=== PATIENT | female | born 1935 | race Caucasian/White ===

== ENCOUNTER 2022-09-08 06:47 | Outpatient (RCR) | payer MEDICARE, OTHER, SELFPAY | END 2022-10-06 23:59 | disposition home or self-care (01) | LOC: MM 06:47 | PROVIDERS: PCP Family Medicine; Visit Provider Internal Medicine | DX: Z51.81 Encounter for therapeutic drug level monitoring (principal); Z79.01 Long term (current) use of anticoagulants; I48.0 Paroxysmal atrial fibrillation | CPT/HCPCS: 85610; G0463 ==

== ENCOUNTER 2022-10-12 09:06 | Outpatient (RCR) | payer MEDICARE, OTHER, SELFPAY | END 2022-11-06 16:59 | disposition home or self-care (01) | LOC: MM 09:06 | PROVIDERS: PCP Internal Medicine; Visit Provider Internal Medicine | DX: Z51.81 Encounter for therapeutic drug level monitoring (principal); Z79.01 Long term (current) use of anticoagulants; I48.91 Unspecified atrial fibrillation | CPT/HCPCS: 85610; G0463 ==

== ENCOUNTER 2022-11-07 09:24 | Outpatient (RCR) | payer MEDICARE, OTHER, SELFPAY | END 2022-12-07 17:35 | disposition home or self-care (01) | LOC: MM 09:24 | PROVIDERS: Visit Provider Internal Medicine | DX: Z51.81 Encounter for therapeutic drug level monitoring (principal); Z79.01 Long term (current) use of anticoagulants; I48.91 Unspecified atrial fibrillation | CPT/HCPCS: 85610; G0463 ==

== ENCOUNTER 2022-11-13 15:06 | Outpatient (OUT) | payer MEDICARE, OTHER, SELFPAY ==
[2022-11-13 15:38] LABS: Basophils Percent Auto 0.5 % (0.2-2.0); Bilirubin Urine NEGATIVE (NEGATIVE); Blood Urine NEGATIVE (NEGATIVE); Clarity Urine CLEAR (CLEAR); Color Urine LT. YELLOW (YELLOW); Eosinophils Absolute Auto 0.1 10^3/uL (0.0-0.7); Eosinophils Percent Auto 0.8 % (0.9-7.0); Glucose Urine UA NEGATIVE (NEGATIVE); Hematocrit 40.4 % (36.0-48.0); Hemoglobin 13.5 g/dL (12.0-16.0); Immature Granulocytes Abs Auto 0.03 10^3/uL (0.00-0.03); Immature Granulocytes Pct Auto 0.5 % (0.0-0.5); Ketones Urine NEGATIVE (NEGATIVE); Leukocyte Esterase Urine NEGATIVE (NEGATIVE); Lymphocytes Percent Auto 16.7 % (20.5-60.0); Mean Corpuscular HGB Conc 33.4 g/dL (29.9-35.2); Mean Corpuscular Volume 95.7 fL (81.0-99.0); Mean Platelet Volume 9.8 fL (9.5-13.5); Monocytes Absolute Auto 0.5 10^3/uL (0.3-0.8); Monocytes Percent Auto 7.5 % (1.7-12.0); Neutrophils Absolute Auto 4.5 10^3/uL (1.4-6.5); Nitrite Urine NEGATIVE (NEGATIVE); Platelet Count 199 10^3/uL (150-450); Protein Urine NEGATIVE (NEG/TRACE); Red Blood Count 4.22 10^6/uL (4.20-5.40); Red Cell Distribution Width 14.6 % (11.0-15.0); Urobilinogen Urine 0.2 EU/dL (0.2-1.0)
[2022-11-13 15:44] LABS: Bacteria Urine NONE SEEN #/HPF (NONE SEEN); Cast Seen? NONE SEEN #/LPF (NONE SEEN); Crystals Seen? None Seen #/HPF (None Seen); Mucus Urine NONE SEEN (NONE SEEN); RBC Urine NONE SEEN #/HPF (0-2); Squamous Epithelial Cell Urine RARE #/LPF (NONE/RARE); Urine Culture Indicated ALREADY ORDERED; WBC Urine NONE SEEN #/HPF (NONE SEEN)
[2022-11-13 16:01] LABS: Alanine Aminotransferase 34 U/L (14-59); Albumin Globulin Ratio 1.2; Albumin Level 4.2 g/dL (3.4-5.0); Alkaline Phosphatase 73 U/L (46-116); Anion Gap 9.9; Aspartate Amino Transferase 29 U/L (15-37); BUN Creatinine Ratio 16.7; Bilirubin Total 0.6 mg/dL (0.2-1.0); Calcium 8.8 mg/dL (8.5-10.1); Carbon Dioxide 30.3 mmol/L (21.0-32.0); Chloride 96 mmol/L (98-107); Estimated GFR (African America 46 (>=60); Estimated GFR (Non-African Ame 38 (>=60); Globulin 3.6 g/dL; Glucose 120 mg/dL (74-106); Potassium 4.2 mmol/L (3.5-5.1); Sodium 132 mmol/L (136-145); Thyroid Stimulating Hormone 6.637 uIU/mL (0.358-3.740); Total Protein 7.8 g/dL (6.4-8.2)
== END 2022-11-13 15:07 | disposition home or self-care (01) ==
PROVIDERS: PCP Family Medicine; Visit Provider Family Medicine
DX: I25.10 Atherosclerotic heart disease of native coronary artery without angina pectoris (principal); N39.0 Urinary tract infection, site not specified; R06.02 Shortness of breath; D64.9 Anemia, unspecified; E55.9 Vitamin D deficiency, unspecified; I11.0 Hypertensive heart disease with heart failure; I50.30 Unspecified diastolic (congestive) heart failure
CPT/HCPCS: 36415; 80053; 81001; 82306; 83540; 83880; 84436; 84443; 84481; 85025; 87086

== ENCOUNTER 2022-11-27 10:53 | Outpatient (REF) | payer MEDICARE, OTHER, SELFPAY ==
[2022-11-27 12:14] LABS: INR 1.39; Prothrombin Time 14.5 sec (9.0-11.6)
== END 2022-11-27 10:54 | disposition home or self-care (01) ==
LOC: LAB 10:53
PROVIDERS: PCP Family Medicine
DX: Z79.01 Long term (current) use of anticoagulants (principal)
CPT/HCPCS: 36415; 85610

== ENCOUNTER 2022-11-29 01:58 | Outpatient (REF) | payer MEDICARE, OTHER, SELFPAY ==
[2022-11-29 18:46] LABS: INR 1.86
== END 2022-11-29 01:59 | disposition home or self-care (01) ==
LOC: LAB 01:58
PROVIDERS: PCP Family Medicine; Visit Provider Family Medicine
DX: Z79.01 Long term (current) use of anticoagulants (principal)
CPT/HCPCS: 36415; 85610

== ENCOUNTER 2022-11-29 07:11 | Outpatient (RCR) | payer MEDICARE, OTHER, SELFPAY ==
--- NOTE | 2022-10-24 15:02 | CR1_ITS ---
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
--- NOTE | 2022-11-22 12:42 | CR1_ITS ---
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
--- NOTE | 2022-12-19 14:32 | CR1_ITS ---
The 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
--- NOTE | 2023-01-16 08:17 | CR1_ITS ---
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
== END 2023-02-27 07:16 | disposition home or self-care (01) ==
LOC: CR 07:11
PROVIDERS: PCP Internal Medicine; Visit Provider Internal Medicine Cardiovascular Disease
DX: I25.10 Atherosclerotic heart disease of native coronary artery without angina pectoris (principal); Z95.5 Presence of coronary angioplasty implant and graft; I42.9 Cardiomyopathy, unspecified
CPT/HCPCS: 93798

== ENCOUNTER 2022-12-01 04:21 | Outpatient (REF) | payer MEDICARE, OTHER, SELFPAY ==
[2022-12-01 11:10] LABS: INR 1.92; Prothrombin Time 19.6 sec (9.0-11.6)
== END 2022-12-01 04:22 | disposition home or self-care (01) ==
LOC: LAB 04:21
PROVIDERS: PCP Family Medicine; Visit Provider Family Medicine
DX: Z79.01 Long term (current) use of anticoagulants (principal)
CPT/HCPCS: 36415; 85610

== ENCOUNTER 2022-12-06 03:27 | Outpatient (REF) | payer MEDICARE, OTHER, SELFPAY ==
[2022-12-06 09:46] LABS: INR 1.87; Prothrombin Time 19.1 sec (9.0-11.6)
== END 2022-12-06 03:28 | disposition home or self-care (01) ==
LOC: LAB 03:27
PROVIDERS: PCP Family Medicine; Visit Provider Family Medicine
DX: Z79.01 Long term (current) use of anticoagulants (principal)
CPT/HCPCS: 36415; 85610

== ENCOUNTER 2022-12-08 10:24 | Outpatient (RCR) | payer MEDICARE, OTHER, SELFPAY | END 2023-01-05 16:53 | disposition home or self-care (01) | LOC: MM 10:24 | PROVIDERS: PCP Family Medicine; Visit Provider Internal Medicine | DX: Z51.81 Encounter for therapeutic drug level monitoring (principal); Z79.01 Long term (current) use of anticoagulants; I48.91 Unspecified atrial fibrillation | CPT/HCPCS: 85610; G0463 ==

== ENCOUNTER 2023-01-08 01:55 | Outpatient (RCR) | payer MEDICARE, OTHER, SELFPAY | END 2023-02-06 17:25 | disposition home or self-care (01) | LOC: MM 01:55 | PROVIDERS: PCP Family Medicine; Visit Provider Internal Medicine | DX: Z51.81 Encounter for therapeutic drug level monitoring (principal); Z79.01 Long term (current) use of anticoagulants; I48.91 Unspecified atrial fibrillation | CPT/HCPCS: 85610; G0463 ==

== ENCOUNTER 2023-01-26 07:34 | Outpatient (RCR) | payer MEDICARE, OTHER, SELFPAY ==
[2023-01-26 13:00] VITALS: BP 150/90; PULSE 60; RESP 20; TEMP 36; O2SAT 97
[2023-01-26 13:33] LABS: Calcium 9.6 mg/dL (8.5-10.1); Estimated GFR (African America 56 (>=60); Estimated GFR (Non-African Ame 46 (>=60)
[2023-01-26] MEDS: DENOSUMAB 60 MG/ML SYRINGE SUBQ (13:44)
== END 2023-01-26 13:49 | disposition home or self-care (01) ==
LOC: INF 07:34
PROVIDERS: PCP Family Medicine; Visit Provider Family Medicine
DX: M81.0 Age-related osteoporosis without current pathological fracture (principal)
CPT/HCPCS: 36415; 82310; 82565; 96372; J0897

== ENCOUNTER 2023-02-07 00:41 | Outpatient (RCR) | payer MEDICARE, OTHER, SELFPAY | END 2023-03-08 16:41 | disposition home or self-care (01) | LOC: MM 00:41 | PROVIDERS: PCP Family Medicine; Visit Provider Internal Medicine | DX: Z51.81 Encounter for therapeutic drug level monitoring (principal); Z79.01 Long term (current) use of anticoagulants; I48.91 Unspecified atrial fibrillation | CPT/HCPCS: 85610; G0463 ==

== ENCOUNTER 2023-03-09 09:54 | Outpatient (RCR) | payer MEDICARE, OTHER, SELFPAY | END 2023-04-06 15:40 | disposition home or self-care (01) | LOC: MM 09:54 | PROVIDERS: PCP Family Medicine; Visit Provider Internal Medicine | DX: Z51.81 Encounter for therapeutic drug level monitoring (principal); Z79.01 Long term (current) use of anticoagulants; I48.91 Unspecified atrial fibrillation | CPT/HCPCS: 85610; G0463 ==

== ENCOUNTER 2023-04-09 01:40 | Outpatient (RCR) | payer MEDICARE, SELFPAY | END 2023-05-09 17:10 | disposition home or self-care (01) | LOC: MM 01:40 | PROVIDERS: PCP Family Medicine; Visit Provider Internal Medicine | DX: Z51.81 Encounter for therapeutic drug level monitoring (principal); Z79.01 Long term (current) use of anticoagulants; I48.0 Paroxysmal atrial fibrillation | CPT/HCPCS: 85610; G0463 ==

== ENCOUNTER 2023-04-20 13:57 | Outpatient (OUT) | payer MEDICARE, SELFPAY ==
--- NOTE | 2023-04-20 14:05 | XR_ITS ---
The [address] [address] Patient Name: MAGGIE CANALES MRN: [id number] date: 1935 Sex: F Assigned Patient Location: [facility] Current Patient Location: [facility] Accession/Order Number: [id number] Exam Date: 04/20/2023 14:15 Report Date: 04/20/2023 15:03 At the request of: LOS CHAUDHARY Procedure: XR lumbar spine 2-3V EXAM: XR lumbar spine 2-3V, XR hip RT 2V w/ pelvis HISTORY: Hip Arthritis, M19.90. Low back pain. COMPARISON: None. TECHNIQUE: 3 views of the lumbar spine were obtained to include AP, lateral, and directed lateral lumbosacral views. FINDINGS: No ribs at the T12 level. Mild depression of the superior endplate of L3 which may be chronic and degenerative in nature, acute or subacute compression fracture would be less likely though difficult to exclude entirely. Correlate clinically. Follow-up as needed. Hxtc-zn-zhuikywz disc space narrowing from T11-T12 to L2-L3 with narrowing at L4-L5 and L5-S1. Mild to moderate anterior spurring at multiple levels. Mild convexity of the lower thoracic and lumbar spine to the left. Findings compatible with vascular calcifications in the left upper quadrant of the abdomen. TECHNIQUE: Two-view right hip and AP view pelvis study was performed with 3 images obtained in total. FINDINGS: Moderate degenerative changes about the right hip joint. Jize-nt-ptantnod degenerative changes about the left hip joint. Stabilizing domonique and pin at the visualized proximal femoral level unremarkable in appearance. Sacroiliac joints appear grossly unremarkable. Alnn-qw-vapcpzcq degenerative changes in the lumbar spine with mild convexity to the left. Soft tissues are grossly within normal limits. XR/XR lumbar spine 2-3V IMPRESSION: Lumbar spine study demonstrates degenerative changes as described. Mild depression of the superior endplate of L3 which may be chronic and degenerative in nature, acute or subacute compression fracture would be less likely though difficult to exclude entirely. Correlate clinically. Follow-up as needed. Right hip and AP view pelvis study demonstrates degenerative and postoperative changes as noted. Follow-up as needed. Electronically authenticated by: DAMIEN JONES Date: 04/20/2023 15:03
--- NOTE | 2023-04-20 14:05 | XR_ITS ---
The [address] [address] Patient Name: MAGGIE CANALES MRN: [id number] date: 1935 Sex: F Assigned Patient Location: [facility] Current Patient Location: [facility] Accession/Order Number: [id number] Exam Date: 04/20/2023 14:15 Report Date: 04/20/2023 15:03 At the request of: LOS CHAUDHARY Procedure: XR hip RT 2V w/ pelvis EXAM: XR lumbar spine 2-3V, XR hip RT 2V w/ pelvis HISTORY: Hip Arthritis, M19.90. Low back pain. COMPARISON: None. TECHNIQUE: 3 views of the lumbar spine were obtained to include AP, lateral, and directed lateral lumbosacral views. FINDINGS: No ribs at the T12 level. Mild depression of the superior endplate of L3 which may be chronic and degenerative in nature, acute or subacute compression fracture would be less likely though difficult to exclude entirely. Correlate clinically. Follow-up as needed. Rjpc-hl-sbaomsza disc space narrowing from T11-T12 to L2-L3 with narrowing at L4-L5 and L5-S1. Mild to moderate anterior spurring at multiple levels. Mild convexity of the lower thoracic and lumbar spine to the left. Findings compatible with vascular calcifications in the left upper quadrant of the abdomen. TECHNIQUE: Two-view right hip and AP view pelvis study was performed with 3 images obtained in total. FINDINGS: Moderate degenerative changes about the right hip joint. Dcqz-mt-qnbdrbvz degenerative changes about the left hip joint. Stabilizing domonique and pin at the visualized proximal femoral level unremarkable in appearance. Sacroiliac joints appear grossly unremarkable. Qqdb-nq-nqitcyie degenerative changes in the lumbar spine with mild convexity to the left. Soft tissues are grossly within normal limits. XR/XR hip RT 2V w/ pelvis IMPRESSION: Lumbar spine study demonstrates degenerative changes as described. Mild depression of the superior endplate of L3 which may be chronic and degenerative in nature, acute or subacute compression fracture would be less likely though difficult to exclude entirely. Correlate clinically. Follow-up as needed. Right hip and AP view pelvis study demonstrates degenerative and postoperative changes as noted. Follow-up as needed. Electronically authenticated by: DAMIEN JONES Date: 04/20/2023 15:03
--- OUTSIDE RECORDS SUMMARY | 2023-04-20 14:06 | XMS_ITS | CCD ---
Author Name Unknown Address [address] [place] [address] Organization [facility] Care Team Providers Care Shipping And Receiving Assistant Name Role Phone JUSTIN BROWN Unavailable Unavailable JUSTIN BROWN Unavailable Unavailable Summer Tidwell Unavailable Unavailable Unavailable HARPREET Tidwell Primary Care Provider [phone] DO Pramod Bess Emergency Provider DO Guillermo Sanders Emergency Provider MD Stephanie Locke Jr Emergency Provider Al MD Nguyễn Askew Admit Provider Al MD Nguyễn Askew Attending Provider MD Kale Ross Attending Provider [phone] DO Matt Servin Other Provider MD Akhil Olivarez Attending Provider MD Doug Montana Attending Provider DO Myron Villarreal Emergency Provider Los Chaudhary Primary Care Physician [phone] HARPREET Tidwell Primary Care Provider MD Akhil Olivarez Attending Provider LYNN Zimmerman Attending Provider Los Chaudhary Unavailable HARPREET Tidwell Breonna Primary Care Provider MD Akhil Olivarez Attending Provider LYNN Zimmerman Attending Provider DR LOS MEANS Primary Care Unavailable FAWWAD, REIS H Admitting Unavailable FAWWAD, REIS H Attending Unavailable FAWWAD, REIS H Attending Unavailable YAW, SUMMER Primary Care Unavailable FAWWAD, REIS H Admitting Unavailable FAWWAD, REIS H Attending Unavailable YAW, SUMMER Primary Care Unavailable FAWWAD, REIS H Admitting Unavailable HOY ., DR MADISON Admitting Unavailable HOY ., DR MADISON Attending Unavailable HOY ., DR MADISON Consulting Unavailable YAW, SUMMER Primary Care Unavailable ALAMO-JAMES, MICKEY Admitting Unavailable HOY ., DR MADISON Primary Care Unavailable CALLY-JAMES, MICKEY Attending Unavailable CALLY-JACOB, MICKEY Consulting Unavailable HOY ., DR MADISON Attending Unavailable HOY ., DR MADISON Admitting Unavailable YAW, SUMMER Primary Care Unavailable YAW, SUMMER Admitting Unavailable YAW, SUMMER Attending Unavailable YAW, SUMMER Consulting Unavailable YAW, SUMMER Primary Care Unavailable FAWWAD, REIS H Attending Unavailable YAW, SUMMER Primary Care Unavailable FAWWAD, REIS H Admitting Unavailable YAW, SUMMER Primary Care Unavailable FAWWAD, REIS H Attending Unavailable FAWWAD, REIS H Admitting Unavailable FAWWAD, REIS H Admitting Unavailable FAWWAD, REIS H Attending Unavailable YAW, SUMMER Primary Care Unavailable FAWWAD, REIS H Attending Unavailable YAW, SUMMER Primary Care Unavailable FAWWAD, REIS H Admitting Unavailable YAW, SUMMER Primary Care Unavailable FAWWAD, REIS H Attending Unavailable FAWWAD, REIS H Admitting Unavailable FAWWAD, REIS H Admitting Unavailable HOY ., DR MADISON Primary Care Unavailable FAWWAD, REIS H Attending Unavailable YAW, SUMMER Primary Care Unavailable FAWWAD, REIS H Attending Unavailable FAWWAD, REIS H Admitting Unavailable HOY ., DR MADISON Admitting Unavailable HOY ., DR MADISON Attending Unavailable HOY ., DR MADISON Consulting Unavailable YAW, SUMMER Primary Care Unavailable HOY ., DR MADISON Admitting Unavailable YAW, SUMMER Primary Care Unavailable HOY ., DR MADISON Attending Unavailable FAWWAD, REIS H Attending Unavailable YAW, SUMMER Primary Care Unavailable FAWWAD, REIS H Admitting Unavailable YAW, SUMMER Primary Care Unavailable YAW, SUMMER Admitting Unavailable YAW, SUMMER Attending Unavailable YAW, SUMMER Consulting Unavailable [id number], [id number] Attending Unavailable Deidre, Dr. Los Carr Primary Care Unavail able Yaw, BILL COLLECTOR-C Summer Breonna Primary Care Provider [phone] DO Pearl Michel Attending Provider MD Los Chaudhary Primary Care Provider [phone] DO Philip Thompson Emergency Provider MD Jamie Hathaway Admit Provider MD Jamie Hathaway Attending Provider DO Philip molina Emergency Provider MD Jamie Hathaway Admit Provider [phone] MD Danilo Drummond Attending Provider MD Akhil Olivarez Attending Provider Los Chaudhary MD Primary Care Provider [phone] Dr. Akhil Michel Attending Unava ilable Deidre, Dr. Los Carr Primary Care Unavail able Deidre, Dr. Los Carr Primary Care Unavail able Jacob, MsRadha Alamo Attending Jamari James, Ms. Mickey Alamo Referring Jamari Chaudhary, Dr. Los Carr Primary Care Unavail able Sher ELLIOTT, Dr. Akhil Higginbotham Attending Unavailable McGuinn II, Dr. Akhil Higginbotham Referring Unavailable Deidre, Dr. Los Carr Primary Care Unavail able Sher ELLIOTT, Dr. Akhil Higginbotham Attending Unavailable Sher ELLIOTT, Dr. Akhil Higginbotham Referring Unavailable James, MsRadha Alamo Attending Jamari James, Ms. Mickey Alamo Referring Unavai campbellle Deidre, Dr. Los Carr Primary Care Unavail able McGuinn II, Dr. Akhil Higginbotham Attending Unavailable McGuinn II, Dr. Akhil Higginbotham Referring Unavailable Hoy, Dr. Los Carr Primary Care Unavail able McGuinn II, Dr. Akhil Higginbotham Attending Unavailable McGuinn II, Dr. Akhil Higginbotham Referring Unavailable Honhi, Dr. Los Carr Primary Care Unavail able McGuinn II, Dr. Akhil Higginbotham Attending Unavailable McGuinn II, Dr. Akhil Higginbotham Referring Unavailable Hoy, Dr. Los Carr Primary Care Unavail able Deidre, Dr. Los Carr Primary Care Unavail able Hoy, Dr. Los Carr Primary Care Unavail able Deidre, Dr. Los Carr Primary Care Unavail able McGuinn II, Dr. Akhil Higginbotham Attending Unavailable Deidre, Dr. Los Carr Primary Care Unavail able Deidre, Dr. Los Carr Primary Care Unavail able Deidre, Dr. Los Carr Primary Care Unavail able Anand, Dr. Akhil Boyer Attending Unava ilable Deidre, Dr. Los Carr Primary Care Unavail able Deidre, Dr. Los Carr Primary Care Unavail able MD Los Chaudhary Primary Care Provider [phone] DO Philip Thompson Emergency Provider [phone] MD Jamie Hathaway Admit Provider [phone] MD Danilo Drummond Attending Provider MD Akhil Olivarez Attending Provider Los Chaudhary MD Primary Care Provider MICKEY JAMES Attending Unavailable LOS CHAUDHARY Primary Care Unavailable Jamie Hathaway Admitting Unavailable Ashely Arguelles Consulting Unavailable Los Chaudhary Primary Care Unavailable Danilo Drummond Attending Unavailable Pearl Michel Consulting Unavailable Bg Nation Consulting Unavailable Akhil Olivarez Consulting Unavail able Millie Drew Consulting Unavailable Lyle Lane Consulting Unavailab Mickey Banuelos Consulting Unavailable Pretty Cheema Consulting Unavailable Joanne Barnes Consulting Unavailab Leslye Barron Consulting Unavailable Joanne Montes Consulting Unavailable Patricia Lawson Consulting Unavailable Pearl Michel Admitting Unavailable Pearl Michel Attending Unavailable Sumany, Los M Primary Care Unavailable Akhil Olivarez Attending Unavail able [place], Los M Primary Care Unavailable McGuinnAkhil Admitting Unavail able Yaw, Smumer Breonna Primary Care Unavailable Akhil Olivarez Admitting Unavail able Akhil Olivarez Attending Unavail able Elizabeth Zimmerman Admitting Unavailab le Elizabeth Zimmerman Attending Unavailab le Yaw, Summer Ravi Primary Care Unavailable Hoy, Los M Primary Care Unavailable McGuinAkhil avitia Admitting Unavail able Akhil Olivarez Attending Unavail able Pearl Michel Admitting Unavailable AnandPearl Attending Unavailable Hoy, Los M Primary Care Unavailable REFERRAL, SELF Admitting Unavailable REFERRAL, SELF Attending Unavailable REFERRAL, SELF Referring Unavailable Los Chaudhary Consulting Unavailable MD Los Chaudhary Consulting Unavailable SHWETA SOL Attending Unavailable SHWETA SOL Referring Unavailable HOY, LOS M Primary Care Unavailable SHWETA SOL Referring Unavailable HOY, LOS M Primary Care Unavailable HOY, LOS M Primary Care Unavailable SHWETA SOL Attending Unavailable Allergies Allergy Classification Reported Allergen(s) Allergy Type Date of Onset Reaction(s) Facility (20 sources) ibuprofen; Translations: [ibuprofen] Drug Allergy 3 Unknown (qualifier value), Unknown, [facility] Repository (20 sources) Hmg-Coa Reductase Inhibitors (Statins); Translations: [Statins] Allergy to drug (finding) Myalgia, Other [facility] Repository (20 sources) Ibuprofen; Translations: [Motrin TABS] Drug Allergy Hives [facility] 600 DO Work Phone: (20 sources) Beta-Adrenergic Germán; Translations: [Beta Adrenergic Blockers] Allergy to drug (finding) Bradycardia [facility] [facility] 250 DO Work Phone: (2 sources) HMG-CoA reductase inhibitor; Translations: [statins] Drug allergy Walking disability (finding) [facility] (2 sources) Ibuprofen; Translations: [Motrin] Drug Allergy 2 [facility] Repository (5 sources) HMG-CoA reductase inhibitor; Translations: [PQUJOZX-IAI-AY A REDUCTASE INHIBITORS] Drug Intolerance 3 Other: See Comments, Myalgia, Other [facility] (2 sources) beta-Blocking agent; Translations: [BETA-BLOCKERS (BETA-ADRENERGI C BLOCKING AGTS)] Drug Allergy [address] [facility] Medications Current Medications Medication Drug Class(es) Dates Sig (Normalized) Sig (Original) 8 hr acetaminophen 650 mg extended release oral tablet (20 sources) Start: 11-24-2022 take 650 mg by mouth twice daily Acetaminophen Active 650 MG PO Twice daily 60 November 24, 2022 9:51am Start: 09-22-2022 End: 11-24-2022 take 1300 mg by mouth twice daily Acetaminophen Discontinued 1300 MG PO Twice daily September 21, 2022 11:00pm November 24, 2022 9:53am Start: 04-03-2017 End: 09-22-2022 take 650 mg by mouth every four hours Acetaminophen Discontinued 650 MG PO Q4H 0 April 03, 2017 12:00am September 22, 2022 8:04am amiodarone hydrochloride 200 mg oral tablet (20 sources) Antiarrhythmic Start: 11-23-2022 End: 11-23-2022 take 100 mg by mouth once daily Amiodarone Active 100 MG PO Daily 30 November 24, 2022 9:51am Start: 07-07-2022 take 1 tablet by rosibel th once daily amiodarone (Pacerone) 200 mg tablet Indications: Paroxysmal atrial fibrillation (CMS/HCC) Take 1 tablet (200 mg) by mouth once daily. 90 tablet 1 01/23/2023 Active Start: 04-14-2022 take 0.5 tablet by m outh twice daily Amiodarone HCl - 200 MG Oral Tablet TAKE 1/2 TABLET TWICE DAILY Quantity: 90 Refills: 1 Ordered: 14-Apr-2022 Akhil Olivarez MD Start : 14-Apr-2022 Active Start: 01-10-2022 End: 11-24-2022 take 100 mg by mouth twice daily Amiodarone Discontinued 100 MG PO Twice daily January 09, 2022 11:00pm November 24, 2022 9:53am Start: 10-28-2021 End: 01-10-2022 take 200 mg by mouth twice daily Amiodarone Discontinued 200 MG PO Twice daily October 27, 2021 11:00pm January 10, 2022 4:48pm Start: 03-01-2021 take 0.5 tablet by m outh once daily Amiodarone HCl - 200 MG Oral Tablet take 1/2 tablet by mouth daily Quantity: 45 Refills: 1 Ordered: 02-Mar-2021 Akhil Olivarez MD Start : 01-Mar-2021 Active take 0.5 tablet by m outh twice daily Amiodarone HCl - 200 MG Oral Tablet TAKE 0.5 TABLET Twice daily Quantity: 0 Refills: 0 Ordered: 07-Feb-2022 DO Active Comment on above: Take 200 mg by mouth . apple cider vinegar 500 mg oral tablet (14 sources) Start: 11-26-2019 take 500 mg by mouth once daily Apple Cider Vinegar Active 500 MG PO Daily November 25, 2019 11:00pm ascorbic acid 1000 mg oral tablet (20 sources) Vitamin C Start: 09-22-2022 take 2 tablets by mouth twice daily Ascorbic Acid (Vitamin C) (Vitamin C) 1,000 mg Tablet Active 2000 MG PO Twice daily September 21, 2022 11:00pm Start: 11-26-2019 End: 09-22-2022 Ascorbic Acid (Vitamin C) (V itamin C) 500 mg tablet Discontinued 4000 MG PO November 26, 2019 3:18pm September 22, 2022 8:07am Start: 04-03-2017 End: 11-26-2019 take 1 tablet by mouth once daily Ascorbic Acid (Vitamin C) (Vitamin C) 500 mg Tablet Discontinued 500 MG PO Daily 0 April 03, 2017 12:00am November 26, 2019 3:18pm aspirin 81 mg chewable tablet (20 sources) Platelet Aggregation Inhibitor, Nonsteroidal Anti-inflammatory Drug Start: 02-26-2023 take 1 tablet by mouth two times weekly aspirin 81 mg chewable tablet Indications: Arteriosclerosis of coronary artery Take one tablet by mouth twice a week 30 tablet 11 02/26/2023 Active Start: 09-22-2022 take 81 mg by mouth two times weekly Aspirin Active 81 MG PO Twice a Week September 21, 2022 11:00pm Start: 10-25-2021 End: 09-22-2022 take 81 mg by mouth two times weekly Aspirin Discontinued 81 MG PO Twice a Week October 24, 2021 11:00pm September 22, 2022 8:07am 2X WEEKLY, SUNDAY AND SUNDAY Start: 10-25-2021 take 81 mg by mouth every week Aspirin Active 81 MG PO As Directed October 25, 2021 12:00am 2X WEEKLY, SUNDAY AND SUNDAY Start: 10-30-2018 End: 10-25-2021 take 1 mg by mouth once daily aspirin 325 mg Tab mg ta b(s), Oral, Daily, Refills(s) 0 Start Date: 10/30/18 Status: Ordered Start: 09-18-2018 take 1 tablet by rosibel th once daily aspirin 325 mg Oral EC Tab 325 mg = 1 tab(s), Oral, Daily, Refills(s) 0 Start Date: 09/18/18 Status: Ordered Aspirin EC 81 MG TBEC TAKE 1 TABLET DAILY TWICE WEEKLY. Quantity: 90 Refills: 3 Ordered: 28-Nov-2021 Akhil Olivarez MD Active Calcium (2 sources) Phosphate Binder, Calcium Start: 10-30-2018 calcium 500 mg tablet mg tab(s), Chewed, Daily, Refills(s) 0 Start Date: 10/30/18 Status: Ordered calcium carbonate 1500 mg oral tablet (20 sources) Start: 11-26-2019 take 1 tablet by mouth twice daily Calcium Carbonate (Calcium 600) 600 mg calcium (1,500 mg) Tablet Active 600 MG PO Twice daily November 25, 2019 11:00pm Calcium 600 MG T ABS TAKE 2 TABLET Daily Quantity: 0 Refills: 0 Ordered: 05-Jul-2022 DO Active Calcium 600 MG T ABS TAKE 1 TABLET DAILY. Quantity: 0 Refills: 0 Ordered: 15-Apr-2021 DO Active Jvbrkqnur-Lrbutswe-Oeu-Hyalu r (Joint Health) 40-10-5-3.3 mg Tablet (6 sources) Start: 09-22-2022 take 1 tablet by mouth once daily Khidghdot-Isynrrup-Qtc-Hyalur (Joint Health) 40-10-5-3.3 mg Tablet Active 1 TAB PO Daily September 21, 2022 11:00pm Start: 09-22-2022 take 1 tablet by rosibel th once daily Synzwdbdp-Zlqbtdlx-Myj-Hyalur (Joint a [facility]) 40-10-5-3.3 mg Tablet Active 1 TAB PO Daily September 22, 2022 12:00am carvedilol 6.25 mg oral tablet (20 sources) alpha-Adrenergic Germán, beta-Adrenergic Germán Start: 03-14-2017 End: 11-26-2019 take 12.5 mg by mouth twice daily Carvedilol Discontinued 12.5 MG PO Twice daily 0 April 03, 2017 12:00am November 26, 2019 3:14pm Start: 10-29-2012 take 1 mg by mouth twice daily Coreg 6.25 mg Tab mg tab(s), Oral, BID, Refills(s) 0 Start Date: 09/18/18 Status: Ordered Comment on above: Take 1 tablet by rosibel twice daily. cholecalciferol 0.05 mg oral tablet (20 sources) Vitamin D Start: 11-26-19 take 1 tablet by mouth once daily Cholecalciferol (Vitamin D3) (Vitamin D3) 50 mcg (2,000 unit) Tablet Active 50 MCG PO Daily November 25, 2019 11:00pm take 1 capsule by mouth once shelly ly cholecalciferol (Vitamin D-3) 50 mcg (2,000 unit) capsule Take 1 capsule (50 mcg) by mouth once daily. 0 Active clindamycin 300 mg oral capsule (3 sources) Lincosamide Antibacterial Start: 11-23-2022 take 600 mg by mouth three times daily Clindamycin Hcl Active 600 MG PO Three times daily 12 2 November 22, 2022 11:00pm clopidogrel 75 mg oral tablet (13 sources) P2Y12 Platelet Inhibitor Start: 09-25-2022 Clopidogrel (Plavix) 75 mg tablet Active 75 MG PO Daily 90 September 24, 2022 11:00pm Discontinue Brilinta after 30 days and then initiate clopidogrel daily cobamamide 0.1 mg / vitamin b12 5 mg sublingual tablet (5 sources) Vitamin B12 Start: 09-25-2022 Cyanocobalamin -Cob amamide (B12) 5,000-100 mcg Lozenge Active 1 LOZENGE LOZENGE Daily September 24, 2022 11:00pm Start: 09-25-2022 Cyanocobalamin -Cobamamide (B12) 5,000-100 mcg Lozenge Active 1 LOZENGE SUBLINGUAL Daily September 25, 2022 12:00am digoxin 0.125 mg oral tablet (20 sources) Cardiac Glycoside Start: 09-18-2018 take 1 tablet by mouth once daily digoxin 125 mcg (0.125 mg) Tab microgram tab(s), Oral, Daily, Refills(s) 0 Start Date: 09/18/18 Status: Ordered Start: 03-14-2017 End: 01-10-2022 take 125 ug by mouth once daily Digoxin Discontinued 125 MCG PO Daily 0 April 03, 2017 12:00am January 10, 2022 4:50pm Comment on above: Take 0.125 mg by rosibel th. docosahexaenoic acid 120 mg / eicosapentaenoic acid 180 mg oral capsule (20 sources) take 1 capsule by mouth once daily fish oil concentrate ([place]-3) 120-180 mg capsule Take 1 capsule (1 g) by mouth once daily. 0 Active take 1 capsule by mouth once shelly ly Fish Oil 1000 MG Oral Capsule TAKE 1 CAPSULE Daily Quantity: 0 Refills: 0 Ordered: 05-Jul-2022 DO Active take 1 capsule by mouth twice da amber Fish Oil 1000 MG Oral Capsule Take 1 capsule twice daily Quantity: 0 Refills: 0 Ordered: 21-Sep-2021 DO Active oxyquinoline sulfate 0.50910 mg/mg / sodium dodecyl sulfate 0.0001 mg/mg vaginal gel (2 sources) Start: 02-20-2019 Trimo-Beal 0.025% vaginal gel with applicator See Instructions, 1 tube(s), Refill(s) 2, Use with cleaning of pessary, [id number] Start Date: 02/20/19 Status: Ordered Fish Oils (2 sources) Start: 10-30-2018 Fish Oil Oral, Refill(s) 0 Start Date: 10/30/18 Status: Ordered hydroCHLOROthiazide 12.5 mg / lisinopril 10 mg oral tablet (16 sources) Thiazide Diuretic, Angiotensin Converting Enzyme Inhibitor Start: 09-18-2018 take 1 tablet by mouth once daily hydrochlorothiazid e-lisinopril 12.5 mg-10 mg Tab 1 tab(s), Oral, Daily, Refill(s) 0 Start Date: 09/18/18 Status: Ordered Start: 03-14-2017 End: 04-03-2017 take 1 tablet by mouth once daily Lisinopril-Hydrochlorothiazide Discontin ued 1 TAB PO Daily March 14, 2017 12:00am April 03, 2017 7:39am 24 hr isosorbide mononitrate 60 mg extended release oral tablet (20 sources) Nitrate Vasodilator Start: 09-22-2022 take 60 mg by mouth once daily Isosorbide Mononitrate Active 60 MG PO Daily September 21, 2022 11:00pm Start: 07-05-2022 take 1 tablet by rosibel th once daily Isosorbide Mononitrate ER 30 MG Oral Tablet Extended Release 24 Hour TAKE 1 TABLET DAILY. Quantity: 90 Refills: 3 Ordered: 02-Aug-2022 [place] Jacob BAILEY-LAST IRONERMickey Start : 05-Jul-2022 Active when ready for next refill will get 90 days lisinopril 10 mg oral tablet (20 sources) Angiotensin Converting Enzyme Inhibitor Start: 09-01-2022 take 10 mg by mouth once daily Lisinopril Active 10 MG PO Daily September 21, 2022 11:00pm Start: 10-28-2021 End: 09-22-2022 take 2.5 mg by mouth once daily Lisinopril Discontinue d 2.5 MG PO Daily October 27, 2021 11:00pm September 22, 2022 8:09am Start: 04-03-2017 End: 10-28-2021 take 10 mg by mouth once daily Lisinopril Discontinued 10 MG PO Daily 0 April 03, 2017 12:00am October 28, 2021 1:10pm Start: 10-29-2012 take 2 tablets by mo mah once daily lisinopril 5 mg tablet Take 10 mg by mouth once daily. 0 10/29/2012 Active Comment on above: Take 10 mg by mouth once daily. mineral oil 0.2 mg/mg / petrolatum 0.8 mg/mg ophthalmic ointment (6 sources) Start: 09-22-2022 White Petrolatum-Mineral Oil (Soothe Night Time Lubricant) 80-20 % Ointment Active 1 APPLIC EYE-LEFT Daily September 21, 2022 11:00pm Multivitamin preparation (9 sources) Start: 01-10-2022 take 1 tablet by mouth once daily Multivitamin Active 1 TAB PO Daily January 09, 2022 11:00pm Start: 01-10-2022 take 1 tablet by rosibel th once daily Multivitamin Active 1 TAB PO Daily January 10, 2022 12:00am nitroglycerin 0.4 mg sublingual tablet (20 sources) Nitrate Vasodilator Start: 06-29-2022 Nitroglyce rin Active 0.4 MG SUBLINGUAL As Directed September 21, 2022 11:00pm Start: 06-27-2022 Nitroglycerin 0.4 MG Sublingual Tablet Sublingual TAKE DIRECTED. Quantity: 25 Refills: 11 Ordered: 29-Jun-2022 Akhil Olivarez MD Start : 27-Jun-2022 Active nortriptyline 25 mg oral capsule (20 sources) Tricyclic Antidepressant Start: 09-25-2022 take 25 mg by mouth once daily Nortriptyline Active 25 MG PO Daily September 24, 2022 11:00pm Start: 09-18-2018 take 25 mg by mouth once daily nortriptyline 25 mg, Oral, Daily, Refills(s) 0 Start Date: 09/18/18 Status: Ordered Start: 03-14-2017 End: 09-22-2022 take 25 mg by mouth once daily at bedtime Nortriptyline Discontinued 25 MG PO Daily at bedtime 0 April 03, 2017 12:00am September 22, 2022 8:09am [place] 0-Egn-Was-Fish Oil (Fish Oil) 1,000 mg (120 mg-180 mg) Capsule (14 sources) Start: 11-26-2019 take 1 capsule by mouth once daily [place] 8-Rac-Ltj-Fish Oil (Fish Oil) 1,000 mg (120 mg-180 mg) Capsule Active 1 CAP PO Daily November 25, 2019 11:00pm Start: 11-26-2019 take 1 capsule by [facility] once daily [place] 6-Onp-Efw-Fish Oil (Fish Oil) 1,000 mg (120 mg-180 mg) Capsule Active 1 CAP PO Daily November 26, 2019 12:00am Start: 11-26-2019 take 1 capsule by mo ut twice daily [place] 9-Scu-Ipw-Fish Oil (Fish Oil) 1,000 mg (120 mg-180 mg) Capsule Active 1 CAP PO Twice daily November 25, 2019 11:00pm Start: 11-26-2019 take 1 capsule by [facility] twice daily [place] 6-Aog-Iik-Fish Oil (Fish Oil) 1,000 mg (120 mg-180 mg) Capsule Active 1 CAP PO Twice daily November 26, 2019 12:00am pantoprazole 20 mg delayed release oral tablet (3 sources) Proton Pump Inhibitor Start: 11-24-2022 take 1 tablet by mouth once daily Pantoprazole (Protonix) 20 mg tablet,delayed release (DR/EC) Active 20 MG PO Daily 60 November 23, 2022 11:00pm Selenium (14 sources) Start: 11-26-2019 take 100 ug by mouth once daily Selenium Active 100 MCG PO Daily November 25, 2019 11:00pm Start: 11-26-2019 take 100 ug by mouth once thomas y Selenium Active 100 MCG PO Daily November 26, 2019 12:00am Selenium (2 sources) Start: 10-30-2018 selenium micro gram, Oral, Daily, Refills(s) 0 Start Date: 10/30/18 Status: Ordered torsemide 10 mg oral tablet (20 sources) Loop Diuretic Start: 07-19-2022 take 10 mg by mouth once daily Torsemide Active 10 MG PO Daily September 21, 2022 11:00pm Start: 11-26-2019 End: 09-22-2022 torsemide (DEMADEX) 5 mg tab let Take 5 mg by mouth. 0 11/26/2019 Active take 2 tablets by ok ut once daily in the morning Torsemide 5 MG Oral Tablet TAKE 2 TABLETS EVERY MORNING DAILY. Quantity: 0 Refills: 0 Ordered: 01-Jun-2022 DO Active Comment on above: Take 5 mg by mouth. vitamin B12 (3 sources) Vitamin B12 Start: 10-30-2018 Vitamin B12 Re fills(s) 0 Start Date: 10/30/18 Status: Ordered take 1 tablet by mouth once thomas y cyanocobalamin (Vitamin B-12) 100 mcg tablet Take 1 tablet (100 mcg) by mouth once daily. 0 Active Vitamin B6 (2 sources) Start: 10-30-2018 Vitamin B6 Shelly ly, Refills(s) 0 Start Date: 10/30/18 Status: Ordered Vitamin D3 (2 sources) Start: 10-30-2018 Vitamin D3 Ref ills(s) 0 Start Date: 10/30/18 Status: Ordered vitamin e 180 mg oral capsule (16 sources) Start: 11-26-2019 take 800 [IU] by mouth once daily Vitamin E Active 800 UNIT PO Daily November 25, 2019 11:00pm Start: 10-30-2018 vitamin E Oral , Daily, Refills(s) 0 Start Date: 10/30/18 Status: Ordered warfarin sodium 6 mg oral tablet (20 sources) Vitamin K Antagonist Start: 11-17-2022 take 3 mg by mouth once Warfarin Active 0 .ROUTE .COMPLEX November 16, 2022 11:00pm 3 mg orally EVERY SUNDAY, SUNDAY, SUNDAY AND SUNDAY Start: 11-17-2022 End: 11-17-2022 Warfarin Discontinued MG TAB LET November 16, 2022 11:00pm November 17, 2022 6:48pm Start: 07-23-2022 warfarin (COUM MATY) 6 mg tablet Take 2.5 mg by mouth. 0 07/23/2022 Active Start: 10-25-2021 End: 09-22-2022 take 6 mg by mouth once Warfarin Active 6 MG PO ever y Sunday, Sunday, and Wednesday September 21, 2022 11:00pm take 1 tablet by mouth once warf angus (Coumadin) 3 mg tablet Take 1 tablet (3 mg) by mouth see administration instructions. Per the [facility] 0 Active Comment on above: Take 2.5 mg by mouth . Completed/Discontinued Medications Medication Drug Class(es) Dates Sig (Normalized) Sig (Original) acetaminophen 325 mg / oxyCODONE hydrochloride 5 mg oral tablet (20 sources) Opioid Agonist Start: 03-18-2017 End: 04-03-2017 take 1 tablet by mouth every six hours as needed Oxycodone-Acetamino phen Discontinued 1 - 2 TAB PO Q6H March 18, 2017 10:19am April 03, 2017 7:39am 1-2 every 6 hours as needed amitriptyline hydrochloride 25 mg oral tablet (2 sources) Tricyclic Antidepressant Start: 10-22-2012 take 1 tablet by mouth once daily at bedtime AMITRIPTYLINE 25 mg tablet Take 25 mg by mouth daily at bedtime. 0 10/22/2012 Active Comment on above: Take 25 mg by mouth daily at bedtime. amLODIPine 5 mg oral tablet (20 sources) Dihydropyridine Calcium Channel Germán Start: 10-25-2021 End: 09-22-2022 take 1 tablet by mouth once daily amLODIPine (NORVASC) 5 mg tablet Take 5 mg by mouth once daily. 0 08/08/2022 Active Comment on above: Take 5 mg by mouth o nce daily. calcium carbonate 1250 mg / cholecalciferol 200 unt oral tablet (14 sources) Vitamin D Start: 04-03-2017 End: 11-26-2019 take 1 tablet by mouth twice daily Calcium Carbonate-Vitamin D3 (Oyster Shell Calcium-Vit D3) 500 mg(1,250mg) -200 unit Tablet Discontinued 1 TAB PO Twice daily 0 April 03, 2017 12:00am November 26, 2019 3:17pm cephalexin 500 mg oral capsule (9 sources) Cephalosporin Antibacterial Start: 01-10-2022 End: 09-22-2022 take 500 mg by mouth twice daily Cephalexin Discontinued 500 MG PO Twice daily 26 01January 09, 2022 11:00pm September 22, 2022 8:08am colestipol hydrochloride 1000 mg oral tablet (3 sources) Bile Acid Sequestrant Start: 11-23-2022 End: 11-23-2022 take 1 g by mouth once daily Colestipol Discontinued 1 GM PO Daily November 22, 2022 11:00pm November 23, 2022 4:42pm cyclobenzaprine hydrochloride 5 mg oral tablet (14 sources) Muscle Relaxant Start: 04-03-2017 End: 11-26-2019 take 5 mg by mouth every eight hours Cyclobenzaprine Discontinued 5 MG PO Q8H 0 April 03, 2017 12:00am November 26, 2019 3:12pm diphenhydrAMINE hydrochloride 25 mg oral capsule (14 sources) Histamine-1 Receptor Antagonist Start: 04-03-2017 End: 11-26-2019 take 25 mg by mouth every six hours Diphenhydramine Hcl Discontinued 25 MG PO Q6H 0 April 03, 2017 12:00am November 26, 2019 3:14pm docusate sodium 100 mg oral capsule (14 sources) Start: 04-03-2017 End: 11-26-2019 take 100 mg by mouth twice daily Docusate Sodium Discontinued 100 MG PO Twice daily 0 April 03, 2017 12:00am November 26, 2019 3:12pm erythromycin 0.005 mg/mg ophthalmic ointment (20 sources) Macrolide, Macrolide Antimicrobial Start: 01-10-2022 End: 09-22-2022 Erythromycin Discontinued 1 APPLIC OPHTHALMIC Three times daily January 10, 2022 4:45pm September 22, 2022 8:09am Start: 10-25-2021 End: 01-10-2022 Erythromycin Discontinued 1 APPLIC OPHTHALMIC Q6H 3.5 October 24, 2021 11:00pm January 10, 2022 4:46pm heparin sodium, porcine 5000 unt/ml injectable solution (14 sources) Unfractionated Heparin, Anti-coagulant Start: 04-03-2017 End: 11-26-2019 inject 5000 [IU] by subcutaneous injection every twelve hours Heparin (Porcine) Discontinued 5000 UNIT SUBCUT Every 12 hours 0 April 03, 2017 12:00am November 26, 2019 3:11pm hydroCHLOROthiazide 12.5 mg oral tablet (14 sources) Thiazide Diuretic Start: 04-03-2017 End: 10-25-2021 take 12.5 mg by mouth once daily Hydrochlorothiazide Discontinued 12.5 MG PO Daily 0 April 03, 2017 12:00am October 25, 2021 10:43am levoFLOXacin 750 mg oral tablet (14 sources) Quinolone Antimicrobial Start: 03-18-2017 End: 03-25-2017 take 750 mg by mouth every twenty-four hours Levofloxacin Discontinued 750 MG PO Q24H 7 7 March 18, 2017 12:00am March 25, 2017 12:02am levothyroxine sodium 0.05 mg oral tablet (2 sources) l-Thyroxine Start: 01-01-2023 take 1 tablet by mouth once daily Levothyroxine Sodium 50 MCG Oral Tablet take 1 tablet by mouth once daily Quantity: 90 Refills: 3 Ordered: 01-Jan-2023 Akhil Oilvarez MD Start : 01-Jan-2023 Active meclizine hydrochloride 25 mg oral tablet (13 sources) Antiemetic Start: 10-29-2021 End: 09-22-2022 take 25 mg by mouth every eight hours Meclizine Discontinued 25 MG PO Q8H 30 October 28, 2021 11:00pm September 22, 2022 8:09am over the counter Multivitamin With Folic Acid (Thera) 400 mcg Tablet (14 sources) Start: 04-03-2017 End: 01-10-2022 take 1 tablet by mouth once daily Multivitamin With Folic Acid (Thera) 400 mcg Tablet Discontinued 1 TAB PO Daily 0 April 03, 2017 12:00am January 10, 2022 4:51pm Start: 04-03-2017 End: 01-10-2022 take 1 tablet by mouth once daily Multivitamin With Folic Acid (Thera) 400 mcg Tablet Discontinued 1 TAB PO Daily 0 April 03, 2017 1:00am January 10, 2022 5:51pm Start: 04-03-2017 take 1 tablet by rosibel th once daily Multivitamin With Folic Acid (Thera) 400 mcg Tablet Active 1 TAB PO Daily 0 April 03, 2017 1:00am nitrofurantoin, macrocrystals 25 mg / nitrofurantoin, monohydrate 75 mg oral capsule (14 sources) Nitrofuran Antibacterial Start: 10-23-2021 End: 10-29-2021 take 2 capsules by mouth once daily at mealtime Nitrofurantoin Monohyd/M-Cryst (Macrobid) 100 mg Capsule Discontinued 100 MG PO Twice daily October 22, 2021 11:00pm October 29, 2021 10:43am must administer with a meal/food - ON DAY 2 OF omeprazole 20 mg delayed release oral capsule (13 sources) Proton Pump Inhibitor Start: 10-29-2021 End: 01-10-2022 take 20 mg by mouth twice daily Omeprazole Discontinued 20 MG PO Twice daily 28 October 28, 2021 11:00pm January 10, 2022 4:51pm ondansetron 4 mg disintegrating oral tablet (13 sources) Serotonin-3 Receptor Antagonist Start: 10-29-2021 End: 09-22-2022 take 4 mg by mouth every six hours Ondansetron Discontinued 4 MG PO Q6H October 28, 2021 11:00pm September 22, 2022 8:10am predniSONE 20 mg oral tablet (20 sources) Start: 10-25-2021 End: 01-10-2022 take 60 mg by mouth once daily at mealtime Prednisone Discontinued 60 MG PO Daily 27 10October 29, 2021 10:42am January 10, 2022 4:52pm administer with food or milk, complete course previously started sennosides, fci 8.6 mg oral tablet (14 sources) Start: 04-03-2017 End: 11-26-2019 take 2 tablets by mouth once daily Sennosides (Senna Lax) 8.6 mg Tablet Discontinued 2 TAB PO DAILY@12 0 April 03, 2017 12:00am November 26, 2019 3:11pm SITagliptin 100 mg oral tablet (3 sources) Dipeptidyl Peptidase 4 Inhibitor Start: 11-23-2022 End: 11-23-2022 take 1 tablet by mouth once daily Sitagliptin Phosphate (Januvia) 100 mg Tablet Discontinued 100 MG PO Daily November 22, 2022 11:00pm November 23, 2022 4:42pm triamcinolone acetonide 1 mg/ml topical cream (5 sources) Corticosteroid Start: 11-29-2022 Triamcinolone Acetonide 0.1 % External Cream APPLY A THIN LAYER TO AFFECTED AREA(S) TWICE DAILY. Quantity: 1 Refills: 0 Ordered: 29-Nov-2022 Akhil Olivarez MD Start : 29-Nov-2022 Active triamcinolone (K enalog) 0.1 % cream Apply 1 Application topically 2 times a day. 0 Active valACYclovir 1000 mg oral tablet (20 sources) Herpesvirus Nucleoside Analog DNA Polymerase Inhibitor, Herpes Simplex Virus Nucleoside Analog DNA Polymerase Inhibitor, Herpes Zoster Virus Nucleoside Analog DNA Polymerase Inhibitor Start: 10-25-2021 End: 01-10-2022 take 1000 mg by mouth every eight hours Valacyclovir Discontinued 1000 MG PO Q8H 27 10October 29, 2021 10:42am January 10, 2022 4:52pm complete course previously ordered Vitamin B12 TABS (20 sources) Vitamin B12 TABS TAKE 1 TABLET DAILY DIRECTED. Quantity: 0 Refills: 0 Ordered: 15-Apr-2021 DO Active Problems Active Problems Problem Classification Problem Date Documented Date Episodic/Chronic Administrative/social admission (20 sources) Other reduced mobility; Translations: [Impaired mobility and activities of daily living] 10-28-2021 Episodic Cardiac dysrhythmias (20 sources) Paroxysmal atrial fibrillation; Translations: [Atrial fibrillation] Onset: 2 11-26-2019 Chronic Conditions associated with dizziness or vertigo (20 sources) Dizziness; Translations: [Dizziness and giddiness] 10-28-2021 Episodic Conduction disorders (8 sources) Cardiac pacemaker in situ; Translations: [Cardiac pacemaker in situ] Onset: 3 02-26-2023 Chronic Congestive heart failure; nonhypertensive (13 sources) Heart failure with normal ejection fraction; Translations: [Unspecified diastolic (congestive) heart failure] 10-28-2021 Chronic Coronary atherosclerosis and other heart disease (20 sources) Coronary arteriosclerosis; Translations: [Coronary atherosclerosis of unspecified type of vessel, [place] or graft] Onset: 3 10-28-2021 Chronic Deficiency and other anemia (14 sources) Anemia; Translations: [Anemia, unspecified] 03-19-2017 Episodic Disorders of lipid metabolism (20 sources) Hyperlipidemia; Translations: [Other and unspecified hyperlipidemia] Onset: 3 01-23-2023 Chronic E Codes: Fall (20 sources) Fall; Translations: [Unspecified fall, initial encounter] 03-19-2017 Episodic Essential hypertension (20 sources) Essential hypertension; Translations: [Unspecified essential hypertension] Onset: 3 10-21-2021 Chronic Fracture of neck of femur (hip) (14 sources) Closed intertrochanteric fracture; Translations: [Displaced intertrochanteric fracture of left femur, initial encounter for closed fracture] 03-19-2017 Episodic Gastroduodenal ulcer (except hemorrhage) (20 sources) Chronic peptic ulcer; Translations: [Chronic peptic ulcer of unspecified site without mention of hemorrhage or perforation, without mention of obstruction] Onset: 3 01-23-2023 Chronic Gout and other crystal arthropathies (20 sources) Gout; Translations: [Gout, unspecified] 03-23-2017 Chronic Headache; including migraine (1 source) Headache; including migraine; Translations: [HEADACHE UNSPECIFIED] Onset: 2 Heart valve disorders (20 sources) Mitral valve regurgitation; Translations: [Mitral valve disorders] Onset: 3 01-23-2023 Chronic Malaise and fatigue (20 sources) Asthenia; Translations: [Weakness] 10-28-2021 Episodic Neoplasms of unspecified nature or uncertain behavior (2 sources) Monoclonal gammopathy of uncertain significance; Translations: [Monoclonal gammopathy] 10-29-2012 Chronic Osteoarthritis (20 sources) Osteoarthritis; Translations: [Osteoarthrosis, unspecified whether generalized or localized, site unspecified] Chronic Osteoporosis (4 sources) Age-related osteoporosis without current pathological fracture; Translations: [AGE-REL OSTEOPOR W/O CURR PATH FX] Onset: 3 Chronic Other aftercare (20 sources) Drug therapy finding; Translations: [Long-term (current) use of other medications] Episodic Other aftercare (16 sources) Long-term current use of anticoagulant; Translations: [terminal carman (current) use of anticoagulants] Onset: 3 10-28-2021 Episodic Other aftercare (9 sources) terminal carman (current) use of anticoagulants; Translations: [Long-term (current) use of anticoagulants] Onset: 3 10-28-2021 Episodic Other aftercare (5 sources) Encounter for therapeutic drug level monitoring; Translations: [ENC THERAPEUTC DRUG LEVL MONITORING] Onset: 3 Episodic Other aftercare (2 sources) Taking high risk medication; Translations: [Other correction (current) drug therapy] Onset: 3 02-26-2023 Episodic Other aftercare (2 sources) Other correction (current) drug therapy; Translations: [Other termite control technician (current) drug therapy] Onset: 3 Episodic Other circulatory disease (14 sources) H/O: atrial fibrillation; Translations: [Personal history of other diseases of the circulatory system] 10-28-2021 Episodic Other circulatory disease (14 sources) Low blood pressure; Translations: [Hypotension, unspecified] 03-16-2017 Episodic Other circulatory disease (6 sources) Personal history of other diseases of the circulatory system; Translations: [Personal history of other diseases of circulatory system] 10-28-2021 Episodic Other connective tissue disease (14 sources) Foot pain; Translations: [Pain in unspecified foot] 03-23-2017 Episodic Other connective tissue disease (14 sources) Pain in left arm; Translations: [Pain in left arm] 11-28-2019 Episodic Other diseases of veins and lymphatics (14 sources) Venous insufficiency of leg; Translations: [Venous (peripheral) insufficiency, unspecified] Onset: 3 01-23-2023 Episodic Other eye disorders (9 sources) Chemosis of conjunctiva; Translations: [Conjunctival edema, unspecified eye] 01-10-2022 Episodic Other lower respiratory disease (15 sources) Dyspnea on exertion; Translations: [Shortness of breath] Onset: 3 01-23-2023 Episodic Other nervous system disorders (14 sources) Abnormal gait; Translations: [Unspecified abnormalities of gait and mobility] 03-19-2017 Episodic Other nutritional; endocrine; and metabolic disorders (20 sources) Obesity; Translations: [Obesity, unspecified] Chronic Other nutritional; endocrine; and metabolic disorders (2 sources) Body mass index 30+ - obesity; Translations: [Body mass index (BMI) 34.0-34.9, adult] Onset: 3 02-26-2023 Chronic Other nutritional; endocrine; and metabolic disorders (2 sources) Body mass index (BMI) 34.0-34.9, adult; Translations: [Body mass index (BMI) 34.0-34.9, adult] Onset: 3 Chronic Other skin disorders (4 sources) Skin irritation ; Translations: [Unspecified disorder of skin and subcutaneous tissue] Episodic Kiley-; endo-; and myocarditis; cardiomyopathy (except that caused by tuberculosis or sexually transmitted disease) (20 sources) Cardiomyopathy; Translations: [Other primary cardiomyopathies] Onset: 3 01-23-2023 Chronic Residual codes; unclassified (14 sources) Postprocedural state finding; Translations: [Other specified postprocedural states] 03-17-2017 Episodic Residual codes; unclassified (14 sources) Patient encounter status; Translations: [Encounter for prophylactic measures, unspecified] 03-19-2017 Episodic Residual codes; unclassified (19 sources) Other specified health status; Translations: [Statin intolerance] Onset: 3 02-26-2023 Episodic Syncope (20 sources) Near syncope; Translations: [Syncope and collapse] Onset: 3 01-23-2023 Episodic Thyroid disorders (2 sources) Hypothyroidism; Translations: [Unspecified acquired hypothyroidism] Onset: 3 01-23-2023 Chronic Unclassified (3 sources) CONTACT W/AND (SUSP) EXPOS COVID-19; Translations: [CONTACT W/AND (SUSP) EXPOS COVID-19] Onset: 2 Unclassified (1 source) Encounter for checking and testing of cardiac pacemaker pulse generator [battery]; Translations: [Encounter for checking and testing of cardiac pacemaker pulse generator [battery]] Onset: 3 Unclassified (1 source) Encounter for preprocedural laboratory examination; Translations: [Encounter for preprocedural laboratory examination] Onset: 3 Urinary tract infections (20 sources) Urinary tract infectious disease; Translations: [Urinary tract infection, site not specified] 03-31-2017 Episodic Viral infection (14 sources) Viral disease; Translations: [Viral infection, unspecified] 10-21-2021 Episodic Viral infection (1 source) COVID-19; Translations: [COVID-19] Onset: Past or Other Problems Problem Classification Problem Date Documented Da te Episodic/Chronic Acute bronchitis (4 sources) Acute bronchitis, unspecified; Translations: [ACUTE BRONCHITIS UNSPECIFIED] Onset: 03-10-2022 Episodic Cardiac dysrhythmias (20 sources) Palpitations; Translations: [Palpitations] Onset: 11-19-2022 11-18-2022 Episodic Coronary atherosclerosis and other heart disease (4 sources) Presence of coronary angioplasty implant and graft; Translations: [Percutaneous transluminal coronary angioplasty status] Onset: 11-19-2022 11-24-2022 Episodic Fluid and electrolyte disorders (20 sources) Dehydration; Translations: [Dehydration] Onset: 11-19-2022 10-28-2021 Episodic Nonspecific chest pain (14 sources) Chest pain; Translations: [Chest pain, unspecified] Onset: 11-19-2022 11-17-2022 Episodic Other nervous system disorders (20 sources) Alvarado's palsy; 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] Onset: 07-18-2022 10-25-2021 Episodic Other nervous system disorders (11 sources) Alvarado's palsy; 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] Onset: 12-20-2021 10-28-2021 Episodic Other screening for suspected conditions (not mental disorders or infectious disease) (20 sources) Abnormal results of function studies of other organs and systems; Translations: [Nonspecific abnormal results of function study] Onset: 09-25-2022 09-25-2022 Episodic Other upper respiratory disease (1 source) Other specified disorders of nose and nasal sinuses; Translations: [OTH SPEC D/O NOSE NASAL SINUSES] Onset: 10-21-2021 Episodic Unclassified (20 sources) Never smoked tobacco; Translations: [Never a smoker] Unclassified (1 source) CONTACT W/AND (SUSP) EXPOS COVID-19; Translations: [CONTACT W/AND (SUSP) EXPOS COVID-19] Onset: 10-20-2021 Unclassified (1 source) Onset: 02-26-2023 02-26-2023 Results Test Name Value Interpretation Reference Range Facility [facility] 04-05-2023 ISMA Telephone (PANEST) -- ERIN CANALES ([id number]) 1935 F Date Time Provider Department 04/05/23 LETICIA LIM During your visit today, we recorded the following information about you: Leticia Lim PA-C 04/05/2023 12:07 PM Signed Good afternoon, I saw this patient for PACC for upcoming surgery scheduled 04/16/23 at [facility]. She has a significant cardiac PMH including pacemaker, CAD, A.fib, pulmonary HTN, CHF, and valvular heart disease. Due to pt's PMH and surgery being scheduled at [facility], I reviewed patient's chart with staff anesthesiologist, Dr. Dumont. Per Dr. Dumont, this patient is not an ASC candidate and surgery needs to be moved to a hospital setting. Please let me know if you have any questions or concerns. Thank you, Leticia Lim PA-C PACC [place] Beatris Castañeda LPN 04/05/2023 1:53 PM Signed Thanks for letting us know, Leticia. I am forwarding your message to Dr. Sol's team at [facility] to reschedule under hospital setting. Please call patient on rescheduling surgery in hospital. Beatris Castañeda LPN Allergies As of Date: 04/05/2023 Noted Allergy Reaction [id number] REDUCTASE INHIBIT*08/25/2022 14 - Other: See Comments Comments: Cannot walk when she takes it MOTRIN (IBUPROFEN) 10/29/2012 4 - Hives Date Reviewed: 03/29/2023 Reviewed by: Beatris Castañeda LPN - Fully Assessed Reason for Visit: PreOp Call [[id number]] Cmt: Move Surgery to Hospital Prescriptions as of 04/06/2023 - aspirin, enteric coated (ASPIRIN, ENTERIC COATED) 81 mg EC tablet Take 81 mg by mouth two times a week. Sunday and Sunday - nitroglycerin sublingual (NITROSTAT) 0.6 mg SL tablet Dissolve 0.6 mg under the tongue every 5 minutes as needed for chest pain. - Ascorbic Acid 1,000 mg tablet Take 1 tablet by mouth once daily. - calcium carbonate (CALTRATE) 600 mg calcium (1,500 mg) tab Take by mouth two times a day. - Apple Cider Vinegar 500 mg tab Take 1 tablet by mouth once daily. - cyanocobalamin (VITAMIN B-12) 100 mcg tab Take 1,000 mcg by mouth once daily. - denosumab (PROLIA) 60 mg/mL Inject subcutaneously once every 6 months. - omega-3/dha/epa/fish oil (OMEGA-3 FISH OIL ORAL) Take 1 tablet by mouth once daily. - MULTIVITAMIN ORAL Take 1 tablet by mouth once daily. - Vitamin E 100 unit/0.25 mL drop Take 1 tablet by mouth once daily. - Flaxseed Oil 1,000 mg cap Take 1 capsule by mouth once daily. - OTC NUTRITIONAL SUPPLEMENT Take 1 tablet by mouth once daily. [facility] - clopidogrel (PLAVIX) 75 mg tablet Take 75 mg by mouth once daily. - isosorbide mononitrate ER (IMDUR) 60 mg 24 hr tablet TAKE 1 TABLET BY MOUTH ONCE DAILY DIRECTED. DOSE INCREASED - levothyroxine (SYNTHROID) 50 mcg tablet Take 1 tablet by mouth every afternoon. - torsemide (DEMADEX) 5 mg tablet Take 5 mg by mouth. - amiodarone (PACERONE) 200 mg tablet Take 100 mg by mouth two times a day. - warfarin (COUMADIN) 6 mg tablet Take 2.5 mg by mouth as directed. - lisinopril 5 mg tablet Take 10 mg by mouth once daily. Problem List As Of Date 04/05/2023 Noted Resolved MGUS (monoclonal gammopathy of unknown signific* Pulmonary HTN (HCC) [I27.20] 03/29/2023 Valvular heart disease [I38] 03/29/2023 A-fib (HCC) [I48.91] 03/29/2023 Cardiac pacemaker [Z95.0] 03/29/2023 CKD (chronic kidney disease) [N18.9] 03/29/2023 Congestive heart failure (HCC) [I50.9] 03/29/2023 Coronary artery disease [I25.10] 03/29/2023 Hypertension [I10] 03/29/2023 Hypothyroidism [E03.9] 03/29/2023 History of Alvarado's palsy [Z86.69] 03/29/2023 Encounter Status:Closed by BRENT MEHTA on 04/06/23 Normal [facility] MA Mamm Screen w/CAD if perf and 3D [place] 04-04-2023 MA Mamm Screen w/CAD if perf and 3D [place] Exam Date/Time: 03/30/2023 16:08 EST Reason for Exam: Z12. Report IMPRESSION: BIRADS 2 BENIGN FINDINGS, NORMAL INTERVAL FOLLOW-UP Follow-up: 12 MONTH RECALL Density: Scattered tissue. Vascular calcifications: Present. EXAM: MA Mamm Screen w/CAD if perf and 3D [place] DATE: 03/30/2023 3:23 PM CLINICAL HISTORY: Z12.31. COMPARISONS: 03/23/2022, 11/05/2020, and 10/09/2019. TECHNIQUE: Routine full-field digital mammograms and 3D breast tomosynthesis of both breasts were obtained. FINDINGS: There are no developing masses, suspicious microcalcifications, or areas of architectural distortion identified on the current study. No significant changes are identified from the prior studies, given differences in technique and positioning. Biopsy clips and coarse microcalcifications. Dense Breast: No. CAD analysis was performed and used in the interpretation. Board Certified Radiologists. Accredited by the ACR and FDA. MAMMOGRAPHY IS VERY IMPORTANT TO YOUR HEALTH. THE CURRENT [employer] GUIDELINES RECOMMENDS ANNUAL MAMMOGRAPHY BEGINNING AT AGE 40. THIS FACILITY UTILIZES A REMINDER SYSTEM TO ENSURE ALL PATIENTS RECEIVE REMINDER NOTIFICATIONS AT THE APPROPRIATE TIME BASED ON THE RECOMMENDATIONS OF THIS EXAM. Report Ordering Provider: REFERRAL, SELF FINAL REPORT Dictated: 04/04/2023 3:52 pm Tiburcio Pollard MD Signed (Electronic Signature): 04/04/2023 3:52 pm Signed by: Tiburcio Pollard MD Transcribed by: SILAS Technologist: NELDA Assessment: BI-RADS Category 2-Benign finding Recommendation: Normal interval follow-up Normal [facility] Consent for Treatmenton 03-10 Consent for Treatment [id number] Normal [facility] CNCOon 03-29-2023 CNCO Letter Text Normal [facility] CNOVon 03-29-2023 CNOV Office Visit (PLASST ) -- ERIN CANALES ([id number]) 1935 F Date Time Provider Department 03/29/23 1:45 PM SHWETA SOL During your visit today, we recorded the following information about you: Shweta Sol MD 03/29/2023 2:35 PM Signed CC: 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 This developed in October 2021. She had surgery on her lower eye lid, she has tried therapy and steroids with no improvement. She has difficulty eating and drinking, sleeping and even smelling due to the facial drooping. She is scheduled for surgery on 04/16/2023 Cardiac cath done on 09/25/2022 She is here for a follow up She mentioned that her condition is a constant pain and severely affects her ADLs HISTORIES PAST MEDICAL HISTORY Diagnosis Date A-fib (HCC) Cardiac pacemaker 11/22/2022 CKD (chronic kidney disease) Congestive heart failure (HCC) Coronary artery disease Hypertension Hypothyroidism MGUS (monoclonal gammopathy of unknown significance) Pulmonary HTN (HCC) Valvular heart disease No past surgical history on file. clopidogrel (PLAVIX) 75 mg tablet Take 75 mg by mouth once daily. isosorbide mononitrate ER (IMDUR) 60 mg 24 hr tablet TAKE 1 TABLET BY MOUTH ONCE DAILY DIRECTED. DOSE INCREASED levothyroxine (SYNTHROID) 50 mcg tablet Take 1 tablet by mouth every afternoon. pantoprazole DR (PROTONIX) 20 mg tablet torsemide (DEMADEX) 5 mg tablet Take 5 mg by mouth. amiodarone (PACERONE) 200 mg tablet Take 200 mg by mouth. amLODIPine (NORVASC) 5 mg tablet Take 5 mg by mouth once daily. warfarin (COUMADIN) 6 mg tablet Take 2.5 mg by mouth. AMITRIPTYLINE 25 mg tablet Take 25 mg by mouth daily at bedtime. DIGOXIN (DIGITEK ORAL) Take 0.125 mg by mouth. carvedilol (COREG) 6.25 mg tablet Take 1 tablet by mouth twice daily. lisinopril 5 mg tablet Take 10 mg by mouth once daily. Allergies: ALLERGIES Allergen Reactions Wvhefwb-Cjv-[id number] Red* Other: See Comments Cannot walk when she takes it Motrin [Ibuprofen] Unknown No family history on file. Social History Tobacco Use Smoking status: Never Smokeless tobacco: Never Substance Use Topics Alcohol use: No REVIEW OF SYSTEMS As above General: No weight loss, fever, chills, malaise Cardiac: No CP, palpitations, or leg swelling Respiratory: No cough or SOB GI: No N/V or diarrhea, no blood in stool : No burning or frequency with urination, no blood in urine All other reviewed and negative other than HPI. PHYSICAL EXAM: There were no vitals taken for this visit. GEN: Well appearing, alert, in no acute distress, well-hydrated, well nourished. 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 Brow ptosis Eye exposure due to OO paralysis Ectropion from age and OO Plan: - Resigned consent form for Eyelid weight or equivalent to the left upper eyelid and left direct eyebrow lift. Lateral wedge canthopexy of left lower lid. RTC for surgery scheduled in April 2023 The patient is seen and examined by Dr. Sol and the following reflects his service. Scribed by Chloe Riojas I agree with the Chief Complaint, ROS, and Past Histories independently gathered by the clinical direct support professional and the remaining scribed note accurately describes my personal service to the patient. 30 Minutes total visit spent face to face with patient. Greater than 50% of the time was spent for counseling and coordination of care, discussing treatment options and recommendations. By signing my name below, I, Chloe Riojas, attest that this documentation has been prepared under the direction and in the presence of Dr. Sol Electronically signed, Anastacio Palmer March 29, 2023 2:01 PM Provider Attestation: IShweta MD, personally performed the services described in this documentation. All medical record entries made by the scribe were at my direction and in my presence. I have reviewed the chart and discharge instructions (if applicable) and agree that the record reflects my personal performance and is accurate and complete. Dr. Shweta Sol MD March 29, 2023 2:34 PM Referring Provider: SHWETA SOL [[id number]] Allergies As of Date: 03/29/2023 Noted Allergy Reaction IHIFRBW-IWK-YRS REDUCTASE INHIBIT*08/25/2022 14 - Other: See Comments Comments: Cannot walk when she takes it MOTRIN (IBUPROFEN) 10/29/2012 4 - Hives Date Reviewed: 03/29/2023 Reviewed by: Beatris Castañeda LPN - Fully Assessed Primary Visit Diagnosi (more content not included)... [facility] ERIN CANALES ([id number]) 1935 F Date Time Provider Department 03/29/23 CHERRIE GAMINO During your visit today, we recorded the following information about you: Cherrie Gamino LPN 03/29/2023 3:03 PM Signed Cardiac clearance and medication instructions requested from Dr. Olivarez. JOVANNI Macedo Peggy Ann, RN 04/06/2023 9:07 AM Signed Addendum-04/03 AND 04/06. Called [facility] to confirm card optimization letter was received. Left a detailed voice mail message to joselyn me back. Cherrie Gamino LPN 04/10/2023 2:20 PM Addendum Cardiac cllearance received from Dr. Olivarez. Patient is optimized for surgery. She is to stop Coumadin and Plavix 5 days prior to surgery.Patient called and advised to stop Coumadin and Plavix for 5 days prior to surgery then resume the medications after. I repeated this to her twice then she repeated instructions back to me. Scanned letter into [employer]. Cherrie Gamino LPN Allergies As of Date: 03/29/2023 Noted Allergy Reaction OYYRCYN-MOX-LCS REDUCTASE INHIBIT*08/25/2022 14 - Other: See Comments Comments: Cannot walk when she takes it MOTRIN (IBUPROFEN) 10/29/2012 4 - Hives Date Reviewed: 03/29/2023 Reviewed by: Beatris Castañeda LPN - Fully Assessed Reason for Visit: Cardiac Clearance [4105] Prescriptions as of 04/10/2023 - aspirin, enteric coated (ASPIRIN, ENTERIC COATED) 81 mg EC tablet Take 81 mg by mouth two times a week. Sunday and Sunday - nitroglycerin sublingual (NITROSTAT) 0.6 mg SL tablet Dissolve 0.6 mg under the tongue every 5 minutes as needed for chest pain. - Ascorbic Acid 1,000 mg tablet Take 1 tablet by mouth once daily. - calcium carbonate (CALTRATE) 600 mg calcium (1,500 mg) tab Take by mouth two times a day. - Apple Cider Vinegar 500 mg tab Take 1 tablet by mouth once daily. - cyanocobalamin (VITAMIN B-12) 100 mcg tab Take 1,000 mcg by mouth once daily. - denosumab (PROLIA) 60 mg/mL Inject subcutaneously once every 6 months. - omega-3/dha/epa/fish oil (OMEGA-3 FISH OIL ORAL) Take 1 tablet by mouth once daily. - MULTIVITAMIN ORAL Take 1 tablet by mouth once daily. - Vitamin E 100 unit/0.25 mL drop Take 1 tablet by mouth once daily. - Flaxseed Oil 1,000 mg cap Take 1 capsule by mouth once daily. - OTC NUTRITIONAL SUPPLEMENT Take 1 tablet by mouth once daily. [facility] - clopidogrel (PLAVIX) 75 mg tablet Take 75 mg by mouth once daily. - isosorbide mononitrate ER (IMDUR) 60 mg 24 hr tablet TAKE 1 TABLET BY MOUTH ONCE DAILY DIRECTED. DOSE INCREASED - levothyroxine (SYNTHROID) 50 mcg tablet Take 1 tablet by mouth every afternoon. - torsemide (DEMADEX) 5 mg tablet Take 5 mg by mouth. - amiodarone (PACERONE) 200 mg tablet Take 100 mg by mouth two times a day. - warfarin (COUMADIN) 6 mg tablet Take 2.5 mg by mouth as directed. - lisinopril 5 mg tablet Take 10 mg by mouth once daily. Problem List As Of Date 03/29/2023 Noted Resolved MGUS (monoclonal gammopathy of unknown signific* Pulmonary HTN (HCC) [I27.20] 03/29/2023 Valvular heart disease [I38] 03/29/2023 A-fib (HCC) [I48.91] 03/29/2023 Cardiac pacemaker [Z95.0] 03/29/2023 CKD (chronic kidney disease) [N18.9] 03/29/2023 Congestive heart failure (HCC) [I50.9] 03/29/2023 Coronary artery disease [I25.10] 03/29/2023 Hypertension [I10] 03/29/2023 Hypothyroidism [E03.9] 03/29/2023 History of Alvarado's palsy [Z86.69] 03/29/2023 Encounter Status:Closed by CHERRIE GAMINO on 03/29/23 Normal [facility] HISTORY PHYSICALon HISTORY PHYSICAL HNO ID: [id number] Author: Leticia Lim PA-C Service: ? Author Type: Physician Special Education Para Professional Type: HANDP Filed: 04/10/2023 12:22 PM Note Text: HISTORY AND PHYSICAL EXAMINATION SERVICE DATE: 03/29/2023 SERVICE TIME: 12:08 PM PRIMARY CARE PHYSICIAN: Los Chaudhary MD Assessment Patient has the following medical conditions which may affect kiley-operative course: Pulmonary HTN (HCC) Assessment: RVSP 40 mmHg on Echo 10/2021. Cardiac pacemaker Assessment: Placed 11/22/22 for bradycardia. Device is [employer] 2272 [employer] MRI pacemaker. Device check 02/19/23, battery longevity of 9 years 3 months. A-fib (HCC) Assessment: Stable, on amiodarone and warfarin. RRR on exam today. Letter faxed to Dr. Olivarez on 03/29/2023 for warfarin clearance. Coronary artery disease Assessment: S/p PCI x 4 in 2009 (stents were patent on [facility] 09/2022), s/p PCI to circumflex 09/2022, on ASA 81 mg 2x per week, Plavix, and isosorbide. Follows with outside cards, Dr. Olivarez, [facility] 02/26/23 Mickey James, [facility]. Letter faxed to Dr. Olivarez on 03/29/2023 for cardiac optimization and Plavix clearance. Congestive heart failure (HCC) Assessment: LVEF 55% on [facility] 09/2022, on torsemide. Appears euvolemic on exam today. Hypertension Assessment: Stable, on RX. BP today 126/73. Valvular heart disease Assessment: Trivial , moderate MR, mild TR on Echo 10/2021. CKD (chronic kidney disease) Assessment: eGFR 56, Cr 1.11 in 01/2023. Hypothyroidism Assessment: Stable, on RX. MGUS (monoclonal gammopathy of unknown significance) Assessment: Pt previously followed with [facility] hematology Dr. Miller, but has not followed up since 2016. 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 South Activity Status Index: METS: Climb a flight of stairs or walk up a hill (5.50 METs) DASI Score: 5.5 (Climbs stairs 2-3x per week) Patient denies any chest pain or undue shortness of breath with the above physical activity. Clinical Frailty Scale: 3. Well, with treated comorbid disease STOP-Bang Score: Snores loudly Has or is being treated for high blood pressure Patient over 50 years old Denies feeling tired, fatigued, or sleepy during the daytime Has not been observed to stop breathing or choking/gasping during sleep BMI less than or equal to 35 kg/m2 Does not have a large neck Non-male patient STOP-Bang Score: 3 [id number] Score: Age: >=75 Sex: female CHF history: Yes Hypertension history: Yes Stroke/TIA/thromboembolism history: No Vascular disease history: Yes Diabetes history: No [id number] Score: 6 ANESTHESIA FINDINGS: Intubation History: No history of difficult intubation Significant Anesthesia Considerations: none Airway History: No history of difficult airway Acquired pathologic states that can distort airway or airway management: I - PHYSICAL EVALUATION AIRWAY Patient intubated: No. Tracheostomy tube not present Mallampati: III. TM distance: >3 FB. Neck ROM: limited extension. Mouth opening: adequate. Short neck: no. Additional comments: +significant L-sided facial droop. Thick neck: no Microretrognathia/Micronag thia/Recessed Chin: No DENTAL Dental findings: broken tooth and missing tooth/teeth. II - ANESTHESIA PLAN Anesthetic Plan: other Anesthetic plan additional comments: *PACC/TCI - anesthesia choice. Beta Germán Monitoring Plan Post Procedure Analgesic Plan REASON FOR VISIT: Erin Canales is a 87 year old female who is scheduled for Procedure(s): CORRECT LAGOPTHALMOS W/ IMPLANT UPPER LID (Left) at the request of Dr. Shweta Sol for consultation. My final recommendation will be communicated back to the requesting physician by way of shared medical record or letter. Subjective The patient has the following: ACTIVE PROBLEM LIST Mgus (Monoclonal Gammopathy of Unknown Significance) Pulmonary Htn (Hcc) Valvular Heart Disease A-Fib (Hcc) Cardiac Pacemaker Ckd (Chronic Kidney Disease) Congestive Heart Failure (Hcc) Coronary Artery Disease Hypertension Hypothyroidism History of Alvarado's Palsy COVID-19 Immunization Status Overdue - Covid-19 Vaccine (1) Never done No completion, postpone, frequency change, or communication history exists for this topic. CHIEF COMPLAINT: history of Alvarado's palsy HPI: Erin Canales is a 87 year old female presenting for pre-anesthesia consultation with daughter Betty. 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 Sx have been present since 10/2021. She has tried conservative tx without improvement. She has difficulty eating and drinking, sleeping and even smelling due to the facial drooping. Above procedure recommended to manage symptoms. Procedure scheduled on 04/24/2023 at . REVIEW OF SYSTEMS: General: No weight loss, malaise or fevers. Neurological: See HPI. Negative for: multiple sclerosis, Pa (more content not included)... Normal [facility] [place] 03-21-2023 [facility] Telephone (PLASST) -- ERIN CANALES ([id number]) 1935 F Date Time Provider Department 03/21/23 SHWETA SOL During your visit today, we recorded the following information about you: Jerilyn Rosa 03/21/2023 11:14 AM Signed PAC calling in asking for patients procedure if you are using local if so she does not need a PAC appt please advise. Ph- [phone] Beatris Castañeda LPN 03/21/2023 12:55 PM Signed I see that it does say local in the surgical episode but I'm thinking that it may not be. It does not state anything in the note. Just spoke with Dr. Sol and he said it would be 100% done under MAC, not local. Also spoke with Chioma from [facility] about this. Thanks. Beatris Castañeda LPN Allergies As of Date: 03/21/2023 Noted Allergy Reaction GOARKYL-XNM-XAX REDUCTASE INHIBIT*08/25/2022 14 - Other: See Comments Comments: Cannot walk when she takes it MOTRIN (IBUPROFEN) 10/29/2012 16 - Unknown Date Reviewed: 12/13/2022 Reviewed by: Amanda Chamberlain PCNA - Fully Assessed Reason for Visit: General Questions [4425] Prescriptions as of 03/29/2023 - aspirin, enteric coated (ASPIRIN, ENTERIC COATED) 81 mg EC tablet Take 81 mg by mouth two times a week. Sunday and Sunday - nitroglycerin sublingual (NITROSTAT) 0.6 mg SL tablet Dissolve 0.6 mg under the tongue every 5 minutes as needed for chest pain. - Ascorbic Acid 1,000 mg tablet Take 1 tablet by mouth once daily. - calcium carbonate (CALTRATE) 600 mg calcium (1,500 mg) tab Take by mouth two times a day. - Apple Cider Vinegar 500 mg tab Take 1 tablet by mouth once daily. - cyanocobalamin (VITAMIN B-12) 100 mcg tab Take 1,000 mcg by mouth once daily. - denosumab (PROLIA) 60 mg/mL Inject subcutaneously once every 6 months. - omega-3/dha/epa/fish oil (OMEGA-3 FISH OIL ORAL) Take 1 tablet by mouth once daily. - MULTIVITAMIN ORAL Take 1 tablet by mouth once daily. - Vitamin E 100 unit/0.25 mL drop Take 1 tablet by mouth once daily. - Flaxseed Oil 1,000 mg cap Take 1 capsule by mouth once daily. - OTC NUTRITIONAL SUPPLEMENT Take 1 tablet by mouth once daily. [facility] - clopidogrel (PLAVIX) 75 mg tablet Take 75 mg by mouth once daily. - isosorbide mononitrate ER (IMDUR) 60 mg 24 hr tablet TAKE 1 TABLET BY MOUTH ONCE DAILY DIRECTED. DOSE INCREASED - levothyroxine (SYNTHROID) 50 mcg tablet Take 1 tablet by mouth every afternoon. - torsemide (DEMADEX) 5 mg tablet Take 5 mg by mouth. - amiodarone (PACERONE) 200 mg tablet Take 100 mg by mouth two times a day. - warfarin (COUMADIN) 6 mg tablet Take 2.5 mg by mouth as directed. - lisinopril 5 mg tablet Take 10 mg by mouth once daily. Problem List As Of Date 03/21/2023 Noted Resolved MGUS (monoclonal gammopathy of unknown signific* Encounter Status:Closed by BEATRIS CASTAÑEDA LPN on 03/21/23 Normal [facility] Aspartate Amino Transferaseo n 12-14-2022 AST [Catalytic activity/Vol] 19 U/L Normal [facility] Comment on above: Order Comment: PT IS FASTING Performed By: #### B MP, AST, TSH3 #### [address] Aspartate aminotransferase [ Enzymatic activity/volume] in Serum or PlasmaOrdered By: Akhil Olivarez on 12-14-2022 AST [Catalytic activity/Vol] 19 U/L [address] Basic Metabolic Panelon Anion gap [Moles/Vol] 10.6 mmol/L Normal 6.0-15.0 [facility] Comment on above: Order Comment: PT IS FASTING Performed By: #### B MP, AST, TSH3 #### [facility] [address] Calcium [Mass/Vol] 9.6 mg/dL Normal 8.6-10.3 [facility] Comment on above: Order Comment: PT IS FASTING Performed By: #### B MP, AST, TSH3 #### [facility] [address] Chloride [Moles/Vol] 104 mmol/L Normal 98-107 [facility] Comment on above: Order Comment: PT IS FASTING Performed By: #### B MP, AST, TSH3 #### [facility] [address] CO2 [Moles/Vol] 30.6 mmol/L Normal 21.0-31.0 [facility] Comment on above: Order Comment: PT IS FASTING Performed By: #### B MP, AST, TSH3 #### [facility] [address] Creatinine [Mass/Vol] 1.23 mg/dL High 0.60-1.20 [facility] Comment on above: Order Comment: PT IS FASTING Performed By: #### B MP, AST, TSH3 #### [place] [address] [place] GFR/1.73 sq M.predicted MDRD (S/P/Bld) [Vol rate/Area] 42.268 mL/min/{1.73_m2} Normal [facility] Comment on above: Order Comment: PT IS FASTING Performed By: #### B MP, AST, TSH3 #### [address] Glucose [Mass/Vol] 86 mg/dL Normal 70-100 [facility] Comment on above: Order Comment: PT IS FASTING Result Comment: [place] Glucose Reference Range is dependent on time and content of last meal. Glucose of more than 200 mg/dL in a nonstressed, ambulatory subject supports the diagnosis of Diabetes Mellitus. ADA recommended reference range Performed By: #### B MP, AST, TSH3 #### [facility] [address] Potassium [Moles/Vol] 4.2 mmol/L Normal 3.5-5.1 [facility] Comment on above: Order Comment: PT IS FASTING Performed By: #### B MP, AST, TSH3 #### [facility] [address] [place] [id number] [place] Sodium [Moles/Vol] 141 mmol/L Normal 136-145 [facility] Comment on above: Order Comment: PT IS FASTING Performed By: #### B MP, AST, TSH3 #### [facility] [address] [place] [address] [place] Urea nitrogen [Mass/Vol] 27 mg/dL High 7-25 [facility] Comment on above: Order Comment: PT IS FASTING Performed By: #### B MP, AST, TSH3 #### [facility] [address] [place] [id number] [place] Calcium [Mass/volume] in Ser um or PlasmaOrdered By: Akhil Olivarez on 12-14-2022 Calcium [Mass/Vol] 9.6 mg/dL 8.6-10.3 [facility] Carbon dioxide, total [Moles /volume] in Serum or PlasmaOrdered By: Akhil Olivarez on 12-14-2022 CO2 [Moles/Vol] 30.6 mmol/L 21.0-31.0 [facility] Chloride [Moles/volume] in S payal or PlasmaOrdered By: Akhil Olivarez on 12-14-2022 Chloride [Moles/Vol] 104 mmol/L 98-107 [facility] Creatinine [Mass/volume] in Serum or PlasmaOrdered By: Akhil Olivarez on 12-14-2022 Creatinine [Mass/Vol] 1.23 mg/dL 0.60-1.20 [facility] Glucose [Mass/volume] in Ser um or PlasmaOrdered By: Akhil Olivarez on 12-14-2022 Glucose [Mass/Vol] 86 mg/dL 70-100 [facility] Comment on above: ADA recommended refe rence rangeRandom Glucose Reference Range is dependent on time and content of last meal. Glucose of more than 200 mg/dL in a nonstressed, ambulatory subject supports the diagnosis of Diabetes Mellitus. No Panel InformationOrdered By: Akhil Olivarez on 12-14-2022 Estimated GFR (CKD-EPI) 42.268 mL/Min [facility] Creatinine Clearance (Chem N/A [facility] No Panel Informationon 12-14 6.72\S\6.72 above high threshold 0.45-5.33 [facility] [employer]am[employer]iel ayde 250 DO Work Phone: Comment on above: PERFORMED BY:[facility] [place], [place] [id number] MEDICAL DIRECTORGIULIA VALERIO M.D. 19\S\19 Normal 13-39 [facility] [employer]am[employer]iel ayde 250 DO Work Phone: 42.268\S\42.268 Normal [facility] MultimediaLiv[facility] ayde 250 DO Work Phone: 10.6\S\10.6 Normal 6.0-15.0 [facility] [employer]Gamaliel ayde 250 DO Work Phone: 27\S\27 above high threshold 7-25 [facility] [employer] ayde 250 DO Work Phone: 86\S\86 Normal 70-100 [facility] [employer]Gamaliel ayde 250 DO Work Phone: Comment on above: Random Glucose Refer ence Range is dependent on time and content of last meal. Glucose of more than 200 mg/dL in a nonstressed, ambulatory subject supports the diagnosis of Diabetes Mellitus. ADA recommended reference range 30.6\S\30.6 Normal 21.0-31.0 [facility] [employer]iel ayde 250 DO Work Phone: 104\S\104 Normal 98-107 [facility] ayde 250 DO Work Phone: 4.2\S\4.2 Normal 3.5-5.1 [facility] [employer] ayde 250 DO Work Phone: 141\S\141 Normal 136-145 [facility] ayde 250 DO Work Phone: 1.23\S\1.23 above high threshold 0.60-1.20 [facility] 250 DO Work Phone: 9.6\S\9.6 Normal 8.6-10.3 [facility] 250 DO Work Phone: Potassium [Moles/volume] in Serum or PlasmaOrdered By: Akhil Olivarez on 12-14-2022 Potassium [Moles/Vol] 4.2 mmol/L 3.5-5.1 [facility] Radiologyon 12-14-2022 XR Chest 2 Views Normal [facility] 250 DO Work Phone: Serum or plasma anion gap de terminationOrdered By: Akhil Olivarez on 12-14-2022 Anion gap [Moles/Vol] 10.6 mmol/L 6.0-15.0 [facility] Sodium [Moles/volume] in Ser um or PlasmaOrdered By: Akhil Olivarez on 12-14-2022 Sodium [Moles/Vol] 141 mmol/L 136-145 [facility] Thyroid Stimulating Hormoneo n 12-14-2022 TSH Qn 6.72 m[IU]/L High 0.45-5.33 [facility] Comment on above: Order Comment: PT IS FASTING Result Comment: PERF ORMED BY: [facility] [address] [place] [address] PATHOLOGIST RESOURCING CONSULTANT GIULIA VALERIO M.D. Performed By: #### B MP, AST, TSH3 #### [address] Thyrotropin [Units/volume] i n Serum or PlasmaOrdered By: Akhil Olivarez on 12-14-2022 TSH Qn 6.72 m[IU]/L 0.45-5.33 [facility] Urea nitrogen [Mass/volume] in Serum or PlasmaOrdered By: Akhil Olivarez on 12-14-2022 Urea nitrogen [Mass/Vol] 27 mg/dL 7-25 [facility] XR chest 2V*on 12-14-2022 XR chest 2V* [facility] [place] [address] XRay Report Signed Patient: Erin Canales MR#: [id number] : 1935 Acct:[id number] Age/Sex: 87 / F ADM Date: 12/14/22 Loc: XD Room: Type: [facility] Attending Dr: Akhil Olivarez MD Copies to: Akhil Olivarez MD Ordering Provider: Akhil Olivarez MD Date of Service: 12/14/22 XR/XR chest 2V*: I48.0,Z79.899 Chest 2 views CLINICAL HISTORY: Follow-up long-term high risk medication use. COMPARISON: Chest 11/23/2022 FINDINGS: Pacemaker device is in place. Heart is normal in size. Chronic interstitial changes involving the lung bases. No consolidation pneumothorax pleural effusion or free air. XR/XR chest 2V* IMPRESSION: NO ACUTE CARDIOPULMONARY ABNORMALITY. Impression dictated by: Aristides Estrada Jr., D.ORadha12/14/2022 11:55 AM Dictation Location: [place] [address] Transcribed By: 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 This developed in October 2021. She had surgery on her lower eye lid, she has tried therapy and steroids with no improvement. She has difficulty eating and drinking, sleeping and even smelling due to the facial drooping. She is scheduled for surgery on 12/18/2022. Cardiac cath done on 09/25/2022 PAST MEDICAL HISTORY Diagnosis Date MGUS (monoclonal gammopathy of unknown significance) No past surgical history on file. torsemide (DEMADEX) 5 mg tablet Take 5 mg by mouth. amiodarone (PACERONE) 200 mg tablet Take 200 mg by mouth. amLODIPine (NORVASC) 5 mg tablet Take 5 mg by mouth once daily. warfarin (COUMADIN) 6 mg tablet Take 2.5 mg by mouth. AMITRIPTYLINE 25 mg tablet Take 25 mg by mouth daily at bedtime. DIGOXIN (DIGITEK ORAL) Take 0.125 mg by mouth. carvedilol (COREG) 6.25 mg tablet Take 1 tablet by mouth twice daily. lisinopril 5 mg tablet Take 10 mg by mouth once daily. Allergies: ALLERGIES Allergen Reactions Motrin [Ibuprofen] Unknown Qmbzcyk-Tcm-Syc Red* Other: See Comments Cannot walk when she takes it No family history on file. Social History Tobacco Use Smoking status: Never Smokeless tobacco: Never Substance Use Topics Alcohol use: No REVIEW OF SYSTEMS As above General: No fever, chills Cardiac: + leg swelling. She has several stents and she is on blood thinners, AFib controlled with medications, CHF Respiratory: + SOB GI: No N/V or diarrhea Hematology: No blood thinners yes Coumadin All other reviewed and negative other than HPI. PHYSICAL EXAM: GEN: Well appearing, alert, in no acute distress, well-hydrated, well nourished. Left sided facial drooping Going from cranial to caudal, she is noted to be normal from the standpoint of cranial nerves on the right side of her face. On the left side she is noted to have no frontalis rhytids, brow ptosis, and inability to close the eyelid with lower eyelid ectropion and the cornea that is not completely protected by Alvarado's phenomenon. She has no nasolabial fold on the left and the mouth overall is pulled severely to the right side of the face. The commissure is depressed with mild drooling noted from the left side of the mouth. 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 As she is more than a year out and 87 years old I would not anticipate any further improvement in the status of her facial asymmetry. Her major complaints are that of eye pain due to constantly exposed cornea for which she manually pulls her upper eyelid down with secondary but very concerning complaint of severe oral asymmetry and drooling. She would like to have both of these addressed. Flitted for eyelid weight today, 16 was the best option. Consent obtained today. Any of these options will require the patient to be off Coumadin for the perioperative period 5 days before and it could be restarted 1 day after. Follow up at time of surgery on 12/18/2022. The patient is seen and examined by Dr. Sol and the following reflects his service. Scribed by Mattie Adkins RN I agree with the Chief Complaint, ROS, and Past Histories independently gathered by the clinical direct support professional and the remaining scribed note accurately describes my personal service to the patient. 30 Minutes total visit spent face to face with patient. Greater than 50% of the time was spent for counseling and coordination of care, discussing treatment options and recommendations. Provider Attestation: I, Shweta Sol MD, personally performed the services described in this documentation. All medical record entries made by the scribe were at my direction and in my presence. I have reviewed the chart and discharge instructions (if applicable) and agree that the record reflects my personal performance and is accurate and complete. Shweta Sol MD December 13, 2022 Allergies As of Date: 12/13/2022 Noted Allergy Reaction MOTRIN (IBUPROFEN) 10/29/2012 16 - Unknown [id number] REDUCTASE INHIBIT*08/25/2022 14 - Other: See Comments Comments: Cannot walk when she takes it Date Reviewed: 12/13/2022 Reviewed by: Amanda Chamberlain PCNA - Fully Assessed Reason for Visit: Follow Up [171] Primary Visit Di (more content not included)... Normal [facility] Basophils Auto (Bld) [#/Vol] Ordered By: Danilo Drummond on 11-24-2022 Basophils (Bld) [#/Vol] 0.1 10*3/uL 0.0-0.2 [facility] Basophils/100 WBC Auto (Bld) Ordered By: Danilo Drummond on 11-24-2022 Basophils/100 WBC (Bld) 1.1 % . [facility] Complete Blood Count Auto Di ffon 11-24-2022 Basophils (Bld) [#/Vol] 0.1 10*3/uL Normal 0.0-0.2 [facility] Comment on above: Result Comment: PERF ORMED BY: [place] [address] PATHOLOGIST RESOURCING CONSULTANT GIULIA VALERIO M.D. Performed By: #### P T #### [address] Basophils/100 WBC (Bld) 1.1 % Normal . [facility] Comment on above: Performed By: #### P T #### [facility] [address] Eosinophils (Bld) [#/Vol] 0.1 10*3/uL Normal 0.0-0.45 [facility] Comment on above: Performed By: #### P T #### [address] Eosinophils/100 WBC (Bld) 1.7 % Normal . [facility] Comment on above: Performed By: #### P T #### [facility] [address] Erythrocyte distribution width (RBC) [Ratio] 14.5 % Normal 11.9-15.3 [facility] Comment on above: Performed By: #### P T #### [address] Hematocrit (Bld) [Volume fraction] 34.5 % Normal 34.0-46.4 [facility] Comment on above: Performed By: #### P T #### [address] Hemoglobin (Bld) [Mass/Vol] 11.4 g/dL Low 11.8-15.4 [facility] Comment on above: Performed By: #### P T #### [address] Lymphocytes (Bld) [#/Vol] 1.2 10*3/uL Normal 1.00-4.8 [facility] Comment on above: Performed By: #### P T #### [address] Lymphocytes/100 WBC (Bld) 20.3 % Normal . [facility] Comment on above: Performed By: #### P T #### [address] MCH (RBC) [Entitic mass] 31.9 pg Normal 24.7-34.3 [facility] Comment on above: Performed By: #### P T #### [address] MCV (RBC) [Entitic vol] 96.2 fL Normal 80-100 [facility] Comment on above: Performed By: #### P T #### [address] Mean Corpuscular HGB Conc 33.1 g/dL Normal 32.0-35.0 [facility] Comment on above: Performed By: #### P T #### [address] Monocytes (Bld) [#/Vol] 0.5 10*3/uL Normal 0.0-0.8 [facility] Comment on above: Performed By: #### P T #### [address] Monocytes/100 WBC (Bld) 8.8 % Normal . [facility] Comment on above: Performed By: #### P T #### [address] Neutrophils (Bld) [#/Vol] 4.0 10*3/uL Normal 1.8-7.7 [facility] Comment on above: Performed By: #### P T #### [address] Neutrophils/100 WBC (Bld) 68.1 % Normal . [facility] Comment on above: Performed By: #### P T #### [address] NRBC% 0.1 /100{WBC} Normal 0-0.5 [facility] Comment on above: Performed By: #### P T #### [address] Platelet mean volume (Bld) [Entitic vol] 7.6 fL Normal 6.3-10.7 [facility] Comment on above: Performed By: #### P T #### [address] Platelets (Bld) [#/Vol] 164 10*3/uL Normal 150-450 [facility] Comment on above: Performed By: #### P T #### [address] RBC (Bld) [#/Vol] 3.59 10*6/uL Low 3.60-5.00 [facility] Comment on above: Performed By: #### P T #### [address] WBC (Bld) [#/Vol] 5.8 10*3/uL Normal 3.8-11.6 [facility] Comment on above: Performed By: #### P T #### [address] Eosinophils Auto (Bld) [#/Vo l]Ordered By: Danilo Drummond on 11-24-2022 Eosinophils (Bld) [#/Vol] 0.1 10*3/uL 0.0-0.45 [facility] Eosinophils/100 WBC Auto (Bl d)Ordered By: Danilo Drummond on 11-24-2022 Eosinophils/100 WBC (Bld) 1.7 % . [facility] Erythrocyte distribution wid th Auto (RBC) [Ratio]Ordered By: Danilo Drummond on 11-24-2022 Erythrocyte distribution width (RBC) [Ratio] 14.5 % 11.9-15.3 [facility] Hematocrit Auto (Bld) [Volum e fraction]Ordered By: Danilo Drummond on 11-24-2022 Hematocrit (Bld) [Volume fraction] 34.5 % 34.0-46.4 [facility] Hemoglobin [Mass/volume] in BloodOrdered By: Danilo Drummond on 11-24-2022 Hemoglobin (Bld) [Mass/Vol] 11.4 g/dL 11.8-15.4 [facility] INR in Platelet poor plasma by Coagulation assayOrdered By: Jamie Hathaway on 11-24-2022 INR Coag (PPP) [Relative time] 1.2 {INR} [facility] Comment on above: INR Therapeutic Rang e A) Pre- and Peroperative OAT started two weeks before surgery. NOT HIP SURGERY: 1.5 - 2.5 HIP SURGERY: 2 - 3B) Primary and secondary prevention of venous THROMBOSIS: 2 - 3C) Active venous thrombosis, pulmonary embolismand prevention of recurrent venous thrombosis: 2 - 3D) Prevention of arterial thromboembolismincluding patients with mechanical heart valves: 3 - 4.5 Laboratory - CoagulationOrde red By: Jamie Hathaway on 11-24-2022 PT Coag (PPP) [Time] 14.0 s 9.0-12.9 [facility] Leukocytes [#/volume] correc basim for nucleated erythrocytes in Blood by Automated counOrdered By: Danilo Drummond on 11-24-2022 WBC corrected for nucl RBC Auto (Bld) [#/Vol] 5.8 10*3/uL 3.8-11.6 [facility] Lymphocytes Auto (Bld) [#/Vo l]Ordered By: Danilo Drummond on 11-24-2022 Lymphocytes (Bld) [#/Vol] 1.2 10*3/uL 1.00-4.8 [facility] Lymphocytes/100 WBC Auto (Bl d)Ordered By: Danilo Drummond on 11-24-2022 Lymphocytes/100 WBC (Bld) 20.3 % . [facility] MCH Auto (RBC) [Entitic mass ]Ordered By: Danilo Drummond on 11-24-2022 MCH (RBC) [Entitic mass] 31.9 pg 24.7-34.3 [facility] MCHC Auto (RBC) [Mass/Vol]Or dered By: Danilo Drummond on 11-24-2022 MCHC (RBC) [Mass/Vol] 33.1 g/dL 32.0-35.0 [facility] MCV Auto (RBC) [Entitic vol] Ordered By: Danilo Drummond on 11-24-2022 MCV (RBC) [Entitic vol] 96.2 fL 80-100 [facility] Monocytes Auto (Bld) [#/Vol] Ordered By: Danilo Drummond on 11-24-2022 Monocytes (Bld) [#/Vol] 0.5 10*3/uL 0.0-0.8 [facility] Monocytes/100 WBC Auto (Bld) Ordered By: Danilo Drummond on 11-24-2022 Monocytes/100 WBC (Bld) 8.8 % . [facility] Neutrophils Auto (Bld) [#/Vo l]Ordered By: Danilo Drummond on 11-24-2022 Neutrophils (Bld) [#/Vol] 4.0 10*3/uL 1.8-7.7 [facility] Neutrophils/100 WBC Auto (Bl d)Ordered By: Danilo Drummond on 11-24-2022 Neutrophils/100 WBC (Bld) 68.1 % . [facility] Nucleated erythrocytes [Pres ence] in Blood by Automated countOrdered By: Danilo Drummond on 11-24-2022 Nucleated RBC Auto Ql (Bld) 0.1 /100{WBC} 0-0.5 [facility] Platelet mean volume Auto (B ld) [Entitic vol]Ordered By: Danilo Drummond on 11-24-2022 Platelet mean volume (Bld) [Entitic vol] 7.6 fL 6.3-10.7 [facility] Platelets Auto (Bld) [#/Vol] Ordered By: Danilo Drummond on 11-24-2022 Platelets (Bld) [#/Vol] 164 10*3/uL 150-450 [facility] Prothrombin Time INRon 11-24 INR Coag (PPP) [Relative time] 1.2 {INR} Normal [facility] Comment on above: Result Comment: INR Therapeutic Range A) Pre- and Peroperative OAT started two weeks before surgery. NOT HIP SURGERY: 1.5 - 2.5 HIP SURGERY: 2 - 3 B) Primary and secondary prevention of venous THROMBOSIS: 2 - 3 C) Active venous thrombosis, pulmonary embolism and prevention of recurrent venous thrombosis: 2 - 3 D) Prevention of arterial thromboembolism including patients with mechanical heart valves: 3 - 4.5 PERFORMED BY: [place] [address] PATHOLOGIST RESOURCING CONSULTANT GIULIA VALERIO M.D. Performed By: #### B MP, AST, TSH3 #### [facility] [address] [place] [address] PT Coag (PPP) [Time] 14.0 s High 9.0-12.9 [facility] Comment on above: Performed By: #### B MP, AST, TSH3 #### [facility] [address] [place] [address] RBC Auto (Bld) [#/Vol]Ordere d By: Danilo Drummond on 11-24-2022 RBC (Bld) [#/Vol] 3.59 10*6/uL 3.60-5.00 [facility] WBC Auto (Bld) [#/Vol]Ordere d By: aDnilo Drummond on 11-24-2022 WBC (Bld) [#/Vol] 5.8 10*3/uL 3.8-11.6 [facility] Basic Metabolic Panelon 11-07 Anion gap [Moles/Vol] 10.1 mmol/L Normal 6.0-15.0 [facility] Comment on above: Performed By: #### B MP, AST, TSH3 #### [address] Calcium [Mass/Vol] 8.2 mg/dL Low 8.6-10.3 [facility] Comment on above: Performed By: #### B WALTER AST, TSH3 #### [facility] [address] Chloride [Moles/Vol] 103 mmol/L Normal 98-107 [facility] Comment on above: Performed By: #### B WALTER AST, TSH3 #### [address] CO2 [Moles/Vol] 26.3 mmol/L Normal 21.0-31.0 [facility] Comment on above: Performed By: #### B WALTER AST, TSH3 #### [address] Creatinine [Mass/Vol] 1.01 mg/dL Normal 0.60-1.20 [facility] Comment on above: Performed By: #### B WALTER AST, TSH3 #### [address] Creatinine Clr Calc Pharmacy 39.79 Normal [facility] Comment on above: Result Comment: PERF ORMED BY: [place] [address] PATHOLOGIST RESOURCING CONSULTANT GIULIA VALERIO M.D. Performed By: #### B WALTER AST, TSH3 #### [address] GFR/1.73 sq M.predicted MDRD (S/P/Bld) [Vol rate/Area] 53.544 mL/min/{1.73_m2} Normal [facility] Comment on above: Performed By: #### B WALTER AST, TSH3 #### [address] Glucose [Mass/Vol] 101 mg/dL High 70-100 [facility] Comment on above: Result Comment: [place] Glucose Reference Range is dependent on time and content of last meal. Glucose of more than 200 mg/dL in a nonstressed, ambulatory subject supports the diagnosis of Diabetes Mellitus. ADA recommended reference range Performed By: #### B MP, AST, TSH3 #### [facility] [address] [place] [address] [place] Potassium [Moles/Vol] 4.4 mmol/L Normal 3.5-5.1 [facility] Comment on above: Performed By: #### B MP, AST, TSH3 #### [facility] [address] [place] [address] [place] Sodium [Moles/Vol] 135 mmol/L Low 136-145 [facility] Comment on above: Performed By: #### B MP, AST, TSH3 #### [facility] [address] [place] [address] [place] Urea nitrogen [Mass/Vol] 25 mg/dL Normal 7-25 [facility] Comment on above: Performed By: #### B MP, AST, TSH3 #### [facility] [address] Calcium [Mass/volume] in Ser um or PlasmaOrdered By: Danilo Drummond on 11-23-2022 Calcium [Mass/Vol] 8.2 mg/dL 8.6-10.3 [facility] Carbon dioxide, total [Moles /volume] in Serum or PlasmaOrdered By: Danilo Drummond on 11-23-2022 CO2 [Moles/Vol] 26.3 mmol/L 21.0-31.0 [facility] Chloride [Moles/volume] in S payal or PlasmaOrdered By: Danilo Drummond on 11-23-2022 Chloride [Moles/Vol] 103 mmol/L 98-107 [facility] Creatinine [Mass/volume] in Serum or PlasmaOrdered By: Danilo Drummond on 11-23-2022 Creatinine [Mass/Vol] 1.01 mg/dL 0.60-1.20 [facility] Glucose [Mass/volume] in Ser um or PlasmaOrdered By: Danilo Drummond on 11-23-2022 Glucose [Mass/Vol] 101 mg/dL 70-100 [facility] Comment on above: ADA recommended refe rence rangeRandom Glucose Reference Range is dependent on time and content of last meal. Glucose of more than 200 mg/dL in a nonstressed, ambulatory subject supports the diagnosis of Diabetes Mellitus. No Panel InformationOrdered By: Danilo Drummond on 11-23-2022 Estimated GFR (CKD-EPI) 53.544 mL/Min [facility] Creatinine Clearance (Chem 39.79 [facility] Potassium [Moles/volume] in Serum or PlasmaOrdered By: Danilo Drummond on 11-23-2022 Potassium [Moles/Vol] 4.4 mmol/L 3.5-5.1 [facility] Prothrombin Time INRon 11-23 INR Coag (PPP) [Relative time] 1.2 {INR} Normal [facility] Comment on above: Result Comment: INR Therapeutic Range A) Pre- and Peroperative OAT started two weeks before surgery. NOT HIP SURGERY: 1.5 - 2.5 HIP SURGERY: 2 - 3 B) Primary and secondary prevention of venous THROMBOSIS: 2 - 3 C) Active venous thrombosis, pulmonary embolism and prevention of recurrent venous thrombosis: 2 - 3 D) Prevention of arterial thromboembolism including patients with mechanical heart valves: 3 - 4.5 PERFORMED BY: [place] [address] PATHOLOGIST RESOURCING CONSULTANT GIULIA VALERIO M.D. Performed By: #### P T #### [facility] [address] [place] [address] PT Coag (PPP) [Time] 13.8 s High 9.0-12.9 [facility] Comment on above: Performed By: #### P T #### [facility] [address] [place] [address] Serum or plasma anion gap de terminationOrdered By: Danilo Drummond on 11-23-2022 Anion gap [Moles/Vol] 10.1 mmol/L 6.0-15.0 [facility] Sodium [Moles/volume] in Ser um or PlasmaOrdered By: Danilo Drummond on 11-23-2022 Sodium [Moles/Vol] 135 mmol/L 136-145 [facility] Urea nitrogen [Mass/volume] in Serum or PlasmaOrdered By: Danilo Drummond on 11-23-2022 Urea nitrogen [Mass/Vol] 25 mg/dL 10-31 [facility] XR chest 2V*on 11-23-2022 XR chest 2V* [facility] [place] [address] [place] [id number] XRay Report Signed Patient: Erin Canales MR#: [id number] : 1935 Acct:[id number] Age/Sex: 87 / F ADM Date: 11/19/22 Loc: Room: [address] [place] [address] Type: ADM IN Attending Dr: Danilo Drummond MD Copies to: MD Akhil Soto MD Ordering Provider: Akhil Olivarez MD Date of Service: 11/23/22 XR/XR chest 2V*: Rule out pneumothorax on only new implants cases in am PA AND LATERAL CHEST: CLINICAL HISTORY: Follow-up after pacemaker placement COMPARISON: 11/22/2022 A left-sided pacemaker is again visualized. The leads are intact and unchanged in position. The heart is mildly prominent. No vascular congestion is noted. There is minor blunting of the costophrenic angles and a trace amount pleural fluid is not excluded. There is no pneumothorax. The bony structures are osteopenic. Degenerative changes are visualized at the spine. XR/XR chest 2V* IMPRESSION: STABLE APPEARANCE OF PACEMAKER. NO POSTPROCEDURE PNEUMOTHORAX. MILD CARDIOMEGALY. QUESTION OF MINIMAL PLEURAL FLUID. Impression dictated by: Christine Aguila M.D.11/23/2022 7:23 AM Dictation Location: [place] [address] Transcribed By: [facility] 11/23/22722 Dictated By: Christine Aguila MD 11/23/22 0721 Signed By: 11/23/22722 Normal [facility] Activated partial thrombopla stin time (aPTT) in platelet poor plasma by coagulation aOrdered By: Akhil Olivarez on 11-22-2022 aPTT Coag (PPP) [Time] 32.5 s 25.1-36.5 [facility] Basic Metabolic Panelon 11-07 Anion gap [Moles/Vol] 10.9 mmol/L Normal 6.0-15.0 [facility] Comment on above: Performed By: #### B WALTER AST, TSH3 #### [address] Calcium [Mass/Vol] 8.3 mg/dL Low 8.6-10.3 [facility] Comment on above: Performed By: #### B MP, AST, TSH3 #### [address] Chloride [Moles/Vol] 101 mmol/L Normal 98-107 [facility] Comment on above: Performed By: #### B WALTER, AST, TSH3 #### [address] CO2 [Moles/Vol] 24.4 mmol/L Normal 21.0-31.0 [facility] Comment on above: Performed By: #### B WALTER, AST, TSH3 #### [address] Creatinine [Mass/Vol] 1.25 mg/dL High 0.60-1.20 [facility] Comment on above: Performed By: #### B WALTER, AST, TSH3 #### [address] Creatinine Clr Calc Pharmacy 32.56 [facility] Comment on above: Result Comment: PERF ORMED BY: [place] [address] PATHOLOGIST RESOURCING CONSULTANT GIULIA VALERIO M.D. Performed By: #### B MP, AST, TSH3 #### [address] GFR/1.73 sq M.predicted MDRD (S/P/Bld) [Vol rate/Area] 41.457 mL/min/{1.73_m2} [facility] Comment on above: Performed By: #### B MP, AST, TSH3 #### [address] Glucose [Mass/Vol] 106 mg/dL High 70-100 [facility] Comment on above: Result Comment: [facility] Glucose Reference Range is dependent on time and content of last meal. Glucose of more than 200 mg/dL in a nonstressed, ambulatory subject supports the diagnosis of Diabetes Mellitus. ADA recommended reference range Performed By: #### B MP, AST, TSH3 #### [facility] [address] Potassium [Moles/Vol] 4.3 mmol/L Normal 3.5-5.1 [facility] Comment on above: Performed By: #### B MP, AST, TSH3 #### [address] Sodium [Moles/Vol] 132 mmol/L Low 136-145 [facility] Comment on above: Performed By: #### B MP, AST, TSH3 #### [address] Urea nitrogen [Mass/Vol] 27 mg/dL High 7-25 [facility] Comment on above: Performed By: #### B MP, AST, TSH3 #### [address] Complete Blood Count Auto Di ffon 11-22-2022 Basophils (Bld) [#/Vol] 0.0 10*3/uL Normal 0.0-0.2 [facility] Comment on above: Result Comment: PERF ORMED BY: [place] [address] PATHOLOGIST RESOURCING CONSULTANT GIULIA VALERIO M.D. Performed By: #### B MP, AST, TSH3 #### [address] Basophils/100 WBC (Bld) 0.8 % Normal . [facility] Comment on above: Performed By: #### B MP, AST, TSH3 #### [address] Eosinophils (Bld) [#/Vol] 0.1 10*3/uL Normal 0.0-0.45 [facility] Comment on above: Performed By: #### B MP, AST, TSH3 #### [address] Eosinophils/100 WBC (Bld) 2.0 % Normal . [facility] Comment on above: Performed By: #### B MP, AST, TSH3 #### [address] Erythrocyte distribution width (RBC) [Ratio] 14.7 % Normal 11.9-15.3 [facility] Comment on above: Performed By: #### B MP, AST, TSH3 #### [address] Hematocrit (Bld) [Volume fraction] 40.3 % Normal 34.0-46.4 [facility] Comment on above: Performed By: #### B MP, AST, TSH3 #### [address] Hemoglobin (Bld) [Mass/Vol] 13.3 g/dL Normal 11.8-15.4 [facility] Comment on above: Performed By: #### B MP, AST, TSH3 #### [address] Lymphocytes (Bld) [#/Vol] 1.0 10*3/uL Normal 1.00-4.8 [facility] Comment on above: Performed By: #### B MP, AST, TSH3 #### [address] Lymphocytes/100 WBC (Bld) 17.8 % Normal . [facility] Comment on above: Performed By: #### B MP, AST, TSH3 #### [address] MCH (RBC) [Entitic mass] 31.7 pg Normal 24.7-34.3 [facility] Comment on above: Performed By: #### B MP, AST, TSH3 #### [address] MCV (RBC) [Entitic vol] 96.0 fL Normal 80-100 [facility] Comment on above: Performed By: #### B MP, AST, TSH3 #### [address] Mean Corpuscular HGB Conc 33.0 g/dL Normal 32.0-35.0 [facility] Comment on above: Performed By: #### B MP, AST, TSH3 #### [address] Monocytes (Bld) [#/Vol] 0.5 10*3/uL Normal 0.0-0.8 [facility] Comment on above: Performed By: #### B MP, AST, TSH3 #### [address] Monocytes/100 WBC (Bld) 9.6 % Normal . [facility] Comment on above: Performed By: #### B MP, AST, TSH3 #### [address] Neutrophils (Bld) [#/Vol] 3.9 10*3/uL Normal 1.8-7.7 [facility] Comment on above: Performed By: #### B MP, AST, TSH3 #### [address] Neutrophils/100 WBC (Bld) 69.8 % Normal . [facility] Comment on above: Performed By: #### B MP, AST, TSH3 #### [address] NRBC% 0.1 /100{WBC} Normal 0-0.5 [facility] Comment on above: Performed By: #### B MP, AST, TSH3 #### [address] Platelet mean volume (Bld) [Entitic vol] 7.5 fL Normal 6.3-10.7 [facility] Comment on above: Performed By: #### B MP, AST, TSH3 #### [address] [place] [address] [place] Platelets (Bld) [#/Vol] 172 10*3/uL Normal 150-450 [facility] Comment on above: Performed By: #### B MP, AST, TSH3 #### [facility] [address] RBC (Bld) [#/Vol] 4.20 10*6/uL Normal 3.60-5.00 [facility] Comment on above: Performed By: #### B MP, AST, TSH3 #### [facility] [address] [place] [id number] [facility] WBC (Bld) [#/Vol] 5.5 10*3/uL Normal 3.8-11.6 [facility] Comment on above: Performed By: #### B MP, AST, TSH3 #### [facility] [address] ECG 12 lead ECGon 11-22-2022 ECG 12 lead ECG [facility] [place] [address] [place] [address] Electrocardiograph Report Signed Patient: Erin Canales MR#: [id number] : 1935 Acct:[id number] Age/Sex: 87 / F ADM Date: 11/19/22 Loc: Room: [address] [place] [address] Type: ADM IN Attending Dr: Danilo Drummond MD Ordering Provider: Akhil Olivarez MD Date of Service: 11/22/22 ECG/ECG 12 lead ECG: pre-op pacemaker Copies to: Test Reason : Blood Pressure : / mmHG Vent. Rate : 045 BPM Atrial Rate : 045 BPM P-R Int : 176 ms QRS Dur : 106 ms QT Int : 388 ms P-R-T Axes : 088 -16 023 degrees QTc Int : 335 ms Sinus bradycardia with premature supraventricular complexes Inferior infarct , age undetermined Possible Anterior infarct (cited on or before 28-OCT-2021) Abnormal ECG When compared with ECG of 19-NOV-2022 07:47, premature supraventricular complexes are now present QT has shortened Confirmed by STEPHANIE ARTEAGA MD ([id number]) on 11/22/2022 11:07:53 AM Referred By: Electronically Signed By:STEPHANIE ARTEAGA MD Transcribed By: [facility] Signed By Stephanie Arteaga MD [id number] Normal [facility] Partial Thromboplastin Timeo n 11-22-2022 aPTT Coag (Bld) [Time] 32.5 s Normal 25.1-36.5 [facility] Comment on above: Result Comment: PERF ORMED BY: [place] [address] PATHOLOGIST RESOURCING CONSULTANT GIULIA VALERIO M.D. Performed By: #### B MP, AST, TSH3 #### [facility] [address] [place] [address] Prothrombin Time INRon 11-22 INR Coag (PPP) [Relative time] 1.2 {INR} [facility] Comment on above: Result Comment: INR Therapeutic Range A) Pre- and Peroperative OAT started two weeks before surgery. NOT HIP SURGERY: 1.5 - 2.5 HIP SURGERY: 2 - 3 B) Primary and secondary prevention of venous THROMBOSIS: 2 - 3 C) Active venous thrombosis, pulmonary embolism and prevention of recurrent venous thrombosis: 2 - 3 D) Prevention of arterial thromboembolism including patients with mechanical heart valves: 3 - 4.5 Performed By: #### B MP, AST, TSH3 #### [address] PT Coag (PPP) [Time] 13.7 s High 9.0-12.9 [facility] Comment on above: Performed By: #### B MP, AST, TSH3 #### [place] [id number] [place] XR chest 1V portableon 11-22 XR chest 1V portable [facility] [place] [address] [place] [address] XRay Report Signed Patient: Erin Canales MR#: [id number] : 1935 Acct:[id number] Age/Sex: 87 / F ADM Date: 11/19/22 Loc: Room: 6S1400-7 Type: ADM IN Attending Dr: Danilo Drummond MD Copies to: MD Akhil Soto MD Ordering Provider: Akhil Olivarez MD Date of Service: 11/22/22 XR/XR chest 1V portable: Rule out pneumothorax on all pacemaker cases post op PORTABLE AP ERECT CHEST 1152 hours CLINICAL HISTORY: Follow-up after pacemaker placement COMPARISON: 11/17/2022 A new dual-lead left-sided pacemaker is present. The leads appear intact and in appropriate position. There is shallow inspiration and crowding of basilar lung markings. There is no other consolidation. No pleural effusion or pneumothorax is identified. The heart is mildly prominent. The hilar and mediastinal contours are similar. There is endplate spurring at the spine. XR/XR chest 1V portable IMPRESSION: SATISFACTORY APPEARANCE OF PACEMAKER. NO POSTPROCEDURE PNEUMOTHORAX. SHALLOW INSPIRATION WITH MINOR BASILAR ATELECTASIS. MILD CARDIOMEGALY. Impression dictated by: Christine Aguila M.D.11/22/2022 12:08 PM Dictation Location: [place] [address] Transcribed By: [facility] 11/22/22 1208 Dictated By: Christine Aguila MD 11/22/22 1203 Signed By: 11/22/22 1208 [facility] Potassiumon 11-21-2022 Potassium [Moles/Vol] 4.3 mmol/L Normal 3.5-5.1 [facility] Comment on above: Order Comment: PT IS FASTING Result Comment: PERF ORMED BY: [place] [address] PATHOLOGIST RESOURCING CONSULTANT GIULIA VALERIO M.D. Performed By: #### B MP, AST, TSH3 #### [address] Prothrombin Time INRon 11-21 INR Coag (PPP) [Relative time] 1.5 {INR} [facility] Comment on above: Result Comment: INR Therapeutic Range A) Pre- and Peroperative OAT started two weeks before surgery. NOT HIP SURGERY: 1.5 - 2.5 HIP SURGERY: 2 - 3 B) Primary and secondary prevention of venous THROMBOSIS: 2 - 3 C) Active venous thrombosis, pulmonary embolism and prevention of recurrent venous thrombosis: 2 - 3 D) Prevention of arterial thromboembolism including patients with mechanical heart valves: 3 - 4.5 PERFORMED BY: [place] [address] PATHOLOGIST RESOURCING CONSULTANT GIULIA VALERIO M.D. Performed By: #### B MP, AST, TSH3 #### [address] PT Coag (PPP) [Time] 17.7 s Significant change up 9.0-12.9 [facility] Comment on above: Performed By: #### B MP, AST, TSH3 #### [address] Basic Metabolic Panelon 11-07 Anion gap [Moles/Vol] 11.9 mmol/L Normal 6.0-15.0 [facility] Comment on above: Performed By: #### C BC, BMP #### [address] Calcium [Mass/Vol] 8.4 mg/dL Low 8.6-10.3 [facility] Comment on above: Performed By: #### C BC, BMP #### [address] Chloride [Moles/Vol] 99 mmol/L Normal 98-107 [facility] Comment on above: Performed By: #### C BC, BMP #### [address] CO2 [Moles/Vol] 23.3 mmol/L Normal 21.0-31.0 [facility] Comment on above: Performed By: #### C BC, BMP #### [address] Creatinine [Mass/Vol] 1.06 mg/dL Normal 0.60-1.20 [facility] Comment on above: Performed By: #### C BC, BMP #### [address] Creatinine Clr Calc Pharmacy 38.40 Normal [facility] Comment on above: Result Comment: PERF ORMED BY: [place] [address] PATHOLOGIST RESOURCING CONSULTANT GIULIA VALERIO M.D. Performed By: #### C BC, BMP #### [facility] [address] [place] [address] [place] GFR/1.73 sq M.predicted MDRD (S/P/Bld) [Vol rate/Area] 50.528 mL/min/{1.73_m2} Normal [facility] Comment on above: Performed By: #### C BC, BMP #### [address] Glucose [Mass/Vol] 105 mg/dL High 70-100 [facility] Comment on above: Result Comment: [place] Glucose Reference Range is dependent on time and content of last meal. Glucose of more than 200 mg/dL in a nonstressed, ambulatory subject supports the diagnosis of Diabetes Mellitus. ADA recommended reference range Performed By: #### C BC, BMP #### [address] Potassium [Moles/Vol] 4.2 mmol/L Normal 3.5-5.1 [facility] Comment on above: Performed By: #### C BC, BMP #### [place] [address] [place] Sodium [Moles/Vol] 130 mmol/L Low 136-145 [facility] Comment on above: Performed By: #### C BC, BMP #### [facility] [address] [place] [address] [place] Urea nitrogen [Mass/Vol] 19 mg/dL Normal 7-25 [facility] Comment on above: Performed By: #### C BC, BMP #### [address] Complete Blood Count Auto Di ffon 11-20-2022 Basophils (Bld) [#/Vol] 0.0 10*3/uL Normal 0.0-0.2 [facility] Comment on above: Result Comment: PERF ORMED BY: [place] [address] PATHOLOGIST RESOURCING CONSULTANT GIULIA VALERIO M.D. Performed By: #### C BC, BMP #### [address] Basophils/100 WBC (Bld) 0.9 % Normal . [facility] Comment on above: Performed By: #### C BC, BMP #### [address] Eosinophils (Bld) [#/Vol] 0.1 10*3/uL Normal 0.0-0.45 [facility] Comment on above: Performed By: #### C BC, BMP #### [address] Eosinophils/100 WBC (Bld) 2.0 % Normal . [facility] Comment on above: Performed By: #### C BC, BMP #### [address] Erythrocyte distribution width (RBC) [Ratio] 14.6 % Normal 11.9-15.3 [facility] Comment on above: Performed By: #### C BC, BMP #### [address] Hematocrit (Bld) [Volume fraction] 39.3 % Normal 34.0-46.4 [facility] Comment on above: Performed By: #### C BC, BMP #### [address] Hemoglobin (Bld) [Mass/Vol] 13.1 g/dL Normal 11.8-15.4 [facility] Comment on above: Performed By: #### C BC, BMP #### [place] [address] [place] Lymphocytes (Bld) [#/Vol] 1.2 10*3/uL Normal 1.00-4.8 [facility] Comment on above: Performed By: #### C BC, BMP #### [address] Lymphocytes/100 WBC (Bld) 21.8 % Normal . [facility] Comment on above: Performed By: #### C BC, BMP #### [address] MCH (RBC) [Entitic mass] 32.0 pg Normal 24.7-34.3 [facility] Comment on above: Performed By: #### C BC, BMP #### [address] MCV (RBC) [Entitic vol] 96.1 fL Normal 80-100 [facility] Comment on above: Performed By: #### C BC, BMP #### [address] Mean Corpuscular HGB Conc 33.4 g/dL Normal 32.0-35.0 [facility] Comment on above: Performed By: #### C BC, BMP #### [address] Monocytes (Bld) [#/Vol] 0.5 10*3/uL Normal 0.0-0.8 [facility] Comment on above: Performed By: #### C BC, BMP #### [address] Monocytes/100 WBC (Bld) 9.8 % Normal . [facility] Comment on above: Performed By: #### C BC, BMP #### [address] Neutrophils (Bld) [#/Vol] 3.5 10*3/uL Normal 1.8-7.7 [facility] Comment on above: Performed By: #### C BC, BMP #### [address] Neutrophils/100 WBC (Bld) 65.5 % Normal . [facility] Comment on above: Performed By: #### C BC, BMP #### [address] NRBC% 0.1 /100{WBC} Normal 0-0.5 [facility] Comment on above: Performed By: #### C BENJAMIN, BMP #### [address] Platelet mean volume (Bld) [Entitic vol] 7.6 fL Normal 6.3-10.7 [facility] Comment on above: Performed By: #### C BENJAMIN, BMP #### [address] Platelets (Bld) [#/Vol] 167 10*3/uL Normal 150-450 [facility] Comment on above: Performed By: #### C BENJAMIN, BMP #### [address] RBC (Bld) [#/Vol] 4.09 10*6/uL Normal 3.60-5.00 [facility] Comment on above: Performed By: #### C BENJAMIN, BMP #### [address] WBC (Bld) [#/Vol] 5.3 10*3/uL Normal 3.8-11.6 [facility] Comment on above: Performed By: #### C BENJAMIN, BMP #### [address] Free T4 (Free Thyroxine)on 0 11-20-2022 Free T4 [Mass/Vol] 0.68 ng/dL Normal 0.61-1.12 [facility] Comment on above: Order Comment: Comme nt Add to an already drawn sample Result Comment: PERF ORMED BY: [place] [address] PATHOLOGIST RESOURCING CONSULTANT GIULIA VALERIO M.D. Performed By: #### C BENJAMIN, BMP #### [address] Prothrombin Time INRon 11-20 INR Coag (PPP) [Relative time] 3.4 {INR} Normal [facility] Comment on above: Result Comment: INR Therapeutic Range A) Pre- and Peroperative OAT started two weeks before surgery. NOT HIP SURGERY: 1.5 - 2.5 HIP SURGERY: 2 - 3 B) Primary and secondary prevention of venous THROMBOSIS: 2 - 3 C) Active venous thrombosis, pulmonary embolism and prevention of recurrent venous thrombosis: 2 - 3 D) Prevention of arterial thromboembolism including patients with mechanical heart valves: 3 - 4.5 PERFORMED BY: [place] [address] PATHOLOGIST RESOURCING CONSULTANT GIULIA VALERIO M.D. Performed By: #### B WALTER, AST, TSH3 #### [address] PT Coag (PPP) [Time] 38.7 s High 9.0-12.9 [facility] Comment on above: Performed By: #### B WALTER, AST, TSH3 #### [address] Thyroxine (T4) free [Mass/vo lume] in Serum or PlasmaOrdered By: Danilo Drummond on 11-20-2022 Free T4 [Mass/Vol] 0.68 ng/dL 0.61-1.12 [facility] US venous duplex LE BIon US venous duplex LE BI [facility] [place] [address] [place] [address] Ultrasound Report Signed Patient: Erin Canales MR#: [id number] : 1935 Acct:[id number] Age/Sex: 87 / F ADM Date: 11/19/22 Loc: Room: [address] [place] [address] Type: ADM IN Attending Dr: Danilo Drummond MD Ordering Provider: Danilo Drummond MD Date of Service: 11/20/22 US/US venous duplex LE BI: Edema r/o DVT Copies to: Danilo Drummond MD BILATERAL LOWER EXTREMITY VENOUS DUPLEX INDICATION: Swollen legs PROCEDURE: Color-flow duplex scanning is used to interrogate the deep venous system of the right and left lower extremities. The common femoral vein, femoral vein and popliteal vein show good compressibility with normal proximal and distal augmentation. The posterior tibial and peroneal veins are compressible. US/US venous duplex LE BI IMPRESSION: NO EVIDENCE FOR DEEP VEIN THROMBOSIS OR PROXIMAL SUPERFICIAL THROMBOPHLEBITIS IN THE RIGHT OR LEFT LOWER EXTREMITY. Impression dictated by: Jag Calles M.D.11/20/2022 2:07 PM Dictation Location: [place] [address] Tech: Nina Vivar Transcribed By: ANNA 11/20/221406 Dictated By: Jag Calles MD 11/20/221405 Signed By: 11/20/221406 [facility] Basic Metabolic Panelon 11-07 Anion gap [Moles/Vol] 9.3 mmol/L Normal 6.0-15.0 [facility] Comment on above: Performed By: #### C BENJAMIN, BMP #### [facility] [address] [place] [address] Calcium [Mass/Vol] 8.5 mg/dL Low 8.6-10.3 [facility] Comment on above: Performed By: #### C BC, BMP #### [facility] [address] [place] [address] [place] Chloride [Moles/Vol] 97 mmol/L Low 98-107 [facility] Comment on above: Performed By: #### C BC, BMP #### [facility] [address] [place] [address] CO2 [Moles/Vol] 27.7 mmol/L Normal 21.0-31.0 [facility] Comment on above: Performed By: #### C BC, BMP #### [facility] [address] [place] [address] [place] Creatinine [Mass/Vol] 0.94 mg/dL Normal 0.60-1.20 [facility] Comment on above: Performed By: #### C BC, BMP #### [facility] [address] [place] [address] [place] Creatinine Clr Calc Pharmacy 43.30 [facility] Comment on above: Result Comment: PERF ORMED BY: [place] [address] PATHOLOGIST RESOURCING CONSULTANT GIULIA VALERIO M.D. Performed By: #### C BC, BMP #### [facility] [address] [place] [address] [place] GFR/1.73 sq M.predicted MDRD (S/P/Bld) [Vol rate/Area] 58.364 mL/min/{1.73_m2} Normal [facility] Comment on above: Performed By: #### C BC, BMP #### [facility] [address] Glucose [Mass/Vol] 105 mg/dL High 70-100 [facility] Comment on above: Result Comment: [facility] Glucose Reference Range is dependent on time and content of last meal. Glucose of more than 200 mg/dL in a nonstressed, ambulatory subject supports the diagnosis of Diabetes Mellitus. ADA recommended reference range Performed By: #### C BC, BMP #### [facility] [address] [place] [address] [place] Potassium [Moles/Vol] 4.0 mmol/L Normal 3.5-5.1 [facility] Comment on above: Performed By: #### C BC, BMP #### [facility] [address] [place] [address] [place] Sodium [Moles/Vol] 130 mmol/L Low 136-145 [facility] Comment on above: Performed By: #### C BC, BMP #### [facility] [address] [place] [address] [place] Urea nitrogen [Mass/Vol] 18 mg/dL Normal 7-25 [facility] Comment on above: Performed By: #### C BC, BMP #### [facility] [address] [place] [address] [place] ECG 12 lead ECGon 11-19-2022 ECG 12 lead ECG [facility] [place] [address] [place] [address] Electrocardiograph Report Signed Patient: Erin Canales MR#: [id number] : 1935 Acct:[id number] Age/Sex: 87 / F ADM Date: 11/17/22 Loc: Room: [address] [place] [address] Type: ADM INOo Attending Dr: Ailyn Meng MD Ordering Provider: Ailyn Meng MD Date of Service: 11/19/22 ECG/ECG 12 lead ECG: possible heart block Copies to: Test Reason : Blood Pressure : / mmHG Vent. Rate : 049 BPM Atrial Rate : 049 BPM P-R Int : 178 ms QRS Dur : 106 ms QT Int : 512 ms P-R-T Axes : 080 101 081 degrees QTc Int : 462 ms Sinus bradycardia Rightward axis Cannot rule out Anterior infarct (cited on or before 28-OCT-2021) Abnormal ECG When compared with ECG of 18-NOV-2022 06:55, Serial changes of Anterior infarct present Confirmed by CHAPIS LUNA [facility], BG ([id number]) on 11/19/2022 9:20:27 PM Referred By: Electronically Signed By:BG NATION MD [facility] Transcribed By: MUS Signed By Bg Nation MD, FACC 11/19/222119 Normal [facility] Prothrombin Time INRon 11-19 INR Coag (PPP) [Relative time] 4.6 {INR} Normal [facility] Comment on above: Result Comment: INR Therapeutic Range A) Pre- and Peroperative OAT started two weeks before surgery. NOT HIP SURGERY: 1.5 - 2.5 HIP SURGERY: 2 - 3 B) Primary and secondary prevention of venous THROMBOSIS: 2 - 3 C) Active venous thrombosis, pulmonary embolism and prevention of recurrent venous thrombosis: 2 - 3 D) Prevention of arterial thromboembolism including patients with mechanical heart valves: 3 - 4.5 PERFORMED BY: [place] [address] PATHOLOGIST RESOURCING CONSULTANT GIULIA VALERIO M.D. Performed By: #### B MP AST, TSH3 #### [facility] [address] [place] [address] PT Coag (PPP) [Time] 53.0 s High 9.0-12.9 [facility] Comment on above: Performed By: #### B MP AST, TSH3 #### [facility] [address] [place] [address] [place] Basic Metabolic Panelon 11-07 Anion gap [Moles/Vol] 10.5 mmol/L Normal 6.0-15.0 [facility] Comment on above: Order Comment: PT IS FASTING Performed By: #### B MP, AST, TSH3 #### [facility] [address] Calcium [Mass/Vol] 8.9 mg/dL Normal 8.6-10.3 [facility] Comment on above: Order Comment: PT IS FASTING Performed By: #### B MP, AST, TSH3 #### [facility] [address] Chloride [Moles/Vol] 97 mmol/L Low 98-107 [facility] Comment on above: Order Comment: PT IS FASTING Performed By: #### B MP, AST, TSH3 #### [address] CO2 [Moles/Vol] 29.2 mmol/L Normal 21.0-31.0 [facility] Comment on above: Order Comment: PT IS FASTING Performed By: #### B MP, AST, TSH3 #### [address] Creatinine [Mass/Vol] 1.03 mg/dL Normal 0.60-1.20 [facility] Comment on above: Order Comment: PT IS FASTING Performed By: #### B MP, AST, TSH3 #### [facility] [address] [place] [address] [place] Creatinine Clr Calc Pharmacy 38.56 [facility] Comment on above: Order Comment: PT IS FASTING Performed By: #### B MP, AST, TSH3 #### [facility] [address] [place] [address] [place] GFR/1.73 sq M.predicted MDRD (S/P/Bld) [Vol rate/Area] 52.299 mL/min/{1.73_m2} [facility] Comment on above: Order Comment: PT IS FASTING Performed By: #### B MP, AST, TSH3 #### [facility] [address] Glucose [Mass/Vol] 103 mg/dL High 70-100 [facility] Comment on above: Order Comment: PT IS FASTING Result Comment: [facility] Glucose Reference Range is dependent on time and content of last meal. Glucose of more than 200 mg/dL in a nonstressed, ambulatory subject supports the diagnosis of Diabetes Mellitus. ADA recommended reference range Performed By: #### B MP, AST, TSH3 #### [facility] [address] Potassium [Moles/Vol] 4.7 mmol/L Normal 3.5-5.1 [facility] Comment on above: Order Comment: PT IS FASTING Performed By: #### B MP, AST, TSH3 #### [facility] [address] Sodium [Moles/Vol] 132 mmol/L Low 136-145 [facility] Comment on above: Order Comment: PT IS FASTING Performed By: #### B MP, AST, TSH3 #### [facility] [address] Urea nitrogen [Mass/Vol] 16 mg/dL Normal 7-25 [facility] Comment on above: Order Comment: PT IS FASTING Performed By: #### B MP, AST, TSH3 #### [facility] [address] Cholesterol [Mass/volume] in Serum or PlasmaOrdered By: Jamie Hathaway on 11-18-2022 Cholesterol [Mass/Vol] 154 mg/dL 140-200 [facility] Comment on above: Chol less than 200 m g/dl low riskChol 201-239 mg/dl borderline riskChol 240 mg/dl and greater high risk Cholesterol in LDL Calc [Mas s/Vol]Ordered By: Jamie Hathaway on 11-18-2022 Cholesterol in LDL [Mass/Vol] 79 mg/dL 0-100 [facility] Comment on above: LDL ATP III CLASSIFI CATIONLDL less than 100 mg/dL OptimalLDL 100-129 mg/dL Near or above optimalLDL 130-159 mg/dL Borderline highLDL 160-189 mg/dL HighLDL greater than 189 mg/dL Very high Cholesterol in VLDL Calc [Ma ss/Vol]Ordered By: Jamie Hathaway on 11-18-2022 Cholesterol in VLDL [Mass/Vol] 25 mg/dL [facility] Complete Blood Count Auto Di ffon 11-18-2022 Basophils (Bld) [#/Vol] 0.1 10*3/uL Normal 0.0-0.2 [facility] Comment on above: Result Comment: PERF ORMED BY: [place] [address] PATHOLOGIST RESOURCING CONSULTANT GIULIA VALERIO M.D. Performed By: #### C BC #### [address] Basophils/100 WBC (Bld) 1.2 % Normal . [facility] Comment on above: Performed By: #### C BC #### [address] Eosinophils (Bld) [#/Vol] 0.1 10*3/uL Normal 0.0-0.45 [facility] Comment on above: Performed By: #### C BC #### [address] Eosinophils/100 WBC (Bld) 1.7 % Normal . [facility] Comment on above: Performed By: #### C BC #### [address] Erythrocyte distribution width (RBC) [Ratio] 14.7 % Normal 11.9-15.3 [facility] Comment on above: Performed By: #### C BC #### [address] Hematocrit (Bld) [Volume fraction] 40.2 % Normal 34.0-46.4 [facility] Comment on above: Performed By: #### C BC #### [address] Hemoglobin (Bld) [Mass/Vol] 13.4 g/dL Normal 11.8-15.4 [facility] Comment on above: Performed By: #### C BC #### [address] Lymphocytes (Bld) [#/Vol] 1.2 10*3/uL Normal 1.00-4.8 [facility] Comment on above: Performed By: #### C BC #### [address] Lymphocytes/100 WBC (Bld) 23.5 % Normal . [facility] Comment on above: Performed By: #### C BC #### [address] MCH (RBC) [Entitic mass] 32.0 pg Normal 24.7-34.3 [facility] Comment on above: Performed By: #### C BC #### [address] MCV (RBC) [Entitic vol] 96.1 fL Normal 80-100 [facility] Comment on above: Performed By: #### C BC #### [address] Mean Corpuscular HGB Conc 33.3 g/dL Normal 32.0-35.0 [facility] Comment on above: Performed By: #### C BC #### [address] Monocytes (Bld) [#/Vol] 0.5 10*3/uL Normal 0.0-0.8 [facility] Comment on above: Performed By: #### C BC #### [address] Monocytes/100 WBC (Bld) 9.8 % Normal . [facility] Comment on above: Performed By: #### C BC #### [address] Neutrophils (Bld) [#/Vol] 3.2 10*3/uL Normal 1.8-7.7 [facility] Comment on above: Performed By: #### C BC #### [address] Neutrophils/100 WBC (Bld) 63.8 % Normal . [facility] Comment on above: Performed By: #### C BC #### [facility] [address] NRBC% 0.2 /100{WBC} Normal 0-0.5 [facility] Comment on above: Performed By: #### C BC #### [facility] [address] Platelet mean volume (Bld) [Entitic vol] 7.8 fL Normal 6.3-10.7 [facility] Comment on above: Performed By: #### C BC #### [facility] [address] Platelets (Bld) [#/Vol] 198 10*3/uL Normal 150-450 [facility] Comment on above: Performed By: #### C BC #### [facility] [address] RBC (Bld) [#/Vol] 4.19 10*6/uL Normal 3.60-5.00 [facility] Comment on above: Performed By: #### C BC #### [address] WBC (Bld) [#/Vol] 5.0 10*3/uL Normal 3.8-11.6 [facility] Comment on above: Performed By: #### C BC #### [address] ECG 12 lead ECGon 11-18-2022 ECG 12 lead ECG [facility] [place] [address] [place] [address] Electrocardiograph Report Signed Patient: Erin Canales MR#: [id number] : 1935 Acct:[id number] Age/Sex: 87 / F ADM Date: 11/17/22 Loc: Room: [address] [place] [address] Type: ADM INOo Attending Dr: Ailyn Meng MD Ordering Provider: Jamie Hathaway MD Date of Service: 11/18/2203/31/500 ECG/ECG 12 lead ECG: chest pain Copies to: Test Reason : Blood Pressure : / mmHG Vent. 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) Diffuse nonspecific ST and T wave changes Abnormal ECG When compared with ECG of 17-NOV-2022 18:02, QT has shortened Confirmed by CHAPIS LUNA [facility], BG ([id number]) on 11/18/2022 2:24:41 PM Referred By: Electronically Signed By:BG NATION MD [facility] Transcribed By: MUS Signed By Bg Nation MD, [facility] 11/18/22 1424 Normal [facility] Lipid Panelon 11-18-2022 Cholesterol [Mass/Vol] 154 mg/dL Normal 140-200 [facility] Comment on above: Order Comment: PT IS FASTING Result Comment: Chol less than 200 mg/dl low risk Chol 201-239 mg/dl borderline risk Chol 240 mg/dl and greater high risk Performed By: #### B MP, AST, TSH3 #### [facility] [address] Cholesterol in HDL [Mass/Vol] 50 mg/dL Normal 23-92 [facility] Comment on above: Order Comment: PT IS FASTING Result Comment: HDL CHOL ATP-III CLASSIFICATION Cardiovascular Risk HDL > or equal to 60 mg/dL LOW HDL < 40 mg/dL HIGH Performed By: #### B MP, AST, TSH3 #### [facility] [address] Cholesterol.total/Chol esterol in HDL [Mass ratio] 3.1 {ratio} Normal <5.0 [facility] Comment on above: Order Comment: PT IS FASTING Result Comment: PERF ORMED BY: [place] [address] PATHOLOGIST RESOURCING CONSULTANT GIULIA VALERIO M.D. Performed By: #### B MP, AST, TSH3 #### [facility] [address] LDL Cholesterol,Calculated 79 mg/dL Normal 0-100 [facility] Comment on above: Order Comment: PT IS FASTING Result Comment: LDL ATP III CLASSIFICATION LDL less than 100 mg/dL Optimal LDL 100-129 mg/dL Near or above optimal LDL 130-159 mg/dL Borderline high LDL 160-189 mg/dL High LDL greater than 189 mg/dL Very high Performed By: #### B MP, AST, TSH3 #### [facility] [address] Triglyceride w/Reflex 125 mg/dL Normal 0-149 [facility] Comment on above: Order Comment: PT IS FASTING Result Comment: TRIG ATP III CLASSIFICATION TRIG less than 150 mg/dL Normal TRIG 150-199 mg/dL Borderline high TRIG 200-500 mg/dL High TRIG greater than 500 mg/dL Very high Standard traceable to the Center for Disease Conrtrol and Prevention (CDC) test method. Performed By: #### B MP, AST, TSH3 #### [address] VLDL CHOLESTEROL 25 mg/dL Normal [facility] Comment on above: Order Comment: PT IS FASTING Performed By: #### B MP, AST, TSH3 #### [address] Magnesiumon 11-18-2022 Magnesium [Mass/Vol] 2.1 mg/dL Normal 1.9-2.7 [facility] Comment on above: Order Comment: Comme nt add Performed By: #### C BC, BMP #### [address] Magnesium [Mass/volume] in S payal or PlasmaOrdered By: Ailyn Meng on 11-18-2022 Magnesium [Mass/Vol] 2.1 mg/dL 1.9-2.7 [facility] Prothrombin Time INRon 11-18 INR Coag (PPP) [Relative time] 4.5 {INR} Normal [facility] Comment on above: Result Comment: INR Therapeutic Range A) Pre- and Peroperative OAT started two weeks before surgery. NOT HIP SURGERY: 1.5 - 2.5 HIP SURGERY: 2 - 3 B) Primary and secondary prevention of venous THROMBOSIS: 2 - 3 C) Active venous thrombosis, pulmonary embolism and prevention of recurrent venous thrombosis: 2 - 3 D) Prevention of arterial thromboembolism including patients with mechanical heart valves: 3 - 4.5 PERFORMED BY: [place] [address] PATHOLOGIST RESOURCING CONSULTANT GIULIA VALERIO M.D. Performed By: #### B MP, AST, TSH3 #### [address] PT Coag (PPP) [Time] 52.3 s High 9.0-12.9 [facility] Comment on above: Performed By: #### B MP, AST, TSH3 #### [address] Serum or plasma high density lipoprotein (HDL) cholesterol measurementOrdered By: Jamie Hathaway on 11-18-2022 Cholesterol in HDL [Mass/Vol] 50 mg/dL 23- [facility] Comment on above: HDL CHOL ATP-III CLA SSIFICATION Cardiovascular RiskHDL > or equal to 60 mg/dL LOWHDL < 40 mg/dL HIGH Serum or plasma total choles terol/high density lipoprotein (HDL) cholesterol mass ratOrdered By: Jamie Hathaway on 11-18-2022 Cholesterol.total/Chol esterol in HDL [Mass ratio] 3.1 {ratio} <5.0 [facility] Thyroid Stimulating Hormoneo n 11-18-2022 TSH Qn 7.98 m[IU]/L High 0.45-5.33 [facility] Comment on above: Order Comment: Comme nt add Result Comment: PERF ORMED BY: [place] [address] PATHOLOGIST RESOURCING CONSULTANT GIULIA VALERIO M.D. Performed By: #### C BC, BMP #### [facility] [address] [place], [place] [id number] [facility] Thyrotropin [Units/volume] i n Serum or PlasmaOrdered By: Ailyn Meng on 11-18-2022 TSH Qn 7.98 m[IU]/L 0.45-5.33 [facility] Triglyceride [Mass/volume] i n Serum or PlasmaOrdered By: Jamie Hathaway on 11-18-2022 Triglyceride [Mass/Vol] 125 mg/dL 0-149 [facility] Comment on above: TRIG ATP III CLASSIF ICATIONTRIG less than 150 mg/dL NormalTRIG 150-199 mg/dL Borderline highTRIG 200-500 mg/dL High TRIG greater than 500 mg/dL Very highStandard traceable to the Center for Disease Conrtrol and Prevention (CDC) test method. Troponin I High Sensitivityo n 11-18-2022 Troponin I High Sensitivity 18.8 pg/mL High 0.0-15.0 [facility] Comment on above: Result Comment: PERF ORMED BY: [place] [address] PATHOLOGIST RESOURCING CONSULTANT GIULIA VALERIO M.D. Performed By: #### B MP, AST, TSH3 #### [facility] [address] [place] [address] Troponin I High Sensitivity 18.4 pg/mL High 0.0-15.0 [facility] Comment on above: Result Comment: PERF ORMED BY: [place] [address] PATHOLOGIST RESOURCING CONSULTANT GIULIA VALERIO M.D. Performed By: #### C BC, BMP #### [facility] [address] [place] [address] Troponin I High Sensitivity 24.9 pg/mL High 0.0-15.0 [facility] Comment on above: Result Comment: PERF ORMED BY: [facility] [address] [place] [address] PATHOLOGIST RESOURCING CONSULTANT GIULIA VALERIO M.D. Performed By: #### C BC, BMP #### [facility] [address] [place] [address] [place] Troponin I.cardiac [Mass/vol ume] in Serum or Plasma by Detection limit <= 0.01 ng/Ordered By: Jamie Hathaway on 11-18-2022 Troponin I.cardiac DL <= 0.01 ng/mL [Mass/Vol] 18.8 pg/mL 0.0-15.0 [facility] Activated partial thrombopla stin time (aPTT) in platelet poor plasma by coagulation aOrdered By: Philip Thompson on 11-17-2022 aPTT Coag (PPP) [Time] 46.9 s 25.1-36.5 [facility] B-Type Natriuretic Peptideon 11-17-2022 Natriuretic peptide B (Bld) [Mass/Vol] 249.0 pg/mL High 5-100 [facility] Comment on above: Result Comment: PERF ORMED BY: [place] [address] PATHOLOGIST RESOURCING CONSULTANT GIULIA VALERIO M.D. Performed By: #### P TT, BMP, HS TROP, CK, CBC, BNP, PT #### [address] Basic Metabolic Panelon 11-07 Anion gap [Moles/Vol] 12.5 mmol/L Normal 6.0-15.0 [facility] Comment on above: Performed By: #### P TT, BMP, HS TROP, CK, CBC, BNP, PT #### [address] Calcium [Mass/Vol] 9.5 mg/dL Normal 8.6-10.3 [facility] Comment on above: Performed By: #### P TT, BMP, HS TROP, CK, CBC, BNP, PT #### [address] Chloride [Moles/Vol] 94 mmol/L Low 98-107 [facility] Comment on above: Performed By: #### P TT, BMP, HS TROP, CK, CBC, BNP, PT #### [address] CO2 [Moles/Vol] 27.5 mmol/L Normal 21.0-31.0 [facility] Comment on above: Performed By: #### P TT, BMP, HS TROP, CK, CBC, BNP, PT #### [facility] [address] Creatinine [Mass/Vol] 1.12 mg/dL Normal 0.60-1.20 [facility] Comment on above: Performed By: #### P TT, BMP, HS TROP, CK, CBC, BNP, PT #### [facility] [address] [place] [address] [place] Creatinine Clr Calc Pharmacy 34.38 [facility] Comment on above: Result Comment: PERF ORMED BY: [place] [address] PATHOLOGIST RESOURCING CONSULTANT GIULIA VALERIO M.D. Performed By: #### P TT, BMP, HS TROP, CK, CBC, BNP, PT #### [address] GFR/1.73 sq M.predicted MDRD (S/P/Bld) [Vol rate/Area] 47.298 mL/min/{1.73_m2} [facility] Comment on above: Performed By: #### P TT, BMP, HS TROP, CK, CBC, BNP, PT #### [address] Glucose [Mass/Vol] 132 mg/dL High 70-100 [facility] Comment on above: Result Comment: [place] Glucose Reference Range is dependent on time and content of last meal. Glucose of more than 200 mg/dL in a nonstressed, ambulatory subject supports the diagnosis of Diabetes Mellitus. ADA recommended reference range Performed By: #### P TT, BMP, HS TROP, CK, CBC, BNP, PT #### [facility] [address] Potassium [Moles/Vol] 4.0 mmol/L Normal 3.5-5.1 [facility] Comment on above: Performed By: #### P TT, BMP, HS TROP, CK, CBC, BNP, PT #### [facility] [address] Sodium [Moles/Vol] 130 mmol/L Low 136-145 [facility] Comment on above: Performed By: #### P TT, BMP, HS TROP, CK, CBC, BNP, PT #### [facility] [address] Urea nitrogen [Mass/Vol] 19 mg/dL Normal 7-25 [facility] Comment on above: Performed By: #### P TT, BMP, HS TROP, CK, CBC, BNP, PT #### [facility] [address] Basophils Auto (Bld) [#/Vol] Ordered By: Philip Thompson on 11-17-2022 Basophils (Bld) [#/Vol] 0.0 10*3/uL 0.0-0.2 [facility] Basophils/100 WBC Auto (Bld) Ordered By: Philip Thompson on 11-17-2022 Basophils/100 WBC (Bld) 0.8 % . [facility] Calcium [Mass/volume] in Ser um or PlasmaOrdered By: Philip Thompson on 11-17-2022 Calcium [Mass/Vol] 9.5 mg/dL 8.6-10.3 [facility] Carbon dioxide, total [Moles /volume] in Serum or PlasmaOrdered By: Philip Thompson on 11-17-2022 CO2 [Moles/Vol] 27.5 mmol/L 21.0-31.0 [facility] Chloride [Moles/volume] in S payal or PlasmaOrdered By: Philip Thompson on 11-17-2022 Chloride [Moles/Vol] 94 mmol/L 98-107 [facility] Complete Blood Count Auto Di ffon 11-17-2022 Basophils (Bld) [#/Vol] 0.0 10*3/uL Normal 0.0-0.2 [facility] Comment on above: Result Comment: PERF ORMED BY: [place] [address] PATHOLOGIST RESOURCING CONSULTANT GIULIA VALERIO M.D. Performed By: #### P TT, BMP, HS TROP, CK, CBC, BNP, PT #### [facility] [address] [place] [address] Basophils/100 WBC (Bld) 0.8 % Normal . [facility] Comment on above: Performed By: #### P TT, BMP, HS TROP, CK, CBC, BNP, PT #### [address] Eosinophils (Bld) [#/Vol] 0.0 10*3/uL Normal 0.0-0.45 [facility] Comment on above: Performed By: #### P TT, BMP, HS TROP, CK, CBC, BNP, PT #### [address] Eosinophils/100 WBC (Bld) 0.8 % Normal . [facility] Comment on above: Performed By: #### P TT, BMP, HS TROP, CK, CBC, BNP, PT #### [address] Erythrocyte distribution width (RBC) [Ratio] 15.0 % Normal 11.9-15.3 [facility] Comment on above: Performed By: #### P TT, BMP, HS TROP, CK, CBC, BNP, PT #### [address] Hematocrit (Bld) [Volume fraction] 44.6 % Normal 34.0-46.4 [facility] Comment on above: Performed By: #### P TT, BMP, HS TROP, CK, CBC, BNP, PT #### [address] Hemoglobin (Bld) [Mass/Vol] 14.8 g/dL Normal 11.8-15.4 [facility] Comment on above: Performed By: #### P TT, BMP, HS TROP, CK, CBC, BNP, PT #### [address] Lymphocytes (Bld) [#/Vol] 1.0 10*3/uL Normal 1.00-4.8 [facility] Comment on above: Performed By: #### P TT, BMP, HS TROP, CK, CBC, BNP, PT #### [place] [address] Lymphocytes/100 WBC (Bld) 17.1 % Normal . [facility] Comment on above: Performed By: #### P TT, BMP, HS TROP, CK, CBC, BNP, PT #### [address] MCH (RBC) [Entitic mass] 32.1 pg Normal 24.7-34.3 [facility] Comment on above: Performed By: #### P TT, BMP, HS TROP, CK, CBC, BNP, PT #### [address] MCV (RBC) [Entitic vol] 96.6 fL Normal 80-100 [facility] Comment on above: Performed By: #### P TT, BMP, HS TROP, CK, CBC, BNP, PT #### [address] Mean Corpuscular HGB Conc 33.2 g/dL Normal 32.0-35.0 [facility] Comment on above: Performed By: #### P TT, BMP, HS TROP, CK, CBC, BNP, PT #### [address] Monocytes (Bld) [#/Vol] 0.5 10*3/uL Normal 0.0-0.8 [facility] Comment on above: Performed By: #### P TT, BMP, HS TROP, CK, CBC, BNP, PT #### [address] Monocytes/100 WBC (Bld) 16.19 % Normal 0.00-20.00 [facility] Comment on above: Performed By: #### P TT, BMP, HS TROP, CK, CBC, BNP, PT #### [address] Monocytes/100 WBC (Bld) 7.8 % Normal . [facility] Comment on above: Performed By: #### P TT, BMP, HS TROP, CK, CBC, BNP, PT #### [address] [address] [place] Neutrophils (Bld) [#/Vol] 4.3 10*3/uL Normal 1.8-7.7 [facility] Comment on above: Performed By: #### P TT, BMP, HS TROP, CK, CBC, BNP, PT #### [address] Neutrophils/100 WBC (Bld) 73.5 % Normal . [facility] Comment on above: Performed By: #### P TT, BMP, HS TROP, CK, CBC, BNP, PT #### [facility] [address] [place] [address] NRBC% 0.2 /100{WBC} Normal 0-0.5 [facility] Comment on above: Performed By: #### P TT, BMP, HS TROP, CK, CBC, BNP, PT #### [address] Platelet mean volume (Bld) [Entitic vol] 7.7 fL Normal 6.3-10.7 [facility] Comment on above: Performed By: #### P TT, BMP, HS TROP, CK, CBC, BNP, PT #### [address] Platelets (Bld) [#/Vol] 220 10*3/uL Normal 150-450 [facility] Comment on above: Performed By: #### P TT, BMP, HS TROP, CK, CBC, BNP, PT #### [address] RBC (Bld) [#/Vol] 4.62 10*6/uL Normal 3.60-5.00 [facility] Comment on above: Performed By: #### P TT, BMP, HS TROP, CK, CBC, BNP, PT #### [address] WBC (Bld) [#/Vol] 5.8 10*3/uL Normal 3.8-11.6 [facility] Comment on above: Performed By: #### P TT, BMP, HS TROP, CK, CBC, BNP, PT #### [facility] [address] [place] [address] [place] Creatine Kinaseon 11-17-2022 CK [Catalytic activity/Vol] 62 U/L Normal [facility] Comment on above: Performed By: #### B MP, AST, TSH3 #### [facility] [address] [place] [address] [place] Creatine kinase [Enzymatic a ctivity/volume] in Serum or PlasmaOrdered By: Philip Thompson on 11-17-2022 CK [Catalytic activity/Vol] 62 U/L [facility] Creatinine [Mass/volume] in Serum or PlasmaOrdered By: Philip Thompson on 11-17-2022 Creatinine [Mass/Vol] 1.12 mg/dL 0.60-1.20 [facility] ECG 12 lead ECGon 11-17-2022 ECG 12 lead ECG [facility] [place] [address] [place] [address] Electrocardiograph Report Signed Patient: Erin Canales MR#: [id number] : 1935 Acct:[id number] Age/Sex: 87 / F ADM Date: 11/17/22 Loc: ER Room: Type: [facility] ER Attending Dr: Ordering Provider: Philip Thompson DO Date of Service: 11/17/2203/01/1801 ECG/ECG 12 lead ECG: Chest Pain Copies to: Test Reason : Blood Pressure : 198/084 mmHG Vent. Rate : 062 BPM Atrial Rate : 062 BPM P-R Int : 164 ms QRS Dur : 108 ms QT Int : 554 ms P-R-T Axes : 091 079 095 degrees QTc Int : 562 ms Normal sinus rhythm Low voltage QRS Cannot rule out Inferior infarct , age undetermined Cannot rule out Anterior infarct (cited on or before 28-OCT-2021) Abnormal ECG When compared with ECG of 25-SEP-2022 13:09, Significant changes have occurred Confirmed by PHILIP THOMPSON DO ([id number]) on 11/17/2022 8:41:46 PM Referred By: Electronically Signed By:PHILIP THOMPSON DO Transcribed By: MUS Signed By Philip Thompson DO 2040 Normal [facility] Eosinophils Auto (Bld) [#/Vo l]Ordered By: Philip Thompson on 11-17-2022 Eosinophils (Bld) [#/Vol] 0.0 10*3/uL 0.0-0.45 [facility] Eosinophils/100 WBC Auto (Bl d)Ordered By: Philip Thompson on 11-17-2022 Eosinophils/100 WBC (Bld) 0.8 % . [facility] Erythrocyte distribution wid th Auto (RBC) [Ratio]Ordered By: Philip Thompson on 11-17-2022 Erythrocyte distribution width (RBC) [Ratio] 15.0 % 11.9-15.3 [facility] Glucose [Mass/volume] in Ser um or PlasmaOrdered By: Philip Thompson on 11-17-2022 Glucose [Mass/Vol] 132 mg/dL 70-100 [facility] Comment on above: ADA recommended refe rence rangeRandom Glucose Reference Range is dependent on time and content of last meal. Glucose of more than 200 mg/dL in a nonstressed, ambulatory subject supports the diagnosis of Diabetes Mellitus. Hematocrit Auto (Bld) [Volum e fraction]Ordered By: Philip Thompson on 11-17-2022 Hematocrit (Bld) [Volume fraction] 44.6 % 34.0-46.4 [facility] Hemoglobin [Mass/volume] in BloodOrdered By: Philip Thompson on 11-17-2022 Hemoglobin (Bld) [Mass/Vol] 14.8 g/dL 11.8-15.4 [facility] Laboratory - CoagulationOrde red By: Philip Thompson on 11-17-2022 PT Coag (PPP) [Time] 42.9 s 9.0-12.9 [facility] Leukocytes [#/volume] correc basim for nucleated erythrocytes in Blood by Automated counOrdered By: Philip Thompson on 11-17-2022 WBC corrected for nucl RBC Auto (Bld) [#/Vol] 5.8 10*3/uL 3.8-11.6 [facility] Lymphocytes Auto (Bld) [#/Vo l]Ordered By: Philip Thompson on 11-17-2022 Lymphocytes (Bld) [#/Vol] 1.0 10*3/uL 1.00-4.8 [facility] Lymphocytes/100 WBC Auto (Bl d)Ordered By: Philip Thompson on 11-17-2022 Lymphocytes/100 WBC (Bld) 17.1 % . [facility] MCH Auto (RBC) [Entitic mass ]Ordered By: Philip Thompson on 11-17-2022 MCH (RBC) [Entitic mass] 32.1 pg 24.7-34.3 [facility] MCHC Auto (RBC) [Mass/Vol]Or dered By: Philip Thompson on 11-17-2022 MCHC (RBC) [Mass/Vol] 33.2 g/dL 32.0-35.0 [facility] MCV Auto (RBC) [Entitic vol] Ordered By: Philip Thompson on 11-17-2022 MCV (RBC) [Entitic vol] 96.6 fL 80-100 [facility] Monocyte distribution width [Entitic volume] in Blood by AutomatedOrdered By: Philip Thompson on 11-17-2022 Monocyte distribution width Auto (Bld) [Entitic vol] 16.19 % 0.00-20.00 [facility] Monocytes Auto (Bld) [#/Vol] Ordered By: Philip Thompson on 11-17-2022 Monocytes (Bld) [#/Vol] 0.5 10*3/uL 0.0-0.8 [facility] Monocytes/100 WBC Auto (Bld) Ordered By: Philip Thompson on 11-17-2022 Monocytes/100 WBC (Bld) 7.8 % . [facility] Natriuretic peptide B [Mass/ Vol]Ordered By: Philip Thompson on 11-17-2022 Natriuretic peptide B (Bld) [Mass/Vol] 249.0 pg/mL 5-100 [facility] Neutrophils Auto (Bld) [#/Vo l]Ordered By: Philip Thompson on 11-17-2022 Neutrophils (Bld) [#/Vol] 4.3 10*3/uL 1.8-7.7 [facility] Neutrophils/100 WBC Auto (Bl d)Ordered By: Philip Thompson on 11-17-2022 Neutrophils/100 WBC (Bld) 73.5 % . [facility] No Panel InformationOrdered By: Philip Thompson on 11-17-2022 Estimated GFR (CKD-EPI) 47.298 mL/Min [facility] Creatinine Clearance (Chem 34.38 [facility] Nucleated erythrocytes [Pres ence] in Blood by Automated countOrdered By: Philip Thompson on 11-17-2022 Nucleated RBC Auto Ql (Bld) 0.2 /100{WBC} 0-0.5 [facility] Partial Thromboplastin Timeo n 11-17-2022 aPTT Coag (Bld) [Time] 46.9 s High 25.1-36.5 [facility] Comment on above: Result Comment: PERF ORMED BY: [place] [address] PATHOLOGIST RESOURCING CONSULTANT GIULIA VALERIO M.D. Performed By: #### B MP, AST, TSH3 #### [address] Platelet mean volume Auto (B ld) [Entitic vol]Ordered By: Philip Thompson on 11-17-2022 Platelet mean volume (Bld) [Entitic vol] 7.7 fL 6.3-10.7 [facility] Platelet poor plasma interna tional normalized ratio (INR) by coagulation assay (relatOrdered By: Philip Thompson on 11-17-2022 INR Coag (PPP) [Relative time] 3.7 {INR} [facility] Comment on above: INR Therapeutic Rang e A) Pre- and Peroperative OAT started two weeks before surgery. NOT HIP SURGERY: 1.5 - 2.5 HIP SURGERY: 2 - 3B) Primary and secondary prevention of venous THROMBOSIS: 2 - 3C) Active venous thrombosis, pulmonary embolismand prevention of recurrent venous thrombosis: 2 - 3D) Prevention of arterial thromboembolismincluding patients with mechanical heart valves: 3 - 4.5 Platelets Auto (Bld) [#/Vol] Ordered By: Philip Thompson on 11-17-2022 Platelets (Bld) [#/Vol] 220 10*3/uL 150-450 [facility] Potassium [Moles/volume] in Serum or PlasmaOrdered By: Philip Thompson on 11-17-2022 Potassium [Moles/Vol] 4.0 mmol/L 3.5-5.1 [facility] Prothrombin Time INRon 11-17 INR Coag (PPP) [Relative time] 3.7 {INR} Normal [facility] Comment on above: Result Comment: INR Therapeutic Range A) Pre- and Peroperative OAT started two weeks before surgery. NOT HIP SURGERY: 1.5 - 2.5 HIP SURGERY: 2 - 3 B) Primary and secondary prevention of venous THROMBOSIS: 2 - 3 C) Active venous thrombosis, pulmonary embolism and prevention of recurrent venous thrombosis: 2 - 3 D) Prevention of arterial thromboembolism including patients with mechanical heart valves: 3 - 4.5 Performed By: #### B MP, AST, TSH3 #### [facility] [address] [place] [address] PT Coag (PPP) [Time] 42.9 s High 9.0-12.9 [facility] Comment on above: Performed By: #### B MP, AST, TSH3 #### [facility] [address] [place] [address] RBC Auto (Bld) [#/Vol]Ordere d By: Philip Thompson on 11-17-2022 RBC (Bld) [#/Vol] 4.62 10*6/uL 3.60-5.00 [facility] Serum or plasma anion gap de terminationOrdered By: Philip Thompson on 11-17-2022 Anion gap [Moles/Vol] 12.5 mmol/L 6.0-15.0 [facility] Sodium [Moles/volume] in Ser um or PlasmaOrdered By: Philip Thompson on 11-17-2022 Sodium [Moles/Vol] 130 mmol/L 136-145 [facility] Troponin I High Sensitivityo n 11-17-2022 Troponin I High Sensitivity 16.9 pg/mL High 0.0-15.0 [facility] Comment on above: Result Comment: PERF ORMED BY: [place] [address] PATHOLOGIST RESOURCING CONSULTANT GIULIA VALERIO M.D. Performed By: #### B MP, AST, TSH3 #### [facility] [address] [place] [id number] [facility] Troponin I.cardiac [Mass/vol ume] in Serum or Plasma by Detection limit <= 0.01 ng/Ordered By: Philip Thompson on 11-17-2022 Troponin I.cardiac DL <= 0.01 ng/mL [Mass/Vol] 16.9 pg/mL 0.0-15.0 [facility] Urea nitrogen [Mass/volume] in Serum or PlasmaOrdered By: Philip Thompson on 11-17-2022 Urea nitrogen [Mass/Vol] 19 mg/dL 7-25 [facility] WBC Auto (Bld) [#/Vol]Ordere d By: Philip Thompson on 11-17-2022 WBC (Bld) [#/Vol] 5.8 10*3/uL 3.8-11.6 [facility] XR chest 1V portableon 11-17 XR chest 1V portable [facility] [place] [address] [place] [address] XRay Report Signed Patient: Erin Canales MR#: [id number] : 1935 Acct:[id number] Age/Sex: 87 / F ADM Date: 11/17/22 Loc: ER Room: Type: [facility] ER Attending Dr: Copies to: Philip Thompson DO Ordering Provider: Philip Thompson DO Date of Service: 11/17/22 XR/XR chest 1V portable: Chest Pain Plain film chest single view HISTORY: Intermittent left-sided chest pain COMPARISON: 06/13/2022 FINDINGS: SUPPORT DEVICES: None POSTSURGICAL CHANGES: None HEART: Similar cardiomegaly PULMONARY INOCENCIA: Within normal limits MEDIASTINUM: Unremarkable LUNGS AND PLEURA: No acute lung process, pleural effusion or pneumothorax identified. BONY STRUCTURES: Intact ADDITIONAL FINDINGS None XR/XR chest 1V portable IMPRESSION: Similar cardiomegaly. No acute cardiopulmonary disease. Impression dictated by: Jag Arnold M.D.11/17/2022 8:08 PM Dictation Location: [id number] Transcribed By: PWS 11/17/222007 Dictated By: Jag Arnold DO 11/17/221946 Signed By: 11/17/222007 Normal [facility] Tobacco Screening.on 023 Tobacco use status CPHS b) No [facility] 600 DO Work Phone: Activated partial thrombopla stin time (aPTT) in platelet poor plasma by coagulation aOrdered By: Pearl Michel on 09-25-2022 aPTT Coag (PPP) [Time] 37.0 s 25.1-36.5 [facility] Coagulation Profileon 2022 aPTT Coag (Bld) [Time] 37.0 s High 25.1-36.5 [facility] Comment on above: Result Comment: PERF ORMED BY: [place] [address] PATHOLOGIST RESOURCING CONSULTANT GIULIA VALERIO M.D. Performed By: #### C BC, BMP #### [facility] [address] [place] [address] INR Coag (PPP) [Relative time] 1.5 {INR} Normal [facility] Comment on above: Result Comment: INR Therapeutic Range A) Pre- and Peroperative OAT started two weeks before surgery. NOT HIP SURGERY: 1.5 - 2.5 HIP SURGERY: 2 - 3 B) Primary and secondary prevention of venous THROMBOSIS: 2 - 3 C) Active venous thrombosis, pulmonary embolism and prevention of recurrent venous thrombosis: 2 - 3 D) Prevention of arterial thromboembolism including patients with mechanical heart valves: 3 - 4.5 Performed By: #### C BC, BMP #### [facility] [address] [place], [place] [id number] [facility] PT Coag (PPP) [Time] 16.9 s High 9.0-12.9 [facility] Comment on above: Performed By: #### C BC, BMP #### [facility] [address] [place] [address] [place] ECG 12 lead ECGon 09-25-2022 ECG 12 lead ECG [facility] [address] [address] [place] [address] Electrocardiograph Report Signed Patient: Erin Canales MR#: [id number] : 1935 Acct:[id number] Age/Sex: 87 / F ADM Date: 09/25/22 Loc: Room: Type: [facility] Attending Dr: Pearl Michel DO Ordering Provider: Pearl Michel DO Date of Service: 09/25/22 ECG/ECG 12 lead ECG: Post Angioplasty Procedure Copies to: Test Reason : Blood Pressure : / mmHG Vent. Rate : 048 BPM Atrial Rate : 068 BPM P-R Int : 000 ms QRS Dur : 084 ms QT Int : 488 ms P-R-T Axes : 000 023 057 degrees QTc Int : 435 ms Atrial fibrillation with slow ventricular response with a competing junctional pacemaker Low voltage QRS Cannot rule out Anteroseptal infarct (cited on or before 25-SEP-2022) Abnormal ECG When compared with ECG of 25-SEP-2022 13:08, (Unconfirmed) Previous ECG has undetermined rhythm, needs review Confirmed by KIRK ESTEVEZ DO ([id number]) on 09/26/2022 6:37:55 PM Referred By: [facility] Electronically Signed By:KIRK ESTEVEZ DO Transcribed By: MUS Signed By Kirk Estevez DO 09/26 183 [facility] - CoagulationOrde red By: Pearl Michel on 09-25-2022 PT Coag (PPP) [Time] 16.9 s 9.0-12.9 [facility] No Panel Informationon 09-25 37.0\S\37.0 above high threshold 25.1-36.5 [facility] Work Phone: Comment on above: PERFORMED BY:[facility] [place] [id number] MEDICAL DIRECTORGIULIA VALERIO M.D. 1.5\S\1.5 Normal [facility] Yap 250 DO Work Phone: Comment on above: INR Therapeutic Rang e A) Pre- and Peroperative OAT started two weeks before surgery. NOT HIP SURGERY: 1.5 - 2.5 HIP SURGERY: 2 - 3 B) Primary and secondary prevention of venous THROMBOSIS: 2 - 3 C) Active venous thrombosis, pulmonary embolism and prevention of recurrent venous thrombosis: 2 - 3 D) Prevention of arterial thromboembolism including patients with mechanical heart valves: 3 - 4.5 16.9\S\16.9 above high threshold 9.0-12.9 -[facility] ayde 250 DO Work Phone: Platelet poor plasma interna tional normalized ratio (INR) by coagulation assay (relatOrdered By: Pearl Michel on 09-25-2022 INR Coag (PPP) [Relative time] 1.5 {INR} [facility] Comment on above: INR Therapeutic Rang e A) Pre- and Peroperative OAT started two weeks before surgery. NOT HIP SURGERY: 1.5 - 2.5 HIP SURGERY: 2 - 3B) Primary and secondary prevention of venous THROMBOSIS: 2 - 3C) Active venous thrombosis, pulmonary embolismand prevention of recurrent venous thrombosis: 2 - 3D) Prevention of arterial thromboembolismincluding patients with mechanical heart valves: 3 - 4.5 Activated partial thrombopla stin time (aPTT) in platelet poor plasma by coagulation aOrdered By: Pearl Michel on 09-22-2022 aPTT Coag (PPP) [Time] 48.7 s 25.1-36.5 [facility] Basophils Auto (Bld) [#/Vol] Ordered By: Pearl Michel on 09-22-2022 Basophils (Bld) [#/Vol] 0.1 10*3/uL 0.0-0.2 [facility] Basophils/100 WBC Auto (Bld) Ordered By: Pearl Michel on 09-22-2022 Basophils/100 WBC (Bld) 0.9 % . [facility] Blood Urea Nitrogenon 2022 Urea nitrogen [Mass/Vol] 44 mg/dL High 7-25 [facility] Comment on above: Performed By: #### P T #### [address] Carbon dioxide, total [Moles /volume] in Serum or PlasmaOrdered By: Pearl Michel on 09-22-2022 CO2 [Moles/Vol] 26.2 mmol/L 21.0-31.0 [facility] Chloride [Moles/volume] in S payal or PlasmaOrdered By: Pearl Michel on 09-22-2022 Chloride [Moles/Vol] 109 mmol/L 98-107 [facility] Cholesterol [Mass/volume] in Serum or PlasmaOrdered By: Pearl Michel on 09-22-2022 Cholesterol [Mass/Vol] 163 mg/dL 140-200 [facility] Comment on above: Chol less than 200 m g/dl low riskChol 201-239 mg/dl borderline riskChol 240 mg/dl and greater high risk Cholesterol in LDL Calc [Mas s/Vol]Ordered By: Pearl Michel on 09-22-2022 Cholesterol in LDL [Mass/Vol] 90 mg/dL 0-100 [facility] Comment on above: LDL ATP III CLASSIFI CATIONLDL less than 100 mg/dL OptimalLDL 100-129 mg/dL Near or above optimalLDL 130-159 mg/dL Borderline highLDL 160-189 mg/dL HighLDL greater than 189 mg/dL Very high Cholesterol in VLDL Calc [Ma ss/Vol]Ordered By: Pearl Michel on 09-22-2022 Cholesterol in VLDL [Mass/Vol] 27 mg/dL [facility] Coagulation Profileon 2022 aPTT Coag (Bld) [Time] 48.7 s High 25.1-36.5 [facility] Comment on above: Result Comment: PERF ORMED BY: [place] [address] PATHOLOGIST RESOURCING CONSULTANT GIULIA VALERIO M.D. Performed By: #### P T #### [address] INR Coag (PPP) [Relative time] 3.6 {INR} Normal [facility] Comment on above: Result Comment: INR Therapeutic Range A) Pre- and Peroperative OAT started two weeks before surgery. NOT HIP SURGERY: 1.5 - 2.5 HIP SURGERY: 2 - 3 B) Primary and secondary prevention of venous THROMBOSIS: 2 - 3 C) Active venous thrombosis, pulmonary embolism and prevention of recurrent venous thrombosis: 2 - 3 D) Prevention of arterial thromboembolism including patients with mechanical heart valves: 3 - 4.5 Performed By: #### P T #### [address] PT Coag (PPP) [Time] 41.6 s High 9.0-12.9 [facility] Comment on above: Performed By: #### P T #### [address] Complete Blood Count Auto Di ffon 09-22-2022 Basophils (Bld) [#/Vol] 0.1 10*3/uL Normal 0.0-0.2 [facility] Comment on above: Result Comment: PERF ORMED BY: [place] [address] PATHOLOGIST RESOURCING CONSULTANT GIULIA VALERIO M.D. Performed By: #### P T #### [address] Basophils/100 WBC (Bld) 0.9 % Normal . [facility] Comment on above: Performed By: #### P T #### [address] Eosinophils (Bld) [#/Vol] 0.1 10*3/uL Normal 0.0-0.45 [facility] Comment on above: Performed By: #### P T #### [address] Eosinophils/100 WBC (Bld) 1.8 % Normal . [facility] Comment on above: Performed By: #### P T #### [address] Erythrocyte distribution width (RBC) [Ratio] 16.1 % High 11.9-15.3 [facility] Comment on above: Performed By: #### P T #### [address] Hematocrit (Bld) [Volume fraction] 39.0 % Normal 34.0-46.4 [facility] Comment on above: Performed By: #### P T #### [address] Hemoglobin (Bld) [Mass/Vol] 12.8 g/dL Normal 11.8-15.4 [facility] Comment on above: Performed By: #### P T #### [address] Lymphocytes (Bld) [#/Vol] 1.3 10*3/uL Normal 1.00-4.8 [facility] Comment on above: Performed By: #### P T #### [address] Lymphocytes/100 WBC (Bld) 21.7 % Normal . [facility] Comment on above: Performed By: #### P T #### [address] MCH (RBC) [Entitic mass] 31.4 pg Normal 24.7-34.3 [facility] Comment on above: Performed By: #### P T #### [address] MCV (RBC) [Entitic vol] 95.5 fL Normal 80-100 [facility] Comment on above: Performed By: #### P T #### [address] Mean Corpuscular HGB Conc 32.9 g/dL Normal 32.0-35.0 [facility] Comment on above: Performed By: #### P T #### [address] Monocytes (Bld) [#/Vol] 0.5 10*3/uL Normal 0.0-0.8 [facility] Comment on above: Performed By: #### P T #### [address] Monocytes/100 WBC (Bld) 8.4 % Normal . [facility] Comment on above: Performed By: #### P T #### [address] Neutrophils (Bld) [#/Vol] 4.2 10*3/uL Normal 1.8-7.7 [facility] Comment on above: Performed By: #### P T #### [facility] [address] Neutrophils/100 WBC (Bld) 67.2 % Normal . [facility] Comment on above: Performed By: #### P T #### [facility] [address] NRBC% 0.1 /100{WBC} Normal 0-0.5 [facility] Comment on above: Performed By: #### P T #### [facility] [address] Platelet mean volume (Bld) [Entitic vol] 8.6 fL Normal 6.3-10.7 [facility] Comment on above: Performed By: #### P T #### [address] Platelets (Bld) [#/Vol] 180 10*3/uL Normal 150-450 [facility] Comment on above: Performed By: #### P T #### [facility] [address] [place] [address] RBC (Bld) [#/Vol] 4.09 10*6/uL Normal 3.60-5.00 [facility] Comment on above: Performed By: #### P T #### [facility] [address] [place] [address] WBC (Bld) [#/Vol] 6.2 10*3/uL Normal 3.8-11.6 [facility] Comment on above: Performed By: #### P T #### [facility] [address] Creatinineon 09-22-2022 Creatinine [Mass/Vol] 1.16 mg/dL Normal 0.60-1.20 [facility] Comment on above: Performed By: #### P T #### [address] GFR/1.73 sq M.predicted MDRD (S/P/Bld) [Vol rate/Area] 45.347 mL/min/{1.73_m2} [facility] Comment on above: Performed By: #### P T #### [place] [id number] [facility] Creatinine [Mass/volume] in Serum or PlasmaOrdered By: Pearl Michel on 09-22-2022 Creatinine [Mass/Vol] 1.16 mg/dL 0.60-1.20 [facility] ECG 12 lead ECGon 09-22-2022 ECG 12 lead ECG [facility] [address] [place] [address] Electrocardiograph Report Signed Patient: Erin Canales MR#: [id number] : 1935 Acct:[id number] Age/Sex: 87 / F ADM Date: 09/22/22 Loc: Room: Type: [facility] Attending Dr: Pearl Michel DO Ordering Provider: Pearl Michel DO Date of Service: 09/22/22 ECG/ECG 12 lead ECG: [facility] Copies to: Test Reason : Blood Pressure : / mmHG Vent. Rate : 054 BPM Atrial Rate : 054 BPM P-R Int : 152 ms QRS Dur : 104 ms QT Int : 496 ms P-R-T Axes : -72 -05 035 degrees QTc Int : 470 ms Unusual P axis, possible ectopic atrial bradycardia Inferior infarct , age undetermined Possible Anterior infarct (cited on or before 28-OCT-2021) Abnormal ECG When compared with ECG of 28-OCT-2021 00:26, Ectopic atrial rhythm has replaced Sinus rhythm Questionable change in initial forces of Anterior leads T wave inversion no longer evident in Lateral leads QT has lengthened Confirmed by SHER LUNA FACPHILIP Daily ([id number]) on 09/22/2022 11:19:52 PM Referred By: ANAND Electronically Signed By:PHILIP OLIVAREZ MD FACAbimbola Transcribed By: MUS Signed By Akhil Olivarez MD 09/22/22 3776 [facility] Electrolyteson 09-22-2022 Anion gap [Moles/Vol] 11.4 mmol/L Normal 6.0-15.0 [facility] Comment on above: Performed By: #### P T #### [facility] [address] Chloride [Moles/Vol] 109 mmol/L High 98-107 [facility] Comment on above: Performed By: #### P T #### [facility] [address] CO2 [Moles/Vol] 26.2 mmol/L Normal 21.0-31.0 [facility] Comment on above: Performed By: #### P T #### [facility] [address] Potassium [Moles/Vol] 4.6 mmol/L Normal 3.5-5.1 [facility] Comment on above: Performed By: #### P T #### [facility] [address] Sodium [Moles/Vol] 142 mmol/L Normal 136-145 [facility] Comment on above: Performed By: #### P T #### [facility] [address] Eosinophils Auto (Bld) [#/Vo l]Ordered By: Pearl Michel on 09-22-2022 Eosinophils (Bld) [#/Vol] 0.1 10*3/uL 0.0-0.45 [facility] Eosinophils/100 WBC Auto (Bl d)Ordered By: Pearl Michel on 09-22-2022 Eosinophils/100 WBC (Bld) 1.8 % . [facility] Erythrocyte distribution wid th Auto (RBC) [Ratio]Ordered By: Pearl Michel on 09-22-2022 Erythrocyte distribution width (RBC) [Ratio] 16.1 % 11.9-15.3 [facility] Hematocrit Auto (Bld) [Volum e fraction]Ordered By: Pearl Michel on 09-22-2022 Hematocrit (Bld) [Volume fraction] 39.0 % 34.0-46.4 [facility] Hemoglobin [Mass/volume] in BloodOrdered By: Pearl Michel on 09-22-2022 Hemoglobin (Bld) [Mass/Vol] 12.8 g/dL 11.8-15.4 [facility] Laboratory - Chemistry and C hemistry - challengeon 09-22-2022 Cholesterol [Mass/Vol] 163\S\163 Normal 140-200 [facility] [address] 250 DO Work Phone: Comment on above: Chol less than 200 m g/dl low risk Chol 201-239 mg/dl borderline risk Chol 240 mg/dl and greater high risk Cholesterol in LDL [Mass/Vol] 90\S\90 Normal 0-100 -[facility] [address] 250 DO Work Phone: Comment on above: LDL ATP III CLASSIFI CATION LDL less than 100 mg/dL Optimal LDL 100-129 mg/dL Near or above optimal LDL 130-159 mg/dL Borderline high LDL 160-189 mg/dL High LDL greater than 189 mg/dL Very high Laboratory - CoagulationOrde red By: Pearl Michel on 09-22-2022 PT Coag (PPP) [Time] 41.6 s 9.0-12.9 [facility] Leukocytes [#/volume] correc basim for nucleated erythrocytes in Blood by Automated counOrdered By: Pearl Michel on 09-22-2022 WBC corrected for nucl RBC Auto (Bld) [#/Vol] 6.2 10*3/uL 3.8-11.6 [facility] Lipid Panelon 09-22-2022 Cholesterol [Mass/Vol] 163 mg/dL Normal 140-200 [facility] Comment on above: Result Comment: Chol less than 200 mg/dl low risk Chol 201-239 mg/dl borderline risk Chol 240 mg/dl and greater high risk Performed By: #### P T #### [facility] [address] [place] [id number] [place] Cholesterol in HDL [Mass/Vol] 46 mg/dL Normal 23-92 [facility] Comment on above: Result Comment: HDL CHOL ATP-III CLASSIFICATION Cardiovascular Risk HDL > or equal to 60 mg/dL LOW HDL < 40 mg/dL HIGH Performed By: #### P T #### [facility] [address] [place] [address] [place] Cholesterol.total/Chol esterol in HDL [Mass ratio] 3.5 {ratio} Normal <5.0 [facility] Comment on above: Result Comment: PERF ORMED BY: [place] [address] PATHOLOGIST RESOURCING CONSULTANT GIULIA VALERIO M.D. Performed By: #### P T #### [facility] [address] [place] [address] LDL Cholesterol,Calculated 90 mg/dL Normal 0-100 [facility] Comment on above: Result Comment: LDL ATP III CLASSIFICATION LDL less than 100 mg/dL Optimal LDL 100-129 mg/dL Near or above optimal LDL 130-159 mg/dL Borderline high LDL 160-189 mg/dL High LDL greater than 189 mg/dL Very high Performed By: #### P T #### [address] Triglyceride w/Reflex 137 mg/dL Normal 0-149 [facility] Comment on above: Result Comment: TRIG ATP III CLASSIFICATION TRIG less than 150 mg/dL Normal TRIG 150-199 mg/dL Borderline high TRIG 200-500 mg/dL High TRIG greater than 500 mg/dL Very high Standard traceable to the Center for Disease Conrtrol and Prevention (CDC) test method. Performed By: #### P T #### [facility] [address] [place] [address] VLDL CHOLESTEROL 27 mg/dL Normal [facility] Comment on above: Performed By: #### P T #### [facility] [address] [place] [address] Lymphocytes Auto (Bld) [#/Vo l]Ordered By: Pearl iMchel on 09-22-2022 Lymphocytes (Bld) [#/Vol] 1.3 10*3/uL 1.00-4.8 [facility] Lymphocytes/100 WBC Auto (Bl d)Ordered By: Pearl Michel on 09-22-2022 Lymphocytes/100 WBC (Bld) 21.7 % . [facility] MCH Auto (RBC) [Entitic mass ]Ordered By: Pearl Michel on 09-22-2022 MCH (RBC) [Entitic mass] 31.4 pg 24.7-34.3 [facility] MCHC Auto (RBC) [Mass/Vol]Or dered By: Pearl Michel on 09-22-2022 MCHC (RBC) [Mass/Vol] 32.9 g/dL 32.0-35.0 [facility] MCV Auto (RBC) [Entitic vol] Ordered By: Pearl Michel on 09-22-2022 MCV (RBC) [Entitic vol] 95.5 fL 80-100 [facility] Monocytes Auto (Bld) [#/Vol] Ordered By: Pearl Michel on 09-22-2022 Monocytes (Bld) [#/Vol] 0.5 10*3/uL 0.0-0.8 [facility] Monocytes/100 WBC Auto (Bld) Ordered By: Pearl Michel on 09-22-2022 Monocytes/100 WBC (Bld) 8.4 % . [facility] Neutrophils Auto (Bld) [#/Vo l]Ordered By: Pearl Michel on 09-22-2022 Neutrophils (Bld) [#/Vol] 4.2 10*3/uL 1.8-7.7 [facility] Neutrophils/100 WBC Auto (Bl d)Ordered By: Pearl Michel on 09-22-2022 Neutrophils/100 WBC (Bld) 67.2 % . [facility] No Panel InformationOrdered By: Pearl Michel on 09-22-2022 Estimated GFR (CKD-EPI) 45.347 mL/Min [facility] Creatinine Clearance (Chem N/A [facility] No Panel Informationon 09-22 0.1\S\0.1 Normal 0-0.5 [facility] ayde 250 DO Work Phone: Comment on above: PERFORMED BY:[place] [address] [address] [place], [place] [phone] MEDICAL DIRECTORGIULIA VALERIO M.D. 0.5\S\0.5 Normal 0.0-0.8 [facility] 250 DO Work Phone: 1.3\S\1.3 Normal 1.00-4.8 [facility] 250 DO Work Phone: [phone] 4.2\S\4.2 Normal 1.8-7.7 [facility] ayde 250 DO Work Phone: [phone] 0.9\S\0.9 Normal . [facility] 250 DO Work Phone: [phone] 1.8\S\1.8 Normal . [facility] 250 DO Work Phone: [phone] 8.4\S\8.4 Normal . [facility] 250 DO Work Phone: [phone] 21.7\S\21.7 Normal . [facility] 250 DO Work Phone: [phone] 67.2\S\67.2 Normal . [facility] 250 DO Work Phone: [phone] 8.6\S\8.6 Normal 6.3-10.7 [facility] 250 DO Work Phone: [phone] 180\S\180 Normal 150-450 [facility] 250 DO Work Phone: [phone] 16.1\S\16.1 above high threshold 11.9-15.3 [facility] 250 DO Work Phone: [phone] 32.9\S\32.9 Normal 32.0-35.0 [facility] 250 DO Work Phone: [phone] 31.4\S\31.4 Normal 24.7-34.3 [facility] 250 DO Work Phone: [phone] 95.5\S\95.5 Normal 80-100 [facility] 250 DO Work Phone: [phone] 39.0\S\39.0 Normal 34.0-46.4 [facility] 250 DO Work Phone: [phone] 12.8\S\12.8 Normal 11.8-15.4 [facility]ieru ayde 250 DO Work Phone: 4.09\S\4.09 Normal 3.60-5.00 [facility]Gamaliel ayde 250 DO Work Phone: 6.2\S\6.2 Normal 3.8-11.6 [facility]al[facility] ayde 250 DO Work Phone: 48.7\S\48.7 above high threshold 25.1-36.5 -[facility]Gamaliel ayde 250 DO Work Phone: Comment on above: PERFORMED BY:[place] [address] [place] [place], [place] [phone] MEDICAL DIRECTORGIULIA VALERIO M.D. 3.6\S\3.6 Normal [facility]Gamaliel baltazary 250 DO Work Phone: Comment on above: INR Therapeutic Rang e A) Pre- and Peroperative OAT started two weeks before surgery. NOT HIP SURGERY: 1.5 - 2.5 HIP SURGERY: 2 - 3 B) Primary and secondary prevention of venous THROMBOSIS: 2 - 3 C) Active venous thrombosis, pulmonary embolism and prevention of recurrent venous thrombosis: 2 - 3 D) Prevention of arterial thromboembolism including patients with mechanical heart valves: 3 - 4.5 41.6\S\41.6 above high threshold 9.0-12.9 [facility] ayde 250 DO Work Phone: 11.4\S\11.4 Normal 6.0-15.0 [facility] baltazary 250 DO Work Phone: 26.2\S\26.2 Normal 21.0-31.0 [facility]aliel baltazary 250 DO Work Phone: 109\S\109 above high threshold 98-107 [facility]ieru ayde 250 DO Work Phone: 4.6\S\4.6 Normal 3.5-5.1 [facility] Timothy messer 250 DO Work Phone: 142\S\142 Normal 136-145 [facility] Timothy messer 250 DO Work Phone: 44\S\44 above high threshold 7-25 [facility] Timothy messer 250 DO Work Phone: 45.347\S\45.347 Normal [facility] Timothy messer 250 DO Work Phone: [phone] 1.16\S\1.16 Normal 0.60-1.20 [facility] Timothy messer 250 DO Work Phone: 3.5\S\3.5 Normal <5.0 [facility] Timothy messer 250 DO Work Phone: Comment on above: PERFORMED BY:[place] [address] [place] [place], [place] [id number] MEDICAL DIRECTORGIULIA VALERIO M.D. 27\S\27 Normal [facility] Timothy Krueger DO Work Phone: 137\S\137 Normal 0-149 [facility] Timothy Krueger DO Work Phone: Comment on above: TRIG ATP III CLASSIF ICATION TRIG less than 150 mg/dL Normal TRIG 150-199 mg/dL Borderline high TRIG 200-500 mg/dL High TRIG greater than 500 mg/dL Very high Standard traceable to the Center for Disease Conrtrol and Prevention (CDC) test method. 46\S\46 Normal 23-92 [facility] Timothy messer 250 DO Work Phone: Comment on above: HDL CHOL ATP-III CLA SSIFICATION Cardiovascular Risk HDL > or equal to 60 mg/dL LOW HDL < 40 mg/dL HIGH Nucleated erythrocytes [Pres ence] in Blood by Automated countOrdered By: Pearl Michel on 09-22-2022 Nucleated RBC Auto Ql (Bld) 0.1 /100{WBC} 0-0.5 [facility] Platelet mean volume Auto (B ld) [Entitic vol]Ordered By: Pearl Michel on 09-22-2022 Platelet mean volume (Bld) [Entitic vol] 8.6 fL 6.3-10.7 [facility] Platelet poor plasma interna tional normalized ratio (INR) by coagulation assay (relatOrdered By: Pearl Michel on 09-22-2022 INR Coag (PPP) [Relative time] 3.6 {INR} [facility] Comment on above: INR Therapeutic Rang e A) Pre- and Peroperative OAT started two weeks before surgery. NOT HIP SURGERY: 1.5 - 2.5 HIP SURGERY: 2 - 3B) Primary and secondary prevention of venous THROMBOSIS: 2 - 3C) Active venous thrombosis, pulmonary embolismand prevention of recurrent venous thrombosis: 2 - 3D) Prevention of arterial thromboembolismincluding patients with mechanical heart valves: 3 - 4.5 Platelets Auto (Bld) [#/Vol] Ordered By: Pearl Michel on 09-22-2022 Platelets (Bld) [#/Vol] 180 10*3/uL 150-450 [facility] Potassium [Moles/volume] in Serum or PlasmaOrdered By: Pearl Michel on 09-22-2022 Potassium [Moles/Vol] 4.6 mmol/L 3.5-5.1 [facility] RBC Auto (Bld) [#/Vol]Ordere d By: Pearl Michel on 09-22-2022 RBC (Bld) [#/Vol] 4.09 10*6/uL 3.60-5.00 [facility] Serum or plasma anion gap de terminationOrdered By: Pearl Michel on 09-22-2022 Anion gap [Moles/Vol] 11.4 mmol/L 6.0-15.0 [facility] Serum or plasma high density lipoprotein (HDL) cholesterol measurementOrdered By: Pearl Michel on 09-22-2022 Cholesterol in HDL [Mass/Vol] 46 mg/dL 23-92 [facility] Comment on above: HDL CHOL ATP-III CLA SSIFICATION Cardiovascular RiskHDL > or equal to 60 mg/dL LOWHDL < 40 mg/dL HIGH Serum or plasma total choles terol/high density lipoprotein (HDL) cholesterol mass ratOrdered By: Pearl Michel on 09-22-2022 Cholesterol.total/Chol esterol in HDL [Mass ratio] 3.5 {ratio} <5.0 [facility] Sodium [Moles/volume] in Ser um or PlasmaOrdered By: Pearl Michel on 09-22-2022 Sodium [Moles/Vol] 142 mmol/L 136-145 [facility] Triglyceride [Mass/volume] i n Serum or PlasmaOrdered By: Pearl Michel on 09-22-2022 Triglyceride [Mass/Vol] 137 mg/dL 0-149 [facility] Comment on above: TRIG ATP III CLASSIF ICATIONTRIG less than 150 mg/dL NormalTRIG 150-199 mg/dL Borderline highTRIG 200-500 mg/dL High TRIG greater than 500 mg/dL Very highStandard traceable to the Center for Disease Conrtrol and Prevention (CDC) test method. Urea nitrogen [Mass/volume] in Serum or PlasmaOrdered By: Pearl Michel on 09-22-2022 Urea nitrogen [Mass/Vol] 44 mg/dL 7-25 [facility] WBC Auto (Bld) [#/Vol]Ordere d By: Pearl Michel on 09-22-2022 WBC (Bld) [#/Vol] 6.2 10*3/uL 3.8-11.6 [facility] Tobacco Screening.on 023 Fall risk assessment b) One or more fall s in the last year [facility] Yap 250 DO Work Phone: Tobacco use status [facility] b) No [facility] NetworksAsh[facility] Centerimp[facility] 250 DO Work Phone: [facility] CARDIAC STRESS/REST INJE CTIONon 09-14-2022 [facility] CARDIAC STRESS/REST INJECTION Patient Name: ERIN CANALES STUDY: MYOCARDIAL PERFUSION STRESS TEST WITH LEXISCAN Performing facility: [facility], [address] [place], [place] [id number] [facility] Provider: Wili Olivarez MD, FACC PCP: Dr. Ashley Chaudhary Supervising provider: Bg Nation MD, FACC INDICATION: Angina pectoris CAD; HISTORY: Gender: F; Age: 87 y/o ; Height: 0 cm; Weight: 0 kg. Abnormal EKG; CAD; High Cholesterol; Family HX CAD; Arrhythmias; HTN; Chest Pain; SOB; Denies smoking. Cardiac catheterization on 2009. PTCA on 2009. COMPARISON: Previous nuclear testing completed [id number] at [facility]. ACCESSION NUMBER(S): [id number]; [id number]; [id number] ORDERING CLINICIAN: AKHIL OLIVAREZ TECHNIQUE: ONE DAY protocol. Stress injection: Date:09-14-22, 34.9 mCi of Myoview IV 20 seconds after rapid injection of Lexiscan. Rest injection: Date: 09-14-22, 11.1 mCi of Myoview IV at rest. The patient had a rapid injection of 0.4 mg of Lexiscan IV over 10 seconds. Imaging was performed by gated tomographic technique. Reason for Lexiscan: uses walker/cane STRESS TEST DATA: Resting heart rate was 52 BPM. Resting blood pressure was 128/60 mmHg. Peak blood pressure was 120/62 mmHg. Peak heart rate was 63 BPM. 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 There were no significant ischemic ECG changes or dysrhythmias. The patient did not have chest pains/symptoms during procedure. There was a normal recovery phase. IMAGING RESULTS: Image quality was good. Rest and stress tomographic images were reviewed and revealed abnormal perfusion. There was evidence of of a small-sized reversible basal anterior perfusion abnormality consistent with ischemia of mild intensity. There was no evidence of perfusion abnormality consistent with infarction. There was no left ventricular dilatation with stress. Overall left ventricular systolic function appeared to be abnormal. There was mild global hypokinesis. LVEF was 48%. TID is 1.02 and is normal. There was no evidence of attenuation artifact. IMPRESSION: Abnormal Lexiscan Myoview cardiac perfusion stress test. Small anterior basal myocardial ischemia by perfusion imaging. No myocardial infarction by perfusion imaging. Abnormal left ventricular systolic function with mild global hypokinesis. Left ventricular ejection fraction 48 %. When compared to study from 2009 the previous study reported small to moderate-sized anterolateral myocardial ischemia, current study revealed an area of basal anterior myocardial ischemia of small-size. Electronically signed by: BG NATION MD [facility] Panel Informationon 09-14 Please click on the link to view the study images Normal -[facility] Heart-Norwa lk 600 DO Work Phone: Normal [facility] Heart-Sandu ayde 250 DO Work Phone: Tobacco Screening.on 023 Adult depression screening assessment No [facility]-Sandu ayde 250 DO Work Phone: Fall risk assessment b) One or more fall s in the last year -[facility]-Sandu ayde 250 DO Work Phone: Tobacco use status CPHS b) No -[facility] Heart-Sandu ayde 250 DO Work Phone: CNPNon 08-29-2022 CNPN Telephone (PLASMN) -- ERIN CANALES ([id number]) 1935 F Date Time Provider Department 08/29/22 SHWETA SOL During your visit today, we recorded the following information about you: Perry Zhang 08/29/2022 12:14 PM Signed Patient's daughter called with surgery questions and would like to speak with someone regarding anesthesia. Was not at appointment with mother when surgery was discussed. [phone] - Betty Canales (daughter) Geeta Archer RN 08/29/2022 12:56 PM Signed Returned call to patient's daughter. She was asking if the weight could be placed under local, explained that it could. The other options will require general and clearance from her secretary book keeper. Allergies As of Date: 08/29/2022 Noted Allergy Reaction MOTRIN (IBUPROFEN) 10/29/2012 16 - Unknown [id number] REDUCTASE INHIBIT*08/25/2022 14 - Other: See Comments Comments: Cannot walk when she takes it Date Reviewed: 08/25/2022 Reviewed by: Thuy Robles MA - Fully Assessed Reason for Visit: Patient Question [5837] Prescriptions as of 08/29/2022 - torsemide (DEMADEX) 5 mg tablet Take 5 mg by mouth. - amiodarone (PACERONE) 200 mg tablet Take 200 mg by mouth. - amLODIPine (NORVASC) 5 mg tablet Take 5 mg by mouth once daily. - warfarin (COUMADIN) 6 mg tablet Take 2.5 mg by mouth. - AMITRIPTYLINE 25 mg tablet Take 25 mg by mouth daily at bedtime. - DIGOXIN (DIGITEK ORAL) Take 0.125 mg by mouth. - carvedilol (COREG) 6.25 mg tablet Take 1 tablet by mouth twice daily. - lisinopril 5 mg tablet Take 10 mg by mouth once daily. 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 L>R bridging collaterals CX mild Paroxysmal atrial fibrillation (427.31) (I48.0) EKG in office normal sinus rhythm, QTc 453 on amiodarone 100mg BID Anticoagulated (V58.61) (Z79.01) CHADS VASc 5 anticoagulated on Coumadin Denies bleeding diatheses I believe DOACs are cost prohibitive High risk medication use (V58.69) (Z79.899) Amiodarone Surveillance testing June 2022 Essential hypertension (401.9) (I10) optimal in office Hyperlipidemia (272.4) (E78.5) Statin intolerant Echocardiogram abnormal (793.2) (R93.1) October 2021 echo LVEF 55 to 60% LVH mild LAE moderate dilated MR mild RVSP 40 mmHg Class 1 obesity with body mass index (BMI) of 33.0 to 33.9 in adult (278.00,V85.33) (E66.9,Z68.33) Reviewed the merits of healthy lifestyle choices on overall cardiovascular health. Orders Anticoagulated, Arteriosclerosis of coronary artery, Paroxysmal atrial fibrillation Renew: Isosorbide Mononitrate ER 30 MG Oral Tablet Extended Release 24 Hour; TAKE 1 TABLET DAILY Class 1 obesity with body mass index (BMI) of 33.0 to 33.9 in adult Healthy Weight Tips; Status:Complete; Done: 02Aug2022 Patient Instructions Please bring all medicines, vitamins, and herbal supplements with you when you come to the office. Prescriptions will not be filled unless you are compliant with your follow up appointments or have a follow up appointment scheduled as per instruction of your physician. Refills should be requested at the time of your visit. PLAN: Through informed decision making process incorporating patients unique circumstances, the following treatment plan will be initiated: 1. Prescription drug management of cardiovascular medication for efficacy, adherence to treatment, side effect assessment and polypharmacy. Current treatment clinically warranted and to continue without modifications. 2. Return for follow-up; in the interim, contact the office if new symptoms arise. Dr. Olivarez as scheduled Chief Complaint 1 month f/u: 'I am doing better these last couple weeks' ERIN CANALES is being seen for a 1 month follow-up of dyspnea. Patient presents to the office ambulatory with cane and steady gait. Last evaluated in clinic by myself 2022. At that time, she was seen for earlier follow-up due to concerns of progressive worsening dyspnea on exertion. Subsequent lab work showed no evidence of anemia with hemoglobin 12.8, hematocrit 41.0. I added isosorbide due to concerns of anginal equivalent and she has been compliant. We had a lengthy discussion regarding evaluation for progressive coronary artery disease and she pleasantly declined stress testing at that time. She presents to the office today where she reports I am surprised I am doing as good as I am . She has noted improvement in her dyspnea on exertion with addition of isosorbide, denies any type of side effects. She reports it made a big difference . Prior to office visit she went into the mall and ambulated for 20 straight minutes without concerns. 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 She reports that over the last 2 weeks she has not had to use nitroglycerin. 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 Her dyspnea on exertion has improved with addition of long-acting nitrates. She does report that after June 2022 office visit she was considering perfusion study because of how bad I was feeling but with response to medication she wants to continue to observe and discuss with Dr. Briggs at pending follow-up next month. Otherwise her weight is up 6 pounds today, there is no significant edema. Upon questioning she had been out of her torsemide 3 days earlier this week and just resumed treatment yesterday. She continues to sleep in a chair for comfort. Surgical History Problems History of Angioplasty Denied: History of Complete colonoscopy History of Hip surgery History of Lower leg fracture repair History of Surgery stent indications Current Meds Medication NameInstruction Amiodarone HCl - 200 MG Oral TabletTAKE 1/2 TABLET TWICE DAILY amLODIPine Besylate 5 MG Oral TabletTake 1 tablet daily Aspirin EC 81 MG Oral Tablet Delayed ReleaseTAKE 1 TABLET DAILY TWICE WEEKLY. Calcium 600 MG TABSTAKE 2 TABLET Daily Fish Oil 1000 MG Oral CapsuleTAKE 1 CAPSULE Daily Isosorbide Mononitrate ER 30 MG Oral Tablet Extended Release 24 HourTAKE 1 TABLET DAILY DIRECTED. Lisinopril 2.5 MG Oral TabletTAKE 1 TABLET EVERY DAY Nitroglycerin 0.4 MG (more content not included)... Normal [facility] Tobacco Screening.on 023 Tobacco use status CPHS b) No -[facility] HeartRivalryu ayde 250 DO Work Phone: CBC AUTO DIFFon 08-01-2022 BASO # 0.1 103/ul Normal 0.0-0.1 [facility] Comment on above: Performed By: #### C BC #### [facility] [address] [place], [place] [address] Dr. Parth Wilson Basophils/100 WBC (Bld) 0.9 % Normal 0.2-2.0 [facility] Comment on above: Performed By: #### C BC #### [facility] [address] [place], [place] [address] Dr. Parth Wilson EO # 0.1 103/ul Normal 0.0-0.7 [facility] Comment on above: Performed By: #### C BC #### [facility] [address] [place] [address] Dr. Parth Wilson Eosinophils/100 WBC (Bld) 1.6 % Normal 0.9-7.0 [facility] Comment on above: Performed By: #### C BC #### [facility] [address] [place] [address] Dr. Parth Wilson Erythrocyte distribution width (RBC) [Ratio] 14.7 % Normal 11.0-15.0 [facility] Comment on above: Performed By: #### C BC #### [facility] [address] [place] [address] Dr. Parth Wilson Hematocrit (Bld) [Volume fraction] 41.0 % Normal 36.0-48.0 [facility] Comment on above: Performed By: #### C BC #### [facility] [address] [place] [address] Dr. Parth Wilson Hemoglobin (Bld) [Mass/Vol] 12.8 g/dL Normal 12.0-16.0 [facility] Comment on above: Performed By: #### C BC #### [facility] [address] [place] [address] Dr. Parth Wilson IG # 0.02 10e3/ul Normal 0.00-0.03 [facility] Comment on above: Performed By: #### C BC #### [facility] [address] [place] [address] Dr. Parth Wilson IG % 0.4 % Normal 0.0-0.5 [facility] Comment on above: Performed By: #### C BC #### [facility] [address] [place] [address] Dr. Parth Wilson LYMPH # 1.6 103/ul Normal 1.2-3.8 [facility] Comment on above: Performed By: #### C BC #### [facility] [address] [place] [address] Dr. Parth Wilson Lymphocytes/100 WBC (Bld) 29.2 % Normal 20.5-60.0 [facility] Comment on above: Performed By: #### C BC #### [facility] [address] [place] [address] Dr. Parth Wilson MANUAL DIFF REQ NO Normal [facility] Comment on above: Performed By: #### C BC #### [facility] [address] [place] [address] Dr. Parth Wilson MCH (RBC) [Entitic mass] 30.8 pg Normal 26.7-34.0 [facility] Comment on above: Performed By: #### C BC #### [facility] [address] [place] [address] Dr. Parth Wilson MCHC (RBC) [Mass/Vol] 31.2 g/dL Normal 29.9-35.2 [facility] Comment on above: Performed By: #### C BC #### [facility] [address] [place] [address] Dr. Parth Wilson MCV (RBC) [Entitic vol] 98.8 fL Normal 81.0-99.0 [facility] Comment on above: Performed By: #### C BC #### [facility] [address] [place] [address] Dr. Parth Wilson MONO # 0.5 103/ul Normal 0.3-0.8 [facility] Comment on above: Performed By: #### C BC #### [facility] [address] [place] [address] Dr. Parth Wilson Monocytes/100 WBC (Bld) 9.5 % Normal 1.7-12.0 [facility] Comment on above: Performed By: #### C BC #### [facility] [address] [place] [address] Dr. Parth Wilson NEUT # 3.3 103/ul Normal 1.4-6.5 [facility] Comment on above: Performed By: #### C BC #### [facility] [address] [place] [address] Dr. Parth Wilson Neutrophils/100 WBC (Bld) 58.4 % Normal 43.0-75.0 [facility] Comment on above: Performed By: #### C BC #### [facility] [address] [place] [address] Dr. Parth Wilson Platelet mean volume (Bld) [Entitic vol] 9.9 fL Normal 9.5-13.5 [facility] Comment on above: Performed By: #### C BC #### [facility] [address] [place] [address] [address] Parth Wilson PLT 213 103/ul Normal 150-450 [facility] Comment on above: Performed By: #### C BC #### [facility] [address] [place] [address] [address] Parth Wilson RBC 4.15 106/ul Critically low 4.20-5.40 [facility] Comment on above: Performed By: #### C BC #### [facility] [address] [place] [address] [address] Parth Wilson WBC 5.6 103/ul Normal 4.0-11.0 [facility] Comment on above: Performed By: #### C BC #### [facility] [address] [place] [address] [address] 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 L>R bridging collaterals CX mild Hyperlipidemia (272.4) (E78.5) Statin intolerant Essential hypertension (401.9) (I10) Borderline in office today Statin intolerance (995.27) (Z78.9) Echocardiogram abnormal (793.2) (R93.1) October 2021 echo LVEF 55 to 60% LVH mild LAE moderate dilated MR mild RVSP 40 mmHg Class 1 obesity with body mass index (BMI) of 32.0 to 32.9 in adult (278.00,V85.32) (E66.9,Z68.32) Orders Anticoagulated, Arteriosclerosis of coronary artery, Paroxysmal atrial fibrillation Start: Isosorbide Mononitrate ER 30 MG Oral Tablet Extended Release 24 Hour; TAKE 1 TABLET DAILY DIRECTED Complete Blood Count; Status:Active; Requested for:05Jul2022; Class 1 obesity with body mass index (BMI) of 32.0 to 32.9 in adult Healthy Weight Tips; Status:Complete; Done: 05Jul2022 Patient Instructions Please bring all medicines, vitamins, and herbal supplements with you when you come to the office. Prescriptions will not be filled unless you are compliant with your follow up appointments or have a follow up appointment scheduled as per instruction of your physician. Refills should be requested at the time of your visit. Fall prevention education given PLAN: Through informed decision making process incorporating patients unique circumstances, the following treatment plan will be initiated: 1. Prescription drug management of cardiovascular medication for efficacy, adherence to treatment, side effect assessment and polypharmacy. Current treatment clinically warranted and to continue with following modifications: - Begin isosorbide 30mg take 1/2 tablet for next three days then increase to whole tablet 2. CBC 3. Return for follow-up; in the interim, contact the office if new symptoms arise. BILL COLLECTOR in one month to reassess symptoms If you speak to Daughter and change your mind about stress test then call and let me know Chief Complaint Earlier f/u due to reported chest pain: had one episode but maybe more short of breath' ERIN CANALES is being seen for chest pain and dyspnea. Patient presents to the office today ambulatory with steady gait and cane. Last evaluated in clinic Dr. Briggs February 2022. Patient is being seen today due to reported episode of chest pain. She reports 1 episode of nonexertional chest discomfort, did not require nitroglycerin usage. Has noted no recurrent symptoms. Her primary concern today is a 1 month history of shortness of breath if I walk any distance . She had no concerns coming in from the parking lot. She did report [facility] was more difficult , she then utilizes a motorized scooter. 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 She denies any type of exertional chest pain. Denies any real change in exercise capacity or functional tolerance. She denies symptoms prior to her 2009 PCI. She denies any type of palpitations. There is no evidence of orthopnea, PND. Lung sounds are clear. She sleeps in a chair for comfort. October 2021 LVEF 55 to 60%. PFTs completed June 2022. Discussed possibility of new onset dyspnea on exertion as anginal equivalent. Discussed options of observation, initiating nitrates, proceeding with perfusion study. She is concerned regarding the dyspnea on exertion but feels at my age I am not sure I would want any testing but if symptoms continued to persist she would want to keep up her current quality of life. After discussion, will initiate low-dose long-acting nitrate and she will return back in the office in 1 month to see if there is any benefit. If symptoms worsen or significant change in exercise capacity she would proceed with perfusion study. She is anticoagulated, denies any supratherapeutic INR or melena, hematemesis but for completeness we will check CBC to rule out any anemia as underlying etiology. History of Present Illness The patient states she has been generally stable since the last visit. Comorbid Illnesses: hypertension and hyperlipidemia. Symptoms: resolved chest pain at rest, denies exertional chest pain, stable dyspnea, stable fatigue, denies exercise intolerance, denies palpitations, denies edema, denies orthopnea, denies dizziness and denies orthostatic dizziness. Associated symptoms: no syncope. Her symptoms do not limit her activities. Disease Monitoring: The patient has had a stable weight. Medications: the patient is (more content not included)... Normal [facility] Tobacco Screening.on 023 Adult depression screening assessment No [facility] Yap 250 DO Work Phone: Fall risk assessment b) One or more fall s in the last year [facility] Yap 250 DO Work Phone: Tobacco use status CPHS b) No [facility] Cognii-Meilishuo 250 DO Work Phone: CALCIUMon 06-28-2022 Calcium [Mass/Vol] 9.4 mg/dL Normal 8.5-10.1 [facility] Comment on above: Performed By: #### C SINDHU CAMPO #### [facility] [address] [place] [address] [address] Parth Wilson CREATININEon 06-28-2022 Creatinine [Mass/Vol] 1.27 mg/dL Critically high 0.55-1.02 [facility] Comment on above: Performed By: #### C SINDHU CAMPO #### [facility] [address] [place] [address] [address] Parth Wilson EGFR-AF [place] 48 mL/min/1.73m2 Critically low >=60 [facility] Comment on above: Performed By: #### C SINDHU CAMPO #### [facility] [address] [place] [address] [address] Parth Wilson EGFR-NON AF [place] 40 mL/min/1.73m2 Critically low >=60 [facility] Comment on above: Performed By: #### C SINDHU CAMPO #### [facility] [address] [place] [address] [address] Parth Wilson Aspartate Amino Transferaseo n 06-13-2022 AST [Catalytic activity/Vol] 26 U/L Normal [facility] Comment on above: Performed By: #### P T #### [facility] [address] [place] [address] [place] Aspartate aminotransferase [ Enzymatic activity/volume] in Serum or PlasmaOrdered By: Akhil Olivarez on 06-13-2022 AST [Catalytic activity/Vol] 26 U/L [facility] Basic Metabolic Panelon Anion gap [Moles/Vol] 16.1 mmol/L High 6.0-15.0 [facility] Comment on above: Performed By: #### P T #### [facility] [address] [place] [address] [place] Calcium [Mass/Vol] 9.9 mg/dL Normal 8.2-10.2 [facility] Comment on above: Performed By: #### P T #### [facility] [address] [place] [address] [place] Chloride [Moles/Vol] 99 mmol/L Normal 95-114 [facility] Comment on above: Performed By: #### P T #### [facility] [address] [place] [id number] [place] CO2 [Moles/Vol] 26.6 mmol/L Normal 22.0-30.0 [facility] Comment on above: Performed By: #### P T #### [facility] [address] [place] [address] [place] Creatinine [Mass/Vol] 1.17 mg/dL High 0.44-1.03 [facility] Comment on above: Performed By: #### P T #### [facility] [address] [place] [address] [place] GFR/1.73 sq M.predicted MDRD (S/P/Bld) [Vol rate/Area] 44.882 mL/min/{1.73_m2} Normal [facility] Comment on above: Performed By: #### P T #### [place] [address] [place] Glucose [Mass/Vol] 111 mg/dL High 70-100 [facility] Comment on above: Result Comment: [facility] Glucose Reference Range is dependent on time and content of last meal. Glucose of more than 200 mg/dL in a nonstressed, ambulatory subject supports the diagnosis of Diabetes Mellitus. ADA recommended reference range Performed By: #### P T #### [place] [address] [place] Potassium [Moles/Vol] 4.7 mmol/L Normal 3.5-5.1 [facility] Comment on above: Performed By: #### P T #### [place] [id number] [place] Sodium [Moles/Vol] 137 mmol/L Normal 136-146 [facility] Comment on above: Performed By: #### P T #### [place] [id number] [place] Urea nitrogen [Mass/Vol] 35 mg/dL High 9-23 [facility] Comment on above: Performed By: #### P T #### [place] [address] [place] Calcium [Mass/volume] in Ser um or PlasmaOrdered By: Akhil Olivarez on 06-13-2022 Calcium [Mass/Vol] 9.9 mg/dL 8.2-10.2 [facility] Carbon dioxide, total [Moles /volume] in Serum or PlasmaOrdered By: Akhil Olivarez on 06-13-2022 CO2 [Moles/Vol] 26.6 mmol/L 22.0-30.0 [facility] Chloride [Moles/volume] in S payal or PlasmaOrdered By: Akhil Olivarez on 06-13-2022 Chloride [Moles/Vol] 99 mmol/L 95-114 [facility] Creatinine and Glomerular fi ltration rate.predicted panel (S/P/Bld)Ordered By: Akhil Olivarez on 06-13-2022 Creatinine [Mass/Vol] 1.17 mg/dL 0.44-1.03 [facility] Glucose [Mass/volume] in Ser um or PlasmaOrdered By: Akhil Olivarez on 06-13-2022 Glucose [Mass/Vol] 111 mg/dL 70-100 [facility] Comment on above: ADA recommended refe rence rangeRandom Glucose Reference Range is dependent on time and content of last meal. Glucose of more than 200 mg/dL in a nonstressed, ambulatory subject supports the diagnosis of Diabetes Mellitus. Laboratory - Chemistry and C hemistry - challengeOrdered By: Akhil Olivarez on 06-13-2022 GFR/1.73 sq M.predicted MDRD (S/P/Bld) [Vol rate/Area] 44.882 mL/min/{1.73_m2} [facility] No Panel InformationOrdered By: Akhil Olivarez on 06-13-2022 Pharmacy Creatinine Clearance (Chem N/A [facility] No Panel Informationon 06-13 3.34\S\3.34 Normal 0.45-5.33 -[facility] Heart-Sandu ayde 250 DO Work Phone: Comment on above: PERFORMED BY:[place] [id number] [place] [place], [place] [phone] MEDICAL DIRECTORJIANLAN SUN M.D. 26\S\26 Normal 10-42 [facility] Timothy ayde 250 DO Work Phone: 9.9\S\9.9 Normal 8.2-10.2 [facility] Timothy ayde 250 DO Work Phone: 16.1\S\16.1 above high threshold 6.0-15.0 [facility] Timothy ayde 250 DO Work Phone: 26.6\S\26.6 Normal 22.0-30.0 [facility] Timothy ayde 250 DO Work Phone: 99\S\99 Normal 95-114 [facility] Timothy messer 250 DO Work Phone: 4.7\S\4.7 Normal 3.5-5.1 [facility] Timothy ayde 250 DO Work Phone: 137\S\137 Normal 136-146 [facility] Timothy messer 250 DO Work Phone: 1.17\S\1.17 above high threshold 0.44-1.03 [facility] Timothy messer 250 DO Work Phone: 35\S\35 above high threshold 9-23 [facility] Timothy messer 250 DO Work Phone: 111\S\111 above high threshold 70-100 [facility] Timothy messer 250 DO Work Phone: Comment on above: Random Glucose Refer ence Range is dependent on time and content of last meal. Glucose of more than 200 mg/dL in a nonstressed, ambulatory subject supports the diagnosis of Diabetes Mellitus. ADA recommended reference range 44.882\S\44.882 Normal [facility] Timothy messer 250 DO Work Phone: Potassium [Moles/volume] in Serum or PlasmaOrdered By: Akhil Olivarez on 06-13-2022 Potassium [Moles/Vol] 4.7 mmol/L 3.5-5.1 [facility] Radiologyon 03-07-2023 XR Chest 2 Views Normal -[facility] Heart-Sandu ayde 250 DO Work Phone: Serum or plasma anion gap de terminationOrdered By: Akhil Olivarez on 06-13-2022 Anion gap [Moles/Vol] 16.1 mmol/L 6.0-15.0 [facility] Sodium [Moles/volume] in Ser um or PlasmaOrdered By: Akhil Olivarez on 06-13-2022 Sodium [Moles/Vol] 137 mmol/L 136-146 [facility] TSH DL <= 0.005 mIU/L QnOrde red By: Akhil Olivarez on 06-13-2022 TSH Qn 3.34 m[IU]/L 0.45-5.33 [facility] Thyroid Stimulating Hormoneo n 06-13-2022 TSH Qn 3.34 m[IU]/L Normal 0.45-5.33 [facility] Comment on above: Result Comment: PERF ORMED BY: [place] [address] PATHOLOGIST RESOURCING CONSULTANT GIULIA VALERIO M.D. Performed By: #### P T #### [address] Urea nitrogen [Mass/volume] in Serum or PlasmaOrdered By: Akhil Olivarez on 06-13-2022 Urea nitrogen [Mass/Vol] 35 mg/dL 9 [facility] XR chest 2V*on 06-13-2022 XR chest 2V* [facility] [place] [address] XRay Report Signed Patient: Erin Canales MR#: [id number] : 1935 Acct:[id number] Age/Sex: 87 / F ADM Date: 06/13/22 Loc: RT Room: Type: [facility] Attending Dr: Akhil Olivarez MD Copies to: Akhil Olivarez MD Ordering Provider: Akhil Olivarez MD Date of Service: 06/13/22 XR/XR chest 2V*: I48.0, Z79.899 Chest 2 views CLINICAL HISTORY: Follow-up for long-term medication use for A. fib. COMPARISON: Chest 12/13/2021 FINDINGS: Heart and esophagus appear unchanged. Degree of interstitial changes are unchanged. No new consolidation pneumothorax pleural effusion or free air. XR/XR chest 2V* IMPRESSION: NO ACUTE CARDIOPULMONARY ABNORMALITY. Impression dictated by: Aristides Estrada Jr., D.ORadha06/13/2022 3:26 PM Dictation Location: [place] [address] Transcribed By: [facility] 06/13/22 1526 Dictated By: Aristides Estrada Jr, DO 06/13/22 1525 Signed By: 06/13/22 152 [facility] Covid-19 PCR (CVDTBH)on SARS-CoV-2 (COVID-19) RNA CIERA+probe Ql (Unsp spec) Detected Critically abnormal NOT DETECTED [facility] Comment on above: Result Comment: This test is not yet approved or cleared by the [place] FDA. When there are no FDA-approved or cleared tests available, and other criteria are met, FDA can make tests available under an emergency access mechanism called an Emergency Use Authorization (EUA). The EUA for this test is supported by the [place] of Health and Human Service's (HHS's) declaration that circumstances exist to justify the emergency use of in vitro diagnostics for the detection and/or diagnosis of the virus that causes COVID-19. This EUA will remain in effect (meaning this test can be used) for the duration of the COVID-19 declaration justifying emergency of IVDs, unless it is terminated or revoked by FDA (after which the test may no longer be used). Performed By: #### C VDTBH #### [facility] [address] [place] [address] Dr. Parth Wilson INFLUENZA A AND B AGon 03-10 INFLUANEGH SEE BELOW Normal [facility] Comment on above: Result Comment: Nega tive for Flu A protein angiten. Infection due to Flu A cannot be ruled out. Flu A angiten in the sample may be below the detection limit of the test. Performed By: #### I NFLUAB #### [facility] [address] [address] [address] Parth Wilson [facility] SEE BELOW Normal [facility] Comment on above: Result Comment: Nega tive for Flu B protein antigen. Infection due to Flu B cannot be ruled out. Flu B antigen in the sample may be below the detection limit of the test. Performed By: #### I NFLUAB #### [facility] [address] [address] [address] Parth Wilson INFLUENZA A AG Negative Normal NEGATIVE SEE COMMENT [facility] Comment on above: Performed By: #### I NFLUAB #### [facility] [address] [place] [address] Dr. Parth Wilson INFLUENZA B AG Negative Normal NEGATIVE SEE COMMENT [facility] Comment on above: Performed By: #### I NFLUAB #### [facility] [address] [place] [address] Dr. Parth Wilson INTERNAL CONTROLS Within Normal Limits Normal Wi thin Normal Limits [facility] Comment on above: Performed By: #### I NFLUAB #### [facility] [address] [place] [address] Dr. 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) Class 1 obesity with body mass index (BMI) of 33.0 to 33.9 in adult (278.00,V85.33) (E66.9,Z68.33) Orders Class 1 obesity with body mass index (BMI) of 33.0 to 33.9 in adult Healthy Weight Tips; Status:Complete; Done: 07Feb2022 Some eating tips that can help you lose weight.; Status:Complete; Done: 07Feb2022 Paroxysmal atrial fibrillation, Premature ventricular contractions IO EKG Electrocardiogram- 12 Lead; Status:Complete; Done: 07Feb2022 SocHx: Never a smoker Tobacco Use Screening; Status:Complete; Done: 07Feb2022 Patient Instructions Please bring all medicines, vitamins, and herbal supplements with you when you come to the office. Prescriptions will not be filled unless you are compliant with your follow up appointments or have a follow up appointment scheduled as per instruction of your physician. Refills should be requested at the time of your visit. Patient provided Falls Prevention education sheet. Amiodarone follow-up as scheduled per routine. Pateint will not do PFT's for the time being due to bells palsy. Continue with Coumadin management follow up as directed. Follow up in 6 months Chief Complaint ERIN CANALES is being seen for a 2 month follow-up of. History of Present Illness Patient returns for follow-up of problems as noted. She is doing well. She did, though, developed Alvarado's palsy and she was rather sick with it for months. Throughout that she had no cardiac complaints or symptoms. Recent pulmonary function studies demonstrate satisfactory x-ray and lab chemistries. Because of the Alvarado's palsy she could not get a good seal on the mouthpiece for pulmonary function studies results are abnormal and erroneous. Because of this they will not be acted upon but we will reassess possibly in a year. She is on a tiny dose of amiodarone and the risk of side effects is low. She is doing well with antithrombotic therapy and this and maintenance of sinus rhythm with amiodarone have eliminated her stroke risk and palpitations. Her other cardiac risk factors which include hyperlipidemia and hypertension are well controlled. Her cardiomyopathy is asymptomatic and because of all the above we suggest continued therapy without change. The merits of diet and weight loss were reviewed. Surgical History Problems History of Angioplasty Denied: History of Complete colonoscopy History of Hip surgery History of Lower leg fracture repair History of Surgery stent indications Current Meds Medication NameInstruction Amiodarone HCl - 200 MG Oral TabletTAKE 0.5 TABLET Twice daily amLODIPine Besylate 5 MG Oral TabletTake 1 tablet daily Aspirin EC 81 MG Oral Tablet Delayed ReleaseTAKE 1 TABLET DAILY TWICE WEEKLY. Calcium 600 MG TABSTAKE 1 TABLET DAILY. Fish Oil 1000 MG Oral CapsuleTake 1 capsule twice daily Lisinopril 2.5 MG Oral TabletTAKE 1 TABLET DAILY. Nortriptyline HCl - 25 MG Oral CapsuleTAKE 1 CAPSULE Daily Torsemide 5 MG Oral TabletTAKE 1 TABLET ONCE DAILY. Vitamin B12 TABSTAKE 1 TABLET DAILY DIRECTED. Vitamin D3 50 MCG (1999) Oral CapsuleTAKE 1 CAPSULE Daily Warfarin Sodium 3 MG Oral TabletTAKE 1 TABLET DAILY DIRECTED. Managed at [facility]. Allergies Medication Beta Adrenergic Blockers Allergy; Bradycardia;; Recorded By: Christy Gabriel; 02/07/2022 10:40:55 AM Motrin TABS Allergy; Hives;; Updated By: Katiana Lazaro; 03/21/2021 8:17:38 AM Statins Myalgia; Updated By: Katiana Lazaro; 03/21/2021 8:17:38 AM leg cramps Social History Problems Caffeine use (V49.89) (Z78.9) Hot sandy occas. Never a smoker No alcohol use No illicit drug use Review of Systems Constitutional: not feeling tired. Eyes: no eyesight problems. ENT: no hearing loss and no nosebleeds. Cardiovascular: no intermittent leg claudication and as noted in HPI. Respiratory: no chronic cough and no shortness of breath. Gastrointestinal: no change in bowel habits and no blood in stools. Genitourinary: no urinary frequency. Skin: no skin rashes. Neurological: no seizures and no frequent falls. Psychiatric: no depression and not suicidal. All other systems have been reviewed and are negative for complaint. Vitals Vital Signs Recorded: 07Feb2022 10:11AM Heart Rate62, Apical Trwiarhy305, RUE, Sitting Nkvfadqqo46, RUE, Sitting Height5 ft 2 in Wrpzci683 lb BMI Edrjkylozk42.84 kg/m2 BSA Calculated1.85 Tobacco Useb) No Falls Screening (Age 18+)b) One or more falls in the last year EKG done in office today Physical Exam Constitutional: alert and in no acute distress. Eyes: no erythema, swelling or discharge from the (more content not included)... Normal [facility] Tobacco Screening.on 022 Fall risk assessment b) One or more fall s in the last year [facility] Yap 250 DO Work Phone: Tobacco use status CP b) No [facility] Cognii-Meilishuo 250 DO Work Phone: Activated partial thrombopla stin time (aPTT) in platelet poor plasma by coagulation aOrdered By: Myron Villarreal on 01-10-2022 aPTT Coag (PPP) [Time] 36.5 s 25.1-36.5 [facility] Albumin [Mass/volume] in Ser um or PlasmaOrdered By: Myron Villarreal on 01-10-2022 Albumin [Mass/Vol] 4.1 g/dL 3.2-5.5 [facility] Automated erythrocytes count in urine sediment (number/area)Ordered By: Myron Villarreal on 01-10-2022 RBC Auto (Urine sed) [#/Area] 0-1 [HPF] 0-4 [facility] Automated leukocytes count i n urine sediment (number/area)Ordered By: Myron Villarreal on 01-10-2022 WBC Auto (Urine sed) [#/Area] 50-100 [HPF] 0-4 [facility] Basophils Auto (Bld) [#/Vol] Ordered By: PROVIDER TEMP on 01-10-2022 Basophils (Bld) [#/Vol] 0.1 10*3/uL 0.0-0.2 [facility] Basophils/100 WBC Auto (Bld) Ordered By: PROVIDER TEMP on 01-10-2022 Basophils/100 WBC (Bld) 1.1 % . [facility] Bilirubin Test strip Ql (U)O rdered By: Myron Villarreal on 01-10-2022 Bilirubin Ql (U) Negative Negative [facility] Blood hemoglobin measurement (mass/volume)Ordered By: PROVIDER TEMP on 01-10-2022 Hemoglobin (Bld) [Mass/Vol] 14.2 g/dL 11.8-15.4 [facility] Blood leukocytes automated c ount (number/volume)Ordered By: PROVIDER TEMP on 01-10-2022 WBC (Bld) [#/Vol] 7.4 10*3/uL 4.5-11.0 [facility] Color Auto (U)Ordered By: Stanislav Villarreal on 01-10-2022 Color (U) Yellow Yellow [facility] Creatinine and Glomerular fi ltration rate.predicted panel (S/P/Bld)Ordered By: Myron Villarreal on 01-10-2022 Creatinine [Mass/Vol] 0.87 mg/dL 0.44-1.03 [facility] Eosinophils Auto (Bld) [#/Vo l]Ordered By: PROVIDER TEMP on 01-10-2022 Eosinophils (Bld) [#/Vol] 0.1 10*3/uL 0.0-0.45 [facility] Eosinophils/100 WBC Auto (Bl d)Ordered By: PROVIDER TEMP on 01-10-2022 Eosinophils/100 WBC (Bld) 1.0 % . [facility] Erythrocyte distribution wid th Auto (RBC) [Ratio]Ordered By: PROVIDER TEMP on 01-10-2022 Erythrocyte distribution width (RBC) [Ratio] 14.0 % 11.9-15.3 [facility] Estimated glomerular filtrat ion rate (GFR) non- AmericanOrdered By: Myron Villarreal on 01-10-2022 GFR/1.73 sq M.predicted among non-blacks MDRD (S/P/Bld) [Vol rate/Area] > 60 mL/Min [facility] Globulin Calc (S) [Mass/Vol] Ordered By: Myron Villarreal on 01-10-2022 Globulin (S) [Mass/Vol] 3.4 g/dL [facility] Hematocrit Auto (Bld) [Volum e fraction]Ordered By: PROVIDER TEMP on 01-10-2022 Hematocrit (Bld) [Volume fraction] 42.8 % 34.0-46.4 [facility] Ketones Auto test strip (U) [Mass/Vol]Ordered By: Myron Villarreal on 01-10-2022 Ketones (U) [Mass/Vol] Negative Negative Fi [facility] Laboratory - CoagulationOrde red By: Myron Villarreal on 01-10-2022 PT Coag (PPP) [Time] 18.6 s 9.0-12.9 [facility] Laboratory - Hematology and Cell countsOrdered By: PROVIDER TEMP on 01-10-2022 Nucleated RBC/100 WBC (Bld) [Ratio] 0.2 % 0-0.5 [facility] Laboratory - UrinalysisOrder ed By: Myron Villarreal on 01-10-2022 Hyaline casts LM Ql (Urine sed) 0-8 [LPF] 0-8 [facility] Lymphocytes Auto (Bld) [#/Vo l]Ordered By: PROVIDER TEMP on 01-10-2022 Lymphocytes (Bld) [#/Vol] 1.6 10*3/uL 1.00-4.8 [facility] Lymphocytes/100 WBC Auto (Bl d)Ordered By: PROVIDER TEMP on 01-10-2022 Lymphocytes/100 WBC (Bld) 22.2 % . [facility] MCH Auto (RBC) [Entitic mass ]Ordered By: PROVIDER TEMP on 01-10-2022 MCH (RBC) [Entitic mass] 32.9 pg 24.7-34.3 [facility] MCHC Auto (RBC) [Mass/Vol]Or dered By: PROVIDER TEMP on 01-10-2022 MCHC (RBC) [Mass/Vol] 33.1 g/dL 32.0-35.0 [facility] MCV Auto (RBC) [Entitic vol] Ordered By: PROVIDER TEMP on 01-10-2022 MCV (RBC) [Entitic vol] 99.3 fL 80-100 [facility] Monocytes Auto (Bld) [#/Vol] Ordered By: PROVIDER TEMP on 01-10-2022 Monocytes (Bld) [#/Vol] 0.5 10*3/uL 0.0-0.8 [facility] Monocytes/100 WBC Auto (Bld) Ordered By: PROVIDER TEMP on 01-10-2022 Monocytes/100 WBC (Bld) 6.3 % . [facility] Neutrophils Auto (Bld) [#/Vo l]Ordered By: PROVIDER TEMP on 01-10-2022 Neutrophils (Bld) [#/Vol] 5.2 10*3/uL 1.8-7.7 [facility] Neutrophils/100 WBC Auto (Bl d)Ordered By: PROVIDER TEMP on 01-10-2022 Neutrophils/100 WBC (Bld) 69.4 % . [facility] Nitrite Test strip Ql (U)Ord ered By: Myron Villarreal on 01-10-2022 Nitrite Ql (U) Positive Negative [facility] No Panel InformationOrdered By: Myron Villarreal on 01-10-2022 Estimated GFR () > 60 mL/Min [facility] Comment on above: GFR estimated refere nce range: According to KDOQI guidelines, <60 ml/min/1.73m2 is sufficient to diagnose a patient with chronic kidney disease. Pharmacy Creatinine Clearance (Chem 44.27 [facility] Platelet mean volume Auto (B ld) [Entitic vol]Ordered By: PROVIDER TEMP on 01-10-2022 Platelet mean volume (Bld) [Entitic vol] 8.3 fL 6.3-10.7 [facility] Platelet poor plasma interna tional normalized ratio (INR) by coagulation assay (relatOrdered By: Myron Villarreal on 01-10-2022 INR Coag (PPP) [Relative time] 1.6 {INR} [facility] Comment on above: INR Therapeutic Rang e A) Pre- and Peroperative OAT started two weeks before surgery. NOT HIP SURGERY: 1.5 - 2.5 HIP SURGERY: 2 - 3B) Primary and secondary prevention of venous THROMBOSIS: 2 - 3C) Active venous thrombosis, pulmonary embolismand prevention of recurrent venous thrombosis: 2 - 3D) Prevention of arterial thromboembolismincluding patients with mechanical heart valves: 3 - 4.5 Platelets Auto (Bld) [#/Vol] Ordered By: PROVIDER TEMJai on 01-10-2022 Platelets (Bld) [#/Vol] 281 10*3/uL 150-450 [facility] Protein Auto test strip (U) [Mass/Vol]Ordered By: Myron Villarreal on 01-10-2022 Protein (U) [Mass/Vol] Negative Negative Fi [facility] Protein [Mass/volume] in Ser um or PlasmaOrdered By: Myron Villarreal on 01-10-2022 Protein [Mass/Vol] 7.5 g/dL 6.1-7.9 [facility] RBC Auto (Bld) [#/Vol]Ordere d By: PROVIDER TEMJai on 01-10-2022 RBC (Bld) [#/Vol] 4.31 10*6/uL 3.60-5.00 [facility] Serum or plasma alanine owusu otransferase measurement without P-5'-P (enzymatic activiOrdered By: Myron Villarreal on 10-04-2022 ALT No additional P-5'-P [Catalytic activity/Vol] 15 U/L 1060 [facility] Serum or plasma albumin/glob ulin mass ratioOrdered By: Myron Villarreal on 01-10-2022 Albumin/Globulin [Mass ratio] 1.2 {ratio} [facility] Serum or plasma alkaline dulce maria sphatase measurement (enzymatic activity/volume)Ordered By: Myron Villarreal on 01-10-2022 ALP [Catalytic activity/Vol] 56 U/L 32-92 [facility] Serum or plasma anion gap de terminationOrdered By: Myron Villarreal on 01-10-2022 Anion gap [Moles/Vol] 14.5 mmol/L 6.0-15.0 [facility] Serum or plasma aspartate am inotransferase measurement (enzymatic activity/volume)Ordered By: Myron Villarreal on 01-10-2022 AST [Catalytic activity/Vol] 22 U/L 1042 [facility] Serum or plasma calcium silva urement (mass/volume)Ordered By: Myron Villarreal on 01-10-2022 Calcium [Mass/Vol] 9.5 mg/dL 8.2-10.2 [facility] Serum or plasma chloride hector surement (moles/volume)Ordered By: Myron Villarreal on 01-10-2022 Chloride [Moles/Vol] 100 mmol/L 95-114 [facility] Serum or plasma glucose silva urement (mass/volume)Ordered By: Myron Villarreal on 01-10-2022 Glucose [Mass/Vol] 88 mg/dL 70-100 [facility] Comment on above: ADA recommended refe rence rangeRandom Glucose Reference Range is dependent on time and content of last meal. Glucose of more than 200 mg/dL in a nonstressed, ambulatory subject supports the diagnosis of Diabetes Mellitus. Serum or plasma potassium me asurement (moles/volume)Ordered By: Myron Villarreal on 01-10-2022 Potassium [Moles/Vol] 4.0 mmol/L 3.5-5.1 [facility] Serum or plasma sodium measu rement (moles/volume)Ordered By: Myron Villarreal on 01-10-2022 Sodium [Moles/Vol] 138 mmol/L 136-146 [facility] Serum or plasma total biliru bin measurement (mass/volume)Ordered By: Myron Villarreal on 01-10-2022 Bilirubin [Mass/Vol] 0.5 mg/dL 0.3-1.2 [facility] Serum or plasma total carbon dioxide measurement (moles/volume)Ordered By: Myron Villarreal on 01-10-2022 CO2 [Moles/Vol] 27.5 mmol/L 22.0-30.0 [facility] Serum or plasma urea nitroge n measurement (mass/volume)Ordered By: Myron Villarreal on 01-10-2022 Urea nitrogen [Mass/Vol] 20 mg/dL - [facility] Specific gravity Auto test s trip (U) [Rel density]Ordered By: Myron Villarreal on 01-10-2022 Specific gravity (U) [Rel density] 1.014 1.001-1.03 0 [facility] Squamous epithelial cells de tection in urine sediment by light microscopyOrdered By: Myron Villarreal on 01-10-2022 Epithelial cells.squamous LM Ql (Urine sed) 0-1 [HPF] 0-2 [facility] Urine bacteria detection by automated methodOrdered By: Myron Villarreal on 01-10-2022 Bacteria Auto Ql (U) 4+ None Seen [facility] Urine clarity by refractomet ry automatedOrdered By: Myron Villarreal on 01-10-2022 Clarity Refractometry automated (U) Cloudy Clear [facility] Urine glucose measurement by automated test strip (mass/volume)Ordered By: Myron Villarreal on 01-10-2022 Glucose Auto test strip (U) [Mass/Vol] Normal mg/dL Normal [facility] Urine hemoglobin detection b y automated test stripOrdered By: Myron Villarreal on 01-10-2022 Hemoglobin Auto test strip Ql (U) Negative Negative [facility] Urine leukocyte esterase det ection by automated test stripOrdered By: Myron Villarreal on 01-10-2022 Leukocyte esterase Auto test strip Ql (U) 4+ Negative [facility] Urobilinogen Auto test strip (U) [Mass/Vol]Ordered By: Myron Villarreal on 01-10-2022 Urobilinogen (U) [Mass/Vol] Normal mg/dL Normal [facility] pH Auto test strip (U)Ordere d By: Myron Villarreal on 01-10-2022 pH (U) 6.5 [pH] 5.0-9.0 [facility] Laboratory - CoagulationOrde red By: Doug Montana on 01-05-2022 PT Coag (PPP) [Time] 15.9 s 9.0-12.9 [facility] Platelet poor plasma interna tional normalized ratio (INR) by coagulation assay (relatOrdered By: Doug Montana on 01-05-2022 INR Coag (PPP) [Relative time] 1.4 {INR} [facility] Comment on above: INR Therapeutic Rang e A) Pre- and Peroperative OAT started two weeks before surgery. NOT HIP SURGERY: 1.5 - 2.5 HIP SURGERY: 2 - 3B) Primary and secondary prevention of venous THROMBOSIS: 2 - 3C) Active venous thrombosis, pulmonary embolismand prevention of recurrent venous thrombosis: 2 - 3D) Prevention of arterial thromboembolismincluding patients with mechanical heart valves: 3 - 4.5 Basophils Auto (Bld) [#/Vol] Ordered By: Doug Montana on 01-04-2022 Basophils (Bld) [#/Vol] 0.1 10*3/uL 0.0-0.2 [facility] Basophils/100 WBC Auto (Bld) Ordered By: Doug Montana on 01-04-2022 Basophils/100 WBC (Bld) 0.6 % . [facility] Blood hemoglobin measurement (mass/volume)Ordered By: Doug Montana on 01-04-2022 Hemoglobin (Bld) [Mass/Vol] 14.3 g/dL 11.8-15.4 [facility] Blood leukocytes automated c ount (number/volume)Ordered By: Doug Montana on 01-04-2022 WBC (Bld) [#/Vol] 10.4 10*3/uL 4.5-11.0 [facility] Eosinophils Auto (Bld) [#/Vo l]Ordered By: Doug Montana on 01-04-2022 Eosinophils (Bld) [#/Vol] 0.1 10*3/uL 0.0-0.45 [facility] Eosinophils/100 WBC Auto (Bl d)Ordered By: Doug Montana on 01-04-2022 Eosinophils/100 WBC (Bld) 0.6 % . [facility] Erythrocyte distribution wid th Auto (RBC) [Ratio]Ordered By: Doug Montana on 01-04-2022 Erythrocyte distribution width (RBC) [Ratio] 14.2 % 11.9-15.3 [facility] Hematocrit Auto (Bld) [Volum e fraction]Ordered By: Doug Montana on 01-04-2022 Hematocrit (Bld) [Volume fraction] 42.9 % 34.0-46.4 [facility] - CoagulationOrde red By: Doug Montana on 01-04-2022 PT Coag (PPP) [Time] 19.8 s 9.0-12.9 [facility] - Hematology and Cell countsOrdered By: Doug Montana on 01-04-2022 Nucleated RBC/100 WBC (Bld) [Ratio] 0.1 % 0-0.5 [facility] Lymphocytes Auto (Bld) [#/Vo l]Ordered By: Doug Montana on 01-04-2022 Lymphocytes (Bld) [#/Vol] 2.1 10*3/uL 1.00-4.8 [facility] Lymphocytes/100 WBC Auto (Bl d)Ordered By: Doug Montana on 01-04-2022 Lymphocytes/100 WBC (Bld) 20.2 % . [facility] MCH Auto (RBC) [Entitic mass ]Ordered By: Doug Montana on 01-04-2022 MCH (RBC) [Entitic mass] 33.0 pg 24.7-34.3 [facility] MCHC Auto (RBC) [Mass/Vol]Or dered By: Doug Montana on 01-04-2022 MCHC (RBC) [Mass/Vol] 33.3 g/dL 32.0-35.0 [facility] MCV Auto (RBC) [Entitic vol] Ordered By: Doug Montana on 01-04-2022 MCV (RBC) [Entitic vol] 99.1 fL 80-100 [facility] Monocytes Auto (Bld) [#/Vol] Ordered By: Doug Montana on 01-04-2022 Monocytes (Bld) [#/Vol] 0.6 10*3/uL 0.0-0.8 [facility] Monocytes/100 WBC Auto (Bld) Ordered By: Doug Montana on 01-04-2022 Monocytes/100 WBC (Bld) 5.3 % . [facility] Neutrophils Auto (Bld) [#/Vo l]Ordered By: Doug Montana on 01-04-2022 Neutrophils (Bld) [#/Vol] 7.6 10*3/uL 1.8-7.7 [facility] Neutrophils/100 WBC Auto (Bl d)Ordered By: Doug Montana on 01-04-2022 Neutrophils/100 WBC (Bld) 73.3 % . [facility] Platelet mean volume Auto (B ld) [Entitic vol]Ordered By: Doug Montana on 01-04-2022 Platelet mean volume (Bld) [Entitic vol] 7.8 fL 6.3-10.7 [facility] Platelet poor plasma interna tional normalized ratio (INR) by coagulation assay (relatOrdered By: Doug Montana on 01-04-2022 INR Coag (PPP) [Relative time] 1.8 {INR} [facility] Comment on above: INR Therapeutic Rang e A) Pre- and Peroperative OAT started two weeks before surgery. NOT HIP SURGERY: 1.5 - 2.5 HIP SURGERY: 2 - 3B) Primary and secondary prevention of venous THROMBOSIS: 2 - 3C) Active venous thrombosis, pulmonary embolismand prevention of recurrent venous thrombosis: 2 - 3D) Prevention of arterial thromboembolismincluding patients with mechanical heart valves: 3 - 4.5 Platelets Auto (Bld) [#/Vol] Ordered By: Doug Montana on 01-04-2022 Platelets (Bld) [#/Vol] 296 10*3/uL 150-450 [facility] RBC Auto (Bld) [#/Vol]Ordere d By: Doug Montana on 01-04-2022 RBC (Bld) [#/Vol] 4.33 10*6/uL 3.60-5.00 [facility] CALCIUMon 12-29-2021 Calcium [Mass/Vol] 9.3 mg/dL Normal 8.5-10.1 [facility] Comment on above: Performed By: #### C SINDHU CAMPO #### [facility] [address] [address] [address] Parth Wilson CREATININEon 12-29-2021 Creatinine [Mass/Vol] 0.97 mg/dL Normal 0.55-1.02 [facility] Comment on above: Performed By: #### C [place], [place] #### [facility] [address] [address] [address] Parth Wilson EGFR-AF [place] >60 Normal >=60 [facility] Comment on above: Performed By: #### [place], [place] #### [facility] [id number] Parth Wilson EGFR-NON AF [place] 54 mL/min/1.73m2 Critically low >=60 [facility] Comment on above: Performed By: #### Abimbola [place], [place] #### [facility] [address] [address] [address] Parth Wilson Creatinine and Glomerular fi ltration rate.predicted panel (S/P/Bld)Ordered By: Akhil Olivarez on 12-13-2021 Creatinine [Mass/Vol] 0.74 mg/dL 0.44-1.03 [facility] Estimated glomerular filtrat ion rate (GFR) non- AmericanOrdered By: Akhil Olivarez on 12-13-2021 GFR/1.73 sq M.predicted among non-blacks MDRD (S/P/Bld) [Vol rate/Area] > 60 mL/Min [facility] No Panel InformationOrdered By: Akhil Olivarez on 12-13-2021 Estimated GFR () > 60 mL/Min [facility] Comment on above: GFR estimated refere nce range: According to KDOQI guidelines, <60 ml/min/1.73m2 is sufficient to diagnose a patient with chronic kidney disease. Pharmacy Creatinine Clearance (Chem N/A [facility] No Panel Informationon 12-13 3.46\S\3.46 Normal 0.45-5.33 -[facility] 250 DO Work Phone: Comment on above: PERFORMED BY:[facility] [place], [place] [phone] MEDICAL DIRECTORGIULIA VALERIO M.D. 19\S\19 Normal 10-42 -[facility] 250 DO Work Phone: 19.5\S\19.5 above high threshold 6.0-15.0 [facility] [employer]alee ayde 250 DO Work Phone: 10.4\S\10.4 above high threshold 8.2-10.2 [facility] [employer]e ayde 250 DO Work Phone: 26.6\S\26.6 Normal 22.0-30.0 [facility] VictorinoDiamond MultimediaGamaliel ayde 250 DO Work Phone: 95\S\95 Normal 95-114 [facility] [employer] NetworksGamaliel ayde 250 DO Work Phone: 4.1\S\4.1 Normal 3.5-5.1 [facility] Timothy ayde 250 DO Work Phone: 137\S\137 Normal 136-146 [facility] Timothy ayde 250 DO Work Phone: > 60 Normal [facility] Timothy messer 250 DO Work Phone: Comment on above: GFR estimated refere nce range: According to KDOQI guidelines, <60 ml/min/1.73m2 is sufficient to diagnose a patient with chronic kidney disease. 0.74\S\0.74 Normal 0.44-1.03 [facility] [employer]Gam[employer]iel ayde 250 DO Work Phone: 11\S\11 Normal 9-23 [facility] [employer]alee messer 250 DO Work Phone: [phone] 111\S\111 above high threshold 70-100 [facility] [employer] ayde 250 DO Work Phone: Comment on above: Random Glucose Refer ence Range is dependent on time and content of last meal. Glucose of more than 200 mg/dL in a nonstressed, ambulatory subject supports the diagnosis of Diabetes Mellitus. ADA recommended reference range Radiologyon 12-13-2021 XR Chest 2 Views Normal [facility] [employer]Gamaliel ayde 250 DO Work Phone: Serum or plasma anion gap de terminationOrdered By: Akhil Olivarez on 12-13-2021 Anion gap [Moles/Vol] 19.5 mmol/L 6.0-15.0 [facility] Serum or plasma aspartate am inotransferase measurement (enzymatic activity/volume)Ordered By: Akhil Olivarez on 12-13-2021 AST [Catalytic activity/Vol] 19 U/L 10-42 [facility] Serum or plasma calcium silva urement (mass/volume)Ordered By: Akhil Olivarez on 12-13-2021 Calcium [Mass/Vol] 10.4 mg/dL 8.2-10.2 [facility] Serum or plasma chloride hector surement (moles/volume)Ordered By: Akhil Olivarez on 12-13-2021 Chloride [Moles/Vol] 95 mmol/L 95-114 [facility] Serum or plasma glucose silva urement (mass/volume)Ordered By: Akhil Olivarez on 12-13-2021 Glucose [Mass/Vol] 111 mg/dL 70-100 [facility] Comment on above: ADA recommended refe rence range Random Glucose Reference Range is dependent on time and content of last meal. Glucose of more than 200 mg/dL in a nonstressed, ambulatory subject supports the diagnosis of Diabetes Mellitus. ADA recommended refe rence rangeRandom Glucose Reference Range is dependent on time and content of last meal. Glucose of more than 200 mg/dL in a nonstressed, ambulatory subject supports the diagnosis of Diabetes Mellitus. Serum or plasma potassium me asurement (moles/volume)Ordered By: Akhil Olivarez on 12-13-2021 Potassium [Moles/Vol] 4.1 mmol/L 3.5-5.1 [facility] Serum or plasma sodium measu rement (moles/volume)Ordered By: Akhil Olivarez on 12-13-2021 Sodium [Moles/Vol] 137 mmol/L 136-146 [facility] Serum or plasma total carbon dioxide measurement (moles/volume)Ordered By: Akhil Olivarez on 12-13-2021 CO2 [Moles/Vol] 26.6 mmol/L 22.0-30.0 [facility] Serum or plasma urea nitroge n measurement (mass/volume)Ordered By: Akhil Olivarez on 12-13-2021 Urea nitrogen [Mass/Vol] 11 mg/dL 9 [facility] TSH DL <= 0.005 mIU/L QnOrde red By: Akhil Olivarez on 12-13-2021 TSH Qn 3.46 m[IU]/L 0.45-5.33 [facility] Office Visit (Cardiology)on 11-28-2021 Follow-up visit Diagnoses/Problems Assessed Arteriosclerosis of coronary artery (414.00) (I25.10) Essential hypertension (401.9) (I10) Hyperlipidemia (272.4) (E78.5) Mitral regurgitation (424.0) (I34.0) Palpitations (785.1) (R00.2) Paroxysmal atrial fibrillation (427.31) (I48.0) Premature ventricular contractions (427.69) (I49.3) Class 1 obesity with body mass index (BMI) of 31.0 to 31.9 in adult (278.00,V85.31) (E66.9,Z68.31) Never a smoker Orders Arteriosclerosis of coronary artery Renew: Aspirin EC 81 MG Oral Tablet Delayed Release; TAKE 1 TABLET DAILY TWICE WEEKLY Class 1 obesity with body mass index (BMI) of 31.0 to 31.9 in adult Healthy Weight Tips; Status:Complete - Retrospective Authorization; Done: [id number] SocHx: Never a smoker Tobacco Use Screening; Status:Complete; Done: [id number] Patient Instructions Please bring all medicines, vitamins, and herbal supplements with you when you come to the office. Prescriptions will not be filled unless you are compliant with your follow up appointments or have a follow up appointment scheduled as per instruction of your physician. Refills should be requested at the time of your visit. Follow up in 2 months Chief Complaint SEFERINO results. History of Present Illness Patient returns in follow-up of problems as noted. In the interim she has had no angina or anginal equivalent symptomatology. Treatment of the risk factors for coronary atherosclerosis including hypertension and hyperlipidemia is reviewed and treatment is adequate and appropriate. She had a event monitor performed because of complaints of palpitations and review of that test result demonstrates no atrial fibrillation that requires treatment and only benign ectopy and not arrhythmic symptomatology. Because of this no changes in therapy appear necessary. 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 As a consequence of all those trips a wide variety of tests were done including cardiac testing and it was all normal and/or favorable because of this no changes in therapy appear necessary. As before we advocated the merits of diet exercise and weight loss. Surgical History Problems History of Angioplasty Denied: History of Complete colonoscopy History of Hip surgery History of Lower leg fracture repair History of Surgery stent indications Current Meds Medication NameInstruction Amiodarone HCl - 200 MG Oral Tablettake 1/2 tablet daily amLODIPine Besylate 5 MG Oral TabletTake 1 tablet daily Aspirin EC 81 MG Oral Tablet Delayed ReleaseTAKE 1 TABLET DAILY TWICE WEEKLY. Calcium 600 MG TABSTAKE 1 TABLET DAILY. Digoxin 125 MCG Oral TabletTAKE 1 TABLET DAILY. Fish Oil 1000 MG Oral CapsuleTake 1 capsule twice daily Lisinopril 2.5 MG Oral TabletTAKE 1 TABLET DAILY. Nortriptyline HCl - 25 MG Oral CapsuleTAKE 1 CAPSULE Daily Torsemide 5 MG Oral TabletTAKE 1 TABLET ONCE DAILY. Vitamin B12 TABSTAKE 1 TABLET DAILY DIRECTED. Vitamin D 50 MCG (1999) Oral CapsuleTAKE 1 CAPSULE Daily Warfarin Sodium 3 MG Oral TabletTAKE 1 TABLET DAILY DIRECTED. Managed at [facility]. Allergies Medication Motrin TABS Allergy; Hives;; Updated By: Katiana Lazaro; 03/21/2021 8:17:38 AM Statins Myalgia; Updated By: Katiana Lazaro; 03/21/2021 8:17:38 AM leg cramps Social History Problems Caffeine use (V49.89) (Z78.9) Hot sandy occas. Never a smoker No alcohol use No illicit drug use Review of Systems Constitutional: not feeling tired. Eyes: no eyesight problems. ENT: no hearing loss and no nosebleeds. Cardiovascular: no intermittent leg claudication and as noted in HPI. Respiratory: no chronic cough and no shortness of breath. Gastrointestinal: no change in bowel habits and no blood in stools. Genitourinary: no urinary frequency. Skin: no skin rashes. Neurological: no seizures and no frequent falls. Psychiatric: no depression and not suicidal. All other systems have been reviewed and are negative for complaint. Vitals Vital Signs Recorded: 28Nov2021 08:51AMRecorded: [id number] 08:22AM Drqscfri140, LUE, Ibjbxgl554, LUE, Sitting Cmztyzusa46, LUE, Kknrebj08, LUE, Sitting Heart Rate72, L Radial Height5 ft 2 in Aqcjfe812 lb BMI Uxhldhbeij49.64 kg/m2 BSA Calculated1.8 Tobacco Useb) No Falls Screening (Age 18+)a) No falls within the last year Physical Exam Constitutional: alert and in no acute distress. Eyes: no erythema, swelling or discharge from the eye . Neck: neck is supple, symmetric, trachea midline, no masses and no thyromegaly . Pulmonary: no increased work of breathing or signs of respiratory distress and lungs clear to auscultation. Cardiovascular: carotid pulses 2+ bilaterally with no bruit , JVP was normal, no thrills , regular rhythm, normal S1 and S2, no murmurs , pedal pulses 2+ bilaterally and no edema . Abdomen: abdomen non-tender, no masses and no hepatomegaly . Skin: skin warm and dry, normal skin turgor . Psyc (more content not included)... Normal [employer] Tobacco Screening.on 022 Fall risk assessment a) No falls within the last year [employer] Yap 250 DO Work Phone: Tobacco use status CP b) No [facility] 250 DO Work Phone: Laboratory - CoagulationOrde red By: Nguyễn Langston on 10-29-2021 PT Coag (PPP) [Time] 38.1 s 9.0-12.9 [facility] Platelet poor plasma interna tional normalized ratio (INR) by coagulation assay (relatOrdered By: Nguyễn Langston on 10-29-2021 INR Coag (PPP) [Relative time] 3.3 {INR} [facility] Comment on above: INR Therapeutic Rang e A) Pre- and Peroperative OAT started two weeks before surgery. NOT HIP SURGERY: 1.5 - 2.5 HIP SURGERY: 2 - 3 B) Primary and secondary prevention of venous THROMBOSIS: 2 - 3 C) Active venous thrombosis, pulmonary embolism and prevention of recurrent venous thrombosis: 2 - 3 D) Prevention of arterial thromboembolism including patients with mechanical heart valves: 3 - 4.5 INR Therapeutic Rang e A) Pre- and Peroperative OAT started two weeks before surgery. NOT HIP SURGERY: 1.5 - 2.5 HIP SURGERY: 2 - 3B) Primary and secondary prevention of venous THROMBOSIS: 2 - 3C) Active venous thrombosis, pulmonary embolismand prevention of recurrent venous thrombosis: 2 - 3D) Prevention of arterial thromboembolismincluding patients with mechanical heart valves: 3 - 4.5 Activated partial thrombopla stin time (aPTT) in platelet poor plasma by coagulation aOrdered By: Stephanie Locke on 10-28-2021 aPTT Coag (PPP) [Time] 45.5 s 25.1-36.5 [facility] Albumin [Mass/volume] in Ser um or PlasmaOrdered By: Stephanie Locke on 10-28-2021 Albumin [Mass/Vol] 3.9 g/dL 3.2-5.5 [facility] Basophils Auto (Bld) [#/Vol] Ordered By: Nguyễn Langston on 10-28-2021 Basophils (Bld) [#/Vol] 0.0 10*3/uL 0.0-0.2 [facility] Basophils/100 WBC Auto (Bld) Ordered By: Nguyễn Langston on 10-28-2021 Basophils/100 WBC (Bld) 0.3 % . [facility] Bilirubin Test strip Ql (U)O rdered By: Stephanie Locke on 10-28-2021 Bilirubin Ql (U) Negative Negative [facility] Blood hemoglobin measurement (mass/volume)Ordered By: Nguyễn Langston on 10-28-2021 Hemoglobin (Bld) [Mass/Vol] 14.6 g/dL 11.8-15.4 [facility] Blood leukocytes automated c ount (number/volume)Ordered By: Nguyễn Langston on 10-28-2021 WBC (Bld) [#/Vol] 7.1 10*3/uL 4.5-11.0 [facility] C reactive protein [Mass/vol ume] in Serum or Plasma by High sensitivity methodOrdered By: Tatyana Madrid on 10-28-2021 CRP High sensitivity method [Mass/Vol] 1.8 mg/L [facility] Comment on above: Cardiovascular Risk Classification (AHA/CDC) hsCRP < 1.0 mg/l low relative risk for CVD hsCRP 1.0-3.0 mg/l average relative risk for CVD hsCRP > 3.0 mg/l high relative risk for CVD hsCRP > 7.5 mg/l active inflammation* Two results two weeks apart and averaged provide a more stable estimate of hsCRP level. *hsCRP levels > 7.5 mg/l may suggest infection that can limit the use of this marker for estimation of CVD risk. Cardiovascular Risk Classification (AHA/CDC)hsCRP < 1.0 mg/l low relative risk for CVDhsCRP 1.0-3.0 mg/l average relative risk for CVDhsCRP > 3.0 mg/l high relative risk for CVDhsCRP > 7.5 mg/l active inflammation*Two results two weeks apart and averaged provide a morestable estimate of hsCRP level.*hsCRP levels > 7.5 mg/l may suggest infection that canlimit the use of this marker for estimation of CVD risk. COVID CepheidOrdered By: Dennis Locke on 10-28-2021 SARS-CoV-2 (COVID-19) Ab IA Ql Negative Negative [facility] Comment on above: This is a duplicate [employer] Xpert Xpress CoV-2/Flu/RSV Plus RNA by RT-PCR result to be used for statistical tracking purpose only. SARS-CoV-2 (COVID-19) RNA CIERA+probe Ql (Unsp spec) [facility] COVID-19 SOFIAOrdered By: Izzy Locke on 10-28-2021 SARS-CoV+SARS-CoV-2 (COVID-19) Ag IA.rapid Ql (Resp) Negative Negative [facility] Comment on above: This is a duplicate [employer] SARS Antigen (BRANDON) result to be used for statistical tracking purpose only. Cholesterol [Mass/volume] in Serum or PlasmaOrdered By: Ashely Adan on 10-28-2021 Cholesterol [Mass/Vol] 230 mg/dL 140-200 [facility] Comment on above: Chol less than 200 m g/dl low risk Chol 201-239 mg/dl borderline risk Chol 240 mg/dl and greater high risk Chol less than 200 m g/dl low riskChol 201-239 mg/dl borderline riskChol 240 mg/dl and greater high risk Cholesterol in LDL Calc [Mas s/Vol]Ordered By: Ashely Adan on 10-28-2021 Cholesterol in LDL [Mass/Vol] 158 mg/dL 0-100 [facility] Comment on above: LDL ATP III CLASSIFI CATION LDL less than 100 mg/dL Optimal LDL 100-129 mg/dL Near or above optimal LDL 130-159 mg/dL Borderline high LDL 160-189 mg/dL High LDL greater than 189 mg/dL Very high LDL ATP III CLASSIFI CATIONLDL less than 100 mg/dL OptimalLDL 100-129 mg/dL Near or above optimalLDL 130-159 mg/dL Borderline highLDL 160-189 mg/dL HighLDL greater than 189 mg/dL Very high Cholesterol in VLDL Calc [Ma ss/Vol]Ordered By: Ashely Adan on 10-28-2021 Cholesterol in VLDL [Mass/Vol] 21 mg/dL [facility] Color Auto (U)Ordered By: Izzy Locke on 10-28-2021 Color (U) Yellow Yellow [facility] Creatine kinase [Enzymatic a ctivity/volume] in Serum or PlasmaOrdered By: Nguyễn Langston on 10-28-2021 CK [Catalytic activity/Vol] 58 U/L [facility] Creatinine and Glomerular fi ltration rate.predicted panel (S/P/Bld)Ordered By: Nguyễn Langston on 10-28-2021 Creatinine [Mass/Vol] 0.88 mg/dL 0.44-1.03 [facility] Digoxin [Mass/volume] in Ser um or PlasmaOrdered By: Nguyễn Langston on 10-28-2021 Digoxin [Mass/Vol] 1.0 ng/mL 0.9-2.0 [facility] Comment on above: Last dose: - Eosinophils Auto (Bld) [#/Vo l]Ordered By: Nguyễn Langston on 10-28-2021 Eosinophils (Bld) [#/Vol] 0.0 10*3/uL 0.0-0.45 [facility] Eosinophils/100 WBC Auto (Bl d)Ordered By: Nguyễn Langston on 10-28-2021 Eosinophils/100 WBC (Bld) 0.3 % . [facility] Erythrocyte distribution wid th Auto (RBC) [Ratio]Ordered By: Nguyễn Langston on 10-28-2021 Erythrocyte distribution width (RBC) [Ratio] 13.1 % 11.9-15.3 [facility] Erythrocyte sedimentation ra te by Photometric methodOrdered By: Tatyana Madrid on 10-28-2021 ESR Photometric method (Bld) [Velocity] 24 mm/hr 0-29 [facility] Estimated glomerular filtrat ion rate (GFR) non- AmericanOrdered By: Nguyễn Langston on 10-28-2021 GFR/1.73 sq M.predicted among non-blacks MDRD (S/P/Bld) [Vol rate/Area] > 60 mL/Min [facility] Globulin Calc (S) [Mass/Vol] Ordered By: Stephanie Locke on 10-28-2021 Globulin (S) [Mass/Vol] 3.7 g/dL [facility] Glucose mean value [Mass/vol ume] in Blood Estimated from glycated hemoglobinOrdered By: Ashely Adan on 10-28-2021 Average glucose Estimated from glycated hemoglobin (Bld) [Mass/Vol] 137 mg/dL [facility] Hematocrit Auto (Bld) [Volum e fraction]Ordered By: Nguyễn Langston on 10-28-2021 Hematocrit (Bld) [Volume fraction] 43.8 % 34.0-46.4 [facility] Hemoglobin A1c percentageOrd ered By: Ashely Adan on 10-28-2021 HbA1c (Bld) [Mass fraction] 6.4 % 4.3-5.6 [facility] Comment on above: Increased risk for d iabetes: 5.7 - 6.4 diabetes: >6.4 glycemic control for adults with diabetes: <7.0 Increased risk for d iabetes: 5.7 - 6.4diabetes: >6.4glycemic control for adults with diabetes: <7.0 Ketones Auto test strip (U) [Mass/Vol]Ordered By: Stephanie Locke on 10-28-2021 Ketones (U) [Mass/Vol] Trace Negative [facility] - Chemistry and C hemistry - challengeOrdered By: Nguyễn Langston on 10-28-2021 Cobalamin (Vitamin B12) [Mass/Vol] 2953 pg/mL 180-914 [facility] Magnesium [Mass/Vol] 2.2 mg/dL 1.6-2.6 [facility] - Chemistry and C hemistry - challengeOrdered By: Stephanie Locke on 10-28-2021 Natriuretic peptide B (Bld) [Mass/Vol] 75.0 pg/mL 5-100 [facility] Laboratory - CoagulationOrde red By: Stephanie Locke on 10-28-2021 PT Coag (PPP) [Time] 30.7 s 9.0-12.9 [facility] Laboratory - Hematology and Cell countsOrdered By: Nguyễn Langston on 10-28-2021 Nucleated RBC/100 WBC (Bld) [Ratio] 0.1 % 0-0.5 [facility] Lymphocytes Auto (Bld) [#/Vo l]Ordered By: Nguyễn Langston on 10-28-2021 Lymphocytes (Bld) [#/Vol] 1.3 10*3/uL 1.00-4.8 [facility] Lymphocytes/100 WBC Auto (Bl d)Ordered By: Nguyễn Langston on 10-28-2021 Lymphocytes/100 WBC (Bld) 18.0 % . [facility] MCH Auto (RBC) [Entitic mass ]Ordered By: Nguyễn Langston on 10-28-2021 MCH (RBC) [Entitic mass] 32.1 pg 24.7-34.3 [facility] MCHC Auto (RBC) [Mass/Vol]Or dered By: Nguyễn Langston on 10-28-2021 MCHC (RBC) [Mass/Vol] 33.4 g/dL 32.0-35.0 [facility] MCV Auto (RBC) [Entitic vol] Ordered By: Nguyễn Langston on 10-28-2021 MCV (RBC) [Entitic vol] 96.1 fL 80-100 [facility] Monocytes Auto (Bld) [#/Vol] Ordered By: Nguyễn Langston on 10-28-2021 Monocytes (Bld) [#/Vol] 0.8 10*3/uL 0.0-0.8 [facility] Monocytes/100 WBC Auto (Bld) Ordered By: Nguyễn Langston on 10-28-2021 Monocytes/100 WBC (Bld) 11.9 % . [facility] Neutrophils Auto (Bld) [#/Vo l]Ordered By: Nguyễn Langston on 10-28-2021 Neutrophils (Bld) [#/Vol] 4.9 10*3/uL 1.8-7.7 [facility] Neutrophils/100 WBC Auto (Bl d)Ordered By: Nguyễn Langston on 10-28-2021 Neutrophils/100 WBC (Bld) 69.5 % . [facility] Nitrite Test strip Ql (U)Ord ered By: Stephanie Locke on 10-28-2021 Nitrite Ql (U) Negative Negative [facility] No Panel InformationOrdered By: Nguyễn Langston on 10-28-2021 25-Hydroxy Vitamin D Total 46.5 ng/mL 30-100 [facility] Comment on above: VITAMIN D STATUS 25( [place])VITAMIN D RANGE (ng/mL) Deficient <20 Insufficient 20 to <30 Sufficient 30 to 100 Reference: Mejia Crespo, Angel FRANZ, et al. Evaluation,treatment, and prevention of vitamin D deficiency; an Endocrine Society clinical practice guideline. JCEM. 2010; 96(7):1911-30. VITAMIN D STATUS 25( [place])VITAMIN D RANGE (ng/mL) Deficient <20 Insufficient 20 to <30Sufficient 30 to 100Reference: Mejia Crespo, Angel FRANZ, et al. Evaluation,treatment, and prevention of vitamin D deficiency; an Endocrine Society clinical practice guideline. JCEM. 2010; 96(7):1911-30. Estimated GFR () > 60 mL/Min [facility] Comment on above: GFR estimated refere nce range: According to KDOQI guidelines, <60 ml/min/1.73m2 is sufficient to diagnose a patient with chronic kidney disease. Pharmacy Creatinine Clearance (Chem 56.85 [facility] Platelet mean volume Auto (B ld) [Entitic vol]Ordered By: Nguyễn Langston on 10-28-2021 Platelet mean volume (Bld) [Entitic vol] 8.4 fL 6.3-10.7 [facility] Platelet poor plasma interna tional normalized ratio (INR) by coagulation assay (relatOrdered By: Stephanie Locke on 10-28-2021 INR Coag (PPP) [Relative time] 2.7 {INR} [facility] Comment on above: INR Therapeutic Rang e A) Pre- and Peroperative OAT started two weeks before surgery. NOT HIP SURGERY: 1.5 - 2.5 HIP SURGERY: 2 - 3 B) Primary and secondary prevention of venous THROMBOSIS: 2 - 3 C) Active venous thrombosis, pulmonary embolism and prevention of recurrent venous thrombosis: 2 - 3 D) Prevention of arterial thromboembolism including patients with mechanical heart valves: 3 - 4.5 Platelets Auto (Bld) [#/Vol] Ordered By: Nguyễn Langston on 10-28-2021 Platelets (Bld) [#/Vol] 229 10*3/uL 150-450 [facility] Protein Auto test strip (U) [Mass/Vol]Ordered By: Stephanie Locke on 10-28-2021 Protein (U) [Mass/Vol] Negative Negative Fi [facility] Protein [Mass/volume] in Ser um or PlasmaOrdered By: Stephanie Locke on 10-28-2021 Protein [Mass/Vol] 7.6 g/dL 6.1-7.9 [facility] RBC Auto (Bld) [#/Vol]Ordere d By: Nguyễn Langston on 10-28-2021 RBC (Bld) [#/Vol] 4.56 10*6/uL 3.60-5.00 [facility] Serum or plasma alanine owusu otransferase measurement without P-5'-P (enzymatic activiOrdered By: Stephanie Locke on 10-28-2021 ALT No additional P-5'-P [Catalytic activity/Vol] 21 U/L 10-60 [facility] Serum or plasma albumin/glob ulin mass ratioOrdered By: Stephanie Locke on 10-28-2021 Albumin/Globulin [Mass ratio] 1.1 {ratio} [facility] Serum or plasma alkaline dulce maria sphatase measurement (enzymatic activity/volume)Ordered By: Stephanie Locke on 10-28-2021 ALP [Catalytic activity/Vol] 57 U/L 32-92 [facility] Serum or plasma aspartate am inotransferase measurement (enzymatic activity/volume)Ordered By: Stephanie Locke on 10-28-2021 AST [Catalytic activity/Vol] 25 U/L 10-42 [facility] Serum or plasma calcium silva urement (mass/volume)Ordered By: Nguyễn Langston on 10-28-2021 Calcium [Mass/Vol] 8.8 mg/dL 8.2-10.2 [facility] Serum or plasma chloride hector surement (moles/volume)Ordered By: Nguyễn Langston on 10-28-2021 Chloride [Moles/Vol] 98 mmol/L 95-114 [facility] Serum or plasma glucose silva urement (mass/volume)Ordered By: Nguyễn Langston on 10-28-2021 Glucose [Mass/Vol] 121 mg/dL 70-100 [facility] Comment on above: ADA recommended refe rence range Random Glucose Reference Range is dependent on time and content of last meal. Glucose of more than 200 mg/dL in a nonstressed, ambulatory subject supports the diagnosis of Diabetes Mellitus. ADA recommended refe rence rangeRandom Glucose Reference Range is dependent on time and content of last meal. Glucose of more than 200 mg/dL in a nonstressed, ambulatory subject supports the diagnosis of Diabetes Mellitus. Serum or plasma high density lipoprotein (HDL) cholesterol measurementOrdered By: Ashely Adan on 10-28-2021 Cholesterol in HDL [Mass/Vol] 50 mg/dL 35-85 [facility] Comment on above: HDL CHOL ATP-III CLA SSIFICATION Cardiovascular Risk HDL > or equal to 60 mg/dL LOW HDL < 40 mg/dL HIGH HDL CHOL ATP-III CLA SSIFICATION Cardiovascular RiskHDL > or equal to 60 mg/dL LOWHDL < 40 mg/dL HIGH Serum or plasma potassium me asurement (moles/volume)Ordered By: Nguyễn Langston on 10-28-2021 Potassium [Moles/Vol] 4.3 mmol/L 3.5-5.1 [facility] Serum or plasma sodium measu rement (moles/volume)Ordered By: Nguyễn Langston on 10-28-2021 Sodium [Moles/Vol] 134 mmol/L 136-146 [facility] Serum or plasma total biliru bin measurement (mass/volume)Ordered By: Stephanie Locke on 10-28-2021 Bilirubin [Mass/Vol] 0.8 mg/dL 0.3-1.2 [facility] Serum or plasma total carbon dioxide measurement (moles/volume)Ordered By: Nguyễn Langston on 10-28-2021 CO2 [Moles/Vol] 25.0 mmol/L 22.0-30.0 [facility] Serum or plasma total choles terol/high density lipoprotein (HDL) cholesterol mass ratOrdered By: Ashely Adan on 10-28-2021 Cholesterol.total/Chol esterol in HDL [Mass ratio] 4.6 {ratio} <5.0 [facility] Serum or plasma urea nitroge n measurement (mass/volume)Ordered By: Nguyễn Langston on 10-28-2021 Urea nitrogen [Mass/Vol] 27 mg/dL 12-30 [facility] Specific gravity Auto test s trip (U) [Rel density]Ordered By: Stephanie Locke on 10-28-2021 Specific gravity (U) [Rel density] 1.012 1.001-1.03 0 [facility] TSH DL <= 0.005 mIU/L QnOrde red By: Nguyễn Langston on 10-28-2021 TSH Qn 1.93 m[IU]/L 0.45-5.33 [facility] Thyroxine (T4) free [Mass/vo lume] in Serum or PlasmaOrdered By: Nguyễn Langston on 10-28-2021 Free T4 [Mass/Vol] 1.04 ng/dL 0.61-1.12 [facility] Triglyceride [Mass/volume] i n Serum or PlasmaOrdered By: Ashely Adan on 10-28-2021 Triglyceride [Mass/Vol] 108 mg/dL 35-149 [facility] Comment on above: TRIG ATP III CLASSIF ICATION TRIG less than 150 mg/dL Normal TRIG 150-199 mg/dL Borderline high TRIG 200-500 mg/dL High TRIG greater than 500 mg/dL Very high Standard traceable to the Center for Disease Conrtrol and Prevention (CDC) test method. TRIG ATP III CLASSIF ICATIONTRIG less than 150 mg/dL NormalTRIG 150-199 mg/dL Borderline highTRIG 200-500 mg/dL High TRIG greater than 500 mg/dL Very highStandard traceable to the Center for Disease Conrtrol and Prevention (CDC) test method. Troponin I.cardiac [Mass/vol ume] in Serum or Plasma by High sensitivity methodOrdered By: Stephanie Locke on 10-28-2021 Troponin I.cardiac High sensitivity method [Mass/Vol] 13 pg/mL 0-15 [facility] Urine clarity by refractomet ry automatedOrdered By: Stephanie Locke on 10-28-2021 Clarity Refractometry automated (U) Clear Clear [facility] Urine glucose measurement by automated test strip (mass/volume)Ordered By: Stephanie Locke on 10-28-2021 Glucose Auto test strip (U) [Mass/Vol] Normal mg/dL Normal [facility] Urine hemoglobin detection b y automated test stripOrdered By: Stephanie Locke on 10-28-2021 Hemoglobin Auto test strip Ql (U) Negative Negative [facility] Urine leukocyte esterase det ection by automated test stripOrdered By: Stephanie Locke on 10-28-2021 Leukocyte esterase Auto test strip Ql (U) Negative Negative [facility] Urobilinogen Auto test strip (U) [Mass/Vol]Ordered By: Stephanie Locke on 10-28-2021 Urobilinogen (U) [Mass/Vol] Normal mg/dL Normal [facility] pH Auto test strip (U)Ordere d By: Stephanie Locke on 10-28-2021 pH (U) 6.0 [pH] 5.0-9.0 [facility] Activated partial thrombopla stin time (aPTT) in platelet poor plasma by coagulation aOrdered By: Myron Villarreal on 10-25-2021 aPTT Coag (PPP) [Time] 44.9 s 25.1-36.5 [facility] Albumin [Mass/volume] in Ser um or PlasmaOrdered By: Myron Villarreal on 10-25-2021 Albumin [Mass/Vol] 4.1 g/dL 3.2-5.5 [facility] Basophils Auto (Bld) [#/Vol] Ordered By: Myron Villarreal on 10-25-2021 Basophils (Bld) [#/Vol] 0.1 10*3/uL 0.0-0.2 [facility] Basophils/100 WBC Auto (Bld) Ordered By: Myron Vlilarreal on 10-25-2021 Basophils/100 WBC (Bld) 0.9 % . [facility] Blood hemoglobin measurement (mass/volume)Ordered By: Myron Villarreal on 10-25-2021 Hemoglobin (Bld) [Mass/Vol] 15.8 g/dL 11.8-15.4 [facility] Blood leukocytes automated c ount (number/volume)Ordered By: Myron Villarreal on 10-25-2021 WBC (Bld) [#/Vol] 9.4 10*3/uL 4.5-11.0 [facility] Creatine kinase [Enzymatic a ctivity/volume] in Serum or PlasmaOrdered By: Myron Villarreal on 10-25-2021 CK [Catalytic activity/Vol] 64 U/L 22-269 [facility] Creatinine and Glomerular fi ltration rate.predicted panel (S/P/Bld)Ordered By: Myron Villarreal on 10-25-2021 Creatinine [Mass/Vol] 1.02 mg/dL 0.44-1.03 [facility] Eosinophils Auto (Bld) [#/Vo l]Ordered By: Myron Villarreal on 10-25-2021 Eosinophils (Bld) [#/Vol] 0.1 10*3/uL 0.0-0.45 [facility] Eosinophils/100 WBC Auto (Bl d)Ordered By: Myron Villarreal on 10-25-2021 Eosinophils/100 WBC (Bld) 1.0 % . [facility] Erythrocyte distribution wid th Auto (RBC) [Ratio]Ordered By: Myron Villarreal on 10-25-2021 Erythrocyte distribution width (RBC) [Ratio] 13.0 % 11.9-15.3 [facility] Estimated glomerular filtrat ion rate (GFR) non- AmericanOrdered By: Myron Villarreal on 10-25-2021 GFR/1.73 sq M.predicted among non-blacks MDRD (S/P/Bld) [Vol rate/Area] 51 mL/Min [facility] Globulin Calc (S) [Mass/Vol] Ordered By: Myron Villarreal on 10-25-2021 Globulin (S) [Mass/Vol] 3.7 g/dL [facility] Glucose Glucometer (BldC) [M ass/Vol]Ordered By: Guillermo Sanders on 10-25-2021 Glucose [Mass/Vol] 143 mg/dL [facility] Comment on above: Random Glucose Refer ence Range is dependent on time and content of last meal. Glucose of more than 200 mg/dL in a nonstressed, ambulatory subject supports the diagnosis of Diabetes Mellitus. Hematocrit Auto (Bld) [Volum e fraction]Ordered By: Myron Villarreal on 10-25-2021 Hematocrit (Bld) [Volume fraction] 47.4 % 34.0-46.4 [facility] Laboratory - CoagulationOrde red By: Myron Villarreal on 10-25-2021 PT Coag (PPP) [Time] 29.8 s 9.0-12.9 [facility] Laboratory - Hematology and Cell countsOrdered By: Myron Villarreal on 10-25-2021 Nucleated RBC/100 WBC (Bld) [Ratio] 0.0 % 0-0.5 [facility] Lymphocytes Auto (Bld) [#/Vo l]Ordered By: Myron Villarreal on 10-25-2021 Lymphocytes (Bld) [#/Vol] 1.6 10*3/uL 1.00-4.8 [facility] Lymphocytes/100 WBC Auto (Bl d)Ordered By: Myron Villarreal on 10-25-2021 Lymphocytes/100 WBC (Bld) 16.9 % . [facility] MCH Auto (RBC) [Entitic mass ]Ordered By: Myron Villarreal on 10-25-2021 MCH (RBC) [Entitic mass] 32.1 pg 24.7-34.3 [facility] MCHC Auto (RBC) [Mass/Vol]Or dered By: Myron Villarreal on 10-25-2021 MCHC (RBC) [Mass/Vol] 33.4 g/dL 32.0-35.0 [facility] MCV Auto (RBC) [Entitic vol] Ordered By: Myron Villarreal on 10-25-2021 MCV (RBC) [Entitic vol] 96.1 fL 80-100 [facility] Monocytes Auto (Bld) [#/Vol] Ordered By: Myron Villarreal on 10-25-2021 Monocytes (Bld) [#/Vol] 1.1 10*3/uL 0.0-0.8 [facility] Monocytes/100 WBC Auto (Bld) Ordered By: Myron Villarreal on 10-25-2021 Monocytes/100 WBC (Bld) 11.4 % . [facility] Neutrophils Auto (Bld) [#/Vo l]Ordered By: Myron Villarreal on 10-25-2021 Neutrophils (Bld) [#/Vol] 6.5 10*3/uL 1.8-7.7 [facility] Neutrophils/100 WBC Auto (Bl d)Ordered By: Myron Villarreal on 10-25-2021 Neutrophils/100 WBC (Bld) 69.8 % . [facility] No Panel InformationOrdered By: Myron Villarreal on 10-25-2021 Estimated GFR () > 60 mL/Min [facility] Comment on above: GFR estimated refere nce range: According to KDOQI guidelines, <60 ml/min/1.73m2 is sufficient to diagnose a patient with chronic kidney disease. Pharmacy Creatinine Clearance (Chem N/A [facility] Platelet mean volume Auto (B ld) [Entitic vol]Ordered By: Myron Villarreal on 10-25-2021 Platelet mean volume (Bld) [Entitic vol] 8.6 fL 6.3-10.7 [facility] Platelet poor plasma interna tional normalized ratio (INR) by coagulation assay (relatOrdered By: Myron Villarreal on 10-25-2021 INR Coag (PPP) [Relative time] 2.6 {INR} [facility] Comment on above: INR Therapeutic Rang e A) Pre- and Peroperative OAT started two weeks before surgery. NOT HIP SURGERY: 1.5 - 2.5 HIP SURGERY: 2 - 3 B) Primary and secondary prevention of venous THROMBOSIS: 2 - 3 C) Active venous thrombosis, pulmonary embolism and prevention of recurrent venous thrombosis: 2 - 3 D) Prevention of arterial thromboembolism including patients with mechanical heart valves: 3 - 4.5 INR Therapeutic Rang e A) Pre- and Peroperative OAT started two weeks before surgery. NOT HIP SURGERY: 1.5 - 2.5 HIP SURGERY: 2 - 3B) Primary and secondary prevention of venous THROMBOSIS: 2 - 3C) Active venous thrombosis, pulmonary embolismand prevention of recurrent venous thrombosis: 2 - 3D) Prevention of arterial thromboembolismincluding patients with mechanical heart valves: 3 - 4.5 Platelets Auto (Bld) [#/Vol] Ordered By: Myron Villarreal on 10-25-2021 Platelets (Bld) [#/Vol] 226 10*3/uL 150-450 [facility] Protein [Mass/volume] in Ser um or PlasmaOrdered By: Myron Villarreal on 10-25-2021 Protein [Mass/Vol] 7.8 g/dL 6.1-7.9 [facility] RBC Auto (Bld) [#/Vol]Ordere d By: Myron Villarreal on 10-25-2021 RBC (Bld) [#/Vol] 4.93 10*6/uL 3.60-5.00 [facility] Serum or plasma alanine owusu otransferase measurement without P-5'-P (enzymatic activiOrdered By: Myron Villarreal on 10-25-2021 ALT No additional P-5'-P [Catalytic activity/Vol] 19 U/L 10-60 [facility] Serum or plasma albumin/glob ulin mass ratioOrdered By: Myron Villarreal on 10-25-2021 Albumin/Globulin [Mass ratio] 1.1 {ratio} [facility] Serum or plasma alkaline dulce maria sphatase measurement (enzymatic activity/volume)Ordered By: Myron Villarreal on 10-25-2021 ALP [Catalytic activity/Vol] 69 U/L 32-92 [facility] Serum or plasma aspartate am inotransferase measurement (enzymatic activity/volume)Ordered By: Myron Villarreal on 10-25-2021 AST [Catalytic activity/Vol] 28 U/L 10-42 [facility] Serum or plasma calcium silva urement (mass/volume)Ordered By: Myron Vilalrreal on 10-25-2021 Calcium [Mass/Vol] 10.0 mg/dL 8.2-10.2 [facility] Serum or plasma chloride hector surement (moles/volume)Ordered By: Myron Villarreal on 10-25-2021 Chloride [Moles/Vol] 96 mmol/L 95-114 [facility] Serum or plasma creatine kin ase MB (CKMB)/total creatine kinase (CK) ratio by calculaOrdered By: Myron Villarreal on 10-25-2021 CK.MB Calc [Catalytic fraction] 3.9 % 0.00-2.50 [facility] Serum or plasma creatine kin ase MB measurement (mass/volume)Ordered By: Myron Villarreal on 10-25-2021 CK.MB [Mass/Vol] 2.5 ng/mL 0.6-6.3 [facility] Serum or plasma glucose silva urement (mass/volume)Ordered By: Myron Villarreal on 10-25-2021 Glucose [Mass/Vol] 120 mg/dL 70-100 [facility] Comment on above: ADA recommended refe rence range Random Glucose Reference Range is dependent on time and content of last meal. Glucose of more than 200 mg/dL in a nonstressed, ambulatory subject supports the diagnosis of Diabetes Mellitus. ADA recommended refe rence rangeRandom Glucose Reference Range is dependent on time and content of last meal. Glucose of more than 200 mg/dL in a nonstressed, ambulatory subject supports the diagnosis of Diabetes Mellitus. Serum or plasma potassium me asurement (moles/volume)Ordered By: Myron Villarreal on 10-25-2021 Potassium [Moles/Vol] 4.3 mmol/L 3.5-5.1 [facility] Serum or plasma sodium measu rement (moles/volume)Ordered By: Myron Villarreal on 10-25-2021 Sodium [Moles/Vol] 134 mmol/L 136-146 [facility] Serum or plasma total biliru bin measurement (mass/volume)Ordered By: Myron Villarreal on 10-25-2021 Bilirubin [Mass/Vol] 0.7 mg/dL 0.3-1.2 [facility] Serum or plasma total carbon dioxide measurement (moles/volume)Ordered By: Myron Villarreal on 10-25-2021 CO2 [Moles/Vol] 24.8 mmol/L 22.0-30.0 [facility] Serum or plasma urea nitroge n measurement (mass/volume)Ordered By: Myron Villarreal on 10-25-2021 Urea nitrogen [Mass/Vol] 19 mg/dL 9-23 [facility] Troponin I.cardiac [Mass/vol ume] in Serum or Plasma by High sensitivity methodOrdered By: Myron Villarreal on 10-25-2021 Troponin I.cardiac High sensitivity method [Mass/Vol] 16 pg/mL 0-15 [facility] Urine culture routineOrdered By: Daily Hart on 10-23-2021 Bacteria identified Cx Nom (U) Enterococcus faecalis [facility] Albumin [Mass/volume] in Ser um or PlasmaOrdered By: Daily Hrat on 10-21-2021 Albumin [Mass/Vol] 4.2 g/dL 3.2-5.5 [facility] Automated erythrocytes count in urine sediment (number/area)Ordered By: Daily Hart on 10-21-2021 RBC Auto (Urine sed) [#/Area] 0-1 [HPF] 0-4 [facility] Automated leukocytes count i n urine sediment (number/area)Ordered By: Daily Hart on 10-21-2021 WBC Auto (Urine sed) [#/Area] 50-100 [HPF] 0-4 [facility] Basophils Auto (Bld) [#/Vol] Ordered By: Daily Hart on 10-21-2021 Basophils (Bld) [#/Vol] 0.1 10*3/uL 0.0-0.2 [facility] Basophils/100 WBC Auto (Bld) Ordered By: Daily Hart on 10-21-2021 Basophils/100 WBC (Bld) 1.0 % . [facility] Bilirubin Test strip Ql (U)O rdered By: Daily Hart on 10-21-2021 Bilirubin Ql (U) Negative Negative [facility] Blood hemoglobin measurement (mass/volume)Ordered By: Daily Hart on 10-21-2021 Hemoglobin (Bld) [Mass/Vol] 16.0 g/dL 11.8-15.4 [facility] Blood leukocytes automated c ount (number/volume)Ordered By: Daily Hart on 10-21-2021 WBC (Bld) [#/Vol] 6.8 10*3/uL 4.5-11.0 [facility] Color Auto (U)Ordered By: Jacqueline Hart on 10-21-2021 Color (U) Yellow Yellow [facility] Creatinine and Glomerular fi ltration rate.predicted panel (S/P/Bld)Ordered By: Daily Hart on 10-21-2021 Creatinine [Mass/Vol] 0.96 mg/dL 0.44-1.03 [facility] Digoxin [Mass/volume] in Ser um or PlasmaOrdered By: Daily Hart on 10-21-2021 Digoxin [Mass/Vol] 0.6 ng/mL 0.9-2.0 [facility] Comment on above: Last dose: - Eosinophils Auto (Bld) [#/Vo l]Ordered By: Daily Sharmaimore on 10-21-2021 Eosinophils (Bld) [#/Vol] 0.0 10*3/uL 0.0-0.45 [facility] Eosinophils/100 WBC Auto (Bl d)Ordered By: Daily Sharmaimore on 10-21-2021 Eosinophils/100 WBC (Bld) 0.7 % . [facility] Erythrocyte distribution wid th Auto (RBC) [Ratio]Ordered By: Dailystanislav Hart on 10-21-2021 Erythrocyte distribution width (RBC) [Ratio] 13.0 % 11.9-15.3 [facility] Estimated glomerular filtrat ion rate (GFR) non- AmericanOrdered By: Daily Hart on 10-21-2021 GFR/1.73 sq M.predicted among non-blacks MDRD (S/P/Bld) [Vol rate/Area] 55 mL/Min [facility] Globulin Calc (S) [Mass/Vol] Ordered By: Dailystanislav Hart on 10-21-2021 Globulin (S) [Mass/Vol] 3.9 g/dL [facility] Hematocrit Auto (Bld) [Volum e fraction]Ordered By: Dailystanislav Hart on 10-21-2021 Hematocrit (Bld) [Volume fraction] 47.9 % 34.0-46.4 [facility] Ketones Auto test strip (U) [Mass/Vol]Ordered By: Dailystanislav Hart on 10-21-2021 Ketones (U) [Mass/Vol] Negative Negative Fi [facility] Laboratory - Chemistry and C hemistry - challengeOrdered By: Daily Hart on 10-21-2021 Natriuretic peptide B (Bld) [Mass/Vol] 76.0 pg/mL 5-100 [facility] - Hematology and Cell countsOrdered By: Daily Hart on 10-21-2021 Nucleated RBC/100 WBC (Bld) [Ratio] 0.0 % 0-0.5 [facility] - UrinalysisOrder ed By: Daily Bullimore on 10-21-2021 Hyaline casts LM Ql (Urine sed) 0-8 [LPF] 0-8 [facility] Lymphocytes Auto (Bld) [#/Vo l]Ordered By: Daily Bullimore on 10-21-2021 Lymphocytes (Bld) [#/Vol] 1.6 10*3/uL 1.00-4.8 [facility] Lymphocytes/100 WBC Auto (Bl d)Ordered By: Daily Bullimore on 10-21-2021 Lymphocytes/100 WBC (Bld) 23.4 % . [facility] MCH Auto (RBC) [Entitic mass ]Ordered By: Daily Bullimore on 10-21-2021 MCH (RBC) [Entitic mass] 32.3 pg 24.7-34.3 [facility] MCHC Auto (RBC) [Mass/Vol]Or dered By: Daily Bullimore on 10-21-2021 MCHC (RBC) [Mass/Vol] 33.4 g/dL 32.0-35.0 [facility] MCV Auto (RBC) [Entitic vol] Ordered By: Daily Bullimore on 10-21-2021 MCV (RBC) [Entitic vol] 96.8 fL 80-100 [facility] Monocytes Auto (Bld) [#/Vol] Ordered By: Daily Bullimore on 10-21-2021 Monocytes (Bld) [#/Vol] 0.5 10*3/uL 0.0-0.8 [facility] Monocytes/100 WBC Auto (Bld) Ordered By: Daily Bullimore on 10-21-2021 Monocytes/100 WBC (Bld) 7.5 % . [facility] Neutrophils Auto (Bld) [#/Vo l]Ordered By: Daily Bullimore on 10-21-2021 Neutrophils (Bld) [#/Vol] 4.6 10*3/uL 1.8-7.7 [facility] Neutrophils/100 WBC Auto (Bl d)Ordered By: Daily Bullimore on 10-21-2021 Neutrophils/100 WBC (Bld) 67.4 % . [facility] Nitrite Test strip Ql (U)Ord ered By: Daily Hart on 10-21-2021 Nitrite Ql (U) Negative Negative [facility] No Panel InformationOrdered By: Daily Hart on 10-21-2021 Estimated GFR () > 60 mL/Min [facility] Comment on above: GFR estimated refere nce range: According to KDOQI guidelines, <60 ml/min/1.73m2 is sufficient to diagnose a patient with chronic kidney disease. Pharmacy Creatinine Clearance (Chem 41.83 [facility] Platelet mean volume Auto (B ld) [Entitic vol]Ordered By: Dailystanislav Hart on 10-21-2021 Platelet mean volume (Bld) [Entitic vol] 8.7 fL 6.3-10.7 [facility] Platelets Auto (Bld) [#/Vol] Ordered By: Dailystanislav Hart on 10-21-2021 Platelets (Bld) [#/Vol] 230 10*3/uL 150-450 [facility] Protein Auto test strip (U) [Mass/Vol]Ordered By: Dailystanislav Hart on 10-21-2021 Protein (U) [Mass/Vol] Negative Negative [facility] Protein [Mass/volume] in Ser um or PlasmaOrdered By: Daily Hart on 10-21-2021 Protein [Mass/Vol] 8.1 g/dL 6.1-7.9 [facility] RBC Auto (Bld) [#/Vol]Ordere d By: Daily Hart on 10-21-2021 RBC (Bld) [#/Vol] 4.95 10*6/uL 3.60-5.00 [facility] Serum or plasma alanine owusu otransferase measurement without P-5'-P (enzymatic activiOrdered By: Daily Hart on 10-21-2021 ALT No additional P-5'-P [Catalytic activity/Vol] 19 U/L 10-60 [facility] Serum or plasma albumin/glob ulin mass ratioOrdered By: [facility]stanislav [facility] on 10-21-2021 Albumin/Globulin [Mass ratio] 1.1 {ratio} [facility] Serum or plasma alkaline dulce maria sphatase measurement (enzymatic activity/volume)Ordered By: Dailystanislav Hart on 10-21-2021 ALP [Catalytic activity/Vol] 76 U/L 32-92 [facility] Serum or plasma aspartate am inotransferase measurement (enzymatic activity/volume)Ordered By: Dailystanislav Hart on 10-21-2021 AST [Catalytic activity/Vol] 27 U/L 10-42 [facility] Serum or plasma calcium silva urement (mass/volume)Ordered By: [facility]stanislav [facility] on 10-21-2021 Calcium [Mass/Vol] 9.6 mg/dL 8.2-10.2 [facility] Serum or plasma chloride hector surement (moles/volume)Ordered By: Dailystanislav [facility] on 10-21-2021 Chloride [Moles/Vol] 98 mmol/L 95-114 [facility] Serum or plasma glucose silva urement (mass/volume)Ordered By: Dailystanislav [facility] on 10-21-2021 Glucose [Mass/Vol] 120 mg/dL 70-100 [facility] Comment on above: ADA recommended refe rence range Random Glucose Reference Range is dependent on time and content of last meal. Glucose of more than 200 mg/dL in a nonstressed, ambulatory subject supports the diagnosis of Diabetes Mellitus. ADA recommended refe rence rangeRandom Glucose Reference Range is dependent on time and content of last meal. Glucose of more than 200 mg/dL in a nonstressed, ambulatory subject supports the diagnosis of Diabetes Mellitus. Serum or plasma potassium me asurement (moles/volume)Ordered By: Dailystanislav [facility] on 10-21-2021 Potassium [Moles/Vol] 3.9 mmol/L 3.5-5.1 [facility] Serum or plasma sodium measu rement (moles/volume)Ordered By: Dailystanislav [facility] 10-21-2021 Sodium [Moles/Vol] 138 mmol/L 136-146 [facility] Serum or plasma total biliru bin measurement (mass/volume)Ordered By: Dailystanislav [facility] on 10-21-2021 Bilirubin [Mass/Vol] 0.6 mg/dL 0.3-1.2 [facility] Serum or plasma total carbon dioxide measurement (moles/volume)Ordered By: Daily Hart on 10-21-2021 CO2 [Moles/Vol] 29.8 mmol/L 22.0-30.0 [facility] Serum or plasma urea nitroge n measurement (mass/volume)Ordered By: Daily Hart on 10-21-2021 Urea nitrogen [Mass/Vol] 22 mg/dL 9-23 [facility] Specific gravity Auto test s trip (U) [Rel density]Ordered By: Daily Hart on 10-21-2021 Specific gravity (U) [Rel density] 1.006 1.001-1.03 0 [facility] Squamous epithelial cells de tection in urine sediment by light microscopyOrdered By: Daily Hart on 10-21-2021 Epithelial cells.squamous LM Ql (Urine sed) None seen [HPF] 0-2 [facility] Troponin I.cardiac [Mass/vol ume] in Serum or Plasma by High sensitivity methodOrdered By: Daily Hart on 10-21-2021 Troponin I.cardiac High sensitivity method [Mass/Vol] 16 pg/mL 0-15 [facility] Urine bacteria detection by automated methodOrdered By: Daily Hart on 10-21-2021 Bacteria Auto Ql (U) None seen None Seen [facility] Urine clarity by refractomet ry automatedOrdered By: Daily Hart on 10-21-2021 Clarity Refractometry automated (U) Clear Clear [facility] Urine glucose measurement by automated test strip (mass/volume)Ordered By: Daily Hart on 10-21-2021 Glucose Auto test strip (U) [Mass/Vol] Normal mg/dL Normal [facility] Urine hemoglobin detection b y automated test stripOrdered By: Daily Hart on 10-21-2021 Hemoglobin Auto test strip Ql (U) Negative Negative [facility] Urine leukocyte esterase det ection by automated test stripOrdered By: Daily Hart on 10-21-2021 Leukocyte esterase Auto test strip Ql (U) 4+ Negative [facility] Urobilinogen Auto test strip (U) [Mass/Vol]Ordered By: Daily Hart on 10-21-2021 Urobilinogen (U) [Mass/Vol] Normal mg/dL Normal [facility] pH Auto test strip (U)Ordere d By: Daily Hart on 10-21-2021 pH (U) 5.5 [pH] 5.0-9.0 [facility]07 SARS-CoV-2 (COVID-19) RNA CIERA+probe Ql (Unsp spec) Not detected Normal NOT DETECTED [facility] Comment on above: Result Comment: This test is not yet approved or cleared by the [place] FDA. When there are no FDA-approved or cleared tests available, and other criteria are met, FDA can make tests available under an emergency access mechanism called an Emergency Use Authorization (EUA). The EUA for this test is supported by the [place] of Health and Human Service's (HHS's) declaration that circumstances exist to justify the emergency use of in vitro diagnostics for the detection and/or diagnosis of the virus that causes COVID-19. This EUA will remain in effect (meaning this test can be used) for the duration of the COVID-19 declaration justifying emergency of IVDs, unless it is terminated or revoked by FDA (after which the test may no longer be used). When diagnostic testing is negative, the possibility of a false negative should be considered in the context of a patient's recent exposures and the presence of clinical signs and symptoms consistent with SARS-CoV-2. Performed By: #### C VDTB #### [facility] [address] [place] [address] Dr. Parth Wilson INFLUENZA A AND B AGon 10-20 INFLUENZA A AG Negative Normal NEGATIVE SEE COMMENT [facility] Comment on above: Performed By: #### I NFLUAB #### [facility] [address] [address] [address] Parth Wilson INFLUENZA B AG Negative Normal NEGATIVE SEE COMMENT [facility] Comment on above: Performed By: #### I NFLUAB #### [facility] [address] [address] [address] Parth Wilson INTERNAL CONTROLS Within Normal Limits Normal Wi thin Normal Limits [facility] Comment on above: Performed By: #### I NFLUAB #### [facility] [address] [address] [address] Parth Wilson Cardiovasc Arrhythmia Result son 09-28-2021 Cardiovas Arrhythmia Results Reason For Visit Event Monitor: ERIN is here for the application of a 30 day event monitor in office., Diagnosis: syncope and palps Ordering Physician: Dr. Olivarez Enrollment sent to: [facility] Monitor number [id number] applied. Patient will be returning SEFERINO by mail 10/18/21 due to irritation. Holter monitor printed and placed on Dr. Akhil Olivarez MD desk to dictate. Procedure Holter monitor printed and placed on Dr. Olivarez desk to dictate. Diagnosis/Problems Assessed Palpitations (785.1) (R00.2) Near syncope (780.2) (R55) Patient Discussion/Summary Patient was ordered a 30-day event monitor for history of palpitations and near syncope.. The patient was able to wear the monitor for 19 days. The following observations are made: 1. There were 28 patient triggered events and 3 automatically triggered events. The initial patient triggered event was a baseline transmission demonstrating sinus rhythm rate 71 bpm. 2. Of the other 27 patient triggered events there were no recorded symptoms. Observed rhythm is sinus with rates between 59 and 79 bpm. 3. 5 of the patient triggered events were associated with PACs or PVCs. The remainder demonstrated sinus rhythm. 4. There were 3 automatically triggered events. 1 demonstrated PVCs and the other 2 were associated with sinus rhythm. Future Appointments Date/TimeProviderSpecialty Site 11/28/2021 08:20 Akhil Lay [id number] [facility] 2 Tony 250 DO Signatures Electronically signed by : Akhil Olivarez MD; Oct 26 2021 10:03AM EST (Author) [facility] Office Visit (Cardiology)on 09-21-2021 Follow-up visit Diagnoses/Problems Assessed Arteriosclerosis of coronary artery (414.00) (I25.10) Cardiomyopathy (425.4) (I42.9) Hyperlipidemia (272.4) (E78.5) Paroxysmal atrial fibrillation (427.31) (I48.0) Premature ventricular contractions (427.69) (I49.3) High risk medication use (V58.69) (Z79.899) Essential hypertension (401.9) (I10) Class 1 obesity with body mass index (BMI) of 33.0 to 33.9 in adult (278.00,V85.33) (E66.9,Z68.33) Palpitations (785.1) (R00.2) Near syncope (780.2) (R55) Orders Arteriosclerosis of coronary artery Renew: Aspirin EC 81 MG Oral Tablet Delayed Release; TAKE 1 TABLET DAILY TWICE WEEKLY Class 1 obesity with body mass index (BMI) of 33.0 to 33.9 in adult Healthy Weight Tips; Status:Complete - Retrospective Authorization; Done: 21Sep2021 Some eating tips that can help you lose weight.; Status:Complete - Retrospective Authorization; Done: 21Sep2021 Near syncope, Palpitations IO Event Monitor 30 days; Status:Active - Perform Order,Retrospective Authorization; Requested for:21Sep2021; Paroxysmal atrial fibrillation IO EKG Electrocardiogram- 12 Lead; Status:Complete; Done: 21Sep2021 Patient Instructions By signing my name below, I, Adrianne Mejía LPN. ,Scribe, attest that this documentation has been prepared under the direction and in the presence of Dr. Akhil Olivarez MD. Please bring all medicines, vitamins, and herbal supplements with you when you come to the office. Prescriptions will not be filled unless you are compliant with your follow up appointments or have a follow up appointment scheduled as per instruction of your physician. Refills should be requested at the time of your visit. Fall prevention education given Follow up after testing completed Amiodarone follow up per routine Chief Complaint ERIN CANALES is being seen for a 6 month follow-up of. History of Present Illness Patient returns in follow-up of problems as noted. In the interim she is done relatively well. She has no manifestations of coronary disease such as those that preceded her original diagnosis. Treatment and control of cardiovascular risk factors including her hypertension and hyperlipidemia is reviewed and no adjustments appear necessary. From time to time she has some palpitations and sense of impending near syncope and I am concerned it could represent heart block and/or sick sinus syndrome. Because of this I recommended an event monitor. For the meantime, though, she will continue amiodarone as before and the high risk nature of this medication was reviewed. Lab chest x-ray and pulmonary function studies are reviewed and appears no adjustments are necessary at this time. Surgical History Problems History of Angioplasty Denied: History of Complete colonoscopy History of Hip surgery History of Lower leg fracture repair History of Surgery stent indications Current Meds Medication NameInstruction Amiodarone HCl - 200 MG Oral TabletTAKE 0.5 TABLET Twice daily Aspirin EC 81 MG Oral Tablet Delayed ReleaseTAKE 1 TABLET DAILY TWICE WEEKLY. Calcium 600 MG TABSTAKE 1 TABLET DAILY. Digoxin 125 MCG Oral TabletTAKE 1 TABLET EVERY DAY Fish Oil 1000 MG Oral CapsuleTake 1 capsule twice daily Lisinopril 2.5 MG Oral TabletTAKE 1 TABLET DAILY. Nortriptyline HCl - 25 MG Oral CapsuleTAKE 1 CAPSULE Daily Torsemide 5 MG Oral TabletTAKE 1 TABLET ONCE DAILY. Vitamin B12 TABSTAKE 1 TABLET DAILY DIRECTED. Vitamin D 50 MCG (1999) Oral CapsuleTAKE 1 CAPSULE Daily Warfarin Sodium 3 MG Oral TabletTAKE 1 TABLET DAILY DIRECTED. Managed at [facility]. Allergies Medication Motrin TABS Allergy; Hives;; Updated By: Katiana Lazaro; 03/21/2021 8:17:38 AM Statins Myalgia; Updated By: Katiana Lazaro; 03/21/2021 8:17:38 AM leg cramps Social History Problems Caffeine use (V49.89) (Z78.9) Hot sandy occas. Never a smoker No alcohol use No illicit drug use Review of Systems Constitutional: not feeling tired. Eyes: no eyesight problems. ENT: no hearing loss and no nosebleeds. Cardiovascular: no intermittent leg claudication and as noted in HPI. Respiratory: no chronic cough and no shortness of breath. Gastrointestinal: no change in bowel habits and no blood in stools. Genitourinary: no urinary frequency. Skin: no skin rashes. Neurological: no seizures and no frequent falls. Psychiatric: no depression and not suicidal. All other systems have been reviewed and are negative for complaint. Vitals Vital Signs Recorded: 21Sep2021 02:43PM Heart Rate66, Apical Obibiyst646, RUE, Sitting Ucqhsflge19, RUE, Sitting Height5 ft 2 in Aebmrd015 lb BMI Gjkcabezaz53.84 kg/m2 BSA Calculated1.85 Tobacco Useb) No PHQ-2 #1. Over the last 2 weeks have you felt down, depressed or hopeless? (If yes, answer PHQ-9 below)No PHQ-2 #2. Over the last 2 weeks have you felt little interest or pleasure in doing things? (If yes, answer PHQ-9 below)No Fall Screeningb) One or more fall (more content not included)... Normal [facility] Tobacco Screening.on 022 Adult depression screening assessment No [facility] Timothy messer 250 DO Work Phone: Fall risk assessment b) One or more fall s in the last year [facility] Timothy messer 250 DO Work Phone: Tobacco use status CPHS b) No [facility] Timothy messer 250 DO Work Phone: No Panel Informationon 06-30 9.2\S\9.2 Normal 8.2-10.2 [facility] Adiel spicer 600 DO Work Phone: 28.3\S\28.3 Normal 22.0-30.0 [facility] Adiel spicer 600 DO Work Phone: 99\S\99 Normal 95-114 [facility] Adiel spicer 600 DO Work Phone: [phone] 4.6\S\4.6 Normal 3.5-5.1 [facility] Adiel spicer 600 DO Work Phone: [phone] 138\S\138 Normal 136-146 [facility] Adiel spicer 600 DO Work Phone: > 60 Normal [facility] Adiel spicer 600 DO Work Phone: [phone] Comment on above: GFR estimated refere nce range: According to KDOQI guidelines, <60 ml/min/1.73m2 is sufficient to diagnose a patient with chronic kidney disease. 52\S\52 Normal [facility] Adiel spicer 600 DO Work Phone: [phone] 1.00\S\1.00 Normal 0.44-1.03 [facility] Adiel spicer 600 DO Work Phone: 22\S\22 Normal 9-23 [facility] Adiel spicer 600 DO Work Phone: 91\S\91 Normal 70-100 [facility] Adiel spicer 600 DO Work Phone: Comment on above: Random Glucose Refer ence Range is dependent on time and content of last meal. Glucose of more than 200 mg/dL in a nonstressed, ambulatory subject supports the diagnosis of Diabetes Mellitus. ADA recommended reference range 24\S\24 Normal 10-42 [facility] Work Phone: 2.98\S\2.98 Normal 0.45-5.33 [facility] nayan 600 DO Work Phone: Comment on above: PERFORMED BY:[facility]111[facility]ITALIDALIA F[place]OU[place] [phone] MEDICAL DIRECTORGIULIA VALERIO M.D. Radiologyon 06-30-2021 XR Chest 2 Views Normal [facility] nayan 600 DO Work Phone: Tobacco Screening.on 022 Tobacco use status CPHS b) No [facility] Timothy ayde 250 DO Work Phone: Affirm DNA Panelon 7 Albina DNA Negative Normal Negative [facility] Comment on above: Result Comment: The AffirmVPII Microbial Identification Test is a nucleic acid hybridization test for the detection of Albina species, Gardnerella vaginalis and Trichomonas vaginalis nucleic acid in the vaginal fluid specimens from patients with symptoms of vaginitis/vaginosis.A positive result for Albina, Gardnerella, and/or Trichomonas vaginalis means nucleic acid is present in the sample and indicates that the patient has candidiasis, bacterial vaginosis, and/or trichomoniasis when consistent with clinical signs and symptoms.A negative result for Albina, Gardnerella, or Trichomonas tests suggests the patient does not have candidiasis, bacterial vaginosis and/or trichomonas, respectively, when consistent with clinical signs and symptoms.Results should be interpreted in conjunction with other clinical and laboratory data available to the clinician such as pH, amine odor, and vaginal discharge characterisitics. Simultaneous infections by more than one organism are common. Performed By: #### C [id number] ####[address] [place] [address] Gardnerella DNA Positive Abnormal Negative [facility] Comment on above: Performed By: #### C [id number] ####[address] [place] [address] Trichomonas DNA Negative Normal Negative [facility] Comment on above: Performed By: #### C [id number] ####[address] [address] Ambulatory Patient Education on 12-22-2016 Ambulatory Patient Education Patient Education MaterialsName: Jesenia Canales Current Date: 12/22/2016 14:33:40 [place] 1935 following sheet(s) are the Patient Education Leaflets for Jesenia Canales/GynPelvic Organ Prolapse: Surgery for CystoceleCystocele occurs when the bladder prolapses (sags) into the vagina. The goal of surgery is to repair the problem. This will help relieve your symptoms. Your surgery may include 1 or more repairs. The surgical procedureCystocele can be treated with an anterior repair. This type of surgery is done through the vagina. The sagging bladder is moved back into its normal position. Sutures (stitches) are placed in tissue between the bladder and the vagina. This helps hold the bladder in place. In some cases, another type of surgery is done. It can help correct weakness in the front wall of the vagina. The vagina is attached to strong tissues in the side wall of the pelvis.Your incisionsDuring surgery, the doctor will reach your pelvic organs through the vagina or the abdomen. An incision may be made in the vaginal wall. Surgery through the abdomen may be done with a single incision made up and down (vertically) or across (transverse), or through several small incisions (called laparoscopy).Possible risks and complications of this surgery? Infection? Bleeding? Risks of anesthesia? Damage to nerves, muscles, or nearby pelvic structures? Blood clots? Prolapse of the pelvic organ or organs occurring again? [employer]. [address] [place] [address]. All rights reserved. This information is not intended as a substitute for professional medical care. Always follow your healthcare professional's instructions.Pelvic Organ Prolapse: Surgery for Rectocele and EnteroceleThe organs in the pelvis are supported by structures around them. Things like aging and childbirth can cause these structures to weaken. Loss of support lets pelvic organs fall out of their normal position. This is called prolapse. If the rectum falls out of place and bulges into the vagina, it is called rectocele. If the small intestine falls out of place and bulges into the vagina, it is called enterocele. Surgery can be done to fix these problems. This will help relieve your symptoms. The surgical procedure? To correct a rectocele, the rectum is moved back to its normal position. The tissue between the vagina and rectum is sutured (stitched) to strengthen it. This stops the rectum from bulging into the vagina.? To correct an enterocele, the small intestine is moved away from the vagina. Excess tissue is then sutured. This holds it in place.Your incisionsDuring surgery, the doctor reaches your pelvic organs through the vagina or the abdomen. If going through the vagina, incisions may be made in the wall of the vagina. If the surgery is through the abdomen, several small incisions may be used to perform laparoscopic surgery, or one larger incision either up and down (vertical) or across (across) may be used.Possible risks and complications of prolapse surgery? Infection? Bleeding? Risks of anesthesia? Damage to nerves, muscles, or nearby pelvic structures? Blood clots? Prolapse of the pelvic organ or organs occurring again? [employer] [address] [place] [address]. All rights reserved. This information is not intended as a substitute for professional medical care. Always follow your healthcare professional's instructions.UrologyStress Urinary Incontinence: Having Retropubic Suspension SurgeryTo help treat stress urinary incontinence (BILLIE), your surgeon may perform a procedure called retropubic suspension. It is done by making an incision in the lower part of your belly (abdomen). During this surgery, the surgeon puts stitches through the tissue next to the vagina to help support the urethra and bladder firmly in place. This helps keep the urethra closed to prevent urine leakage. Your surgery will take about 2 hour(s). You will be asked to do some things at home to prepare for surgery. Below are guidelines to help you get ready. If you have any questions, call your nurse or doctor.How should I prepare for surgery?The weeks before surgery? Have any tests that your doctor orders.? Tell your doctor about aspirin and other medicines, vitamins, or herbs you take. Ask if you should stop taking them before surgery.? Stop smoking to help reduce your risks during surgery.? If you have been given any prescriptions to fill, do this before surgery.The night before surgery? You may be asked to give yourself an enema. This cleans out your bowels for surgery. You'll be told how to do it.? Follow any directions you are given for taking medicines and for not eating or drinking before surgery.The day of surgery Arrive at the hospital a few hours before surgery as directed. Have someone drive you there who can also stay during the surgery, and drive you home. At the hospital, your temperature and blood pressure will be taken. In some cases, tests may be done. Then, you will receive one or more IV (intravenous) lines. These lines give you fluids and medicines before, during, and after surgery. Some of your pubic hair may be removed. Tight stockings (compression stockings) may be put on your legs to help prevent blood clots.About anesthesiaTo keep you pain-free during surgery, you'll receive anesthesia. General anesthesia allows you to sleep. Regional anesthesia numbs the lower part of your body. Local anesthesia numbs the area that will be operated on. Before surgery, you'll meet with the anesthesiologist or nurse differential tester. He or she can tell you what kind of anesthesia you will receive and answer questions you may have.What happens during the surgery?? An incision about 4 inches long is made in the lower part of the abdomen, near the pubic hairline.? Through the incision, the surgeon places sutures into the tissue next to the vagina. Or sutures may be placed into the outside rankin of the vagina behind the urethra. The ends of the sutures are tied to strong tissues or bone nearby.? The incision is closed with sutures, allyn, or strips of tape (Steri-Strips).What are the risks and complications?The risks and complications of this procedure may include:? Infection? Bleeding? Risks of anesthesia? Blood clots? Damage to nerves, muscles, bladder, or nearby pelvic structures? Trouble urinating? Urinary urgency? [id number] [employer]. [address] [place] [address]. All rights reserved. This information is not intended as a substitute for professional medical care. Always follow your healthcare professional's instructions. Normal [facility] Gynecology Office/Clinic Not larry 12-22-2016 Gynecology Office/Clinic Note Chief Complaint ConsultationHistory of Present Illness Abnormal vaginal discharge: Yes Pelvic pain: No Spotting: No Vaginal itch/burning/odor: Yes Additional HPI details: 81y/o prolapse. Pt has a pessary. States causes infection. She sees PRESCHOOL PROGRAM DIRECTOR q 1 months. She want to only put it inside and not all the way up. C/o urinary incont, urge incont, urgency. Denies frequency/nocturia After an evaluation and further discussion with the patient she would really like to find a type of pessary that she can remove - we discussed the cube and did a fitting and she was able to remove and replace. Discussed using trimosan with placement and also discussed that she may need a repeat course of antibiotics. She is aware that she needs to remove this pessary daily and encouraged leaving it out at night.Affirm swab doneReview of Systems Additional Details Additional Details: States trimason burned vulvar area on 3rd day of using. Stopped using and now gets infections monthly Gastrointestinal Abdominal Pain: No Bloating: No Change in bowel habits: No Reflux/heartburn: No PsychoSocial Anxiety: No Depression2: No Homicidal Ideation: No Sleep Problems: No Suicidal Ideation1: No Urinary Nocturia: No Painful urination: No Urgency: Yes Urinary frequency: No Urinary Incontinence: YesPhysical Exam Vitals & Measurements BP: 124/78 HT: 155 cm WT: 85.5 kg BMI: 35.59 Lungs: [Clear to auscultation and percussion, non-labored respiration]. Heart: [Normal rate, regular rhythm, no murmur, gallop or edema]. Abdomen: [Soft, non-tender, non-distended, normal bowel sounds, no masses]. External Genitalia: [Normal urethral meatus, no lesions, vulvar skin intact]. Genitourinary: [Normal vaginal mucosa, no lesions or abnormal discharge, cervix intact without lesions or bleeding. No cystocele or rectocele]. Bimanual exam: [Normal sized, non-tender, mobile uterus. No adnexal tenderness or masses]. Additional Vitals Body Mass Index Measured: 35.59 kg/j4Jnxdehysix/Plan Cystocele Ordered: [id number] AMB OFFICE OP VISIT NEW [facility] 2 Clinic Rectocele Uterine prolapse Attempting a cube pessary - will call Ashely Villarreal BILL COLLECTOR and see if she can followup with her in 1 wk - have given the patient info on surgery. Patient is very leery regarding surgery due to the anesthesia and she does have cardiac issues - multiple stents Ordered: [id number] [facility] OFFICE OP VISIT [facility] Clinic Orders: Affirm DNA PanelProblem List/Past Medical History Ongoing Arthritis Hyperlipidemia Hypertension Historical No qualifying dataProcedure/Surgical History breast biopsy left, cataract, fractured right leg pins placed and removed, heart stents x 5.Medications aspirin 325 mg oral tablet, 325 mg, 1 tabs, Oral, Daily calcium (as carbonate) 600 mg oral tablet, 1200 mg, 2 tabs, Oral, BID carvedilol 6.25 mg oral tablet, 6.25 mg, 1 tabs, Oral, BID digoxin, Daily Fish Oil 1000 mg oral capsule, 1000 mg, 1 caps, Oral, BID lisinopril-hydrochlorothia zide 10mg-12.5mg oral tablet, 1 tabs, Oral, Daily nortriptyline, Oral Multivitamins with Folic Acid 1 mg and Docusate oral tablet, 1 tabs, Oral, Daily red yeast rice, 1200 mg, Oral, Daily Tumeric Vitamin B1, Daily Vitamin B12 Vitamin D3 2000 intl units oral capsule, 2000 International_unit, 1 caps, Oral, DailyAllergies ibuprofen (Hives)Social History Alcohol Never Nutrition/Health Caffeine intake amount: 1 cup of coffee-most of time decaf, occl pepsi. Sexual Sexually active: No. History of sexual abuse: No. Substance Abuse Denies All Tobacco Never smokerFamily History CAD - Coronary artery disease: Mother and Father. Skin cancer: Mother.Electronically signed by Justin Lincoln DO 12/22/16 17:35 EDT Normal [facility] Vital Signs Date Time Vital Sign Value Performing Clinician Facility 02-26-2023 13:03-0500 Body height 157.5 cm Mickey James FREIGHT SERVICE INSPECTOR-[employer] Work Phone: [facility] 02-26-2023 13:03-0500 Body mass index (BMI) [Ratio] 33.11 kg/m2 Mickey James FREIGHT SERVICE INSPECTOR-LAST IRONER Work Phone: [facility] 02-26-2023 13:03-0500 Body weight 82.1 kg Mickey James FREIGHT SERVICE INSPECTOR-LAST IRONER Work Phone: [facility] 02-26-2023 13:03-0500 Diastolic blood pressure 74 mm[Hg] Mickey James FREIGHT SERVICE INSPECTOR-LAST IRONER Work Phone: [facility] 02-26-2023 13:03-0500 Heart rate 60 /min Mickeycerscencio James FREIGHT SERVICE INSPECTOR-LAST IRONER Work Phone: [facility] 02-26-2023 13:03-0500 Systolic blood pressure 138 mm[Hg] Mickey James FREIGHT SERVICE INSPECTOR-LAST IRONER Work Phone: [facility] 12-13-2022 10:03-0400 Body temperature 97.11 [degF] Shweta Sol MD Work Phone: [facility] 12-13-2022 10:03-0400 Diastolic blood pressure 65 mm[Hg] Shweta Sol MD Work Phone: [facility] 12-13-2022 10:03-0400 Heart rate 60 /min Shweta Sol MD Work Phone: [facility] 12-13-2022 10:03-0400 Systolic blood pressure 165 mm[Hg] Shweta Sol MD Work Phone: [facility] 11-29-2022 14:52-0400 Body height 157.48 cm Los M Hoy Work Phone: [facility] 250 DO Work Phone: 11-29-2022 14:52-0400 Body mass index (BMI) [Ratio] Medical Reason Not Done Los M Hoy Work Phone: [facility] 250 DO Work Phone: 11-29-2022 14:52-0400 Body temperature 97.7 [degF] Los M Hoy Work Phone: [facility] 250 DO Work Phone: 11-29-2022 14:52-0400 Diastolic blood pressure 84 mm[Hg] Los M Hoy Work Phone: [facility] 250 DO Work Phone: 11-29-2022 14:52-0400 Heart rate 66 /min Los M Hoy Work Phone: [facility] 250 DO Work Phone: 11-29-2022 14:52-0400 Systolic blood pressure 130 mm[Hg] Los M Hoy Work Phone: [facility] DO Work Phone: 11-24-2022 16:00-0400 Body temperature 97.8 [degF] MD Los Chaudhary Work Phone: [facility] 11-24-2022 16:00-0400 Diastolic blood pressure 73 mm[Hg] MD Los Chaudhary Work Phone: [facility] 11-24-2022 16:00-0400 Heart rate 60 /min MD Los Chaudhary Work Phone: [facility] 11-24-2022 16:00-0400 Respiratory rate 16 /min MD Los Chaudhary Work Phone: [facility] 11-24-2022 16:00-0400 SaO2% (BldA) [Mass fraction] 99 % MD Los Chaudhary Work Phone: [facility] 11-24-2022 16:00-0400 Systolic blood pressure 142 mm[Hg] MD Los Chaudhary Work Phone: [facility] 11-24-2022 06:44-0400 Body weight 88.4 kg MD Los Chaudhary Work Phone: [facility] 11-22-2022 11:41-0400 Inhaled oxygen flow rate 6 L/min MD Los Chaudhary Work Phone: [facility] 11-22-2022 10:22-0400 Body height 157.48 cm MD Los Chaudhary Work Phone: [facility] 11-22-2022 10:22-0400 Body mass index (BMI) [Ratio] 36.5 kg/m2 MD Los Chaudhary Work Phone: [facility] 11-17-2022 21:59-0400 Diastolic blood pressure 77 mm[Hg] MD Los Chaudhary Work Phone: [facility] 11-17-2022 21:59-0400 Heart rate 67 /min MD Los Chaudhary Work Phone: [facility] 11-17-2022 21:59-0400 Systolic blood pressure 190 mm[Hg] MD Los Chaudhary Work Phone: [facility] 11-17-2022 21:18-0400 Body temperature 97.7 [degF] MD Los Chaudhary Work Phone: [facility] 11-17-2022 21:18-0400 Respiratory rate 16 /min MD Los Chaudhary Work Phone: [facility] 11-17-2022 21:18-0400 SaO2% (BldA) [Mass fraction] 98 % MD Los Chaudhary Work Phone: [facility] 11-17-2022 18:03-0400 Body height 157.48 cm Los Hoy Work Phone: [facility] 11-17-2022 18:03-0400 Body weight 81.64 kg Los Hoy Work Phone: [facility] 10-30-2022 11:29-0400 Body height 157.48 cm Los M Hoy Work Phone: [facility] 600 DO Work Phone: 10-30-2022 11:29-0400 Body mass index (BMI) [Ratio] 34.57 kg/m2 Los M Hoy Work Phone: [facility] 600 DO Work Phone: 10-30-2022 11:29-0400 Body surface area Derived from formula 1.87 m2 Los M Hoy Work Phone: [facility] 600 DO Work Phone: 10-30-2022 11:29-0400 Body weight 85.73 kg Los M Hoy Work Phone: [facility] 600 DO Work Phone: 10-30-2022 11:29-0400 Diastolic blood pressure 68 mm[Hg] Los M Hoy Work Phone: [facility] 600 DO Work Phone: 10-30-2022 11:29-0400 Heart rate 60 /min Los M Hoy Work Phone: [facility] 600 DO Work Phone: 10-30-2022 11:29-0400 Systolic blood pressure 170 mm[Hg] Los M Hoy Work Phone: [facility] 600 DO Work Phone: 09-25-2022 18:30-0400 Diastolic blood pressure 82 mm[Hg] HARPREET Tidwell Work Phone: [facility] 09-25-2022 18:30-0400 Heart rate 57 /min BILL COLLECTOR-C Summer Tidwell Work Phone: [facility] 09-25-2022 18:30-0400 Respiratory rate 17 /min BILL COLLECTOR-C Summer Tidwell Work Phone: [facility] 09-25-2022 18:30-0400 SaO2% (BldA) [Mass fraction] 99 % BILL COLLECTOR-C Summer Tidwell Work Phone: [facility] 09-25-2022 18:30-0400 Systolic blood pressure 132 mm[Hg] BILL COLLECTOR-C Summer Tidwell Work Phone: [facility] 09-25-2022 13:00-0400 Body temperature 98 [degF] BILL COLLECTOR-C Summer Tidwell Work Phone: [facility] 09-25-2022 08:58-0400 Body height 157.48 cm BILL COLLECTOR-C Summer Tidwell Work Phone: [facility] 09-25-2022 08:58-0400 Body weight 84 kg BILL COLLECTOR-C Summer Tidwell Work Phone: [facility] 09-21-2022 14:11-0400 Body height 157.48 cm Los Roger Hoy Work Phone: [facility] 250 DO Work Phone: 09-21-2022 14:11-0400 Body mass index (BMI) [Ratio] 34.02 kg/m2 Los M Hoy Work Phone: [facility] 250 DO Work Phone: 09-21-2022 14:11-0400 Body surface area Derived from formula 1.85 m2 Los M Hoy Work Phone: [facility] 250 DO Work Phone: 09-21-2022 14:11-0400 Body weight 84.37 kg Los M Hoy Work Phone: [facility] 250 DO Work Phone: 09-21-2022 14:11-0400 Diastolic blood pressure 68 mm[Hg] Los M Hoy Work Phone: [facility] 250 DO Work Phone: 09-21-2022 14:11-0400 Heart rate 56 /min Los M Hoy Work Phone: [facility] 250 DO Work Phone: 09-21-2022 14:11-0400 Systolic blood pressure 146 mm[Hg] Los M Hoy Work Phone: [facility] 250 DO Work Phone: 09-01-2022 14:07-0400 Body height 157.48 cm Los M Hoy Work Phone: [facility] 250 DO Work Phone: 09-01-2022 14:07-0400 Body mass index (BMI) [Ratio] 32.74 kg/m2 Los M Hoy Work Phone: [facility] 250 DO Work Phone: 09-01-2022 14:07-0400 Body surface area Derived from formula 1.82 m2 Los M Hoy Work Phone: [facility] 250 DO Work Phone: 09-01-2022 14:07-0400 Body weight 81.19 kg Los M Hoy Work Phone: [facility] 250 DO Work Phone: 09-01-2022 14:07-0400 Diastolic blood pressure 60 mm[Hg] Los M Hoy Work Phone: [facility] 250 DO Work Phone: 09-01-2022 14:07-0400 Heart rate 54 /min Los M Hoy Work Phone: [facility] 250 DO Work Phone: 09-01-2022 14:07-0400 Systolic blood pressure 150 mm[Hg] Los Roger Hoy Work Phone: [facility] 250 DO Work Phone: 08-02-2022 13:03-0400 Body height 157.48 cm Los Roger Hoy Work Phone: [facility] DO Work Phone: 08-02-2022 13:03-0400 Body mass index (BMI) [Ratio] 33.47 kg/m2 Los Roger Hoy Work Phone: [facility] 250 DO Work Phone: 08-02-2022 13:03-0400 Body surface area Derived from formula 1.84 m2 Los Roger Hoy Work Phone: [facility] 250 DO Work Phone: 08-02-2022 13:03-0400 Body weight 83.01 kg Los Roger Hoy Work Phone: [facility] 250 DO Work Phone: 08-02-2022 13:03-0400 Diastolic blood pressure 58 mm[Hg] Los Roger Hoy Work Phone: [facility] 250 DO Work Phone: 08-02-2022 13:03-0400 Heart rate 56 /min Los Roger Hoy Work Phone: [facility] 250 DO Work Phone: 08-02-2022 13:03-0400 Systolic blood pressure 128 mm[Hg] Los Roger Hoy Work Phone: [facility] 250 DO Work Phone: 07-05-2022 09:29-0400 Body height 157.48 cm Los M Hoy Work Phone: [facility] 250 DO Work Phone: 07-05-2022 09:29-0400 Body mass index (BMI) [Ratio] 32.19 kg/m2 Los M Hoy Work Phone: [facility] 250 DO Work Phone: 07-05-2022 09:29-0400 Body surface area Derived from formula 1.81 m2 Los M Hoy Work Phone: [facility] 250 DO Work Phone: 07-05-2022 09:29-0400 Body weight 79.83 kg Los M Hoy Work Phone: [facility] DO Work Phone: 07-05-2022 09:29-0400 Diastolic blood pressure 60 mm[Hg] Los M Hoy Work Phone: [facility] 250 DO Work Phone: 07-05-2022 09:29-0400 Heart rate 61 /min Los M Hoy Work Phone: [facility] 250 DO Work Phone: 07-05-2022 09:29-0400 Systolic blood pressure 142 mm[Hg] Los M Hoy Work Phone: [facility] 250 DO Work Phone: 02-07-2022 10:11-0400 Body height 157.48 cm Summer S Yaw Work Phone: [facility] 250 DO Work Phone: 02-07-2022 10:11-0400 Body mass index (BMI) [Ratio] 33.84 kg/m2 Summer S Yaw Work Phone: [facility] 250 DO Work Phone: 02-07-2022 10:11-0400 Body surface area Derived from formula 1.85 m2 Summer S Yaw Work Phone: [facility] 250 DO Work Phone: 02-07-2022 10:11-0400 Body weight 83.92 kg Summer S Yaw Work Phone: [facility] 250 DO Work Phone: 02-07-2022 10:11-0400 Diastolic blood pressure 50 mm[Hg] Summer S Yaw Work Phone: [facility] 250 DO Work Phone: 02-07-2022 10:11-0400 Heart rate 62 /min Summer S Yaw Work Phone: [facility] 250 DO Work Phone: 02-07-2022 10:11-0400 Systolic blood pressure 104 mm[Hg] Summer S Yaw Work Phone: [facility] 250 DO Work Phone: 01-10-2022 20:30-0400 Diastolic blood pressure 63 mm[Hg] BILL COLLECTOR-C Summer Yaw Work Phone: [facility] 01-10-2022 20:30-0400 Heart rate 69 /min BILL COLLECTOR-C Summer Yaw Work Phone: [facility] 01-10-2022 20:30-0400 Respiratory rate 20 /min BILL COLLECTOR-C Summer Yaw Work Phone: [facility] 01-10-2022 20:30-0400 SaO2% (BldA) [Mass fraction] 97 % BILL COLLECTOR-C Summer Yaw Work Phone: [facility] 01-10-2022 20:30-0400 Systolic blood pressure 140 mm[Hg] BILL COLLECTOR-C Summer Yaw Work Phone: [facility] 01-10-2022 14:51-0400 Body height 157.48 cm BILL COLLECTOR-C Summer Ayw Work Phone: [facility] 01-10-2022 14:51-0400 Body temperature 97.7 [degF] BILL COLLECTOR-C Summer Yaw Work Phone: [facility] 01-10-2022 14:51-0400 Body weight 78.75 kg BILL COLLECTOR-C Summer Yaw Work Phone: [facility] 11-28-2021 08:51-0400 Diastolic blood pressure 60 mm[Hg] Summer S Yaw Work Phone: [facility] 250 DO Work Phone: 11-28-2021 08:51-0400 Systolic blood pressure 152 mm[Hg] Summer S Yaw Work Phone: [facility] 250 DO Work Phone: 11-28-2021 08:22-0400 Body height 157.48 cm Summer S Yaw Work Phone: [facility] 250 DO Work Phone: 11-28-2021 08:22-0400 Body mass index (BMI) [Ratio] 31.64 kg/m2 Summer S Yaw Work Phone: [facility] 250 DO Work Phone: 11-28-2021 08:22-0400 Body surface area Derived from formula 1.8 m2 Summer S Yaw Work Phone: [facility] 250 DO Work Phone: 11-28-2021 08:22-0400 Body weight 78.47 kg Summer S Yaw Work Phone: [facility] 250 DO Work Phone: 11-28-2021 08:22-0400 Diastolic blood pressure 78 mm[Hg] Summer S Yaw Work Phone: [facility] 250 DO Work Phone: 11-28-2021 08:22-0400 Heart rate 72 /min Summer S Yaw Work Phone: [facility] 250 DO Work Phone: 11-28-2021 08:22-0400 Systolic blood pressure 152 mm[Hg] Summer S Yaw Work Phone: [facility] 250 DO Work Phone: 10-29-2021 12:14-0400 Diastolic blood pressure 68 mm[Hg] BILL COLLECTOR-C Summer Yaw Work Phone: [facility] 10-29-2021 12:14-0400 Heart rate 66 /min BILL COLLECTOR-C Summer Yaw Work Phone: [facility] 10-29-2021 12:14-0400 Respiratory rate 18 /min BILL COLLECTOR-C Summer Yaw Work Phone: [facility] 10-29-2021 12:14-0400 SaO2% (BldA) [Mass fraction] 96 % BILL COLLECTOR-C Summer Yaw Work Phone: [facility] 10-29-2021 12:14-0400 Systolic blood pressure 134 mm[Hg] BILL COLLECTOR-C Summer Yaw Work Phone: [facility] 10-29-2021 03:21-0400 Body temperature 98 [degF] BILL COLLECTOR-C Summer Yaw Work Phone: [facility] 10-28-2021 13:27-0400 0 1 Summer S Yaw Work Phone: [facility] 250 DO Work Phone: Comment on above: [id number] 10-28-2021 08:00-0400 Body height 157.48 cm BILL COLLECTOR-C Summer Yaw Work Phone: [facility] 10-28-2021 08:00-0400 Body weight 124.2 kg BILL COLLECTOR-C Summer Yaw Work Phone: [facility] 10-28-2021 05:55-0400 Diastolic blood pressure 65 mm[Hg] BILL COLLECTOR-C Summer Yaw Work Phone: [facility] 10-28-2021 05:55-0400 Heart rate 61 /min BILL COLLECTOR-C Summer Yaw Work Phone: [facility] 10-28-2021 05:55-0400 Respiratory rate 18 /min BILL COLLECTOR-C Summer Yaw Work Phone: [facility] 10-28-2021 05:55-0400 SaO2% (BldA) [Mass fraction] 96 % BILL COLLECTOR-C Summer Yaw Work Phone: [facility] 10-28-2021 05:55-0400 Systolic blood pressure 148 mm[Hg] BILL COLLECTOR-C Summer Yaw Work Phone: [facility] 10-28-2021 00:20-0400 Body height 157.48 cm BILL COLLECTOR-C Summerbridget Garibaymer Work Phone: [facility] 10-28-2021 00:20-0400 Body temperature 98 [degF] BILL COLLECTOR-C Summer Yaw Work Phone: [facility] 10-28-2021 00:20-0400 Body weight 124.73 kg BILL COLLECTOR-C Summer Yaw Work Phone: [facility] 10-25-2021 14:50-0400 Diastolic blood pressure 72 mm[Hg] BILL COLLECTOR-C Summer Yaw Work Phone: [facility] 10-25-2021 14:50-0400 Heart rate 60 /min BILL COLLECTOR-C Summer Yaw Work Phone: [facility] 10-25-2021 14:50-0400 Respiratory rate 18 /min BILL COLLECTOR-C Summer Yaw Work Phone: [facility] 10-25-2021 14:50-0400 SaO2% (BldA) [Mass fraction] 95 % BILL COLLECTOR-C Summer Yaw Work Phone: [facility] 10-25-2021 14:50-0400 Systolic blood pressure 168 mm[Hg] BILL COLLECTOR-C Summer Yaw Work Phone: [facility] 10-21-2021 15:19-0400 Diastolic blood pressure 87 mm[Hg] BILL COLLECTOR-C Summer Yaw Work Phone: [facility] 10-21-2021 15:19-0400 Heart rate 60 /min BILL COLLECTOR-C Summer Yaw Work Phone: [facility] 10-21-2021 15:19-0400 Respiratory rate 18 /min BILL COLLECTOR-C Summer Yaw Work Phone: [facility] 10-21-2021 15:19-0400 SaO2% (BldA) [Mass fraction] 98 % BILL COLLECTOR-C Summer Yaw Work Phone: [facility] 10-21-2021 15:19-0400 Systolic blood pressure 194 mm[Hg] BILL COLLECTOR-C Summerbridget Garibaymer Work Phone: [facility] 10-21-2021 09:09-0400 Body height 157.48 cm BILL COLLECTOR-C Summerbridget Garibaymer Work Phone: [facility] 10-21-2021 09:09-0400 Body mass index (BMI) [Ratio] 34.4 kg/m2 BILL COLLECTOR-C Summer Yaw Work Phone: [facility] 10-21-2021 09:09-0400 Body weight 85.3 kg BILL COLLECTOR-C Summer Yaw Work Phone: [facility] 10-21-2021 09:08-0400 Body temperature 97.1 [degF] BILL COLLECTOR-C Summer Yaw Work Phone: [facility] 09-21-2021 14:43-0400 Body height 157.48 cm Summer Garibaymer Work Phone: [facility] 250 DO Work Phone: 09-21-2021 14:43-0400 Body mass index (BMI) [Ratio] 33.84 kg/m2 Summer S Yaw Work Phone: [facility] 250 DO Work Phone: 09-21-2021 14:43-0400 Body surface area Derived from formula 1.85 m2 Summer S Yaw Work Phone: [facility] 250 DO Work Phone: 09-21-2021 14:43-0400 Body weight 83.92 kg Summer S Yaw Work Phone: [facility] 250 DO Work Phone: 09-21-2021 14:43-0400 Diastolic blood pressure 62 mm[Hg] Summer S Yaw Work Phone: [facility] 250 DO Work Phone: 09-21-2021 14:43-0400 Heart rate 66 /min Summer S Yaw Work Phone: [facility] 250 DO Work Phone: 09-21-2021 14:43-0400 Systolic blood pressure 138 mm[Hg] Summer S Yaw Work Phone: [facility] 250 DO Work Phone: 04-15-2021 13:39-0500 Body height 157.48 cm Summer S Yaw Work Phone: [facility] 250 DO Work Phone: 04-15-2021 13:39-0500 Body mass index (BMI) [Ratio] 32.74 kg/m2 Summer S Yaw Work Phone: [facility] 250 DO Work Phone: 04-15-2021 13:39-0500 Body surface area Derived from formula 1.82 m2 Summer S Yaw Work Phone: [facility] 250 DO Work Phone: 04-15-2021 13:39-0500 Body weight 81.19 kg Summer Al Yaw Work Phone: [facility] 250 DO Work Phone: 04-15-2021 13:39-0500 Diastolic blood pressure 69 mm[Hg] Summer Al Yaw Work Phone: [facility] 250 DO Work Phone: 04-15-2021 13:39-0500 Heart rate 73 /min Summer S Yaw Work Phone: [facility] 250 DO Work Phone: 04-15-2021 13:39-0500 Systolic blood pressure 129 mm[Hg] Summer Al Yaw Work Phone: [facility] 250 DO Work Phone: Encounters Encounter Date Encounter Type Care Provider Facility Start: 03-30-2023 End: 03-31-2023 ambulatory SELF REFERRAL Facility[facility] Start: 03-30-2023 End: 03-30-2023 Patient encounter procedure SELF REFERRAL [facility] Start: 03-29-2023 End: 03-29-2023 ambulatory SHWETA SOL Facility:[facility] Start: 03-29-2023 End: 03-29-2023 ambulatory SHWETA SOL Facility:[facility] Start: 03-29-2023 Encounter for other preprocedural examination SHWETA SOL [facility] Start: 03-21-2023 Telephone encounter Shweta argueta MD Work Phone: Plastic Surgery Comment on above: General Questions Start: 02-26-2023 End: 02-26-2023 ambulatory MICKEY JAMES [facility] Amb[facility] Start: 02-26-2023 End: 02-26-2023 Office outpatient visit 15 minutes Mickey James FREIGHT SERVICE INSPECTOR-LAST IRONER Work Phone: [facility] Comment on above: Arteriosclerosis of coronary artery (Primary Dx); Paroxysmal atrial fibrillation (CMS/HCC); senior care current use of anticoagulant therapy; Pacemaker; Essential hypertension; Statin intolerance; High risk medication use; BMI 34.0-34.9,adult Start: 02-19-2023 End: 02-19-2023 ambulatory Akhil Philip Chelseabentleyadore Facility:[facility] Start: 02-19-2023 End: 02-19-2023 ambulatory MD Los Chaudhary Work Phone: [facility] Work Phone: Start: 02-19-2023 End: 02-19-2023 Patient encounter procedure MD Los Chaudhary Work Phone: [facility]-Pacemaker Check Start: 01-01-2023 Telephone encounter Los Chaudhary Work Phone: [facility] 250 DO Work Phone: Start: 12-29-2022 Chart Update Los Chaudhary Work Phone: [facility] 250 DO Work Phone: Start: 12-14-2022 End: 12-14-2022 ambulatory Los Chaudhary Facility:[facility] Start: 12-14-2022 End: 12-14-2022 ambulatory MD Los Chaudhary Work Phone: [facility] Work Phone: Start: 12-14-2022 End: 12-14-2022 Patient encounter procedure MD Los Chaudhary Work Phone: [facility]-XRay [place] Work Phone: Start: 12-13-2022 End: 12-14-2022 ambulatory LOS CHAUDHARY Facility:[facility] Start: 12-13-2022 End: 12-13-2022 Patient encounter procedure Shweta Sol MD Work Phone: Plastic Surgery Comment on above: Alvarado's palsy (Primar y Dx) Start: 12-04-2022 Patient encounter procedure Do meccagovind Duran Deidre Work Phone: [facility] 600 DO Work Phone: Start: 11-29-2022 Postop follow up vis it related to original px Los Roger Willnhi Work Phone: [facility] 250 DO Work Phone: Start: 11-29-[address] Akhil Olivarez II Facility: Start: 11-23-[address] Los Chaudhary Facility:[id number] Start: 11-23-[address] Los Chaudhary Facility:[id number] Start: 11-22-[address] Akhil Olivarez II Facility:[id number] Start: 11-22-2022 SURGNON, Provider: Akhil Olivarez, Status: Pen, Time: 10:00 AM Los Chaudhary Work Phone: [facility] 250 DO Work Phone: Start: 11-21-[address] Akhil Michel Facility:90 Start: 11-21-[address] Los Chaudhary Facility:[id number] Start: 11-20-2022 Telephone encounter Los Chaudhary Work Phone: [facility] 250 DO Work Phone: Start: 11-20-[address] Los Chaudhary Facility:[id number] Start: 11-19-2022 End: 11-24-2022 Evaluation and management of inpatient Jamie Hathaway Facility:[facility] Start: 11-19-2022 End: 11-24-2022 Evaluation and management of inpatient MD Los Chaudhary Work Phone: [facility] [place] [facility] Work Phone: Start: 11-19-[address] Los Chaudhary Facility:[id number] Start: 11-18-[address] Los Chaudhary Facility:[id number] Start: 11-17-2022 Evaluation and manag ement of inpatient MD Los Chaudhary Work Phone: [facility] [place] [facility] Work Phone: Start: 11-17-2022 observation encounter MD Aviva Chaudhary Work Phone: [facility] Work Phone: Start: 11-09-2022 Message Los Chaudhary Work Phone: [facility] 600 DO Work Phone: Start: 10-30-[address] [facility] Start: 10-08-2022 AUDIT Los Chaudhary Work Phone: [facility] 250 DO Work Phone: Start: 09-25-2022 End: 09-25-[address] Akhil Michel Facility:[id number] Start: 09-25-2022 End: 09-25-2022 Admission to same day surgery center BILL COLLECTOR-C Summer Tidwell Work Phone: [facility]-Photo Booth Operator Work Phone: Start: 09-25-2022 End: 09-25-2022 ambulatory BILL COLLECTOR-C Summer Breonna Yaw Work Phone: [facility] Work Phone: Start: 09-22-2022 Chart Update Los Chaudhary Work Phone: [facility] DO Work Phone: Start: 09-22-2022 End: 09-22-2022 ambulatory Pearl Michel Facility:[facility] Start: 09-22-2022 End: 09-22-2022 ambulatory BILL COLLECTOR-C Summer Breonna Yaw Work Phone: [facility] Work Phone: Start: 09-22-2022 End: 09-22-2022 Patient encounter procedure BILL COLLECTOR-C Summer Yaw Work Phone: [facility] Work Phone: Start: 09-21-2022 Office outpatient vi sit 25 minutes Los M Hoy Work Phone: [facility] 250 DO Work Phone: Start: 09-21-[address] Akhil Olivarez II Facility: Start: 09-14-2022 ambulatory Sparkle Tran [id number] Start: 09-01-2022 Office outpatient vi sit 25 minutes Los M Hoy Work Phone: [facility] 250 DO Work Phone: Start: 09-01-[address] Akhil Olivarez II Facility: Start: 08-07-2022 End: 09-06-2022 ambulatory SHAIKH Omer WHITE Facility:[facility] Start: 08-02-2022 Office outpatient vi sit 15 minutes Los M Hoy Work Phone: [facility] 250 DO Work Phone: Start: 08-02-2022 ambulatory Ms. Mickey James Facility: Start: 08-01-2022 End: 08-02-2022 ambulatory MICKEY ALAMOBarbieJAMES Facility:[facility] Start: 07-18-2022 End: 07-18-2022 ambulatory Elizabeth Zimmerman Facility:[facility] Start: 07-18-2022 End: 07-18-2022 ambulatory BILL COLLECTOR-C Summer Tidwell Work Phone: [facility] Work Phone: Start: 07-18-2022 End: 07-18-2022 Discharged Recurring BILL COLLECTOR-C Summer Tidwell Work Phone: [facility]-Physical Therapy [address] Start: 07-10-2022 End: 08-04-[address] LOS CHAUDHARY . Facility:[facility] Start: 07-05-2022 ambulatory Ms. Mickey James Facility: Start: 07-05-2022 Office outpatient vi sit 25 minutes Los Chaudhary Work Phone: [facility] 250 DO Work Phone: Start: 06-28-2022 End: 06-28-[address] LOS CHAUDHARY . Facility:H1 Start: 06-13-2022 Chart Update Summer Garibayme r Work Phone: [facility] 250 DO Work Phone: Start: 06-13-2022 Registered Recurring BILL COLLECTOR-C Cleo Calvillo Work Phone: [facility]-Physical Therapy [place] Start: 06-13-2022 End: 06-13-2022 ambulatory Summer Tidwell Facility:[facility] Start: 06-13-2022 End: 06-13-2022 ambulatory BILL COLLECTOR-C Summer Tidwell Work Phone: [facility] Work Phone: Start: 06-13-2022 End: 06-13-2022 Patient encounter procedure BILL COLLECTOR-Abimbola Tidwell Work Phone: [facility]-Respiratory Therapy Work Phone: Start: 06-07-2022 End: 07-07-2022 ambulatory SHAIKH Omer WHITE Facility:H1 Start: 05-24-2022 Patient encounter procedure Freddy Tidwell Work Phone: [facility] 250 DO Work Phone: Start: 05-10-2022 End: 06-07-2022 ambulatory SHAIKH Omer WHITE Facility:H1 Start: 04-28-2022 Rx Renewal Summer Garibayme r Work Phone: [facility] 250 DO Work Phone: Start: 04-10-2022 End: 05-10-2022 ambulatory SHAIKH Omer WHITE Facility:H1 Start: 03-23-2022 End: 03-23-2022 Patient encounter procedure Los Chaudhary [facility] Start: 03-10-2022 End: 03-10-[address] LOS CHAUDHARY . Facility:H1 Start: 03-09-2022 End: 04-09-2022 ambulatory SHAIKH Omer WHITE Facility:H1 Start: 02-07-2022 Office outpatient vi sit 25 minutes Summer Tidwell Work Phone: [facility] 250 DO Work Phone: Start: 02-07-[address] [facility] Facility: Start: 02-07-2022 End: 03-08-2022 ambulatory SHAIKH Omer WHITE Facility:H1 Start: 01-10-2022 End: 01-10-2022 Emergency department patient visit BILL COLLECTOR-C Summer Tidwell Work Phone: [facility]-Emergency Room Start: 01-08-2022 End: 02-06-2022 ambulatory SUMMER TIDWELL Facility:H1 Start: 01-05-2022 End: 01-05-2022 ambulatory BILL COLLECTOR-C Summer Tidwell Work Phone: [facility] Work Phone: Start: 01-05-2022 End: 01-05-2022 Patient encounter procedure BILL COLLECTOR-C Summer Tidwell Work Phone: [facility]-Lab [place] Start: 01-04-2022 End: 01-04-2022 ambulatory BILL COLLECTOR-C Summer Tidwell Work Phone: [facility] Work Phone: Start: 01-04-2022 End: 01-04-2022 Patient encounter procedure BILL COLLECTOR-C Summer Tidwell Work Phone: [facility] [place] Start: 12-29-2021 End: 12-29-2021 ambulatory SUMMER TIDWELL Facility:H1 Start: 12-20-2021 End: 12-22-[address] LOS CHAUDHARY . Facility:H1 Start: 12-16-2021 Chart Update Summer Burden r Work Phone: [facility] 250 DO Work Phone: Start: 12-13-2021 End: 12-13-2021 Patient encounter procedure BILL COLLECTOR-C Summer Garibaymer Work Phone: [facility]-Respiratory Therapy Start: 12-08-2021 End: 01-07-2022 ambulatory SUMMER TIDWELL Facility:H1 Start: 11-28-2021 Office outpatient vi sit 25 minutes Summer Al Yaw Work Phone: [facility] 250 DO Work Phone: Start: 11-09-2021 AUDIT Summer Burden r Work Phone: [facility] 250 DO Work Phone: Start: 11-07-2021 End: 12-07-2021 ambulatory SUMMER TIDWELL Facility:H1 Start: 11-01-[address] LOS CHAUDHARY . Facili ty:H1 Start: 10-28-2021 End: 10-29-2021 Evaluation and management of inpatient BILL COLLECTOR-C Summer Tidwell Work Phone: [facility] [place] [facility] Start: 10-25-2021 End: 10-25-2021 Emergency department patient visit BILL COLLECTOR-C Summer Tidwell Work Phone: [facility]-Emergency Room Start: 10-21-2021 Patient encounter procedure Freddy Tidwell Work Phone: [facility] 250 DO Work Phone: Start: 10-21-2021 End: 10-21-2021 Emergency department patient visit BILL COLLECTOR-C Summer Garibaymer Work Phone: [facility]-Emergency Room Start: 10-20-2021 End: 10-20-2021 ambulatory SUMMER YAW Facility:H1 Start: 10-07-2021 End: 11-04-2021 ambulatory SHAIKH Omer WHITE Facility: Start: 09-28-2021 Patient encounter procedure Pa jaiden Tidwell Work Phone: [facility] 600 DO Work Phone: Start: 09-21-2021 Office outpatient vi sit 25 minutes Summer Al Yaw Work Phone: [facility] 250 DO Work Phone: Start: 06-30-2021 Chart Update Summer Garibayme r Work Phone: [facility] 600 DO Work Phone: Start: 04-22-2021 Patient encounter procedure Freddy Tidwell Work Phone: [facility] 250 DO Work Phone: Start: 04-15-2021 Office outpatient vi sit 25 minutes Summer S Yaw Work Phone: [facility] 250 DO Work Phone: Start: 03-07-2021 Rx Renewal Akhil avitia MD Work Phone: [facility] 250 DO Work Phone: Start: 03-01-2021 Rx Renewal Akhil avitia MD Work Phone: [facility] 600 DO Work Phone: Start: 12-22-2016 End: 12-23-2016 Ambulatory JUSTIN BROWN Facility:[facility] Procedures Date Procedure Procedure Detail Performing Clinician Start: 02-26-2023 ECG 12-LEAD MICKEY Tello Start: 02-26-2023 Ecg routine ecg w/le ast 12 lds w/i&r Mickey James FREIGHT SERVICE INSPECTOR-LAST IRONER Work Phone: Start: 01-23-2023 History of percutane ous transluminal coronary angioplasty H/O percutaneous transluminal coronary angioplasty Mickey James FREIGHT SERVICE INSPECTOR-LAST IRONER Work Phone: Start: 12-14-2022 Plain chest X-ray MD Gerber Work Phone: Start: 11-23-2022 Plain chest X-ray MD Gerber Work Phone: Start: 11-22-2022 Plain chest X-ray MD Gerber Work Phone: Start: 11-22-2022 Implantation of card iac pacemaker MD Los Chaudhary Work Phone: Start: 11-21-2022 [facility] Angio MD Dario Chaudhary Work Phone: Start: 11-20-2022 Duplex scan of lower limb veins MD Los Chaudhary Work Phone: Start: 11-17-2022 Plain chest X-ray MD Gerber Work Phone: Start: 09-25-2022 CL [facility] Angio BILL COLLECTOR-C Summer Yaw Work Phone: Start: 09-25-2022 CL Stent 1st Vessel CX COLBY BILL COLLECTOR-C Summer Yaw Work Phone: Start: 06-13-2022 Plain chest X-ray BILL COLLECTOR-C Summer Yaw Work Phone: Start: 01-10-2022 CT of head without contrast BILL COLLECTOR-C Summer Yaw Work Phone: Start: 12-13-2021 Plain chest X-ray BILL COLLECTOR-C Summer Yaw Work Phone: Start: 10-28-2021 CT angiography of head BILL COLLECTOR-C Summer Yaw Work Phone: Start: 10-28-2021 CT angiography of ne ck vessels BILL COLLECTOR-C Summer Yaw Work Phone: Start: 10-28-2021 Magnetic resonance angiography of head without contrast BILL COLLECTOR-C Summer Yaw Work Phone: Start: 10-25-2021 CT of head without contrast BILL COLLECTOR-C Summer Yaw Work Phone: Start: 10-21-2021 Plain chest X-ray BILL COLLECTOR-C Summer Yaw Work Phone: Start: 03-09-2016 Stereotactically wilma ded core needle biopsy of breast Los Chaudhary Comment on above: left Start: 04-09-2009 5 Stents Los hankins Angioplasty of blood vessel Summer Tidwell Work Phone: Extraction of cataract Kaell as Hoy H/O: surgery Status post eye surgery BILL COLLECTOR-C Summer Tidwell Work Phone: History of placement of stent for coronary artery disease History of heart artery stent BILL COLLECTOR-C Summer Tidwell Work Phone: History of placement of stent for coronary artery disease Status post insertion of drug eluting coronary artery stent Los Chaudhary Work Phone: L Hip Surgery Los Chaudhary Operation on fracture Summer Tidwell Work Phone: Operative procedure on hip Summer Tidwell Work Phone: R Broken leg Los Chaudhary SARS-CoV-2, Influenz a & RSV (PCR) BILL COLLECTOR-C Summer Tidwell Work Phone: Surgical procedure Summer Tidwell Work Phone: Comment on above: stent indications; Urine culture BILL COLLECTOR-C Summer spicer Work Phone: NEGATED: Highlighted row has not occurred! Total colonoscopy Summer Tidwell Work Phone: Plan of Treatment Date Care Activity Detail Author Start: 09-05-2023 End: 09-05-2023 Patient encounter procedure 09/05/2023 1:30 PM EDT Office Visit [facility] [address] [place] [id number] Akhil Olivarez MD [address] [place] [address] [facility] Start: 04-10-2023 FUV, Provider: Akhil Olivarez, Status: Pen, Time: 10:20 AM FUV, Provider: Akhil Olivarez, Status: Pen, Time: 10:20 AM [facility] 250 DO Work Phone: Start: 02-26-2023 FUV, Provider: Mickey Biggs, Status: Pen, Time: 1:00 PM FUV, Provider: Mickey Biggs, Status: Pen, Time: 1:00 PM [facility] 250 DO Work Phone: Start: 12-08-2022 Influenza vaccination Influenza Vaccine (#1) [facility] Start: 11-30-2022 [facility] Start: 11-29-2022 [facility] Start: 11-28-2022 [facility] Start: 11-27-2022 [facility] Start: 11-26-2022 [facility] Start: 11-25-2022 [facility] Start: 11-24-2022 [facility] Start: 11-22-2022 [facility] Start: 11-22-2022 Lipid panel [facility] Start: 11-21-2022 Lipid panel [facility] Start: 11-20-2022 Catheterization of left heart CL *Left Heart Cath (LHC) [facility] Start: 11-20-2022 Lipid panel [facility] Start: 11-19-2022 Fluoroscopy of Left Heart using Low Osmolar Contrast Fluoroscopy of Left Heart using Low Osmolar Contrast [facility] Start: 11-19-2022 Fluoroscopy of Multiple Coronary Arteries using Low Osmolar Contrast Fluoroscopy of Multiple Coronary Arteries using Low Osmolar Contrast [facility] Start: 11-19-2022 Insertion of Pacemaker Lead into Right Atrium, Percutaneous Approach Insertion of Pacemaker Lead into Right Atrium, Percutaneous Approach [facility] Start: 11-19-2022 Insertion of Pacemaker Lead into Right Ventricle, Percutaneous Approach Insertion of Pacemaker Lead into Right Ventricle, Percutaneous Approach [facility] Start: 11-19-2022 Insertion of Pacemaker, Dual Chamber into Chest Subcutaneous Tissue and Fascia, Open Approach Insertion of Pacemaker, Dual Chamber into Chest Subcutaneous Tissue and Fascia, Open Approach [facility] Start: 11-19-2022 Measurement of Cardiac Sampling and Pressure, Left Heart, Percutaneous Approach Measurement of Cardiac Sampling and Pressure, Left Heart, Percutaneous Approach [facility] Start: 11-19-2022 Lipid panel [facility] Start: 11-18-2022 Lipid panel [facility] Start: 11-18-2022 End: 11-18-2022 [facility] Start: 11-17-2022 End: 11-17-2022 [facility] Start: 11-17-2022 Hospital admission [facility] Start: 11-17-2022 Referral to secretary book keeper [facility] Start: 10-30-2022 FUV, Provider: Akhil Olivarez, Status: Pen, Time: 11:30 AM FUV, Provider: Akhil Olivarez, Status: Pen, Time: 11:30 AM -[facility] 250 DO Work Phone: Start: 10-29-[address] [facility] Start: 09-25-2022 [facility] Start: 09-25-2022 SURGNONUH, Provider: Akhil Michel, Status: Pen, Time: 10:00 AM SURGNONUH, Provider: Akhil Michel, Status: Pen, Time: 10:00 AM -[facility] 250 DO Work Phone: Start: 09-14-2022 STRESS NUC, Provider: RICHARD HHVI NUCLEAR 01,[id number], Status: Pen, Time: 8:00 AM STRESS NUC, Provider: RICHARD HHVI NUCLEAR 01,[id number], Status: Pen, Time: 8:00 AM -[facility] 250 DO Work Phone: Start: 09-01-2022 FUV, Provider: Akhil Olivarez, Status: Pen, Time: 2:00 PM FUV, Provider: Akhil Olivarez, Status: Pen, Time: 2:00 PM -[facility] 250 DO Work Phone: Start: 08-02-2022 FUV, Provider: Mickey Biggs, Status: Pen, Time: 1:00 PM FUV, Provider: Mickey Biggs, Status: Pen, Time: 1:00 PM [facility] 250 DO Work Phone: Start: 04-09-2022 Advance Directive Discussion Advance Directive Discussion [facility] Start: 04-09-2022 Depression Assessment Depression Assessment [facility] Start: 11-28-2021 FUV, Provider: Akhil Olivarez, Status: Pen, Time: 8:20 AM FUV, Provider: Akhil Olivarez, Status: Pen, Time: 8:20 AM [facility] 250 DO Work Phone: Start: 11-07-2021 [facility] Work Phone: Start: 11-06-2021 [facility] Work Phone: Start: 11-05-2021 [facility] Work Phone: Start: 11-04-2021 [facility] Work Phone: Start: 11-03-2021 [facility] Work Phone: Start: 11-02-2021 [facility] Work Phone: Start: 11-01-2021 [facility] Work Phone: Start: 10-31-2021 [facility] Work Phone: Start: 10-30-2021 [facility] Work Phone: Start: 10-29-2021 End: 10-29-2021 [facility] Start: 10-28-2021 Referral to neurologist [facility] Start: 10-28-2021 Vitamin B12 measurement [facility] Work Phone: Start: 10-28-2021 Vitamin D, 25-hydroxy measurement [facility] Work Phone: Start: 10-28-2021 Hospital admission [facility] Start: 10-28-2021 Physical therapy procedure [facility] Work Phone: Start: 10-28-2021 Referral to occupational therapist [facility] Work Phone: Start: 10-28-2021 [facility] Work Phone: Start: 09-28-2021 EVENT PILAR, Provider: IMAN VAZ INDEPENDENT LIVING SPECIALIST 1,[id number], Status: Pen, Time: 2:30 PM EVENT PILAR, Provider: IMAN VAZ INDEPENDENT LIVING SPECIALIST 1,[id number], Status: Pen, Time: 2:30 PM -[facility] 250 DO Work Phone: Start: 09-21-2021 FUV, Provider: Akhil Olivarez, Status: Pen, Time: 2:10 PM FUV, Provider: Akhil Olivarez, Status: Pen, Time: 2:10 PM [facility] 250 DO Work Phone: Start: 04-15-2021 FUV, Provider: Akhil Olivarez, Status: Pen, Time: 1:15 PM [facility] 600 DO Work Phone: Start: 04-19-2020 Diabetes Screening Diabetes Screening [facility] Start: 11-27-2019 Screening for osteoporosis Bone Density Scan [facility] Start: 12-09-2009 Urine microalbumin profile DTaP,Tdap,Td Vaccine (1 - Tdap) [facility] Start: 1999 Bone Density Screening Bone Density Screening [facility] Start: 1999 Pneumococcal Vaccine: 65+ (1 - PCV) Pneumococcal Vaccine: 65+ (1 - PCV) [facility] Start: 1999 Screening for osteoporosis Bone Density Screening [facility] Start: 1994 RSV Vaccine (1 - 1-dose 60+ series) RSV Vaccine (1 - 1-dose 60+ series) [facility] Start: 1984 Shingrix Vaccine (1 of 2) Shingrix Vaccine (1 of 2) [facility] Start: 1984 Zoster Vaccines (1 of 2) Zoster Vaccines (1 of 2) [facility] Start: 1956 DTaP/Tdap/Td Vaccines (1 - Tdap) DTaP/Tdap/Td Vaccines (1 - Tdap) [facility] Start: 1953 Urine microalbumin profile DTaP,Tdap,Td Vaccine (1 - Tdap) [facility] Start: 1952 Diabetes mellitus screening Diabetes Screening [facility] Start: 1934 Covid-19 Vaccine (#1) Covid-19 Vaccine (#1) [facility] Start: 1934 Creatinine measurement Creatinine Level [facility] Start: 1934 Lipid panel Lipid Panel [facility] Start: 1934 Medicare Annual Wellness Visit Medicare Annual Wellness Visit (AWV) [facility] Start: 1934 Potassium measurement Potassium Level [facility] Start: 1934 Thyroid stimulating hormone measurement TSH Level [facility] Bacteria identified in Urine by Culture [facility] ECG 12 lead (Clinic Performed) ECG 12 lead (Clinic Performed) ECG Routine Paroxysmal atrial fibrillation (CMS/HCC) High risk medication use 02/26/2023 1:22 PM EST [facility] Service Area Work Phone: Patient Education [facility] Work Phone: Patient referral [facility] Work Phone: Vitamin D, 25-hydrox y measurement [facility] Work Phone: [facility] Immunizations Immunization Date Immunization Notes Care Provider Boyd [facility] 12-08-2019 influenza, high dose seasonal, preservative-free Summer Tidwell Work Phone: [facility] 250 DO Work Phone: 12-08-2019 influenza virus vacc ine, unspecified formulation Shweta Sol MD Work Phone: [facility] 12-04-2019 influenza, high dose seasonal, preservative-free Mickey James FREIGHT SERVICE INSPECTOR-LAST IRONER Work Phone: [facility] Work Phone: 12-18-2018 influenza, high dose seasonal, preservative-free Summer S Yaw Work Phone: [facility] 250 DO Work Phone: 12-18-2018 pneumococcal polysaccharide vaccine, 23 valent Summer S Yaw Work Phone: [facility] 12-08-2018 influenza virus vacc ine, unspecified formulation Summer S Yaw Work Phone: [place] [address] DO Work Phone: 04-09-2018 pneumococcal conjuga te vaccine, 13 valent Mickey James FREIGHT SERVICE INSPECTOR-LAST IRONER Work Phone: [facility] Work Phone: 04-09-2018 pneumococcal polysaccharide vaccine, 23 valent Summer S Yaw Work Phone: [place] [address] DO Work Phone: 12-26-2017 influenza, high dose seasonal, preservative-free Summer S Yaw Work Phone: [place] [address] DO Work Phone: 12-26-2017 influenza, injectabl e, quadrivalent, preservative free Mickey James FREIGHT SERVICE INSPECTOR-LAST IRONER Work Phone: [facility] Work Phone: 01-03-2017 influenza, high dose seasonal, preservative-free Summer S Yaw Work Phone: [facility] 250 DO Work Phone: 01-03-2017 pneumococcal conjuga te vaccine, 13 valent Summer S Yaw Work Phone: [facility] 250 DO Work Phone: 12-26-2016 influenza virus vacc ine, unspecified formulation Summer S Yaw Work Phone: [facility] 12-26-2016 pneumococcal conjuga te vaccine, 13 valent Summer S Yaw Work Phone: [facility] 250 DO Work Phone: 01-11-2016 influenza, high dose seasonal, preservative-free Summer S Yaw Work Phone: [facility] 250 DO Work Phone: 02-12-2015 influenza, injectabl e, quadrivalent, preservative free Summer S Yaw Work Phone: [facility] 250 DO Work Phone: 01-07-2015 influenza virus vacc ine, unspecified formulation Summer S Yaw Work Phone: [facility] 250 DO Work Phone: 01-07-2014 influenza virus vacc ine, unspecified formulation Summer S Yaw Work Phone: [facility] 250 DO Work Phone: 02-25-2013 influenza, seasonal, injectable Summer S Yaw Work Phone: [facility] 250 DO Work Phone: 03-26-2009 novel influenza-H1N1 -09, preservative-free, injectable Summer S Yaw Work Phone: [facility] 250 DO Work Phone: 04-09-2007 pneumococcal polysaccharide vaccine, 23 valent Summer S Yaw Work Phone: [facility] 250 DO Work Phone: 02-02-2003 pneumococcal polysaccharide vaccine, 23 valent Summer S Yaw Work Phone: [facility] influenza virus vacc ine, unspecified formulation Summer S Yaw Work Phone: [facility] 250 DO Work Phone: Comment on above: [id number] Payers Date Payer Category Payer Self-pay [id number] 2022 Unknown [id number] 2016 Unknown 1999 Medicare 1960 Medicare [id number] 1959 Unknown [id number] 1934 Unknown [id number] 2.16.840.1.517287.3.579.2.593 1934 Unknown [id number] 2.16.840.1.869886.3.579.2.593 1934 Unknown [id number] 2.16.840.1.310905.3.579.2.593 1934 Unknown [id number] 2.16.840.1.968374.3.579.2.593 1934 Unknown [id number] 2.16.840.1.807385.3.579.2.593 1934 Unknown [id number] 2.16.840.1.098879.3.579.2.593 1934 Unknown [id number] 2.16.840.1.657794.3.579.2.593 1934 Unknown [id number] 2.16.840.1.337621.3.579.2.593 1934 Unknown [id number] 2.16.840.1.356149.3.579.2.593 1934 Unknown [id number] 2.16.840.1.948523.3.579.2.593 1934 Unknown [id number] 2.16.840.1.020741.3.579.2.593 1934 Unknown [id number] 2.16.840.1.353595.3.579.2.593 1934 Unknown [id number] 2.16.840.1.846244.3.579.2.593 1934 Unknown [id number] 2.16.840.1.763485.3.579.2.593 1934 Unknown [id number] 2.16.840.1.075135.3.579.2.593 1934 Unknown [id number] 2.16.840.1.986555.3.579.2.593 1934 Unknown [id number] 2.16.840.1.508753.3.579.2.593 1934 Unknown [id number] 2.16.840.1.257530.3.579.2.593 1934 Unknown [id number] 2.16840.1.256796.3.579.2.1068 1934 Unknown [id number] 2.16840.1.821798.3.579.2.356 1934 Unknown [id number] 2.840.1.636382.3.579.2.356 1934 Unknown [id number] 2.16840.1.149787.3.579.2.356 1934 Unknown [id number] 2.840.1.238977.3.579.2.356 1934 Unknown [id number] 2.16840.1.347755.3.579.2.356 1934 Unknown [id number] 2.16840.1.423849.3.579.2.356 1934 Unknown [id number] 2.16840.1.602837.3.579.2.356 1934 Unknown [id number] 2.16840.1.677218.3.579.2.356 1934 Unknown [id number] 2.840.1.871469.3.579.2.356 1934 Unknown [id number] 2.840.1.159534.3.579.2.356 1934 Unknown [id number] 2.840.1.082472.3.579.2.356 1934 Unknown [id number] 2.840.1.481644.3.579.2.356 1934 Unknown [id number] 2.840.1.194831.3.579.2.356 1934 Unknown [id number] 2.0.1.789284.3.579.2.356 1934 Unknown [id number] 2.0.1.268861.3.579.2.356 1934 Unknown [id number] 2.0.1.684797.3.579.2.356 1934 Unknown [id number] 2.0.1.700288.3.579.2.356 1934 Unknown [id number] 2.0.1.288312.3.579.2.1244 1934 Unknown [id number] 05.25.830.1.310752.3.579.2.727 Medicare Medicare Rehab-IP Part A [id number] Unknown [id number] 2.840.1.759018.3.579.2.531 Unknown [id number] 2.840.1.430547.3.579.2.531 Unknown [id number] 2.840.1.276858.3.579.2.531 Unknown [id number] 2.840.1.413372.3.579.2.531 Unknown [id number] 2.840.1.168299.3.579.2.531 Unknown [id number] 2.16.840.1.928738.3.579.2.531 Unknown [id number] 2.16.840.1.984388.3.579.2.531 Social History Date Type Detail Facility Start: 08-25-2022 End: 12-13-2022 No alcohol use No alcohol use [facility] DO Work Phone: Comment on above: Hot sandy occas.; Start: 10-28-2021 Tobacco smoking stat us NHIS Unknown if ever smoked [facility] Start: 1935 Sex Assigned At Female F [facility] Start: 09-18-2018 End: 10-29-2021 Tobacco smoking status NHIS Never smoked tobacco (finding) [facility] Start: 08-25-2022 End: 12-13-2022 [facility]igned At [facility] Start: 12-13-2012 End: 02-23-2023 Tobacco use and exposure Smokeless tobacco non-user [facility] Start: 12-13-2022 End: 03-21-2023 Alcohol intake Current non-drinker of alcohol (finding) [facility] National Score (1-100), lower number is lower risk 91 [facility] Start: 1935 Sex Assigned At Not on file [facility] Start: 02-26-2023 Alcohol intake Lifetime non-d nanci (finding) [facility] Work Phone: Start: 02-16-2023 End: 02-26-2023 Exposure to SARS-CoV-2 (event) Not sure [facility] Medical Equipment Procedure Code Equipment Code Equipment Origin al Text Equipment Identifier Dates Insertion, pacemaker Endocardial pacing lead [id number] FDA Start: 11-22-2022 Insertion, pacemaker Endocardial pacing lead [id number] [id number] FDA Start: 11-22-2022 Insertion, pacemaker Dual-chamber implantable pacemaker, rate-responsive ()[id number] FDA Start: 11-22-2022 BLADE HELICAL TF NA 100MM FDA Start: 03-15-2017 NAIL TFNA SHORT NAIL 10MM FDA Start: 03-15-2017 SCREW 5.0MM TI LOCKING 38MM FDA Start: 03-15-2017 BLADE HELICAL TF NA 100MM FDA Start: 03-15-2017 NAIL TFNA SHORT NAIL 10MM FDA Start: 03-15-2017 SCREW 5.0MM TI LOCKING 38MM FDA Start: 03-15-2017 BLADE HELICAL TF NA 100MM FDA Start: 03-15-2017 NAIL TFNA SHORT NAIL 10MM FDA Start: 03-15-2017 SCREW 5.0MM TI LOCKING 38MM FDA Start: 03-15-2017 BLADE HELICAL TF NA 100MM FDA Start: 03-15-2017 NAIL TFNA SHORT NAIL 10MM FDA Start: 03-15-2017 SCREW 5.0MM TI LOCKING 38MM FDA Start: 03-15-2017 BLADE HELICAL TF NA 100MM FDA Start: 03-15-2017 NAIL TFNA SHORT NAIL 10MM FDA Start: 03-15-2017 SCREW 5.0MM TI LOCKING 38MM FDA Start: 03-15-2017 BLADE HELICAL TF NA 100MM FDA Start: 03-15-2017 NAIL TFNA SHORT NAIL 10MM FDA Start: 03-15-2017 SCREW 5.0MM TI LOCKING 38MM FDA Start: 03-15-2017 BLADE HELICAL TF NA 100MM FDA Start: 03-15-2017 NAIL TFNA SHORT NAIL 10MM FDA Start: 03-15-2017 SCREW 5.0MM TI LOCKING 38MM FDA Start: 03-15-2017 BLADE HELICAL TF NA 100MM FDA Start: 03-15-2017 NAIL TFNA SHORT NAIL 10MM FDA Start: 03-15-2017 SCREW 5.0MM TI LOCKING 38MM FDA Start: 03-15-2017 BLADE HELICAL TF NA 100MM FDA Start: 03-15-2017 NAIL TFNA SHORT NAIL 10MM FDA Start: 03-15-2017 SCREW 5.0MM TI LOCKING 38MM FDA Start: 03-15-2017 BLADE HELICAL TF NA 100MM FDA Start: 03-15-2017 NAIL TFNA SHORT NAIL 10MM FDA Start: 03-15-2017 SCREW 5.0MM TI LOCKING 38MM FDA Start: 03-15-2017 BLADE HELICAL TF NA 100MM FDA Start: 03-15-2017 NAIL TFNA SHORT NAIL 10MM FDA Start: 03-15-2017 SCREW 5.0MM TI LOCKING 38MM FDA Start: 03-15-2017 CL STENT STANLEY FRONTIER 2.5 X 30 FDA Start: 09-25-2022 BLADE HELICAL TF NA 100MM FDA Start: 03-15-2017 NAIL TFNA SHORT NAIL 10MM FDA Start: 03-15-2017 SCREW 5.0MM TI LOCKING 38MM FDA Start: 03-15-2017 CL STENT STANLEY FRONTIER 2.5 X 30 FDA Start: 09-25-2022 BLADE HELICAL TF NA 100MM FDA Start: 03-15-2017 NAIL TFNA SHORT NAIL 10MM FDA Start: 03-15-2017 SCREW 5.0MM TI LOCKING 38MM FDA Start: 03-15-2017 CL STENT STANLEY FRONTIER 2.5 X 30 FDA Start: 09-25-2022 BLADE HELICAL TF NA 100MM FDA Start: 03-15-2017 NAIL TFNA SHORT NAIL 10MM FDA Start: 03-15-2017 SCREW 5.0MM TI LOCKING 38MM FDA Start: 03-15-2017 CL STENT STANLEY FRONTIER 2.5 X 30 FDA Start: 09-25-2022 Goals Date Patient Goal Desired Activity /State Functional Status Date Assessment Result Facility 11-24-2022 Functional status Patient is Pro gressing Toward Baseline [facility] Work Phone: 11-17-2022 Functional status Disability Sta tus Patient at Baseline [facility] Work Phone: 09-25-2022 Functional status Patient at Baseline [facility] Work Phone: 10-29-2021 Functional status Patient is Pro gressing Toward Baseline [facility] Work Phone: Mental Status Date Assessment Result Facility 11-24-2022 Cognitive function Cognitive Sta tus Patient at Baseline [facility] Work Phone: 09-25-2022 Cognitive function Cognitive Sta tus Patient at Baseline [facility] Work Phone: 10-29-2021 Cognitive function Cognitive Sta tus Patient at Baseline [facility] Work Phone: Clinical Notes 10-28-2021 to 03-29-2023 Telephone Encounter - Beatris Castañeda JOVANNI - 03/21/2023 11:56 AM ESTTelephone Encounter - Jerilyn Rosa - 03/21/2023 11:13 AM Liliana James APRN-JUAN CARLOS - 02/26/2023 1:00 PM ESTPatient Instructions Note Date & Type Note Facility 03-29-2023 Note HNO ID: [id number] Author: Shweta Sol MD Service: ? 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 This developed in October 2021. She had surgery on her lower eye lid, she has tried therapy and steroids with no improvement. She has difficulty eating and drinking, sleeping and even smelling due to the facial drooping. She is scheduled for surgery on 04/16/2023 Cardiac cath done on 09/25/2022 She is here for a follow up She mentioned that her condition is a constant pain and severely affects her ADLs HISTORIES PAST MEDICAL HISTORY Diagnosis Date A-fib (HCC) Cardiac pacemaker 11/22/2022 CKD (chronic kidney disease) Congestive heart failure (HCC) Coronary artery disease Hypertension Hypothyroidism MGUS (monoclonal gammopathy of unknown significance) Pulmonary HTN (HCC) Valvular heart disease No past surgical history on file. clopidogrel (PLAVIX) 75 mg tablet Take 75 mg by mouth once daily. isosorbide mononitrate ER (IMDUR) 60 mg 24 hr tablet TAKE 1 TABLET BY MOUTH ONCE DAILY DIRECTED. DOSE INCREASED levothyroxine (SYNTHROID) 50 mcg tablet Take 1 tablet by mouth every afternoon. pantoprazole DR (PROTONIX) 20 mg tablet torsemide (DEMADEX) 5 mg tablet Take 5 mg by mouth. amiodarone (PACERONE) 200 mg tablet Take 200 mg by mouth. amLODIPine (NORVASC) 5 mg tablet Take 5 mg by mouth once daily. warfarin (COUMADIN) 6 mg tablet Take 2.5 mg by mouth. AMITRIPTYLINE 25 mg tablet Take 25 mg by mouth daily at bedtime. DIGOXIN (DIGITEK ORAL) Take 0.125 mg by mouth. carvedilol (COREG) 6.25 mg tablet Take 1 tablet by mouth twice daily. lisinopril 5 mg tablet Take 10 mg by mouth once daily. Allergies: ALLERGIES Allergen Reactions Kmslynb-Enq-Xjo Red* Other: See Comments Cannot walk when she takes it Motrin [Ibuprofen] Unknown No family history on file. Social History Tobacco Use Smoking status: Never Smokeless tobacco: Never Substance Use Topics Alcohol use: No REVIEW OF SYSTEMS As above General: No weight loss, fever, chills, malaise Cardiac: No CP, palpitations, or leg swelling Respiratory: No cough or SOB GI: No N/V or diarrhea, no blood in stool : No burning or frequency with urination, no blood in urine All other reviewed and negative other than HPI. PHYSICAL EXAM: There were no vitals taken for this visit. GEN: Well appearing, alert, in no acute distress, well-hydrated, well nourished. 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 Brow ptosis Eye exposure due to OO paralysis Ectropion from age and OO Plan: - Resigned consent form for Eyelid weight or equivalent to the left upper eyelid and left direct eyebrow lift. Lateral wedge canthopexy of left lower lid. RTC for surgery scheduled in April 2023 The patient is seen and examined by Dr. Sol and the following reflects his service. Scribed by Chloe Riojas I agree with the Chief Complaint, ROS, and Past Histories independently gathered by the clinical direct support professional and the remaining scribed note accurately describes my personal service to the patient. 30 Minutes total visit spent face to face with patient. Greater than 50% of the time was spent for counseling and coordination of care, discussing treatment options and recommendations. By signing my name below, Oscar, Chloe Riojas, attest that this documentation has been prepared under the direction and in the presence of Dr. Sol Electronically signedChloe Scribe March 29, 2023 2:01 PM Provider Attestation: Shweta Moore MD, personally performed the services described in this documentation. All medical record entries made by the scribe were at my direction and in my presence. I have reviewed the chart and discharge instructions (if applicable) and agree that the record reflects my personal performance and is accurate and complete. Dr. Shweta Sol MD March 29, 2023 2:34 PM [facility] 03-21-2023 Miscellaneous Notes I see that it does say local in the surgical episode but I'm thinking that it may not be. It does not state anything in the note. Just spoke with Dr. Sol and he said it would be 100% done under MAC, not local. Also spoke with Chioma from [facility] about this. Thanks. Beatris Castañeda LPN [facility] calling in asking for patients procedure if you are using local if so she does not need a PAC appt please advise. Ph- [phone] documented in this encounter [facility] 02-27-2023 Evaluation + Plan note Associated Problem(s): Pacemaker November 22, 2022 Garcia [id number] dual-chamber permanent pacemaker [facility] Work Phone: 02-27-2023 Evaluation + Plan note Associated Problem(s): senior care current use of anticoagulant therapy CHADS VASc 5 anticoagulated on Coumadin Denies bleeding diatheses [facility] Work Phone: 02-27-2023 Miscellaneous Notes Associated Problem(s): Pacemaker November 22, 2022 Garcia [id number] dual-chamber permanent pacemaker Associated Problem(s): senior care current use of anticoagulant therapy CHADS VASc 5 anticoagulated on Coumadin Denies bleeding diatheses Associated Problem(s): Paroxysmal atrial fibrillation (CMS/HCC) EKG in office a paced, underlying sinus rhythm. QTc 432. Associated Problem(s): Statin intolerance September 2022 LDL 90, HDL 46 Briefly discussed Repatha and politely declines due to concerns regarding cost and self injections. 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 Work Phone: 02-27-2023 Evaluation + Plan note Associated Problem(s): Paroxysmal atrial fibrillation (CMS/HCC) EKG in office a paced, underlying sinus rhythm. QTc 432. [facility] Work Phone: 02-27-2023 Evaluation + Plan note Associated Problem(s): Statin intolerance September 2022 LDL 90, HDL 46 Briefly discussed Repatha and politely declines due to concerns regarding cost and self injections. 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 Work Phone: 02-26-2023 History of Presen t illness Narrative Chief Complaint 'better than I have been in a long time Reason for Visit Routine 3-month follow-up. Patient presents to the office today for outpatient follow-up for device implant, atrial fibrillation, anticoagulation, coronary artery disease and secondary prevention. Last evaluated in clinic by Dr. Briggs October 2022 She was then rehospitalized in November 2022. Seen in consult by Dr. Briggs. Repeat cardiac cath with patent stents. Eventually had uneventful pacemaker implant. Presents today ambulatory with cane and steady gait. History of Present Illness Patient is an extremely pleasant 87-year-old female who presents to the office without voiced complaints. This is her 3 months post device follow-up. Chest x-ray: Reviewed and unremarkable Device interrogation: February 19, 2023. V paced 10%. 700 mode switching with AT/AF burden less than 1%. Her 1 week wound check was completed by medical staff. Site examined today it remains well-healed, unremarkable. 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 She has [address] stairs that she goes up and down on Sundays to get ready for catholic. She denies any dyspnea on exertion, denies fatigability. Reports improvement in overall functional capacity and exercise tolerance. Patient reports that overall has no complaint(s) of chest pain, chest pressure/discomfort, exertional chest pressure/discomfort, fatigue, irregular heart beat, lower extremity edema, orthopnea, and palpitations The importance of secondary prevention reviewed: HTN: Following office HLD: Statin intolerant, reluctant for Repatha DM: Denies Smoker: Denies BMI: Reviewed the merits of healthy lifestyle choices on overall cardiovascular health. Overall patient is pleased with current state of cardiovascular health. At this time there are no indications for additional cardiovascular testing or need for medication changes. Review of Systems Cardiovascular: Negative for chest pain, dyspnea on exertion, irregular heartbeat, leg swelling, near-syncope, orthopnea, palpitations, paroxysmal nocturnal dyspnea and syncope. Visit Vitals BP 138/74 (BP Location: Left arm, Patient Position: Sitting) Pulse 60 Ht 1.575 m (5' 2 ) Wt 82.1 kg (181 lb) BMI 33.11 kg/m Smoking Status Never BSA 1.9 m Physical Exam Vitals and nursing note reviewed. HENT: Head: Normocephalic. Cardiovascular: Rate and Rhythm: Normal rate and regular rhythm. Heart sounds: Normal heart sounds. Pulmonary: Effort: Pulmonary effort is normal. Breath sounds: Normal breath sounds. Abdominal: Palpations: Abdomen is soft. Musculoskeletal: Right lower leg: No edema. Left lower leg: No edema. Skin: General: Skin is warm and dry. Neurological: General: No focal deficit present. Mental Status: She is alert. Psychiatric: Mood and Affect: Mood normal. Behavior: Behavior normal. Allergies Allergen Reactions Beta-Blockers (Beta-Adrenergic Blocking Agts) Other bradycardia Ibuprofen Hives Tdxoame-Gsg-Oxm Reductase Inhibitors Myalgia and Other Current Outpatient Medications Medication Instructions amiodarone (PACERONE) 200 mg, oral, Daily aspirin 81 mg chewable tablet Take one tablet by mouth twice a week cholecalciferol (Vitamin D-3) 50 mcg (2,000 unit) capsule 1 capsule, oral, Daily clopidogrel (PLAVIX) 75 mg, oral, Daily cyanocobalamin (Vitamin B-12) 100 mcg tablet 1 tablet, oral, Daily fish oil concentrate ([place]-3) 120-180 mg capsule 1 capsule, oral, Daily isosorbide mononitrate ER (IMDUR) 60 mg, oral, Daily, Do not crush or chew. levothyroxine (SYNTHROID, LEVOXYL) 50 mcg, oral, Daily before breakfast lisinopril 10 mg, oral, Daily nitroglycerin (NITROSTAT) 0.4 mg, sublingual, Every 5 min PRN torsemide (DEMADEX) 10 mg, oral, Daily triamcinolone (Kenalog) 0.1 % cream 1 Application, Topical, 2 times daily warfarin (COUMADIN) 3 mg, oral, See admin instructions, Per the [facility] Assessment: Abnormal echocardiogram October 2021 echo LVEF 55 to 60% LVH mild LAE moderate dilated MR mild RVSP 40 mmHg High risk medication use Amiodarone Surveillance testing December 2022 Arteriosclerosis of coronary artery September 25, 2022 pCX PCI/Stanley 2.5/30mm Diag, LAD, OM3 patent stents pRCA 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 Paroxysmal atrial fibrillation (CMS/HCC) EKG in office a paced, underlying sinus rhythm. QTc 432. senior care current use of anticoagulant therapy CHADS VASc 5 anticoagulated on Coumadin Denies bleeding diatheses Pacemaker November 22, 2022 Garcia [id number] dual-chamber permanent pacemaker Plan: Through informed decision making process incorporating patients unique circumstances, the following treatment plan will be initiated: 1. Prescription drug management of cardiovascular medication for efficacy, adherence to treatment, side effect assessment and polypharmacy. Current treatment clinically warranted and to continue without modifications. 2. Return for follow-up; in the interim, contact the office if new symptoms arise. Dr. Olivarez 6 months Mickey James MSN, FREIGHT SERVICE INSPECTOR-LAST IR[employer]ER, PMHNP-[facility] Please excuse any errors in grammar or translation related to this dictation. Voice recognition software was utilized to prepare this document. documented in this encounter [facility] Work Phone: 02-26-2023 Instructions MAGALI Phan - 02/26/2023 1:00 PM EST Please bring all medicines, vitamins, and herbal supplements with you when you come to the office. Prescriptions will not be filled unless you are compliant with your follow up appointments or have a follow up appointment scheduled as per instruction of your physician. Refills should be requested at the time of your visit. EKG done in office today PLAN: Through informed decision making process incorporating patients unique circumstances, the following treatment plan will be initiated: 1. Prescription drug management of cardiovascular medication for efficacy, adherence to treatment, side effect assessment and polypharmacy. Current treatment clinically warranted and to continue without modifications. 2. Return for follow-up; in the interim, contact the office if new symptoms arise. Dr. Olivarez 6 months documented in this encounter [facility] Work Phone: 12-13-2022 Note HNO ID: [id number] Author: Mattei Adkins, RN Service: ? 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 This developed in October 2021. She had surgery on her lower eye lid, she has tried therapy and steroids with no improvement. She has difficulty eating and drinking, sleeping and even smelling due to the facial drooping. She is scheduled for surgery on 12/18/2022. Cardiac cath done on 09/25/2022 PAST MEDICAL HISTORY Diagnosis Date MGUS (monoclonal gammopathy of unknown significance) No past surgical history on file. torsemide (DEMADEX) 5 mg tablet Take 5 mg by mouth. amiodarone (PACERONE) 200 mg tablet Take 200 mg by mouth. amLODIPine (NORVASC) 5 mg tablet Take 5 mg by mouth once daily. warfarin (COUMADIN) 6 mg tablet Take 2.5 mg by mouth. AMITRIPTYLINE 25 mg tablet Take 25 mg by mouth daily at bedtime. DIGOXIN (DIGITEK ORAL) Take 0.125 mg by mouth. carvedilol (COREG) 6.25 mg tablet Take 1 tablet by mouth twice daily. lisinopril 5 mg tablet Take 10 mg by mouth once daily. Allergies: ALLERGIES Allergen Reactions Motrin [Ibuprofen] Unknown Wfldnvc-Qer-Uxr Red* Other: See Comments Cannot walk when she takes it No family history on file. Social History Tobacco Use Smoking status: Never Smokeless tobacco: Never Substance Use Topics Alcohol use: No REVIEW OF SYSTEMS As above General: No fever, chills Cardiac: + leg swelling. She has several stents and she is on blood thinners, AFib controlled with medications, CHF Respiratory: + SOB GI: No N/V or diarrhea Hematology: No blood thinners yes Coumadin All other reviewed and negative other than HPI. PHYSICAL EXAM: GEN: Well appearing, alert, in no acute distress, well-hydrated, well nourished. Left sided facial drooping Going from cranial to caudal, she is noted to be normal from the standpoint of cranial nerves on the right side of her face. On the left side she is noted to have no frontalis rhytids, brow ptosis, and inability to close the eyelid with lower eyelid ectropion and the cornea that is not completely protected by Alvarado's phenomenon. She has no nasolabial fold on the left and the mouth overall is pulled severely to the right side of the face. The commissure is depressed with mild drooling noted from the left side of the mouth. 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 As she is more than a year out and 87 years old I would not anticipate any further improvement in the status of her facial asymmetry. Her major complaints are that of eye pain due to constantly exposed cornea for which she manually pulls her upper eyelid down with secondary but very concerning complaint of severe oral asymmetry and drooling. She would like to have both of these addressed. Flitted for eyelid weight today, 16 was the best option. Consent obtained today. Any of these options will require the patient to be off Coumadin for the perioperative period 5 days before and it could be restarted 1 day after. Follow up at time of surgery on 12/18/2022. The patient is seen and examined by Dr. Sol and the following reflects his service. Scribed by Mattie Adkins RN I agree with the Chief Complaint, ROS, and Past Histories independently gathered by the clinical direct support professional and the remaining scribed note accurately describes my personal service to the patient. 30 Minutes total visit spent face to face with patient. Greater than 50% of the time was spent for counseling and coordination of care, discussing treatment options and recommendations. Provider Attestation: I, Shweta Sol MD, personally performed the services described in this documentation. All medical record entries made by the scribe were at my direction and in my presence. I have reviewed the chart and discharge instructions (if applicable) and agree that the record reflects my personal performance and is accurate and complete. 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 This developed in October 2021. She had surgery on her lower eye lid, she has tried therapy and steroids with no improvement. She has difficulty eating and drinking, sleeping and even smelling due to the facial drooping. She is scheduled for surgery on 12/18/2022. Cardiac cath done on 09/25/2022 PAST MEDICAL HISTORY Diagnosis Date MGUS (monoclonal gammopathy of unknown significance) No past surgical history on file. torsemide (DEMADEX) 5 mg tablet Take 5 mg by mouth. amiodarone (PACERONE) 200 mg tablet Take 200 mg by mouth. amLODIPine (NORVASC) 5 mg tablet Take 5 mg by mouth once daily. warfarin (COUMADIN) 6 mg tablet Take 2.5 mg by mouth. AMITRIPTYLINE 25 mg tablet Take 25 mg by mouth daily at bedtime. DIGOXIN (DIGITEK ORAL) Take 0.125 mg by mouth. carvedilol (COREG) 6.25 mg tablet Take 1 tablet by mouth twice daily. lisinopril 5 mg tablet Take 10 mg by mouth once daily. Allergies: ALLERGIES Allergen Reactions Motrin [Ibuprofen] Unknown Vptavxf-Ydh-Gah Red* Other: See Comments Cannot walk when she takes it No family history on file. Social History Tobacco Use Smoking status: Never Smokeless tobacco: Never Substance Use Topics Alcohol use: No REVIEW OF SYSTEMS As above General: No fever, chills Cardiac: + leg swelling. She has several stents and she is on blood thinners, AFib controlled with medications, CHF Respiratory: + SOB GI: No N/V or diarrhea Hematology: No blood thinners yes Coumadin All other reviewed and negative other than HPI. PHYSICAL EXAM: GEN: Well appearing, alert, in no acute distress, well-hydrated, well nourished. Left sided facial drooping Going from cranial to caudal, she is noted to be normal from the standpoint of cranial nerves on the right side of her face. On the left side she is noted to have no frontalis rhytids, brow ptosis, and inability to close the eyelid with lower eyelid ectropion and the cornea that is not completely protected by Alvarado's phenomenon. She has no nasolabial fold on the left and the mouth overall is pulled severely to the right side of the face. The commissure is depressed with mild drooling noted from the left side of the mouth. 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 As she is more than a year out and 87 years old I would not anticipate any further improvement in the status of her facial asymmetry. Her major complaints are that of eye pain due to constantly exposed cornea for which she manually pulls her upper eyelid down with secondary but very concerning complaint of severe oral asymmetry and drooling. She would like to have both of these addressed. Flitted for eyelid weight today, 16 was the best option. Consent obtained today. Any of these options will require the patient to be off Coumadin for the perioperative period 5 days before and it could be restarted 1 day after. Follow up at time of surgery on 12/18/2022. The patient is seen and examined by Dr. Sol and the following reflects his service. Scribed by Mattie Adkins RN I agree with the Chief Complaint, ROS, and Past Histories independently gathered by the clinical direct support professional and the remaining scribed note accurately describes my personal service to the patient. 30 Minutes total visit spent face to face with patient. Greater than 50% of the time was spent for counseling and coordination of care, discussing treatment options and recommendations. Provider Attestation: I, Shweta Sol MD, personally performed the services described in this documentation. All medical record entries made by the scribe were at my direction and in my presence. I have reviewed the chart and discharge instructions (if applicable) and agree that the record reflects my personal performance and is accurate and complete. Shweta Sol MD December 13, 2022 documented in this encounter [facility] 11-24-2022 Discharge summary Note Date/Time November 24, 2022 10:58am [facility] [address] [place] [address] Discharge Summary Signed Patient: Erin Canales MR#: [id number] : 1935 Acct:[id number] Age/Sex: 87 / F Adm Date: 3 Loc: Room: 5Y5670-[address]: Danilo Drummond MD Copies to: MD Danilo Sparks MD~ Providers Date of Discharge: 11/24/22 Discharging Provider: Danilo Drummond Primary Care Provider: Los Chaudhary Consults: 11/17/22 21:47 Consult to Cardiology Routine 11/23/22 12:50 OT [Consult to Occupational Therapy] Routine PT [Consult to Physical Therapy] Routine Discharge Diagnosis (1) Chest pain: (2) History of heart artery stent: (3) CAD (coronary artery disease): (4) Paroxysmal atrial fibrillation: (5) Hyponatremia: (6) Sinus bradycardia: (7) Hypertension: Final Diagnosis Final Discharge Diagnosis: As listed above Summary Hospital Course Hospital course: Mrs. Canales is an 87-year-old female who came in with chest pain. She was diagnosed having non-ST elevation WA. She was seen by secretary book keeper who recommended cardiac catheter. Please refer to cath report for details but essentially came back negative for any acute or progressive disease. No stent is needed. Medical management is recommended. Patient was found to have bradycardia and diagnosed having sick sinus syndrome. Multiple discussions took place between patient, her daughter and Dr. Olivarez. The decision was made to proceed with the pacemaker insertion which was insertedthe day before yesterday. Patient had minimal bleed at the pacemaker site whichhad stopped. Hypertension, stable. Elevated TSH which is likely caused by amiodarone however I could not exclude the possibility of subclinical hypothyroidism. I recommend the patient to have a repeat TSH in 4 to 6 weeks. Functional impairment. Patient may qualify to go to the rehab unit. If she does not qualify she wants to go home. She does not want to go to a skilled facility. Hypertension, stable. Patient has multiple complex medical issues. All appear to be stable. Patient is cleared by cardiology to be discharged home on dual antiplatelet treatment and resumption of her Coumadin. Patient will need to have a PT/INR twice a weekfor the next few weeks then less frequent if needed. I do not have any clear orstrong clinical justification to extend inpatient hospitalization. Patient however will require close and the frequent monitoring as well as additional work-up, investigation and therapeutic intervention that could take place from this point on post discharge. That is to prevent relapse, decompensation, rehospitalization and other medical implications. I instructed patient to ask her primary care doctor to obtain [facility] record entirely to address abnormalities seen on labs and imagingand to follow-up on needed medical care in the outpatient setting. Time Spent with Patient Time spent providing/coordinating discharge services (# min): 60 Surgeries and Procedures Operation Date: 11/20/22 08:25 <No data on this case meets the specified criteria> Operation Date: 11/21/22 10:00 Actual Procedures p CL LHC & COR Angio - Pearl Michel DO Operation Date: 11/22/22 10:30 Actual Procedures p OR Pacemaker Insertion(Not Applicable) - Akhil Olivarez MD Diagnostic Studies Completed and Pending Studies Pending studies at discharge: 11/17/22 21:48 ECG 12 lead ECG Stat 11/25/22 05:00 Prothrombin Time INR IN AM 11/26/22 05:00 Prothrombin Time INR IN AM 11/27/22 05:00 Prothrombin Time INR IN AM 11/28/22 05:00 Prothrombin Time INR IN AM 11/29/22 05:00 Prothrombin Time INR IN AM 11/30/22 05:00 Prothrombin Time INR IN AM Labs on day of discharge: 11/24/22 05:41: PT 14.0 H, INR 1.2 11/24/22 05:41: Corrected WBC 5.8, Uncorrected WBC Count 5.8, RBC 3.59 L, Hgb 11.4 L, Hct 34.5, MCV 96.2, MCH 31.9, MCHC 33.1, RDW 14.5, Plt Count 164, MPV 7.6, Neut % (Auto) 68.1, Lymph % (Auto) 20.3, E[place] % (Auto) 8.8, Eos % (Auto) 1.7, Baso % (Auto) 1.1, Nucleat RBC Rel Count 0.1, Neut # (Auto) 4.0, Lymph # (Auto) 1.2, [place] # (Auto) 0.5, Eos # (Auto) 0.1, Baso # (Auto) 0.1 Exam Physical Exam Vital Signs: Temp Pulse Resp BP Pulse Ox O2 Del Method O2 Flow Rate 97.8 F 60 16 160/74 H 100 Room Air 6 11/24/22 08:00 11/24/22 08:00 11/24/22 08:00 11/24/22 08:00 11/24/22 08:00 11/24/22 08:00 11/22/22 11:41 Narrative: [pt is awake and alert. oriented to place, time and person HEENT: [place] conjunctiva and NL buccal mucosa Neck: Supple, no tenderness Endocrine: No Thyromegaly. Vascular: No JVD or carotid bruit. Lymphatic: No cervical lymphadenopathy. Chest: CTA no DTP. Pacemaker in the left upper quadrant of the chest. Dry blood noted. No active bleed. Heart regular rate and rhythm. Abd: Soft, no tenderness, no rebound and no rigidity. Increase abd girth therefore clinically I could not exclude the possibility of intra abd mass or organomegaly. LE: No cyanosis or clubbing, no varices or edema. Neuro: A A O. Nl speech, comprehension and attention. Nl and symetrical motor and tone examination through out. Left facial palsy, chronic []] Discharge Plan Discharge Plan Patient Disposition: Home Activity: Other Comment: Please follow Cardiac discharge instructions for activity restrictions Diet: Low-Sodium and Low-Cholesterol Additional Instructions: DISCHARGE INSTRUCTIONS FOR PERMANENT PACEMAKER AND IMPLANTABLE CARDIOVERTER DEFIBRILLATOR (ICD) INSTRUCTIONS 1. Incision should be kept clean and dry. Please notify us if the site becomes red, swollen, develops drainage, or if you begin having a fever or chills before your 1 week appointment. 2. May shower- avoid running water directly on your incision. 3. Do NOT stop antibiotics. If you have problems with them, please call. 4. Call with any symptoms of dizziness, lightheadedness, or passing out. 5. You may use the involved arm but you must avoid reaching backwards with the involved arm for 6 weeks[address] 6[address] to place your pacemaker/ICD implant card in your wallet/purse to carry with you at all times. You will receive this card in 6-8 weeks by mail. 7. You may resume driving in 2 weeks. 8. Continue all your home medications and the prescribed antibiotics per the medication reconciliation form. APPOINTMENT: 1. Office visit with nurse for incision check in the [facility] Office on 11/29/2022 at 2:00pm. 2. Chest x-ray to be done the day of device check at [facility] on 02/19/2023. 3. Pacemaker/ICD clinic appointment at [facility] on 02/19/2023 at 10:00am . 4. Office visit with Mickey James NP in the [facility] Office on 02/26/2023 at 1:00pm. [] I may not have addressed or treated all of your medical illnesses or the abnormal blood work or imaging studies during this hospitalization. Please ask your primary care provider to obtain [facility] records entirely to follow up on all of the abnormal physical, laboratory, and imaging findings that I have not addressed. I would recommend that your primary care doctor arrange for repeat thyroid test TSH in 4 to 6 weeks. Please resume warfarin ( Coumadin ) dose testing ( PT /INR ) next Sunday. I would recommend that you have this test done initially twice a week to adjust your Coumadin dose and the less frequent after that as deemed to be appropriate by your primary care doctor. Please return back to the emergency room or seek medical attention if your symptoms worsen or return. Discharging you from [facility] does not mean that your medical care ends here and now. You may still need additional monitoring, work up, investigation, and treatment plan to be handled from this point on by out patient providers including your primary care provider and specialists. For any medication question, please contact your retail pharmacist or your primary care provider. Thank you. Instructions: Pacemaker Insertion, Pacemaker Insertion (DC) Prescriptions: New clindamycin HCl 300 mg capsule 600 mg PO TID 2 Days Qty: 12 0RF pantoprazole [Protonix] 20 mg tablet,delayed release (DR/EC) 20 mg PO DAILY Qty: 60 1RF Continued selenium 50 mcg Tablet 100 mcg PO DAILY calcium carbonate [Calcium 600] 600 mg calcium (1,500 mg) Tablet 600 mg PO BID vitamin E 400 unit Capsule 800 unit PO DAILY cholecalciferol (vitamin D3) [Vitamin D3] 50 mcg (2,000 unit) Tablet 50 mcg PO DAILY omega 7-sbg-siq-fish oil [Fish Oil] 1,000 mg (120 mg-180 mg) Capsule 1 cap PO DAILY apple cider vinegar 500 mg Tablet 500 mg PO DAILY multivitamin Tablet 1 tab PO DAILY ascorbic acid (vitamin C) [Vitamin C] 1,000 mg Tablet 2,000 mg PO BID aspirin 81 mg Tablet,Delayed Release (Dr/Ec) 81 mg PO 2XW torsemide 10 mg tablet 10 mg PO DAILY lisinopril 10 mg tablet 10 mg PO DAILY Patient Comments: TAKE 1 TABLET BY MOUTH ONCE DAILY DIRECTED. DOSE INCREASED isosorbide mononitrate 60 mg tablet extended release 24 hr 60 mg PO DAILY Patient Comments: TAKE 1 TABLET BY MOUTH ONCE DAILY DIRECTED. DOSE INCREASED warfarin 6 mg tablet 6 mg PO QMWF nitroglycerin 0.4 mg tablet, sublingual 0.4 mg sublingual DIRECTED PRN (Reason: Chest Pain) Patient Comments: TAKE DIRECTED Soothe Night Time Lubricant 80-20 % Ointment 1 applic EYE-LEFT DAILY PRN (Reason: Dry Eye(S)) [facility] 40-10-5-3.3 mg Tablet 1 tab PO DAILY nortriptyline 25 mg Capsule 25 mg PO DAILY B12 5,000-100 mcg Lozenge 1 mari DAILY clopidogrel [Plavix] 75 mg tablet 75 mg PO DAILY Qty: 90 2RF Rx Instructions: Discontinue Brilinta after 30 days and then initiate clopidogrel daily warfarin 6 mg tablet See Rx Instructions .ROUTE .COMPLEX Rx Instructions: 3 mg orally EVERY SUNDAY, SUNDAY, SUNDAY AND SUNDAY Changed acetaminophen 650 mg Tablet Extended Release 650 mg PO BID Qty: 60 0RF amiodarone 100 mg Tablet 100 mg PO DAILY Qty: 30 0RF Follow Up: Akhil Olivarez MD [Active Staff] - Los Chaudhary MD [Primary Care Provider] - 11/30/22 10:30 am (Post hospital appointment. Please call to reschedule if needed.) Documented By: Danilo Drummond MD 11/24/22 1055 Signed By: <Electronically signed by Danilo Drummond MD> 11/24/22 1216 [facility] Work Phone: [phone]) 880-435108-17-2023 Progress note Author Danilo Drummond [facility] November 23, 2022 4:11pm Note Date/Time November 23, 2022 4: 11pm [facility] [address] [place] [address] Hospitalist Progress Note Signed Patient: Erin Canales MR#: [id number] : 1935 Acct:[id number] Age/Sex: 87 / F Adm Date: 3 Loc: 3T Room: [address] [place] [address] Type: ADM IN Attending Dr: Danilo Drummond MD Copies to: ~ Date of Service: 11/23/2022 Subjective Subjective Narrative: Blood oozing noted at the pacemaker site. The patient has a compounding her left arm. She is having about whether she can handle to go home today or tomorrow. No chest pain, no cough or congestion. No headaches. Exam Physical Exam Vital Signs: Temp Pulse Resp BP Pulse Ox O2 Del Method O2 Flow Rate 97.8 F 60 18 139/73 100 Room Air 6 11/23/22 16:04 11/23/22 16:04 11/23/22 16:04 11/23/22 16:04 11/23/22 16:04 11/23/22 16:04 11/22/22 11:41 Narrative: [pt is awake and alert. oriented to place, time and person HEENT: [place] conjunctiva and NL buccal mucosa Neck: Supple, no tenderness Endocrine: No Thyromegaly. Vascular: No JVD or carotid bruit. Lymphatic: No cervical lymphadenopathy. Chest: CTA no DTP. Pacemaker in the left upper quadrant of the chest. Blood oozing saturating the gauze. Heart regular rate and rhythm. Abd: Soft, no tenderness, no rebound and no rigidity. Increase abd girth therefore clinically I could not exclude the possibility of intra abd mass or organomegaly. LE: No cyanosis or clubbing, no varices or edema. Neuro: A A O. Nl speech, comprehension and attention. Nl and symetrical motor and tone examination through out. Left facial palsy, chronic []] Objective Lab Results 11/22/22 06:24 11/23/22 06:34 Meds Allergies and Active Meds Allergies ibuprofen [From Motrin] Allergy (Verified 11/17/22 18:01) Hives Active Meds: Active Medications Generic Name Dose Route Start Last Admin Trade Name Freq PRN Reason Stop Dose Admin Acetaminophen 1,000 mg 11/22/22 11:42 Acetaminophen 500 Mg Tablet PO 11/22/23 11:41 Q6H PRN Mild Pain Al Hydrox/Mg Hydrox/Simethicone 30 ml 11/22/22 11:42 Mag Hydrox/Al Hydrox/Simeth 30 Ml Udc PO 11/22/23 11:41 Q4H PRN Epigastric distress (Non-Card) Amiodarone HCl 100 mg 11/20/22 09:00 11/23/22 09:01 Amiodarone 100 Mg Tablet PO 11/20/23 08:59 Not Given DAILY [facility] Aspirin 81 mg 11/19/22 09:00 11/23/22 09:01 Aspirin 81 Mg Tab.Chew PO 11/19/23 08:59 Not Given DAILY [facility] Clopidogrel Bisulfate 75 mg 11/18/22 09:00 11/23/22 09:01 Clopidogrel Bisulfate 75 Mg Tablet PO 11/18/23 08:59 Not Given DAILY [facility] Docusate Sodium 100 mg 11/22/22 11:42 Docusate 100 Mg Capsule PO 11/22/23 11:41 QHS PRN Constipation Sodium Chloride 1,000 mls @ 20 mls/hr 11/22/22 10:00 11/22/22 12:20 0.9% Sodium Chloride 1,000 Ml IV 11/22/23 09:59 20 mls/hr .Q24H [facility] Infusion Isosorbide Mononitrate 60 mg 11/18/22 09:00 11/23/22 09:01 Isosorbide Mononitrate 24hr Er 60 Mg Tab.Er.24h PO 11/18/23 08:59 Not Given DAILY [facility] Lisinopril 10 mg 11/18/22 09:00 11/22/22 07:56 Lisinopril 10 Mg Tablet PO 11/18/23 08:59 10 mg DAILY [facility] Administration Morphine Sulfate 4 mg 11/22/22 11:42 Morphine Sulfate 4 Mg/Ml Cartridge IV-PUSH Q20M PRN Chest Pain Nitroglycerin 0.4 mg 11/22/22 11:42 Nitroglycerin 0.4 Mg Tab.Subl SUBLINGUAL 11/22/23 11:41 Q5M PRN Chest Pain Ondansetron HCl 4 mg 11/17/22 21:47 Ondansetron 4 Mg/2 Ml Vial IV-PUSH 11/17/23 21:46 Q6H PRN Nausea And Vomiting Potassium Chloride 40 meq 11/21/22 09:05 Potassium Chloride Er 20 Meq Tab.Er.Prt PO STAT PRN Hypokalemia Sodium Chloride 0 ml 11/17/22 18:00 Sodium Chloride 0.9 % 10 Ml Syringe IV-PUSH 11/17/23 17:59 PRN PRN Flush Sodium Chloride 0 ml 11/17/22 21:47 Sodium Chloride 0.9 % 10 Ml Syringe IV-PUSH 11/17/23 21:46 PRN PRN Flush Sodium Chloride 0 ml 11/20/22 09:42 Sodium Chloride 0.9 % 10 Ml Syringe IV-PUSH 11/20/23 09:41 PRN PRN Flush Sodium Chloride 0 ml 11/21/22 09:05 Sodium Chloride 0.9 % 10 Ml Syringe IV-PUSH 11/21/23 09:04 PRN PRN Flush Sodium Chloride 0 ml 11/21/22 15:58 Sodium Chloride 0.9 % 10 Ml Syringe IV-PUSH 11/21/23 15:57 PRN PRN Flush Torsemide 10 mg 11/20/22 08:30 11/22/22 07:58 Torsemide 10 Mg Tablet PO 11/20/23 08:29 10 mg DAILY@0800 JOHN Administration Tramadol HCl 50 mg 11/17/22 21:47 Tramadol 50 Mg Tablet PO 05/16/23 21:46 Q6H PRN Moderate Pain Triamcinolone Acetonide 1 applic 11/22/22 11:42 Triamcinolone 0.1% Cream 15 Gm Tube TOPICAL 11/22/23 11:41 QID PRN Irritation Warfarin Sodium 1 each 11/22/22 17:12 Warfarin - Pharmacy Dosing MISCELLANE 11/22/23 17:11 ONCE PRN ZZ.Pharmacy Consult Protocol Warfarin Sodium 3 mg 11/23/22 17:00 Warfarin 3 Mg Tablet PO 11/23/22 17:01 ONCE ONE A&P - Hospitalist Assessment/Plan (1) Chest pain: (2) History of heart artery stent: (3) CAD (coronary artery disease): (4) Paroxysmal atrial fibrillation: (5) Hyponatremia: (6) Sinus bradycardia: (7) Hypertension: Plan Chest pain with history of CAD and 6 coronary stents Plan for cardiac cath this a.m.. INR is 1.5. Chest pain-free over the last 24 hours Continue aspirin and Plavix. Cardiac cath is unremarkable. Paroxysmal atrial fibrillation associated with bradycardia suspect sick sinus In sinus rhythm, hold Coumadin, amiodarone has been changed to 100 mg daily. Status post pacemaker insertion. Blood oozing around the site. Patient is on dual antiplatelet therapy and Coumadin was restarted again. Continue to monitorH&H. Continue to monitor the bleeding site. No blood oozing outside the dressing. Hyponatremia Improved, could be caused by subclinical hypothyroidism. TSH is slightly elevated but T4 is normal. Consider initiation of thyroid replacement therapy Subclinical hypothyroidism Amiodarone has been changed to 100 mg daily. TSH is elevated suggestive of subclinical hypothyroidism. T4 is normal. Her TSH elevation could be caused byamiodarone. Repeat TSH in 4 to 6 weeks and consider initiation of thyroid replacement therapy specifically if T4 drops Hypertension Stable. Continue lisinopril. 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 Continue Demadex SCDs for DVT prophylaxis Heart healthy diet Full code Functional impairment related to pacemaker, left arm limitation secondary to pacemaker insertion, right arm limitation secondary to cath. Patient wants to see if she qualifies to go to the inpatient rehab. We will discuss with case management and arrange for that. I called her daughter Chioma on 11/20 and on 11/23 in person. I gave her update on her condition, status and the treatment plan. Documented By: Danilo Drummond MD 11/23/22 1608 Signed By: <Electronically signed by Danilo Drummond MD> 11/23/22 1611 [facility] Work Phone: [phone]) 783-957208-17-2023 Progress note Author [facility] November 23, 2022 11:21am Note Date/Time November 23, 2022 11 :21am [facility] [address] [place] [address] Cardiology Progress Note Signed Patient: Erin Canales MR#: [id number] : 1935 Acct:[id number] Age/Sex: 87 / F Adm Date: 3 Loc: Room: [address] [place] [address] Type: ADM IN Attending Dr: Danilo Drummond MD Copies to: ~ Date of Service: 11/23/2022 Subjective Principal diagnosis: New onset angina Interval history: Patient underwent coronary angiography today. Findings were favorable and no adhoc intervention was necessary. No progression of disease or stent thrombosis. Had a long detailed discussion with the patient, again, regarding her severe sick sinus syndrome and bradycardia. It is mildly symptomatic but also will pose a significant barrier to delivery of healthcare because of profound bradycardia arrhythmia. Because of this we have discussed pacemaker implantation. The rationale for doing so and its indications as well as procedural technique risk benefits and alternatives were discussed and she agrees and consents to the procedure. I will schedule for tomorrow. Interim evaluation 11/23/2022: Stable status post pacemaker, chest x-ray clear with no pneumothorax, pacing parameters appropriate. Patient is doing well withno recurrent angina on current therapies. Patient can follow-up with Dr. Olivarez as previously arranged. Discussed left upper extremity limitations Exam Physical Exam Vital Signs: Temp Pulse Resp BP Pulse Ox O2 Del Method O2 Flow Rate 97.8 F 60 18 147/76 H 98 Room Air 6 11/23/22 07:43 11/23/22 07:43 11/23/22 07:43 11/23/22 07:43 11/23/22 07:43 11/23/22 08:00 11/22/22 11:41 Const General: cooperative, comfortable, no acute distress and well developed Nutritional Appearance: average body habitus Orientation: alert, awake and oriented x3 HEENT Head: other (Left facial Alvarado's palsy) Neck Neck: normal visual inspection Chest Chest palpation & inspection: normal inspection of the chest Resp Effort & Inspection: normal respiratory effort Auscultation: clear to auscultation bilaterally Cardio Palpation: normal PMI Rate: regular rate Rhythm: regular rhythm Heart Sounds: S1 normal and S2 normal Skin General: ecchymosis Neuro General: patient alert, patient awake and patient oriented x3 Cognition: normal cognition Speech: speech normal Extrem General: no clubbing, cyanosis or edema Objective Labs 11/22/22 06:24 11/23/22 06:34 Labs: Laboratory Results - last 24 hr 11/23/22 11/23/22 06:34 06:34 PT 13.8 H INR 1.2 PHA Creatinine Clear 39.79 Sodium 135 L Potassium 4.4 Chloride 103 Carbon Dioxide 26.3 Anion Gap 10.1 BUN 25 Creatinine 1.01 Est GFR (CKD-EPI) 53.544 Glucose 101 H Calcium 8.2 L A&P - Cardiology (1) Sinus bradycardia: Assessment/Problem Details: Symptomatic bradycardia. We discussed pacemaker implantation and she wishes to proceed. We will schedule for tomorrow. Code(s): R00.1 - Bradycardia, unspecified Status: Acute Plan Permanent dual-chamber pacemaker implantation tomorrow. Documented By: Pearl Michel DO 11/23/22 1118 Signed By: <Electronically signed by Pearl Michel, > 11/23/22 1121 [facility] Work Phone: [phone]) 637-134408-17-2023 [facility] Dis[facility] instructions Additional Instructions SNF TO MANAGE: PT/OT to eval and treat Monitor VS per protocol--HTN Monitor Skin assessment Monitor Cardiac assessment--Chest pain, CAD, Atrial fib, S/P Pacemaker 11/22/22 Please follow Pacemaker and Cardiac cath discharge instructions as listed below Draw a PT/INR every Sunday and for 3 weeks, Coumadin to be managed by SNF providers Maintain high risk fall precautions Care to be managed by SNF providers DISCHARGE INSTRUCTIONS FOR PERMANENT PACEMAKER AND IMPLANTABLE CARDIOVERTER DEFIBRILLATOR (ICD) INSTRUCTIONS 1. Incision should be kept clean and dry. Please notify us if the site becomes red, swollen, develops drainage, or if you begin having a fever or chills before your 1 week appointment. 2. May shower- avoid running water directly on your incision. 3. Do NOT stop antibiotics. If you have problems with them, please call. 4. Call with any symptoms of dizziness, lightheadedness, or passing out. 5. You may use the involved arm but you must avoid reaching backwards with the involved arm for 6 weeks[address] 6[address] to [address] your pacemaker/ICD implant card in your wallet/purse to carry with you at all times. You will receive this card in 6-8 weeks by mail. 7. You may resume driving in 2 weeks. 8. Continue all your home medications and the prescribed antibiotics per the medication reconciliation form. APPOINTMENT: 1. Office visit with nurse for incision check in the [facility] Office on 11/29/2022 at 2:00pm. 2. Chest x-ray to be done the day of device check at [facility] on 02/19/2023. 3. Pacemaker/ICD clinic appointment at [facility] on 02/19/2023 at 10:00am . 4. Office visit with Mickey James NP in the [facility] Office on 02/26/2023 at 1:00pm. DISCHARGE INSTRUCTIONS FOR CARDIAC COSTUMER PHONE NUMBER OF YOUR PHYSICIAN: [phone] PROCEDURE: Heart Cath The following instructions have been prepared to help you care for yourself, or be cared for upon your return home. 1. You were given conscious sedation. Do not operate a vehicle, power tools, make important decisions, or drink alcohol for 24 hours. You might be drowsy or light headed. Return to the Emergency Room if you have trouble breathing, walking or nausea and vomiting. 2. FOR BLEEDING: Apply continuous pressure to the site and call 911. 3. Operative Site Care: Keep the dressing clean and dry. You may change the dressing only if soiled or wet. You may remove the dressing the following morning. You may wash over the puncture site in the shower. If the puncture site is at the wrist no soaking for 3 days. Some bruising or slight swelling may be present. -Signs of infection are redness, warmth, swelling, getting more sore, colored drainage, fever or chills. -Should the arm or leg become cold, numb, blue or white, call the secretary book keeper immediately. 4. ACTIVITY: You are advised to go directly home from the hospital. Restrict your activities for the rest of the day. Resume light or normal activities tomorrow. Do not engage in any activity that will stress the puncture site. Avoid heavy lifting (over 15 lbs.), straining or bending at the catheter site for 48 hours after discharge. If the puncture site is at the wrist do not manipulate wrist for 24 hours and no lifting more than 3 lbs for 3 days. 5. DIET:You may eat your regular diet when you desire. 6. MEDICATIONS: Resume your daily prescription schedule. Prescriptions may be sent with you if needed. Use as directed. When taking pain medications, you may experience dizziness or drowsiness. Do not drink alcohol or drive when taking pain medications. 7. If you should experience episodes of angina e.g. chest discomfort, heaviness, tightness, pressure, burning, with or without radiation to the neck, jaws, arms, or back- Use 1 Nitrostat under your tongue every 5-10 minutes, and up to 3 tablets. If no relief- Call 911 and go to the nearest Emergency Room. -Notify the office for recurrent angina, chest pain or other concerns. You may NOT drive yourself home! Follow the medication instructions provided on your discharge. If the dosages and instructions on this sheet differ from the dosage and instructions on the bottle, follow the instructions on the bottle. [facility] is not responsible for incorrect prescription information provided by the patient during their visit. Do not stop your medications without consulting your health care provider. Please take the list with you to your next doctor's appointment. [] I may not have addressed or treated all of your medical illnesses or the abnormal blood work or imaging studies during this hospitalization. Please ask your primary care provider to obtain [facility] records entirely to follow up on all of the abnormal physical, laboratory, and imaging findings that I have not addressed. I would recommend that your primary care doctor arrange for repeat thyroid test TSH in 4 to 6 weeks. Please resume warfarin ( Coumadin ) dose testing ( PT /INR ) next Sunday. I would recommend that you have this test done initially twice a week to adjust your Coumadin dose and the less frequent after that as deemed to be appropriate by your primary care doctor. Please return back to the emergency room or seek medical attention if your symptoms worsen or return. Discharging you from [facility] does not mean that your medical care ends here and now. You may still need additional monitoring, work up, investigation, and treatment plan to be handled from this point on by out patient providers including your primary care provider and specialists. For any medication question, please contact your retail pharmacist or your primary care provider. Thank you.[facility] Work Phone: [phone] 498-802608-16-2023 Progress note Author Danilo Drummond [facility] November 22, 2022 8:50am Note Date/Time November 22, 2022 8: 50am [facility] [address] [place] [address] Hospitalist Progress Note Signed Patient: Erin Canales MR#: [id number] : 1935 Acct:[id number] Age/Sex: 87 / F Adm Date: 3 Loc: Room: [address] [place] [address] Type: ADM IN Attending Dr: Danilo Drummond MD Copies to: ~ Date of Service: 11/22/2022 Subjective Subjective Narrative: No new symptoms since yesterday. No chest pain palpitation. No abdominal pain. Exam Physical Exam Vital Signs: Temp Pulse Resp BP Pulse Ox O2 Del Method 97.5 F L 45 L 16 166/55 H 98 Room Air 11/22/22 07:55 11/22/22 07:55 11/22/22 07:55 11/22/22 07:55 11/22/22 07:55 11/22/22 07:55 Narrative: [pt is awake and alert. oriented to place, time and person HEENT: [place] conjunctiva and NL buccal mucosa Neck: Supple, no tenderness Endocrine: No Thyromegaly. Vascular: No JVD or carotid bruit. Lymphatic: No cervical lymphadenopathy. Chest: CTA no DTP. Heart bradycardia, heart rate is in the 50s Abd: Soft, no tenderness, no rebound and no rigidity. Increase abd girth therefore clinically I could not exclude the possibility of intra abd mass or organomegaly. LE: No cyanosis or clubbing, no varices or edema. Neuro: A A O. Nl speech, comprehension and attention. Nl and symetrical motor and tone examination through out. Left facial palsy, chronic []] Objective Lab Results 11/22/22 06:24 11/22/22 06:24 Meds Allergies and Active Meds Allergies ibuprofen [From Motrin] Allergy (Verified 11/17/22 18:01) Hives Active Meds: Active Medications Generic Name Dose Route Start Last Admin Trade Name Freq PRN Reason Stop Dose Admin Acetaminophen 1,000 mg 11/20/22 08:04 11/21/22 22:02 Acetaminophen 500 Mg Tablet PO 11/17/23 21:46 1,000 mg Q8H PRN Administration Pain Al Hydrox/Mg Hydrox/Simethicone 30 ml 11/17/22 21:47 Mag Hydrox/Al Hydrox/Simeth 30 Ml Udc PO 11/17/23 21:46 Q4H PRN Epigastric distress (Non-Card) Amiodarone HCl 100 mg 11/20/22 09:00 11/22/22 07:57 Amiodarone 100 Mg Tablet PO 11/20/23 08:59 100 mg DAILY JOHN Administration Aspirin 81 mg 11/19/22 09:00 11/21/22 09:26 Aspirin 81 Mg Tab.Chew PO 11/19/23 08:59 Not Given DAILY [facility] Clopidogrel Bisulfate 75 mg 11/18/22 09:00 11/21/22 09:26 Clopidogrel Bisulfate 75 Mg Tablet PO 11/18/23 08:59 Not Given DAILY [facility] Docusate Sodium 100 mg 11/17/22 21:47 Docusate 100 Mg Capsule PO 11/17/23 21:46 QHS PRN Constipation Sodium Chloride 1,000 mls @ 20 mls/hr 11/22/22 10:00 0.9% Sodium Chloride 1,000 Ml IV 11/22/23 09:59 .Q24H JOHN Vancomycin HCl 1.25 gm/ 275 mls @ 183.333 mls/hr 11/22/22 08:00 11/22/22 07:58 Dextrose IV 11/22/22 09:29 183.33 mls/hr PREOP ONE Administration Protocol Lactated Ringer's 1,000 mls @ 70 mls/hr 11/22/22 09:00 Lactated Ringers IV 11/22/22 23:17 .[id number] JOHN Isosorbide Mononitrate 60 mg 11/18/22 09:00 11/22/22 07:56 Isosorbide Mononitrate 24hr Er 60 Mg Tab.Er.24h PO 11/18/23 08:59 60 mg DAILY JOHN Administration Lisinopril 10 mg 11/18/22 09:00 11/22/22 07:56 Lisinopril 10 Mg Tablet PO 11/18/23 08:59 10 mg DAILY JOHN Administration Miscellaneous Information 1 each 11/21/22 11:02 Consult To Pharmacy MISCELLANE 11/21/23 11:01 .PHACONSULT PRN ZZ.Pharmacy Consult Protocol Nitroglycerin 0.4 mg 11/17/22 21:47 Nitroglycerin 0.4 Mg Tab.Subl SUBLINGUAL 11/17/23 21:46 Q5M PRN Chest Pain Ondansetron HCl 4 mg 11/17/22 21:47 Ondansetron 4 Mg/2 Ml Vial IV-PUSH 11/17/23 21:46 Q6H PRN Nausea And Vomiting Potassium Chloride 40 meq 11/21/22 09:05 Potassium Chloride Er 20 Meq Tab.Er.Prt PO STAT PRN Hypokalemia Sodium Chloride 0 ml 11/17/22 18:00 Sodium Chloride 0.9 % 10 Ml Syringe IV-PUSH 11/17/23 17:59 PRN PRN Flush Sodium Chloride 0 ml 11/17/22 21:47 Sodium Chloride 0.9 % 10 Ml Syringe IV-PUSH 11/17/23 21:46 PRN PRN Flush Sodium Chloride 0 ml 11/20/22 09:42 Sodium Chloride 0.9 % 10 Ml Syringe IV-PUSH 11/20/23 09:41 PRN PRN Flush Sodium Chloride 0 ml 11/21/22 09:05 Sodium Chloride 0.9 % 10 Ml Syringe IV-PUSH 11/21/23 09:04 PRN PRN Flush Sodium Chloride 0 ml 11/21/22 15:58 Sodium Chloride 0.9 % 10 Ml Syringe IV-PUSH 11/21/23 15:57 PRN PRN Flush Torsemide 10 mg 11/20/22 08:30 11/22/22 07:58 Torsemide 10 Mg Tablet PO 11/20/23 08:29 10 mg DAILY@0800 JOHN Administration Tramadol HCl 50 mg 11/17/22 21:47 Tramadol 50 Mg Tablet PO 05/16/23 21:46 Q6H PRN Moderate Pain A&P - Hospitalist Assessment/Plan (1) Chest pain: (2) History of heart artery stent: (3) CAD (coronary artery disease): (4) Paroxysmal atrial fibrillation: (5) Hyponatremia: (6) Sinus bradycardia: (7) Hypertension: Plan Chest pain with history of CAD and 6 coronary stents Plan for cardiac cath this a.m.. INR is 1.5. Chest pain-free over the last 24 hours Continue aspirin and Plavix. Cardiac cath is unremarkable. Paroxysmal atrial fibrillation associated with bradycardia suspect sick sinus In sinus rhythm, hold Coumadin, amiodarone has been changed to 100 mg daily. Plan for pacemaker insertion today as recommended by cardiology after discussionwith the patient and her family. Hyponatremia Improved, could be caused by subclinical hypothyroidism. TSH is slightly elevated but T4 is normal. Consider initiation of thyroid replacement therapy Subclinical hypothyroidism Amiodarone has been changed to 100 mg daily. TSH is elevated suggestive of subclinical hypothyroidism. T4 is normal. Her TSH elevation could be caused by amiodarone. Repeat TSH in 4 to 6 weeks and consider initiation of thyroid replacement therapy specifically if T4 drops Hypertension Stable. Continue lisinopril. 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 Continue Demadex SCDs for DVT prophylaxis Heart healthy diet Full code I called her daughter Chioma on 11/20 and gave her update on her condition, status and the treatment plan. Documented By: Danilo Drummond MD 11/22/22 0849 Signed By: <Electronically signed by Danilo Drummond MD> 11/22/22 0850 [facility] Work Phone: [phone] 339-843908-15-2023 Progress note Author Akhil Olivarez [facility] November 21, 2022 2:54pm Note Date/Time November 21, 2022 2: 54pm [facility] [address] [place] [address] Cardiology Progress Note Signed Patient: Erin Canales MR#: [id number] : 1935 Acct:[id number] Age/Sex: 87 / F Adm Date: 3 Loc: Room: [address] [place] [address] Type: ADM IN Attending Dr: Danilo Drummond MD Copies to: ~ Date of Service: 11/21/2022 Subjective Principal diagnosis: New onset angina Interval history: Patient underwent coronary angiography today. Findings were favorable and no adhoc intervention was necessary. No progression of disease or stent thrombosis. Had a long detailed discussion with the patient, again, regarding her severe sick sinus syndrome and bradycardia. It is mildly symptomatic but also will pose a significant barrier to delivery of healthcare because of profound bradycardia arrhythmia. Because of this we have discussed pacemaker implantation. The rationale for doing so and its indications as well as procedural technique risk benefits and alternatives were discussed and she agrees and consents to the procedure. I will schedule for tomorrow. Exam Physical Exam Vital Signs: Temp Pulse Resp BP Pulse Ox O2 Del Method 97.6 F 54 L 16 147/70 H 97 Room Air 11/21/22 13:47 11/21/22 13:47 11/21/22 13:47 11/21/22 13:47 11/21/22 13:47 11/21/22 13:47 HEENT Head: normal to inspection Ears: hearing grossly normal bilaterally Nose: external nose normal and nares normal Face and sinus: normal facial exam Mouth: oral mucosae normal and tongue normal Eyes Conjunctivae: conjunctivae normal Sclera: sclerae normal Neck Neck: normal visual inspection Carotids: normal carotid upstroke Lymphatic: no lymphadenopathy noted Chest Chest palpation & inspection: normal inspection of the chest Resp Effort & Inspection: normal respiratory effort Auscultation: clear to auscultation bilaterally Cardio Rate: regular rate Rhythm: regular rhythm Heart Sounds: S1 normal and S2 normal GI Inspection: normal to inspection Palpation: soft Skin General: no rashes or lesions noted Neuro General: patient alert, patient awake and patient oriented x3 Cognition: normal cognition Motor: muscle tone normal throughout Sensory Exam: no sensory deficits noted Objective Labs 11/20/22 06:38 11/21/22 06:23 Labs: Laboratory Results - last 24 hr 11/21/22 11/21/22 06:23 06:23 PT 17.7 H D INR 1.5 Potassium 4.3 A&P - Cardiology (1) Sinus bradycardia: Assessment/Problem Details: Symptomatic bradycardia. We discussed pacemaker implantation and she wishes to proceed. We will schedule for tomorrow. Code(s): R00.1 - Bradycardia, unspecified Status: Acute Plan Permanent dual-chamber pacemaker implantation tomorrow. Documented By: Akhil Olivarez MD [id number] Signed By: <Electronically signed by MD Akhil Olivarez> 11/21/224 [facility] Work Phone: 1(225) 721-450208-15-2023 Progress note Author Danilo Drummond [facility] November 21, 2022 9:06am Note Date/Time November 21, 2022 9: 06am [facility] [address] [place] [address] Hospitalist Progress Note Signed Patient: Erin Canales MR#: [id number] : 1935 Acct:[id number] Age/Sex: 87 / F Adm Date: 3 Loc: Room: 0Q6002-6 Type: ADM IN Attending Dr: Danilo Drummond MD Copies to: ~ Date of Service: 11/21/2022 Subjective Subjective Narrative: Uneventful night. No chest pain. No abdominal pain. No shortness of breath Exam Physical Exam Vital Signs: Temp Pulse Resp BP Pulse Ox O2 Del Method 97.5 F L 47 L 16 160/70 H 98 Room Air 11/21/22 08:00 11/21/22 08:00 11/21/22 08:00 11/21/22 08:00 11/21/22 08:00 11/21/22 08:00 Narrative: [pt is awake and alert. oriented to place, time and person HEENT: [place] conjunctiva and NL buccal mucosa Neck: Supple, no tenderness Endocrine: No Thyromegaly. Vascular: No JVD or carotid bruit. Lymphatic: No cervical lymphadenopathy. Chest: CTA no DTP. Heart bradycardia, heart rate is in the 40s Abd: Soft, no tenderness, no rebound and no rigidity. Increase abd girth therefore clinically I could not exclude the possibility of intra abd mass or organomegaly. LE: No cyanosis or clubbing, no varices or edema. Neuro: A A O. Nl speech, comprehension and attention. Nl and symetrical motor and tone examination through out. Left facial palsy, chronic []] Objective Lab Results 11/20/22 06:38 11/20/22 06:38 Meds Allergies and Active Meds Allergies ibuprofen [From Motrin] Allergy (Verified 11/17/22 18:01) Hives Active Meds: Active Medications Generic Name Dose Route Start Last Admin Trade Name Freq PRN Reason Stop Dose Admin Acetaminophen 1,000 mg 11/20/22 08:04 Acetaminophen 500 Mg Tablet PO 11/17/23 21:46 Q8H PRN Pain Al Hydrox/Mg Hydrox/Simethicone 30 ml 11/17/22 21:47 Mag Hydrox/Al Hydrox/Simeth 30 Ml Udc PO 11/17/23 21:46 Q4H PRN Epigastric distress (Non-Card) Amiodarone HCl 100 mg 11/20/22 09:00 11/20/22 08:10 Amiodarone 100 Mg Tablet PO 11/20/23 08:59 Not Given DAILY JOHN Aspirin 81 mg 11/19/22 09:00 11/21/22 07:33 Aspirin 81 Mg Tab.Chew PO 11/19/23 08:59 81 mg DAILY JOHN Administration Clopidogrel Bisulfate 75 mg 11/18/22 09:00 11/21/22 07:33 Clopidogrel Bisulfate 75 Mg Tablet PO 11/18/23 08:59 75 mg DAILY JOHN Administration Docusate Sodium 100 mg 11/17/22 21:47 Docusate 100 Mg Capsule PO 11/17/23 21:46 QHS PRN Constipation Lactated Ringer's 1,000 mls @ 50 mls/hr 11/20/22 23:00 11/20/22 23:15 Lactated Ringers IV 11/21/22 18:59 50 mls/hr .Q20H JOHN Administration Isosorbide Mononitrate 60 mg 11/18/22 09:00 11/20/22 08:11 Isosorbide Mononitrate 24hr Er 60 Mg Tab.Er.24h PO 11/18/23 08:59 Not Given DAILY JOHN Lisinopril 10 mg 11/18/22 09:00 11/20/22 08:11 Lisinopril 10 Mg Tablet PO 11/18/23 08:59 Not Given DAILY JOHN Nitroglycerin 0.4 mg 11/17/22 21:47 Nitroglycerin 0.4 Mg Tab.Subl SUBLINGUAL 11/17/23 21:46 Q5M PRN Chest Pain Ondansetron HCl 4 mg 11/17/22 21:47 Ondansetron 4 Mg/2 Ml Vial IV-PUSH 11/17/23 21:46 Q6H PRN Nausea And Vomiting Potassium Chloride 40 meq 11/20/22 09:42 Potassium Chloride Er 20 Meq Tab.Er.Prt PO STAT PRN Hypokalemia Sodium Chloride 0 ml 11/17/22 18:00 Sodium Chloride 0.9 % 10 Ml Syringe IV-PUSH 11/17/23 17:59 PRN PRN Flush Sodium Chloride 0 ml 11/17/22 21:47 Sodium Chloride 0.9 % 10 Ml Syringe IV-PUSH 11/17/23 21:46 PRN PRN Flush Sodium Chloride 0 ml 11/20/22 09:42 Sodium Chloride 0.9 % 10 Ml Syringe IV-PUSH 11/20/23 09:41 PRN PRN Flush Torsemide 10 mg 11/20/22 08:30 11/21/22 07:30 Torsemide 10 Mg Tablet PO 11/20/23 08:29 Not Given DAILY@0800 JOHN Tramadol HCl 50 mg 11/17/22 21:47 Tramadol 50 Mg Tablet PO 05/16/23 21:46 Q6H PRN Moderate Pain A&P - Hospitalist Assessment/Plan (1) Chest pain: (2) History of heart artery stent: (3) CAD (coronary artery disease): (4) Paroxysmal atrial fibrillation: (5) Hyponatremia: (6) Sinus bradycardia: (7) Hypertension: Plan Chest pain with history of CAD and 6 coronary stents Plan for cardiac cath this a.m.. INR is 1.5. Chest pain-free over the last 24 hours Continue aspirin and Plavix. Patient is on Coumadin for Paroxysmal atrial fibrillation associated with bradycardia suspect sick sinus In sinus rhythm, hold Coumadin, amiodarone has been changed to 100 mg daily. Consideration for pacemaker indication insertion to be addressed by cardiology team Hyponatremia Improved, could be caused by subclinical hypothyroidism. TSH is slightly elevated but T4 is normal. Consider initiation of thyroid replacement therapy Subclinical hypothyroidism Amiodarone has been changed to 100 mg daily. TSH is elevated suggestive of subclinical hypothyroidism. T4 is normal. Her TSH elevation could be caused byamiodarone. Repeat TSH in 4 to 6 weeks and consider initiation of thyroid replacement therapy specifically if T4 drops Hypertension Stable. Continue lisinopril. 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 Continue Demadex SCDs for DVT prophylaxis Heart healthy diet Full code I called her daughter Chioma on 11/20 and gave her update on her condition, status and the treatment plan. Documented By: Danilo Drummond MD 11/21/22902 Signed By: <Electronically signed by Danilo Drummond MD> 11/21/22905 [facility] Work Phone: [phone]) 733-794208-14-2023 Progress note Author Danilo Drummond [facility] November 20, 2022 1:09pm Note Date/Time November 20, 2022 1: 06pm [facility] [address] [place] [address] Progress Note Signed Patient: Erin Canales MR#: [id number] : 1935 Acct:[id number] Age/Sex: 87 / F Adm Date: 3 Loc: Room: [address] [place] [address] Type: ADM IN Attending Dr: Danilo Drummond MD Copies to: ~ Date of Service: 11/20/2022 Progress Narrative Note PROGRESS NOTE Progress Note: I called her dtr Betty and gave her update on condition, status and tx plan. i answered all of her questions. She asked if she would qualify for pacemaker. I told her that I would leave it up to Dr Mg to decide what needs to be done. Documented By: Danilo Drummond MD 11/20/22 9223 Signed By: <Electronically signed by Danilo Drummond MD> 11/20/22 9232 [facility] Work Phone: 1(424) 698-265908-14-2023 Progress note Author Akhil Olivarez [facility] November 20, 2022 12:36pm Note Date/Time November 20, 2022 12 :36pm [facility] [address] [place] [address] Cardiology Progress Note Signed Patient: Erin Canales MR#: [id number] : 1935 Acct:[id number] Age/Sex: 87 / F Adm Date: 3 Loc: Room: [address] [place] [address] Type: ADM IN Attending Dr: Danilo Drummond MD Copies to: ~ Date of Service: 11/20/2022 Subjective Principal diagnosis: New onset angina Interval history: Patient feeling about the same. Unfortunately I failed to recognize that the patient was on warfarin therapy with a therapeutic INR. I do not interrupt warfarin and time will provide vitamin K in a timely fashion, and hence her coronary angiogram cannot be performed today. He has been rescheduled for tomorrow. Of also had a long detailed discussion with her and her daughter regarding her bradycardia arrhythmia. It may be mildly symptomatic but her greater concern isthat it will create a barrier to the delivery of subsequent care. She is anticipating and are planning a rather extensive plastic surgery on her face forher Alvarado's palsy and ocular problems. My concern is the bradycardia arrhythmia may prohibit having the procedure done, and she is at significant risk for cancellation by anesthesia. Because of this I recommend serious consideration ofpermanent pacemaker implantation. We will discuss the matter tomorrow after herangiogram has been completed. Exam Physical Exam Vital Signs: Temp Pulse Resp BP Pulse Ox O2 Del Method 97.5 F L 54 L 18 168/73 H 98 Room Air 11/20/22 11:53 11/20/22 11:53 11/20/22 11:53 11/20/22 11:53 11/20/22 11:53 11/20/22 11:53 HEENT Head: normal to inspection Ears: hearing grossly normal bilaterally Nose: external nose normal and nares normal Face and sinus: normal facial exam Mouth: oral mucosae normal and tongue normal Eyes Conjunctivae: conjunctivae normal Sclera: sclerae normal Neck Neck: normal visual inspection Carotids: normal carotid upstroke Lymphatic: no lymphadenopathy noted Chest Chest palpation & inspection: normal inspection of the chest Resp Effort & Inspection: normal respiratory effort Auscultation: clear to auscultation bilaterally Cardio Rate: bradycardic Rhythm: regular rhythm GI Inspection: normal to inspection Palpation: soft Skin General: no rashes or lesions noted Objective Labs 11/20/22 06:38 11/20/22 06:38 Labs: Laboratory Results - last 24 hr 11/20/22 11/20/22 11/20/22 06:38 06:38 06:38 Corrected WBC 5.3 Uncorrected WBC Count 5.3 RBC 4.09 Hgb 13.1 Hct 39.3 MCV 96.1 MCH 32.0 MCHC 33.4 RDW 14.6 Plt Count 167 MPV 7.6 Neut % (Auto) 65.5 Lymph % (Auto) 21.8 Eaton % (Auto) 9.8 Eos % (Auto) 2.0 Baso % (Auto) 0.9 Nucleat RBC Rel Count 0.1 Neut # (Auto) 3.5 Lymph # (Auto) 1.2 [place] # (Auto) 0.5 Eos # (Auto) 0.1 Baso # (Auto) 0.0 PT 38.7 H INR 3.4 PHA Creatinine Clear 38.40 Sodium 130 L Potassium 4.2 Chloride 99 Carbon Dioxide 23.3 Anion Gap 11.9 BUN 19 Creatinine 1.06 Est GFR (CKD-EPI) 50.528 Glucose 105 H Calcium 8.4 L Free T4 11/20/22 06:38 Corrected WBC Uncorrected WBC Count RBC Hgb Hct MCV MCH MCHC RDW Plt Count MPV Neut % (Auto) Lymph % (Auto) [place] % (Auto) Eos % (Auto) Baso % (Auto) Nucleat RBC Rel Count Neut # (Auto) Lymph # (Auto) [place] # (Auto) Eos # (Auto) Baso # (Auto) PT INR PHA Creatinine Clear Sodium Potassium Chloride Carbon Dioxide Anion Gap BUN Creatinine Est GFR (CKD-EPI) Glucose Calcium Free T4 0.68 A&P - Cardiology (1) Angina pectoris: Assessment/Problem Details: Patient has known complex coronary disease and recent intervention. She gives, though, a very convincing description of new onset angina and I am concerned there may be progression of disease or potentially stent related issues that necessitate reassessment. She will do so with Dr. Michel tomorrow. Code(s): I20.9 - Angina pectoris, unspecified Status: Acute (2) Sinus bradycardia: Assessment/Problem Details: Bradycardia arrhythmia as above. I believe we will create a barrier to care andit also appears that it may be mildly symptomatic. Because of this we will entertain pacemaker implantation in the near future. Code(s): R00.1 - Bradycardia, unspecified Status: Acute Plan Today, provide parenteral and enteral vitamin K. Coags in the morning and hopefully angiography with Dr. Michel as planned. Documented By: Akhil Olivarez MD [id number] Signed By: <Electronically signed by MD Akhil Olivarez> 11/20/22 1236 [facility] Work Phone: [phone] Progress note Author W Anand [facility] November 20, 2022 11:23am Note Date/Time November 20, 2022 11 :21am [facility] [address] [place] [address] Cardiology Progress Note Signed Patient: Erin Canales MR#: [id number] : 1935 Acct:[id number] Age/Sex: 87 / F Adm Date: 3 Loc: Room: [address] [place] [address] Type: ADM IN Attending Dr: Danilo Drummond MD Copies to: ~ Date of Service: 11/20/2022 Subjective Principal diagnosis: New onset angina Interval history: Patient denies anginal discomfort through the night. She was noted to be bradycardic. Sinus bradycardia, no evidence of high-grade heart block. Minimally symptomatic. I advised the patient that her sinus bradycardia could cause activity and her lifestyle limiting fatigue. Obviously her advanced age and physical condition makes it difficult to ascertain whether the bradycardia arrhythmia is a component. Of greater concern is the bradycardia and his potential for unnecessary cancellation of her upcoming facial surgery at a tertiary care center. I advised her that we may be obligated to consider pacemaker implantation to improve activity tolerance would also facilitate health care under the direction of other providers who may be reluctant to implement anesthesia with resting bradycardia arrhythmias. Interim evaluation 11/20/2022: Remains stable, pain-free, INR is elevated at 3.4,troponins unremarkable. Patient was scheduled for cardiac catheterization todaybased on symptomatic complaints, with recent history of coronary intervention. Catheterization will be canceled until INR is less than 2.0. Discussed with patient, and general cardiology. Patient can eat this morning, will receive vitamin K today and tomorrow and repeat INR in the morning Exam Physical Exam Vital Signs: Temp Pulse Resp BP Pulse Ox O2 Del Method 97.5 F L 44 L 18 154/70 H 97 Room Air 11/20/22 08:00 11/20/22 08:00 11/20/22 08:00 11/20/22 08:00 11/20/22 08:00 11/20/22 08:00 Objective Labs 11/20/22 06:38 11/20/22 06:38 Labs: Laboratory Results - last 24 hr 11/20/22 11/20/22 11/20/22 06:38 06:38 06:38 Corrected WBC 5.3 Uncorrected WBC Count 5.3 RBC 4.09 Hgb 13.1 Hct 39.3 MCV 96.1 MCH 32.0 MCHC 33.4 RDW 14.6 Plt Count 167 MPV 7.6 Neut % (Auto) 65.5 Lymph % (Auto) 21.8 Eaton % (Auto) 9.8 Eos % (Auto) 2.0 Baso % (Auto) 0.9 Nucleat RBC Rel Count 0.1 Neut # (Auto) 3.5 Lymph # (Auto) 1.2 Eaton # (Auto) 0.5 Eos # (Auto) 0.1 Baso # (Auto) 0.0 PT 38.7 H INR 3.4 PHA Creatinine Clear 38.40 Sodium 130 L Potassium 4.2 Chloride 99 Carbon Dioxide 23.3 Anion Gap 11.9 BUN 19 Creatinine 1.06 Est GFR (CKD-EPI) 50.528 Glucose 105 H Calcium 8.4 L Free T4 11/20/22 06:38 Corrected WBC Uncorrected WBC Count RBC Hgb Hct MCV MCH MCHC RDW Plt Count MPV Neut % (Auto) Lymph % (Auto) Eaton % (Auto) Eos % (Auto) Baso % (Auto) Nucleat RBC Rel Count Neut # (Auto) Lymph # (Auto) Eaton # (Auto) Eos # (Auto) Baso # (Auto) PT INR PHA Creatinine Clear Sodium Potassium Chloride Carbon Dioxide Anion Gap BUN Creatinine Est GFR (CKD-EPI) Glucose Calcium Free T4 0.68 A&P - Cardiology (1) Sinus bradycardia: Assessment/Problem Details: Sinus bradycardia. It may be symptomatic. It also creates a significant barrier to the effective delivery of healthcare in other settings. Code(s): R00.1 - Bradycardia, unspecified Status: Acute (2) Angina pectoris: Assessment/Problem Details: Patient has a classic description of anginal symptomatology unsolicited. We areobligated to entertain possible abrupt progression of disease and I recommend reassessment angiographically. Code(s): I20.9 - Angina pectoris, unspecified Status: Acute (3) CAD (coronary artery disease): Assessment/Problem Details: With recent intervention. Code(s): I25.10 - Atherosclerotic heart disease of [place] coronary artery without angina pectoris Status: Chronic Plan Cardiac cath Sunday. Documented By: Pearl Michel DO 11/20/221119 Signed By: <Electronically signed by Pearl Michel DO> 11/20/221122 [facility] Work Phone: [phone]) [phone] Progress note Author Danilo Drummond [facility] November 20, 2022 8:07am Note Date/Time November 20, 2022 8: 07am [facility] [address] [place] [address] Hospitalist Progress Note Signed Patient: Erin Canales MR#: [id number] : 1935 Acct:[id number] Age/Sex: 87 / F Adm Date: 3 Loc: 3T Room: [address] [place] [address] Type: ADM IN Attending Dr: Danilo Drummond MD Copies to: ~ Date of Service: 11/20/2022 Subjective Subjective Narrative: Following up on the patient. First time. No chest pain palpitation. No abdominal pain. No nausea or vomiting Exam Physical Exam Vital Signs: Temp Pulse Resp BP Pulse Ox O2 Del Method 97.9 F 57 L 18 130/64 97 Room Air 11/20/22 06:00 11/20/22 06:00 11/20/22 06:00 11/20/22 06:00 11/20/22 06:00 11/20/22 06:00 Narrative: [pt is awake and alert. oriented to place, time and person HEENT: [place] conjunctiva and NL buccal mucosa Neck: Supple, no tenderness Endocrine: No Thyromegaly. Vascular: No JVD or carotid bruit. Lymphatic: No cervical lymphadenopathy. Chest: CTA no DTP. Heart bradycardia, heart rate is in the 50s Abd: Soft, no tenderness, no rebound and no rigidity. Increase abd girth therefore clinically I could not exclude the possibility of intra abd mass or organomegaly. LE: No cyanosis or clubbing, no varices or edema. Neuro: A A O. Nl speech, comprehension and attention. Nl and symetrical motor and tone examination through out. Left facial palsy, chronic []] Objective Lab Results 11/20/22 06:38 11/20/22 06:38 Meds Allergies and Active Meds Allergies ibuprofen [From Motrin] Allergy (Verified 11/17/22 18:01) Hives Active Meds: Active Medications Generic Name Dose Route Start Last Admin Trade Name Richiq PRN Reason Stop Dose Admin Acetaminophen 1,000 mg 11/20/22 08:04 Acetaminophen 500 Mg Tablet PO 11/17/23 21:46 Q8H PRN Pain Al Hydrox/Mg Hydrox/Simethicone 30 ml 11/17/22 21:47 Mag Hydrox/Al Hydrox/Simeth 30 Ml Udc PO 11/17/23 21:46 Q4H PRN Epigastric distress (Non-Card) Amiodarone HCl 100 mg 11/20/22 09:00 Amiodarone 100 Mg Tablet PO 11/20/23 08:59 DAILY JOHN Aspirin 81 mg 11/19/22 09:00 11/20/22 07:36 Aspirin 81 Mg Tab.Chew PO 11/19/23 08:59 81 mg DAILY JOHN Administration Clopidogrel Bisulfate 75 mg 11/18/22 09:00 11/20/22 07:36 Clopidogrel Bisulfate 75 Mg Tablet PO 11/18/23 08:59 75 mg DAILY JOHN Administration Docusate Sodium 100 mg 11/17/22 21:47 Docusate 100 Mg Capsule PO 11/17/23 21:46 QHS PRN Constipation Lactated Ringer's 1,000 mls @ 75 mls/hr 11/20/22 08:15 Lactated Ringers IV 11/20/22 21:34 .[id number] [facility] Isosorbide Mononitrate 60 mg 11/18/22 09:00 11/19/22 10:44 Isosorbide Mononitrate 24hr Er 60 Mg Tab.Er.24h PO 11/18/23 08:59 60 mg DAILY JOHN Administration Lisinopril 10 mg 11/18/22 09:00 11/19/22 10:44 Lisinopril 10 Mg Tablet PO 11/18/23 08:59 10 mg DAILY JOHN Administration Nitroglycerin 0.4 mg 11/17/22 21:47 Nitroglycerin 0.4 Mg Tab.Subl SUBLINGUAL 11/17/23 21:46 Q5M PRN Chest Pain Ondansetron HCl 4 mg 11/17/22 21:47 Ondansetron 4 Mg/2 Ml Vial IV-PUSH 11/17/23 21:46 Q6H PRN Nausea And Vomiting Sodium Chloride 0 ml 11/17/22 18:00 Sodium Chloride 0.9 % 10 Ml Syringe IV-PUSH 11/17/23 17:59 PRN PRN Flush Sodium Chloride 0 ml 11/17/22 21:47 Sodium Chloride 0.9 % 10 Ml Syringe IV-PUSH 11/17/23 21:46 PRN PRN Flush Torsemide 10 mg 11/21/22 08:00 Torsemide 10 Mg Tablet PO 11/21/23 07:59 DAILY@0800 [facility] Tramadol HCl 50 mg 11/17/22 21:47 Tramadol 50 Mg Tablet PO 05/16/23 21:46 Q6H PRN Moderate Pain A&P - Hospitalist Assessment/Plan (1) Chest pain: (2) History of heart artery stent: (3) CAD (coronary artery disease): (4) Paroxysmal atrial fibrillation: (5) Hyponatremia: Plan Chest pain with history of CAD and 6 coronary stents Plan for cardiac cath this AM Chest pain-free over the last 24 hours Paroxysmal atrial fibrillation In sinus rhythm, hold Coumadin, amiodarone has been changed to 100 mg daily. Hyponatremia Improved Bradycardia Amiodarone has been changed to 100 mg daily. TSH is elevated suggestive of subclinical hypothyroidism. I requested T4 Hypertension Stable. Continue lisinopril. 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 Bilateral lower extremities edema Ultrasound rule out DVT SCDs for DVT prophylaxis Heart healthy diet Full code Documented By: Danilo Drummond MD 11/20/22 08 Signed By: <Electronically signed by Danilo Drummond MD> 11/20/22 0807 [facility] Work Phone: 1(878) 251-711008-13-2023 Progress note Author Ailyn Meng [facility] November 19, 2022 3:01pm Note Date/Time November 19, 2022 11 :19am [facility] [address] [place] [address] Hospitalist Progress Note Signed Patient: Erin Canales MR#: [id number] : 1935 Acct:[id number] Age/Sex: 87 / F Adm Date: 3 Loc: Room: [address] [place] [address] Type: ADM INOo Attending Dr: Ailyn Meng MD Copies to: ~ Date of Service: 11/19/2022 Subjective Subjective Narrative: Patient has been seen and examined today. Physical exam: General -awake, alert, oriented ?3, not in acute distress Cardiovascular -S1 with S2, no murmurs, no rubs, no gallops Pulmonary - clear to auscultation bilaterally Gastrointestinal - abdomen is soft, nondistended, nontender, bowel sounds positive, there is no rigidity, no rebound Extremities -no edema Neurological -chronic left-sided Alvarado's palsy Exam Physical Exam Vital Signs: Temp Pulse Resp BP Pulse Ox O2 Del Method 36.6 C 43 L 16 135/89 97 Room Air 11/19/22 07:32 11/19/22 07:32 11/19/22 07:32 11/19/22 07:32 11/19/22 07:32 11/19/22 07:32 Objective Lab Results 11/18/22 07:38 11/19/22 06:28 Meds Allergies and Active Meds Allergies ibuprofen [From Motrin] Allergy (Verified 11/17/22 18:01) Hives Active Meds: Active Medications Generic Name Dose Route Start Last Admin Trade Name Freq PRN Reason Stop Dose Admin Acetaminophen 1,000 mg 11/17/22 21:47 Acetaminophen 500 Mg Tablet PO 11/17/23 21:46 Q6H PRN Mild Pain Al Hydrox/Mg Hydrox/Simethicone 30 ml 11/17/22 21:47 Mag Hydrox/Al Hydrox/Simeth 30 Ml Udc PO 11/17/23 21:46 Q4H PRN Epigastric distress (Non-Card) Amiodarone HCl 100 mg 11/18/22 09:00 11/19/22 10:44 Amiodarone 100 Mg Tablet PO 11/18/23 08:59 100 mg BID JOHN Administration Aspirin 81 mg 11/19/22 09:00 11/19/22 08:37 Aspirin 81 Mg Tab.Chew PO 11/19/23 08:59 81 mg DAILY JOHN Administration Clopidogrel Bisulfate 75 mg 11/18/22 09:00 11/19/22 08:38 Clopidogrel Bisulfate 75 Mg Tablet PO 11/18/23 08:59 75 mg DAILY JOHN Administration Docusate Sodium 100 mg 11/17/22 21:47 Docusate 100 Mg Capsule PO 11/17/23 21:46 QHS PRN Constipation Isosorbide Mononitrate 60 mg 11/18/22 09:00 11/19/22 10:44 Isosorbide Mononitrate 24hr Er 60 Mg Tab.Er.24h PO 11/18/23 08:59 60 mg DAILY JOHN Administration Lisinopril 10 mg 11/18/22 09:00 11/19/22 10:44 Lisinopril 10 Mg Tablet PO 11/18/23 08:59 10 mg DAILY JOHN Administration Nitroglycerin 0.4 mg 11/17/22 21:47 Nitroglycerin 0.4 Mg Tab.Subl SUBLINGUAL 11/17/23 21:46 Q5M PRN Chest Pain Ondansetron HCl 4 mg 11/17/22 21:47 Ondansetron 4 Mg/2 Ml Vial IV-PUSH 11/17/23 21:46 Q6H PRN Nausea And Vomiting Sodium Chloride 0 ml 11/17/22 18:00 Sodium Chloride 0.9 % 10 Ml Syringe IV-PUSH 11/17/23 17:59 PRN PRN Flush Sodium Chloride 0 ml 11/17/22 21:47 Sodium Chloride 0.9 % 10 Ml Syringe IV-PUSH 11/17/23 21:46 PRN PRN Flush Tramadol HCl 50 mg 11/17/22 21:47 Tramadol 50 Mg Tablet PO 05/16/23 21:46 Q6H PRN Moderate Pain A&P - Hospitalist Assessment/Plan (1) Chest pain: (2) History of heart artery stent: (3) CAD (coronary artery disease): (4) Paroxysmal atrial fibrillation: (5) Hyponatremia: Plan Chest pain with history of CAD and 6 coronary stents Plan for cardiac cath in a.m. Paroxysmal atrial fibrillation In sinus rhythm, hold Coumadin Hyponatremia Improved SCDs for DVT prophylaxis Heart healthy diet Full code Documented By: Ailyn Meng MD 11/19/22 111 Signed By: <Electronically signed by Ailyn Meng MD> 11/19/22 150 [facility] Work Phone: [phone]) [phone] Progress note Author Akhil Olivarez [facility] November 19, 2022 11:09am Note Date/Time November 19, 2022 11 :09am [facility] [address] [place] [address] Cardiology Progress Note Signed Patient: Erin Canales MR#: [id number] : 1935 Acct:[id number] Age/Sex: 87 / F Adm Date: 3 Loc: Room: [address] [place] [address] Type: ADM INOo Attending Dr: Ailyn Meng MD Copies to: ~ Date of Service: 11/19/2022 Subjective Principal diagnosis: New onset angina Interval history: Patient denies anginal discomfort through the night. She was noted to be bradycardic. Sinus bradycardia, no evidence of high-grade heart block. Minimally symptomatic. I advised the patient that her sinus bradycardia could cause activity and her lifestyle limiting fatigue. Obviously her advanced age and physical condition makes it difficult to ascertain whether the bradycardia arrhythmia is a component. Of greater concern is the bradycardia and his potential for unnecessary cancellation of her upcoming facial surgery at a tertiary care center. I advised her that we may be obligated to consider pacemaker implantation to improve activity tolerance would also facilitate health care under the direction of other providers who may be reluctant to implement anesthesia with resting bradycardia arrhythmias. Exam Physical Exam Vital Signs: Temp Pulse Resp BP Pulse Ox O2 Del Method 97.8 F 43 L 16 135/89 97 Room Air 11/19/22 07:32 11/19/22 07:32 11/19/22 07:32 11/19/22 07:32 11/19/22 07:32 11/19/22 07:32 HEENT Head: normal to inspection Ears: hearing grossly normal bilaterally Nose: external nose normal and nares normal Face and sinus: normal facial exam Mouth: oral mucosae normal and tongue normal Eyes Conjunctivae: conjunctivae normal Sclera: sclerae normal Neck Neck: normal visual inspection Carotids: normal carotid upstroke Lymphatic: no lymphadenopathy noted Chest Chest palpation & inspection: normal inspection of the chest Resp Effort & Inspection: normal respiratory effort Auscultation: clear to auscultation bilaterally Cardio Rate: bradycardic Rhythm: regular rhythm GI Inspection: normal to inspection Palpation: soft Skin General: no rashes or lesions noted Objective Labs 11/18/22 07:38 11/19/22 06:28 Labs: Laboratory Results - last 24 hr 11/18/22 11/19/22 11/19/22 07:38 06:28 06:28 PT 53.0 H INR 4.6 PHA Creatinine Clear 43.30 Sodium 130 L Potassium 4.0 Chloride 97 L Carbon Dioxide 27.7 Anion Gap 9.3 BUN 18 Creatinine 0.94 Est GFR (CKD-EPI) 58.364 Glucose 105 H Calcium 8.5 L Magnesium 2.1 TSH 3rd Generation 7.98 H A&P - Cardiology (1) Sinus bradycardia: Assessment/Problem Details: Sinus bradycardia. It may be symptomatic. It also creates a significant barrier to the effective delivery of healthcare in other settings. Code(s): R00.1 - Bradycardia, unspecified Status: Acute (2) Angina pectoris: Assessment/Problem Details: Patient has a classic description of anginal symptomatology unsolicited. We areobligated to entertain possible abrupt progression of disease and I recommend reassessment angiographically. Code(s): I20.9 - Angina pectoris, unspecified Status: Acute (3) CAD (coronary artery disease): Assessment/Problem Details: With recent intervention. Code(s): I25.10 - Atherosclerotic heart disease of [place] coronary artery without angina pectoris Status: Chronic Plan Cardiac cath Sunday. Documented By: Akhil Olivarez MD [id number] Signed By: <Electronically signed by MD Akhil Olivarez> 11/19/22 1109 [facility] Work Phone: [phone]) [phone] Consult note Author Akhil Olivarez [facility] November 18, 2022 4:11pm Note Date/Time November 18, 2022 4: 11pm [facility] [address] [place] [address] Cardiology Consult Note Signed Patient: Erin Canales MR#: [id number] : 1935 Acct:[id number] Age/Sex: 87 / F Adm Date: 3 Loc: Room: [address] [place] [address] Type: ADM INOo Attending Dr: Ailyn Meng MD Copies to: MD Ailyn Sparks MD William Patrick McGuinn, MD~ Cardiology HPI History of Present Illness Consult Date: 11/18/22 Reason for Consult: New onset angina HPI: Ms. Canales is a 87 year old female seen for the above She is an individual familiar to me. She underwent angiographic evaluation several weeks ago for anginal symptomatology and abnormal stress test and underwent successful circumflex intervention. 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 She states that following her coronary intervention she was well. She had no symptoms until several days ago when she started to experience angina with physical activity. This is distinctly different from before and may suggest progression of disease. I explained this to her and her daughter in detail. Review of Systems Review of Systems All other systems reviewed & are negative unless noted below or in HPI Constitutional Constitutional: Reports system reviewed and no additional complaints, except as documented Eyes Eyes: Reports system reviewed and no additional complaints, except as documented ENT Ears, Nose, Mouth, and Throat: Reports system reviewed and no additional complaints, except as documented Cardiovascular Cardiovascular: Reports as per HPI Respiratory Respiratory: Reports system reviewed and no additional complaints, except as documented Gastrointestinal Gastrointestinal: Reports system reviewed and no additional complaints, except as documented Genitourinary Genitourinary: Reports system reviewed and no additional complaints, except as documented Musculoskeletal Musculoskeletal: Reports system reviewed and no additional complaints, except asdocumented Integumentary/Breasts Skin/Breast: Reports system reviewed and no additional complaints, except as documented Neurologic Neurologic: Reports system reviewed and no additional complaints, except as documented Psychiatric Psychiatric: Reports system reviewed and no additional complaints, except as documented Endocrine Endocrine: Reports system reviewed and no additional complaints, except as documented Hematologic/Lymphatic Hematologic/Lymphatic: Reports system reviewed and no additional complaints, except as documented Allergic/Immunologic Allergic/Immunologic: Reports system reviewed and no additional complaints, except as documented [facility] Medical History (HFpEF) heart failure with preserved ejection fraction Arthritis Back pain Cardiomyopathy Closed intertrochanteric fracture of left hip Coronary artery disease Gout Hearing impaired Hyperlipidemia Hypertension Left-sided Alvarado's palsy Paroxysmal atrial fibrillation Wears hearing aid in both ears Surgical History History of cardiac catheterization x5 stents History of carpal tunnel release History of eyelid surgery left eye History of orthopedic surgery pinning of left hip History of phacoemulsification of cataract of both eyes with intraocular lens implantation Family History Father CAD (coronary artery disease) Mother CAD (coronary artery disease) Brother Brain tumor Social History Smoking Status: Never smoker Substance Use Type: None Social History Comments: no tob no etoh mother dec heart dz father dec heart dz Meds Medications and Allergies Allergies ibuprofen [From Motrin] Allergy (Verified 11/17/22 18:01) Hives Home Medications apple cider vinegar 500 mg tablet 500 mg PO DAILY 11/26/19 [History Confirmed 11/17/22] calcium carbonate 600 mg calcium (1,500 mg) tablet (Calcium) 600 mg PO BID 11/26/19 [History Confirmed 11/17/22] cholecalciferol (vitamin D3) 50 mcg (2,000 unit) tablet (Vitamin D3) 50 mcg PO DAILY 11/26/19 [History Confirmed 11/17/22] omega 8-dtg-luj-fish oil 1,000 mg (120 mg-180 mg) capsule (Fish Oil) 1 cap PO DAILY 11/26/19 [History Confirmed 11/17/22] selenium 50 mcg tablet 100 mcg PO DAILY 11/26/19 [History Confirmed 11/17/22] vitamin E 268 mg (400 unit) capsule 800 unit PO DAILY 11/26/19 [History Confirmed 11/17/22] amiodarone 100 mg tablet 100 mg PO BID atrial fib 01/10/22 [History Confirmed 11/17/22] multivitamin 1 tab PO DAILY 01/10/22 [History Confirmed 11/17/22] acetaminophen 650 mg tablet,extended release 1,300 mg PO BID arthritic pain 09/22/22 [History Confirmed 11/17/22] ascorbic acid (vitamin C) 1,000 mg tablet (Vitamin C) 2,000 mg PO BID [id number]/16/23 [History Confirmed 11/17/22] aspirin 81 mg tablet,delayed release 81 mg PO 2XW 09/22/22 [History Confirmed 09/25/22] cartilage 40 mg-collagen II 10 mg-boron 5 mg-hyaluronate 3.3 mg tablet (Snowshoefood) 1 tab PO DAILY 09/22/22 [History Confirmed 11/17/22] isosorbide mononitrate 60 mg tablet,extended release 24 hr 60 mg PO DAILY 09/22/22 [History Confirmed 11/17/22] lisinopril 10 mg tablet 10 mg PO DAILY 09/22/22 [History Confirmed 11/18/22] nitroglycerin 0.4 mg sublingual tablet 0.4 mg sublingual DIRECTED PRN Chest Pain 09/22/22 [History Confirmed 11/17/22] torsemide 10 mg tablet 10 mg PO DAILY 09/22/22 [History Confirmed 11/17/22] warfarin 6 mg tablet 6 mg PO QMWF anticoagulation 09/22/22 [History Confirmed 11/17/22] white petrolatum-mineral oil 80 %-20 % eye ointment (Soothe Night Time Lubricant) 1 applic Eye-Left DAILY PRN Dry Eye(S) 09/22/22 [History Confirmed 11/17/22] clopidogrel 75 mg tablet (Plavix) 75 mg PO DAILY #90 tabs 09/25/22 [Rx Confirmed 11/17/22] cyanocobalamin (B12)-cobamamide 5,000 mcg-100 mcg sublingual lozenge (B12) 1 lozDAILY 09/25/22 [History Confirmed 09/25/22] nortriptyline 25 mg capsule 25 mg PO DAILY 09/25/22 [History Confirmed 09/25/22] warfarin 6 mg tablet See Rx Instructions .Route .COMPLEX 11/17/22 [History Confirmed 11/17/22] Exam Physical Exam Vital Signs: Temp Pulse Resp BP Pulse Ox O2 Del Method 97.9 F 45 L 18 144/67 H 96 Room Air 11/18/22 15:30 11/18/22 15:30 11/18/22 15:30 11/18/22 15:30 11/18/22 15:30 11/18/22 15:30 Eyes Conjunctivae: conjunctivae normal Sclera: sclerae normal Neck Neck: normal visual inspection Carotids: normal carotid upstroke Lymphatic: no lymphadenopathy noted Chest Chest palpation & inspection: normal inspection of the chest Resp Effort & Inspection: normal respiratory effort Auscultation: clear to auscultation bilaterally Cardio Rate: regular rate Rhythm: regular rhythm Heart Sounds: S1 normal and S2 normal GI Inspection: normal to inspection Palpation: soft Skin General: no rashes or lesions noted Neuro General: patient alert, patient awake and patient oriented x3 Cognition: normal cognition Motor: muscle tone normal throughout Sensory Exam: no sensory deficits noted Results Labs 11/18/22 07:38 11/18/22 07:38 Lab results: Cardiac Enzymes 11/17/22 11/17/22 Range/Units 18:44 18:44 Total Creatine Kinase 62 (30-223) U/L B-Natriuretic Peptide 249.0 H (5-100) pg/mL Lipids 11/18/22 Range/Units 07:38 Triglycerides 125 (0-149) mg/dL Cholesterol 154 (140-200) mg/dL HDL Cholesterol 50 (23-92) mg/dL Cholesterol/HDL Ratio 3.1 (<5.0) CBC 11/17/22 11/18/22 Range/Units 18:44 07:38 RBC 4.62 4.19 (3.60-5.00) X10E6/uL Hgb 14.8 13.4 (11.8-15.4) g/dL Hct 44.6 40.2 (34.0-46.4) % Plt Count 220 198 (150-450) x10E3/uL Neut # (Auto) 4.3 3.2 (1.8-7.7) x10E3/uL Lymph # (Auto) 1.0 1.2 (1.00-4.8) x10E3/uL Eaton # (Auto) 0.5 0.5 (0.0-0.8) x10E3/uL Eos # (Auto) 0.0 0.1 (0.0-0.45) x10E3/uL Baso # (Auto) 0.0 0.1 (0.0-0.2) x10E3/uL Comprehensive Metabolic Panel 11/17/22 11/18/22 Range/Units 18:44 07:38 Sodium 130 L 132 L (136-145) mmol/L Potassium 4.0 4.7 (3.5-5.1) mmol/L Chloride 94 L 97 L (98-107) mmol/L Carbon Dioxide 27.5 29.2 (21.0-31.0) mmol/L BUN 19 16 (7-25) mg/dL Creatinine 1.12 1.03 (0.60-1.20) mg/dL Glucose 132 H 103 H (70-100) mg/dL Calcium 9.5 8.9 (8.6-10.3) mg/dL Intake and Output 11/18/22 11/18/22 11/18/22 07:59 15:59 23:59 Intake Total 0 / 600 600 / 600 Balance 0 / 600 600 / 600 Intake: Oral 0 / 600 600 / 600 Other: # Unmeasured Voids 0 2 Weight 86.6 kg Date of Last Bowel Movement 11/17/22 Patient Weight 11/18/22 23:59 Weight 86.6 kg Lab 11/17/22 11/18/22 18:44 07:38 PT 42.9 H 52.3 H INR 3.7 4.5 APTT 46.9 H A&P - Cardiology (1) Angina pectoris: Assessment/Problem Details: Patient has new onset angina. I believe he should be evaluated angiographically. Explained this to her and her daughter and I recommend cardiac catheterization on Sunday. Code(s): I20.9 - Angina pectoris, unspecified (2) CAD (coronary artery disease): Assessment/Problem Details: With previous intervention in September. It is surprising that she has developed what appears to be classic anginal symptomatology after such a short period of time. Because she has an upcoming surgical procedure, though, I feel obligated to reassess for abrupt progression of coronary artery disease. Code(s): I25.10 - Atherosclerotic heart disease of [place] coronary artery without angina pectoris (3) Sinus bradycardia: Assessment/Problem Details: Patient noted the sinus bradycardia. Medication review demonstrates she is onlyon 100 mg of amiodarone per day. No other negative chronotropic. Because of this it appears there is no pharmacologic intervention we could do to make the bradycardia improved. I will discuss this with her. She does not have absoluteor concrete indications for pacemaker implantation but this will be discussed and explored. Code(s): R00.1 - Bradycardia, unspecified Plan Continue acute hospitalization until we can perform diagnostic coronary angiography on Sunday. Documented By: Akhil Olivarez MD [id number] Signed By: <Electronically signed by MD Akhil Olivarez> 11/18/22 1611 [facility] Work Phone: 1(373) 790-700908-12-2023 Progress note Author Ailyn Meng [facility] November 18, 2022 1:17pm Note Date/Time November 18, 2022 12 :46pm [facility] [address] [place] [address] Hospitalist Progress Note Signed Patient: Erin Canales MR#: [id number] : 1935 Acct:[id number] Age/Sex: 87 / F Adm Date: 3 Loc: Room: [address] [place] [address] Type: ADM INOo Attending Dr: Ailyn Meng MD Copies to: ~ Date of Service: 11/18/2022 Subjective Subjective Narrative: Pt is awake and alert laying comfortable in the bed upon me walking into the room. No acute events overnight. States that she does not currently have any chest pain while laying in the bed at rest. She really has no concerns at this time. She is tolerating meals well. States if she were to get up and walk around though, she would expect her chest pain to recur. Exam Physical Exam Vital Signs: Temp Pulse Resp BP Pulse Ox O2 Del Method 97.5 F L 48 L 16 116/67 96 Room Air 11/18/22 11:09 11/18/22 11:09 11/18/22 11:09 11/18/22 11:09 11/18/22 11:11/18/22 11:09 Narrative: General: Awake, A&O x 3, pleasant, cooperative, well nourished Eyes: No scleral icterus Neck: Supple Cardio: RRR, no murmurs, rubs or gallops Respiratory: CTAB, no wheezes rhonchi or rales. 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 Mood congruent Objective Lab Results 11/18/22 07:38 11/18/22 07:38 Meds Allergies and Active Meds Allergies ibuprofen [From Motrin] Allergy (Verified 11/17/22 18:01) Hives Active Meds: Active Medications Generic Name Dose Route Start Last Admin Trade Name Freq PRN Reason Stop Dose Admin Acetaminophen 1,000 mg 11/17/22 21:47 Acetaminophen 500 Mg Tablet PO 11/17/23 21:46 Q6H PRN Mild Pain Al Hydrox/Mg Hydrox/Simethicone 30 ml 11/17/22 21:47 Mag Hydrox/Al Hydrox/Simeth 30 Ml Udc PO 11/17/23 21:46 Q4H PRN Epigastric distress (Non-Card) Amiodarone HCl 100 mg 11/18/22 09:00 11/18/22 08:25 Amiodarone 100 Mg Tablet PO 11/18/23 08:59 100 mg BID JOHN Administration Clopidogrel Bisulfate 75 mg 11/18/22 09:00 11/18/22 08:26 Clopidogrel Bisulfate 75 Mg Tablet PO 11/18/23 08:59 75 mg DAILY JOHN Administration Docusate Sodium 100 mg 11/17/22 21:47 Docusate 100 Mg Capsule PO 11/17/23 21:46 QHS PRN Constipation Isosorbide Mononitrate 60 mg 11/18/22 09:00 11/18/22 08:25 Isosorbide Mononitrate 24hr Er 60 Mg Tab.Er.24h PO 11/18/23 08:59 60 mg DAILY JOHN Administration Lisinopril 10 mg 11/18/22 09:00 11/18/22 08:26 Lisinopril 10 Mg Tablet PO 11/18/23 08:59 10 mg DAILY JOHN Administration Morphine Sulfate 2 mg 11/17/22 21:47 Morphine Sulfate 4 Mg/Ml Cartridge IV-PUSH Q20M PRN Chest Pain Nitroglycerin 0.4 mg 11/17/22 21:47 Nitroglycerin 0.4 Mg Tab.Subl SUBLINGUAL 11/17/23 21:46 Q5M PRN Chest Pain Ondansetron HCl 4 mg 11/17/22 21:47 Ondansetron 4 Mg/2 Ml Vial IV-PUSH 11/17/23 21:46 Q6H PRN Nausea And Vomiting Sodium Chloride 0 ml 11/17/22 18:00 Sodium Chloride 0.9 % 10 Ml Syringe IV-PUSH 11/17/23 17:59 PRN PRN Flush Sodium Chloride 0 ml 11/17/22 21:47 Sodium Chloride 0.9 % 10 Ml Syringe IV-PUSH 11/17/23 21:46 PRN PRN Flush Tramadol HCl 50 mg 11/17/22 21:47 Tramadol 50 Mg Tablet PO 05/16/23 21:46 Q6H PRN Moderate Pain Warfarin Sodium 1 each 11/17/22 21:54 Warfarin - Pharmacy Dosing MISCELLANE 11/17/23 21:53 PRN PRN ZZ.Pharmacy Consult Protocol A&P - Hospitalist Assessment/Plan (1) Chest pain: (2) History of heart artery stent: (3) CAD (coronary artery disease): (4) Paroxysmal atrial fibrillation: (5) Hyponatremia: Plan Chest pain with history of CAD and 6 coronary stents -States her most recent coronary stent was in September of this year -Her symptoms are certainly concerning for possible cardiac etiology or in stentrestenosis -Troponins have been flat -EKG with nonspecific changes -BNP slightly elevated at 249, though she does not exhibit any signs of fluid overload at this time -Most recent echo was in October 2021 and showed EF of 55-60%, mild concentric LVH,mild diastolic dysfunction, moderate mitral regurg, mild pulmonary hypertension -Chest x-ray was negative for acute cardiopulmonary process -Continue with home Plavix -Will add ASA due to very recent stent placement -Cardiology consulted Paroxysmal atrial fibrillation -Currently under good rate and rhythm control -We will hold her home warfarin due to possible cardiac intervention -Continue amiodarone -Continue to monitor Hyponatremia -Sodium on admission was 130 and has improved to 132 today -She is not exhibiting any symptoms of hyponatremia -We will continue to monitor with metabolic panels SCDs for DVT prophylaxis Heart healthy diet Full code The patient has been seen and examined. I personally obtained the turner and critical portions of the history and physical exam. I reviewed the chart, the team's documentation, and discussed the patient care with the team. I agree with the team's medical decision making and have edited the note to reflect my clinical findings and my assessment and plan. MD Reza Documented By: Mickey Nathan DO,RES 11/18/22 123 7 Signed By: <Electronically signed by RES Mickey Nathan> 11/18/22 1316 <Electronically signed by Ailyn Meng MD> 11/18/22 1317 [facility] Work Phone: [phone]) 801-983808-12-2023 History and physical note Author Jamie Hathaway [facility] November 17, 2022 11:08pm Note Date/Time November 17, 2022 11 :00pm [facility] [address] [place] [address] Hospitalist H&P Signed Patient: Erin Canales MR#: [id number] : 1935 Acct:[id number] Age/Sex: 87 / F Adm Date: 3 Loc: Room: [address] [place] [address] Type: ADM INOo Attending Dr: Jamie Hathaway MD Copies to: MD Los Fuentes MD~ HPI DATE OF EXAMINATION: 11/17/22 CHIEF COMPLAINT: chest pain HISTORY OF PRESENT ILLNESS: The patient is an 87-year-old woman with a history of coronary artery disease status post multiple PCI and paroxysmal atrial fibrillation on chronic anticoagulation with warfarin who presents to the ED complaining of intermittentchest pain for the last 2 days. According the patient for the last 2 days she has had intermittent chest discomfort described as sharp and stabbing left-sided chest pain that is provoked by physical activity and relieved by rest. There is mild associated dyspnea but no diaphoresis or nausea. The patient has had similar symptoms in the past, particularly prior to receiving stents. However the symptoms today were the worst that she has experienced. The patient presents to the ED for evaluation. Vital signs upon arrival were within normal limits except for blood pressure of 176/98. Patient is admitted for further evaluation and management. On further questioning the patient denies any current symptoms and has not had chest pain since arrival to the ED ROS: 10 systems reviewed and were negative except as noted in the HPI [facility] Medical History (HFpEF) heart failure with preserved ejection fraction Arthritis Back pain Cardiomyopathy Closed intertrochanteric fracture of left hip Coronary artery disease Gout Hearing impaired Hyperlipidemia Hypertension Left-sided Alvarado's palsy Paroxysmal atrial fibrillation Wears hearing aid in both ears Surgical History History of cardiac catheterization x5 stents History of carpal tunnel release History of eyelid surgery left eye History of orthopedic surgery pinning of left hip History of phacoemulsification of cataract of both eyes with intraocular lens implantation Family History Father CAD (coronary artery disease) Mother CAD (coronary artery disease) Brother Brain tumor Social History Smoking Status: Never smoker Substance Use Type: None Social History Comments: no tob no etoh mother dec heart dz father dec heart dz Meds Medications and Allergies Allergies ibuprofen [From Motrin] Allergy (Verified 11/17/22 18:01) Hives Home Medications apple cider vinegar 500 mg tablet 500 mg PO DAILY 11/26/19 [History Confirmed 09/22/22] calcium carbonate 600 mg calcium (1,500 mg) tablet (Calcium) 600 mg PO BID 11/26/19 [History Confirmed 09/25/22] cholecalciferol (vitamin D3) 50 mcg (2,000 unit) tablet (Vitamin D3) 50 mcg PO DAILY 11/26/19 [History Confirmed 09/25/22] omega 7-dty-ovd-fish oil 1,000 mg (120 mg-180 mg) capsule (Fish Oil) 1 cap PO DAILY 11/26/19 [History Confirmed 09/25/22] selenium 50 mcg tablet 100 mcg PO DAILY 11/26/19 [History Confirmed 09/25/22] vitamin E 268 mg (400 unit) capsule 800 unit PO DAILY 11/26/19 [History Confirmed 09/25/22] amiodarone 100 mg tablet 100 mg PO BID atrial fib 01/10/22 [History Confirmed 11/17/22] multivitamin 1 tab PO DAILY 01/10/22 [History Confirmed 09/25/22] acetaminophen 650 mg tablet,extended release 1,300 mg PO BID arthritic pain 09/22/22 [History Confirmed 09/22/22] ascorbic acid (vitamin C) 1,000 mg tablet (Vitamin C) 2 g PO BID supplement 09/22/22 [History Confirmed 09/25/22] aspirin 81 mg tablet,delayed release 81 mg PO 2XW 09/22/22 [History Confirmed 09/25/22] cartilage 40 mg-collagen II 10 mg-boron 5 mg-hyaluronate 3.3 mg tablet ([place]) 1 tab PO DAILY 09/22/22 [History Confirmed 09/25/22] isosorbide mononitrate 60 mg tablet,extended release 24 hr 60 mg PO DAILY 09/22/22 [History Confirmed 11/17/22] lisinopril 10 mg tablet 10 mg PO DAILY 09/22/22 [History Confirmed 11/17/22] nitroglycerin 0.4 mg sublingual tablet 0.4 mg sublingual DIRECTED PRN Chest Pain 09/22/22 [History Confirmed 09/22/22] torsemide 10 mg tablet 10 mg PO DAILY 09/22/22 [History Confirmed 11/17/22] warfarin 6 mg tablet 6 mg PO QMWF anticoagulation 09/22/22 [History Confirmed 11/17/22] white petrolatum-mineral oil 80 %-20 % eye ointment (Soothe Night Time Lubricant) 1 applic Eye-Left DAILY PRN Dry Eye(S) 09/22/22 [History Confirmed 09/25/22] clopidogrel 75 mg tablet (Plavix) 75 mg PO DAILY #90 tabs 09/25/22 [Rx Confirmed 11/17/22] cyanocobalamin (B12)-cobamamide 5,000 mcg-100 mcg sublingual lozenge (B12) 1 lozsublingual DAILY 09/25/22 [History Confirmed 09/25/22] nortriptyline 25 mg capsule 25 mg PO DAILY 09/25/22 [History Confirmed 09/25/22] warfarin 6 mg tablet See Rx Instructions .Route .COMPLEX 11/17/22 [History Confirmed 11/17/22] Exam Physical Exam Vital Signs: Temp Pulse Resp BP Pulse Ox O2 Del Method 98.3 F 50 L 16 184/84 H 98 Room Air 11/17/22 22:48 11/17/22 22:48 11/17/22 22:48 11/17/22 22:48 11/17/22 22:48 11/17/22 22:48 Narrative: Gen: pt appears comfortable, pleasant and conversant HEENT: NC/AT mmm no oropharyngeal plaques/exudates neck: supple no LAD CV: RRR no m/r/g noted Chest : CTAB respirations even/unlabored no wheezing/rales abdomen: soft NT/ND bowel sounds x4 no palpable masses/organomegaly ext: no c/c/e distal pulses 2+ equal bilaterally neuro: a/o x4 answers questions appropriately moves all extremities + left sided facial droop chronic per pt skin: no rash JALYN Risk Score JALYN Risk Score Predictor Historical: Age > 65 Years Old, 3 or more Risk Factors: FHx,HTN,elevated cholesterol,DM,active smoker and Known CAD Stenosis >/=50% Presentation: Recent (>/=24hr) Angina Score Risk Score (0-7): 4 Results Lab Results Labs: Laboratory Last Values Corrected WBC 5.8 X10E3/uL (3.8-11.6) 11/17/22 18:44 Uncorrected WBC Count 5.8 x10E3/uL (3.8-11.6) 11/17/22 18:44 RBC 4.62 X10E6/uL (3.60-5.00) 11/17/22 18:44 Hgb 14.8 g/dL (11.8-15.4) 11/17/22 18:44 Hct 44.6 % (34.0-46.4) 11/17/22 18:44 MCV 96.6 fl (80-100) 11/17/22 18:44 MCH 32.1 pg (24.7-34.3) 11/17/22 18:44 MCHC 33.2 g/dL (32.0-35.0) 11/17/22 18:44 RDW 15.0 % (11.9-15.3) 11/17/22 18:44 Plt Count 220 x10E3/uL (150-450) 11/17/22 18:44 MPV 7.7 fl (6.3-10.7) 11/17/22 18:44 Neut % (Auto) 73.5 % (.) 11/17/22 18:44 Lymph % (Auto) 17.1 % (.) 11/17/22 18:44 Eaton % (Auto) 7.8 % (.) 11/17/22 18:44 Eos % (Auto) 0.8 % (.) 11/17/22 18:44 Baso % (Auto) 0.8 % (.) 11/17/22 18:44 Nucleat RBC Rel Count 0.2 /100 WBC (0-0.5) 11/17/22 18:44 Neut # (Auto) 4.3 x10E3/uL (1.8-7.7) 11/17/22 18:44 Lymph # (Auto) 1.0 x10E3/uL (1.00-4.8) 11/17/22 18:44 [place]aton # (Auto) 0.5 x10E3/uL (0.0-0.8) 11/17/22 18:44 Eos # (Auto) 0.0 x10E3/uL (0.0-0.45) 11/17/22 18:44 Baso # (Auto) 0.0 x10E3/uL (0.0-0.2) 11/17/22 18:44 Monocyte Dist Width 16.19 % (0.00-20.00) 11/17/22 18:44 PT 42.9 Seconds (9.0-12.9) H 11/17/22 18:44 INR 3.7 11/17/22 18:44 APTT 46.9 Seconds (25.1-36.5) H 11/17/22 18:44 PHA Creatinine Clear 34.38 11/17/22 18:44 Sodium 130 mmol/L (136-145) L 11/17/22 18:44 Potassium 4.0 mmol/L (3.5-5.1) 11/17/22 18:44 Chloride 94 mmol/L (98-107) L 11/17/22 18:44 Carbon Dioxide 27.5 mmol/L (21.0-31.0) 11/17/22 18:44 Anion Gap 12.5 mEq/L (6.0-15.0) 11/17/22 18:44 BUN 19 mg/dL (7-25) 11/17/22 18:44 Creatinine 1.12 mg/dL (0.60-1.20) 11/17/22 18:44 Est GFR (CKD-EPI) 47.298 mL/Min 11/17/22 18:44 Glucose 132 mg/dL (70-100) H 11/17/22 18:44 Calcium 9.5 mg/dL (8.6-10.3) 11/17/22 18:44 Total Creatine Kinase 62 U/L (30-223) 11/17/22 18:44 Troponin I High Sens 16.9 pg/mL (0.0-15.0) H 11/17/22 18:44 B-Natriuretic Peptide 249.0 pg/mL (5-100) H 11/17/22 18:44 Assessment & Plan Assessment/Plan (1) Chest pain: (2) CAD (coronary artery disease): (3) Paroxysmal atrial fibrillation: (4) Hypertension: Plan chest pain- concerning for unstable angina admit to monitor on telemetry serial cardiac enzymes/ECGs continue clopidogrel pt to report recurrent symptoms to staff immediately consult cardiology in am paroxysmal atrial fibrillation continue warfarin, to be dosed by pharmacy continue amiodarone k>4 mg >2 hypertension blood pressure currently uncontrolled consider adding beta germán or amlodipine if persistently elevated VTE prophlyaxis the patient is already on full anticoagulation IP vs OBS Justification Based on differential dx, clinical care plan, and risk of adverse events, if untreated, in my clinical judgement this patient requires an acute care setting as: OBSERVATION because of an expectation of an under 2 midnight stay. Estimated length of stay (# of days): 1 Documented By: Jamie Hathaway MD 11/17/22 2667 Signed By: <Electronically signed by Jamie Hathaway MD> 11/17/22 8174 [facility] Work Phone: [phone] Discharge summary Author Pearl Michel [facility] September 25, 2022 1:06pm Note Date/Time September 25, 2022 1:03 pm [facility] [address] [place], [place] [id number] Discharge Summary Signed Patient: Erin Canales MR#: [id number] : 1935 Acct:[id number] Age/Sex: 87 / F Adm Date: 3 Loc: Room: [address] [place] [address]: Pearl Michel DO Copies to: MD Pearl Sparks, ~ Providers Date of Discharge: 09/25/22 Discharging Provider: Pearl Michel Primary Care Provider: Los Chaudhary Discharge Diagnosis (1) CAD (coronary artery disease): (2) Hypertension: (3) A-fib: (4) History of heart artery stent: (5) Abnormal cardiovascular stress test: Final Diagnosis Final Discharge Diagnosis: Progressive circumflex disease, successful PCI proximal circumflex Summary Hospital Course Hospital course: 87-year-old active female presents for elective heart catheterization with classIII angina, abnormal stress perfusion imaging, and history of ASHD with three-vessel revascularization remotely. Catheterization revealed widely patent stents in the diagonal, proximal/mid LAD and second OM branch, progressive severe disease of the proximal circumflex; and chronic occlusion of the proximalRCA (known), with preserved LV function Patient underwent PCI of the proximal circumflex with 2.5 x 30 mm [place] without complications Patient will proceed with DAPT with aspirin and Brilinta for at least 30 days, will be allowed to switch over to clopidogrel thereafterwards with continued warfarin for PAF Condition Condition at Discharge: Stable Status at Discharge Functional status at discharge: independent ambulation Overall status at discharge: patient is back to baseline Time Spent with Patient Time spent providing/coordinating discharge services (# min): 15 Surgeries and Procedures Operation Date: 09/25/22 10:15 Actual Procedures p CL LHC & COR Angio - Pearl Michel DO p CL Stent 1st Vessel CX COLBY - Pearl Michel DO Complications Complications: None Diagnostic Studies Completed and Pending Studies Pending studies at discharge: 09/25/22 12:44 ECG 12 lead ECG Stat 09/25/22 12:46 CPR cardiac rehab ed Routine 09/26/22 05:00 ECG 12 lead ECG IN AM Troponin I High Sensitivity [CHEM] IN AM Labs on day of discharge: 09/25/22 08:50: PT 16.9 H, INR 1.5, APTT 37.0 H Exam Physical Exam Vital Signs: Temp Pulse Resp BP Pulse Ox O2 Del Method 97.8 F 52 L 20 150/67 H 98 Room Air 09/25/22 08:58 09/25/22 08:58 09/25/22 08:58 09/25/22 08:58 09/25/22 08:58 09/25/22 09:02 Discharge Plan Discharge Plan Patient Disposition: Home Diet: Low-Cholesterol Additional Instructions: DISCHARGE INSTRUCTIONS FOR ANGIOPLASTY/CORONARY/PERIPHERAL/STENT IMPLANT FOR ADULT ANTICOAGULATION -Since the greatest risk of a blood clot forming with the stent occurs in the first 2-3 weeks after implantation, you will need to take anticoagulants for at least [?insert date or amount of time?]. ANTICOAGULATION MEDICATION [INSERT MEDICATION NAME: Aspirin 81mg once a day, Ticagrelor (Brilinta) 90mg twice a day x1 month then allowed to switch to clopidogrel 75 daily thereafterwards STATIN MEDICATION [INSERT MEDICATION NAME: atorvastatin (Lipitor) 80 mg or rosuvastatin (Crestor) 40mg] [Drug-Eluting Stent (COLBY) duration] DO NOT discontinue Brilinta/Aspirin during the first 1 month, may switch to clopidogrel/aspirin thereafterwards regardless of what you are advised by your family doctor or pharmacist, without first calling the secretary book keeper who implanted the stent. If you require pain relief during this time, please take only ACETAMINOPHEN (TYLENOL)- NO additional aspirin or ibuprofen. DISCHARGE ACTIVITIES ARE FOLLOWS: First week after discharge: -Take it easy at home, no strenuous activity. -Do not lift or pull objects over 10-15 pounds, including children, and groceries for four weeks. If puncture site is at wrist do NOT lift more than three pounds for three days. - May walk up stairs. -May shower. -No excessive scrubbing of the affected site (groin). -May ride in car. -May resume sexual intercourse after 1-2 weeks. -No MRI for 12 days. -May drive in 4-7 days. -If puncture site is at the wrist do not manipulate the wrist for 24 hours, and no soaking wrist for three days. Second Week: -May take a bath -May start walking 3 times a week for 15-20 minutes at a leisurely pace. You should be able to carry on a conversation comfortably without feeling winded. -No strenuous activity as in jogging, running, weight lifting, stair steppers, etc. until the secretary book keeper approves these activities. Check with the secretary book keeper on your first follow-up visit. CALL YOUR PHYSICIAN at [phone]: -If bleeding should occur from the catheter insertion site- apply pressure to the site then immediately call us. -Report any fever, redness, drainage, increased swelling, or firmness at the catheter insertion site. Some bruising or slight swelling may be present at thetime of discharge. -Should arm or leg become cold, numb, white, or blue, contact the secretary book keeper immediately. -IF you should experience episodes of angina, e.g. chest discomfort, heaviness, tightness, pressure burning with or without radiation to the neck, jaw, arms or back- use 1 Nitrostat tablet under your tongue every 5-10 minutes and up to three tablets. IF NO RELIEF, CALL 911 or GO TO THE NEAREST EMERGENCY ROOM. -Please notify our office if you have recurrent angina. -[Cardiac Rehab Education Provided. Participation in the Cardiopulmonary Rehabilitation program is recommended. Please call Central Scheduling at [phone] to schedule your appointment.] The attending secretary book keeper or [facility] nurse clinician should provide you with specific instructions regarding activity, diet, medications, and further follow up for you. Follow the medication instructions provided on your discharge. If the dosages and instructions on this sheet differ from the dosage and instructions on the bottle, follow the instructions on the bottle. [facility] is not responsible for incorrect prescription information provided by thepatient during their visit. Do not stop your medications without consulting your health care provider. Please take the list with you to your next doctor's appointment. Prescriptions: New clopidogrel [Plavix] 75 mg tablet 75 mg PO DAILY Qty: 90 2RF Rx Instructions: Discontinue Brilinta after 30 days and then initiate clopidogrel daily Continued selenium 50 mcg Tablet 100 mcg PO DAILY calcium carbonate [Calcium 600] 600 mg calcium (1,500 mg) Tablet 600 mg PO BID vitamin E 400 unit Capsule 800 unit PO DAILY cholecalciferol (vitamin D3) [Vitamin D3] 50 mcg (2,000 unit) Tablet 50 mcg PO DAILY omega 6-tta-mdk-fish oil [Fish Oil] 1,000 mg (120 mg-180 mg) Capsule 1 cap PO DAILY apple cider vinegar 500 mg Tablet 500 mg PO DAILY multivitamin Tablet 1 tab PO DAILY amiodarone 100 mg Tablet 100 mg PO BID acetaminophen 650 mg Tablet Extended Release 1,300 mg PO BID ascorbic acid (vitamin C) [Vitamin C] 1,000 mg Tablet 2 g PO BID aspirin 81 mg Tablet,Delayed Release (/Ec) 81 mg PO 2XW torsemide 10 mg tablet 10 mg PO DAILY lisinopril 10 mg tablet 10 mg PO DAILY Patient Comments: TAKE 1 TABLET BY MOUTH ONCE DAILY DIRECTED. DOSE INCREASED isosorbide mononitrate 60 mg tablet extended release 24 hr 60 mg PO DAILY Patient Comments: TAKE 1 TABLET BY MOUTH ONCE DAILY DIRECTED. DOSE INCREASED warfarin 6 mg tablet 6 mg PO DIRECTED nitroglycerin 0.4 mg tablet, sublingual 0.4 mg sublingual DIRECTED PRN (Reason: Chest Pain) Patient Comments: TAKE DIRECTED Soothe Night Time Lubricant 80-20 % Ointment 1 applic EYE-LEFT DAILY PRN (Reason: Dry Eye(S)) [facility] 40-10-5-3.3 mg Tablet 1 tab PO DAILY nortriptyline 25 mg Capsule 25 mg PO DAILY B12 5,000-100 mcg Lozenge 1 mari SUBLINGUAL DAILY Follow Up: Akhil Olivarez MD [Active Staff] - Los Chaudhary MD [Primary Care Provider] - Documented By: Pearl Michel DO 09/25/22 1259 Signed By: <Electronically signed by Pearl Michel DO> 09/25/22 1306 [facility] Work Phone: 1(990) 760-162606-19-2023 Procedure [facility]06-19-2023 Procedure [facility]07-23-2022 Consult note Author Geeta Bourgeois [facility] October 29, 2021 11:14am Note Date/Time October 29, 2021 10:0 8am [facility] [address] [place], [place] [id number] Neurology Consult Note Signed Patient: Erin Canales MR#: [id number] : 1935 Acct:[id number] Age/Sex: 86 / F Adm Date: 2 Loc: Room: [address] [place] [address] Type : ADM INOo Attending Dr: Kale Ross MD Copies to: MD Geeta Underwood DO Pamela Sue Cramer, CNP~ HPI Consult Date: 10/29/21 Fiberglass Product Tester: Geeta Bourgeois DO Reason for consult: weakness Consult Narrative HPI: 86-year-old female being seen in neurology consultation at the request of hospitalist. Patient has a history of atrial fibrillation was recently diagnosed with Alvarado's palsy on the left about 1 week ago. She was given steroids. Over the last 3 weeks she has had progressive weakness and decided to come to the hospital. Reportedly she also recently had an upper respiratory infection and a UTI and was just finishing antibiotics. She states that she evencleaned her house this last Wed. She staets that she came in because she felt weak but that she had a lot of nausea. She has not been eating and drinking normally because of the nausea. She states that she became severely nauseated after she started the valtrex for the Alvarado's palsy. She denies having any focal or lateralizng weakness. She states that was weak all over. She does have some pain by her ear. She denies any blisters in her ear. She is feeling better here today with the nausea controlled and being able to get the fluids in. Review of Systems Constitutional Constitutional: Denies chills and Denies fever(s) Eyes Eyes: Denies blurry vision and Denies diplopia ENT Ears, Nose, Mouth, and Throat: Denies nasal congestion and Reports nasal discharge Cardiovascular Cardiovascular: Denies chest pain and Denies palpitations Respiratory Respiratory: Denies cough and Denies dyspnea Gastrointestinal Gastrointestinal: Reports nausea and Denies vomiting Genitourinary Genitourinary: Denies dysuria and Denies hematuria Musculoskeletal Musculoskeletal: Reports muscle weakness, Denies numbness and Denies tingling Integumentary/Breasts Skin/Breast: Denies new lesions and Denies rash Neurologic Neurologic: Reports headache(s) and Denies tingling Comments: pain by her hear PMFSH Vaccinated for COVID-19?: No Medical History (Updated 10/28/21 @ 16:08 by Tatyana Madrid, [facility]) (HFpEF) heart failure with preserved ejection fraction Arthritis Back pain Closed intertrochanteric fracture of left hip Hyperlipidemia Hypertension Palpitation history of Paroxysmal atrial fibrillation Surgical History History of cardiac catheterization x5 stents History of orthopedic surgery pinning of left hip Family History Father CAD (coronary artery disease) Mother CAD (coronary artery disease) Brother Brain tumor Social History Smoking Status: Never smoker Substance Use Type: None Social History Comments: no tob no etoh mother dec heart dz father dec heart dz Meds Medications and Allergies Allergies ibuprofen [From Motrin] Allergy (Verified 10/21/21 09:08) Hives Home Medications acetaminophen 325 mg tablet 650 mg PO Q4H PRN Pain ##0 04/03/17 [Rx Confirmed 10/28/21] digoxin 125 mcg (0.125 mg) tablet 125 mcg PO DAILY ##0 04/03/17 [Rx Confirmed 10/28/21] multivitamin with folic acid 400 mcg tablet (Thera) 1 tab PO DAILY ##0 04/03/17 [Rx Confirmed 10/28/21] nortriptyline 25 mg capsule 25 mg PO QHS ##0 04/03/17 [Rx Confirmed 10/28/21] apple cider vinegar 500 mg tablet 500 mg PO DAILY 11/26/19 [History Confirmed 10/28/21] ascorbic acid (vitamin C) 500 mg tablet (Vitamin C) 4,000 mg PO DAILY 11/26/19 [History Confirmed 10/28/21] calcium carbonate 600 mg calcium (1,500 mg) tablet (Calcium) 600 mg PO BID 11/26/19 [History Confirmed 10/28/21] cholecalciferol (vitamin D3) 50 mcg (2,000 unit) tablet (Vitamin D3) 50 mcg PO DAILY 11/26/19 [History Confirmed 10/28/21] omega 7-zue-ekq-fish oil 1,000 mg (120 mg-180 mg) capsule (Fish Oil) 1 cap PO BID 11/26/19 [History Confirmed 10/28/21] selenium 50 mcg tablet 100 mcg PO DAILY 11/26/19 [History Confirmed 10/28/21] torsemide 5 mg tablet 5 mg PO DAILY 11/26/19 [History Confirmed 10/28/21] vitamin E 268 mg (400 unit) capsule 800 unit PO DAILY 11/26/19 [History Confirmed 10/28/21] nitrofurantoin monohydrate/macrocrystals 100 mg capsule (Macrobid) 100 mg PO BID#10 caps 10/23/21 [Rx Confirmed 10/28/21] amlodipine 5 mg tablet 5 mg PO DAILY #14 tabs 10/25/21 [Rx Confirmed 10/28/21] aspirin 81 mg chewable tablet 81 mg PO DIRECTED 10/25/21 [History Confirmed 10/28/21] erythromycin 5 mg/gram (0.5 %) eye ointment 1 applic ophthalmic (eye) Q6H #3.5 grams 10/25/21 [Rx Confirmed 10/28/21] prednisone 20 mg tablet 60 mg PO DAILY 7 days #21 tabs 10/25/21 [Rx Confirmed 10/28/21] valacyclovir 1 gram tablet 1,000 mg PO Q8H 7 days #21 tabs 10/25/21 [Rx Confirmed 10/28/21] warfarin 6 mg tablet 6 mg PO DAILY 10/25/21 [History Confirmed 10/28/21] amiodarone 200 mg tablet 200 mg PO BID 10/28/21 [History Confirmed 10/28/21] lisinopril 2.5 mg tablet 2.5 mg PO DAILY 10/28/21 [History Confirmed 10/28/21] Exam Physical Exam Vital Signs: Temp Pulse Resp BP Pulse Ox O2 Del Method 98.0 F 70 18 157/62 H 95 Room Air 10/29/21 03:21 10/29/21 09:03 10/29/21 09:02 10/29/21 09:02 10/29/21 09:02 10/29/21 09:02 Neuro Other: Attending exam Patient is sitting in the chair she is alert and oriented x3 and not in any true distress Speech was clear and fluent Cranial nerves II through XII pupils are equal reactive to light and accommodation bilaterally extraocular cells were intact bilaterally visual figueroa are full there is no nystagmus Full left facial droop decreased innervation of the forehead ptosis and even lower lid droop positive Alvarado's phenomenon, tongue is midline good range of motion palate rises symmetrically uvula is midline there are no facial sensory deficit she has good bilateral shoulder shrug Pronator drift is negative Coordination shows no signs of dysmetria with good rapid alternating movements [id number] Tone is physiologic Patient is intact to pinprick and light touch in all extremities and face Motor examination is 5 out of 5 Babinski is negative Language skills are intact Fund of knowledge is within normal limits Results Laboratory Findings CBC and BMP: 10/28/21 05:27 10/28/21 05:27 Lab Results: ESR 24 mm/hr (0-29) 10/28/21 05:57 Diagnostic Findings Imaging/Impressions: ITS Impressions Brain MRI with MRA 10/28/21 12:04 IMPRESSION: 1. No acute intracranial abnormality is seen. 2. No significant change in vascular findings compared to the prior CTA study. 3. Cortical atrophy with chronic microvascular ischemic changes. Impression dictated by: Aristides Estrada Jr., D.O.10/28/2021 7:31 PM Dictation Location: [place] [address] Head CTA 10/28/21 12:09 IMPRESSION: 1. Noncontrast brain demonstrates no acute intracranial abnormality. 2. 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 This does not appear to represent a typical origin variant. 3. No critical stenosis or occlusion is seen involving the carotid systems. Impression dictated by: Aristides Estrada Jr., D.O.10/28/2021 1:35 PM Dictation Location: [place] [address] Therapy Recommendations Therapy Recommendations: OT Recommendations OT Recommended Discharge Home with Home Health Location OT Recommended Services at Physical Therapy,Occupational Therapy,Home Discharge Health Aide PT Recommendations PT Recommended Discharge Home with Home Health,Home with Outpatient Location PT Recommended Services at Physical Therapy Discharge PT Discharge Comment see above ST Recommendations Liquid Consistency Thin Liquids Recommendation Solid Consistency Regular Solids Recommendations Meat Consistency Chopped Meats Recommendations Medication Administration Whole Pills,Give Pills with Water Dysphagia Swallow Precautions/ Sitting Upright (90 deg),Small Bites/Sips, Strategies Alternate Liquids/Solids Assessment/Plan (1) Left-sided Alvarado's palsy: Assessment/Problem Details: 86-year-old female presenting with generalized weakness and nausea. Patient wasdiagnosed with a left full Alvarado's palsy approximately 1 week ago. She has had some mild weakness prior to that however that progressed over the last week or so after she started taking the Alvarado's palsy medication of the antiviral and steroid. She states it made her very nauseated and even though she was trying to stay hydrated and eat regularly she was not. This caused her to be more weak. She denies any focal weakness however there was reports he may have had some lateralizing findings initially. At this point in time she has no focal orlateralizing findings. She has worked with therapy and was able to walk withoutany difficulty. She did have an MRI of her brain that showed no acute infarct. 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 We did talk about I care and I helped her put her gauze on. She certainly does not have to wear this 24 hours a day but definitely at night and periodically. She can use normal saline tears during theday and Lacri-Lube at night. She has an erythromycin gel however unclear if shetruly needs that. 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 She has not had a stroke therefore it is not an acute issue at thispoint in time Continue with eye care use natural tears during the day and Lacri-Lube and tape the eyelid closed at night this was counseled with her She was counseled by the prognosis of Alvarado's palsy Stay hydrated and encourage p.o. intake Continue with control of the nausea At this time she is neurologically stable and has no other acute neurologic needs and okay to DC home and follow-up as an outpatient This was all discussed with the patient all questions were answered she agreed with the treatment plan Code(s): G51.0 - Alvarado's palsy Status: Acute (2) Dehydration: Code(s): E86.0 - Dehydration Status: Acute (3) Generalized weakness: Code(s): R53.1 - Weakness Status: Acute (4) History of atrial fibrillation: Code(s): Z86.79 - Personal history of other diseases of the circulatory system Status: Acute Documented By: Geeta Bourgeois DO 10/29/21 1006 Signed By: <Electronically signed by DO Geeta Bourgeois> 10/29/21 5517 [facility] Work Phone: 1(166) 554-153507-22-2022 Progress note Author Kale [facility] October 28, 2021 4:56pm Note Date/Time October 28, 2021 11:5 2am [facility] [address] [place] [address] Hospitalist Progress Note Signed with Silvana Patient: Erin Canales MR#: [id number] : 1935 Acct:[id number] Age/Sex: 86 / F Adm Date: 2 Loc: Room: [address] [place] [address] Type : ADM INOo Attending Dr: Kale Ross MD Copies to: ~ ADDENDUM1 I personally saw this patient on the day of the encounter, reviewed the history,performed the turner elements of the exam and formulated the plan of care and confirmed the nurse practitioners/residents/phd intern written note. Addendum Documented By: Kale Ross MD 10/28/211654 Addendum Signed By: <Electronically signed by Kale Ross MD> 10/28/211655 Date of Service: 10/28/2021 Subjective Subjective Narrative: Patient is seen and examined. She is very talkative. She has obvious left facial droop, patch maintained over her left eye with recent Alvarado's palsy. She is only taken 3 days of prednisone per her report however notes that there is improvement in her symptoms since onset. She recently had reported viral URI aswell as UTI, treated with antibiotics completing dosing today. She is reportingpain left judaism to ear area that is alleviated with Tylenol, stating it has been there since Alvarado's palsy diagnosis. She reports some visual disturbance ofthe left eye with this as well. Indicates she has had progressive weakness. Further clarified with her regarding her digoxin, she said she is still taking medication. Exam Physical Exam Vital Signs: Temp Pulse Resp BP Pulse Ox O2 Del Method 98 F 61 18 148/65 H 96 Room Air 10/28/21 00:20 10/28/21 05:55 10/28/21 05:55 10/28/21 05:55 10/28/21 05:55 10/28/21 05:55 Narrative: Alert, in chair, no distress at rest Talkative with clear speech Oriented x3, follows commands for exam Moves all extremities x4 with equal strength Patch over left eye Drooping with significant distortion of left face RRR no abnormal heart tones dimin without wheeze or rhonchi, RA S/NT, NABS no edema BLE, calves nontender Objective Lab Results CBC & Chem 7: 10/28/21 05:27 10/28/21 05:27 Microbiology Results Microbiology 10/28/21 04:45 Nasopharyngeal SARS-CoV-2, Influenza & RSV (PCR) - Final 10/28/21 04:45 Nasal SARS Antigen (LFIA) - Final Meds Allergies and Active Meds Allergies ibuprofen [From Motrin] Allergy (Verified 10/21/21 09:08) Hives Active Meds: Active Medications Generic Name Dose Route Start Last Admin Trade Name [place] PRN Reason Stop Dose Admin Acetaminophen 650 mg 10/28/21 10:55 10/28/21 11:21 Acetaminophen 325 Mg Tablet PO 10/28/22 10:54 650 mg Q6H PRN Administration Pain Amlodipine Besylate 5 mg 10/28/21 09:00 10/28/21 11:21 Amlodipine 5 Mg Tablet PO 10/28/22 08:59 5 mg DAILY JOHN Administration Aspirin 81 mg 10/29/21 09:00 Aspirin 81 Mg Tab.Chew PO 10/29/22 08:59 TuSa@0900 JOHN Sodium Chloride 1,000 mls @ 100 mls/hr 10/28/21 04:45 10/28/21 11:37 0.9% Sodium Chloride 1,000 Ml IV 10/28/22 04:44 100 mls/hr .Q10H JOHN Administration Labetalol HCl 5 mg 10/28/21 04:37 Labetalol 100 Mg/20 Ml Vial IV-PUSH 10/28/22 04:36 Q4H PRN Hypertension Nortriptyline HCl 25 mg 10/28/21 22:00 Nortriptyline 25 Mg Capsule PO 10/28/22 21:59 QHS JOHN Ondansetron HCl 4 mg 10/28/21 04:37 Ondansetron 4 Mg/2 Ml Vial IV-PUSH 10/28/22 04:36 Q8H PRN Nausea And Vomiting Sodium Chloride 0 ml 10/28/21 00:22 10/28/21 11:37 Sodium Chloride 0.9 % 10 Ml Syringe IV-PUSH 10/28/22 00:21 10 ml PRN PRN Administration Flush Valacyclovir HCl 1,000 mg 10/28/21 06:00 10/28/21 11:21 Valacyclovir 500 Mg Tablet PO 1,000 mg Q8HR JOHN Administration Vitamin D 50 mcg 10/28/21 09:00 10/28/21 11:21 Cholecalciferol 25 Mcg (1,000 Units) Tablet PO 10/28/22 08:59 50 mcg DAILY JOHN Administration Warfarin Sodium 1 each 10/28/21 06:36 Warfarin - Pharmacy Dosing MISCELLANE 10/28/22 06:35 PRN PRN ZZ.Pharmacy Consult Protocol Warfarin Sodium 6 mg 10/28/21 17:00 Warfarin 6 Mg Tablet PO 10/28/21 17:01 ONCE ONE A&P - Hospitalist Assessment/Plan (1) Weakness: (2) Hypertension: (3) Left-sided Alvarado's palsy: (4) Dizziness: (5) Chronic anticoagulation: Plan Generalized weakness/decreased functional declining x3wks Recent viral syndrome/ URI 10/21 Recent UTI Enterococcus Faecalis 10/21 [place] Palsy, left sided 10/25 ?new meds this past week Prednisone amlodipine lisinopril nitrofurantoin cefdinir -steroids held with concern for associated myopathy, has taken 3 of 7 days of 60mg daily -B12 high, D normal, TSH/ T4 normal, CK normal, digoxin normal, UA noninfectious -IV hydration x2L -check ESR and CRP, consider arteritis -Meclizine, Zofran for symptoms -CT head 10/25?chronic microvascular ischemic changes -neurology consult Chronic Conditions 1. Afib, HTN, HFpEF- amiodarone, digoxin, warfarin pharmacy dosing, amlodipine,lisinopril. Torsemide held Documented By: ERROL Vicente 2 1152 Signed By: <Electronically signed by ANP-BC Tatyana Madrid> 10/28/21 1616 <Electronically signed by Kale Ross MD> 10/28/21 1653 [facility] Work Phone: 1(902) 262-960307-22-2022 History and physical note Author Nguyễn Langston [facility] October 28, 2021 4:55am Note Date/Time October 28, 2021 4:55 am [facility] [address] [place] [address] Hospitalist H&P Signed Patient: Erin Canales MR#: [id number] : 1935 Acct:[id number] Age/Sex: 86 / F Adm Date: 2 Loc: ER Room: Type: [facility] Attending Dr: Copies to: MD Summer Bernard, JUAN CARLOS Locke Jr, MD~ HPI DATE OF EXAMINATION: 10/28/21 CHIEF COMPLAINT: Weakness HISTORY OF PRESENT ILLNESS: pt is an 86 y/o female with history of A fib and recent diagnosis of Alvarado's palsy for which she was started on steroids about a week ago presented to the hospital due to worsening weakness over the last 3-week to the point that she isnot able to care for herself or do her daily activities, and hospital the patient stated that she has been feeling chilled however denied having any fever/chest pain/cough/sputum production or any other complaints, the patient denied having any joint stiffness or pain however she stated that the weakness gets worse in the morning once she wakes up and gets better by noon. Review of Systems Review of Systems All other systems reviewed & are negative unless noted below or in HPI PMFSH Vaccinated for COVID-19?: Unknown Medical History (Updated 10/28/21 @ 04:53 by Nguyễn Lopez MD) Arthritis Back pain Hyperlipidemia Hypertension Palpitation history of Surgical History History of cardiac catheterization x5 stents History of orthopedic surgery pinning of left hip Family History Father CAD (coronary artery disease) Mother CAD (coronary artery disease) Brother Brain tumor Social History Smoking Status: Unknown if ever smoked Substance Use Type: Unknown Meds Medications and Allergies Allergies ibuprofen [From Motrin] Allergy (Verified 10/21/21 09:08) Hives Home Medications acetaminophen 325 mg tablet 650 mg PO Q4H PRN Pain ##0 04/03/17 [Rx Confirmed 10/25/21] digoxin 125 mcg (0.125 mg) tablet 125 mcg PO DAILY ##0 04/03/17 [Rx Confirmed 10/25/21] lisinopril 10 mg tablet 10 mg PO DAILY ##0 04/03/17 [Rx Confirmed 10/25/21] multivitamin with folic acid 400 mcg tablet (Thera) 1 tab PO DAILY ##0 04/03/17 [Rx Confirmed 10/25/21] nortriptyline 25 mg capsule 25 mg PO QHS ##0 04/03/17 [Rx Confirmed 10/25/21] apple cider vinegar 500 mg tablet 500 mg PO DAILY 11/26/19 [History Confirmed 10/25/21] ascorbic acid (vitamin C) 500 mg tablet (Vitamin C) 4,000 mg PO DAILY 11/26/19 [History Confirmed 10/25/21] calcium carbonate 600 mg calcium (1,500 mg) tablet (Calcium) 600 mg PO BID 11/26/19 [History Confirmed 10/25/21] cholecalciferol (vitamin D3) 50 mcg (2,000 unit) tablet (Vitamin D3) 50 mcg PO DAILY 11/26/19 [History Confirmed 10/25/21] omega 1-jdt-ajm-fish oil 1,000 mg (120 mg-180 mg) capsule (Fish Oil) 1 cap PO BID 11/26/19 [History Confirmed 10/25/21] selenium 50 mcg tablet 100 mcg PO DAILY 11/26/19 [History Confirmed 10/25/21] torsemide 5 mg tablet 5 mg PO DAILY 11/26/19 [History Confirmed 10/25/21] vitamin E 268 mg (400 unit) capsule 800 unit PO DAILY 11/26/19 [History Confirmed 10/25/21] nitrofurantoin monohydrate/macrocrystals 100 mg capsule (Macrobid) 100 mg PO BID#10 caps 10/23/21 [Rx Confirmed 10/25/21] amlodipine 5 mg tablet 5 mg PO DAILY #14 tabs 10/25/21 [Rx] aspirin 81 mg chewable tablet 81 mg PO DIRECTED 10/25/21 [History Confirmed 10/25/21] erythromycin 5 mg/gram (0.5 %) eye ointment 1 applic ophthalmic (eye) Q6H #3.5 grams 10/25/21 [Rx] prednisone 20 mg tablet 60 mg PO DAILY 7 days #21 tabs 10/25/21 [Rx] valacyclovir 1 gram tablet 1,000 mg PO Q8H 7 days #21 tabs 10/25/21 [Rx] warfarin 6 mg tablet 6 mg PO DAILY 10/25/21 [History Confirmed 10/25/21] Exam Physical Exam Vital Signs: Temp Pulse Resp BP Pulse Ox O2 Del Method 98 F 66 18 171/74 H 97 Room Air 10/28/21 00:20 10/28/21 02:47 10/28/21 02:47 10/28/21 02:47 10/28/21 02:47 10/28/21 02:47 Narrative: General: patient is alert and oriented HEENT: head atraumatic, normocephalic, moist mucous membranes, normal nose and ears, no throat lesions, normal conjunctiva Neck: supple no masses, no lymphadenopathy CVS: regular rate and rhythm, no murmurs or gallops Respiratory: clear to auscultation bilaterally, no wheezing or crackles, symmetric expansion GI: soft, nondistended, nontender, positive bowel sounds with no organomegaly Extremity: moves all extremities, no restrictions of movements, no calf tenderness, no edema Neuro: alert and oriented x3, left-sided Alvarado's Alvarado's, normal motor function Skin: dry, intact no rashes or lesions Results Lab Results Labs: Laboratory Last Values Corrected WBC 5.9 X10E3/uL (3.8-11.6) 10/28/21 01:45 Uncorrected WBC Count 5.9 x10E3/uL (4.5-11.0) 10/28/21 01:45 RBC 4.93 x10E6/uL (3.60-5.00) 10/28/21 01:45 Hgb 16.0 g/dL (11.8-15.4) H 10/28/21 01:45 Hct 47.7 % (34.0-46.4) H 10/28/21 01:45 MCV 96.7 fl (80-100) 10/28/21 01:45 MCH 32.4 pg (24.7-34.3) 10/28/21 01:45 MCHC 33.5 g/dL (32.0-35.0) 10/28/21 01:45 RDW 13.1 % (11.9-15.3) 10/28/21 01:45 Plt Count 213 x10E3/uL (150-450) 10/28/21 01:45 MPV 8.4 fl (6.3-10.7) 10/28/21 01:45 Neut % (Auto) 78.7 % (.) 10/28/21 01:45 Lymph % (Auto) 13.2 % (.) 10/28/21 01:45 [place] % (Auto) 7.6 % (.) 10/28/21 01:45 Eos % (Auto) 0.0 % (.) 10/28/21 01:45 Baso % (Auto) 0.5 % (.) 10/28/21 01:45 Neut # (Auto) 4.6 x10E3/uL (1.8-7.7) 10/28/21 01:45 Lymph # (Auto) 0.8 x10E3/uL (1.00-4.8) L 10/28/21 01:45 [place] # (Auto) 0.4 x10E3/uL (0.0-0.8) 10/28/21 01:45 Eos # (Auto) 0.0 x10E3/uL (0.0-0.45) 10/28/21 01:45 Baso # (Auto) 0.0 x10E3/uL (0.0-0.2) 10/28/21 01:45 Nucleated RBC % (auto) 0.0 % (0-0.5) 10/28/21 01:45 PT 30.7 Seconds (9.0-12.9) H 10/28/21 01:45 INR 2.7 10/28/21 01:45 APTT 45.5 Seconds (25.1-36.5) H 10/28/21 01:45 PHA Creatinine Clear 52.11 10/28/21 01:45 Sodium 132 mmol/L (136-146) L 10/28/21 01:45 Potassium 4.3 mmol/L (3.5-5.1) 10/28/21 01:45 Chloride 94 mmol/L (95-114) L 10/28/21 01:45 Carbon Dioxide 26.0 mmol/L (22.0-30.0) 10/28/21 01:45 BUN 29 mg/dL (9-23) H 10/28/21 01:45 Creatinine 0.96 mg/dL (0.44-1.03) 10/28/21 01:45 Est GFR ( Amer) > 60 mL/Min 10/28/21 01:45 Est GFR (Non-Af Amer) 55 mL/Min 10/28/21 01:45 Glucose 143 mg/dL (70-100) H 10/28/21 01:45 Calcium 9.4 mg/dL (8.2-10.2) 10/28/21 01:45 Total Bilirubin 0.8 mg/dL (0.3-1.2) 10/28/21 01:45 AST 25 U/L (10-42) 10/28/21 01:45 ALT 21 U/L (10-60) 10/28/21 01:45 Alkaline Phosphatase 57 U/L (32-92) 10/28/21 01:45 Troponin I High Sens 13 pg/mL (0-15) 10/28/21 01:45 B-Natriuretic Peptide 75.0 pg/mL (5-100) 10/28/21 01:45 Total Protein 7.6 gm/dL (6.1-7.9) 10/28/21 01:45 Albumin 3.9 gm/dL (3.2-5.5) 10/28/21 01:45 Globulin 3.7 gm/dL 10/28/21 01:45 Albumin/Globulin Ratio 1.1 10/28/21 01:45 Urine Color Yellow (Yellow) 10/28/21 03:00 Urine Appearance Clear (Clear) 10/28/21 03:00 Urine pH 6.0 (5.0-9.0) 10/28/21 03:00 Ur Specific [place] 1.012 (1.001-1.030) 10/28/21 03:00 Urine Protein Negative mg/dL (Negative) 10/28/21 03:00 Urine Glucose (UA) Normal mg/dL (Normal) 10/28/21 03:00 Urine Ketones Trace (Negative) H 10/28/21 03:00 Urine Occult Blood Negative (Negative) 10/28/21 03:00 Urine Nitrite Negative (Negative) 10/28/21 03:00 Urine Bilirubin Negative (Negative) 10/28/21 03:00 Urine Urobilinogen Normal mg/dL (Normal) 10/28/21 03:00 Ur Leukocyte Esterase Negative (Negative) 10/28/21 03:00 Digoxin 1.2 ng/mL (0.9-2.0) 10/28/21 01:45 A&P - Hospitalist Assessment/Plan (1) Weakness: Plan Assessment and plan *Generalized weakness/decreased functional declining ? This is subacute to chronic as its been going on for last 3 weeks ? Unknown etiology at this point ? Patient stated that she started on prednisone/Norvasc and lisinopril over the last week However her symptoms a started about 3 weeks ago but is gotten worse over the last week ? We will check B12/vitamin D/TSH and free T4 ? Suspicion for steroid-induced weakness and myopathy ? We will check CK ? We will do IV fluids of normal saline at 100 mL an hour ? We will check digoxin level *Chronic medical issues 1. A. fib, heart rate is controlled, continue with amiodarone and digoxin, Coumadin to be dosed by pharmacy 2. History of hypertension, continue home dose amlodipine/lisinopril 3. History of diastolic congestive heart failure, the patient is euvolemic, will hold her torsemide for now *DVT prophylaxis with Lovenox Documented By: Nguyễn Lopez MD 2 5 Signed By: <Electronically signed by Nguyễn Lopez MD> 10/28/21 0455 [facility] Work Phone: [phone] 296-396407-22-2022 History and physical note Author Nguyễn Langston [facility] October 28, 2021 4:55am Note Date/Time October 28, 2021 4:55 am [facility] [address] [place] [address] Hospitalist H&P Signed Patient: Erin Canales MR#: [id number] : 1935 Acct:[id number] Age/Sex: 86 / F Adm Date: 2 Loc: ER Room: Type: [facility] Attending Dr: Copies to: MD Summer Bernard, JUAN CARLOS Locke Jr, MD~ HPI DATE OF EXAMINATION: 10/28/21 CHIEF COMPLAINT: Weakness HISTORY OF PRESENT ILLNESS: pt is an 86 y/o female with history of A fib and recent diagnosis of Alvarado's palsy for which she was started on steroids about a week ago presented to the hospital due to worsening weakness over the last 3-week to the point that she isnot able to care for herself or do her daily activities, and hospital the patient stated that she has been feeling chilled however denied having any fever/chest pain/cough/sputum production or any other complaints, the patient denied having any joint stiffness or pain however she stated that the weakness gets worse in the morning once she wakes up and gets better by noon. Review of Systems Review of Systems All other systems reviewed & are negative unless noted below or in HPI PMFSH Vaccinated for COVID-19?: Unknown Medical History (Updated 10/28/21 @ 04:53 by Nguyễn Lopez MD) Arthritis Back pain Hyperlipidemia Hypertension Palpitation history of Surgical History History of cardiac catheterization x5 stents History of orthopedic surgery pinning of left hip Family History Father CAD (coronary artery disease) Mother CAD (coronary artery disease) Brother Brain tumor Social History Smoking Status: Unknown if ever smoked Substance Use Type: Unknown Meds Medications and Allergies Allergies ibuprofen [From Motrin] Allergy (Verified 10/21/21 09:08) Hives Home Medications acetaminophen 325 mg tablet 650 mg PO Q4H PRN Pain ##0 04/03/17 [Rx Confirmed 10/25/21] digoxin 125 mcg (0.125 mg) tablet 125 mcg PO DAILY ##0 04/03/17 [Rx Confirmed 10/25/21] lisinopril 10 mg tablet 10 mg PO DAILY ##0 04/03/17 [Rx Confirmed 10/25/21] multivitamin with folic acid 400 mcg tablet (Thera) 1 tab PO DAILY ##0 04/03/17 [Rx Confirmed 10/25/21] nortriptyline 25 mg capsule 25 mg PO QHS ##0 04/03/17 [Rx Confirmed 10/25/21] apple cider vinegar 500 mg tablet 500 mg PO DAILY 11/26/19 [History Confirmed 10/25/21] ascorbic acid (vitamin C) 500 mg tablet (Vitamin C) 4,000 mg PO DAILY 11/26/19 [History Confirmed 10/25/21] calcium carbonate 600 mg calcium (1,500 mg) tablet (Calcium) 600 mg PO BID 11/26/19 [History Confirmed 10/25/21] cholecalciferol (vitamin D3) 50 mcg (2,000 unit) tablet (Vitamin D3) 50 mcg PO DAILY 11/26/19 [History Confirmed 10/25/21] omega 3-bod-zag-fish oil 1,000 mg (120 mg-180 mg) capsule (Fish Oil) 1 cap PO BID 11/26/19 [History Confirmed 10/25/21] selenium 50 mcg tablet 100 mcg PO DAILY 11/26/19 [History Confirmed 10/25/21] torsemide 5 mg tablet 5 mg PO DAILY 11/26/19 [History Confirmed 10/25/21] vitamin E 268 mg (400 unit) capsule 800 unit PO DAILY 11/26/19 [History Confirmed 10/25/21] nitrofurantoin monohydrate/macrocrystals 100 mg capsule (Macrobid) 100 mg PO BID#10 caps 10/23/21 [Rx Confirmed 10/25/21] amlodipine 5 mg tablet 5 mg PO DAILY #14 tabs 10/25/21 [Rx] aspirin 81 mg chewable tablet 81 mg PO DIRECTED 10/25/21 [History Confirmed 10/25/21] erythromycin 5 mg/gram (0.5 %) eye ointment 1 applic ophthalmic (eye) Q6H #3.5 grams 10/25/21 [Rx] prednisone 20 mg tablet 60 mg PO DAILY 7 days #21 tabs 10/25/21 [Rx] valacyclovir 1 gram tablet 1,000 mg PO Q8H 7 days #21 tabs 10/25/21 [Rx] warfarin 6 mg tablet 6 mg PO DAILY 10/25/21 [History Confirmed 10/25/21] Exam Physical Exam Vital Signs: Temp Pulse Resp BP Pulse Ox O2 Del Method 98 F 66 18 171/74 H 97 Room Air 10/28/21 00:20 10/28/21 02:47 10/28/21 02:47 10/28/21 02:47 10/28/21 02:47 10/28/21 02:47 Narrative: General: patient is alert and oriented HEENT: head atraumatic, normocephalic, moist mucous membranes, normal nose and ears, no throat lesions, normal conjunctiva Neck: supple no masses, no lymphadenopathy CVS: regular rate and rhythm, no murmurs or gallops Respiratory: clear to auscultation bilaterally, no wheezing or crackles, symmetric expansion GI: soft, nondistended, nontender, positive bowel sounds with no organomegaly Extremity: moves all extremities, no restrictions of movements, no calf tenderness, no edema Neuro: alert and oriented x3, left-sided Alvarado's Alvarado's, normal motor function Skin: dry, intact no rashes or lesions Results Lab Results Labs: Laboratory Last Values Corrected WBC 5.9 X10E3/uL (3.8-11.6) 10/28/21 01:45 Uncorrected WBC Count 5.9 x10E3/uL (4.5-11.0) 10/28/21 01:45 RBC 4.93 x10E6/uL (3.60-5.00) 10/28/21 01:45 Hgb 16.0 g/dL (11.8-15.4) H 10/28/21 01:45 Hct 47.7 % (34.0-46.4) H 10/28/21 01:45 MCV 96.7 fl (80-100) 10/28/21 01:45 MCH 32.4 pg (24.7-34.3) 10/28/21 01:45 MCHC 33.5 g/dL (32.0-35.0) 10/28/21 01:45 RDW 13.1 % (11.9-15.3) 10/28/21 01:45 Plt Count 213 x10E3/uL (150-450) 10/28/21 01:45 MPV 8.4 fl (6.3-10.7) 10/28/21 01:45 Neut % (Auto) 78.7 % (.) 10/28/21 01:45 Lymph % (Auto) 13.2 % (.) 10/28/21 01:45 [place] % (Auto) 7.6 % (.) 10/28/21 01:45 Eos % (Auto) 0.0 % (.) 10/28/21 01:45 Baso % (Auto) 0.5 % (.) 10/28/21 01:45 Neut # (Auto) 4.6 x10E3/uL (1.8-7.7) 10/28/21 01:45 Lymph # (Auto) 0.8 x10E3/uL (1.00-4.8) L 10/28/21 01:45 [place] # (Auto) 0.4 x10E3/uL (0.0-0.8) 10/28/21 01:45 Eos # (Auto) 0.0 x10E3/uL (0.0-0.45) 10/28/21 01:45 Baso # (Auto) 0.0 x10E3/uL (0.0-0.2) 10/28/21 01:45 Nucleated RBC % (auto) 0.0 % (0-0.5) 10/28/21 01:45 PT 30.7 Seconds (9.0-12.9) H 10/28/21 01:45 INR 2.7 10/28/21 01:45 APTT 45.5 Seconds (25.1-36.5) H 10/28/21 01:45 PHA Creatinine Clear 52.11 10/28/21 01:45 Sodium 132 mmol/L (136-146) L 10/28/21 01:45 Potassium 4.3 mmol/L (3.5-5.1) 10/28/21 01:45 Chloride 94 mmol/L (95-114) L 10/28/21 01:45 Carbon Dioxide 26.0 mmol/L (22.0-30.0) 10/28/21 01:45 BUN 29 mg/dL (9-23) H 10/28/21 01:45 Creatinine 0.96 mg/dL (0.44-1.03) 10/28/21 01:45 Est GFR ( Amer) > 60 mL/Min 10/28/21 01:45 Est GFR (Non-Af Amer) 55 mL/Min 10/28/21 01:45 Glucose 143 mg/dL (70-100) H 10/28/21 01:45 Calcium 9.4 mg/dL (8.2-10.2) 10/28/21 01:45 Total Bilirubin 0.8 mg/dL (0.3-1.2) 10/28/21 01:45 AST 25 U/L (10-42) 10/28/21 01:45 ALT 21 U/L (10-60) 10/28/21 01:45 Alkaline Phosphatase 57 U/L (32-92) 10/28/21 01:45 Troponin I High Sens 13 pg/mL (0-15) 10/28/21 01:45 B-Natriuretic Peptide 75.0 pg/mL (5-100) 10/28/21 01:45 Total Protein 7.6 gm/dL (6.1-7.9) 10/28/21 01:45 Albumin 3.9 gm/dL (3.2-5.5) 10/28/21 01:45 Globulin 3.7 gm/dL 10/28/21 01:45 Albumin/Globulin Ratio 1.1 10/28/21 01:45 Urine Color Yellow (Yellow) 10/28/21 03:00 Urine Appearance Clear (Clear) 10/28/21 03:00 Urine pH 6.0 (5.0-9.0) 10/28/21 03:00 Ur Specific [place] 1.012 (1.001-1.030) 10/28/21 03:00 Urine Protein Negative mg/dL (Negative) 10/28/21 03:00 Urine Glucose (UA) Normal mg/dL (Normal) 10/28/21 03:00 Urine Ketones Trace (Negative) H 10/28/21 03:00 Urine Occult Blood Negative (Negative) 10/28/21 03:00 Urine Nitrite Negative (Negative) 10/28/21 03:00 Urine Bilirubin Negative (Negative) 10/28/21 03:00 Urine Urobilinogen Normal mg/dL (Normal) 10/28/21 03:00 Ur Leukocyte Esterase Negative (Negative) 10/28/21 03:00 Digoxin 1.2 ng/mL (0.9-2.0) 10/28/21 01:45 A&P - Hospitalist Assessment/Plan (1) Weakness: Plan Assessment and plan *Generalized weakness/decreased functional declining ? This is subacute to chronic as its been going on for last 3 weeks ? Unknown etiology at this point ? Patient stated that she started on prednisone/Norvasc and lisinopril over the last week However her symptoms a started about 3 weeks ago but is gotten worse over the last week ? We will check B12/vitamin D/TSH and free T4 ? Suspicion for steroid-induced weakness and myopathy ? We will check CK ? We will do IV fluids of normal saline at 100 mL an hour ? We will check digoxin level *Chronic medical issues 1. A. fib, heart rate is controlled, continue with amiodarone and digoxin, Coumadin to be dosed by pharmacy 2. History of hypertension, continue home dose amlodipine/lisinopril 3. History of diastolic congestive heart failure, the patient is euvolemic, will hold her torsemide for now *DVT prophylaxis with Lovenox Documented By: Nguyễn Lopez MD 2 0445 Signed By: <Electronically signed by Nguyễn Lopez MD> 10/28/21 0454 [facility] Work Phone: Evaluation + Plan note No data available for this section [facility] Diagnosis Onset Date Resolution Status Chronic anticoagulation acut e Dehydration acute Dizziness acute Generalized weakness acute History of atrial fibrillation acute Hypertension acute Impaired mobility and activities of daily living acute 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 CAD (coronary artery disease) chronic [facility] Work Phone: Evaluation note* Diagnosis Onset Date Resolution Status Chronic anticoagulation acut e Dehydration acute Dizziness acute Generalized weakness acute History of atrial fibrillation acute Hypertension chronic Impaired mobility and activities of daily living acute 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 CAD (coronary artery disease) chronic [facility] Work Phone: Evaluation noteNo assessment information available [facility] Work Phone: Evaluation note* Diagnosis Onset Date Resolution Status Chest pain acute [facility] Work Phone: evaluation note* Diagnosis Onset Date Resolution Status Angina pectoris acute Chest pain acute History of heart artery stent acute Hypertension chronic Hyponatremia acute Paroxysmal atrial fibrillation acute Sinus bradycardia acute CAD (coronary artery disease) chronic [facility] Work Phone: Evaluation note* Diagnosis Alvarado's palsy- Primary Alvarado's palsy Drooping of mouth [facility] Arteriosclerosis of coronary artery- Primary Paroxysmal atrial fibrillation (CMS/HCC) Atrial fibrillation senior care current use of anticoagulant therapy Pacemaker Cardiac pacemaker in situ Essential hypertension Unspecified essential hypertension Statin intolerance High risk medication use BMI 34.0-34.9,adult documented in this encounter [facility] Work Phone: History of Present illness NarrativeReturns for follow-up of problems as noted. She is doing well. She has no complaints whatsoever. Arrhythmia control is excellent sinus rhythm is maintained on amiodarone as noted. Blood pressure is also well controlled. She has no manifestations of coronary disease. Her lipid management was discussed again and she only wishes to take fish oil. The previous symptoms of cardiomyopathy she had in the past are no longer evident on current therapy with maintenance of sinus rhythm and because of all the above we'll continue as before. The merits of diet and weight loss were reviewed.[facility] 250 DO Work Phone: History of Present illness NarrativePatient returns in follow-up of problems as noted. In the interim she is done relatively well. She has no manifestations of coronary disease such as those that preceded her original diagnosis. Treatment and control of cardiovascular risk factors including her hypertension and hyperlipidemia is reviewed and no adjustments appear necessary. From time to time she has some palpitations and sense of im pending near syncope and I am concerned it could represent heart block and/or sick sinus syndrome. Because of this I recommended an event monitor. For the meantime, though, she will continue amiodarone as before and the high risk nature of this medication was reviewed. Lab chest x-ray and pulmonaryfunction studies are reviewed and appears no adjustments are necessary at this time.[place] [address] DO Work Phone: History of Present illness NarrativePatient returns in follow-up of problems as noted. In the interim she is done relatively well. She has no manifestations of coronary disease such as those that preceded her original diagnosis. Treatment and control of cardiovascular risk factors including her hypertension and hyperlipidemia is reviewed and no adjustments appear necessary. From time to time she has some palpitations and sense of im pending near syncope and I am concerned it could represent heart block and/or sick sinus syndrome. Because of this I recommended an event monitor. For the meantime, though, she will continue amiodarone as before and the high risk nature of this medication was reviewed. Lab chest x-ray and pulmonaryfunction studies are reviewed and appears no adjustments are necessary at this time.[facility] 250 DO Work Phone: History of Present illness Narrative* Patient returns in follow-up of problems as noted. In the interim she has had no angina or anginal equivalent symptomatology. Treatment of the risk factors for coronary atherosclerosis including hypertension and hyperlipidemia is reviewed and treatment is adequate and appropriate. She had a event monitor performed because of complaints of palpitations and review of that test result demonstrates no atrial fibrillation that requires treatment and only benign ectopy and not arrhythmic symptomatology. Because of this no changes in therapy appear necessary. * She was hospitalized multiple times recently for viral illness and Alvarado's palsy. As a consequence of all those trips a wide variety of tests were done including cardiac testing and it was all normal and/or favorable because of this no changes in therapy appear necessary. As before we advocated the merits of diet exercise and weight loss. [facility] [employer] DO Work Phone: History of Present illness Narrative* Patient returns for follow-up of problems as noted. She is doing well. She did, though, developed Alvarado's palsy and she was rather sick with it for months. Throughout that she had no cardiac complaints or symptoms. Recent pulmonary function studies demonstrate satisfactory x-ray and lab chemistries.Because of the Alvarado's palsy she could not get a good seal on the mouthpiece for pulmonary function studies results are abnormal and erroneous. Because of this they will not be acted upon but we will reassess possibly in a year. She is on a tiny dose of amiodarone and the risk of side effects is low. * She is doing well with antithrombotic therapy and this and maintenance of sinus rhythm with amiodarone have eliminated her stroke risk and palpitations. Her other cardiac risk factors which include hyperlipidemia and hypertension are well controlled. Her cardiomyopathy is asymptomatic and because of all the above we suggest continued therapy without change. The merits of diet and weight loss werereviewed. [facility] [employer] DO Work Phone: History of Present illness Narrative* The patient states she has been generally stable since the last visit. Comorbid Illnesses: hypertension and hyperlipidemia. * Symptoms: resolved chest pain at rest, denies exertional chest pain, stable dyspnea, stable fatigue, denies exercise intolerance, denies palpitations, denies edema, denies orthopnea, denies dizzinessand denies orthostatic dizziness. * Associated symptoms: no syncope. * Her symptoms do not limit her activities. * Disease Monitoring: The patient has had a stable weight. * Medications: the patient is adherent with her medication regimen. She denies medication side effects. [facility] [employer] [facility] Work Phone: History of Present illness Narrative* Patient returns in follow-up of problems as noted. In the interim she had been hospitalized and adjustments made in her medical therapy. She now presents with significant leg edema felt to be on the basis of amlodipine and I recommended that we stop that and change her blood pressure regimen with the addition of additional diuretics that will help with blood pressure as well as her dependent leg e cole * She reminds me that when she was in the hospital she had anginal discomfort and troponin elevationssuspicious for coronary disease and because of this I recommended stress testing. She is physicallyincapable of treadmill testing because of marked debility and advanced age and because of this pharmacologic stress testing with isotope imaging will be performed. * Her atrial arrhythmias fortunately none recurrent. Her high risk medication surveillance including chest x-ray and lab work is reviewed and found to be satisfactory. Control and/or management of her hypertension and hyperlipidemia is reviewed and felt to be adequate and appropriate. As before the merits of diet and weight loss were advocated. -[facility] 250 DO Work Phone: History of Present illness Narrative* Patient returns in follow-up of problems as noted. In the interim she had been hospitalized and adjustments made in her medical therapy. She now presents with significant leg edema felt to be on the basis of amlodipine and I recommended that we stop that and change her blood pressure regimen with the addition of additional diuretics that will help with blood pressure as well as her dependent leg e cole * She reminds me that when she was in the hospital she had anginal discomfort and troponin elevationssuspicious for coronary disease and because of this I recommended stress testing. She is physicallyincapable of treadmill testing because of marked debility and advanced age and because of this pharmacologic stress testing with isotope imaging will be performed. * Her atrial arrhythmias fortunately none recurrent. Her high risk medication surveillance including chest x-ray and lab work is reviewed and found to be satisfactory. Control and/or management of her hypertension and hyperlipidemia is reviewed and felt to be adequate and appropriate. As before the merits of diet and weight loss were advocated. [facility] 600 DO Work Phone: History of Present illness Narrative* Patient returns in follow-up of problems as noted. In the interim she had been hospitalized and adjustments made in her medical therapy. She now presents with significant leg edema felt to be on the basis of amlodipine and I recommended that we stop that and change her blood pressure regimen with the addition of additional diuretics that will help with blood pressure as well as her dependent leg e cole * She reminds me that when she was in the hospital she had anginal discomfort and troponin elevationssuspicious for coronary disease and because of this I recommended stress testing. She is physicallyincapable of treadmill testing because of marked debility and advanced age and because of this pharmacologic stress testing with isotope imaging will be performed. * Her atrial arrhythmias fortunately none recurrent. Her high risk medication surveillance including chest x-ray and lab work is reviewed and found to be satisfactory. Control and/or management of her hypertension and hyperlipidemia is reviewed and felt to be adequate and appropriate. As before the merits of diet and weight loss were advocated. -[facility] Work Phone: History of Present illness Narrative* Patient returns prematurely because of an abnormal stress test. She saw nurse clinician recently who put her on nitrates for symptomatology and she had dramatic improvement suggesting that she was experiencing anginal equivalent dyspnea. Because of this a stress test was ordered and the stress testproved to be positive. * We discussed this in great detail. Although she is of advanced age she is anticipating several surgical procedures in the near future (complex facial surgery) and such surgeries could be complicated by coronary disease if in fact it is not addressed. Because of this I recommended angiographic evalua tion. The possibility of ad hoc intervention was discussed. * I advised her that we would alert Dr. Michel to her surgical plans and suggest to him that he perform stenting or coronary intervention only if necessary, or, provide stents that would necessitate only a short course of dual antiplatelet therapy. * Other problems appear to be adequately addressed. Her blood pressure and cholesterol appear to be adequately addressed. She was reminded as before if the merits of diet and weight loss and she understands our recommendation. -[facility] [employer] DO Work Phone: History of Present illness Narrative* Patient returns prematurely because of an abnormal stress test. She saw nurse clinician recently who put her on nitrates for symptomatology and she had dramatic improvement suggesting that she was experiencing anginal equivalent dyspnea. Because of this a stress test was ordered and the stress testproved to be positive. * We discussed this in great detail. Although she is of advanced age she is anticipating several surgical procedures in the near future (complex facial surgery) and such surgeries could be complicated by coronary disease if in fact it is not addressed. Because of this I recommended angiographic evalua tion. The possibility of ad hoc intervention was discussed. * I advised her that we would alert Dr. Michel to her surgical plans and suggest to him that he perform stenting or coronary intervention only if necessary, or, provide stents that would necessitate only a short course of dual antiplatelet therapy. * Other problems appear to be adequately addressed. Her blood pressure and cholesterol appear to be adequately addressed. She was reminded as before if the merits of diet and weight loss and she understands our recommendation. -[facility] 250 DO Work Phone: [facility] Dis[facility] instructionsC[facility] Work Phone: Hospital Discharge instructionsAmbulatory Orders* Initiate Home Health Time Frame: 1 Day, Location: Determined By Patient * PT/OT/SP OutPatient Referral Time Frame: 1 Day, Location: Determined By Patient Additional Instructions Home Health to manage care: - Full code - PT/OT eval and treat - Routine vital signs - Medication management and education -[facility] Work Phone: [facility] Work Phone: Hospital Discharge instructions No data available for this section [facility] Additional Instructions DISCHARGE INSTRUCTIONS FOR ANGIOPLASTY/CORONARY/PERIPHERAL/STENT IMPLANT FOR ADULT ANTICOAGULATION -Since the greatest risk of a blood clot forming with the stent occurs in the first 2-3 weeks after implantation, you will need to take anticoagulants for at least 12-18 months. ANTICOAGULATION MEDICATION Aspirin 81mg once a day, Ticagrelor (Brilinta) 90mg twice a day x1 month then allowed to switch to PLAVIX/Clopidogrel 75 daily there afterwards STATIN MEDICATION none due to Allergy Drug-Eluting Stent (COLBY) DO NOT discontinue Brilinta/Aspirin during the first 1 month, may switch to PLAVIX/Clopidogrel/aspirin there afterwards regardless of what you are advised by your family doctor or pharmacist, without first calling the secretary book keeper who implanted the stent. If you require pain relief during this time, please take only ACETAMINOPHEN (TYLENOL)- NO additional aspirin or ibuprofen. DISCHARGE ACTIVITIES ARE FOLLOWS: First week after discharge: -Take it easy at home, no strenuous activity. -Do not lift or pull objects over 10-15 pounds, including children, and groceries for four weeks. If puncture site is at wrist do NOT lift more than three pounds for three days. - May walk up stairs. -May shower. -No excessive scrubbing of the affected site (groin). -May ride in car. -May resume sexual intercourse after 1-2 weeks. -No MRI for 12 days. -May drive in 4-7 days. -If puncture site is at the wrist do not manipulate the wrist for 24 hours, and no soaking wrist for three days. Second Week: -May take a bath -May start walking 3 times a week for 15-20 minutes at a leisurely pace. You should be able to carry on a conversation comfortably without feeling winded. -No strenuous activity as in jogging, running, weight lifting, stair steppers, etc. until the secretary book keeper approves these activities. Check with the secretary book keeper on your first follow-up visit. CALL YOUR PHYSICIAN at [phone]: -If bleeding should occur from the catheter insertion site- apply pressure to the site then immediately call us. -Report any fever, redness, drainage, increased swelling, or firmness at the catheter insertion site. Some bruising or slight swelling may be present at the time of discharge. -Should arm or leg become cold, numb, white, or blue, contact the secretary book keeper immediately. -IF you should experience episodes of angina, e.g. chest discomfort, heaviness, tightness, pressure burning with or without radiation to the neck, jaw, arms or back- use 1 Nitrostat tablet under your tongue every 5-10 minutes and up to three tablets. IF NO RELIEF, CALL 911 or GO TO THE NEAREST EMERGENCY ROOM. -Please notify our office if you have recurrent angina. -[Cardiac Rehab Education Provided. Participation in the Cardiopulmonary Rehabilitation program is recommended. Please call Central Scheduling at [phone] to schedule your appointment.] The attending secretary book keeper or [facility] nurse clinician should provide you with specific instructions regarding activity, diet, medications, and further follow up for you. Follow the medication instructions provided on your discharge. If the dosages and instructions on this sheet differ from the dosage and instructions on the bottle, follow the instructions on the bottle. [facility] is not responsible for incorrect prescription information provided by the patient during their visit. Do not stop your medications without consulting your health care provider. Please take the list with you to your next doctor's appointment.[facility] Work Phone: Progress note No data available for this section [facility] ([facility] Consultation (Routine) - Authorized Specialty Diagnoses / Procedures Referred By Contac t Referred To Contact Cardiology Diagnoses Arteriosclerosis of coronary artery Procedures Follow Up In Cardiology Mickey James APRN-CNP [facility] [facility] [address], [address] [address] Akhil Olivarez MD [facility] [address], [address] [address] Referral ID Status Reason Start Date Expiration Date V isits Requested Visits Authorized [id number] Authorized 02/26/2023 02/26/2024 1 1 * Cardiovascular (Routine) - Pending Review Specialty Diagnoses / Procedures Referred By Mary spears Referred To Contact Diagnoses Paroxysmal atrial fibrillation (CMS/HCC) High risk medication use Procedures ECG 12 lead (Clinic Performed) Mickey James APRN-CNP [facility] [facility] [address], [address] [address] Referral ID Status Reason Start Date Expiration Date V isits Requested Visits Authorized [id number] Pending Review 02/26/2023 02/26/[address] [facility] Work Phone: Summary Purpose Family History No Family History Records FoundUnknown Family Member Name Dates Details Family history of aortic ane urysm: Brother(V17.49, Z82.49) Status:Active Family history of congestive heart failure: Mother(V17.49, Z82.49) Status:Active Unknown Family Member Name Dates Details Family history of aortic ane urysm: Brother(V17.49, Z82.49) Status:Active Family history of congestive heart failure: Mother(V17.49, Z82.49) Status:Active Unknown Family Member Name Dates Details Family history of aortic ane urysm: Brother(V17.49, Z82.49) Status:Active Family history of congestive heart failure: Mother(V17.49, Z82.49) Status:Active Unknown Family Member Name Dates Details Family history of congestive heart failure: Mother(V17.49, Z82.49) Status:Active Family history of aortic ane urysm: Brother(V17.49, Z82.49) Status:Active Unknown Family Member Name Dates Details Family history of aortic ane urysm: Brother(V17.49, Z82.49) Status:Active Family history of congestive heart failure: Mother(V17.49, Z82.49) Status:Active Unknown Family Member Name Dates Details Family history of aortic ane urysm: Brother(V17.49, Z82.49) Status:Active Family history of congestive heart failure: Mother(V17.49, Z82.49) Status:Active Unknown Family Member Name Dates Details Family history of aortic ane urysm: Brother(V17.49, Z82.49) Status:Active Family history of congestive heart failure: Mother(V17.49, Z82.49) Status:Active Relationship Condition Age at Onset Recorded Date/T veto father Coronary artery disease Unknown Not Specified Coronary artery disease Unknown brother Neoplasm of brain Unknown Unknown Family Member Name Dates Details Family history of aortic ane urysm: Brother(V17.49, Z82.49) Status:Active Family history of congestive heart failure: Mother(V17.49, Z82.49) Status:Active Unknown Family Member Name Dates Details Family history of aortic ane urysm: Brother(V17.49, Z82.49) Status:Active Family history of congestive heart failure: Mother(V17.49, Z82.49) Status:Active Unknown Family Member Name Dates Details Family history of congestive heart failure: Mother(V17.49, Z82.49) Status:Active Family history of aortic ane urysm: Brother(V17.49, Z82.49) Status:Active Unknown Family Member Name Dates Details Family history of aortic ane urysm: Brother(V17.49, Z82.49) Status:Active Family history of congestive heart failure: Mother(V17.49, Z82.49) Status:Active Unknown Family Member Name Dates Details Family history of congestive heart failure: Mother(V17.49, Z82.49) Status:Active Family history of aortic ane urysm: Brother(V17.49, Z82.49) Status:Active Unknown Family Member Name Dates Details Family history of congestive heart failure: Mother(V17.49, Z82.49) Status:Active Family history of aortic ane urysm: Brother(V17.49, Z82.49) Status:Active Unknown Family Member Name Dates Details Family history of aortic ane urysm: Brother(V17.49, Z82.49) Status:Active Family history of congestive heart failure: Mother(V17.49, Z82.49) Status:Active Unknown Family Member Name Dates Details Family history of congestive heart failure: Mother(V17.49, Z82.49) Status:Active Family history of aortic ane urysm: Brother(V17.49, Z82.49) Status:Active Unknown Family Member Name Dates Details Family history of aortic ane urysm: Brother(V17.49, Z82.49) Status:Active Family history of congestive heart failure: Mother(V17.49, Z82.49) Status:Active Unknown Family Member Name Dates Details Family history of aortic ane urysm: Brother(V17.49, Z82.49) Status:Active Family history of congestive heart failure: Mother(V17.49, Z82.49) Status:Active Unknown Family Member Name Dates Details Family history of aortic ane urysm: Brother(V17.49, Z82.49) Status:Active Family history of congestive heart failure: Mother(V17.49, Z82.49) Status:Active Unknown Family Member Name Dates Details Family history of congestive heart failure: Mother(V17.49, Z82.49) Status:Active Family history of aortic ane urysm: Brother(V17.49, Z82.49) Status:Active Unknown Family Member Name Dates Details Family history of aortic ane urysm: Brother(V17.49, Z82.49) Status:Active Family history of congestive heart failure: Mother(V17.49, Z82.49) Status:Active Unknown Family Member Name Dates Details Family history of aortic ane urysm: Brother(V17.49, Z82.49) Status:Active Family history of congestive heart failure: Mother(V17.49, Z82.49) Status:Active Unknown Family Member Name Dates Details Family history of aortic ane urysm: Brother(V17.49, Z82.49) Status:Active Family history of congestive heart failure: Mother(V17.49, Z82.49) Status:Active Unknown Family Member Name Dates Details Family history of congestive heart failure: Mother(V17.49, Z82.49) Status:Active Family history of aortic ane urysm: Brother(V17.49, Z82.49) Status:Active Unknown Family Member Name Dates Details Family history of congestive heart failure: Mother(V17.49, Z82.49) Status:Active Family history of aortic ane urysm: Brother(V17.49, Z82.49) Status:Active Unknown Family Member Name Dates Details Family history of aortic ane urysm: Brother(V17.49, Z82.49) Status:Active Family history of congestive heart failure: Mother(V17.49, Z82.49) Status:Active Unknown Family Member Name Dates Details Family history of congestive heart failure: Mother(V17.49, Z82.49) Status:Active Family history of aortic ane urysm: Brother(V17.49, Z82.49) Status:Active Unknown Family Member Name Dates Details Family history of aortic ane urysm: Brother(V17.49, Z82.49) Status:Active Family history of congestive heart failure: Mother(V17.49, Z82.49) Status:Active Unknown Family Member Name Dates Details Family history of aortic ane urysm: Brother(V17.49, Z82.49) Status:Active Family history of congestive heart failure: Mother(V17.49, Z82.49) Status:Active Unknown Family Member Name Dates Details Family history of aortic ane urysm: Brother(V17.49, Z82.49) Status:Active Family history of congestive heart failure: Mother(V17.49, Z82.49) Status:Active Unknown Family Member Name Dates Details Family history of aortic ane urysm: Brother(V17.49, Z82.49) Status:Active Family history of congestive heart failure: Mother(V17.49, Z82.49) Status:Active Advance Directives No Advanced Directives Records Found Advance Directive Response Recorded Date/ Time Advance Directives No March 14, 2017 2:30pm Advance Directive Response Recorded Date/ Time Advance Directives No March 14, 2017 1:30pm Chief Complaint ERIN CANALES is being seen for a 6 month follow-up of.Order sent to [facility] for testing due in AprilMARIRVIN CANALES is being seen for a 6 month follow-up of. ERIN CANALES is being seen for a 6 month follow-up of.Amiodarone Order sent to [facility] for testing due in results.ERIN CANALES is being seen for a 2 month follow-up of.* Enclosed you will find an order form to have your testing completed at a facility of your choice. It is necessary for you to have a chest x-ray as well as lab work. These tests are needed if you are on one of the following medications: Cordarone, Pacerone, or Amiodarone. * If you are unable to have these test done please contact our office at [phone] and press option #4 so that we may assist you in the problems. * Thank you for your compliance with this testing. * The Staff * [facility] * Please have done June 2022 * Earlier f/u due to reported chest pain: had one episode but maybe more short of breath' * ERIN CANALES is being seen for chest pain and dyspnea. * Patient presents to the office today ambulatory with steady gait and cane. Last evaluated in clinicDr. Briggs February 2022. * Patient is being seen today due to reported episode of chest pain. She reports 1 episode of nonexertional chest discomfort, did not require nitroglycerin usage. Has noted no recurrent symptoms. * Her primary concern today is a 1 month history of shortness of breath if I walk any distance . Shehad no concerns coming in from the parking lot. She did report that walking into [employer] last week was more difficult , she then utilizes a motorized scooter. 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 She denies any type of exertional chest pain. Denies any real change in exercise capacity or functional tolerance. She denies symptoms prior to her 2009 PCI. She denies any type of palpitations. * There is no evidence of orthopnea, PND. Lung sounds are clear. She sleeps in a chair for comfort. October 2021 LVEF 55 to 60%. PFTs completed June 2022. * Discussed possibility of new onset dyspnea on exertion as anginal equivalent. Discussed options of observation, initiating nitrates, proceeding with perfusion study. She is concerned regarding the dyspnea on exertion but feels at my age I am not sure I would want any testing but if symptoms continued to persist she would want to keep up her current quality of life. After discussion, will initiate low-dose long-acting nitrate and she will return back in the office in 1 month to see if there isany benefit. If symptoms worsen or significant change in exercise capacity she would proceed with pe rfusion study. She is anticoagulated, denies any supratherapeutic INR or melena, hematemesis but for completeness we will check CBC to rule out any anemia as underlying etiology. * 1 month f/u: 'I am doing better these last couple weeks' * ERIN CANALES is being seen for a 1 month follow-up of dyspnea. * Patient presents to the office ambulatory with cane and steady gait. Last evaluated in clinic by myself 2022. At that time, she was seen for earlier follow-up due to concerns of progressive worseningdyspnea on exertion. Subsequent lab work showed no evidence of anemia with hemoglobin 12.8, hematocrit 41.0. I added isosorbide due to concerns of anginal equivalent and she has been compliant. We had a lengthy discussion regarding evaluation for progressive coronary artery disease and she pleasantly declined stress testing at that time. * She presents to the office today where she reports I am surprised I am doing as good as I am . Shehas noted improvement in her dyspnea on exertion with addition of isosorbide, denies any type of side effects. She reports it made a big difference . Prior to office visit she went into the mall andambulated for 20 straight minutes without concerns. 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 She reports that over the last 2 weeks she has not had to use nitroglycerin. 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 Her dyspnea on exertion has improved with addition of long-acting nitrates. She does report that after June 2022 office visit she was considering perfusion study because of howbad I was feeling but with response to medication she wants to continue to observe and discuss with Dr. Briggs at pending follow-up next month. * Otherwise her weight is up 6 pounds today, there is no significant edema. Upon questioning she had been out of her torsemide 3 days earlier this week and just resumed treatment yesterday. She continues to sleep in a chair for comfort. ERIN CANALES is being seen for a 6 month follow-up of.ERIN CANALES is being seen for a 6 month follow-up of.ERIN CANALES is being seen for a 6 month follow-up of.ERIN CANALES is being seen for F/U Abn stress test. ERIN CANALES is being seen for F/U Abn stress test.* Patient in the office today for a wound check status post PCM insertion on 11/22. Dressing was dry an d intact. Dressing removed had dried drainage on dressing. Incision was well approximated without signs or symptoms of infection. Noted healing ecchymosis noted. There was a small red blistered area from the dressing inferior to incision. This was reviewed with Dr. Akhil Olivarez MD. * TO Dr. Akhil Olivarez MD Chief Complaint and Reason for Visit Chief Complaint Sinuses L eye pain,L facial swelling Nausea,Dizziness Reason for Visit Chronic anticoagulat ion Dehydration Dizziness Generalized weakness History of atrial fibrillation Hypertension Impaired mobility and activities of daily living Left-sided Alvarado's palsy Weakness CAD (coronary artery disease) Chief Complaint Sinuses L eye pain,L facial swelling Nausea,Dizziness i48.0 z79.899 Reason for Visit Chronic anticoagulat ion Dehydration Dizziness Generalized weakness History of atrial fibrillation Hypertension Impaired mobility and activities of daily living Left-sided Alvarado's palsy Weakness CAD (coronary artery disease) Chief Complaint Sinuses L eye pain,L facial swelling Nausea,Dizziness i48.0 z79.899 Pre-Surgical Testing Reason for Visit Chronic anticoagulat ion Dehydration Dizziness Generalized weakness History of atrial fibrillation Hypertension Impaired mobility and activities of daily living Left-sided Alvarado's palsy Weakness CAD (coronary artery disease) Chief Complaint Sinuses L eye pain,L facial swelling Nausea,Dizziness i48.0 z79.899 Pre-Surgical Testing labs Reason for Visit Chronic anticoagulat ion Dehydration Dizziness Generalized weakness History of atrial fibrillation Hypertension Impaired mobility and activities of daily living Left-sided Alvarado's palsy Weakness CAD (coronary artery disease) Chief Complaint Sinuses L eye pain,L facial swelling Nausea,Dizziness i48.0 z79.899 Pre-Surgical Testing labs fall Reason for Visit Chronic anticoagulat ion Dehydration Dizziness Generalized weakness History of atrial fibrillation Hypertension Impaired mobility and activities of daily living Left-sided Alvarado's palsy Weakness CAD (coronary artery disease) Chief Complaint i48.0 z79.899 PT preferably;Keller palsy Chief Complaint PT preferably;Keller palsy Angina, Cardiomyopathy, HTN Chief Complaint PT preferably;Keller palsy Angina, Cardiomyopathy, HTN Angina, Cardiomyopathy, HTN Chief Complaint Angina, Cardiomyopat hy, HTN Angina, Cardiomyopathy, HTN cp Reason for Visit Chest pain Chief Complaint Angina, Cardiomyopat hy, HTN Angina, Cardiomyopathy, HTN cp Reason for Visit Angina pectoris Chest pain History of heart artery stent Hypertension Hyponatremia Paroxysmal atrial fibrillation Sinus bradycardia CAD (coronary artery disease) Chief Complaint Angina, Cardiomyopat hy, HTN Angina, Cardiomyopathy, HTN cp i48.0 z79.899 Reason for Visit Angina pectoris Chest pain History of heart artery stent Hypertension Hyponatremia Paroxysmal atrial fibrillation Sinus bradycardia CAD (coronary artery disease) Chief Complaint cp i48.0 z79.899 sss Reason for Visit Angina pectoris Chest pain History of heart artery stent Hypertension Hyponatremia Paroxysmal atrial fibrillation Sinus bradycardia CAD (coronary artery disease) Additional Source Comments INFORMATION SOURCE (unrecogn ized section and content) DATE CREATED AUTHOR 10/03/2017 [facility] DATE CREATED AUTHOR AUTHOR'S ORGANIZ ATION 08/04/2022 [employer] DATE CREATED AUTHOR AUTHOR'S ORGANIZ ATION 09/18/2022 [facility] DATE CREATED AUTHOR AUTHOR'S ORGANIZ ATION 09/18/2022 [facility] DATE CREATED AUTHOR AUTHOR'S ORGANIZ ATION 01/21/2023 [facility] DATE CREATED AUTHOR AUTHOR'S ORGANIZ ATION 02/28/2023 [facility] DATE CREATED AUTHOR AUTHOR'S ORGANIZ ATION 03/09/2023 [facility] DATE CREATED AUTHOR AUTHOR'S ORGANIZ ATION [facility]20[facility] DATE CREATED AUTHOR AUTHOR'S ORGANIZ ATION 04/11/2023 [facility] Reason for Visit (unrecogniz ed section and content) Reason Comments Follow Up Reason Comments Follow-up S/p pm insert Specialty Diagnoses / Procedures Referred By Contac t Referred To Contact Diagnoses Paroxysmal atrial fibrillation (CMS/HCC) High risk medication use Procedures ECG 12 lead (Clinic Performed) Mickey James, FREIGHT SERVICE INSPECTOR-LAST IRONER [facility] [place] [address] Referral ID Status Reason Start Date Expiration Date V isits Requested Visits Authorized [id number] Pending Review 02/26/2023 02/26/2024 1 1 Reason Comments General Questions Care Teams (unrecognized sec tion and content) Team Status: Inactive Member Role Status Dates Summer Tidwell , BILL COLLECTOR-C Primary Care Provider Active Razia Munoz MD RES Active Guillermo Sanders DO Emergency Provider Active Team Status: Active Member Role Status Dates Summer Tidwell BILL COLLECTOR-C Primary Care Provider Active Stephanie Locke Jr, MD Emergency Provider Active Nguyễn Lopez MD Admit Provider, Attending Jai goldstein Active Team Status: Inactive Member Role Status Dates Summer Tidwell BILL COLLECTOR-C Primary Care Provider Active Pramod Bess DO Emergency Provider Active Team Status: Active Member Role Status Dates Summer Tidwell BILL COLLECTOR-C Primary Care Provider Active Team Status: Inactive Member Role Status Dates Summer Tidwell BILL COLLECTOR-C Primary Care Provider Active Stephanie Locke Jr, MD Emergency Provider Active Nguyễn Lopez MD Admit Provider Active Kale Ross MD Attending Provider Active Matt Servin DO Other Provider Active Team Status: Inactive Member Role Status Dates Summer Tidwell BILL COLLECTOR-C Primary Care Provider Active Akhil Olivarez MD Attending Provider Active Team Status: Inactive Member Role Status Dates Summer Tidwell BILL COLLECTOR-C Primary Care Provider Active Doug Montana MD Attending Provider Active Team Status: Inactive Member Role Status Dates Summer Tidwell , BILL COLLECTOR-C Primary Care Provider Active Myron Villarreal DO Emergency Provider Active Team Status: Active Member Role Status Dates Summer Tidwell , BILL COLLECTOR-C Primary Care Provider Active Elizabeth Zimmerman , LYNN BILL COLLECTOR-C Attending Provider A ctive Team Status: Inactive Member Role Status Dates Summer Tidwell , BILL COLLECTOR-C Primary Care Provider Active Elizabeth Zimmerman , LYNN BILL COLLECTOR-C Attending Provider A ctive Team Status: Active Member Role Status Dates Los Chaudhary MD Primary Care Provider Active Team Status: Inactive Member Role Status Dates Pearl Michel , Attending Provider Active Los Chaudhary MD Primary Care Provider Active Team Status: Active Member Role Status Dates Los Chaudhary MD Primary Care Provider Active Philip Thompson DO Emergency Provider Active Jamie Hathaway MD Admit Provider, Attending Pro vider Active Team Status: Inactive Member Role Status Dates Los Chaudhary MD Primary Care Provider Active Philip Thompson , DO Emergency Provider Active Jamie Hathaway MD Admit Provider Active Danilo Drummond MD Attending Provider Active Team Status: Inactive Member Role Status Dates Los Chaudhary MD Primary Care Provider Active Akhil Olivarez MD Attending Provider Active Shipping And Receiving Assistant Relationship Specialty Start Date End Date Los Chaudhary MD [address] [place] [phone] PCP - General Family Medicine 12/05/22 Shipping And Receiving Assistant Relationship Specialty Start Date End Date Los Chaudhary MD [address] [place] [id number] PCP - General 07/05/22 Shipping And Receiving Assistant Relationship Specialty Start Date End Date Los Chaudhary MD [address] [place] [phone] PCP - General Family Medicine 12/05/22 Goals (unrecognized section and content) Goals may be documented in a n alternate section No data available for this sectionGoals may be documented in an alternate sectionGoals may be documented in an alternate sectionGoals may be documented in an alternate section No data available for this section Source Comments (unrecognize d section and content) In the event this informatio n is protected by the [facility] [place][Note 2] Confidentiality of Alcohol and Drug Abuse Patient Records regulations: The Federal rules restrict any use of the information to criminally investigate or prosecute any alcohol or drug abuse patient.[facility] CenterIn the event this information is protected by the Federal Confidentiality of Alcohol and Drug Abuse Patient Records regulations: The Federal rules restrict any use of the information to criminally investigate or prosecute any alcohol or drug abuse patient.[facility] FOR RECORDS PERTAINING TO PATIENTS WHO ARE OR HAVE BEEN ENROLLED IN A CHEMICAL DEPENDENCY/SUBSTANCEABUSE PROGRAM, SOME INFORMATION MAY BE OMITTED. This clinical summary was aggregated from multiple sources. Caution should be exercised in using it in the provision of clinical care. This summary normalizes information from multiple sources, and as a consequence, information in this document may materially change the coding, format and clinical context of patient data. In addition, data may be omitted in some cases. CLINICAL DECISIONS SHOULD BE BASED ON THE PRIMARY CLINICAL RECORDS. [id number]. provides no warranty or guarantee of the accuracy or completeness of information in this document.
== END 2023-04-20 13:58 | disposition home or self-care (01) ==
LOC: RAD 14:00
PROVIDERS: PCP Family Medicine; Visit Provider Family Medicine
DX: M19.90 Unspecified osteoarthritis, unspecified site (principal); M16.0 Bilateral primary osteoarthritis of hip; M51.36 Other intervertebral disc degeneration, lumbar region
CPT/HCPCS: 72100; 73502

== ENCOUNTER 2023-05-03 12:07 | Outpatient (RCR) | payer MEDICARE, SELFPAY | END 2023-05-10 14:25 | disposition home or self-care (01) | LOC: PT 12:07 | PROVIDERS: PCP Family Medicine; Visit Provider Family Medicine | DX: M16.9 Osteoarthritis of hip, unspecified (principal) | CPT/HCPCS: 97110; 97161 ==

== ENCOUNTER 2023-05-10 01:46 | Outpatient (RCR) | payer OTHER, SELFPAY | END 2023-06-07 17:26 | disposition home or self-care (01) | LOC: MM 01:46 | PROVIDERS: PCP Family Medicine; Visit Provider Internal Medicine | DX: Z51.81 Encounter for therapeutic drug level monitoring (principal); Z79.01 Long term (current) use of anticoagulants; I48.0 Paroxysmal atrial fibrillation | CPT/HCPCS: 85610; G0463 ==

== ENCOUNTER 2023-05-10 10:00 | Outpatient (RCR) | payer OTHER, SELFPAY | END 2023-05-11 13:11 | disposition home or self-care (01) | LOC: PT 10:00 | PROVIDERS: PCP Family Medicine; Visit Provider Family Medicine | DX: M16.9 Osteoarthritis of hip, unspecified (principal) | CPT/HCPCS: 97110 ==

== ENCOUNTER 2023-06-05 12:38 | Outpatient (OUT) | payer OTHER, SELFPAY ==
--- OUTSIDE RECORDS SUMMARY | 2023-06-05 13:03 | XMS_ITS | CCD ---
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 Name Role Phone JUSTIN BROWN Unavailable Unavailable JUSTIN BROWN Unavailable Unavailable Summer Tidwell Unavailable Unavailable Unavailable HARPREET Tidewll Primary Care Provider DO Pramod Bess Emergency Provider DO Guillermo Sanders Emergency Provider [phone] MD Stephanie Locke Jr Emergency Provider Al MD Nguyễn Askew Admit Provider Al MD Nguyễn Askew Attending Provider MD Kale Ross Attending Provider DO Matt Servin Other Provider [phone] MD Akhil Olivarez Attending Provider MD Doug Montana Attending Provider DO Myron Villarreal Emergency Provider [phone] Los Chaudhary Primary Care Physician HARPREET Tidwell Breonna Primary Care Provider MD Akhil Olivarez Attending Provider LYNN Zimmerman Attending Provider Los Chaudhary Unavailable HARPREET Tidwell Breonna Primary Care Provider MD Akhil Olivarez Attending Provider LYNN Zimmerman Attending Provider NEENA ., DR MADISON Primary Care Unavailable FAWWAD, REIS H Admitting [...] HOY ., DR MADISON Primary Care Unavailable CALLY-JACOB, MICKEY Attending Unavailable MARYANNE HERNANDEZNA Consulting Unavailable HOY ., DR MADISON Attending [...] Consulting Unavailable YAW, SUMMER Primary Care Unavailable NEENA ., DR MADISON Admitting Unavailable YAW, SUMMER Primary Care Unavailable NEENA ., DR MADISON Attending Unavailable FAWWAD, REIS H Attending Unavailable YAW, SUMMER Primary Care Unavailable FAWWAD, REIS H Admitting Unavailable YAW, SUMMER Primary Care Unavailable YAW, SUMMER Admitting Unavailable YAW, SUMMER Attending Unavailable YAW, SUMMER Consulting Unavailable [id number], [id number] Attending Unavailable Dr. Los Chaudhary Primary Care Unavail able Yaw, LINUX ADMIN-C Summer Breonna Primary Care Provider DO Pearl Michel Attending Provider MD Los Chaudhary Primary Care Provider [phone] DO Philip Thompson Emergency Provider MD Jamie Hathaway Admit Provider MD Jamie Hathaway Attending Provider DO Philip Thompson Emergency Provider MD Jamie Hathaway Admit Provider MD Danilo Drummond Attending Provider MD Akhil Olivarez Attending Provider Los Chaudhary MD Primary Care Provider Dr. Akhil Michel Attending Ruma ilaishwarya Chaudhary, Dr. Los Carr Primary Care Unavail able Neena, Dr. Los Carr Primary Care Unavail able Jacob, MsRadha Alamo Attending Jamari James, Ms. Mickey Alamo Referring Jamari Chaudhary, Dr. Los Carr Primary Care Unavail able Sher ELLIOTT, Dr. Akhil Higginbotham Attending Unavailable Sher ELLIOTT, Dr. Akhil Higginbotham Referring Unavailable Neena, Dr. Los Carr Primary Care Unavail able Sher ELLIOTT, Dr. Akhil Higginbotham Attending Unavailable Sher ELLIOTT, Dr. Akhil Higginbotham Referring Unavailable Jacob, MsRadha Alamo Attending Jamari James, Ms. Mickey Alamo Referring Jamari Chaudhary, Dr. Los Carr Primary Care Unavail able McGuinn II, Dr. Akhil Higginbotham Attending Unavailable McGuinn II, Dr. Akhil Higginbotham Referring Unavailable Neena, Dr. Los Carr Primary Care Unavail able McGuinn II, Dr. Akhil Higginbotham Attending Unavailable McGuinn II, Dr. Akhil Higginbotham Referring Unavailable Honhi, Dr. Los Carr Primary Care Unavail able McGuinn II, Dr. Akhil Higginbotham Attending Unavailable McGuinn II, Dr. Akhil Higginbotham Referring Unavailable Neena, Dr. Los Carr Primary Care Unavail able Neena, Dr. Los Carr Primary Care Unavail able Neena, Dr. Los Carr Primary Care Unavail able Neena, Dr. Los Carr Primary Care Unavail able McGuinn II, Dr. Akhil Higginbotham Attending Unavailable Neena, Dr. Los Carr Primary Care Unavail able Neena, Dr. Los Carr Primary Care Unavail able Neena, Dr. Los Carr Primary Care Unavail able Anand, Dr. Akhil Boyer Attending Unava ilable Neena, Dr. Los Carr Primary Care Unavail able Neena, Dr. Los Carr Primary Care Unavail able MD Los Chaudhary Primary Care Provider [phone] DO Philip Thompson Emergency Provider MD Jamie Hathaway Admit Provider MD Danilo Drummond Attending Provider MD Akhil Olivarez Attending Provider Los Chaudhary MD Primary Care Provider [phone] MICKEY JAMES Attending Unavailable LOS CHAUDHARY Primary Care Unavailable REFERRAL, SELF Admitting Unavailable REFERRAL, SELF Attending Unavailable REFERRAL, SELF Referring Unavailable Los Chaudhary Consulting Unavailable MD Los Chaudhary Consulting Unavailable PADMAJA SAWANT Referring Unavaila ble ADRIAN MAIER Primary Care Unavailable SHWETA SOL Attending Unavailable SHWETA SOL Admitting Unavailable LOS CHAUDHARY Primary Care Unavailable SHWETA SOL Attending Unavailable SHWETA SOL Attending Unavailable LOS CHAUDHARY Primary Care Unavailable LOS CHAUDHARY Primary Care Unavailable ROSALVA LEMOS Attending Unavailable LOS CHAUDHARY Primary Care Unavailable ROSALVA LEMOS Attending Unavailable SHWETA SOL Referring Unavailable LOS CHAUDHARY M Primary Care Unavailable SHWETA SOL Attending Unavailable SHWETA SOL Referring Unavailable YA CHAUDHARYLAS M Primary Care Unavailable MD Los hCaudhary Primary Care Provider [phone] MD Akhil Olivarez Attending Provider Pearl Michel Admitting Unavailable Pearl Michel Attending Unavailable Los Chaudhary M Primary Care Unavailable NeenaLos M Primary Care Unavailable Akhil Olivarez Attending Unavail able Akhil Olivarez Admitting Unavail able Akhil Olivarez Admitting Unavail able Sumannhi, Los M Primary Care Unavailable Akhil Olivarez Attending Unavail able Ashely Arguelles Consulting Unavailable Jamie Hathaway Admitting Unavailable Danilo Drummond Attending Unavailable Los Chaudhary M Primary Care Unavailable Pearl Michel Consulting Unavailable Bg [place] Consulting Unavailable Akhil Olivarez Consulting Unavail able Millie Drew Consulting Unavailable Lyle Lane Consulting Unavailab Mickey Rapp Consulting Unavailable Pretty Cheema Consulting Unavailable Joanne Barnes Consulting Unavailab Leslye Barron Consulting Unavailable Joanne Montes Consulting Unavailable Patricia Lawson Consulting Unavailable Pearl Michel Admitting Unavailable Pearl Michel Attending Unavailable Los Chaudhary M Primary Care Unavailable Akhil Olivarez Admitting Unavail able Los Chaudhary M Primary Care Unavailable Akhil Olivarez Attending Unavail able Akhil Olivarez Attending Unavail able Neena, Los M Primary Care Unavailable Akhil Olivarez Admitting Unavail able Akhil Olivarez Admitting Unavail able Summer Tidwell Primary Care Unavailable Akhil Olivarez Attending Unavail able Summer Tidwell Breonna Primary Care Unavailable Elizabeth Zimmerman Admitting Unavailab le Elizabeth Zimmerman Attending Unavailab le Allergies Allergy Classification Reported Allergen(s) Allergy Type Date of Onset Reaction(s) Facility (20 sources) ibuprofen; Translations: [ibuprofen] Drug Allergy 3 Unknown (qualifier value), Unknown, [facility] Repository (20 sources) Hmg-Coa Reductase Inhibitors (Statins); Translations: [Statins] Allergy to drug (finding) Myalgia, Other [facility] Repository (20 sources) Ibuprofen; Translations: [Motrin TABS] Drug Allergy Hives [facility] 600 DO Work Phone: (20 sources) Beta-Adrenergic Germán; Translations: [Beta Adrenergic Blockers] Allergy to drug (finding) Bradycardia [facility] y 250 DO Work Phone: (2 sources) HMG-CoA reductase inhibitor; Translations: [statins] Drug allergy Walking disability (finding) [facility] (2 sources) Ibuprofen; Translations: [Motrin] Drug Allergy 2 [facility] Repository (7 sources) HMG-CoA reductase inhibitor; Translations: [[id number] A REDUCTASE INHIBITORS] Drug Intolerance 3 Other: See Comments, Myalgia, Other [place] (2 sources) beta-Blocking agent; Translations: [BETA-BLOCKERS (BETA-ADRENERGI C BLOCKING AGTS)] Drug Allergy 3 Other [facility] Medications Current Medications Medication Drug Class(es) Dates Sig (Normalized) Sig (Original) acetaminophen 500 mg oral tablet (20 sources) Start: 04-24-2023 End: 05-28-2023 take 2 tablets by mouth every six hours as needed for pain, then take 1-2 tablets by mouth every six hours as needed for pain acetaminophen (TYLENOL) 500 mg tablet Take 2 tablets by mouth every 6 hours for 5 days, THEN 1 to 2 tablets every 6 hours as needed for pain. 90 tablet 1 04/24/2023 05/28/2023 Active Start: 11-24-2022 take 650 mg by mouth [...] 03, 2017 12:00am September 22, 2022 8:04am Comment on above: Take 2 tablets by mo uth every 6 hours for 5 days, THEN 1 to 2 tablets every 6 hours as needed for pain. amiodarone hydrochloride 100 mg oral tablet (20 sources) Antiarrhythmic Start: End: take 100 mg by mouth once daily Amiodarone Active 100 MG PO Daily November 24, 2022 9:51am Start: 07-07-2022 amiodarone (PA CERONE) 200 mg tablet Take 100 mg by mouth two times a day. 0 07/07/2022 Active Start: 07-07-2022 take 1 tablet by natalia once daily amiodarone (Pacerone) 200 mg tablet [...] above: Take 200 mg by mouth . Take 100 mg by mouth two times a day. apple cider vinegar 500 mg oral tablet (16 sources) Start: 11-26-2019 take 500 mg by mouth once daily Apple Cider Vinegar Active 500 MG PO Daily November 25, 2019 11:00pm Comment on above: Take 1 tablet by natalia th once daily. ascorbic acid 1000 mg oral tablet (20 [...] 03, 2017 12:00am November 26, 2019 3:18pm take 1 tablet by natalia th once daily Ascorbic Acid 1,000 mg tablet Take 1 tablet by mouth once daily. 0 Active Comment on above: Take 1 tablet by natalia th once daily. aspirin 81 mg chewable tablet (20 sources) Platelet Aggregation Inhibitor, Nonsteroidal Anti-inflammatory Drug Start: take 1 tablet by mouth two times [...] AND SUNDAY Start: 10-30-2018 End: 10-25-2021 take 325 mg by mouth once daily Aspirin Discontinued 3 25 MG PO Daily November 25, 2019 11:00pm October 25, 2021 10:42am Start: 09-18-2018 take 1 tablet by natalia th once daily aspirin 325 mg Oral EC Tab 325 mg = 1 tab(s), Oral, Daily, Refills(s) 0 Start Date: 09/18/18 Status: Ordered Aspirin EC 81 MG TBEC TAKE 1 TABLET DAILY TWICE WEEKLY. Quantity: 90 Refills: 3 Ordered: 28-Nov-2021 Akhil Olivarez MD Active Comment on above: Take 81 mg by mouth two times a week. Sunday and Sunday Calcium (2 sources) Phosphate Binder, Calcium Start: [...] 0 Refills: 0 Ordered: 15-Apr-2021 DO Active Comment on above: Take by mouth two ti mes a day. Qhapaxnve-Iebxetaq-R or-Hyalur ([facility]) 40-10-5-3.3 mg Tablet (7 sources) Start: 09-22-2022 take 1 tablet by mouth once daily Cartilage-Collagen -Bor-Hyalur ([facility]) 40-10-5-3.3 mg Tablet Active 1 TAB PO Daily September 21, 2022 11:00pm Start: 09-22-2022 take 1 tablet by natalia th once daily Gtpxeuviu-[place]-Bpq-Hyalur ([facility]) 40-10-5-3.3 mg Tablet Active 1 TAB PO Daily September 22, 2022 12:00am cholecalciferol 0.05 mg oral tablet (20 sources) Vitamin D Start: 11-26-2019 take 1 tablet by mouth once daily Cholecalciferol (Vitamin D3) (Vitamin D3) 50 mcg (2,000 unit) Tablet Active 50 MCG PO Daily November 25, 2019 11:00pm take 1 capsule by mouth once shelly ly cholecalciferol (Vitamin D-3) 50 mcg (2,000 unit) capsule Take 1 capsule (50 mcg) by mouth once daily. 0 Active clindamycin 300 mg oral capsule (4 sources) Lincosamide Antibacterial Start: 11-23-2022 take 600 mg by mouth three times daily Clindamycin Hcl Active 600 MG PO Three times daily 12 November 22, 2022 11:00pm clopidogrel 75 mg oral tablet (15 sources) P2Y12 Platelet Inhibitor Start: 09-25-2022 Clopidogrel (Plavix) 75 mg tablet Active 75 MG PO Daily 90 September 24, 2022 11:00pm Discontinue Brilinta after 30 days and then initiate clopidogrel daily Comment on above: Take 75 mg by mouth once daily. cobamamide 0.1 mg / vitamin b12 5 mg sublingual tablet (6 sources) Vitamin B12 Start: 09-25-2022 Cyanocobalamin -Cob [...] Comment on above: Take 0.125 mg by natalia th. docosahexaenoic acid 120 mg / eicosapentaenoic acid 180 mg oral capsule (20 sources) take 1 capsule by mouth once daily fish oil concentrate ([place]-3) 120-180 mg capsule Take 1 capsule (1 [...] 0 Ordered: 21-Sep-2021 DO Active oxyquinoline sulfate 0.61168 mg/mg / sodium dodecyl sulfate 0.0001 mg/mg vaginal gel (2 sources) Start: 02-20-2019 Trimo-Beal 0.025% vaginal gel with applicator See Instructions, 1 tube(s), Refill(s) 2, Use with cleaning of pessary, [id number] Start Date: 02/20/19 Status: Ordered Fish Oils (2 sources) Start: 10-30-2018 Fish Oil Oral, Refill(s) 0 Start Date: 10/30/18 Status: Ordered hydroCHLOROthiazide 12.5 mg / lisinopril 10 mg oral tablet (17 sources) Thiazide Diuretic, Angiotensin Converting Enzyme Inhibitor [...] 11:00pm Start: 07-05-2022 take 1 tablet by natalia th once daily Isosorbide Mononitrate ER 30 MG Oral Tablet Extended Release 24 Hour TAKE 1 TABLET DAILY. Quantity: 90 Refills: 3 Ordered: 02-Aug-2022 Mickey York Start : 05-Jul-2022 Active when ready for next refill will get 90 days Comment on above: TAKE 1 TABLET BY NATALIA TH ONCE DAILY DIRECTED. DOSE INCREASED lisinopril 10 mg oral tablet (20 sources) [...] Start: 10-29-2012 take 2 tablets by mo [facility] once daily lisinopril 5 mg tablet Take 10 mg by mouth once daily. 0 10/29/2012 Active Comment on above: Take 10 mg by mouth once daily. mineral oil 0.2 mg/mg / petrolatum 0.8 mg/mg ophthalmic ointment (7 sources) Start: 09-22-2022 White Petrolatum-Mineral Oil (Soothe Night Time Lubricant) 80-20 % Ointment Active 1 APPLIC EYE-LEFT Daily September 21, 2022 11:00pm Multivitamin preparation (10 sources) Start: 01-10-2022 take 1 tablet by mouth once daily Multivitamin Active 1 TAB PO Daily January 09, 2022 11:00pm Start: 01-10-2022 take 1 tablet by [facility] once daily Multivitamin Active 1 TAB PO Daily January 10, 2022 12:00am nitroglycerin 0.4 mg sublingual tablet (20 sources) Nitrate Vasodilator Start: 06-29-2022 Nitroglyce rin Active 0.4 MG SUBLINGUAL As Directed September 21, 2022 11:00pm Start: 06-27-2022 Nitroglycerin 0.4 MG Sublingual Tablet Sublingual TAKE DIRECTED. Quantity: 25 Refills: 11 Ordered: 29-Jun-2022 Akhil Olivarez MD Start : 27-Jun-2022 Active nitroglycerin camejo blingual (NITROSTAT) 0.6 mg SL tablet Dissolve 0.6 mg under the tongue every 5 minutes as needed for chest pain. 0 Active Comment on above: Dissolve 0.6 mg unde r the tongue every 5 minutes as needed for chest pain. nortriptyline 25 mg oral capsule (20 sources) Tricyclic Antidepressant Start: 06-19-20 23 take 25 mg by mouth once daily [...] 03, 2017 12:00am September 22, 2022 8:09am [place] 9-Ezb-Kfr-Fish Oil (Fish Oil) 1,000 mg (120 mg-180 mg) Capsule (15 sources) Start: 11-26-2019 take 1 capsule by mouth once daily [place] 0-Dce-Dhd-Fish Oil (Fish Oil) 1,000 mg (120 mg-180 mg) Capsule Active 1 CAP PO Daily November 25, 2019 11:00pm Start: 11-26-2019 take 1 capsule by mo ut once daily [place] 6-Rga-Yim-Fish Oil (Fish Oil) 1,000 mg (120 mg-180 mg) Capsule Active 1 CAP PO Daily November 26, 2019 12:00am Start: 11-26-2019 take 1 capsule by mo uth twice daily [place] 4-Otv-Jns-Fish Oil (Fish Oil) 1,000 mg (120 mg-180 mg) Capsule Active 1 CAP PO Twice daily November 25, 2019 11:00pm Start: 11-26-2019 take 1 capsule by mo ut twice daily [place] 4-Zei-Fya-Fish Oil (Fish Oil) 1,000 mg (120 mg-180 mg) Capsule Active 1 CAP PO Twice daily November 26, 2019 12:00am pantoprazole 20 mg delayed release oral tablet (4 sources) Proton Pump Inhibitor Start: 11-24-2022 take 1 tablet by mouth once daily Pantoprazole (Protonix) 20 mg tablet,delayed release (DR/EC) Active 20 MG PO Daily 60 November 23, 2022 11:00pm Selenium (15 sources) Start: 11-26-2019 take 100 ug by [...] 21, 2022 11:00pm Start: 11-26-2019 End: 09-22-2022 take 5 mg by mouth once daily Torsemide Discontinued 5 MG PO Daily November 25, 2019 11:00pm September 22, 2022 8:13am take 2 tablets by mo uth once daily in the morning Torsemide 5 MG Oral Tablet TAKE 2 TABLETS EVERY MORNING DAILY. Quantity: 0 Refills: 0 Ordered: 01-Jun-2022 DO Active Comment on above: Take 5 mg by mouth. Vitamin B6 (2 sources) Start: 10-30-2018 Vitamin B6 Daily, Refills(s) 0 Start Date: 10/30/18 Status: Ordered Vitamin D3 (2 sources) Start: 10-30-2018 Vitamin D3 Refills(s) 0 Start Date: 10/30/18 Status: Ordered vitamin e 180 mg oral capsule (18 sources) Start: 11-26-2019 take 800 [IU] by mouth once daily Vitamin E Active 800 UNIT PO Daily November 25, 2019 11:00pm Start: 10-30-2018 take 1 tablet by natalia th once daily Vitamin E 100 unit/0.25 mL drop Take 1 tablet by mouth once daily. 0 10/30/2018 Active Start: 10-30-2018 vitamin E Oral , Daily, Refills(s) 0 Start Date: 10/30/18 Status: Ordered Comment on above: Take 1 tablet by natalia th once daily. warfarin sodium 6 mg oral tablet (20 [...] Take 2.5 mg by mouth as directed. 0 07/23/2022 Active Start: 10-25-2021 End: 09-22-2022 take 6 mg by mouth once Warfarin Active 6 MG PO ever y Sunday, Sunday, and Wednesday September 21, 2022 11:00pm take 1 tablet by mouth once warf angus (Coumadin) 3 mg tablet Take 1 tablet (3 mg) by mouth see administration instructions. Per [facility] 0 Active Comment on above: Take 2.5 mg by mouth . Take 2.5 mg by mouth as directed. Completed/Discontinued Medications Medication Drug Class(es) Dates Sig (Normalized) Sig (Original) acetaminophen 325 mg / oxyCODONE hydrochloride 5 mg oral tablet (20 sources) Opioid Agonist Start: 03-18-2017 End: 04-03-2017 take 1 tablet by mouth every six hours as needed Oxycodone-Acetamin ophen Discontinued 1 - 2 TAB PO Q6H [...] Channel Germán Start: 10-25-2021 End: 09-22-2022 take 5 mg by mouth once daily Amlodipine Discontinued 5 MG PO Daily October 24, 2021 11:00pm September 22, 2022 8:06am Comment on above: Take 5 mg by mouth o nce daily. calcium carbonate 1250 mg / cholecalciferol 200 unt oral tablet (15 sources) Vitamin D Start: 04-03-2017 End: 11-26-2019 take 1 tablet by mouth twice daily Calcium Carbonate-Vitamin D3 ([place] Calcium-Vit D3) 500 mg(1,250mg) -200 unit Tablet Discontinued 1 TAB PO Twice daily 0 April 03, 2017 12:00am November 26, 2019 3:17pm carvedilol 12.5 mg oral tablet (20 sources) alpha-Adrenergic Germán, [...] Comment on above: Take 1 tablet by natalia twice daily. cephalexin 500 mg oral capsule (10 sources) Cephalosporin Antibacterial Start: End: take 500 mg by mouth twice daily Cephalexin Discontinued 500 MG PO Twice daily 26 01January 09, 2022 11:00pm September 22, 2022 8:08am colestipol hydrochloride 1000 mg oral tablet (4 sources) Bile Acid Sequestrant Start: End: take 1 g by mouth once daily Colestipol Discontinued 1 GM PO Daily November 22, 2022 11:00pm November 23, 2022 4:42pm cyclobenzaprine hydrochloride 5 mg oral tablet (15 sources) Muscle Relaxant Start: End: take 5 mg by mouth every eight hours Cyclobenzaprine Discontinued 5 MG PO Q8H 0 April 03, 2017 12:00am November 26, 2019 3:12pm 1 ml denosumab 60 mg/ml prefilled syringe (1 source) RANK Ligand Inhibitor denosumab (PROLIA) 60 mg/mL Inject subcutaneously once every 6 months. 0 Active Comment on above: Inject subcutaneousl y once every 6 months. diphenhydrAMINE hydrochloride 25 mg oral capsule (15 sources) Histamine-1 Receptor Antagonist Start: 017 End: take 25 mg by mouth every six hours Diphenhydramine Hcl Discontinued 25 MG PO Q6H 0 April 03, 2017 12:00am November 26, 2019 3:14pm docusate sodium 100 mg oral capsule (16 sources) Start: 024 take 1 capsule by mouth every twelve hours as needed docusate sodium (COLACE) 100 mg capsule Take 1 capsule by mouth two times a day as needed for constipation. 30 capsule 0 04/24/2023 Active Start: 04-03-2017 End: 11-26-2019 take 100 mg by mouth twice daily Docusate Sodium Discontinued 100 MG PO Twice daily 0 April 03, 2017 12:00am November 26, 2019 3:12pm Comment on above: Take 1 capsule by mo [facility] two times a day as needed for constipation. erythromycin 0.005 mg/mg ophthalmic ointment (20 sources) Macrolide, Macrolide Antimicrobial Start: 01-10-2022 End: 09-22-2022 Erythromycin Discontinued 1 APPLIC OPHTHALMIC Three times daily January 10, 2022 4:45pm September 22, 2022 8:09am Start: 10-25-2021 End: 01-10-2022 Erythromycin Discontinued 1 APPLIC OPHTHALMIC Q6H 3.5 October 24, 2021 11:00pm January 10, 2022 4:46pm heparin sodium, porcine 5000 unt/ml injectable solution (15 sources) Unfractionated Heparin, Anti-coagulant Start: 04-03-2017 End: 11-26-2019 inject 5000 [IU] by subcutaneous injection every twelve hours Heparin (Porcine) Discontinued 5000 UNIT SUBCUT Every 12 hours 0 April 03, 2017 12:00am November 26, 2019 3:11pm hydroCHLOROthiazide 12.5 mg oral tablet (15 sources) Thiazide Diuretic Start: 04-03-2017 End: 10-25-2021 take 12.5 mg by mouth once daily Hydrochlorothiazide Discontinued 12.5 MG PO Daily 0 April 03, 2017 12:00am October 25, 2021 10:43am levoFLOXacin 750 mg oral tablet (15 sources) Quinolone Antimicrobial Start: 03-18-2017 End: 03-25-2017 take 750 mg by mouth every twenty-four hours Levofloxacin Discontinued 750 MG PO Q24H 7 March 18, 2017 12:00am March 25, 2017 12:02am levothyroxine sodium 0.05 mg oral tablet (3 sources) l-Thyroxine Start: 01-01-2023 take 1 tablet by mouth once levothyroxine (SYNTHROID) 50 mcg tablet Take 1 tablet by mouth every afternoon. 0 01/01/2023 Active Comment on above: Take 1 tablet by natalia every afternoon. linseed oil 1000 mg oral capsule (1 source) take 1 capsule by mouth once daily Flaxseed Oil 1,000 mg cap Take 1 capsule by mouth once daily. 0 Active Comment on above: Take 1 capsule by mo [facility] once daily. meclizine hydrochloride 25 mg oral tablet (14 sources) Antiemetic Start: 10-29-2021 End: 09-22-2022 take 25 mg by mouth every eight hours Meclizine Discontinued 25 MG PO Q8H October 28, 2021 11:00pm September 22, 2022 8:09am over the counter MULTIVITAMIN ORAL (1 source) take 1 tablet by mouth once daily MULTIVITAMIN ORAL Take 1 tablet by mouth once daily. 0 Active Comment on above: Take 1 tablet by natalia th once daily. Multivitamin With Folic Acid (Thera) 400 mcg Tablet (15 sources) Start: 04-03-2017 End: 01-10-2022 take 1 [...] 5:51pm Start: 04-03-2017 take 1 tablet by natalia th once daily Multivitamin With Folic Acid (Thera) 400 mcg Tablet Active 1 TAB PO Daily 0 April 03, 2017 1:00am nitrofurantoin, macrocrystals 25 mg / nitrofurantoin, monohydrate 75 mg oral capsule (15 sources) Nitrofuran Antibacterial Start: 10-23-2021 End: 10-29-2021 take 2 capsules by mouth once daily at mealtime Nitrofurantoin Monohyd/M-Cryst (Macrobid) 100 mg Capsule Discontinued 100 MG PO Twice daily October 22, 2021 11:00pm October 29, 2021 10:43am must administer with a meal/food - ON DAY 2 OF omega-3/dha/epa/fish oil (OMEGA-3 FISH OIL ORAL) (1 source) Start: 11-06-2022 omega-3/dha/epa/fis h oil (OMEGA-3 FISH OIL ORAL) Take 1 tablet by mouth once daily. 0 11/06/2022 Active Comment on above: Take 1 tablet by natalia th once daily. omeprazole 20 mg delayed release oral capsule (14 sources) Proton Pump Inhibitor Start: 10-29-2021 End: 01-10-2022 take 20 mg by mouth twice daily Omeprazole Discontinued 20 MG PO Twice daily October 28, 2021 11:00pm January 10, 2022 4:51pm ondansetron 4 mg disintegrating oral tablet (14 sources) Serotonin-3 Receptor Antagonist Start: 10-29-2021 End: 09-22-2022 take 4 mg by mouth every six hours Ondansetron Discontinued 4 MG PO Q6H October 28, 2021 11:00pm September 22, 2022 8:10am OTC NUTRITIONAL SUPPLEMENT (1 source) take 1 tablet by mouth once daily OTC NUTRITIONAL SUPPLEMENT Take 1 tablet by mouth once daily. [facility] 0 Active Comment on above: Take 1 tablet by natalia th once daily. [facility] predniSONE 20 mg oral tablet (20 sources) Start: 10-25-2021 End: 01-10-2022 take 60 mg by mouth once daily at mealtime Prednisone Discontinued 60 MG PO Daily 27 10October 29, 2021 10:42am January 10, 2022 4:52pm administer with food or milk, complete course previously started sennosides, shelter 8.6 mg oral tablet (15 sources) Start: 04-03-2017 End: 11-26-2019 take 2 tablets by mouth once daily Sennosides (Senna Lax) 8.6 mg Tablet Discontinued 2 TAB PO DAILY@12 0 April 03, 2017 12:00am November 26, 2019 3:11pm SITagliptin 100 mg oral tablet (4 sources) Dipeptidyl Peptidase 4 Inhibitor Start: 11-23-2022 [...] hours Valacyclovir Discontinued 1000 MG PO Q8H 21 October 29, 2021 10:42am January 10, 2022 4:52pm complete course previously ordered vitamin b12 0.1 mg oral tablet (4 sources) Vitamin B12 Start: 10-30-2018 cyanocobalamin (VITAMIN B-12) 100 mcg tab Take 1,000 mcg by mouth once daily. 0 10/30/2018 Active Start: 10-30-2018 Vitamin B12 Re fills(s) 0 Start Date: 10/30/18 Status: Ordered take 1 tablet by natalia once daily cyanocobalamin (Vitamin B-12) 100 mcg tablet Take 1 tablet (100 mcg) by mouth once daily. 0 Active Comment on above: Take 1,000 mcg by mo [facility] once daily. Vitamin B12 TABS (20 sources) Vitamin B12 TABS TAKE 1 TABLET DAILY DIRECTED. Quantity: 0 Refills: 0 Ordered: 15-Apr-2021 DO Active Problems Active Problems Problem Classification Problem Date Documented Date Episodic/Chronic Administrative/social admission (20 sources) Other reduced mobility; Translations: [Impaired mobility and activities of daily living] 10-28-2021 Episodic Cardiac dysrhythmias (20 sources) Paroxysmal atrial fibrillation; Translations: [Atrial fibrillation] Onset: 2 11-26-2019 Chronic Chronic kidney disease (1 source) Chronic kidney disease; Translations: [Chronic kidney disease, unspecified] Onset: 3 03-29-2023 Chronic Conditions associated with dizziness or vertigo (20 sources) Dizziness; Translations: [Dizziness and giddiness] 10-28-2021 Episodic Conduction disorders (9 sources) Cardiac pacemaker in situ; Translations: [Cardiac pacemaker in situ] Onset: 3 02-26-2023 Chronic Congestive heart failure; nonhypertensive (15 sources) Heart failure with normal ejection fraction; Translations: [Unspecified diastolic (congestive) heart failure] Onset: 3 10-28-2021 Chronic Coronary atherosclerosis and other heart disease (20 sources) Coronary arteriosclerosis; Translations: [Coronary atherosclerosis of unspecified type of vessel, standing rock or graft] Onset: 3 10-28-2021 Chronic Deficiency and other anemia (15 sources) Anemia; Translations: [Anemia, unspecified] 03-19-2017 Episodic Disorders of lipid metabolism (20 sources) Hyperlipidemia; Translations: [Other and unspecified hyperlipidemia] Onset: 3 01-23-2023 Chronic E Codes: Fall (20 sources) Fall; Translations: [Unspecified fall, initial encounter] 03-19-2017 Episodic Essential hypertension (20 sources) Essential hypertension; Translations: [Unspecified essential hypertension] Onset: 3 10-21-2021 Chronic Fracture of neck of femur (hip) (15 sources) Closed intertrochanteric fracture; Translations: [Displaced intertrochanteric [...] Neoplasms of unspecified nature or uncertain behavior (3 sources) Monoclonal gammopathy of uncertain significance; Translations: [Monoclonal gammopathy] 10-29-2012 Chronic Osteoarthritis (20 sources) Osteoarthritis; Translations: [Osteoarthrosis, unspecified whether generalized or localized, site unspecified] Chronic Osteoporosis (4 sources) Age-related osteoporosis without current pathological fracture; Translations: [AGE-REL OSTEOPOR W/O CURR PATH FX] Onset: 3 Chronic Other aftercare (20 sources) Drug therapy finding; Translations: [Long-term (current) use of other medications] Episodic Other aftercare (17 sources) Long-term current use of anticoagulant; Translations: [intermediate (current) use of anticoagulants] Onset: 3 10-28-2021 Episodic Other aftercare (9 sources) intermediate (current) use of anticoagulants; Translations: [Long-term (current) use of anticoagulants] Onset: 3 10-28-2021 Episodic Other aftercare (5 sources) Encounter for therapeutic drug level monitoring; Translations: [ENC THERAPEUTC DRUG LEVL MONITORING] Onset: 3 Episodic Other aftercare (2 sources) Taking high risk medication; Translations: [Other long-term (current) drug therapy] Onset: 3 02-26-2023 Episodic Other aftercare (2 sources) Other termite technician (current) drug therapy; Translations: [Other long-term (current) drug therapy] Onset: 3 Episodic Other circulatory disease (15 sources) H/O: atrial fibrillation; Translations: [Personal history of other diseases of the circulatory system] 10-28-2021 Episodic Other circulatory disease (15 sources) Low blood pressure; Translations: [Hypotension, unspecified] 03-16-2017 Episodic Other circulatory disease (6 sources) Personal history of other diseases of the circulatory system; Translations: [Personal history of other diseases of circulatory system] 10-28-2021 Episodic Other connective tissue disease (15 sources) Foot pain; Translations: [Pain in unspecified foot] 03-23-2017 Episodic Other connective tissue disease (15 sources) Pain in left arm; Translations: [Pain in left arm] 11-28-2019 Episodic Other diseases of veins and lymphatics (14 sources) Venous insufficiency of leg; Translations: [Venous (peripheral) insufficiency, unspecified] Onset: 3 01-23-2023 Episodic Other eye disorders (10 sources) Chemosis of conjunctiva; Translations: [Conjunctival edema, unspecified eye] 01-10-2022 Episodic Other lower respiratory disease (15 sources) Dyspnea on exertion; Translations: [Shortness of breath] Onset: 3 01-23-2023 Episodic Other nervous system disorders (15 sources) Abnormal gait; Translations: [Unspecified abnormalities of gait and mobility] 03-19-2017 Episodic Other nervous system disorders (1 source) Other acute postprocedural pain; Translations: [Postoperative pain] Onset: 4 Episodic Other nervous system disorders (1 source) H/O: Alvarado's palsy; Translations: [Personal history of other diseases of the nervous system and sense organs] Onset: 3 03-29-2023 Episodic Other nutritional; endocrine; and metabolic disorders [...] (BMI) 34.0-34.9, adult] Onset: 3 Chronic Other nutritional; endocrine; and metabolic disorders (1 source) Obese class I; Translations: [Obesity, unspecified] Onset: 4 04-24-2023 Chronic Other skin disorders (4 sources) Skin irritation ; Translations: [Unspecified disorder of skin and subcutaneous tissue] Episodic Kiley-; endo-; and myocarditis; cardiomyopathy (except that caused by tuberculosis or sexually transmitted disease) (20 sources) Cardiomyopathy; Translations: [Other primary cardiomyopathies] Onset: 3 01-23-2023 Chronic Pulmonary heart disease (1 source) Pulmonary hypertension; Translations: [Pulmonary hypertension, unspecified] Onset: 3 03-29-2023 Chronic Residual codes; unclassified (15 sources) Postprocedural state finding; Translations: [Other specified postprocedural states] 03-17-2017 Episodic Residual codes; unclassified (15 sources) Patient encounter status; Translations: [Encounter for prophylactic measures, unspecified] 03-19-2017 Episodic Residual codes; unclassified (19 sources) Other specified health status; Translations: [Statin intolerance] Onset: 3 02-26-2023 Episodic Residual codes; unclassified (1 source) Postoperative state; Translations: [Other specified postprocedural states] 05-21-2023 Episodic Syncope (20 sources) Near syncope; Translations: [Syncope and collapse] Onset: 3 01-23-2023 Episodic Thyroid disorders (3 sources) Hypothyroidism; Translations: [Unspecified acquired hypothyroidism] Onset: 3 01-23-2023 Chronic Unclassified (3 sources) CONTACT W/AND (SUSP) EXPOS COVID-19; Translations: [CONTACT W/AND (SUSP) EXPOS COVID-19] Onset: 2 Unclassified (1 source) Encounter for checking and testing of cardiac pacemaker pulse generator [battery]; Translations: [Encounter for checking and testing of cardiac pacemaker pulse generator [battery]] Onset: 4 Unclassified (1 source) Encounter for preprocedural laboratory examination; Translations: [Encounter for preprocedural laboratory examination] Onset: 3 Urinary tract infections (20 sources) Urinary tract infectious disease; Translations: [Urinary tract infection, site not specified] 03-31-2017 Episodic Viral infection (15 sources) Viral disease; Translations: [Viral infection, unspecified] 10-21-2021 Episodic Viral infection (1 source) COVID-19; Translations: [COVID-19] Onset: 2 Past or Other Problems Problem Classification Problem [...] Onset: 11-19-2022 10-28-2021 Episodic Nonspecific chest pain (15 sources) Chest pain; Translations: [Chest pain, unspecified] Onset: 11-19-2022 11-17-2022 Episodic Other nervous system disorders (20 sources) Alvarado's palsy; 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] Onset: 07-18-2022 10-25-2021 Episodic Other nervous system disorders (12 sources) Alvarado's palsy; 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] Onset: [...] Test Name Value Interpretation Reference Range Facility [facility] 05-21-2023 CNOV Office Visit (PLASST ) -- ERIN CANALES ([id number]) 1935 F Date Time Provider Department 05/21/23 8:40 AM ROSALVA LEMOS During your visit today, we recorded the following information about you: Rosalva Lemos APRN.CNP 05/21/2023 9:27 AM Signed Plastic Surgery Post Op Note CC: post op HPI Date of Surgery: 04/24/2023 Surgery: insertion of left upper eyelid weight (1.6 g [place] weight placed in the left upper eyelid), and direct brow lift of left eyebrow Time Postop: 4 weeks 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 Pain: denies Fever/chills: denies Activity:able to participate in ADLs within recommended restrictions Says she is using ointment on her eyelid 2-3 times a day, this causes her eyes to water a lot Says she can feel the weight on her eyelid and she is still getting used to this feeling, but says her vision itself has not changed Is unsure what exactly to expect post operatively PAST MEDICAL HISTORY Diagnosis Date A-fib (HCC) Cardiac pacemaker 11/22/2022 CKD (chronic kidney disease) Congestive heart failure (HCC) Coronary artery disease Hypertension Hypothyroidism MGUS (monoclonal gammopathy of unknown significance) Pulmonary HTN (HCC) Valvular heart disease PAST SURGICAL HISTORY Procedure Laterality Date ANESTH,PACEMAKER INSERTION 11/22/2022 PAST SURGICAL HISTORY OF 2016 L hip fx repair PAST SURGICAL HISTORY OF 1981 RLE ORIF PCI/STENT PCI x 4 2009, PCI to circumflex 09/2022 REMV CATARACT EXTRACAP,INSERT LENS Bilateral Current Outpatient Medications on File Prior to Visit Medication Sig acetaminophen (TYLENOL) 500 mg tablet Take 2 tablets by mouth every 6 hours for 5 days, THEN 1 to 2 tablets every 6 hours as needed for pain. docusate sodium (COLACE) 100 mg capsule Take 1 capsule by mouth two times a day as needed for constipation. erythromycin (ROMYCIN) 5 mg/gram (0.5 %) ophthalmic ointment Apply 1 application in the left eye three times a day for 7 days. aspirin, enteric coated (ASPIRIN, ENTERIC COATED) 81 mg EC tablet Take 81 mg by mouth two times a week. Sunday and Sunday nitroglycerin sublingual (NITROSTAT) 0.6 mg SL tablet Dissolve 0.6 mg under the tongue every 5 minutes as needed for chest pain. Ascorbic Acid 1,000 mg tablet Take 1 tablet by mouth once daily. calcium carbonate (CALTRATE) 600 mg calcium (1,500 mg) tab Take by mouth two times a day. Apple Cider Vinegar 500 mg tab Take 1 tablet by mouth once daily. cyanocobalamin (VITAMIN B-12) 100 mcg tab Take 1,000 mcg by mouth once daily. denosumab (PROLIA) 60 mg/mL Inject subcutaneously once every 6 months. omega-3/dha/epa/fish oil (OMEGA-3 FISH OIL ORAL) Take 1 tablet by mouth once daily. MULTIVITAMIN ORAL Take 1 tablet by mouth once daily. Vitamin E 100 unit/0.25 mL drop Take 1 tablet by mouth once daily. Flaxseed Oil 1,000 mg cap Take 1 capsule by mouth once daily. OTC NUTRITIONAL SUPPLEMENT Take 1 tablet by mouth once daily. [facility] clopidogrel (PLAVIX) 75 mg tablet Take 75 mg by mouth once daily. isosorbide mononitrate ER (IMDUR) 60 mg 24 hr tablet TAKE 1 TABLET BY MOUTH ONCE DAILY DIRECTED. DOSE INCREASED levothyroxine (SYNTHROID) 50 mcg tablet Take 1 tablet by mouth every afternoon. torsemide (DEMADEX) 5 mg tablet Take 5 mg by mouth. amiodarone (PACERONE) 200 mg tablet Take 100 mg by mouth two times a day. warfarin (COUMADIN) 6 mg tablet Take 2.5 mg by mouth as directed. lisinopril 5 mg tablet Take 10 mg by mouth once daily. No current facility-administered medications on file prior to visit. There were no vitals taken for this visit. PE Alert and oriented in NAD on room air Left eye incisions c/d/I Able to closer her eye on command Excess lubrication/tears to inner portion of eye +EOMs ASSESSMENT/PLAN: Expected post operative course - activity restrictions reviewed - keep area clean and dry - can use artificial tears and ointment PRN -discussed change in sensation due to weight in eye is expected, we will have her follow up in [address] Sol to monitor her progress -If experiencing wound complications or have any questions or concerns during business hours call [phone] or after hours (after 5 pm or on the weekend) call [phone] and ask for the plastic surgery resident / fellow semiconductor packages platemaker for further instructions. If you have increasing swelling or bruising, particularly one side greater than the other. If swelling and redness persists after a few days. If you have increased redness along the incision or spreading around the incisions If you have severe or increased pain not relieved by medication. If you have an oral temperature of 100.4 degrees or higher. If you have any yellow or greenish drainage from the incisions or notice (more content not included)... Normal [facility] Aspartate Amino Transferaseo n 05-15-2023 AST [Catalytic activity/Vol] 18 U/L Normal 13-39 [facility] Comment on above: Performed By: #### P T #### [place] [address] Aspartate aminotransferase [ Enzymatic activity/volume] in Serum or PlasmaOrdered By: Akhil Olivarez on 05-15-2023 AST [Catalytic activity/Vol] 18 U/L 13-39 [facility] Basic Metabolic Panelon Anion gap [Moles/Vol] 13.0 mmol/L Normal 6.0-15.0 [facility] Comment on above: Performed By: #### P T #### [address] Calcium [Mass/Vol] 9.4 mg/dL Normal 8.6-10.3 [facility] Comment on above: Performed By: #### P T #### [address] Chloride [Moles/Vol] 104 mmol/L Normal 98-107 [facility] Comment on above: Performed By: #### P T #### [address] CO2 [Moles/Vol] 25.4 mmol/L Normal 21.0-31.0 [facility] Comment on above: Performed By: #### P T #### [address] Creatinine [Mass/Vol] 1.12 mg/dL Normal 0.60-1.20 [facility] Comment on above: Performed By: #### P T #### [place] [address] [place] GFR/1.73 sq M.predicted MDRD (S/P/Bld) [Vol rate/Area] 47.298 mL/min/{1.73_m2} Normal [facility] Comment on above: Performed By: #### P T #### [address] Glucose [Mass/Vol] 128 mg/dL High 70-100 [facility] Comment on above: Result Comment: [facility] Glucose Reference Range is dependent on time and content of last meal. Glucose of more than 200 mg/dL in a nonstressed, ambulatory subject supports the diagnosis of Diabetes Mellitus. ADA recommended reference range Performed By: #### P T #### [facility] [address] [place] [id number] [place] Potassium [Moles/Vol] 4.4 mmol/L Normal 3.5-5.1 [facility] Comment on above: Performed By: #### P T #### [facility] [address] [place] [address] [place] Sodium [Moles/Vol] 138 mmol/L Normal 136-145 [facility] Comment on above: Performed By: #### P T #### [facility] [address] [place] [id number] [place] Urea nitrogen [Mass/Vol] 43 mg/dL High 7-25 [facility] Comment on above: Performed By: #### P T #### [facility] [address] Calcium [Mass/volume] in Ser um or PlasmaOrdered By: Akhil Olivarez on 05-15-2023 Calcium [Mass/Vol] 9.4 mg/dL 8.6-10.3 [facility] Carbon dioxide, total [Moles /volume] in Serum or PlasmaOrdered By: Akhil Olivarez on 05-15-2023 CO2 [Moles/Vol] 25.4 mmol/L 21.0-31.0 [facility] Chloride [Moles/volume] in S payal or PlasmaOrdered By: Akhil Olivarez on 05-15-2023 Chloride [Moles/Vol] 104 mmol/L 98-107 [facility] Creatinine [Mass/volume] in Serum or PlasmaOrdered By: Akhil Olivarez on 05-15-2023 Creatinine [Mass/Vol] 1.12 mg/dL 0.60-1.20 [facility] Glucose [Mass/volume] in Ser um or PlasmaOrdered By: Akhil Olivarez on 05-15-2023 Glucose [Mass/Vol] 128 mg/dL 70-100 [facility] Comment on above: ADA recommended refe rence rangeRandom Glucose Reference Range is dependent on time and content of last meal. Glucose of more than 200 mg/dL in a nonstressed, ambulatory subject supports the diagnosis of Diabetes Mellitus. No Panel InformationOrdered By: Akhil Olivarez on 05-15-2023 Estimated GFR (CKD-EPI) 47.298 mL/Min [facility] Creatinine Clearance (Chem N/A [facility] Potassium [Moles/volume] in Serum or PlasmaOrdered By: Akhil Olivarez on 05-15-2023 Potassium [Moles/Vol] 4.4 mmol/L 3.5-5.1 [facility] Serum or plasma anion gap de terminationOrdered By: Akhil Olivarez on 05-15-2023 Anion gap [Moles/Vol] 13.0 mmol/L 6.0-15.0 [facility] Sodium [Moles/volume] in Ser um or PlasmaOrdered By: Akhil Olivarez on 05-15-2023 Sodium [Moles/Vol] 138 mmol/L 136-145 [facility] Thyroid Stimulating Hormoneo n 05-15-2023 TSH Qn 3.73 m[IU]/L Normal 0.45-5.33 [facility] Comment on above: Result Comment: PERF ORMED BY: [place] [address] PATHOLOGIST CUT AND COVER LINE WORKER GIULIA VALERIO M.D. Performed By: #### P T #### [address] Thyrotropin [Units/volume] i n Serum or PlasmaOrdered By: Akhil Olivarez on 05-15-2023 TSH Qn 3.73 m[IU]/L 0.45-5.33 [facility] Urea nitrogen [Mass/volume] in Serum or PlasmaOrdered By: Akhil Olivarez on 05-15-2023 Urea nitrogen [Mass/Vol] 43 mg/dL 10-31 [facility] XR chest 2V*on 05-15-2023 XR chest 2V* [facility] [place] [address] XRay Report Signed Patient: Erin Canales MR#: [id number] : 1935 Acct:[id number] Age/Sex: 87 / F ADM Date: 05/15/23 Loc: XD Room: Type: [facility] Attending Dr: Akhil Olivarez MD Copies to: Akhil Olivarez MD Ordering Provider: Akhil Olivarez MD Date of Service: 05/15/23 XR/XR chest 2V*: I48.0, Z79.899 XR chest 2V* 05/15/2023 12:54 PM SIGNS AND SYMPTOMS: Chest pain, A. fib, high risk med use PROTOCOL: Frontal and lateral radiograph of the chest COMPARISON: 12/14/2022 FINDINGS: The trachea is midline. Atherosclerotic changes are present in the thoracic aorta. There is a dual lead pacer device in the left hemithorax. The heart and mediastinal structures are within normal limits. The lung parenchyma is clear. The bony thorax is intact. Degenerative changes are noted in the shoulders and thoracolumbar spine. XR/XR chest 2V* IMPRESSION: No acute cardiopulmonary pathology. Impression dictated by: John Crouch M.D.05/15/2023 4:20 PM Dictation Location: [place] [address] Transcribed By: [facility] 05/15/23 1620 Dictated By: John Crouch II, MD 05/15/23 1619 Signed By: 05/15/23 1620 [facility] CNOVon 04-30-2023 CNOV Office Visit (PLASST ) -- ERIN CANALES ([id number]) 1935 F Date Time Provider Department 04/30/23 10:40 AM ROSALVA LEMOS During your visit today, we recorded the following information about you: Rosalva Lemos APRN.CNP 04/30/2023 10:27 AM Signed Plastic Surgery Post Op Note CC: post op HPI Date of Surgery: 04/24/2023 Surgery: insertion of left upper eyelid weight (1.6 g [place] weight placed in the left upper eyelid), and direct brow lift of left eyebrow Time Postop: 6 days 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 Pain: denies pain, but says that she can feel the weight, thinks she is finally able to fully close her eye now Drainage from incisions: denies, says she has been having a lot of tears'' coming out of her left eye, is not sure if that is a result of the ointment she is putting in. has been applying romycin ointment to eyelid 3 times daily. Last day is tomorrow. Fever/chills: denies Activity:able to participate in ADLs within recommended restrictions PAST MEDICAL HISTORY Diagnosis Date A-fib (HCC) Cardiac pacemaker 11/22/2022 CKD (chronic kidney disease) Congestive heart failure (HCC) Coronary artery disease Hypertension Hypothyroidism MGUS (monoclonal gammopathy of unknown significance) Pulmonary HTN (HCC) Valvular heart disease PAST SURGICAL HISTORY Procedure Laterality Date ANESTH,PACEMAKER INSERTION 11/22/2022 PAST SURGICAL HISTORY OF 2016 L hip fx repair PAST SURGICAL HISTORY OF 1981 RLE ORIF PCI/STENT PCI x 4 2009, PCI to circumflex 09/2022 REMV CATARACT EXTRACAP,INSERT LENS Bilateral Current Outpatient Medications on File Prior to Visit Medication Sig acetaminophen (TYLENOL) 500 mg tablet Take 2 tablets by mouth every 6 hours for 5 days, THEN 1 to 2 tablets every 6 hours as needed for pain. docusate sodium (COLACE) 100 mg capsule Take 1 capsule by mouth two times a day as needed for constipation. erythromycin (ROMYCIN) 5 mg/gram (0.5 %) ophthalmic ointment Apply 1 application in the left eye three times a day for 7 days. aspirin, enteric coated (ASPIRIN, ENTERIC COATED) 81 mg EC tablet Take 81 mg by mouth two times a week. Sunday and Sunday nitroglycerin sublingual (NITROSTAT) 0.6 mg SL tablet Dissolve 0.6 mg under the tongue every 5 minutes as needed for chest pain. Ascorbic Acid 1,000 mg tablet Take 1 tablet by mouth once daily. calcium carbonate (CALTRATE) 600 mg calcium (1,500 mg) tab Take by mouth two times a day. Apple Cider Vinegar 500 mg tab Take 1 tablet by mouth once daily. cyanocobalamin (VITAMIN B-12) 100 mcg tab Take 1,000 mcg by mouth once daily. denosumab (PROLIA) 60 mg/mL Inject subcutaneously once every 6 months. omega-3/dha/epa/fish oil (OMEGA-3 FISH OIL ORAL) Take 1 tablet by mouth once daily. MULTIVITAMIN ORAL Take 1 tablet by mouth once daily. Vitamin E 100 unit/0.25 mL drop Take 1 tablet by mouth once daily. Flaxseed Oil 1,000 mg cap Take 1 capsule by mouth once daily. OTC NUTRITIONAL SUPPLEMENT Take 1 tablet by mouth once daily. [facility] clopidogrel (PLAVIX) 75 mg tablet Take 75 mg by mouth once daily. isosorbide mononitrate ER (IMDUR) 60 mg 24 hr tablet TAKE 1 TABLET BY MOUTH ONCE DAILY DIRECTED. DOSE INCREASED levothyroxine (SYNTHROID) 50 mcg tablet Take 1 tablet by mouth every afternoon. torsemide (DEMADEX) 5 mg tablet Take 5 mg by mouth. amiodarone (PACERONE) 200 mg tablet Take 100 mg by mouth two times a day. warfarin (COUMADIN) 6 mg tablet Take 2.5 mg by mouth as directed. lisinopril 5 mg tablet Take 10 mg by mouth once daily. No current facility-administered medications on file prior to visit. There were no vitals taken for this visit. PE Alert and oriented in NAD on room air Left eye incisions c/d/I Able to closer her eye on command Excess tears noted Prolene sutures in crease- running stitch removed Ecchymosis and edema as expected ASSESSMENT/PLAN: Expected post operative course -prolene sutures removed -activity restrictions reviewed -continue ointment -keep area clean and dry -okay for OTC pain medication as tolerated -If experiencing wound complications or have any questions or concerns during business hours call [phone] or after hours (after 5 pm or on the weekend) call [phone] and ask for the plastic surgery resident / fellow semiconductor packages platemaker for further instructions. If you have increasing swelling or bruising, particularly one side greater than the other. If swelling and redness persists after a few days. If you have increased redness along the incision or spreading around the incisions If you have severe or increased pain not relieved by medication. If you have an oral temperature of 100.4 degrees or higher. If you have any yellow or greenish drainage (more content not included)... 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 Post Anesthesia Patient Status Patient Evaluation: PACU. PACU/ICU Patient Condition: stable. Anticipated Disposition: phase 2 then home. Neurological Status: aware and responsive. Pulmonary Status: breathing comfortably on room air Airway Control: returned to baseline unsupported. Cardiovascular Status: stable. Pain Management: clinically adequate - multimodal analgesia pain management approach Postoperative Hydration: acceptable. Intraoperative Events: no significant anesthesia events Post Operative Nausea/Vomiting Status: no significant post operative nausea or vomiting Recommendation: continue current plan of care. Anesthesia Observations No Documentation SIGNATURE: Gwen Black MD PATIENT NAME: Erin Canales DATE: April 24, 2023 TIME: 1:28 PM CSN: [id number] [facility] ANES PRE-OPon 04-24-2023 ANES PRE-OP HNO ID: [id number] Author: GWEN BLACK MD Service: Anesthesiology Author Type: Anesthesiologist Type: Anesthesia Preprocedure Evaluation Filed: 04/24/2023 07:10 Note Text: ANESTHESIOLOGY DAY OF SURGERY NOTE : 1935 Procedure Information Date/Time: 04/24/23729 Procedure: CORRECT LAGOPTHALMOS W/ IMPLANT UPPER LID (Left: Eye lid) Location: [facility] OR04 / [facility] OR Surgeons: Shweta Sol MD Estimated body mass index is 32.59 kg/m? as calculated from the following: Height as of 03/29/23: 157.5 cm (5' 2 ). Weight as of 03/29/23: 80.8 kg (178 lb 3.2 oz). Most recent hematocrit and potassium results: Hematocrit 43.6 03/13/2016 Relevant Problems CARDIO (+) A-fib (HCC) (+) Cardiac pacemaker (+) Congestive heart failure (HCC) (+) Coronary artery disease (+) Hypertension (+) Pulmonary HTN (HCC) ENDO (+) Hypothyroidism -RENAL (+) CKD (chronic kidney disease) NEURO-PSYCH (+) History of Alvarado's palsy I - PHYSICAL EVALUATION AIRWAY Patient intubated: No. Tracheostomy tube not present Mallampati: II. TM distance: <3 FB. Neck ROM: full ROM without neurological symptoms. Mouth opening: adequate. Short neck: no. Thick neck: no Microretrognathia/Micronag thia/Recessed Chin: Yes DENTAL Dental findings: missing tooth/teeth, poor dentition, broken tooth and chipped. Additional exam findings: yes. CARDIOVASCULAR Rhythm: regular Rate: normal PULMONARY Breath sounds clear to auscultation. II - ANESTHESIA PLAN ASA Score: 3 Anesthetic Plan: MAC The patient is not a current smoker. NPO Status: adequate Beta Germán Monitoring Plan Monitoring plan: standard ASA. Post Procedure Analgesic Plan Postoperative analgesic plan: multimodal analgesia. Informed Consent Anesthetic risks, benefits, alternatives, personnel and consent discussed: yes. Patient / Responsible [employer] Party agrees to proceed: yes Patient / Surrogate agrees to blood products: Yes Significant changes in the patient condition since the History and Physical, not otherwise documented in primary service progress note: no. Potential Anesthesia issues that may suggest increased risk of complications or contraindication to planned procedure: none. Vitals Value Taken Time BP 134/53 04/24/23 0648 Pulse 61 04/24/2348 Resp 18 04/24/2348 Temp 37.1 ?C (98.8 ?F) 04/24/23647 SpO2 98 % 04/24/23647 No current facility-administered medications on file as of 04/24/2023. Outpatient Medications as of 04/24/2023 Medication Sig - calcium carbonate (CALTRATE) 600 mg calcium (1,500 mg) tab Take by mouth two times a day. - Apple Cider Vinegar 500 mg tab Take 1 tablet by mouth once daily. - cyanocobalamin (VITAMIN B-12) 100 mcg tab Take 1,000 mcg by mouth once daily. - omega-3/dha/epa/fish oil (OMEGA-3 FISH OIL ORAL) Take 1 tablet by mouth once daily. - Vitamin E 100 unit/0.25 mL drop Take 1 tablet by mouth once daily. - torsemide (DEMADEX) 5 mg tablet Take 5 mg by mouth. - amiodarone (PACERONE) 200 mg tablet Take 100 mg by mouth two times a day. - warfarin (COUMADIN) 6 mg tablet Take 2.5 mg by mouth as directed. - lisinopril 5 mg tablet Take 10 mg by mouth once daily. I have interviewed and examined the patient. I have reviewed the medical record and/or the pre-anesthesia evaluation, pertinent labs, and test results. This contains updated information obtained within 48 hours of Surgery/Procedure. SIGNATURE: Gwen Black MD PATIENT NAME: Erin Canales DATE: April 24, 2023 TIME: 7:09 AM CSN: [id number] [facility] BRIEF OP NOTon 04-24-2023 BRIEF OP NOT HNO ID: [id number] Author: PAMELA SPICER DO Service: Plastic Surgery Author Type: Resident Type: Brief Op Note Filed: 04/24/2023 09:20 Note Text: PLASTIC SURGERY - BRIEF OP NOTE Patient Name: Erin Canales Log ID: [id number] Surgery Date: 04/24/2023 Surgeon(s) and Galley Cook(s): Surgeon(s) and Role: * Shweta Sol MD - Primary * Pamela Spicer DO - Resident - Assisting * Jamie Cordoba MD - Resident - Assisting Procedure(s) (LRB): Procedure(s): Left upper eyelid weight placement Left direct browlift Incision/Procedure Start Time: 8:27 AM Incision Close/Procedure End Time: 9:20 AM Anesthesia: MAC Findings: See op note Estimated Blood Loss: < 5 mls Urine Output: NA Drains: none Specimens: * No specimens in log * Complications: None Preop Diagnosis Code(s): Alvarado's palsy [G51.0] Drooping of mouth [R29.810] Postop Diagnosis: Same Post-op Plan: Dc home Resume coumadin 48 hours after surgery Abimbola Spicer DO Plastic AND Reconstructive Surgery Hand Surgery Resident - PGY-5 Pager: [phone] *After 6PM AND on weekends, please page [phone] (Plastic Surgery Inking Machine Tender)* Normal [facility] HISTORY PHYSICALon HISTORY PHYSICAL HNO ID: [id number] Author: SHWETA SOL MD Service: Plastic Surgery Author Type: Resident Type: H&P Filed: 04/26/2023 09:05 Note Text: -- Attestation signed by Shweta Sol MD at 04/26/2023 9:05 AM Ready for discharge -- UPDATED HISTORY AND PHYSICAL EXAMINATION SERVICE DATE: 04/24/2023 SERVICE TIME: 7:22 AM PHYSICAL EXAM MUST BE COMPLETED ON ADMISSION The History and Physical (completed in the past 30 days) has been reviewed and the patient has been examined. The contents accurately reflect the patient's condition with the following additions or revisions since the HANDP was completed. Examination indicates no changes. CARDIAC: RRR PULM: CTAB This HANDP can be found in the Electronic Medical Record dated 04/24/2023. SIGNATURE: Jamie Cordoba MD PATIENT NAME: Erin Canales DATE: April 24, 2023 TIME: 7:22 AM [facility] NURSING PROGon 04-24-2023 NURSING PROG HNO ID: [id number] Author: ALAN JAMES RN Service: Nursing Author Type: Registered Nurse Type: Nursing Progress Note Filed: 04/24/2023 10:26 Note Text: PATIENT EDUCATION TOPIC: PROCEDURE / SURGERY: Post-op Teaching: Symptom Management READINESS TO LEARN COGNITIVE ABILITY: Alert and oriented MOTIVATION TO LEARN: Interested FAMILY SUPPORT: High - Very involved in pt care INSTRUCTION PROVIDED TO: Patient and family member PATIENT LEARNS BEST BY: Individual Instruction Written Instruction - Hand-outs Verbal Instruction FACTORS AFFECTING LEARNING: None PHYSICAL LIMITATIONS AFFECTING LEARNING: None LEARNING RESPONSE PATIENT/FAMILY RESPONSE: Information received as demonstrated by interest and questions METHOD OF INSTRUCTION: Teachback, Individual instruction Written instruction - handouts Verbal instruction including teachback FOLLOW-UP PLAN: Patient instructed to call with any further issues, Will receive a follow up phone call, and contact information given. INSTRUCTIONAL AIDS USED: NA SUPPLEMENTAL MATERIAL PROVIDED TO PATIENT: Post op discharge instructions. [facility] NURSING PROG HNO ID: [id number] Author: JAE ESPINOZA RN Service: Nursing Author Type: Registered Nurse Type: Nursing Progress Note Filed: 04/24/2023 06:22 Note Text: PATIENT EDUCATION TOPIC: PROCEDURE / SURGERY: Pre-op Teaching: Surgery PATIENT NAME: Erin Canales PATIENT LOCATION: [facility] OR POOL/[facility] OR POOL READINESS TO LEARN COGNITIVE ABILITY: Alert and oriented MOTIVATION TO LEARN: Eager FAMILY SUPPORT: Unable to assess - Family not present INSTRUCTION PROVIDED TO: Patient PATIENT LEARNS BEST BY: Individual Instruction Written Instruction - Hand-outs Verbal Instruction FACTORS AFFECTING LEARNING: None PHYSICAL LIMITATIONS AFFECTING LEARNING: None LEARNING RESPONSE DIAGNOSIS: ADULT: See HANDP PATIENT/FAMILY RESPONSE: Information received as demonstrated by interest and questions METHOD OF INSTRUCTION: Individual instruction Written instruction - handouts Verbal instruction FOLLOW-UP PLAN: Patient instructed to call with any further issues INSTRUCTIONAL AIDS USED: NA SUPPLEMENTAL MATERIAL PROVIDED TO PATIENT: None REFERRAL (RECOMMENDATION): None Electronically Signed By: Jae Espinoza [facility] OPERATIVE NOon 04-24-2023 OPERATIVE NO HNO ID: [id number] Author: SHWETA SOL MD Service: Plastic Surgery Author Type: Physician Type: Operative Report Filed: 04/24/2023 09:53 Note Text: OPERATIVE REPORT NAME: Erin Canales AGE: [id number] year old SURGERY/ PROCEDURE DATE: 04/24/2023 INCISION/ PROCEDURE START TIME: 8:27 AM INCISION CLOSE/ PROCEDURE ENDTIME: 9:20 AM SURGEON(S)/MATERIALS ASSOCIATE(S): Surgeon(s) and Role: * Shweta Sol MD - Primary * Pamela Spicer DO - Resident - Assisting * Jamie Cordoba MD - Resident - Assisting OPERATION: 1. Insertion of upper eyelid weight; left 2. 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 The patient signed consent attesting to that understanding. OPERATIVE PROCEDURE: Patient was brought in the room, placed on the table in the supine position, underwent general anesthesia, was prepped and draped in usual sterile fashion using Betadine solution. At this point, following lines marked preoperatively an incision was made in the upper eyelid crease approximately 10 mm from the upper eyelid lashes and was taken down to the levator aponeurosis. At this point the previously measured eyelid weight (#6, 1.6 g) was sutured into place with three 6-0 Prolene sutures. Hemostasis was obtained with bipolar cautery. When hemostasis was assured, the upper eyelid was closed in a single layer with 6-0 running Prolene subcuticular. With this procedure performed the lower eyelid was noted to be in apposition to the globe and below the lower limbus such that canthopexy would exacerbate lid shortening and the previous canthoplasty (direct) appeared to be adequate and the best option. With that attention was turned toward the left brow. Following lines marked in a sitting position preoperatively an area measuring 1 cm x 4 cm was resected down to the subcutaneous tissue. Hemostasis was again obtained with bipolar cautery. The wound was then closed with a 5-0 Monocryl as a deep dermal and a second layer with a running subcuticular. The eye was irrigated with copious saline after removal of the corneal protector and attention was turned dressing. The wounds were then washed, dried, and bacitracin ophthalmic was applied. The patient tolerated the procedure well and was transferred to the recovery room in stable condition. Implant Details: Implant Name Type Inv. Item Serial No. General Cargo Clerk Lot No. LRB No. Used Action Model No. [employer] Implant [id number] Left 1 Implanted [id number] Operative Findings: The procedure was performed as planned. 1.6 g [place] weight placed in the left upper eyelid Estimated Blood Loss: 3 mL Specimens: None Drains: None Complications: None Participation in Procedure: I/primary surgeon/proceduralist performed the procedure with assistance. SIGNATURE: Shweta Sol MD PATIENT NAME: Erin Esequiel Canales DATE: April 24, 2023 TIME: 9:46 AM PAGER/CONTACT #: [phone] [facility] 04-05-2023 [facility] [place] Telephone (PANEST) -- ERIN CANALES ([id number]) 1935 F Date Time Provider Department 04/05/23 LETICIA LIM During your visit today, we recorded the following information about you: Leticia Lim PA-C 04/05/2023 12:07 PM Signed Good afternoon, I saw this patient for PACC for upcoming surgery scheduled 04/16/23 at [facility]. She has a significant cardiac PMH including pacemaker, CAD, A.fib, pulmonary HTN, CHF, and valvular heart disease. Due to pt's PMH and surgery being scheduled at [facility], I reviewed patient's chart with staff anesthesiologist, Dr. Dumont. Per Dr. Dumont, this patient is not an ASC candidate and surgery needs to be moved to a hospital setting. Please let me know if you have any questions or concerns. Thank you, Leticia Lim PA-C PACC Beatris Han LPN 04/05/2023 1:53 PM Signed Thanks for letting us know, Leticia. I am forwarding your message to Dr. Sol's team at [facility] to reschedule under hospital setting. Please call patient on rescheduling surgery in hospital. Beatris Castañeda LPN Allergies As of Date: 04/05/2023 Noted Allergy Reaction [id number] REDUCTASE INHIBIT*08/25/2022 14 - Other: See Comments Comments: Cannot walk when she takes it MOTRIN (IBUPROFEN) 10/29/2012 4 - Hives Date Reviewed: 03/29/2023 Reviewed by: Beatris Castañeda LPN - Fully Assessed Reason for Visit: PreOp Call [[id number]] Cmt: Move Surgery to Hospital Prescriptions as [...] 1 tablet by mouth once daily. [facility] - clopidogrel (PLAVIX) 75 mg tablet Take [...] Status:Closed by BRENT MEHTA on 04/06/23 Normal [facility] Mamm Screen w/CAD if perf and 3D Bilon 04-04-2023 ID Mamm Screen w/CAD if perf and 3D Jean Claude Exam Date/Time: 03/30/2023 16:08 EST Reason for Exam: Z12.31 Report IMPRESSION: BIRADS 2 BENIGN FINDINGS, NORMAL INTERVAL FOLLOW-UP Follow-up: 12 MONTH RECALL Density: Scattered tissue. Vascular calcifications: Present. EXAM: ID Mamm Screen w/CAD if perf and 3D [...] VERY IMPORTANT TO YOUR HEALTH. THE CURRENT [employer] [...] 2-Benign finding Recommendation: Normal interval follow-up Normal [facility] Consent for Treatmenton 03-10 Consent for Treatment [id number] Normal [facility] CNCOon 03-29-2023 CNCO Letter Text Normal [facility] CNOVon 03-29-2023 CNOV Office Visit (PLASST ) -- ERIN CANALES ([id number]) 1935 F Date Time Provider Department 03/29/23 1:45 PM SHWETA SOL During your visit today, we recorded the following information about you: Shweta Sol MD 03/29/2023 2:35 PM Signed CC: 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 This developed [...] mouth once daily. Allergies: ALLERGIES Allergen Reactions Hbaozlb-Qlz-Yay Red* Other: See Comments Cannot walk when [...] Past Histories independently gathered by the clinical it support specialist and the remaining scribed note accurately describes [...] 2023 2:34 PM Referring Provider: SHWETA SOL [[id number]] Allergies As of Date: 03/29/2023 Noted Allergy Reaction [id number] REDUCTASE INHIBIT*08/25/2022 14 - Other: See Comments Comments: Cannot walk when she takes it MOTRIN (IBUPROFEN) 10/29/2012 4 - Hives Date Reviewed: 03/29/2023 Reviewed by: Beatris Castañeda LPN - Fully Assessed Primary Visit Diagnosi (more content not included)... Normal [facility] 03-29-2023 [facility] Telephone (PANEST) -- ERIN CANALES ([id number]) 1935 F Date Time Provider Department 03/29/23 CHERRIE GAMINO During your visit today, we recorded the following information about you: Cherrie Gamino LPN 03/29/2023 3:03 PM Signed Cardiac clearance and medication instructions requested from Dr. Olivarez. JOVANNI Macedo Peggy Ann, RN 04/06/2023 9:07 AM Signed Addendum-04/03 AND 04/06. Called [facility] to confirm card optimization letter was received. [...] instructions back to me. Scanned letter into [place]. Cherrie Gamino LPN Allergies As of Date: 03/29/2023 Noted Allergy Reaction [id number] REDUCTASE INHIBIT*08/25/2022 14 - Other: See Comments Comments: Cannot walk when she takes it MOTRIN (IBUPROFEN) 10/29/2012 4 - Hives Date Reviewed: 03/29/2023 Reviewed by: Beatris Castañeda LPN - Fully Assessed Reason for Visit: Cardiac Clearance [7405] Prescriptions as of 04/10/2023 - aspirin, enteric [...] Alvarado's palsy [Z86.69] 03/29/2023 Encounter Status:Closed by ANTONALMITA CHERRIE J on 03/29/23 Normal [facility] HISTORY PHYSICALon HISTORY PHYSICAL HNO ID: [id number] Author: Leticia Lim PA-C Service: ? Author Type: Physician Galley Cook Type: HANDP Filed: 04/10/2023 12:22 PM Note [...] 4 in 2009 (stents were patent on [facility] 09/2022), s/p PCI to circumflex 09/2022, on ASA 81 mg 2x per week, Plavix, and isosorbide. Follows with outside cards, Dr. Olivarez, [facility] 02/26/23 Mickey James, JUAN CARLOS. Letter faxed to Dr. Olivarez on 03/29/2023 for cardiac optimization and Plavix clearance. Congestive heart failure (HCC) Assessment: LVEF 55% on [facility] 09/2022, on torsemide. Appears euvolemic on exam [...] large neck Non-male patient STOP-Bang Score: 3 [id number] Score: Age: >=75 Sex: female CHF history: Yes Hypertension history: Yes Stroke/TIA/thromboembolism history: No Vascular disease history: Yes Diabetes history: No [id number]-EFTs Score: 6 ANESTHESIA FINDINGS: Intubation History: No [...] sclerosis, [place] (more content not included)... Normal [facility] 03-21-2023 CNPN Telephone (PLASST) -- ERIN CANALES ([id number]) 1935 F Date Time Provider Department 03/21/23 SHWETA SOL During your visit today, we recorded the following information about you: Jerilyn Rosa 03/21/2023 11:14 AM Signed PAC calling in asking for patients procedure if you are using local if so she does not need a PAC appt please advise. Ph- [phone] Beatris Castañeda LPN 03/21/2023 12:55 PM Signed [...] As of Date: 03/21/2023 Noted Allergy Reaction [id number] REDUCTASE INHIBIT*08/25/2022 14 - Other: See Comments Comments: Cannot walk when she takes it MOTRIN (IBUPROFEN) 10/29/2012 16 - Unknown Date Reviewed: 12/13/2022 Reviewed by: Amanda Chamberlain PCNA - Fully Assessed Reason for Visit: General Questions [7325] Prescriptions as of 03/29/2023 - aspirin, enteric [...] 1 tablet by mouth once daily. [facility] - clopidogrel (PLAVIX) 75 mg tablet Take [...] by BEATRIS CASTAÑEDA LPN on 03/21/23 Normal [facility] Aspartate Amino Transferaseo n 12-14-2022 AST [Catalytic activity/Vol] 19 U/L Normal [facility] Comment on above: Order Comment: PT IS FASTING Performed By: #### T SH3, AST, BMP #### [facility] [address] Aspartate aminotransferase [ Enzymatic activity/volume] in Serum or PlasmaOrdered By: Akhil Olivarez on 12-14-2022 AST [Catalytic activity/Vol] 19 U/L [facility] Basic Metabolic Panelon Anion gap [Moles/Vol] 10.6 mmol/L Normal 6.0-15.0 [facility] Comment on above: Order Comment: PT IS FASTING Performed By: #### T SH3, AST, BMP #### [facility] [address] Calcium [Mass/Vol] 9.6 mg/dL Normal 8.6-10.3 [facility] Comment on above: Order Comment: PT IS FASTING Performed By: #### T SH3, AST, BMP #### [facility] [address] [place] [id number] [place] Chloride [Moles/Vol] 104 mmol/L Normal 98-107 [facility] Comment on above: Order Comment: PT IS FASTING Performed By: #### T SH3, AST, BMP #### [facility] [address] [place] [id number] [place] CO2 [Moles/Vol] 30.6 mmol/L Normal 21.0-31.0 [facility] Comment on above: Order Comment: PT IS FASTING Performed By: #### T SH3, AST, BMP #### [facility] [address] [place] [id number] [facility] [[email or web address]] Creatinine [Mass/Vol] 1.23 mg/dL High 0.60-1.20 [facility] Comment on above: Order Comment: PT IS FASTING Performed By: #### T SH3, AST, BMP #### [facility] [address] [place] [address] [place] GFR/1.73 sq M.predicted MDRD (S/P/Bld) [Vol rate/Area] 42.268 mL/min/{1.73_m2} Normal [facility] Comment on above: Order Comment: PT IS FASTING Performed By: #### T SH3, AST, BMP #### [facility] [address] Glucose [Mass/Vol] 86 mg/dL Normal 70-100 [facility] Comment on above: Order Comment: PT IS FASTING Result Comment: [facility] Glucose Reference Range is dependent on time and content of last meal. Glucose of more than 200 mg/dL in a nonstressed, ambulatory subject supports the diagnosis of Diabetes Mellitus. ADA recommended reference range Performed By: #### T SH3, AST, BMP #### [address] Potassium [Moles/Vol] 4.2 mmol/L Normal 3.5-5.1 [facility] Comment on above: Order Comment: PT IS FASTING Performed By: #### T SH3, AST, BMP #### [facility] [address] Sodium [Moles/Vol] 141 mmol/L Normal 136-145 [facility] Comment on above: Order Comment: PT IS FASTING Performed By: #### T SH3, AST, BMP #### [facility] [address] [place] [address] [place] Urea nitrogen [Mass/Vol] 27 mg/dL High 7-25 [facility] Comment on above: Order Comment: PT IS FASTING Performed By: #### T SH3, AST, BMP #### [facility] [address] [place] [address] [place] Calcium [Mass/volume] in Ser um or PlasmaOrdered By: Akhil Olivarez on 12-14-2022 Calcium [Mass/Vol] 9.6 mg/dL 8.6-10.3 [facility] Carbon dioxide, total [Moles /volume] in Serum or PlasmaOrdered By: Akhil Olivarez on 12-14-2022 CO2 [Moles/Vol] 30.6 mmol/L 21.0-31.0 [facility] Chloride [Moles/volume] in S payal or PlasmaOrdered By: Akhil Olivarez on 12-14-2022 Chloride [Moles/Vol] 104 mmol/L 98-107 [facility] Creatinine [Mass/volume] in Serum or PlasmaOrdered By: Akhil Olivarez on 12-14-2022 Creatinine [Mass/Vol] 1.23 mg/dL 0.60-1.20 [facility] Glucose [Mass/volume] in Ser um or PlasmaOrdered By: Akhil Olivarez on 12-14-2022 Glucose [Mass/Vol] 86 mg/dL 70-100 [facility] Comment on above: ADA recommended refe rence rangeRandom Glucose Reference Range is dependent on time and content of last meal. Glucose of more than 200 mg/dL in a nonstressed, ambulatory subject supports the diagnosis of Diabetes Mellitus. No Panel InformationOrdered By: Akhil Olivarez on 12-14-2022 Estimated GFR (CKD-EPI) 42.268 mL/Min [facility] Creatinine Clearance (Chem N/A [facility] No Panel Informationon 12-14 6.72\S\6.72 above high threshold 0.45-5.33 [facility] [employer] DO Work Phone: Comment on above: PERFORMED BY:SCCI [facility] [place], [place] [id number] MEDICAL DIRECTORGIULIA VALERIO M.D. 19\S\19 Normal 13-39 [facility] [employer]ural Daily 250 DO Work Phone: [phone]\S\[phone] Normal [facility]de [facility] DO Work Phone: 10.6\S\10.6 Normal 6.0-15.0 [facility] [employer] [facility] ayde 250 DO Work Phone: 27\S\27 above high threshold 7-25 [facility] [employer] SolutionsGamaliel ayde 250 DO Work Phone: 86\S\86 Normal 70-100 [facility] Timothy messer 250 DO Work Phone: Comment on above: Random Glucose Refer ence Range is dependent on time and content of last meal. Glucose of more than 200 mg/dL in a nonstressed, ambulatory subject supports the diagnosis of Diabetes Mellitus. ADA recommended reference range 30.6\S\30.6 Normal 21.0-31.0 [facility] Timothy messer 250 DO Work Phone: 104\S\104 Normal 98-107 [facility] Timothy messer 250 DO Work Phone: 4.2\S\4.2 Normal 3.5-5.1 [facility] Timothy messer 250 DO Work Phone: 141\S\141 Normal 136-145 [facility] Timothy messer 250 DO Work Phone: 1.23\S\1.23 above high threshold 0.60-1.20 [facility] Timothy messer 250 DO Work Phone: 9.6\S\9.6 Normal 8.6-10.3 [facility] Timothy messer 250 DO Work Phone: Potassium [Moles/volume] in Serum or PlasmaOrdered By: Akhil Olivarez on 12-14-2022 Potassium [Moles/Vol] 4.2 mmol/L 3.5-5.1 [facility] Radiologyon 12-14-2022 XR Chest 2 Views Normal [facility] Timothy ayde 250 DO Work Phone: Serum or plasma anion gap de terminationOrdered By: Akhil Olivarez on 12-14-2022 Anion gap [Moles/Vol] 10.6 mmol/L 6.0-15.0 [facility] Sodium [Moles/volume] in Ser um or PlasmaOrdered By: Akhil Olivarez on 09-07-2023 Sodium [Moles/Vol] 141 mmol/L 136-145 [facility] Thyroid Stimulating Hormoneo n 12-14-2022 TSH Qn 6.72 m[IU]/L High 0.45-5.33 [facility] Comment on above: Order Comment: PT IS FASTING Result Comment: PERF ORMED BY: [place] [address] PATHOLOGIST CUT AND COVER LINE WORKER GIULIA VALERIO M.D. Performed By: #### T SH3, AST, BMP #### [address] Thyrotropin [Units/volume] i n Serum or PlasmaOrdered By: Akhil Olivarez on 12-14-2022 TSH Qn 6.72 m[IU]/L 0.45-5.33 [facility] Urea nitrogen [Mass/volume] in Serum or PlasmaOrdered By: Akhil Olivarez on 12-14-2022 Urea nitrogen [Mass/Vol] 27 mg/dL 7- [facility] XR chest 2V*on 12-14-2022 XR chest 2V* [facility] [address] [place] [address] XRay Report Signed Patient: Erin Canales MR#: [id number] : 1935 Acct:[id number] Age/Sex: 87 / F ADM Date: 12/14/22 Loc: XD Room: Type: [facility] Attending Dr: Akhil Olivarez MD Copies to: [...] Estrada Jr., D.ORadha12/14/2022 11:55 AM Dictation Location: [facility] Transcribed By: [facility] 12/14/22 1155 Dictated By: Aristides Estrada Jr, DO 12/14/22 1154 Signed By: 12/14/22 1155 [facility] CNOVon 12-13-2022 CNOV Office Visit (PLASMN ) -- ALLYERIN J ([id number]) 1935 F Date Time Provider Department 12/13/22 10:00 AM SHWETA SOL During your visit today, we recorded the following information about you: Temperature Pulse Blood pressure 97.1 degrees 60/minute 165/65 Jae Adkins RN 12/21/2022 4:37 PM Signed CC: 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 This developed [...] Allergies: ALLERGIES Allergen Reactions Motrin [Ibuprofen] Unknown Lthuvmx-Hsl-Whl Red* Other: See Comments Cannot walk when [...] the following reflects his service. Scribed by Jae Adkins RN I agree with the Chief Complaint, ROS, and Past Histories independently gathered by the clinical it support specialist and the remaining scribed note accurately describes [...] Reaction MOTRIN (IBUPROFEN) 10/29/2012 16 - Unknown [id number] REDUCTASE INHIBIT*08/25/2022 14 - Other: See Comments Comments: Cannot walk when she takes it Date Reviewed: 12/13/2022 Reviewed by: Amanda Chamberlain, BEAU - Fully Assessed Reason for Visit: Follow Up [171] Primary Visit Di (more content not included)... Normal [facility] Basophils Auto (Bld) [#/Vol] Ordered By: Danilo Drummond on 11-24-2022 Basophils (Bld) [#/Vol] 0.1 10*3/uL 0.0-0.2 [facility] Basophils/100 WBC Auto (Bld) Ordered By: Danilo Drummond on 11-24-2022 Basophils/100 WBC (Bld) 1.1 % . [facility] Complete Blood Count Auto Di ffon 11-24-2022 Basophils (Bld) [#/Vol] 0.1 10*3/uL Normal 0.0-0.2 [facility] Comment on above: Result Comment: PERF ORMED BY: [place] [address] PATHOLOGIST CUT AND COVER LINE WORKER GIULIA VALERIO M.D. Performed By: #### T SH3, AST, BMP #### [address] Basophils/100 WBC (Bld) 1.1 % Normal . [facility] Comment on above: Performed By: #### T SH3, AST, BMP #### [facility] [address] [place] [address] [place] Eosinophils (Bld) [#/Vol] 0.1 10*3/uL Normal 0.0-0.45 [facility] Comment on above: Performed By: #### T SH3, AST, BMP #### [facility] [address] [place] [address] Eosinophils/100 WBC (Bld) 1.7 % Normal . [facility] Comment on above: Performed By: #### T SH3, AST, BMP #### [facility] [address] [place] [address] Erythrocyte distribution width (RBC) [Ratio] 14.5 % Normal 11.9-15.3 [facility] Comment on above: Performed By: #### T SH3, AST, BMP #### [address] Hematocrit (Bld) [Volume fraction] 34.5 % Normal 34.0-46.4 [facility] Comment on above: Performed By: #### T SH3, AST, BMP #### [address] Hemoglobin (Bld) [Mass/Vol] 11.4 g/dL Low 11.8-15.4 [facility] Comment on above: Performed By: #### T SH3, AST, BMP #### [place] [address] [place] Lymphocytes (Bld) [#/Vol] 1.2 10*3/uL Normal 1.00-4.8 [facility] Comment on above: Performed By: #### T SH3, AST, BMP #### [facility] [address] [place] [address] [place] Lymphocytes/100 WBC (Bld) 20.3 % Normal . [facility] Comment on above: Performed By: #### T SH3, AST, BMP #### [facility] [address] [place] [address] MCH (RBC) [Entitic mass] 31.9 pg Normal 24.7-34.3 [facility] Comment on above: Performed By: #### T SH3, AST, BMP #### [facility] [address] MCV (RBC) [Entitic vol] 96.2 fL Normal 80-100 [facility] Comment on above: Performed By: #### T SH3, AST, BMP #### [facility] [address] Mean Corpuscular HGB Conc 33.1 g/dL Normal 32.0-35.0 [facility] Comment on above: Performed By: #### T SH3, AST, BMP #### [facility] [address] [place] [address] [place] Monocytes (Bld) [#/Vol] 0.5 10*3/uL Normal 0.0-0.8 [facility] Comment on above: Performed By: #### T SH3, AST, BMP #### [facility] [address] [place] [address] Monocytes/100 WBC (Bld) 8.8 % Normal . [facility] Comment on above: Performed By: #### T SH3, AST, BMP #### [facility] [address] [place] [address] [place] Neutrophils (Bld) [#/Vol] 4.0 10*3/uL Normal 1.8-7.7 [facility] Comment on above: Performed By: #### T SH3, AST, BMP #### [facility] [address] [place] [address] [place] Neutrophils/100 WBC (Bld) 68.1 % Normal . [facility] Comment on above: Performed By: #### T SH3, AST, BMP #### [facility] [address] [place] [address] [place] NRBC% 0.1 /100{WBC} Normal 0-0.5 [facility] Comment on above: Performed By: #### T SH3, AST, BMP #### [facility] [address] [place] [address] Platelet mean volume (Bld) [Entitic vol] 7.6 fL Normal 6.3-10.7 [facility] Comment on above: Performed By: #### T SH3, AST, BMP #### [facility] [address] Platelets (Bld) [#/Vol] 164 10*3/uL Normal 150-450 [facility] Comment on above: Performed By: #### T SH3, AST, BMP #### [facility] [address] RBC (Bld) [#/Vol] 3.59 10*6/uL Low 3.60-5.00 [facility] Comment on above: Performed By: #### T SH3, AST, BMP #### [facility] [address] WBC (Bld) [#/Vol] 5.8 10*3/uL Normal 3.8-11.6 [facility] Comment on above: Performed By: #### T SH3, AST, BMP #### [facility] [address] Eosinophils Auto (Bld) [#/Vo l]Ordered By: Danilo Drummond on 11-24-2022 Eosinophils (Bld) [#/Vol] 0.1 10*3/uL 0.0-0.45 [facility] Eosinophils/100 WBC Auto (Bl d)Ordered By: Danilo Drummond on 11-24-2022 Eosinophils/100 WBC (Bld) 1.7 % . [facility] Erythrocyte distribution wid th Auto (RBC) [Ratio]Ordered By: Danilo Drummond on 11-24-2022 Erythrocyte distribution width (RBC) [Ratio] 14.5 % 11.9-15.3 [facility] Hematocrit Auto (Bld) [Volum e fraction]Ordered By: Danilo Drummond on 11-24-2022 Hematocrit (Bld) [Volume fraction] 34.5 % 34.0-46.4 [facility] Hemoglobin [Mass/volume] in BloodOrdered By: Danilo Drummond on 11-24-2022 Hemoglobin (Bld) [Mass/Vol] 11.4 g/dL 11.8-15.4 [facility] INR in Platelet poor plasma by Coagulation assayOrdered By: Jamie Hathaway on 11-24-2022 INR Coag (PPP) [Relative time] 1.2 {INR} [facility] Comment on above: INR Therapeutic Rang [...] PT Coag (PPP) [Time] 14.0 s 9.0-12.9 [facility] Leukocytes [#/volume] correc basim for nucleated erythrocytes in Blood by Automated counOrdered By: Danilo Drummond on 11-24-2022 WBC corrected for nucl RBC Auto (Bld) [#/Vol] 5.8 10*3/uL 3.8-11.6 [facility] Lymphocytes Auto (Bld) [#/Vo l]Ordered By: Danilo Drummond on 11-24-2022 Lymphocytes (Bld) [#/Vol] 1.2 10*3/uL 1.00-4.8 [facility] Lymphocytes/100 WBC Auto (Bl d)Ordered By: Danilo Drummond on 11-24-2022 Lymphocytes/100 WBC (Bld) 20.3 % . [facility] MCH Auto (RBC) [Entitic mass ]Ordered By: Danilo Drummond on 11-24-2022 MCH (RBC) [Entitic mass] 31.9 pg 24.7-34.3 [facility] MCHC Auto (RBC) [Mass/Vol]Or dered By: Danilo Drummond on 11-24-2022 MCHC (RBC) [Mass/Vol] 33.1 g/dL 32.0-35.0 [facility] MCV Auto (RBC) [Entitic vol] Ordered By: Danilo Drummond on 11-24-2022 MCV (RBC) [Entitic vol] 96.2 fL 80-100 [facility] Monocytes Auto (Bld) [#/Vol] Ordered By: Danilo Drummond on 11-24-2022 Monocytes (Bld) [#/Vol] 0.5 10*3/uL 0.0-0.8 [facility] Monocytes/100 WBC Auto (Bld) Ordered By: Danilo Drummond on 11-24-2022 Monocytes/100 WBC (Bld) 8.8 % . [facility] Neutrophils Auto (Bld) [#/Vo l]Ordered By: Danilo Drummond on 11-24-2022 Neutrophils (Bld) [#/Vol] 4.0 10*3/uL 1.8-7.7 [facility] Neutrophils/100 WBC Auto (Bl d)Ordered By: Danilo Drummond on 11-24-2022 Neutrophils/100 WBC (Bld) 68.1 % . [facility] Nucleated erythrocytes [Pres ence] in Blood by Automated countOrdered By: Danilo Drummond on 11-24-2022 Nucleated RBC Auto Ql (Bld) 0.1 /100{WBC} 0-0.5 [facility] Platelet mean volume Auto (B ld) [Entitic vol]Ordered By: Danilo Drummond on 11-24-2022 Platelet mean volume (Bld) [Entitic vol] 7.6 fL 6.3-10.7 [facility] Platelets Auto (Bld) [#/Vol] Ordered By: Danilo Drummond on 11-24-2022 Platelets (Bld) [#/Vol] 164 10*3/uL 150-450 [facility] Prothrombin Time INRon 11-24 INR Coag (PPP) [Relative time] 1.2 {INR} Normal [facility] Comment on above: Result Comment: INR [...] heart valves: 3 - 4.5 PERFORMED BY: [place] [address] [place] [address] PATHOLOGIST CUT AND COVER LINE WORKER GIULIA VALERIO M.D. Performed By: #### P T #### [facility] [address] PT Coag (PPP) [Time] 14.0 s High 9.0-12.9 [facility] Comment on above: Performed By: #### P T #### [facility] [address] RBC Auto (Bld) [#/Vol]Ordere d By: Danilo Drummond on 11-24-2022 RBC (Bld) [#/Vol] 3.59 10*6/uL 3.60-5.00 [facility] WBC Auto (Bld) [#/Vol]Ordere d By: Danilo Drummond on 11-24-2022 WBC (Bld) [#/Vol] 5.8 10*3/uL 3.8-11.6 [facility] Basic Metabolic Panelon 11-07 Anion gap [Moles/Vol] 10.1 mmol/L Normal 6.0-15.0 [facility] Comment on above: Performed By: #### T SH3, AST, BMP #### [address] Calcium [Mass/Vol] 8.2 mg/dL Low 8.6-10.3 [facility] Comment on above: Performed By: #### T SH3, AST, BMP #### [address] Chloride [Moles/Vol] 103 mmol/L Normal 98-107 [facility] Comment on above: Performed By: #### T SH3, AST, BMP #### [address] CO2 [Moles/Vol] 26.3 mmol/L Normal 21.0-31.0 [facility] Comment on above: Performed By: #### T SH3, AST, BMP #### [address] Creatinine [Mass/Vol] 1.01 mg/dL Normal 0.60-1.20 [facility] Comment on above: Performed By: #### T SH3, AST, BMP #### [facility] [address] [place] [address] [place] Creatinine Clr Calc Pharmacy 39.79 [facility] Comment on above: Result Comment: PERF ORMED BY: [place] [address] PATHOLOGIST CUT AND COVER LINE WORKER GIULIA VALERIO M.D. Performed By: #### T SH3, AST, BMP #### [facility] [address] [place] [address] [place] GFR/1.73 sq M.predicted MDRD (S/P/Bld) [Vol rate/Area] 53.544 mL/min/{1.73_m2} [facility] Comment on above: Performed By: #### T SH3, AST, BMP #### [place] [address] [place] Glucose [Mass/Vol] 101 mg/dL High 70-100 [facility] Comment on above: Result Comment: [place] Glucose Reference Range is dependent on time and content of last meal. Glucose of more than 200 mg/dL in a nonstressed, ambulatory subject supports the diagnosis of Diabetes Mellitus. ADA recommended reference range Performed By: #### T SH3, AST, BMP #### [place] [address] [place] Potassium [Moles/Vol] 4.4 mmol/L Normal 3.5-5.1 [facility] Comment on above: Performed By: #### T SH3, AST, BMP #### [place] [address] [place] Sodium [Moles/Vol] 135 mmol/L Low 136-145 [facility] Comment on above: Performed By: #### T SH3, AST, BMP #### [place] [address] [place] Urea nitrogen [Mass/Vol] 25 mg/dL Normal 7-25 [facility] Comment on above: Performed By: #### T SH3, AST, BMP #### [facility] [address] [place] [id number] [email or web address]] Calcium [Mass/volume] in Ser um or PlasmaOrdered By: Danilo Drummond on 11-23-2022 Calcium [Mass/Vol] 8.2 mg/dL 8.6-10.3 [facility] Carbon dioxide, total [Moles /volume] in Serum or PlasmaOrdered By: Danilo Drummond on 11-23-2022 CO2 [Moles/Vol] 26.3 mmol/L 21.0-31.0 [facility] Chloride [Moles/volume] in S payal or PlasmaOrdered By: Danilo Drummond on 11-23-2022 Chloride [Moles/Vol] 103 mmol/L 98-107 [facility] Creatinine [Mass/volume] in Serum or PlasmaOrdered By: Danilo Drummond on 11-23-2022 Creatinine [Mass/Vol] 1.01 mg/dL 0.60-1.20 [facility] Glucose [Mass/volume] in Ser um or PlasmaOrdered By: Danilo Drummond on 11-23-2022 Glucose [Mass/Vol] 101 mg/dL 70-100 [facility] Comment on above: ADA recommended refe rence rangeRandom Glucose Reference Range is dependent on time and content of last meal. Glucose of more than 200 mg/dL in a nonstressed, ambulatory subject supports the diagnosis of Diabetes Mellitus. No Panel InformationOrdered By: Danilo Drummond on 11-23-2022 Estimated GFR (CKD-EPI) 53.544 mL/Min [facility] Creatinine Clearance (Chem 39.79 [facility] Potassium [Moles/volume] in Serum or PlasmaOrdered By: Danilo Drummond on 11-23-2022 Potassium [Moles/Vol] 4.4 mmol/L 3.5-5.1 [facility] Prothrombin Time INRon 11-23 INR Coag (PPP) [Relative time] 1.2 {INR} Normal [facility] Comment on above: Result Comment: INR [...] heart valves: 3 - 4.5 PERFORMED BY: [place] [address] PATHOLOGIST CUT AND COVER LINE WORKER GIULIA VALERIO M.D. Performed By: #### P T #### [facility] [address] [place] [address] PT Coag (PPP) [Time] 13.8 s High 9.0-12.9 [facility] Comment on above: Performed By: #### P T #### [facility] [address] [place] [address] Serum or plasma anion gap de terminationOrdered By: Danilo Drummond on 11-23-2022 Anion gap [Moles/Vol] 10.1 mmol/L 6.0-15.0 [facility] Sodium [Moles/volume] in Ser um or PlasmaOrdered By: Danilo Drummond on 11-23-2022 Sodium [Moles/Vol] 135 mmol/L 136-145 [facility] Urea nitrogen [Mass/volume] in Serum or PlasmaOrdered By: Danilo Drummond on 11-23-2022 Urea nitrogen [Mass/Vol] 25 mg/dL 7-25 [facility] XR chest 2V*on 11-23-2022 XR chest 2V* [facility] [address] [place], [place] [id number] XRay Report Signed Patient: Erin Canales MR#: [id number] : 1935 Acct:[id number] Age/Sex: 87 / F ADM Date: 11/19/22 Loc: Room: [address] [place] [address] Type: ADM IN Attending Dr: Danilo Drummond [...] Christine Aguila M.D.11/23/2022 7:23 AM Dictation Location: [place] [address] Transcribed By: ANNA 11/23/22722 Dictated By: Christine Aguila MD 11/23/22720 Signed By: 11/23/22722 Normal [facility] Activated partial thrombopla stin time (aPTT) in platelet poor plasma by coagulation aOrdered By: Akhil Olivarez on 11-22-2022 aPTT Coag (PPP) [Time] 32.5 s 25.1-36.5 [facility] Basic Metabolic Panelon 11-07 Anion gap [Moles/Vol] 10.9 mmol/L Normal 6.0-15.0 [facility] Comment on above: Performed By: #### T SH3, AST, BMP #### [facility] [address] [place] [address] [place] Calcium [Mass/Vol] 8.3 mg/dL Low 8.6-10.3 [facility] Comment on above: Performed By: #### T SH3, AST, BMP #### [facility] [address] [place] [id number] [place] Chloride [Moles/Vol] 101 mmol/L Normal 98-107 [facility] Comment on above: Performed By: #### T SH3, AST, BMP #### [facility] [address] [place] [address] [place] CO2 [Moles/Vol] 24.4 mmol/L Normal 21.0-31.0 [facility] Comment on above: Performed By: #### T SH3, AST, BMP #### [facility] [address] [place] [address] [place] Creatinine [Mass/Vol] 1.25 mg/dL High 0.60-1.20 [facility] Comment on above: Performed By: #### T SH3, AST, BMP #### [facility] [address] [place] [address] [place] Creatinine Clr Calc Pharmacy 32.56 [facility] Comment on above: Result Comment: PERF ORMED BY: [facility] [address] [place] [address] PATHOLOGIST CUT AND COVER LINE WORKER GIULIA VALERIO M.D. Performed By: #### T SH3, AST, BMP #### [facility] [address] [place] [address] [place] GFR/1.73 sq M.predicted MDRD (S/P/Bld) [Vol rate/Area] 41.457 mL/min/{1.73_m2} [facility] Comment on above: Performed By: #### T SH3, AST, BMP #### [facility] [address] [place] [address] [place] Glucose [Mass/Vol] 106 mg/dL High 70-100 [facility] Comment on above: Result Comment: [facility] Glucose Reference Range is dependent on time and content of last meal. Glucose of more than 200 mg/dL in a nonstressed, ambulatory subject supports the diagnosis of Diabetes Mellitus. ADA recommended reference range Performed By: #### T SH3, AST, BMP #### [facility] [address] [place] [address] [place] Potassium [Moles/Vol] 4.3 mmol/L Normal 3.5-5.1 [facility] Comment on above: Performed By: #### T SH3, AST, BMP #### [facility] [address] [place] [address] [place] Sodium [Moles/Vol] 132 mmol/L Low 136-145 [facility] Comment on above: Performed By: #### T SH3, AST, BMP #### [facility] [address] Urea nitrogen [Mass/Vol] 27 mg/dL High 7- [facility] Comment on above: Performed By: #### T SH3, AST, BMP #### [address] Complete Blood Count Auto Di ffon 11-22-2022 Basophils (Bld) [#/Vol] 0.0 10*3/uL Normal 0.0-0.2 [facility] Comment on above: Result Comment: PERF ORMED BY: [place] [address] PATHOLOGIST CUT AND COVER LINE WORKER GIULIA VALERIO M.D. Performed By: #### T SH3, AST, BMP #### [address] Basophils/100 WBC (Bld) 0.8 % Normal . [facility] Comment on above: Performed By: #### T SH3, AST, BMP #### [address] Eosinophils (Bld) [#/Vol] 0.1 10*3/uL Normal 0.0-0.45 [facility] Comment on above: Performed By: #### T SH3, AST, BMP #### [address] Eosinophils/100 WBC (Bld) 2.0 % Normal . [facility] Comment on above: Performed By: #### T SH3, AST, BMP #### [address] Erythrocyte distribution width (RBC) [Ratio] 14.7 % Normal 11.9-15.3 [facility] Comment on above: Performed By: #### T SH3, AST, BMP #### [address] Hematocrit (Bld) [Volume fraction] 40.3 % Normal 34.0-46.4 [facility] Comment on above: Performed By: #### T SH3, AST, BMP #### [address] Hemoglobin (Bld) [Mass/Vol] 13.3 g/dL Normal 11.8-15.4 [facility] Comment on above: Performed By: #### T SH3, AST, BMP #### [address] Lymphocytes (Bld) [#/Vol] 1.0 10*3/uL Normal 1.00-4.8 [facility] Comment on above: Performed By: #### T SH3, AST, BMP #### [address] Lymphocytes/100 WBC (Bld) 17.8 % Normal . [facility] Comment on above: Performed By: #### T SH3, AST, BMP #### [address] MCH (RBC) [Entitic mass] 31.7 pg Normal 24.7-34.3 [facility] Comment on above: Performed By: #### T SH3, AST, BMP #### [address] MCV (RBC) [Entitic vol] 96.0 fL Normal 80-100 [facility] Comment on above: Performed By: #### T SH3, AST, BMP #### [address] Mean Corpuscular HGB Conc 33.0 g/dL Normal 32.0-35.0 [facility] Comment on above: Performed By: #### T SH3, AST, BMP #### [place] [address] [place] Monocytes (Bld) [#/Vol] 0.5 10*3/uL Normal 0.0-0.8 [facility] Comment on above: Performed By: #### T SH3, AST, BMP #### [place] [address] [place] Monocytes/100 WBC (Bld) 9.6 % Normal . [facility] Comment on above: Performed By: #### T SH3, AST, BMP #### [facility] [address] [place] [address] [place] Neutrophils (Bld) [#/Vol] 3.9 10*3/uL Normal 1.8-7.7 [facility] Comment on above: Performed By: #### T SH3, AST, BMP #### [facility] [address] [place] [address] [place] Neutrophils/100 WBC (Bld) 69.8 % Normal . [facility] Comment on above: Performed By: #### T SH3, AST, BMP #### [facility] [address] [place] [address] [place] NRBC% 0.1 /100{WBC} Normal 0-0.5 [facility] Comment on above: Performed By: #### T SH3, AST, BMP #### [address] Platelet mean volume (Bld) [Entitic vol] 7.5 fL Normal 6.3-10.7 [facility] Comment on above: Performed By: #### T SH3, AST, BMP #### [facility] [address] [place] [address] [place] Platelets (Bld) [#/Vol] 172 10*3/uL Normal 150-450 [facility] Comment on above: Performed By: #### T SH3, AST, BMP #### [facility] [address] [place] [address] [place] RBC (Bld) [#/Vol] 4.20 10*6/uL Normal 3.60-5.00 [facility] Comment on above: Performed By: #### T SH3, AST, BMP #### [facility] [address] [place] [address] [place] WBC (Bld) [#/Vol] 5.5 10*3/uL Normal 3.8-11.6 [facility] Comment on above: Performed By: #### T SH3, AST, BMP #### [place] [address] [place] ECG 12 lead ECGon 11-22-2022 ECG 12 lead ECG [facility] Main [facility] [address] [place] [address] Electrocardiograph Report Signed Patient: Erin Canales MR#: [id number] : 1935 Acct:[id number] Age/Sex: 87 / F ADM Date: 11/19/22 Loc: Room: [address] [place] [address] Type: ADM IN Attending Dr: Danilo Drummond [...] Signed By Stephanie Arteaga MD 1107 Normal [facility] Partial Thromboplastin Timeo n 11-22-2022 aPTT Coag (Bld) [Time] 32.5 s Normal 25.1-36.5 [facility] Comment on above: Result Comment: PERF ORMED BY: [place] [address] PATHOLOGIST CUT AND COVER LINE WORKER GIULIA VALERIO M.D. Performed By: #### T SH3, AST, BMP #### [place] [address] [place] Prothrombin Time INRon 11-22 INR Coag (PPP) [Relative time] 1.2 {INR} Normal [facility] Comment on above: Result Comment: INR [...] valves: 3 - 4.5 Performed By: #### T SH3, AST, BMP #### [facility] [address] [place] [id number] [facility] [[email or web address]] PT Coag (PPP) [Time] 13.7 s High 9.0-12.9 [facility] Comment on above: Performed By: #### T SH3, AST, BMP #### [facility] [address] [id number] [facility] [[email or web address]] XR chest 1V portableon 11-22 XR chest 1V portable [facility] Main [facility] [address] [place] [address] XRay Report Signed Patient: Erin Canales MR#: [id number] : 1935 Acct:[id number] Age/Sex: 87 / F ADM Date: 11/19/22 Loc: Room: [address] [place] [address] Type: ADM IN Attending Dr: Danilo Drummond [...] Christine Aguila M.D.11/22/2022 12:08 PM Dictation Location: [address] By: ANNA 11/22/22 1208 Dictated By: Christine Aguila MD 11/22/22 1203 Signed By: 11/22/22 1208 Normal [facility] Potassiumon 11-21-2022 Potassium [Moles/Vol] 4.3 mmol/L Normal 3.5-5.1 [facility] Comment on above: Order Comment: PT IS FASTING Result Comment: PERF ORMED BY: [place] [address] PATHOLOGIST CUT AND COVER LINE WORKER GIULIA VALERIO M.D. Performed By: #### T SH3, AST, BMP #### [address] Prothrombin Time INRon 11-21 INR Coag (PPP) [Relative time] 1.5 {INR} [facility] Comment on above: Result Comment: INR [...] heart valves: 3 - 4.5 PERFORMED BY: [place] [address] PATHOLOGIST CUT AND COVER LINE WORKER GIULIA VALERIO M.D. Performed By: #### T SH3, AST, BMP #### [address] PT Coag (PPP) [Time] 17.7 s Significant change up 9.0-12.9 [facility] Comment on above: Performed By: #### T SH3, AST, BMP #### [address] Basic Metabolic Panelon 11-07 Anion gap [Moles/Vol] 11.9 mmol/L Normal 6.0-15.0 [facility] Comment on above: Performed By: #### B MP, CBC #### [address] [place] [address] [place] Calcium [Mass/Vol] 8.4 mg/dL Low 8.6-10.3 [facility] Comment on above: Performed By: #### B MP, CBC #### [address] Chloride [Moles/Vol] 99 mmol/L Normal 98-107 [facility] Comment on above: Performed By: #### B MP, CBC #### [address] CO2 [Moles/Vol] 23.3 mmol/L Normal 21.0-31.0 [facility] Comment on above: Performed By: #### B MP, CBC #### [address] Creatinine [Mass/Vol] 1.06 mg/dL Normal 0.60-1.20 [facility] Comment on above: Performed By: #### B MP, CBC #### [address] Creatinine Clr Calc Pharmacy 38.40 Normal [facility] Comment on above: Result Comment: PERF ORMED BY: [place] [address] PATHOLOGIST CUT AND COVER LINE WORKER GIULIA VALERIO M.D. Performed By: #### B MP, CBC #### [address] GFR/1.73 sq M.predicted MDRD (S/P/Bld) [Vol rate/Area] 50.528 mL/min/{1.73_m2} Normal [facility] Comment on above: Performed By: #### B MP, CBC #### [facility] [address] [place] [address] [place] Glucose [Mass/Vol] 105 mg/dL High 70-100 [facility] Comment on above: Result Comment: [place] Glucose Reference Range is dependent on time and content of last meal. Glucose of more than 200 mg/dL in a nonstressed, ambulatory subject supports the diagnosis of Diabetes Mellitus. ADA recommended reference range Performed By: #### B MP, CBC #### [address] Potassium [Moles/Vol] 4.2 mmol/L Normal 3.5-5.1 [facility] Comment on above: Performed By: #### B MP, CBC #### [address] Sodium [Moles/Vol] 130 mmol/L Low 136-145 [facility] Comment on above: Performed By: #### B MP, CBC #### [address] Urea nitrogen [Mass/Vol] 19 mg/dL Normal 7-25 [facility] Comment on above: Performed By: #### B MP, CBC #### [address] Complete Blood Count Auto Di ffon 11-20-2022 Basophils (Bld) [#/Vol] 0.0 10*3/uL Normal 0.0-0.2 [facility] Comment on above: Result Comment: PERF ORMED BY: [place] [address] PATHOLOGIST CUT AND COVER LINE WORKER GIULIA VALERIO M.D. Performed By: #### B MP, CBC #### [place] [address] [place] Basophils/100 WBC (Bld) 0.9 % Normal . [facility] Comment on above: Performed By: #### B MP, CBC #### [place] [address] [place] Eosinophils (Bld) [#/Vol] 0.1 10*3/uL Normal 0.0-0.45 [facility] Comment on above: Performed By: #### B MP, CBC #### [place] [address] [place] Eosinophils/100 WBC (Bld) 2.0 % Normal . [facility] Comment on above: Performed By: #### B MP, CBC #### [facility] [address] Erythrocyte distribution width (RBC) [Ratio] 14.6 % Normal 11.9-15.3 [facility] Comment on above: Performed By: #### B MP, CBC #### [address] Hematocrit (Bld) [Volume fraction] 39.3 % Normal 34.0-46.4 [facility] Comment on above: Performed By: #### B MP, CBC #### [address] Hemoglobin (Bld) [Mass/Vol] 13.1 g/dL Normal 11.8-15.4 [facility] Comment on above: Performed By: #### B MP, CBC #### [address] Lymphocytes (Bld) [#/Vol] 1.2 10*3/uL Normal 1.00-4.8 [facility] Comment on above: Performed By: #### B MP, CBC #### [address] Lymphocytes/100 WBC (Bld) 21.8 % Normal . [facility] Comment on above: Performed By: #### B MP, CBC #### [address] MCH (RBC) [Entitic mass] 32.0 pg Normal 24.7-34.3 [facility] Comment on above: Performed By: #### B MP, CBC #### [address] MCV (RBC) [Entitic vol] 96.1 fL Normal 80-100 [facility] Comment on above: Performed By: #### B MP, CBC #### [address] Mean Corpuscular HGB Conc 33.4 g/dL Normal 32.0-35.0 [facility] Comment on above: Performed By: #### B MP, CBC #### [address] Monocytes (Bld) [#/Vol] 0.5 10*3/uL Normal 0.0-0.8 [facility] Comment on above: Performed By: #### B MP, CBC #### [address] Monocytes/100 WBC (Bld) 9.8 % Normal . [facility] Comment on above: Performed By: #### B MP, CBC #### [address] Neutrophils (Bld) [#/Vol] 3.5 10*3/uL Normal 1.8-7.7 [facility] Comment on above: Performed By: #### B MP, CBC #### [address] Neutrophils/100 WBC (Bld) 65.5 % Normal . [facility] Comment on above: Performed By: #### B MP, CBC #### [address] NRBC% 0.1 /100{WBC} Normal 0-0.5 [facility] Comment on above: Performed By: #### B MP, CBC #### [address] Platelet mean volume (Bld) [Entitic vol] 7.6 fL Normal 6.3-10.7 [facility] Comment on above: Performed By: #### B MP, CBC #### [address] Platelets (Bld) [#/Vol] 167 10*3/uL Normal 150-450 [facility] Comment on above: Performed By: #### B MP, CBC #### [address] RBC (Bld) [#/Vol] 4.09 10*6/uL Normal 3.60-5.00 [facility] Comment on above: Performed By: #### B MP, CBC #### [address] WBC (Bld) [#/Vol] 5.3 10*3/uL Normal 3.8-11.6 [facility] Comment on above: Performed By: #### B MP, CBC #### [address] Free T4 (Free Thyroxine)on 0 11-20-2022 Free T4 [Mass/Vol] 0.68 ng/dL Normal 0.61-1.12 [facility] Comment on above: Order Comment: Comme nt Add to an already drawn sample Result Comment: PERF ORMED BY: [place] [address] PATHOLOGIST CUT AND COVER LINE WORKER GIULIA VALERIO M.D. Performed By: #### P T #### [address] Prothrombin Time INRon 11-20 INR Coag (PPP) [Relative time] 3.4 {INR} Normal [facility] Comment on above: Result Comment: INR [...] heart valves: 3 - 4.5 PERFORMED BY: [place] [address] PATHOLOGIST CUT AND COVER LINE WORKER GIULIA VALERIO M.D. Performed By: #### T SH3, AST, BMP #### [address] PT Coag (PPP) [Time] 38.7 s High 9.0-12.9 [facility] Comment on above: Performed By: #### T SH3, AST, BMP #### [address] Thyroxine (T4) free [Mass/vo lume] in Serum or PlasmaOrdered By: Danilo Drummond on 11-20-2022 Free T4 [Mass/Vol] 0.68 ng/dL 0.61-1.12 [facility] US venous duplex LE BIon US venous duplex LE BI [facility] Main [facility] [address] [place] [address] Ultrasound Report Signed Patient: Erin Canales MR#: [id number] : 1935 Acct:[id number] Age/Sex: 87 / F ADM Date: 11/19/22 Loc: Room: [address] [place] [address] Type: ADM IN Attending Dr: Danilo Drummond [...] Jag Calles M.D.11/20/2022 2:07 PM Dictation Location: [place] [address] Tech: Nina Cb Transcribed By: ANNA 11/20/221406 Dictated By: Jag aClles MD 11/20/22 140 Signed By: 11/20/22 1407 Normal [facility] Basic Metabolic Panelon - Anion gap [Moles/Vol] 9.3 mmol/L Normal 6.0-15.0 [facility] Comment on above: Performed By: #### P T #### [facility] [address] [place], [place] [id number] [facility] [[email or web address]] Calcium [Mass/Vol] 8.5 mg/dL Low 8.6-10.3 [facility] Comment on above: Performed By: #### P T #### [address] Chloride [Moles/Vol] 97 mmol/L Low 98-107 [facility] Comment on above: Performed By: #### P T #### [address] CO2 [Moles/Vol] 27.7 mmol/L Normal 21.0-31.0 [facility] Comment on above: Performed By: #### P T #### [address] Creatinine [Mass/Vol] 0.94 mg/dL Normal 0.60-1.20 [facility] Comment on above: Performed By: #### P T #### [address] Creatinine Clr Calc Pharmacy 43.30 Normal [facility] Comment on above: Result Comment: PERF ORMED BY: [place] [address] PATHOLOGIST CUT AND COVER LINE WORKER GIULIA VALERIO M.D. Performed By: #### P T #### [address] GFR/1.73 sq M.predicted MDRD (S/P/Bld) [Vol rate/Area] 58.364 mL/min/{1.73_m2} Normal [facility] Comment on above: Performed By: #### P T #### [address] Glucose [Mass/Vol] 105 mg/dL High 70-100 [facility] Comment on above: Result Comment: [place] Glucose Reference Range is dependent on time and content of last meal. Glucose of more than 200 mg/dL in a nonstressed, ambulatory subject supports the diagnosis of Diabetes Mellitus. ADA recommended reference range Performed By: #### P T #### [address] Potassium [Moles/Vol] 4.0 mmol/L Normal 3.5-5.1 [facility] Comment on above: Performed By: #### P T #### [facility] [address] Sodium [Moles/Vol] 130 mmol/L Low 136-145 [facility] Comment on above: Performed By: #### P T #### [facility] [address] Urea nitrogen [Mass/Vol] 18 mg/dL Normal 7-25 [facility] Comment on above: Performed By: #### P T #### [facility] [address] [place] [address] ECG 12 lead ECGon 11-19-2022 ECG 12 lead ECG [facility] Main [facility] [address] [place] [address] Electrocardiograph Report Signed Patient: Erin Canales MR#: [id number] : 1935 Acct:[id number] Age/Sex: 87 / F ADM Date: 11/17/22 Loc: Room: [address] [place] [address] Type: ADM INOo Attending Dr: Ailyn Mneg MD Ordering Provider: Ailyn Meng MD Date [...] Anterior infarct present Confirmed by CHAPIS [facility], BG ([id number]) on 11/19/2022 9:20:27 PM Referred By: Electronically Signed By:BG NATION MD FAC Transcribed By: MUS Signed By Bg Nation MD, FACC 11/19/222119 [facility] Prothrombin Time INRon 11-19 INR Coag (PPP) [Relative time] 4.6 {INR} [facility] Comment on above: Result Comment: INR [...] heart valves: 3 - 4.5 PERFORMED BY: [place] [address] PATHOLOGIST CUT AND COVER LINE WORKER GIULIA VALERIO M.D. Performed By: #### T SH3, AST, BMP #### [address] PT Coag (PPP) [Time] 53.0 s High 9.0-12.9 [facility] Comment on above: Performed By: #### T SH3, AST, BMP #### [address] Basic Metabolic Panelon 11-07 Anion gap [Moles/Vol] 10.5 mmol/L Normal 6.0-15.0 [facility] Comment on above: Order Comment: PT IS FASTING Performed By: #### T SH3, AST, BMP #### [address] Calcium [Mass/Vol] 8.9 mg/dL Normal 8.6-10.3 [facility] Comment on above: Order Comment: PT IS FASTING Performed By: #### T SH3, AST, BMP #### [address] Chloride [Moles/Vol] 97 mmol/L Low 98-107 [facility] Comment on above: Order Comment: PT IS FASTING Performed By: #### T SH3, AST, BMP #### [address] CO2 [Moles/Vol] 29.2 mmol/L Normal 21.0-31.0 [facility] Comment on above: Order Comment: PT IS FASTING Performed By: #### T SH3, AST, BMP #### [address] [place] [address] [place] Creatinine [Mass/Vol] 1.03 mg/dL Normal 0.60-1.20 [facility] Comment on above: Order Comment: PT IS FASTING Performed By: #### T SH3, AST, BMP #### [facility] [address] [place] [address] [place] Creatinine Clr Calc Pharmacy 38.56 [facility] Comment on above: Order Comment: PT IS FASTING Performed By: #### T SH3, AST, BMP #### [facility] [address] [place] [address] [place] GFR/1.73 sq M.predicted MDRD (S/P/Bld) [Vol rate/Area] 52.299 mL/min/{1.73_m2} [facility] Comment on above: Order Comment: PT IS FASTING Performed By: #### T SH3, AST, BMP #### [facility] [address] Glucose [Mass/Vol] 103 mg/dL High 70-100 [facility] Comment on above: Order Comment: PT IS FASTING Result Comment: [facility] Glucose Reference Range is dependent on time and content of last meal. Glucose of more than 200 mg/dL in a nonstressed, ambulatory subject supports the diagnosis of Diabetes Mellitus. ADA recommended reference range Performed By: #### T SH3, AST, BMP #### [facility] [address] [place] [address] [place] Potassium [Moles/Vol] 4.7 mmol/L Normal 3.5-5.1 [facility] Comment on above: Order Comment: PT IS FASTING Performed By: #### T SH3, AST, BMP #### [facility] [address] [place] [address] [place] Sodium [Moles/Vol] 132 mmol/L Low 136-145 [facility] Comment on above: Order Comment: PT IS FASTING Performed By: #### T SH3, AST, BMP #### [facility] [address] [place] [address] [place] Urea nitrogen [Mass/Vol] 16 mg/dL Normal 7-25 [facility] Comment on above: Order Comment: PT IS FASTING Performed By: #### T SH3, AST, BMP #### [facility] [address] [place] [address] Cholesterol [Mass/volume] in Serum or PlasmaOrdered By: Jamie Hathaway on 11-18-2022 Cholesterol [Mass/Vol] 154 mg/dL 140-200 [facility] Comment on above: Chol less than 200 m g/dl low riskChol 201-239 mg/dl borderline riskChol 240 mg/dl and greater high risk Cholesterol in LDL Calc [Mas s/Vol]Ordered By: Jamie Hathaway on 11-18-2022 Cholesterol in LDL [Mass/Vol] 79 mg/dL 0-100 [facility] Comment on above: LDL ATP III CLASSIFI CATIONLDL less than 100 mg/dL OptimalLDL 100-129 mg/dL Near or above optimalLDL 130-159 mg/dL Borderline highLDL 160-189 mg/dL HighLDL greater than 189 mg/dL Very high Cholesterol in VLDL Calc [Ma ss/Vol]Ordered By: Jamie Hathaway on 11-18-2022 Cholesterol in VLDL [Mass/Vol] 25 mg/dL [facility] Complete Blood Count Auto Di ffon 11-18-2022 Basophils (Bld) [#/Vol] 0.1 10*3/uL Normal 0.0-0.2 [facility] Comment on above: Result Comment: PERF ORMED BY: [place] [address] PATHOLOGIST CUT AND COVER LINE WORKER GIULIA VALERIO M.D. Performed By: #### C BC #### [facility] [address] [place] [address] [place] Basophils/100 WBC (Bld) 1.2 % Normal . [facility] Comment on above: Performed By: #### C BC #### [facility] [address] [place] [address] [place] Eosinophils (Bld) [#/Vol] 0.1 10*3/uL Normal 0.0-0.45 [facility] Comment on above: Performed By: #### C BC #### [facility] [address] [place] [address] [place] Eosinophils/100 WBC (Bld) 1.7 % Normal . [facility] Comment on above: Performed By: #### C BC #### [address] Erythrocyte distribution width (RBC) [Ratio] 14.7 % Normal 11.9-15.3 [facility] Comment on above: Performed By: #### C BC #### [address] Hematocrit (Bld) [Volume fraction] 40.2 % Normal 34.0-46.4 [facility] Comment on above: Performed By: #### C BC #### [address] Hemoglobin (Bld) [Mass/Vol] 13.4 g/dL Normal 11.8-15.4 [facility] Comment on above: Performed By: #### C BC #### [address] Lymphocytes (Bld) [#/Vol] 1.2 10*3/uL Normal 1.00-4.8 [facility] Comment on above: Performed By: #### C BC #### [address] Lymphocytes/100 WBC (Bld) 23.5 % Normal . [facility] Comment on above: Performed By: #### C BC #### [address] MCH (RBC) [Entitic mass] 32.0 pg Normal 24.7-34.3 [facility] Comment on above: Performed By: #### C BC #### [address] MCV (RBC) [Entitic vol] 96.1 fL Normal 80-100 [facility] Comment on above: Performed By: #### C BC #### [address] Mean Corpuscular HGB Conc 33.3 g/dL Normal 32.0-35.0 [facility] Comment on above: Performed By: #### C BC #### [facility] [address] [place] [address] [place] Monocytes (Bld) [#/Vol] 0.5 10*3/uL Normal 0.0-0.8 [facility] Comment on above: Performed By: #### C BC #### [facility] [address] Monocytes/100 WBC (Bld) 9.8 % Normal . [facility] Comment on above: Performed By: #### C BC #### [facility] [address] Neutrophils (Bld) [#/Vol] 3.2 10*3/uL Normal 1.8-7.7 [facility] Comment on above: Performed By: #### C BC #### [address] Neutrophils/100 WBC (Bld) 63.8 % Normal . [facility] Comment on above: Performed By: #### C BC #### [address] NRBC% 0.2 /100{WBC} Normal 0-0.5 [facility] Comment on above: Performed By: #### C BC #### [address] Platelet mean volume (Bld) [Entitic vol] 7.8 fL Normal 6.3-10.7 [facility] Comment on above: Performed By: #### C BC #### [place] [address] [place] Platelets (Bld) [#/Vol] 198 10*3/uL Normal 150-450 [facility] Comment on above: Performed By: #### C BC #### [address] RBC (Bld) [#/Vol] 4.19 10*6/uL Normal 3.60-5.00 [facility] Comment on above: Performed By: #### C BC #### [address] [place] [address] [facility] [[email or web address]] WBC (Bld) [#/Vol] 5.0 10*3/uL Normal 3.8-11.6 [facility] Comment on above: Performed By: #### C BC #### [facility] [address] [id number] [facility] [[email or web address]] ECG 12 lead ECGon 11-18-2022 ECG 12 lead ECG [facility] [address] [place] [address] Electrocardiograph Report Signed Patient: Erin Canales MR#: [id number] : 1935 Acct:[id number] Age/Sex: 87 / F ADM Date: 11/17/22 Loc: Room: [address] [place] [address] Type: ADM INOo Attending Dr: Ailyn Meng [...] QT has shortened [id number] on 11/18/2022 2:24:41 PM Referred By: Electronically Signed By:BG NATION MD FACC Transcribed By: MUS Signed By Bg Nation MD, FACC 11/18/22 1424 Normal [facility] Lipid Panelon 11-18-2022 Cholesterol [Mass/Vol] 154 mg/dL Normal 140-200 [facility] Comment on above: Order Comment: PT IS FASTING Result Comment: Chol less than 200 mg/dl low risk Chol 201-239 mg/dl borderline risk Chol 240 mg/dl and greater high risk Performed By: #### T SH3, AST, BMP #### [facility] [address] Cholesterol in HDL [Mass/Vol] 50 mg/dL Normal 23-92 [facility] Comment on above: Order Comment: PT IS FASTING Result Comment: HDL CHOL ATP-III CLASSIFICATION Cardiovascular Risk HDL > or equal to 60 mg/dL LOW HDL < 40 mg/dL HIGH Performed By: #### T SH3, AST, BMP #### [address] Cholesterol.total/Chol esterol in HDL [Mass ratio] 3.1 {ratio} Normal <5.0 [facility] Comment on above: Order Comment: PT IS FASTING Result Comment: PERF ORMED BY: [place] [address] PATHOLOGIST C[employer] AND [employer] WORKER GIULIA VALERIO M.D. Performed By: #### T SH3, AST, BMP #### [address] LDL Cholesterol,Calculated 79 mg/dL Normal 0-100 [facility] Comment on above: Order Comment: PT IS FASTING Result Comment: LDL ATP III CLASSIFICATION LDL less than 100 mg/dL Optimal LDL 100-129 mg/dL Near or above optimal LDL 130-159 mg/dL Borderline high LDL 160-189 mg/dL High LDL greater than 189 mg/dL Very high Performed By: #### T SH3, AST, BMP #### [address] Triglyceride w/Reflex 125 mg/dL Normal 0-149 [facility] Comment on above: Order Comment: PT IS FASTING Result Comment: TRIG ATP III CLASSIFICATION TRIG less than 150 mg/dL Normal TRIG 150-199 mg/dL Borderline high TRIG 200-500 mg/dL High TRIG greater than 500 mg/dL Very high Standard traceable to the Center for Disease Conrtrol and Prevention (CDC) test method. Performed By: #### T SH3, AST, BMP #### [facility] [address] VLDL CHOLESTEROL 25 mg/dL Normal [facility] Comment on above: Order Comment: PT IS FASTING Performed By: #### T SH3, AST, BMP #### [facility] [address] [place] [id number] [facility] [[email or web address]] Magnesiumon 11-18-2022 Magnesium [Mass/Vol] 2.1 mg/dL Normal 1.9-2.7 [facility] Comment on above: Order Comment: Blossom nt add Performed By: #### P T #### [facility] [address] [place] [address] Magnesium [Mass/volume] in S payal or PlasmaOrdered By: Ailyn Meng on 11-18-2022 Magnesium [Mass/Vol] 2.1 mg/dL 1.9-2.7 [facility] Prothrombin Time INRon 11-18 INR Coag (PPP) [Relative time] 4.5 {INR} Normal [facility] Comment on above: Result Comment: INR [...] heart valves: 3 - 4.5 PERFORMED BY: [place] [address] PATHOLOGIST C[employer] AND [employer]OVER [employer] WORKER GIULIA VALERIO M.D. Performed By: #### P T #### [facility] [address] [place] [address] PT Coag (PPP) [Time] 52.3 s High 9.0-12.9 [facility] Comment on above: Performed By: #### P T #### [facility] [address] [place] [address] Serum or plasma high density lipoprotein (HDL) cholesterol measurementOrdered By: Jamie Hathaway on 11-18-2022 Cholesterol in HDL [Mass/Vol] 50 mg/dL [facility] Comment on above: HDL CHOL ATP-III CLA SSIFICATION Cardiovascular RiskHDL > or equal to 60 mg/dL LOWHDL < 40 mg/dL HIGH Serum or plasma total choles terol/high density lipoprotein (HDL) cholesterol mass ratOrdered By: Jamie Hathaway on 11-18-2022 Cholesterol.total/Chol esterol in HDL [Mass ratio] 3.1 {ratio} <5.0 [facility] Thyroid Stimulating Hormoneo n 11-18-2022 TSH Qn 7.98 m[IU]/L High 0.45-5.33 [facility] Comment on above: Order Comment: Comme nt add Result Comment: PERF ORMED BY: [place] [address] PATHOLOGIST C[employer] AND [employer] WORKER GIULIA VALERIO M.D. Performed By: #### P T #### [facility] [address] [place] [id number] [facility] [[email or web address]] Thyrotropin [Units/volume] i n Serum or PlasmaOrdered By: Ailyn Meng on 11-18-2022 TSH Qn 7.98 m[IU]/L 0.45-5.33 [facility] Triglyceride [Mass/volume] i n Serum or PlasmaOrdered By: Jamie Hathaway on 11-18-2022 Triglyceride [Mass/Vol] 125 mg/dL 0-149 [facility] Comment on above: TRIG ATP III CLASSIF ICATIONTRIG less than 150 mg/dL NormalTRIG 150-199 mg/dL Borderline highTRIG 200-500 mg/dL High TRIG greater than 500 mg/dL Very highStandard traceable to the Center for Disease Conrtrol and Prevention (CDC) test method. Troponin I High Sensitivityo n 11-18-2022 Troponin I High Sensitivity 18.8 pg/mL High 0.0-15.0 [facility] Comment on above: Result Comment: PERF ORMED BY: [place] [address] PATHOLOGIST CUT AND COVER LINE WORKER GIULIA VALERIO M.D. Performed By: #### P T #### [facility] [address] [place] [id number] [facility] [[email or web address]] Troponin I High Sensitivity 18.4 pg/mL High 0.0-15.0 [facility] Comment on above: Result Comment: PERF ORMED BY: [address] [address] PATHOLOGIST C[employer] AND [employer] WORKER GIULIA VALERIO M.D. Performed By: #### P T #### [address] Troponin I High Sensitivity 24.9 pg/mL High 0.0-15.0 [facility] Comment on above: Result Comment: PERF ORMED BY: [place] [address] PATHOLOGIST C[employer] AND [employer]OVER [employer] WORKER GIULIA VALERIO M.D. Performed By: #### B MP, CBC #### [address] Troponin I.cardiac [Mass/vol ume] in Serum or Plasma by Detection limit <= 0.01 ng/Ordered By: Jamie Hathaway on 11-18-2022 Troponin I.cardiac DL <= 0.01 ng/mL [Mass/Vol] 18.8 pg/mL 0.0-15.0 [facility] Activated partial thrombopla stin time (aPTT) in platelet poor plasma by coagulation aOrdered By: Philip Thompson on 11-17-2022 aPTT Coag (PPP) [Time] 46.9 s 25.1-36.5 [facility] B-Type Natriuretic Peptideon 11-17-2022 Natriuretic peptide B (Bld) [Mass/Vol] 249.0 pg/mL High 5-100 [facility] Comment on above: Result Comment: PERF ORMED BY: [place] [address] PATHOLOGIST C[employer] AND [employer] WORKER GIULIA VALERIO M.D. Performed By: #### T SH3, AST, BMP #### [address] Basic Metabolic Panelon 11-07 Anion gap [Moles/Vol] 12.5 mmol/L Normal 6.0-15.0 [facility] Comment on above: Performed By: #### P T, BNP, CBC, CK, HS TROP, BMP, PTT #### [place] [id number] [facility] [[email or web address]] Calcium [Mass/Vol] 9.5 mg/dL Normal 8.6-10.3 [facility] Comment on above: Performed By: #### P T, BNP, CBC, CK, HS TROP, BMP, PTT #### [facility] [address] Chloride [Moles/Vol] 94 mmol/L Low 98-107 [facility] Comment on above: Performed By: #### P T, BNP, CBC, CK, HS TROP, BMP, PTT #### [facility] [address] CO2 [Moles/Vol] 27.5 mmol/L Normal 21.0-31.0 [facility] Comment on above: Performed By: #### P T, BNP, CBC, CK, HS TROP, BMP, PTT #### [address] Creatinine [Mass/Vol] 1.12 mg/dL Normal 0.60-1.20 [facility] Comment on above: Performed By: #### P T, BNP, CBC, CK, HS TROP, BMP, PTT #### [address] Creatinine Clr Calc Pharmacy 34.38 [facility] Comment on above: Result Comment: PERF ORMED BY: [place] [address] PATHOLOGIST CUT AND COVER LINE WORKER GIULIA VALERIO M.D. Performed By: #### P T, BNP, CBC, CK, HS TROP, BMP, PTT #### [address] GFR/1.73 sq M.predicted MDRD (S/P/Bld) [Vol rate/Area] 47.298 mL/min/{1.73_m2} Normal [facility] Comment on above: Performed By: #### P T, BNP, CBC, CK, HS TROP, BMP, PTT #### [facility] [address] Glucose [Mass/Vol] 132 mg/dL High 70-100 [facility] Comment on above: Result Comment: [place] Glucose Reference Range is dependent on time and content of last meal. Glucose of more than 200 mg/dL in a nonstressed, ambulatory subject supports the diagnosis of Diabetes Mellitus. ADA recommended reference range Performed By: #### P T, BNP, CBC, CK, HS TROP, BMP, PTT #### [facility] [address] Potassium [Moles/Vol] 4.0 mmol/L Normal 3.5-5.1 [facility] Comment on above: Performed By: #### P T, BNP, CBC, CK, HS TROP, BMP, PTT #### [facility] [address] Sodium [Moles/Vol] 130 mmol/L Low 136-145 [facility] Comment on above: Performed By: #### P T, BNP, CBC, CK, HS TROP, BMP, PTT #### [facility] [address] Urea nitrogen [Mass/Vol] 19 mg/dL Normal 7-25 [facility] Comment on above: Performed By: #### P T, BNP, CBC, CK, HS TROP, BMP, PTT #### [facility] [address] Basophils Auto (Bld) [#/Vol] Ordered By: Philip Thompson on 11-17-2022 Basophils (Bld) [#/Vol] 0.0 10*3/uL 0.0-0.2 [facility] Basophils/100 WBC Auto (Bld) Ordered By: Philip Thompson on 11-17-2022 Basophils/100 WBC (Bld) 0.8 % . [facility] Calcium [Mass/volume] in Ser um or PlasmaOrdered By: Philip Thompson on 11-17-2022 Calcium [Mass/Vol] 9.5 mg/dL 8.6-10.3 [facility] Carbon dioxide, total [Moles /volume] in Serum or PlasmaOrdered By: Philip Thompson on 11-17-2022 CO2 [Moles/Vol] 27.5 mmol/L 21.0-31.0 [facility] Chloride [Moles/volume] in S payal or PlasmaOrdered By: Philip Thompson on 11-17-2022 Chloride [Moles/Vol] 94 mmol/L 98-107 [facility] Complete Blood Count Auto Di ffon 11-17-2022 Basophils (Bld) [#/Vol] 0.0 10*3/uL Normal 0.0-0.2 [facility] Comment on above: Result Comment: PERF ORMED BY: [place] [address] PATHOLOGIST CUT AND COVER [employer] WORKER GIULIA VALERIO M.D. Performed By: #### P T, BNP, CBC, CK, HS TROP, BMP, PTT #### [address] Basophils/100 WBC (Bld) 0.8 % Normal . [facility] Comment on above: Performed By: #### P T, BNP, CBC, CK, HS TROP, BMP, PTT #### [address] Eosinophils (Bld) [#/Vol] 0.0 10*3/uL Normal 0.0-0.45 [facility] Comment on above: Performed By: #### P T, BNP, CBC, CK, HS TROP, BMP, PTT #### [address] Eosinophils/100 WBC (Bld) 0.8 % Normal . [facility] Comment on above: Performed By: #### P T, BNP, CBC, CK, HS TROP, BMP, PTT #### [address] Erythrocyte distribution width (RBC) [Ratio] 15.0 % Normal 11.9-15.3 [facility] Comment on above: Performed By: #### P T, BNP, CBC, CK, HS TROP, BMP, PTT #### [address] Hematocrit (Bld) [Volume fraction] 44.6 % Normal 34.0-46.4 [facility] Comment on above: Performed By: #### P T, BNP, CBC, CK, HS TROP, BMP, PTT #### [address] Hemoglobin (Bld) [Mass/Vol] 14.8 g/dL Normal 11.8-15.4 [facility] Comment on above: Performed By: #### P T, BNP, CBC, CK, HS TROP, BMP, PTT #### [address] Lymphocytes (Bld) [#/Vol] 1.0 10*3/uL Normal 1.00-4.8 [facility] Comment on above: Performed By: #### P T, BNP, CBC, CK, HS TROP, BMP, PTT #### [address] Lymphocytes/100 WBC (Bld) 17.1 % Normal . [facility] Comment on above: Performed By: #### P T, BNP, CBC, CK, HS TROP, BMP, PTT #### [address] MCH (RBC) [Entitic mass] 32.1 pg Normal 24.7-34.3 [facility] Comment on above: Performed By: #### P T, BNP, CBC, CK, HS TROP, BMP, PTT #### [address] MCV (RBC) [Entitic vol] 96.6 fL Normal 80-100 [facility] Comment on above: Performed By: #### P T, BNP, CBC, CK, HS TROP, BMP, PTT #### [address] Mean Corpuscular HGB Conc 33.2 g/dL Normal 32.0-35.0 [facility] Comment on above: Performed By: #### P T, BNP, CBC, CK, HS TROP, BMP, PTT #### [address] Monocytes (Bld) [#/Vol] 0.5 10*3/uL Normal 0.0-0.8 [facility] Comment on above: Performed By: #### P T, BNP, CBC, CK, HS TROP, BMP, PTT #### [facility] [address] [place] [address] Monocytes/100 WBC (Bld) 16.19 % Normal 0.00-20.00 [facility] Comment on above: Performed By: #### P T, BNP, CBC, CK, HS TROP, BMP, PTT #### [facility] [address] [place] [address] Monocytes/100 WBC (Bld) 7.8 % Normal . [facility] Comment on above: Performed By: #### P T, BNP, CBC, CK, HS TROP, BMP, PTT #### [address] Neutrophils (Bld) [#/Vol] 4.3 10*3/uL Normal 1.8-7.7 [facility] Comment on above: Performed By: #### P T, BNP, CBC, CK, HS TROP, BMP, PTT #### [address] Neutrophils/100 WBC (Bld) 73.5 % Normal . [facility] Comment on above: Performed By: #### P T, BNP, CBC, CK, HS TROP, BMP, PTT #### [address] NRBC% 0.2 /100{WBC} Normal 0-0.5 [facility] Comment on above: Performed By: #### P T, BNP, CBC, CK, HS TROP, BMP, PTT #### [address] Platelet mean volume (Bld) [Entitic vol] 7.7 fL Normal 6.3-10.7 [facility] Comment on above: Performed By: #### P T, BNP, CBC, CK, HS TROP, BMP, PTT #### [facility] [address] [place] [address] Platelets (Bld) [#/Vol] 220 10*3/uL Normal 150-450 [facility] Comment on above: Performed By: #### P T, BNP, CBC, CK, HS TROP, BMP, PTT #### [facility] [address] RBC (Bld) [#/Vol] 4.62 10*6/uL Normal 3.60-5.00 [facility] Comment on above: Performed By: #### P T, BNP, CBC, CK, HS TROP, BMP, PTT #### [facility] [address] WBC (Bld) [#/Vol] 5.8 10*3/uL Normal 3.8-11.6 [facility] Comment on above: Performed By: #### P T, BNP, CBC, CK, HS TROP, BMP, PTT #### [facility] [address] Creatine Kinaseon 11-17-2022 CK [Catalytic activity/Vol] 62 U/L Normal 30 [facility] Comment on above: Performed By: #### T SH3, AST, BMP #### [facility] [address] Creatine kinase [Enzymatic a ctivity/volume] in Serum or PlasmaOrdered By: Philip Thompson on 11-17-2022 CK [Catalytic activity/Vol] 62 U/L [facility] Creatinine [Mass/volume] in Serum or PlasmaOrdered By: Philip Thompson on 11-17-2022 Creatinine [Mass/Vol] 1.12 mg/dL 0.60-1.20 [facility] ECG 12 lead ECGon 11-17-2022 ECG 12 lead ECG [facility] [address] [place] [address] Electrocardiograph Report Signed Patient: Erin Canales MR#: [id number] : 1935 Acct:[id number] Age/Sex: 87 / F ADM Date: 11/17/22 Loc: ER Room: Type: [facility] ER Attending Dr: Ordering Provider: Philip [...] Signed By Philip Thompson DO 2040 Normal [facility] Eosinophils Auto (Bld) [#/Vo l]Ordered By: Philip Thompson on 11-17-2022 Eosinophils (Bld) [#/Vol] 0.0 10*3/uL 0.0-0.45 [facility] Eosinophils/100 WBC Auto (Bl d)Ordered By: Philip Thompson on 11-17-2022 Eosinophils/100 WBC (Bld) 0.8 % . [facility] Erythrocyte distribution wid th Auto (RBC) [Ratio]Ordered By: Philip Thompson on 11-17-2022 Erythrocyte distribution width (RBC) [Ratio] 15.0 % 11.9-15.3 [facility] Glucose [Mass/volume] in Ser um or PlasmaOrdered By: Philip Thompson on 11-17-2022 Glucose [Mass/Vol] 132 mg/dL 70-100 [facility] Comment on above: ADA recommended refe rence rangeRandom Glucose Reference Range is dependent on time and content of last meal. Glucose of more than 200 mg/dL in a nonstressed, ambulatory subject supports the diagnosis of Diabetes Mellitus. Hematocrit Auto (Bld) [Volum e fraction]Ordered By: Philip Thompson on 11-17-2022 Hematocrit (Bld) [Volume fraction] 44.6 % 34.0-46.4 [facility] Hemoglobin [Mass/volume] in BloodOrdered By: Philip Thompson on 11-17-2022 Hemoglobin (Bld) [Mass/Vol] 14.8 g/dL 11.8-15.4 [facility] Laboratory - CoagulationOrde red By: Philip Thompson on 11-17-2022 PT Coag (PPP) [Time] 42.9 s 9.0-12.9 [facility] Leukocytes [#/volume] correc basim for nucleated erythrocytes in Blood by Automated counOrdered By: Philip Thompson on 11-17-2022 WBC corrected for nucl RBC Auto (Bld) [#/Vol] 5.8 10*3/uL 3.8-11.6 [facility] Lymphocytes Auto (Bld) [#/Vo l]Ordered By: Philip Thompson on 11-17-2022 Lymphocytes (Bld) [#/Vol] 1.0 10*3/uL 1.00-4.8 [facility] Lymphocytes/100 WBC Auto (Bl d)Ordered By: Philip Thompson on 11-17-2022 Lymphocytes/100 WBC (Bld) 17.1 % . [facility] MCH Auto (RBC) [Entitic mass ]Ordered By: Philip Thompson on 11-17-2022 MCH (RBC) [Entitic mass] 32.1 pg 24.7-34.3 [facility] MCHC Auto (RBC) [Mass/Vol]Or dered By: Philip Thompson on 11-17-2022 MCHC (RBC) [Mass/Vol] 33.2 g/dL 32.0-35.0 [facility] MCV Auto (RBC) [Entitic vol] Ordered By: Philip Thompson on 11-17-2022 MCV (RBC) [Entitic vol] 96.6 fL 80-100 [facility] Monocyte distribution width [Entitic volume] in Blood by AutomatedOrdered By: Philip Thompson on 11-17-2022 Monocyte distribution width Auto (Bld) [Entitic vol] 16.19 % 0.00-20.00 [facility] Monocytes Auto (Bld) [#/Vol] Ordered By: Philip Thompson on 11-17-2022 Monocytes (Bld) [#/Vol] 0.5 10*3/uL 0.0-0.8 [facility] Monocytes/100 WBC Auto (Bld) Ordered By: Philip Thompson on 11-17-2022 Monocytes/100 WBC (Bld) 7.8 % . [facility] Natriuretic peptide B [Mass/ Vol]Ordered By: Philip Thompson on 11-17-2022 Natriuretic peptide B (Bld) [Mass/Vol] 249.0 pg/mL 5-100 [facility] Neutrophils Auto (Bld) [#/Vo l]Ordered By: Philip Thompson on 11-17-2022 Neutrophils (Bld) [#/Vol] 4.3 10*3/uL 1.8-7.7 [facility] Neutrophils/100 WBC Auto (Bl d)Ordered By: Philip Thompson on 11-17-2022 Neutrophils/100 WBC (Bld) 73.5 % . [facility] No Panel InformationOrdered By: Philip Thompson on 11-17-2022 Estimated GFR (CKD-EPI) 47.298 mL/Min [facility] Creatinine Clearance (Chem 34.38 [facility] Nucleated erythrocytes [Pres ence] in Blood by Automated countOrdered By: Philip Thompson on 11-17-2022 Nucleated RBC Auto Ql (Bld) 0.2 /100{WBC} 0-0.5 [facility] Partial Thromboplastin Timeo n 11-17-2022 aPTT Coag (Bld) [Time] 46.9 s High 25.1-36.5 [facility] Comment on above: Result Comment: PERF ORMED BY: [facility] [address] [place] [address] PATHOLOGIST CUT AND COVER LINE WORKER GIULIA VALERIO M.D. Performed By: #### T SH3, AST, BMP #### [address] Platelet mean volume Auto (B ld) [Entitic vol]Ordered By: Philip Thompson on 11-17-2022 Platelet mean volume (Bld) [Entitic vol] 7.7 fL 6.3-10.7 [facility] Platelet poor plasma interna tional normalized ratio (INR) by coagulation assay (relatOrdered By: Philip Thompson on 11-17-2022 INR Coag (PPP) [Relative time] 3.7 {INR} [facility] Comment on above: INR Therapeutic Rang [...] 11-17-2022 Platelets (Bld) [#/Vol] 220 10*3/uL 150-450 [facility] Potassium [Moles/volume] in Serum or PlasmaOrdered By: Philip Thompson on 11-17-2022 Potassium [Moles/Vol] 4.0 mmol/L 3.5-5.1 [facility] Prothrombin Time INRon 11-17 INR Coag (PPP) [Relative time] 3.7 {INR} Normal [facility] Comment on above: Result Comment: INR [...] valves: 3 - 4.5 Performed By: #### T SH3, AST, BMP #### [facility] [address] PT Coag (PPP) [Time] 42.9 s High 9.0-12.9 [facility] Comment on above: Performed By: #### T SH3, AST, BMP #### [facility] [address] RBC Auto (Bld) [#/Vol]Ordere d By: Philip Thompson on 11-17-2022 RBC (Bld) [#/Vol] 4.62 10*6/uL 3.60-5.00 [facility] Serum or plasma anion gap de terminationOrdered By: Philip Thompson on 11-17-2022 Anion gap [Moles/Vol] 12.5 mmol/L 6.0-15.0 [facility] Sodium [Moles/volume] in Ser um or PlasmaOrdered By: Philip Thompson on 11-17-2022 Sodium [Moles/Vol] 130 mmol/L 136-145 [facility] Troponin I High Sensitivityo n 11-17-2022 Troponin I High Sensitivity 16.9 pg/mL High 0.0-15.0 [facility] Comment on above: Result Comment: PERF ORMED BY: [place] [address] PATHOLOGIST CUT AND COVER [employer] WORKER GIULIA VALERIO M.D. Performed By: #### T SH3, AST, BMP #### [facility] [address] Troponin I.cardiac [Mass/vol ume] in Serum or Plasma by Detection limit <= 0.01 ng/Ordered By: Philip Thompson on 11-17-2022 Troponin I.cardiac DL <= 0.01 ng/mL [Mass/Vol] 16.9 pg/mL 0.0-15.0 [facility] Urea nitrogen [Mass/volume] in Serum or PlasmaOrdered By: Philip Thompson on 11-17-2022 Urea nitrogen [Mass/Vol] 19 mg/dL 7-25 [facility] WBC Auto (Bld) [#/Vol]Ordere d By: Philip Thompson on 11-17-2022 WBC (Bld) [#/Vol] 5.8 10*3/uL 3.8-11.6 [facility] XR chest 1V portableon 11-17 XR chest 1V portable [facility] [address] [place] [address] XRay Report Signed Patient: Erin Canales MR#: [id number] : 1935 Acct:[id number] Age/Sex: 87 / F ADM Date: 11/17/22 Loc: ER Room: Type: [facility] ER Attending Dr: Copies to: Philip [...] Jag Arnold M.D.11/17/2022 8:08 PM Dictation Location: [place] [address] Transcribed By: [facility] 11/17/222007 Dictated By: Jag Arnold DO 11/17/221946 Signed By: 11/17/222007 [facility] Tobacco Screening.on 023 Tobacco use status CP b) No [employer] 600 DO Work Phone: Activated partial thrombopla stin time (aPTT) in platelet poor plasma by coagulation aOrdered By: Pearl Michel on 09-25-2022 aPTT Coag (PPP) [Time] 37.0 s 25.1-36.5 [facility] Coagulation Profileon 2022 aPTT Coag (Bld) [Time] 37.0 s High 25.1-36.5 [facility] Comment on above: Result Comment: PERF ORMED BY: [place] [address] PATHOLOGIST CUT AND COVER LINE WORKER GIULIA VALERIO M.D. Performed By: #### P T #### [address] INR Coag (PPP) [Relative time] 1.5 {INR} [facility] Comment on above: Result Comment: INR [...] 4.5 Performed By: #### P T #### [facility] [address] PT Coag (PPP) [Time] 16.9 s High 9.0-12.9 [facility] Comment on above: Performed By: #### P T #### [facility] [address] ECG 12 lead ECGon 09-25-2022 ECG 12 lead ECG [facility] [address] [place] [address] Electrocardiograph Report Signed Patient: Erin Canales MR#: [id number] : 1935 Acct:[id number] Age/Sex: 87 / F ADM Date: 09/25/22 Loc: Room: Type: [facility] Attending Dr: Pearl Michel DO Ordering Provider: [...] (201) on 09/26/2022 6:37:55 PM Referred By: NO Electronically Signed By:KIRK ESTEVEZ DO Transcribed By: MUS Signed By Kirk Estevez DO 09/26 1838 Normal [facility] Laboratory - CoagulationOrde red By: Pearl Michel on 09-25-2022 PT Coag (PPP) [Time] 16.9 s 9.0-12.9 [facility] No Panel Informationon 09-25 37.0\S\37.0 above high threshold 25.1-36.5 [facility] 250 DO Work Phone: Comment on above: PERFORMED BY:[facility] [place] [place], [place] [id number] MEDICAL DIRECTORGIULIA VALERIO M.D. 1.5\S\1.5 Normal [facility] 250 DO Work Phone: Comment on [...] - 4.5 16.9\S\16.9 above high threshold 9.0-12.9 [facility] 250 DO Work Phone: Platelet poor plasma interna tional normalized ratio (INR) by coagulation assay (relatOrdered By: Pearl Michel on 09-25-2022 INR Coag (PPP) [Relative time] 1.5 {INR} [facility] Comment on above: INR Therapeutic Rang [...] aPTT Coag (PPP) [Time] 48.7 s 25.1-36.5 [facility] Basophils Auto (Bld) [#/Vol] Ordered By: Pearl Michel on 09-22-2022 Basophils (Bld) [#/Vol] 0.1 10*3/uL 0.0-0.2 [facility] Basophils/100 WBC Auto (Bld) Ordered By: Pearl Michel on 09-22-2022 Basophils/100 WBC (Bld) 0.9 % . [facility] Blood Urea Nitrogenon 2022 Urea nitrogen [Mass/Vol] 44 mg/dL High 7-25 [facility] Comment on above: Performed By: #### P T #### [address] Carbon dioxide, total [Moles /volume] in Serum or PlasmaOrdered By: Pearl Michel on 09-22-2022 CO2 [Moles/Vol] 26.2 mmol/L 21.0-31.0 [facility] Chloride [Moles/volume] in S payal or PlasmaOrdered By: Pearl Michel on 09-22-2022 Chloride [Moles/Vol] 109 mmol/L 98-107 [facility] Cholesterol [Mass/volume] in Serum or PlasmaOrdered By: Pearl Michel on 09-22-2022 Cholesterol [Mass/Vol] 163 mg/dL 140-200 [facility] Comment on above: Chol less than 200 m g/dl low riskChol 201-239 mg/dl borderline riskChol 240 mg/dl and greater high risk Cholesterol in LDL Calc [Mas s/Vol]Ordered By: Pearl Michel on 09-22-2022 Cholesterol in LDL [Mass/Vol] 90 mg/dL 0-100 [facility] Comment on above: LDL ATP III CLASSIFI CATIONLDL less than 100 mg/dL OptimalLDL 100-129 mg/dL Near or above optimalLDL 130-159 mg/dL Borderline highLDL 160-189 mg/dL HighLDL greater than 189 mg/dL Very high Cholesterol in VLDL Calc [Ma ss/Vol]Ordered By: Pearl Michel on 09-22-2022 Cholesterol in VLDL [Mass/Vol] 27 mg/dL [facility] Coagulation Profileon 2022 aPTT Coag (Bld) [Time] 48.7 s High 25.1-36.5 [facility] Comment on above: Result Comment: PERF ORMED BY: [place] [address] PATHOLOGIST CUT AND C[employer] WORKER GIULIA VALERIO M.D. Performed By: #### P T #### [address] INR Coag (PPP) [Relative time] 3.6 {INR} Normal [facility] Comment on above: Result Comment: INR [...] 4.5 Performed By: #### P T #### [address] PT Coag (PPP) [Time] 41.6 s High 9.0-12.9 [facility] Comment on above: Performed By: #### P T #### [address] Complete Blood Count Auto Di ffon 09-22-2022 Basophils (Bld) [#/Vol] 0.1 10*3/uL Normal 0.0-0.2 [facility] Comment on above: Result Comment: PERF ORMED BY: [place] [address] PATHOLOGIST C[employer] AND COVER LINE WORKER GIULIA VALERIO M.D. Performed By: #### P T #### [address] Basophils/100 WBC (Bld) 0.9 % Normal . [facility] Comment on above: Performed By: #### P T #### [address] Eosinophils (Bld) [#/Vol] 0.1 10*3/uL Normal 0.0-0.45 [facility] Comment on above: Performed By: #### P T #### [address] [place] [address] [place] Eosinophils/100 WBC (Bld) 1.8 % Normal . [facility] Comment on above: Performed By: #### P T #### [address] Erythrocyte distribution width (RBC) [Ratio] 16.1 % High 11.9-15.3 [facility] Comment on above: Performed By: #### P T #### [address] Hematocrit (Bld) [Volume fraction] 39.0 % Normal 34.0-46.4 [facility] Comment on above: Performed By: #### P T #### [address] Hemoglobin (Bld) [Mass/Vol] 12.8 g/dL Normal 11.8-15.4 [facility] Comment on above: Performed By: #### P T #### [address] Lymphocytes (Bld) [#/Vol] 1.3 10*3/uL Normal 1.00-4.8 [facility] Comment on above: Performed By: #### P T #### [address] Lymphocytes/100 WBC (Bld) 21.7 % Normal . [facility] Comment on above: Performed By: #### P T #### [address] MCH (RBC) [Entitic mass] 31.4 pg Normal 24.7-34.3 [facility] Comment on above: Performed By: #### P T #### [address] MCV (RBC) [Entitic vol] 95.5 fL Normal 80-100 [facility] Comment on above: Performed By: #### P T #### [address] Mean Corpuscular HGB Conc 32.9 g/dL Normal 32.0-35.0 [facility] Comment on above: Performed By: #### P T #### [facility] [address] [place] [address] [place] Monocytes (Bld) [#/Vol] 0.5 10*3/uL Normal 0.0-0.8 [facility] Comment on above: Performed By: #### P T #### [facility] [address] Monocytes/100 WBC (Bld) 8.4 % Normal . [facility] Comment on above: Performed By: #### P T #### [facility] [address] Neutrophils (Bld) [#/Vol] 4.2 10*3/uL Normal 1.8-7.7 [facility] Comment on above: Performed By: #### P T #### [address] Neutrophils/100 WBC (Bld) 67.2 % Normal . [facility] Comment on above: Performed By: #### P T #### [address] NRBC% 0.1 /100{WBC} Normal 0-0.5 [facility] Comment on above: Performed By: #### P T #### [address] Platelet mean volume (Bld) [Entitic vol] 8.6 fL Normal 6.3-10.7 [facility] Comment on above: Performed By: #### P T #### [address] Platelets (Bld) [#/Vol] 180 10*3/uL Normal 150-450 [facility] Comment on above: Performed By: #### P T #### [address] RBC (Bld) [#/Vol] 4.09 10*6/uL Normal 3.60-5.00 [facility] Comment on above: Performed By: #### P T #### [facility] [address] WBC (Bld) [#/Vol] 6.2 10*3/uL Normal 3.8-11.6 [facility] Comment on above: Performed By: #### P T #### [facility] [address] Creatinineon 09-22-2022 Creatinine [Mass/Vol] 1.16 mg/dL Normal 0.60-1.20 [facility] Comment on above: Performed By: #### P T #### [facility] [address] GFR/1.73 sq M.predicted MDRD (S/P/Bld) [Vol rate/Area] 45.347 mL/min/{1.73_m2} Normal [facility] Comment on above: Performed By: #### P T #### [address] Creatinine [Mass/volume] in Serum or PlasmaOrdered By: Pearl Michel on 09-22-2022 Creatinine [Mass/Vol] 1.16 mg/dL 0.60-1.20 [facility] ECG 12 lead ECGon 09-22-2022 ECG 12 lead ECG [facility] Main [employer] [address] [place] [address] Electrocardiograph Report Signed Patient: Erin Canales MR#: [id number] : 1935 Acct:[id number] Age/Sex: 87 / F ADM Date: 09/22/22 Loc: Room: Type: [facility] Attending Dr: Pearl Michel DO Ordering Provider: Pearl Michel DO Date of Service: 09/22/22 ECG/ECG 12 lead ECG: [facility] Copies to: Test Reason : Blood Pressure [...] QT has lengthened Confirmed by SHER LUNA [facility], PHILIP ([id number]) on 09/22/2022 11:19:52 PM Referred By: ANAND Electronically Signed By:PHILIP OLIVAREZ MD [facility] Transcribed By: NAE Signed By Akhil Olivarez MD 09/22/22 0999 Normal [facility] Electrolyteson 09-22-2022 Anion gap [Moles/Vol] 11.4 mmol/L Normal 6.0-15.0 [facility] Comment on above: Performed By: #### P T #### [facility] [address] [place] [address] Chloride [Moles/Vol] 109 mmol/L High 98-107 [facility] Comment on above: Performed By: #### P T #### [facility] [address] CO2 [Moles/Vol] 26.2 mmol/L Normal 21.0-31.0 [facility] Comment on above: Performed By: #### P T #### [facility] [address] Potassium [Moles/Vol] 4.6 mmol/L Normal 3.5-5.1 [facility] Comment on above: Performed By: #### P T #### [facility] [address] [place] [address] [place] Sodium [Moles/Vol] 142 mmol/L Normal 136-145 [facility] Comment on above: Performed By: #### P T #### [facility] [address] [place] [address] [place] Eosinophils Auto (Bld) [#/Vo l]Ordered By: Pearl Michel on 09-22-2022 Eosinophils (Bld) [#/Vol] 0.1 10*3/uL 0.0-0.45 [facility] Eosinophils/100 WBC Auto (Bl d)Ordered By: Pearl Michel on 09-22-2022 Eosinophils/100 WBC (Bld) 1.8 % . [facility] Erythrocyte distribution wid th Auto (RBC) [Ratio]Ordered By: Pearl Michel on 09-22-2022 Erythrocyte distribution width (RBC) [Ratio] 16.1 % 11.9-15.3 [facility] Hematocrit Auto (Bld) [Volum e fraction]Ordered By: Pearl Michel on 09-22-2022 Hematocrit (Bld) [Volume fraction] 39.0 % 34.0-46.4 [facility] Hemoglobin [Mass/volume] in BloodOrdered By: Pearl Michel on 09-22-2022 Hemoglobin (Bld) [Mass/Vol] 12.8 g/dL 11.8-15.4 [facility] Laboratory - Chemistry and C hemistry - challengeon 09-22-2022 Cholesterol [Mass/Vol] 163\S\163 Normal 140-200 [facility] Work Phone: Comment on above: Chol less than 200 m g/dl low risk Chol 201-239 mg/dl borderline risk Chol 240 mg/dl and greater high risk Cholesterol in LDL [Mass/Vol] 90\S\90 Normal 0-100 [facility] ayde 250 DO Work Phone: Comment on above: LDL ATP III CLASSIFI CATION LDL less than 100 mg/dL Optimal LDL 100-129 mg/dL Near or above optimal LDL 130-159 mg/dL Borderline high LDL 160-189 mg/dL High LDL greater than 189 mg/dL Very high Laboratory - CoagulationOrde red By: Pearl Michel on 09-22-2022 PT Coag (PPP) [Time] 41.6 s 9.0-12.9 [facility] Leukocytes [#/volume] correc basim for nucleated erythrocytes in Blood by Automated counOrdered By: Pearl Michel on 09-22-2022 WBC corrected for nucl RBC Auto (Bld) [#/Vol] 6.2 10*3/uL 3.8-11.6 [facility] Lipid Panelon 09-22-2022 Cholesterol [Mass/Vol] 163 mg/dL Normal 140-200 [facility] Comment on above: Result Comment: Chol less than 200 mg/dl low risk Chol 201-239 mg/dl borderline risk Chol 240 mg/dl and greater high risk Performed By: #### P T #### [facility] [address] Cholesterol in HDL [Mass/Vol] 46 mg/dL Normal 23-92 [facility] Comment on above: Result Comment: HDL CHOL ATP-III CLASSIFICATION Cardiovascular Risk HDL > or equal to 60 mg/dL LOW HDL < 40 mg/dL HIGH Performed By: #### P T #### [facility] [address] Cholesterol.total/Chol esterol in HDL [Mass ratio] 3.5 {ratio} Normal <5.0 [facility] Comment on above: Result Comment: PERF ORMED BY: [place] [address] PATHOLOGIST [employer]OVER [employer] WORKER GIULIA VALERIO M.D. Performed By: #### P T #### [address] LDL Cholesterol,Calculated 90 mg/dL Normal 0-100 [facility] Comment on above: Result Comment: LDL ATP III CLASSIFICATION LDL less than 100 mg/dL Optimal LDL 100-129 mg/dL Near or above optimal LDL 130-159 mg/dL Borderline high LDL 160-189 mg/dL High LDL greater than 189 mg/dL Very high Performed By: #### P T #### [place] [address] [place] Triglyceride w/Reflex 137 mg/dL Normal 0-149 [facility] Comment on above: Result Comment: TRIG ATP III CLASSIFICATION TRIG less than 150 mg/dL Normal TRIG 150-199 mg/dL Borderline high TRIG 200-500 mg/dL High TRIG greater than 500 mg/dL Very high Standard traceable to the Center for Disease Conrtrol and Prevention (CDC) test method. Performed By: #### P T #### [facility] [address] VLDL CHOLESTEROL 27 mg/dL Normal [facility] Comment on above: Performed By: #### P T #### [facility] [address] Lymphocytes Auto (Bld) [#/Vo l]Ordered By: Pearl Michel on 09-22-2022 Lymphocytes (Bld) [#/Vol] 1.3 10*3/uL 1.00-4.8 [facility] Lymphocytes/100 WBC Auto (Bl d)Ordered By: Pearl Michel on 09-22-2022 Lymphocytes/100 WBC (Bld) 21.7 % . [facility] MCH Auto (RBC) [Entitic mass ]Ordered By: Pearl Michel on 09-22-2022 MCH (RBC) [Entitic mass] 31.4 pg 24.7-34.3 [facility] MCHC Auto (RBC) [Mass/Vol]Or dered By: Pearl Michel on 09-22-2022 MCHC (RBC) [Mass/Vol] 32.9 g/dL 32.0-35.0 [facility] MCV Auto (RBC) [Entitic vol] Ordered By: Pearl Michel on 09-22-2022 MCV (RBC) [Entitic vol] 95.5 fL 80-100 [facility] Monocytes Auto (Bld) [#/Vol] Ordered By: Pearl Michel on 09-22-2022 Monocytes (Bld) [#/Vol] 0.5 10*3/uL 0.0-0.8 [facility] Monocytes/100 WBC Auto (Bld) Ordered By: Pearl Michel on 09-22-2022 Monocytes/100 WBC (Bld) 8.4 % . [facility] Neutrophils Auto (Bld) [#/Vo l]Ordered By: Pearl Michel on 09-22-2022 Neutrophils (Bld) [#/Vol] 4.2 10*3/uL 1.8-7.7 [facility] Neutrophils/100 WBC Auto (Bl d)Ordered By: Pearl Michel on 09-22-2022 Neutrophils/100 WBC (Bld) 67.2 % . [facility] No Panel InformationOrdered By: Pearl Michel on 09-22-2022 Estimated GFR (CKD-EPI) 45.347 mL/Min [facility] Creatinine Clearance (Chem N/A [facility] No Panel Informationon 09-22 0.1\S\0.1 Normal 0-0.5 -[facility] ayde 250 DO Work Phone: [phone] Comment on above: PERFORMED BY:[facility] [place] [id number] MEDICAL DIRECTORGIULIA VALERIO M.D. 0.5\S\0.5 Normal 0.0-0.8 [facility] ayde 250 DO Work Phone: [phone] 1.3\S\1.3 Normal 1.00-4.8 -[facility] ayde 250 DO Work Phone: [phone] 4.2\S\4.2 Normal 1.8-7.7 -[facility] ayde 250 DO Work Phone: [phone] 0.9\S\0.9 Normal . [facility] ayde 250 DO Work Phone: [phone] 1.8\S\1.8 Normal . [facility] ayde 250 DO Work Phone: [phone] 8.4\S\8.4 Normal . [facility] ayde 250 DO Work Phone: [phone] 21.7\S\21.7 Normal . [facility] ayde 250 DO Work Phone: [phone] 67.2\S\67.2 Normal . [facility] ayde 250 DO Work Phone: [phone] 8.6\S\8.6 Normal 6.3-10.7 -[facility] ayde 250 DO Work Phone: [phone] 180\S\180 Normal 150-450 [facility] ayde 250 DO Work Phone: [phone] 16.1\S\16.1 above high threshold 11.9-15.3 -[facility] ayde 250 DO Work Phone: 32.9\S\32.9 Normal 32.0-35.0 [facility]Gamaliel ayde 250 DO Work Phone: 31.4\S\31.4 Normal 24.7-34.3 [facility] ayde 250 DO Work Phone: [phone] 95.5\S\95.5 Normal 80-100 [facility]Livieru ayde 250 DO Work Phone: 39.0\S\39.0 Normal 34.0-46.4 [facility] ayde 250 DO Work Phone: 12.8\S\12.8 Normal 11.8-15.4 [facility] ayde 250 DO Work Phone: 4.09\S\4.09 Normal 3.60-5.00 [facility] ayde 250 DO Work Phone: 6.2\S\6.2 Normal 3.8-11.6 [facility] ayde 250 DO Work Phone: 48.7\S\48.7 above high threshold 25.1-36.5 [facility]Gamaliel baltazary 250 DO Work Phone: Comment on above: PERFORMED BY:[place] [address] [address] [place], [place] [id number] MEDICAL DIRECTORGIULIA VALERIO M.D. 3.6\S\3.6 Normal [facility] ayde 250 DO Work Phone: Comment [...] - 4.5 41.6\S\41.6 above high threshold 9.0-12.9 [facility]Gamaliel messer 250 DO Work Phone: 11.4\S\11.4 Normal 6.0-15.0 [facility]Gam[facility] messer 250 DO Work Phone: [phone] 26.2\S\26.2 Normal 21.0-31.0 [facility]Gamal[facility] messer 250 DO Work Phone: 109\S\109 above high threshold 98-107 [facility]Gamal[facility] messer 250 DO Work Phone: [phone] 4.6\S\4.6 Normal 3.5-5.1 [facility]Gam[facility] messer 250 DO Work Phone: 142\S\142 Normal 136-145 [facility]am[facility] messer 250 DO Work Phone: 44\S\44 above high threshold 7-25 [facility] messer 250 DO Work Phone: [phone] 45.347\S\45.347 Normal [facility]Gamaliel messer 250 DO Work Phone: 1.16\S\1.16 Normal 0.60-1.20 [facility] HeartKalee messer 250 DO Work Phone: 3.5\S\3.5 Normal <5.0 [facility] HeartKalee messer 250 DO Work Phone: Comment on above: PERFORMED BY:[facility] [place], [place] [id number] MEDICAL DIRECTORGIULIA VALERIO M.D. 27\S\27 Normal [facility]Gamaliel messer 250 DO Work Phone: 137\S\137 Normal 0-149 [facility]am[facility] messer 250 DO Work Phone: Comment on above: TRIG ATP III CLASSIF ICATION TRIG less than 150 mg/dL Normal TRIG 150-199 mg/dL Borderline high TRIG 200-500 mg/dL High TRIG greater than 500 mg/dL Very high Standard traceable to the Center for Disease Conrtrol and Prevention (CDC) test method. 46\S\46 Normal 23-92 -[facility] ayde 250 DO Work Phone: Comment on above: HDL CHOL ATP-III CLA SSIFICATION Cardiovascular Risk HDL > or equal to 60 mg/dL LOW HDL < 40 mg/dL HIGH Nucleated erythrocytes [Pres ence] in Blood by Automated countOrdered By: Pearl Michel on 09-22-2022 Nucleated RBC Auto Ql (Bld) 0.1 /100{WBC} 0-0.5 [facility] Platelet mean volume Auto (B ld) [Entitic vol]Ordered By: Pearl Michel on 09-22-2022 Platelet mean volume (Bld) [Entitic vol] 8.6 fL 6.3-10.7 [facility] Platelet poor plasma interna tional normalized ratio (INR) by coagulation assay (relatOrdered By: Pearl Michel on 09-22-2022 INR Coag (PPP) [Relative time] 3.6 {INR} [facility] Comment on above: INR Therapeutic Rang [...] 09-22-2022 Platelets (Bld) [#/Vol] 180 10*3/uL 150-450 [facility] Potassium [Moles/volume] in Serum or PlasmaOrdered By: Pearl Michel on 09-22-2022 Potassium [Moles/Vol] 4.6 mmol/L 3.5-5.1 [facility] RBC Auto (Bld) [#/Vol]Ordere d By: Pearl Michel on 09-22-2022 RBC (Bld) [#/Vol] 4.09 10*6/uL 3.60-5.00 [facility] Serum or plasma anion gap de terminationOrdered By: Pearl Michel on 09-22-2022 Anion gap [Moles/Vol] 11.4 mmol/L 6.0-15.0 [facility] Serum or plasma high density lipoprotein (HDL) cholesterol measurementOrdered By: Pearl Michel on 09-22-2022 Cholesterol in HDL [Mass/Vol] 46 mg/dL 23-92 [facility] Comment on above: HDL CHOL ATP-III CLA SSIFICATION Cardiovascular RiskHDL > or equal to 60 mg/dL LOWHDL < 40 mg/dL HIGH Serum or plasma total choles terol/high density lipoprotein (HDL) cholesterol mass ratOrdered By: Pearl Michel on 09-22-2022 Cholesterol.total/Chol esterol in HDL [Mass ratio] 3.5 {ratio} <5.0 [facility] Sodium [Moles/volume] in Ser um or PlasmaOrdered By: Pearl Michel on 09-22-2022 Sodium [Moles/Vol] 142 mmol/L 136-145 [facility] Triglyceride [Mass/volume] i n Serum or PlasmaOrdered By: Pearl Michel on 09-22-2022 Triglyceride [Mass/Vol] 137 mg/dL 0-149 [facility] Comment on above: TRIG ATP III CLASSIF ICATIONTRIG less than 150 mg/dL NormalTRIG 150-199 mg/dL Borderline highTRIG 200-500 mg/dL High TRIG greater than 500 mg/dL Very highStandard traceable to the Center for Disease Conrtrol and Prevention (CDC) test method. Urea nitrogen [Mass/volume] in Serum or PlasmaOrdered By: Pearl Michel on 09-22-2022 Urea nitrogen [Mass/Vol] 44 mg/dL 7-25 [facility] WBC Auto (Bld) [#/Vol]Ordere d By: Pearl Michel on 09-22-2022 WBC (Bld) [#/Vol] 6.2 10*3/uL 3.8-11.6 [facility] Tobacco Screening.on 023 Fall risk assessment b) One or more fall s in the last year [facility] ayde 250 DO Work Phone: Tobacco use status CPHS b) No [facility] ayde 250 DO Work Phone: [facility] CARDIAC STRESS/REST INJE CTIONon 09-14-2022 [facility] CARDIAC STRESS/REST INJECTION Patient Name: ERIN CANALES STUDY: MYOCARDIAL PERFUSION STRESS TEST WITH LEXISCAN Performing facility: [facility], [address] [place] [address], [address], [place] [address] [facility] Provider: Wili Olivarez MD, [facility] PCP: Dr. Ashley Chaudhary Supervising provider: Bg Nation MD, [facility] INDICATION: Angina pectoris CAD; HISTORY: Gender: F; Age: 87 y/o ; Height: 0 cm; Weight: 0 kg. Abnormal EKG; CAD; High Cholesterol; Family HX CAD; Arrhythmias; HTN; Chest Pain; SOB; Denies smoking. Cardiac catheterization on 2009. PTCA on 2009. COMPARISON: Previous nuclear testing completed [id number] at [facility]. ACCESSION NUMBER(S): [id number]; [id number]; [id number] ORDERING CLINICIAN: AKHIL OLIVAREZ TECHNIQUE: ONE DAY [...] 48 %. When compared to study from 2010 the previous study reported small to moderate-sized anterolateral myocardial ischemia, current study revealed an area of basal anterior myocardial ischemia of small-size. Electronically signed by: BG NATION MD Normal [facility] No Panel Informationon 09-14 Please click on the link to view the study images Normal [facility] lk 600 DO Work Phone: Normal [facility] ayde 250 DO Work Phone: Tobacco Screening.on 023 Adult depression screening assessment No [facility] ayde 250 DO Work Phone: Fall risk assessment b) One or more fall s in the last year [facility] ayde 250 DO Work Phone: Tobacco use status CPHS b) No [facility] ayde 250 DO Work Phone: CNPNon 08-29-2022 CNPN Telephone (PLASMN) -- ERIN CANALES ([id number]) 1935 F Date Time Provider Department 08/29/22 SHWETA SOL During your visit today, we recorded the following information about you: Perry Zhang 08/29/2022 12:14 PM Signed Patient's daughter called with surgery questions and would like to speak with someone regarding anesthesia. Was not at appointment with mother when surgery was discussed. [phone] - Bettyajit Canales (daughter) Geeta Archer RN 08/29/2022 12:56 PM Signed Returned call to patient's daughter. She was asking if the weight could be placed under local, explained that it could. The other options will require general and clearance from her cigarette inspector. Allergies As of Date: 08/29/2022 Noted Allergy Reaction MOTRIN (IBUPROFEN) 10/29/2012 16 - Unknown [id number] REDUCTASE INHIBIT*08/25/2022 14 - Other: See Comments Comments: Cannot walk when she takes it Date Reviewed: 08/25/2022 Reviewed by: Thuy Robles MA - Fully Assessed Reason for Visit: Patient Question [1457] Prescriptions as of 08/29/2022 - torsemide (DEMADEX) [...] Encounter Status:Closed by PERRY ZHANG on 08/29/22 [facility] CNOVon 08-25-2022 CNOV Office Visit ([facility] ) -- ERIN CANALES ([id number]) 1935 F Date Time Provider Department 08/25/22 2:00 PM SHWETA SOL [facility] During your visit today, we recorded the following information about you: Temperature Pulse Blood pressure Weight 97.7 degrees 54/minute 113/48 83.8 kg Shweta Sol MD 08/25/2022 3:28 PM Signed CC: 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 This developed in October 2021. She had surgery on her lower eye lid, she has tried therapy and steroids with no improvement. She has difficulty eating and drinking, sleeping and even smelling due to the facial drooping. PAST MEDICAL HISTORY Diagnosis Date MGUS (monoclonal gammopathy of unknown significance) No past surgical history on file. AMITRIPTYLINE 25 mg tablet Take 25 mg by mouth daily at bedtime. DIGOXIN (DIGITEK ORAL) Take 0.125 mg by mouth. carvedilol (COREG) 6.25 mg tablet Take 1 tablet by mouth twice daily. lisinopril 5 mg tablet Take 10 mg by mouth once daily. Allergies: ALLERGIES Allergen Reactions Motrin [Ibuprofen] Unknown No family history on [...] like to have both of these addressed. From a timeframe it would be appropriate to do a masseter transfer or gracilis free flap however given her quite severe cardiovascular disease with history of multiple stents and being on Coumadin she is not an appropriate candidate especially given that 1 would not expect an 87-year-old to regain adequate neurologic function through the grafting. With that as a baseline, the other 2 options would include a static repair with either tensor fascia flory from the left thigh or palmaris longus from the right wrist which was noted to be there on exam. I would lean towards palmaris longus as she has fairly heavy thighs which would require a large incision to harvest the fascia flory and she is interested in minimizing surgery and recovery. A gold weight would be appropriate for the left upper eyelid and I did not have trial weights here but could be done just prior to surgery. From the standpoint of the tendon grafting this would require a preauricular incision to gain access to the zygoma where the palmaris could be looped and then taken down to the level of the commissure where it could be split going to the midline of the upper and lower lip and converging at the commissure itself to pull the mouth more towards the midline. Any of these options will require cardiac clearance as her risks are certainly significant compared to the potential benefits from the outlined procedures. Ultimately the gold weight could be done under local if that is the only operation approved by cardiology. Any of these options will require the patient to be off Coumadin for the perioperative period 5 days before and it could be started 1 day after. The patient is seen and examined by Dr. Sol and the following reflects his service. Scribed by Geeta Archer RN I agree with the Chief Complaint, ROS, and Past Histories independentl (more content not included)... 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 Normal [facility] Tobacco Screening.on 023 Tobacco use status CPHS b) No -[facility] ayde 250 DO Work Phone: CBC AUTO DIFFon 08-01-2022 BASO # 0.1 103/ul Normal 0.0-0.1 [facility] Comment on above: Performed By: #### C BC #### [facility] [address] [place] [address] Dr. Parth Wilson Basophils/100 WBC (Bld) 0.9 % Normal 0.2-2.0 [facility] Comment on above: Performed By: #### C BC #### [facility] [address] [place] [address] Dr. Parth Wilson EO # 0.1 103/ul Normal 0.0-0.7 [facility] Comment on above: Performed By: #### C BC #### [facility] [address] [place] [address] Dr. Parth Wilson Eosinophils/100 WBC (Bld) 1.6 % Normal 0.9-7.0 [facility] Comment on above: Performed By: #### C BC #### [facility] [address] [place] [address] Dr. Parth Wilson Erythrocyte distribution width (RBC) [Ratio] 14.7 % Normal 11.0-15.[address] [facility] Comment on above: Performed By: #### C BC #### [facility] [address] [place] [address] Dr. Parth Wilson Hematocrit (Bld) [Volume fraction] 41.0 % Normal 36.0-48.0 [facility] Comment on above: Performed By: #### C BC #### [facility] [address] [place] [address] Dr. Parth Wilson Hemoglobin (Bld) [Mass/Vol] 12.8 g/dL Normal 12.0-16.0 [facility] Comment on above: Performed By: #### C BC #### [facility] [address] [place] [address] Dr. Parth Wilson IG # 0.02 10e3/ul Normal 0.00-0.03 [facility] Comment on above: Performed By: #### C BC #### [facility] [address] [place] [address] Dr. Parth Wilson IG % 0.4 % Normal 0.0-0.5 [facility] Comment on above: Performed By: #### C BC #### [facility] [address] [place] [address] Dr. Parth Wilson LYMPH # 1.6 103/ul Normal 1.2-3.8 [facility] Comment on above: Performed By: #### C BC #### [facility] [address] [place] [address] Dr. Parth Wilson Lymphocytes/100 WBC (Bld) 29.2 % Normal 20.5-60.0 [facility] Comment on above: Performed By: #### C BC #### [facility] [address] [place] [address] Dr. Parth Wilson MANUAL DIFF REQ NO Normal [facility] Comment on above: Performed By: #### C BC #### [facility] [address] [place] [address] Dr. Parth Wilson MCH (RBC) [Entitic mass] 30.8 pg Normal 26.7-34.0 [facility] Comment on above: Performed By: #### C BC #### [facility] [address] [place] [address] Dr. Parth Wilson MCHC (RBC) [Mass/Vol] 31.2 g/dL Normal 29.9-35.2 [facility] Comment on above: Performed By: #### C BC #### [facility] [address] [place] [address] Dr. Parth Wilson MCV (RBC) [Entitic vol] 98.8 fL Normal 81.0-99.0 [facility] Comment on above: Performed By: #### C BC #### [facility] [address] [place] [address] Dr. Parth Wilson MONO # 0.5 103/ul Normal 0.3-0.8 [facility] Comment on above: Performed By: #### C BC #### [facility] [address] [place] [address] Dr. Parth Wilson Monocytes/100 WBC (Bld) 9.5 % Normal 1.7-12.0 [facility] Comment on above: Performed By: #### C BC #### [facility] [address] [place] [address] Dr. Parth Wilson NEUT # 3.3 103/ul Normal 1.4-6.5 [facility] Comment on above: Performed By: #### C BC #### [facility] [address] [place] [address] Dr. Parth Wilson Neutrophils/100 WBC (Bld) 58.4 % Normal 43.0-75.0 [facility] Comment on above: Performed By: #### C BC #### [facility] [address] [place] [address] Dr. Parth Wilson Platelet mean volume (Bld) [Entitic vol] 9.9 fL Normal 9.5-13.5 [facility] Comment on above: Performed By: #### C BC #### [facility] [address] [place] [address] Dr. Parth Wilson PLT 213 103/ul Normal 150-[address] [facility] Comment on above: Performed By: #### C BC #### [facility] [address] [place] [address] Dr. Parth Wilson RBC 4.15 106/ul Critically low 4.20-5.[address] [facility] Comment on above: Performed By: #### C BC #### [facility] [address] [place] [address] Dr. Parth Wilson WBC 5.6 103/ul Normal 4.0-11.[address] [facility] Comment on above: Performed By: #### C BC #### [facility] [address] [place], [place] [address] Dr. Parth Wilson Office Visit (Cardiology)on 07-05-2022 [...] mLAD PCI/COLBY mDiag PCI/COLBY OM3 PCI/COLBY RCA CONCRETE BLOCK MOLDER L>R bridging collaterals CX mild Hyperlipidemia (272.4) [...] contact the office if new symptoms arise. LINUX ADMIN in one month to reassess symptoms If [...] lot. She did report that walking into [employer] last week was more difficult , she [...] patient is (more content not included)... Normal [employer] Tobacco Screening.on 023 Adult depression screening assessment No [facility] [employer] DO Work Phone: Fall risk assessment b) One or more fall s in the last year [facility] [employer] 250 DO Work Phone: Tobacco use status [facility] b) No [facility] System[facility] DO Work Phone: CALCIUMon 06-28-2022 Calcium [Mass/Vol] 9.4 mg/dL Normal 8.5-10.1 [facility] Comment on above: Performed By: #### SINDHU WARD #### [facility] [address] [place] [address] Dr. Parth Wilson CREATININEon 06-28-2022 Creatinine [Mass/Vol] 1.27 mg/dL Critically high 0.55-1.02 [facility] Comment on above: Performed By: #### SINDHU WARD #### [facility] [address] [place] [address] Dr. Parth Wilson EGFR-AF OMANI 48 mL/min/1.73m2 Critically low >=[address] [facility] Comment on above: Performed By: #### SINDHU WARD #### [facility] [address] [place] [address] Dr. Parth Wilson EGFR-NON AF OMANI 40 mL/min/1.73m2 Critically low >=60 [facility] Comment on above: Performed By: #### SINDHU WARD #### [facility] [address] [place] [address] Dr. Parth Wilson Aspartate Amino Transferaseo n 06-13-2022 AST [Catalytic activity/Vol] 26 U/L Normal [facility] [place] [facility] Comment on above: Performed By: #### P T #### [facility] [address] Aspartate aminotransferase [ Enzymatic activity/volume] in Serum or PlasmaOrdered By: Akhil Olivarez on 06-13-2022 AST [Catalytic activity/Vol] 26 U/L [facility] [place] [facility] Basic Metabolic Panelon Anion gap [Moles/Vol] 16.1 mmol/L High 6.0-15.0 [facility] Comment on above: Performed By: #### P T #### [address] Calcium [Mass/Vol] 9.9 mg/dL Normal 8.2-10.2 [facility] Comment on above: Performed By: #### P T #### [facility] [address] [place] [address] Chloride [Moles/Vol] 99 mmol/L Normal 95-114 [facility] Comment on above: Performed By: #### P T #### [facility] [address] [place] [address] CO2 [Moles/Vol] 26.6 mmol/L Normal 22.0-30.0 [facility] Comment on above: Performed By: #### P T #### [facility] [address] Creatinine [Mass/Vol] 1.17 mg/dL High 0.44-1.03 [facility] Comment on above: Performed By: #### P T #### [facility] [address] [place] [address] [place] GFR/1.73 sq M.predicted MDRD (S/P/Bld) [Vol rate/Area] 44.882 mL/min/{1.73_m2} Normal [facility] Comment on above: Performed By: #### P T #### [place] [address] [place] Glucose [Mass/Vol] 111 mg/dL High 70-100 [facility] Comment on above: Result Comment: [place] Glucose Reference Range is dependent on time and content of last meal. Glucose of more than 200 mg/dL in a nonstressed, ambulatory subject supports the diagnosis of Diabetes Mellitus. ADA recommended reference range Performed By: #### P T #### [facility] [address] [place] [id number] [place] Potassium [Moles/Vol] 4.7 mmol/L Normal 3.5-5.1 [facility] Comment on above: Performed By: #### P T #### [facility] [address] [place] [address] [place] Sodium [Moles/Vol] 137 mmol/L Normal 136-146 [facility] Comment on above: Performed By: #### P T #### [facility] [address] [place] [id number] [place] Urea nitrogen [Mass/Vol] 35 mg/dL High 9-23 [facility] [place] [facility] Comment on above: Performed By: #### P T #### [facility] [address] [place] [id number] [place] Calcium [Mass/volume] in Ser um or PlasmaOrdered By: Akhil Olivarez on 06-13-2022 Calcium [Mass/Vol] 9.9 mg/dL 8.2-10.2 [facility] Carbon dioxide, total [Moles /volume] in Serum or PlasmaOrdered By: Akhil Olivarez on 06-13-2022 CO2 [Moles/Vol] 26.6 mmol/L 22.0-30.0 [facility] Chloride [Moles/volume] in S payal or PlasmaOrdered By: Akhil Olivarez on 06-13-2022 Chloride [Moles/Vol] 99 mmol/L 95-114 [facility] Creatinine and Glomerular fi ltration rate.predicted panel (S/P/Bld)Ordered By: Akhil Olivarez on 06-13-2022 Creatinine [Mass/Vol] 1.17 mg/dL 0.44-1.03 [facility] Glucose [Mass/volume] in Ser um or PlasmaOrdered By: Akhil Olivarez on 06-13-2022 Glucose [Mass/Vol] 111 mg/dL 70-100 [facility] Comment on above: ADA recommended refe rence rangeRandom Glucose Reference Range is dependent on time and content of last meal. Glucose of more than 200 mg/dL in a nonstressed, ambulatory subject supports the diagnosis of Diabetes Mellitus. Laboratory - Chemistry and C hemistry - challengeOrdered By: Akhil Olivarez on 06-13-2022 GFR/1.73 sq M.predicted MDRD (S/P/Bld) [Vol rate/Area] 44.882 mL/min/{1.73_m2} [facility] No Panel InformationOrdered By: Akhil Olivarez on 06-13-2022 Pharmacy Creatinine Clearance (Chem N/A [facility] [place] [facility] No Panel Informationon 06-13 3.34\S\3.34 Normal 0.45-5.33 [facility] [employer] DO Work Phone: Comment on above: PERFORMED BY:[facility] [place] [id number] MEDICAL DIRECTORGIULIA VALERIO M.D. 26\S\26 Normal 10-42 [facility] [employer] DO Work Phone: 9.9\S\9.9 Normal 8.2-10.2 [facility] [employer] DO Work Phone: 16.1\S\16.1 above high threshold 6.0-15.0 [facility] [employer] DO Work Phone: 26.6\S\26.6 Normal 22.0-30.0 [facility] [employer] DO Work Phone: 99\S\99 Normal 95-114 [facility] [employer] DO Work Phone: 4.7\S\4.7 Normal 3.5-5.1 [facility] [employer] DO Work Phone: 137\S\137 Normal 136-146 [facility] Timothy messer 250 DO Work Phone: 1.17\S\1.17 above high threshold 0.44-1.03 [facility] Timothy messer 250 DO Work Phone: 35\S\35 above high threshold 9-23 [facility] Timothy Krueger DO Work Phone: 111\S\111 above high threshold 70-100 [facility] Timothy Krueger DO Work Phone: Comment on above: Random Glucose Refer ence Range is dependent on time and content of last meal. Glucose of more than 200 mg/dL in a nonstressed, ambulatory subject supports the diagnosis of Diabetes Mellitus. ADA recommended reference range 44.882\S\44.882 Normal [facility] Timothy Krueger DO Work Phone: Potassium [Moles/volume] in Serum or PlasmaOrdered By: Akhil Olivarez on 06-13-2022 Potassium [Moles/Vol] 4.7 mmol/L 3.5-5.1 [facility] Radiologyon 06-13-2022 XR Chest 2 Views Normal [facility] Timothy Krueger DO Work Phone: Serum or plasma anion gap de terminationOrdered By: Akhil Olivarez on 06-13-2022 Anion gap [Moles/Vol] 16.1 mmol/L 6.0-15.0 [facility] Sodium [Moles/volume] in Ser um or PlasmaOrdered By: Akhil Olivarez on 06-13-2022 Sodium [Moles/Vol] 137 mmol/L 136-146 [facility] TSH DL <= 0.005 mIU/L QnOrde red By: Akhil Olivarez on 06-13-2022 TSH Qn 3.34 m[IU]/L 0.45-5.33 [facility] [place] [facility] Thyroid Stimulating Hormoneo n 06-13-2022 TSH Qn 3.34 m[IU]/L Normal 0.45-5.33 [facility] [place] [facility] Comment on above: Result Comment: PERF ORMED BY: [place] [address] PATHOLOGIST CUT AND COVER LINE WORKER GIULIA VALERIO M.D. Performed By: #### P T #### [address] Urea nitrogen [Mass/volume] in Serum or PlasmaOrdered By: Akhil Olivarez on 06-13-2022 Urea nitrogen [Mass/Vol] 35 mg/dL 12-30 [facility] [place] [facility] XR chest 2V*on 06-13-2022 XR chest 2V* [facility] [employer] [address] [place] [address] XRay Report Signed Patient: Erin Canales MR#: [id number] : 1935 Acct:[id number] Age/Sex: 87 / F ADM Date: 06/13/22 Loc: RT Room: Type: [facility] Attending Dr: Akhil Olivarez MD Copies to: [...] Estrada Jr., D.ORadha06/13/2022 3:26 PM Dictation Location: [place] [address] Transcribed By: [facility] 06/13/22 152 Dictated By: Aristides Estrada Jr, DO 06/13/22 1525 Signed By: 06/13/22 1526 Normal [facility] [place] [facility] Covid-19 PCR (CVDTBH)on SARS-CoV-2 (COVID-19) RNA CIERA+probe Ql (Unsp spec) Detected Critically abnormal NOT DETECTED [facility] Comment on above: Result Comment: This test is not yet approved or cleared by the [place] FDA. When there are no FDA-approved or cleared tests available, and other criteria are met, FDA can make tests available under an emergency access mechanism called an Emergency Use Authorization (EUA). The EUA for this test is supported by the [place] of Health and Human Service's (HHS's) declaration [...] longer be used). Performed By: #### C VDTB #### [facility] [address] [place] [address] Dr. Parth Wilson INFLUENZA A AND B AGon 03-10 [facility] SEE BELOW Normal [facility] Comment on above: Result Comment: Nega tive for Flu A protein angiten. Infection due to Flu A cannot be ruled out. Flu A angiten in the sample may be below the detection limit of the test. Performed By: #### I NFLUAB #### [facility] [address] [place] [address] Dr. Parth [facility] BEL[facility] Normal [facility] Comment on above: Result Comment: Nega tive for Flu B protein antigen. Infection due to Flu B cannot be ruled out. Flu B antigen in the sample may be below the detection limit of the test. Performed By: #### I NFLUAB #### [facility] [address] [place] [address] Dr. Parth Wilson INFLUENZA A AG Negative Normal NEGATIVE SEE COMMENT [facility] Comment on above: Performed By: #### I NFLUAB #### [facility] [address] [place] [address] Dr. Parth Wilson INFLUENZA B AG Negative Normal NEGATIVE SEE COMMENT [facility] Comment on above: Performed By: #### I NFLUAB #### [facility] [address] [place] [address] Dr. Parth Wilson INTERNAL CONTROLS Within Normal Limits Normal Wi thin Normal Limits [facility] Comment on above: Performed By: #### I NFLUAB #### [facility] [address] [place], [place] [address] Dr. Parth Wilson Office Visit (Cardiology)on 02-07-2022 [...] TabletTAKE 1 TABLET DAILY DIRECTED. Managed at [facility]. Allergies Medication Beta Adrenergic Blockers Allergy; [...] Signs Recorded: 07Feb2022 10:11AM Heart Rate62, Apical [id number], RUE, Sitting Cmgrxpvfx30, RUE, Sitting Height5 ft 2 in Lbyine882 lb BMI Ccnnrtgubg52.84 kg/m2 BSA Calculated1.85 Tobacco Useb) No Falls Screening (Age 18+)b) One or more falls in the last year EKG done in office today Physical Exam Constitutional: alert and in no acute distress. Eyes: no erythema, swelling or discharge from the (more content not included)... Normal [employer] Tobacco Screening.on 022 Fall risk assessment b) One or more fall s in the last year [facility] [employer]u ayde 250 DO Work Phone: Tobacco use status [facility] b) No [facility] lettrs-Slicethepie ayde 250 DO Work Phone: Activated partial thrombopla stin time (aPTT) in platelet poor plasma by coagulation aOrdered By: Myron Villarreal on 01-10-2022 aPTT Coag (PPP) [Time] 36.5 s 25.1-36.5 [facility] Albumin [Mass/volume] in Ser um or PlasmaOrdered By: Myron Villarreal on 01-10-2022 Albumin [Mass/Vol] 4.1 g/dL 3.2-5.5 [facility] Automated erythrocytes count in urine sediment (number/area)Ordered By: Myron Villarreal on 01-10-2022 RBC Auto (Urine sed) [#/Area] 0-1 [HPF] 0-4 [facility] [place] [facility] Automated leukocytes count i n urine sediment (number/area)Ordered By: Myron Villarreal on 01-10-2022 WBC Auto (Urine sed) [#/Area] 50-100 [HPF] 0-4 [facility] [place] [facility] Basophils Auto (Bld) [#/Vol] Ordered By: PROVIDER TEMP on 01-10-2022 Basophils (Bld) [#/Vol] 0.1 10*3/uL 0.0-0.2 [facility] [place] [facility] Basophils/100 WBC Auto (Bld) Ordered By: PROVIDER TEMP on 01-10-2022 Basophils/100 WBC (Bld) 1.1 % . [facility] [place] [facility] Bilirubin Test strip Ql (U)O rdered By: Myron Villarreal on 01-10-2022 Bilirubin Ql (U) Negative Negative [facility] Blood hemoglobin measurement (mass/volume)Ordered By: PROVIDER TEMP on 01-10-2022 Hemoglobin (Bld) [Mass/Vol] 14.2 g/dL 11.8-15.4 [facility] [place] [facility] Blood leukocytes automated c ount (number/volume)Ordered By: PROVIDER TEMP on 01-10-2022 WBC (Bld) [#/Vol] 7.4 10*3/uL 4.5-11.0 [facility] Color Auto (U)Ordered By: Stanislav Villarreal on 01-10-2022 Color (U) Yellow Yellow [facility] [place] [facility] Creatinine and Glomerular fi ltration rate.predicted panel (S/P/Bld)Ordered By: Myron Villarreal on 01-10-2022 Creatinine [Mass/Vol] 0.87 mg/dL 0.44-1.03 [facility] Eosinophils Auto (Bld) [#/Vo l]Ordered By: PROVIDER TEMP on 01-10-2022 Eosinophils (Bld) [#/Vol] 0.1 10*3/uL 0.0-0.45 [facility] [place] [facility] Eosinophils/100 WBC Auto (Bl d)Ordered By: PROVIDER TEMP on 01-10-2022 Eosinophils/100 WBC (Bld) 1.0 % . [facility] [place] [facility] Erythrocyte distribution wid th Auto (RBC) [Ratio]Ordered By: PROVIDER TEMP on 01-10-2022 Erythrocyte distribution width (RBC) [Ratio] 14.0 % 11.9-15.3 [facility] [place] [facility] Estimated glomerular filtrat ion rate (GFR) non- AmericanOrdered By: Myron Villarreal on 01-10-2022 GFR/1.73 sq M.predicted among non-blacks MDRD (S/P/Bld) [Vol rate/Area] > 60 mL/Min [facility] [place] [facility] Globulin Calc (S) [Mass/Vol] Ordered By: Myron Villarreal on 01-10-2022 Globulin (S) [Mass/Vol] 3.4 g/dL [facility] [place] [facility] Hematocrit Auto (Bld) [Volum e fraction]Ordered By: PROVIDER TEMP on 01-10-2022 Hematocrit (Bld) [Volume fraction] 42.8 % 34.0-46.4 [facility] [place] [facility] Ketones Auto test strip (U) [Mass/Vol]Ordered By: Myron Villarreal on 01-10-2022 Ketones (U) [Mass/Vol] Negative Negative [facility] - CoagulationOrde red By: Myron Villarreal on 01-10-2022 PT Coag (PPP) [Time] 18.6 s 9.0-12.9 [facility] - Hematology and Cell countsOrdered By: PROVIDER TEMP on 01-10-2022 Nucleated RBC/100 WBC (Bld) [Ratio] 0.2 % 0-0.5 [facility] [place] [facility] - UrinalysisOrder ed By: Myron Villarreal on 01-10-2022 Hyaline casts LM Ql (Urine sed) 0-8 [LPF] 0-8 [facility] [place] [facility] Lymphocytes Auto (Bld) [#/Vo l]Ordered By: PROVIDER TEMP on 01-10-2022 Lymphocytes (Bld) [#/Vol] 1.6 10*3/uL 1.00-4.8 [facility] [place] [facility] Lymphocytes/100 WBC Auto (Bl d)Ordered By: PROVIDER TEMP on 01-10-2022 Lymphocytes/100 WBC (Bld) 22.2 % . [facility] [place] [facility] MCH Auto (RBC) [Entitic mass ]Ordered By: PROVIDER TEMP on 01-10-2022 MCH (RBC) [Entitic mass] 32.9 pg 24.7-34.3 [facility] [place] [facility] MCHC Auto (RBC) [Mass/Vol]Or dered By: PROVIDER TEMP on 01-10-2022 MCHC (RBC) [Mass/Vol] 33.1 g/dL 32.0-35.0 [facility] MCV Auto (RBC) [Entitic vol] Ordered By: PROVIDER TEMP on 01-10-2022 MCV (RBC) [Entitic vol] 99.3 fL 80-100 [facility] [place] [facility] Monocytes Auto (Bld) [#/Vol] Ordered By: PROVIDER TEMP on 01-10-2022 Monocytes (Bld) [#/Vol] 0.5 10*3/uL 0.0-0.8 [facility] [place] [facility] Monocytes/100 WBC Auto (Bld) Ordered By: PROVIDER TEMP on 01-10-2022 Monocytes/100 WBC (Bld) 6.3 % . [facility] [place] [facility] Neutrophils Auto (Bld) [#/Vo l]Ordered By: PROVIDER TEMP on 01-10-2022 Neutrophils (Bld) [#/Vol] 5.2 10*3/uL 1.8-7.7 [facility] [place] [facility] Neutrophils/100 WBC Auto (Bl d)Ordered By: PROVIDER TEMP on 01-10-2022 Neutrophils/100 WBC (Bld) 69.4 % . [facility] [place] [facility] Nitrite Test strip Ql (U)Ord ered By: Myron Villarreal on 01-10-2022 Nitrite Ql (U) Positive Negative [facility] [place] [facility] No Panel InformationOrdered By: Myron Villarreal on 01-10-2022 Estimated GFR () > 60 mL/Min [facility] [place] [facility] Comment on above: GFR estimated refere nce range: According to KDOQI guidelines, <60 ml/min/1.73m2 is sufficient to diagnose a patient with chronic kidney disease. Pharmacy Creatinine Clearance (Chem 44.27 [facility] [place] [facility] Platelet mean volume Auto (B ld) [Entitic vol]Ordered By: PROVIDER TEMP on 01-10-2022 Platelet mean volume (Bld) [Entitic vol] 8.3 fL 6.3-10.7 [facility] [place] [facility] Platelet poor plasma interna tional normalized ratio (INR) by coagulation assay (relatOrdered By: Myron Villarreal on 01-10-2022 INR Coag (PPP) [Relative time] 1.6 {INR} [facility] [place] [facility] Comment on above: INR Therapeutic Rang [...] Platelets Auto (Bld) [#/Vol] Ordered By: PROVIDER TEMP on 01-10-2022 Platelets (Bld) [#/Vol] 281 10*3/uL 150-450 [facility] [place] [facility] Protein Auto test strip (U) [Mass/Vol]Ordered By: Myron Villarreal on 01-10-2022 Protein (U) [Mass/Vol] Negative Negative [facility] Protein [Mass/volume] in Ser um or PlasmaOrdered By: Myron Villarreal on 01-10-2022 Protein [Mass/Vol] 7.5 g/dL 6.1-7.9 [facility] RBC Auto (Bld) [#/Vol]Ordere d By: PROVIDER TEMP on 01-10-2022 RBC (Bld) [#/Vol] 4.31 10*6/uL 3.60-5.00 [facility] Serum or plasma alanine owusu otransferase measurement without P-5'-P (enzymatic activiOrdered By: Myron Villarreal on 01-10-2022 ALT No additional P-5'-P [Catalytic activity/Vol] 15 U/L [facility] [place] [facility] Serum or plasma albumin/glob ulin mass ratioOrdered By: Myron Villarreal on 01-10-2022 Albumin/Globulin [Mass ratio] 1.2 {ratio} [facility] [place] [facility] Serum or plasma alkaline dulce maria sphatase measurement (enzymatic activity/volume)Ordered By: Myron Villarreal on 01-10-2022 ALP [Catalytic activity/Vol] 56 U/L 32-92 [facility] [place] [facility] Serum or plasma anion gap de terminationOrdered By: Myron Villarreal on 01-10-2022 Anion gap [Moles/Vol] 14.5 mmol/L 6.0-15.0 [facility] Serum or plasma aspartate am inotransferase measurement (enzymatic activity/volume)Ordered By: Myron Villarreal on 01-10-2022 AST [Catalytic activity/Vol] 22 U/L [facility] [place] [facility] Serum or plasma calcium silva urement (mass/volume)Ordered By: Myron Villarreal on 01-10-2022 Calcium [Mass/Vol] 9.5 mg/dL 8.2-10.2 [facility] Serum or plasma chloride hector surement (moles/volume)Ordered By: Myron Villarreal on 01-10-2022 Chloride [Moles/Vol] 100 mmol/L 95-114 [facility] Serum or plasma glucose silva urement (mass/volume)Ordered By: Myron Villarreal on 01-10-2022 Glucose [Mass/Vol] 88 mg/dL 70-100 [facility] Comment on above: ADA recommended refe rence rangeRandom Glucose Reference Range is dependent on time and content of last meal. Glucose of more than 200 mg/dL in a nonstressed, ambulatory subject supports the diagnosis of Diabetes Mellitus. Serum or plasma potassium me asurement (moles/volume)Ordered By: Myron Villarreal on 01-10-2022 Potassium [Moles/Vol] 4.0 mmol/L 3.5-5.1 [facility] Serum or plasma sodium measu rement (moles/volume)Ordered By: Myron Villarreal on 01-10-2022 Sodium [Moles/Vol] 138 mmol/L 136-146 [facility] Serum or plasma total biliru bin measurement (mass/volume)Ordered By: Myron Villarreal on 01-10-2022 Bilirubin [Mass/Vol] 0.5 mg/dL 0.3-1.2 [facility] Serum or plasma total carbon dioxide measurement (moles/volume)Ordered By: Myron Villarreal on 01-10-2022 CO2 [Moles/Vol] 27.5 mmol/L 22.0-30.0 [facility] Serum or plasma urea nitroge n measurement (mass/volume)Ordered By: Myron Villarreal on 01-10-2022 Urea nitrogen [Mass/Vol] 20 mg/dL 9-23 [facility] [place] [facility] Specific gravity Auto test s trip (U) [Rel density]Ordered By: Myron Villarreal on 01-10-2022 Specific gravity (U) [Rel density] 1.014 1.001-1.03 0 [facility] [place] [facility] Squamous epithelial cells de tection in urine sediment by light microscopyOrdered By: Myron Villarreal on 01-10-2022 Epithelial cells.squamous LM Ql (Urine sed) 0-1 [HPF] 0-2 [facility] [place] [facility] Urine bacteria detection by automated methodOrdered By: Myron Villarreal on 01-10-2022 Bacteria Auto Ql (U) 4+ None Seen [facility] Urine clarity by refractomet ry automatedOrdered By: Myron Villarreal on 01-10-2022 Clarity Refractometry automated (U) Cloudy Clear [facility] [place] [facility] Urine glucose measurement by automated test strip (mass/volume)Ordered By: Myron Villarreal on 01-10-2022 Glucose Auto test strip (U) [Mass/Vol] Normal mg/dL Normal [facility] Urine hemoglobin detection b y automated test stripOrdered By: Myron Villarreal on 01-10-2022 Hemoglobin Auto test strip Ql (U) Negative Negative [facility] Urine leukocyte esterase det ection by automated test stripOrdered By: Myron Villarreal on 01-10-2022 Leukocyte esterase Auto test strip Ql (U) 4+ Negative [facility] Urobilinogen Auto test strip (U) [Mass/Vol]Ordered By: Myron Villarreal on 01-10-2022 Urobilinogen (U) [Mass/Vol] Normal mg/dL Normal [facility] pH Auto test strip (U)Ordere d By: Myron Villarreal on 01-10-2022 pH (U) 6.5 [pH] 5.0-9.0 [facility] Laboratory - CoagulationOrde red By: Doug Montana on 01-05-2022 PT Coag (PPP) [Time] 15.9 s 9.0-12.9 [facility] Platelet poor plasma interna tional normalized ratio (INR) by coagulation assay (relatOrdered By: Doug Montana on 01-05-2022 INR Coag (PPP) [Relative time] 1.4 {INR} [facility] Comment on above: INR Therapeutic Rang [...] 01-04-2022 Basophils (Bld) [#/Vol] 0.1 10*3/uL 0.0-0.2 [facility] Basophils/100 WBC Auto (Bld) Ordered By: Doug Montana on 01-04-2022 Basophils/100 WBC (Bld) 0.6 % . [facility] Blood hemoglobin measurement (mass/volume)Ordered By: Doug Montana on 01-04-2022 Hemoglobin (Bld) [Mass/Vol] 14.3 g/dL 11.8-15.4 [facility] Blood leukocytes automated c ount (number/volume)Ordered By: Doug Montana on 01-04-2022 WBC (Bld) [#/Vol] 10.4 10*3/uL 4.5-11.0 [facility] Eosinophils Auto (Bld) [#/Vo l]Ordered By: Doug Montana on 01-04-2022 Eosinophils (Bld) [#/Vol] 0.1 10*3/uL 0.0-0.45 [facility] Eosinophils/100 WBC Auto (Bl d)Ordered By: Doug Montana on 01-04-2022 Eosinophils/100 WBC (Bld) 0.6 % . [facility] Erythrocyte distribution wid th Auto (RBC) [Ratio]Ordered By: Doug Montana on 01-04-2022 Erythrocyte distribution width (RBC) [Ratio] 14.2 % 11.9-15.3 [facility] Hematocrit Auto (Bld) [Volum e fraction]Ordered By: Doug Montana on 01-04-2022 Hematocrit (Bld) [Volume fraction] 42.9 % 34.0-46.4 [facility] Laboratory - CoagulationOrde red By: Doug Montana on 01-04-2022 PT Coag (PPP) [Time] 19.8 s 9.0-12.9 [facility] Laboratory - Hematology and Cell countsOrdered By: Doug Montana on 01-04-2022 Nucleated RBC/100 WBC (Bld) [Ratio] 0.1 % 0-0.5 [facility] Lymphocytes Auto (Bld) [#/Vo l]Ordered By: Doug Montana on 01-04-2022 Lymphocytes (Bld) [#/Vol] 2.1 10*3/uL 1.00-4.8 [facility] Lymphocytes/100 WBC Auto (Bl d)Ordered By: Doug Montana on 01-04-2022 Lymphocytes/100 WBC (Bld) 20.2 % . [facility] MCH Auto (RBC) [Entitic mass ]Ordered By: Doug Montana on 01-04-2022 MCH (RBC) [Entitic mass] 33.0 pg 24.7-34.3 [facility] MCHC Auto (RBC) [Mass/Vol]Or dered By: Doug Montana on 01-04-2022 MCHC (RBC) [Mass/Vol] 33.3 g/dL 32.0-35.0 [facility] MCV Auto (RBC) [Entitic vol] Ordered By: Doug Montana on 01-04-2022 MCV (RBC) [Entitic vol] 99.1 fL 80-100 [facility] Monocytes Auto (Bld) [#/Vol] Ordered By: Doug Montana on 01-04-2022 Monocytes (Bld) [#/Vol] 0.6 10*3/uL 0.0-0.8 [facility] Monocytes/100 WBC Auto (Bld) Ordered By: Doug Montana on 01-04-2022 Monocytes/100 WBC (Bld) 5.3 % . [facility] Neutrophils Auto (Bld) [#/Vo l]Ordered By: Doug Montana on 01-04-2022 Neutrophils (Bld) [#/Vol] 7.6 10*3/uL 1.8-7.7 [facility] Neutrophils/100 WBC Auto (Bl d)Ordered By: Doug Montana on 01-04-2022 Neutrophils/100 WBC (Bld) 73.3 % . [facility] Platelet mean volume Auto (B ld) [Entitic vol]Ordered By: Doug Montana on 01-04-2022 Platelet mean volume (Bld) [Entitic vol] 7.8 fL 6.3-10.7 [facility] Platelet poor plasma interna tional normalized ratio (INR) by coagulation assay (relatOrdered By: Doug Montana on 01-04-2022 INR Coag (PPP) [Relative time] 1.8 {INR} [facility] Comment on above: INR Therapeutic Rang [...] 01-04-2022 Platelets (Bld) [#/Vol] 296 10*3/uL 150-450 [facility] RBC Auto (Bld) [#/Vol]Ordere d By: Doug Montana on 01-04-2022 RBC (Bld) [#/Vol] 4.33 10*6/uL 3.60-5.00 [facility] CALCIUMon 12-29-2021 Calcium [Mass/Vol] 9.3 mg/dL Normal 8.5-10.[address] [facility] Comment on above: Performed By: #### SINDHU WARD #### [facility] [address] [address] [address] Parth Wilson CREATININEon 12-29-2021 Creatinine [Mass/Vol] 0.97 mg/dL Normal 0.55-1.[address] [facility] Comment on above: Performed By: #### SINDHU WARD #### [facility] [address] [address] [address] Parth Wilson EGFR-AF OMANI >60 Normal >=[address] [facility] Comment on above: Performed By: #### SINDHU WARD #### [facility] [address] [address] [address] Parth Wilson EGFR-NON AF OMANI 54 mL/min/1.73m2 Critically low >=[address] [facility] Comment on above: Performed By: #### SINDHU WARD #### [facility] [address] [address] [address] Parth Wilson Creatinine and Glomerular fi ltration rate.predicted panel (S/P/Bld)Ordered By: Akhil Olivarez on 12-13-2021 Creatinine [Mass/Vol] 0.74 mg/dL 0.44-1.03 [facility] Estimated glomerular filtrat ion rate (GFR) non- AmericanOrdered By: Akhil Olivarez on 12-13-2021 GFR/1.73 sq M.predicted among non-blacks MDRD (S/P/Bld) [Vol rate/Area] > 60 mL/Min [facility] No Panel InformationOrdered By: Akhil Olivarez on 12-13-2021 Estimated GFR () > 60 mL/Min [facility] Comment on above: GFR estimated refere nce range: According to KDOQI guidelines, <60 ml/min/1.73m2 is sufficient to diagnose a patient with chronic kidney disease. Pharmacy Creatinine Clearance (Chem N/A [facility] No Panel Informationon 12-13 3.46\S\3.46 Normal 0.45-5.33 [facility] [employer] 250 DO Work Phone: Comment on above: PERFORMED BY:[address] [address] [place], [place] [id number] MEDICAL DIRECTORGIULIA VALERIO M.D. 19\S\19 Normal 10-42 [facility] [employer] DO Work Phone: 19.5\S\19.5 above high threshold 6.0-15.0 [facility] [employer] 250 DO Work Phone: 10.4\S\10.4 above high threshold 8.2-10.2 [facility] [employer] 250 DO Work Phone: 26.6\S\26.6 Normal 22.0-30.0 [facility] [employer] 250 DO Work Phone: 95\S\95 Normal 95-114 [facility] [employer] 250 DO Work Phone: 4.1\S\4.1 Normal 3.5-5.1 [facility] [employer] 250 DO Work Phone: 137\S\137 Normal 136-146 [facility] [employer]amaliel ayde 250 DO Work Phone: > 60 Normal [facility] lettrsKalee baltazary 250 DO Work Phone: Comment on above: GFR estimated refere nce range: According to KDOQI guidelines, <60 ml/min/1.73m2 is sufficient to diagnose a patient with chronic kidney disease. 0.74\S\0.74 Normal 0.44-1.03 [facility] [employer]Gamaliel ayde 250 DO Work Phone: 11\S\11 Normal 9-23 [facility] [employer]iel ayde 250 DO Work Phone: 111\S\111 above high threshold 70-100 [facility] [employer]Gamaliel messer 250 DO Work Phone: Comment on above: Random Glucose Refer ence Range is dependent on time and content of last meal. Glucose of more than 200 mg/dL in a nonstressed, ambulatory subject supports the diagnosis of Diabetes Mellitus. ADA recommended reference range Radiologyon 12-13-2021 XR Chest 2 Views Normal [facility] [employer]am[employer]iel ayde 250 DO Work Phone: Serum or plasma anion gap de terminationOrdered By: Akhil Olivarez on 12-13-2021 Anion gap [Moles/Vol] 19.5 mmol/L 6.0-15.0 [facility] Serum or plasma aspartate am inotransferase measurement (enzymatic activity/volume)Ordered By: Akhil Olivarez on 12-13-2021 AST [Catalytic activity/Vol] 19 U/L 10-42 [facility] Serum or plasma calcium silva urement (mass/volume)Ordered By: Akhil Olivarez on 12-13-2021 Calcium [Mass/Vol] 10.4 mg/dL 8.2-10.2 [facility] Serum or plasma chloride hector surement (moles/volume)Ordered By: Akhil Olivarez on 12-13-2021 Chloride [Moles/Vol] 95 mmol/L 95-114 [facility] Serum or plasma glucose silva urement (mass/volume)Ordered By: Akhil Olivarez on 12-13-2021 Glucose [Mass/Vol] 111 mg/dL 70-100 [facility] Comment on above: ADA recommended refe rence [...] on 12-13-2021 Potassium [Moles/Vol] 4.1 mmol/L 3.5-5.1 [facility] Serum or plasma sodium measu rement (moles/volume)Ordered By: Akhil Olivarez on 12-13-2021 Sodium [Moles/Vol] 137 mmol/L 136-146 [facility] Serum or plasma total carbon dioxide measurement (moles/volume)Ordered By: Akhil Olivarez on 12-13-2021 CO2 [Moles/Vol] 26.6 mmol/L 22.0-30.0 [facility] Serum or plasma urea nitroge n measurement (mass/volume)Ordered By: Akhil Olivarez on 12-13-2021 Urea nitrogen [Mass/Vol] 11 mg/dL 9-23 [facility] TSH DL <= 0.005 mIU/L QnOrde red By: Akhil Olivarez on 12-13-2021 TSH Qn 3.46 m[IU]/L 0.45-5.33 [facility] Office Visit (Cardiology)on 11-28-2021 Follow-up visit [...] Weight Tips; Status:Complete - Retrospective Authorization; Done: [id number] SocHx: Never a smoker Tobacco Use Screening; Status:Complete; Done: [id number] Patient Instructions Please bring all medicines, vitamins, [...] TABLET DAILY DIRECTED. Vitamin D 50 MCG (1999 [place]) Oral CapsuleTAKE 1 CAPSULE Daily Warfarin Sodium 3 MG Oral TabletTAKE 1 TABLET DAILY DIRECTED. Managed at [facility]. Allergies Medication Motrin TABS Allergy; Hives;; [...] negative for complaint. Vitals Vital Signs Recorded: [id number] 08:51AMRecorded: [id number] 08:22AM [id number], LUE, Fmrimuu415, LUE, Sitting Hgzwquoxj85, LUE, Fsjnyrw89, LUE, Sitting Heart Rate72, L Radial Height5 ft 2 in Rhviof577 lb BMI Licikmqeev77.64 kg/m2 BSA Calculated1.8 Tobacco Useb) No Falls [...] a) No falls within the last year -[facility]-Sandu ayde 250 DO Work Phone: Tobacco use status CP b) No [facility]-[employer]u ayde 250 DO Work Phone: Laboratory - CoagulationOrde red By: Nguyễn Langston on 10-29-2021 PT Coag (PPP) [Time] 38.1 s 9.0-12.9 [facility] Platelet poor plasma interna tional normalized ratio (INR) by coagulation assay (relatOrdered By: Nguyễn Langston on 10-29-2021 INR Coag (PPP) [Relative time] 3.3 {INR} [facility] Comment on above: INR Therapeutic Rang [...] aPTT Coag (PPP) [Time] 45.5 s 25.1-36.5 [facility] Albumin [Mass/volume] in Ser um or PlasmaOrdered By: Stephanie Locke on 10-28-2021 Albumin [Mass/Vol] 3.9 g/dL 3.2-5.5 [facility] Basophils Auto (Bld) [#/Vol] Ordered By: Nguyễn Langston on 10-28-2021 Basophils (Bld) [#/Vol] 0.0 10*3/uL 0.0-0.2 [facility] Basophils/100 WBC Auto (Bld) Ordered By: Nguyễn Langston on 10-28-2021 Basophils/100 WBC (Bld) 0.3 % . [facility] Bilirubin Test strip Ql (U)O rdered By: Stephanie Locke on 10-28-2021 Bilirubin Ql (U) Negative Negative [facility] Blood hemoglobin measurement (mass/volume)Ordered By: Nguyễn Langston on 10-28-2021 Hemoglobin (Bld) [Mass/Vol] 14.6 g/dL 11.8-15.4 [facility] Blood leukocytes automated c ount (number/volume)Ordered By: Nguyễn Langston on 10-28-2021 WBC (Bld) [#/Vol] 7.1 10*3/uL 4.5-11.0 [facility] C reactive protein [Mass/vol ume] in Serum or Plasma by High sensitivity methodOrdered By: Jayme Madrid on 10-28-2021 CRP High sensitivity method [Mass/Vol] 1.8 mg/L [facility] Comment on above: Cardiovascular Risk Classification [...] SARS-CoV-2 (COVID-19) Ab IA Ql Negative Negative [facility] Comment on above: This is a duplicate [employer] Xpert Xpress CoV-2/Flu/RSV Plus RNA by RT-PCR result to be used for statistical tracking purpose only. SARS-CoV-2 (COVID-19) RNA CIERA+probe Ql (Unsp spec) [facility] COVID-19 SOFIAOrdered By: Izzy Locke on 10-28-2021 SARS-CoV+SARS-CoV-2 (COVID-19) Ag IA.rapid Ql (Resp) Negative Negative [facility] Comment on above: This is a duplicate Luiza SARS Antigen (BRANDON) result to be used for statistical tracking purpose only. Cholesterol [Mass/volume] in Serum or PlasmaOrdered By: Ashely Adan on 10-28-2021 Cholesterol [Mass/Vol] 230 mg/dL 140-200 [facility] Comment on above: Chol less than 200 m g/dl low risk Chol 201-239 mg/dl borderline risk Chol 240 mg/dl and greater high risk Chol less than 200 m g/dl low riskChol 201-239 mg/dl borderline riskChol 240 mg/dl and greater high risk Cholesterol in LDL Calc [Mas s/Vol]Ordered By: Ashely Adan on 10-28-2021 Cholesterol in LDL [Mass/Vol] 158 mg/dL 0-100 [facility] Comment on above: LDL ATP III [...] 10-28-2021 Cholesterol in VLDL [Mass/Vol] 21 mg/dL [facility] Color Auto (U)Ordered By: Izzy Locke on 10-28-2021 Color (U) Yellow Yellow [facility] Creatine kinase [Enzymatic a ctivity/volume] in Serum or PlasmaOrdered By: Nguyễn Langston on 10-28-2021 CK [Catalytic activity/Vol] 58 U/L 22 [facility] Creatinine and Glomerular fi ltration rate.predicted panel (S/P/Bld)Ordered By: Nguyễn Langston on 10-28-2021 Creatinine [Mass/Vol] 0.88 mg/dL 0.44-1.03 [facility] Digoxin [Mass/volume] in Ser um or PlasmaOrdered By: Nguyễn Langston on 10-28-2021 Digoxin [Mass/Vol] 1.0 ng/mL 0.9-2.0 [facility] Comment on above: Last dose: - Eosinophils Auto (Bld) [#/Vo l]Ordered By: Nguyễn Langston on 10-28-2021 Eosinophils (Bld) [#/Vol] 0.0 10*3/uL 0.0-0.45 [facility] Eosinophils/100 WBC Auto (Bl d)Ordered By: Nguyễn Langston on 10-28-2021 Eosinophils/100 WBC (Bld) 0.3 % . [facility] Erythrocyte distribution wid th Auto (RBC) [Ratio]Ordered By: Nguyễn Langston on 10-28-2021 Erythrocyte distribution width (RBC) [Ratio] 13.1 % 11.9-15.3 [facility] Erythrocyte sedimentation ra te by Photometric methodOrdered By: Jayme Madrid on 10-28-2021 ESR Photometric method (Bld) [Velocity] 24 mm/hr 0-29 [facility] Estimated glomerular filtrat ion rate (GFR) non- AmericanOrdered By: Nguyễn Langston on 10-28-2021 GFR/1.73 sq M.predicted among non-blacks MDRD (S/P/Bld) [Vol rate/Area] > 60 mL/Min [facility] Globulin Calc (S) [Mass/Vol] Ordered By: Stephanie Locke on 10-28-2021 Globulin (S) [Mass/Vol] 3.7 g/dL [facility] Glucose mean value [Mass/vol ume] in Blood Estimated from glycated hemoglobinOrdered By: Ashely Adan on 10-28-2021 Average glucose Estimated from glycated hemoglobin (Bld) [Mass/Vol] 137 mg/dL [facility] Hematocrit Auto (Bld) [Volum e fraction]Ordered By: Nguyễn Langston on 10-28-2021 Hematocrit (Bld) [Volume fraction] 43.8 % 34.0-46.4 [facility] Hemoglobin A1c percentageOrd ered By: Ashely Adan on 10-28-2021 HbA1c (Bld) [Mass fraction] 6.4 % 4.3-5.6 [facility] Comment on above: Increased risk for d iabetes: 5.7 - 6.4 diabetes: >6.4 glycemic control for adults with diabetes: <7.0 Increased risk for d iabetes: 5.7 - 6.4diabetes: >6.4glycemic control for adults with diabetes: <7.0 Ketones Auto test strip (U) [Mass/Vol]Ordered By: Stephanie Locke on 10-28-2021 Ketones (U) [Mass/Vol] Trace Negative [facility] Laboratory - Chemistry and C hemistry - challengeOrdered By: Nguyễn Langston on 10-28-2021 Cobalamin (Vitamin B12) [Mass/Vol] 2953 pg/mL 180-914 [facility] Magnesium [Mass/Vol] 2.2 mg/dL 1.6-2.6 [facility] Laboratory - Chemistry and C hemistry - challengeOrdered By: Stephanie Locke on 10-28-2021 Natriuretic peptide B (Bld) [Mass/Vol] 75.0 pg/mL 5-100 [facility] Laboratory - CoagulationOrde red By: Stephanie Locke on 10-28-2021 PT Coag (PPP) [Time] 30.7 s 9.0-12.9 [facility] Laboratory - Hematology and Cell countsOrdered By: Nguyễn Langston on 10-28-2021 Nucleated RBC/100 WBC (Bld) [Ratio] 0.1 % 0-0.5 [facility] Lymphocytes Auto (Bld) [#/Vo l]Ordered By: Nguyễn Langston on 10-28-2021 Lymphocytes (Bld) [#/Vol] 1.3 10*3/uL 1.00-4.8 [facility] Lymphocytes/100 WBC Auto (Bl d)Ordered By: Nguyễn Langston on 10-28-2021 Lymphocytes/100 WBC (Bld) 18.0 % . [facility] MCH Auto (RBC) [Entitic mass ]Ordered By: Nguyễn Langston on 10-28-2021 MCH (RBC) [Entitic mass] 32.1 pg 24.7-34.3 [facility] MCHC Auto (RBC) [Mass/Vol]Or dered By: Nguyễn Langston on 10-28-2021 MCHC (RBC) [Mass/Vol] 33.4 g/dL 32.0-35.0 [facility] MCV Auto (RBC) [Entitic vol] Ordered By: Nguyễn Langston on 10-28-2021 MCV (RBC) [Entitic vol] 96.1 fL 80-100 [facility] Monocytes Auto (Bld) [#/Vol] Ordered By: Nguyễn Langston on 10-28-2021 Monocytes (Bld) [#/Vol] 0.8 10*3/uL 0.0-0.8 [facility] Monocytes/100 WBC Auto (Bld) Ordered By: Nguyễn Langston on 10-28-2021 Monocytes/100 WBC (Bld) 11.9 % . [facility] Neutrophils Auto (Bld) [#/Vo l]Ordered By: Nguyễn Langston on 10-28-2021 Neutrophils (Bld) [#/Vol] 4.9 10*3/uL 1.8-7.7 [facility] Neutrophils/100 WBC Auto (Bl d)Ordered By: Nguyễn Langston on 10-28-2021 Neutrophils/100 WBC (Bld) 69.5 % . [facility] Nitrite Test strip Ql (U)Ord ered By: Stephanie Locke on 10-28-2021 Nitrite Ql (U) Negative Negative [facility] No Panel InformationOrdered By: Nguyễn Langston on 10-28-2021 25-Hydroxy Vitamin D Total 46.5 ng/mL 30-100 [facility] Comment on above: VITAMIN D STATUS 25( [place])VITAMIN D RANGE (ng/mL) Deficient <20 Insufficient 20 to <30 Sufficient 30 to 100 Reference: Willie MF,Mejia NC, Angel FRANZ, et al. Evaluation,treatment, and prevention of vitamin D deficiency; an Endocrine Society clinical practice guideline. JCEM. 2010; 96(7):1911-30. VITAMIN D STATUS 25( [place])VITAMIN D RANGE (ng/mL) Deficient <20 Insufficient 20 to <30Sufficient 30 to 100Reference: Willie MF,Mejia NC, Angel FRANZ, et al. Evaluation,treatment, and prevention of vitamin D deficiency; an Endocrine Society clinical practice guideline. JCEM. 2010; 96(7):1911-30. Estimated GFR () > 60 mL/Min [facility] Comment on above: GFR estimated refere nce range: According to KDOQI guidelines, <60 ml/min/1.73m2 is sufficient to diagnose a patient with chronic kidney disease. Pharmacy Creatinine Clearance (Chem 56.85 [facility] Platelet mean volume Auto (B ld) [Entitic vol]Ordered By: Nguyễn Langston on 10-28-2021 Platelet mean volume (Bld) [Entitic vol] 8.4 fL 6.3-10.7 [facility] Platelet poor plasma interna tional normalized ratio (INR) by coagulation assay (relatOrdered By: Stephanie Locke on 10-28-2021 INR Coag (PPP) [Relative time] 2.7 {INR} [facility] Comment on above: INR Therapeutic Rang [...] 10-28-2021 Platelets (Bld) [#/Vol] 229 10*3/uL 150-450 [facility] Protein Auto test strip (U) [Mass/Vol]Ordered By: Stephanie Locke on 10-28-2021 Protein (U) [Mass/Vol] Negative [facility] Protein [Mass/volume] in Ser um or PlasmaOrdered By: Stephanie Locke on 10-28-2021 Protein [Mass/Vol] 7.6 g/dL 6.1-7.9 [facility] RBC Auto (Bld) [#/Vol]Ordere d By: Nguyễn Langston on 10-28-2021 RBC (Bld) [#/Vol] 4.56 10*6/uL 3.60-5.00 [facility] Serum or plasma alanine owusu otransferase measurement without P-5'-P (enzymatic activiOrdered By: Stephanie Locke on 10-28-2021 ALT No additional P-5'-P [Catalytic activity/Vol] 21 U/L 10-60 [facility] Serum or plasma albumin/glob ulin mass ratioOrdered By: Stephanie Locke on 10-28-2021 Albumin/Globulin [Mass ratio] 1.1 {ratio} [facility] Serum or plasma alkaline dulce maria sphatase measurement (enzymatic activity/volume)Ordered By: Stephanie Locke on 10-28-2021 ALP [Catalytic activity/Vol] 57 U/L 32-92 [facility] Serum or plasma aspartate am inotransferase measurement (enzymatic activity/volume)Ordered By: Stephanie Locke on 10-28-2021 AST [Catalytic activity/Vol] 25 U/L 10-42 [facility] Serum or plasma calcium silva urement (mass/volume)Ordered By: Nguyễn Langston on 10-28-2021 Calcium [Mass/Vol] 8.8 mg/dL 8.2-10.2 [facility] Serum or plasma chloride hector surement (moles/volume)Ordered By: Nguyễn Langston on 10-28-2021 Chloride [Moles/Vol] 98 mmol/L 95-114 [facility] Serum or plasma glucose silva urement (mass/volume)Ordered By: Nguyễn Langston on 10-28-2021 Glucose [Mass/Vol] 121 mg/dL 70-100 [facility] Comment on above: ADA recommended refe rence [...] Cholesterol in HDL [Mass/Vol] 50 mg/dL 35-85 [facility] Comment on above: HDL CHOL ATP-III CLA SSIFICATION Cardiovascular Risk HDL > or equal to 60 mg/dL LOW HDL < 40 mg/dL HIGH HDL CHOL ATP-III CLA SSIFICATION Cardiovascular RiskHDL > or equal to 60 mg/dL LOWHDL < 40 mg/dL HIGH Serum or plasma potassium me asurement (moles/volume)Ordered By: Nguyễn Langston on 10-28-2021 Potassium [Moles/Vol] 4.3 mmol/L 3.5-5.1 [facility] Serum or plasma sodium measu rement (moles/volume)Ordered By: Nguyễn Langston on 10-28-2021 Sodium [Moles/Vol] 134 mmol/L 136-146 [facility] Serum or plasma total biliru bin measurement (mass/volume)Ordered By: Stephanie Locke on 10-28-2021 Bilirubin [Mass/Vol] 0.8 mg/dL 0.3-1.2 [facility] Serum or plasma total carbon dioxide measurement (moles/volume)Ordered By: Nguyễn Langston on 10-28-2021 CO2 [Moles/Vol] 25.0 mmol/L 22.0-30.0 [facility] Serum or plasma total choles terol/high density lipoprotein (HDL) cholesterol mass ratOrdered By: Asehly Adan on 10-28-2021 Cholesterol.total/Chol esterol in HDL [Mass ratio] 4.6 {ratio} <5.0 [facility] Serum or plasma urea nitroge n measurement (mass/volume)Ordered By: Nguyễn Langston on 10-28-2021 Urea nitrogen [Mass/Vol] 27 mg/dL 9- [facility] Specific gravity Auto test s trip (U) [Rel density]Ordered By: Stephanie Locke on 10-28-2021 Specific gravity (U) [Rel density] 1.012 1.001-1.03 0 [facility] TSH DL <= 0.005 mIU/L QnOrde red By: Nguyễn Langston on 10-28-2021 TSH Qn 1.93 m[IU]/L 0.45-5.33 [facility] Thyroxine (T4) free [Mass/vo lume] in Serum or PlasmaOrdered By: Nguyễn Langston on 10-28-2021 Free T4 [Mass/Vol] 1.04 ng/dL 0.61-1.12 [facility] Triglyceride [Mass/volume] i n Serum or PlasmaOrdered By: Ashely Adan on 10-28-2021 Triglyceride [Mass/Vol] 108 mg/dL 35-149 [facility] Comment on above: TRIG ATP III [...] High sensitivity method [Mass/Vol] 13 pg/mL 0-15 [facility] Urine clarity by refractomet ry automatedOrdered By: Stephanie Locke on 10-28-2021 Clarity Refractometry automated (U) Clear Clear [facility] Urine glucose measurement by automated test strip (mass/volume)Ordered By: Stephanie Locke on 10-28-2021 Glucose Auto test strip (U) [Mass/Vol] Normal mg/dL Normal [facility] Urine hemoglobin detection b y automated test stripOrdered By: Stephanie Locke on 10-28-2021 Hemoglobin Auto test strip Ql (U) Negative Negative [facility] Urine leukocyte esterase det ection by automated test stripOrdered By: Stephanie Locke on 10-28-2021 Leukocyte esterase Auto test strip Ql (U) Negative Negative [facility] Urobilinogen Auto test strip (U) [Mass/Vol]Ordered By: Stephanie Locke on 10-28-2021 Urobilinogen (U) [Mass/Vol] Normal mg/dL Normal [facility] pH Auto test strip (U)Ordere d By: Stephanie Locke on 10-28-2021 pH (U) 6.0 [pH] 5.0-9.0 [facility] Activated partial thrombopla stin time (aPTT) in platelet poor plasma by coagulation aOrdered By: Myron Villarreal on 10-25-2021 aPTT Coag (PPP) [Time] 44.9 s 25.1-36.5 [facility] Albumin [Mass/volume] in Ser um or PlasmaOrdered By: Myron Villarreal on 10-25-2021 Albumin [Mass/Vol] 4.1 g/dL 3.2-5.5 [facility] Basophils Auto (Bld) [#/Vol] Ordered By: Myron Villarreal on 10-25-2021 Basophils (Bld) [#/Vol] 0.1 10*3/uL 0.0-0.2 [facility] Basophils/100 WBC Auto (Bld) Ordered By: Myron Villarreal on 10-25-2021 Basophils/100 WBC (Bld) 0.9 % . [facility] Blood hemoglobin measurement (mass/volume)Ordered By: Myron Villarreal on 10-25-2021 Hemoglobin (Bld) [Mass/Vol] 15.8 g/dL 11.8-15.4 [facility] Blood leukocytes automated c ount (number/volume)Ordered By: Myron Villarreal on 10-25-2021 WBC (Bld) [#/Vol] 9.4 10*3/uL 4.5-11.0 [facility] Creatine kinase [Enzymatic a ctivity/volume] in Serum or PlasmaOrdered By: Myron Villarreal on 10-25-2021 CK [Catalytic activity/Vol] 64 U/L 22-269 [facility] Creatinine and Glomerular fi ltration rate.predicted panel (S/P/Bld)Ordered By: Myron Villarreal on 10-25-2021 Creatinine [Mass/Vol] 1.02 mg/dL 0.44-1.03 [facility] Eosinophils Auto (Bld) [#/Vo l]Ordered By: Myron Villarreal on 10-25-2021 Eosinophils (Bld) [#/Vol] 0.1 10*3/uL 0.0-0.45 [facility] Eosinophils/100 WBC Auto (Bl d)Ordered By: Myron Villarreal on 10-25-2021 Eosinophils/100 WBC (Bld) 1.0 % . [facility] Erythrocyte distribution wid th Auto (RBC) [Ratio]Ordered By: Myron Villarreal on 10-25-2021 Erythrocyte distribution width (RBC) [Ratio] 13.0 % 11.9-15.3 [facility] Estimated glomerular filtrat ion rate (GFR) non- AmericanOrdered By: Myron Villarreal on 10-25-2021 GFR/1.73 sq M.predicted among non-blacks MDRD (S/P/Bld) [Vol rate/Area] 51 mL/Min [facility] Globulin Calc (S) [Mass/Vol] Ordered By: Myron Villarreal on 10-25-2021 Globulin (S) [Mass/Vol] 3.7 g/dL [facility] Glucose Glucometer (BldC) [M ass/Vol]Ordered By: Guillermo Sanders on 10-25-2021 Glucose [Mass/Vol] 143 mg/dL [facility] Comment on above: Random Glucose Refer ence Range is dependent on time and content of last meal. Glucose of more than 200 mg/dL in a nonstressed, ambulatory subject supports the diagnosis of Diabetes Mellitus. Hematocrit Auto (Bld) [Volum e fraction]Ordered By: Myron Villarreal on 10-25-2021 Hematocrit (Bld) [Volume fraction] 47.4 % 34.0-46.4 [facility] Laboratory - CoagulationOrde red By: Myron Villarreal on 10-25-2021 PT Coag (PPP) [Time] 29.8 s 9.0-12.9 [facility] Laboratory - Hematology and Cell countsOrdered By: yMron Villarreal on 10-25-2021 Nucleated RBC/100 WBC (Bld) [Ratio] 0.0 % 0-0.5 [facility] Lymphocytes Auto (Bld) [#/Vo l]Ordered By: Myron Villarreal on 10-25-2021 Lymphocytes (Bld) [#/Vol] 1.6 10*3/uL 1.00-4.8 [facility] Lymphocytes/100 WBC Auto (Bl d)Ordered By: Myron Villarreal on 10-25-2021 Lymphocytes/100 WBC (Bld) 16.9 % . [facility] MCH Auto (RBC) [Entitic mass ]Ordered By: Myron Villarreal on 10-25-2021 MCH (RBC) [Entitic mass] 32.1 pg 24.7-34.3 [facility] MCHC Auto (RBC) [Mass/Vol]Or dered By: Myron Villarreal on 10-25-2021 MCHC (RBC) [Mass/Vol] 33.4 g/dL 32.0-35.0 [facility] MCV Auto (RBC) [Entitic vol] Ordered By: Myron Villarreal on 10-25-2021 MCV (RBC) [Entitic vol] 96.1 fL 80-100 [facility] Monocytes Auto (Bld) [#/Vol] Ordered By: Myron Villarreal on 10-25-2021 Monocytes (Bld) [#/Vol] 1.1 10*3/uL 0.0-0.8 [facility] Monocytes/100 WBC Auto (Bld) Ordered By: Myron Villarreal on 10-25-2021 Monocytes/100 WBC (Bld) 11.4 % . [facility] Neutrophils Auto (Bld) [#/Vo l]Ordered By: Myron Villarreal on 10-25-2021 Neutrophils (Bld) [#/Vol] 6.5 10*3/uL 1.8-7.7 [facility] Neutrophils/100 WBC Auto (Bl d)Ordered By: Myron Villarreal on 10-25-2021 Neutrophils/100 WBC (Bld) 69.8 % . [facility] No Panel InformationOrdered By: Myron Villarreal on 10-25-2021 Estimated GFR () > 60 mL/Min [facility] Comment on above: GFR estimated refere nce range: According to KDOQI guidelines, <60 ml/min/1.73m2 is sufficient to diagnose a patient with chronic kidney disease. Pharmacy Creatinine Clearance (Chem N/A [facility] Platelet mean volume Auto (B ld) [Entitic vol]Ordered By: Myron Villarreal on 10-25-2021 Platelet mean volume (Bld) [Entitic vol] 8.6 fL 6.3-10.7 [facility] Platelet poor plasma interna tional normalized ratio (INR) by coagulation assay (relatOrdered By: Myron Villarreal on 10-25-2021 INR Coag (PPP) [Relative time] 2.6 {INR} [facility] Comment on above: INR Therapeutic Rang [...] Platelets Auto (Bld) [#/Vol] Ordered By: Myron Villrareal on 10-25-2021 Platelets (Bld) [#/Vol] 226 10*3/uL 150-450 [facility] Protein [Mass/volume] in Ser um or PlasmaOrdered By: Myron Villarreal on 10-25-2021 Protein [Mass/Vol] 7.8 g/dL 6.1-7.9 [facility] RBC Auto (Bld) [#/Vol]Ordere d By: Myron Villarreal on 10-25-2021 RBC (Bld) [#/Vol] 4.93 10*6/uL 3.60-5.00 [facility] Serum or plasma alanine owusu otransferase measurement without P-5'-P (enzymatic activiOrdered By: Myron Villarreal on 10-25-2021 ALT No additional P-5'-P [Catalytic activity/Vol] 19 U/L 10-60 [facility] Serum or plasma albumin/glob ulin mass ratioOrdered By: Myron Villarreal on 10-25-2021 Albumin/Globulin [Mass ratio] 1.1 {ratio} [facility] Serum or plasma alkaline dulce maria sphatase measurement (enzymatic activity/volume)Ordered By: Myron Villarreal on 10-25-2021 ALP [Catalytic activity/Vol] 69 U/L 32-92 [facility] Serum or plasma aspartate am inotransferase measurement (enzymatic activity/volume)Ordered By: Myron Villarreal on 10-25-2021 AST [Catalytic activity/Vol] 28 U/L 10-42 [facility] Serum or plasma calcium silva urement (mass/volume)Ordered By: Myron Villarreal on 10-25-2021 Calcium [Mass/Vol] 10.0 mg/dL 8.2-10.2 [facility] Serum or plasma chloride hector surement (moles/volume)Ordered By: Myron Villarreal on 10-25-2021 Chloride [Moles/Vol] 96 mmol/L 95-114 [facility] Serum or plasma creatine kin ase MB (CKMB)/total creatine kinase (CK) ratio by calculaOrdered By: Myron Villarreal on 10-25-2021 CK.MB Calc [Catalytic fraction] 3.9 % 0.00-2.50 [facility] Serum or plasma creatine kin ase MB measurement (mass/volume)Ordered By: Myron Villarreal on 10-25-2021 CK.MB [Mass/Vol] 2.5 ng/mL 0.6-6.3 [facility] Serum or plasma glucose silva urement (mass/volume)Ordered By: Myron Villarreal on 10-25-2021 Glucose [Mass/Vol] 120 mg/dL 70-100 [facility] Comment on above: ADA recommended refe rence [...] on 10-25-2021 Potassium [Moles/Vol] 4.3 mmol/L 3.5-5.1 [facility] Serum or plasma sodium measu rement (moles/volume)Ordered By: Myron Villarreal on 10-25-2021 Sodium [Moles/Vol] 134 mmol/L 136-146 [facility] Serum or plasma total biliru bin measurement (mass/volume)Ordered By: Myron Villarreal on 10-25-2021 Bilirubin [Mass/Vol] 0.7 mg/dL 0.3-1.2 [facility] Serum or plasma total carbon dioxide measurement (moles/volume)Ordered By: Myron Villarreal on 10-25-2021 CO2 [Moles/Vol] 24.8 mmol/L 22.0-30.0 [facility] Serum or plasma urea nitroge n measurement (mass/volume)Ordered By: Myron Villarreal on 10-25-2021 Urea nitrogen [Mass/Vol] 19 mg/dL 12-30 [facility] Troponin I.cardiac [Mass/vol ume] in Serum or Plasma by High sensitivity methodOrdered By: Myron Villarreal on 10-25-2021 Troponin I.cardiac High sensitivity method [Mass/Vol] 16 pg/mL 0- [facility] Urine culture routineOrdered By: Daily Hart on 10-23-2021 Bacteria identified Cx Nom (U) Enterococcus faecalis [facility] Albumin [Mass/volume] in Ser um or PlasmaOrdered By: Daily Hart on 10-21-2021 Albumin [Mass/Vol] 4.2 g/dL 3.2-5.5 [facility] Automated erythrocytes count in urine sediment (number/area)Ordered By: Daily Hart on 10-21-2021 RBC Auto (Urine sed) [#/Area] 0-1 [HPF] 0-4 [facility] Automated leukocytes count i n urine sediment (number/area)Ordered By: Daily Hart on 10-21-2021 WBC Auto (Urine sed) [#/Area] 50-100 [HPF] 0-4 [facility] Basophils Auto (Bld) [#/Vol] Ordered By: Daily Hart on 10-21-2021 Basophils (Bld) [#/Vol] 0.1 10*3/uL 0.0-0.2 [facility] Basophils/100 WBC Auto (Bld) Ordered By: Daily Hart on 10-21-2021 Basophils/100 WBC (Bld) 1.0 % . [facility] Bilirubin Test strip Ql (U)O rdered By: Daily Hart on 10-21-2021 Bilirubin Ql (U) Negative Negative [facility] Blood hemoglobin measurement (mass/volume)Ordered By: Daily Hart on 10-21-2021 Hemoglobin (Bld) [Mass/Vol] 16.0 g/dL 11.8-15.4 [facility] Blood leukocytes automated c ount (number/volume)Ordered By: Daily Hart on 10-21-2021 WBC (Bld) [#/Vol] 6.8 10*3/uL 4.5-11.0 [facility] Color Auto (U)Ordered By: Jacqueline Hart on 10-21-2021 Color (U) Yellow Yellow [facility] Creatinine and Glomerular fi ltration rate.predicted panel (S/P/Bld)Ordered By: Daily Hart on 10-21-2021 Creatinine [Mass/Vol] 0.96 mg/dL 0.44-1.03 [facility] Digoxin [Mass/volume] in Ser um or PlasmaOrdered By: Daily Hart on 10-21-2021 Digoxin [Mass/Vol] 0.6 ng/mL 0.9-2.0 [facility] Comment on above: Last dose: - Eosinophils Auto (Bld) [#/Vo l]Ordered By: Daily Hart on 10-21-2021 Eosinophils (Bld) [#/Vol] 0.0 10*3/uL 0.0-0.45 [facility] Eosinophils/100 WBC Auto (Bl d)Ordered By: Daily Hart on 10-21-2021 Eosinophils/100 WBC (Bld) 0.7 % . [facility] Erythrocyte distribution wid th Auto (RBC) [Ratio]Ordered By: Daily Hart on 10-21-2021 Erythrocyte distribution width (RBC) [Ratio] 13.0 % 11.9-15.3 [facility] Estimated glomerular filtrat ion rate (GFR) non- AmericanOrdered By: Daily Hart on 10-21-2021 GFR/1.73 sq M.predicted among non-blacks MDRD (S/P/Bld) [Vol rate/Area] 55 mL/Min [facility] Globulin Calc (S) [Mass/Vol] Ordered By: Daily Hart on 10-21-2021 Globulin (S) [Mass/Vol] 3.9 g/dL [facility] Hematocrit Auto (Bld) [Volum e fraction]Ordered By: Daily Hart on 10-21-2021 Hematocrit (Bld) [Volume fraction] 47.9 % 34.0-46.4 [facility] Ketones Auto test strip (U) [Mass/Vol]Ordered By: Daily Hart on 10-21-2021 Ketones (U) [Mass/Vol] Negative [facility] - [facility] and C hemistry - challengeOrdered By: Daily Hart on 10-21-2021 Natriuretic peptide B (Bld) [Mass/Vol] 76.0 pg/mL 5-100 [facility] Laboratory - Hematology and Cell countsOrdered By: Daily Hart on 10-21-2021 Nucleated RBC/100 WBC (Bld) [Ratio] 0.0 % 0-0.5 [facility] - UrinalysisOrder ed By: Daily Hart on 10-21-2021 Hyaline casts LM Ql (Urine sed) 0-8 [LPF] 0-8 [facility] Lymphocytes Auto (Bld) [#/Vo l]Ordered By: Daily Hart on 10-21-2021 Lymphocytes (Bld) [#/Vol] 1.6 10*3/uL 1.00-4.8 [facility] Lymphocytes/100 WBC Auto (Bl d)Ordered By: Daily Hart on 10-21-2021 Lymphocytes/100 WBC (Bld) 23.4 % . [facility] MCH Auto (RBC) [Entitic mass ]Ordered By: Daily Hart on 10-21-2021 MCH (RBC) [Entitic mass] 32.3 pg 24.7-34.3 [facility] MCHC Auto (RBC) [Mass/Vol]Or dered By: Daily Sharmaimore on 10-21-2021 MCHC (RBC) [Mass/Vol] 33.4 g/dL 32.0-35.0 [facility] MCV Auto (RBC) [Entitic vol] Ordered By: Daily Sharmaimore on 10-21-2021 MCV (RBC) [Entitic vol] 96.8 fL 80-100 [facility] Monocytes Auto (Bld) [#/Vol] Ordered By: Daily Bullimore on 10-21-2021 Monocytes (Bld) [#/Vol] 0.5 10*3/uL 0.0-0.8 [facility] Monocytes/100 WBC Auto (Bld) Ordered By: Dailystanislav Sharmaimore on 10-21-2021 Monocytes/100 WBC (Bld) 7.5 % . [facility] Neutrophils Auto (Bld) [#/Vo l]Ordered By: Dailystanislav Choiore on 10-21-2021 Neutrophils (Bld) [#/Vol] 4.6 10*3/uL 1.8-7.7 [facility] Neutrophils/100 WBC Auto (Bl d)Ordered By: Dailystanislav Sharmaimore on 10-21-2021 Neutrophils/100 WBC (Bld) 67.4 % . [facility] Nitrite Test strip Ql (U)Ord ered By: Daily Hart on 10-21-2021 Nitrite Ql (U) Negative Negative [facility] No Panel InformationOrdered By: Dailystanislav Hart on 10-21-2021 Estimated GFR () > 60 mL/Min [facility] Comment on above: GFR estimated refere nce range: According to KDOQI guidelines, <60 ml/min/1.73m2 is sufficient to diagnose a patient with chronic kidney disease. Pharmacy Creatinine Clearance (Chem 41.83 [facility] Platelet mean volume Auto (B ld) [Entitic vol]Ordered By: Daily Sharmaimteri on 10-21-2021 Platelet mean volume (Bld) [Entitic vol] 8.7 fL 6.3-10.7 [facility] Platelets Auto (Bld) [#/Vol] Ordered By: Daily Sharmaimore on 10-21-2021 Platelets (Bld) [#/Vol] 230 10*3/uL 150-450 [facility] Protein Auto test strip (U) [Mass/Vol]Ordered By: Daily Hart on 10-21-2021 Protein (U) [Mass/Vol] Negative Negative [facility] Protein [Mass/volume] in Ser um or PlasmaOrdered By: Daily Hart on 10-21-2021 Protein [Mass/Vol] 8.1 g/dL 6.1-7.9 [facility] RBC Auto (Bld) [#/Vol]Ordere d By: Daily Hart on 10-21-2021 RBC (Bld) [#/Vol] 4.95 10*6/uL 3.60-5.00 [facility] Serum or plasma alanine owusu otransferase measurement without P-5'-P (enzymatic activiOrdered By: Daily Hart on 10-21-2021 ALT No additional P-5'-P [Catalytic activity/Vol] 19 U/L 10-60 [facility] Serum or plasma albumin/glob ulin mass ratioOrdered By: Daily Sharmateri on 10-21-2021 Albumin/Globulin [Mass ratio] 1.1 {ratio} [facility] Serum or plasma alkaline dulce maria sphatase measurement (enzymatic activity/volume)Ordered By: Daily Hart on 10-21-2021 ALP [Catalytic activity/Vol] 76 U/L 32-92 [facility] Serum or plasma aspartate am inotransferase measurement (enzymatic activity/volume)Ordered By: Daily Hart on 10-21-2021 AST [Catalytic activity/Vol] 27 U/L 10-42 [facility] Serum or plasma calcium silva urement (mass/volume)Ordered By: Daily Hart on 10-21-2021 Calcium [Mass/Vol] 9.6 mg/dL 8.2-10.2 [facility] Serum or plasma chloride hector surement (moles/volume)Ordered By: Daily Hart on 10-21-2021 Chloride [Moles/Vol] 98 mmol/L 95-114 [facility] Serum or plasma glucose silva urement (mass/volume)Ordered By: Daily Hart on 10-21-2021 Glucose [Mass/Vol] 120 mg/dL 70-100 [facility] Comment on above: ADA recommended refe rence [...] or plasma potassium me asurement (moles/volume)Ordered By: [facility] on 10-21-2021 Potassium [Moles/Vol] 3.9 mmol/L 3.5-5.1 [facility] Serum or plasma sodium measu rement (moles/volume)Ordered By: Daily [facility] on 10-21-2021 Sodium [Moles/Vol] 138 mmol/L 136-146 [facility] Serum or plasma total biliru bin measurement (mass/volume)Ordered By: [facility] on 10-21-2021 Bilirubin [Mass/Vol] 0.6 mg/dL 0.3-1.2 [facility] Serum or plasma total carbon dioxide measurement (moles/volume)Ordered By: Daily [facility] on 10-21-2021 CO2 [Moles/Vol] 29.8 mmol/L 22.0-30.0 [facility] Serum or plasma urea nitroge n measurement (mass/volume)Ordered By: Daily [facility] 10-21-2021 Urea nitrogen [Mass/Vol] 22 mg/dL 9-23 [facility] Specific gravity Auto test s trip (U) [Rel density]Ordered By: [facility] on 10-21-2021 Specific gravity (U) [Rel density] 1.006 1.001-1.03 0 [facility] Squamous epithelial cells de tection in urine sediment by light microscopyOrdered By: Daily Hart on 10-21-2021 Epithelial cells.squamous LM Ql (Urine sed) None seen [HPF] 0-2 [facility] Troponin I.cardiac [Mass/vol ume] in Serum or Plasma by High sensitivity methodOrdered By: Daily Hart on 10-21-2021 Troponin I.cardiac High sensitivity method [Mass/Vol] 16 pg/mL 0- [facility] Urine bacteria detection by automated methodOrdered By: Daily Hart on 10-21-2021 Bacteria Auto Ql (U) None seen None Seen [facility] Urine clarity by refractomet ry automatedOrdered By: Daily Hart on 10-21-2021 Clarity Refractometry automated (U) Clear Clear [facility] Urine glucose measurement by automated test strip (mass/volume)Ordered By: Daily Hart on 10-21-2021 Glucose Auto test strip (U) [Mass/Vol] Normal mg/dL Normal [facility] Urine hemoglobin detection b y automated test stripOrdered By: Daily Hart on 10-21-2021 Hemoglobin Auto test strip Ql (U) Negative Negative [facility] Urine leukocyte esterase det ection by automated test stripOrdered By: Daily Hart on 10-21-2021 Leukocyte esterase Auto test strip Ql (U) 4+ Negative [facility] Urobilinogen Auto test strip (U) [Mass/Vol]Ordered By: Daily Hart on 10-21-2021 Urobilinogen (U) [Mass/Vol] Normal mg/dL Normal [facility] pH Auto test strip (U)Ordere d By: Daily Hart on 10-21-2021 pH (U) 5.5 [pH] 5.0-9.0 [facility] Covid-19 PCR (CVDTB)on 10-07 SARS-CoV-2 (COVID-19) RNA CIERA+probe Ql (Unsp spec) Not detected Normal NOT DETECTED [facility] Comment on above: Result Comment: This test is not yet approved or cleared by the [place] FDA. When there are no FDA-approved or cleared tests available, and other criteria are met, FDA can make tests available under an emergency access mechanism called an Emergency Use Authorization (EUA). The EUA for this test is supported by the Hotel Room Attendant of Health and Human Service's (HHS's) declaration [...] consistent with SARS-CoV-2. Performed By: #### C VDTBH #### [facility] [address] [place] [address] Dr. Parth Wilson INFLUENZA A AND B AGon 10-20 INFLUENZA A AG Negative Normal NEGATIVE SEE COMMENT [facility] Comment on above: Performed By: #### I NFLUAB #### [facility] [address] [place] [address] Dr. Parth Wilson INFLUENZA B AG Negative Normal NEGATIVE SEE COMMENT [facility] Comment on above: Performed By: #### I NFLUAB #### [facility] [address] [place] [address] Dr. Parth Wilson INTERNAL CONTROLS Within Normal Limits Normal Wi thin Normal Limits [facility] Comment on above: Performed By: #### I NFLUAB #### [facility] [address] [place] [address] Dr. Parth Wilson Cardiovasc Arrhythmia Result son 09-28-2021 Cardiovasc Arrhythmia Results Reason For Visit Event Monitor: ERIN is here for the application of a 30 day event monitor in office., Diagnosis: syncope and palps Ordering Physician: Dr. Olivarez Enrollment sent to: [facility] Monitor number [id number] applied. Patient will be returning SEFERINO by [...] rhythm. Future Appointments Date/TimeProviderSpecialty Site 11/28/2021 08:20 FADUMOAkhil Gonzalez, [id number] [facility] 2 [address] 250 DO Signatures Electronically signed by : Akhil Olivarez MD; Oct 26 2021 10:03AM EST (Author) Normal [facility] Office Visit (Cardiology)on 09-21-2021 Follow-up visit Diagnoses/Problems [...] By signing my name below, I, Adrianne Brandjennifer ROLLINS ,Scribe, attest that this documentation has been [...] TabletTAKE 1 TABLET DAILY DIRECTED. Managed at [facility]. Allergies Medication Motrin TABS Allergy; Hives;; [...] Signs Recorded: 21Sep2021 02:43PM Heart Rate66, Apical Zxgeyupk195, RUE, Sitting Ahtrihhux25, RUE, Sitting Height5 ft 2 in Cdujor307 lb BMI Pzmubekfab58.84 kg/m2 BSA Calculated1.85 Tobacco Useb) No PHQ-2 #1. Over the last 2 weeks have you felt down, depressed or hopeless? (If yes, answer PHQ-9 below)No PHQ-2 #2. Over the last 2 weeks have you felt little interest or pleasure in doing things? (If yes, answer PHQ-9 below)No Fall Screeningb) One or more fall (more content not included)... Normal [facility] Tobacco Screening.on 022 Adult depression screening assessment No [facility] Architectural Daily 250 DO Work Phone: Fall risk assessment b) One or more fall s in the last year [facility] Architectural Daily 250 DO Work Phone: Tobacco use status CPHS b) [facility] Daily 250 DO Work Phone: No Panel Informationon 06-30 9.2\S\9.2 Normal 8.2-10.2 [facility] MedRunner 600 DO Work Phone: 28.3\S\28.3 Normal 22.0-30.0 [facility] Adiel spicer 600 DO Work Phone: 99\S\99 Normal 95-114 [facility] Adiel spicer 600 DO Work Phone: [phone] 4.6\S\4.6 Normal 3.5-5.1 [facility] Adiel spicer 600 DO Work Phone: 138\S\138 Normal 136-146 [facility] Adiel spicer 600 DO Work Phone: > 60 Normal [facility] Adiel spicer 600 DO Work Phone: Comment on above: GFR estimated refere nce range: According to KDOQI guidelines, <60 ml/min/1.73m2 is sufficient to diagnose a patient with chronic kidney disease. 52\S\52 Normal [facility] Adiel Menard DO Work Phone: 1.00\S\1.00 Normal 0.44-1.03 [facility] Adiel spicer 600 DO Work Phone: 22\S\22 Normal 9-23 [facility] Adiel spicer 600 DO Work Phone: 91\S\91 Normal 70-100 [facility] Adiel spicer 600 DO Work Phone: Comment on above: Random Glucose Refer ence Range is dependent on time and content of last meal. Glucose of more than 200 mg/dL in a nonstressed, ambulatory subject supports the diagnosis of Diabetes Mellitus. ADA recommended reference range 24\S\24 Normal 10-42 [facility] Adiel spicer 600 DO Work Phone: [phone] 2.98\S\2.98 Normal 0.45-5.33 [facility] Adiel spicer 600 DO Work Phone: [phone] Comment on above: PERFORMED BY:[place] [address] [place] [place], [place] [id number] MEDICAL DIRECTORGIULIA VALERIO M.D. Radiologyon 06-30-2021 XR Chest 2 Views Normal [facility]Nor[facility] l[facility] 600 DO Work Phone: Tobacco Screening.on 022 Tobacco use status CPHS b) No -[facility]-Sandu ayde 250 DO Work Phone: Affirm DNA Panelon 7 Albina DNA Negative Normal Negative [facility] Comment on above: Result Comment: The AffirmVPII [...] organism are common. Performed By: #### C [id number] ####[place] [id number] Gardnerella DNA Positive Abnormal Negative [facility] Comment on above: Performed By: #### C [id number] ####[place] [id number] [place] [id number] Trichomonas DNA Negative Normal Negative [facility] Comment on above: Performed By: #### C [id number] ####[place] [id number] Ambulatory Patient Education on 12-22-2016 Ambulatory Patient Education Patient Education MaterialsName: Jesenia Canales Current Date: 12/22/2016 14:33:40 [place] 1934 following sheet(s) are the Patient Education Leaflets for Jesenia Canales JOb/GynPelvic Organ Prolapse: Surgery for CystoceleCystocele occurs when [...] the pelvic organ or organs occurring again? [id number] [employer]. [address] [place] [address]. All rights reserved. This information is not [...] the pelvic organ or organs occurring again? [id number] [employer]. [address] [place] [address]. All rights reserved. This information is not [...] you'll meet with the anesthesiologist or nurse yard operator. He or she can tell you what [...] nearby pelvic structures? Trouble urinating? Urinary urgency? [id number] [facility]. [address] [place] [address], [place] [address]. All rights reserved. This information is not intended as a substitute for professional medical care. Always follow your healthcare professional's instructions. Normal [facility] Gynecology Office/Clinic Not larry 12-22-2016 Gynecology Office/Clinic Note Chief Complaint ConsultationHistory of Present Illness Abnormal vaginal discharge: Yes Pelvic pain: No Spotting: No Vaginal itch/burning/odor: Yes Additional HPI details: 81y/o prolapse. Pt has a pessary. States causes infection. She sees ALUMNAE SECRETARY q 1 months. She want to only [...] Additional Vitals Body Mass Index Measured: 35.59 kg/p0Sttltjlhac/Plan Cystocele Ordered: 40615 [facility] OFFICE OP VISIT NEW [facility]L 2 Clinic Rectocele Uterine prolapse Attempting a cube pessary - will call Ashely Villarreal NP and see if she can followup with her in 1 wk - have given the patient info on surgery. Patient is very leery regarding surgery due to the anesthesia and she does have cardiac issues - multiple stents Ordered: [id number] [facility] OFFICE OP VISIT NEW LVL 2 Clinic [...] and Father. Skin cancer: Mother.Electronically signed by T Justin gillespie DO 12/22/16 17:35 EDT Normal [facility] Vital Signs Date Time Vital Sign Value Performing Clinician Facility 02-26-2023 13:03-0500 Body height 157.5 cm Mickey James APRNConatix Work Phone: [facility] 02-26-2023 13:03-0500 Body mass index (BMI) [Ratio] 33.11 kg/m2 Mickey James APRNConatix Work Phone: [facility] 02-26-2023 13:03-0500 Body weight 82.1 kg Mickey James APRNConatix Work Phone: [facility] 02-26-2023 13:03-0500 Diastolic blood pressure 74 mm[Hg] Mickey James RIB MATCHER AND FITTER-CELLAR PUMPER Work Phone: [facility] 02-26-2023 13:03-0500 Heart rate 60 /min Mickey James RIB MATCHER AND FITTER-CELLAR PUMPER Work Phone: [facility] 02-26-2023 13:03-0500 Systolic blood pressure 138 mm[Hg] Mickey James RIB MATCHER AND FITTER-CELLAR PUMPER Work Phone: [facility] 12-13-2022 10:03-0400 Body temperature 97.11 [degF] Shweta Sol MD Work Phone: [place] 12-13-2022 10:03-0400 Diastolic blood pressure 65 mm[Hg] Shweta Sol MD Work Phone: [place] 12-13-2022 10:03-0400 Heart rate 60 /min Shweta Sol MD Work Phone: [place] 12-13-2022 10:03-0400 Systolic blood pressure 165 mm[Hg] Shweta Sol MD Work Phone: [place] 11-29-2022 14:52-0400 Body height 157.48 cm Los M Hoy Work Phone: [facility] 250 DO Work Phone: 11-29-2022 14:52-0400 Body mass index (BMI) [Ratio] Medical Reason Not Done Los M Hoy Work Phone: [facility] 250 DO Work Phone: 11-29-2022 14:52-0400 Body temperature 97.7 [degF] Los M Hoy Work Phone: [facility] 250 DO Work Phone: 11-29-2022 14:52-0400 Diastolic blood pressure 84 mm[Hg] Los M Hoy Work Phone: [facility] 250 DO Work Phone: 11-29-2022 14:52-0400 Heart rate 66 /min Los Roger Neena Work Phone: [facility] 250 DO Work Phone: 11-29-2022 14:52-0400 Systolic blood pressure 130 mm[Hg] Losgovind Chaudhary Work Phone: [facility] 250 DO Work Phone: 11-24-2022 16:00-0400 Body temperature 97.8 [degF] MD Los Chaudhary Work Phone: [facility] 11-24-2022 16:00-0400 Diastolic blood pressure 73 mm[Hg] MD Los Chaudhary Work Phone: [facility] 11-24-2022 16:00-0400 Heart rate 60 /min MD Los Chaudhary Work Phone: [facility] 11-24-2022 16:00-0400 Respiratory rate 16 /min MD Los Chaudhary Work Phone: [facility] 11-24-2022 16:00-0400 SaO2% (BldA) [Mass fraction] 99 % MD Los Chaudhary Work Phone: [facility] 11-24-2022 16:00-0400 Systolic blood pressure 142 mm[Hg] MD Los Chaudhary Work Phone: [facility] 11-24-2022 06:44-0400 Body weight 88.4 kg MD Los Chaudhary Work Phone: [facility] 11-22-2022 11:41-0400 Inhaled oxygen flow rate 6 L/min MD Los Chaudhary Work Phone: [facility] 11-22-2022 10:22-0400 Body height 157.48 cm MD Los Chaudhary Work Phone: [facility] 11-22-2022 10:22-0400 Body mass index (BMI) [Ratio] 36.5 kg/m2 MD Los Chaudhary Work Phone: [facility] 11-17-2022 21:59-0400 Diastolic blood pressure 77 mm[Hg] MD Los Chaudhary Work Phone: [facility] 11-17-2022 21:59-0400 Heart rate 67 /min MD Los Chaudhary Work Phone: [facility] 11-17-2022 21:59-0400 Systolic blood pressure 190 mm[Hg] MD Los Chaudhary Work Phone: [facility] 11-17-2022 21:18-0400 Body temperature 97.7 [degF] MD Los Chaudhary Work Phone: [facility] 11-17-2022 21:18-0400 Respiratory rate 16 /min MD Los Chaudhary Work Phone: [facility] 11-17-2022 21:18-0400 SaO2% (BldA) [Mass fraction] 98 % MD Los Chaudhary Work Phone: [facility] 11-17-2022 18:03-0400 Body height 157.48 cm MD Los Chaudhary Work Phone: [facility] 11-17-2022 18:03-0400 Body weight 81.64 kg MD Los Chaudhary Work Phone: [facility] 10-30-2022 11:29-0400 Body height 157.48 cm [facility] Work Phone: 10-30-2022 11:29-0400 Body mass index (BMI) [Ratio] 34.57 kg/m2 Los Chaudhary [facility] Work Phone: 10-30-2022 11:29-0400 Body surface area Derived from formula 1.87 m2 Los Chaudhary Work Phone: [facility] 600 DO Work Phone: 10-30-2022 11:29-0400 Body weight 85.73 kg Los Duran Hoy Work Phone: [facility] 600 DO Work Phone: 10-30-2022 11:29-0400 Diastolic blood pressure 68 mm[Hg] Los Duran Hoy Work Phone: [facility] 600 DO Work Phone: 10-30-2022 11:29-0400 Heart rate 60 /min Los Roger Hoy Work Phone: [facility] 600 DO Work Phone: 10-30-2022 11:29-0400 Systolic blood pressure 170 mm[Hg] Los Duran Hoy Work Phone: [facility] 600 DO Work Phone: 09-25-2022 18:30-0400 Diastolic blood pressure 82 mm[Hg] LINUX ADMIN-C Summer Yaw Work Phone: [facility] 09-25-2022 18:30-0400 Heart rate 57 /min LINUX ADMIN-C Summer Yaw Work Phone: [facility] 09-25-2022 18:30-0400 Respiratory rate 17 /min LINUX ADMIN-C Summer Yaw Work Phone: [facility] 09-25-2022 18:30-0400 SaO2% (BldA) [Mass fraction] 99 % LINUX ADMIN-C Summer Yaw Work Phone: [facility] 09-25-2022 18:30-0400 Systolic blood pressure 132 mm[Hg] LINUX ADMIN-C Summer Yaw Work Phone: [facility] 09-25-2022 13:00-0400 Body temperature 98 [degF] LINUX ADMIN-C Summer Yaw Work Phone: [facility] 09-25-2022 08:58-0400 Body height 157.48 cm LINUX ADMIN-C Summer Tidwell Work Phone: [facility] 09-25-2022 08:58-0400 Body weight 84 kg LINUX ADMIN-C Summer Tidwell Work Phone: [facility] 09-21-2022 14:11-0400 Body height 157.48 cm Los M Hoy Work Phone: [facility] 250 DO Work Phone: 09-21-2022 14:11-0400 Body mass index (BMI) [Ratio] 34.02 kg/m2 Los M Hoy Work Phone: [facility] 250 DO Work Phone: 09-21-2022 14:11-0400 Body surface area Derived from formula 1.85 m2 Los M Hoy Work Phone: [facility] 250 DO Work Phone: 09-21-2022 14:11-0400 Body weight 84.37 kg Los M Hoy Work Phone: [facility] 250 DO Work Phone: 09-21-2022 14:11-0400 Diastolic blood pressure 68 mm[Hg] Los M Hoy Work Phone: [facility] 250 DO Work Phone: 09-21-2022 14:11-0400 Heart rate 56 /min Los M Hoy Work Phone: [facility] 250 DO Work Phone: 09-21-2022 14:11-0400 Systolic blood pressure 146 mm[Hg] Los M Hoy Work Phone: [facility] 250 DO Work Phone: 09-01-2022 14:07-0400 Body height 157.48 cm Los M Hoy Work Phone: [facility] 250 DO Work Phone: 09-01-2022 14:07-0400 Body mass index (BMI) [Ratio] 32.74 kg/m2 Los M Hoy Work Phone: [facility] 250 DO Work Phone: 09-01-2022 14:07-0400 Body surface area Derived from formula 1.82 m2 Los M Hoy Work Phone: [facility] 250 DO Work Phone: 09-01-2022 14:07-0400 Body weight 81.19 kg Los M Hoy Work Phone: [facility] 250 DO Work Phone: 09-01-2022 14:07-0400 Diastolic blood pressure 60 mm[Hg] Los M Hoy Work Phone: [facility] 250 DO Work Phone: 09-01-2022 14:07-0400 Heart rate 54 /min Los M Hoy Work Phone: [facility] 250 DO Work Phone: 09-01-2022 14:07-0400 Systolic blood pressure 150 mm[Hg] Lso M Hoy Work Phone: [facility] 250 DO Work Phone: 08-02-2022 13:03-0400 Body height 157.48 cm Los M Hoy Work Phone: [facility] 250 DO Work Phone: 08-02-2022 13:03-0400 Body mass index (BMI) [Ratio] 33.47 kg/m2 Los M Hoy Work Phone: [facility] 250 DO Work Phone: 08-02-2022 13:03-0400 Body surface area Derived from formula 1.84 m2 Los M Hoy Work Phone: [facility] 250 DO Work Phone: 08-02-2022 13:03-0400 Body weight 83.01 kg Los M Hoy Work Phone: [facility] 250 DO Work Phone: 08-02-2022 13:03-0400 Diastolic blood pressure 58 mm[Hg] Los M Hoy Work Phone: [facility] 250 DO Work Phone: 08-02-2022 13:03-0400 Heart rate 56 /min Los M Hoy Work Phone: [facility] 250 DO Work Phone: 08-02-2022 13:03-0400 Systolic blood pressure 128 mm[Hg] Los M Hoy Work Phone: [facility] 250 DO Work Phone: 07-05-2022 09:29-0400 Body height 157.48 cm Los M Hoy Work Phone: [facility] 250 DO Work Phone: 07-05-2022 09:29-0400 Body mass index (BMI) [Ratio] 32.19 kg/m2 Los M Hoy Work Phone: [facility] 250 DO Work Phone: 07-05-2022 09:29-0400 Body surface area Derived from formula 1.81 m2 Los M Hoy Work Phone: [facility] DO Work Phone: 07-05-2022 09:29-0400 Body weight 79.83 kg Los M Hoy Work Phone: [facility] 250 DO Work Phone: 07-05-2022 09:29-0400 Diastolic blood pressure 60 mm[Hg] Los Roger Hoy Work Phone: [facility] 250 DO Work Phone: 07-05-2022 09:29-0400 Heart rate 61 /min Los M Hoy Work Phone: [facility] 250 DO Work Phone: 07-05-2022 09:29-0400 Systolic blood pressure 142 mm[Hg] Los M Hoy Work Phone: [facility] 250 DO Work Phone: 02-07-2022 10:11-0400 Body height 157.48 cm Summer S Yaw Work Phone: [facility] 250 DO Work Phone: 02-07-2022 10:11-0400 Body mass index (BMI) [Ratio] 33.84 kg/m2 Summer S Yaw Work Phone: [facility] 250 DO Work Phone: 02-07-2022 10:11-0400 Body surface area Derived from formula 1.85 m2 Summer S Yaw Work Phone: [facility] 250 DO Work Phone: 02-07-2022 10:11-0400 Body weight 83.92 kg Summer S Yaw Work Phone: [facility] 250 DO Work Phone: 02-07-2022 10:11-0400 Diastolic blood pressure 50 mm[Hg] Summer S Yaw Work Phone: [facility] 250 DO Work Phone: 02-07-2022 10:11-0400 Heart rate 62 /min Summer S Yaw Work Phone: [facility] 250 DO Work Phone: 02-07-2022 10:11-0400 Systolic blood pressure 104 mm[Hg] Summer S Yaw Work Phone: [facility] 250 DO Work Phone: 01-10-2022 20:30-0400 Diastolic blood pressure 63 mm[Hg] LINUX ADMIN-C Summer Yaw Work Phone: [facility] 01-10-2022 20:30-0400 Heart rate 69 /min LINUX ADMIN-C Summer Yaw Work Phone: [facility] 01-10-2022 20:30-0400 Respiratory rate 20 /min LINUX ADMIN-C Summer Yaw Work Phone: [facility] 01-10-2022 20:30-0400 SaO2% (BldA) [Mass fraction] 97 % LINUX ADMIN-C Summer Yaw Work Phone: [facility] 01-10-2022 20:30-0400 Systolic blood pressure 140 mm[Hg] LINUX ADMIN-C Summer Yaw Work Phone: [facility] 01-10-2022 14:51-0400 Body height 157.48 cm LINUX ADMIN-C Summer Yaw Work Phone: [facility] 01-10-2022 14:51-0400 Body temperature 97.7 [degF] LINUX ADMIN-C Summer Yaw Work Phone: [facility] 01-10-2022 14:51-0400 Body weight 78.75 kg LINUX ADMIN-C Summer Yaw Work Phone: [facility] 11-28-2021 08:51-0400 Diastolic blood pressure 60 mm[Hg] Summer S Yaw Work Phone: [facility] 250 DO Work Phone: 11-28-2021 08:51-0400 Systolic blood pressure 152 mm[Hg] Summer S Yaw Work Phone: [facility] 250 DO Work Phone: 11-28-2021 08:22-0400 Body height 157.48 cm Summer Al Yaw Work Phone: [facility] 250 DO Work Phone: 11-28-2021 08:22-0400 Body mass index (BMI) [Ratio] 31.64 kg/m2 Summer S Yaw Work Phone: [facility] 250 DO Work Phone: 11-28-2021 08:22-0400 Body surface area Derived from formula 1.8 m2 Summer S Yaw Work Phone: [facility] 250 DO Work Phone: 11-28-2021 08:22-0400 Body weight 78.47 kg Summer Garibaymer Work Phone: [facility] 250 DO Work Phone: 11-28-2021 08:22-0400 Diastolic blood pressure 78 mm[Hg] Summer S Yaw Work Phone: [facility] 250 DO Work Phone: 11-28-2021 08:22-0400 Heart rate 72 /min Summer S Yaw Work Phone: [facility] 250 DO Work Phone: 11-28-2021 08:22-0400 Systolic blood pressure 152 mm[Hg] Summer S Yaw Work Phone: [facility] 250 DO Work Phone: 10-29-2021 12:14-0400 Diastolic blood pressure 68 mm[Hg] LINUX ADMIN-C Summer Yaw Work Phone: [facility] 10-29-2021 12:14-0400 Heart rate 66 /min LINUX ADMIN-C Summer Yaw Work Phone: [facility] 10-29-2021 12:14-0400 Respiratory rate 18 /min LINUX ADMIN-C Summerbridget Garibaymer Work Phone: [facility] 10-29-2021 12:14-0400 SaO2% (BldA) [Mass fraction] 96 % LINUX ADMIN-C Summer Yaw Work Phone: [facility] 10-29-2021 12:14-0400 Systolic blood pressure 134 mm[Hg] LINUX ADMIN-C Summer Yaw Work Phone: [facility] 10-29-2021 03:21-0400 Body temperature 98 [degF] LINUX ADMIN-C Summer Yaw Work Phone: [facility] 10-28-2021 13:27-0400 0 1 Summer Garibaymer Work Phone: [facility] 250 DO Work Phone: Comment on above: [id number] 10-28-2021 08:00-0400 Body height 157.48 cm LINUX ADMIN-C Summerbridget Garibaymer Work Phone: [facility] 10-28-2021 08:00-0400 Body weight 124.2 kg LINUX ADMIN-C Summerbridget Garibaymer Work Phone: [facility] 10-28-2021 05:55-0400 Diastolic blood pressure 65 mm[Hg] LINUX ADMIN-C Summer Yaw Work Phone: [facility] 10-28-2021 05:55-0400 Heart rate 61 /min LINUX ADMIN-C Summer Yaw Work Phone: [facility] 10-28-2021 05:55-0400 Respiratory rate 18 /min LINUX ADMIN-C Summer Yaw Work Phone: [facility] 10-28-2021 05:55-0400 SaO2% (BldA) [Mass fraction] 96 % LINUX ADMIN-C Summer Yaw Work Phone: [facility] 10-28-2021 05:55-0400 Systolic blood pressure 148 mm[Hg] LINUX ADMIN-C Summer Yaw Work Phone: [facility] 10-28-2021 00:20-0400 Body height 157.48 cm LINUX ADMIN-C Summer Yaw Work Phone: [facility] 10-28-2021 00:20-0400 Body temperature 98 [degF] LINUX ADMIN-C Summer Yaw Work Phone: [facility] 10-28-2021 00:20-0400 Body weight 124.73 kg LINUX ADMIN-C Summer Yaw Work Phone: [facility] 10-25-2021 14:50-0400 Diastolic blood pressure 72 mm[Hg] LINUX ADMIN-C Summer Yaw Work Phone: [facility] 10-25-2021 14:50-0400 Heart rate 60 /min LINUX ADMIN-C Summer Yaw Work Phone: [facility] 10-25-2021 14:50-0400 Respiratory rate 18 /min LINUX ADMIN-C Summer Yaw Work Phone: [facility] 10-25-2021 14:50-0400 SaO2% (BldA) [Mass fraction] 95 % LINUX ADMIN-C Summer Yaw Work Phone: [facility] 10-25-2021 14:50-0400 Systolic blood pressure 168 mm[Hg] LINUX ADMIN-C Summre Yaw Work Phone: [facility] 10-21-2021 15:19-0400 Diastolic blood pressure 87 mm[Hg] LINUX ADMIN-C Summer Yaw Work Phone: [facility] 10-21-2021 15:19-0400 Heart rate 60 /min LINUX ADMIN-C Summer Yaw Work Phone: [facility] 10-21-2021 15:19-0400 Respiratory rate 18 /min LINUX ADMIN-C Summer Yaw Work Phone: [facility] 10-21-2021 15:19-0400 SaO2% (BldA) [Mass fraction] 98 % LINUX ADMIN-C Summer Garibaymer Work Phone: [facility] 10-21-2021 15:19-0400 Systolic blood pressure 194 mm[Hg] LINUX ADMIN-C Summer Yaw Work Phone: [facility] 10-21-2021 09:09-0400 Body height 157.48 cm LINUX ADMIN-C Summer Yaw Work Phone: [facility] 10-21-2021 09:09-0400 Body mass index (BMI) [Ratio] 34.4 kg/m2 LINUX ADMIN-C Summer Yaw Work Phone: [facility] 10-21-2021 09:09-0400 Body weight 85.3 kg LINUX ADMIN-C Summerbridget Garibaymer Work Phone: [facility] 10-21-2021 09:08-0400 Body temperature 97.1 [degF] LINUX ADMIN-C Summer Garibaymer Work Phone: [facility] 09-21-2021 14:43-0400 Body height 157.48 cm Summer S Yaw Work Phone: [facility] 250 DO Work Phone: 09-21-2021 14:43-0400 Body mass index (BMI) [Ratio] 33.84 kg/m2 Summer S Yaw Work Phone: [facility] 250 DO Work Phone: 09-21-2021 14:43-0400 Body surface area Derived from formula 1.85 m2 Summer S Yaw Work Phone: [facility] 250 DO Work Phone: 09-21-2021 14:43-0400 Body weight 83.92 kg Summer S Yaw Work Phone: [facility] 250 DO Work Phone: 09-21-2021 14:43-0400 Diastolic blood pressure 62 mm[Hg] Summer S Yaw Work Phone: [facility] 250 DO Work Phone: 09-21-2021 14:43-0400 Heart rate 66 /min Summer Al Yaw Work Phone: [facility] 250 DO Work Phone: 09-21-2021 14:43-0400 Systolic blood pressure 138 mm[Hg] Summer Al Yaw Work Phone: [facility] 250 DO Work Phone: 04-15-2021 13:39-0500 Body height 157.48 cm Summer Al Yaw Work Phone: [facility] 250 DO Work Phone: 04-15-2021 13:39-0500 Body mass index (BMI) [Ratio] 32.74 kg/m2 Summer Al Yaw Work Phone: [facility] 250 DO Work Phone: 04-15-2021 13:39-0500 Body surface area Derived from formula 1.82 m2 Summer Al Yaw Work Phone: [facility] 250 DO Work Phone: 04-15-2021 13:39-0500 Body weight 81.19 kg Summer Al Yaw Work Phone: [facility] 250 DO Work Phone: 04-15-2021 13:39-0500 Diastolic blood pressure 69 mm[Hg] Summer S Yaw Work Phone: [facility] 250 DO Work Phone: 04-15-2021 13:39-0500 Heart rate 73 /min Summer S Yaw Work Phone: [facility] 250 DO Work Phone: 04-15-2021 13:39-0500 Systolic blood pressure 129 mm[Hg] Summer S Yaw Work Phone: [facility] 250 DO Work Phone: Encounters Encounter Date Encounter Type Care Provider Facility Start: 05-22-2023 End: 05-22-2023 ambulatory Akhil Philip Mcintyreadore Facility:[facility] Start: 05-22-2023 End: 05-22-2023 ambulatory MD Los Chaudhary Work Phone: [facility] Work Phone: Start: 05-22-2023 End: 05-22-2023 Patient encounter procedure MD Los Chaudhary Work Phone: [facility]-Pacemaker Check Start: 05-21-2023 End: 05-21-2023 ambulatory LOS CHAUDHARY Facility:[facility] Start: 05-21-2023 End: 05-21-2023 Patient encounter procedure Rosalva Lemos APRN.CELLAR PUMPER Work Phone: Plastic Surgery Comment on above: Post-operative state (Primary Dx) Start: 05-15-2023 End: 05-15-2023 ambulatory Los Chaudhary Facility:[facility] Start: 05-15-2023 End: 05-15-2023 Patient encounter procedure MD Los Chaudhary Work Phone: [facility] [place] Work Phone: Start: 04-30-2023 End: 04-30-2023 ambulatory LOS CHAUDHARY Facility:[facility] Start: 04-24-2023 End: 04-24-2023 ambulatory SHWETA SOL Facility:[facility] Start: 03-30-2023 End: 03-31-2023 ambulatory SELF REFERRAL [place] [place]: 03-30-2023 End: 03-30-2023 Patient encounter procedure SELF REFERRAL [facility] Start: 03-29-2023 End: 03-29-2023 ambulatory SHWETA SOL Facility:[facility] Start: 03-29-2023 End: 03-29-2023 ambulatory SHWETA SOL Facility:[facility] Start: 03-29-2023 Encounter for other preprocedural examination SHWETA SOL [facility] Start: 03-21-2023 Telephone encounter Shweta argueta MD Work Phone: Plastic Surgery Comment on above: General Questions Start: 02-26-2023 End: 02-26-2023 ambulatory MICKEY JAMES [facility] Start: 02-26-2023 End: 02-26-2023 Office outpatient visit 15 minutes Mickey Sun [place] RIB MATCHER AND FITTER-CELLAR PUMPER Work Phone: [facility] Comment on above: Arteriosclerosis of coronary artery (Primary Dx); Paroxysmal atrial fibrillation (CMS/HCC); 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-Pacemaker Check Start: 01-01-2023 Telephone encounter Los Chaudhary Work Phone: [facility] DO Work Phone: Start: 12-29-2022 Chart Update Los Chaudhary Work Phone: [facility] 250 DO Work Phone: Start: 12-14-2022 End: 12-14-2022 ambulatory Akhil Olivarez Facility:[facility] Start: 12-14-2022 End: 12-14-2022 ambulatory MD Los Chaudhary Work Phone: [facility] Work Phone: Start: 12-14-2022 End: 12-14-2022 Patient encounter procedure MD Los Chaudhary Work Phone: [facility]-XRay [facility] Work Phone: Start: 12-13-2022 End: 12-14-2022 ambulatory SHWETA SOL Facility:[facility] Start: 12-13-2022 End: 12-13-2022 Patient encounter procedure Shweta Sol MD Work Phone: Plastic Surgery Comment on above: Alvarado's palsy (Primar y Dx) Start: 12-04-2022 Patient encounter procedure Do angel Roger Willnhi Work Phone: -[facility] 600 DO Work Phone: Start: 11-29-2022 Postop follow up vis it related to original px Los Chaudhary Work Phone: [facility] 250 DO Work Phone: Start: 11-29-[address] Akhil Olivarez II Facility: Start: 11-23-[address] Los Chaudhary Facility:[id number] Start: 11-23-[address] Los Chaudhary Facility:[id number] Start: 11-22-[address] Akhil Olivarez II Facility:[id number] Start: 11-22-20[facility] Provider: Akhil Olivarez, Status: Pen, Time: 10:00 AM Los Chaudhary Work Phone: [facility] 250 DO Work Phone: Start: 11-21-[address] Akhil Michel Facility:[id number] Start: 11-21-[address] Los Chaudhary Facility:[id number] Start: 11-20-2022 Telephone encounter Los Roger Chaudhary Work Phone: [facility] 250 DO Work Phone: Start: 11-20-[address] Los Chaudhary Facility:[id number] Start: 11-19-2022 End: 11-24-2022 Evaluation and management of inpatient Ashely Arguelles Facility:[facility] Start: 11-19-2022 End: 11-24-2022 Evaluation and management of inpatient MD Los Chaudhary Work Phone: [facility] [place] [facility] Work Phone: Start: 11-19-[address] Los Chaudhary Facility:90 Start: 11-18-[address] Los Chaudhary Facility:[id number] Start: 11-17-2022 Evaluation and manag ement of inpatient MD Los Chaudhary Work Phone: [facility] [place] [facility] Work Phone: Start: 11-17-2022 observation encounter MD Aviva Chaudhary Work Phone: [facility] Work Phone: Start: 11-09-2022 Message Los Chaudhary Work Phone: [facility] 600 DO Work Phone: Start: 10-30-[address] Akhil amato [facility] Facility: Start: 10-08-2022 AUDIT Los Chaudhary Work Phone: [facility] 250 DO Work Phone: Start: 09-25-2022 End: 09-25-[address] Akhil Michel Facility:[id number] Start: 09-25-2022 End: 09-25-2022 Admission to same day surgery center LINUX ADMIN-C Summer Tidwell Work Phone: 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 Work Phone: Start: 09-22-2022 Chart Update Los Chaudhary Work Phone: [facility] 250 DO Work Phone: Start: 09-22-2022 End: 09-22-2022 ambulatory Pearl Michel Facility:[facility] Start: 09-22-2022 End: 09-22-2022 ambulatory LINUX ADMIN-C Summer Tidwell Work Phone: [facility] Work Phone: Start: 09-22-2022 End: 09-22-2022 Patient encounter procedure LINUX ADMIN-C Summer Tidwell Work Phone: [facility] Work Phone: Start: 09-21-2022 Office outpatient vi sit 25 minutes Los M Hoy Work Phone: [facility] 250 DO Work Phone: Start: 09-21-[address] Akhil Olivarez II Facility: Start: 09-14-2022 ambulatory Sparkle [id number] [facility] ity:[id number] Start: 09-01-2022 Office outpatient vi sit 25 minutes Los M Hoy Work Phone: [facility] 250 DO Work Phone: Start: 09-01-[address] Akhil Olivarez II Facility: Start: 08-25-2022 End: 08-26-2022 [facility] Start: 08-07-2022 End: 09-06-2022 ambulatory SHAIKH Omer WHITE Facility: Start: 08-02-2022 Office outpatient vi sit 15 minutes Los M Hoy Work Phone: [facility] 250 DO Work Phone: Start: 08-02-2022 ambulatory Ms. Cheek Marcelina James Facility: Start: 08-01-2022 End: 08-02-2022 ambulatory MICKEY HERNANDEZ Facility:H1 Start: 07-18-2022 End: 07-18-2022 ambulatory Summer Tidwell Facility:[facility] Start: 07-18-2022 End: 07-18-2022 ambulatory LINUX ADMIN-C Summerbridget Ravi Yaw Work Phone: [facility] Work Phone: Start: 07-18-2022 End: 07-18-2022 Discharged Recurring LINUX ADMIN-C Summer Yaw Work Phone: [facility]-Physical Therapy [address] Start: 07-10-2022 End: 08-04-[address] LOS CHAUDHARY . Facility:H1 Start: 07-05-2022 ambulatory Ms. Mickey James Facility: Start: 07-05-2022 Office outpatient vi sit 25 minutes Los Chaudhary Work Phone: [facility] 250 DO Work Phone: Start: 06-28-2022 End: 06-28-[address] LOS CHAUDHARY . Facility:H1 Start: 06-13-2022 Chart Update Summer Al Lani r Work Phone: [facility] 250 DO Work Phone: Start: 06-13-2022 Registered Recurring LINUX ADMIN-C Cleo chapman Yaw Work Phone: [facility]-Physical Therapy [address] Start: 06-13-2022 End: 06-13-2022 ambulatory Akhil Olivarez Facility:[facility] Start: 06-13-2022 End: 06-13-2022 ambulatory LINUX ADMIN-C Summerbridget Ravi Yaw Work Phone: [facility] Work Phone: Start: 06-13-2022 End: 06-13-2022 Patient encounter procedure LINUX ADMIN-C Summer Yaw Work Phone: [facility]-Respiratory Therapy Work Phone: Start: 06-07-2022 End: 07-07-2022 ambulatory REIS H FAWWAD Facility:H1 Start: 05-24-2022 Patient encounter procedure Freddy Tidwell Work Phone: [facility]-[place] 250 DO Work Phone: Start: 05-10-2022 End: 06-07-2022 ambulatory SHAIKH Omer WHITE Facility:H1 Start: 04-28-2022 Rx Renewal Summer Burden r Work Phone: [facility]-[place] 250 DO Work Phone: Start: 04-10-2022 End: 05-10-2022 ambulatory SHAIKH Omer WHITE Facility:H1 Start: 03-23-2022 End: 03-23-2022 Patient encounter procedure Los Chaudhary [facility] Start: 03-10-2022 End: 03-10-[address] LOS CHAUDHARY . Facility:H1 Start: 03-09-2022 End: 04-09-2022 ambulatory SHAIKH Omer WHITE Facility:H1 Start: 02-07-2022 Office outpatient vi sit 25 minutes Summer [facility]idwell [facility] Work Phone: Start: 02-07-[address] Akhil Olivarez II Facility: Start: 02-07-2022 End: 03-08-2022 ambulatory SHAIKH Omer WHITE Facility:H1 Start: 01-10-2022 End: 01-10-2022 Emergency department patient visit LINUX ADMIN-C Summer Tidwell Work Phone: [facility]-Emergency Room Start: 01-08-2022 End: 02-06-2022 ambulatory SUMMER TIDWELL Facility:H1 Start: 01-05-2022 End: 01-05-2022 ambulatory LINUX ADMIN-C Summer Tidwell Work Phone: [facility] Work Phone: Start: 01-05-2022 End: 01-05-2022 Patient encounter procedure LINUX ADMIN-C Summer Tidwell Work Phone: [facility] [place] Start: 01-04-2022 End: 01-04-2022 ambulatory LINUX ADMIN-C Summer Tidwell Work Phone: [facility] Work Phone: Start: 01-04-2022 End: 01-04-2022 Patient encounter procedure LINUX ADMIN-C Summer Tidwell Work Phone: [facility] [place] Start: 12-29-2021 End: 12-29-2021 ambulatory SUMMER TIDWELL Facility:H1 Start: 12-20-2021 End: 12-22-[address] LOS CHAUDHARY . Facility:H1 Start: 12-16-2021 Chart Update Summer Burden r Work Phone: [facility] 250 DO Work Phone: Start: 12-13-2021 End: 12-13-2021 Patient encounter procedure LINUX ADMIN-C Summer Tidwell Work Phone: [facility]-Respiratory Therapy Start: 12-08-2021 End: 01-07-2022 ambulatory SUMMER TIDWELL Facility:H1 Start: 11-28-2021 Office outpatient vi sit 25 minutes Summer Tidwell Work Phone: [facility] 250 DO Work Phone: Start: 11-09-2021 AUDIT Summer Al Lani r Work Phone: [facility] 250 DO Work Phone: Start: 11-07-2021 End: 12-07-2021 ambulatory SUMMER TIDWELL Facility:H1 Start: 11-01-[address] LOS CHAUDHARY . Facili ty:H1 Start: 10-28-2021 End: 10-29-2021 Evaluation and management of inpatient LINUX ADMIN-C Summer Tidwell Work Phone: [facility] [place] [facility] Start: 10-25-2021 End: 10-25-2021 Emergency department patient visit LINUX ADMIN-C Summer Tidwell Work Phone: [facility]-Emergency Room Start: 10-21-2021 Patient encounter procedure Freddy jaiden Tidwell Work Phone: [facility] 250 DO Work Phone: Start: 10-21-2021 End: 10-21-2021 Emergency department patient visit LINUX ADMIN-C Summer Tidwell Work Phone: [facility]-Emergency Room Start: 10-20-2021 End: 10-20-2021 ambulatory SUMMER TIDWELL Facility:H1 Start: 10-07-2021 End: 11-04-2021 ambulatory SHAIKH Omer WHITE Facility:H1 Start: 09-28-2021 Patient encounter procedure Freddy jaiden Tidwell Work Phone: [facility]-[place] 600 DO Work Phone: Start: 09-21-2021 Office outpatient vi sit 25 minutes Summer Garibaymer Work Phone: [facility] 250 DO Work Phone: Start: 06-30-2021 Chart Update Summer Burden r Work Phone: [facility] 600 DO Work Phone: Start: 04-22-2021 Patient encounter procedure Freddy jaiden Tidwell Work Phone: [facility] 250 DO Work Phone: Start: 04-15-2021 Office outpatient vi sit 25 minutes Summer S Yaw Work Phone: [facility] 250 DO Work Phone: Start: 03-07-2021 Rx Renewal Akhil avitia MD Work Phone: [facility] 250 DO Work Phone: Start: 03-01-2021 Rx Renewal Akhil avitia MD Work Phone: [facility] [place] [facility] 600 DO Work Phone: Start: 12-22-2016 End: 12-23-2016 Ambulatory JUSTIN BROWN Facility:[facility] Procedures Date Procedure Procedure Detail Performing Clinician Start: 05-15-2023 Plain chest X-ray MD Gerber Work Phone: Start: 02-26-2023 ECG 12-LEAD MICKEY EARLENE H Start: 02-26-2023 Ecg routine ecg w/le ast 12 lds w/i&r Mickey James RIB MATCHER AND FITTER-[employer] Work Phone: Start: 01-23-2023 History of percutane ous transluminal coronary angioplasty H/O percutaneous transluminal coronary angioplasty Mickey James RIB MATCHER [employer] Work Phone: Start: 12-14-2022 Plain chest X-ray [...] Start: 09-25-2022 CL LHC & COR Angio LINUX ADMIN-C Summer Yaw Work Phone: Start: 09-25-2022 CL Stent 1st Vessel CX COLBY LINUX ADMIN-C Summer Yaw Work Phone: Start: 06-13-2022 Plain chest X-ray LINUX ADMIN-C Summer Yaw Work Phone: Start: 01-10-2022 CT of head without contrast LINUX ADMIN-C Summer Yaw Work Phone: Start: 12-13-2021 Plain chest X-ray LINUX ADMIN-C Smumer Tidwell Work Phone: Start: 10-28-2021 CT angiography of head LINUX ADMIN-C Summer Tidwell Work Phone: Start: 10-28-2021 CT angiography of ne ck vessels LINUX ADMIN-C Summer Tidwell Work Phone: Start: 10-28-2021 Magnetic resonance angiography of head without contrast LINUX ADMIN-C Summer Tidwell Work Phone: Start: 10-25-2021 CT of head without contrast LINUX ADMIN-C Summer Tidwell Work Phone: Start: 10-21-2021 Plain chest X-ray LINUX ADMIN-C Summer Tidwell Work Phone: Start: 03-09-2016 Stereotactically wilma ded core needle biopsy of breast Los Chaudhary Comment on above: left Start: 04-09-2009 5 Stents Los Ho y Angioplasty of blood vessel Summer Tidwell Work Phone: Extraction of cataract Dougl as Hoy H/O: surgery Status post eye surgery LINUX ADMIN-C Summer Tidwell Work Phone: History of placement of stent for coronary artery disease History of heart artery stent LINUX ADMIN-Abimbola Tidwell Work Phone: History of placement of stent for coronary artery disease Status post insertion of drug eluting coronary artery stent Los M Sumany Work Phone: L Hip Surgery Los Chaudhary Operation on fracture Summer Tidwell Work Phone: Operative procedure on hip Summer Tidwell Work Phone: R Broken leg Los Chaudhary SARS-CoV-2, Influenz a & RSV (PCR) LINUX ADMIN-C Summer Tidwell Work Phone: Surgical procedure Summer Tidwell Work Phone: Comment on above: stent indications; Urine culture LINUX ADMIN-C Summer spicer Work Phone: NEGATED: Highlighted row has not occurred! Total colonoscopy Summer Tidwell Work Phone: Plan of Treatment Date Care Activity Detail Author Start: 05-15-2026 Diabetes Screening Diabetes Screening [place] Start: 09-05-2023 End: 09-05-2023 Patient encounter procedure 09/05/2023 1:30 PM EDT Office Visit [facility] [address] [place] [id number] Akhil Olivarez MD [address] [place] [address] [facility] Start: 04-10-2023 FUV, Provider: Akhil Olivarez, Status: Pen, Time: 10:20 AM FUV, Provider: Akhil Olivarez, Status: Pen, Time: 10:20 AM [facility] 250 DO Work Phone: Start: 04-09-2023 Advance Directive Discussion Advance Directive Discussion [place] Start: 04-09-2023 Depression Assessment Depression Assessment [place] Start: 02-26-2023 FUV, Provider: Mickey Biggs, Status: Pen, Time: 1:00 PM FUV, Provider: Mickey Biggs, Status: Pen, Time: 1:00 PM [facility] 250 DO Work Phone: Start: 12-08-2022 Influenza vaccination Influenza Vaccine (#1) [place] Start: 11-30-2022 [facility] Start: 11-29-2022 [facility] Start: 11-28-2022 [facility] Start: 11-27-2022 [facility] Start: 11-26-2022 [facility] Start: 11-25-2022 [facility] Start: 11-24-2022 [facility] Start: 11-22-2022 [facility] Start: 11-22-2022 Lipid panel [facility] Start: 11-21-2022 Lipid panel [facility] Start: 11-20-2022 Catheterization of left heart CL *Left Heart Cath (LHC) [facility] Start: 11-20-2022 Lipid panel [facility] Start: 11-19-2022 Fluoroscopy of Left Heart using Low Osmolar Contrast Fluoroscopy of Left Heart using Low Osmolar Contrast [facility] Start: 11-19-2022 Fluoroscopy of Multiple Coronary Arteries using Low Osmolar Contrast Fluoroscopy of Multiple Coronary Arteries using Low Osmolar Contrast [facility] Start: 11-19-2022 Insertion of Pacemaker Lead into Right Atrium, Percutaneous Approach Insertion of Pacemaker Lead into Right Atrium, Percutaneous Approach [facility] Start: 11-19-2022 Insertion of Pacemaker Lead into Right Ventricle, Percutaneous Approach Insertion of Pacemaker Lead into Right Ventricle, Percutaneous Approach [facility] Start: 11-19-2022 Insertion of Pacemaker, Dual Chamber into Chest Subcutaneous Tissue and Fascia, Open Approach Insertion of Pacemaker, Dual Chamber into Chest Subcutaneous Tissue and Fascia, Open Approach [facility] Start: 11-19-2022 Measurement of Cardiac Sampling and Pressure, Left Heart, Percutaneous Approach Measurement of Cardiac Sampling and Pressure, Left Heart, Percutaneous Approach [facility] Start: 11-19-2022 Lipid panel [facility] Start: 11-18-2022 Lipid panel [facility] Start: 11-18-2022 End: 11-18-2022 [facility] Start: 11-17-2022 End: 11-17-2022 [facility] Start: 11-17-2022 Hospital admission [facility] Start: 11-17-2022 Referral to cigarette inspector [facility] Start: 10-30-2022 FUV, Provider: Akhil Olivarez, Status: Pen, Time: 11:30 AM FUV, Provider: Akhil Olivarez, Status: Pen, Time: 11:30 AM [facility] [address] DO Work Phone: Start: 10-29-2022 Echocardiography Echocardiogram [facility] Start: 09-25-2022 [facility] Start: 09-25-2022 [facility] Provider: Akhil Michel, Status: Pen, Time: 10:00 AM [facility] Provider: Akhil Michel, Status: Pen, Time: 10:00 AM [facility] 250 DO Work Phone: Start: 09-14-2022 STRESS NUC, Provider: RICHARD HHVI NUCLEAR 01,[id number], Status: Pen, Time: 8:00 AM STRESS NUC, Provider: RICHARD HHVI NUCLEAR 01,[id number], Status: Pen, Time: 8:00 AM [facility] 250 DO Work Phone: Start: 09-01-2022 FUV, Provider: Akhil Olivarez, Status: Pen, Time: 2:00 PM FUV, Provider: Akhil Olivarez, Status: Pen, Time: 2:00 PM [facility] 250 DO Work Phone: Start: 08-02-2022 FUV, Provider: Mickey Biggs, Status: Pen, Time: 1:00 PM FUV, Provider: Mickey Biggs, Status: Pen, Time: 1:00 PM [facility] 250 DO Work Phone: Start: 04-09-2022 Advance Directive Discussion Advance Directive Discussion [place] Start: 04-09-2022 Depression Assessment Depression Assessment [place] Start: 11-28-2021 FUV, Provider: Akhil Olivarez, Status: Pen, Time: 8:20 AM FUV, Provider: Akhil Olivarez, Status: Pen, Time: 8:20 AM [facility] 250 DO Work Phone: Start: 11-07-2021 [facility] Work Phone: Start: 11-06-2021 [facility] Work Phone: Start: 11-05-2021 [facility] Work Phone: Start: 11-04-2021 [facility] Work Phone: Start: 11-03-2021 [facility] Work Phone: Start: 11-02-2021 [facility] Work Phone: Start: 11-01-2021 [facility] Work Phone: Start: 10-31-2021 [facility] Work Phone: Start: 10-30-2021 [facility] Work Phone: Start: 10-29-2021 End: 10-29-2021 [facility] Start: 10-28-2021 Referral to neurologist [facility] Start: 10-28-2021 Vitamin B12 measurement [facility] Work Phone: Start: 10-28-2021 Vitamin D, 25-hydroxy measurement [facility] Work Phone: Start: 10-28-2021 Hospital admission [facility] Start: 10-28-2021 Physical therapy procedure [facility] Work Phone: Start: 10-28-2021 Referral to occupational therapist [facility] Work Phone: Start: 10-28-2021 [facility] Work Phone: Start: 09-28-2021 EVENT PILAR, Provider: IMAN VAZ ALLEY TENDER 1,[id number], Status: Pen, Time: 2:30 PM EVENT PILAR, Provider: IMAN VAZ ALLEY TENDER 1,[id number], Status: Pen, Time: 2:30 PM [facility] 250 DO Work Phone: Start: 09-21-2021 FUV, Provider: Akhil Olivarez, Status: Pen, Time: 2:10 PM FUV, Provider: Akhil Olivarez, Status: Pen, Time: 2:10 PM [facility] 250 DO Work Phone: Start: 04-15-2021 FUV, Provider: Akhil Olivarez, Status: Pen, Time: 1:15 PM [facility] 600 DO Work Phone: Start: 04-19-2020 Diabetes Screening Diabetes Screening [place] Start: 11-27-2019 Screening for osteoporosis Bone Density Scan [facility] Start: 12-09-2009 Urine microalbumin profile DTaP,Tdap,Td Vaccine (1 - Tdap) [place] Start: 1999 Bone Density Screening Bone Density Screening [facility] Start: 1999 Pneumococcal Vaccine: 65+ (1 - PCV) Pneumococcal Vaccine: 65+ (1 - PCV) [place] Start: 1999 Screening for osteoporosis Bone Density Screening [place] Start: 1994 RSV Vaccine (1 - 1-dose 60+ series) RSV Vaccine (1 - 1-dose 60+ series) [place] Start: 1984 Shingrix Vaccine (1 of 2) Shingrix Vaccine (1 of 2) [place] Start: 1984 Zoster Vaccines (1 of 2) Zoster Vaccines (1 of 2) [facility] Start: 1956 DTaP/Tdap/Td Vaccines (1 - Tdap) DTaP/Tdap/Td Vaccines (1 - Tdap) [facility] Start: 1953 Urine microalbumin profile DTaP,Tdap,Td Vaccine (1 - Tdap) [place] Start: 1952 Diabetes mellitus screening Diabetes Screening [facility] Start: 1952 Hepatitis B surface antibody level LDL Cholesterol [place] Start: 1934 Covid-19 Vaccine (#1) Covid-19 Vaccine (#1) [place] Start: 1934 Creatinine measurement Creatinine Level [facility] Start: 1934 Lipid panel Lipid Panel [facility] Start: 1934 Medicare Annual Wellness Visit Medicare Annual Wellness Visit (AWV) [facility] Start: 1934 Potassium measurement Potassium Level [facility] Start: 1934 Thyroid stimulating hormone measurement TSH Level [facility] Bacteria identified in Urine by Culture [facility] ECG 12 lead (Clinic Performed) ECG 12 lead (Clinic Performed) ECG Routine Paroxysmal atrial fibrillation (CMS/HCC) High risk medication use 02/26/2023 1:22 PM EST [facility] Work Phone: Patient Education [facility] Work Phone: Patient referral [facility] Work Phone: Vitamin D, 25-hydrox y measurement [facility] Work Phone: [facility] Immunizations Immunization Date Immunization Notes Care Provider [facility] 12-08-2019 influenza, high dose seasonal, preservative-free Summer S Yaw Work Phone: [facility] 250 DO Work Phone: 12-08-2019 influenza virus vacc ine, unspecified formulation Shweta Sol MD Work Phone: [place] 12-04-2019 influenza, high dose seasonal, preservative-free Mickey Jacob RIB MATCHER AND FITTER-CELLAR PUMPER Work Phone: [facility] Work Phone: 12-18-2018 influenza, high dose seasonal, preservative-free Summer S Yaw Work Phone: [facility] 250 DO Work Phone: 12-18-2018 pneumococcal polysaccharide vaccine, 23 valent Summer S Yaw Work Phone: [facility] 12-08-2018 influenza virus vacc ine, unspecified formulation Summer S Yaw Work Phone: [facility] 250 DO Work Phone: 04-09-2018 pneumococcal conjuga te vaccine, 13 valent Mickey James RIB MATCHER AND FITTER-CELLAR PUMPER Work Phone: [facility] Work Phone: 04-09-2018 pneumococcal polysaccharide vaccine, 23 valent Summer S Yaw Work Phone: [facility] 250 DO Work Phone: 12-26-2017 influenza, high dose seasonal, preservative-free Summer S Yaw Work Phone: [facility] 250 DO Work Phone: 12-26-2017 influenza, injectabl e, quadrivalent, preservative free Mickey James RIB MATCHER AND FITTER-CELLAR PUMPER Work Phone: [facility] Work Phone: 01-03-2017 influenza, high dose seasonal, preservative-free Summer S Yaw Work Phone: [facility] 250 DO Work Phone: 01-03-2017 pneumococcal conjuga te vaccine, 13 valent Summer S Yaw Work Phone: [place] [address] DO Work Phone: 12-26-2016 influenza virus vacc ine, unspecified formulation Summer S Yaw Work Phone: [facility] 12-26-2016 pneumococcal conjuga te vaccine, 13 valent Summer S Yaw Work Phone: [facility] 250 DO Work Phone: 01-11-2016 influenza, high dose seasonal, preservative-free Summer S Yaw Work Phone: [facility] 250 DO Work Phone: 02-12-2015 influenza, injectabl e, quadrivalent, preservative free Usmmer S Yaw Work Phone: [facility] 250 DO Work Phone: 01-07-2015 influenza virus vacc ine, unspecified formulation Summer S Yaw Work Phone: [facility] 250 DO Work Phone: 01-07-2014 influenza virus vacc ine, unspecified formulation Summer S Yaw Work Phone: [facility] 250 DO Work Phone: 02-25-2013 influenza, seasonal, injectable Summer S Yaw Work Phone: [facility] 250 DO Work Phone: 03-26-2009 novel influenza-H1N1 -09, preservative-free, injectable Summer Garibaymer Work Phone: [facility] 250 DO Work Phone: 04-09-2007 pneumococcal polysaccharide vaccine, 23 valent Summer S Yaw Work Phone: [facility] 250 DO Work Phone: 02-02-2003 pneumococcal polysaccharide vaccine, 23 valent Summer S Yaw Work Phone: [facility] influenza virus vacc ine, unspecified formulation Summer Garibaymer Work Phone: [facility] 250 DO Work Phone: Comment on above: [id number] Payers Date Payer Category Payer Medicare [id number] 2023 Medicare [id number] 2022 Self-pay [id number] 2022 Unknown [id number] 2016 Unknown 2012 Medicare [id number] 1999 Medicare 1959 Medicare [id number] 1959 Unknown [id number] 1934 Unknown [id number] 2.16.840.1.764102.3.579.2.593 1934 Unknown [id number] 2.16.840.1.837183.3.579.2.593 1934 Unknown [id number] 2.16.840.1.380444.3.579.2.593 1934 Unknown [id number] 2.16.840.1.221096.3.579.2.593 1934 Unknown [id number] 2.16.840.1.958136.3.579.2.593 1934 Unknown [id number] 2.16.840.1.493868.3.579.2.593 1934 Unknown [id number] 2.16.840.1.061865.3.579.2.593 1934 Unknown [id number] 2.16.840.1.985169.3.579.2.593 1934 Unknown [id number] 2.16.840.1.860515.3.579.2.593 1934 Unknown [id number] 2.16.840.1.747251.3.579.2.593 1934 Unknown [id number] 2.16.840.1.529161.3.579.2.593 1934 Unknown [id number] 2.16.840.1.650312.3.579.2.593 1934 Unknown [id number] 2.16.840.1.253563.3.579.2.593 1934 Unknown [id number] 2.16.840.1.736777.3.579.2.593 1934 Unknown [id number] 2.16.840.1.712731.3.579.2.593 1934 Unknown [id number] 2.16.840.1.166344.3.579.2.593 1934 Unknown [id number] 2.16.840.1.760269.3.579.2.593 1934 Unknown [id number] 2.16.840.1.845583.3.579.2.593 1934 Unknown [id number] 2.16.840.1.975451.3.579.2.1068 1934 Unknown [id number] 2.16.840.1.723797.3.579.2.356 1934 Unknown [id number] 2.16.840.1.536594.3.579.2.356 1934 Unknown [id number] 2.16840.1.541851.3.579.2.356 1934 Unknown [id number] 2.840.1.074373.3.579.2.356 1934 Unknown [id number] 2.840.1.986038.3.579.2.356 1934 Unknown [id number] 2.840.1.436178.3.579.2.356 1934 Unknown [id number] 2.840.1.407640.3.579.2.356 1934 Unknown [id number] 2.840.1.982715.3.579.2.356 1934 Unknown [id number] 2.16840.1.918382.3.579.2.356 1934 Unknown [id number] 2.840.1.689089.3.579.2.356 1934 Unknown [id number] 2.16840.1.568919.3.579.2.356 1934 Unknown [id number] 2.840.1.440779.3.579.2.356 1934 Unknown [id number] 2.16840.1.920834.3.579.2.356 1934 Unknown [id number] 2.16840.1.179990.3.579.2.356 1934 Unknown [id number] 2.16.840.1.193064.3.579.2.356 1934 Unknown [id number] 2.16.840.1.447021.3.579.2.356 1934 Unknown [id number] 2.16.840.1.487687.3.579.2.356 1934 Unknown [id number] 2.16.840.1.789982.3.579.2.1244 1934 Unknown [id number] 2.16.840.1.786279.3.579.2.727 Medicare Medicare Rehab-IP Part A [id number] Unknown [id number] 2.16.840.1.299293.3.579.2.531 Unknown [id number] 2.16.840.1.827421.3.579.2.531 Unknown [id number] 2.16.840.1.425726.3.579.2.531 Unknown [id number] 2.16.840.1.713369.3.579.2.531 Unknown [id number] 2.16.840.1.494582.3.579.2.531 Unknown [id number] 2.16.840.1.581484.3.579.2.531 Unknown [id number] 2.16.840.1.374036.3.579.2.531 Unknown [id number] 2.16.840.1.845895.3.579.2.531 Unknown [id number] 2.16.840.1.754232.3.579.2.531 Social History Date Type Detail Facility Start: 08-25-2022 End: 12-13-2022 No alcohol use No alcohol use [facility] [address] DO Work Phone: Comment on above: Hot sandy occas.; Start: 10-28-2021 Tobacco smoking stat us NHIS Unknown if ever smoked [facility] Start: 1935 Sex Assigned At Female F [facility] Start: 10-29-2021 End: 11-22-2022 Tobacco smoking status NHIS Never smoked tobacco (finding) [facility] Start: 08-25-2022 End: 12-13-2022 Sex Assigned At Female [facility] Start: 12-13-2012 End: 02-23-2023 Tobacco use and exposure Smokeless tobacco non-user [place] Start: 12-13-2022 End: 03-29-2023 Alcohol intake Current non-drinker of alcohol (finding) [place] National Score (1-100), lower number is lower risk 91 [place] Start: 1935 Sex Assigned At Not on file C [facility] Start: 02-26-2023 Alcohol intake Lifetime non-d nanci (finding) [facility] Work Phone: Start: 02-16-2023 End: 02-26-2023 Exposure to SARS-CoV-2 (event) Not sure [facility] Medical Equipment Procedure Code Equipment Code Equipment Origin al Text Equipment Identifier Dates Insertion, pacemaker Endocardial pacing lead [id number] FDA Start: 11-22-2022 Insertion, pacemaker Endocardial pacing lead [id number] FDA Start: 11-22-2022 Insertion, pacemaker Dual-chamber implantable pacemaker, rate-responsive [id number] FDA Start: 11-22-2022 BLADE HELICAL TF NA 100MM FDA Start: 03-15-2017 NAIL TFNA SHORT NAIL 10MM FDA Start: 03-15-2017 SCREW 5.0MM TI LOCKING 38MM FDA Start: 03-15-2017 BLADE HELICAL TF NA 100MM FDA Start: 03-15-2017 NAIL TFNA SHORT NAIL 10MM FDA Start: 03-15-2017 SCREW 5.0MM TI LOCKING 38MM FDA Start: 03-15-2017 BLADE HELICAL TF NA 100MM FDA Start: 12-07-2017 NAIL TFNA SHORT NAIL 10MM FDA Start: [...] FRONTIER 2.5 X 30 FDA Start: 09-25-2022 Oculid [place] [id number] Sta rt: 04-24-2023 BLADE HELICAL TF NA 100MM FDA Start: 03-15-2017 NAIL TFNA SHORT NAIL 10MM FDA Start: 03-15-2017 SCREW 5.0MM TI LOCKING 38MM FDA Start: 03-15-2017 CL STENT [place]ANLEY FRONTIER 2.5 X 30 FDA Start: 09-25-2022 Goals Date Patient Goal Desired Activity /State Functional Status Date Assessment Result Facility 11-24-2022 Functional status Patient is Pro gressing Toward Baseline [facility] Work Phone: 11-17-2022 Functional status Disability Sta tus Patient at Baseline [facility] Work Phone: 09-25-2022 Functional status Patient at Baseline [facility] Work Phone: 10-29-2021 Functional status Patient is Pro gressing Toward Baseline [facility] Work Phone: Mental Status Date Assessment Result Facility 11-24-2022 Cognitive function Cognitive Sta tus Patient at Baseline [facility] Work Phone: 09-25-2022 Cognitive function Cognitive Sta tus Patient at Baseline [facility] Work Phone: 10-29-2021 Cognitive function Cognitive Sta tus Patient at Baseline [facility] Work Phone: Clinical Notes 10-28-2021 to 05-21-2023 Rosalva Lemos APRN.CELLAR PUMPER - 05/21/2023 8:40 AM ESTTelephone [facility] - Beatris Castañeda LPN - 03/21/2023 11:56 AM ESTTelephone Encounter - Jerilyn Rosa - 03/21/2023 11:13 AM ESTPatient Instructions Note Date & Type Note Facility 05-21-2023 Note HNO ID: [id number] Author: ROSALVA LEMOS APRN.CELLAR PUMPER Service: ? 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 Pain: denies Fever/chills: denies Activity:able to participate in ADLs within recommended restrictions Says she is using ointment on her eyelid 2-3 times a day, this causes her eyes to water a lot Says she can feel the weight on her eyelid and she is still getting used to this feeling, but says her vision itself has not changed Is unsure what exactly to expect post operatively PAST MEDICAL HISTORY Diagnosis Date A-fib (HCC) Cardiac pacemaker 11/22/2022 CKD (chronic kidney disease) Congestive heart failure (HCC) Coronary artery disease Hypertension Hypothyroidism MGUS (monoclonal gammopathy of unknown significance) Pulmonary HTN (HCC) Valvular heart disease PAST SURGICAL HISTORY Procedure Laterality Date ANESTH,PACEMAKER INSERTION 11/22/2022 PAST SURGICAL HISTORY OF 2017 L hip fx repair PAST SURGICAL HISTORY OF 1982 RLE ORIF PCI/STENT PCI x 4 2009, PCI to circumflex 09/2022 REMV CATARACT EXTRACAP,INSERT LENS Bilateral Current Outpatient Medications on File Prior to Visit Medication Sig acetaminophen (TYLENOL) 500 mg tablet Take 2 tablets by mouth every 6 hours for 5 days, THEN 1 to 2 tablets every 6 hours as needed for pain. docusate sodium (COLACE) 100 mg capsule Take 1 capsule by mouth two times a day as needed for constipation. erythromycin (ROMYCIN) 5 mg/gram (0.5 %) ophthalmic ointment Apply 1 application in the left eye three times a day for 7 days. aspirin, enteric coated (ASPIRIN, ENTERIC COATED) 81 mg EC tablet Take 81 mg by mouth two times a week. Sunday and Sunday nitroglycerin sublingual (NITROSTAT) 0.6 mg SL tablet Dissolve 0.6 mg under the tongue every 5 minutes as needed for chest pain. Ascorbic Acid 1,000 mg tablet Take 1 tablet by mouth once daily. calcium carbonate (CALTRATE) 600 mg calcium (1,500 mg) tab Take by mouth two times a day. Apple Cider Vinegar 500 mg tab Take 1 tablet by mouth once daily. cyanocobalamin (VITAMIN B-12) 100 mcg tab Take 1,000 mcg by mouth once daily. denosumab (PROLIA) 60 mg/mL Inject subcutaneously once every 6 months. omega-3/dha/epa/fish oil (OMEGA-3 FISH OIL ORAL) Take 1 tablet by mouth once daily. MULTIVITAMIN ORAL Take 1 tablet by mouth once daily. Vitamin E 100 unit/0.25 mL drop Take 1 tablet by mouth once daily. Flaxseed Oil 1,000 mg cap Take 1 capsule by mouth once daily. OTC NUTRITIONAL SUPPLEMENT Take 1 tablet by mouth once daily. [facility] clopidogrel (PLAVIX) 75 mg tablet Take 75 mg by mouth once daily. isosorbide mononitrate ER (IMDUR) 60 mg 24 hr tablet TAKE 1 TABLET BY MOUTH ONCE DAILY DIRECTED. DOSE INCREASED levothyroxine (SYNTHROID) 50 mcg tablet Take 1 tablet by mouth every afternoon. torsemide (DEMADEX) 5 mg tablet Take 5 mg by mouth. amiodarone (PACERONE) 200 mg tablet Take 100 mg by mouth two times a day. warfarin (COUMADIN) 6 mg tablet Take 2.5 mg by mouth as directed. lisinopril 5 mg tablet Take 10 mg by mouth once daily. No current facility-administered medications on file prior to visit. There were no vitals taken for this visit. PE Alert and oriented in NAD on room air Left eye incisions c/d/I Able to closer her eye on command Excess lubrication/tears to inner portion of eye +EOMs ASSESSMENT/PLAN: Expected post operative course - activity restrictions reviewed - keep area clean and dry - can use artificial tears and ointment PRN -discussed change in sensation due to weight in eye is expected, we will have her follow up in [address] Sol to monitor her progress -If experiencing wound complications or have any questions or concerns during business hours call [phone] or after hours (after 5 pm or on the weekend) call [phone] and ask for the plastic surgery resident / fellow semiconductor packages platemaker for further instructions. If you have increasing swelling or bruising, particularly one side greater than the other. If swelling and redness persists after a few days. If you have increased redness along the incision or spreading around the incisions If you have severe or increased pain not relieved by medication. If you have an oral temperature of 100.4 degrees or higher. If you have any yellow or greenish drainage from the incisions or notice a foul smell. If you have bleeding from the incisions that is difficult to control with light pressure If you have new chest pain, shortness of breast or difficulty breathing (more content not included)... [facility] 05-21-2023 History of Presen t illness Narrative Plastic Surgery Post Op Note CC: post op HPI Date of Surgery: 04/24/2023 Surgery: insertion of left upper eyelid weight (1.6 g [place] weight placed in the left upper eyelid), and direct brow lift of left eyebrow Time Postop: 4 weeks 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 Pain: denies Fever/chills: denies Activity:able to participate in ADLs within recommended restrictions Says she is using ointment on her eyelid 2-3 times a day, this causes her eyes to water a lot Says she can feel the weight on her eyelid and she is still getting used to this feeling, but says her vision itself has not changed Is unsure what exactly to expect post operatively PAST MEDICAL HISTORY Diagnosis Date A-fib (HCC) Cardiac pacemaker 11/22/2022 CKD (chronic kidney disease) Congestive heart failure (HCC) Coronary artery disease Hypertension Hypothyroidism MGUS (monoclonal gammopathy of unknown significance) Pulmonary HTN (HCC) Valvular heart disease PAST SURGICAL HISTORY Procedure Laterality Date ANESTH,PACEMAKER INSERTION 11/22/2022 PAST SURGICAL HISTORY OF 2016 L hip fx repair PAST SURGICAL HISTORY OF 1981 RLE ORIF PCI/STENT PCI x 4 2009, PCI to circumflex 09/2022 REMV CATARACT EXTRACAP,INSERT LENS Bilateral Current Outpatient Medications on File Prior to Visit Medication Sig acetaminophen (TYLENOL) 500 mg tablet Take 2 tablets by mouth every 6 hours for 5 days, THEN 1 to 2 tablets every 6 hours as needed for pain. docusate sodium (COLACE) 100 mg capsule Take 1 capsule by mouth two times a day as needed for constipation. erythromycin (ROMYCIN) 5 mg/gram (0.5 %) ophthalmic ointment Apply 1 application in the left eye three times a day for 7 days. aspirin, enteric coated (ASPIRIN, ENTERIC COATED) 81 mg EC tablet Take 81 mg by mouth two times a week. Sunday and Sunday nitroglycerin sublingual (NITROSTAT) 0.6 mg SL tablet Dissolve 0.6 mg under the tongue every 5 minutes as needed for chest pain. Ascorbic Acid 1,000 mg tablet Take 1 tablet by mouth once daily. calcium carbonate (CALTRATE) 600 mg calcium (1,500 mg) tab Take by mouth two times a day. Apple Cider Vinegar 500 mg tab Take 1 tablet by mouth once daily. cyanocobalamin (VITAMIN B-12) 100 mcg tab Take 1,000 mcg by mouth once daily. denosumab (PROLIA) 60 mg/mL Inject subcutaneously once every 6 months. omega-3/dha/epa/fish oil (OMEGA-3 FISH OIL ORAL) Take 1 tablet by mouth once daily. MULTIVITAMIN ORAL Take 1 tablet by mouth once daily. Vitamin E 100 unit/0.25 mL drop Take 1 tablet by mouth once daily. Flaxseed Oil 1,000 mg cap Take 1 capsule by mouth once daily. OTC NUTRITIONAL SUPPLEMENT Take 1 tablet by mouth once daily. [facility] clopidogrel (PLAVIX) 75 mg tablet Take 75 mg by mouth once daily. isosorbide mononitrate ER (IMDUR) 60 mg 24 hr tablet TAKE 1 TABLET BY MOUTH ONCE DAILY DIRECTED. DOSE INCREASED levothyroxine (SYNTHROID) 50 mcg tablet Take 1 tablet by mouth every afternoon. torsemide (DEMADEX) 5 mg tablet Take 5 mg by mouth. amiodarone (PACERONE) 200 mg tablet Take 100 mg by mouth two times a day. warfarin (COUMADIN) 6 mg tablet Take 2.5 mg by mouth as directed. lisinopril 5 mg tablet Take 10 mg by mouth once daily. No current facility-administered medications on file prior to visit. There were no vitals taken for this visit. PE Alert and oriented in NAD on room air Left eye incisions c/d/I Able to closer her eye on command Excess lubrication/tears to inner portion of eye +EOMs ASSESSMENT/PLAN: Expected post operative course - activity restrictions reviewed - keep area clean and dry - can use artificial tears and ointment PRN -discussed change in sensation due to weight in eye is expected, we will have her follow up in [address] Sol to monitor her progress -If experiencing wound complications or have any questions or concerns during business hours call [phone] or after hours (after 5 pm or on the weekend) call [phone] and ask for the plastic surgery resident / fellow semiconductor packages platemaker for further instructions. If you have increasing swelling or bruising, particularly one side greater than the other. If swelling and redness persists after a few days. If you have increased redness along the incision or spreading around the incisions If you have severe or increased pain not relieved by medication. If you have an oral temperature of 100.4 degrees or higher. If you have any yellow or greenish drainage from the incisions or notice a foul smell. If you have bleeding from the incisions that is difficult to control with light pressure If you have new chest pain, shortness of breast or difficulty breathing Return to clinic in [address] Sol The patient is seen and examined by Rosalva Lemos CNP and the following reflects his/her service. Scribed by Isabel Mcneil RN I agree with the Chief Complaint, ROS, and Past Histories independently gathered by the clinical it support specialist and the remaining scribed note accurately describes my personal service to the patient. Rosalva Lemos APRN.CNP May 21, 2023 documented in this encounter [place] 04-30-2023 Note HNO ID: [id number] Author: ROSALVA LEMOS APRN.CNP Service: ? Author Type: Nurse Practitioner Type: Progress Notes Filed: 04/30/2023 10:27 Note Text: Plastic Surgery Post Op Note CC: post op HPI Date of Surgery: 04/24/2023 Surgery: insertion of left upper eyelid weight (1.6 g [place] weight placed in the left upper eyelid), and direct brow lift of left eyebrow Time Postop: 6 days 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 Pain: denies pain, but says that she can feel the weight, thinks she is finally able to fully close her eye now Drainage from incisions: denies, says she has been having a lot of tears'' coming out of her left eye, is not sure if that is a result of the ointment she is putting in. has been applying romycin ointment to eyelid 3 times daily. Last day is tomorrow. Fever/chills: denies Activity:able to participate in ADLs within recommended restrictions PAST MEDICAL HISTORY Diagnosis Date A-fib (HCC) Cardiac pacemaker 11/22/2022 CKD (chronic kidney disease) Congestive heart failure (HCC) Coronary artery disease Hypertension Hypothyroidism MGUS (monoclonal gammopathy of unknown significance) Pulmonary HTN (HCC) Valvular heart disease PAST SURGICAL HISTORY Procedure Laterality Date ANESTH,PACEMAKER INSERTION 11/22/2022 PAST SURGICAL HISTORY OF 2016 L hip fx repair PAST SURGICAL HISTORY OF 1981 RLE ORIF PCI/STENT PCI x 4 2009, PCI to circumflex 09/2022 REMV CATARACT EXTRACAP,INSERT LENS Bilateral Current Outpatient Medications on File Prior to Visit Medication Sig acetaminophen (TYLENOL) 500 mg tablet Take 2 tablets by mouth every 6 hours for 5 days, THEN 1 to 2 tablets every 6 hours as needed for pain. docusate sodium (COLACE) 100 mg capsule Take 1 capsule by mouth two times a day as needed for constipation. erythromycin (ROMYCIN) 5 mg/gram (0.5 %) ophthalmic ointment Apply 1 application in the left eye three times a day for 7 days. aspirin, enteric coated (ASPIRIN, ENTERIC COATED) 81 mg EC tablet Take 81 mg by mouth two times a week. Sunday and Sunday nitroglycerin sublingual (NITROSTAT) 0.6 mg SL tablet Dissolve 0.6 mg under the tongue every 5 minutes as needed for chest pain. Ascorbic Acid 1,000 mg tablet Take 1 tablet by mouth once daily. calcium carbonate (CALTRATE) 600 mg calcium (1,500 mg) tab Take by mouth two times a day. Apple Cider Vinegar 500 mg tab Take 1 tablet by mouth once daily. cyanocobalamin (VITAMIN B-12) 100 mcg tab Take 1,000 mcg by mouth once daily. denosumab (PROLIA) 60 mg/mL Inject subcutaneously once every 6 months. omega-3/dha/epa/fish oil (OMEGA-3 FISH OIL ORAL) Take 1 tablet by mouth once daily. MULTIVITAMIN ORAL Take 1 tablet by mouth once daily. Vitamin E 100 unit/0.25 mL drop Take 1 tablet by mouth once daily. Flaxseed Oil 1,000 mg cap Take 1 capsule by mouth once daily. OTC NUTRITIONAL SUPPLEMENT Take 1 tablet by mouth once daily. [facility] clopidogrel (PLAVIX) 75 mg tablet Take 75 mg by mouth once daily. isosorbide mononitrate ER (IMDUR) 60 mg 24 hr tablet TAKE 1 TABLET BY MOUTH ONCE DAILY DIRECTED. DOSE INCREASED levothyroxine (SYNTHROID) 50 mcg tablet Take 1 tablet by mouth every afternoon. torsemide (DEMADEX) 5 mg tablet Take 5 mg by mouth. amiodarone (PACERONE) 200 mg tablet Take 100 mg by mouth two times a day. warfarin (COUMADIN) 6 mg tablet Take 2.5 mg by mouth as directed. lisinopril 5 mg tablet Take 10 mg by mouth once daily. No current facility-administered medications on file prior to visit. There were no vitals taken for this visit. PE Alert and oriented in NAD on room air Left eye incisions c/d/I Able to closer her eye on command Excess tears noted Prolene sutures in crease- running stitch removed Ecchymosis and edema as expected ASSESSMENT/PLAN: Expected post operative course -prolene sutures removed -activity restrictions reviewed -continue ointment -keep area clean and dry -okay for OTC pain medication as tolerated -If experiencing wound complications or have any questions or concerns during business hours call [phone] or after hours (after 5 pm or on the weekend) call [phone] and ask for the plastic surgery resident / fellow semiconductor packages platemaker for further instructions. If you have increasing swelling or bruising, particularly one side greater than the other. If swelling and redness persists after a few days. If you have increased redness along the incision or spreading around the incisions If you have severe or increased pain not relieved by medication. If you have an oral temperature of 100.4 degrees or higher. If you have any yellow or greenish drainage from the incisions or notice a foul smell. If you have bleeding from the incisions that is difficult to control with light pressure If you have new chest pain, shortness of breas (more content not included)... [facility] 04-24-2023 Note HNO ID: [id number] Author: ?, ?, ? Service: Pharmacy Author Type: ? Type: Plan of Care Filed: 04/25/2023 14:43 Note Text: PHARMACY BEDSIDE DELIVERY SERVICE Patient Name: Erin Canales The marked outpatient medications were filled at [facility] pharmacy and picked up at the pharmacy by the pt daughter Betty Medication List START taking these medications acetaminophen 500 mg tablet Commonly known as: TYLENOL Take 2 tablets by mouth every 6 hours for 5 days, THEN 1 to 2 tablets every 6 hours as needed for pain. Start taking on: April 24, 2023 docusate sodium 100 mg capsule Commonly known as: COLACE Take 1 capsule by mouth two times a day as needed for constipation. erythromycin 5 mg/gram (0.5 %) ophthalmic ointment Commonly known as: ROMYCIN Apply 1 application in the left eye three times a day for 7 days. traMADol 50 mg tablet Commonly known as: ULTRAM Take 1/2 tablet by mouth every 8 hours as needed for pain for up to 3 days. CONTINUE taking these medications amiodarone 200 mg tablet Commonly known as: PACERONE Apple Cider Vinegar 500 mg Tab Ascorbic Acid 1,000 mg tablet aspirin, enteric coated 81 mg EC tablet Commonly known as: ASPIRIN, ENTERIC COATED calcium carbonate 600 mg calcium (1,500 mg) Tab Commonly known as: CALTRATE clopidogrel 75 mg tablet Commonly known as: PLAVIX cyanocobalamin 100 mcg Tab Commonly known as: VITAMIN B-12 Flaxseed Oil 1,000 mg Cap isosorbide mononitrate ER 60 mg 24 hr tablet Commonly known as: IMDUR levothyroxine 50 mcg tablet Commonly known as: SYNTHROID lisinopril 5 mg tablet Commonly known as: ZESTRIL MULTIVITAMIN ORAL NITROSTAT 0.6 mg SL tablet Generic drug: nitroglycerin sublingual OMEGA-3 FISH OIL ORAL OTC NUTRITIONAL SUPPLEMENT PROLIA 60 mg/mL Generic drug: denosumab torsemide 5 mg tablet Commonly known as: DEMADEX Vitamin E 100 unit/0.25 mL Drop warfarin 6 mg tablet Commonly known as: COUMADIN You might also be taking other medications not listed above. If you have questions about any of your other medications, talk to the person who prescribed them or your Primary Care Provider. Merlin Reese PAGER: [phone] April 25, 2023 2:42 PM [facility] 03-29-2023 Note HNO ID: [id number] Author: Shweta Sol MD Service: ? 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 This developed [...] mouth once daily. Allergies: ALLERGIES Allergen Reactions Zncytsl-Wiq-Tjv Red* Other: See Comments Cannot walk when [...] Past Histories independently gathered by the clinical it support specialist and the remaining scribed note accurately describes my personal service to the patient. 30 Minutes total visit spent face to face with patient. Greater than 50% of the time was spent for counseling and coordination of care, discussing treatment options and recommendations. By signing my name below, Chloe Moore, attest that this documentation has been prepared [...] Sol MD March 29, 2023 2:34 PM [facility] 03-21-2023 Miscellaneous Notes I see that it [...] need a PAC appt please advise. 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 CHADS VASc 5 anticoagulated on Coumadin Denies bleeding diatheses [facility] Work Phone: 02-27-2023 Miscellaneous Notes Associated Problem(s): Pacemaker November 22, 2022 Garcia 2272 dual-chamber permanent pacemaker Associated Problem(s): intermediate current use of anticoagulant therapy CHADS VASc [...] of coronary artery September 25, 2022 pCX PCI/[place] 2.5/30mm Diag, LAD, OM3 patent stents pRCA CONCRETE BLOCK MOLDER Nov 21, 2022 Repeat cath: no changes Current daily activity 4 METS without concerning symptoms Associated Problem(s): High risk medication use Amiodarone Surveillance testing December 2022 Associated Problem(s): Abnormal echocardiogram October 2021 echo LVEF 55 to 60% LVH mild LAE moderate dilated MR mild RVSP 40 mmHg documented in this encounter [facility] Work Phone: 02-27-2023 Evaluation + Plan note Associated Problem(s): Paroxysmal atrial fibrillation (CMS/HCC) EKG in office a paced, underlying sinus rhythm. QTc 432. [facility] Work Phone: 02-27-2023 Evaluation + Plan note Associated Problem(s): Statin intolerance September 2022 LDL 90, HDL 46 Briefly discussed Repatha and politely declines due to concerns regarding cost and self injections. [facility] Work Phone: 02-27-2023 Evaluation + Plan note Associated Problem(s): Essential hypertension Optimal in office [facility] Work Phone: 02-27-2023 Evaluation + Plan note Associated Problem(s): Arteriosclerosis of coronary artery September 25, 2022 pCX PCI/Stanley 2.5/30mm Diag, LAD, OM3 patent stents pRCA CONCRETE BLOCK MOLDER Nov 21, 2022 Repeat cath: no changes Current daily activity 4 METS without concerning symptoms [facility] Work Phone: 02-27-2023 Evaluation + Plan note Associated Problem(s): High risk medication use Amiodarone Surveillance testing December 2022 [facility] Work Phone: 02-26-2023 Evaluation + Plan note Associated Problem(s): Abnormal echocardiogram October 2021 echo LVEF 55 to 60% LVH mild LAE moderate dilated MR mild RVSP 40 mmHg [facility] Work Phone: 02-26-2023 History of Presen t [...] down on Sundays to get 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 She denies any dyspnea on exertion, denies [...] (Beta-Adrenergic Blocking Agts) Other bradycardia Ibuprofen Hives Ppaqljw-Npv-Yha Reductase Inhibitors Myalgia and Other Current Outpatient Medications Medication Instructions amiodarone (PACERONE) 200 mg, oral, Daily aspirin 81 mg chewable tablet Take one tablet by mouth twice a week cholecalciferol (Vitamin D-3) 50 mcg (2,000 unit) capsule 1 capsule, oral, Daily clopidogrel (PLAVIX) 75 mg, oral, Daily cyanocobalamin (Vitamin B-12) 100 mcg tablet 1 tablet, oral, Daily fish oil concentrate ([place]-3) 120-180 mg capsule 1 capsule, oral, Daily [...] mg, oral, See admin instructions, [facility] Assessment: Abnormal echocardiogram October 2021 echo LVEF 55 to 60% LVH mild LAE moderate dilated MR mild RVSP 40 mmHg High risk medication use Amiodarone Surveillance testing December 2022 Arteriosclerosis of coronary artery September 25, 2022 pCX PCI/[place] 2.5/30mm Diag, LAD, OM3 patent stents pRCA CONCRETE BLOCK MOLDER Nov 21, 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 Paroxysmal atrial fibrillation (CMS/HCC) EKG in office a paced, underlying sinus rhythm. QTc 432. intermediate current use of anticoagulant therapy CHADS VASc [...] Dr. Olivarez 6 months Mickey James MSN, RIB MATCHER AND FITTER-CELLAR PUMPER, PMHNP-[facility] Please excuse any errors in grammar or translation related to this dictation. Voice recognition software was utilized to prepare this document. documented in this encounter [facility] Work Phone: 02-26-2023 Instructions MAGALI Phan - [...] Olivarez 6 months documented in this encounter [facility] Work Phone: 09-06-2023 Note HNO ID: [id number] Author: Jae Adkins, RN Service: ? 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 This developed [...] Allergies: ALLERGIES Allergen Reactions Motrin [Ibuprofen] Unknown Aegqfpr-Shp-Mln Red* Other: See Comments Cannot walk when [...] the following reflects his service. Scribed by Jae Adkins RN I agree with the Chief Complaint, ROS, and Past Histories independently gathered by the clinical it support specialist and the remaining scribed note accurately describes [...] complete. 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 This developed [...] Allergies: ALLERGIES Allergen Reactions Motrin [Ibuprofen] Unknown Nmavbst-Rah-Cfx Red* Other: See Comments Cannot walk when [...] the following reflects his service. Scribed by Jae Adkins RN I agree with the Chief Complaint, ROS, and Past Histories independently gathered by the clinical it support specialist and the remaining scribed note accurately describes [...] December 13, 2022 documented in this encounter [place] 11-24-2022 Discharge summary Note Date/Time November 24, 2022 10:58am [facility] [address] [place] [address] Discharge Summary Signed Patient: Erin Canales MR#: [id number] : 1935 Acct:[id number] Age/Sex: 87 / F Adm Date: 3 Loc: Room: [address] [place] [address]: Danilo Drummond MD Copies to: [...] pain. She was diagnosed having non-ST elevation MT. She was seen by cigarette inspector who recommended cardiac catheter. Please refer to [...] ask her primary care doctor to obtain [facility] record entirely to address abnormalities seen on [...] % (Auto) 68.1, Lymph % (Auto) 20.3, [place] % (Auto) 8.8, Eos % (Auto) 1.7, Baso % (Auto) 1.1, Nucleat RBC Rel Count 0.1, Neut # (Auto) 4.0, Lymph # (Auto) 1.2, [place] # (Auto) 0.5, Eos # (Auto) 0.1, [...] oriented to place, time and person HEENT: [place] conjunctiva and NL buccal mucosa Neck: Supple, [...] with nurse for incision check in the [facility] Office on 11/29/2022 at 2:00pm. 2. Chest x-ray to be done the day of device check at [facility] on 02/19/2023. 3. Pacemaker/ICD clinic appointment at [facility] on 02/19/2023 at 10:00am . 4. Office visit with Mickey James NP in the [facility] Office on 02/26/2023 at 1:00pm. [] I may not have addressed or treated all of your medical illnesses or the abnormal blood work or imaging studies during this hospitalization. Please ask your primary care provider to obtain [facility] records entirely to follow up on all [...] or return. Discharging you from [facility] does not mean that your medical care [...] unit) Tablet 50 mcg PO DAILY omega 9-bsd-ipi-fish oil [Fish Oil] 1,000 mg (120 mg-180 [...] needed.) Documented By: Danilo Drummond MD 11/24/22 1058 Signed By: <Electronically signed by Danilo Drummond MD> 11/24/22 [facility] Work Phone: 1(453) 775-122508-17-2023 Progress note Author Danilo Drummond [facility] November 23, 2022 4:11pm Note Date/Time November 23, 2022 4: 11pm [facility] [address] [place] [address] Hospitalist Progress Note Signed Patient: Erin Canales MR#: [id number] : 1935 Acct:[id number] Age/Sex: 87 / F Adm Date: 3 Loc: Room: [address] [place] [address] Type: ADM IN Attending Dr: Danilo Drummond [...] oriented to place, time and person HEENT: [place] conjunctiva and NL buccal mucosa Neck: Supple, [...] Tablet PO 11/20/23 08:59 Not Given DAILY [facility] Aspirin 81 mg 11/19/22 09:00 11/23/22 09:01 Aspirin 81 Mg Tab.Chew PO 11/19/23 08:59 Not Given DAILY [facility] Clopidogrel Bisulfate 75 mg 11/18/22 09:00 11/23/22 09:01 Clopidogrel Bisulfate 75 Mg Tablet PO 11/18/23 08:59 Not Given DAILY [facility] Docusate Sodium 100 mg 11/22/22 11:42 Docusate 100 Mg Capsule PO 11/22/23 11:41 QHS PRN Constipation Sodium Chloride 1,000 mls @ 20 mls/hr 11/22/22 10:00 11/22/22 12:20 0.9% Sodium Chloride 1,000 Ml IV 11/22/23 09:59 20 mls/hr .Q24H [facility] Infusion Isosorbide Mononitrate 60 mg 11/18/22 09:00 11/23/22 09:01 Isosorbide Mononitrate 24hr Er 60 Mg Tab.Er.24h PO 11/18/23 08:59 Not Given DAILY [facility] Lisinopril 10 mg 11/18/22 09:00 11/22/22 07:56 Lisinopril 10 Mg Tablet PO 11/18/23 08:59 10 mg DAILY [facility] Administration Morphine Sulfate 4 mg 11/22/22 11:42 [...] signed by Danilo Drummond MD> 11/23/[address] [facility] Work Phone: 1(887) 344-531808-17-2023 Progress note Author W Anand [facility] November 23, 2022 11:21am Note Date/Time November 23, 2022 11 :21am [facility] [address] [place] [address] Cardiology Progress Note Signed Patient: Erin Canales MR#: [id number] : 1935 Acct:[id number] Age/Sex: 87 / F Adm Date: 3 Loc: Room: [address] [place] [address] Type: ADM IN Attending Dr: Danilo Drummond [...] 1118 Signed By: <Electronically signed by Pearl Michel DO> 11/23/22 112[address] [facility] Work Phone: 1(558) 299-628408-17-2023 [facility] Discharge instructions Additional Instructions SNF [...] with nurse for incision check in the [facility] Office on 11/29/2022 at 2:00pm. 2. Chest x-ray to be done the day of device check at [facility] on 02/19/2023. 3. Pacemaker/ICD clinic appointment at [facility] on 02/19/2023 at 10:00am . 4. Office visit with Mickey James NP in the [facility] Office on 02/26/2023 at 1:00pm. DISCHARGE INSTRUCTIONS FOR CARDIAC RN INTERNATIONAL PHONE NUMBER OF YOUR PHYSICIAN: [phone] PROCEDURE: Heart Cath The following instructions have [...] cold, numb, blue or white, call the cigarette inspector immediately. 4. ACTIVITY: You are advised to [...] bottle, follow the instructions on the bottle. [facility] is not responsible for incorrect prescription [...] primary care provider to obtain [facility] records entirely to follow up on all [...] or return. Discharging you from [facility] does not mean that your medical care ends here and now. You may still need additional monitoring, work up, investigation, and treatment plan to be handled from this point on by out patient providers including your primary care provider and specialists. For any medication question, please contact your retail pharmacist or your primary care provider. Thank you.[facility] Work Phone: 1([phone]) 969-606908-16-2023 Progress note Author Danilo Drummond [facility] November 22, 2022 8:50am Note Date/Time November 22, 2022 8: 50am [facility] [address] [place] [address] Hospitalist Progress Note Signed Patient: Erin Canales MR#: [id number] : 1935 Acct:[id number] Age/Sex: 87 / F Adm Date: 3 Loc: 3T Room: [address] [place] [address] Type: ADM IN Attending Dr: Danilo Drummond [...] oriented to place, time and person HEENT: [place] conjunctiva and NL buccal mucosa Neck: Supple, [...] Tab.Chew PO 11/19/23 08:59 Not Given DAILY JOHN Clopidogrel Bisulfate 75 mg 11/18/22 09:00 11/21/22 09:26 Clopidogrel Bisulfate 75 Mg Tablet PO 11/18/23 08:59 Not Given DAILY JOHN Docusate Sodium 100 mg 11/17/22 21:47 Docusate [...] 11/22/22 09:00 Lactated Ringers IV 11/22/22 23:17 .[id number] JOHN Isosorbide Mononitrate 60 mg 11/18/22 09:00 [...] signed by Danilo Drummond MD> 11/22/[address] [facility] Work Phone: 1(876) 759-241508-15-2023 Progress note Author Akhil Mcintyreadore [facility] November 21, 2022 2:54pm Note Date/Time November 21, 2022 2: 54pm [facility] [address] [place] [address] Cardiology Progress Note Signed Patient: Erin Canales MR#: [id number] : 1935 Acct:[id number] Age/Sex: 87 / F Adm Date: 3 Loc: Room: [address] [place] [address] Type: ADM IN Attending Dr: Danilo Drummond [...] By: <Electronically signed by MD Akhil Olivarez> 11/21/22 14[address] [facility] Work Phone: 1(357) 386-986608-15-2023 Progress note Author Danilo Drummond [facility] November 21, 2022 9:06am Note Date/Time November 21, 2022 9: 06am [facility] [address] [place] [address] Hospitalist Progress Note Signed Patient: Erin Canales MR#: [id number] : 1935 Acct:[id number] Age/Sex: 87 / F Adm Date: 3 Loc: Room: [address] [place] [address] Type: ADM IN Attending Dr: Danilo Drummond [...] oriented to place, time and person HEENT: [place] conjunctiva and NL buccal mucosa Neck: Supple, [...] treatment plan. Documented By: Danilo Drummond MD 11/21/22 0903 Signed By: <Electronically signed by Danilo Drummond MD> 11/21/[address] [facility] Work Phone: 1(136) 703-299908-14-2023 Progress note Author Danilo Drummond [facility] November 20, 2022 1:09pm Note Date/Time November 20, 2022 1: 06pm [facility] [address] [place] [address] Progress Note Signed Patient: Erin Canales MR#: [id number] : 1935 Acct:[id number] Age/Sex: 87 / F Adm Date: 3 Loc: Room: [address] [place] [address] Type: ADM IN Attending Dr: Danilo Drummond MD Copies to: ~ Date of Service: 11/20/2022 Progress Narrative Note PROGRESS NOTE Progress Note: I called her dtr Betty and gave her update on condition, status and tx plan. i answered all of her questions. She asked if she would qualify for pacemaker. I told her that I would leave it up to Dr Mcintyre to decide what needs to be done. Documented By: Danilo Drummond MD 11/20/22 1306 Signed By: <Electronically signed by Danilo Drummond MD> 11/20/[address] [facility] Work Phone: 1([phone]) 356-821908-14-2023 Progress note Author Akhil Mcintyreadore [facility] November 20, 2022 12:36pm Note Date/Time November 20, 2022 12 :36pm [facility] [address] [place] [address] Cardiology Progress Note Signed Patient: Erin Canales MR#: [id number] : 1935 Acct:[id number] Age/Sex: 87 / F Adm Date: 3 Loc: Room: [address] [place] [address] Type: ADM IN Attending Dr: Danilo Drummond [...] % (Auto) 65.5 Lymph % (Auto) 21.8 [place] % (Auto) 9.8 Eos % (Auto) 2.0 Baso % (Auto) 0.9 Nucleat RBC Rel Count 0.1 Neut # (Auto) 3.5 Lymph # (Auto) 1.2 [place] # (Auto) 0.5 Eos # (Auto) 0.1 [...] MPV Neut % (Auto) Lymph % (Auto) [place] % (Auto) Eos % (Auto) Baso % (Auto) Nucleat RBC Rel Count Neut # (Auto) Lymph # (Auto) [place] # (Auto) Eos # (Auto) Baso # [...] <Electronically signed by MD Akhil Olivarez> 11/20/22 [facility] Work Phone: 1(441) 962-383608-14-2023 Progress note Author W Anand [facility] November 20, 2022 11:23am Note Date/Time November 20, 2022 11 :21am [facility] [address] [place] [address] Cardiology Progress Note Signed Patient: Erin Canales MR#: [id number] : 1935 Acct:[id number] Age/Sex: 87 / F Adm Date: 3 Loc: Room: [address] [place] [address] Type: ADM IN Attending Dr: Danilo Drummond [...] % (Auto) 65.5 Lymph % (Auto) 21.8 [place] % (Auto) 9.8 Eos % (Auto) 2.0 Baso % (Auto) 0.9 Nucleat RBC Rel Count 0.1 Neut # (Auto) 3.5 Lymph # (Auto) 1.2 [place] # (Auto) 0.5 Eos # (Auto) 0.1 [...] MPV Neut % (Auto) Lymph % (Auto) [place] % (Auto) Eos % (Auto) Baso % (Auto) Nucleat RBC Rel Count Neut # (Auto) Lymph # (Auto) [place] # (Auto) Eos # (Auto) Baso # [...] Code(s): I25.10 - Atherosclerotic heart disease of [place] coronary artery without angina pectoris Status: Chronic Plan Cardiac cath Sunday. Documented By: Pearl Michel DO 11/20/221119 Signed By: <Electronically signed by Pearl Michel DO> 11/20/221122 [facility] Work Phone: 1(314) 668-364308-14-2023 Progress note Author Danilo Drummond [facility] November 20, 2022 8:07am Note Date/Time November 20, 2022 8: 07am [facility] [address] [place] [address] Hospitalist Progress Note Signed Patient: Erin Canales MR#: [id number] : 1935 Acct:[id number] Age/Sex: 87 / F Adm Date: 3 Loc: Room: [address] [place] [address] Type: ADM IN Attending Dr: Danilo Drummond [...] oriented to place, time and person HEENT: [place] conjunctiva and NL buccal mucosa Neck: Supple, [...] 11/20/22 08:15 Lactated Ringers IV 11/20/22 21:34 .[id number] JOHN Isosorbide Mononitrate 60 mg 11/18/22 09:00 11/19/22 [...] 10 Mg Tablet PO 11/21/23 07:59 DAILY@0800 [facility] Tramadol HCl 50 mg 11/17/22 21:47 Tramadol [...] Full code Documented By: Danilo Drummond MD 11/20/22804 Signed By: <Electronically signed by Danilo Drummond MD> 11/20/[address] [facility] Work Phone: 1([phone]) 393-698208-13-2023 Progress note Author Ailyn Meng [facility] November 19, 2022 3:01pm Note Date/Time November 19, 2022 11 :19am [facility] [address] [place] [address] Hospitalist Progress Note Signed Patient: Erin Canales MR#: [id number] : 1935 Acct:[id number] Age/Sex: 87 / F Adm Date: 3 Loc: Room: [address] [place] [address] Type: ADM INOo Attending Dr: Ailyn Meng [...] code Documented By: Ailyn Meng MD 11/19/22 1118 Signed By: <Electronically signed by Ailyn Meng MD> 11/19/[address] 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 Documented By: Akhil Olivarez MD 1104 Signed By: <Electronically signed by MD Akhil Olivarez> 11/19/22 16[address] [facility] Work Phone: 1(880) 237-953808-12-2023 Consult note Author Akhil Olivarez [facility] November 18, 2022 4:11pm Note Date/Time November 18, 2022 4: 11pm [facility] [address] [place] [address] Cardiology Consult Note Signed Patient: Erin Canales MR#: [id number] : 1935 Acct:[id number] Age/Sex: 87 / F Adm Date: 3 Loc: Room: [address] [place] [address] Type: ADM INOo Attending Dr: Ailyn Meng [...] and no additional complaints, except as documented [facility] Medical History (HFpEF) heart failure with preserved [...] PO DAILY 11/26/19 [History Confirmed 11/17/22] omega 1-nqf-mij-fish oil 1,000 mg (120 mg-180 mg) capsule [...] tablet (Vitamin C) 2,000 mg PO BID [id number]/16/23 [History Confirmed 11/17/22] aspirin 81 mg tablet,delayed release 81 mg PO 2XW 09/22/22 [History Confirmed 09/25/22] cartilage 40 mg-collagen II 10 mg-boron 5 mg-hyaluronate 3.3 mg tablet ([employer]) 1 tab PO DAILY 09/22/22 [History Confirmed [...] Lymph # (Auto) 1.0 1.2 (1.00-4.8) x10E3/uL [place] # (Auto) 0.5 0.5 (0.0-0.8) x10E3/uL Eos [...] Code(s): I25.10 - Atherosclerotic heart disease of [place] coronary artery without angina pectoris (3) Sinus [...] signed by MD Akhil Olivarez> 11/18/[address] [facility] Work Phone: 1([phone]) 930-715908-12-2023 Progress note Author Ailyn Meng [facility] November 18, 2022 1:17pm Note Date/Time November 18, 2022 12 :46pm [facility] [address] [place] [address] Hospitalist Progress Note Signed Patient: Erin Cnaales MR#: [id number] : 1935 Acct:[id number] Age/Sex: 87 / F Adm Date: 3 Loc: Room: [address] [place] [address] Type: ADM INOo Attending Dr: Ailyn Meng [...] L 16 116/67 96 Room Air 11/18/22 11:11/18/22 11:11/18/22 11:11/18/22 11:11/18/22 11:11/18/22 11:09 Narrative: General: Awake, A&O x [...] 123 7 Signed By: <Electronically signed by DO SAUL Nathan> 11/18/22 1316 <Electronically signed by Ailyn Meng MD> 11/18/[address] [facility] Work Phone: 1(489) 141-914308-12-2023 History and physical note Author Jamie Hathaway [facility] November 17, 2022 11:08pm Note Date/Time November 17, 2022 11 :00pm [facility] [address] [place] [address] Hospitalist H&P Signed Patient: Erin Canales MR#: [id number] : 1935 Acct:[id number] Age/Sex: 87 / F Adm Date: 3 Loc: Room: [address] [place] [address] Type: ADM INOo Attending Dr: Jamie Hathaway [...] negative except as noted in the HPI [facility] Medical History (HFpEF) heart failure with preserved [...] PO DAILY 11/26/19 [History Confirmed 09/25/22] omega 4-pkc-ndk-fish oil 1,000 mg (120 mg-180 mg) capsule [...] 10 mg-boron 5 mg-hyaluronate 3.3 mg tablet ([employer]) 1 tab PO DAILY 09/22/22 [History Confirmed [...] % (Auto) 17.1 % (.) 11/17/22 18:44 [place] % (Auto) 7.8 % (.) 11/17/22 18:44 Eos % (Auto) 0.8 % (.) 11/17/22 18:44 Baso % (Auto) 0.8 % (.) 11/17/22 18:44 Nucleat RBC Rel Count 0.2 /100 WBC (0-0.5) 11/17/22 18:44 Neut # (Auto) 4.3 x10E3/uL (1.8-7.7) 11/17/22 18:44 Lymph # (Auto) 1.0 x10E3/uL (1.00-4.8) 11/17/22 18:44 [place] # (Auto) 0.5 x10E3/uL (0.0-0.8) 11/17/22 18:44 [...] days): 1 Documented By: Jamie Hathaway MD 11/17/222255 Signed By: <Electronically signed by Jamie Hathaway MD> 11/17/22 [facility] Work Phone: 1(745) 838-240806-19-2023 Discharge summary Author Pearl Michel [facility] September 25, 2022 1:06pm Note Date/Time September 25, 2022 1:03 pm [facility] [address] [place] [address] Discharge Summary Signed Patient: Erin Canales MR#: [id number] : 1935 Acct:[id number] Age/Sex: 87 / F Adm Date: 3 Loc: Room: [address] [place] [address]: Pearl Michel DO Copies to: MD Pearl Sparks, DO~ Providers Date of Discharge: 09/25/22 Discharging Provider: Pearl Michel Primary Care Provider: [place] Discharge Diagnosis (1) CAD (coronary artery disease): [...] proximal circumflex with 2.5 x 30 mm Stanley without complications Patient will proceed with DAPT [...] p CL LHC & COR Angio - W Merlin Michel DO p CL Stent 1st Vessel CX COLBY - W Merlin Michel DO Complications Complications: None Diagnostic Studies [...] doctor or pharmacist, without first calling the cigarette inspector who implanted the stent. If you require [...] weight lifting, stair steppers, etc. until the cigarette inspector approves these activities. Check with the cigarette inspector on your first follow-up visit. CALL YOUR PHYSICIAN at [phone]: -If bleeding should occur from the catheter insertion site- apply pressure to the site then immediately call us. -Report any fever, redness, drainage, increased swelling, or firmness at the catheter insertion site. Some bruising or slight swelling may be present at thetime of discharge. -Should arm or leg become cold, numb, white, or blue, contact the cigarette inspector immediately. -IF you should experience episodes of [...] is recommended. Please call Central Scheduling at [phone] to schedule your appointment.] The attending cigarette inspector or [facility] nurse clinician should provide you with specific instructions regarding activity, diet, medications, and further follow up for you. Follow the medication instructions provided on your discharge. If the dosages and instructions on this sheet differ from the dosage and instructions on the bottle, follow the instructions on the bottle. [facility] is not responsible for incorrect prescription [...] unit) Tablet 50 mcg PO DAILY omega 6-ufa-qks-fish oil [Fish Oil] 1,000 mg (120 mg-180 [...] - Documented By: Pearl Michel DO 09/25/22 1252 Signed By: <Electronically signed by Pearl Michel DO> 09/25/22 3134 [facility] Work Phone: 1(209) 809-463706-19-2023 Procedure [facility]06-19-2023 Procedure [facility]05-19-2023 Note HNO ID: [id number] Author: Shweta Sol MD Service: ? 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 This developed in October 2021. She had surgery on her lower eye lid, she has tried therapy and steroids with no improvement. She has difficulty eating and drinking, sleeping and even smelling due to the facial drooping. PAST MEDICAL HISTORY Diagnosis Date MGUS (monoclonal gammopathy of unknown significance) No past surgical history on file. AMITRIPTYLINE 25 mg tablet Take 25 mg by mouth daily at bedtime. DIGOXIN (DIGITEK ORAL) Take 0.125 mg by mouth. carvedilol (COREG) 6.25 mg tablet Take 1 tablet by mouth twice daily. lisinopril 5 mg tablet Take 10 mg by mouth once daily. Allergies: ALLERGIES Allergen Reactions Motrin [Ibuprofen] Unknown No family history on [...] like to have both of these addressed. From a timeframe it would be appropriate to do a masseter transfer or gracilis free flap however given her quite severe cardiovascular disease with history of multiple stents and being on Coumadin she is not an appropriate candidate especially given that 1 would not expect an 87-year-old to regain adequate neurologic function through the grafting. With that as a baseline, the other 2 options would include a static repair with either tensor fascia flory from the left thigh or palmaris longus from the right wrist which was noted to be there on exam. I would lean towards palmaris longus as she has fairly heavy thighs which would require a large incision to harvest the fascia flory and she is interested in minimizing surgery and recovery. A gold weight would be appropriate for the left upper eyelid and I did not have trial weights here but could be done just prior to surgery. From the standpoint of the tendon grafting this would require a preauricular incision to gain access to the zygoma where the palmaris could be looped and then taken down to the level of the commissure where it could be split going to the midline of the upper and lower lip and converging at the commissure itself to pull the mouth more towards the midline. Any of these options will require cardiac clearance as her risks are certainly significant compared to the potential benefits from the outlined procedures. Ultimately the gold weight could be done under local if that is the only operation approved by cardiology. Any of these options will require the patient to be off Coumadin for the perioperative period 5 days before and it could be started 1 day after. The patient is seen and examined by Dr. Sol and the following reflects his service. Scribed by Geeta Archer RN I agree with the Chief Complaint, ROS, and Past Histories independently gathered by the clinical it support specialist and the remaining scribed note accurately describes my personal service to the patient. 30 Minutes total visit spent face to face with patient. Greater than 50% of the time was spent for counseling and coordination of care, dis (more content not included)...[facility] [id number] Consult note Author Geeta Bourgeois [facility] October 29, 2021 11:14am Note Date/Time October 29, 2021 10:0 8am [facility] [address] [place] [address] Neurology Consult Note Signed Patient: Erin Canales MR#: [id number] : 1935 Acct:[id number] Age/Sex: 86 / F Adm Date: 2 Loc: Room: [address] [place] [address] Type : ADM INOo Attending Dr: Kale Ross MD Copies to: MD Geeta Underwood DO Pamela Sue Cramer, CELLAR PUMPER~ HPI Consult Date: 10/29/21 Ad Setter: Geeta Bourgeois DO Reason for consult: weakness [...] that she evencleaned her house this last Sun. She staets that she came in because [...] Medical History (Updated 10/28/21 @ 16:08 by Jayme Madrid, ANP-) (HFpEF) heart failure with preserved ejection fraction [...] PO DAILY 11/26/19 [History Confirmed 10/28/21] omega 1-srs-rbq-fish oil 1,000 mg (120 mg-180 mg) capsule [...] of dysmetria with good rapid alternating movements [id number] Tone is physiologic Patient is intact to [...] Estrada Jr., D.O.10/28/2021 7:31 PM Dictation Location: [place] [address] Head CTA 10/28/21 12:09 IMPRESSION: 1. Noncontrast [...] Estrada Jr., D.O.10/28/2021 1:35 PM Dictation Location: [place] [address] Therapy Recommendations Therapy Recommendations: OT Recommendations OT [...] MRA and CTA that showed a left RADIOLOGY TRANSCRIPTIONIST occlusion versus hypoplasia but really there is [...] stroke MRA and CTA showed the left RADIOLOGY TRANSCRIPTIONIST occlusion versus hypoplasia but no other significant [...] <Electronically signed by DO Geeta Bourgeois> 10/29/[address] [facility] Work Phone: 1(254) 818-970407-22-2022 Progress note Author Kale Ross [facility] October 28, 2021 4:56pm Note Date/Time October 28, 2021 11:5 2am [facility] [address] [place] [address] Hospitalist Progress Note Signed with Silvana Patient: Erin Canales MR#: [id number] : 1935 Acct:[id number] Age/Sex: 86 / F Adm Date: 2 Loc: 3T Room: [address] [place] [address] Type : ADM INOo Attending Dr: Kale Ross MD Copies to: ~ ADDENDUM1 I personally saw this patient on the day of the encounter, reviewed the history,performed the turner elements of the exam and formulated the plan of care and confirmed the nurse practitioners/residents/dietetic intern written note. Addendum Documented By: Kale [...] completing dosing today. She is reportingpain left orthodox to ear area that is alleviated with [...] Freq PRN Reason Stop Dose Admin Acetaminophen 650 [...] URI 10/21 Recent UTI Enterococcus Faecalis 10/21 Wilton Palsy, left sided 10/25 ?new meds this [...] 2 1152 Signed By: <Electronically signed by ANP- Jayme Madrid> 10/28/21 1616 <Electronically signed by Kale Ross MD> 10/28/21 1653 [facility] Work Phone: 1(858) 212-982907-22-2022 History and physical note Author Nguyễn Langston [facility] October 28, 2021 4:55am Note Date/Time October 28, 2021 4:55 am [facility] [address] [place] [address] Hospitalist H&P Signed Patient: Erin Canales MR#: [id number] : 1935 Acct:[id number] Age/Sex: 86 / F Adm Date: 2 Loc: ER Room: Type: [facility] Attending Dr: Copies to: Hani MD Summer Gastelum, JUAN CARLOS Locke Jr, MD~ HPI DATE [...] PO DAILY 11/26/19 [History Confirmed 10/25/21] omega 7-vmo-bzi-fish oil 1,000 mg (120 mg-180 mg) capsule [...] % (Auto) 13.2 % (.) 10/28/21 01:45 [place] % (Auto) 7.6 % (.) 10/28/21 01:45 Eos % (Auto) 0.0 % (.) 10/28/21 01:45 Baso % (Auto) 0.5 % (.) 10/28/21 01:45 Neut # (Auto) 4.6 x10E3/uL (1.8-7.7) 10/28/21 01:45 Lymph # (Auto) 0.8 x10E3/uL (1.00-4.8) L 10/28/21 01:45 [place] # (Auto) 0.4 x10E3/uL (0.0-0.8) 10/28/21 01:45 [...] pH 6.0 (5.0-9.0) 10/28/21 03:00 Ur Specific [place] 1.012 (1.001-1.030) 10/28/21 03:00 Urine Protein Negative [...] signed by Nguyễn Lopez MD> 10/28/[address] [facility] Work Phone: [phone] 531-747807-22-2022 History and physical note Author Nguyễn Langston [facility] October 28, 2021 4:55am Note Date/Time October 28, 2021 4:55 am [facility] [address] [place] [address] Hospitalist H&P Signed Patient: Erin Canales MR#: [id number] : 1935 Acct:[id number] Age/Sex: 86 / F Adm Date: 2 Loc: ER Room: Type: [facility] Attending Dr: Copies to: MD Summer Benrard, JUAN CARLOS Locke Jr, MD~ HPI DATE [...] PO DAILY 11/26/19 [History Confirmed 10/25/21] omega 6-swb-kyb-fish oil 1,000 mg (120 mg-180 mg) capsule [...] % (Auto) 13.2 % (.) 10/28/21 01:45 [place] % (Auto) 7.6 % (.) 10/28/21 01:45 Eos % (Auto) 0.0 % (.) 10/28/21 01:45 Baso % (Auto) 0.5 % (.) 10/28/21 01:45 Neut # (Auto) 4.6 x10E3/uL (1.8-7.7) 10/28/21 01:45 Lymph # (Auto) 0.8 x10E3/uL (1.00-4.8) L 10/28/21 01:45 [place] # (Auto) 0.4 x10E3/uL (0.0-0.8) 10/28/21 01:45 [...] pH 6.0 (5.0-9.0) 10/28/21 03:00 Ur Specific [place] 1.012 (1.001-1.030) 10/28/21 03:00 Urine Protein Negative [...] Lovenox Documented By: Nguyễn Lopez MD 2 4273 Signed By: <Electronically signed by Nguyễn Lopez MD> 10/28/21 0457 [facility] Work Phone: Evaluation + Plan note No data available for this section [facility] Diagnosis Onset Date Resolution Status Chronic anticoagulation acut e Dehydration acute Dizziness acute Generalized weakness acute History of atrial fibrillation acute Hypertension acute Impaired mobility and activities of daily living acute 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 CAD (coronary artery disease) chronic [facility] Work Phone: Evaluation note* Diagnosis Onset Date Resolution Status Chronic anticoagulation acut e Dehydration acute Dizziness acute Generalized weakness acute History of atrial fibrillation acute Hypertension chronic Impaired mobility and activities of daily living acute 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 CAD (coronary artery disease) chronic [facility] Work Phone: Evaluation noteNo assessment information available [facility] Work Phone: Evaluation note* Diagnosis Onset Date Resolution Status Chest pain acute [facility] Work Phone: Evaluation note* Diagnosis Onset Date Resolution Status Angina pectoris acute Chest pain acute History of heart artery stent acute Hypertension chronic Hyponatremia acute Paroxysmal atrial fibrillation acute Sinus bradycardia acute CAD (coronary artery disease) chronic [facility] Work Phone: Evaluation note* Diagnosis Alvarado's palsy- Primary Alvarado's palsy Drooping of mouth documented in this encounter [place]* Diagnosis Arteriosclerosis of coronary artery- Primary Paroxysmal atrial fibrillation (CMS/HCC) 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 She is doing well. She has no complaints whatsoever. Arr hythmia control is excellent sinus rhythm is maintained [...] merits of diet and weight loss were reviewed.[place] [address] DO Work Phone: History of Present illness [...] appears no adjustments are necessary at this time.[place] [address] DO Work Phone: History of Present illness [...] no adjustments are necessary at this time.[facility] 250 DO Work Phone: History of Present [...] merits of diet exercise and weight loss. [facility] KXEN DO Work Phone: History of Present illness [...] merits of diet and weight loss werereviewed. [facility] KXEN DO Work Phone: History of Present illness [...] medication regimen. She denies medication side effects. [facility] Work Phone: History of Present illness [...] of diet and weight loss were advocated. -[facility] 250 DO Work Phone: History of [...] of diet and weight loss were advocated. [facility] 600 DO Work Phone: History of Present [...] of diet and weight loss were advocated. -[facility] KXEN DO Work Phone: History of Present illness [...] weight loss and she understands our recommendation. -[facility] KXEN DO Work Phone: History of Present illness [...] weight loss and she understands our recommendation. -[facility] 250 DO Work Phone: [facility] Work Phone: Hospital Discharge instructionsAmbulatory Orders* Initiate Home Health Time Frame: 1 Day, Location: Determined By Patient * PT/OT/SP OutPatient Referral Time Frame: 1 Day, Location: Determined By Patient Additional Instructions Home Health to manage care: - Full code - PT/OT eval and treat - Routine vital signs - Medication management and education -[facility] Work Phone: [facility] Work Phone: Hospital Discharge instructions No data available for this section [facility] Additional Instructions DISCHARGE INSTRUCTIONS [...] doctor or pharmacist, without first calling the cigarette inspector who implanted the stent. If you require [...] weight lifting, stair steppers, etc. until the cigarette inspector approves these activities. Check with the cigarette inspector on your first follow-up visit. CALL YOUR PHYSICIAN at [phone]: -If bleeding should occur from the catheter insertion site- apply pressure to the site then immediately call us. -Report any fever, redness, drainage, increased swelling, or firmness at the catheter insertion site. Some bruising or slight swelling may be present at the time of discharge. -Should arm or leg become cold, numb, white, or blue, contact the cigarette inspector immediately. -IF you should experience episodes of [...] is recommended. Please call Central Scheduling at [phone] to schedule your appointment.] The attending cigarette inspector or [facility] nurse clinician should provide you with specific instructions regarding activity, diet, medications, and further follow up for you. Follow the medication instructions provided on your discharge. If the dosages and instructions on this sheet differ from the dosage and instructions on the bottle, follow the instructions on the bottle. [facility] is not responsible for incorrect prescription information provided by the patient during their visit. Do not stop your medications without consulting your health care provider. Please take the list with you to your next doctor's appointment.[facility] Work Phone: Progress note No data available for this section [facility] AdministrationReason for referral (narrative)* Consultation (Routine) - Authorized Specialty Diagnoses / Procedures Referred By Mary t Referred To Contact Cardiology Diagnoses Arteriosclerosis of coronary artery Procedures Follow Up In Cardiology Mickey James APRN-CNP [address] [facility] [address], [address] [address] Akhil Olivarez MD [facility] [facility] [address], [address] [address] Referral ID Status Reason Start Date Expiration Date V isits Requested Visits Authorized [id number] Authorized 02/26/2023 02/26/2024 1 1 * Cardiovascular (Routine) - Pending Review Specialty Diagnoses / Procedures Referred By Mary spears Referred To Contact Diagnoses Paroxysmal atrial fibrillation (CMS/HCC) High risk medication use Procedures ECG 12 lead (Clinic Performed) Mickey James APRN-CNP [facility] [facility] [address], [address] [address] Referral ID Status Reason Start Date Expiration Date V isits Requested Visits Authorized [id number] Pending Review 02/26/2023 02/26/2024 1 1 [facility] Work Phone: Summary Purpose Family History No [...] Relationship Condition Age at Onset Recorded Date/T evto father Coronary artery disease Unknown Not Specified [...] disease Unknown brother Neoplasm of brain Unknown father Unknown Not Specified Unknown Advance Directives No Advanced Directives Records Found Advance Directive Response Recorded Date/ Time Advance Directives No March 14, 2017 2:30pm Advance Directive Response Recorded Date/ Time Advance Directives No March 14, 2017 1:30pm Chief Complaint ERIN CANALES is being seen for a 6 month follow-up of.Order sent to [facility] for testing due in AprilMARIRVIN CANALES is being seen for a 6 month follow-up of. ERIN CANALES is being seen for a 6 month follow-up of.Amiodarone Order sent to [facility] for testing due in results.ERIN CANALES is [...] test done please contact our office at [phone] and press option #4 so that we may assist you in the problems. * Thank you for your compliance with this testing. * The Staff * [facility] * Please have done June 2022 * [...] lot. 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 and the other she cannot recall -reports [...] artery disease) Chief Complaint i48.0 z79.899 PT preferably;Wilton palsy Chief Complaint PT preferably;Wilton palsy Angina, Cardiomyopathy, HTN Chief Complaint PT preferably;Wilton palsy Angina, Cardiomyopathy, HTN Angina, Cardiomyopathy, HTN [...] bradycardia CAD (coronary artery disease) Chief Complaint I48.0 z79.899 sss Additional Source Comments INFORMATION SOURCE (unrecogn ized section and content) DATE CREATED AUTHOR 10/03/2017 [facility] DATE CREATED AUTHOR AUTHOR'S ORGANIZ ATION 08/04/2022 [employer] DATE CREATED AUTHOR AUTHOR'S ORGANIZ ATION 09/18/[address] [facility] DATE CREATED AUTHOR AUTHOR'S ORGANIZ ATION 09/18/2022 [facility] DATE CREATED AUTHOR AUTHOR'S ORGANIZ ATION 01/21/2023 [facility] DATE CREATED AUTHOR AUTHOR'S ORGANIZ ATION 02/28/2023 [facility] DATE CREATED AUTHOR AUTHOR'S ORGANIZ ATION 04/06/2023 [facility] DATE CREATED AUTHOR AUTHOR'S ORGANIZ ATION 04/26/2023 [facility] DATE CREATED AUTHOR AUTHOR'S ORGANIZ ATION 05/21/2023 [facility] DATE CREATED AUTHOR AUTHOR'S ORGANIZ ATION 05/30/2023 [facility] Reason for Visit (unrecogniz ed section and content) Reason Comments Follow Up Reason Comments Follow-up S/p pm insert Specialty Diagnoses / Procedures Referred By Contyeni t Referred To Contact Diagnoses Paroxysmal atrial fibrillation (CMS/HCC) High risk medication use Procedures ECG 12 lead (Clinic Performed) Mickey James, RIB MATCHER AND FITTER-CELLAR PUMPER [facility] [facility], [address] [place] [address] Referral ID Status Reason Start Date Expiration Date V isits Requested Visits Authorized [id number] Pending Review 02/26/2023 02/26/2024 1 1 Reason Comments General Questions Reason Comments Post Op Left eye wts Care Teams (unrecognized sec tion and content) Team Status: Inactive Member Role Status Dates Summer Tidwell LINUX ADMIN-C Primary Care Provider Active Razia Munoz MD RES Active Guillermo Sanders DO Emergency Provider Active Team Status: Active Member Role Status Dates Summer Tidwell NP-C Primary Care Provider Active Stephanie Locke Jr, MD Emergency Provider Active Nguyễn Lopez MD Admit Provider, Dianne goldstein Active Team Status: Inactive Member Role Status Dates Summer Tidwell NP-C Primary Care Provider Active Pramod Bess DO Emergency Provider Active Team Status: Active Member Role Status Dates Summer Tdiwell NP-C Primary Care Provider Active Team Status: Inactive Member Role Status Dates Summer Tidwell NP-C Primary Care Provider Active Stephanie Locke Jr, MD Emergency Provider Active Nguyễn Lopez MD Admit Provider Active Kale Ross MD Attending Provider Active Matt Servin DO Other Provider Active Team Status: Inactive Member Role Status Dates Summer Tidwell , LINUX ADMIN-C Primary Care Provider Active Akhil Olivarez MD Attending Provider Active Team Status: Inactive Member Role Status Dates Summer Tidwell , LINUX ADMIN-C Primary Care Provider Active Doug Montana MD Attending Provider Active Team Status: Inactive Member Role Status Dates Summer Tidwell , LINUX ADMIN-C Primary Care Provider Active Myron Villarreal DO Emergency Provider Active Team Status: Active Member Role Status Dates Summer Tidwell , LINUX ADMIN-C Primary Care Provider Active Elizabeth Zimmerman APRN LINUX ADMIN-C Attending Provider A ctive Team Status: Inactive Member Role Status Dates Summer Tidwell LINUX ADMIN-C Primary Care Provider Active Elizabeth Zimmerman APRN LINUX ADMIN-C Attending Provider A ctive Team Status: Active Member Role Status Dates Los Chaudhary MD Primary Care Provider Active Team Status: Inactive Member Role Status Dates Pearl Michel DO Attending Provider Active Los Chaudhary MD Primary [...] Active Akhil Olivarez MD Attending Provider Active 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 Relationship Specialty Start Date End Date Los Chaudhary MD [address] [place] [address] PCP - General Family Medicine 12/05/22 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 Relationship Specialty Start Date End Date Los Chaudhary MD [address] [place] [address] PCP - General 07/05/22 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 Relationship Specialty Start Date End Date Los Chaudhary MD [address] [facility] [place] [address] PCP - General Family Medicine 12/05/22 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 Relationship Specialty Start Date End Date Los Chaudhary MD [address] [facility] [place] [address] PCP - General Family Medicine 12/05/22 Team Status: Inactive Member Role Status Dates Los Chaudhary MD Primary Care Provider Active Start: May 15, 2023 End: May 15, 2023 Akhil Olivarez MD Attending Provider Active Start: May 15, 2023 End: May 15, 2023 Team Status: Inactive Member Role Status Dates Los Chaudhary MD Primary Care Provider Active Start: May 22, 2023 End: May 22, 2023 Akhil Olivarez MD Attending Provider Active Start: May 22, 2023 End: May 22, 2023 Goals (unrecognized section and content) Goals may be documented in a n alternate section No data available for this sectionGoals may be documented in an alternate sectionGoals may be documented in an alternate sectionGoals may be documented in an alternate section No data available for this sectionGoals may be documented in an alternate section Source Comments (unrecognize d section and content) In the event this informatio n is protected by the Federal Confidentiality of Alcohol and Drug Abuse Patient Records regulations: The Federal rules restrict any use of the information to criminally investigate or prosecute any alcohol or drug abuse patient.[place] the event this information is protected by the Federal Confidentiality of Alcohol and Drug Abuse Patient Records regulations: The Federal rules restrict any use of the information to criminally investigate or prosecute any alcohol or drug abuse patient.[place] the event this information is protected by the Federal Confidentiality of Alcohol and Drug Abuse Patient Records regulations: The Federal rules restrict any use of the information to criminally investigate or prosecute any alcohol or drug abuse patient.[place] FOR RECORDS PERTAINING TO PATIENTS WHO ARE [...] BE BASED ON THE PRIMARY CLINICAL RECORDS. [facility] [employer] [facility]. provides no warranty or guarantee of the accuracy or completeness of information in this document.
--- NOTE | 2023-06-05 13:44 | XR_ITS ---
The [address] [address] Patient Name: MAGGIE CANALES MRN: [id number] date: 1935 Sex: F Assigned Patient Location: [facility] Current Patient Location: [facility] Accession/Order Number: [id number] Exam Date: 06/05/2023 13:45 Report Date: 06/05/2023 14:18 At the request of: LOS CHAUDHARY Procedure: XR lumbar spine 2-3V EXAMINATION: XR lumbar spine 2-3V HISTORY: Lumbar Pain M54.50 COMPARISON: No relevant comparison available. FINDINGS: BONES: Thoracolumbar levocurvature centered at L1-L2. Moderate to severe degenerative spondylosis and facet osteoarthropathy DISC SPACES: Moderate to severe multilevel disc space narrowing with endplate sclerosis PARASPINOUS: Negative. No paraspinous abnormality is seen. OTHER: Extensive vascular calcifications XR/XR lumbar spine 2-3V IMPRESSION: Stable moderate to severe degenerative changes Electronically authenticated by: ILSA COYLE Date: 06/05/2023 14:18
== END 2023-06-05 12:39 | disposition home or self-care (01) ==
LOC: RAD 12:44
PROVIDERS: PCP Family Medicine; Visit Provider Family Medicine
DX: M54.50 Low back pain, unspecified (principal)
CPT/HCPCS: 72100

== ENCOUNTER 2023-06-08 01:17 | Outpatient (RCR) | payer OTHER, SELFPAY | END 2023-07-06 13:27 | disposition home or self-care (01) | LOC: MM 01:17 | PROVIDERS: PCP Family Medicine; Visit Provider Internal Medicine | DX: Z51.81 Encounter for therapeutic drug level monitoring (principal); Z79.01 Long term (current) use of anticoagulants; I48.0 Paroxysmal atrial fibrillation | CPT/HCPCS: 85610; G0463 ==

== ENCOUNTER 2023-06-19 12:52 | Outpatient (OUT) | payer OTHER, SELFPAY ==
--- NOTE | 2023-06-19 12:55 | CT_ITS ---
[address] [address] Patient Name: MAGGIE CANALES MRN: [id number] date: 1935 Sex: F Assigned Patient Location: CT Current Patient Location: CT Accession/Order Number: [id number] Exam Date: 06/19/2023 13:05 Report Date: 06/19/2023 14:02 At the request of: LOS CHAUDHARY Procedure: CT lumbar spine wo con EXAMINATION: CT lumbar spine wo con HISTORY: lumbar pain M54.50 COMPARISON: No relevant comparison available. TECHNIQUE: Axial, Coronal, and Sagittal CT images were created without I.V. contrast material. Dose reduction techniques were achieved by using automated exposure control and/or adjustment of mA and/or kV according to patient size and/or use of iterative reconstruction technique. FINDINGS: PARASPINAL AREA: Extensive atherosclerosis. BONES: No spondylolisthesis. Mild levocurvature centered at L1 Moderate diffuse degenerative spondylosis and facet osteoarthropathy. Contour deformity superior endplate of the L3 vertebral body. DISC LEVELS: 12-L1: Disc collapse with endplate sclerosis. Mild diffuse disc/osteophyte complex. No central canal or left foraminal stenosis. Moderate narrowing of the right neural foramen L1-L2: Disc collapse with endplate sclerosis. Mild diffuse disc/osteophyte complex. No central canal or left foraminal stenosis. Moderate narrowing of the right neural foramen L2-L3: Moderate disc space narrowing with vacuum disc. Mild diffuse disc/osteophyte complex and facet osteoarthropathy. No central canal stenosis. Minimal bilateral foraminal stenosis, right greater than left L3-L4: Mild disc/osteophyte complex. No central or foraminal stenosis L4-L5: Moderate disc space narrowing, with collapse on the left. Moderate disc/osteophyte complex. No central canal or right foraminal stenosis. Moderate narrowing of the left neural foramen L5-S1: Asymmetric disc space narrowing, left greater than right. No central or foraminal stenosis CT/CT lumbar spine wo con IMPRESSION: Degenerative changes with foraminal stenosis at multiple levels as detailed above Electronically authenticated by: ILSA COYLE Date: 06/19/2023 14:02
== END 2023-06-19 12:53 | disposition home or self-care (01) ==
LOC: CT 12:52
PROVIDERS: PCP Family Medicine; Visit Provider Family Medicine
DX: M54.50 Low back pain, unspecified (principal); M51.36 Other intervertebral disc degeneration, lumbar region
CPT/HCPCS: 72131

== ENCOUNTER 2023-07-09 00:10 | Outpatient (RCR) | payer OTHER, SELFPAY | END 2023-08-07 17:54 | disposition home or self-care (01) | LOC: MM 00:10 | PROVIDERS: PCP Family Medicine; Visit Provider Internal Medicine | DX: Z51.81 Encounter for therapeutic drug level monitoring (principal); Z79.01 Long term (current) use of anticoagulants; I48.91 Unspecified atrial fibrillation ==

== ENCOUNTER 2023-07-20 08:35 | Emergency (ER) | payer OTHER, SELFPAY ==
[2023-07-20 08:44] VITALS: BP 146/92; PULSE 94; TEMP 36.8; O2SAT 98; BMI 31.1
--- NOTE | 2023-07-20 09:07 | XR_ITS ---
The [address] [address] Patient Name: MAGGIE CANALES MRN: [id number] date: 1935 Sex: F Assigned Patient Location: ER Current Patient Location: ER Accession/Order Number: [id number] Exam Date: 07/20/2023 09:20 Report Date: 07/20/2023 09:38 At the request of: SALVATORE MERRITT Procedure: XR abdomen 1V EXAMINATION: XR abdomen 1V HISTORY: poss constipation , abdominal pain COMPARISON: No relevant comparison available. FINDINGS: BOWEL GAS PATTERN: Moderate-large amount of stool throughout colon, with air within rectum. No abnormal bowel dilation or findings to suggest obstruction. CALCIFICATIONS: No convincing urinary tract calculi. OTHER: Levocurvature and degenerative changes of lumbar spine. Marked joint space narrowing of right hip. Prior left femoral neck repair. XR/XR abdomen 1V IMPRESSION: 1. Moderate to large stool burden without obstruction. 2. Moderate- marked degenerative changes of lumbar spine and right hip joint. Electronically authenticated by: SHWETA HERNANDEZ Date: 07/20/2023 09:38
--- NOTE | 2023-07-20 10:00 | ED.GENADUL1 ---
HPI HPI - General Adult General Chief complaint: Abdominal Pain Stated complaint: CONSTIPATION Time Seen by Provider: 07/20/23 08:43 Source: patient and family Mode of arrival: Wheelchair Limitations: no limitations History of Present Illness HPI narrative: 88-year-old female presents for constipation. She has no symptoms such as abdominal pain. She has been taking lactulose and MiraLAX and 2 days ago had sized bowel movement but has not had any since then. She has been eating.No blood in the stool. Related Data Home Medications ?Medication ?Instructions ?Recorded ?Confirmed amiodarone 200 mg tablet 100 mg PO Q24H 11/06/22 11/06/22 aspirin 81 mg tablet,delayed 81 mg PO DAILY 11/06/22 11/06/22 release (Adult Low Dose Aspirin) calcium carbonate 600 mg-vitamin 1 tab PO BID 11/06/22 11/06/22 D3 20 mcg (800 unit) chewable tablet (Caltrate 600 plus D) cholecalciferol (vitamin D3) 50 50 mcg PO DAILY 11/06/22 11/06/22 mcg (2,000 unit) capsule (Vitamin D3) clopidogrel 75 mg tablet 75 mg PO DAILY 11/06/22 07/20/23 isosorbide mononitrate 60 mg 60 mg PO DAILY 11/06/22 11/06/22 tablet,extended release 24 hr lisinopril 10 mg tablet 10 mg PO DAILY 11/06/22 11/06/22 nitroglycerin 0.4 mg sublingual 0.4 mg sublingual Q5M PRN chest 11/06/22 11/06/22 tablet pain nortriptyline 25 mg capsule 25 mg PO DAILY 11/06/22 11/06/22 omega 3 350 mg-dha 235 mg-epa 90 1 cap PO DAILY 11/06/22 11/06/22 mg-fish oil 597 mg capsule,delay rel ([place]-3) torsemide 5 mg tablet 10 mg PO DAILY 11/06/22 11/06/22 vitamin B complex (B 1 tab PO DAILY 11/06/22 11/06/22 Complex-Vitamin B12 tablet) warfarin 3 mg tablet 3 mg PO DAILY 11/06/22 07/20/23 lactulose 10 gram/15 mL oral 15 ml PO BID PRN pain 07/20/23 07/20/23 solution tramadol 50 mg tablet 50 mg PO Q8H PRN pain 07/20/23 07/20/23 Allergies Allergy/AdvReac Type Severity Reaction Status Date / Time ibuprofen Allergy Intermediate Hives Verified 07/20/23 08:46 Kpjwazd-FUA-GzN Reductase AdvReac Mild myalgia Verified 07/20/23 08:46 Inhibitor betablockers AdvReac bradycardia Uncoded 07/20/23 08:46 Opioid HPI Opioid Management Most Recent Opioid Data: No Data to Display Review of Systems ROS Narrative A ten point review of systems is negative except as noted above. 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) Angina pectoris ?I20.9 - Angina pectoris, unspecified (ICD-10) Obesity ?E66.9 - Obesity, unspecified (ICD-10) Cardiomyopathy ?I42.9 - Cardiomyopathy, unspecified (ICD-10) Mitral regurgitation ?I34.0 - Nonrheumatic mitral (valve) insufficiency (ICD-10) Hyperlipidemia ?E78.5 - Hyperlipidemia, unspecified (ICD-10) Hypertension ?I10 - Essential (primary) hypertension (ICD-10) Coronary artery disease ?I25.10 - Atherosclerotic heart disease of [place] coronary artery without angina pectoris (ICD-10) Surgical History (Updated 11/06/22 @ 13:07 by Jamie Locke RN) History of hip surgery ?Z98.890 - Other specified postprocedural states (ICD-10) Stented coronary artery ?Z95.5 - Presence of coronary angioplasty implant and graft (ICD-10) Exam Narrative Exam Narrative: Nurses note and vital signs reviewed and patient is not hypoxic. General: The patient appears well and in no apparent distress. Patient is resting comfortably on cart. Skin: Warm, dry, no pallor noted. There is no rash noted. Head: Normocephalic, atraumatic Eye: Normal conjunctiva, no drainage Ears, Nose, Mouth, and Throat: oral mucosa is moist. Nares patent. Cardiovascular: Regular Rate and Rhythm Respiratory: Patient is in no distress, no accessory muscle use, lungs are clear to auscultation, no wheezing, rales or rhonchi Back: non-tender GI: Normal bowel sounds, no tenderness to palpation, no masses appreciated. No rebound, guarding, or rigidity noted. Musculoskeletal: The patient has no evidence of calf tenderness, no pitting edema, symmetrical pulses noted bilaterally Neurological: Awake and alert. Chronic facial droop present. Psychiatric: Cooperative Constitutional Vital Signs, click to edit/add: Last Vital Signs Temp 98.2 F 07/20/23 08:44 Pulse 94 H 07/20/23 08:44 Resp 18 07/20/23 08:44 BP 146/92 H 07/20/23 08:44 Pulse Ox 98 07/20/23 08:44 O2 Del Method Room Air 07/20/23 08:44 Course Vital Signs Vital signs: Vital Signs Temperature 98.2 F 07/20/23 08:44 Pulse Rate 94 H 07/20/23 08:44 Respiratory Rate 18 07/20/23 08:44 Blood Pressure 146/92 H 07/20/23 08:44 Pulse Oximetry 98 07/20/23 08:44 Oxygen Delivery Method Room Air 07/20/23 08:44 Temperature 98.2 F 07/20/23 08:44 Pulse Rate 94 H 07/20/23 08:44 Respiratory Rate 18 07/20/23 08:44 Blood Pressure 146/92 H 07/20/23 08:44 Pulse Oximetry 98 07/20/23 08:44 Oxygen Delivery Method Room Air 07/20/23 08:44 Medical Decision Making MDM Narrative Medical decision making narrative: X-ray findings are discussed with the patient and she is sent home with a bottle of magnesium citrate. Treatment diagnosis and follow-up were discussed with the patient and her family. Imaging Data Abdominal x-ray: Radiologist's impression: ITS Impressions Abdomen X-Ray 07/20/23 09:07 IMPRESSION: 1. Moderate to large stool burden without obstruction. 2. Moderate- marked degenerative changes of lumbar spine and right hip joint. Electronically authenticated by: SHWETA HERNANDEZ Date: 07/20/2023 09:38 Discharge Plan Discharge Stand Alone Forms: Portal Instructions Chief Complaint: Abdominal Pain Clinical Impression: Constipation Patient Disposition: Home, Self-Care Time of Disposition Decision: 09:58 Condition: Good Mode of Transportation: Private Vehicle Prescriptions / Home Meds: No Action lactulose 10 gram/15 mL solution 15 ml PO BID PRN (Reason: pain) tramadol 50 mg tablet 50 mg PO Q8H PRN (Reason: pain) amiodarone 200 mg tablet 100 mg PO Q24H clopidogrel 75 mg tablet 75 mg PO DAILY isosorbide mononitrate 60 mg tablet extended release 24 hr 60 mg PO DAILY aspirin [Adult Low Dose Aspirin] 81 mg tablet,delayed release (DR/EC) 81 mg PO DAILY torsemide 5 mg tablet 10 mg PO DAILY warfarin 3 mg tablet 3 mg PO DAILY [place]-3 350 mg-235 mg- 90 mg-597 mg capsule,delayed release(DR/EC) 1 cap PO DAILY lisinopril 10 mg tablet 10 mg PO DAILY cholecalciferol (vitamin D3) [Vitamin D3] 50 mcg (2,000 unit) capsule 50 mcg PO DAILY vitamin B complex [B Complex-Vitamin B12] Tablet 1 tab PO DAILY nitroglycerin 0.4 mg tablet, sublingual 0.4 mg sublingual Q5M PRN (Reason: chest pain) Caltrate 600 plus D 600 mg-20 mcg (800 unit) tablet,chewable 1 tab PO BID nortriptyline 25 mg capsule 25 mg PO DAILY Print Language: Frisian Instructions: Constipation (ED), High Fiber Diet (ED) Additional Instructions: Drink the bottle of magnesium citrate when you get home. Resume the MiraLAX and lactulose tomorrow. Referrals: Del Jiang MD [Primary Care Provider] - 1 week
[2023-07-20] MEDS: MAGNESIUM CITRATE 296 ML SOLUTION PO (10:16)
== END 2023-07-20 10:16 | disposition home or self-care (01) ==
PROVIDERS: Emergency Provider Emergency Medicine; PCP Family Medicine
DX: K59.00 Constipation, unspecified (principal); E66.9 Obesity, unspecified; I25.10 Atherosclerotic heart disease of native coronary artery without angina pectoris; E78.5 Hyperlipidemia, unspecified; I11.9 Hypertensive heart disease without heart failure; I43 Cardiomyopathy in diseases classified elsewhere; I34.0 Nonrheumatic mitral (valve) insufficiency; Z95.5 Presence of coronary angioplasty implant and graft; Z98.890 Other specified postprocedural states; Z68.31 Body mass index [BMI] 31.0-31.9, adult; Z79.82 Long term (current) use of aspirin; Z79.899 Other long term (current) drug therapy; Z79.01 Long term (current) use of anticoagulants
CPT/HCPCS: 74018; 99283

== ENCOUNTER 2023-07-24 16:15 | Emergency (ER) | payer OTHER, SELFPAY ==
[2023-07-24] VITALS (15 sets, daily range): BP systolic 120; BP diastolic 78; PULSE 83–108; TEMP 36.3; O2SAT 94; BMI 31.1
--- NOTE | 2023-07-24 16:31 | ED_ITS ---
HPI - Extremity Problem General Chief complaint: Extremity Problem, Nontraumatic Stated complaint: lower pain Time Seen by Provider: 07/24/23 16:16 Source: patient Mode of arrival: walk-in History of Present Illness HPI Narrative: 88-year-old female presented to the emergency department for pain in her right foot. It is just distal to the lateral malleolus and it started today. It was not associated with any trauma and she states that she will be sitting still and she will get a sharp pain that hurts for a few seconds. No calf pain or knee pain. She was worried about a blood clot in her foot. Related Data Home Medications ?Medication ?Instructions ?Recorded ?Confirmed amiodarone 200 mg tablet 100 mg PO Q24H 11/06/22 11/06/22 aspirin 81 mg tablet,delayed 81 mg PO DAILY 11/06/22 11/06/22 release (Adult Low Dose Aspirin) calcium carbonate 600 mg-vitamin 1 tab PO BID 11/06/22 11/06/22 D3 20 mcg (800 unit) chewable tablet (Caltrate 600 plus D) cholecalciferol (vitamin D3) 50 50 mcg PO DAILY 11/06/22 11/06/22 mcg (2,000 unit) capsule (Vitamin D3) clopidogrel 75 mg tablet 75 mg PO DAILY 11/06/22 07/20/23 isosorbide mononitrate 60 mg 60 mg PO DAILY 11/06/22 11/06/22 tablet,extended release 24 hr lisinopril 10 mg tablet 10 mg PO DAILY 11/06/22 11/06/22 nitroglycerin 0.4 mg sublingual 0.4 mg sublingual Q5M PRN chest 11/06/22 11/06/22 tablet pain nortriptyline 25 mg capsule 25 mg PO DAILY 11/06/22 11/06/22 omega 3 350 mg-dha 235 mg-epa 90 1 cap PO DAILY 11/06/22 11/06/22 mg-fish oil 597 mg capsule,delay rel ([place]-3) torsemide 5 mg tablet 10 mg PO DAILY 11/06/22 11/06/22 vitamin B complex (B 1 tab PO DAILY 11/06/22 11/06/22 Complex-Vitamin B12 tablet) warfarin 3 mg tablet 3 mg PO DAILY 11/06/22 07/20/23 lactulose 10 gram/15 mL oral 15 ml PO BID PRN pain 07/20/23 07/20/23 solution tramadol 50 mg tablet 50 mg PO Q8H PRN pain 07/20/23 07/20/23 Allergies Allergy/AdvReac Type Severity Reaction Status Date / Time ibuprofen Allergy Intermediate Hives Verified 07/20/23 08:46 Udgttqk-BCD-EpW Reductase AdvReac Mild myalgia Verified 07/20/23 08:46 Inhibitor betablockers AdvReac bradycardia Uncoded 07/20/23 08:46 Review of Systems ROS Narrative A ten point review of systems is negative except as noted above. 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) Angina pectoris ?I20.9 - Angina pectoris, unspecified (ICD-10) Obesity ?E66.9 - Obesity, unspecified (ICD-10) Cardiomyopathy ?I42.9 - Cardiomyopathy, unspecified (ICD-10) Mitral regurgitation ?I34.0 - Nonrheumatic mitral (valve) insufficiency (ICD-10) Hyperlipidemia ?E78.5 - Hyperlipidemia, unspecified (ICD-10) Hypertension ?I10 - Essential (primary) hypertension (ICD-10) Coronary artery disease ?I25.10 - Atherosclerotic heart disease of [place] coronary artery without angina pectoris (ICD-10) Surgical History (Updated 11/06/22 @ 13:07 by Jamie Locke RN) History of hip surgery ?Z98.890 - Other specified postprocedural states (ICD-10) Stented coronary artery ?Z95.5 - Presence of coronary angioplasty implant and graft (ICD-10) Exam Narrative Exam Narrative: Nurses note and vital signs reviewed and patient is not hypoxic. General: The patient appears well and in no apparent distress. Patient is resting comfortably on cart. Skin: Warm, dry, no pallor noted. There is no rash noted. Head: Normocephalic, atraumatic Eye: Normal conjunctiva, no drainage Ears, Nose, Mouth, and Throat: oral mucosa is moist. Nares patent. Cardiovascular: Regular Rate and Rhythm Respiratory: Patient is in no distress, no accessory muscle use, lungs are clear to auscultation, no wheezing, rales or rhonchi Back: non-tender GI: Soft and nontender Musculoskeletal: She has no tenderness over the lateral malleolus of the right ankle but has some tenderness just distal to it. Dorsalis pedis pulse 2+ and capillary refill is brisk. Neurological: Awake and alert Psychiatric: Cooperative Constitutional Vital Signs, click to edit/add: Last Vital Signs Temp 97.4 F L 07/24/23 16:22 Pulse 108 H 07/24/23 16:22 Resp 18 07/24/23 16:22 BP 120/78 07/24/23 16:22 Pulse Ox 94 L 07/24/23 16:22 O2 Del Method Room Air 07/24/23 16:22 Course Vital Signs Vital signs: Vital Signs Temperature 97.4 F L 07/24/23 16:22 Pulse Rate 108 H 07/24/23 16:22 Respiratory Rate 18 07/24/23 16:22 Blood Pressure 120/78 07/24/23 16:22 Pulse Oximetry 94 L 07/24/23 16:22 Oxygen Delivery Method Room Air 07/24/23 16:22 Temperature 97.4 F L 07/24/23 16:22 Pulse Rate 108 H 07/24/23 16:22 Respiratory Rate 18 07/24/23 16:22 Blood Pressure 120/78 07/24/23 16:22 Pulse Oximetry 94 L 07/24/23 16:22 Oxygen Delivery Method Room Air 07/24/23 16:22 MDM - Extremity (Nontraumatic) MDM Narrative Medical decision making narrative: X-rays per radiologist showed no acute findings. She is referred to podiatry if symptoms persist. She was recommended ice and rest. Treatment diagnosis and follow-up were discussed with the patient and her family. I have no clinical suspicion of DVT. Differential Diagnosis Differential diagnosis: Likely other (Arthritis, fracture) Imaging Data Right foot x-ray: Radiologist's impression: ITS Impressions Foot X-Ray 07/24/23 16:45 IMPRESSION: No acute findings. Electronically authenticated by: KHOI FLORENCE Date: 07/24/2023 17:37 Ankle X-Ray 07/24/23 17:35 IMPRESSION: No acute fracture or dislocation. Electronically authenticated by: KHOI FLORENCE Date: 07/24/2023 18:34 Discharge Plan Discharge Stand Alone Forms: Portal Instructions Chief Complaint: Extremity Problem, Nontraumatic Clinical Impression: Foot pain, right Patient Disposition: Home, Self-Care Time of Disposition Decision: 18:43 Condition: Good Mode of Transportation: Private Vehicle Prescriptions / Home Meds: No Action lactulose 10 gram/15 mL solution 15 ml PO BID PRN (Reason: pain) tramadol 50 mg tablet 50 mg PO Q8H PRN (Reason: pain) amiodarone 200 mg tablet 100 mg PO Q24H clopidogrel 75 mg tablet 75 mg PO DAILY isosorbide mononitrate 60 mg tablet extended release 24 hr 60 mg PO DAILY aspirin [Adult Low Dose Aspirin] 81 mg tablet,delayed release (DR/EC) 81 mg PO DAILY torsemide 5 mg tablet 10 mg PO DAILY warfarin 3 mg tablet 3 mg PO DAILY [place]-3 350 mg-235 mg- 90 mg-597 mg capsule,delayed release(DR/EC) 1 cap PO DAILY lisinopril 10 mg tablet 10 mg PO DAILY cholecalciferol (vitamin D3) [Vitamin D3] 50 mcg (2,000 unit) capsule 50 mcg PO DAILY vitamin B complex [B Complex-Vitamin B12] Tablet 1 tab PO DAILY nitroglycerin 0.4 mg tablet, sublingual 0.4 mg sublingual Q5M PRN (Reason: chest pain) Caltrate 600 plus D 600 mg-20 mcg (800 unit) tablet,chewable 1 tab PO BID nortriptyline 25 mg capsule 25 mg PO DAILY Print Language: Lao Instructions: Arthralgia (ED) Additional Instructions: Follow-up with Dr. Goodwin if needed Referrals: Del Jiang MD [Primary Care Provider] - 1 week Yang Goodwin DPM [Physician] - 1 week
--- NOTE | 2023-07-24 16:45 | XR_ITS ---
The [address] [address] Patient Name: MAGGIE CANALES MRN: [id number] date: 1935 Sex: F Assigned Patient Location: ER Current Patient Location: ER Accession/Order Number: [id number] Exam Date: 07/24/2023 16:40 Report Date: 07/24/2023 17:37 At the request of: SALVATORE MERRITT Procedure: XR foot RT min 3V EXAM: XR foot RT min 3V TECHNIQUE: AP, lateral and oblique views right foot HISTORY: Atraumatic pain COMPARISON: None. FINDINGS: No acute fracture or dislocation. Moderate degenerative changes of the ankle and midfoot. Mild degenerative changes of the interphalangeal joints. XR/XR foot RT min 3V IMPRESSION: No acute findings. Electronically authenticated by: KHOI FLORENCE Date: 07/24/2023 17:37
--- NOTE | 2023-07-24 17:35 | XR_ITS ---
The [address] [address] Patient Name: MAGGIE CANALES MRN: [id number] date: 1935 Sex: F Assigned Patient Location: ER Current Patient Location: ER Accession/Order Number: [id number] Exam Date: 07/24/2023 17:30 Report Date: 07/24/2023 18:34 At the request of: SALVATORE MERRITT Procedure: XR ankle RT min 3V EXAM: XR ankle RT min 3V TECHNIQUE: AP, lateral and oblique views right ankle HISTORY: Atraumatic pain COMPARISON: None. FINDINGS: No acute fracture or dislocation. 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 Ankle mortise is aligned. Mild degenerative changes of the midfoot. Small calculus spur is noted. Vascular calcifications are seen. XR/XR ankle RT min 3V IMPRESSION: No acute fracture or dislocation. Electronically authenticated by: KHOI FLORENCE Date: 07/24/2023 18:34
== END 2023-07-24 19:01 | disposition home or self-care (01) ==
PROVIDERS: Emergency Provider Emergency Medicine; PCP Family Medicine
DX: M79.671 Pain in right foot (principal); E66.9 Obesity, unspecified; I34.0 Nonrheumatic mitral (valve) insufficiency; I25.10 Atherosclerotic heart disease of native coronary artery without angina pectoris; Z95.5 Presence of coronary angioplasty implant and graft; Z98.890 Other specified postprocedural states; E78.5 Hyperlipidemia, unspecified; I11.9 Hypertensive heart disease without heart failure; I43 Cardiomyopathy in diseases classified elsewhere; Z79.82 Long term (current) use of aspirin; Z79.899 Other long term (current) drug therapy; Z79.01 Long term (current) use of anticoagulants; Z68.31 Body mass index [BMI] 31.0-31.9, adult
CPT/HCPCS: 73610; 73630; 99283

== ENCOUNTER 2023-07-27 07:36 | Outpatient (RCR) | payer OTHER, SELFPAY | END 2024-04-08 23:59 | disposition home or self-care (01) | LOC: PT 07:36 | PROVIDERS: PCP Family Medicine; Visit Provider Family Medicine | DX: M19.90 Unspecified osteoarthritis, unspecified site (principal) ==

== ENCOUNTER 2023-08-02 12:16 | Outpatient (OUT) | payer OTHER, SELFPAY ==
--- NOTE | 2023-08-02 12:46 | CT_ITS ---
The [address] [address] Patient Name: MAGGIE CANALES MRN: [id number] date: 1935 Sex: F Assigned Patient Location: LAB Current Patient Location: LAB Accession/Order Number: [id number] Exam Date: 08/02/2023 12:57 Report Date: 08/02/2023 13:29 At the request of: LOS CHAUDHARY Procedure: CT head/brain wo con EXAMINATION: CT head/brain wo con HISTORY: Benign essential hypertension ; fell 2 days ago striking back of head COMPARISON: CT head 07/29/2021 oh TECHNIQUE: Axial CT images were obtained without IV contrast. Dose reduction techniques were achieved by using automated exposure control and/or adjustment of mA and/or kV according to patient size and/or use of iterative reconstruction technique. FINDINGS: BRAIN: No edema, hemorrhage, mass, acute infarction, or inappropriate atrophy. CSF SPACES: No hydrocephalus, subarachnoid hemorrhage, or mass. Appropriate for age. SKULL: No fracture, mass, or other significant visible lesion. SINUSES: No significant mucosal thickening or fluid on the limited views. ORBITS: No appreciable abnormality on the limited views. OTHER: Negative CT/CT head/brain wo con IMPRESSION: 1. No intracranial hemorrhage or acute abnormality. Mild age consistent chronic changes. 2. No fracture of the calvarium or scalp hematoma. Electronically authenticated by: SHWETA HERNANDEZ Date: 08/02/2023 13:29
[2023-08-02 13:09] LABS: Alanine Aminotransferase 29 U/L (14-59); Albumin Level 3.5 g/dL (3.4-5.0); Alkaline Phosphatase 97 U/L (46-116); Anion Gap 13.6; Aspartate Amino Transferase 21 U/L (15-37); BUN Creatinine Ratio 31.2; Bilirubin Total 0.6 mg/dL (0.2-1.0); Carbon Dioxide 27.5 mmol/L (21.0-32.0); Chloride 103 mmol/L (98-107); Estimated GFR (African America 38 (>=60); Estimated GFR (Non-African Ame 31 (>=60); Globulin 3.5 g/dL; Glucose 122 mg/dL (74-106); Potassium 4.1 mmol/L (3.5-5.1); Sodium 140 mmol/L (136-145)
[2023-08-02 13:39] LABS: Free T4 1.23 ng/dL (0.76-1.46)
[2023-08-02 13:41] LABS: Basophils Percent Auto 0.5 % (0.2-2.0); Eosinophils Absolute Auto 0.1 10^3/uL (0.0-0.7); Hematocrit 37.4 % (36.0-48.0); Hemoglobin 11.6 g/dL (12.0-16.0); Immature Granulocytes Abs Auto 0.07 10^3/uL (0.00-0.03); Lymphocytes Percent Auto 13.5 % (20.5-60.0); Mean Corpuscular Hemoglobin 32.9 pg (26.7-34.0); Mean Platelet Volume 10.6 fL (9.5-13.5); Monocytes Absolute Auto 0.6 10^3/uL (0.3-0.8); Monocytes Percent Auto 8.3 % (1.7-12.0); Neutrophils Absolute Auto 5.6 10^3/uL (1.4-6.5); Neutrophils Percent Auto 75.7 % (43.0-75.0); Platelet Count 185 10^3/uL (150-450); Red Blood Count 3.53 10^6/uL (4.20-5.40); Red Cell Distribution Width 16.1 % (11.0-15.0); White Blood Count 7.4 10^3/uL (4.0-11.0)
[2023-08-02 13:44] LABS: Thyroid Stimulating Hormone 4.996 uIU/mL (0.358-3.740)
[2023-08-02 17:30] LABS: Mean Corpuscular Volume 105.9 fL (81.0-99.0)
== END 2023-08-02 12:17 | disposition home or self-care (01) ==
LOC: LAB 12:19
PROVIDERS: PCP Family Medicine; Visit Provider Family Medicine
DX: R51.9 Headache, unspecified (principal); I50.30 Unspecified diastolic (congestive) heart failure; I11.0 Hypertensive heart disease with heart failure
CPT/HCPCS: 36415; 70450; 80053; 83880; 84439; 84443; 85025

== ENCOUNTER 2023-08-08 04:36 | Outpatient (RCR) | payer OTHER, SELFPAY | END 2023-09-07 11:52 | disposition home or self-care (01) | LOC: MM 04:36 | PROVIDERS: PCP Family Medicine; Visit Provider Internal Medicine | DX: Z51.81 Encounter for therapeutic drug level monitoring (principal); Z79.01 Long term (current) use of anticoagulants; I48.0 Paroxysmal atrial fibrillation | CPT/HCPCS: 85610; G0463 ==

== ENCOUNTER 2023-08-08 13:09 | Outpatient (OUT) | payer OTHER, SELFPAY ==
--- NOTE | 2023-08-08 13:11 | VEIN_ITS ---
Patient Name: MAGGIE CANALES MR#: [id number] : 1935 Exam Date: 08/08/2023 Ordering Doctor: DR Del Jiang . RADIOLOGY REPORT PROCEDURE: VC EXT VENOUS REFLUX [place] LMTD COMPARISON: None. INDICATIONS: I83.813 Pain due to varicose veins of bilateral legs TECHNIQUE: Duplex imaging of the lower extremity to assess the deep and superficial venous system for the presence of deep or superficial venous incompetence and to document the location and severity of disease. The study includes evaluation of the great saphenous vein (GSV), anterior accessory saphenous vein (AASV) and small saphenous vein (SSV). Patient scanned in reverse Trendelenburg and standing. FINDINGS: RIGHT LOWER EXTREMITY: Saphenofemoral Junction Reflux: Yes 10.6mm 3.0 sec GSV: Diam (mm) Reflux/ Time (sec) Proximal Thigh 8.0 Yes 2.7 Mid Thigh 5.8 Yes 3.1 Distal Thigh 5.7 Yes 3.3 Prox Calf 4.7 Yes 4.1 Mid Calf 1.7 Yes 0.7 Saphenopopliteal Junction Reflux: 3.7mm Yes 0.3 SSV: Proximal Calf 3.8 Yes 0.3 Mid Calf 3.7 No AASV: Proximal Thigh 4.1 Yes 0.8 Mid Thigh 2.3 Yes 1.8 Distal Thigh Thrombi: No acute or chronic thrombus. Compressibility: Normal. Flow: Minimal deep venous reflux. Preforator: Distal medial lower leg measures 2.9 mm with 2.2s reflux. Tech Note: Limited visualization of calf veins due to significant edema. Incompetent varicose vein mid medial thigh measures 5.5 mm with 0.7s reflux. Varicose vein distal medial thigh measures 4.2 mm with 1.8s reflux. LEFT LOWER EXTREMITY: Saphenofemoral Junction Reflux: Yes 9.8 mm 2.7 sec GSV: Diam (mm) Reflux/Time (sec) Proximal Thigh 7.2 Yes 1.8 Mid Thigh 5.5 Yes 4.7 Distal Thigh 4.5 Yes 3.1 Prox Calf 4.1 Yes 4.3 Mid Calf 3.2 Yes 1.9 Saphenopopliteal Junction Relux: 2.2 mm Yes 0.3 SSV: Proximal Calf 2.0 Yes 0.3 Mid Calf 1.7 Yes 2.9 AASV: Proximal Thigh 4.0 Yes 2.2 Mid Thigh 3.2 Yes 2.0 Distal Thigh Thrombi: No acute or chronic thrombus. Compressibility: Normal. Flow: Moderate deep venous reflux in femoral vein. Stock Preparation Supervisor: Mid medial lower leg 5.1 mm with 2.7 s reflux. Tech Note: Limited visualization of calf veins due to significant edema. Incompetent varicose veins mid medial thigh measures 4.4 mm with 3.8s reflux. Varicose vein medial knee measures 4.2 mm with 4.2s reflux. Varicose vein mid medial lower leg measures 4.2 mm with 0.3s reflux. 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
== END 2023-08-08 13:10 | disposition home or self-care (01) ==
LOC: VC 13:09
PROVIDERS: PCP Family Medicine; Visit Provider Radiology Diagnostic Radiology
DX: I83.813 Varicose veins of bilateral lower extremities with pain (principal)
CPT/HCPCS: 93970

== ENCOUNTER 2023-08-14 12:40 | Outpatient (OUT) | payer OTHER, SELFPAY ==
--- NOTE | 2023-08-14 13:00 | CA_ITS ---
Patient Name: MAGGIE CANALES MR#: [id number] : 1935 Exam Date: 08/14/2023 Ordering Doctor: DR Del Jiang . ECHOCARDIOGRAM REPORT PROCEDURE: CA ECHO DOPPLER COMPLETE INDICATIONS: Atrial fibrillation, pacemaker COMPARISON: None. DESCRIPTION: COMPLETE ECHOCARDIOGRAM Real-time transthoracic echocardiography with 2D, M-mode, spectral and color flow Doppler performed. QUALITY: Technical quality was good. 62 , 195#, BSA 1.89 m2, BP 118/72 LEFT VENTRICLE: Normal chamber size. Normal left ventricular wall thickness. LV EF: Global left ventricular systolic function is difficult to assess but appears mild to moderately reduced; visually estimated ejection fraction is 35 to 40%. Unable to assess regional wall motion abnormalities. DIASTOLIC: Diastolic dysfunction. ATRIAL SEPTUM: Visually appears intact. LEFT ATRIUM: Moderate dilatation. RIGHT ATRIUM: Severe dilatation. A pacemaker wire is seen. RIGHT VENTRICLE: Mild dilatation and systolic function is reduced. Pacemaker wire is seen. TRICUSPID VALVE: Normal mobility and thickness. Wide-open (severe) regurgitation. Doppler studies reveal moderately (45-60) elevated right sided pressures. RVSP 54 mmHg MITRAL VALVE: Normal mobility and thickness. No evidence of mitral valve stenosis. Mild mitral annular calcification. Moderate to severe mitral regurgitation. AORTIC VALVE: Normal trileaflet appearance. Mildly calcified aortic valve with diminished mobility. Doppler velocity suggests mild aortic valve stenosis. DVI 0.4. No aortic regurgitation. AORTIC ROOT: Normal diameter and appearance. Ascending aorta is normal in size. PULMONIC VALVE: Normal thickness and mobility. No stenosis. Trivial regurgitation. PERICARDIUM: No evidence of pericardial effusion. IVC: IVC is dilated (2.6 cm) with no collapse. CONCLUSION: 1. Global left ventricular systolic function is difficult to assess but it is mild to moderately reduced; visually estimated ejection fraction is 35 to 40% 2. The right ventricle is dilated with reduced systolic function 3. Biatrial enlargement 4. Diastolic dysfunction 5. Severe, wide-open tricuspid regurgitation 6. Moderately elevated right ventricular systolic pressure; RVSP 54 mmHg 7. Moderate to severe mitral regurgitation 8. Mild aortic valve stenosis Adult Echocardiography Procedure Report Left Ventricle LVEDD (3.7 - 5.6 cm): 4.69 cm LVESD (2.2 - 4.0 cm): 3.88 cm LVIVS thickness (0.6 - 1.2 cm): 1.02 cm LVPW thickness (0.5 - 1.0 cm): 0.84 cm LVOT Max Gradient: 1.76 mm[Hg], 1.46 mm[Hg] Peak Velocity (LVOT): 0.66 m/s, 0.60 m/s LVOT Diameter 2.01 cm Left Atrium LA Volume Index (2D A2C): 41.60 ml/m2 Left Atrium Systolic Dimension: 4.33 cm Mitral Valve MV E to A Ratio: 2.19 Mitral Valve A-Wave Peak Velocity: 0.42 m/s Mitral Valve E-Wave Peak Velocity: 0.92 m/s Right Ventricle Aorta AO Root Diam: 3.00 cm Ascending Ao Diam: 2.59 cm Aortic Valve AoV Area (Peak Telly): 1.32 cm2, 1.56 cm2, 1.20 cm2, 23.96 cm2, 23.96 cm2 AoV Area (VTI): 1.08 cm2, 1.32 cm2, 1.02 cm2 Peak Velocity(Antegrade Flow): 1.36 m/s, 1.60 m/s, 0.09 m/s Peak Gradient(Antegrade Flow): 0.03 mm[Hg], 7.38 mm[Hg], 10.24 mm[Hg] Mean Velocity(Antegrade Flow): 0.99 m/s, 1.14 m/s Mean Gradient(Antegrade Flow): 4.38 mm[Hg], 5.86 mm[Hg] Velocity Time Integral: 25.78 cm, 31.34 cm Tricuspid Valve Peak Velocity (Regurgitant Flow): 1.92 m/s, 2.46 m/s, 2.26 m/s, 2.29 m/s Pulmonic Valve Mean Gradient: 1.76 mm[Hg] Mean Velocity: 0.64 m/s Peak Velocity: 0.89 m/s, 0.78 m/s Peak Gradient: 2.42 mm[Hg], 3.20 mm[Hg] Right Atrium Right Atrium Systolic Pressure: 62.28 ml, 62.28 ml Dictated by: Imtiaz Ponce M.D. on 08/15/2023 at 16:20 Approved by: Imtiaz Ponce M.D. on 08/15/2023 at 16:30
== END 2023-08-14 12:41 | disposition home or self-care (01) ==
LOC: CARD 12:41
PROVIDERS: PCP Family Medicine; Visit Provider Family Medicine
DX: I48.4 Atypical atrial flutter (principal)
CPT/HCPCS: 93306

== ENCOUNTER 2023-08-23 09:24 | Outpatient (OUT) | payer OTHER, SELFPAY ==
--- NOTE | 2023-08-23 09:26 | VEIN_ITS ---
Patient Name: MAGGIE CANALES MR#: [id number] : 1935 Exam Date: 08/23/2023 Ordering Doctor: DR ILSA COYLE M.D. RADIOLOGY REPORT PROCEDURE: [facility] - OFFICE VISIT INITIAL COMPARISON: None. PROGRESS NOTES: [age] year old female who presents with a six-month history of lower extremity swelling, edema,, heaviness pain, with acute exacerbation 2 weeks ago. The patient's leg symptoms are bilateral. There has been a progression of symptoms over time. This increases with prolonged like dependency. The patient describes an improvement with rest, elevation, and support stockings. The patient denies any signs and symptoms to suggest arterial ischemia. The patient describes a family history heart disease on paternal and maternal side. The patient has drinking and smoking history of : None. Patient has a past medical history significant for congestive heart disease, lower extremity edema, obesity, Alvarado's palsy, myocardial infarction. The patient denies a history of deep venous thrombus or pulmonary embolus. See separate history and physical for medication list. No prior treatment for varicose or spider veins. Current use of compression stockings. After review of nurse notes, history and physical exam I discussed at length the pathophysiology of venous hypertension and possible treatments, therapies and strategies available. We discussed at length the importance of elevating the lower extremities above the level of the heart, increased physical activity and compression stocking use. Ultrasound venous reflux study performed on August 08, 2023 was discussed at length with the patient. The report demonstrates abnormally dilated great saphenous veins bilaterally with significant reflux. Abnormal reflux is also present within the right and left anterior accessory saphenous veins and left small saphenous vein, but no abnormal dilation.. PHYSICAL EXAM: The right leg demonstrates marked swelling with a few visible varicosities, a few scattered spider veins, no ulceration, marked edema, no skin discoloration. The left leg demonstrates a few visible varicosities, a few scattered spider veins, no ulceration, marked edema, mild skin discoloration. Both thighs, legs and feet were symmetrically warm to the touch. Good posterior tibial and dorsalis pedis pulses were present bilaterally. VEIN/ Facility EST Comprehensive IMPRESSION: 1. Bilateral lower extremity venous insufficiency 2. Bilateral lower extremity varicose veins 3. Bilateral lower extremity subcutaneous edema 4. No flow significant arterial disease 5. CEAP: C4a, AP, , [place] PLAN: 1. Continued use of compression stockings 2. Elevated legs and increased physical activity symptomatic relief 3. Endovenous laser ablation of right and left great saphenous veins. 4. Microfoam chemical ablation of incompetent branch saphenous varicosities. Nurse notes, history and physical were reviewed and confirmed, see attached forms. The nurse was present throughout the physical exam and consultation Dictated by: Derian Huntley M.D. on 08/23/2023 at 12:37 Approved by: Derian Huntley M.D. on 08/23/2023 at 12:46
== END 2023-08-23 09:25 | disposition home or self-care (01) ==
LOC: VC 09:24
PROVIDERS: PCP Radiology Diagnostic Radiology; Visit Provider Radiology Diagnostic Radiology
DX: I83.813 Varicose veins of bilateral lower extremities with pain (principal); Z51.81 Encounter for therapeutic drug level monitoring; Z79.01 Long term (current) use of anticoagulants; I48.0 Paroxysmal atrial fibrillation
CPT/HCPCS: 85610; G0463

== ENCOUNTER 2023-08-30 06:02 | Emergency (ER) | payer OTHER, SELFPAY ==
[2023-08-30] VITALS (14 sets, daily range): BP systolic 119–157; BP diastolic 66–89; PULSE 88–119; O2SAT 95–99; BMI 35.7
--- OUTSIDE RECORDS SUMMARY | 2023-08-30 06:13 | XMS_ITS | CCD ---
Author Organization [facility] Care Team Providers Care Glost Placer Name Role Phone JUSTIN BROWN Unavailable Unavailable JUSTIN BROWN Unavailable Unavailable Summer Tidwell Unavailable Unavailable Unavailable HARPREET Tidwell Summer Breonna Primary Care Provider DO Pramod Bess Emergency Provider DO Guillermo Sanders Emergency Provider MD Stephanie Locke Jr Emergency Provider Al MD Nguyễn Askew Admit Provider Al MD Nguyễn Askew Attending Provider MD Kale Ross Attending Provider DO Matt Servin Other Provider MD Akhil Olivarez Attending Provider MD Doug Montana Attending Provider DO Myron Villarreal Emergency Provider [phone] Los Chaudhary Primary Care Physician [phone] HARPREET Tidwell Summer Breonna Primary Care Provider [phone] MD Akhil Olivarez Attending Provider LYNN Zimmerman Attending Provider Los Chaudahry M Unavailable HARPREET Tidwell Summer Breonna Primary Care Provider MD Akhil Olivarez [...] HOY ., DR MADISON Primary Care Unavailable ALAMO-JAMES, MICKEY Attending Unavailable ALAMO-JAMES, MICKEY Consulting Unavailable HOY ., DR MADISON [...] Unavailable YAW, SUMMER Primary Care Unavailable NEENA Garcia, DR MADISON Attending Unavailable SHAIKH WHITE H Attending Unavailable YAW, SUMMER Primary Care Unavailable FAWSHANICE, REIS H Admitting Unavailable YAW, SUMMER Primary Care Unavailable YAW, SUMMER Admitting Unavailable YAW, SUMMER Attending Unavailable YAW, SUMMER Consulting Unavailable Iluxhq7s, [id number] Attending Unavailable Dr. Los Chaudhary Primary Care Unavail able Yaw, RECREATION COUNSELOR-C Summer Ravi Primary Care Provider [phone] DO Pearl Michel Attending Provider [phone] MD Los Chaudhary Primary Care Provider [phone] DO Philip Thompson Emergency Provider MD Jamie Hathaway Admit Provider MD Jamie Hathaway Attending Provider DO Philip Thompson Emergency Provider MD Jamie Hathaway Admit Provider [phone] MD Danilo Drummond Attending Provider [phone] MD Akhil Olivarez Attending Provider Los Chaudhary MD Primary Care Provider [phone] Akhil Michel Attending Ruma Chaudhary, Dr. Los Carr Primary Care Unavail [...] Sher ELLIOTT, Dr. Akhil Higginbotham Attending Unavailable McGuinadore ELLIOTT, Dr. Akhil Higginbotham Referring Unavailable Jacob, [...] able MD Los Chaudhary Primary Care Provider [phone] DO Philip Thompson Emergency Provider MD Jamie Hathaway Admit Provider [phone] MD Danilo Drummond Attending Provider MD Akhil Olivarez Attending Provider Los Chaudhary MD Primary Care Provider [phone] REFERRAL, SELF Admitting Unavailable REFERRAL, SELF Attending Unavailable REFERRAL, SELF Referring Unavailable Los Chaudhary Consulting Unavailable MD Los Chaudhary Consulting Unavailable PADMAJA SAWANT Referring Unavaila ble LIVIER, ADRIAN SAMUELS Primary Care Unavailable SHWETA SOL Attending Unavailable SHWETA SOL Admitting Unavailable LOS CHAUDHARY Primary Care Unavailable SHWETA SOL Attending Unavailable MD Los Chaudhary Primary Care Provider MD Akhil Olivarez Attending Provider MD Los Chaudhary Primary Care Provider MD Akhil Olivarez Attending [facility] Los Chaudhary MD Primary Care Provider [phone] SHWETA SOL Referring Unavailable HOY, LOS M Primary Care Unavailable SHWETA SOL Attending Unavailable SHWETA SOL Referring Unavailable HOY, LOS M Primary Care Unavailable HOY, LOS M Primary Care Unavailable SHWETA SOL Attending Unavailable HOY, LOS M Primary Care Unavailable SHWETA SOL Attending Unavailable HOY, LOS M Primary Care Unavailable ROSALVA LEMOS Attending Unavailable HOY, LOS M Primary Care Unavailable ROSALVA LEMOS Attending Unavailable FRANKLIN Ovalle Emergency Provider [phone] MD Los Chaudhary Primary Care Provider [phone] MD Akhil Olivarez Attending Provider Kwaku Santamaria Admitting Unavailable Kwaku Santamaria Attending Unavailable HOY, LOS Primary Care Unavailable Akhil Olivarez Attending Unavail able Hoy, Los M Primary Care Unavailable Akhil Olivarez Admitting Unavail able Hoy, Los M Primary Care Unavailable Danilo Drummond Attending Unavailable Jamie Hathaway Admitting Unavailable Ashely Arguelles Consulting Unavailable Pearl Michel Consulting Unavailable Bg Nation Consulting Unavailable Akhil Olivarez Consulting Unavail able Millie Drew Consulting Unavailable Lyle Lane Consulting Unavailab Mickey Rapp Consulting Unavailable Pretty Cheema Consulting Unavailable Joanne Barnes Consulting Unavailab Leslye Barron Consulting Unavailable Joanne Montes Consulting Unavailable Patricia Lawson Consulting Unavailable Hoy, Los M Primary Care Unavailable Pearl Michel Attending Unavailable Pearl Michel Admitting Unavailable Akhil Olivarez Attending Unavail able Hoy, Los M Primary Care Unavailable Akhil Olivarez Admitting Unavail able Akhil Olivarez Attending Unavail able Hoy, Los M Primary Care Unavailable Akhil Olivarez Admitting Unavail able Akhil Olivarez Admitting Unavail able Hoy, Los M Primary Care Unavailable Akhil Olivarez Attending Unavail able Hoy, Los M Primary Care Unavailable Pearl Michel Attending Unavailable Pearl Michel Admitting Unavailable Los Chaudhary Primary Care Unavailable Daily Hart Attending Unavailable Daily Hart Admitting Unavailable Neena Los M Primary Care Unavailable Arthur Ovalle Attending Unavailable Arthur Ovalle Admitting Unavailable Akhil Olivarez Admitting Unavail able Akhil Olivarez Attending Unavail able SumanLos hankins Primary Care Unavailable MICKEY JAMES Attending Unavailable LOS CHAUDHARY Primary Care Unavailable Allergies Allergy Classification Reported Allergen(s) Allergy Type Date of Onset Reaction(s) Facility (20 sources) ibuprofen; Translations: [ibuprofen] Drug Allergy 3 Unknown (qualifier value), Unknown, [facility] Repository (20 sources) Hmg-Coa Reductase Inhibitors (Statins); Translations: [Statins] Allergy to drug (finding) Myalgia, Other [facility] Repository (20 sources) Ibuprofen; Translations: [Motrin TABS] Drug Allergy Hives [facility] 600 DO Work Phone: (20 sources) Beta-Adrenergic Germán; Translations: [Beta Adrenergic Blockers] Allergy to drug (finding) Bradycardia [facility] y 250 DO Work Phone: (2 sources) HMG-CoA reductase inhibitor; Translations: [statins] Drug allergy Walking disability (finding) [facility] (3 sources) Ibuprofen; Translations: [Motrin] Drug Allergy 2 [facility] Repository (8 sources) HMG-CoA reductase inhibitor; Translations: [RMYMKTS-TBH-BY A REDUCTASE INHIBITORS] Drug Intolerance 3 Other: See Comments, Myalgia, Other [facility] (2 sources) beta-Blocking agent; Translations: [BETA-BLOCKERS (BETA-ADRENERGI C BLOCKING AGTS)] Drug Allergy 3 Other [facility] Medications Current Medications Medication Drug Class(es) Dates [...] PO Twice daily 60 November 24, 2022 10:51am Start: 09-22-2022 End: 11-24-2022 take 1300 mg by mouth twice daily Acetaminophen Discontinued 1300 MG PO Twice daily September 22, 2022 12:00am November 24, 2022 10:53am Start: 04-03-2017 End: 09-22-2022 take 650 mg by mouth every four hours Acetaminophen Discontinued 650 MG PO Q4H 0 April 03, 2017 1:00am September 22, 2022 9:04am Comment on above: Take 2 tablets by mo ut every 6 hours for 5 days, THEN 1 to 2 tablets every 6 hours as needed for pain. amiodarone hydrochloride 100 mg oral tablet (20 sources) Antiarrhythmic Start: take 100 mg by mouth twice daily Amiodarone Active 100 MG PO Twice daily July 31, 2023 12:00am Start: 11-23-2022 End: 07-31-2023 take 100 mg by mouth once daily Amiodarone Discontinue d 100 MG PO Daily 30 November 24, 2022 10:51am July 31, 2023 7:20pm Start: 07-07-2022 amiodarone (PA CERONE) 200 mg tablet Take 100 mg by mouth two times a day. 0 07/07/2022 Active Start: 07-07-2022 take 1 tablet by natalia once daily amiodarone (Pacerone) 200 mg tablet Indications: Paroxysmal atrial fibrillation (CMS/HCC) Take 1 tablet (200 mg) by mouth once daily. 90 tablet 1 01/23/2023 Active Start: 04-14-2022 take 0.5 tablet by m out twice daily Amiodarone HCl - 200 MG Oral Tablet TAKE 1/2 TABLET TWICE DAILY Quantity: 90 Refills: 1 Ordered: 14-Apr-2022 Akihl Olivarez MD Start : 14-Apr-2022 Active Start: 01-10-2022 End: 11-24-2022 take 100 mg by mouth twice daily Amiodarone Discontinued 100 MG PO Twice daily January 10, 2022 12:00am November 24, 2022 10:53am Start: 10-28-2021 End: 01-10-2022 take 200 mg by mouth twice daily Amiodarone Discontinued 200 MG PO Twice daily October 28, 2021 12:00am January 10, 2022 5:48pm Start: 03-01-2021 take 0.5 tablet by m [...] mg by mouth two times a day. aspirin 81 mg chewable tablet (20 sources) Platelet Aggregation Inhibitor, Nonsteroidal Anti-inflammatory Drug Start: take 1 tablet by mouth two times weekly aspirin 81 mg chewable tablet Indications: Arteriosclerosis of coronary artery Take one tablet by mouth twice a week 30 tablet 02/26/2023 Active Start: 09-22-2022 take 81 mg by mouth two times weekly Aspirin Active 81 MG PO Twice a Week September 22, 2022 12:00am Start: 10-25-2021 End: 09-22-2022 take 81 mg by mouth two times weekly Aspirin Discontinued 81 MG PO Twice a Week October 25, 2021 12:00am September 22, 2022 9:07am 2X WEEKLY, SUNDAY AND SUNDAY Start: 10-25-2021 take 81 mg by mouth every week Aspirin Active 81 MG PO As Directed October 25, 2021 12:00am 2X WEEKLY, SUNDAY AND SUNDAY Start: 10-30-2018 End: 10-25-2021 take 325 mg by mouth once daily Aspirin Discontinued 3 25 MG PO Daily November 26, 2019 12:00am October 25, 2021 11:42am Start: 09-18-2018 take 1 tablet by natalia [...] Refills(s) 0 Start Date: 10/30/18 Status: Ordered clopidogrel 75 mg oral tablet (20 sources) [id number] Platelet Inhibitor Start: 09-25-2022 Clopidogrel (Plavix) 75 mg tablet Active 75 MG PO Daily September 25, 2022 12:00am Discontinue Brilinta after 30 days and then initiate clopidogrel daily Comment on above: Take 75 mg by mouth once daily. digoxin 0.125 mg oral tablet (20 sources) Cardiac Glycoside Start: 09-18-2018 take 1 tablet by mouth once daily digoxin 125 mcg (0.125 mg) Tab microgram tab(s), Oral, Daily, Refills(s) 0 Start Date: 09/18/18 Status: Ordered Start: 03-14-2017 End: 01-10-2022 take 125 ug by mouth once daily Digoxin Discontinued 125 MCG PO Daily 0 April 03, 2017 1:00am January 10, 2022 5:50pm Comment on above: Take 0.125 mg by natalia th. docosahexaenoic acid 120 mg / eicosapentaenoic acid 180 mg oral capsule (20 sources) take 1 capsule by mouth once daily fish oil concentrate (Walnut-3) 120-180 mg capsule Take 1 capsule (1 [...] 0 Ordered: 21-Sep-2021 DO Active oxyquinoline sulfate 0.07126 mg/mg / sodium dodecyl sulfate 0.0001 mg/mg vaginal gel (2 sources) Start: 02-20-2019 Trimo-Beal 0.025% vaginal gel with applicator See Instructions, 1 tube(s), Refill(s) 2, Use with cleaning of pessary, [id number] Start Date: 02/20/19 Status: Ordered Fish Oils (2 sources) Start: 10-30-2018 Fish Oil Oral, Refill(s) 0 Start Date: 10/30/18 Status: Ordered hydroCHLOROthiazide 12.5 mg / lisinopril 10 mg oral tablet (20 sources) Thiazide Diuretic, Angiotensin Converting Enzyme Inhibitor Start: 09-18-2018 take 1 tablet by mouth once daily hydrochlorothiazid e-lisinopril 12.5 mg-10 mg Tab 1 tab(s), Oral, Daily, Refill(s) 0 Start Date: 09/18/18 Status: Ordered Start: 03-14-2017 End: 04-03-2017 take 1 tablet by mouth once daily Lisinopril-Hydrochlorothiazide Discontin ued 1 TAB PO Daily March 14, 2017 1:00am April 03, 2017 8:39am 24 hr isosorbide mononitrate 60 mg extended release oral tablet (20 sources) Nitrate Vasodilator Start: 09-22-2022 take 60 mg by mouth once daily Isosorbide Mononitrate Active 60 MG PO Daily September 22, 2022 12:00am Start: 07-05-2022 take 1 tablet by natalia [...] Lisinopril Active 10 MG PO Daily September 22, 2022 12:00am Start: 10-28-2021 End: 09-22-2022 take 2.5 mg by mouth once daily Lisinopril Discontinue d 2.5 MG PO Daily October 28, 2021 12:00am September 22, 2022 9:09am Start: 04-03-2017 End: 10-28-2021 take 10 mg by mouth once daily Lisinopril Discontinued 10 MG PO Daily 0 April 03, 2017 1:00am October 28, 2021 2:10pm Start: 10-29-2012 take 2 tablets by [facility] once daily lisinopril 5 mg tablet Take 10 mg by mouth once daily. 0 10/29/2012 Active Comment on above: Take 10 mg by mouth once daily. mineral oil 0.2 mg/mg / petrolatum 0.8 mg/mg ophthalmic ointment (11 sources) Start: 09-22-2022 White Petrolatum-Mineral Oil (Soothe Night Time Lubricant) 80-20 % Ointment Active 1 APPLIC EYE-LEFT Daily September 22, 2022 12:00am Multivitamin preparation (14 sources) Start: 01-10-2022 take 1 tablet by mouth once daily Multivitamin Active 1 TAB PO Daily January 09, 2022 11:00pm Start: 01-10-2022 take 1 tablet by [facility] once daily Multivitamin Active 1 TAB PO Daily January 10, 2022 12:00am nitroglycerin 0.4 mg sublingual tablet (20 sources) Nitrate Vasodilator Start: 06-29-2022 Nitroglyce rin Active 0.4 MG SUBLINGUAL As Directed September 22, 2022 12:00am Start: 06-27-2022 Nitroglycerin 0.4 MG Sublingual Tablet [...] 5 minutes as needed for chest pain. Walnut 7-Ozk-Mkn-Fish Oil (Fish Oil) 1,000 mg (120 mg-180 mg) Capsule (19 sources) Start: 11-26-2019 take 1 capsule by mouth once daily Walnut 6-Pma-Tlg-Fish Oil (Fish Oil) 1,000 mg (120 mg-180 mg) Capsule Active 1 CAP PO Daily November 25, 2019 11:00pm Start: 11-26-2019 take 1 capsule by [facility] once daily Walnut 9-Ouf-Dmv-Fish Oil (Fish Oil) 1,000 mg (120 mg-180 mg) Capsule Active 1 CAP PO Daily November 26, 2019 12:00am Start: 11-26-2019 take 1 capsule by mo uth twice daily Walnut 0-Xvn-Ssz-Fish Oil (Fish Oil) 1,000 mg (120 mg-180 mg) Capsule Active 1 CAP PO Twice daily November 25, 2019 11:00pm Start: 11-26-2019 take 1 capsule by mo ut twice daily Walnut 5-Lfm-Rgn-Fish Oil (Fish Oil) 1,000 mg (120 mg-180 mg) Capsule Active 1 CAP PO Twice daily November 26, 2019 12:00am Selenium (19 sources) Start: 11-26-2019 take 100 ug by [...] Torsemide Active 10 MG PO Daily September 22, 2022 12:00am Start: 11-26-2019 End: 09-22-2022 take 5 mg by mouth once daily Torsemide Discontinued 5 MG PO Daily November 26, 2019 12:00am September 22, 2022 9:13am take 2 tablets by [facility] once daily in the morning Torsemide 5 [...] Ordered vitamin e 180 mg oral capsule (20 sources) Start: 11-26-2019 take 800 [IU] by mouth once daily Vitamin E Active 800 UNIT PO Daily November 26, 2019 12:00am Start: 10-30-2018 take 1 tablet by natalia [...] (20 sources) Vitamin K Antagonist Start: 11-17-2022 Warfarin Active 3 MG PO .qmw November 17, 2022 12:00am 3 mg orally Start: 11-17-2022 End: 11-17-2022 Warfarin Discontinued MG TAB LET November 17, 2022 12:00am November 17, 2022 7:48pm Start: 11-17-2022 take 3 mg by mouth once Warfar in Active 0 .ROUTE .COMPLEX November 17, 2022 12:00am 3 mg orally EVERY SUNDAY, SUNDAY, SUNDAY AND SUNDAY Start: 07-23-2022 warfarin (COUM MATY) 6 mg tablet Take 2.5 mg by mouth as directed. 0 07/23/2022 Active Start: 10-25-2021 End: 09-22-2022 take 6 mg by mouth once Warfarin Active 6 MG PO ever y Sunday, , Sunday, and Thursday September 22, 2022 12:00am take 1 tablet by mouth once warf angus (Coumadin) 3 mg tablet Take 1 tablet (3 mg) by mouth see administration instructions. Per the [facility] 0 Active Comment on above: Take [...] 2 TAB PO Q6H March 18, 2017 11:19am April 03, 2017 8:39am 1-2 every 6 hours as needed amitriptyline [...] daily Amlodipine Discontinued 5 MG PO Daily 14 October 25, 2021 12:00am September 22, 2022 9:06am Comment on above: Take 5 mg by mouth o nce daily. apple cider vinegar 500 mg oral tablet (20 sources) Start: 11-26-2019 End: 07-31-2023 take 500 mg by mouth once daily Apple Cider Vinegar Discontinued 500 MG PO Daily November 26, 2019 12:00am July 31, 2023 7:16pm Comment on above: Take 1 tablet by natalia th once daily. ascorbic acid 1000 mg oral tablet (20 sources) Vitamin C Start: 09-22-2022 End: 07-31-2023 take 2 tablets by mouth twice daily Ascorbic Acid (Vitamin C) (Vitamin C) 1,000 mg Tablet Discontinued 2000 MG PO Twice daily September 22, 2022 12:00am July 31, 2023 7:16pm Start: 11-26-2019 End: 09-22-2022 Ascorbic Acid (Vitamin C) (V itamin C) 500 mg tablet Discontinued 4000 MG PO November 26, 2019 4:18pm September 22, 2022 9:07am Start: 04-03-2017 End: 11-26-2019 take 1 tablet by mouth once daily Ascorbic Acid (Vitamin C) (Vitamin C) 500 mg Tablet Discontinued 500 MG PO Daily 0 April 03, 2017 1:00am November 26, 2019 4:18pm take 1 tablet by natalia th once daily Ascorbic Acid 1,000 mg tablet Take 1 tablet by mouth once daily. 0 Active Comment on above: Take 1 tablet by natalia th once daily. calcium carbonate 1500 mg oral tablet (20 sources) Start: 11-26-2019 End: 07-31-2023 take 1 tablet by mouth twice daily Calcium Carbonate (Calcium 600) 600 mg calcium (1,500 mg) Tablet Discontinued 600 MG PO Twice daily November 26, 2019 12:00am July 31, 2023 7:16pm Calcium 600 MG T ABS TAKE 2 TABLET Daily Quantity: 0 Refills: 0 Ordered: 05-Jul-2022 DO Active Calcium 600 MG T ABS TAKE 1 TABLET DAILY. Quantity: 0 Refills: 0 Ordered: 15-Apr-2021 DO Active Comment on above: Take by mouth two ti mes a day. calcium carbonate 1250 mg / cholecalciferol 200 unt oral tablet (19 sources) Vitamin D Start: 7 End: 0 take 1 tablet by mouth twice daily Calcium Carbonate-Vitamin D3 (Oyster Shell Calcium-Vit D3) 500 mg(1,250mg) -200 unit Tablet Discontinued 1 TAB PO Twice daily 0 April 03, 2017 1:00am November 26, 2019 4:17pm Jmpgewvtc-Uxqdcthm-Spr-H yalur (Joint Health) 40-10-5-3.3 mg Tablet (11 sources) Start: 3 End: 4 take 1 tablet by mouth once daily Tjcmvmkvb-Mckrpbru-Fz r-Hyalur (Joint Health) 40-10-5-3.3 mg Tablet Discontinued 1 TAB PO Daily September 22, 2022 12:00am July 31, 2023 7:16pm Start: 09-22-2022 take 1 tablet by natalia th once daily Nppywzobh-Ycmzlwbe-Ngx-Hyalur (Joint Hea lt) 40-10-5-3.3 mg Tablet Active 1 TAB PO Daily September 21, 2022 11:00pm Start: 09-22-2022 take 1 tablet by natalia th once daily Iuihtmvlw-Szzntddy-Gcg-Hyalur (Joint Hea lt) 40-10-5-3.3 mg Tablet Active 1 TAB PO Daily September 22, 2022 12:00am carvedilol 12.5 mg oral tablet (20 sources) alpha-Adrenergic Germán, beta-Adrenergic Germán Start: 03-14-2017 End: 11-26-2019 take 12.5 mg by mouth twice daily Carvedilol Discontinued 12.5 MG PO Twice daily 0 April 03, 2017 1:00am November 26, 2019 4:14pm Start: 10-29-2012 take 1 mg by mouth twice daily Coreg 6.25 mg Tab mg tab(s), Oral, BID, Refills(s) 0 Start Date: 09/18/18 Status: Ordered Comment on above: Take 1 tablet by natalia twice daily. cephalexin 500 mg oral capsule (14 sources) Cephalosporin Antibacterial Start: End: take 500 mg by mouth twice daily Cephalexin Discontinued 500 MG PO Twice daily 26 01January 10, 2022 12:00am September 22, 2022 9:08am cholecalciferol 0.05 mg oral tablet (20 sources) Vitamin D Start: 020 End: 024 take 1 tablet by mouth once daily Cholecalciferol (Vitamin D3) (Vitamin D3) 50 mcg (2,000 unit) Tablet Discontinued 50 MCG PO Daily November 26, 2019 12:00am July 31, 2023 7:17pm take 1 capsule by mouth once shelly ly cholecalciferol (Vitamin D-3) 50 mcg (2,000 unit) capsule Take 1 capsule (50 mcg) by mouth once daily. 0 Active clindamycin 300 mg oral capsule (8 sources) Lincosamide Antibacterial Start: 11-23-2022 End: 07-31-2023 take 600 mg by mouth three times daily Clindamycin Hcl Discontinued 600 MG PO Three times daily 03 10November 23, 2022 12:00am July 31, 2023 7:17pm cobamamide 0.1 mg / vitamin b12 5 mg sublingual tablet (10 sources) Vitamin B12 Start: 09-25-2022 End: 07-31-2023 Cyanocobalamin-Cob amamide (B12) 5,000-100 mcg Lozenge Discontinued 1 LOZENGE LOZENGE Daily September 25, 2022 12:00am July 31, 2023 7:17pm Start: 09-25-2022 Cyanocobalamin -Cobamamide (B12) 5,000-100 mcg Lozenge Active 1 LOZENGE SUBLINGUAL Daily September 25, 2022 12:00am colestipol hydrochloride 1000 mg oral tablet (8 sources) Bile Acid Sequestrant Start: 11-23-2022 End: 11-23-2022 take 1 g by mouth once daily Colestipol Discontinued 1 GM PO Daily November 23, 2022 12:00am November 23, 2022 5:42pm cyclobenzaprine hydrochloride 5 mg oral tablet (19 sources) Muscle Relaxant Start: 04-03-2017 End: 11-26-2019 take 5 mg by mouth every eight hours Cyclobenzaprine Discontinued 5 MG PO Q8H 0 April 03, 2017 1:00am November 26, 2019 4:12pm 1 ml denosumab 60 mg/ml prefilled syringe (2 sources) RANK Ligand Inhibitor denosumab (PROLIA) 60 mg/mL Inject subcutaneously once every 6 months. 0 Active Comment on above: Inject subcutaneousl y once every 6 months. diphenhydrAMINE hydrochloride 25 mg oral capsule (19 sources) Histamine-1 Receptor Antagonist Start: 04-03-2017 End: 11-26-2019 take 25 mg by mouth every six hours Diphenhydramine Hcl Discontinued 25 MG PO Q6H 0 April 03, 2017 1:00am November 26, 2019 4:14pm docusate sodium 100 mg oral capsule (20 sources) Start: 04-24-2023 take 1 capsule by mouth every twelve hours as needed docusate sodium (COLACE) 100 mg capsule Take 1 capsule by mouth two times a day as needed for constipation. 30 capsule 0 04/24/2023 Active Start: 04-03-2017 End: 11-26-2019 take 100 mg by mouth twice daily Docusate Sodium Discontinued 100 MG PO Twice daily 0 April 03, 2017 1:00am November 26, 2019 4:12pm Comment on above: Take 1 capsule by mo uth two times a day as needed for constipation. erythromycin 0.005 mg/mg ophthalmic ointment (20 sources) Macrolide, Macrolide Antimicrobial Start: 01-10-2022 End: 09-22-2022 Erythromycin Discontinued 1 APPLIC OPHTHALMIC Three times daily January 10, 2022 5:45pm September 22, 2022 9:09am Start: 10-25-2021 End: 01-10-2022 Erythromycin Discontinued 1 APPLIC OPHTHALMIC Q6H 3.5 October 25, 2021 12:00am January 10, 2022 5:46pm heparin sodium, porcine 5000 unt/ml injectable solution (19 sources) Unfractionated Heparin, Anti-coagulant Start: 04-03-2017 End: 11-26-2019 inject 5000 [IU] by subcutaneous injection every twelve hours Heparin (Porcine) Discontinued 5000 UNIT SUBCUT Every 12 hours 0 April 03, 2017 1:00am November 26, 2019 4:11pm hydroCHLOROthiazide 12.5 mg oral tablet (19 sources) Thiazide Diuretic Start: 04-03-2017 End: 10-25-2021 take 12.5 mg by mouth once daily Hydrochlorothiazide Discontinued 12.5 MG PO Daily 0 April 03, 2017 1:00am October 25, 2021 11:43am levoFLOXacin 750 mg oral tablet (19 sources) Quinolone Antimicrobial Start: 03-18-2017 End: 03-25-2017 take 750 mg by mouth every twenty-four hours Levofloxacin Discontinued 750 MG PO Q24H 7 March 18, 2017 1:00am March 25, 2017 1:02am levothyroxine sodium 0.05 mg oral tablet (4 sources) l-Thyroxine Start: 01-01-2023 take 1 tablet by mouth once levothyroxine (SYNTHROID) 50 mcg tablet Take 1 tablet by mouth every afternoon. 0 01/01/2023 Active Comment on above: Take 1 tablet by natalia th every afternoon. linseed oil 1000 mg oral capsule (2 sources) take 1 capsule by mouth once daily Flaxseed Oil 1,000 mg cap Take 1 capsule by mouth once daily. 0 Active Comment on above: Take 1 capsule by mo uth once daily. meclizine hydrochloride 25 mg oral tablet (18 sources) Antiemetic Start: 10-29-2021 End: 09-22-2022 take 25 mg by mouth every eight hours Meclizine Discontinued 25 MG PO Q8H October 29, 2021 12:00am September 22, 2022 9:09am over the counter MULTIVITAMIN ORAL (2 sources) take 1 tablet by mouth once daily MULTIVITAMIN ORAL Take 1 tablet by mouth once daily. 0 Active Comment on above: Take 1 tablet by natalia th once daily. Multivitamin With Folic Acid (Thera) 400 mcg Tablet (19 sources) Start: 04-03-2017 End: 01-10-2022 take 1 [...] / nitrofurantoin, monohydrate 75 mg oral capsule (19 sources) Nitrofuran Antibacterial Start: 10-23-2021 End: 10-29-2021 take 2 capsules by mouth once daily at mealtime Nitrofurantoin Monohyd/M-Cryst (Macrobid) 100 mg Capsule Discontinued 100 MG PO Twice daily October 23, 2021 12:00am October 29, 2021 11:43am must administer with a meal/food - ON DAY 2 OF nortriptyline 25 mg oral capsule (20 sources) Tricyclic Antidepressant Start: 09-25-2022 End: 07-31-2023 take 25 mg by mouth once daily Nortriptyline Discontinued 25 MG PO Daily September 25, 2022 12:00am July 31, 2023 7:18pm Start: 09-18-2018 take 25 mg by mouth once daily nortriptyline 25 mg, Oral, Daily, Refills(s) 0 Start Date: 09/18/18 Status: Ordered Start: 03-14-2017 End: 09-22-2022 take 25 mg by mouth once daily at bedtime Nortriptyline Discontinued 25 MG PO Daily at bedtime 0 April 03, 2017 1:00am September 22, 2022 9:09am omega-3/dha/epa/fish oil (OMEGA-3 FISH OIL ORAL) (2 sources) Start: 11-06-2022 omega-3/dha/epa/fish oil (OMEGA-3 FISH OIL ORAL) Take 1 tablet by mouth once daily. 0 11/06/2022 Active Comment on above: Take 1 tablet by natalia th once daily. omeprazole 20 mg delayed release oral capsule (18 sources) Proton Pump Inhibitor Start: 10-29-2021 End: 01-10-2022 take 20 mg by mouth twice daily Omeprazole Discontinued 20 MG PO Twice daily October 29, 2021 12:00am January 10, 2022 5:51pm ondansetron 4 mg disintegrating oral tablet (18 sources) Serotonin-3 Receptor Antagonist Start: 10-29-2021 End: 09-22-2022 take 4 mg by mouth every six hours Ondansetron Discontinued 4 MG PO Q6H October 29, 2021 12:00am September 22, 2022 9:10am OTC NUTRITIONAL SUPPLEMENT (2 sources) take 1 tablet by mouth once daily OTC NUTRITIONAL SUPPLEMENT Take 1 tablet by mouth once daily. [facility] 0 Active Comment on above: Take 1 tablet by natalia th once daily. Joint [facility] pantoprazole 20 mg delayed release oral tablet (8 sources) Proton Pump Inhibitor Start: 11-24-2022 End: 07-31-2023 take 1 tablet by mouth once daily Pantoprazole (Protonix) 20 mg tablet,delayed release (DR/EC) Discontinued 20 MG PO Daily 60 November 24, 2022 12:00am July 31, 2023 7:18pm predniSONE 20 mg oral tablet (20 sources) Start: 10-25-2021 End: 01-10-2022 take 60 mg by mouth once daily at mealtime Prednisone Discontinued 60 MG PO Daily 27 10October 29, 2021 11:42am January 10, 2022 5:52pm administer with food or milk, complete course previously started sennosides, senior living 8.6 mg oral tablet (19 sources) Start: 04-03-2017 End: 11-26-2019 take 2 tablets by mouth once daily Sennosides (Senna Lax) 8.6 mg Tablet Discontinued 2 TAB PO DAILY@12 0 April 03, 2017 1:00am November 26, 2019 4:11pm SITagliptin 100 mg oral tablet (8 sources) Dipeptidyl Peptidase 4 Inhibitor Start: 11-23-2022 End: 11-23-2022 take 1 tablet by mouth once daily Sitagliptin Phosphate (Januvia) 100 mg Tablet Discontinued 100 MG PO Daily November 23, 2022 12:00am November 23, 2022 5:42pm traMADol hydrochloride 50 mg oral tablet (1 source) Opioid Agonist Start: 07-18-2023 take 1 tablet by mouth four times daily as needed traMADol (ULTRAM) 50 mg tablet take 1 tablet by mouth four times a day as needed 0 07/18/2023 Active Comment on above: take 1 tablet by natalia th four times a day as needed triamcinolone acetonide 1 mg/ml topical cream (5 [...] MG PO Q8H 27 10October 29, 2021 11:42am January 10, 2022 5:52pm complete course previously ordered vitamin b12 0.1 mg oral tablet (5 sources) Vitamin B12 Start: 10-30-2018 cyanocobalamin (VITAMIN [...] on above: Take 1,000 mcg by mo pah once daily. Vitamin B12 TABS (20 sources) [...] Onset: 2 11-26-2019 Chronic Chronic kidney disease (2 sources) Chronic kidney disease; Translations: [Chronic kidney disease, unspecified] Onset: 3 03-29-2023 Chronic Conditions associated with dizziness or vertigo (20 sources) Dizziness; Translations: [Dizziness and giddiness] 10-28-2021 Episodic Conduction disorders (11 sources) Cardiac pacemaker in situ; Translations: [Cardiac pacemaker in situ] Onset: 3 02-26-2023 Chronic Congestive heart failure; nonhypertensive (20 sources) Heart failure with normal ejection fraction; Translations: [Unspecified diastolic (congestive) heart failure] Onset: 3 10-28-2021 Chronic Coronary atherosclerosis and other heart disease (20 sources) Coronary arteriosclerosis; Translations: [Coronary atherosclerosis of unspecified type of vessel, [place] or graft] Onset: 3 10-28-2021 Chronic Deficiency and other anemia (19 sources) Anemia; Translations: [Anemia, unspecified] 03-19-2017 Episodic Disorders of lipid metabolism (20 sources) Hyperlipidemia; Translations: [Other and unspecified hyperlipidemia] Onset: 3 01-23-2023 Chronic E Codes: Fall (20 sources) Fall; Translations: [Unspecified fall, initial encounter] 03-19-2017 Episodic Essential hypertension (20 sources) Essential hypertension; Translations: [Unspecified essential hypertension] Onset: 3 10-21-2021 Chronic Fracture of neck of femur (hip) (19 sources) Closed intertrochanteric fracture; Translations: [Displaced intertrochanteric [...] Neoplasms of unspecified nature or uncertain behavior (4 sources) Monoclonal gammopathy of uncertain significance; Translations: [Monoclonal gammopathy] 10-29-2012 Chronic Osteoarthritis (20 sources) Osteoarthritis; Translations: [Osteoarthrosis, unspecified whether generalized or localized, site unspecified] Chronic Osteoporosis (4 sources) Age-related osteoporosis without current pathological fracture; Translations: [AGE-REL OSTEOPOR W/O CURR PATH FX] Onset: 3 Chronic Other aftercare (20 sources) Drug therapy finding; Translations: [Long-term (current) use of other medications] Episodic Other aftercare (20 sources) Long-term current use of anticoagulant; Translations: [auto vinyl top installer (current) use of anticoagulants] Onset: 3 10-28-2021 Episodic Other aftercare (5 sources) Encounter for therapeutic drug level monitoring; Translations: [ENC THERAPEUTC DRUG LEVL MONITORING] Onset: 3 Episodic Other aftercare (2 sources) Taking high risk medication; Translations: [Other [facility] (current) drug therapy] Onset: 3 02-26-2023 Episodic Other circulatory disease (19 sources) H/O: atrial fibrillation; Translations: [Personal history of other diseases of the circulatory system] 10-28-2021 Episodic Other circulatory disease (19 sources) Low blood pressure; Translations: [Hypotension, unspecified] 03-16-2017 Episodic Other circulatory disease (6 sources) Personal history of other diseases of the circulatory system; Translations: [Personal history of other diseases of circulatory system] 10-28-2021 Episodic Other connective tissue disease (19 sources) Foot pain; Translations: [Pain in unspecified foot] 03-23-2017 Episodic Other connective tissue disease (19 sources) Pain in left arm; Translations: [Pain in left arm] 11-28-2019 Episodic Other diseases of veins and lymphatics (14 sources) Venous insufficiency of leg; Translations: [Venous (peripheral) insufficiency, unspecified] Onset: 3 01-23-2023 Episodic Other ear and sense organ disorders (3 sources) Otorrhagia of left ear; Translations: [Otorrhagia, left ear] 07-13-2023 Episodic Other eye disorders (14 sources) Chemosis of conjunctiva; Translations: [Conjunctival edema, unspecified eye] 01-10-2022 Episodic Other injuries and conditions due to external causes (3 sources) Foreign body in left ear, initial encounter; Translations: [Foreign body in ear] 07-12-2023 Episodic Other lower respiratory disease (17 sources) Dyspnea on exertion; Translations: [Shortness of breath] Onset: 3 01-23-2023 Episodic Other lower respiratory disease (1 source) Shortness of breath; Translations: [Shortness of breath] Onset: 4 Episodic Other nervous system disorders (20 sources) Alvarado's palsy; 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] Onset: 3 10-25-2021 Episodic Other nervous system disorders (19 sources) Abnormal gait; Translations: [Unspecified abnormalities of gait and mobility] 03-19-2017 Episodic Other nervous system disorders (1 source) Other acute postprocedural pain; Translations: [Postoperative pain] Onset: 4 Episodic Other nutritional; endocrine; and metabolic disorders (20 sources) Obesity; Translations: [Obesity, unspecified] Chronic Other nutritional; endocrine; and metabolic disorders (2 sources) Body mass index 30+ - obesity; Translations: [Body mass index (BMI) 34.0-34.9, adult] Onset: 3 02-26-2023 Chronic Other nutritional; endocrine; and metabolic disorders (2 sources) Obese class I; Translations: [Obesity, unspecified] Onset: 4 04-24-2023 Chronic Other nutritional; endocrine; and metabolic disorders [...] Onset: 3 01-23-2023 Chronic Pulmonary heart disease (2 sources) Pulmonary hypertension; Translations: [Pulmonary hypertension, unspecified] Onset: 3 03-29-2023 Chronic Residual codes; unclassified (19 sources) Postprocedural state finding; Translations: [Other specified postprocedural states] 03-17-2017 Episodic Residual codes; unclassified (19 sources) Patient encounter status; Translations: [Encounter for prophylactic measures, unspecified] 03-19-2017 Episodic Residual codes; unclassified (2 sources) Postoperative state; Translations: [Other specified postprocedural states] 05-21-2023 Episodic Superficial injury; contusion (1 source) Abrasion of left ear, initial encounter; Translations: [Abrasion of left ear, initial encounter] Onset: 4 Episodic Syncope (20 sources) Near syncope; Translations: [Syncope and collapse] Onset: 3 01-23-2023 Episodic Thyroid disorders (4 sources) Hypothyroidism; Translations: [Unspecified acquired hypothyroidism] Onset: [...] site not specified] 03-31-2017 Episodic Viral infection (19 sources) Viral disease; Translations: [Viral infection, unspecified] [...] Onset: 11-19-2022 10-28-2021 Episodic Nonspecific chest pain (19 sources) Chest pain; Translations: [Chest pain, unspecified] Onset: 11-19-2022 11-17-2022 Episodic Other aftercare (9 sources) senior care (current) use of anticoagulants; Translations: [Long-term (current) use of anticoagulants] Onset: 09-06-2022 10-28-2021 Episodic Other aftercare (2 sources) Other [facility]p (current) drug therapy; Translations: [Other m[facility]p (current) drug therapy] Onset: 01-23-2023 Episodic Other nervous system disorders (12 sources) Alvarado's palsy; 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] Onset: 12-20-2021 10-28-2021 Episodic Other nervous system disorders (2 sources) H/O: Alvarado's palsy; Translations: [Personal history of other diseases of the nervous system and sense organs] Onset: 03-29-2023 03-29-2023 Episodic Other screening for suspected conditions (not mental disorders or infectious disease) (20 sources) Abnormal results of function studies of other organs and systems; Translations: [Nonspecific abnormal results of function study] Onset: 09-25-2022 09-25-2022 Episodic Other upper respiratory disease (1 source) Other specified disorders of nose and nasal sinuses; Translations: [OTH SPEC D/O NOSE NASAL SINUSES] Onset: 10-21-2021 Episodic Residual codes; unclassified (19 sources) Other specified health status; Translations: [Statin intolerance] Onset: 01-23-2023 02-26-2023 Episodic Unclassified (20 sources) Never smoked tobacco; Translations: [Never a smoker] Unclassified (1 source) CONTACT W/AND (SUSP) EXPOS COVID-19; Translations: [CONTACT W/AND (SUSP) EXPOS COVID-19] Onset: 10-20-2021 Unclassified (1 source) Onset: 02-26-2023 02-26-2023 Results Test Name Value Interpretation Reference Range Facility Coding Summaryon 08-24-2023 Coding Summary HTMLBase 64 SxsdrrmcJPh7kIo+PGhlYWQ+PE 4WCDWiR77xwHVonZ2iO5AKOKrL XagqROGZYAnMWiOortOhXX8qfH NjZXJu IC8+TA9vNWPsBrvmxVSwk9M7xO P8F56ofx8eWKiznPZ4XAWrLyRe xvcup5mlfRk2XRgbIbmvGyHz EZMknI08URH6aC60Vn85xIJsjS Fqp4afwTp1IeMnKTBbEBF8yWgd VXyhk1WgOUWvX57suZDic0E8 EHVhcWbzqDTxOwJgkUR5yS9sAX onzcshf6piribpPdw3xk44yIIf a2T5mED5S4GlaqW0GGUvhNAb PsxuaLJWfS3ymvhch5kcysndDr NlPGYqUDx6LPi0GINyhGzwCrFx YR52LSO0XSPjfbCfW3ZfYOQk kJkrGbT7z2A2Tv1UJ2XIJresV9 VNTUFSWTwvdGQ+VX60yd75K7Wc AxopGxl0TEQfAWQ7xTN8vO7e YZRdGMmpi8C7yOX4F7VzveNvac 3gq4azXLUmAPukH51wjTWfu6B4 PGTwdWM3XRAkiVppFxSykP63 Oyc+FKYipDwbb7OnEbwtu3fxc0 drnIy0TzttFDPaopKqiLpcYFO0 f5SsEz2qRTObvYC1hLR7wC0r SvQyIxH7EBhsW489EuUkrYTmKu eqD80pE1YwiWB+DEEqKqk7WSFa pMdfPM2fS1GbULLoxtbmyWHk yBmsQP7mVNRuongiPHHgzF0uQF ApU0w8JvYzXzY8AQidQ4HvMIPh kgqlGw33pA7aSjOxSlZ8LTpc Q9HvlmZ1TYBfvERwVKtrQHB7L8 1fh8N5NZAuHRZmUCR6tLG2iN3q bGlnbjogbGVmdDsgdmVydGlj SLysUUntO421SKDnyEtrAlVzAU luZyBEYXRlOiAgMDUvMTcvMjAy NDwvdGQ+IENtCCS5pShdBQOc pZFdRHyyWq0eiUewfInwBV1fCA IcdgbtIOTelY8pHCNgwXEbmJna OT1yWWBibxzqk654SiNsZYG5 RSAimKIaX5SjmI3tPvNgBRPyUX NtS3QqqTEeIEmhR851IOdsJyI4 AMLkreCxF4EmVBFvnAeuAlY4 w7O2Wy4Kv7NjttgrD8YbbTElJd ItYuxlYAq3N6ObDvjeyEJ+PC90 UZAvLL97CLb1BJA2rSgvLJjr XGOfN2RabQ9lRmDbGSAwSVLsCt c+PHRhYmxlIHdpZHRoPScxMDAl IdVmpEvbPJ6sFx1dTMRnFCZp oLeghFKcZaHji4vdPARsKXltGV 9vgAatN4BncBB0QVRie5m5Ap88 S78wE9NdmZD+AVKepOL7jJK4 sR2xZoRkJfE3GShqG916HsWojC XmByuhd8rkq5elaPu0ZoA9OGLg gbKpzPpjGFP7c5UqTg99N39s IHdpZHRoPSIxNSUiIHZhbGlnbj 3piU2pCk0+GFFqgWY8kGH7fP7i EzBqYqQ1XIqeY695PjJuxOSo Fccdp5oun5ycmNr5AgCaAIXhaf BesOwoMCP5u0AzZu45L9DxlNor y6CsKje6nk29gGGzv9G1xSM5 C4XhHXNntkqppXGmaHvcBP0sKC EwsfvcEKJzgM3jRNQtX6i5SdKh ScB8CBfbJ6RfuqE0KBMvsPXd DZEygXHLoA8ljbeqx8fbgdwtXd JsIPEtOGj4FLr6BBNroZdtYkMp HYU5TtQ4UFN5tKRriP4zxCzj rpuhcF3xAsf+ZZU9sWXofQMXIU 1lOjwvdGQ+IXCvFXB3eGkxJIjo LZIqcJ2yHATeN4m3WmGaBdQ6 UUocB7GuuyT8DABzxOKdCWSbaA PHgP4eouuvi3gzuegiJwFaJCYq PCh6UJu9PESrmIkbPzXpWLD2 MtC2EDT8pVGqzC0rePmyazjuoE 9wOyc+XvsdnOvrBML4PLv5H7It Tyy3PRPjfRcgWZ6unQPsHUrq Ie4deTcpxAsdLN0rOPUejjigb2 08OuFul7qnZMDxoTRaZGzfNFW6 A56ap4Q9DEAlJLOfXHP1dXS7 yB0rjJahsujafMXlcTjtjuGubA veOZmpXEbwU403EUIabUlzSpZr TWk1G0KhRpc7USAxmKaiHJ4l nXGiUBpxZs8voEggwHnnPR0gMT Goamfrd949SjWoc9vdSQZzxYGp FBhnQMO5G98mu1L9HMXfXYCc NHT8vVE5xP9jrWsuvqkamZEfoI waxjVqaZahKDksPUauQ008VZFf vDsfQdAnmTl5E7OxKjt5FXXm kGfjTM8lcQOkUTqvPd9gtHhmkZ lcVJ9mTWRzopbmc860MoMzn9gn KFZudNQqUCbxYXQ2P80xk7J3 JMOhGZDiNIG8mBX6sW2vgYfkge ogbGVmdDsgdmVydGljYWwtYWxp Q787AZBxoEudNwBuqIrskfSi CTcwDKf6P6RsWdxhxEM+PC90YW KdQZ76wQRtdWBau1claSo7MhLs INHwVSE8kTozUXofs1QfJZXn I92htCDgm0O3PARjdPoujSYwTt FcoRK0uN5kGBcgmxyam1chjyop Btkvn1nddb37pC53R80hVJbx TGNuKTKmHNNwHJPzsVamfo2sqF 9wIi8+WXBvvJH7lCN3sL7kUOHq IqI5TUnwU023UtRxaFJyIhcl z3jmt3bxvUe3InZ1NMVlfpLkrE prRIA9j1UxGd23E22eYKkzFGMi YKBmGAUtAMXxtAuarr6coP6v Ii8+ABVbvAK0nXD2jE4kEgKsVz R9KVriX426ShMluOIhLuwtY90d A6UtzHZ+DFOqPkn7FWYocBly EV7gcLOrPWetOn7dTQW9LwDkJd FdZFcqJ4UsMOXrjavfogocuOY3 FWCmDBDkjJ45Cv5kaZnrKEOe iIQKoQ1wdyhsk2ozpspgGtTkFC EsRWr3ZVo1AYUehOptZzJsTBB8 NhU2ZCM7iNTrjJ2jsGdzxygy nP3uO7CrDRAmkkzvTn84lV4dPy UfDfK8EUbpKdh+LPnYKTOuIZ9G UcmRXO6HNYa9H9XtCof3XZSe qCjvVV1kmINzSSgnRl9coMvhxD crGK3rYQSttqguGFJtlZ2mKRJg lIBcfFqpWI4kOADsnniib784 UdCmPSG9DKQzjKPwN6DyjU3pWl CtLDAbMQLcM8EhfHApETrgY881 CDuiFaZ0DOHshzAmW6MiYMGb bAwzInB0t7O9Qk5dCl8sFq8qDA T1BN63WA98vMRgk3C8lLC2R5Wt VNScndycuwpqvMT6FACvPZYe wM49yJGqVHsfVh2sn2U6m338HD BkWZVutG95Mr5iwIcyTJRuuRQR rY8svesxc5kgwbibBePwDPZf SRc1JCt5VULxrRezChWdADN8Lw T3GRQ3wZVilR7gwDfyfuhmkF5l Oyc+MNseFAGxvqT4I1AcAcn4 MJKwkBylVZ6nqJBbSGexBk1vhC ovtBcfRD9dFQFjrwryWPCysS3n ZOKnuMIatEplIB5zFEMvhpqw v830YyPnVDQ2VORctLGpH0WjbU 6yKtCzYWGbPCIxE2LsaIRqDRtg V581TNwmUlC2XBRsfzJcA5We HZMsbTksYoJ7g5V9En7OST8QVC A6K8GkXyr8LXAebIicBH0vbBOr YCcsBu6srYthpXziWS5mFPPd jzgaPPFpkN1mLIIdnJNcfPozSY 9hOGBeqrxhh069GfBbZKV4EDEy qFCaT4YnmT8rUiQoANLuUTBm B5UdlOByUWrwD629HZqzXbA5YU AutiRsQ0QdHLSdyDnhRbF2b3U6 Ap3UhWBtP3UyT0i6V9HfYpwa dHI+PY97KBZjJZ79hPCraVHfr6 yavEy3XwWfLWFcYHW7lQkiTIcz s1ZwLVRjO51yrONdt2V3TSQm uLjpfVGuJoBgsFK4jR3hDZdqsf rfr2qufgjpKjpea0hnaf73jK56 G10eMSsoXGEkWRHjXHJhVJAt gTjxfg9kmG0yCq6+MQTppVC3qC J9xX4gBgUxYhT6BCcaV591ViTw aRRuOezrp2ejr2ijfAx0RpJs YMEhozEuzGndPPI1x2PbGw68D4 9sIHdpZHRoPSIyMCUiIHZhbGln ux0cwM1xTo6+PS1zm4zqvg42 dG07fUK+AACjFYO6lMkeQIozGJ SywR6uZJfaHzP2RJSvSzKnyP42 kJCaHYmtSn8btCcdnHtpVR2c KPOosbkry104YfHkv6qgMDJwhM BeHVccJOJ1R12pd4Q7TVIhCNIe TSO7hMB0zM9xoZwweoodoQSc hHinswUpvTfsLGdyLJtzO090AQ HcgPniTpVjbDXeP5odblJNTN3l OjwvdGQ+AIUoWRA8cPwhREqw NAZsrV3gEEJmZ4z4WnJmAcG8BH biA0HxbgB9ZITvoDJnNIKymVAP eQ2lcthsq0vdmyuaAyUwNLBu PYl1NPo6XMWnnIlcGuWvFGI7Sa I9ZCK3mCYljY1xfLvjhghcrS0a Oyc+RklOOjwvdGQ+PHRkIHN0 tAubJIfxSXWurT5jUFKsX6h0Bi OxPfL1PEawZ3EyrvP7ZDVuiFHr WWKswOCNgQ2tqtxem2whxchy WbVkUOAxYUl8ZWf5TNAwqXgyXa QyPVW3UbK1UDZ2hMCkkC8deDaf ntstoR2hFsk+TVJOOjwvdGQ+ UEHlMEO7pXidGUpaRQQasY4kDV YlK0x5WvTsQjL5QZeoX0IurhZ7 FWHsgZDoALAtiNGLwA5vjxhw d4bmuxxrEkEgSDGhDDf1QKc6SB JdrDpmFwVdAQN2CxT7TXB6qYMu tY7uzRssxnkyhV9vRnb+UGF5 TAC1SK88IC97D1TxZbiedKJwdA U+PHRhYmxlIHdpZHRoPScxMDAl JbUueCsnYO9rZg0iXKNvVZDh bGx (more content not included)... Normal [facility] .Auto Diff 08-18-2023 Auto [place] % 9 % Normal 12 [facility] Comment on above: Performed By: #### 1 [id number], [id number], [id number], [id number], [id number] #### [facility] (DEFAULT) [address] [place] [id number] Baso Abs# 0.1 x10 Normal 0.0-0.2 [facility] Comment on above: Performed By: #### 1 [id number], [id number], [id number], [id number], [id number] #### [facility] (DEFAULT) [address] [place] [address]185 Basophils/100 WBC (Bld) 1.2 % Normal 0.2-2.0 [facility] Comment on above: Performed By: #### 1 [id number], [id number], , [id number], [id number], [id number] #### [facility] (DEFAULT) [address] [place] [address] 01140 Eos Abs# 0.1 x10 Normal 0.0-0.4 [facility] Comment on above: Performed By: #### 1 [id number], [id number], [id number], [id number], [id number] #### [facility] (DEFAULT) [address] [place] [address] 83876 Eosinophils/100 WBC (Bld) 1.1 % Normal 0.9-4.0 [facility] Comment on above: Performed By: #### 1 [id number], [id number], [id number], [id number], [id number] #### [facility] (DEFAULT) [address] [place] [address] 93684 Lymph Abs# 1.0 x10 Low 1.3-2.9 [facility] Comment on above: Performed By: #### 1 [id number], [id number], [id number], [id number], [id number], [id number] #### [facility] (DEFAULT) [address] [place] [address] Lymphocytes/100 WBC (Bld) 15 % Normal 14-48 [facility] Comment on above: Performed By: #### 1 [id number], [id number], [id number], [id number], [id number] #### [facility] (DEFAULT) [address] [place] [address] Davie Abs# 0.6 x10 Normal 0.0-0.8 [facility] Comment on above: Performed By: #### 1 [id number], [id number], [id number], [id number], [id number], [id number] #### [facility] (DEFAULT) [address] [place] [address] Neut Abs# 5.1 x10 Normal 1.5-9.2 [facility] Comment on above: Performed By: #### 1 [id number], [id number], [id number], [id number], [id number], [id number] #### [facility] (DEFAULT) [address] [place] [address] Neutrophils/100 WBC (Bld) 74 % Normal 44-88 [facility] Comment on above: Performed By: #### 1 [id number], [id number], [id number], [id number], [id number], [id number] #### [facility] (DEFAULT) [address] [place] [address] CBC w/ Auto Diffon 4 Erythrocyte distribution width (RBC) [Ratio] 15.9 % High 11.5-15.0 [facility] Comment on above: Performed By: #### 1 [id number], [id number], [id number], [id number], [id number] #### [facility] (DEFAULT) [address] [place] [address] Hematocrit (Bld) [Volume fraction] 38.4 % Normal 33.7-40.4 [facility] Comment on above: Performed By: #### 1 [id number], [id number], [id number], [id number], [id number] #### [facility] (DEFAULT) [address] [place] [address] Hemoglobin (Bld) [Mass/Vol] 12.5 g/dL Normal 11.3-15.9 [facility] Comment on above: Performed By: #### 1 [id number], [id number], [id number], [id number], [id number], [id number] #### [facility] (DEFAULT) [address] [place] [address] Man Diff? Auto Invalid Interpretation Code [facility] Comment on above: Performed By: #### 1 [id number], [id number], [id number], [id number], [id number] #### [facility] (DEFAULT) [address] [place] [address] MCH (RBC) [Entitic mass] 33 pg Normal 24-34 [facility] Comment on above: Performed By: #### 1 [id number], [id number], [id number], , [id number], [id number] #### [facility] (DEFAULT) [address] [place] [address] MCHC (RBC) [Mass/Vol] 33 g/dL Normal 26-37 [facility] Comment on above: Performed By: #### 1 [id number], [id number], [id number], [id number], [id number], [id number] #### [facility] (DEFAULT) [address] [place] [address] MCV (RBC) [Entitic vol] 102 fL High 81-100 [facility] Comment on above: Performed By: #### 1 [id number], 9574503, [id number], [id number], 9490358, 73451872 #### [facility] (DEFAULT) [address] [place] [address] Platelet 165 x10 Normal 138-427 [facility] Comment on above: Performed By: #### 1 [id number], 1021894, [id number], [id number], 0287600, 53599496 #### [facility] (DEFAULT) [address] [place] [address] Platelet mean volume (Bld) [Entitic vol] 8.6 fL Normal 6.3-10.2 [facility] Comment on above: Performed By: #### 1 [id number], 6943680, [id number], [id number], 7452091, 78900536 #### [facility] (DEFAULT) [address] [place] [address] RBC 3.76 x10 Normal 3.70-5.30 [facility] Comment on above: Performed By: #### 1 [id number], 9113185, [id number], 3875004743, 2185396, 69528700 #### [facility] (DEFAULT) [address] [place] [address] WBC 6.8 x10 Normal 3.5-10.5 [facility] Comment on above: Performed By: #### 1 [id number], 4182739, 8901239460, [id number], 5004693, 11714943 #### [facility] (DEFAULT) [address] [place] [address] CMP Standardon 08-18-2023 eGFR Non AA 28 mL/min/1.73m2 Invalid Interpretation Code [facility] Comment on above: Performed By: #### 1 [id number], 5050276, [id number], [id number], 0660145, 82239209 #### [facility] (DEFAULT) [address] [place] [address] eGFR AA 34 mL/min/1.73m2 Invalid Interpretation Code [facility] Comment on above: Performed By: #### 1 [id number], 4944712, [id number], 0619433245, 4187207, 21357884 #### [facility] (DEFAULT) [address] [place] [address] Albumin [Mass/Vol] 3.7 g/dL Normal 3.5-5.0 [facility] Comment on above: Performed By: #### 1 [id number], 3670569, 1629737126, [id number], 6059369, 73508771 #### [facility] (DEFAULT) [address] [place] [address] Albumin/Globulin [Mass ratio] 1.1 {ratio} Low 1.4-2.6 [facility] Comment on above: Performed By: #### 1 [id number], 6709524, [id number], 3559591795, 5696459, 00978354 #### [facility] (DEFAULT) [address] [place] [address] Alk Phos 66 IU/L Normal 32-91 [facility] Comment on above: Performed By: #### 1 [id number], 9994466, 2277768262, 1491973836, 0742311, 41226906 #### [facility] (DEFAULT) [address] [place] [address] ALT [Catalytic activity/Vol] 14.0 U/L Normal 14.0-54.0 [facility] Comment on above: Performed By: #### 1 [id number], 9430241, 8516175494, [id number], 1629148, 05423175 #### [facility] (DEFAULT) [address] [place] [address] Anion gap [Moles/Vol] 13.1 mmol/L Normal 5.0-19.0 [facility] Comment on above: Performed By: #### 1 [id number], 2280353, 1368084090, 9860699862, 1407011, 11141465 #### [facility] (DEFAULT) [address] [place] [address] 80535 AST [Catalytic activity/Vol] 21 U/L Normal 15-41 [facility] Comment on above: Performed By: #### 1 [id number], 9148233, [id number], 4554823034, 9971102, 47695765 #### [facility] (DEFAULT) [address] [place] [address] Bili Total 0.9 mg/dL Normal 0.3-1.2 [facility] Comment on above: Performed By: #### 1 [id number], 6392495, 2407177435, 4736098821, 5485903, 09588109 #### [facility] (DEFAULT) [address] [place] [address] Calcium [Mass/Vol] 8.8 mg/dL Low 8.9-10.3 [facility] Comment on above: Performed By: #### 1 [id number], [id number], [id number], [id number], [id number], [id number] #### [facility] (DEFAULT) [address] [place] [address] 00235 Chloride [Moles/Vol] 103 mmol/L Normal 101-[address] [facility] Comment on above: Performed By: #### 1 [id number], [id number], [id number], [id number], [id number], [id number] #### [facility] (DEFAULT) [address] [place] [address] 36324 CO2 [Moles/Vol] 27 mmol/L Normal 21-32 [facility] Comment on above: Performed By: #### 1 [id number], [id number], [id number], [id number], [id number], [id number] #### [facility] (DEFAULT) [address] [place] [address] 22830 Creatinine [Mass/Vol] 1.70 mg/dL High 0.60-1.30 [facility] Comment on above: Performed By: #### 1 [id number], [id number], [id number], [id number], [id number], [id number] #### [facility] (DEFAULT) [address] [place] [address] 46077 Globulin (S) [Mass/Vol] 3.2 g/dL Normal 1.5-4.3 [facility] Comment on above: Performed By: #### 1 [id number], [id number], [id number], [id number], 9093600, [id number] #### [facility] (DEFAULT) [address] [place] [address] 71438 Glucose [Mass/Vol] 117.0 mg/dL Normal 74.0-118.0 [facility] Comment on above: Performed By: #### 1 [id number], [id number], [id number], [id number], 9649685, [id number] #### [facility] (DEFAULT) [address] [place] [address] 22880 Osmolality 293 mOsm/L Invalid Interpretation Code [facility] Comment on above: Performed By: #### 1 [id number], [id number], [id number], [id number], [id number], [id number] #### [facility] (DEFAULT) [address] [place] [address] 50495 Potassium [Moles/Vol] 4.1 mmol/L Normal 3.6-5.1 [facility] Comment on above: Performed By: #### 1 [id number], [id number], [id number], [id number], 9253690, [id number] #### [facility] (DEFAULT) [address] [place] [address] 25178 Protein [Mass/Vol] 6.9 g/dL Normal 6.5-8.1 [facility] Comment on above: Performed By: #### 1 [id number], [id number], [id number], [id number], 9124789, [id number] #### [facility] (DEFAULT) [address] [place] [address] 08576 Sodium [Moles/Vol] 139.0 mmol/L Normal 136.0-144 . 0 [facility] Comment on above: Performed By: #### 1 [id number], [id number], [id number], [id number], 8740124, [id number] #### [facility] (DEFAULT) [address] [place] [address] 54717 Urea nitrogen [Mass/Vol] 53 mg/dL High 8-26 [facility] Comment on above: Performed By: #### 1 [id number], [id number], [id number], [id number], 7177231, [id number] #### [facility] (DEFAULT) [address] [place] [address] 26775 Urea nitrogen/Creatinine [Mass ratio] 31.1 mg/mg High 4.6-16.2 [facility] Comment on above: Performed By: #### 1 [id number], [id number], [id number], [id number], 2642635, [id number] #### [facility] (DEFAULT) [address] [place] [address]129 Breakpoint Chem Normal [facility] Comment on above: Performed By: #### 1 [id number], [id number], [id number], [id number], [id number], [id number] #### [facility] (DEFAULT) [address] [place] [address] Head or Brain w/o Contras ton 08-18-2023 CT Head or Brain w/o Contrast EXAMINATION: CT Spine Cervical w/o Contrast, CT Head or Brain w/o Contrast HISTORY: fall, head injury on Coumadin. COMPARISON: None. TECHNIQUE: CT head without IV contrast. CT Cervical spine without IV contrast. Coronal and sagittal reformations were performed. Dose reduction techniques were achieved by using automated exposure control and/or adjustment of mA and/or kV according to patient size and/or use of iterative reconstruction technique. FINDINGS: Head: A band of metal is noted immediately anterior to the left globe, which may represent a surgical implant, and results in beam hardening artifact. There is thinning of the bilateral optic lenses, which may be due to prior cataract surgery. Within the limits of the artifact, the intraorbital contents appear intact. The ventricles, sulci, and basilar cisterns are prominent, consistent with moderate generalized cerebral volume loss/atrophy, which may be appropriate for the patient's age. Mild hypoattenuation is scattered throughout the periventricular white matter of the supratentorial brain, consistent with chronic small vessel ischemic changes. The brain parenchyma appears otherwise normal. Atherosclerotic calcifications are noted in the distal internal carotid arteries and vertebral arteries. No intracranial hemorrhage, abnormal mass effect, or CT signs of acute infarct. The visualized paranasal sinuses and mastoid air cells are clear. No fracture is seen. Cervical spine: C2-C3 and C3-C4: Severe bilateral facet arthrosis contributes to C3-C4 moderate right foraminal stenosis. C4-C5: Severe left and moderate right facet arthrosis are present, with 2 mm of grade 1 degenerative anterolisthesis of C4 on C5. A small left lateral recess/foraminal disc-osteophyte complex contributes to moderate left foraminal stenosis. C5-C6: A broad-based disc-osteophyte complex and moderate facet arthrosis results in mild effacement of the ventral thecal sac and severe right and mild to moderate left foraminal stenosis. C6-C7: A broad-based disc-osteophyte complex which is most prominent centrally results in mild central spinal canal stenosis and moderately severe left and mild right foraminal stenosis. C7-T1: A broad-based disc-osteophyte complex and moderate facet arthrosis results in mild effacement of the ventral thecal sac and moderate bilateral foraminal stenosis. T1-T2 and T2-T3: No stenosis is seen. No fracture, traumatic malalignment, or other acute bony abnormality is seen. Atherosclerotic calcifications are noted in the bilateral carotid artery bulbs. The lung apices are clear. Left subclavian venous cardiac pacemaker is incompletely imaged. IMPRESSION: Head: 1. No acute intracranial abnormality or fracture. 2. Mild chronic small vessel ischemic changes in the periventricular white matter and moderate generalized cerebral volume loss/atrophy. 3. Band of metal immediately anterior to the left globe, which may represent a surgical implant, and results in beam hardening artifact. Cervical spine: 1. No fracture or traumatic malalignment. 2. C6-C7: A broad-based disc-osteophyte complex results in mild central spinal canal stenosis and moderately severe left and mild right foraminal stenosis. 3. Moderate degenerative changes at the remaining C4-C5 through C7-T1 levels result in mild effacement of the ventral thecal sac and moderate bilateral foraminal stenosis as detailed above (and C5-C6 severe right foraminal stenosis). Final Dictated by: Jeremie Robles MD Dictated DT/TM: 08/18/23 6:36 Signed (Electronic Signature): Jeremie Robles MD08/18/23 6:51 pm Technologist: Roger [facility] CT Spine Cervical w/o Contra kim 08-18-2023 CT Spine Cervical w/o Contrast EXAMINATION: CT Spine Cervical w/o Contrast, CT Head or Brain w/o Contrast HISTORY: fall, head injury on Coumadin. COMPARISON: None. TECHNIQUE: CT head without IV contrast. CT Cervical spine without IV contrast. Coronal and sagittal reformations were performed. Dose reduction techniques were achieved by using automated exposure control and/or adjustment of mA and/or kV according to patient size and/or use of iterative reconstruction technique. FINDINGS: Head: A band of metal is noted immediately anterior to the left globe, which may represent a surgical implant, and results in beam hardening artifact. There is thinning of the bilateral optic lenses, which may be due to prior cataract surgery. Within the limits of the artifact, the intraorbital contents appear intact. The ventricles, sulci, and basilar cisterns are prominent, consistent with moderate generalized cerebral volume loss/atrophy, which may be appropriate for the patient's age. Mild hypoattenuation is scattered throughout the periventricular white matter of the supratentorial brain, consistent with chronic small vessel ischemic changes. The brain parenchyma appears otherwise normal. Atherosclerotic calcifications are noted in the distal internal carotid arteries and vertebral arteries. No intracranial hemorrhage, abnormal mass effect, or CT signs of acute infarct. The visualized paranasal sinuses and mastoid air cells are clear. No fracture is seen. Cervical spine: C2-C3 and C3-C4: Severe bilateral facet arthrosis contributes to C3-C4 moderate right foraminal stenosis. C4-C5: Severe left and moderate right facet arthrosis are present, with 2 mm of grade 1 degenerative anterolisthesis of C4 on C5. A small left lateral recess/foraminal disc-osteophyte complex contributes to moderate left foraminal stenosis. C5-C6: A broad-based disc-osteophyte complex and moderate facet arthrosis results in mild effacement of the ventral thecal sac and severe right and mild to moderate left foraminal stenosis. C6-C7: A broad-based disc-osteophyte complex which is most prominent centrally results in mild central spinal canal stenosis and moderately severe left and mild right foraminal stenosis. C7-T1: A broad-based disc-osteophyte complex and moderate facet arthrosis results in mild effacement of the ventral thecal sac and moderate bilateral foraminal stenosis. T1-T2 and T2-T3: No stenosis is seen. No fracture, traumatic malalignment, or other acute bony abnormality is seen. Atherosclerotic calcifications are noted in the bilateral carotid artery bulbs. The lung apices are clear. Left subclavian venous cardiac pacemaker is incompletely imaged. IMPRESSION: Head: 1. No acute intracranial abnormality or fracture. 2. Mild chronic small vessel ischemic changes in the periventricular white matter and moderate generalized cerebral volume loss/atrophy. 3. Band of metal immediately anterior to the left globe, which may represent a surgical implant, and results in beam hardening artifact. Cervical spine: 1. No fracture or traumatic malalignment. 2. C6-C7: A broad-based disc-osteophyte complex results in mild central spinal canal stenosis and moderately severe left and mild right foraminal stenosis. 3. Moderate degenerative changes at the remaining C4-C5 through C7-T1 levels result in mild effacement of the ventral thecal sac and moderate bilateral foraminal stenosis as detailed above (and C5-C6 severe right foraminal stenosis). Final Dictated by: Jeremie Robles MD Dictated DT/TM: 08/18/23 6:36 Signed (Electronic Signature): Jeremie Robles MD08/18/23 6:51 pm Technologist: Roger ACE [facility] ED Clinical Summaryon 2023 ED Clinical Summary [facility] - Emergency Department [address] [place] [address]14 ED Clinical Summary PERSON INFORMATION Name: ERIN WOODS Age: 88 Years Sex: FEMALE : 1935 MRN: Acct#: Visit Reason: Fall; FALL- HEAD INJURY Arrival: 08/18/2023 16:41:53 Discharge: 08/18/2023 19:36:00 LOS: 000 02:55 Check In: 08/18/2023 16:41:53 Checkout:08/18/2023 19:36:00 Address: [address] [place] [address] PCP: LOS CHAUDHARY PROVIDER INFORMATION Provider Role Assigned Unassigned Ashely Arana ED PA 08/18/2023 16:45:43 Kwaku Santamaria MD ED Provider 08/18/2023 16:46:27 Moris Huerta RN ED Nurse 08/18/2023 16:50:41 VITALS INFORMATION Vital Sign Triage Latest Temperature Tympanic Temperature Temporal Artery Pulse Rate 100 bpm 96 bpm O2 Sat 98 % 98 % Respiratory Rate 18 br/min 18 br/min Blood Pressure /75 mmHg /75 mmHg MEDICAL INFORMATION Medications Given: Allergy Information: Motrin PHYSICIAN DOCUMENTATION DISCHARGE INFORMATION: Discharge Disposition: Home Discharge Location: Home PATIENT EDUCATION INFORMATION Instructions: Hematoma Follow-Up: With: Address: When: Provider, None [address] [place] [address] Within 3 to 5 days Comments: Follow-up with primary care in 3 to 5 days. Call primary care on Sunday and make a follow-up appointment. May place ice to the contusion 3 times a day for 20 minutes at a time for the next 2 days. Skin tear May wash with soap and water and pat dry. Place bacitracin on the wound. And cover with a nonadherent dressing. Watch for any signs of infection. If symptoms worsen or progress return to the emergency room. For mL twice a DIAGNOSIS: 1:Closed head injury; 2:Contusion; 3:Skin tear of upper extremity; 4:Head injury; 5:Fall; 6:Supratherapeutic INR Patient Understands: Yes - Patient/family/caregiver verbalizes understanding of instructions given Comment: Normal [facility] ED Patient Summaryon 024 ED Patient Summary [facility] - Emergency Department [address] [place] [address] PATIENT DISCHARGE INSTRUCTIONS Patient Information Name: ERIN WOODS Age: 88 Years Date of : 1935 Reason For Visit: Fall; FALL- HEAD INJURY Arrival Time: 08/18/2023 16:41:53 Phone: Primary Care Physician: LOS CHAUDHARY Attending Physician: Kwaku Santamaria MD Comment: Visit Diagnosis: Diagnoses This Visit Closed head injury (S09.90XA) Contusion (T14.8XXA) Fall ([id number]) Fall (W19.XXXA) Head injury (S09.90XA) Skin tear of upper extremity (S41.119A) Supratherapeutic INR (R79.1) The Pharmacy at [facility] is open Sunday through Sunday from 9A to 6P and Sunday and Sunday from 9A to 5P Prescription Information: If you have been given a prescription for narcotics, seek immediate medical attention if you have any difficulty breathing or any sudden status changes such as confusion and sleepiness. If you or anyone you know is experiencing suicidal thoughts, mental health, alcohol and/or drug addiction problems; contact the [facility] 30/10 Crisis Hotline -Text 8YXGW to 946549. If you received any narcotics, sedation, or any other medication that causes drowsiness for the next 24 hours, unless otherwise directed: ? Do not drive a car. ? Do not operate machinery such as power tools, lawn mowers, drills, sewing machines, or stoves ? Avoid alcoholic beverages and drugs for allergies, nerves, or sleep ? Do not make important personal or business decisions or sign any legal documents With: Address: When: Provider, Layne [address] [place] [address] Within 3 to 5 days Comments: Follow-up with primary care in 3 to 5 days. Call primary care on Sunday and make a follow-up appointment. May place ice to the contusion 3 times a day for 20 minutes at a time for the next 2 days. Skin tear May wash with soap and water and pat dry. Place bacitracin on the wound. And cover with a nonadherent dressing. Watch for any signs of infection. If symptoms worsen or progress return to the emergency room. For mL twice a Medication Information: The exam and treatment you received today in the [facility] Emergency Department were for an urgent problem and are not intended as complete care. It is important for you to follow up with a doctor, nurse practitioner, or physician?s senior sales assistant for ongoing care. If your symptoms become worse or you do not improve as expected and you are unable to reach your usual health care provider, you should return to the Emergency Department, we are available 24 hours a day. For those patients who have received Radiology results, the interpretation of your X-ray as given to you by our Emergency Department physician is only a preliminary report. The Radiologist will review your films and if there is a change in the diagnosis you will be notified by phone. Please make sure you have provided a working phone number so we can reach you if necessary. In the event that you had a lab culture while you were a patient in the Emergency Department, you will be notified by phone if there is a need to change your antibiotic. Please make sure you have provided a working phone number so we can reach you if necessary. [facility] Emergency Department has provided you with a complete list of medications post discharge. Please inform your product development scientist/provider of your visit and for further instruction on these medications. Any specific questions regarding your chronic medications and dosages should be discussed with your primary care physician(s) and/or pharmacist. Additional medications on your home medication list not specifically addressed. Please contact the ordering physician if you have questions about these medications. amiodarone (amiodarone 200 mg oral tablet) TAKE 1 TABLET BY MOUTH TWICE DAILY -- DOSE CHANGE. clindamycin topical (clindamycin 1% topical gel) APPLY TO AFFECTED AREA 2-3 TIMES A DAY. clopidogrel (clopidogrel 75 mg oral tablet) TAKE 1 TABLET BY MOUTH ONCE DAILY.. furosemide (furosemide 40 mg oral tablet) 1 tab(s) Oral (given by mouth) every day. isosorbide mononitrate (isosorbide mononitrate 60 mg oral tablet, extended release) TAKE 1 TABLET BY MOUTH ONCE DAILY DIRECTED. DOSE INCREASED. levothyroxine (levothyroxine 75 mcg (0.075 mg) oral tablet) TAKE 1 TABLET BY MOUTH EVERY DAY IN THE MORNING ON EMPTY STOMACH FOR 90 DAYS. lisinopril (lisinopril 10 mg oral tablet) TAKE 1 TABLET BY MOUTH ONCE DAILY DIRECTED. DOSE INCREASED. ondansetron (ondansetron 4 mg oral tablet) TAKE 1 TABLET BY MOUTH 4 TIMES A DAY. torsemide (torsemide 10 mg oral tablet) TAKE 1 TABLET BY MOUTH ONCE DAILY. traMADol (traMADol 50 mg oral tablet) TAKE 1 TABLET BY MOUTH FOUR TIMES A DAY NEEDED. warfarin (warfarin 6 mg oral tablet) TAKE 1 TABLET EVERY DAY OR DIRECTED, BY MEDICATION MANAGEMENT CLINIC. Visit (more content not included)... Normal [facility] Extra Redon 08-18-2023 Tube Collected Yes Invalid Interpretation Code [facility] Comment on above: Performed By: #### 1 [id number], [id number], [id number], [id number], [id number], [id number] #### [facility] (DEFAULT) [address] [place] [address] 89615 PTon 08-18-2023 INR Coag (PPP) [Relative time] 4.03 {INR} High 0.91-1.11 [facility] Comment on above: Performed By: #### 1 [id number], [id number], [id number], [id number], [id number], [id number] #### [facility] (DEFAULT) [address] [place] [address] 08756 PT 36.9 second(s) High 9.7-11.8 [facility] Comment on above: Performed By: #### 1 [id number], [id number], [id number], [id number], [id number], [id number] #### [facility] (DEFAULT) [address] [place] [address] Activated partial thrombopla stin time (aPTT) in platelet poor plasma by coagulation aOrdered By: Arthur Ovalle on 07-31-2023 aPTT Coag (PPP) [Time] 49.0 s 25.1-36.5 [facility] Comment on above: A hematocrit value g reater than 55% may lead to inaccurate results in coagulation testing. Patients having hematocrit values >55% require a special collection tube for coagulation studies. Please contact the laboratory at [phone] for redraw instructions. Alanine aminotransferase [En zymatic activity/volume] in Serum or PlasmaOrdered By: PROVIDER TEMP on 07-31-2023 ALT [Catalytic activity/Vol] 20 U/L 7-52 [facility] Albumin [Mass/volume] in Ser um or Plasma by Bromocresol green (BCG) dye binding methoOrdered By: PROVIDER TEMP on 07-31-2023 Albumin BCG dye [Mass/Vol] 3.9 g/dL 3.5-5.7 [facility] Alkaline phosphatase [Enzyma tic activity/volume] in Serum or PlasmaOrdered By: PROVIDER TEMP on 07-31-2023 ALP [Catalytic activity/Vol] 72 U/L 34-104 [facility] Aspartate aminotransferase [ Enzymatic activity/volume] in Serum or PlasmaOrdered By: PROVIDER TEMP on 07-31-2023 AST [Catalytic activity/Vol] 21 U/L 13-39 [facility] B-Type Natriuretic Peptideon 07-31-2023 Natriuretic peptide B (Bld) [Mass/Vol] 343.0 pg/mL High 5-100 [facility] Comment on above: Result Comment: PERF ORMED BY: [facility] [address] [place] [address] PATHOLOGIST RETAIL LOSS PREVENTION 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 Performed By: #### P T, BNP, PTT #### [facility] [address] Basophils Auto (Bld) [#/Vol] Ordered By: PROVIDER TEMP on 07-31-2023 Basophils (Bld) [#/Vol] 0.1 10*3/uL 0.0-0.2 [facility] Basophils/100 WBC Auto (Bld) Ordered By: PROVIDER TEMP on 07-31-2023 Basophils/100 WBC (Bld) 1.0 % . [facility] Bilirubin.total [Mass/volume ] in Serum or PlasmaOrdered By: PROVIDER TEMP on 07-31-2023 Bilirubin [Mass/Vol] 0.5 mg/dL 0.3-1.0 [place] COVID CepheidOrdered By: PRO VIDER TEMP on 07-31-2023 SARS-CoV-2 (COVID-19) Ab IA Ql Negative Negative [facility] Comment on above: This is a duplicate Cepheid Xpert Xpress CoV-2/Flu/RSV Plus RNA by RT-PCR result to be used for statistical tracking purpose only. COVID CepheidOrdered By: Americo Ovalle on 07-31-2023 SARS-CoV-2 (COVID-19) RNA CIERA+probe Ql (Unsp spec) [facility] COVID-19 / Flu A/B / RSV PCR on 07-31-2023 SARS-CoV-2 (COVID-19) RNA CIERA+probe Ql (Unsp spec) COVID-19 Cepheid Result Negative for SARS-CoV-2 RNA by RT-PCR Flu A Cepheid Result Negative for Flu A RNA by RT-PCR Flu B Cepheid Result Negative for Flu B RNA by RT-PCR RSV Cepheid Result Negative for RSV RNA by RT-PCR COVID19 Blank Space -- Reference: Negative COVID19 Blank Space -- Cepheid Disclaimer The Cepheid Xpert Xpress CoV-2/Flu/RSV Plus has Cepheid Disclaimer not been FDA cleared or approved; this test has Cepheid Disclaimer been authorized by FDA under an EUA for use by Cepheid Disclaimer authorized laboratories; this test has been Cepheid Disclaimer authorized only for the simultaneous qualitative Cepheid Disclaimer detection and differentiation of nucleic acids from Cepheid Disclaimer SARS-CoV-2, influenza A, influenza B, and Cepheid Disclaimer respiratory syncytial virus (RSV), and not for any Cepheid Disclaimer other viruses or pathogens; and this test is only Cepheid Disclaimer authorized for the duration of the declaration that Cepheid Disclaimer circumstances exist justifying the authorization of Cepheid Disclaimer emergency use of in vitro diagnostic tests for Cepheid Disclaimer detection and/or diagnosis of COVID-19 under Cepheid Disclaimer Section 564(b)(1) of the Act, 21 U.S.C. 360bbb- Cepheid Disclaimer 3(b)(1), unless the authorization is terminated or Cepheid Disclaimer revoked sooner. PERFORMED BY: [place] [address] PATHOLOGIST RETAIL LOSS PREVENTION 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 Normal [facility] Comment on above: Performed By: #### K #### [address] Calcium [Mass/volume] in Ser um or PlasmaOrdered By: PROVIDER TEMP on 07-31-2023 Calcium [Mass/Vol] 8.8 mg/dL 8.6-10.3 [facility] Carbon dioxide, total [Moles /volume] in Serum or PlasmaOrdered By: PROVIDER TEMP on 07-31-2023 CO2 [Moles/Vol] 27.2 mmol/L 21.0-31.0 [facility] Cepheid COVID PCR Negativeon 07-31-2023 SARS-CoV-2 (COVID-19) RNA CIERA+probe Ql (Unsp spec) Negative Normal Negative [facility] Comment on above: Result Comment: This is a duplicate CepLifeServe Innovationsid Xpert Xpress CoV-2/Flu/RSV Plus RNA by RT-PCR result to be used for statistical tracking purpose only. PERFORMED BY: [place] [address] PATHOLOGIST RETAIL LOSS PREVENTION 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 Performed By: #### B MP #### [place] [address] [place] Chloride [Moles/volume] in S payal or PlasmaOrdered By: PROVIDER TEMP on 07-31-2023 Chloride [Moles/Vol] 104 mmol/L 98-107 [place] Complete Blood Count Auto Di ffon 07-31-2023 Basophils (Bld) [#/Vol] 0.1 10*3/uL Normal 0.0-0.2 [facility] Comment on above: Result Comment: PERF ORMED BY: [place] [address] PATHOLOGIST RETAIL LOSS PREVENTION 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 Performed By: #### B MP #### [place] [address] [place] Basophils/100 WBC (Bld) 1.0 % Normal . [facility] Comment on above: Performed By: #### B MP #### [address] Eosinophils (Bld) [#/Vol] 0.0 10*3/uL Normal 0.0-0.45 [facility] [facility] Comment on above: Performed By: #### B MP #### [place] [address] [place] Eosinophils/100 WBC (Bld) 0.7 % Normal . [facility] Comment on above: Performed By: #### B MP #### [address] Erythrocyte distribution width (RBC) [Ratio] 16.6 % High 11.9-15.3 [facility] Comment on above: Performed By: #### B MP #### [place] [id number] [place] Hematocrit (Bld) [Volume fraction] 35.9 % Normal 34.0-46.4 [facility] Comment on above: Performed By: #### B MP #### [address] Hemoglobin (Bld) [Mass/Vol] 11.9 g/dL Normal 11.8-15.4 [facility] Comment on above: Performed By: #### B MP #### [address] Lymphocytes (Bld) [#/Vol] 0.9 10*3/uL Low 1.00-4.8 The [facility] Comment on above: Performed By: #### B MP #### [address] Lymphocytes/100 WBC (Bld) 13.7 % Normal . [facility] Comment on above: Performed By: #### B MP #### [address] MCH (RBC) [Entitic mass] 33.6 pg Normal 24.7-34.3 [facility] Comment on above: Performed By: #### B MP #### [address] MCV (RBC) [Entitic vol] 101.2 fL High 80-100 [facility] Comment on above: Performed By: #### B MP #### [address] Mean Corpuscular HGB Conc 33.1 g/dL Normal 32.0-35.0 [facility] Comment on above: Performed By: #### B MP #### [address] Monocytes (Bld) [#/Vol] 0.5 10*3/uL Normal 0.0-0.8 [facility] Comment on above: Performed By: #### B MP #### [address] Monocytes/100 WBC (Bld) 17.74 % Normal 0.00-20.00 [facility] Comment on above: Performed By: #### B MP #### [place] [address] [place] Monocytes/100 WBC (Bld) 8.5 % Normal . [facility] Comment on above: Performed By: #### B MP #### [address] Neutrophils (Bld) [#/Vol] 4.7 10*3/uL Normal 1.8-7.7 [facility] Comment on above: Performed By: #### B MP #### [address] Neutrophils/100 WBC (Bld) 76.1 % Normal . [facility] Comment on above: Performed By: #### B MP #### [address] NRBC% 0.1 /100{WBC} Normal 0-0.5 [facility] Comment on above: Performed By: #### B MP #### [address] Platelet mean volume (Bld) [Entitic vol] 8.3 fL Normal 6.3-10.7 [facility] Comment on above: Performed By: #### B MP #### [place] [address] [place] Platelets (Bld) [#/Vol] 172 10*3/uL Normal 150-450 [facility] Comment on above: Performed By: #### B MP #### [place] [address] [place] RBC (Bld) [#/Vol] 3.54 10*6/uL Low 3.60-5.00 [facility] Comment on above: Performed By: #### B MP #### [address] WBC (Bld) [#/Vol] 6.2 10*3/uL Normal 3.8-11.6 [facility] Comment on above: Performed By: #### B MP #### [address] Comprehensive Metabolic Pane michelle 07-31-2023 Albumin [Mass/Vol] 3.9 g/dL Normal 3.5-5.7 [facility] Comment on above: Performed By: #### B MP #### [address] Albumin/Globulin [Mass ratio] 1.4 {ratio} Normal [facility] Comment on above: Performed By: #### B MP #### [address] ALP [Catalytic activity/Vol] 72 U/L Normal 34-104 [facility] Comment on above: Performed By: #### B MP #### [address] ALT [Catalytic activity/Vol] 20 U/L Normal 7-52 [facility] Comment on above: Performed By: #### B MP #### [address] Anion gap [Moles/Vol] 11.0 mmol/L Normal 6.0-15.0 [facility] Comment on above: Performed By: #### B MP #### [address] AST [Catalytic activity/Vol] 21 U/L Normal 13-39 [facility] Comment on above: Performed By: #### B MP #### [address] Bilirubin [Mass/Vol] 0.5 mg/dL Normal 0.3-1.0 [facility] Comment on above: Performed By: #### B MP #### [address] Calcium [Mass/Vol] 8.8 mg/dL Normal 8.6-10.3 [facility] Comment on above: Performed By: #### B MP #### [place] [address] [place] Chloride [Moles/Vol] 104 mmol/L Normal 98-107 [facility] Comment on above: Performed By: #### B MP #### [facility] [address] CO2 [Moles/Vol] 27.2 mmol/L Normal 21.0-31.0 [facility] Comment on above: Performed By: #### B MP #### [facility] [address] Creatinine [Mass/Vol] 1.53 mg/dL High 0.60-1.20 [facility] Comment on above: Performed By: #### B MP #### [place] [address] [place] Creatinine Clr Calc Pharmacy 23.97 Normal [facility] Comment on above: Result Comment: PERF ORMED BY: [place] [address] PATHOLOGIST RETAIL LOSS PREVENTION 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 Performed By: #### B MP #### [place] [address] [place] GFR/1.73 sq M.predicted MDRD (S/P/Bld) [Vol rate/Area] 32.327 mL/min/{1.73_m2} Normal [facility] Comment on above: Performed By: #### B MP #### [address] Globulin (S) [Mass/Vol] 2.8 g/dL Normal [facility] Comment on above: Performed By: #### B MP #### [address] Glucose [Mass/Vol] 113 mg/dL High 70-100 [facility] Comment on above: Result Comment: [place] Glucose Reference Range is dependent on time and content of last meal. Glucose of more than 200 mg/dL in a nonstressed, ambulatory subject supports the diagnosis of Diabetes Mellitus. ADA recommended reference range Performed By: #### B MP #### [address] Potassium [Moles/Vol] 4.2 mmol/L Normal 3.5-5.1 [facility] Comment on above: Performed By: #### B MP #### [facility] [address] [place] [address] [place] Protein [Mass/Vol] 6.7 g/dL Normal 6.4-8.9 [facility] Comment on above: Performed By: #### B MP #### [facility] [address] [place] [address] [place] Sodium [Moles/Vol] 138 mmol/L Normal 136-145 [facility] Comment on above: Performed By: #### B MP #### [facility] [address] Urea nitrogen [Mass/Vol] 51 mg/dL High 7-25 [facility] Comment on above: Performed By: #### B MP #### [facility] [address] [place] [id number] [facility] Creatine Kinaseon 07-31-2023 CK [Catalytic activity/Vol] 32 U/L Normal 30- [facility] Comment on above: Performed By: #### B MP #### [place] [id number] [facility] Creatine kinase [Enzymatic a ctivity/volume] in Serum or PlasmaOrdered By: PROVIDER TEMP on 07-31-2023 CK [Catalytic activity/Vol] 32 U/L 30-223 [facility] Creatinine [Mass/volume] in Serum or PlasmaOrdered By: PROVIDER TEMP on 07-31-2023 Creatinine [Mass/Vol] 1.53 mg/dL 0.60-1.20 [facility] ECG 12 lead ECGon 07-31-2023 ECG 12 lead ECG [facility] [address] [place] [address] [place] [address] Electrocardiograph Report Signed Patient: Erni Canales MR#: [id number] : 1935 Acct:[id number] Age/Sex: 88 / F ADM Date: 07/31/23 Loc: ER Room: Type: [facility] ER Attending Dr: Ordering Provider: Arthur Ovalle PA-C Date of Service: 07/31/23 ECG/ECG 12 lead ECG: Shortness of Breath/Dyspnea Copies to: Test Reason : Blood Pressure : 109/069 mmHG Vent. Rate : 094 BPM Atrial Rate : 089 BPM P-R Int : 000 ms QRS Dur : 094 ms QT Int : 366 ms P-R-T Axes : 000 091 024 degrees QTc Int : 457 ms Atrial fibrillation Rightward axis Confirmed by Talha Oakes DO ([id number]) on 08/01/2023 12:46:46 AM Referred By: Electronically Signed By:Talha Oakes DO Transcribed By: MUS Signed By Talha Oakes DO 0046 Normal [facility] Eosinophils Auto (Bld) [#/Vo l]Ordered By: PROVIDER TEMP on 07-31-2023 Eosinophils (Bld) [#/Vol] 0.0 10*3/uL 0.0-0.45 [facility] Eosinophils/100 WBC Auto (Bl d)Ordered By: PROVIDER TEMP on 07-31-2023 Eosinophils/100 WBC (Bld) 0.7 % . [facility] Erythrocyte distribution wid th Auto (RBC) [Ratio]Ordered By: PROVIDER TEMP on 07-31-2023 Erythrocyte distribution width (RBC) [Ratio] 16.6 % 11.9-15.3 [facility] Globulin Calc (S) [Mass/Vol] Ordered By: PROVIDER TEMP on 07-31-2023 Globulin (S) [Mass/Vol] 2.8 g/dL [facility] Glucose [Mass/volume] in Ser um or PlasmaOrdered By: PROVIDER TEMP on 07-31-2023 Glucose [Mass/Vol] 113 mg/dL 70-100 [facility] Comment on above: ADA recommended refe rence rangeRandom Glucose Reference Range is dependent on time and content of last meal. Glucose of more than 200 mg/dL in a nonstressed, ambulatory subject supports the diagnosis of Diabetes Mellitus. Hematocrit Auto (Bld) [Volum e fraction]Ordered By: PROVIDER TEMP on 07-31-2023 Hematocrit (Bld) [Volume fraction] 35.9 % 34.0-46.4 [facility] Hemoglobin [Mass/volume] in BloodOrdered By: PROVIDER TEMP on 07-31-2023 Hemoglobin (Bld) [Mass/Vol] 11.9 g/dL 11.8-15.4 [facility] INR in Platelet poor plasma by Coagulation assayOrdered By: Arthur Ovalle on 07-31-2023 INR Coag (PPP) [Relative time] 4.6 {INR} [facility] Comment on above: INR Therapeutic Rang [...] with mechanical heart valves: 3 - 4.5 Leukocytes [#/volume] correc basim for nucleated erythrocytes in Blood by Automated counOrdered By: PROVIDER TEMP on 07-31-2023 WBC corrected for nucl RBC Auto (Bld) [#/Vol] 6.2 10*3/uL 3.8-11.6 [facility] Lymphocytes Auto (Bld) [#/Vo l]Ordered By: PROVIDER TEMP on 07-31-2023 Lymphocytes (Bld) [#/Vol] 0.9 10*3/uL 1.00-4.8 [facility] Lymphocytes/100 WBC Auto (Bl d)Ordered By: PROVIDER TEMP on 07-31-2023 Lymphocytes/100 WBC (Bld) 13.7 % . [facility] MCH Auto (RBC) [Entitic mass ]Ordered By: PROVIDER TEMP on 07-31-2023 MCH (RBC) [Entitic mass] 33.6 pg 24.7-34.3 [facility] MCHC Auto (RBC) [Mass/Vol]Or dered By: PROVIDER TEMP on 07-31-2023 MCHC (RBC) [Mass/Vol] 33.1 g/dL 32.0-35.0 [facility] MCV Auto (RBC) [Entitic vol] Ordered By: PROVIDER TEMP on 07-31-2023 MCV (RBC) [Entitic vol] 101.2 fL 80-100 [facility] Monocyte distribution width [Entitic volume] in Blood by AutomatedOrdered By: PROVIDER TEMP on 07-31-2023 Monocyte distribution width Auto (Bld) [Entitic vol] 17.74 % 0.00-20.00 [facility] Monocytes Auto (Bld) [#/Vol] Ordered By: PROVIDER TEMP on 07-31-2023 Monocytes (Bld) [#/Vol] 0.5 10*3/uL 0.0-0.8 [facility] Monocytes/100 WBC Auto (Bld) Ordered By: PROVIDER TEMP on 07-31-2023 Monocytes/100 WBC (Bld) 8.5 % . [facility] Natriuretic peptide B [Mass/ Vol]Ordered By: Arthur Ovalle on 07-31-2023 Natriuretic peptide B (Bld) [Mass/Vol] 343.0 pg/mL 5-100 [facility] Neutrophils Auto (Bld) [#/Vo l]Ordered By: PROVIDER TEMP on 07-31-2023 Neutrophils (Bld) [#/Vol] 4.7 10*3/uL 1.8-7.7 [facility] Neutrophils/100 WBC Auto (Bl d)Ordered By: PROVIDER TEMP on 07-31-2023 Neutrophils/100 WBC (Bld) 76.1 % . [facility] No Panel InformationOrdered By: PROVIDER TEMP on 07-31-2023 Estimated GFR (CKD-EPI) 32.327 mL/Min [facility] Creatinine Clearance (Chem 23.97 [facility] Nucleated erythrocytes [Pres ence] in Blood by Automated countOrdered By: PROVIDER TEMP on 07-31-2023 Nucleated RBC Auto Ql (Bld) 0.1 /100{WBC} 0-0.5 [facility] Partial Thromboplastin Timeo n 07-31-2023 aPTT Coag (Bld) [Time] 49.0 s High 25.1-36.5 Th e [facility] Comment on above: Result Comment: A he matocrit value greater than 55% may lead to inaccurate results in coagulation testing. Patients having hematocrit values >55% require a special collection tube for coagulation studies. Please contact the laboratory at [phone] for redraw instructions. PERFORMED BY: [place] [address] [place] [address] PATHOLOGIST RETAIL LOSS PREVENTION 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 Performed By: #### P T, BNP, PTT #### [facility] [address] Platelet mean volume Auto (B ld) [Entitic vol]Ordered By: PROVIDER TEMP on 07-31-2023 Platelet mean volume (Bld) [Entitic vol] 8.3 fL 6.3-10.7 [facility] Platelets Auto (Bld) [#/Vol] Ordered By: PROVIDER TEMP on 07-31-2023 Platelets (Bld) [#/Vol] 172 10*3/uL 150-450 [facility] Potassium [Moles/volume] in Serum or PlasmaOrdered By: PROVIDER TEMP on 07-31-2023 Potassium [Moles/Vol] 4.2 mmol/L 3.5-5.1 [facility] Protein [Mass/volume] in Ser um or PlasmaOrdered By: PROVIDER TEMP on 07-31-2023 Protein [Mass/Vol] 6.7 g/dL 6.4-8.9 [facility] Prothrombin Time INRon 07-30 INR Coag (PPP) [Relative time] 4.6 {INR} Normal [facility] Comment on above: Result Comment: INR Therapeutic [...] 3 - 4.5 Performed By: #### P T, BNP, PTT #### [facility] [address] [place] [id number] [facility] PT Coag (PPP) [Time] 50.5 s High 9.0-12.9 [facility] Comment on above: Result Comment: A he matocrit value greater than 55% may lead to inaccurate results in coagulation testing. Patients having hematocrit values >55% require a special collection tube for coagulation studies. Please contact the laboratory at [phone] for redraw instructions. Performed By: #### P T, BNP, PTT #### [facility] [address] [place], [place] [id number] [facility] Prothrombin time (PT)Ordered By: Arthur Ovalle on 07-31-2023 PT Coag (PPP) [Time] 50.5 s 9.0-12.9 [place] Comment on above: A hematocrit value g reater than 55% may lead to inaccurate results in coagulation testing. Patients having hematocrit values >55% require a special collection tube for coagulation studies. Please contact the laboratory at [phone] for redraw instructions. RBC Auto (Bld) [#/Vol]Ordere d By: PROVIDER TEMP on 07-31-2023 RBC (Bld) [#/Vol] 3.54 10*6/uL 3.60-5.00 [facility] Serum or plasma albumin/glob ulin mass ratioOrdered By: PROVIDER TEMP on 07-31-2023 Albumin/Globulin [Mass ratio] 1.4 {ratio} [facility] Serum or plasma anion gap de terminationOrdered By: PROVIDER TEMP on 07-31-2023 Anion gap [Moles/Vol] 11.0 mmol/L 6.0-15.0 [facility] Sodium [Moles/volume] in Ser um or PlasmaOrdered By: PROVIDER TEMP on 07-31-2023 Sodium [Moles/Vol] 138 mmol/L 136-145 [facility] Troponin I High Sensitivityo n 07-31-2023 Troponin I High Sensitivity 16.7 pg/mL High 0.0-15.0 [facility] Comment on above: Result Comment: PERF ORMED BY: [address] [place] [address] PATHOLOGIST RETAIL LOSS PREVENTION 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 Performed By: #### B MP #### [facility] [address] [place], [place] [id number] [facility] Troponin I.cardiac [Mass/vol ume] in Serum or Plasma by Detection limit <= 0.01 ng/Ordered By: PROVIDER TEMP on 07-31-2023 Troponin I.cardiac DL <= 0.01 ng/mL [Mass/Vol] 16.7 pg/mL 0.0-15.0 [facility] Urea nitrogen [Mass/volume] in Serum or PlasmaOrdered By: PROVIDER TEMP on 07-31-2023 Urea nitrogen [Mass/Vol] 51 mg/dL 7-25 [facility] WBC Auto (Bld) [#/Vol]Ordere d By: PROVIDER TEMP on 07-31-2023 WBC (Bld) [#/Vol] 6.2 10*3/uL 3.8-11.6 [facility] XR chest 2V*on 07-31-2023 XR chest 2V* [facility] [address] XRay Report Signed Patient: Erin Canales MR#: [id number] : 1935 Acct:[id number] Age/Sex: 88 / F ADM Date: 07/31/23 Loc: ER Room: Type: [facility] ER Attending Dr: Copies to: Arthur Ovalle PA-C Ordering Provider: Arthur Ovalle PA-C Date of Service: 07/31/23 XR/XR chest 2V*: Shortness of Breath/Dyspnea PA AND LATERAL CHEST: CLINICAL HISTORY: Shortness of breath, body aches and headache COMPARISON: 05/15/2023 A left-sided pacemaker is noted. There is no focal parenchymal consolidation, effusion or pneumothorax. The heart is enlarged. The hilar and mediastinal silhouettes are similar. There is no vascular congestion. The visualized bony thorax is intact. Thoracolumbar levoscoliotic curvature and degenerative changes are seen at the spine. XR/XR chest 2V* IMPRESSION: CARDIOMEGALY. NO ACUTE PULMONARY FINDINGS Impression dictated by: Christine Aguila M.D.07/31/2023 7:20 PM Dictation Location: [place] [address] Transcribed By: [facility] 07/31/231919 Dictated By: Christine Aguila MD 07/31/231916 Signed By: 07/31/231919 Normal [facility] CNOVon 07-26-2023 CNOV Office Visit (PLASST ) -- ERIN CANALES ([id number]) 1935 F Date Time Provider Department 07/26/23 9:15 AM SHWETA SOL During your visit today, we recorded the following information about you: Shweta Sol MD 07/26/2023 9:58 AM Signed Plastic Surgery Follow Up Note Subjective: CC: Erin Canales is here for follow up of: (Z98.890) 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 Time postop: 13 weeks ROS: Current Outpatient Medications on File Prior to Visit Medication Sig traMADol (ULTRAM) 50 mg tablet take 1 tablet by mouth four times a day as needed docusate sodium (COLACE) 100 mg capsule Take 1 capsule by mouth two times a day as needed for constipation. aspirin, enteric coated (ASPIRIN, ENTERIC COATED) 81 [...] Take 1 tablet by mouth once daily. [facility] clopidogrel (PLAVIX) 75 mg tablet Take [...] facility-administered medications on file prior to visit. Objective: There were no vitals taken for this visit. PE: - Alert and oriented in NAD on room air - Left eye incisions c/d/I - well healed - good position - Eye closes symmetrically with gravity Assessment: - s/p insertion of left upper eyelid weight (1.6 g [place] weight placed in the left upper eyelid), and direct brow lift of left eyebrow - Expected post operative course Plan: - Discussed using ointment in lower eyelid if it becomes too dry RTC PRN HIPAA: Patient acknowledged and consented to discussion of HPI/PE/medical care/dispo with family/friends in room The patient was seen with Shweta Sol MD who performed the Review of Systems and Past/Family/Social History. I have reviewed these and agree with her findings. I spent 30 minutes in the visit, with more than 50% of the total [id number] time of the visit in counseling / coordination of care. By signing my name below, IChloe, attest that this documentation has been prepared under the direction and in the presence of Dr. Sol Electronically signed, Anastacio Palmer July 26, 2023 9:38 AM Provider Attestation: Shewta [facility] MD, personally performed the services described in this documentation. All medical record entries made by the travisibe were at my direction and in my presence. I have reviewed the chart and discharge instructions (if applicable) and agree that the record reflects my personal performance and is accurate and complete. Dr. Shweta Sol MD July 26, 2023 9:58 AM Allergies As of Date: 07/26/2023 Noted Allergy Reaction [id number] REDUCTASE INHIBIT*08/25/2022 14 - Other: See Comments Comments: Cannot walk when she takes it MOTRIN (IBUPROFEN) 10/29/2012 4 - Hives Date Reviewed: 07/26/2023 Reviewed by: Beatris Castañeda LPN - Fully Assessed Reason for Visit: Post Op [174] Primary Visit Diagnosis:Post-operative state [Z98.890] Other Visit Diagnosis:Alvarado's palsy [G51.0] Prescriptions as of 07/26/2023 - traMADol (ULTRAM) 50 mg tablet take 1 tablet by mouth four times a day as needed - docusate sodium (COLACE) 100 mg capsule Take 1 capsule by mouth two times a day as needed for constipation. - aspirin, enteric coated (ASPIRIN, ENTERIC COATED) 81 mg EC tablet Take 81 mg by mouth two times a week. Sunday and Sunday - nitroglycer (more content not included)... Normal [facility] CNOVon 05-21-2023 CNOV Office Visit (PLASST ) -- ERIN CAANLES ([id number]) 1935 F Date Time Provider Department 05/21/23 8:40 AM ROSALVA LEMOS During your visit today, we recorded the following information about you: Rosalva Lemos APRN.SHIP DESIGN TEACHER 05/21/2023 9:27 AM Signed Plastic Surgery Post Op Note CC: post op HPI Date of Surgery: 04/24/2023 Surgery: insertion of left upper eyelid weight (1.6 g [place]ak weight placed in the left upper eyelid), [...] 1 tablet by mouth once daily. [facility] clopidogrel (PLAVIX) 75 mg tablet Take [...] questions or concerns during business hours call [phone] or after hours (after 5 pm or on the weekend) call [phone] and ask for the plastic surgery resident / fellow telephone information supervisor for further instructions. If you have increasing [...] or notice (more content not included)... Normal [facility] Aspartate Amino Transferaseo n 05-15-2023 AST [Catalytic activity/Vol] 18 U/L Normal 13-39 [facility] Comment on above: Performed By: #### K #### [address] Aspartate aminotransferase [ Enzymatic activity/volume] in Serum or PlasmaOrdered By: Akhil Olivarez on 05-15-2023 AST [Catalytic activity/Vol] 18 U/L 13-39 [facility] Basic Metabolic Panelon Anion gap [Moles/Vol] 13.0 mmol/L Normal 6.0-15.0 Th e [facility] Comment on above: Performed By: #### K #### [address] Calcium [Mass/Vol] 9.4 mg/dL Normal 8.6-10.3 [facility] Comment on above: Performed By: #### K #### [address] Chloride [Moles/Vol] 104 mmol/L Normal 98-107 [facility] Comment on above: Performed By: #### K #### [address] CO2 [Moles/Vol] 25.4 mmol/L Normal 21.0-31.0 [facility] Comment on above: Performed By: #### K #### [address] Creatinine [Mass/Vol] 1.12 mg/dL Normal 0.60-1.20 [facility] Comment on above: Performed By: #### K #### [address] GFR/1.73 sq M.predicted MDRD (S/P/Bld) [Vol rate/Area] 47.298 mL/min/{1.73_m2} Normal [facility] Comment on above: Performed By: #### K #### [address] Glucose [Mass/Vol] 128 mg/dL High 70-100 [facility] Comment on above: Result Comment: [facility] Glucose Reference Range is dependent on time and content of last meal. Glucose of more than 200 mg/dL in a nonstressed, ambulatory subject supports the diagnosis of Diabetes Mellitus. ADA recommended reference range Performed By: #### K #### [facility] [address] Potassium [Moles/Vol] 4.4 mmol/L Normal 3.5-5.1 [facility] Comment on above: Performed By: #### K #### [facility] [address] Sodium [Moles/Vol] 138 mmol/L Normal 136-145 [facility] Comment on above: Performed By: #### K #### [facility] [address] Urea nitrogen [Mass/Vol] 43 mg/dL High 7-25 [facility] Comment on above: Performed By: #### K #### [facility] [address] Calcium [Mass/volume] in Ser um or PlasmaOrdered By: Akhil Olivarez on 05-15-2023 Calcium [Mass/Vol] 9.4 mg/dL 8.6-10.3 [facility] Carbon dioxide, total [Moles /volume] in Serum or PlasmaOrdered By: Akhil Olivarez on 05-15-2023 CO2 [Moles/Vol] 25.4 mmol/L 21.0-31.0 [facility] Chloride [Moles/volume] in S payal or PlasmaOrdered By: Akhil Olivarez on 05-15-2023 Chloride [Moles/Vol] 104 mmol/L 98-107 [place] Creatinine [Mass/volume] in Serum or PlasmaOrdered By: Akhil Olivarez on 05-15-2023 Creatinine [Mass/Vol] 1.12 mg/dL 0.60-1.20 [facility] Glucose [Mass/volume] in Ser um or PlasmaOrdered By: Akhil Olivarez on 05-15-2023 Glucose [Mass/Vol] 128 mg/dL 70-100 [facility] Comment on above: ADA recommended refe rence rangeRandom Glucose Reference Range is dependent on time and content of last meal. Glucose of more than 200 mg/dL in a nonstressed, ambulatory subject supports the diagnosis of Diabetes Mellitus. No Panel InformationOrdered By: Akhil Olivarez on 05-15-2023 Estimated GFR (CKD-EPI) 47.298 mL/Min [facility] Creatinine Clearance (Chem N/A [facility] Potassium [Moles/volume] in Serum or PlasmaOrdered By: Akhil Olivarez on 05-15-2023 Potassium [Moles/Vol] 4.4 mmol/L 3.5-5.1 [facility] Serum or plasma anion gap de terminationOrdered By: Akhil Olivarez on 05-15-2023 Anion gap [Moles/Vol] 13.0 mmol/L 6.0-15.0 [facility] Sodium [Moles/volume] in Ser um or PlasmaOrdered By: Akhil Olivarez on 05-15-2023 Sodium [Moles/Vol] 138 mmol/L 136-145 [facility] Thyroid Stimulating Hormoneo n 05-15-2023 TSH Qn 3.73 m[IU]/L Normal 0.45-5.33 [facility] Comment on above: Result Comment: PERF ORMED BY: [place] [address] PATHOLOGIST RETAIL LOSS PREVENTION 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 Performed By: #### K #### [address] Thyrotropin [Units/volume] i n Serum or PlasmaOrdered By: Akhil Olivarez on 05-15-2023 TSH Qn 3.73 m[IU]/L 0.45-5.33 [facility] Urea nitrogen [Mass/volume] in Serum or PlasmaOrdered By: Akhil Olivarez on 05-15-2023 Urea nitrogen [Mass/Vol] 43 mg/dL 7- [facility] XR chest 2V*on 05-15-2023 XR chest 2V* [facility] [place] [address] XRay Report Signed Patient: Erin Canales MR#: [id number] : 1935 Acct:[id number] Age/Sex: 87 / F ADM Date: 05/15/23 Loc: XD Room: Type: [facility] Attending Dr: Akhil Olivarez MD Copies to: [...] John Crouch M.D.05/15/2023 4:20 PM Dictation Location: [place] [address] Transcribed By: [facility] 05/15/23 1620 Dictated By: John Crouch II, MD 05/15/23 1619 Signed By: 05/15/23 1620 Normal [facility] CNOVon 04-30-2023 CNOV Office Visit (PLASST ) -- ERIN CANALES ([id number]) 1935 F Date Time Provider Department 04/30/23 10:40 AM ROSALVA LEMOS During your visit today, we recorded the following information about you: Rosalva Lemos APRN.CNP 04/30/2023 10:27 AM Signed Plastic Surgery Post Op Note CC: post op HPI Date of Surgery: 04/24/2023 Surgery: insertion of left upper eyelid weight (1.6 g togiak weight placed in the left upper eyelid), [...] Take 1 tablet by mouth once daily. [employer] [facility] clopidogrel (PLAVIX) 75 mg tablet Take [...] questions or concerns during business hours call [phone] or after hours (after 5 pm or on the weekend) call [phone] and ask for the plastic surgery resident / fellow telephone information supervisor for further instructions. If you have increasing [...] greenish drainage (more content not included)... Normal [facility] ANES POSTPROC EVALon 024 ANES POSTPROC EVAL HNO ID: [id number] Author: GWEN BLACK MD Service: Anesthesiology Author [...] April 24, 2023 TIME: 1:28 PM CSN: [id number] [facility] ANES PRE-OPon 04-24-2023 ANES PRE-OP HNO ID: [id number] Author: GWEN BLACK MD Service: Anesthesiology Author [...] and consent discussed: yes. Patient / Responsible Republican agrees to proceed: yes Patient / Surrogate agrees to blood products: Yes Significant changes in the patient condition since the History and Physical, not otherwise documented in primary service progress note: no. Potential Anesthesia issues that may suggest increased risk of complications or contraindication to planned procedure: none. Vitals Value Taken Time BP 134/53 04/24/23 0648 Pulse 61 04/24/23 0648 Resp 18 04/24/2348 Temp 37.1 ?C (98.8 ?F) 04/24/2348 SpO2 98 % 04/24/2348 No current facility-administered medications on file as [...] April 24, 2023 TIME: 7:09 AM CSN: [id number] [facility] BRIEF OP NOTon 04-24-2023 BRIEF OP NOT HNO ID: [id number] Author: PAMELA SPICER DO Service: Plastic Surgery Author Type: Resident Type: Brief Op Note Filed: 04/24/2023 09:20 Note Text: PLASTIC SURGERY - BRIEF OP NOTE Patient Name: Erin Canales Log ID: [id number] Surgery Date: 04/24/2023 Surgeon(s) and Tire Bladder Maker(s): Surgeon(s) and Role: * Shweta Sol MD [...] Surgery Hand Surgery Resident - PGY-5 Pager: [phone] *After 6PM AND on weekends, please page [phone] (Plastic Surgery Fast Food Assistant Restaurant Manager)* Normal [facility] HISTORY PHYSICALon HISTORY PHYSICAL HNO ID: [id number] Author: SHWETA SOL MD Service: Plastic Surgery [...] DATE: April 24, 2023 TIME: 7:22 AM [facility] NURSING PROGon 04-24-2023 NURSING PROG HNO ID: [id number] Author: ALAN JAMES RN Service: Nursing Author [...] PROVIDED TO PATIENT: Post op discharge instructions. [facility] NURSING PROG HNO ID: [id number] Author: JAE ESPINOZA RN Service: Nursing Author [...] (RECOMMENDATION): None Electronically Signed By: Jae Espinoza [facility] OPERATIVE NOon 04-24-2023 OPERATIVE NO HNO ID: [id number] Author: SHWETA SOL MD Service: Plastic Surgery Author Type: Physician Type: Operative Report Filed: 04/24/2023 09:53 Note Text: OPERATIVE REPORT NAME: Erin Canales AGE: [id number] year old SURGERY/ PROCEDURE DATE: 04/24/2023 INCISION/ PROCEDURE START TIME: 8:27 AM INCISION CLOSE/ PROCEDURE ENDTIME: 9:20 AM SURGEON(S)/SUPERVISOR LAMP SHADES(S): Surgeon(s) and Role: * Shweta Sol MD [...] due to her facial paralysis and chooses togiak weight and direct brow lift with evaluation [...] Implant Name Type Inv. Item Serial No. Community Service Representative Lot No. LRB No. Used Action Model No. [employer] [place] [employer] [place] SL[employer] Implant [id number] Left 1 Implanted [id number] Operative Findings: The procedure was performed as planned. 1.6 g togiak weight placed in the left upper eyelid Estimated Blood Loss: 3 mL Specimens: None Drains: None Complications: None Participation in Procedure: I/primary surgeon/proceduralist performed the procedure with assistance. SIGNATURE: Shweta Sol MD PATIENT NAME: Erin Esequiel Canales DATE: April 24, 2023 TIME: 9:46 AM PAGER/CONTACT #: [phone] [facility] 04-05-2023 [facility] Telephone (PANEST) -- ERIN CANALES ([id number]) 1935 F Date Time Provider Department 04/05/23 LETICIA LIM During your visit today, we recorded the following information about you: Leticia Lim PA-C 04/05/2023 12:07 PM Signed Good afternoon, I saw this patient for PACC for upcoming surgery scheduled 04/16/23 at [facility]. She has a significant cardiac PMH including pacemaker, CAD, A.fib, pulmonary HTN, CHF, and valvular heart disease. Due to pt's PMH and surgery being scheduled at [facility], I reviewed patient's chart with staff [...] your message to Dr. Sol's team at [facility] to reschedule under hospital setting. Please call patient on rescheduling surgery in hospital. Beatris Castañeda LPN Allergies As of Date: 04/05/2023 Noted Allergy Reaction DJDFUCO-YOC-JCI REDUCTASE INHIBIT*08/25/2022 14 - Other: See Comments Comments: Cannot walk when she takes it MOTRIN (IBUPROFEN) 10/29/2012 4 - Hives Date Reviewed: 03/29/2023 Reviewed by: Beatris Castañeda LPN - Fully Assessed Reason for Visit: PreOp Call [[id number]] Cmt: Move Surgery to Hospital Prescriptions as [...] 1 tablet by mouth once daily. [facility] - clopidogrel (PLAVIX) 75 mg tablet [...] Status:Closed by BRENT MEHTA on 04/06/23 Normal [facility] Mamm Screen w/CAD if perf and 3D Bilon 04-04-2023 [place] Mamm Screen w/CAD if perf and 3D Jean Claude Exam Date/Time: 03/30/2023 16:08 EST Reason for Exam: Z12.31 Report IMPRESSION: BIRADS 2 BENIGN FINDINGS, NORMAL INTERVAL FOLLOW-UP Follow-up: 12 MONTH RECALL Density: Scattered tissue. Vascular calcifications: Present. EXAM: [place] Mamm Screen w/CAD if perf and 3D [...] VERY IMPORTANT TO YOUR HEALTH. THE CURRENT [employer] N[employer] COMPREHENSIVE CANCER [...] 2-Benign finding Recommendation: Normal interval follow-up Normal [facility] Consent for Treatmenton 03-10 Consent for Treatment [phone] [id number] Normal [facility] CNCOon 03-29-2023 CNCO Letter Text Normal [facility] CNOVon 03-29-2023 CNOV Office Visit (PLASST ) -- ERIN CANALES ([id number]) 1935 F Date Time Provider Department 03/29/23 1:45 PM SHWETA SOL During your visit today, we recorded the following information about you: Shweta Sol MD 03/29/2023 2:35 PM Signed 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 This developed [...] mouth once daily. Allergies: ALLERGIES Allergen Reactions Rdkmohd-Qxc-Zxx Red* Other: See Comments Cannot walk when [...] Past Histories independently gathered by the clinical work station support specialist and the remaining scribed note [...] March 29, 2023 2:01 PM Provider Attestation: I, Shweta Sol MD, personally [...] 2023 2:34 PM Referring Provider: SHWETA SOL [[id number]] Allergies As of Date: 03/29/2023 Noted Allergy Reaction [id number]-ZEX-YKZ REDUCTASE INHIBIT*08/25/2022 14 - Other: See Comments Comments: Cannot walk when she takes it MOTRIN (IBUPROFEN) 10/29/2012 4 - Hives Date Reviewed: 03/29/2023 Reviewed by: Beatris Castañeda LPN - Fully Assessed Primary Visit Diagnosi (more content not included)... Normal [facility] Lupillo 03-29-2023 [facility] Telephone (PANEST) -- ERIN CANALES ([id number]) 1935 F Date Time Provider Department 03/29/23 CHERRIE GAMINO During your visit today, we recorded the following information about you: Cherrie Gamino LPN 03/29/2023 3:03 PM Signed Cardiac clearance and medication instructions requested from Dr. Olivarez. JOVANNI Macedo Peggy Ann, RN 04/06/2023 9:07 AM Signed Addendum-04/03 AND 04/06. Called [facility] to confirm card optimization letter was [...] instructions back to me. Scanned letter into [employer]. Cherrie Gamino LPN Allergies As of Date: 03/29/2023 Noted Allergy Reaction VCSHAKF-NDV-UFU REDUCTASE INHIBIT*08/25/2022 14 - Other: See Comments [...] Status:Closed by CHERRIE GAMINO on 03/29/23 Normal [facility] HISTORY PHYSICALon HISTORY PHYSICAL HNO ID: [id number] Author: Leticia Lim PA-C Service: ? Author Type: Physician Tire Bladder Maker Type: HANDP Filed: 04/10/2023 12:22 PM Note [...] 4 in 2009 (stents were patent on [facility] 09/2022), s/p PCI to circumflex 09/2022, on ASA 81 mg 2x per week, Plavix, and isosorbide. Follows with outside cards, Dr. Olivarez, [facility] 02/26/23 Mickey James CNP. Letter faxed to Dr. Olivarez on 03/29/2023 for cardiac optimization and Plavix clearance. Congestive heart failure (HCC) Assessment: LVEF 55% on [facility] 09/2022, on torsemide. Appears euvolemic on exam [...] large neck Non-male patient STOP-Bang Score: 3 [id number] Score: Age: >=75 Sex: female CHF history: Yes Hypertension history: Yes Stroke/TIA/thromboembolism history: No Vascular disease history: Yes Diabetes history: No AEE9TE0-BENj Score: 6 ANESTHESIA FINDINGS: Intubation History: No [...] sclerosis, [place] (more content not included)... Normal [facility] CNPColeen 03-21-2023 CNPN Telephone (PLASST) -- ERIN CANALES ([id number]) 1935 F Date Time Provider Department 03/21/23 SHWETA SOL During your visit today, we recorded the following information about you: Jerilyn Rosa 03/21/2023 11:14 AM Signed PAC calling in asking for patients procedure if you are using local if so she does not need a PAC appt please advise. Ph- [phone] Beatris Castañeda LPN 03/21/2023 12:55 PM Signed [...] As of Date: 03/21/2023 Noted Allergy Reaction XYRAUXU-ONG-JAA REDUCTASE INHIBIT*08/25/2022 14 - Other: See Comments Comments: Cannot walk when she takes it MOTRIN (IBUPROFEN) 10/29/2012 16 - Unknown Date Reviewed: 12/13/2022 Reviewed by: Amanda Chamberlain PCNA - Fully Assessed Reason for Visit: General Questions [4125] Prescriptions as of 03/29/2023 - aspirin, enteric [...] by BEATRIS CASTAÑEDA LPN on 03/21/23 Normal [facility] Aspartate Amino Transferaseo n 12-14-2022 AST [Catalytic activity/Vol] 19 U/L Normal 39 [facility] Comment on above: Order Comment: Comme nt ok to add to prev drawn blood Performed By: #### K #### [facility] [address] [place] [id number] [place] Aspartate aminotransferase [ Enzymatic activity/volume] in Serum or PlasmaOrdered By: Akhil Olivarez on 12-14-2022 AST [Catalytic activity/Vol] 19 U/L -39 [facility] Basic Metabolic Panelon Anion gap [Moles/Vol] 10.6 mmol/L Normal 6.0-15.0 [facility] Comment on above: Order Comment: Comme nt ok to add to prev drawn blood Performed By: #### K #### [place] [address] [place] Calcium [Mass/Vol] 9.6 mg/dL Normal 8.6-10.3 [facility] Comment on above: Order Comment: Comme nt ok to add to prev drawn blood Performed By: #### K #### [place] [address] [place] Chloride [Moles/Vol] 104 mmol/L Normal 98-107 [facility] Comment on above: Order Comment: Comme nt ok to add to prev drawn blood Performed By: #### K #### [place] [id number] [place] CO2 [Moles/Vol] 30.6 mmol/L Normal 21.0-31.0 [facility] Comment on above: Order Comment: Comme nt ok to add to prev drawn blood Performed By: #### K #### [place] [address] [place] Creatinine [Mass/Vol] 1.23 mg/dL High 0.60-1.20 [facility] Comment on above: Order Comment: Comme nt ok to add to prev drawn blood Performed By: #### K #### [place] [address] [place] GFR/1.73 sq M.predicted MDRD (S/P/Bld) [Vol rate/Area] 42.268 mL/min/{1.73_m2} Normal [facility] Comment on above: Order Comment: Comme nt ok to add to prev drawn blood Performed By: #### K #### [address] Glucose [Mass/Vol] 86 mg/dL Normal 70-100 [facility] Comment on above: Order Comment: Comme nt ok to add to prev drawn blood Result Comment: [place] Glucose Reference Range is dependent on time and content of last meal. Glucose of more than 200 mg/dL in a nonstressed, ambulatory subject supports the diagnosis of Diabetes Mellitus. ADA recommended reference range Performed By: #### K #### [address] Potassium [Moles/Vol] 4.2 mmol/L Normal 3.5-5.1 [facility] Comment on above: Order Comment: Comme nt ok to add to prev drawn blood Performed By: #### K #### [address] Sodium [Moles/Vol] 141 mmol/L Normal 136-145 [facility] Comment on above: Order Comment: Comme nt ok to add to prev drawn blood Performed By: #### K #### [address] Urea nitrogen [Mass/Vol] 27 mg/dL High 7-25 [facility] Comment on above: Order Comment: Comme nt ok to add to prev drawn blood Performed By: #### K #### [place] [address] [place] Calcium [Mass/volume] in Ser um or PlasmaOrdered By: Akhil Olivarez on 12-14-2022 Calcium [Mass/Vol] 9.6 mg/dL 8.6-10.3 [facility] Carbon dioxide, total [Moles /volume] in Serum or PlasmaOrdered By: Akhil Olivarez on 12-14-2022 CO2 [Moles/Vol] 30.6 mmol/L 21.0-31.0 [facility] Chloride [Moles/volume] in S payal or PlasmaOrdered By: Akhil Olivarez on 12-14-2022 Chloride [Moles/Vol] 104 mmol/L 98-107 [place] Creatinine [Mass/volume] in Serum or PlasmaOrdered By: Akhil Olivarez on 12-14-2022 Creatinine [Mass/Vol] 1.23 mg/dL 0.60-1.20 [facility] Glucose [Mass/volume] in Ser um or PlasmaOrdered By: Akhil Olivarez on 12-14-2022 Glucose [Mass/Vol] 86 mg/dL 70-100 [facility] Comment on above: ADA recommended refe rence rangeRandom Glucose Reference Range is dependent on time and content of last meal. Glucose of more than 200 mg/dL in a nonstressed, ambulatory subject supports the diagnosis of Diabetes Mellitus. No Panel InformationOrdered By: Akhil Olivarez on 12-14-2022 Estimated GFR (CKD-EPI) 42.268 mL/Min [facility] Creatinine Clearance (Chem N/A [facility] No Panel Informationon 12-14 6.72\S\6.72 above high threshold 0.45-5.33 [facility] [employer] 250 DO Work Phone: Comment on above: PERFORMED BY:[facility] [place], [place] [id number] MEDICAL DIRECTORGIULIA VALERIO M.D. 19\S\19 Normal 13-39 [facility] [employer] 250 DO Work Phone: 42.268\S\42.268 Normal [facility] [employer] 250 DO Work Phone: 10.6\S\10.6 Normal 6.0-15.0 [facility] [employer] 250 DO Work Phone: 27\S\27 above high threshold 7-25 [facility] [employer]alee ayde 250 DO Work Phone: 86\S\86 Normal 70-100 [facility] Timothy messer 250 DO Work Phone: Comment on above: Random Glucose Refer ence Range is dependent on time and content of last meal. Glucose of more than 200 mg/dL in a nonstressed, ambulatory subject supports the diagnosis of Diabetes Mellitus. ADA recommended reference range 30.6\S\30.6 Normal 21.0-31.0 [facility] Timothy messer 250 DO Work Phone: 104\S\104 Normal 98-107 [facility] Timothy messer 250 DO Work Phone: 4.2\S\4.2 Normal 3.5-5.1 [facility] Timothy messer 250 DO Work Phone: 141\S\141 Normal 136-145 [facility] Timothy messer 250 DO Work Phone: 1.23\S\1.23 above high threshold 0.60-1.20 [facility] Timothy messer 250 DO Work Phone: 9.6\S\9.6 Normal 8.6-10.3 [facility] Timothy messer 250 DO Work Phone: Potassium [Moles/volume] in Serum or PlasmaOrdered By: Akhil Olivarez on 12-14-2022 Potassium [Moles/Vol] 4.2 mmol/L 3.5-5.1 [facility] Radiologyon 12-14-2022 XR Chest 2 Views Normal [facility] Timothy messer 250 DO Work Phone: Serum or plasma anion gap de terminationOrdered By: Akhil Olivarez on 12-14-2022 Anion gap [Moles/Vol] 10.6 mmol/L 6.0-15.0 [facility] Sodium [Moles/volume] in Ser um or PlasmaOrdered By: Akhil Olivarez on 12-14-2022 Sodium [Moles/Vol] 141 mmol/L 136-145 [facility] Thyroid Stimulating Hormoneo n 12-14-2022 TSH Qn 6.72 m[IU]/L High 0.45-5.33 [facility] Comment on above: Order Comment: Comme nt ok to add to prev drawn blood Result Comment: PERF ORMED BY: [place] [address] PATHOLOGIST RETAIL LOSS PREVENTION 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 Performed By: #### K #### [address] Thyrotropin [Units/volume] i n Serum or PlasmaOrdered By: Akhil Olivarez on 12-14-2022 TSH Qn 6.72 m[IU]/L 0.45-5.33 [facility] Urea nitrogen [Mass/volume] in Serum or PlasmaOrdered By: Akhil Olivarez on 12-14-2022 Urea nitrogen [Mass/Vol] 27 mg/dL 7-25 [facility] XR chest 2V*on 12-14-2022 XR chest 2V* [facility] Main [place] [address] [place] [address] XRay Report Signed Patient: Erin Canales MR#: [id number] : 1935 Acct:[id number] Age/Sex: 87 / F ADM Date: 12/14/22 Loc: XD Room: Type: [facility] Attending Dr: Akhil Olivarez MD Copies to: [...] Estrada Jr., D.ORadha12/14/2022 11:55 AM Dictation Location: [facility]12 Transcribed By: ANNA 12/14/22 1155 Dictated By: Aristides Estrada Jr, DO 12/14/22 1154 Signed By: 12/14/22 115 Normal [facility] CNOVon 12-13-2022 CNOV Office Visit (PLASMN ) -- ERIN CANALES ([id number]) 1935 F Date Time Provider Department 12/13/22 10:00 AM SHWETA SOL During your visit today, we recorded the following information about you: Temperature Pulse Blood pressure 97.1 degrees 60/minute 165/65 Jae Adkins RN 12/21/2022 4:37 PM Signed 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 This developed [...] Allergies: ALLERGIES Allergen Reactions Motrin [Ibuprofen] Unknown Hvpwtjb-Acm-Zix Red* Other: See Comments Cannot walk when [...] Past Histories independently gathered by the clinical work station support specialist and the remaining scribed note [...] Reaction MOTRIN (IBUPROFEN) 10/29/2012 16 - Unknown MVBQCLZ-MXI-TCI REDUCTASE INHIBIT*08/25/2022 14 - Other: See Comments Comments: Cannot walk when she takes it Date Reviewed: 12/13/2022 Reviewed by: Amanda Chamberlain, BEAU - Fully Assessed Reason for Visit: Follow Up [171] Primary Visit Di (more content not included)... Normal [facility] Basophils Auto (Bld) [#/Vol] Ordered By: Danilo Drummond on 11-24-2022 Basophils (Bld) [#/Vol] 0.1 10*3/uL 0.0-0.2 [facility] Basophils/100 WBC Auto (Bld) Ordered By: Danilo Drummond on 11-24-2022 Basophils/100 WBC (Bld) 1.1 % . [facility] Complete Blood Count Auto Di ffon 11-24-2022 Basophils (Bld) [#/Vol] 0.1 10*3/uL Normal 0.0-0.2 [facility] Comment on above: Result Comment: PERF ORMED BY: [place] [address] PATHOLOGIST RETAIL LOSS PREVENTION 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 Performed By: #### C BC #### [address] Basophils/100 WBC (Bld) 1.1 % Normal . [facility] Comment on above: Performed By: #### C BC #### [address] Eosinophils (Bld) [#/Vol] 0.1 10*3/uL Normal 0.0-0.45 [facility] Comment on above: Performed By: #### C BC #### [address] Eosinophils/100 WBC (Bld) 1.7 % Normal . [facility] Comment on above: Performed By: #### C BC #### [address] Erythrocyte distribution width (RBC) [Ratio] 14.5 % Normal 11.9-15.3 [facility] Comment on above: Performed By: #### C BC #### [address] Hematocrit (Bld) [Volume fraction] 34.5 % Normal 34.0-46.4 [facility] Comment on above: Performed By: #### C BC #### [address] Hemoglobin (Bld) [Mass/Vol] 11.4 g/dL Low 11.8-15.4 [facility] Comment on above: Performed By: #### C BC #### [address] Lymphocytes (Bld) [#/Vol] 1.2 10*3/uL Normal 1.00-4.8 [facility] Comment on above: Performed By: #### C BC #### [address] Lymphocytes/100 WBC (Bld) 20.3 % Normal . [facility] Comment on above: Performed By: #### C BC #### [address] [address] MCH (RBC) [Entitic mass] 31.9 pg Normal 24.7-34.3 [facility] Comment on above: Performed By: #### C BC #### [address] MCV (RBC) [Entitic vol] 96.2 fL Normal 80-100 [facility] Comment on above: Performed By: #### C BC #### [address] Mean Corpuscular HGB Conc 33.1 g/dL Normal 32.0-35.0 [facility] Comment on above: Performed By: #### C BC #### [address] Monocytes (Bld) [#/Vol] 0.5 10*3/uL Normal 0.0-0.8 [facility] Comment on above: Performed By: #### C BC #### [address] Monocytes/100 WBC (Bld) 8.8 % Normal . [facility] Comment on above: Performed By: #### C BC #### [address] Neutrophils (Bld) [#/Vol] 4.0 10*3/uL Normal 1.8-7.7 [facility] Comment on above: Performed By: #### C BC #### [address] Neutrophils/100 WBC (Bld) 68.1 % Normal . [facility] Comment on above: Performed By: #### C BC #### [address] NRBC% 0.1 /100{WBC} Normal 0-0.5 [facility] Comment on above: Performed By: #### C BC #### [address] Platelet mean volume (Bld) [Entitic vol] 7.6 fL Normal 6.3-10.7 [facility] Comment on above: Performed By: #### C BC #### [address] Platelets (Bld) [#/Vol] 164 10*3/uL Normal 150-450 [facility] Comment on above: Performed By: #### C BC #### [facility] [address] [place] [address] [place] RBC (Bld) [#/Vol] 3.59 10*6/uL Low 3.60-5.00 [facility] Comment on above: Performed By: #### C BC #### [facility] [address] WBC (Bld) [#/Vol] 5.8 10*3/uL Normal 3.8-11.6 [facility] Comment on above: Performed By: #### C BC #### [facility] [address] [place] [address] [place] Eosinophils Auto (Bld) [#/Vo l]Ordered By: Danilo Drummond on 11-24-2022 Eosinophils (Bld) [#/Vol] 0.1 10*3/uL 0.0-0.45 [facility] Eosinophils/100 WBC Auto (Bl d)Ordered By: Danilo Drummond on 11-24-2022 Eosinophils/100 WBC (Bld) 1.7 % . [facility] Erythrocyte distribution wid th Auto (RBC) [Ratio]Ordered By: Danilo Drummond on 11-24-2022 Erythrocyte distribution width (RBC) [Ratio] 14.5 % 11.9-15.3 [facility] Hematocrit Auto (Bld) [Volum e fraction]Ordered By: Danilo Drummond on 11-24-2022 Hematocrit (Bld) [Volume fraction] 34.5 % 34.0-46.4 [facility] Hemoglobin [Mass/volume] in BloodOrdered By: Danilo Drummond on 11-24-2022 Hemoglobin (Bld) [Mass/Vol] 11.4 g/dL 11.8-15.4 [facility] INR in Platelet poor plasma by Coagulation assayOrdered By: Jamie Hathaway on 11-24-2022 INR Coag (PPP) [Relative time] 1.2 {INR} [facility] Comment on above: INR Therapeutic Rang [...] PT Coag (PPP) [Time] 14.0 s 9.0-12.9 [place] Leukocytes [#/volume] correc basim for nucleated erythrocytes in Blood by Automated counOrdered By: Danilo Drummond on 11-24-2022 WBC corrected for nucl RBC Auto (Bld) [#/Vol] 5.8 10*3/uL 3.8-11.6 [facility] Lymphocytes Auto (Bld) [#/Vo l]Ordered By: Danilo Drummond on 11-24-2022 Lymphocytes (Bld) [#/Vol] 1.2 10*3/uL 1.00-4.8 [facility] Lymphocytes/100 WBC Auto (Bl d)Ordered By: Danilo Drummond on 11-24-2022 Lymphocytes/100 WBC (Bld) 20.3 % . [facility] MCH Auto (RBC) [Entitic mass ]Ordered By: Danilo Drummond on 11-24-2022 MCH (RBC) [Entitic mass] 31.9 pg 24.7-34.3 [facility] MCHC Auto (RBC) [Mass/Vol]Or dered By: Danilo Drummond on 11-24-2022 MCHC (RBC) [Mass/Vol] 33.1 g/dL 32.0-35.0 [facility] MCV Auto (RBC) [Entitic vol] Ordered By: Danilo Drummond on 11-24-2022 MCV (RBC) [Entitic vol] 96.2 fL 80-100 [facility] Monocytes Auto (Bld) [#/Vol] Ordered By: Danilo Drummond on 11-24-2022 Monocytes (Bld) [#/Vol] 0.5 10*3/uL 0.0-0.8 [facility] Monocytes/100 WBC Auto (Bld) Ordered By: Danilo Drummond on 11-24-2022 Monocytes/100 WBC (Bld) 8.8 % . [facility] Neutrophils Auto (Bld) [#/Vo l]Ordered By: Danilo Drummond on 11-24-2022 Neutrophils (Bld) [#/Vol] 4.0 10*3/uL 1.8-7.7 [facility] Neutrophils/100 WBC Auto (Bl d)Ordered By: Danilo Drummond on 11-24-2022 Neutrophils/100 WBC (Bld) 68.1 % . [facility] Nucleated erythrocytes [Pres ence] in Blood by Automated countOrdered By: Danilo Drummond on 11-24-2022 Nucleated RBC Auto Ql (Bld) 0.1 /100{WBC} 0-0.5 [facility] Platelet mean volume Auto (B ld) [Entitic vol]Ordered By: Danilo Drummond on 11-24-2022 Platelet mean volume (Bld) [Entitic vol] 7.6 fL 6.3-10.7 [facility] Platelets Auto (Bld) [#/Vol] Ordered By: Danilo Drummond on 11-24-2022 Platelets (Bld) [#/Vol] 164 10*3/uL 150-450 [facility] Prothrombin Time INRon 11-24 INR Coag (PPP) [Relative time] 1.2 {INR} Normal [facility] Comment on above: Result Comment: INR Therapeutic [...] heart valves: 3 - 4.5 PERFORMED BY: [place] [address] PATHOLOGIST RETAIL LOSS PREVENTION 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 Performed By: #### K #### [facility] [address] [place] [address] PT Coag (PPP) [Time] 14.0 s High 9.0-12.9 [facility] Comment on above: Performed By: #### K #### [facility] [address] RBC Auto (Bld) [#/Vol]Ordere d By: Danilo Núñezcely on 11-24-2022 RBC (Bld) [#/Vol] 3.59 10*6/uL 3.60-5.00 [facility] WBC Auto (Bld) [#/Vol]Ordere d By: Danilo Bhanu on 11-24-2022 WBC (Bld) [#/Vol] 5.8 10*3/uL 3.8-11.6 [facility] Basic Metabolic Panelon 11-07 Anion gap [Moles/Vol] 10.1 mmol/L Normal 6.0-15.0 Th e [facility] Comment on above: Performed By: #### B MP #### [address] Calcium [Mass/Vol] 8.2 mg/dL Low 8.6-10.3 [facility] Comment on above: Performed By: #### B MP #### [address] Chloride [Moles/Vol] 103 mmol/L Normal 98-107 [facility] Comment on above: Performed By: #### B MP #### [address] CO2 [Moles/Vol] 26.3 mmol/L Normal 21.0-31.0 [facility] Comment on above: Performed By: #### B MP #### [address] Creatinine [Mass/Vol] 1.01 mg/dL Normal 0.60-1.20 [facility] Comment on above: Performed By: #### B MP #### [address] Creatinine Clr Calc Pharmacy 39.79 Normal [facility] Comment on above: Result Comment: PERF ORMED BY: [place] [address] PATHOLOGIST RETAIL LOSS PREVENTION 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 Performed By: #### B MP #### [facility] [address] [place] [address] [place] GFR/1.73 sq M.predicted MDRD (S/P/Bld) [Vol rate/Area] 53.544 mL/min/{1.73_m2} Normal [facility] Comment on above: Performed By: #### B MP #### [address] Glucose [Mass/Vol] 101 mg/dL High 70-100 [facility] Comment on above: Result Comment: [facility] Glucose Reference Range is dependent on time and content of last meal. Glucose of more than 200 mg/dL in a nonstressed, ambulatory subject supports the diagnosis of Diabetes Mellitus. ADA recommended reference range Performed By: #### B MP #### [address] Potassium [Moles/Vol] 4.4 mmol/L Normal 3.5-5.1 [facility] Comment on above: Performed By: #### B MP #### [address] Sodium [Moles/Vol] 135 mmol/L Low 136-145 [facility] Comment on above: Performed By: #### B MP #### [address] Urea nitrogen [Mass/Vol] 25 mg/dL Normal 7-25 [facility] Comment on above: Performed By: #### B MP #### [address] Calcium [Mass/volume] in Ser um or PlasmaOrdered By: Danilo Drummond on 11-23-2022 Calcium [Mass/Vol] 8.2 mg/dL 8.6-10.3 [facility] Carbon dioxide, total [Moles /volume] in Serum or PlasmaOrdered By: Danilo Drummond on 11-23-2022 CO2 [Moles/Vol] 26.3 mmol/L 21.0-31.0 [facility] Chloride [Moles/volume] in S payal or PlasmaOrdered By: Danilo Drummond on 11-23-2022 Chloride [Moles/Vol] 103 mmol/L 98-107 [place] Creatinine [Mass/volume] in Serum or PlasmaOrdered By: Danilo Drummond on 11-23-2022 Creatinine [Mass/Vol] 1.01 mg/dL 0.60-1.20 [facility] Glucose [Mass/volume] in Ser um or PlasmaOrdered By: Danilo Drummond on 11-23-2022 Glucose [Mass/Vol] 101 mg/dL 70-100 [facility] Comment on above: ADA recommended refe rence rangeRandom Glucose Reference Range is dependent on time and content of last meal. Glucose of more than 200 mg/dL in a nonstressed, ambulatory subject supports the diagnosis of Diabetes Mellitus. No Panel InformationOrdered By: Danilo Drummond on 11-23-2022 Estimated GFR (CKD-EPI) 53.544 mL/Min [facility] Creatinine Clearance (Chem 39.79 [facility] Potassium [Moles/volume] in Serum or PlasmaOrdered By: Daniol Drummond on 11-23-2022 Potassium [Moles/Vol] 4.4 mmol/L 3.5-5.1 [facility] Prothrombin Time INRon 11-23 INR Coag (PPP) [Relative time] 1.2 {INR} Normal [facility] Comment on above: Result Comment: INR Therapeutic [...] heart valves: 3 - 4.5 PERFORMED BY: [facility] [address] [place] [address] PATHOLOGIST RETAIL LOSS PREVENTION 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 Performed By: #### P T #### [facility] [address] PT Coag (PPP) [Time] 13.8 s High 9.0-12.9 [facility] Comment on above: Performed By: #### P T #### [facility] [address] [place] [id number] [facility] Serum or plasma anion gap de terminationOrdered By: Danilo Drummond on 11-23-2022 Anion gap [Moles/Vol] 10.1 mmol/L 6.0-15.0 [facility] Sodium [Moles/volume] in Ser um or PlasmaOrdered By: Danilo Drummond on 11-23-2022 Sodium [Moles/Vol] 135 mmol/L 136-145 [facility] Urea nitrogen [Mass/volume] in Serum or PlasmaOrdered By: Danilo Durmmond on 11-23-2022 Urea nitrogen [Mass/Vol] 25 mg/dL 7- [facility] XR chest 2V*on 11-23-2022 XR chest 2V* [facility] [place] [address] [place] [address] XRay Report Signed Patient: Erin Canales MR#: [id number] : 1935 Acct:[id number] Age/Sex: 87 / F ADM Date: 11/19/22 Loc: Room: [address] [place] [address] Type: ADM IN Attending Dr: Danilo Drummond [...] Christine Aguila M.D.11/23/2022 7:23 AM Dictation Location: [place] [address] Transcribed By: [facility] 11/23/22722 Dictated By: Christine Aguila MD 11/23/22720 Signed By: 11/23/22722 Normal [facility] Activated partial thrombopla stin time (aPTT) in platelet poor plasma by coagulation aOrdered By: Akhil Olivarez on 11-22-2022 aPTT Coag (PPP) [Time] 32.5 s 25.1-36.5 [facility] Basic Metabolic Panelon 11-07 Anion gap [Moles/Vol] 10.9 mmol/L Normal 6.0-15.0 e [facility] Comment on above: Performed By: #### P T #### [address] Calcium [Mass/Vol] 8.3 mg/dL Low 8.6-10.3 [facility] Comment on above: Performed By: #### P T #### [address] Chloride [Moles/Vol] 101 mmol/L Normal 98-107 [facility] Comment on above: Performed By: #### P T #### [address] CO2 [Moles/Vol] 24.4 mmol/L Normal 21.0-31.0 [facility] Comment on above: Performed By: #### P T #### [address] Creatinine [Mass/Vol] 1.25 mg/dL High 0.60-1.20 [facility] Comment on above: Performed By: #### P T #### [address] Creatinine Clr Calc Pharmacy 32.56 Normal [facility] Comment on above: Result Comment: PERF ORMED BY: [place] [address] PATHOLOGIST RETAIL LOSS PREVENTION 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 Performed By: #### P T #### [address] GFR/1.73 sq M.predicted MDRD (S/P/Bld) [Vol rate/Area] 41.457 mL/min/{1.73_m2} Normal [facility] Comment on above: Performed By: #### P T #### [address] Glucose [Mass/Vol] 106 mg/dL High 70-100 [facility] Comment on above: Result Comment: [facility] Glucose Reference Range is dependent on time and content of last meal. Glucose of more than 200 mg/dL in a nonstressed, ambulatory subject supports the diagnosis of Diabetes Mellitus. ADA recommended reference range Performed By: #### P T #### [address] Potassium [Moles/Vol] 4.3 mmol/L Normal 3.5-5.1 [facility] Comment on above: Performed By: #### P T #### [address] Sodium [Moles/Vol] 132 mmol/L Low 136-145 [facility] Comment on above: Performed By: #### P T #### [address] Urea nitrogen [Mass/Vol] 27 mg/dL High 7-25 [facility] Comment on above: Performed By: #### P T #### [address] Complete Blood Count Auto Di ffon 11-22-2022 Basophils (Bld) [#/Vol] 0.0 10*3/uL Normal 0.0-0.2 [facility] Comment on above: Result Comment: PERF ORMED BY: [place] [address] PATHOLOGIST RETAIL LOSS PREVENTION 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 Performed By: #### P T #### [place] [address] [place] Basophils/100 WBC (Bld) 0.8 % Normal . [facility] Comment on above: Performed By: #### P T #### [address] Eosinophils (Bld) [#/Vol] 0.1 10*3/uL Normal 0.0-0.45 [facility] Comment on above: Performed By: #### P T #### [address] Eosinophils/100 WBC (Bld) 2.0 % Normal . [facility] Comment on above: Performed By: #### P T #### [address] Erythrocyte distribution width (RBC) [Ratio] 14.7 % Normal 11.9-15.3 [facility] Comment on above: Performed By: #### P T #### [address] Hematocrit (Bld) [Volume fraction] 40.3 % Normal 34.0-46.4 [facility] Comment on above: Performed By: #### P T #### [address] Hemoglobin (Bld) [Mass/Vol] 13.3 g/dL Normal 11.8-15.4 [facility] Comment on above: Performed By: #### P T #### [address] Lymphocytes (Bld) [#/Vol] 1.0 10*3/uL Normal 1.00-4.8 [facility] Comment on above: Performed By: #### P T #### [address] Lymphocytes/100 WBC (Bld) 17.8 % Normal . [facility] Comment on above: Performed By: #### P T #### [address] MCH (RBC) [Entitic mass] 31.7 pg Normal 24.7-34.3 [facility] Comment on above: Performed By: #### P T #### [address] MCV (RBC) [Entitic vol] 96.0 fL Normal 80-100 [facility] Comment on above: Performed By: #### P T #### [address] Mean Corpuscular HGB Conc 33.0 g/dL Normal 32.0-35.0 [facility] Comment on above: Performed By: #### P T #### [address] Monocytes (Bld) [#/Vol] 0.5 10*3/uL Normal 0.0-0.8 [facility] Comment on above: Performed By: #### P T #### [address] Monocytes/100 WBC (Bld) 9.6 % Normal . [facility] Comment on above: Performed By: #### P T #### [address] Neutrophils (Bld) [#/Vol] 3.9 10*3/uL Normal 1.8-7.7 [facility] Comment on above: Performed By: #### P T #### [address] Neutrophils/100 WBC (Bld) 69.8 % Normal . [facility] Comment on above: Performed By: #### P T #### [address] NRBC% 0.1 /100{WBC} Normal 0-0.5 [facility] Comment on above: Performed By: #### P T #### [address] Platelet mean volume (Bld) [Entitic vol] 7.5 fL Normal 6.3-10.7 [facility] Comment on above: Performed By: #### P T #### [place] [address] [place] Platelets (Bld) [#/Vol] 172 10*3/uL Normal 150-450 [facility] Comment on above: Performed By: #### P T #### [facility] [address] RBC (Bld) [#/Vol] 4.20 10*6/uL Normal 3.60-5.00 [facility] Comment on above: Performed By: #### P T #### [facility] [address] WBC (Bld) [#/Vol] 5.5 10*3/uL Normal 3.8-11.6 [facility] Comment on above: Performed By: #### P T #### [address] ECG 12 lead ECGon 11-22-2022 ECG 12 lead ECG [facility] [place] [address] [place] [address] Electrocardiograph Report Signed Patient: Erin Canales MR#: [id number] : 1935 Acct:[id number] Age/Sex: 87 / F ADM Date: 11/19/22 Loc: Room: [address] [place] [address] Type: ADM IN Attending Dr: Danilo Drummond [...] By Stephanie Arteaga MD 1107 Normal [facility] Partial Thromboplastin Timeo n 11-22-2022 aPTT Coag (Bld) [Time] 32.5 s Normal 25.1-36.5 Th e [facility] Comment on above: Result Comment: PERF ORMED BY: [place] [address] PATHOLOGIST RETAIL LOSS PREVENTION 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 Performed By: #### P T #### [place] [id number] [facility] Prothrombin Time INRon 11-22 INR Coag (PPP) [Relative time] 1.2 {INR} Normal [facility] Comment on above: Result Comment: INR Therapeutic [...] 4.5 Performed By: #### P T #### [address] PT Coag (PPP) [Time] 13.7 s High 9.0-12.9 [facility] Comment on above: Performed By: #### P T #### [place] [id number] [place] XR chest 1V portableon 11-22 XR chest 1V portable [facility] [place] [address] XRay Report Signed Patient: Erin Canales MR#: [id number] : 1935 Acct:[id number] Age/Sex: 87 / F ADM Date: 11/19/22 Loc: Room: [address] [place] [address] Type: ADM IN Attending Dr: Danilo Drummond [...] Christine Aguila M.D.11/22/2022 12:08 PM Dictation Location: [place] [address] Transcribed By: [facility] 11/22/22 1208 Dictated By: Christine Aguila MD 11/22/22 1203 Signed By: 11/22/22 1208 Normal [facility] Potassiumon 11-21-2022 Potassium [Moles/Vol] 4.3 mmol/L Normal 3.5-5.1 [facility] Comment on above: Order Comment: Comme nt ok to add to prev drawn blood Result Comment: PERF ORMED BY: [place] [address] PATHOLOGIST RETAIL LOSS PREVENTION 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 Performed By: #### K #### [address] Prothrombin Time INRon 11-21 INR Coag (PPP) [Relative time] 1.5 {INR} Normal [facility] Comment on above: Result Comment: INR Therapeutic [...] heart valves: 3 - 4.5 PERFORMED BY: [place] [address] PATHOLOGIST RETAIL LOSS PREVENTION 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 Performed By: #### P T #### [address] PT Coag (PPP) [Time] 17.7 s Significant change up 9.0-12.9 [facility] Comment on above: Performed By: #### P T #### [address] Basic Metabolic Panelon 08- Anion gap [Moles/Vol] 11.9 mmol/L Normal 6.0-15.0 e [facility] Comment on above: Performed By: #### P T #### [address] Calcium [Mass/Vol] 8.4 mg/dL Low 8.6-10.3 [facility] Comment on above: Performed By: #### P T #### [address] Chloride [Moles/Vol] 99 mmol/L Normal 98-107 [facility] Comment on above: Performed By: #### P T #### [address] CO2 [Moles/Vol] 23.3 mmol/L Normal 21.0-31.0 [facility] Comment on above: Performed By: #### P T #### [address] Creatinine [Mass/Vol] 1.06 mg/dL Normal 0.60-1.20 [facility] Comment on above: Performed By: #### P T #### [address] Creatinine Clr Calc Pharmacy 38.40 Normal [facility] Comment on above: Result Comment: PERF ORMED BY: [place] [address] PATHOLOGIST RETAIL LOSS PREVENTION OFFICER JIANLAN SUN M.D. Performed By: #### P T #### [address] GFR/1.73 sq M.predicted MDRD (S/P/Bld) [Vol rate/Area] 50.528 mL/min/{1.73_m2} Normal [facility] Comment on above: Performed By: #### P T #### [address] Glucose [Mass/Vol] 105 mg/dL High 70-100 [facility] Comment on above: Result Comment: [facility] Glucose Reference Range is dependent on time and content of last meal. Glucose of more than 200 mg/dL in a nonstressed, ambulatory subject supports the diagnosis of Diabetes Mellitus. ADA recommended reference range Performed By: #### P T #### [address] Potassium [Moles/Vol] 4.2 mmol/L Normal 3.5-5.1 [facility] Comment on above: Performed By: #### P T #### [address] Sodium [Moles/Vol] 130 mmol/L Low 136-145 [facility] Comment on above: Performed By: #### P T #### [address] Urea nitrogen [Mass/Vol] 19 mg/dL Normal 7-25 [facility] Comment on above: Performed By: #### P T #### [address] Complete Blood Count Auto Di ffon 11-20-2022 Basophils (Bld) [#/Vol] 0.0 10*3/uL Normal 0.0-0.2 [facility] Comment on above: Result Comment: PERF ORMED BY: [place] [address] PATHOLOGIST RETAIL LOSS PREVENTION 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 Performed By: #### C BC, BMP ####[place] [address] [place] Basophils/100 WBC (Bld) 0.9 % Normal . [facility] Comment on above: Performed By: #### C BC, BMP ####[address] Eosinophils (Bld) [#/Vol] 0.1 10*3/uL Normal 0.0-0.45 [facility] Comment on above: Performed By: #### C BC, BMP ####[address] Eosinophils/100 WBC (Bld) 2.0 % Normal . [facility] Comment on above: Performed By: #### C BC, BMP ####[address] Erythrocyte distribution width (RBC) [Ratio] 14.6 % Normal 11.9-15.3 [facility] Comment on above: Performed By: #### C BC, BMP ####[address] Hematocrit (Bld) [Volume fraction] 39.3 % Normal 34.0-46.4 [facility] Comment on above: Performed By: #### C BC, BMP ####[address] Hemoglobin (Bld) [Mass/Vol] 13.1 g/dL Normal 11.8-15.4 [facility] Comment on above: Performed By: #### C BC, BMP ####[address] Lymphocytes (Bld) [#/Vol] 1.2 10*3/uL Normal 1.00-4.8 [facility] Comment on above: Performed By: #### C BC, BMP ####[address] Lymphocytes/100 WBC (Bld) 21.8 % Normal . [facility] Comment on above: Performed By: #### C BC, BMP ####[address] MCH (RBC) [Entitic mass] 32.0 pg Normal 24.7-34.3 [facility] Comment on above: Performed By: #### C BC, BMP ####[address] MCV (RBC) [Entitic vol] 96.1 fL Normal 80-100 [facility] Comment on above: Performed By: #### C BC, BMP ####[address] Mean Corpuscular HGB Conc 33.4 g/dL Normal 32.0-35.0 [facility] Comment on above: Performed By: #### C BC, BMP ####[address] Monocytes (Bld) [#/Vol] 0.5 10*3/uL Normal 0.0-0.8 [facility] Comment on above: Performed By: #### C BC, BMP ####[address] Monocytes/100 WBC (Bld) 9.8 % Normal . [facility] Comment on above: Performed By: #### C BC, BMP ####[address] Neutrophils (Bld) [#/Vol] 3.5 10*3/uL Normal 1.8-7.7 [facility] Comment on above: Performed By: #### C BC, BMP ####[address] Neutrophils/100 WBC (Bld) 65.5 % Normal . [facility] Comment on above: Performed By: #### C BC, BMP ####[address] NRBC% 0.1 /100{WBC} Normal 0-0.5 [facility] Comment on above: Performed By: #### C BC, BMP ####[address] Platelet mean volume (Bld) [Entitic vol] 7.6 fL Normal 6.3-10.7 [facility] Comment on above: Performed By: #### C BC, BMP ####[address] Platelets (Bld) [#/Vol] 167 10*3/uL Normal 150-450 [facility] Comment on above: Performed By: #### C BC, BMP ####[address] RBC (Bld) [#/Vol] 4.09 10*6/uL Normal 3.60-5.00 [facility] Comment on above: Performed By: #### C BC, BMP ####[address] WBC (Bld) [#/Vol] 5.3 10*3/uL Normal 3.8-11.6 [facility] Comment on above: Performed By: #### C BENJAMIN, BMP ####[address] Free T4 (Free Thyroxine)on 0 11-20-2022 Free T4 [Mass/Vol] 0.68 ng/dL Normal 0.61-1.12 [facility] Comment on above: Order Comment: Comme nt ok to add to prev drawn blood Result Comment: PERF ORMED BY: [place] [address] PATHOLOGIST RETAIL LOSS PREVENTION 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 Performed By: #### K #### [address] Prothrombin Time INRon 11-20 INR Coag (PPP) [Relative time] 3.4 {INR} Normal [facility] Comment on above: Result Comment: INR Therapeutic [...] heart valves: 3 - 4.5 PERFORMED BY: [place] [address] PATHOLOGIST RETAIL LOSS PREVENTION 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 Performed By: #### C BC #### [place] [id number] [facility] PT Coag (PPP) [Time] 38.7 s High 9.0-12.9 [facility] Comment on above: Performed By: #### C BC #### [place] [id number] [facility] Thyroxine (T4) free [Mass/vo lume] in Serum or PlasmaOrdered By: Danilo Drummond on 11-20-2022 Free T4 [Mass/Vol] 0.68 ng/dL 0.61-1.12 [facility] US venous duplex LE BIon US venous duplex LE BI [facility] Main [place] [address] [place] [address] Ultrasound Report Signed Patient: Erin Canales MR#: [id number] : 1935 Acct:[id number] Age/Sex: 87 / F ADM Date: 11/19/22 Loc: Room: [address] [place] [address] Type: ADM IN Attending Dr: Danilo Drummond [...] Jag Calles M.D.11/20/2022 2:07 PM Dictation Location: [facility] Tech: Nina Vivar Transcribed By: ANNA 11/20/221406 Dictated By: Jag Calles MD 11/20/221405 Signed By: 11/20/221406 Normal [facility] Basic Metabolic Panelon 11-07 Anion gap [Moles/Vol] 9.3 mmol/L Normal 6.0-15.0 [facility] Comment on above: Performed By: #### C BC #### [address] Calcium [Mass/Vol] 8.5 mg/dL Low 8.6-10.3 [facility] Comment on above: Performed By: #### C BC #### [address] Chloride [Moles/Vol] 97 mmol/L Low 98-107 [facility] Comment on above: Performed By: #### C BC #### [address] CO2 [Moles/Vol] 27.7 mmol/L Normal 21.0-31.0 [facility] Comment on above: Performed By: #### C BC #### [address] Creatinine [Mass/Vol] 0.94 mg/dL Normal 0.60-1.20 [facility] Comment on above: Performed By: #### C BC #### [address] Creatinine Clr Calc Pharmacy 43.30 Normal [facility] Comment on above: Result Comment: PERF ORMED BY: [place] [address] PATHOLOGIST RETAIL LOSS PREVENTION 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 Performed By: #### C BC #### [address] GFR/1.73 sq M.predicted MDRD (S/P/Bld) [Vol rate/Area] 58.364 mL/min/{1.73_m2} Normal [facility] Comment on above: Performed By: #### C BC #### [facility] [address] Glucose [Mass/Vol] 105 mg/dL High 70-100 [facility] Comment on above: Result Comment: [facility] Glucose Reference Range is dependent on time and content of last meal. Glucose of more than 200 mg/dL in a nonstressed, ambulatory subject supports the diagnosis of Diabetes Mellitus. ADA recommended reference range Performed By: #### C BC #### [address] Potassium [Moles/Vol] 4.0 mmol/L Normal 3.5-5.1 [facility] Comment on above: Performed By: #### C BC #### [address] Sodium [Moles/Vol] 130 mmol/L Low 136-145 [facility] Comment on above: Performed By: #### C BC #### [address] Urea nitrogen [Mass/Vol] 18 mg/dL Normal 7-25 [facility] Comment on above: Performed By: #### C BC #### [address] ECG 12 lead ECGon 11-19-2022 ECG 12 lead ECG [facility] [place] [address] Electrocardiograph Report Signed Patient: Erin Canales MR#: [id number] : 1935 Acct:[id number] Age/Sex: 87 / F ADM Date: 11/17/22 Loc: Room: [address] [place] [address] Type: ADM INOo Attending Dr: Ailyn Meng [...] Anterior infarct present Confirmed by CHAPIS LUNA [facility], BG ([id number]) on 11/19/2022 9:20:27 PM Referred By: Electronically Signed By:BG NATION MD [facility] Transcribed By: MUS Signed By Bg Nation MD, [facility] 11/19/220 Normal [facility] Prothrombin Time INRon 11-19 INR Coag (PPP) [Relative time] 4.6 {INR} Normal [facility] Comment on above: Result Comment: INR [...] heart valves: 3 - 4.5 PERFORMED BY: [place] [address] PATHOLOGIST RETAIL LOSS PREVENTION 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 Performed By: #### P T ####[address] PT Coag (PPP) [Time] 53.0 s High 9.0-12.9 [facility] Comment on above: Performed By: #### P T ####[address] Basic Metabolic Panelon 11-07 Anion gap [Moles/Vol] 10.5 mmol/L Normal 6.0-15.0 [facility] e [facility] Comment on above: Order Comment: FASTI NG N Performed By: #### C BC #### [address] Calcium [Mass/Vol] 8.9 mg/dL Normal 8.6-10.3 [facility] Comment on above: Order Comment: FASTI NG N Performed By: #### C BC #### [facility] [address] [place] [address] [place] Chloride [Moles/Vol] 97 mmol/L Low 98-107 [facility] Comment on above: Order Comment: FASTI NG N Performed By: #### C BC #### [facility] [address] [place] [address] [place] CO2 [Moles/Vol] 29.2 mmol/L Normal 21.0-31.0 [facility] Comment on above: Order Comment: FASTI NG N Performed By: #### C BC #### [facility] [address] Creatinine [Mass/Vol] 1.03 mg/dL Normal 0.60-1.20 [facility] Comment on above: Order Comment: FASTI NG N Performed By: #### C BC #### [facility] [address] [place] [address] [place] Creatinine Clr Calc Pharmacy 38.56 Normal [facility] Comment on above: Order Comment: FASTI NG N Performed By: #### C BC #### [facility] [address] [place] [address] [place] GFR/1.73 sq M.predicted MDRD (S/P/Bld) [Vol rate/Area] 52.299 mL/min/{1.73_m2} Normal [facility] Comment on above: Order Comment: FASTI NG N Performed By: #### C BC #### [facility] [address] [place] [address] [place] Glucose [Mass/Vol] 103 mg/dL High 70-100 [facility] Comment on above: Order Comment: FASTI NG N Result Comment: [place] [facility] Glucose Reference Range is dependent on time and content of last meal. Glucose of more than 200 mg/dL in a nonstressed, ambulatory subject supports the diagnosis of Diabetes Mellitus. ADA recommended reference range Performed By: #### C BC #### [facility] [address] Potassium [Moles/Vol] 4.7 mmol/L Normal 3.5-5.1 [facility] Comment on above: Order Comment: FASTI NG N Performed By: #### C BC #### [facility] [address] [place] [address] [place] Sodium [Moles/Vol] 132 mmol/L Low 136-145 [facility] Comment on above: Order Comment: FASTI NG N Performed By: #### C BC #### [facility] [address] [place] [address] [place] Urea nitrogen [Mass/Vol] 16 mg/dL Normal 7-25 [facility] Comment on above: Order Comment: FASTI NG N Performed By: #### C BC #### [facility] [address] Cholesterol [Mass/volume] in Serum or PlasmaOrdered By: Jamie Hathaway on 11-18-2022 Cholesterol [Mass/Vol] 154 mg/dL 140-200 [facility] Comment on above: Chol less than 200 m g/dl low riskChol 201-239 mg/dl borderline riskChol 240 mg/dl and greater high risk Cholesterol in LDL Calc [Mas s/Vol]Ordered By: Jamie Hathaway on 11-18-2022 Cholesterol in LDL [Mass/Vol] 79 mg/dL 0-100 [facility] Comment on above: LDL ATP III CLASSIFI CATIONLDL less than 100 mg/dL OptimalLDL 100-129 mg/dL Near or above optimalLDL 130-159 mg/dL Borderline highLDL 160-189 mg/dL HighLDL greater than 189 mg/dL Very high Cholesterol in VLDL Calc [Ma ss/Vol]Ordered By: Jamie Hathaway on 11-18-2022 Cholesterol in VLDL [Mass/Vol] 25 mg/dL [facility] Complete Blood Count Auto Di ffon 11-18-2022 Basophils (Bld) [#/Vol] 0.1 10*3/uL Normal 0.0-0.2 [facility] Comment on above: Result Comment: PERF ORMED BY: [place] [address] PATHOLOGIST RETAIL LOSS PREVENTION 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 Performed By: #### P T #### [place] [address] [place] Basophils/100 WBC (Bld) 1.2 % Normal . [facility] Comment on above: Performed By: #### P T #### [address] Eosinophils (Bld) [#/Vol] 0.1 10*3/uL Normal 0.0-0.45 [facility] Comment on above: Performed By: #### P T #### [address] Eosinophils/100 WBC (Bld) 1.7 % Normal . [facility] Comment on above: Performed By: #### P T #### [address] Erythrocyte distribution width (RBC) [Ratio] 14.7 % Normal 11.9-15.3 [facility] Comment on above: Performed By: #### P T #### [address] Hematocrit (Bld) [Volume fraction] 40.2 % Normal 34.0-46.4 [facility] Comment on above: Performed By: #### P T #### [address] Hemoglobin (Bld) [Mass/Vol] 13.4 g/dL Normal 11.8-15.4 [facility] Comment on above: Performed By: #### P T #### [address] Lymphocytes (Bld) [#/Vol] 1.2 10*3/uL Normal 1.00-4.8 [facility] Comment on above: Performed By: #### P T #### [place] [address] [place] Lymphocytes/100 WBC (Bld) 23.5 % Normal . [facility] Comment on above: Performed By: #### P T #### [address] MCH (RBC) [Entitic mass] 32.0 pg Normal 24.7-34.3 [facility] Comment on above: Performed By: #### P T #### [address] MCV (RBC) [Entitic vol] 96.1 fL Normal 80-100 [facility] Comment on above: Performed By: #### P T #### [address] Mean Corpuscular HGB Conc 33.3 g/dL Normal 32.0-35.0 [facility] Comment on above: Performed By: #### P T #### [address] Monocytes (Bld) [#/Vol] 0.5 10*3/uL Normal 0.0-0.8 [facility] Comment on above: Performed By: #### P T #### [address] Monocytes/100 WBC (Bld) 9.8 % Normal . [facility] Comment on above: Performed By: #### P T #### [address] Neutrophils (Bld) [#/Vol] 3.2 10*3/uL Normal 1.8-7.7 [facility] Comment on above: Performed By: #### P T #### [address] Neutrophils/100 WBC (Bld) 63.8 % Normal . [facility] Comment on above: Performed By: #### P T #### [address] NRBC% 0.2 /100{WBC} Normal 0-0.5 [facility] Comment on above: Performed By: #### P T #### [address] Platelet mean volume (Bld) [Entitic vol] 7.8 fL Normal 6.3-10.7 [facility] Comment on above: Performed By: #### P T #### [place] [address] [place] Platelets (Bld) [#/Vol] 198 10*3/uL Normal 150-450 [facility] Comment on above: Performed By: #### P T #### [address] RBC (Bld) [#/Vol] 4.19 10*6/uL Normal 3.60-5.00 [facility] Comment on above: Performed By: #### P T #### [place] [id number] [facility] WBC (Bld) [#/Vol] 5.0 10*3/uL Normal 3.8-11.6 [facility] Comment on above: Performed By: #### P T #### [address] ECG 12 lead ECGon 11-18-2022 ECG 12 lead ECG [facility] Main [place] [address] [place] [address] Electrocardiograph Report Signed Patient: Erni Canales MR#: [id number] : 1935 Acct:[id number] Age/Sex: 87 / F ADM Date: 11/17/22 Loc: Room: [address] [place] [address] Type: ADM INOo Attending Dr: Ailyn Meng [...] QT has shortened Confirmed by CHAPIS LUNA [facility], BG ([id number]) on 11/18/2022 2:24:41 PM Referred By: Electronically Signed By:BG NATION MD [facility] Transcribed By: MUS Signed By Bg Nation MD, [facility] 11/18/22 1424 Normal [facility] Lipid Panelon 11-18-2022 Cholesterol [Mass/Vol] 154 mg/dL Normal 140-200 [facility] Comment on above: Order Comment: FASTI NG N Result Comment: Chol less than 200 mg/dl low risk Chol 201-239 mg/dl borderline risk Chol 240 mg/dl and greater high risk Performed By: #### C BC #### [facility] [address] [place] [id number] [facility] Cholesterol in HDL [Mass/Vol] 50 mg/dL Normal 23-92 [facility] Comment on above: Order Comment: FASTI NG N Result Comment: HDL CHOL ATP-III CLASSIFICATION Cardiovascular Risk HDL > or equal to 60 mg/dL LOW HDL < 40 mg/dL HIGH Performed By: #### C BC #### [facility] [address] Cholesterol.total/Chol esterol in HDL [Mass ratio] 3.1 {ratio} Normal <5.0 [facility] Comment on above: Order Comment: FASTI NG N Result Comment: PERF ORMED BY: [place] [address] PATHOLOGIST RETAIL LOSS PREVENTION 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 Performed By: #### C BC #### [facility] [address] [place] [id number] [facility] LDL Cholesterol,Calculated 79 mg/dL Normal 0-100 [facility] Comment on above: Order Comment: FASTI NG N Result Comment: LDL ATP III CLASSIFICATION LDL less than 100 mg/dL Optimal LDL 100-129 mg/dL Near or above optimal LDL 130-159 mg/dL Borderline high LDL 160-189 mg/dL High LDL greater than 189 mg/dL Very high Performed By: #### C BC #### [facility] [address] [place] [id number] [place] Triglyceride w/Reflex 125 mg/dL Normal 0-149 [facility] Comment on above: Order Comment: FASTI NG N Result Comment: TRIG ATP III CLASSIFICATION TRIG less than 150 mg/dL Normal TRIG 150-199 mg/dL Borderline high TRIG 200-500 mg/dL High TRIG greater than 500 mg/dL Very high Standard traceable to the Center for Disease Conrtrol and Prevention (CDC) test method. Performed By: #### C BC #### [address] VLDL CHOLESTEROL 25 mg/dL Normal [facility] Comment on above: Order Comment: JOSEPHINE BEDOLLA N Performed By: #### C BC #### [address] Magnesiumon 11-18-2022 Magnesium [Mass/Vol] 2.1 mg/dL Normal 1.9-2.7 [facility] Comment on above: Order Comment: Comme nt add Performed By: #### P T #### [address] Magnesium [Mass/volume] in S payal or PlasmaOrdered By: Ailyn Meng on 11-18-2022 Magnesium [Mass/Vol] 2.1 mg/dL 1.9-2.7 [place] Prothrombin Time INRon 11-18 INR Coag (PPP) [Relative time] 4.5 {INR} Normal [facility] Comment on above: Result Comment: INR Therapeutic [...] heart valves: 3 - 4.5 PERFORMED BY: [place] [address] PATHOLOGIST RETAIL LOSS PREVENTION 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 Performed By: #### C BC #### [address] PT Coag (PPP) [Time] 52.3 s High 9.0-12.9 [facility] Comment on above: Performed By: #### C BC #### [address] Serum or plasma high density lipoprotein (HDL) cholesterol measurementOrdered By: Jamie Hathaway on 11-18-2022 Cholesterol in HDL [Mass/Vol] 50 mg/dL 23- [facility] Comment on above: HDL CHOL ATP-III CLA SSIFICATION Cardiovascular RiskHDL > or equal to 60 mg/dL LOWHDL < 40 mg/dL HIGH Serum or plasma total choles terol/high density lipoprotein (HDL) cholesterol mass ratOrdered By: Jamie Hathaway on 11-18-2022 Cholesterol.total/Chol esterol in HDL [Mass ratio] 3.1 {ratio} <5.0 [facility] Thyroid Stimulating Hormoneo n 11-18-2022 TSH Qn 7.98 m[IU]/L High 0.45-5.33 [facility] Comment on above: Order Comment: Comme nt ok to add to prev drawn blood Result Comment: PERF ORMED BY: [place] [address] PATHOLOGIST RETAIL LOSS PREVENTION 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 Performed By: #### K #### [address] Thyrotropin [Units/volume] i n Serum or PlasmaOrdered By: Ailyn Meng on 11-18-2022 TSH Qn 7.98 m[IU]/L 0.45-5.33 [facility] Triglyceride [Mass/volume] i n Serum or PlasmaOrdered By: Jamie Hathaway on 11-18-2022 Triglyceride [Mass/Vol] 125 mg/dL 0-149 [facility] Comment on above: TRIG ATP III CLASSIF ICATIONTRIG less than 150 mg/dL NormalTRIG 150-199 mg/dL Borderline highTRIG 200-500 mg/dL High TRIG greater than 500 mg/dL Very highStandard traceable to the Center for Disease Conrtrol and Prevention (CDC) test method. Troponin I High Sensitivityo n 11-18-2022 Troponin I High Sensitivity 18.4 pg/mL High 0.0-15.0 [facility] Comment on above: Result Comment: PERF ORMED BY: [place] [address] PATHOLOGIST RETAIL LOSS PREVENTION 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 Performed By: #### C BC #### [facility] [address] Troponin I High Sensitivity 18.8 pg/mL High 0.0-15.0 [facility] Comment on above: Result Comment: PERF ORMED BY: [facility] [address] [place] [address] PATHOLOGIST RETAIL LOSS PREVENTION 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 Performed By: #### C BC #### [facility] [address] Troponin I High Sensitivity 24.9 pg/mL High 0.0-15.0 [facility] Comment on above: Result Comment: PERF ORMED BY: [place] [address] PATHOLOGIST RETAIL LOSS PREVENTION 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 Performed By: #### P T #### [facility] [address] [place] [address] Troponin I.cardiac [Mass/vol ume] in Serum or Plasma by Detection limit <= 0.01 ng/Ordered By: Jamie Hathaway on 11-18-2022 Troponin I.cardiac DL <= 0.01 ng/mL [Mass/Vol] 18.8 pg/mL 0.0-15.0 [facility] Activated partial thrombopla stin time (aPTT) in platelet poor plasma by coagulation aOrdered By: Philip Thompson on 11-17-2022 aPTT Coag (PPP) [Time] 46.9 s 25.1-36.5 [facility] B-Type Natriuretic Peptideon 11-17-2022 Natriuretic peptide B (Bld) [Mass/Vol] 249.0 pg/mL High 5-100 [facility] Comment on above: Result Comment: PERF ORMED BY: [place] [address] PATHOLOGIST RETAIL LOSS PREVENTION 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 Performed By: #### P TT, BMP, HS TROP, CK, CBC, BNP, PT ####[facility] [id number] Basic Metabolic Panelon 11-07 Anion gap [Moles/Vol] 12.5 mmol/L Normal 6.0-15.0 [facility] e [facility] Comment on above: Performed By: #### P TT, BMP, HS TROP, CK, CBC, BNP, PT ####[address] Calcium [Mass/Vol] 9.5 mg/dL Normal 8.6-10.3 [facility] Comment on above: Performed By: #### P TT, BMP, HS TROP, CK, CBC, BNP, PT ####[address] [address] [facility] Chloride [Moles/Vol] 94 mmol/L Low 98-107 [facility] Comment on above: Performed By: #### P TT, BMP, HS TROP, CK, CBC, BNP, PT ####[address] CO2 [Moles/Vol] 27.5 mmol/L Normal 21.0-31.0 [facility] Comment on above: Performed By: #### P TT, BMP, HS TROP, CK, CBC, BNP, PT ####[place] [id number] [facility] Creatinine [Mass/Vol] 1.12 mg/dL Normal 0.60-1.20 [facility] Comment on above: Performed By: #### P TT, BMP, HS TROP, CK, CBC, BNP, PT ####[address] Creatinine Clr Calc Pharmacy 34.38 Normal [facility] Comment on above: Result Comment: PERF ORMED BY: [facility] [address] [place] [address] PATHOLOGIST RETAIL LOSS PREVENTION 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 Performed By: #### P TT, BMP, HS TROP, CK, CBC, BNP, PT ####[address] GFR/1.73 sq M.predicted MDRD (S/P/Bld) [Vol rate/Area] 47.298 mL/min/{1.73_m2} Normal [facility] Comment on above: Performed By: #### P TT, BMP, HS TROP, CK, CBC, BNP, PT ####[address] Glucose [Mass/Vol] 132 mg/dL High 70-100 [facility] Comment on above: Result Comment: [facility] Glucose Reference Range is dependent on time and content of last meal. Glucose of more than 200 mg/dL in a nonstressed, ambulatory subject supports the diagnosis of Diabetes Mellitus. ADA recommended reference range Performed By: #### P TT, BMP, HS TROP, CK, CBC, BNP, PT ####[address] Potassium [Moles/Vol] 4.0 mmol/L Normal 3.5-5.1 [facility] Comment on above: Performed By: #### P TT, BMP, HS TROP, CK, CBC, BNP, PT ####[address] Sodium [Moles/Vol] 130 mmol/L Low 136-145 [facility] Comment on above: Performed By: #### P TT, BMP, HS TROP, CK, CBC, BNP, PT ####[address] Urea nitrogen [Mass/Vol] 19 mg/dL Normal 7-25 [facility] Comment on above: Performed By: #### P TT, BMP, HS TROP, CK, CBC, BNP, PT ####[address] Basophils Auto (Bld) [#/Vol] Ordered By: Philip Thompson on 11-17-2022 Basophils (Bld) [#/Vol] 0.0 10*3/uL 0.0-0.2 [facility] Basophils/100 WBC Auto (Bld) Ordered By: Philip Thompson on 11-17-2022 Basophils/100 WBC (Bld) 0.8 % . [facility] Calcium [Mass/volume] in Ser um or PlasmaOrdered By: Philip Thompson on 11-17-2022 Calcium [Mass/Vol] 9.5 mg/dL 8.6-10.3 [facility] Carbon dioxide, total [Moles /volume] in Serum or PlasmaOrdered By: Philip Thompson on 11-17-2022 CO2 [Moles/Vol] 27.5 mmol/L 21.0-31.0 [facility] Chloride [Moles/volume] in S payal or PlasmaOrdered By: Philip Thompson on 11-17-2022 Chloride [Moles/Vol] 94 mmol/L 98-107 [place] Complete Blood Count Auto Di ffon 11-17-2022 Basophils (Bld) [#/Vol] 0.0 10*3/uL Normal 0.0-0.2 [facility] Comment on above: Result Comment: PERF ORMED BY: [facility] [address] [place] [address] PATHOLOGIST RETAIL LOSS PREVENTION 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 Performed By: #### P TT, BMP, HS TROP, CK, CBC, BNP, PT ####[address] Basophils/100 WBC (Bld) 0.8 % Normal . [facility] Comment on above: Performed By: #### P TT, BMP, HS TROP, CK, CBC, BNP, PT ####[address] Eosinophils (Bld) [#/Vol] 0.0 10*3/uL Normal 0.0-0.45 [facility] Comment on above: Performed By: #### P TT, BMP, HS TROP, CK, CBC, BNP, PT ####[address] Eosinophils/100 WBC (Bld) 0.8 % Normal . [facility] Comment on above: Performed By: #### P TT, BMP, HS TROP, CK, CBC, BNP, PT ####[address] Erythrocyte distribution width (RBC) [Ratio] 15.0 % Normal 11.9-15.3 [facility] Comment on above: Performed By: #### P TT, BMP, HS TROP, CK, CBC, BNP, PT ####[address] Hematocrit (Bld) [Volume fraction] 44.6 % Normal 34.0-46.4 [facility] Comment on above: Performed By: #### P TT, BMP, HS TROP, CK, CBC, BNP, PT ####[address] Hemoglobin (Bld) [Mass/Vol] 14.8 g/dL Normal 11.8-15.4 [facility] Comment on above: Performed By: #### P TT, BMP, HS TROP, CK, CBC, BNP, PT ####[address] Lymphocytes (Bld) [#/Vol] 1.0 10*3/uL Normal 1.00-4.8 [facility] Comment on above: Performed By: #### P TT, BMP, HS TROP, CK, CBC, BNP, PT ####[address] Lymphocytes/100 WBC (Bld) 17.1 % Normal . [facility] Comment on above: Performed By: #### P TT, BMP, HS TROP, CK, CBC, BNP, PT ####[address] MCH (RBC) [Entitic mass] 32.1 pg Normal 24.7-34.3 [facility] Comment on above: Performed By: #### P TT, BMP, HS TROP, CK, CBC, BNP, PT ####[address] MCV (RBC) [Entitic vol] 96.6 fL Normal 80-100 [facility] Comment on above: Performed By: #### P TT, BMP, HS TROP, CK, CBC, BNP, PT ####[address] Mean Corpuscular HGB Conc 33.2 g/dL Normal 32.0-35.0 [facility] Comment on above: Performed By: #### P TT, BMP, HS TROP, CK, CBC, BNP, PT ####[address] Monocytes (Bld) [#/Vol] 0.5 10*3/uL Normal 0.0-0.8 [facility] Comment on above: Performed By: #### P TT, BMP, HS TROP, CK, CBC, BNP, PT ####[address] Monocytes/100 WBC (Bld) 16.19 % Normal 0.00-20.00 [facility] Comment on above: Performed By: #### P TT, BMP, HS TROP, CK, CBC, BNP, PT ####[address] Monocytes/100 WBC (Bld) 7.8 % Normal . [facility] Comment on above: Performed By: #### P TT, BMP, HS TROP, CK, CBC, BNP, PT ####[address] Neutrophils (Bld) [#/Vol] 4.3 10*3/uL Normal 1.8-7.7 [facility] Comment on above: Performed By: #### P TT, BMP, HS TROP, CK, CBC, BNP, PT ####[address] Neutrophils/100 WBC (Bld) 73.5 % Normal . [facility] Comment on above: Performed By: #### P TT, BMP, HS TROP, CK, CBC, BNP, PT ####[address] NRBC% 0.2 /100{WBC} Normal 0-0.5 [facility] Comment on above: Performed By: #### P TT, BMP, HS TROP, CK, CBC, BNP, PT ####[address] Platelet mean volume (Bld) [Entitic vol] 7.7 fL Normal 6.3-10.7 [facility] Comment on above: Performed By: #### P TT, BMP, HS TROP, CK, CBC, BNP, PT ####[address] Platelets (Bld) [#/Vol] 220 10*3/uL Normal 150-450 [facility] Comment on above: Performed By: #### P TT, BMP, HS TROP, CK, CBC, BNP, PT ####[address] RBC (Bld) [#/Vol] 4.62 10*6/uL Normal 3.60-5.00 [facility] Comment on above: Performed By: #### P TT, BMP, HS TROP, CK, CBC, BNP, PT ####[address] WBC (Bld) [#/Vol] 5.8 10*3/uL Normal 3.8-11.6 [facility] Comment on above: Performed By: #### P TT, BMP, HS TROP, CK, CBC, BNP, PT ####[address] Creatine Kinaseon 11-17-2022 CK [Catalytic activity/Vol] 62 U/L Normal 30-223 [facility] Comment on above: Performed By: #### P TT, BMP, HS TROP, CK, CBC, BNP, PT ####[address] Creatine kinase [Enzymatic a ctivity/volume] in Serum or PlasmaOrdered By: Philip Thompson on 11-17-2022 CK [Catalytic activity/Vol] 62 U/L 30-223 [facility] Creatinine [Mass/volume] in Serum or PlasmaOrdered By: Philip Thompson on 11-17-2022 Creatinine [Mass/Vol] 1.12 mg/dL 0.60-1.20 [facility] ECG 12 lead ECGon 11-17-2022 ECG 12 lead ECG [facility] [place] [address] Electrocardiograph Report Signed Patient: Erin Canales MR#: [id number] : 1935 Acct:[id number] Age/Sex: 87 / F ADM Date: 11/17/22 Loc: ER Room: Type: [facility] ER Attending Dr: Ordering Provider: Philip [...] By Philip Thompson DO 2040 Normal [facility] Eosinophils Auto (Bld) [#/Vo l]Ordered By: Philip Thompson on 11-17-2022 Eosinophils (Bld) [#/Vol] 0.0 10*3/uL 0.0-0.45 [facility] Eosinophils/100 WBC Auto (Bl d)Ordered By: Philip Thompson on 11-17-2022 Eosinophils/100 WBC (Bld) 0.8 % . [facility] Erythrocyte distribution wid th Auto (RBC) [Ratio]Ordered By: Philip Thompson on 11-17-2022 Erythrocyte distribution width (RBC) [Ratio] 15.0 % 11.9-15.3 [facility] Glucose [Mass/volume] in Ser um or PlasmaOrdered By: Philip Thompson on 11-17-2022 Glucose [Mass/Vol] 132 mg/dL 70-100 [facility] Comment on above: ADA recommended refe rence rangeRandom Glucose Reference Range is dependent on time and content of last meal. Glucose of more than 200 mg/dL in a nonstressed, ambulatory subject supports the diagnosis of Diabetes Mellitus. Hematocrit Auto (Bld) [Volum e fraction]Ordered By: Philip Thompson on 11-17-2022 Hematocrit (Bld) [Volume fraction] 44.6 % 34.0-46.4 [facility] Hemoglobin [Mass/volume] in BloodOrdered By: Philip Thompson on 11-17-2022 Hemoglobin (Bld) [Mass/Vol] 14.8 g/dL 11.8-15.4 [facility] Laboratory - CoagulationOrde red By: Philip Thompson on 11-17-2022 PT Coag (PPP) [Time] 42.9 s 9.0-12.9 [place] Leukocytes [#/volume] correc basim for nucleated erythrocytes in Blood by Automated counOrdered By: Philip Thompson on 11-17-2022 WBC corrected for nucl RBC Auto (Bld) [#/Vol] 5.8 10*3/uL 3.8-11.6 [facility] Lymphocytes Auto (Bld) [#/Vo l]Ordered By: Philip Thompson on 11-17-2022 Lymphocytes (Bld) [#/Vol] 1.0 10*3/uL 1.00-4.8 [facility] Lymphocytes/100 WBC Auto (Bl d)Ordered By: Philip Thompson on 11-17-2022 Lymphocytes/100 WBC (Bld) 17.1 % . [facility] MCH Auto (RBC) [Entitic mass ]Ordered By: Philip Thompson on 11-17-2022 MCH (RBC) [Entitic mass] 32.1 pg 24.7-34.3 [facility] MCHC Auto (RBC) [Mass/Vol]Or dered By: Philip Thompson on 11-17-2022 MCHC (RBC) [Mass/Vol] 33.2 g/dL 32.0-35.0 [facility] MCV Auto (RBC) [Entitic vol] Ordered By: Philip Thompson on 11-17-2022 MCV (RBC) [Entitic vol] 96.6 fL 80-100 [facility] Monocyte distribution width [Entitic volume] in Blood by AutomatedOrdered By: Philip Thompson on 11-17-2022 Monocyte distribution width Auto (Bld) [Entitic vol] 16.19 % 0.00-20.00 [facility] Monocytes Auto (Bld) [#/Vol] Ordered By: Philip Thompson on 11-17-2022 Monocytes (Bld) [#/Vol] 0.5 10*3/uL 0.0-0.8 [facility] Monocytes/100 WBC Auto (Bld) Ordered By: Philip Thompson on 11-17-2022 Monocytes/100 WBC (Bld) 7.8 % . [facility] Natriuretic peptide B [Mass/ Vol]Ordered By: Philip Thompson on 11-17-2022 Natriuretic peptide B (Bld) [Mass/Vol] 249.0 pg/mL 5-100 [facility] Neutrophils Auto (Bld) [#/Vo l]Ordered By: Philip Thompson on 11-17-2022 Neutrophils (Bld) [#/Vol] 4.3 10*3/uL 1.8-7.7 [facility] Neutrophils/100 WBC Auto (Bl d)Ordered By: Philip Thompson on 11-17-2022 Neutrophils/100 WBC (Bld) 73.5 % . [facility] No Panel InformationOrdered By: Philip Thompson on 11-17-2022 Estimated GFR (CKD-EPI) 47.298 mL/Min [facility] Creatinine Clearance (Chem 34.38 [facility] Nucleated erythrocytes [Pres ence] in Blood by Automated countOrdered By: Philip Thompson on 11-17-2022 Nucleated RBC Auto Ql (Bld) 0.2 /100{WBC} 0-0.5 [facility] Partial Thromboplastin Timeo n 11-17-2022 aPTT Coag (Bld) [Time] 46.9 s High 25.1-36.5 [facility] Comment on above: Result Comment: PERF ORMED BY: [facility] [address] [address] PATHOLOGIST RETAIL LOSS PREVENTION 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 Performed By: #### P TT, BMP, HS TROP, CK, CBC, BNP, PT ####[facility] [id number] Platelet mean volume Auto (B ld) [Entitic vol]Ordered By: Philip Thompson on 11-17-2022 Platelet mean volume (Bld) [Entitic vol] 7.7 fL 6.3-10.7 [facility] Platelet poor plasma interna tional normalized ratio (INR) by coagulation assay (relatOrdered By: Philip Thompson on 11-17-2022 INR Coag (PPP) [Relative time] 3.7 {INR} [facility] Comment on above: INR Therapeutic Rang [...] 11-17-2022 Platelets (Bld) [#/Vol] 220 10*3/uL 150-450 [facility] Potassium [Moles/volume] in Serum or PlasmaOrdered By: Philip Thompson on 11-17-2022 Potassium [Moles/Vol] 4.0 mmol/L 3.5-5.1 [facility] Prothrombin Time INRon 11-17 INR Coag (PPP) [Relative time] 3.7 {INR} Normal [facility] Comment on above: Result Comment: INR Therapeutic [...] 3 - 4.5 Performed By: #### P TT, BMP, HS TROP, CK, CBC, BNP, PT ####[place] [id number] [place] [id number] [facility] PT Coag (PPP) [Time] 42.9 s High 9.0-12.9 [facility] Comment on above: Performed By: #### P TT, BMP, HS TROP, CK, CBC, BNP, PT ####[place] [id number] [place] [id number] [facility] RBC Auto (Bld) [#/Vol]Ordere d By: Philip Thompson on 11-17-2022 RBC (Bld) [#/Vol] 4.62 10*6/uL 3.60-5.00 [facility] Serum or plasma anion gap de terminationOrdered By: Philip Thompson on 11-17-2022 Anion gap [Moles/Vol] 12.5 mmol/L 6.0-15.0 [facility] Sodium [Moles/volume] in Ser um or PlasmaOrdered By: Philip Thompson on 11-17-2022 Sodium [Moles/Vol] 130 mmol/L 136-145 [facility] Troponin I High Sensitivityo n 11-17-2022 Troponin I High Sensitivity 16.9 pg/mL High 0.0-15.0 [facility] Comment on above: Result Comment: PERF ORMED BY: [facility] [address] [place] [address] PATHOLOGIST RETAIL LOSS PREVENTION 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 Performed By: #### P TT, BMP, HS TROP, CK, CBC, BNP, PT ####[place] [id number] [place] [id number] [facility] Troponin I.cardiac [Mass/vol ume] in Serum or Plasma by Detection limit <= 0.01 ng/Ordered By: Philip Thompson on 11-17-2022 Troponin I.cardiac DL <= 0.01 ng/mL [Mass/Vol] 16.9 pg/mL 0.0-15.0 [facility] Urea nitrogen [Mass/volume] in Serum or PlasmaOrdered By: Philip Thompson on 11-17-2022 Urea nitrogen [Mass/Vol] 19 mg/dL 7-25 [facility] WBC Auto (Bld) [#/Vol]Ordere d By: Philip Thompson on 11-17-2022 WBC (Bld) [#/Vol] 5.8 10*3/uL 3.8-11.6 [facility] XR chest 1V portableon 11-17 XR chest 1V portable [facility] Main [place] [address] [place] [address] XRay Report Signed Patient: Erin Canales MR#: [id number] : 1935 Acct:[id number] Age/Sex: 87 / F ADM Date: 11/17/22 Loc: ER Room: Type: [facility] ER Attending Dr: Copies to: Philip [...] Jag Arnold M.D.11/17/2022 8:08 PM Dictation Location: [place] [address] Transcribed By: [facility] 11/17/222007 Dictated By: Jag Arnold DO 11/17/221946 Signed By: 11/17/222007 Normal [facility] Tobacco Screening.on 023 Tobacco use status CPHS b) No -[facility] lk 600 DO Work Phone: Activated partial thrombopla stin time (aPTT) in platelet poor plasma by coagulation aOrdered By: Pearl Michel on 09-25-2022 aPTT Coag (PPP) [Time] 37.0 s 25.1-36.5 [facility] Coagulation Profileon 2022 aPTT Coag (Bld) [Time] 37.0 s High 25.1-36.5 [facility] Comment on above: Result Comment: PERF ORMED BY: [place] [address] PATHOLOGIST RETAIL LOSS PREVENTION 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 Performed By: #### P T #### [address] INR Coag (PPP) [Relative time] 1.5 {INR} Normal [facility] Comment on above: Result Comment: INR Therapeutic [...] 4.5 Performed By: #### P T #### [address] PT Coag (PPP) [Time] 16.9 s High 9.0-12.9 [facility] Comment on above: Performed By: #### P T #### [address] ECG 12 lead ECGon 09-25-2022 ECG 12 lead ECG [facility] [place] [address] Electrocardiograph Report Signed Patient: Erin Canales MR#: [id number] : 1935 Acct:[id number] Age/Sex: 87 / F ADM Date: 09/25/22 Loc: Room: Type: [facility] Attending Dr: Pearl Michel DO Ordering Provider: [...] By Kirk Estevez DO 09/26 1838 Normal [facility] Laboratory - CoagulationOrde red By: Pearl Michel on 09-25-2022 PT Coag (PPP) [Time] 16.9 s 9.0-12.9 [place] No Panel Informationon 09-25 37.0\S\37.0 above high threshold 25.1-36.5 [facility] [employer] Center[facility] [employer] 250 DO Work Phone: Comment on above: PERFORMED BY:[address] [place], [place] [id number] MEDICAL DIRECTORGIULIA VALERIO M.D. 1.5\S\1.5 Normal [facility] [employer] 250 DO Work Phone: Comment on above: [...] - 4.5 16.9\S\16.9 above high threshold 9.0-12.9 [employer] 250 DO Work Phone: Platelet poor plasma interna tional normalized ratio (INR) by coagulation assay (relatOrdered By: Pearl Michel on 09-25-2022 INR Coag (PPP) [Relative time] 1.5 {INR} [facility] Comment on above: INR Therapeutic Rang [...] aPTT Coag (PPP) [Time] 48.7 s 25.1-36.5 [facility] Basophils Auto (Bld) [#/Vol] Ordered By: Pearl Michel on 09-22-2022 Basophils (Bld) [#/Vol] 0.1 10*3/uL 0.0-0.2 [facility] Basophils/100 WBC Auto (Bld) Ordered By: Pearl Michel on 09-22-2022 Basophils/100 WBC (Bld) 0.9 % . [facility] Blood Urea Nitrogenon 2022 Urea nitrogen [Mass/Vol] 44 mg/dL High 7-25 [facility] Comment on above: Performed By: #### B MP #### [address] Carbon dioxide, total [Moles /volume] in Serum or PlasmaOrdered By: Pearl Michel on 09-22-2022 CO2 [Moles/Vol] 26.2 mmol/L 21.0-31.0 [facility] Chloride [Moles/volume] in S payal or PlasmaOrdered By: Pearl Michel on 09-22-2022 Chloride [Moles/Vol] 109 mmol/L 98-107 [place] Cholesterol [Mass/volume] in Serum or PlasmaOrdered By: Pearl Michel on 09-22-2022 Cholesterol [Mass/Vol] 163 mg/dL 140-200 [facility] Comment on above: Chol less than 200 m g/dl low riskChol 201-239 mg/dl borderline riskChol 240 mg/dl and greater high risk Cholesterol in LDL Calc [Mas s/Vol]Ordered By: Pearl Michel on 09-22-2022 Cholesterol in LDL [Mass/Vol] 90 mg/dL 0-100 [facility] Comment on above: LDL ATP III CLASSIFI CATIONLDL less than 100 mg/dL OptimalLDL 100-129 mg/dL Near or above optimalLDL 130-159 mg/dL Borderline highLDL 160-189 mg/dL HighLDL greater than 189 mg/dL Very high Cholesterol in VLDL Calc [Ma ss/Vol]Ordered By: Pearl Michel on 09-22-2022 Cholesterol in VLDL [Mass/Vol] 27 mg/dL [facility] Coagulation Profileon 2022 aPTT Coag (Bld) [Time] 48.7 s High 25.1-36.5 [facility] Comment on above: Result Comment: PERF ORMED BY: [place] [address] PATHOLOGIST RETAIL LOSS PREVENTION 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 Performed By: #### B MP #### [address] INR Coag (PPP) [Relative time] 3.6 {INR} Normal [facility] Comment on above: Result Comment: INR Therapeutic [...] 3 - 4.5 Performed By: #### B MP #### [address] PT Coag (PPP) [Time] 41.6 s High 9.0-12.9 [facility] Comment on above: Performed By: #### B MP #### [address] Complete Blood Count Auto Di ffon 09-22-2022 Basophils (Bld) [#/Vol] 0.1 10*3/uL Normal 0.0-0.2 [facility] Comment on above: Result Comment: PERF ORMED BY: [place] [id number] PATHOLOGIST RETAIL LOSS PREVENTION 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 Performed By: #### B MP #### [address] Basophils/100 WBC (Bld) 0.9 % Normal . [facility] Comment on above: Performed By: #### B MP #### [place] [address] [place] Eosinophils (Bld) [#/Vol] 0.1 10*3/uL Normal 0.0-0.45 [facility] Comment on above: Performed By: #### B MP #### [address] Eosinophils/100 WBC (Bld) 1.8 % Normal . [facility] Comment on above: Performed By: #### B MP #### [address] Erythrocyte distribution width (RBC) [Ratio] 16.1 % High 11.9-15.3 [facility] Comment on above: Performed By: #### B MP #### [address] Hematocrit (Bld) [Volume fraction] 39.0 % Normal 34.0-46.4 [facility] Comment on above: Performed By: #### B MP #### [address] Hemoglobin (Bld) [Mass/Vol] 12.8 g/dL Normal 11.8-15.4 [facility] Comment on above: Performed By: #### B MP #### [place] [address] [place] Lymphocytes (Bld) [#/Vol] 1.3 10*3/uL Normal 1.00-4.8 [facility] Comment on above: Performed By: #### B MP #### [address] Lymphocytes/100 WBC (Bld) 21.7 % Normal . [facility] Comment on above: Performed By: #### B MP #### [address] MCH (RBC) [Entitic mass] 31.4 pg Normal 24.7-34.3 [facility] Comment on above: Performed By: #### B MP #### [address] MCV (RBC) [Entitic vol] 95.5 fL Normal 80-100 [facility] Comment on above: Performed By: #### B MP #### [address] Mean Corpuscular HGB Conc 32.9 g/dL Normal 32.0-35.0 [facility] Comment on above: Performed By: #### B MP #### [address] Monocytes (Bld) [#/Vol] 0.5 10*3/uL Normal 0.0-0.8 [facility] Comment on above: Performed By: #### B MP #### [address] Monocytes/100 WBC (Bld) 8.4 % Normal . [facility] Comment on above: Performed By: #### B MP #### [address] Neutrophils (Bld) [#/Vol] 4.2 10*3/uL Normal 1.8-7.7 [facility] Comment on above: Performed By: #### B MP #### [address] Neutrophils/100 WBC (Bld) 67.2 % Normal . [facility] Comment on above: Performed By: #### B MP #### [address] NRBC% 0.1 /100{WBC} Normal 0-0.5 [facility] Comment on above: Performed By: #### B MP #### [address] Platelet mean volume (Bld) [Entitic vol] 8.6 fL Normal 6.3-10.7 [facility] Comment on above: Performed By: #### B MP #### [address] Platelets (Bld) [#/Vol] 180 10*3/uL Normal 150-450 [facility] Comment on above: Performed By: #### B MP #### [address] RBC (Bld) [#/Vol] 4.09 10*6/uL Normal 3.60-5.00 [facility] Comment on above: Performed By: #### B MP #### [address] WBC (Bld) [#/Vol] 6.2 10*3/uL Normal 3.8-11.6 [facility] Comment on above: Performed By: #### B MP #### [address] Creatinineon 09-22-2022 Creatinine [Mass/Vol] 1.16 mg/dL Normal 0.60-1.20 [facility] Comment on above: Performed By: #### B MP #### [address] GFR/1.73 sq M.predicted MDRD (S/P/Bld) [Vol rate/Area] 45.347 mL/min/{1.73_m2} Normal [facility] Comment on above: Performed By: #### B MP #### [address] Creatinine [Mass/volume] in Serum or PlasmaOrdered By: Pearl Michel on 09-22-2022 Creatinine [Mass/Vol] 1.16 mg/dL 0.60-1.20 [facility] ECG 12 lead ECGon 09-22-2022 ECG 12 lead ECG [facility] Main [place] [address] [place] [address] Electrocardiograph Report Signed Patient: Erin Canales MR#: [id number] : 1935 Acct:[id number] Age/Sex: 87 / F ADM Date: 09/22/22 Loc: PS Room: Type: [facility] Attending Dr: Pearl Michel DO Ordering Provider: Pearl Michel DO Date of Service: 09/22/22 ECG/ECG 12 lead ECG: [facility] Copies to: Test Reason : Blood Pressure [...] QT has lengthened Confirmed by SHER LUNA [facility] [place]ILIP ([id number]) on 09/22/2022 11:19:52 PM Referred By: ANAND Electronically Signed By:PHILIP OLIVAREZ MD [facility] Transcribed By: [facility] Signed By Akhil Olivarez MD 09/22/22 6304 Normal [facility] Electrolyteson 09-22-2022 Anion gap [Moles/Vol] 11.4 mmol/L Normal 6.0-15.0 [facility] Comment on above: Performed By: #### B MP #### [facility] [address] [place] [address] [place] Chloride [Moles/Vol] 109 mmol/L High 98-107 [facility] Comment on above: Performed By: #### B MP #### [facility] [address] [place] [address] [place] CO2 [Moles/Vol] 26.2 mmol/L Normal 21.0-31.0 [facility] Comment on above: Performed By: #### B MP #### [facility] [address] [place] [address] [place] Potassium [Moles/Vol] 4.6 mmol/L Normal 3.5-5.1 [facility] Comment on above: Performed By: #### B MP #### [facility] [address] Sodium [Moles/Vol] 142 mmol/L Normal 136-145 [facility] Comment on above: Performed By: #### B MP #### [facility] [facility] [address] Eosinophils Auto (Bld) [#/Vo l]Ordered By: Pearl Michel on 09-22-2022 Eosinophils (Bld) [#/Vol] 0.1 10*3/uL 0.0-0.45 [facility] Eosinophils/100 WBC Auto (Bl d)Ordered By: Pearl Michel on 09-22-2022 Eosinophils/100 WBC (Bld) 1.8 % . [facility] Erythrocyte distribution wid th Auto (RBC) [Ratio]Ordered By: Pearl Michel on 09-22-2022 Erythrocyte distribution width (RBC) [Ratio] 16.1 % 11.9-15.3 [facility] Hematocrit Auto (Bld) [Volum e fraction]Ordered By: Pearl Michel on 09-22-2022 Hematocrit (Bld) [Volume fraction] 39.0 % 34.0-46.4 [facility] Hemoglobin [Mass/volume] in BloodOrdered By: Pearl Michel on 09-22-2022 Hemoglobin (Bld) [Mass/Vol] 12.8 g/dL 11.8-15.4 [facility] Laboratory - Chemistry and C hemistry - challengeon 09-22-2022 Cholesterol [Mass/Vol] 163\S\163 Normal 140-200 [facility] Work Phone: Comment on above: Chol less than 200 m g/dl low risk Chol 201-239 mg/dl borderline risk Chol 240 mg/dl and greater high risk Cholesterol in LDL [Mass/Vol] 90\S\90 Normal 0-100 [facility] ayde 250 DO Work Phone: Comment on above: LDL ATP III CLASSIFI CATION LDL less than 100 mg/dL Optimal LDL 100-129 mg/dL Near or above optimal LDL 130-159 mg/dL Borderline high LDL 160-189 mg/dL High LDL greater than 189 mg/dL Very high Laboratory - CoagulationOrde red By: Pearl Michel on 09-22-2022 PT Coag (PPP) [Time] 41.6 s 9.0-12.9 [place] Leukocytes [#/volume] correc basim for nucleated erythrocytes in Blood by Automated counOrdered By: Pearl Michel on 09-22-2022 WBC corrected for nucl RBC Auto (Bld) [#/Vol] 6.2 10*3/uL 3.8-11.6 [facility] Lipid Panelon 09-22-2022 Cholesterol [Mass/Vol] 163 mg/dL Normal 140-200 [facility] Comment on above: Result Comment: Chol less than 200 mg/dl low risk Chol 201-239 mg/dl borderline risk Chol 240 mg/dl and greater high risk Performed By: #### C BC #### [facility] [address] Cholesterol in HDL [Mass/Vol] 46 mg/dL Normal 23-92 [facility] Comment on above: Result Comment: HDL CHOL ATP-III CLASSIFICATION Cardiovascular Risk HDL > or equal to 60 mg/dL LOW HDL < 40 mg/dL HIGH Performed By: #### C BC #### [facility] [address] Cholesterol.total/Chol esterol in HDL [Mass ratio] 3.5 {ratio} Normal <5.0 [facility] Comment on above: Result Comment: PERF ORMED BY: [place] [address] PATHOLOGIST RETAIL LOSS PREVENTION 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 Performed By: #### C BC #### [facility] [address] LDL Cholesterol,Calculated 90 mg/dL Normal 0-100 [facility] Comment on above: Result Comment: LDL ATP III CLASSIFICATION LDL less than 100 mg/dL Optimal LDL 100-129 mg/dL Near or above optimal LDL 130-159 mg/dL Borderline high LDL 160-189 mg/dL High LDL greater than 189 mg/dL Very high Performed By: #### C BC #### [facility] [address] Triglyceride w/Reflex 137 mg/dL Normal 0-149 [facility] Comment on above: Result Comment: TRIG ATP III CLASSIFICATION TRIG less than 150 mg/dL Normal TRIG 150-199 mg/dL Borderline high TRIG 200-500 mg/dL High TRIG greater than 500 mg/dL Very high Standard traceable to the Center for Disease Conrtrol and Prevention (CDC) test method. Performed By: #### C BC #### [facility] [address] VLDL CHOLESTEROL 27 mg/dL Normal [facility] Comment on above: Performed By: #### C BC #### [facility] [address] Lymphocytes Auto (Bld) [#/Vo l]Ordered By: Pearl Michel on 09-22-2022 Lymphocytes (Bld) [#/Vol] 1.3 10*3/uL 1.00-4.8 [facility] Lymphocytes/100 WBC Auto (Bl d)Ordered By: Pearl Michel on 09-22-2022 Lymphocytes/100 WBC (Bld) 21.7 % . [facility] MCH Auto (RBC) [Entitic mass ]Ordered By: Pearl Michel on 09-22-2022 MCH (RBC) [Entitic mass] 31.4 pg 24.7-34.3 [facility] MCHC Auto (RBC) [Mass/Vol]Or dered By: Pearl Michel on 09-22-2022 MCHC (RBC) [Mass/Vol] 32.9 g/dL 32.0-35.0 [facility] MCV Auto (RBC) [Entitic vol] Ordered By: Pearl Michel on 09-22-2022 MCV (RBC) [Entitic vol] 95.5 fL 80-100 [facility] Monocytes Auto (Bld) [#/Vol] Ordered By: Pearl Michel on 09-22-2022 Monocytes (Bld) [#/Vol] 0.5 10*3/uL 0.0-0.8 [facility] Monocytes/100 WBC Auto (Bld) Ordered By: Pearl Michel on 09-22-2022 Monocytes/100 WBC (Bld) 8.4 % . [facility] Neutrophils Auto (Bld) [#/Vo l]Ordered By: Pearl Michel on 09-22-2022 Neutrophils (Bld) [#/Vol] 4.2 10*3/uL 1.8-7.7 [facility] Neutrophils/100 WBC Auto (Bl d)Ordered By: Pearl Michel on 09-22-2022 Neutrophils/100 WBC (Bld) 67.2 % . [facility] No Panel InformationOrdered By: Pearl Michel on 09-22-2022 Estimated GFR (CKD-EPI) 45.347 mL/Min [facility] Creatinine Clearance (Chem N/A [facility] No Panel Informationon 09-22 0.1\S\0.1 Normal 0-0.5 [facility] ayde 250 DO Work Phone: Comment on above: PERFORMED BY:[place] [address] [place] [place] [phone] MEDICAL DIRECTORGIULIA VALERIO M.D. 0.5\S\0.5 Normal 0.0-0.8 [facility] ayde 250 DO Work Phone: [phone] 1.3\S\1.3 Normal 1.00-4.8 [facility] 250 DO Work Phone: 4.2\S\4.2 Normal 1.8-7.7 [facility] 250 DO Work Phone: [phone] 0.9\S\0.9 Normal . [facility] 250 DO Work Phone: [phone] 1.8\S\1.8 Normal . [facility] 250 DO Work Phone: [phone] 8.4\S\8.4 Normal . [facility] 250 DO Work Phone: [phone] 21.7\S\21.7 Normal . [facility] 250 DO Work Phone: 67.2\S\67.2 Normal . [facility] 250 DO Work Phone: [phone] 8.6\S\8.6 Normal 6.3-10.7 [facility] 250 DO Work Phone: [phone] 180\S\180 Normal 150-450 [facility] 250 DO Work Phone: [phone] 16.1\S\16.1 above high threshold 11.9-15.3 [facility] 250 DO Work Phone: [phone] 32.9\S\32.9 Normal 32.0-35.0 [facility] 250 DO Work Phone: [phone] 31.4\S\31.4 Normal 24.7-34.3 [facility] 250 DO Work Phone: [phone] 95.5\S\95.5 Normal 80-100 [facility] 250 DO Work Phone: [phone] 39.0\S\39.0 Normal 34.0-46.4 [facility] 250 DO Work Phone: [phone] 12.8\S\12.8 Normal 11.8-15.4 [facility] 250 DO Work Phone: [phone] 4.09\S\4.09 Normal 3.60-5.00 [facility] 250 DO Work Phone: [phone] 6.2\S\6.2 Normal 3.8-11.6 [facility] 250 DO Work Phone: [phone] 48.7\S\48.7 above high threshold 25.1-36.5 [facility] ayed 250 DO Work Phone: [phone] Comment on above: PERFORMED BY:[place] [address] [address] [place] [id number] MEDICAL DIRECTORGIULIA VALERIO M.D. 3.6\S\3.6 Normal -[facility] 250 DO Work Phone: Comment on above: [...] - 4.5 41.6\S\41.6 above high threshold 9.0-12.9 -[facility] 250 DO Work Phone: 11.4\S\11.4 Normal 6.0-15.0 [facility] 250 DO Work Phone: [phone] 26.2\S\26.2 Normal 21.0-31.0 [facility] 250 DO Work Phone: 109\S\109 above high threshold 98-107 [facility] 250 DO Work Phone: [phone] 4.6\S\4.6 Normal 3.5-5.1 [facility] 250 DO Work Phone: 142\S\142 Normal 136-145 [facility] ayde 250 DO Work Phone: 44\S\44 above high threshold 7-25 [facility] ayde 250 DO Work Phone: [phone] 45.347\S\45.347 Normal [facility] ayde 250 DO Work Phone: [phone] 1.16\S\1.16 Normal 0.60-1.20 [facility] 250 DO Work Phone: [phone] 3.5\S\3.5 Normal <5.0 [facility]am[employer] ayde 250 DO Work Phone: Comment on above: PERFORMED BY:[facility] [place] [place], [place] [id number] MEDICAL DIRECTORGIULIA VALERIO M.D. 27\S\27 Normal [facility] [employer] 250 DO Work Phone: 137\S\137 Normal 0-149 [facility] 250 DO Work Phone: Comment on above: TRIG ATP III CLASSIF ICATION TRIG less than 150 mg/dL Normal TRIG 150-199 mg/dL Borderline high TRIG 200-500 mg/dL High TRIG greater than 500 mg/dL Very high Standard traceable to the Center for Disease Conrtrol and Prevention (CDC) test method. 46\S\46 Normal 23-92 [facility] [employer] 250 DO Work Phone: Comment on above: HDL CHOL ATP-III CLA SSIFICATION Cardiovascular Risk HDL > or equal to 60 mg/dL LOW HDL < 40 mg/dL HIGH Nucleated erythrocytes [Pres ence] in Blood by Automated countOrdered By: Pearl Michel on 09-22-2022 Nucleated RBC Auto Ql (Bld) 0.1 /100{WBC} 0-0.5 [facility] Platelet mean volume Auto (B ld) [Entitic vol]Ordered By: Pearl Michel on 09-22-2022 Platelet mean volume (Bld) [Entitic vol] 8.6 fL 6.3-10.7 [facility] Platelet poor plasma interna tional normalized ratio (INR) by coagulation assay (relatOrdered By: Pearl Michel on 09-22-2022 INR Coag (PPP) [Relative time] 3.6 {INR} [facility] Comment on above: INR Therapeutic Rang [...] 09-22-2022 Platelets (Bld) [#/Vol] 180 10*3/uL 150-450 [facility] Potassium [Moles/volume] in Serum or PlasmaOrdered By: Pearl Michel on 09-22-2022 Potassium [Moles/Vol] 4.6 mmol/L 3.5-5.1 [facility] RBC Auto (Bld) [#/Vol]Ordere d By: Pearl Michel on 09-22-2022 RBC (Bld) [#/Vol] 4.09 10*6/uL 3.60-5.00 [facility] Serum or plasma anion gap de terminationOrdered By: Pearl Michel on 09-22-2022 Anion gap [Moles/Vol] 11.4 mmol/L 6.0-15.0 [facility] Serum or plasma high density lipoprotein (HDL) cholesterol measurementOrdered By: Pearl Michel on 09-22-2022 Cholesterol in HDL [Mass/Vol] 46 mg/dL 23-92 [facility] Comment on above: HDL CHOL ATP-III CLA SSIFICATION Cardiovascular RiskHDL > or equal to 60 mg/dL LOWHDL < 40 mg/dL HIGH Serum or plasma total choles terol/high density lipoprotein (HDL) cholesterol mass ratOrdered By: Pearl Michel on 09-22-2022 Cholesterol.total/Chol esterol in HDL [Mass ratio] 3.5 {ratio} <5.0 [facility] Sodium [Moles/volume] in Ser um or PlasmaOrdered By: Pearl Michel on 09-22-2022 Sodium [Moles/Vol] 142 mmol/L 136-145 [facility] Triglyceride [Mass/volume] i n Serum or PlasmaOrdered By: Pearl Michel on 09-22-2022 Triglyceride [Mass/Vol] 137 mg/dL 0-149 [facility] Comment on above: TRIG ATP III CLASSIF ICATIONTRIG less than 150 mg/dL NormalTRIG 150-199 mg/dL Borderline highTRIG 200-500 mg/dL High TRIG greater than 500 mg/dL Very highStandard traceable to the Center for Disease Conrtrol and Prevention (CDC) test method. Urea nitrogen [Mass/volume] in Serum or PlasmaOrdered By: Pearl Michel on 09-22-2022 Urea nitrogen [Mass/Vol] 44 mg/dL 7 [facility] WBC Auto (Bld) [#/Vol]Ordere d By: Pearl Michel on 09-22-2022 WBC (Bld) [#/Vol] 6.2 10*3/uL 3.8-11.6 [facility] Tobacco Screening.on 023 Fall risk assessment b) One or more fall s in the last year [facility] [employer] 250 DO Work Phone: Tobacco use status CPHS b) No [facility] 250 DO Work Phone: [facility] CARDIAC STRESS/REST INJE CTIONon 09-14-2022 [facility] CARDIAC STRESS/REST INJECTION Patient Name: ERIN CANALES STUDY: MYOCARDIAL PERFUSION STRESS TEST WITH LEXISCAN Performing facility: [facility], [address] [place] [address], [address] Provider: Wili Olivarez MD, [facility] PCP: Dr. Ashley Chaudhary Supervising provider: Bg Nation MD, [facility] INDICATION: Angina pectoris CAD; HISTORY: Gender: F; Age: 87 y/o ; Height: 0 cm; Weight: 0 kg. Abnormal EKG; CAD; High Cholesterol; Family HX CAD; Arrhythmias; HTN; Chest Pain; SOB; Denies smoking. Cardiac catheterization on 2009. PTCA on 2009. COMPARISON: Previous nuclear testing completed [id number] at [facility]. ACCESSION NUMBER(S): [id number]; [id number]; [id number] ORDERING CLINICIAN: AKHIL OLIVAREZ TECHNIQUE: ONE DAY [...] Electronically signed by: BG NATION MD Normal [facility] No Panel Informationon 09-14 Please click on the link to view the study images Normal [facility] [employer] 600 DO Work Phone: Normal [facility] [employer] ayde 250 DO Work Phone: Tobacco Screening.on 023 Adult depression screening assessment No [facility] ayde 250 DO Work Phone: Fall risk assessment b) One or more fall s in the last year [facility] [employer] ayde 250 DO Work Phone: Tobacco use status CPHS b) No [facility] ayde 250 DO Work Phone: CNPNon 08-29-2022 CNPN Telephone (PLASMN) -- UZAIRERIN ([id number]) 1935 F Date Time Provider Department 08/29/22 SHWETA SOL During your visit today, we recorded the following information about you: Perry Zhang 08/29/2022 12:14 PM Signed Patient's daughter called with surgery questions and would like to speak with someone regarding anesthesia. Was not at appointment with mother when surgery was discussed. [phone] - Betty Canales (daughter) Geeta Archer RN 08/29/2022 12:56 PM Signed Returned call to patient's daughter. She was asking if the weight could be placed under local, explained that it could. The other options will require general and clearance from her supervisor [employer] strip [employer]. Allergies As of Date: 08/29/2022 Noted Allergy Reaction MOTRIN (IBUPROFEN) 10/29/2012 16 - Unknown [id number] REDUCTASE INHIBIT*08/25/2022 14 - Other: See Comments Comments: Cannot walk when she takes it Date Reviewed: 08/25/2022 Reviewed by: Thuy Rboles MA - Fully Assessed Reason for Visit: Patient Question [7145] Prescriptions as of 08/29/2022 - torsemide (DEMADEX) [...] Status:Closed by PERRY ZHANG on 08/29/22 Normal [facility] CNOVon 08-25-2022 CNOV Office Visit ([facility] ) -- ERIN CANALES ([id number]) 1935 F Date Time Provider Department 08/25/22 2:00 PM SHWEAT SOL [facility] During your visit today, we recorded the following information about you: Temperature Pulse Blood pressure Weight 97.7 degrees 54/minute 113/48 83.8 kg Shweta Sol MD 08/25/2022 3:28 PM Signed CC: 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 This developed [...] Histories independentl (more content not included)... Normal [facility] Office Visit (Cardiology)on 08-02-2022 Follow-up visit Diagnoses/Problems Assessed Shortness of breath on exertion (786.05) (R06.02) Reported worsening over June 2022 Significant improvement with initiation of long-acting nitrate Arteriosclerosis of coronary artery (414.00) (I25.10) February 2010 mLAD PCI/COLBY mDiag PCI/COLBY OM3 PCI/COLBY RCA BAGGAGE SMASHER L>R bridging collaterals CX mild Paroxysmal atrial [...] in adult Healthy Weight Tips; Status:Complete; Done: [id number] Patient Instructions Please bring all medicines, vitamins, [...] 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 Normal [facility] Tobacco Screening.on 023 Tobacco use status CPHS b) No -[facility] [employer] ayde 250 DO Work Phone: CBC AUTO DIFFon 08-01-2022 BASO # 0.1 103/ul Normal 0.0-0.1 [facility] Comment on above: Performed By: #### C BC #### [facility] [address] [place] [address] Dr. Parth Wilson Basophils/100 WBC (Bld) 0.9 % Normal 0.2-2.0 [facility] Comment on above: Performed By: #### C BC #### [facility] [address] [address] [address] Parth Wilson EO # 0.1 103/ul Normal 0.0-0.7 [facility] Comment on above: Performed By: #### C BC #### [facility] [address] [address] [address] Parth Wilson Eosinophils/100 WBC (Bld) 1.6 % Normal 0.9-7.0 [facility] Comment on above: Performed By: #### C BC #### [facility] [address] [place] [address] Dr. Parth Wilson Erythrocyte distribution width (RBC) [Ratio] 14.7 % Normal 11.0-15.0 [facility] Comment on above: Performed By: #### C BC #### [facility] [address] [place] [address] Dr. Parth Wilson Hematocrit (Bld) [Volume fraction] 41.0 % Normal 36.0-48.0 [facility] Comment on above: Performed By: #### C BC #### [facility] [address] [place] [address] Dr. Parth Wilson Hemoglobin (Bld) [Mass/Vol] 12.8 g/dL Normal 12.0-16.0 [facility] Comment on above: Performed By: #### C BC #### [facility] [address] [place] [address] Dr. Parth Wilson IG # 0.02 10e3/ul Normal 0.00-0.03 [facility] Comment on above: Performed By: #### C BC #### [facility] [address] [place] [address] Dr. Parth Wilson IG % 0.4 % Normal 0.0-0.5 [facility] Comment on above: Performed By: #### C BC #### [facility] [address] [place] [address] Dr. Parth Wilson LYMPH # 1.6 103/ul Normal 1.2-3.8 [facility] Comment on above: Performed By: #### C BC #### [facility] [address] [place] [address] Dr. Parth Wilson Lymphocytes/100 WBC (Bld) 29.2 % Normal 20.5-60.0 [facility] Comment on above: Performed By: #### C BC #### [facility] [address] [place] [address] Dr. Parth Wilson MANUAL DIFF REQ NO Normal [facility] Comment on above: Performed By: #### C BC #### [facility] [address] [place] [address] Dr. Parth Wilson MCH (RBC) [Entitic mass] 30.8 pg Normal 26.7-34.0 [facility] Comment on above: Performed By: #### C BC #### [facility] [address] [place] [address] Dr. Parth Wilson MCHC (RBC) [Mass/Vol] 31.2 g/dL Normal 29.9-35.2 [facility] Comment on above: Performed By: #### C BC #### [facility] [address] [place] [address] Dr. Patrh Wilson MCV (RBC) [Entitic vol] 98.8 fL Normal 81.0-99.0 [facility] Comment on above: Performed By: #### C BC #### [facility] [address] [place] [address] Dr. Parth Wilson MONO # 0.5 103/ul Normal 0.3-0.8 [facility] Comment on above: Performed By: #### C BC #### [facility] [address] [place] [address] Dr. Parth Wilson Monocytes/100 WBC (Bld) 9.5 % Normal 1.7-12.0 [facility] Comment on above: Performed By: #### C BC #### [facility] [address] [place] [address] Dr. Parth Wilson NEUT # 3.3 103/ul Normal 1.4-6.5 [facility] Comment on above: Performed By: #### C BC #### [facility] [address] [place] [address] Dr. Parth Wilson Neutrophils/100 WBC (Bld) 58.4 % Normal 43.0-75.0 [facility] Comment on above: Performed By: #### C BC #### [facility] [address] [place] [address] Dr. Parth Wilson Platelet mean volume (Bld) [Entitic vol] 9.9 fL Normal 9.5-13.5 [facility] Comment on above: Performed By: #### C BC #### [facility] [address] [place] [address] Dr. Parth Wilson PLT 213 103/ul Normal 150-450 [facility] Comment on above: Performed By: #### C BC #### [facility] [address] [place], [place] [address] Dr. Parth Wilson RBC 4.15 106/ul Critically low 4.20-5.40 [facility] Comment on above: Performed By: #### C BC #### [facility] [address] [place], [place] [address] Dr. Parth Wilson WBC 5.6 103/ul Normal 4.0-11.0 [facility] Comment on above: Performed By: #### C BC #### [facility] [id number] Parth Wilson Office Visit (Cardiology)on 07-05-2022 [...] mLAD PCI/COLBY mDiag PCI/COLBY OM3 PCI/COLBY RCA BAGGAGE SMASHER L>R bridging collaterals CX mild Hyperlipidemia (272.4) [...] contact the office if new symptoms arise. 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 She did report that walking into [employer] last week was more difficult , she [...] patient is (more content not included)... Normal [facility] Tobacco Screening.on 023 Adult depression screening assessment No [facility] Yemeksepeti DO Work Phone: Fall risk assessment b) One or more fall s in the last year [facility] Yemeksepeti DO Work Phone: Tobacco use status CPHS b) No [facility] CenterPositron DO Work Phone: CALCIUMon 06-28-2022 Calcium [Mass/Vol] 9.4 mg/dL Normal 8.5-10.1 [facility] Comment on above: Performed By: #### SINDHU WARD #### [facility] [address] [address] [address] Parth Wilson CREATININEon 06-28-2022 Creatinine [Mass/Vol] 1.27 mg/dL Critically high 0.55-1.02 [facility] Comment on above: Performed By: #### SINDHU WARD #### [facility] [address] [place], [place] [address] Dr. Parth Wilson EGFR-AF MICRONESIAN 48 mL/min/1.73m2 Critically low >=60 [facility] Comment on above: Performed By: #### C ALBER, [place] #### [facility] [address] [place], [place] [address] Dr. Parth Wilson EGFR-NON AF MICRONESIAN 40 mL/min/1.73m2 Critically low >=60 [facility] Comment on above: Performed By: #### C ALBER, [place] #### [facility] [address] [place], [place] [address] Dr. Parth Wilson Aspartate aminotransferase [ Enzymatic activity/volume] in Serum or PlasmaOrdered By: Akhil Olivarez on 06-13-2022 AST [Catalytic activity/Vol] 26 U/L 10-42 [facility] Calcium [Mass/volume] in Ser um or PlasmaOrdered By: Akhil Olivarez on 06-13-2022 Calcium [Mass/Vol] 9.9 mg/dL 8.2-10.2 [facility] Carbon dioxide, total [Moles /volume] in Serum or PlasmaOrdered By: Akhil Olivarez on 06-13-2022 CO2 [Moles/Vol] 26.6 mmol/L 22.0-30.0 [facility] Chloride [Moles/volume] in S payal or PlasmaOrdered By: Akhil Olivarez on 06-13-2022 Chloride [Moles/Vol] 99 mmol/L 95-114 [place] Creatinine and Glomerular fi ltration rate.predicted panel (S/P/Bld)Ordered By: Akhil Olivarez on 06-13-2022 Creatinine [Mass/Vol] 1.17 mg/dL 0.44-1.03 [facility] Glucose [Mass/volume] in Ser um or PlasmaOrdered By: Akhil Olivarez on 06-13-2022 Glucose [Mass/Vol] 111 mg/dL 70-100 [facility] Comment on above: ADA recommended refe rence rangeRandom Glucose Reference Range is dependent on time and content of last meal. Glucose of more than 200 mg/dL in a nonstressed, ambulatory subject supports the diagnosis of Diabetes Mellitus. Laboratory - Chemistry and C hemistry - challengeOrdered By: Akhil Olivarez on 06-13-2022 GFR/1.73 sq M.predicted MDRD (S/P/Bld) [Vol rate/Area] 44.882 mL/min/{1.73_m2} [facility] No Panel InformationOrdered By: Akhil Olivarez on 06-13-2022 Pharmacy Creatinine Clearance (Chem N/A [facility] No Panel Informationon 06-13 3.34\S\3.34 Normal 0.45-5.33 [facility]de 250 DO Work Phone: Comment on above: PERFORMED BY:[address] [address] [place], [place] [phone] MEDICAL DIRECTORGIULIA VALERIO M.D. 26\S\26 Normal 10-42 [facility] 250 DO Work Phone: 9.9\S\9.9 Normal 8.2-10.2 [facility] 250 DO Work Phone: 16.1\S\16.1 above high threshold 6.0-15.0 [facility] 250 DO Work Phone: 26.6\S\26.6 Normal 22.0-30.0 [facility] 250 DO Work Phone: 99\S\99 Normal 95-114 [facility] 250 DO Work Phone: 4.7\S\4.7 Normal 3.5-5.1 [facility] 250 DO Work Phone: 137\S\137 Normal 136-146 [facility] 250 DO Work Phone: 1.17\S\1.17 above high threshold 0.44-1.03 [facility] 250 DO Work Phone: 35\S\35 above high threshold 9-23 [facility] ayde 250 DO Work Phone: 111\S\111 above high threshold 70-100 [facility] 250 DO Work Phone: Comment on above: Random Glucose Refer ence Range is dependent on time and content of last meal. Glucose of more than 200 mg/dL in a nonstressed, ambulatory subject supports the diagnosis of Diabetes Mellitus. ADA recommended reference range 44.882\S\44.882 Normal [facility] 250 DO Work Phone: Potassium [Moles/volume] in Serum or PlasmaOrdered By: Akhil Olivarez on 06-13-2022 Potassium [Moles/Vol] 4.7 mmol/L 3.5-5.1 [facility] Radiologyon 06-13-2022 XR Chest 2 Views Normal [facility] 250 DO Work Phone: Serum or plasma anion gap de terminationOrdered By: Akhil Olivarez on 06-13-2022 Anion gap [Moles/Vol] 16.1 mmol/L 6.0-15.0 [facility] Sodium [Moles/volume] in Ser um or PlasmaOrdered By: Akhil Olivarez on 06-13-2022 Sodium [Moles/Vol] 137 mmol/L 136-146 [facility] TSH DL <= 0.005 mIU/L QnOrde red By: Akhil Olivarez on 06-13-2022 TSH Qn 3.34 m[IU]/L 0.45-5.33 [facility] Urea nitrogen [Mass/volume] in Serum or PlasmaOrdered By: Akhil Olivarez on 06-13-2022 Urea nitrogen [Mass/Vol] 35 mg/dL 12-30 [facility] Covid-19 PCR (CVDTBH)on SARS-CoV-2 (COVID-19) RNA CIERA+probe Ql (Unsp spec) Detected Critically abnormal NOT DETECTED [facility] Comment on above: Result Comment: This test is not yet approved or cleared by the [place] FDA. When there are no FDA-approved or cleared tests available, and other criteria are met, FDA can make tests available under an emergency access mechanism called an Emergency Use Authorization (EUA). The EUA for this test is supported by the [place] of Health and Human Service's (HHS's) declaration [...] used). Performed By: #### C VDTB #### [facility] [address] [place] [address] Dr. Parth Wilson INFLUENZA A AND B AGon 03-10 [facility] SEE BELOW Normal [facility] Comment on above: Result Comment: Nega tive for Flu A protein angiten. Infection due to Flu A cannot be ruled out. Flu A angiten in the sample may be below the detection limit of the test. Performed By: #### I NFLUAB #### [facility] [address] [place] [address] Dr. Parth Wilson [facility] SEE BELOW Normal [facility] Comment on above: Result Comment: Nega tive for Flu B protein antigen. Infection due to Flu B cannot be ruled out. Flu B antigen in the sample may be below the detection limit of the test. Performed By: #### I NFLUAB #### [facility] [address] [place] [address] Dr. Parth Wilson INFLUENZA A AG Negative Normal NEGATIVE SEE COMMENT [facility] Comment on above: Performed By: #### I NFLUAB #### [facility] [address] [place] [address] Dr. Parth Wilson INFLUENZA B AG Negative Normal NEGATIVE SEE COMMENT [facility] Comment on above: Performed By: #### I NFLUAB #### [facility] [address] [place] [address] Dr. Parth Wilson INTERNAL CONTROLS Within Normal Limits Normal Wi thin Normal Limits [facility] Comment on above: Performed By: #### I NFLUAB #### [facility] [address] [address] [address] Parth Wilson Office Visit (Cardiology)on 02-07-2022 [...] TABLET DAILY DIRECTED. Vitamin D3 50 MCG (1999 UT) Oral CapsuleTAKE 1 CAPSULE Daily Warfarin Sodium 3 MG Oral TabletTAKE 1 TABLET DAILY DIRECTED. Managed at [facility]. Allergies Medication Beta Adrenergic Blockers Allergy; [...] Signs Recorded: 07Feb2022 10:11AM Heart Rate62, Apical Lzetykke287, RUE, Sitting Ottvecdtj35, RUE, Sitting Height5 ft 2 in Sebkfd605 lb BMI Kzwvviwasv65.84 kg/m2 BSA Calculated1.85 Tobacco Useb) No Falls Screening (Age 18+)b) One or more falls in the last year EKG done in office today Physical Exam Constitutional: alert and in no acute distress. Eyes: no erythema, swelling or discharge from the (more content not included)... Normal [facility] Tobacco Screening.on 022 Fall risk assessment b) One or more fall s in the [facility] DO Work Phone: Tobacco use status CP b) No [facility] 250 DO Work Phone: Activated partial thrombopla stin time (aPTT) in platelet poor plasma by coagulation aOrdered By: Myron Villarreal on 01-10-2022 aPTT Coag (PPP) [Time] 36.5 s 25.1-36.5 [facility] Albumin [Mass/volume] in Ser um or PlasmaOrdered By: Myron Villarreal on 01-10-2022 Albumin [Mass/Vol] 4.1 g/dL 3.2-5.5 [facility] Automated erythrocytes count in urine sediment (number/area)Ordered By: Myron Villarreal on 01-10-2022 RBC Auto (Urine sed) [#/Area] 0-1 [HPF] 0-4 [facility] Automated leukocytes count i n urine sediment (number/area)Ordered By: Myron Villarreal on 01-10-2022 WBC Auto (Urine sed) [#/Area] 50-100 [HPF] 0-4 [facility] Basophils Auto (Bld) [#/Vol] Ordered By: ELIAS ERNST on 01-10-2022 Basophils (Bld) [#/Vol] 0.1 10*3/uL 0.0-0.2 [facility] Basophils/100 WBC Auto (Bld) Ordered By: PROVIDER TEMP on 01-10-2022 Basophils/100 WBC (Bld) 1.1 % . [facility] Bilirubin Test strip Ql (U)O rdered By: Myron Villarreal on 01-10-2022 Bilirubin Ql (U) Negative Negative [facility] Blood hemoglobin measurement (mass/volume)Ordered By: PROVIDER TEMP on 01-10-2022 Hemoglobin (Bld) [Mass/Vol] 14.2 g/dL 11.8-15.4 [facility] Blood leukocytes automated c ount (number/volume)Ordered By: PROVIDER TEMP on 01-10-2022 WBC (Bld) [#/Vol] 7.4 10*3/uL 4.5-11.0 [facility] Color Auto (U)Ordered By: Stanislav Villarreal on 01-10-2022 Color (U) Yellow Yellow [facility] Creatinine and Glomerular fi ltration rate.predicted panel (S/P/Bld)Ordered By: Myron Villarreal on 01-10-2022 Creatinine [Mass/Vol] 0.87 mg/dL 0.44-1.03 [facility] Eosinophils Auto (Bld) [#/Vo l]Ordered By: PROVIDER TEMP on 01-10-2022 Eosinophils (Bld) [#/Vol] 0.1 10*3/uL 0.0-0.45 [facility] Eosinophils/100 WBC Auto (Bl d)Ordered By: PROVIDER TEMP on 01-10-2022 Eosinophils/100 WBC (Bld) 1.0 % . [facility] Erythrocyte distribution wid th Auto (RBC) [Ratio]Ordered By: PROVIDER TEMP on 01-10-2022 Erythrocyte distribution width (RBC) [Ratio] 14.0 % 11.9-15.3 [facility] Estimated glomerular filtrat ion rate (GFR) non- AmericanOrdered By: Myron Villarreal on 01-10-2022 GFR/1.73 sq M.predicted among non-blacks MDRD (S/P/Bld) [Vol rate/Area] > 60 mL/Min [facility] Globulin Calc (S) [Mass/Vol] Ordered By: Myron Villarreal on 01-10-2022 Globulin (S) [Mass/Vol] 3.4 g/dL [facility] Hematocrit Auto (Bld) [Volum e fraction]Ordered By: PROVIDER TEMP on 01-10-2022 Hematocrit (Bld) [Volume fraction] 42.8 % 34.0-46.4 [facility] Ketones Auto test strip (U) [Mass/Vol]Ordered By: Myron Villarreal on 01-10-2022 Ketones (U) [Mass/Vol] Negative [facility] - CoagulationOrde red By: Myron Villarreal on 01-10-2022 PT Coag (PPP) [Time] 18.6 s 9.0-12.9 [facility] - Hematology and Cell countsOrdered By: PROVIDER TEMP on 01-10-2022 Nucleated RBC/100 WBC (Bld) [Ratio] 0.2 % 0-0.5 [facility] - UrinalysisOrder ed By: Myron Villarreal on 01-10-2022 Hyaline casts LM Ql (Urine sed) 0-8 [LPF] 0-8 [facility] Lymphocytes Auto (Bld) [#/Vo l]Ordered By: PROVIDER TEMP on 01-10-2022 Lymphocytes (Bld) [#/Vol] 1.6 10*3/uL 1.00-4.8 [facility] Lymphocytes/100 WBC Auto (Bl d)Ordered By: PROVIDER TEMP on 01-10-2022 Lymphocytes/100 WBC (Bld) 22.2 % . [facility] MCH Auto (RBC) [Entitic mass ]Ordered By: PROVIDER TEMP on 01-10-2022 MCH (RBC) [Entitic mass] 32.9 pg 24.7-34.3 [facility] MCHC Auto (RBC) [Mass/Vol]Or dered By: PROVIDER TEMP on 01-10-2022 MCHC (RBC) [Mass/Vol] 33.1 g/dL 32.0-35.0 [facility] MCV Auto (RBC) [Entitic vol] Ordered By: PROVIDER TEMP on 01-10-2022 MCV (RBC) [Entitic vol] 99.3 fL 80-100 [facility] Monocytes Auto (Bld) [#/Vol] Ordered By: PROVIDER TEMP on 01-10-2022 Monocytes (Bld) [#/Vol] 0.5 10*3/uL 0.0-0.8 [facility] Monocytes/100 WBC Auto (Bld) Ordered By: PROVIDER TEMP on 01-10-2022 Monocytes/100 WBC (Bld) 6.3 % . [facility] Neutrophils Auto (Bld) [#/Vo l]Ordered By: PROVIDER TEMP on 01-10-2022 Neutrophils (Bld) [#/Vol] 5.2 10*3/uL 1.8-7.7 [facility] Neutrophils/100 WBC Auto (Bl d)Ordered By: PROVIDER TEMP on 01-10-2022 Neutrophils/100 WBC (Bld) 69.4 % . [facility] Nitrite Test strip Ql (U)Ord ered By: Myron Villarreal on 01-10-2022 Nitrite Ql (U) Positive Negative [facility] No Panel InformationOrdered By: Myron Villarreal on 01-10-2022 Estimated GFR () > 60 mL/Min [facility] Comment on above: GFR estimated refere nce range: According to KDOQI guidelines, <60 ml/min/1.73m2 is sufficient to diagnose a patient with chronic kidney disease. Pharmacy Creatinine Clearance (Chem 44.27 [facility] Platelet mean volume Auto (B ld) [Entitic vol]Ordered By: PROVIDER TEMP on 01-10-2022 Platelet mean volume (Bld) [Entitic vol] 8.3 fL 6.3-10.7 [facility] Platelet poor plasma interna tional normalized ratio (INR) by coagulation assay (relatOrdered By: Myron Villarreal on 01-10-2022 INR Coag (PPP) [Relative time] 1.6 {INR} [facility] Comment on above: INR Therapeutic Rang [...] 01-10-2022 Platelets (Bld) [#/Vol] 281 10*3/uL 150-450 [facility] Protein Auto test strip (U) [Mass/Vol]Ordered By: Myron Villarreal on 01-10-2022 Protein (U) [Mass/Vol] Negative Negative [facility] Protein [Mass/volume] in Ser um or PlasmaOrdered By: Myron Villarreal on 01-10-2022 Protein [Mass/Vol] 7.5 g/dL 6.1-7.9 [facility] RBC Auto (Bld) [#/Vol]Ordere d By: PROVIDER TEMP on 01-10-2022 RBC (Bld) [#/Vol] 4.31 10*6/uL 3.60-5.00 [facility] Serum or plasma alanine owusu otransferase measurement without P-5'-P (enzymatic activiOrdered By: Myron Villarreal on 01-10-2022 ALT No additional P-5'-P [Catalytic activity/Vol] 15 U/L [facility] Serum or plasma albumin/glob ulin mass ratioOrdered By: Myron Villarreal on 01-10-2022 Albumin/Globulin [Mass ratio] 1.2 {ratio} [facility] Serum or plasma alkaline dulce maria sphatase measurement (enzymatic activity/volume)Ordered By: Myron Villarreal on 01-10-2022 ALP [Catalytic activity/Vol] 56 U/L 32-92 [facility] Serum or plasma anion gap de terminationOrdered By: Myron Villarreal on 01-10-2022 Anion gap [Moles/Vol] 14.5 mmol/L 6.0-15.0 [facility] Serum or plasma aspartate am inotransferase measurement (enzymatic activity/volume)Ordered By: Myron Villarreal on 01-10-2022 AST [Catalytic activity/Vol] 22 U/L [facility] Serum or plasma calcium silva urement (mass/volume)Ordered By: Myron Villarreal on 01-10-2022 Calcium [Mass/Vol] 9.5 mg/dL 8.2-10.2 [facility] Serum or plasma chloride hector surement (moles/volume)Ordered By: Myron Villarreal on 01-10-2022 Chloride [Moles/Vol] 100 mmol/L 95-114 [place] Serum or plasma glucose silva urement (mass/volume)Ordered By: Myron Villarreal on 01-10-2022 Glucose [Mass/Vol] 88 mg/dL 70-100 [facility] Comment on above: ADA recommended refe rence rangeRandom Glucose Reference Range is dependent on time and content of last meal. Glucose of more than 200 mg/dL in a nonstressed, ambulatory subject supports the diagnosis of Diabetes Mellitus. Serum or plasma potassium me asurement (moles/volume)Ordered By: Myron Villarreal on 01-10-2022 Potassium [Moles/Vol] 4.0 mmol/L 3.5-5.1 [facility] Serum or plasma sodium measu rement (moles/volume)Ordered By: Myron Villarreal on 01-10-2022 Sodium [Moles/Vol] 138 mmol/L 136-146 [facility] Serum or plasma total biliru bin measurement (mass/volume)Ordered By: Myron Villarreal on 01-10-2022 Bilirubin [Mass/Vol] 0.5 mg/dL 0.3-1.2 [place] Serum or plasma total carbon dioxide measurement (moles/volume)Ordered By: Myron Villarreal on 01-10-2022 CO2 [Moles/Vol] 27.5 mmol/L 22.0-30.0 [facility] Serum or plasma urea nitroge n measurement (mass/volume)Ordered By: Myron Villarreal on 01-10-2022 Urea nitrogen [Mass/Vol] 20 mg/dL 9-23 [facility] Specific gravity Auto test s trip (U) [Rel density]Ordered By: Myron Villarreal on 01-10-2022 Specific gravity (U) [Rel density] 1.014 1.001-1.03 0 [facility] Squamous epithelial cells de tection in urine sediment by light microscopyOrdered By: Myron Villarreal on 01-10-2022 Epithelial cells.squamous LM Ql (Urine sed) 0-1 [HPF] 0-2 [facility] Urine bacteria detection by automated methodOrdered By: Myron Villarreal on 01-10-2022 Bacteria Auto Ql (U) 4+ None Seen [facility] Urine clarity by refractomet ry automatedOrdered By: Myron Villarreal on 01-10-2022 Clarity Refractometry automated (U) Cloudy Clear [facility] Urine glucose measurement by automated test strip (mass/volume)Ordered By: Myron Villarreal on 01-10-2022 Glucose Auto test strip (U) [Mass/Vol] Normal mg/dL Normal [facility] Urine hemoglobin detection b y automated test stripOrdered By: Myron Villarreal on 01-10-2022 Hemoglobin Auto test strip Ql (U) Negative Negative [facility] Urine leukocyte esterase det ection by automated test stripOrdered By: Myron Villarreal on 01-10-2022 Leukocyte esterase Auto test strip Ql (U) 4+ Negative [facility] Urobilinogen Auto test strip (U) [Mass/Vol]Ordered By: Myron Villarreal on 01-10-2022 Urobilinogen (U) [Mass/Vol] Normal mg/dL Normal [facility] pH Auto test strip (U)Ordere d By: Myron Villarreal on 01-10-2022 pH (U) 6.5 [pH] 5.0-9.0 [facility] - CoagulationOrde red By: Doug Montana on 01-05-2022 PT Coag (PPP) [Time] 15.9 s 9.0-12.9 [facility] Platelet poor plasma interna tional normalized ratio (INR) by coagulation assay (relatOrdered By: Doug Montana on 01-05-2022 INR Coag (PPP) [Relative time] 1.4 {INR} [facility] Comment on above: INR Therapeutic Rang [...] 01-04-2022 Basophils (Bld) [#/Vol] 0.1 10*3/uL 0.0-0.2 [facility] Basophils/100 WBC Auto (Bld) Ordered By: Doug Montana on 01-04-2022 Basophils/100 WBC (Bld) 0.6 % . [facility] Blood hemoglobin measurement (mass/volume)Ordered By: Doug Montana on 01-04-2022 Hemoglobin (Bld) [Mass/Vol] 14.3 g/dL 11.8-15.4 [facility] Blood leukocytes automated c ount (number/volume)Ordered By: Doug Montana on 01-04-2022 WBC (Bld) [#/Vol] 10.4 10*3/uL 4.5-11.0 [facility] Eosinophils Auto (Bld) [#/Vo l]Ordered By: Doug Montana on 01-04-2022 Eosinophils (Bld) [#/Vol] 0.1 10*3/uL 0.0-0.45 [facility] Eosinophils/100 WBC Auto (Bl d)Ordered By: Doug Montana on 01-04-2022 Eosinophils/100 WBC (Bld) 0.6 % . [facility] Erythrocyte distribution wid th Auto (RBC) [Ratio]Ordered By: Doug Montana on 01-04-2022 Erythrocyte distribution width (RBC) [Ratio] 14.2 % 11.9-15.3 [facility] Hematocrit Auto (Bld) [Volum e fraction]Ordered By: Doug Montana on 01-04-2022 Hematocrit (Bld) [Volume fraction] 42.9 % 34.0-46.4 [facility] - CoagulationOrde red By: Doug Montana on 01-04-2022 PT Coag (PPP) [Time] 19.8 s 9.0-12.9 [facility] - Hematology and Cell countsOrdered By: Doug Montana on 01-04-2022 Nucleated RBC/100 WBC (Bld) [Ratio] 0.1 % 0-0.5 [facility] Lymphocytes Auto (Bld) [#/Vo l]Ordered By: Doug Montana on 01-04-2022 Lymphocytes (Bld) [#/Vol] 2.1 10*3/uL 1.00-4.8 [facility] Lymphocytes/100 WBC Auto (Bl d)Ordered By: Doug Montana on 01-04-2022 Lymphocytes/100 WBC (Bld) 20.2 % . [facility] MCH Auto (RBC) [Entitic mass ]Ordered By: Doug Montana on 01-04-2022 MCH (RBC) [Entitic mass] 33.0 pg 24.7-34.3 [facility] MCHC Auto (RBC) [Mass/Vol]Or dered By: Doug Montana on 01-04-2022 MCHC (RBC) [Mass/Vol] 33.3 g/dL 32.0-35.0 [facility] MCV Auto (RBC) [Entitic vol] Ordered By: Doug Montana on 01-04-2022 MCV (RBC) [Entitic vol] 99.1 fL 80-100 [facility] Monocytes Auto (Bld) [#/Vol] Ordered By: Doug Montana on 01-04-2022 Monocytes (Bld) [#/Vol] 0.6 10*3/uL 0.0-0.8 [facility] Monocytes/100 WBC Auto (Bld) Ordered By: Doug Montana on 01-04-2022 Monocytes/100 WBC (Bld) 5.3 % . [facility] Neutrophils Auto (Bld) [#/Vo l]Ordered By: Doug Montana on 01-04-2022 Neutrophils (Bld) [#/Vol] 7.6 10*3/uL 1.8-7.7 [facility] Neutrophils/100 WBC Auto (Bl d)Ordered By: Doug Montana on 01-04-2022 Neutrophils/100 WBC (Bld) 73.3 % . [facility] Platelet mean volume Auto (B ld) [Entitic vol]Ordered By: Doug Montana on 01-04-2022 Platelet mean volume (Bld) [Entitic vol] 7.8 fL 6.3-10.7 [facility] Platelet poor plasma interna tional normalized ratio (INR) by coagulation assay (relatOrdered By: Doug Montana on 01-04-2022 INR Coag (PPP) [Relative time] 1.8 {INR} [facility] Comment on above: INR Therapeutic Rang [...] 01-04-2022 Platelets (Bld) [#/Vol] 296 10*3/uL 150-450 [facility] RBC Auto (Bld) [#/Vol]Ordere d By: Doug Rubén on 01-04-2022 RBC (Bld) [#/Vol] 4.33 10*6/uL 3.60-5.00 [facility] CALCIUMon 12-29-2021 Calcium [Mass/Vol] 9.3 mg/dL Normal 8.5-10.1 [facility] Comment on above: Performed By: #### SINDHU WARD #### [facility] [address] [address] [address] Parth Wilson CREATININEon 12-29-2021 Creatinine [Mass/Vol] 0.97 mg/dL Normal 0.55-1.02 [facility] Comment on above: Performed By: #### SINDHU WARD #### [facility] [address] [address] [address] Parth Wilson EGFR-AF MICRONESIAN >60 Normal >=60 [facility] Comment on above: Performed By: #### SINDHU WARD #### [facility] [address] [address] [address] Parth Wilson EGFR-NON AF MICRONESIAN 54 mL/min/1.73m2 Critically low >=60 [facility] Comment on above: Performed By: #### SINDHU WARD #### [facility] [address] [address] [address] Parth Wilson Creatinine and Glomerular fi ltration rate.predicted panel (S/P/Bld)Ordered By: Akhil Olivarez on 12-13-2021 Creatinine [Mass/Vol] 0.74 mg/dL 0.44-1.03 [facility] Estimated glomerular filtrat ion rate (GFR) non- AmericanOrdered By: Akhil Olivarez on 12-13-2021 GFR/1.73 sq M.predicted among non-blacks MDRD (S/P/Bld) [Vol rate/Area] > 60 mL/Min [facility] No Panel InformationOrdered By: Akhil Olivarez on 12-13-2021 Estimated GFR () > 60 mL/Min [facility] Comment on above: GFR estimated refere nce range: According to KDOQI guidelines, <60 ml/min/1.73m2 is sufficient to diagnose a patient with chronic kidney disease. Pharmacy Creatinine Clearance (Chem N/A [facility] No Panel Informationon 12-13 3.46\S\3.46 Normal 0.45-5.33 [facility] [employer] 250 DO Work Phone: Comment on above: PERFORMED BY:[address] [address] [address] [place], [place] [phone] MEDICAL DIRECTORGIULIA VALERIO M.D. 19\S\19 Normal 10-42 [facility] [employer] 250 DO Work Phone: 19.5\S\19.5 above high threshold 6.0-15.0 [facility] [employer] 250 DO Work Phone: 10.4\S\10.4 above high threshold 8.2-10.2 [facility] [employer] 250 DO Work Phone: [phone] 26.6\S\26.6 Normal 22.0-30.0 [facility] [employer] ayde 250 DO Work Phone: 95\S\95 Normal 95-114 [facility] [employer] 250 DO Work Phone: 4.1\S\4.1 Normal 3.5-5.1 [facility] [employer] 250 DO Work Phone: 137\S\137 Normal 136-146 [facility] [employer] ayde 250 DO Work Phone: > 60 Normal [facility] [employer] 250 DO Work Phone: Comment on above: GFR estimated refere nce range: According to KDOQI guidelines, <60 ml/min/1.73m2 is sufficient to diagnose a patient with chronic kidney disease. 0.74\S\0.74 Normal 0.44-1.03 [facility] [employer] 250 DO Work Phone: 11\S\11 Normal 9-23 [facility] [employer] ayde 250 DO Work Phone: 111\S\111 above high threshold 70-100 [facility] [employer] ayde 250 DO Work Phone: Comment on above: Random Glucose Refer ence Range is dependent on time and content of last meal. Glucose of more than 200 mg/dL in a nonstressed, ambulatory subject supports the diagnosis of Diabetes Mellitus. ADA recommended reference range Radiologyon 12-13-2021 XR Chest 2 Views Normal [facility] [employer] ayde 250 DO Work Phone: Serum or plasma anion gap de terminationOrdered By: Akhil Olivarez on 12-13-2021 Anion gap [Moles/Vol] 19.5 mmol/L 6.0-15.0 [facility] Serum or plasma aspartate am inotransferase measurement (enzymatic activity/volume)Ordered By: Akhil Olivarez on 12-13-2021 AST [Catalytic activity/Vol] 19 U/L 10-42 [facility] Serum or plasma calcium silva urement (mass/volume)Ordered By: Akhil Olivarez on 12-13-2021 Calcium [Mass/Vol] 10.4 mg/dL 8.2-10.2 [facility] Serum or plasma chloride hector surement (moles/volume)Ordered By: Akhil Olivarez on 12-13-2021 Chloride [Moles/Vol] 95 mmol/L 95-114 [place] Serum or plasma glucose silva urement (mass/volume)Ordered By: Akhil Olivarez on 12-13-2021 Glucose [Mass/Vol] 111 mg/dL 70-100 [facility] Comment on above: ADA recommended refe rence [...] on 12-13-2021 Potassium [Moles/Vol] 4.1 mmol/L 3.5-5.1 [facility] Serum or plasma sodium measu rement (moles/volume)Ordered By: Akhil Olivarez on 12-13-2021 Sodium [Moles/Vol] 137 mmol/L 136-146 [facility] Serum or plasma total carbon dioxide measurement (moles/volume)Ordered By: Akhil Olivarez on 12-13-2021 CO2 [Moles/Vol] 26.6 mmol/L 22.0-30.0 [facility] Serum or plasma urea nitroge n measurement (mass/volume)Ordered By: Akhil Olivarez on 12-13-2021 Urea nitrogen [Mass/Vol] 11 mg/dL 9-23 [facility] TSH DL <= 0.005 mIU/L QnOrde red By: Akhil Olivarez on 12-13-2021 TSH Qn 3.46 m[IU]/L 0.45-5.33 [facility] Office Visit (Cardiology)on 11-28-2021 Follow-up visit [...] Weight Tips; Status:Complete - Retrospective Authorization; Done: [id number] SocHx: Never a smoker Tobacco Use Screening; Status:Complete; Done: [id number] Patient Instructions Please bring all medicines, vitamins, [...] TABLET DAILY DIRECTED. Vitamin D 50 MCG (2000 UT) Oral CapsuleTAKE 1 CAPSULE Daily Warfarin Sodium 3 MG Oral TabletTAKE 1 TABLET DAILY DIRECTED. Managed at [facility]. Allergies Medication Motrin TABS Allergy; Hives;; [...] negative for complaint. Vitals Vital Signs Recorded: [id number] 08:51AMRecorded: [id number] 08:22AM [id number], LUE, [id number], LUE, Sitting Pxiaxmmwa79, LUE, Wznikbf95, LUE, Sitting Heart Rate72, L Radial Height5 ft 2 in Cmfofi251 lb BMI Kazhqtqajy52.64 kg/m2 BSA Calculated1.8 Tobacco Useb) No Falls [...] . Psyc (more content not included)... [facility] Tobacco Screening.on 022 Fall risk assessment a) No falls within the last year -[facility]-Sandu ayde 250 DO Work Phone: Tobacco use status CPHS b) No -[facility]-RecruitLoopu ayde 250 DO Work Phone: Laboratory - CoagulationOrde red By: Nguyễn Langston on 10-29-2021 PT Coag (PPP) [Time] 38.1 s 9.0-12.9 [place] Platelet poor plasma interna tional normalized ratio (INR) by coagulation assay (relatOrdered By: Nguyễn Langston on 10-29-2021 INR Coag (PPP) [Relative time] 3.3 {INR} [facility] Comment on above: INR Therapeutic Rang [...] aPTT Coag (PPP) [Time] 45.5 s 25.1-36.5 [facility] Albumin [Mass/volume] in Ser um or PlasmaOrdered By: Stephanie Locke on 10-28-2021 Albumin [Mass/Vol] 3.9 g/dL 3.2-5.5 [facility] Basophils Auto (Bld) [#/Vol] Ordered By: Nguyễn Langston on 10-28-2021 Basophils (Bld) [#/Vol] 0.0 10*3/uL 0.0-0.2 [facility] Basophils/100 WBC Auto (Bld) Ordered By: Nguyễn Langston on 10-28-2021 Basophils/100 WBC (Bld) 0.3 % . [facility] Bilirubin Test strip Ql (U)O rdered By: Stephanie Locke on 10-28-2021 Bilirubin Ql (U) Negative Negative [facility] Blood hemoglobin measurement (mass/volume)Ordered By: Nguyễn Langston on 10-28-2021 Hemoglobin (Bld) [Mass/Vol] 14.6 g/dL 11.8-15.4 [facility] Blood leukocytes automated c ount (number/volume)Ordered By: Nguyễn Langston on 10-28-2021 WBC (Bld) [#/Vol] 7.1 10*3/uL 4.5-11.0 [facility] C reactive protein [Mass/vol ume] in Serum or Plasma by High sensitivity methodOrdered By: Tatyana Madrid on 10-28-2021 CRP High sensitivity method [Mass/Vol] 1.8 mg/L [facility] Comment on above: Cardiovascular Risk Classification [...] SARS-CoV-2 (COVID-19) Ab IA Ql Negative Negative [facility] Comment on above: This is a duplicate Cepheid Xpert Xpress CoV-2/Flu/RSV Plus RNA by RT-PCR result to be used for statistical tracking purpose only. SARS-CoV-2 (COVID-19) RNA CIERA+probe Ql (Unsp spec) [facility] COVID-19 SOFIAOrdered By: Izzy Locke on 10-28-2021 SARS-CoV+SARS-CoV-2 (COVID-19) Ag IA.rapid Ql (Resp) Negative Negative [facility] Comment on above: This is a duplicate Luiza SARS Antigen (BRANDON) result to be used for statistical tracking purpose only. Cholesterol [Mass/volume] in Serum or PlasmaOrdered By: Ashely Adan on 10-28-2021 Cholesterol [Mass/Vol] 230 mg/dL 140-200 [facility] Comment on above: Chol less than 200 m g/dl low risk Chol 201-239 mg/dl borderline risk Chol 240 mg/dl and greater high risk Chol less than 200 m g/dl low riskChol 201-239 mg/dl borderline riskChol 240 mg/dl and greater high risk Cholesterol in LDL Calc [Mas s/Vol]Ordered By: Ashely Adan on 10-28-2021 Cholesterol in LDL [Mass/Vol] 158 mg/dL 0-100 [facility] Comment on above: LDL ATP III [...] 10-28-2021 Cholesterol in VLDL [Mass/Vol] 21 mg/dL [facility] Color Auto (U)Ordered By: Izzy Locke on 10-28-2021 Color (U) Yellow Yellow [facility] Creatine kinase [Enzymatic a ctivity/volume] in Serum or PlasmaOrdered By: Nguyễn Langston on 10-28-2021 CK [Catalytic activity/Vol] 58 U/L [facility] Creatinine and Glomerular fi ltration rate.predicted panel (S/P/Bld)Ordered By: Nguyễn Langston on 10-28-2021 Creatinine [Mass/Vol] 0.88 mg/dL 0.44-1.03 [facility] Digoxin [Mass/volume] in Ser um or PlasmaOrdered By: Nguyễn Langston on 10-28-2021 Digoxin [Mass/Vol] 1.0 ng/mL 0.9-2.0 [facility] Comment on above: Last dose: - Eosinophils Auto (Bld) [#/Vo l]Ordered By: Nguyễn Langston on 10-28-2021 Eosinophils (Bld) [#/Vol] 0.0 10*3/uL 0.0-0.45 [facility] Eosinophils/100 WBC Auto (Bl d)Ordered By: Nguyễn Langston on 10-28-2021 Eosinophils/100 WBC (Bld) 0.3 % . [facility] Erythrocyte distribution wid th Auto (RBC) [Ratio]Ordered By: Nguyễn Langston on 10-28-2021 Erythrocyte distribution width (RBC) [Ratio] 13.1 % 11.9-15.3 [facility] Erythrocyte sedimentation ra te by Photometric methodOrdered By: Tatyana Madrid on 10-28-2021 ESR Photometric method (Bld) [Velocity] 24 mm/hr 0-29 [facility] Estimated glomerular filtrat ion rate (GFR) non- AmericanOrdered By: Nguyễn Langston on 10-28-2021 GFR/1.73 sq M.predicted among non-blacks MDRD (S/P/Bld) [Vol rate/Area] > 60 mL/Min [facility] Globulin Calc (S) [Mass/Vol] Ordered By: Stephanie Locke on 10-28-2021 Globulin (S) [Mass/Vol] 3.7 g/dL [facility] Glucose mean value [Mass/vol ume] in Blood Estimated from glycated hemoglobinOrdered By: Ashely Adan on 10-28-2021 Average glucose Estimated from glycated hemoglobin (Bld) [Mass/Vol] 137 mg/dL [facility] Hematocrit Auto (Bld) [Volum e fraction]Ordered By: Nguyễn Langston on 10-28-2021 Hematocrit (Bld) [Volume fraction] 43.8 % 34.0-46.4 [facility] Hemoglobin A1c percentageOrd ered By: Ashely Adan on 10-28-2021 HbA1c (Bld) [Mass fraction] 6.4 % 4.3-5.6 [facility] Comment on above: Increased risk for d iabetes: 5.7 - 6.4 diabetes: >6.4 glycemic control for adults with diabetes: <7.0 Increased risk for d iabetes: 5.7 - 6.4diabetes: >6.4glycemic control for adults with diabetes: <7.0 Ketones Auto test strip (U) [Mass/Vol]Ordered By: Stephanie Locke on 10-28-2021 Ketones (U) [Mass/Vol] Trace Negative [facility] Laboratory - Chemistry and C hemistry - challengeOrdered By: Nguyễn Langston on 10-28-2021 Cobalamin (Vitamin B12) [Mass/Vol] 2953 pg/mL 180-914 [facility] Magnesium [Mass/Vol] 2.2 mg/dL 1.6-2.6 [place] [facility] - Chemistry and C hemistry - challengeOrdered By: Stephanie Locke on 10-28-2021 Natriuretic peptide B (Bld) [Mass/Vol] 75.0 pg/mL 5-100 [facility] Laboratory - CoagulationOrde red By: Stephanie Locke on 10-28-2021 PT Coag (PPP) [Time] 30.7 s 9.0-12.9 [place] [facility] - Hematology and Cell countsOrdered By: Nguyễn Langston on 10-28-2021 Nucleated RBC/100 WBC (Bld) [Ratio] 0.1 % 0-0.5 [facility] Lymphocytes Auto (Bld) [#/Vo l]Ordered By: Nguyễn Langston on 10-28-2021 Lymphocytes (Bld) [#/Vol] 1.3 10*3/uL 1.00-4.8 [facility] Lymphocytes/100 WBC Auto (Bl d)Ordered By: Nguyễn Langston on 10-28-2021 Lymphocytes/100 WBC (Bld) 18.0 % . [facility] MCH Auto (RBC) [Entitic mass ]Ordered By: Nguyễn Langston on 10-28-2021 MCH (RBC) [Entitic mass] 32.1 pg 24.7-34.3 [facility] MCHC Auto (RBC) [Mass/Vol]Or dered By: Nguyễn Langston on 10-28-2021 MCHC (RBC) [Mass/Vol] 33.4 g/dL 32.0-35.0 [facility] MCV Auto (RBC) [Entitic vol] Ordered By: Nguyễn Langston on 10-28-2021 MCV (RBC) [Entitic vol] 96.1 fL 80-100 [facility] Monocytes Auto (Bld) [#/Vol] Ordered By: Nguyễn Langston on 10-28-2021 Monocytes (Bld) [#/Vol] 0.8 10*3/uL 0.0-0.8 [facility] Monocytes/100 WBC Auto (Bld) Ordered By: Nguyễn Langston on 10-28-2021 Monocytes/100 WBC (Bld) 11.9 % . [facility] Neutrophils Auto (Bld) [#/Vo l]Ordered By: Nguyễn Langston on 10-28-2021 Neutrophils (Bld) [#/Vol] 4.9 10*3/uL 1.8-7.7 [facility] Neutrophils/100 WBC Auto (Bl d)Ordered By: Nguyễn Langston on 10-28-2021 Neutrophils/100 WBC (Bld) 69.5 % . [facility] Nitrite Test strip Ql (U)Ord ered By: Stephanie Locke on 10-28-2021 Nitrite Ql (U) Negative Negative [facility] No Panel InformationOrdered By: Nguyễn Langston on 10-28-2021 25-Hydroxy Vitamin D Total 46.5 ng/mL 30-100 [facility] Comment on above: VITAMIN D STATUS 25( [place])VITAMIN D RANGE (ng/mL) Deficient <20 Insufficient 20 to <30 Sufficient 30 to 100 Reference: Willie WESTON,Mejia NC, Angel FRANZ, et al. Evaluation,treatment, and [...] 96(7):1911-30. Estimated GFR () > 60 mL/Min [facility] Comment on above: GFR estimated refere nce range: According to KDOQI guidelines, <60 ml/min/1.73m2 is sufficient to diagnose a patient with chronic kidney disease. Pharmacy Creatinine Clearance (Chem 56.85 [facility] Platelet mean volume Auto (B ld) [Entitic vol]Ordered By: Nguyễn Langston on 10-28-2021 Platelet mean volume (Bld) [Entitic vol] 8.4 fL 6.3-10.7 [facility] Platelet poor plasma interna tional normalized ratio (INR) by coagulation assay (relatOrdered By: Stephanie Locke on 10-28-2021 INR Coag (PPP) [Relative time] 2.7 {INR} [facility] Comment on above: INR Therapeutic Rang [...] 10-28-2021 Platelets (Bld) [#/Vol] 229 10*3/uL 150-450 [facility] Protein Auto test strip (U) [Mass/Vol]Ordered By: Stephanie Locke on 10-28-2021 Protein (U) [Mass/Vol] Negative Negative Fi [facility] Protein [Mass/volume] in Ser um or PlasmaOrdered By: Stephanie Locke on 10-28-2021 Protein [Mass/Vol] 7.6 g/dL 6.1-7.9 [facility] RBC Auto (Bld) [#/Vol]Ordere d By: Nguyễn Langston on 10-28-2021 RBC (Bld) [#/Vol] 4.56 10*6/uL 3.60-5.00 [facility] Serum or plasma alanine owusu otransferase measurement without P-5'-P (enzymatic activiOrdered By: Stephanie Locke on 10-28-2021 ALT No additional P-5'-P [Catalytic activity/Vol] 21 U/L 10-60 [facility] Serum or plasma albumin/glob ulin mass ratioOrdered By: Stephanie Locke on 10-28-2021 Albumin/Globulin [Mass ratio] 1.1 {ratio} [facility] Serum or plasma alkaline dulce maria sphatase measurement (enzymatic activity/volume)Ordered By: Stephanie Locke on 10-28-2021 ALP [Catalytic activity/Vol] 57 U/L 32-92 [facility] Serum or plasma aspartate am inotransferase measurement (enzymatic activity/volume)Ordered By: Stephanie Locke on 10-28-2021 AST [Catalytic activity/Vol] 25 U/L 10-42 [facility] Serum or plasma calcium silva urement (mass/volume)Ordered By: Nguyễn Langston on 10-28-2021 Calcium [Mass/Vol] 8.8 mg/dL 8.2-10.2 [facility] Serum or plasma chloride hector surement (moles/volume)Ordered By: Nguyễn Langston on 10-28-2021 Chloride [Moles/Vol] 98 mmol/L 95-114 [place] Serum or plasma glucose silva urement (mass/volume)Ordered By: Nguyễn Langston on 10-28-2021 Glucose [Mass/Vol] 121 mg/dL 70-100 [facility] Comment on above: ADA recommended refe rence [...] Cholesterol in HDL [Mass/Vol] 50 mg/dL 35-85 [facility] Comment on above: HDL CHOL ATP-III CLA SSIFICATION Cardiovascular Risk HDL > or equal to 60 mg/dL LOW HDL < 40 mg/dL HIGH HDL CHOL ATP-III CLA SSIFICATION Cardiovascular RiskHDL > or equal to 60 mg/dL LOWHDL < 40 mg/dL HIGH Serum or plasma potassium me asurement (moles/volume)Ordered By: Nguyễn Langston on 10-28-2021 Potassium [Moles/Vol] 4.3 mmol/L 3.5-5.1 [facility] Serum or plasma sodium measu rement (moles/volume)Ordered By: Nguyễn Langston on 10-28-2021 Sodium [Moles/Vol] 134 mmol/L 136-146 [facility] Serum or plasma total biliru bin measurement (mass/volume)Ordered By: Stephanie Locke on 10-28-2021 Bilirubin [Mass/Vol] 0.8 mg/dL 0.3-1.2 [place] Serum or plasma total carbon dioxide measurement (moles/volume)Ordered By: Nguyễn Langston on 10-28-2021 CO2 [Moles/Vol] 25.0 mmol/L 22.0-30.0 [facility] Serum or plasma total choles terol/high density lipoprotein (HDL) cholesterol mass ratOrdered By: Ashely Adna on 10-28-2021 Cholesterol.total/Chol esterol in HDL [Mass ratio] 4.6 {ratio} <5.0 [facility] Serum or plasma urea nitroge n measurement (mass/volume)Ordered By: Nguyễn Langston on 10-28-2021 Urea nitrogen [Mass/Vol] 27 mg/dL 9-23 [facility] Specific gravity Auto test s trip (U) [Rel density]Ordered By: Stephanie Locke on 10-28-2021 Specific gravity (U) [Rel density] 1.012 1.001-1.03 0 [facility] TSH DL <= 0.005 mIU/L QnOrde red By: Nguyễn Langston on 10-28-2021 TSH Qn 1.93 m[IU]/L 0.45-5.33 [facility] Thyroxine (T4) free [Mass/vo lume] in Serum or PlasmaOrdered By: Nguyễn Langston on 10-28-2021 Free T4 [Mass/Vol] 1.04 ng/dL 0.61-1.12 [facility] Triglyceride [Mass/volume] i n Serum or PlasmaOrdered By: Ashely Adan on 10-28-2021 Triglyceride [Mass/Vol] 108 mg/dL 35-149 [facility] Comment on above: TRIG ATP III [...] High sensitivity method [Mass/Vol] 13 pg/mL 0-15 [facility] Urine clarity by refractomet ry automatedOrdered By: Stephanie Locke on 10-28-2021 Clarity Refractometry automated (U) Clear Clear [facility] Urine glucose measurement by automated test strip (mass/volume)Ordered By: Stephanie Locke on 10-28-2021 Glucose Auto test strip (U) [Mass/Vol] Normal mg/dL Normal [facility] Urine hemoglobin detection b y automated test stripOrdered By: Stephanie Locke on 10-28-2021 Hemoglobin Auto test strip Ql (U) Negative Negative [facility] Urine leukocyte esterase det ection by automated test stripOrdered By: Stephanie Locke on 10-28-2021 Leukocyte esterase Auto test strip Ql (U) Negative Negative [facility] Urobilinogen Auto test strip (U) [Mass/Vol]Ordered By: Stephanie Locke on 10-28-2021 Urobilinogen (U) [Mass/Vol] Normal mg/dL Normal [facility] pH Auto test strip (U)Ordere d By: Stephanie Locke on 10-28-2021 pH (U) 6.0 [pH] 5.0-9.0 [facility] Activated partial thrombopla stin time (aPTT) in platelet poor plasma by coagulation aOrdered By: Myron Villarreal on 10-25-2021 aPTT Coag (PPP) [Time] 44.9 s 25.1-36.5 [facility] Albumin [Mass/volume] in Ser um or PlasmaOrdered By: Myron Villarreal on 10-25-2021 Albumin [Mass/Vol] 4.1 g/dL 3.2-5.5 [facility] Basophils Auto (Bld) [#/Vol] Ordered By: Myron Villarreal on 10-25-2021 Basophils (Bld) [#/Vol] 0.1 10*3/uL 0.0-0.2 [facility] Basophils/100 WBC Auto (Bld) Ordered By: Myron Villarreal on 10-25-2021 Basophils/100 WBC (Bld) 0.9 % . [facility] Blood hemoglobin measurement (mass/volume)Ordered By: Myron Villarreal on 10-25-2021 Hemoglobin (Bld) [Mass/Vol] 15.8 g/dL 11.8-15.4 [facility] Blood leukocytes automated c ount (number/volume)Ordered By: Myron Villarreal on 10-25-2021 WBC (Bld) [#/Vol] 9.4 10*3/uL 4.5-11.0 [facility] Creatine kinase [Enzymatic a ctivity/volume] in Serum or PlasmaOrdered By: Myron Villarreal on 10-25-2021 CK [Catalytic activity/Vol] 64 U/L 22-269 [facility] Creatinine and Glomerular fi ltration rate.predicted panel (S/P/Bld)Ordered By: Myron Villarreal on 10-25-2021 Creatinine [Mass/Vol] 1.02 mg/dL 0.44-1.03 [facility] Eosinophils Auto (Bld) [#/Vo l]Ordered By: Myron Villarreal on 10-25-2021 Eosinophils (Bld) [#/Vol] 0.1 10*3/uL 0.0-0.45 [facility] Eosinophils/100 WBC Auto (Bl d)Ordered By: Myron Villarreal on 10-25-2021 Eosinophils/100 WBC (Bld) 1.0 % . [facility] Erythrocyte distribution wid th Auto (RBC) [Ratio]Ordered By: Myron Villarreal on 10-25-2021 Erythrocyte distribution width (RBC) [Ratio] 13.0 % 11.9-15.3 [facility] Estimated glomerular filtrat ion rate (GFR) non- AmericanOrdered By: Myron Villarreal on 10-25-2021 GFR/1.73 sq M.predicted among non-blacks MDRD (S/P/Bld) [Vol rate/Area] 51 mL/Min [facility] Globulin Calc (S) [Mass/Vol] Ordered By: Myron Villarreal on 10-25-2021 Globulin (S) [Mass/Vol] 3.7 g/dL [facility] Glucose Glucometer (BldC) [M ass/Vol]Ordered By: Guillermo Sanders on 10-25-2021 Glucose [Mass/Vol] 143 mg/dL [facility] Comment on above: Random Glucose Refer ence Range is dependent on time and content of last meal. Glucose of more than 200 mg/dL in a nonstressed, ambulatory subject supports the diagnosis of Diabetes Mellitus. Hematocrit Auto (Bld) [Volum e fraction]Ordered By: Myron Villarreal on 10-25-2021 Hematocrit (Bld) [Volume fraction] 47.4 % 34.0-46.4 [facility] Laboratory - CoagulationOrde red By: Myron Villarreal on 10-25-2021 PT Coag (PPP) [Time] 29.8 s 9.0-12.9 [place] [facility] - Hematology and Cell countsOrdered By: Myron Villarreal on 10-25-2021 Nucleated RBC/100 WBC (Bld) [Ratio] 0.0 % 0-0.5 [facility] Lymphocytes Auto (Bld) [#/Vo l]Ordered By: Myron Villarreal on 10-25-2021 Lymphocytes (Bld) [#/Vol] 1.6 10*3/uL 1.00-4.8 [facility] Lymphocytes/100 WBC Auto (Bl d)Ordered By: Myron Villarreal on 10-25-2021 Lymphocytes/100 WBC (Bld) 16.9 % . [facility] MCH Auto (RBC) [Entitic mass ]Ordered By: Myron Villarreal on 10-25-2021 MCH (RBC) [Entitic mass] 32.1 pg 24.7-34.3 [facility] MCHC Auto (RBC) [Mass/Vol]Or dered By: Myron Villarreal on 10-25-2021 MCHC (RBC) [Mass/Vol] 33.4 g/dL 32.0-35.0 [facility] MCV Auto (RBC) [Entitic vol] Ordered By: Myron Villarreal on 10-25-2021 MCV (RBC) [Entitic vol] 96.1 fL 80-100 [facility] Monocytes Auto (Bld) [#/Vol] Ordered By: Myron Villarreal on 10-25-2021 Monocytes (Bld) [#/Vol] 1.1 10*3/uL 0.0-0.8 [facility] Monocytes/100 WBC Auto (Bld) Ordered By: Myron Villarreal on 10-25-2021 Monocytes/100 WBC (Bld) 11.4 % . [facility] Neutrophils Auto (Bld) [#/Vo l]Ordered By: Myron Villarreal on 10-25-2021 Neutrophils (Bld) [#/Vol] 6.5 10*3/uL 1.8-7.7 [facility] Neutrophils/100 WBC Auto (Bl d)Ordered By: Myron Villarreal on 10-25-2021 Neutrophils/100 WBC (Bld) 69.8 % . [facility] No Panel InformationOrdered By: Myron Villarreal on 10-25-2021 Estimated GFR () > 60 mL/Min [facility] Comment on above: GFR estimated refere nce range: According to KDOQI guidelines, <60 ml/min/1.73m2 is sufficient to diagnose a patient with chronic kidney disease. Pharmacy Creatinine Clearance (Chem N/A [facility] Platelet mean volume Auto (B ld) [Entitic vol]Ordered By: Myron Villarreal on 10-25-2021 Platelet mean volume (Bld) [Entitic vol] 8.6 fL 6.3-10.7 [facility] Platelet poor plasma interna tional normalized ratio (INR) by coagulation assay (relatOrdered By: Myron Villarreal on 10-25-2021 INR Coag (PPP) [Relative time] 2.6 {INR} [facility] Comment on above: INR Therapeutic Rang [...] 10-25-2021 Platelets (Bld) [#/Vol] 226 10*3/uL 150-450 [facility] Protein [Mass/volume] in Ser um or PlasmaOrdered By: Myron Villarreal on 10-25-2021 Protein [Mass/Vol] 7.8 g/dL 6.1-7.9 [facility] RBC Auto (Bld) [#/Vol]Ordere d By: Myron Villarreal on 10-25-2021 RBC (Bld) [#/Vol] 4.93 10*6/uL 3.60-5.00 [facility] Serum or plasma alanine owusu otransferase measurement without P-5'-P (enzymatic activiOrdered By: Myron Villarreal on 10-25-2021 ALT No additional P-5'-P [Catalytic activity/Vol] 19 U/L 10-60 [facility] Serum or plasma albumin/glob ulin mass ratioOrdered By: Myron Villarreal on 10-25-2021 Albumin/Globulin [Mass ratio] 1.1 {ratio} [facility] Serum or plasma alkaline dulce maria sphatase measurement (enzymatic activity/volume)Ordered By: Myron Villarreal on 10-25-2021 ALP [Catalytic activity/Vol] 69 U/L 32-92 [facility] Serum or plasma aspartate am inotransferase measurement (enzymatic activity/volume)Ordered By: Myron Villarreal on 10-25-2021 AST [Catalytic activity/Vol] 28 U/L 10-42 [facility] Serum or plasma calcium silva urement (mass/volume)Ordered By: Myron Villarreal on 10-25-2021 Calcium [Mass/Vol] 10.0 mg/dL 8.2-10.2 [facility] Serum or plasma chloride hector surement (moles/volume)Ordered By: Myron Villarreal on 10-25-2021 Chloride [Moles/Vol] 96 mmol/L 95-114 [place] Serum or plasma creatine kin ase MB (CKMB)/total creatine kinase (CK) ratio by calculaOrdered By: Myron Villarreal on 10-25-2021 CK.MB Calc [Catalytic fraction] 3.9 % 0.00-2.50 [facility] Serum or plasma creatine kin ase MB measurement (mass/volume)Ordered By: Myron Villarreal on 10-25-2021 CK.MB [Mass/Vol] 2.5 ng/mL 0.6-6.3 [facility] Serum or plasma glucose silva urement (mass/volume)Ordered By: Myron Villarreal on 10-25-2021 Glucose [Mass/Vol] 120 mg/dL 70-100 [facility] Comment on above: ADA recommended refe rence [...] on 10-25-2021 Potassium [Moles/Vol] 4.3 mmol/L 3.5-5.1 [facility] Serum or plasma sodium measu rement (moles/volume)Ordered By: Myron Villarreal on 10-25-2021 Sodium [Moles/Vol] 134 mmol/L 136-146 [facility] Serum or plasma total biliru bin measurement (mass/volume)Ordered By: Myron Villarreal on 10-25-2021 Bilirubin [Mass/Vol] 0.7 mg/dL 0.3-1.2 [place] Serum or plasma total carbon dioxide measurement (moles/volume)Ordered By: Myron Villarreal on 10-25-2021 CO2 [Moles/Vol] 24.8 mmol/L 22.0-30.0 [facility] Serum or plasma urea nitroge n measurement (mass/volume)Ordered By: Myron Villarreal on 10-25-2021 Urea nitrogen [Mass/Vol] 19 mg/dL 12-30 [facility] Troponin I.cardiac [Mass/vol ume] in Serum or Plasma by High sensitivity methodOrdered By: Myron Villarreal on 10-25-2021 Troponin I.cardiac High sensitivity method [Mass/Vol] 16 pg/mL 0- [facility] Urine culture routineOrdered By: Daily Hart on 10-23-2021 Bacteria identified Cx Nom (U) Enterococcus faecalis [facility] Albumin [Mass/volume] in Ser um or PlasmaOrdered By: Daily Hart on 10-21-2021 Albumin [Mass/Vol] 4.2 g/dL 3.2-5.5 [facility] Automated erythrocytes count in urine sediment (number/area)Ordered By: Daily Hart on 10-21-2021 RBC Auto (Urine sed) [#/Area] 0-1 [HPF] 0-4 [facility] Automated leukocytes count i n urine sediment (number/area)Ordered By: Daily Hart on 10-21-2021 WBC Auto (Urine sed) [#/Area] 50-100 [HPF] 0-4 [facility] Basophils Auto (Bld) [#/Vol] Ordered By: Daily Hart on 10-21-2021 Basophils (Bld) [#/Vol] 0.1 10*3/uL 0.0-0.2 [facility] Basophils/100 WBC Auto (Bld) Ordered By: Daily Hart on 10-21-2021 Basophils/100 WBC (Bld) 1.0 % . [facility] Bilirubin Test strip Ql (U)O rdered By: Daily Hart on 10-21-2021 Bilirubin Ql (U) Negative Negative [facility] Blood hemoglobin measurement (mass/volume)Ordered By: Daily Hart on 10-21-2021 Hemoglobin (Bld) [Mass/Vol] 16.0 g/dL 11.8-15.4 [facility] Blood leukocytes automated c ount (number/volume)Ordered By: Daily Hart on 10-21-2021 WBC (Bld) [#/Vol] 6.8 10*3/uL 4.5-11.0 [facility] Color Auto (U)Ordered By: Jacqueline Hart on 10-21-2021 Color (U) Yellow Yellow [facility] Creatinine and Glomerular fi ltration rate.predicted panel (S/P/Bld)Ordered By: Daily Hart on 10-21-2021 Creatinine [Mass/Vol] 0.96 mg/dL 0.44-1.03 [facility] Digoxin [Mass/volume] in Ser um or PlasmaOrdered By: Daily Hart on 10-21-2021 Digoxin [Mass/Vol] 0.6 ng/mL 0.9-2.0 [facility] Comment on above: Last dose: - Eosinophils Auto (Bld) [#/Vo l]Ordered By: Daily Hart on 10-21-2021 Eosinophils (Bld) [#/Vol] 0.0 10*3/uL 0.0-0.45 [facility] Eosinophils/100 WBC Auto (Bl d)Ordered By: Daily Hart on 10-21-2021 Eosinophils/100 WBC (Bld) 0.7 % . [facility] Erythrocyte distribution wid th Auto (RBC) [Ratio]Ordered By: Daily Hart on 10-21-2021 Erythrocyte distribution width (RBC) [Ratio] 13.0 % 11.9-15.3 [facility] Estimated glomerular filtrat ion rate (GFR) non- AmericanOrdered By: Daily Hart on 10-21-2021 GFR/1.73 sq M.predicted among non-blacks MDRD (S/P/Bld) [Vol rate/Area] 55 mL/Min [facility] Globulin Calc (S) [Mass/Vol] Ordered By: Daily Hart on 10-21-2021 Globulin (S) [Mass/Vol] 3.9 g/dL [facility] Hematocrit Auto (Bld) [Volum e fraction]Ordered By: Daily Hart on 10-21-2021 Hematocrit (Bld) [Volume fraction] 47.9 % 34.0-46.4 [facility] Ketones Auto test strip (U) [Mass/Vol]Ordered By: Dailystanislav Hart on 10-21-2021 Ketones (U) [Mass/Vol] Negative [facility] and C hemistry - challengeOrdered By: Daily Hart on 10-21-2021 Natriuretic peptide B (Bld) [Mass/Vol] 76.0 pg/mL 5-100 [facility] - Hematology and Cell countsOrdered By: Daily Hart on 10-21-2021 Nucleated RBC/100 WBC (Bld) [Ratio] 0.0 % 0-0.5 [facility] - UrinalysisOrder ed By: Daily Hart on 10-21-2021 Hyaline casts LM Ql (Urine sed) 0-8 [LPF] 0-8 [facility] Lymphocytes Auto (Bld) [#/Vo l]Ordered By: Daily Hart on 10-21-2021 Lymphocytes (Bld) [#/Vol] 1.6 10*3/uL 1.00-4.8 [facility] Lymphocytes/100 WBC Auto (Bl d)Ordered By: [facility] Tanner on 10-21-2021 Lymphocytes/100 WBC (Bld) 23.4 % . [facility] MCH Auto (RBC) [Entitic mass ]Ordered By: Daily Hart on 10-21-2021 MCH (RBC) [Entitic mass] 32.3 pg 24.7-34.3 [facility] MCHC Auto (RBC) [Mass/Vol]Or dered By: Daily Sharmaimore on 10-21-2021 MCHC (RBC) [Mass/Vol] 33.4 g/dL 32.0-35.0 [facility] MCV Auto (RBC) [Entitic vol] Ordered By: Daily Sharmaimore on 10-21-2021 MCV (RBC) [Entitic vol] 96.8 fL 80-100 [facility] Monocytes Auto (Bld) [#/Vol] Ordered By: Daily Sharmaimore on 10-21-2021 Monocytes (Bld) [#/Vol] 0.5 10*3/uL 0.0-0.8 [facility] Monocytes/100 WBC Auto (Bld) Ordered By: Daily Sharmaimore on 10-21-2021 Monocytes/100 WBC (Bld) 7.5 % . [facility] Neutrophils Auto (Bld) [#/Vo l]Ordered By: Dailystanislav Sharmaimore on 10-21-2021 Neutrophils (Bld) [#/Vol] 4.6 10*3/uL 1.8-7.7 [facility] Neutrophils/100 WBC Auto (Bl d)Ordered By: Daily Sharmaimore on 10-21-2021 Neutrophils/100 WBC (Bld) 67.4 % . [facility] Nitrite Test strip Ql (U)Ord ered By: Daily Hart on 10-21-2021 Nitrite Ql (U) Negative Negative [facility] No Panel InformationOrdered By: Daily Hart on 10-21-2021 Estimated GFR () > 60 mL/Min [facility] Comment on above: GFR estimated refere nce range: According to KDOQI guidelines, <60 ml/min/1.73m2 is sufficient to diagnose a patient with chronic kidney disease. Pharmacy Creatinine Clearance (Chem 41.83 [facility] Platelet mean volume Auto (B ld) [Entitic vol]Ordered By: Daily Sharmaimore on 10-21-2021 Platelet mean volume (Bld) [Entitic vol] 8.7 fL 6.3-10.7 [facility] Platelets Auto (Bld) [#/Vol] Ordered By: Daily Sharmaimore on 10-21-2021 Platelets (Bld) [#/Vol] 230 10*3/uL 150-450 [facility] Protein Auto test strip (U) [Mass/Vol]Ordered By: Daily Hart on 10-21-2021 Protein (U) [Mass/Vol] Negative Negative [facility] Protein [Mass/volume] in Ser um or PlasmaOrdered By: Daily Hart on 10-21-2021 Protein [Mass/Vol] 8.1 g/dL 6.1-7.9 [facility] RBC Auto (Bld) [#/Vol]Ordere d By: Daily Hart on 10-21-2021 RBC (Bld) [#/Vol] 4.95 10*6/uL 3.60-5.00 [facility] Serum or plasma alanine owusu otransferase measurement without P-5'-P (enzymatic activiOrdered By: Daily Hart on 10-21-2021 ALT No additional P-5'-P [Catalytic activity/Vol] 19 U/L 10-60 [facility] Serum or plasma albumin/glob ulin mass ratioOrdered By: [facility]isl[facility] 10-21-2021 Albumin/Globulin [Mass ratio] 1.1 {ratio} [facility] Serum or plasma alkaline dulce maria sphatase measurement (enzymatic activity/volume)Ordered By: Daily Hart on 10-21-2021 ALP [Catalytic activity/Vol] 76 U/L 32-92 [facility] Serum or plasma aspartate am inotransferase measurement (enzymatic activity/volume)Ordered By: Daily Hart on 10-21-2021 AST [Catalytic activity/Vol] 27 U/L 10-42 [facility] Serum or plasma calcium silva urement (mass/volume)Ordered By: Daily Hart on 10-21-2021 Calcium [Mass/Vol] 9.6 mg/dL 8.2-10.2 [facility] Serum or plasma chloride hector surement (moles/volume)Ordered By: Daily aHrt on 10-21-2021 Chloride [Moles/Vol] 98 mmol/L 95-114 [place] Serum or plasma glucose silva urement (mass/volume)Ordered By: Daily Hart on 10-21-2021 Glucose [Mass/Vol] 120 mg/dL 70-100 [facility] Comment on above: ADA recommended refe rence [...] plasma potassium me asurement (moles/volume)Ordered By: Daily Hart on 10-21-2021 Potassium [Moles/Vol] 3.9 mmol/L 3.5-5.1 [facility] Serum or plasma sodium measu rement (moles/volume)Ordered By: [facility] on 10-21-2021 Sodium [Moles/Vol] 138 mmol/L 136-146 [facility] Serum or plasma total biliru bin measurement (mass/volume)Ordered By: Daily Hart on 10-21-2021 Bilirubin [Mass/Vol] 0.6 mg/dL 0.3-1.2 [place] Serum or plasma total carbon dioxide measurement (moles/volume)Ordered By: Daily Hart on 10-21-2021 CO2 [Moles/Vol] 29.8 mmol/L 22.0-30.0 [facility] Serum or plasma urea nitroge n measurement (mass/volume)Ordered By: Daily Hart 10-21-2021 Urea nitrogen [Mass/Vol] 22 mg/dL 9-23 [facility] Specific gravity Auto test s trip (U) [Rel density]Ordered By: [facility]islav [facility] on 10-21-2021 Specific gravity (U) [Rel density] 1.006 1.001-1.03 0 [facility] Squamous epithelial cells de tection in urine sediment by light microscopyOrdered By: Daily Hart on 10-21-2021 Epithelial cells.squamous LM Ql (Urine sed) None seen [HPF] 0-2 [facility] Troponin I.cardiac [Mass/vol ume] in Serum or Plasma by High sensitivity methodOrdered By: Daily Hart on 10-21-2021 Troponin I.cardiac High sensitivity method [Mass/Vol] 16 pg/mL 0-15 [facility] Urine bacteria detection by automated methodOrdered By: Daily Hart on 10-21-2021 Bacteria Auto Ql (U) None seen None Seen [place] Urine clarity by refractomet ry automatedOrdered By: Daily Hart on 10-21-2021 Clarity Refractometry automated (U) Clear Clear [facility] Urine glucose measurement by automated test strip (mass/volume)Ordered By: Daily Hart on 10-21-2021 Glucose Auto test strip (U) [Mass/Vol] Normal mg/dL Normal [facility] Urine hemoglobin detection b y automated test stripOrdered By: Daily Hart on 10-21-2021 Hemoglobin Auto test strip Ql (U) Negative Negative [facility] Urine leukocyte esterase det ection by automated test stripOrdered By: Daily Hart on 10-21-2021 Leukocyte esterase Auto test strip Ql (U) 4+ Negative [facility] Urobilinogen Auto test strip (U) [Mass/Vol]Ordered By: Daily Hart on 10-21-2021 Urobilinogen (U) [Mass/Vol] Normal mg/dL Normal [facility] pH Auto test strip (U)Ordere d By: Daily Hart on 10-21-2021 pH (U) 5.5 [pH] 5.0-9.0 [facility] Covid-19 PCR (CVDTB)on 10-07 SARS-CoV-2 (COVID-19) RNA CIERA+probe Ql (Unsp spec) Not detected Normal NOT DETECTED [facility] Comment on above: Result Comment: This test is not yet approved or cleared by the [place] FDA. When there are no FDA-approved or cleared tests available, and other criteria are met, FDA can make tests available under an emergency access mechanism called an Emergency Use Authorization (EUA). The EUA for this test is supported by the [place] of Health and Human Service's (HHS's) declaration [...] SARS-CoV-2. Performed By: #### C VDTBH #### [facility] [address] [place] [address] Dr. Parth Wilson INFLUENZA A AND B AGon 10-20 INFLUENZA A AG Negative Normal NEGATIVE SEE COMMENT [facility] Comment on above: Performed By: #### I NFLUAB #### [facility] [address] [place] [address] Dr. Parth Wilson INFLUENZA B AG Negative Normal NEGATIVE SEE COMMENT [facility] Comment on above: Performed By: #### I NFLUAB #### [facility] [address] [place] [address] Dr. Parth Wilson INTERNAL CONTROLS Within Normal Limits Normal Wi thin Normal Limits [facility] Comment on above: Performed By: #### I NFLUAB #### [facility] [address] [place] [address] Dr. Parth Wilson Cardiovasc Arrhythmia Result son 09-28-2021 Cardiovas Arrhythmia Results Reason For Visit Event Monitor: ERIN is here for the application of a 30 day event monitor in office., Diagnosis: syncope and palps Ordering Physician: Dr. Olivarez Enrollment sent to: [facility] Monitor number [id number] applied. Patient will be returning SEFERINO by [...] Future Appointments Date/TimeProviderSpecialty Site 11/28/2021 08:20 Akhil Lay, [id number] [facility] 2 [address] 250 DO Signatures Electronically signed by : Akhil Olivarez MD; Oct 26 2021 10:03AM EST (Author) Normal [facility] Office Visit (Cardiology)on 09-21-2021 Follow-up visit Diagnoses/Problems [...] Patient Instructions By signing my name below, Adrianne Moore LPN. ,Anastacio, attest that this documentation has been prepared [...] TabletTAKE 1 TABLET DAILY DIRECTED. Managed at [facility]. Allergies Medication Motrin TABS Allergy; Hives;; [...] Signs Recorded: 21Sep2021 02:43PM Heart Rate66, Apical Lqlvsfks097, RUE, Sitting Zecwnixyc89, RUE, Sitting Height5 ft 2 in Bgfqgh990 lb BMI Jbxhwhkgas05.84 kg/m2 BSA Calculated1.85 Tobacco Useb) No PHQ-2 #1. Over the last 2 weeks have you felt down, depressed or hopeless? (If yes, answer PHQ-9 below)No PHQ-2 #2. Over the last 2 weeks have you felt little interest or pleasure in doing things? (If yes, answer PHQ-9 below)No Fall Screeningb) One or more fall (more content not included)... Normal [facility] Tobacco Screening.on 022 Adult depression screening assessment [facility] Y[facility] Work Phone: Fall risk assessment b) One or more fall s in the last year [facility] [employer] 250 DO Work Phone: Tobacco use status CPHS b) [facility] 250 DO Work Phone: No Panel Informationon 06-30 9.2\S\9.2 Normal 8.2-10.2 [facility] [employer] 600 DO Work Phone: 28.3\S\28.3 Normal 22.0-30.0 [facility] [employer] 600 DO Work Phone: 99\S\99 Normal 95-114 [facility] Adiel spicer 600 DO Work Phone: 4.6\S\4.6 Normal 3.5-5.1 [facility] Adiel spicer 600 DO Work Phone: 138\S\138 Normal 136-146 [facility] Adiel spicer 600 DO Work Phone: > 60 Normal [facility] Adiel spicer 600 DO Work Phone: Comment on above: GFR estimated refere nce range: According to KDOQI guidelines, <60 ml/min/1.73m2 is sufficient to diagnose a patient with chronic kidney disease. 52\S\52 Normal [facility] Adiel spicer 600 DO Work Phone: 1.00\S\1.00 Normal 0.44-1.03 [facility] Adiel spicer 600 DO Work Phone: 22\S\22 Normal 9-23 [facility] Adiel spicer 600 DO Work Phone: 91\S\91 Normal 70-100 [facility] Adiel spicer 600 DO Work Phone: Comment on above: Random Glucose Refer ence Range is dependent on time and content of last meal. Glucose of more than 200 mg/dL in a nonstressed, ambulatory subject supports the diagnosis of Diabetes Mellitus. ADA recommended reference range 24\S\24 Normal 10-42 [facility] Adiel spicer 600 DO Work Phone: 2.98\S\2.98 Normal 0.45-5.33 [facility] Adiel spicer 600 DO Work Phone: Comment on above: PERFORMED BY:[address] [address] [place] [place], [place] [id number] MEDICAL DIRECTORGIULIA VALERIO M.D. Radiologyon 06-30-2021 XR Chest 2 Views Normal [facility] Adiel spicer 600 DO Work Phone: Tobacco Screening.on 022 Tobacco use status CPHS b) No -[facility]-Sandu ayde 250 DO Work Phone: Affirm DNA Panelon 7 Albina DNA Negative Normal Negative [facility] Comment on above: Result Comment: The [...] organism are common. Performed By: #### C [id number] ####[address] [place] [address] Gardnerella DNA Positive Abnormal Negative [facility] Comment on above: Performed By: #### C [id number] ####[address] [place] [address] Trichomonas DNA Negative Normal Negative [facility] Comment on above: Performed By: #### C [id number] ####[address] [address] Ambulatory Patient Education on 12-22-2016 Ambulatory Patient [...] the pelvic organ or organs occurring again? 1302-1947 [employer] [address] [place] [address]. All rights reserved. This information is not [...] the pelvic organ or organs occurring again? 3070-0849 [employer] [address] [place] [address]. All rights reserved. This information is not [...] you'll meet with the anesthesiologist or nurse eco industrial development consultant. He or she can tell you what [...] nearby pelvic structures? Trouble urinating? Urinary urgency? [id number] Outcome Referrals. [address] [place] [address]. All rights reserved. This information is not intended as a substitute for professional medical care. Always follow your healthcare professional's instructions. Normal [facility] Gynecology Office/Clinic Not larry 12-22-2016 Gynecology Office/Clinic Note Chief Complaint ConsultationHistory of Present Illness Abnormal vaginal discharge: Yes Pelvic pain: No Spotting: No Vaginal itch/burning/odor: Yes Additional HPI details: 81y/o prolapse. Pt has a pessary. States causes infection. She sees MANUAL TRAINING TEACHER q 1 months. She want to only [...] Additional Vitals Body Mass Index Measured: 35.59 kg/n8Dxofviglmy/Plan Cystocele Ordered: 99146 [facility] OFFICE OP VISIT NEW LVL 2 Clinic Rectocele Uterine prolapse Attempting a cube pessary - will call Ashely Villarreal NP and see if she can followup with her in 1 wk - have given the patient info on surgery. Patient is very leery regarding surgery due to the anesthesia and she does have cardiac issues - multiple stents Ordered: [id number] [facility] OFFICE OP VISIT NEW LVL 2 Clinic [...] Justin gillespie DO 12/22/16 17:35 EDT Normal [facility] Vital Signs Date Time Vital Sign Value Performing Clinician Facility 07-31-2023 21:15-0400 Diastolic blood pressure 80 mm[Hg] MD Los Chaudhary Work Phone: [facility] 07-31-2023 21:15-0400 Heart rate 94 /min MD Los Chaudhary Work Phone: [facility] 07-31-2023 21:15-0400 Respiratory rate 20 /min MD Los Chaudhary Work Phone: [facility] 07-31-2023 21:15-0400 SaO2% (BldA) [Mass fraction] 97 % MD Los Chaudhary Work Phone: [facility] 07-31-2023 21:15-0400 Systolic blood pressure 136 mm[Hg] MD Los Chaudhary Work Phone: [facility] 07-31-2023 18:10-0400 Body temperature 98.6 [degF] MD Los Chaudhary Work Phone: [facility] 07-31-2023 15:08-0400 Body height 157.48 cm MD Los Chaudhary Work Phone: [facility] 07-31-2023 15:08-0400 Body weight 77.11 kg MD Los Chaudhary Work Phone: [facility] 07-13-2023 09:53-0400 Body height 157.48 cm MD Los Chaudhary Work Phone: [facility] 07-13-2023 09:53-0400 Body temperature 97.9 [degF] MD Los Chaudhary Work Phone: [facility] 07-13-2023 09:53-0400 Body weight 77.11 kg MD Los Chaudhary Work Phone: [facility] 07-13-2023 09:53-0400 Diastolic blood pressure 62 mm[Hg] MD Los Chaudhary Work Phone: [facility] 07-13-2023 09:53-0400 Heart rate 103 /min MD Los Chaudhary Work Phone: [facility] 07-13-2023 09:53-0400 Respiratory rate 16 /min MD Los Chaudhary Work Phone: [facility] 07-13-2023 09:53-0400 SaO2% (BldA) [Mass fraction] 98 % MD Los Chaudhary Work Phone: [facility] 07-13-2023 09:53-0400 Systolic blood pressure 103 mm[Hg] MD Los Chaudhary Work Phone: [facility] 07-12-2023 16:25-0400 Body height 127 cm MD Los Chaudhary Work Phone: [facility] 07-12-2023 16:25-0400 Body mass index (BMI) [Ratio] 50.4 kg/m2 MD Los Chaudhary Work Phone: [facility] 07-12-2023 16:25-0400 Body temperature 98.2 [degF] MD Los Chaudhary Work Phone: [facility] 07-12-2023 16:25-0400 Body weight 81.3 kg MD Los Chaudhary Work Phone: [facility] 07-12-2023 16:25-0400 Diastolic blood pressure 89 mm[Hg] MD Los Chaudhary Work Phone: [facility] 07-12-2023 16:25-0400 Heart rate 112 /min MD Los Chaudhary Work Phone: [facility] 07-12-2023 16:25-0400 Respiratory rate 16 /min MD Los Chaudhary Work Phone: [facility] 07-12-2023 16:25-0400 SaO2% (BldA) [Mass fraction] 99 % MD Los Chaudhary Work Phone: [facility] 07-12-2023 16:25-0400 Systolic blood pressure 140 mm[Hg] MD Los Chaudhary Work Phone: [facility] 02-26-2023 13:03-0500 Body height 157.5 cm Mickey James APRN-SHIP DESIGN TEACHER Work Phone: [facility] 02-26-2023 13:03-0500 Body mass index (BMI) [Ratio] 33.11 kg/m2 Mickey James AUDIENCE COORDINATOR-SHIP DESIGN TEACHER Work Phone: [facility] 02-26-2023 13:03-0500 Body weight 82.1 kg Mickey James AUDIENCE COORDINATOR-SHIP DESIGN TEACHER Work Phone: [facility] 02-26-2023 13:03-0500 Diastolic blood pressure 74 mm[Hg] Mickey James AUDIENCE COORDINATOR-SHIP DESIGN TEACHER Work Phone: [facility] 02-26-2023 13:03-0500 Heart rate 60 /min Mickey James AUDIENCE COORDINATOR-SHIP DESIGN TEACHER Work Phone: [facility] 02-26-2023 13:03-0500 Systolic blood pressure 138 mm[Hg] Mickey James AUDIENCE COORDINATOR-SHIP DESIGN TEACHER Work Phone: [facility] 12-13-2022 10:03-0400 Body temperature 97.11 [degF] Shweta Sol MD Work Phone: [facility] 12-13-2022 10:03-0400 Diastolic blood pressure 65 mm[Hg] Shweta Sol MD Work Phone: [facility] 12-13-2022 10:03-0400 Heart rate 60 /min Shweta Sol MD Work Phone: [facility] 12-13-2022 10:03-0400 Systolic blood pressure 165 mm[Hg] Shweta Sol MD Work Phone: [facility] 11-29-2022 14:52-0400 Body height 157.48 cm Los M Hoy Work Phone: [facility] 250 DO Work Phone: 11-29-2022 14:52-0400 Body mass index (BMI) [Ratio] Medical Reason Not Done Los M Hoy Work Phone: [facility] 250 DO Work Phone: 11-29-2022 14:52-0400 Body temperature 97.7 [degF] Los M Hoy Work Phone: [facility] 250 DO Work Phone: 11-29-2022 14:52-0400 Diastolic blood pressure 84 mm[Hg] Los M Hoy Work Phone: [facility] 250 DO Work Phone: 11-29-2022 14:52-0400 Heart rate 66 /min Losgovind Chaudhary Work Phone: [facility] 250 DO Work Phone: 11-29-2022 14:52-0400 Systolic blood pressure 130 mm[Hg] Los Chaudhary Work Phone: [facility] [place] 250 DO Work Phone: 11-24-2022 16:00-0400 Body temperature 97.8 [degF] MD Los Chaudhary Work Phone: [facility] 11-24-2022 16:00-0400 Diastolic blood pressure 73 mm[Hg] MD Los Chaudhary Work Phone: [facility] 11-24-2022 16:00-0400 Heart rate 60 /min MD Los Chaudhary Work Phone: [facility] 11-24-2022 16:00-0400 Respiratory rate 16 /min MD Los Chaudhary Work Phone: [facility] 11-24-2022 16:00-0400 SaO2% (BldA) [Mass fraction] 99 % MD Los Chaudhary Work Phone: [facility] 11-24-2022 16:00-0400 Systolic blood pressure 142 mm[Hg] MD Los Chaudhary Work Phone: [facility] 11-24-2022 06:44-0400 Body weight 88.4 kg MD Los Chaudhary Work Phone: [facility] 11-22-2022 11:41-0400 Inhaled oxygen flow rate 6 L/min MD Los Chaudhary Work Phone: [facility] 11-22-2022 10:22-0400 Body height 157.48 cm MD Los Chaudhary Work Phone: [facility] 11-22-2022 10:22-0400 Body mass index (BMI) [Ratio] 36.5 kg/m2 MD Los Chaudhary Work Phone: [facility] 11-17-2022 21:59-0400 Diastolic blood pressure 77 mm[Hg] MD Los Chaudhary Work Phone: [facility] 11-17-2022 21:59-0400 Heart rate 67 /min MD Los Chaudhary Work Phone: [facility] 11-17-2022 21:59-0400 Systolic blood pressure 190 mm[Hg] MD Los Chaudhary Work Phone: [facility] 11-17-2022 21:18-0400 Body temperature 97.7 [degF] MD Los Chaudhary Work Phone: [facility] 11-17-2022 21:18-0400 Respiratory rate 16 /min MD Los Chaudhary Work Phone: [facility] 11-17-2022 21:18-0400 SaO2% (BldA) [Mass fraction] 98 % MD Los Chaudhary Work Phone: [facility] 11-17-2022 18:03-0400 Body height 157.48 cm MD Los Chaudhary Work Phone: [facility] 11-17-2022 18:03-0400 Body weight 81.64 kg MD Los Chaudhary Work Phone: [facility] 10-30-2022 11:29-0400 Body height 157.48 cm Los Willnhi Work Phone: [facility] [employer] 600 DO Work Phone: 10-30-2022 11:29-0400 Body mass index (BMI) [Ratio] 34.57 kg/m2 Los Duran Sumany Work Phone: [facility] [employer] 600 DO Work Phone: 10-30-2022 11:29-0400 Body surface area Derived from formula 1.87 m2 Los Roger Sumany Work Phone: [facility] [employer] 600 DO Work Phone: 10-30-2022 11:29-0400 Body weight 85.73 kg Los M Hoy Work Phone: [facility] 600 DO Work Phone: 10-30-2022 11:29-0400 Diastolic blood pressure 68 mm[Hg] Los M Hoy Work Phone: [facility] 600 DO Work Phone: 10-30-2022 11:29-0400 Heart rate 60 /min Los Roger Hoy Work Phone: [facility] 600 DO Work Phone: 10-30-2022 11:29-0400 Systolic blood pressure 170 mm[Hg] Los M Hoy Work Phone: [facility] 600 DO Work Phone: 09-25-2022 18:30-0400 Diastolic blood pressure 82 mm[Hg] RECREATION COUNSELOR-C Summer Yaw Work Phone: [facility] 09-25-2022 18:30-0400 Heart rate 57 /min RECREATION COUNSELOR-C Summer Yaw Work Phone: [facility] 09-25-2022 18:30-0400 Respiratory rate 17 /min RECREATION COUNSELOR-C Summer Yaw Work Phone: [facility] 09-25-2022 18:30-0400 SaO2% (BldA) [Mass fraction] 99 % RECREATION COUNSELOR-C Summer Yaw Work Phone: [facility] 09-25-2022 18:30-0400 Systolic blood pressure 132 mm[Hg] RECREATION COUNSELOR-C Summer Yaw Work Phone: [facility] 09-25-2022 13:00-0400 Body temperature 98 [degF] RECREATION COUNSELOR-C Summer Yaw Work Phone: [facility] 09-25-2022 08:58-0400 Body height 157.48 cm RECREATION COUNSELOR-C Summer Yaw Work Phone: [facility] 09-25-2022 08:58-0400 Body weight 84 kg RECREATION COUNSELOR-C Summer Tidwell Work Phone: [facility] 09-21-2022 14:11-0400 Body height 157.48 cm Los M Hoy Work Phone: [facility] [place] 250 DO Work Phone: 09-21-2022 14:11-0400 Body mass index (BMI) [Ratio] 34.02 kg/m2 Los M Hoy Work Phone: [facility] 250 DO Work Phone: 09-21-2022 14:11-0400 Body surface area Derived from formula 1.85 m2 Los M Hoy Work Phone: [facility] 250 DO Work Phone: 09-21-2022 14:11-0400 Body weight 84.37 kg Los M Hoy Work Phone: [facility] 250 DO Work Phone: 09-21-2022 14:11-0400 Diastolic blood pressure 68 mm[Hg] Los M Hoy Work Phone: [facility] [place] 250 DO Work Phone: 09-21-2022 14:11-0400 Heart rate 56 /min Los M Hoy Work Phone: [facility] 250 DO Work Phone: 09-21-2022 14:11-0400 Systolic blood pressure 146 mm[Hg] Los M Hoy Work Phone: [facility] 250 DO Work Phone: 09-01-2022 14:07-0400 Body height 157.48 cm Los M Hoy Work Phone: [facility] 250 DO Work Phone: 09-01-2022 14:07-0400 Body mass index (BMI) [Ratio] 32.74 kg/m2 Los M Hoy Work Phone: [facility] 250 DO Work Phone: 09-01-2022 14:07-0400 Body surface area Derived from formula 1.82 m2 Los M Hoy Work Phone: [facility] [place] 250 DO Work Phone: 09-01-2022 14:07-0400 Body weight 81.19 kg Los M Hoy Work Phone: [facility] [place] 250 DO Work Phone: 09-01-2022 14:07-0400 Diastolic blood pressure 60 mm[Hg] Los M Hoy Work Phone: [facility] 250 DO Work Phone: 09-01-2022 14:07-0400 Heart rate 54 /min Los M Hoy Work Phone: [facility] 250 DO Work Phone: 09-01-2022 14:07-0400 Systolic blood pressure 150 mm[Hg] Los M Hoy Work Phone: [facility] 250 DO Work Phone: 08-02-2022 13:03-0400 Body height 157.48 cm Los M Hoy Work Phone: [facility] [facility] DO Work Phone: 08-02-2022 13:03-0400 Body mass index (BMI) [Ratio] 33.47 kg/m2 Los M Hoy Work Phone: [facility] [place] 250 DO Work Phone: 08-02-2022 13:03-0400 Body surface area Derived from formula 1.84 m2 Los M Hoy Work Phone: [facility] [place] 250 DO Work Phone: 08-02-2022 13:03-0400 Body weight 83.01 kg Los Roger Hoy Work Phone: [facility] [place] 250 DO Work Phone: 08-02-2022 13:03-0400 Diastolic blood pressure 58 mm[Hg] Los Duran Hoy Work Phone: [facility] 250 DO Work Phone: 08-02-2022 13:03-0400 Heart rate 56 /min Los Roger Hoy Work Phone: [facility] 250 DO Work Phone: 08-02-2022 13:03-0400 Systolic blood pressure 128 mm[Hg] Los Duran Hoy Work Phone: [facility] [place] 250 DO Work Phone: 07-05-2022 09:29-0400 Body height 157.48 cm Los Roger Hoy Work Phone: [facility] 250 DO Work Phone: 07-05-2022 09:29-0400 Body mass index (BMI) [Ratio] 32.19 kg/m2 Los Duran Hoy Work Phone: [facility] 250 DO Work Phone: 07-05-2022 09:29-0400 Body surface area Derived from formula 1.81 m2 Los Roger Hoy Work Phone: [facility] [place] 250 DO Work Phone: 07-05-2022 09:29-0400 Body weight 79.83 kg Los Roger Hoy Work Phone: [facility] 250 DO Work Phone: 07-05-2022 09:29-0400 Diastolic blood pressure 60 mm[Hg] Los Duran Hoy Work Phone: [facility] [place] 250 DO Work Phone: 07-05-2022 09:29-0400 Heart rate 61 /min Los Duran Hoy Work Phone: [facility] [place] 250 DO Work Phone: 07-05-2022 09:29-0400 Systolic blood pressure 142 mm[Hg] Los Duran Hoy Work Phone: [facility] [place] 250 DO Work Phone: 02-07-2022 10:11-0400 Body height 157.48 cm Summer S Yaw Work Phone: [facility] [place] 250 DO Work Phone: 02-07-2022 10:11-0400 Body mass index (BMI) [Ratio] 33.84 kg/m2 Summer S Yaw Work Phone: [facility] [place] 250 DO Work Phone: 02-07-2022 10:11-0400 Body surface area Derived from formula 1.85 m2 Summer S Yaw Work Phone: [facility] 250 DO Work Phone: 02-07-2022 10:11-0400 Body weight 83.92 kg Summer S Yaw Work Phone: [facility] [place] 250 DO Work Phone: 02-07-2022 10:11-0400 Diastolic blood pressure 50 mm[Hg] Summer S Yaw Work Phone: [facility] 250 DO Work Phone: 02-07-2022 10:11-0400 Heart rate 62 /min Summer S Yaw Work Phone: [facility] 250 DO Work Phone: 02-07-2022 10:11-0400 Systolic blood pressure 104 mm[Hg] Summer S Yaw Work Phone: [facility] 250 DO Work Phone: 01-10-2022 20:30-0400 Diastolic blood pressure 63 mm[Hg] RECREATION COUNSELOR-C Summer Yaw Work Phone: [facility] 01-10-2022 20:30-0400 Heart rate 69 /min RECREATION COUNSELOR-C Summer Yaw Work Phone: [facility] 01-10-2022 20:30-0400 Respiratory rate 20 /min RECREATION COUNSELOR-C Summer Yaw Work Phone: [facility] 01-10-2022 20:30-0400 SaO2% (BldA) [Mass fraction] 97 % RECREATION COUNSELOR-C Summer Yaw Work Phone: [facility] 01-10-2022 20:30-0400 Systolic blood pressure 140 mm[Hg] RECREATION COUNSELOR-C Summer Yaw Work Phone: [facility] 01-10-2022 14:51-0400 Body height 157.48 cm RECREATION COUNSELOR-C Summer Yaw Work Phone: [facility] 01-10-2022 14:51-0400 Body temperature 97.7 [degF] RECREATION COUNSELOR-C Summer Yaw Work Phone: [facility] 01-10-2022 14:51-0400 Body weight 78.75 kg RECREATION COUNSELOR-C Summer Yaw Work Phone: [facility] 11-28-2021 08:51-0400 Diastolic blood pressure 60 mm[Hg] Summer S Yaw Work Phone: [facility] [place] 250 DO Work Phone: 11-28-2021 08:51-0400 Systolic blood pressure 152 mm[Hg] Summer S Yaw Work Phone: [facility] [place] 250 DO Work Phone: 11-28-2021 08:22-0400 Body height 157.48 cm Summer S Yaw Work Phone: [facility] 250 DO Work Phone: 11-28-2021 08:22-0400 Body mass index (BMI) [Ratio] 31.64 kg/m2 Summer S Yaw Work Phone: [facility] 250 DO Work Phone: 11-28-2021 08:22-0400 Body surface area Derived from formula 1.8 m2 Summer S Yaw Work Phone: [facility] [place] 250 DO Work Phone: 11-28-2021 08:22-0400 Body weight 78.47 kg Summer S Yaw Work Phone: [facility] 250 DO Work Phone: 11-28-2021 08:22-0400 Diastolic blood pressure 78 mm[Hg] Summer S Yaw Work Phone: [facility] [place] 250 DO Work Phone: 11-28-2021 08:22-0400 Heart rate 72 /min Summer S Yaw Work Phone: [facility] [place] 250 DO Work Phone: 11-28-2021 08:22-0400 Systolic blood pressure 152 mm[Hg] Summer S Yaw Work Phone: [facility] 250 DO Work Phone: 10-29-2021 12:14-0400 Diastolic blood pressure 68 mm[Hg] RECREATION COUNSELOR-C Summer Yaw Work Phone: [facility] 10-29-2021 12:14-0400 Heart rate 66 /min RECREATION COUNSELOR-C Summer Yaw Work Phone: [facility] 10-29-2021 12:14-0400 Respiratory rate 18 /min RECREATION COUNSELOR-C Summer Yaw Work Phone: [facility] 10-29-2021 12:14-0400 SaO2% (BldA) [Mass fraction] 96 % RECREATION COUNSELOR-C Summer Yaw Work Phone: [facility] 10-29-2021 12:14-0400 Systolic blood pressure 134 mm[Hg] RECREATION COUNSELOR-C Summer Yaw Work Phone: [facility] 10-29-2021 03:21-0400 Body temperature 98 [degF] RECREATION COUNSELOR-C Summer Yaw Work Phone: [facility] 10-28-2021 13:27-0400 0 1 Summer S Yaw Work Phone: [facility] 250 DO Work Phone: Comment on above: [id number] 10-28-2021 08:00-0400 Body height 157.48 cm RECREATION COUNSELOR-C Summerbridget Garibaymer Work Phone: [facility] 10-28-2021 08:00-0400 Body weight 124.2 kg RECREATION COUNSELOR-C Summer Yaw Work Phone: [facility] 10-28-2021 05:55-0400 Diastolic blood pressure 65 mm[Hg] RECREATION COUNSELOR-C Summer Yaw Work Phone: [facility] 10-28-2021 05:55-0400 Heart rate 61 /min RECREATION COUNSELOR-C Summer Yaw Work Phone: [facility] 10-28-2021 05:55-0400 Respiratory rate 18 /min RECREATION COUNSELOR-C Summer Yaw Work Phone: [facility] 10-28-2021 05:55-0400 SaO2% (BldA) [Mass fraction] 96 % RECREATION COUNSELOR-C Summer Yaw Work Phone: [facility] 10-28-2021 05:55-0400 Systolic blood pressure 148 mm[Hg] RECREATION COUNSELOR-C Summer Yaw Work Phone: [facility] 10-28-2021 00:20-0400 Body height 157.48 cm RECREATION COUNSELOR-C Summer Yaw Work Phone: [facility] 10-28-2021 00:20-0400 Body temperature 98 [degF] RECREATION COUNSELOR-C Summer Yaw Work Phone: [facility] 10-28-2021 00:20-0400 Body weight 124.73 kg RECREATION COUNSELOR-C Summer Yaw Work Phone: [facility] 10-25-2021 14:50-0400 Diastolic blood pressure 72 mm[Hg] RECREATION COUNSELOR-C Summer Yaw Work Phone: [facility] 10-25-2021 14:50-0400 Heart rate 60 /min RECREATION COUNSELOR-C Summer Yaw Work Phone: [facility] 10-25-2021 14:50-0400 Respiratory rate 18 /min RECREATION COUNSELOR-C Summer Yaw Work Phone: [facility] 10-25-2021 14:50-0400 SaO2% (BldA) [Mass fraction] 95 % RECREATION COUNSELOR-C Summer Yaw Work Phone: [facility] 10-25-2021 14:50-0400 Systolic blood pressure 168 mm[Hg] RECREATION COUNSELOR-C Summer Yaw Work Phone: [facility] 10-21-2021 15:19-0400 Diastolic blood pressure 87 mm[Hg] RECREATION COUNSELOR-C Summer Yaw Work Phone: [facility] 10-21-2021 15:19-0400 Heart rate 60 /min RECREATION COUNSELOR-C Summer Yaw Work Phone: [facility] 10-21-2021 15:19-0400 Respiratory rate 18 /min RECREATION COUNSELOR-C Summer Yaw Work Phone: [facility] 10-21-2021 15:19-0400 SaO2% (BldA) [Mass fraction] 98 % RECREATION COUNSELOR-C Summer Yaw Work Phone: [facility] 10-21-2021 15:19-0400 Systolic blood pressure 194 mm[Hg] RECREATION COUNSELOR-C Summer Yaw Work Phone: [facility] 10-21-2021 09:09-0400 Body height 157.48 cm RECREATION COUNSELOR-C Summer Yaw Work Phone: [facility] 10-21-2021 09:09-0400 Body mass index (BMI) [Ratio] 34.4 kg/m2 RECREATION COUNSELOR-C Summer Yaw Work Phone: [facility] 10-21-2021 09:09-0400 Body weight 85.3 kg RECREATION COUNSELOR-C Summer Yaw Work Phone: [facility] 10-21-2021 09:08-0400 Body temperature 97.1 [degF] RECREATION COUNSELOR-C Summer Yaw Work Phone: [facility] 09-21-2021 14:43-0400 Body height 157.48 cm Summer S Yaw Work Phone: [facility] [place] 250 DO Work Phone: 09-21-2021 14:43-0400 Body mass index (BMI) [Ratio] 33.84 kg/m2 Summer S Yaw Work Phone: [facility] 250 DO Work Phone: 09-21-2021 14:43-0400 Body surface area Derived from formula 1.85 m2 Summer S Yaw Work Phone: [facility] [place] 250 DO Work Phone: 09-21-2021 14:43-0400 Body weight 83.92 kg Summer S Yaw Work Phone: [facility] 250 DO Work Phone: 09-21-2021 14:43-0400 Diastolic blood pressure 62 mm[Hg] Summer S Yaw Work Phone: [facility] [place] 250 DO Work Phone: 09-21-2021 14:43-0400 Heart rate 66 /min Summer S Yaw Work Phone: [facility] [place] 250 DO Work Phone: 09-21-2021 14:43-0400 Systolic blood pressure 138 mm[Hg] Summer S Yaw Work Phone: [facility] 250 DO Work Phone: 04-15-2021 13:39-0500 Body height 157.48 cm Summer S Yaw Work Phone: [facility] [place] 250 DO Work Phone: 04-15-2021 13:39-0500 Body mass index (BMI) [Ratio] 32.74 kg/m2 Summer S Yaw Work Phone: [facility] [place] 250 DO Work Phone: 04-15-2021 13:39-0500 Body surface area Derived from formula 1.82 m2 Summer S Yaw Work Phone: [facility] 250 DO Work Phone: 04-15-2021 13:39-0500 Body weight 81.19 kg Summer S Yaw Work Phone: [facility] 250 DO Work Phone: 04-15-2021 13:39-0500 Diastolic blood pressure 69 mm[Hg] Summer S Yaw Work Phone: [facility] 250 DO Work Phone: 04-15-2021 13:39-0500 Heart rate 73 /min Summer S Yaw Work Phone: [facility] [place] 250 DO Work Phone: 04-15-2021 13:39-0500 Systolic blood pressure 129 mm[Hg] Summer S Yaw Work Phone: [facility] [place] 250 DO Work Phone: Encounters Encounter Date Encounter Type Care Provider Facility Start: 08-18-2023 End: 08-18-2023 Emergency department patient visit Kwaku Santamaria Facility:[facility] Start: 08-17-2023 End: 08-17-2023 ambulatory Akhil Mcintyreadore Facility:[facility] Start: 08-17-2023 End: 08-17-2023 ambulatory MD Los Chaudhary Work Phone: [facility] Work Phone: Start: 08-17-2023 End: 08-17-2023 Patient encounter procedure MD Los Chaudhary Work Phone: [facility]-Pacemaker Check Start: 07-31-2023 End: 07-31-2023 Emergency department patient visit Los Chaudhary Facility:[facility] Start: 07-31-2023 End: 07-31-2023 Emergency department patient visit MD Los Chaudhary Work Phone: [facility]-Emergency Room Work Phone: Start: 07-26-2023 End: 07-26-2023 ambulatory LOS CHAUDHARY Facility:[facility] Start: 07-26-2023 End: 07-26-2023 Patient encounter procedure Shweta Sol MD Work Phone: Plastic Surgery Comment on above: Post-operative state (Primary Dx); Alvarado's palsy Start: 07-13-2023 End: 07-13-2023 Emergency department patient visit Los Chaudhary Facility:[facility] Start: 07-13-2023 End: 07-13-2023 Emergency department patient visit MD Los Chaudhary Work Phone: [facility]-Emergency Room Work Phone: Start: 07-12-2023 End: 07-12-2023 ambulatory MD Los Chaudhary Work Phone: [facility] Work Phone: Start: 07-12-2023 End: 07-12-2023 Patient encounter procedure MD Los Chaudhary Work Phone: [facility] Work Phone: Start: 05-22-2023 End: 05-22-2023 ambulatory Akhil Olivarez Facility:[facility] Start: 05-22-2023 End: 05-22-2023 ambulatory MD Los Chaudhary Work Phone: [facility] Work Phone: Start: 05-22-2023 End: 05-22-2023 Patient encounter procedure MD Los Chaudhary Work Phone: [facility]-Pacemaker Check Start: 05-21-2023 End: 05-21-2023 ambulatory LOS CHAUDHARY Facility:[facility] Start: 05-21-2023 End: 05-21-2023 Patient encounter procedure Rosalva Lemos APRN.SHIP DESIGN TEACHER Work Phone: Plastic Surgery Comment on above: Post-operative state (Primary Dx) Start: 05-15-2023 End: 05-15-2023 ambulatory Akhil Olivarez Facility:[facility] Start: 05-15-2023 End: 05-15-2023 Patient encounter procedure MD Los Chaudhary Work Phone: [facility]-XRay [facility] Work Phone: Start: 04-30-2023 End: 04-30-2023 ambulatory LOS CHAUDHARY Facility:[facility] Start: 04-24-2023 End: 04-24-2023 ambulatory SHWETA SOL Facility:[facility] Start: 03-30-2023 End: 03-31-2023 ambulatory SELF REFERRAL Facility[place] [place] Start: 03-30-2023 End: 03-30-2023 Patient encounter procedure SELF REFERRAL [facility] Start: 03-29-2023 End: 03-29-2023 ambulatory SHWETA SOL Facility:[facility] Start: 03-29-2023 End: 03-29-2023 ambulatory SHWETA SOL Facility:[facility] Start: 03-29-2023 Encounter for other preprocedural examination SHWETA SOL [facility] Start: 03-21-2023 Telephone encounter Shweta argueta MD Work Phone: Plastic Surgery Comment on above: General Questions Start: 02-26-2023 End: 02-26-2023 ambulatory MICKEY Snu [facility] Ambulatory Start: 02-26-2023 End: 02-26-2023 Office outpatient visit 15 minutes Mickey Sun [facility] AUDIENCE COORDINATOR-SHIP DESIGN TEACHER Work Phone: [facility] Comment on above: Arteriosclerosis of coronary artery (Primary Dx); Paroxysmal atrial fibrillation (CMS/HCC); 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; Pacemaker; Essential hypertension; Statin intolerance; High risk medication use; BMI 34.0-34.9,adult Start: 02-19-2023 End: 02-19-2023 ambulatory Akhil Olivarez Facility:[facility] Start: 02-19-2023 End: 02-19-2023 ambulatory MD Los Chaudhary Work Phone: [facility] Work Phone: Start: 02-19-2023 End: 02-19-2023 Patient encounter procedure MD Los Chaudhary Work Phone: [facility]-Pacemaker Check Start: 01-01-2023 Telephone encounter Los Chaudhary Work Phone: [facility] [place] 250 DO Work Phone: Start: 12-29-2022 Chart Update Los Chaudhary Work Phone: [facility] [place] 250 DO Work Phone: Start: 12-14-2022 End: 12-14-2022 ambulatory Akhil Olivarez Facility:[facility] Start: 12-14-2022 End: 12-14-2022 ambulatory MD Los Chaudhary Work Phone: [facility] Work Phone: Start: 12-14-2022 End: 12-14-2022 Patient encounter procedure MD Los Chaudhary Work Phone: [facility]-XRay [facility] Work Phone: Start: 12-13-2022 End: 12-14-2022 ambulatory LOS CHAUDHARY Facility:[facility] Start: 12-13-2022 End: 12-13-2022 Patient encounter procedure Shweta Sol MD Work Phone: Plastic Surgery Comment on above: Alvarado's palsy (Primar y Dx) Start: 12-04-2022 Patient encounter procedure Do angel Chaudhary Work Phone: -[facility] 600 DO Work Phone: Start: 11-29-2022 Postop follow up vis it related to original px Los Chaudhary Work Phone: [facility] 250 DO Work Phone: Start: 11-29-[address] Akhil Olivarez II Facility: Start: 11-23-[address] Los Chaudhary Facility:[id number] Start: 11-23-[address] Los Chaudhary Facility:[id number] Start: 11-22-[address] Akhil Olivarez II Facility:[id number] Start: 11-22-2022 SURGNON, Provider: Akhil Olivarez, Status: Pen, Time: 10:00 AM Los Chaudhary Work Phone: [facility] [place] 250 DO Work Phone: Start: 11-21-[address] Akhil Michel Facility:[id number] Start: 11-21-[address] Los Chaudhary Facility:[id number] Start: 11-20-2022 Telephone encounter Los Chaudhary Work Phone: [facility] [place] 250 DO Work Phone: Start: 11-20-[address] Los Chaudhary Facility:[id number] Start: 11-19-2022 End: 11-24-2022 Evaluation and management of inpatient Los Chaudhary Facility:[facility] Start: 11-19-2022 End: 11-24-2022 Evaluation and management of inpatient MD Los Chaudhary Work Phone: [facility] [place] [facility] Work Phone: Start: 11-19-[address] Los Chaudhary Facility:[id number] Start: 11-18-[address] Los Chaudhary Facility:[id number] Start: 11-17-2022 Evaluation and manag ement of inpatient MD Los Chaudhary Work Phone: [facility] [place] [facility] Work Phone: Start: 11-17-2022 observation encounter MD Aviva Chaudhary Work Phone: [facility] Work Phone: Start: 11-09-2022 Message Los Chaudhary Work Phone: [facility] 600 DO Work Phone: Start: 10-30-[address] Akhil amato [facility] Facility: Start: 10-08-2022 AUDIT Los Chaudhary Work Phone: [facility] 250 DO Work Phone: Start: 09-25-2022 End: 09-25-[address] Akhil Michel Facility:[id number] Start: 09-25-2022 End: 09-25-2022 Admission to same day surgery center RECREATION COUNSELOR-C Summer Tidwell Work Phone: [facility]-Carburetor Expert Work Phone: Start: 09-25-2022 End: 09-25-2022 ambulatory RECREATION COUNSELOR-C Summer Tidwell Work Phone: [facility] Work Phone: Start: 09-22-2022 Chart Update Los Chaudhary Work Phone: [facility] [place] [facility] 250 DO Work Phone: Start: 09-22-2022 End: 09-22-2022 ambulatory Los M Hoy Facility:[facility] Start: 09-22-2022 End: 09-22-2022 ambulatory RECREATION COUNSELOR-C Summer Tidwell Work Phone: [facility] Work Phone: Start: 09-22-2022 End: 09-22-2022 Patient encounter procedure RECREATION COUNSELOR-C Summer Tidwell Work Phone: [facility] Work Phone: Start: 09-21-2022 Office outpatient vi sit 25 minutes Los M Hoy Work Phone: [facility] 250 DO Work Phone: Start: 09-21-[address] Akhil Olivarez II Facility: Start: 09-14-2022 ambulatory Sparkle Janessa Chelsea ity:[id number] Start: 09-01-2022 Office outpatient vi sit 25 minutes Los M Hoy Work Phone: [facility] 250 DO Work Phone: Start: 09-01-[address] Akhil Olivarez II Facility: Start: 08-25-2022 End: 08-26-2022 ambulatory PADMAJA SAWANT Facility:[facility] Start: 08-07-2022 End: 09-06-2022 ambulatory SHAIKH Omer WHITE Facility:H1 Start: 08-02-2022 Office outpatient vi sit 15 minutes Los M Hoy Work Phone: [facility] 250 DO Work Phone: Start: 08-02-2022 ambulatory Ms. Cheek Marcelina James Facility: Start: 08-01-2022 End: 08-02-2022 ambulatory MICKEY HERNANDEZ Facility:[facility]1 Start: 07-18-2022 End: 07-18-2022 ambulatory RECREATION COUNSELOR-C Summerbridget Ravi Yaw Work Phone: [facility] Work Phone: Start: 07-18-2022 End: 07-18-2022 Discharged Recurring RECREATION COUNSELOR-C Summerbridget Tidwell Work Phone: [facility]-Physical Therapy [address] Start: 07-10-2022 End: 08-04-[address] LOS CHAUDHARY . Facility:[facility]1 Start: 07-05-2022 ambulatory Ms. Mickey James Facility: Start: 07-05-2022 Office outpatient vi sit 25 minutes Los Chaudhary Work Phone: [facility] 250 DO Work Phone: Start: 06-28-2022 End: 06-28-[address] LOS CHAUDHARY . Facility:[facility]1 Start: 06-13-2022 Chart Update Summer Garibayme r Work Phone: [facility] 250 DO Work Phone: Start: 06-13-2022 Registered Recurring RECREATION COUNSELOR-C Cleo chapman Yaw Work Phone: [facility]-Physical Therapy [address] Start: 06-13-2022 End: 06-13-2022 ambulatory RECREATION COUNSELOR-C Summer Ravi Yaw Work Phone: [facility] Work Phone: Start: 06-13-2022 End: 06-13-2022 Patient encounter procedure RECREATION COUNSELOR-C Summerbridget Garibaymer Work Phone: [facility]-Respiratory Therapy Work Phone: Start: 06-07-2022 End: 07-07-2022 ambulatory SHAIKH Omer WHITE Facility:H1 Start: 05-24-2022 Patient encounter procedure Freddy Tidwell Work Phone: [facility] 250 DO Work Phone: Start: 05-10-2022 End: 06-07-2022 ambulatory SHAIKH Omer WHITE Facility:[facility]1 Start: 04-28-2022 Rx Renewal Summer Burden r Work Phone: [facility] 250 DO Work Phone: Start: 04-10-2022 End: 05-10-2022 ambulatory SHAIKH Omer WHITE Facility:[facility]1 Start: 03-23-2022 End: 03-23-2022 Patient encounter procedure Los Chaudhary [facility] Start: 03-10-2022 End: 03-10-[address] LOS CHAUDHARY . Facility:[facility]1 Start: 03-09-2022 End: 04-09-2022 ambulatory SHAIKH Omer WHITE Facility:[facility]1 Start: 02-07-2022 Office outpatient vi sit 25 minutes Summer Tidwell [facility] 250 [facility] Work Phone: Start: 02-07-[address] [facility] Start: 02-07-2022 End: 03-08-2022 ambulatory SHAIKH Omer WHITE Facility:[facility]1 Start: 01-10-2022 End: 01-10-2022 Emergency department patient visit RECREATION COUNSELOR-C Summer Tidwell Work Phone: [facility]-Emergency Room Start: 01-08-2022 End: 02-06-2022 ambulatory SUMMER TIDWELL Facility:H1 Start: 01-05-2022 End: 01-05-2022 ambulatory RECREATION COUNSELOR-C Summer Tidwell Work Phone: [facility] Work Phone: Start: 01-05-2022 End: 01-05-2022 Patient encounter procedure RECREATION COUNSELOR-C Summer Tidwell Work Phone: [facility] [place] Start: 01-04-2022 End: 01-04-2022 ambulatory RECREATION COUNSELOR-C Summer Tidwell Work Phone: [facility] Work Phone: Start: 01-04-2022 End: 01-04-2022 Patient encounter procedure RECREATION COUNSELOR-C Summer Yaw Work Phone: [facility] [place] Start: 12-29-2021 End: 12-29-2021 ambulatory SUMMER TIDWELL Facility:[facility]1 Start: 12-20-2021 End: 12-22-[address] LOS CHAUDHARY . Facility:[facility]1 Start: 12-16-2021 Chart Update Summer Garibayme r Work Phone: [facility] 250 DO Work Phone: Start: 12-13-2021 End: 12-13-2021 Patient encounter procedure RECREATION COUNSELOR-C Summre Tidwell Work Phone: [facility]-Respiratory Therapy Start: 12-08-2021 End: 01-07-2022 ambulatory SUMMER TIDWELL Facility:H1 Start: 11-28-2021 Office outpatient vi sit 25 minutes Summer Tidwell Work Phone: [facility] 250 DO Work Phone: Start: 11-09-2021 AUDIT Summer Al Lani r Work Phone: [facility] 250 DO Work Phone: Start: 11-07-2021 End: 12-07-2021 ambulatory SUMMER TIDWELL Facility:[facility]1 Start: 11-01-[address] LOS CHAUDHARY . Facili ty:H1 Start: 10-28-2021 End: 10-29-2021 Evaluation and management of inpatient RECREATION COUNSELOR-C Summer Tidwell Work Phone: [facility] [place] [facility] Start: 10-25-2021 End: 10-25-2021 Emergency department patient visit RECREATION COUNSELOR-C Summer Tidwell Work Phone: [facility]-Emergency Room Start: 10-21-2021 Patient encounter procedure Freddy Tidwell Work Phone: [facility] 250 DO Work Phone: Start: 10-21-2021 End: 10-21-2021 Emergency department patient visit RECREATION COUNSELOR-C Summer Tidwell Work Phone: [facility]-Emergency Room Start: 10-20-2021 End: 10-20-2021 ambulatory SUMMER TIDWELL Facility:H1 Start: 10-07-2021 End: 11-04-2021 ambulatory REIS H KENDRAPearlSHANICE Facility:H1 Start: 09-28-2021 Patient encounter procedure Freddy jaiden Tidwell Work Phone: -[facility] 600 DO Work Phone: Start: 09-21-2021 Office outpatient vi sit 25 minutes Summerbridget Tiwdell Work Phone: [facility] 250 DO Work Phone: Start: 06-30-2021 Chart Update Summer Burden r Work Phone: [facility] 600 DO Work Phone: Start: 04-22-2021 Patient encounter procedure Freddy jaiden Tidwell Work Phone: [facility] 250 DO Work Phone: Start: 04-15-2021 Office outpatient vi sit 25 minutes Summerbridget Garibaymer Work Phone: [facility] 250 DO Work Phone: Start: 03-07-2021 Rx Renewal Akhil avitia MD Work Phone: [facility] 250 DO Work Phone: Start: 03-01-2021 Rx Renewal Akhil avitia MD Work Phone: [facility] 600 DO Work Phone: Start: 12-22-2016 End: 12-23-2016 Ambulatory JUSTIN BROWN Facility:[facility] Procedures Date Procedure Procedure Detail Performing Clinician Start: 07-31-2023 Plain chest X-ray MD Gerber Work Phone: Start: 07-31-2023 SARS-CoV-2, Influenz a & RSV (PCR) MD Los Chaudhary Work Phone: Start: 05-15-2023 Plain chest X-ray MD Gerber Work Phone: Start: 02-26-2023 ECG 12-LEAD MICKEY EARLENE H Start: 02-26-2023 Ecg routine ecg w/le ast 12 lds w/i&r Mickey Sun James AUDIENCE COORDINATORAlbireo Work Phone: Start: 01-23-2023 History of percutane ous transluminal coronary angioplasty H/O percutaneous transluminal coronary angioplasty Mickey James AUDIENCE COORDINATORAlbireo Work Phone: Start: 12-14-2022 Plain chest X-ray [...] Start: 09-25-2022 CL LHC & COR Angio RECREATION COUNSELOR-C Summer Yaw Work Phone: Start: 09-25-2022 CL Stent 1st Vessel CX COLBY RECREATION COUNSELOR-C Summer Yaw Work Phone: Start: 06-13-2022 Plain chest X-ray RECREATION COUNSELOR-C Summer Yaw Work Phone: Start: 01-10-2022 CT of head without contrast RECREATION COUNSELOR-C Summer Yaw Work Phone: Start: 12-13-2021 Plain chest X-ray RECREATION COUNSELOR-C Summer Tidwell Work Phone: Start: 10-28-2021 CT angiography of head RECREATION COUNSELOR-C Summer Tidwell Work Phone: Start: 10-28-2021 CT angiography of ne ck vessels RECREATION COUNSELOR-C Summer Tidwell Work Phone: Start: 10-28-2021 Magnetic resonance angiography of head without contrast RECREATION COUNSELOR-C Summer Tidwell Work Phone: Start: 10-25-2021 CT of head without contrast RECREATION COUNSELOR-C Summer Tidwell Work Phone: Start: 10-21-2021 Plain chest X-ray RECREATION COUNSELOR-C Summer Tidwell Work Phone: Start: 03-09-2016 Stereotactically wilma ded core needle biopsy of breast Los Chaudhary Comment on above: left Start: 04-09-2009 5 Stents Los Will y Angioplasty of blood vessel Summer Tidwell Work Phone: Extraction of cataract Dougl as Hoy H/O: surgery Status post eye surgery RECREATION COUNSELOR-C Summer Tidwell Work Phone: History of placement of stent for coronary artery disease History of heart artery stent RECREATION COUNSELOR-Abimbola Tidwell Work Phone: History of placement of stent for coronary artery disease Status post insertion of drug eluting coronary artery stent Los M Neena Work Phone: L Hip Surgery Los Chaudhary Operation on fracture Summer Tidwell Work Phone: Operative procedure on hip Summer Tidwell Work Phone: R Broken leg Los Chaudhary SARS-CoV-2, Influenz a & RSV (PCR) RECREATION COUNSELOR-C Summer Tidwell Work Phone: Surgical procedure Summer Tidwell Work Phone: Comment on above: stent indications; Urine culture RECREATION COUNSELOR-C Summer spicer Work Phone: NEGATED: Highlighted row has not occurred! Total colonoscopy Summer Tidwell Work Phone: Plan of Treatment Date Care Activity Detail Author Start: 05-15-2026 Diabetes Screening Diabetes Screening [facility] Start: 12-09-2023 Influenza vaccination Influenza Vaccine (Season Ended) [facility] Start: 09-05-2023 End: 09-05-2023 Patient encounter procedure 09/05/2023 1:30 PM EDT Office Visit [facility] [address] [facility] [address] [place] [phone] Akhil Olivarez MD [address] [facility] [place] [address] [facility] Start: 04-10-2023 FUV, Provider: Akhil Olivarez, Status: Pen, Time: 10:20 AM FUV, Provider: Akhil Olivarez, Status: Pen, Time: 10:20 AM [facility] 250 DO Work Phone: Start: 04-09-2023 Advance Directive Discussion Advance Directive Discussion [facility] Start: 04-09-2023 Behavioral Health Screening Behavioral Health Screening [facility] Start: 04-09-2023 Depression Assessment Depression Assessment [facility] Start: 02-26-2023 FUV, Provider: Mickey Biggs, Status: Pen, Time: 1:00 PM FUV, Provider: Mickey Biggs, Status: Pen, [facility]: [facility] [facility] Work Phone: Start: 12-08-2022 Covid-19 Vaccine ( season) Covid-19 Vaccine ( season) [facility] Start: 12-08-2022 Influenza vaccination Influenza Vaccine (#1) Bandar guerrero Start: 11-30-2022 [facility] Start: 11-29-2022 [facility] Start: 11-28-2022 [facility] Start: 11-27-2022 [facility] Start: 11-26-2022 [facility] Start: 11-25-2022 [facility] Start: 11-24-2022 [facility] Start: 11-22-2022 [facility] Start: 11-22-2022 Lipid panel [facility] Start: 11-21-2022 Lipid panel [facility] Start: 11-20-2022 Catheterization of left heart CL *Left Heart Cath (LHC) [facility] Start: 11-20-2022 Lipid panel [facility] Start: 11-19-2022 Fluoroscopy of Left Heart using Low Osmolar Contrast Fluoroscopy of Left Heart using Low Osmolar Contrast [facility] Start: 11-19-2022 Fluoroscopy of Multiple Coronary Arteries using Low Osmolar Contrast Fluoroscopy of Multiple Coronary Arteries using Low Osmolar Contrast [facility] Start: 11-19-2022 Insertion of Pacemaker Lead into Right Atrium, Percutaneous Approach Insertion of Pacemaker Lead into Right Atrium, Percutaneous Approach [facility] Start: 11-19-2022 Insertion of Pacemaker Lead into Right Ventricle, Percutaneous Approach Insertion of Pacemaker Lead into Right Ventricle, Percutaneous Approach [facility] Start: 11-19-2022 Insertion of Pacemaker, Dual Chamber into Chest Subcutaneous Tissue and Fascia, Open Approach Insertion of Pacemaker, Dual Chamber into Chest Subcutaneous Tissue and Fascia, Open Approach [facility] Start: 11-19-2022 Measurement of Cardiac Sampling and Pressure, Left Heart, Percutaneous Approach Measurement of Cardiac Sampling and Pressure, Left Heart, Percutaneous Approach [facility] Start: 11-19-2022 Lipid panel [facility] Start: 11-18-2022 Lipid panel [facility] Start: 11-18-2022 End: 11-18-2022 [facility] Start: 11-17-2022 End: 11-17-2022 [facility] Start: 11-17-2022 Hospital admission [facility] Start: 11-17-2022 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 mill [facility] Start: 10-30-2022 FUV, Provider: Akhil Olivarez, Status: Pen, Time: 11:30 AM FUV, Provider: Akhil Olivarez, Status: Pen, Time: 11:30 AM [place] [address] DO Work Phone: Start: 10-29-2022 Echocardiography Echocardiogram [facility] Start: 09-25-2022 [facility] Start: 09-25-2022 SURGNONUH, Provider: Akhil Michel, Status: Pen, Time: 10:00 AM SURGNONUH, Provider: Akhil Michel, Status: Pen, Time: 10:00 AM -[facility] [place] 250 DO Work Phone: Start: 09-14-2022 STRESS NUC, Provider: RICHARD HHVI NUCLEAR 01,[id number], Status: Pen, Time: 8:00 AM STRESS NUC, Provider: RICHARD HHVI NUCLEAR 01,[id number], Status: Pen, Time: 8:00 AM [facility] [place] 250 DO Work Phone: Start: 09-01-2022 FUV, Provider: Akhil Olivarez, Status: Pen, Time: 2:00 PM FUV, Provider: Akhil Olivarez, Status: Pen, Time: 2:00 PM -[facility] 250 DO Work Phone: Start: 08-02-2022 FUV, Provider: Mickey Biggs, Status: Pen, Time: 1:00 PM FUV, Provider: Mickey Biggs, Status: Pen, Time: 1:00 PM -[facility] [place] 250 DO Work Phone: Start: 04-09-2022 Advance Directive Discussion Advance Directive Discussion [facility] Start: 04-09-2022 Depression Assessment Depression Assessment [facility] Start: 11-28-2021 FUV, Provider: Akhil Olivarez, Status: Pen, Time: 8:20 AM FUV, Provider: Akhil Olivarez, Status: Pen, Time: 8:20 AM -[facility] [place] 250 DO Work Phone: Start: 11-07-2021 [facility] Work Phone: Start: 11-06-2021 [facility] Work Phone: Start: 11-05-2021 [facility] Work Phone: Start: 11-04-2021 [facility] Work Phone: Start: 11-03-2021 [facility] Work Phone: Start: 11-02-2021 [facility] Work Phone: Start: 11-01-2021 [facility] Work Phone: Start: 10-31-2021 [facility] Work Phone: Start: 10-30-2021 [facility] Work Phone: Start: 10-29-2021 End: 10-29-2021 [facility] Start: 10-28-2021 Referral to neurologist [facility] Start: 10-28-2021 Vitamin B12 measurement [facility] Work Phone: Start: 10-28-2021 Vitamin D, 25-hydroxy measurement [facility] Work Phone: Start: 10-28-2021 Hospital admission [facility] Start: 10-28-2021 Physical therapy procedure [facility] Work Phone: Start: 10-28-2021 Referral to occupational therapist [facility] Work Phone: Start: 10-28-2021 [facility] Work Phone: Start: 09-28-2021 EVENT PILAR, Provider: IMAN VAZ BLANKET WASHER 1,[id number], Status: Pen, Time: 2:30 PM EVENT PILAR, Provider: IMAN VAZ BLANKET WASHER 1,[id number], Status: Pen, Time: 2:30 PM [facility] [place] 250 DO Work Phone: Start: 09-21-2021 FUV, Provider: Akhil Olivarez, Status: Pen, Time: 2:10 PM FUV, Provider: Akhil Olivarez, Status: Pen, Time: 2:10 PM -[facility] [place] 250 DO Work Phone: Start: 04-15-2021 FUV, Provider: Akhil Olivarez, Status: Abdifatah, Time: 1:15 PM -[facility] 600 DO Work Phone: Start: 04-19-2020 Diabetes Screening Diabetes Screening [facility] Start: 11-27-2019 Screening for osteoporosis Bone Density Scan [facility] Start: 12-09-2009 Urine microalbumin profile DTaP,Tdap,Td Vaccine (1 - Tdap) [facility] Start: 1999 Bone Density Screening Bone Density Screening [facility] Start: 1999 Pneumococcal Vaccine: 65+ (1 - PCV) Pneumococcal Vaccine: 65+ (1 - PCV) [facility] Start: 1999 Screening for osteoporosis Bone Density Screening [facility] Start: 1994 RSV Vaccine (1 - 1-dose 60+ series) RSV Vaccine (1 - 1-dose 60+ series) [facility] Start: 1984 Shingrix Vaccine (1 of 2) Shingrix Vaccine (1 of 2) [facility] Start: 1984 Zoster Vaccines (1 of 2) Zoster Vaccines (1 of 2) [facility] Start: 1956 DTaP/Tdap/Td Vaccines (1 - Tdap) DTaP/Tdap/Td Vaccines (1 - Tdap) [facility] Start: 1953 Urine microalbumin profile DTaP,Tdap,Td Vaccine (1 - Tdap) [facility] Start: 1952 Diabetes mellitus screening Diabetes Screening [facility] Start: 1952 Hepatitis B surface antibody level LDL Cholesterol [facility] Start: 1934 Covid-19 Vaccine (#1) Covid-19 Vaccine (#1) [facility] Start: 1934 Creatinine measurement Creatinine Level [facility] Start: 1934 Lipid panel Lipid Panel [facility] Start: 1934 Medicare Annual Wellness Visit Medicare Annual Wellness Visit (AWV) [facility] Start: 1934 Potassium measurement Potassium Level [facility] Start: 1934 Thyroid stimulating hormone measurement TSH Level [facility] Bacteria identified in Urine by Culture [facility] ECG 12 lead (Clinic Performed) ECG 12 lead (Clinic Performed) ECG Routine Paroxysmal atrial fibrillation (CMS/HCC) High risk medication use 02/26/2023 1:22 PM EST [facility] Service Area Work Phone: Patient Education [facility] Work Phone: Patient referral [facility] Work Phone: Vitamin D, 25-hydrox y measurement [facility] Work Phone: [facility] Immunizations Immunization Date Immunization Notes Care Provider [facility] 12-08-2019 influenza, high dose seasonal, preservative-free Summer S Yaw Work Phone: [facility] 250 DO Work Phone: 12-08-2019 influenza virus vacc ine, unspecified formulation Shweta Sol MD Work Phone: [facility] 12-04-2019 influenza, high dose seasonal, preservative-free Mickey James AUDIENCE COORDINATOR-SHIP DESIGN TEACHER Work Phone: [facility] Work Phone: 12-18-2018 influenza, high dose seasonal, preservative-free Summer S Yaw Work Phone: [facility] 250 DO Work Phone: 12-18-2018 pneumococcal polysaccharide vaccine, 23 valent Summer S Yaw Work Phone: [facility] 12-08-2018 influenza virus vacc ine, unspecified formulation Summer S Yaw Work Phone: [facility] 250 DO Work Phone: 04-09-2018 pneumococcal conjuga te vaccine, 13 valent Mickey James AUDIENCE COORDINATOR-SHIP DESIGN TEACHER Work Phone: [facility] Work Phone: 04-09-2018 pneumococcal polysaccharide vaccine, 23 valent Summer S Yaw Work Phone: [facility] 250 DO Work Phone: 12-26-2017 influenza, high dose seasonal, preservative-free Summer S Yaw Work Phone: [facility] 250 DO Work Phone: 12-26-2017 influenza, injectabl e, quadrivalent, preservative free Mickey James AUDIENCE COORDINATOR-SHIP DESIGN TEACHER Work Phone: [facility] Work Phone: 01-03-2017 influenza, high dose seasonal, preservative-free Summer S Yaw Work Phone: [place] [address] DO Work Phone: 01-03-2017 pneumococcal conjuga te vaccine, 13 valent Summer S Yaw Work Phone: [place] [address] DO Work Phone: 12-26-2016 influenza virus vacc ine, unspecified formulation Summer S Yaw Work Phone: [facility] 12-26-2016 pneumococcal conjuga te vaccine, 13 valent Summer S Yaw Work Phone: [facility] 250 DO Work Phone: 01-11-2016 influenza, high dose seasonal, preservative-free Summer S Yaw Work Phone: [facility] 250 DO Work Phone: 02-12-2015 influenza, injectabl e, quadrivalent, preservative free Summer S Yaw Work Phone: [facility] 250 DO Work Phone: 01-07-2015 influenza virus vacc ine, unspecified formulation Summer S Yaw Work Phone: [facility] 250 DO Work Phone: 01-07-2014 influenza virus vacc ine, unspecified formulation Summer S Yaw Work Phone: [facility] 250 DO Work Phone: 02-25-2013 influenza, seasonal, injectable Summer S Yaw Work Phone: [facility] 250 DO Work Phone: 03-26-2009 novel influenza-H1N1 -09, preservative-free, injectable Summer S Yaw Work Phone: [facility] 250 DO Work Phone: 04-09-2007 pneumococcal polysaccharide vaccine, 23 valent Summer S Yaw Work Phone: [facility] 250 DO Work Phone: 02-02-2003 pneumococcal polysaccharide vaccine, 23 valent Summer S Yaw Work Phone: [facility] influenza virus vacc ine, unspecified formulation Summer S Yaw Work Phone: [facility] 250 DO Work Phone: Comment on above: [id number] Payers Date Payer Category Payer Medicare [id number] 2023 Medicare [id number] 2022 Self-pay [id number] 2022 Unknown [id number] 2016 Unknown 2012 Medicare [id number] 1999 Medicare 1959 Medicare [id number] 1959 Unknown [id number] 1934 Unknown [id number] 2.16.840.1.969693.3.579.2.593 1934 Unknown [id number] 2.16.840.1.784893.3.579.2.593 1934 Unknown [id number] 2.16.840.1.399010.3.579.2.593 1934 Unknown [id number] 2.16.840.1.858525.3.579.2.593 1934 Unknown [id number] 2.16.840.1.398423.3.579.2.593 1934 Unknown [id number] 2.16.840.1.753265.3.579.2.593 1934 Unknown [id number] 2.16.840.1.092700.3.579.2.593 1934 Unknown [id number] 2.16.840.1.984007.3.579.2.593 1934 Unknown [id number] 2.16.840.1.738183.3.579.2.593 1934 Unknown [id number] 2.16.840.1.609507.3.579.2.593 1934 Unknown [id number] 2.16.840.1.348830.3.579.2.593 1934 Unknown [id number] 2.16.840.1.444579.3.579.2.593 1934 Unknown [id number] 2.16.840.1.849013.3.579.2.593 1934 Unknown [id number] 2.16.840.1.820876.3.579.2.593 1934 Unknown [id number] 2.16.840.1.069472.3.579.2.593 1934 Unknown [id number] 2.16.840.1.663057.3.579.2.593 1934 Unknown [id number] 2.16.840.1.748038.3.579.2.593 1934 Unknown [id number] 2.16.840.1.393378.3.579.2.593 1934 Unknown [id number] 2.16.840.1.248763.3.579.2.1068 1934 Unknown [id number] 2.16840.1.228790.3.579.2.356 1934 Unknown [id number] 2.840.1.625655.3.579.2.356 1934 Unknown [id number] 2.840.1.199050.3.579.2.356 1934 Unknown [id number] 2.840.1.562305.3.579.2.356 1934 Unknown [id number] 2.840.1.144593.3.579.2.356 1934 Unknown [id number] 2.840.1.713506.3.579.2.356 1934 Unknown [id number] 2.840.1.082355.3.579.2.356 1934 Unknown [id number] 2.840.1.229902.3.579.2.356 1934 Unknown [id number] 2.840.1.094537.3.579.2.356 1934 Unknown [id number] 2.16840.1.528849.3.579.2.356 1934 Unknown [id number] 2.16840.1.814920.3.579.2.356 1934 Unknown [id number] 2.840.1.054633.3.579.2.356 1934 Unknown [id number] 2.16.840.1.417340.3.579.2.356 1934 Unknown [id number] 2.16.840.1.128237.3.579.2.356 1934 Unknown [id number] 2..840.1.597146.3.579.2.356 1934 Unknown [id number] 2.16.840.1.256994.3.579.2.356 1934 Unknown [id number] 2..840.1.335428.3.579.2.356 1934 Unknown [id number] 2.840.1.497304.3.579.2.727 1934 Unknown [id number] 2.840.1.643785.3.579.2.718 1934 Unknown [id number] 2.840.1.198128.3.579.2.1244 Medicare Medicare Rehab-IP Part A [id number] Unknown [id number] 2.840.1.569659.3.579.2.531 Unknown [id number] 2.840.1.555382.3.579.2.531 Unknown [id number] 2.840.1.075180.3.579.2.531 Unknown [id number] 2.840.1.960588.3.579.2.531 Unknown [id number] 2.16.840.1.813346.3.579.2.531 Unknown [id number] 2.840.1.288095.3.579.2.531 Unknown [id number] 2.16.840.1.602566.3.579.2.531 Unknown [id number] 2.16840.1.165150.3.579.2.531 Unknown [id number] 2.16.840.1.433397.3.579.2.531 Unknown [id number] 2.16.840.1.199987.3.579.2.531 Social History Date Type Detail Facility Start: 08-25-2022 End: 12-13-2022 No alcohol use No alcohol use [facility] [place] 250 DO Work Phone: Comment on above: Hot sandy occas.; Start: 10-28-2021 Tobacco smoking stat us NEIS Unknown if ever smoked [facility] Start: 1934 Sex Assigned At Female F [facility] Start: 10-29-2021 End: 07-31-2023 Tobacco smoking status NHIS Never smoked tobacco (finding) [facility] Start: 08-25-2022 End: 12-13-2022 [facility]igned At [facility] Start: 12-13-2012 End: 02-23-2023 Tobacco use and exposure Smokeless tobacco non-user [facility] Start: 12-13-2022 End: 03-29-2023 Alcohol intake Current non-drinker of alcohol (finding) [facility] National Score (1-100), lower number is lower risk 91 [facility] Start: 1935 Sex Assigned At Not on file [facility] Start: 02-26-2023 Alcohol intake Lifetime non-d nanci (finding) [facility] Work Phone: Start: 02-16-2023 End: 02-26-2023 Exposure to SARS-CoV-2 (event) Not sure [facility] Medical Equipment Procedure Code Equipment Code Equipment Origin al Text Equipment Identifier Dates Insertion, pacemaker Endocardial pacing lead [id number] FDA Start: 11-22-2022 Insertion, pacemaker Endocardial pacing lead [id number] FDA Start: 11-22-2022 Insertion, pacemaker Dual-chamber implantable pacemaker, rate-responsive [id number] FDA Start: 11-22-2022 BLADE HELICAL TF [...] 2.5 X 30 FDA Start: 09-25-2022 Oculid [place] [id number] Sta rt: 04-24-2023 BLADE HELICAL [...] Patient is Pro gressing Toward Baseline [facility] Work Phone: 11-17-2022 Functional status Disability Sta tus Patient at Baseline [facility] Work Phone: 09-25-2022 Functional status Patient at Baseline [facility] Work Phone: 10-29-2021 Functional status Patient is Pro gressing Toward Baseline [facility] Work Phone: Mental Status Date Assessment Result Facility 11-24-2022 Cognitive function Cognitive Sta tus Patient at Baseline [facility] Work Phone: 09-25-2022 Cognitive function Cognitive Sta tus Patient at Baseline [facility] Work Phone: 10-29-2021 Cognitive function Cognitive Sta tus Patient at Baseline [facility] Work Phone: Clinical Notes 10-28-2021 to 08-18-2023 Shweta Sol MD - 07/26/2023 9:15 AM Rosalva Rowland APRN.SHIP DESIGN TEACHER - 05/21/2023 8:40 AM ESTTelephone Encounter - Beatris Castañeda LPN - 03/21/2023 11:56 AM ESTPatient Instructions Note Date & Type Note Facility 08-18-2023 Note Education Materials Hematology Hematoma A hematoma is a collection of blood under the skin, in an organ, in a body space, in a joint space, or in other tissue. The blood can thicken (clot) to form a lump that you can see and feel. The lump is often firm and may become sore and tender. Most hematomas get better in a few days to weeks. However, some hematomas may be serious and require medical care. Hematomas can range from very small to very large. What are the causes? This condition is caused by: ? A blunt or penetrating injury. ? Leakage from a blood vessel under the skin. ? Some medical procedures, including surgeries, such as oral surgery, face lifts, and surgeries on the joints. ? Some medical conditions that cause bleeding or bruising. There may be multiple hematomas that appear in different areas of the body. What increases the risk? You are more likely to develop this condition if: ? You are an older adult. ? You use blood thinners. ? You regularly use NSAIDs, such as ibuprofen, for pain. ? You play contact sports. What are the signs or symptoms? Symptoms of this condition depend on where the hematoma is located. Common symptoms of a hematoma that is under the skin include: ? A firm lump on the body. ? Pain and tenderness in the area. ? Bruising. Blue, dark blue, purple-red, or yellowish skin (discoloration) may appear at the site of the hematoma if the hematoma is close to the surface of the skin. Common symptoms of a hematoma that is deep in the tissues or body spaces may be less obvious. They include: ? A collection of blood in the stomach (intra-abdominal hematoma). This may cause pain in the abdomen, weakness, fainting, and shortness of breath. ? A collection of blood in the head (intracranial hematoma). This may cause a headache or symptoms such as weakness, trouble speaking or understanding, or a change in consciousness. How is this diagnosed? This condition is diagnosed based on: ? Your medical history. ? A physical exam. ? Imaging tests, such as an ultrasound or CT scan. These may be needed if your health care provider suspects a hematoma in deeper tissues or body spaces. ? Blood tests. These may be needed if your health care provider believes that the hematoma is caused by a medical condition. How is this treated? Treatment for this condition depends on the cause, size, and location of the hematoma. Treatment may include: ? Doing nothing. The majority of hematomas do not need treatment as many of them go away on their own. ? Surgery or close monitoring. This may be needed for large hematomas or hematomas that affect vital organs. ? Medicines. Medicines may be given if there is an underlying medical cause for the hematoma. Follow these instructions at home: Managing pain, stiffness, and swelling ? If directed, put ice on the injured area. To do this: ? Put ice in a plastic bag. ? Place a towel between your skin and the bag. ? Leave the ice on for 20 minutes, 2?3 times a day for the first couple of days. ? If your skin turns bright red, remove the ice right away to prevent skin damage. The risk of skin damage is higher if you cannot feel pain, heat, or cold. ? If directed, apply heat to the affected area as often as told by your health care provider. Use the heat source that your health care provider recommends, such as a moist heat pack or a heating pad. ? Place a towel between your skin and the heat source. ? Leave the heat on for 20?30 minutes. ? If your skin turns bright red, remove the heat right away to prevent camacho. The risk of camacho is higher if you cannot feel pain, heat, or cold. ? Raise (elevate) the injured area above the level of your heart while you are sitting or lying down. ? If directed, wrap the affected area with an elastic bandage. The bandage applies pressure (compression) to the area, which may help to reduce swelling and promote healing. Do not wrap the bandage too tightly around the affected area. ? If your hematoma is on a leg or foot (lower extremity) and is painful, your health care provider may recommend crutches. Use them as told by your health care provider. General instructions ? Take irwl-bsr-ekjdjba and prescription medicines only as told by your health care provider. ? Rest the injured area as directed by your health care provider. ? Keep all follow-up visits. Your health care provider may want to see how your hematoma is progressing with treatment. Contact a health care provider if: ? You have a fever. ? The swelling or discoloration gets worse. ? You develop more hematomas. ? Your pain is worse or your pain is not controlled with medicine. ? Your skin over the hematoma breaks or starts bleeding. Get help right away if: ? Your hematoma is in your chest or abdomen and you have weakness, shortness of breath, or a change in consciousness. ? You have a hematoma on (more content not included)... [facility] 07-26-2023 Note HNO ID: [id number] Author: SHWETA SOL MD Service: ? 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 Time postop: 13 weeks ROS: Current Outpatient Medications on File Prior to Visit Medication Sig traMADol (ULTRAM) 50 mg tablet take 1 tablet by mouth four times a day as needed docusate sodium (COLACE) 100 mg capsule Take 1 capsule by mouth two times a day as needed for constipation. aspirin, enteric coated (ASPIRIN, ENTERIC COATED) 81 [...] tablet by mouth once daily. [facility] clopidogrel (PLAVIX) 75 mg tablet Take 75 [...] facility-administered medications on file prior to visit. Objective: There were no vitals taken for this visit. PE: - Alert and oriented in NAD on room air - Left eye incisions c/d/I - well healed - good position - Eye closes symmetrically with gravity Assessment: - s/p insertion of left upper eyelid weight (1.6 g togiak weight placed in the left upper eyelid), and direct brow lift of left eyebrow - Expected post operative course Plan: - Discussed using ointment in lower eyelid if it becomes too dry RTC PRN HIPAA: Patient acknowledged and consented to discussion of HPI/PE/medical care/dispo with family/friends in room The patient was seen with Shweta Sol MD who performed the Review of Systems and Past/Family/Social History. I have reviewed these and agree with her findings. I spent 30 minutes in the visit, with more than 50% of the total ydic-rr-icla time of the visit in counseling / coordination of care. By signing my name below, I, Chloe Riojas, attest that this documentation has been prepared under the direction and in the presence of Dr. Sol Electronically signed, Anastacio Palmer July 26, 2023 9:38 AM Provider Attestation: I, Shweta Sol MD, personally performed the services described in this documentation. All medical record entries made by the scribe were at my direction and in my presence. I have reviewed the chart and discharge instructions (if applicable) and agree that the record reflects my personal performance and is accurate and complete. Dr. 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 Time postop: 13 weeks ROS: Current Outpatient Medications on File Prior to Visit Medication Sig traMADol (ULTRAM) 50 mg tablet take 1 tablet by mouth four times a day as needed docusate sodium (COLACE) 100 mg capsule Take 1 capsule by mouth two times a day as needed for constipation. aspirin, enteric coated (ASPIRIN, ENTERIC COATED) 81 [...] 1 tablet by mouth once daily. [facility] clopidogrel (PLAVIX) 75 mg tablet Take [...] facility-administered medications on file prior to visit. Objective: There were no vitals taken for this visit. PE: - Alert and oriented in NAD on room air - Left eye incisions c/d/I - well healed - good position - Eye closes symmetrically with gravity Assessment: - s/p insertion of left upper eyelid weight (1.6 g togiak weight placed in the left upper eyelid), and direct brow lift of left eyebrow - Expected post operative course Plan: - Discussed using ointment in lower eyelid if it becomes too dry RTC PRN HIPAA: Patient acknowledged and consented to discussion of HPI/PE/medical care/dispo with family/friends in room The patient was seen with Shweta Sol MD who performed the Review of Systems and Past/Family/Social History. I have reviewed these and agree with her findings. I spent 30 minutes in the visit, with more than 50% of the total lnrm-ok-gxnq time of the visit in counseling / coordination of care. By signing my name below, I, Chloe Riojas, attest that this documentation has been prepared under the direction and in the presence of Dr. Sol Electronically signed, Anastacio Palmer July 26, 2023 9:38 AM Provider Attestation: I, Shweta Sol MD, personally performed the services described in this documentation. All medical record entries made by the scribe were at my direction and in my presence. I have reviewed the chart and discharge instructions (if applicable) and agree that the record reflects my personal performance and is accurate and complete. Dr. Shweta Sol MD July 26, 2023 9:58 AM documented in this encounter [facility] 05-21-2023 Note HNO ID: [id number] Author: ROSALVA LEMOS APRN.SHIP DESIGN TEACHER Service: ? Author Type: Nurse Practitioner Type: Progress Notes Filed: 05/21/2023 09:27 Note Text: Plastic Surgery Post Op Note CC: post op HPI Date of Surgery: 04/24/2023 Surgery: insertion of left upper eyelid weight (1.6 g togiak weight placed in the left upper eyelid), [...] 1 tablet by mouth once daily. [facility] clopidogrel (PLAVIX) 75 mg tablet Take [...] questions or concerns during business hours call [phone] or after hours (after 5 pm or on the weekend) call [phone] and ask for the plastic surgery resident / fellow telephone information supervisor for further instructions. If you have increasing [...] or difficulty breathing (more content not included)... [facility] 05-21-2023 History of Presen t illness Narrative Plastic Surgery Post Op Note CC: post op HPI Date of Surgery: 04/24/2023 Surgery: insertion of left upper eyelid weight (1.6 g togiak weight placed in the left upper eyelid), [...] Take 1 tablet by mouth once daily. [facility] clopidogrel (PLAVIX) 75 mg tablet Take [...] questions or concerns during business hours call [phone] or after hours (after 5 pm or on the weekend) call [phone] and ask for the plastic surgery resident / fellow telephone information supervisor for further instructions. If you have increasing [...] Past Histories independently gathered by the clinical work station support specialist and the remaining scribed note accurately describes my personal service to the patient. Rosalva Lemos APRN.CNP May 21, 2023 documented in this encounter [facility] 04-30-2023 Note HNO ID: [id number] Author: ROSALVA LEMOS APRN.CNP Service: ? Author Type: Nurse Practitioner Type: Progress Notes Filed: 04/30/2023 10:27 Note Text: Plastic Surgery Post Op Note CC: post op HPI Date of Surgery: 04/24/2023 Surgery: insertion of left upper eyelid weight (1.6 g togiak weight placed in the left upper eyelid), [...] tablet by mouth once daily. [facility] clop[facility]rel (PLAVIX) 75 mg tablet Take 75 [...] questions or concerns during business hours call [phone] or after hours (after 5 pm or on the weekend) call [phone] and ask for the plastic surgery resident / fellow telephone information supervisor for further instructions. If you have increasing [...] shortness of breas (more content not included)... [facility] 04-24-2023 Note HNO ID: [id number] Author: ?, ?, ? Service: Pharmacy Author Type: ? Type: Plan of Care Filed: 04/25/2023 14:43 Note Text: PHARMACY BEDSIDE DELIVERY SERVICE Patient Name: Erin Canales The marked outpatient medications were filled at [facility] pharmacy and picked up at the pharmacy [...] your Primary Care Provider. Merlin Reese PAGER: [phone] April 25, 2023 2:42 PM [facility] 03-29-2023 Note HNO ID: [id number] Author: Shweta Sol MD Service: ? 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 This developed [...] mouth once daily. Allergies: ALLERGIES Allergen Reactions Rcapvgf-Bsn-Hky Red* Other: See Comments Cannot walk when [...] Past Histories independently gathered by the clinical work station support specialist and the remaining scribed note [...] March 29, 2023 2:01 PM Provider Attestation: I, Shweta Sol MD, personally performed the services described in this documentation. All medical record entries made by the scribe were at my direction and in my presence. I have reviewed the chart and discharge instructions (if applicable) and agree that the record reflects my personal performance and is accurate and complete. Dr. Shweta Sol MD March 29, 2023 2:34 PM [facility] 03-21-2023 Miscellaneous Notes I see that it [...] need a PAC appt please advise. 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 CHADS VASc 5 anticoagulated on Coumadin Denies bleeding diatheses [facility] Work Phone: 02-27-2023 Miscellaneous Notes Associated Problem(s): Pacemaker November 22, 2022 Garcia 2272 dual-chamber permanent pacemaker 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 CHADS VASc [...] 2.5/30mm Diag, LAD, OM3 patent stents pRCA BAGGAGE SMASHER Nov 21, 2022 Repeat cath: no changes Current daily activity 4 METS without concerning symptoms Associated Problem(s): High risk medication use Amiodarone Surveillance testing December 2022 Associated Problem(s): Abnormal echocardiogram October 2021 echo LVEF 55 to 60% LVH mild LAE moderate dilated MR mild RVSP 40 mmHg documented in this encounter [facility] Work Phone: 02-27-2023 Evaluation + Plan note Associated Problem(s): Paroxysmal atrial fibrillation (CMS/HCC) EKG in office a paced, underlying sinus rhythm. QTc 432. [facility] Work Phone: 02-27-2023 Evaluation + Plan note Associated Problem(s): Statin intolerance September 2022 LDL 90, HDL 46 Briefly discussed Repatha and politely declines due to concerns regarding cost and self injections. [facility] Work Phone: 02-27-2023 Evaluation + Plan note Associated Problem(s): Essential hypertension Optimal in office [facility] Work Phone: 02-27-2023 Evaluation + Plan note Associated Problem(s): Arteriosclerosis of coronary artery September 25, 2022 pCX PCI/Stanley 2.5/30mm Diag, LAD, OM3 patent stents pRCA BAGGAGE SMASHER Nov 21, 2022 Repeat cath: no changes Current daily activity 4 METS without concerning symptoms [facility] Work Phone: 02-27-2023 Evaluation + Plan note Associated Problem(s): High risk medication use Amiodarone Surveillance testing December 2022 [facility] Work Phone: 02-26-2023 Evaluation + Plan note Associated Problem(s): Abnormal echocardiogram October 2021 echo LVEF 55 to 60% LVH mild LAE moderate dilated MR mild RVSP 40 mmHg [facility] Work Phone: 02-26-2023 History of Presen [...] down on Sundays to get ready for congregation. She denies any dyspnea on exertion, denies [...] (Beta-Adrenergic Blocking Agts) Other bradycardia Ibuprofen Hives Netcqck-Oka-Dgi Reductase Inhibitors Myalgia and Other Current Outpatient Medications Medication Instructions amiodarone (PACERONE) 200 mg, oral, Daily aspirin 81 mg chewable tablet Take one tablet by mouth twice a week cholecalciferol (Vitamin D-3) 50 mcg (2,000 unit) capsule 1 capsule, oral, Daily clopidogrel (PLAVIX) 75 mg, oral, Daily cyanocobalamin (Vitamin B-12) 100 mcg tablet 1 tablet, oral, Daily fish oil concentrate (Walnut-3) 120-180 mg capsule 1 capsule, oral, Daily [...] mg, oral, See admin instructions, Per the [facility] Assessment: Abnormal echocardiogram October 2021 echo LVEF 55 to 60% LVH mild LAE moderate dilated MR mild RVSP 40 mmHg High risk medication use Amiodarone Surveillance testing December 2022 Arteriosclerosis of coronary artery September 25, 2022 pCX PCI/Campbell 2.5/30mm Diag, LAD, OM3 patent stents pRCA BAGGAGE SMASHER Nov 21, 2022 Repeat cath: no changes [...] Dr. Olivarez 6 months Mickey James MSN, AUDIENCE COORDINATOR-SHIP DESIGN TEACHER, [facility] Please excuse any errors in grammar or translation related to this dictation. Voice recognition software was utilized to prepare this document. documented in this encounter [facility] Work Phone: 02-26-2023 Instructions MAGALI Phan - [...] Olivarez 6 months documented in this encounter [facility] Work Phone: 12-13-2022 Note HNO ID: [id number] Author: Jae Adkins RN Service: ? 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 This developed [...] Allergies: ALLERGIES Allergen Reactions Motrin [Ibuprofen] Unknown Zlhdkzj-Sox-Udg Red* Other: See Comments Cannot walk when [...] Past Histories independently gathered by the clinical work station support specialist and the remaining scribed note [...] complete. 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 This developed [...] Allergies: ALLERGIES Allergen Reactions Motrin [Ibuprofen] Unknown Qyizzhg-Lvj-Cnm Red* Other: See Comments Cannot walk when [...] Past Histories independently gathered by the clinical work station support specialist and the remaining scribed note [...] December 13, 2022 documented in this encounter [facility] 11-24-2022 Discharge summary Note Date/Time November 24, 2022 10:58am [facility] [address] [place] [address] Discharge Summary Signed Patient: Erin Canales MR#: [id number] : 1935 Acct:[id number] Age/Sex: 87 / F Adm Date: 3 Loc: Room: [address] [place] [address]: Danilo Drummond MD Copies to: MD Danilo Sparks MD~ Providers Date of Discharge: 11/24/22 Discharging Provider: Danilo Drummond Primary Care Provider: oLs Chaudhary Consults: 11/17/22 21:47 Consult to Cardiology [...] non-ST elevation [place]. She was seen by supervisor hot strip mill who recommended cardiac catheter. Please refer to [...] ask her primary care doctor to obtain [facility] record entirely to address abnormalities seen [...] COR Angio - W Merlin Michel DO Operation Date: 11/22/22 10:30 Actual [...] % (Auto) 68.1, Lymph % (Auto) 20.3, [place] % (Auto) 8.8, Eos % (Auto) 1.7, Baso % (Auto) 1.1, Nucleat RBC Rel Count 0.1, Neut # (Auto) 4.0, Lymph # (Auto) 1.2, Davie # (Auto) 0.5, Eos # (Auto) 0.1, [...] oriented to place, time and person HEENT: [place] conjunctiva and NL buccal mucosa Neck: Supple, [...] with nurse for incision check in the [facility] Office on 11/29/2022 at 2:00pm. 2. Chest x-ray to be done the day of device check at [facility] on 02/19/2023. 3. Pacemaker/ICD clinic appointment at [facility] on 02/19/2023 at 10:00am . 4. Office visit with Mickey James NP in the [facility] Office on 02/26/2023 at 1:00pm. [] I may not have addressed or treated all of your medical illnesses or the abnormal blood work or imaging studies during this hospitalization. Please ask your primary care provider to obtain [facility] records entirely to follow up on [...] symptoms worsen or return. Discharging you from [facility] does not mean that your medical [...] unit) Tablet 50 mcg PO DAILY omega 8-jpr-btl-fish oil [Fish Oil] 1,000 mg (120 mg-180 [...] needed.) Documented By: Danilo Drummond MD 11/24/22 1056 Signed By: <Electronically signed by Danilo Drummond MD> 11/24/[address] [place] [address] Ctr Work Phone: 1(890) 284-208608-17-2023 Progress note Author Danilo Drummond [facility] November 23, 2022 4:11pm Note Date/Time November 23, 2022 4: 11pm [facility] [address] [place] [address] Hospitalist Progress Note Signed Patient: Erin Canales MR#: [id number] : 1935 Acct:[id number] Age/Sex: 87 / F Adm Date: 3 Loc: Room: [address] [place] [address] Type: ADM IN Attending Dr: Danilo Drummond [...] oriented to place, time and person HEENT: [place] conjunctiva and NL buccal mucosa Neck: Supple, [...] DAILY JOHN Aspirin 81 mg 11/19/22 09:00 11/23/22 09:01 Aspirin 81 Mg Tab.Chew PO 11/19/23 08:59 Not Given DAILY JOHN Clopidogrel Bisulfate 75 mg 11/18/22 09:00 11/23/22 09:01 Clopidogrel Bisulfate 75 Mg Tablet PO 11/18/23 08:59 Not Given DAILY [facility] Docusate Sodium 100 mg 11/22/22 11:42 Docusate 100 Mg Capsule PO 11/22/23 11:41 QHS PRN Constipation Sodium Chloride 1,000 mls @ 20 mls/hr 11/22/22 10:00 11/22/22 12:20 0.9% Sodium Chloride 1,000 Ml IV 11/22/23 09:59 20 mls/hr .Q24H JOHN Infusion Isosorbide Mononitrate 60 mg 11/18/22 09:00 11/23/22 09:01 Isosorbide Mononitrate 24hr Er 60 Mg Tab.Er.24h PO 11/18/23 08:59 Not Given DAILY JOHN Lisinopril 10 mg 11/18/22 09:00 11/22/22 07:56 Lisinopril 10 Mg Tablet PO 11/18/23 08:59 10 mg DAILY JOHN Administration Morphine Sulfate 4 mg 11/22/22 11:42 [...] by Danilo Drummond MD> 11/23/22 [address] [facility] Work Phone: 1(161) 646-330808-17-2023 Progress note Author W Anand [facility] November 23, 2022 11:21am Note Date/Time November 23, 2022 11 :21am [facility] [address] [place] [address] Cardiology Progress Note Signed Patient: Erin Canales MR#: [id number] : 1935 Acct:[id number] Age/Sex: 87 / F Adm Date: 3 Loc: Room: [address] [place] [address] Type: ADM IN Attending Dr: Danilo Drummond [...] signed by Pearl Michel DO> 11/23/22 [address] [facility] Work Phone: 1(331) 271-343708-17-2023 [facility] Discharge instructions Additional Instructions SNF [...] with nurse for incision check in the [facility] on 11/29/2022 at 2:00pm. 2. Chest x-ray to be done the day of device check at [facility] on 02/19/2023. 3. Pacemaker/ICD clinic appointment at [facility] on 02/19/2023 at 10:00am . 4. Office visit with Mickey James NP in the [facility] Office on 02/26/2023 at 1:00pm. DISCHARGE INSTRUCTIONS FOR CARDIAC BUSINESS CONTINUITY MANAGEMENT DIRECTOR PHONE NUMBER OF YOUR PHYSICIAN: [phone] PROCEDURE: Heart Cath The following instructions have [...] cold, numb, blue or white, call the supervisor hot strip mill immediately. 4. ACTIVITY: You are advised to [...] bottle, follow the instructions on the bottle. [facility] is not responsible for incorrect prescription [...] ask your primary care provider to obtain [facility] records entirely to follow up on [...] symptoms worsen or return. Discharging you from [facility] does not mean that your medical care ends here and now. You may still need additional monitoring, work up, investigation, and treatment plan to be handled from this point on by out patient providers including your primary care provider and specialists. For any medication question, please contact your retail pharmacist or your primary care provider. Thank you.[facility] Work Phone: 1(884) 184-273308-16-2023 Progress note Author Danilo Drummond [facility] November 22, 2022 8:50am Note Date/Time November 22, 2022 8: 50am [facility] [facility] [address] [place] [address] Hospitalist Progress Note Signed Patient: Erin Canales MR#: [id number] : 1935 Acct:[id number] Age/Sex: 87 / F Adm Date: 3 Loc: 3T Room: [address] [place] [address] Type: ADM IN Attending Dr: Danilo Drummond [...] oriented to place, time and person HEENT: [place] conjunctiva and NL buccal mucosa Neck: Supple, [...] 11/22/22 09:00 Lactated Ringers IV 11/22/22 23:17 .[id number] JOHN Isosorbide Mononitrate 60 mg 11/18/22 09:00 [...] by Danilo Drummond MD> 11/22/22 0850 [facility] Work Phone: 1(167) 748-468108-15-2023 Progress note Author Akhil Olivarez [facility] November 21, 2022 2:54pm Note Date/Time November 21, 2022 2: 54pm [facility] [address] [place] [address] Cardiology Progress Note Signed Patient: Erin Canales MR#: [id number] : 1935 Acct:[id number] Age/Sex: 87 / F Adm Date: 3 Loc: 3T Room: [address] [place] [address] Type: ADM IN Attending Dr: Danilo Drummond [...] implantation tomorrow. Documented By: Akhil Olivarez MD 1452 Signed By: <Electronically signed by MD Akhil Olivarez> 11/21/22 1454 [facility] Work Phone: 1(140) 798-489208-15-2023 Progress note Author Danilo Drummond [facility] November 21, 2022 9:06am Note Date/Time November 21, 2022 9: 06am [facility] [address] [place] [address] Hospitalist Progress Note Signed Patient: Erin Canales MR#: [id number] : 1935 Acct:[id number] Age/Sex: 87 / F Adm Date: 3 Loc: Room: [address] [place] [address] Type: ADM IN Attending Dr: Danilo Drummond [...] oriented to place, time and person HEENT: [place] conjunctiva and NL buccal mucosa Neck: Supple, [...] Dose Route Start Last Admin Trade Name [facility] PRN Reason Stop Dose Admin Acetaminophen 1,000 [...] Tablet PO 11/20/23 08:29 Not Given DAILY@0800 [facility] Tramadol HCl 50 mg 11/17/22 21:47 Tramadol [...] signed by Danilo Drummond MD> 11/21/22 0906 [facility] Work Phone: 1(248) 717-153908-14-2023 Progress note Author Danilo Drummond [facility] November 20, 2022 1:09pm Note Date/Time November 20, 2022 1: 06pm [facility] [address] [place] [address] Progress Note Signed Patient: Erin Canales MR#: [id number] : 1935 Acct:[id number] Age/Sex: 87 / F Adm Date: 3 Loc: Room: [address] [place] [address] Type: ADM IN Attending Dr: Danilo Drummond [...] done. Documented By: Danilo Drummond MD 11/20/22 1305 Signed By: <Electronically signed by Danilo Drummond MD> 11/20/22 7199 [facility] Work Phone: 1(452) 213-399208-14-2023 Progress note Author Akhil Olivarez [facility] November 20, 2022 12:36pm Note Date/Time November 20, 2022 12 :36pm [facility] [address] [place] [address] Cardiology Progress Note Signed Patient: Erin Canales MR#: [id number] : 1935 Acct:[id number] Age/Sex: 87 / F Adm Date: 3 Loc: 3T Room: [address] [place] [address] Type: ADM IN Attending Dr: Danilo Drummond [...] % (Auto) 65.5 Lymph % (Auto) 21.8 Davie % (Auto) 9.8 Eos % (Auto) 2.0 Baso % (Auto) 0.9 Nucleat RBC Rel Count 0.1 Neut # (Auto) 3.5 Lymph # (Auto) 1.2 Davie # (Auto) 0.5 Eos # (Auto) 0.1 [...] MPV Neut % (Auto) Lymph % (Auto) Davie % (Auto) Eos % (Auto) Baso % (Auto) Nucleat RBC Rel Count Neut # (Auto) Lymph # (Auto) Davie # (Auto) Eos # (Auto) Baso # [...] by MD Akhil Olivarez> 11/20/22 1236 [facility] Work Phone: 1([phone]) 160-589008-14-2023 Progress note Author W Anand [facility] November 20, 2022 11:23am Note Date/Time November 20, 2022 11 :21am [facility] [address] [place] [address] Cardiology Progress Note Signed Patient: Erin Canales MR#: [id number] : 1935 Acct:[id number] Age/Sex: 87 / F Adm Date: 3 Loc: Room: [address] [place] [address] Type: ADM IN Attending Dr: Danilo Drummond [...] % (Auto) 65.5 Lymph % (Auto) 21.8 Davie % (Auto) 9.8 Eos % (Auto) 2.0 Baso % (Auto) 0.9 Nucleat RBC Rel Count 0.1 Neut # (Auto) 3.5 Lymph # (Auto) 1.2 Davie # (Auto) 0.5 Eos # (Auto) 0.1 [...] MPV Neut % (Auto) Lymph % (Auto) Davie % (Auto) Eos % (Auto) Baso % (Auto) Nucleat RBC Rel Count Neut # (Auto) Lymph # (Auto) Davie # (Auto) Eos # (Auto) Baso # [...] Code(s): 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 Documented By: Pearl Michel DO 11/20/221119 Signed By: <Electronically signed by Pearl Michel DO> 11/20/223 [facility] Work Phone: 1([phone]) 837-817408-14-2023 Progress note Author Danilo Drummond [facility] November 20, 2022 8:07am Note Date/Time November 20, 2022 8: 07am [facility] [address] [place] [address] Hospitalist Progress Note Signed Patient: Erin Canales MR#: [id number] : 1935 Acct:[id number] Age/Sex: 87 / F Adm Date: 3 Loc: Room: [address] [place] [address] Type: ADM IN Attending Dr: Danilo Drummond [...] oriented to place, time and person HEENT: [place] conjunctiva and NL buccal mucosa Neck: Supple, [...] 11/20/22 08:15 Lactated Ringers IV 11/20/22 21:34 .[id number] JOHN Isosorbide Mononitrate 60 mg 11/18/22 09:00 11/19/22 10:44 Isosorbide Mononitrate 24hr Er 60 Mg Tab.Er.24h PO 11/18/23 08:59 60 mg DAILY JOHN Administration Lisinopril 10 mg 11/18/22 09:00 11/19/22 10:44 Lisinopril 10 Mg Tablet PO 08/11/24 08:59 10 mg DAILY JOHN Administration Nitroglycerin [...] 10 Mg Tablet PO 11/21/23 07:59 DAILY@0800 JOHN Tramadol HCl 50 mg 11/17/22 [...] by Danilo Drummond MD> 11/20/22 0807 [facility] Work Phone: 1(627) 947-646908-13-2023 Progress note Author Ailyn Meng [facility] November 19, 2022 3:01pm Note Date/Time November 19, 2022 11 :19am [facility] [address] [place], [place] [address]ist Progress Note Signed Patient: Erin Canales MR#: [id number] : 1935 Acct:[id number] Age/Sex: 87 / F Adm Date: 3 Loc: 3T Room: [address] [place] [address] Type: ADM INOo Attending Dr: Ailyn Meng [...] signed by Ailyn Meng MD> 11/19/22 1501 [facility] Work Phone: 1([phone]) 193-281308-13-2023 Progress note Author Akhil Olivarez [facility] November 19, 2022 11:09am Note Date/Time November 19, 2022 11 :09am [facility] [address] [place] [address] Cardiology Progress Note Signed Patient: Erin Canales MR#: [id number] : 1935 Acct:[id number] Age/Sex: 87 / F Adm Date: 3 Loc: Room: [address] [place] [address] Type: ADM INOo Attending Dr: Ailyn Meng [...] Code(s): 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 Documented By: Akhil Olivarez MD 1104 Signed By: <Electronically signed by MD Akhil Olivarez> 11/19/22 7475 [facility] Work Phone: [phone] 806-551608-12-2023 Consult note Author Akhil Olivarez [facility] November 18, 2022 4:11pm Note Date/Time November 18, 2022 4: 11pm [facility] [address] [place], [place] [id number] Cardiology Consult Note Signed Patient: Erin Canales MR#: [id number] : 1935 Acct:[id number] Age/Sex: 87 / F Adm Date: 3 Loc: Room: [address] [place] [address] Type: ADM INOo Attending Dr: Ailyn Meng [...] additional complaints, except as documented [facility] Medical History (HFpEF) heart failure with preserved [...] PO DAILY 11/26/19 [History Confirmed 11/17/22] omega 1-nvo-pii-fish oil 1,000 mg (120 mg-180 mg) capsule [...] tablet (Vitamin C) 2,000 mg PO BID [id number]/16/23 [History Confirmed 11/17/22] aspirin 81 mg tablet,delayed release 81 mg PO 2XW 09/22/22 [History Confirmed 09/25/22] cartilage 40 mg-collagen II 10 mg-boron 5 mg-hyaluronate 3.3 mg tablet (Brainscape) 1 tab PO DAILY 09/22/22 [History Confirmed [...] Lymph # (Auto) 1.0 1.2 (1.00-4.8) x10E3/uL Davie # (Auto) 0.5 0.5 (0.0-0.8) x10E3/uL Eos [...] Code(s): I25.10 - Atherosclerotic heart disease of [place] coronary artery without angina pectoris (3) Sinus [...] on Sunday. Documented By: Akhil Olivarez MD 7940 Signed By: <Electronically signed by MD Akhil Olivarez> 11/18/22 1417 [facility] Work Phone: 1(470) 570-657608-12-2023 Progress note Author Ailyn Meng [facility] November 18, 2022 1:17pm Note Date/Time November 18, 2022 12 :46pm [facility] [address] [place], [place] [id number] Hospitalist Progress Note Signed Patient: Erin Canales MR#: [id number] : 1935 Acct:[id number] Age/Sex: 87 / F Adm Date: 3 Loc: 3T Room: [address] [place] [address] Type: ADM INOo Attending Dr: Ailyn Meng [...] 11:09 11/18/22 11:09 11/18/22 11:09 11/18/22 11:09 Narrative: General: Awake, A&O x 3, [...] Tablet PO 11/18/23 08:59 75 mg DAILY OJHN Administration Docusate Sodium 100 mg 11/17/22 21:47 Docusate 100 Mg Capsule PO 11/17/23 21:46 QHS PRN Constipation Isosorbide Mononitrate 60 mg 11/18/22 09:00 11/18/22 08:25 Isosorbide Mononitrate 24hr Er 60 Mg Tab.Er.24h PO 11/18/23 08:59 60 mg DAILY JONH Administration Lisinopril 10 mg 11/18/22 09:00 11/18/22 [...] plan. MD Reza Documented By: Mickey Nathan DO, RES 11/18/22 123 7 Signed By: <Electronically signed by DO SAUL Nathan> 11/18/22 1316 <Electronically signed by Ailyn Meng MD> 11/18/22 1317 [facility] Work Phone: 1([phone]) 472-979508-12-2023 History and physical note Author Jamie Hathaway [facility] November 17, 2022 11:08pm Note Date/Time November 17, 2022 11 :00pm [facility] [address] [place] [address] Hospitalist H&P Signed Patient: Erin Canales MR#: [id number] : 1935 Acct:[id number] Age/Sex: 87 / F Adm Date: 3 Loc: Room: [address] [place] [address] Type: ADM INOo Attending Dr: Jamie Hathaway [...] as noted in the HPI [facility] Medical History (HFpEF) heart failure with preserved [...] PO DAILY 11/26/19 [History Confirmed 09/25/22] omega 3-pck-kxe-fish oil 1,000 mg (120 mg-180 mg) capsule [...] 10 mg-boron 5 mg-hyaluronate 3.3 mg tablet ([employer]) 1 tab PO DAILY 09/22/22 [History Confirmed [...] % (Auto) 17.1 % (.) 11/17/22 18:44 Davie % (Auto) 7.8 % (.) 11/17/22 18:44 Eos % (Auto) 0.8 % (.) 11/17/22 18:44 Baso % (Auto) 0.8 % (.) 11/17/22 18:44 Nucleat RBC Rel Count 0.2 /100 WBC (0-0.5) 11/17/22 18:44 Neut # (Auto) 4.3 x10E3/uL (1.8-7.7) 11/17/22 18:44 Lymph # (Auto) 1.0 x10E3/uL (1.00-4.8) 11/17/22 18:44 Davie # (Auto) 0.5 x10E3/uL (0.0-0.8) 11/17/22 18:44 [...] 1 Documented By: Jamie Hathaway MD 11/17/22 3832 Signed By: <Electronically signed by Jamie Hathaway MD> 11/17/22 5459 [facility] Work Phone: 1(940) 365-387406-19-2023 Discharge summary Author Pearl Michel [facility] September 25, 2022 1:06pm Note Date/Time September 25, 2022 1:03 pm [facility] [address] [place] [address] Discharge Summary Signed Patient: Erin Canales MR#: [id number] : 1935 Acct:[id number] Age/Sex: 87 / F Adm Date: 3 Loc: Room: [address] [place] [address]: Pearl Michel DO Copies to: MD Pearl Sparks DO~ Providers Date of Discharge: 09/25/22 Discharging [...] doctor or pharmacist, without first calling the supervisor hot strip mill who implanted the stent. If you require [...] weight lifting, stair steppers, etc. until the supervisor hot strip mill approves these activities. Check with the supervisor hot strip mill on your first follow-up visit. CALL YOUR PHYSICIAN at [phone]: -If bleeding should occur from the catheter insertion site- apply pressure to the site then immediately call us. -Report any fever, redness, drainage, increased swelling, or firmness at the catheter insertion site. Some bruising or slight swelling may be present at thetime of discharge. -Should arm or leg become cold, numb, white, or blue, contact the supervisor hot strip mill immediately. -IF you should experience episodes of [...] is recommended. Please call Central Scheduling at [phone] to schedule your appointment.] The attending supervisor hot strip mill or [facility] nurse clinician should provide you with specific instructions regarding activity, diet, medications, and further follow up for you. Follow the medication instructions provided on your discharge. If the dosages and instructions on this sheet differ from the dosage and instructions on the bottle, follow the instructions on the bottle. [facility] is not responsible for incorrect prescription [...] unit) Tablet 50 mcg PO DAILY omega 3-nhn-htu-fish oil [Fish Oil] 1,000 mg (120 mg-180 [...] - Documented By: Pearl Michel DO 09/25/22 3042 Signed By: <Electronically signed by Pearl Michel DO> 09/25/22 1977 [facility] Work Phone: 1([phone]) 177-189706-19-2023 Procedure [facility]06-19-2023 Procedure [facility]05-19-2023 Note HNO ID: [id number] Author: Shweta Sol MD Service: ? 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 This developed [...] Past Histories independently gathered by the clinical work station support specialist and the remaining scribed note accurately describes my personal service to the patient. 30 Minutes total visit spent face to face with patient. Greater than 50% of the time was spent for counseling and coordination of care, dis (more content not included)...[id number] Consult note Author Geeta Bourgeois [facility] October 29, 2021 11:14am Note Date/Time October 29, 2021 10:0 8am [facility] [address] [place] [address] Neurology Consult Note Signed Patient: Erin Canales MR#: [id number] : 1935 Acct:[id number] Age/Sex: 86 / F Adm Date: 2 Loc: Room: [address] [place] [address] Type : ADM INOo Attending Dr: Kale Ross MD Copies to: MD Geeta Underwood DO Pamela Sue Cramer, SHIP DESIGN TEACHER~ HPI Consult Date: 10/29/21 Moose Hunter: Geeta Bourgeois DO Reason for consult: weakness [...] (Updated 10/28/21 @ 16:08 by Tatyana Madrid, ANP-) (HFpEF) heart failure with preserved [...] PO DAILY 11/26/19 [History Confirmed 10/28/21] omega 6-rmt-las-fish oil 1,000 mg (120 mg-180 mg) capsule [...] of dysmetria with good rapid alternating movements [id number] Tone is physiologic Patient is intact to [...] Estrada Jr., D.O.10/28/2021 7:31 PM Dictation Location: [place] [address] Head CTA 10/28/21 12:09 IMPRESSION: 1. Noncontrast [...] Estrada Jr., D.O.10/28/2021 1:35 PM Dictation Location: [place] [address] Therapy Recommendations Therapy Recommendations: OT Recommendations OT [...] MRA and CTA that showed a left HOOP RIVETER occlusion versus hypoplasia but really there is [...] stroke MRA and CTA showed the left HOOP RIVETER occlusion versus hypoplasia but no other significant [...] <Electronically signed by DO Geeta Bourgeois> 10/29/21 1114 [facility] Work Phone: 1([phone]) 710-645407-22-2022 Progress note Author Kale Ross [facility] October 28, 2021 4:56pm Note Date/Time October 28, 2021 11:5 2am [facility] [address] [place] [address] Hospitalist Progress Note Signed with Silvana Patient: Erin Canales MR#: [id number] : 1935 Acct:[id number] Age/Sex: 86 / F Adm Date: 2 Loc: Room: 0L5357-5 Type : ADM INOo Attending Dr: Kale Ross MD Copies to: ~ ADDENDUM1 I personally saw this patient on the day of the encounter, reviewed the history,performed the turner elements of the exam and formulated the plan of care and confirmed the nurse practitioners/residents/development intern written note. Addendum Documented By: Kale [...] completing dosing today. She is reportingpain left jain to ear area that is alleviated with [...] URI 10/21 Recent UTI Enterococcus Faecalis 10/21 Meta Palsy, left sided 10/25 ?new meds this [...] 2 1152 Signed By: <Electronically signed by ALCON-BENJAMIN Madrid> 10/28/21 1616 <Electronically signed by Kale Ross MD> 10/28/21 1653 [facility] Work Phone: 1([phone]) 378-452107-22-2022 History and physical note Author Nguyễn Langston [facility] October 28, 2021 4:55am Note Date/Time October 28, 2021 4:55 am [facility] [address] [place] [address] Hospitalist H&P Signed Patient: Erin Canales MR#: [id number] : 1935 Acct:[id number] Age/Sex: 86 / F Adm Date: 2 Loc: ER Room: Type: [facility] Attending Dr: Copies to: MD Summer [...] PO DAILY 11/26/19 [History Confirmed 10/25/21] omega 5-tkp-kto-fish oil 1,000 mg (120 mg-180 mg) capsule [...] % (Auto) 13.2 % (.) 10/28/21 01:45 Davie % (Auto) 7.6 % (.) 10/28/21 01:45 Eos % (Auto) 0.0 % (.) 10/28/21 01:45 Baso % (Auto) 0.5 % (.) 10/28/21 01:45 Neut # (Auto) 4.6 x10E3/uL (1.8-7.7) 10/28/21 01:45 Lymph # (Auto) 0.8 x10E3/uL (1.00-4.8) L 10/28/21 01:45 Davie # (Auto) 0.4 x10E3/uL (0.0-0.8) 10/28/21 01:45 [...] pH 6.0 (5.0-9.0) 10/28/21 03:00 Ur Specific [place] 1.012 (1.001-1.030) 10/28/21 03:00 Urine Protein Negative [...] Lovenox Documented By: Nguyễn Lopez MD 2 444 Signed By: <Electronically signed by Nguyễn Lopez MD> 10/28/21454 [facility] Work Phone: 1(998) [phone] History and physical note Author Nguyễn Langston [facility] October 28, 2021 4:55am Note Date/Time October 28, 2021 4:55 am [facility] [address] [place] [address] Hospitalist H&P Signed Patient: Erin Canales MR#: [id number] : 1935 Acct:[id number] Age/Sex: 86 / F Adm Date: 2 Loc: ER Room: Type: [facility] Attending Dr: Copies to: MD Summer [...] PO DAILY 11/26/19 [History Confirmed 10/25/21] omega 4-ejn-hhz-fish oil 1,000 mg (120 mg-180 mg) capsule [...] % (Auto) 13.2 % (.) 10/28/21 01:45 Davie % (Auto) 7.6 % (.) 10/28/21 01:45 Eos % (Auto) 0.0 % (.) 10/28/21 01:45 Baso % (Auto) 0.5 % (.) 10/28/21 01:45 Neut # (Auto) 4.6 x10E3/uL (1.8-7.7) 10/28/21 01:45 Lymph # (Auto) 0.8 x10E3/uL (1.00-4.8) L 10/28/21 01:45 Davie # (Auto) 0.4 x10E3/uL (0.0-0.8) 10/28/21 01:45 [...] pH 6.0 (5.0-9.0) 10/28/21 03:00 Ur Specific [place] 1.012 (1.001-1.030) 10/28/21 03:00 Urine Protein Negative [...] <Electronically signed by Nguyễn Lopez MD> 10/28/21 1744 [facility] Work Phone: Evaluation + Plan note No data available for this section [facility] Diagnosis Onset Date Resolution Status Chronic anticoagulation acut e Dehydration acute Dizziness acute Generalized weakness acute History of atrial fibrillation acute Hypertension acute Impaired mobility and activities of daily living acute 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 CAD (coronary artery disease) chronic [facility] Work Phone: Evaluation note* Diagnosis Onset Date Resolution Status Chronic anticoagulation acut e Dehydration acute Dizziness acute Generalized weakness acute History of atrial fibrillation acute Hypertension chronic Impaired mobility and activities of daily living acute 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 CAD (coronary artery disease) chronic [facility] Work Phone: Evaluation noteNo assessment information available [facility] Work Phone: evaluation note* Diagnosis Onset Date Resolution Status Chest pain acute [facility] Work Phone: Evaluation note* Diagnosis Onset Date Resolution Status Angina pectoris acute Chest pain acute History of heart artery stent acute Hypertension chronic Hyponatremia acute Paroxysmal atrial fibrillation acute Sinus bradycardia acute CAD (coronary artery disease) chronic [facility] Work Phone: Evaluation note* Diagnosis Alvarado's palsy- Primary Alvarado's palsy Drooping of mouth [facility] Arteriosclerosis of coronary artery- Primary Paroxysmal atrial fibrillation (CMS/HCC) 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 Pacemaker Cardiac pacemaker in situ Essential hypertension Unspecified essential hypertension Statin intolerance High risk medication use BMI 34.0-34.9,adult documented in this encounter [facility] Work Phone: Evaluation note* Diagnosis Post-operative state- Primary Other postprocedural status [facility] Diagnosis Onset Date Resolution Status Foreign body in left ear non eactive [facility] Work Phone: Evaluation note* Diagnosis Post-operative state- Primary Other postprocedural status Alvarado's palsy [facility] encounter [facility] NarrativeReturns for follow-up of [...] merits of diet and weight loss were reviewed.[facility] Krueger DO Work Phone: History of Present illness [...] appears no adjustments are necessary at this time.[facility] DO Work Phone: History of Present illness [...] appears no adjustments are necessary at this time.[facility] DO Work Phone: History of Present illness [...] merits of diet exercise and weight loss. [facility] Work Phone: History of Present illness [...] merits of diet and weight loss werereviewed. [facility] [employer] DO Work Phone: History of Present illness [...] medication regimen. She denies medication side effects. [facility] [employer] DO Work Phone: History of Present illness [...] of diet and weight loss were advocated. [facility] 250 DO Work Phone: History of Present [...] of diet and weight loss were advocated. [facility] 600 DO Work Phone: History of [...] of diet and weight loss were advocated. -[facility] [employer] DO Work Phone: History of Present illness [...] weight loss and she understands our recommendation. [facility] [employer] 250 DO Work Phone: History of Present [...] weight loss and she understands our recommendation. -[facility] 250 DO Work Phone: [facility] Work Phone: Hospital Discharge instructionsAmbulatory Orders* Initiate Home Health Time Frame: 1 Day, Location: Determined By Patient * PT/OT/SP OutPatient Referral Time Frame: 1 Day, Location: Determined By Patient Additional Instructions Home Health to manage care: - Full code - PT/OT eval and treat - Routine vital signs - Medication management and education -[facility] Work Phone: [facility] Work Phone: Hospital Discharge instructions No data available for this section [facility] Additional Instructions DISCHARGE [...] doctor or pharmacist, without first calling the supervisor hot strip mill who implanted the stent. If you require [...] weight lifting, stair steppers, etc. until the supervisor hot strip mill approves these activities. Check with the supervisor hot strip mill on your first follow-up visit. CALL YOUR PHYSICIAN at [phone]: -If bleeding should occur from the catheter insertion site- apply pressure to the site then immediately call us. -Report any fever, redness, drainage, increased swelling, or firmness at the catheter insertion site. Some bruising or slight swelling may be present at the time of discharge. -Should arm or leg become cold, numb, white, or blue, contact the supervisor hot strip mill immediately. -IF you should experience episodes of [...] is recommended. Please call Central Scheduling at [phone] to schedule your appointment.] The attending supervisor hot strip mill or [facility] nurse clinician should provide you with specific instructions regarding activity, diet, medications, and further follow up for you. Follow the medication instructions provided on your discharge. If the dosages and instructions on this sheet differ from the dosage and instructions on the bottle, follow the instructions on the bottle. [facility] is not responsible for incorrect prescription information provided by the patient during their visit. Do not stop your medications without consulting your health care provider. Please take the list with you to your next doctor's appointment.[facility] Work Phone: Hospital Discharge instructions Additional Instructions Do not stick anything in the ear canal especially if it could possibly hurt the ear canal May apply ointment around the ear canal for her infection healing May apply ice to the area May take Tylenol for discomfort Follow-up with family doctor Return to the ER for uncontrolled bleeding fever chills or any other concerns [facility] Work Phone: Progress note No data available for this section [facility] Consultation (Routine) - Authorized Specialty Diagnoses / Procedures Referred By Isaiac t Referred To Contact Cardiology Diagnoses Arteriosclerosis of coronary artery Procedures Follow Up In Cardiology Mickey James APRN-CNP [facility] [address], [address] [address] Akhil Olivarez MD [facility] [address], [address] [address] Referral ID Status Reason Start Date Expiration Date V isits Requested Visits Authorized [id number] Authorized 02/26/2023 02/26/2024 1 1 * Cardiovascular (Routine) - Pending Review Specialty Diagnoses / Procedures Referred By Contac t Referred To Contact Diagnoses Paroxysmal atrial fibrillation (CMS/HCC) High risk medication use Procedures ECG 12 lead (Clinic Performed) Mickey James APRN-JUAN CARLOS [facility] [address], [address] [address] Referral ID Status Reason Start Date Expiration Date V isits Requested Visits Authorized [id number] Pending Review 02/26/2023 02/26/2024 1 1 [facility] Work Phone: Summary Purpose Family History No [...] a 6 month follow-up of.[place] [facility] [place] due in AprilRUBAIRVIN CANALES is being seen for a 6 month follow-up of. ERIN CANALES is being seen for a 6 month follow-up of.Amiodarone [place] sent [place] [facility] [place] due in results.ERIN CANALES is [...] test done please contact our office at [phone] and press option #4 so that we may assist you in the problems. * Thank you for your compliance with this testing. * The Staff * [facility] * Please have done June 2022 * [...] lot. She did report that walking into [employer] last week was more difficult , she [...] doing as good as I am . Dora noted improvement in her dyspnea on exertion with addition of isosorbide, denies any type of side effects. She reports it made a big difference . Prior to office visit she went into the mall andambulated for 20 straight minutes without concerns. 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 ERIN UZAIR is being seen for a 6 month [...] artery disease) Chief Complaint i48.0 z79.899 PT preferably;Meta palsy Chief Complaint PT preferably;Meta palsy Angina, Cardiomyopathy, HTN Chief Complaint PT preferably;Meta palsy Angina, Cardiomyopathy, HTN Angina, Cardiomyopathy, HTN [...] artery disease) Chief Complaint I48.0 z79.899 sss Chief Complaint I48.0 z79.899 sss hearing aid peice stuck in ear Chief Complaint I48.0 z79.899 sss hearing aid peice stuck in ear lt ear bleeding Reason for Visit Foreign body in left ear Chief Complaint I48.0 z79.899 sss hearing aid peice stuck in ear lt ear bleeding headache, sob Reason for Visit Foreign body in left ear Chief Complaint sss hearing aid peice stuck in ear lt ear bleeding headache, sob sss Reason for Visit Foreign body in left ear Additional Source Comments INFORMATION SOURCE (unrecogn ized section and content) DATE CREATED AUTHOR 10/03/2017 [facility] DATE CREATED AUTHOR AUTHOR'S ORGANIZ ATION 08/04/2022 [employer] DATE CREATED AUTHOR AUTHOR'S ORGANIZ ATION 09/18/2022 [facility] DATE CREATED AUTHOR AUTHOR'S ORGANIZ ATION 09/18/2022 [facility] DATE CREATED AUTHOR AUTHOR'S ORGANIZ ATION 01/21/2023 [facility] DATE CREATED AUTHOR AUTHOR'S ORGANIZ ATION 04/06/2023 [facility] DATE CREATED AUTHOR AUTHOR'S ORGANIZ ATION 04/26/2023 [facility] DATE CREATED AUTHOR AUTHOR'S ORGANIZ ATION 07/27/2023 [facility] DATE CREATED AUTHOR AUTHOR'S ORGANIZ ATION 08/27/2023 [facility] DATE CREATED AUTHOR AUTHOR'S ORGANIZ ATION 08/29/2023 [facility] DATE CREATED AUTHOR AUTHOR'S ORGANIZ ATION 08/29/2023 [facility] Ambulatory Reason for Visit (unrecogniz ed section and content) Reason Comments Follow Up Reason Comments Follow-up S/p pm insert 3 Specialty Diagnoses / Procedures Referred By Contac t Referred To Contact Diagnoses Paroxysmal atrial fibrillation (CMS/HCC) High risk medication use Procedures ECG 12 lead (Clinic Performed) Mickey James, AUDIENCE COORDINATOR-SHIP DESIGN TEACHER [facility] [facility], [address] [place] [address] Referral ID Status Reason Start Date Expiration Date V isits Requested Visits Authorized [id number] Pending Review 02/26/2023 02/26/2024 1 1 Reason Comments General Questions Reason Comments Post Op Left eye wts Reason Comments Post Op Care Teams (unrecognized sec tion and content) Team Status: Inactive Member Role Status Dates Summer Breonna Yaw , RECREATION COUNSELOR-C Primary Care Provider Active Razia Alexander , MD RES Active Guillermo Sanders DO Emergency Provider Active Team Status: Active Member Role Status Lisbeth Summer Tidwell , RECREATION COUNSELOR-C Primary Care Provider Active Stephanie Locke Jr, MD Emergency Provider Active Nguyễn Lopez MD Admit Provider, Dianne goldstein Active Team Status: Inactive Member Role Status Lisbeth Summer Breonnapiter GaribayYaw , RECREATION COUNSELOR-C Primary Care Provider Active Pramod Bess DO Emergency Provider Active Team Status: Active Member Role Status Dates Summer Breonna Yaw , RECREATION COUNSELOR-C Primary Care Provider Active Team Status: Inactive Member Role Status Lisbeth Summer Breonna Tidwell , RECREATION COUNSELOR-C Primary Care Provider Active Stephanie Locke Jr, MD Emergency Provider Active Nguyễn Lopez MD Admit Provider Active Kale Ross MD Attending Provider Active Matt Servin DO Other Provider Active Team Status: Inactive Member Role Status Lisbeth Summer Tidwell , RECREATION COUNSELOR-C Primary Care Provider Active Akhil Olivarez MD Attending Provider Active Team Status: Inactive Member Role Status Lisbeth Summer Tidwell , RECREATION COUNSELOR-C Primary Care Provider Active Doug Montana MD Attending Provider Active Team Status: Inactive Member Role Status Lisbeth Summer Tidwell , RECREATION COUNSELOR-C Primary Care Provider Active Myron Villarreal DO Emergency Provider Active Team Status: Active Member Role Status Lisbeth Summer Tidwell , RECREATION COUNSELOR-C Primary Care Provider Active Elizabeth Zimmerman APRN RECREATION COUNSELOR-C Attending Provider A ctive Team Status: Inactive Member Role Status Lisbeth Summer Tidwell , RECREATION COUNSELOR-C Primary Care Provider Active Elizabeth Zimmerman APRN RECREATION COUNSELOR-C Attending Provider A ctive Team Status: Active Member Role Status Lisbeth Chaudhary MD Primary Care Provider Active Team Status: Inactive Member Role Status Lisbeth Michel DO Attending Provider Active Los Chaudhary MD Primary Care Provider Active Team Status: Active Member Role Status Lisbeth Chaudhary MD Primary Care Provider Active Philip Thompson , DO Emergency Provider Active Jamie Hathaway MD Admit Provider, Attending Pro vider Active Team Status: Inactive Member Role Status Lisbeth Chaudhary MD Primary Care Provider Active Philip Thompson , DO Emergency Provider Active Jamie Hathaway MD Admit Provider Active Danilo Drummond MD Attending Provider Active Team Status: Inactive Member Role Status Dates Los Chaudhary MD Primary Care Provider Active Akhil Olivarez MD Attending Provider Active Glost Placer Relationship Specialty Start Date End Date Los Chaudhary MD [address] [place] [facility] [place] [address] PCP - General Family Medicine 12/05/22 Glost Placer Relationship Specialty Start Date End Date Los Chaudhary MD [address] [place] [facility] [place] [address] PCP - General 07/05/22 Glost Placer Relationship Specialty Start Date End Date Los Chaudhary MD [address] [place] [facility] [place] [address] PCP - General Family Medicine 12/05/22 Glost Placer Relationship Specialty Start Date End Date Los Chaudhary MD [address] [place] [facility] [place] [address] PCP - General Family Medicine 12/05/22 Team Status: Inactive Member Role Status Dates Los Chaudhary MD Primary Care Provider Active Start: May 15, 2023 End: May 15, 2023 Akhil Olivarez MD Attending Provider Active Start: May 15, 2023 End: May 15, 2023 Team Status: Inactive Member Role Status Lisbeth Chaudhary MD Primary Care Provider Active Start: May 22, 2023 End: May 22, 2023 Akhil Olivarez MD Attending Provider Active Start: May 22, 2023 End: May 22, 2023 Team Status: Inactive Member Role Status Lisbeth Chaudhary MD Primary Care Provider Active Start: July 12, 2023 End: July 12, 2023 Summer Chen RECREATION COUNSELOR-C Attending Provider Active S tart: July 12, 2023 End: July 12, 2023 Team Status: Inactive Member Role Status Lisbeth Chaudhary MD Primary Care Provider Active Start: July 13, 2023 End: July 13, 2023 TIMUR OwensP- Emergency Provider Active Start: July 13, 2023 End: July 13, 2023 Glost Placer Relationship Specialty Start Date End Date Los Chaudhary MD [address] [facility] [place] [id number] PCP - General Family Medicine 12/05/22 Team Status: Inactive Member Role Status Dates Los Chaudhary MD Primary Care Provider Active Start: July 31, 2023 End: July 31, 2023 Arthur Ovalle PA-C Emergency Provider Active Start: July 31, 2023 End: July 31, 2023 Team Status: Inactive Member Role Status Dates Los Chaudhary MD Primary Care Provider Active Start: August 17, 2023 End: August 17, 2023 Akhil Olivarez MD Attending Provider Active Start: August 17, 2023 End: August 17, 2023 Goals (unrecognized section and content) Goals [...] or prosecute any alcohol or drug abuse patient.[facility] HospitalIn the event this information is protected by the Federal Confidentiality of Alcohol and Drug Abuse Patient Records regulations: The Federal rules restrict any use of the information to criminally investigate or prosecute any alcohol or drug abuse patient.[facility] HospitalIn the event this information is protected by the Federal Confidentiality of Alcohol and Drug Abuse Patient Records regulations: The Federal rules restrict any use of the information to criminally investigate or prosecute any alcohol or drug abuse patient.[facility] HospitalIn the event this information is protected by the Federal Confidentiality of Alcohol and Drug Abuse Patient Records regulations: The Federal rules restrict any use of the information to criminally investigate or prosecute any alcohol or drug abuse patient.[facility] FOR RECORDS PERTAINING TO PATIENTS WHO ARE [...] BE BASED ON THE PRIMARY CLINICAL RECORDS. [facility]. provides no warranty or guarantee of the accuracy or completeness of information in this document.
--- NOTE | 2023-08-30 06:25 | ED_ITS ---
HPI - Chest Pain General Chief Complaint: Shortness of Breath/Dyspnea Stated Complaint: CHEST PAIN Time Seen by Provider: 08/30/23 06:14 Source: patient Mode of arrival: ambulance History of Present Illness HPI narrative: This 88-year-old female with a history of coronary artery disease who has stents, a pacemaker and a history of atrial fibrillation who is on Coumadin and amiodarone and was recently placed on spironolactone due to lower extremity swelling is brought to the emergency department by EMS from home for evaluation of left-sided chest pain. The patient states she has had hard chest pains this started around 2 AM when awakening and has kept her up. She was also short of breath. She denies any dizziness or diaphoresis. There is no radiation of this pain into her arm, back or jaw. She has no abdominal pain nausea vomiting or diarrhea. She states for the past months she has had increasing swelling in her lower extremities. Her patient access registrar is Dr. Olivarez and her family physician is Dr. Jiang. The patient did recently have a fall on Mother's Day while at a local restaurant and struck the left side of her head. She was seen at [facility] at that time and had a CT scan done of her head and neck. At that time she states her INR was 4. She has no focal weakness numbness or tingling. She does have a left-sided facial droop and a history of Alvarado's palsy for the past 2 years. She has no new or focal neurologic deficits. Her speech are clear, cognition is intact and she is moving all extremities. She denies any recent fever, abdominal pain or back pain. She does have a history of occasional f alls. She states that she did not get out of bed this morning when she started having chest pain for fear of falling. Related Data Home Medications ?Medication ?Instructions ?Recorded ?Confirmed amiodarone 200 mg tablet 100 mg PO Q24H 11/06/22 08/30/23 aspirin 81 mg tablet,delayed 81 mg PO .twice a week 11/06/22 08/30/23 release (Adult Low Dose Aspirin) calcium carbonate 600 mg-vitamin 1 tab PO BID 11/06/22 08/30/23 D3 20 mcg (800 unit) chewable tablet (Caltrate 600 plus D) cholecalciferol (vitamin D3) 50 50 mcg PO DAILY 11/06/22 08/30/23 mcg (2,000 unit) capsule (Vitamin D3) clopidogrel 75 mg tablet 75 mg PO DAILY 11/06/22 08/30/23 isosorbide mononitrate 60 mg 60 mg PO DAILY 11/06/22 08/30/23 tablet,extended release 24 hr lisinopril 10 mg tablet 10 mg PO DAILY 11/06/22 08/30/23 nitroglycerin 0.4 mg sublingual 0.4 mg sublingual Q5M PRN chest 11/06/22 08/30/23 tablet pain nortriptyline 25 mg capsule 25 mg PO DAILY 11/06/22 11/06/22 omega 3 350 mg-dha 235 mg-epa 90 1 cap PO DAILY 11/06/22 08/30/23 mg-fish oil 597 mg capsule,delay rel ([place]-3) torsemide 5 mg tablet 10 mg PO DAILY 11/06/22 11/06/22 vitamin B complex (B 1 tab PO DAILY 11/06/22 08/30/23 Complex-Vitamin B12 tablet) warfarin 3 mg tablet 3 mg PO .three times a week 11/06/22 08/30/23 lactulose 10 gram/15 mL oral 15 ml PO BID PRN pain 07/20/23 08/30/23 solution tramadol 50 mg tablet 50 mg PO Q8H PRN pain 07/20/23 08/30/23 furosemide 40 mg tablet 40 mg PO DAILY 08/30/23 08/30/23 levothyroxine 75 mcg tablet mcg 08/30/23 spironolactone 25 mg tablet mg 08/30/23 torsemide 10 mg tablet mg 08/30/23 warfarin 6 mg tablet mg PO .four times a week 08/30/23 Allergies Allergy/AdvReac Type Severity Reaction Status Date / Time ibuprofen Allergy Intermediate Hives Verified 07/20/23 08:46 [id number] Reductase AdvReac Mild myalgia Verified 07/20/23 08:46 Inhibitor betablockers AdvReac bradycardia Uncoded 07/20/23 08:46 Review of Systems ROS Status of ROS 10 or more systems reviewed and unremark able except as noted in history and below [facility] Medical History (Updated 08/30/23 @ 06:51 by Pippa Wolf MD) Leg fracture, left ?S82.92XA - Unspecified fracture of left lower leg, initial encounter for closed fracture (ICD-10) Facial paralysis/[place] palsy ?G51.0 - Alvarado's palsy (ICD-10) Angina pectoris ?I20.9 - Angina pectoris, unspecified (ICD-10) Obesity ?E66.9 - Obesity, unspecified (ICD-10) Cardiomyopathy ?I42.9 - Cardiomyopathy, unspecified (ICD-10) Mitral regurgitation ?I34.0 - Nonrheumatic mitral (valve) insufficiency (ICD-10) Hyperlipidemia ?E78.5 - Hyperlipidemia, unspecified (ICD-10) Hypertension ?I10 - Essential (primary) hypertension (ICD-10) Coronary artery disease ?I25.10 - Atherosclerotic heart disease of [place] coronary artery without angina pectoris (ICD-10) Surgical History (Updated 11/06/22 @ 13:07 by Jamie Locke RN) History of hip surgery ?Z98.890 - Other specified postprocedural states (ICD-10) Stented coronary artery ?Z95.5 - Presence of coronary angioplasty implant and graft (ICD-10) Exam Narrative Exam Narrative: Vital signs and Nursing Notes reviewed: She is afebrile with a normal pulse, normal respiratory rate, blood pressure is elevated at 157/75, she is not hypoxic with pulse ox of 98% on room air General: Awake, alert, oriented elderly female, no respiratory distress HEENT: Normocephalic atraumatic, mucous membranes are moist and pink, eyes are clear, normal conjunctiva, vision is grossly intact, there is a bruise over the left eyebrow and resolving ecchymosis involving the left forehead periorbital area and left zygoma, she has a visible facial droop with a history of Alvarado's palsy with deficit on the left. Neck: Supple, no meningeal signs, no appreciable bruits Chest: Lungs are clear to auscultation with good air entry, there is no wheezing rhonchi or rales appreciated no accessory muscle use, patient is speaking in com plete sentences-no chest wall tenderness to palpation CVS: Irregularly irregular with a history of A-fib. Pulses are brisk and equal bilaterally ABD: Soft, nondistended, nontender, no rebound guarding or rigidity, bowel sounds are normal, no pulsatile masses appreciated Extremities: 3+ lower extremity pitting edema, no calf swelling or tenderness Skin: Skin is thin with scattered areas of ecchymosis Neuro: No focal deficits, fixed left-sided facial droop status post Alvarado's palsy diagnosis 2 years ago, chalk cutter strength intact, cognition is clear, upper and lower extremity strength and sensation is intact speech is clear Constitutional Vital Signs, click to edit/add: Last Vital Signs Pulse 92 H 08/30/23 06:10 Resp 19 08/30/23 06:40 BP 133/89 08/30/23 06:31 Pulse Ox 96 08/30/23 06:40 O2 Del Method Room Air 08/30/23 06:07 Course Vital Signs Vital signs: Vital Signs Blood Pressure 157/75 H 08/30/23 06:04 Pulse Rate 92 H 08/30/23 06:10 Respiratory Rate 19 08/30/23 06:40 Blood Pressure 133/89 08/30/23 06:31 Pulse Oximetry 96 08/30/23 06:40 Oxygen Delivery Method Room Air 08/30/23 06:07 MDM - Chest Pain MDM Narrative Medical decision making narrative: This 88-year-old female with a history of coronary artery disease who has history of atrial fibrillation and coronary stents and sees Dr. lOivarez at [facility] and Dr. Jiang presents for evaluation of nonradiating left-sided chest pain. She states the pain started around 2 AM and kept her up all night. She did not get out of bed to take anything because she was afraid she would fall. She denies any dizziness, diaphoresis or radiation of her pain. She does have some mild shortness of breath. She states that for the past month she has been having increasing swelling of her legs. She is on Coumadin for her A-fib. She also takes amiodarone and was recently started on spironolactone. Upon arrival her pain have resolved. EKG done upon arrival was atrial fibrillation. She has a large bruise over the left side of her face that she states is from a recent fall for which she was seen at [facility] and had CT scan of the head and neck done. Her blood pressure was mildly elevated upon arrival. She was chest pain-free and was given one baby aspirin. Routine cardiac labs including CBC with differential, comprehensive metabolic profile, BNP troponin and PT/INR were ordered. 1 view chest x-ray was also ordered. She will be signed out to the incoming physician at 7am pending xray, labs, re- evaluation and further disposition. Medical Records Data Attestation: I reviewed the patient's medical records. ECG Data Attestation: I personally reviewed and interpreted this ECG as follows: (Atrial fibrillation in the 70s, pacer spikes, interpretation limited by patient movement, left axis deviation, no acute ST segment elevation) Heart Score History: Moderately Suspicious ECG: Normal Age: >65 years Risk Factors: >3 Risk Factors/ HX of CAD:2 Discharge Plan Discharge Chief Complaint: Shortness of Breath/Dyspnea Clinical Impression: Chest pain Patient Disposition: Still a Patient Prescriptions / Home Meds: No Action lactulose 10 gram/15 mL solution 15 ml PO BID PRN (Reason: pain) tramadol 50 mg tablet 50 mg PO Q8H PRN (Reason: pain) amiodarone 200 mg tablet 100 mg PO Q24H clopidogrel 75 mg tablet 75 mg PO DAILY isosorbide mononitrate 60 mg tablet extended release 24 hr 60 mg PO DAILY aspirin [Adult Low Dose Aspirin] 81 mg tablet,delayed release (DR/EC) 81 mg PO .twice a week torsemide 5 mg tablet 10 mg PO DAILY warfarin 3 mg tablet 3 mg PO .three times a week Rx Instructions: Sunday, Sunday, Sunday [place]-3 350 mg-235 mg- 90 mg-597 mg capsule,delayed release(DR/EC) 1 cap PO DAILY lisinopril 10 mg tablet 10 mg PO DAILY cholecalciferol (vitamin D3) [Vitamin D3] 50 mcg (2,000 unit) capsule 50 mcg PO DAILY vitamin B complex [B Complex-Vitamin B12] Tablet 1 tab PO DAILY nitroglycerin 0.4 mg tablet, sublingual 0.4 mg sublingual Q5M PRN (Reason: chest pain) Caltrate 600 plus D 600 mg-20 mcg (800 unit) tablet,chewable 1 tab PO BID nortriptyline 25 mg capsule 25 mg PO DAILY furosemide 40 mg tablet 40 mg PO DAILY levothyroxine 75 mcg tablet spironolactone 25 mg tablet warfarin 6 mg tablet PO .four times a week Rx Instructions: Sunday, Sunday, , and Sunday torsemide 10 mg tablet Print Language: Arabic Referrals: Del Jiang MD [Primary Care Provider] - 1 week
[2023-08-30 06:46] LABS: Basophils Absolute Auto 0.1 10^3/uL (0.0-0.1); Eosinophils Absolute Auto 0.1 10^3/uL (0.0-0.7); Eosinophils Percent Auto 1.6 % (0.9-7.0); Hematocrit 42.4 % (36.0-48.0); Hemoglobin 13.2 g/dL (12.0-16.0); Immature Granulocytes Abs Auto 0.04 10^3/uL (0.00-0.03); Immature Granulocytes Pct Auto 0.5 % (0.0-0.5); Lymphocytes Absolute Auto 1.9 10^3/uL (1.2-3.8); Lymphocytes Percent Auto 24.1 % (20.5-60.0); Mean Corpuscular HGB Conc 31.1 g/dL (29.9-35.2); Mean Corpuscular Hemoglobin 32.7 pg (26.7-34.0); Mean Platelet Volume 10.9 fL (9.5-13.5); Monocytes Absolute Auto 0.8 10^3/uL (0.3-0.8); Monocytes Percent Auto 9.7 % (1.7-12.0); Neutrophils Percent Auto 63.1 % (43.0-75.0); Platelet Count 166 10^3/uL (150-450); Red Blood Count 4.04 10^6/uL (4.20-5.40); Red Cell Distribution Width 14.6 % (11.0-15.0); White Blood Count 7.9 10^3/uL (4.0-11.0)
--- NOTE | 2023-08-30 06:46 | XR_ITS ---
The [address] [address] Patient Name: MAGGIE CANALES MRN: [id number] date: 1935 Sex: F Assigned Patient Location: ER Current Patient Location: ED.MAIN Accession/Order Number: [id number] Exam Date: 08/30/2023 06:50 Report Date: 08/30/2023 07:07 At the request of: MELODIE MARKER Procedure: XR chest 1V EXAMINATION: XR chest 1V HISTORY: CP COMPARISON: No relevant comparison available. TECHNIQUE: AP portable FINDINGS: LUNGS: No significant pulmonary parenchymal abnormalities. VASCULATURE: No increased pulmonary vasculature. PLEURA: No pneumothorax, effusion, or pleural thickening. CARDIAC: Moderate cardiomegaly MEDIASTINUM: No visible mass or adenopathy. Left pacemaker BONES: No fracture or visible bone lesion. OTHER: Negative. XR/XR chest 1V IMPRESSION: Cardiomegaly Clear lungs Electronically authenticated by: ILSA COYLE Date: 08/30/2023 07:07
[2023-08-30 06:53] LABS: INR 2.72; Prothrombin Time 26.1 sec (9.0-11.6)
--- NOTE | 2023-08-30 07:00 | ECG_ITS ---
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: : 1935 Requested By: LOS CHAUDHARY Order Number: [id number] Reading MD: LOS CHAUDHARY Measurements Intervals [place] Rate: 44 P: -30641 MO: -08288 QRS: 121 QRSD: 94 T: 134 QT: 426 QTc: 375 Interpretive Statements 49696 Atrial fibrillation with slow ventricular response with aberrant conduction, or ventricular premature complexes 3334 Anterolateral myocardial infarction, age undetermined 3434 Septal myocardial infarction, age undetermined [address] depression, probably digitalis effect 5120 Possible right ventricular hypertrophy 9150 abnormal ECG No previous ECG available for comparison Electronically Signed On 09-04-2023 9:44:20 EDT by LOS CHAUDHARY
[2023-08-30 07:03] LABS: Alanine Aminotransferase 21 U/L (14-59); Albumin Level 3.6 g/dL (3.4-5.0); Alkaline Phosphatase 86 U/L (46-116); Anion Gap 15.5; Aspartate Amino Transferase 24 U/L (15-37); Bilirubin Total 0.9 mg/dL (0.2-1.0); Calcium 9.7 mg/dL (8.5-10.1); Carbon Dioxide 29.5 mmol/L (21.0-32.0); Chloride 101 mmol/L (98-107); Estimated GFR (African America 28 (>=60); Estimated GFR (Non-African Ame 23 (>=60); Globulin 3.7 g/dL; Glucose 133 mg/dL (74-106); Sodium 142 mmol/L (136-145); Total Protein 7.3 g/dL (6.4-8.2)
[2023-08-30] MEDS: ASPIRIN 81 MG TAB.CHEW PO (07:12)
[2023-08-30 07:21] LABS: Troponin I High Sensitivity 21.8 pg/mL (4.0-51.3)
[2023-08-30 08:46] LABS: Troponin I High Sensitivity 19.4 pg/mL (4.0-51.3)
--- NOTE | 2023-08-30 09:17 | ED.GENADUL1 ---
HPI HPI - General Adult General Chief complaint: Shortness of Breath/Dyspnea Stated complaint: CHEST PAIN Time Seen by Provider: 08/30/23 06:14 Source: patient Mode of arrival: ambulance History of Present Illness HPI narrative: The patient was initially seen by Dr. Wolf and signed out to me after discussing the case with her thoroughly. Please see her full history and physical exam. Related Data Home Medications ?Medication ?Instructions ?Recorded ?Confirmed amiodarone 200 mg tablet 100 mg PO Q24H 11/06/22 08/30/23 aspirin 81 mg tablet,delayed 81 mg PO .twice a week 11/06/22 08/30/23 release (Adult Low Dose Aspirin) calcium carbonate 600 mg-vitamin 1 tab PO BID 11/06/22 08/30/23 D3 20 mcg (800 unit) chewable tablet (Caltrate 600 plus D) cholecalciferol (vitamin D3) 50 50 mcg PO DAILY 11/06/22 08/30/23 mcg (2,000 unit) capsule (Vitamin D3) clopidogrel 75 mg tablet 75 mg PO DAILY 11/06/22 08/30/23 isosorbide mononitrate 60 mg 60 mg PO DAILY 11/06/22 08/30/23 tablet,extended release 24 hr lisinopril 10 mg tablet 10 mg PO DAILY 11/06/22 08/30/23 nitroglycerin 0.4 mg sublingual 0.4 mg sublingual Q5M PRN chest 11/06/22 08/30/23 tablet pain nortriptyline 25 mg capsule 25 mg PO DAILY 11/06/22 11/06/22 omega 3 350 mg-dha 235 mg-epa 90 1 cap PO DAILY 11/06/22 08/30/23 mg-fish oil 597 mg capsule,delay rel ([place]-3) torsemide 5 mg tablet 10 mg PO DAILY 11/06/22 11/06/22 vitamin B complex (B 1 tab PO DAILY 11/06/22 08/30/23 Complex-Vitamin B12 tablet) warfarin 3 mg tablet 3 mg PO .three times a week 11/06/22 08/30/23 lactulose 10 gram/15 mL oral 15 ml PO BID PRN pain 07/20/23 08/30/23 solution tramadol 50 mg tablet 50 mg PO Q8H PRN pain 07/20/23 08/30/23 furosemide 40 mg tablet 40 mg PO DAILY 08/30/23 08/30/23 levothyroxine 75 mcg tablet mcg 08/30/23 spironolactone 25 mg tablet mg 08/30/23 torsemide 10 mg tablet mg 08/30/23 warfarin 6 mg tablet mg PO .four times a week 08/30/23 Allergies Allergy/AdvReac Type Severity Reaction Status Date / Time ibuprofen Allergy Intermediate Hives Verified 07/20/23 08:46 Onkuyix-FSP-[id number] Reductase AdvReac Mild myalgia Verified 07/20/23 08:46 Inhibitor betablockers AdvReac bradycardia Uncoded 07/20/23 08:46 Opioid HPI Opioid Management Most Recent Opioid Data: Last Pain Scale 6 08/30/23 06:30 Last ED Pain Assessment 08/30/23 06:30 PFSH [facility] Medical History (Updated 08/30/23 @ 06:51 by Pippa Wolf MD) Leg fracture, left ?S82.92XA - Unspecified fracture of left lower leg, initial encounter for closed fracture (ICD-10) 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) Angina pectoris ?I20.9 - Angina pectoris, unspecified (ICD-10) Obesity ?E66.9 - Obesity, unspecified (ICD-10) Cardiomyopathy ?I42.9 - Cardiomyopathy, unspecified (ICD-10) Mitral regurgitation ?I34.0 - Nonrheumatic mitral (valve) insufficiency (ICD-10) Hyperlipidemia ?E78.5 - Hyperlipidemia, unspecified (ICD-10) Hypertension ?I10 - Essential (primary) hypertension (ICD-10) Coronary artery disease ?I25.10 - Atherosclerotic heart disease of [place] coronary artery without angina pectoris (ICD-10) Surgical History (Updated 11/06/22 @ 13:07 by Jamie Locke, RODOLFO) History of hip surgery ?Z98.890 - Other specified postprocedural states (ICD-10) Stented coronary artery ?Z95.5 - Presence of coronary angioplasty implant and graft (ICD-10) Exam Constitutional Vital Signs, click to edit/add: Last Vital Signs Pulse 94 H 08/30/23 08:30 Resp 13 08/30/23 08:30 BP 121/84 08/30/23 08:30 Pulse Ox 98 08/30/23 08:30 O2 Del Method Room Air 08/30/23 06:07 Course Vital Signs Vital signs: Vital Signs Blood Pressure 157/75 H 08/30/23 06:04 Pulse Rate 94 H 08/30/23 08:30 Respiratory Rate 13 08/30/23 08:30 Blood Pressure 121/84 08/30/23 08:30 Pulse Oximetry 98 08/30/23 08:30 Oxygen Delivery Method Room Air 08/30/23 06:07 Medical Decision Making MDM Narrative Medical decision making narrative: 2 sets of troponin are negative. Her chest pain has gone away. Cardiac workup is negative. Creatinine however is mildly elevated at 2.0. Last week she was put on spironolactone by her office clerk assistant. I have spoken to her PCP and we have agreed that the patient will be discharged home and he will see her in the office tomorrow. She will not take any of the diuretics until she sees him tomorrow. Findings are discussed thoroughly with the patient and her family. Differential Diagnosis Differential Diagnosis: The bony, ME, unstable angina Medical Records Medical records reviewed: Yes I reviewed the patient's medical records Lab Data Lab results reviewed: Yes I reviewed the patient's lab results Labs: Lab Results 08/30/23 08/30/23 Range/Units 06:10 08:17 WBC 7.9 (4.0-11.0) 10^3/uL RBC 4.04 L (4.20-5.40) 10^6/uL Hgb 13.2 (12.0-16.0) g/dL Hct 42.4 (36.0-48.0) % MCV 105.0 H (81.0-99.0) fL MCH 32.7 (26.7-34.0) pg MCHC 31.1 (29.9-35.2) g/dL RDW 14.6 (11.0-15.0) % Plt Count 166 (150-450) 10^3/uL MPV 10.9 (9.5-13.5) fL Neut % (Auto) 63.1 (43.0-75.0) % Lymph % (Auto) 24.1 (20.5-60.0) % [place] % (Auto) 9.7 (1.7-12.0) % Eos % (Auto) 1.6 (0.9-7.0) % Baso % (Auto) 1.0 (0.2-2.0) % Neut # (Auto) 5.0 (1.4-6.5) 10^3/uL Lymph # (Auto) 1.9 (1.2-3.8) 10^3/uL [place] # (Auto) 0.8 (0.3-0.8) 10^3/uL Eos # (Auto) 0.1 (0.0-0.7) 10^3/uL Baso # (Auto) 0.1 (0.0-0.1) 10^3/uL Abs Immat Gran (auto) 0.04 H (0.00-0.03) 10^3/uL Imm/Tot Granulo (auto) 0.5 (0.0-0.5) % PT 26.1 H (9.0-11.6) sec INR 2.72 Sodium 142 (136-145) mmol/L Potassium 4.0 (3.5-5.1) mmol/L Chloride 101 (98-107) mmol/L Carbon Dioxide 29.5 (21.0-32.0) mmol/L Anion Gap 15.5 BUN 54.0 H (7.0-18.0) mg/dL Creatinine 2.00 H (0.55-1.02) mg/dL Est GFR ( Amer) 28 L (>=60) Est GFR (Non-Af Amer) 23 L (>=60) BUN/Creatinine Ratio 27.0 Glucose 133 H (74-106) mg/dL Calcium 9.7 (8.5-10.1) mg/dL Total Bilirubin 0.9 (0.2-1.0) mg/dL AST 24 (15-37) U/L ALT 21 (14-59) U/L Alkaline Phosphatase 86 (46-116) U/L Troponin I High Sens 21.8 19.4 (4.0-51.3) pg/mL NT-Pro-B Natriuret Pep 3429.0 H* (<=1800.0) pg/mL Total Protein 7.3 (6.4-8.2) g/dL Albumin 3.6 (3.4-5.0) g/dL Globulin 3.7 g/dL Albumin/Globulin Ratio 1.0 Imaging Data Chest x-ray: Radiologist's impression: ITS Impressions Chest X-Ray 08/30/23 06:46 IMPRESSION: Cardiomegaly Clear lungs Electronically authenticated by: ILSA COYLE Date: 08/30/2023 07:07 ECG Data Attestation: I personally reviewed and interpreted this ECG as follows: (EKG on my interpretation shows atrial fibrillation with PVCs) Discharge Plan Discharge Stand Alone Forms: Portal Instructions Chief Complaint: Shortness of Breath/Dyspnea Clinical Impression: Chest pain Patient Disposition: Home, Self-Care Time of Disposition Decision: 09:17 Condition: Good Mode of Transportation: Private Vehicle Prescriptions / Home Meds: No Action lactulose 10 gram/15 mL solution 15 ml PO BID PRN (Reason: pain) tramadol 50 mg tablet 50 mg PO Q8H PRN (Reason: pain) amiodarone 200 mg tablet 100 mg PO Q24H clopidogrel 75 mg tablet 75 mg PO DAILY isosorbide mononitrate 60 mg tablet extended release 24 hr 60 mg PO DAILY aspirin [Adult Low Dose Aspirin] 81 mg tablet,delayed release (DR/EC) 81 mg PO .twice a week torsemide 5 mg tablet 10 mg PO DAILY warfarin 3 mg tablet 3 mg PO .three times a week Rx Instructions: Sunday, Sunday, Sunday [place]-3 350 mg-235 mg- 90 mg-597 mg capsule,delayed release(DR/EC) 1 cap PO DAILY lisinopril 10 mg tablet 10 mg PO DAILY cholecalciferol (vitamin D3) [Vitamin D3] 50 mcg (2,000 unit) capsule 50 mcg PO DAILY vitamin B complex [B Complex-Vitamin B12] Tablet 1 tab PO DAILY nitroglycerin 0.4 mg tablet, sublingual 0.4 mg sublingual Q5M PRN (Reason: chest pain) Caltrate 600 plus D 600 mg-20 mcg (800 unit) tablet,chewable 1 tab PO BID nortriptyline 25 mg capsule 25 mg PO DAILY furosemide 40 mg tablet 40 mg PO DAILY levothyroxine 75 mcg tablet spironolactone 25 mg tablet warfarin 6 mg tablet PO .four times a week Rx Instructions: Sunday, Sunday, , and Sunday torsemide 10 mg tablet Print Language: [place] Instructions: Chest Pain (ED) Additional Instructions: Do not take Lasix, torsemide, or spironolactone until you speak to Dr. Jiang tomorrow. Call today to make an appointment to see him tomorrow. Referrals: Del Jiang MD [Primary Care Provider] - 1 week
== END 2023-08-30 09:52 | disposition home or self-care (01) ==
PROVIDERS: Emergency Medicine; Emergency Provider Emergency Medicine; PCP Family Medicine
DX: R07.9 Chest pain, unspecified (principal); I25.10 Atherosclerotic heart disease of native coronary artery without angina pectoris; Z95.5 Presence of coronary angioplasty implant and graft; Z95.0 Presence of cardiac pacemaker; I48.91 Unspecified atrial fibrillation; Z79.01 Long term (current) use of anticoagulants; Z79.899 Other long term (current) drug therapy; Z91.81 History of falling; G51.0 Bell's palsy
CPT/HCPCS: 36415; 71045; 80053; 83880; 84484; 85025; 85610; 93005; 99284

== ENCOUNTER 2023-09-10 03:11 | Outpatient (RCR) | payer OTHER, SELFPAY | END 2023-10-05 10:20 | disposition home or self-care (01) | LOC: MM 03:11 | PROVIDERS: PCP Radiology Diagnostic Radiology; Visit Provider Internal Medicine | DX: Z51.81 Encounter for therapeutic drug level monitoring (principal); Z79.01 Long term (current) use of anticoagulants; I48.0 Paroxysmal atrial fibrillation | CPT/HCPCS: 85610; G0463 ==

== ENCOUNTER 2023-09-11 17:30 | Emergency (ER) | payer OTHER, SELFPAY ==
[2023-09-11 17:57] VITALS: BP 134/85; PULSE 97; TEMP 37.2; O2SAT 97; BMI 35.5
[2023-09-11 20:16] VITALS: BP 155/81; PULSE 98; O2SAT 98
--- NOTE | 2023-09-11 20:30 | ED.LOWEXI1 ---
HPI HPI - Extremity Injury (Lower) General Chief Complaint: Extremity Injury, Lower Stated Complaint: Lower extremity injury Time Seen by Provider: 09/11/23 19:34 Source: patient Mode of arrival: Wheelchair History of Present Illness HPI Narrative: 88-year-old female presented to the emergency department for an injury to her left lower leg. She had accidentally hit it on a piece of furniture about 2-3 o'clock this afternoon. Clear fluid has been coming out of it. She does not remember her last tetanus shot. No other injury was sustained. Related Data Home Medications ?Medication ?Instructions ?Recorded ?Confirmed amiodarone 200 mg tablet 100 mg PO Q24H 11/06/22 08/30/23 aspirin 81 mg tablet,delayed 81 mg PO .twice a week 11/06/22 08/30/23 release (Adult Low Dose Aspirin) calcium carbonate 600 mg-vitamin 1 tab PO BID 11/06/22 08/30/23 D3 20 mcg (800 unit) chewable tablet (Caltrate 600 plus D) cholecalciferol (vitamin D3) 50 50 mcg PO DAILY 11/06/22 08/30/23 mcg (2,000 unit) capsule (Vitamin D3) clopidogrel 75 mg tablet 75 mg PO DAILY 11/06/22 08/30/23 isosorbide mononitrate 60 mg 60 mg PO DAILY 11/06/22 08/30/23 tablet,extended release 24 hr lisinopril 10 mg tablet 10 mg PO DAILY 11/06/22 08/30/23 nitroglycerin 0.4 mg sublingual 0.4 mg sublingual Q5M PRN chest 11/06/22 08/30/23 tablet pain nortriptyline 25 mg capsule 25 mg PO DAILY 11/06/22 11/06/22 omega 3 350 mg-dha 235 mg-epa 90 1 cap PO DAILY 11/06/22 08/30/23 mg-fish oil 597 mg capsule,delay rel ([place]-3) torsemide 5 mg tablet 10 mg PO DAILY 11/06/22 11/06/22 vitamin B complex (B 1 tab PO DAILY 11/06/22 08/30/23 Complex-Vitamin B12 tablet) warfarin 3 mg tablet 3 mg PO .three times a week 11/06/22 08/30/23 lactulose 10 gram/15 mL oral 15 ml PO BID PRN pain 07/20/23 08/30/23 solution tramadol 50 mg tablet 50 mg PO Q8H PRN pain 07/20/23 08/30/23 furosemide 40 mg tablet 40 mg PO DAILY 08/30/23 08/30/23 levothyroxine 75 mcg tablet mcg 08/30/23 spironolactone 25 mg tablet mg 08/30/23 torsemide 10 mg tablet mg 08/30/23 warfarin 6 mg tablet mg PO .four times a week 08/30/23 Previous Rx's ?Medication ?Instructions ?Recorded cephalexin 500 mg capsule 500 mg PO TID 5 days #15 caps 09/11/23 Allergies Allergy/AdvReac Type Severity Reaction Status Date / Time ibuprofen Allergy Intermediate Hives Verified 07/20/23 08:46 Wnyontc-ODP-FrI Reductase AdvReac Mild myalgia Verified 07/20/23 08:46 Inhibitor betablockers AdvReac bradycardia Uncoded 07/20/23 08:46 Opioid HPI Opioid Management Most Recent Pain and Opioid Data: Last Pain Scale 6 08/30/23 06:30 Review of Systems ROS Narrative A ten point review of systems is negative except as noted above. 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) Angina pectoris ?I20.9 - Angina pectoris, unspecified (ICD-10) Obesity ?E66.9 - Obesity, unspecified (ICD-10) Cardiomyopathy ?I42.9 - Cardiomyopathy, unspecified (ICD-10) Mitral regurgitation ?I34.0 - Nonrheumatic mitral (valve) insufficiency (ICD-10) Hyperlipidemia ?E78.5 - Hyperlipidemia, unspecified (ICD-10) Hypertension ?I10 - Essential (primary) hypertension (ICD-10) Coronary artery disease ?I25.10 - Atherosclerotic heart disease of [place] coronary artery without angina pectoris (ICD-10) Surgical History (Updated 11/06/22 @ 13:07 by Jamie Locke RN) History of hip surgery ?Z98.890 - Other specified postprocedural states (ICD-10) Stented coronary artery ?Z95.5 - Presence of coronary angioplasty implant and graft (ICD-10) Exam Narrative Exam Narrative: Nurses note and vital signs reviewed and patient is not hypoxic. General: The patient appears well and in no apparent distress. Patient is resting comfortably on cart. Skin: Warm, dry, no pallor noted. There is no rash noted. Head: Normocephalic, atraumatic Eye: Normal conjunctiva, no drainage Ears, Nose, Mouth, and Throat: oral mucosa is moist. Nares patent. Cardiovascular: Not tachycardic Respiratory: Patient is in no distress, no accessory muscle use Back: non-tender GI: Soft and nontender Musculoskeletal: She has bilateral lower extremity edema. On the left lower leg anteriorly is a small puncture type wound. There is clear fluid draining from it. No other wounds are present. Neurological: Awake and alert Psychiatric: Cooperative Constitutional Vital Signs, click to edit/add: Last Vital Signs Temp 98.9 F 09/11/23 17:57 Pulse 98 H 09/11/23 20:16 Resp 18 09/11/23 20:16 BP 155/81 H 09/11/23 20:16 Pulse Ox 98 09/11/23 20:16 O2 Del Method Room Air 09/11/23 17:57 Course Vital Signs Vital signs: Vital Signs Temperature 98.9 F 09/11/23 17:57 Pulse Rate 97 H 09/11/23 17:57 Respiratory Rate 18 09/11/23 17:57 Blood Pressure 134/85 09/11/23 17:57 Pulse Oximetry 97 09/11/23 17:57 Oxygen Delivery Method Room Air 09/11/23 17:57 Temperature 98.9 F 09/11/23 17:57 Pulse Rate 98 H 09/11/23 20:16 Respiratory Rate 18 09/11/23 20:16 Blood Pressure 155/81 H 09/11/23 20:16 Pulse Oximetry 98 09/11/23 20:16 Oxygen Delivery Method Room Air 09/11/23 17:57 MDM - Extremity Injury (Lower) MDM Narrative Medical decision making narrative: Tetanus is updated and she is placed on prophylactic Keflex. Pressure dressing applied. There is no indication for sutures. Treatment diagnosis and follow-up were discussed with the patient and her family. Differential Diagnosis Differential diagnosis: Likely other (Laceration, puncture) Discharge Plan Discharge Stand Alone Forms: Portal Instructions Chief Complaint: Extremity Injury, Lower Clinical Impression: Laceration of left leg Patient Disposition: Home, Self-Care Time of Disposition Decision: 20:27 Condition: Good Mode of Transportation: Private Vehicle Prescriptions / Home Meds: New cephalexin 500 mg capsule 500 mg PO TID 5 Days Qty: 15 0RF No Action lactulose 10 gram/15 mL solution 15 ml PO BID PRN (Reason: pain) tramadol 50 mg tablet 50 mg PO Q8H PRN (Reason: pain) amiodarone 200 mg tablet 100 mg PO Q24H clopidogrel 75 mg tablet 75 mg PO DAILY isosorbide mononitrate 60 mg tablet extended release 24 hr 60 mg PO DAILY aspirin [Adult Low Dose Aspirin] 81 mg tablet,delayed release (DR/EC) 81 mg PO .twice a week torsemide 5 mg tablet 10 mg PO DAILY warfarin 3 mg tablet 3 mg PO .three times a week Rx Instructions: Sunday, Sunday, Sunday [place]-3 350 mg-235 mg- 90 mg-597 mg capsule,delayed release(DR/EC) 1 cap PO DAILY lisinopril 10 mg tablet 10 mg PO DAILY cholecalciferol (vitamin D3) [Vitamin D3] 50 mcg (2,000 unit) capsule 50 mcg PO DAILY vitamin B complex [B Complex-Vitamin B12] Tablet 1 tab PO DAILY nitroglycerin 0.4 mg tablet, sublingual 0.4 mg sublingual Q5M PRN (Reason: chest pain) Caltrate 600 plus D 600 mg-20 mcg (800 unit) tablet,chewable 1 tab PO BID nortriptyline 25 mg capsule 25 mg PO DAILY furosemide 40 mg tablet 40 mg PO DAILY levothyroxine 75 mcg tablet spironolactone 25 mg tablet warfarin 6 mg tablet PO .four times a week Rx Instructions: Sunday, Sunday, , and Sunday torsemide 10 mg tablet Print Language: [place] Instructions: Laceration Without Closure (ED) Referrals: Del Jiang MD [Primary Care Provider] - 1 week
[2023-09-11] MEDS: CEPHALEXIN 500 MG CAPSULE PO (20:45)
[2023-09-11] MEDS: ADACEL DIPH,PERTUSS(ACELL),TET VAC/PF 0.5 ML ADULT SYRINGE IM (20:46)
== END 2023-09-11 21:20 | disposition home or self-care (01) ==
PROVIDERS: Emergency Provider Emergency Medicine; PCP Family Medicine
DX: S81.812A Laceration without foreign body, left lower leg, initial encounter (principal); Z23 Encounter for immunization; W22.03XA Walked into furniture, initial encounter
CPT/HCPCS: 90471; 90715; 99284

== ENCOUNTER 2023-09-17 21:14 | Emergency (ER) | payer OTHER, SELFPAY ==
[2023-09-17 21:21] VITALS: BP 138/82; PULSE 56; TEMP 36.8; O2SAT 97; BMI 35.8
--- OUTSIDE RECORDS SUMMARY | 2023-09-17 21:28 | XMS_ITS | CCD ---
Author Organization [facility] Care Team Providers Care Manager Media Relations Name Role Phone JUSTIN BROWN Unavailable Unavailable JUSTIN BROWN Unavailable Unavailable Summer Tidwell Unavailable Unavailable Unavailable HARPREET Tidwell Summer Breonna Primary Care Provider DO Pramod Bess Emergency Provider DO Guillermo Sanders Emergency Provider [phone] MD Stephanie Locke Jr Emergency Provider Al MD Nguyễn Askew Admit Provider Al MD Nguyễn Askew Attending Provider MD Kale Ross Attending Provider DO Matt Servin Other Provider MD Akhil Olivarez Attending Provider MD Doug Montana Attending Provider DO Myron Villarreal Emergency Provider [phone] Los Chaudhary Primary Care Physician [phone] HARPREET Tidwell Summer Breonna Primary Care Provider [phone] MD Akhil Olivarez Attending Provider LYNN Zimmerman Attending Provider Los Chaudhary M Unavailable HARPREET Tidwell Summer Breonna Primary [...] REIS H Admitting Unavailable HOY ., DR MATHIS Admitting Unavailable HOY ., DR MATHIS Attending Unavailable HOY ., DR MATHIS Consulting Unavailable [facility] Primary Care Unavailable CALLY-JACOB, MICKEY Admitting Unavailable HOY ., DR MATHIS Primary Care Unavailable MARY, MICKEY Attending Unavailable CALLY-JAMES, MICKEY Consulting Unavailable HOY ., DR MATHIS Attending Unavailable HOY ., DR MATHIS Admitting Unavailable YAW, SUMMER Primary Care Unavailable YAW, SUMMER Admitting Unavailable [facility] Attending Unavailable YAW, SUMMER Consulting Unavailable [facility] Primary Care Unavailable FAWWAD, REIS H Attending Unavailable [facility] Primary Care Unavailable FAWWAD, REIS H Admitting Unavailable YAW, SUMMER Primary Care Unavailable FAWWAD, REIS H Attending Unavailable FAWWAD, REIS H Admitting Unavailable FAWWAD, REIS H Admitting Unavailable FAWWAD, REIS H Attending Unavailable [facility] Primary Care Unavailable FAWWAD, REIS H Attending Unavailable [facility] Primary Care Unavailable FAWWAD, REIS H Admitting Unavailable YAW, SUMMER Primary Care Unavailable FAWWAD, REIS H Attending Unavailable FAWWAD, REIS H Admitting Unavailable FAWWAD, REIS H Admitting Unavailable HOY ., DR MATHIS Primary Care Unavailable FAWWAD, REIS H Attending Unavailable YAW, SUMMER Primary Care Unavailable FAWWAD, REIS H Attending Unavailable FAWWAD, REIS H Admitting Unavailable HOY ., DR MATHIS Admitting Unavailable HOY ., DR MATHIS Attending Unavailable HOY ., DR MATHIS Consulting Unavailable YAW, SUMMER Primary Care Unavailable HOY ., DR MATHIS Admitting Unavailable YAW, SUMMER Primary Care Unavailable NEENA Garcia, DR MATHIS Attending Unavailable SHAIKH Omer WHITE Attending Unavailable YAW, SUMMER Primary Care Unavailable FAWSHAIKH PRASAD H Admitting Unavailable YAW, SUMMER Primary Care Unavailable YAW, SUMMER Admitting Unavailable YAW, SUMMER Attending Unavailable YAW, SUMMER Consulting Unavailable [id number], [id number] Attending Unavailable Dr. Los Chaudhary Primary Care Unavail able Yaw, SOLE CEMENTER-C Summer Breonna Primary Care Provider DO Pearl Michel Attending Provider MD Los Chaudhary Primary Care Provider [phone] DO Philip Thompson Emergency Provider [phone] MD Jamie Hathaway Admit Provider MD Jamie Hathaway Attending Provider DO Philip Thompson Emergency Provider MD Jamie Hathaway Admit Provider [phone] MD Danlio Drummond Attending Provider [phone] MD Akhil Olivarez Attending Provider Los Chaudhary MD Primary Care Provider [phone] Dr. Akhil Michel Attending Ruma Chaudhary, Dr. [...] McGuinn II, Dr. Akhil Higginbotham Attending Unavailable Hoy, Dr. Los Carr Primary Care Unavail able Neena, Dr. Los Carr Primary Care Unavail able Neena, Dr. Los Carr Primary Care Unavail able Anand, Dr. Akhil Boyer Attending Unava ilable Neena, Dr. Los Carr Primary Care Unavail able Neena, Dr. Lso Carr Primary Care Unavail able MD Los Chaudhary Primary Care Provider [phone] DO Philip Thompson Emergency Provider MD Jamie Hathaway Admit Provider [phone] MD Danilo Drummond Attending Provider MD Akhil Olivarez Attending Provider Los Chaudhary MD Primary Care Provider [phone] REFERRAL, SELF Admitting Unavailable REFERRAL, SELF Attending Unavailable REFERRAL, SELF Referring Unavailable Los Chaudhary Consulting Unavailable MD Los Chaudhary Consulting Unavailable PADMAJA SAWANT Referring Unavaila ble LIVIERADRIAN Suarez Primary Care Unavailable SHWETA SOL Attending Unavailable SHWETA SOL Admitting Unavailable LOS CHAUDHARY Primary Care Unavailable SHWETA SOL Attending Unavailable MD Los Chaudhary Primary Care Provider MD Ahkil Olivarez Attending Provider MD Los Chaudhary Primary Care Provider [phone] MD Akhil Olivarez Attending Provider [facility] E Emergency Provider Los Chaudhary MD Primary Care Provider [phone] SHWETA SOL Referring Unavailable HOY, LOS M [...] LEMOS Attending Unavailable FRANKLIN Ovalle Emergency Provider [phone] MD Los Chaudhary Primary Care Provider [phone] MD Akhil Olivarez Attending Provider Kwaku Santamaria Admitting Unavailable Kwaku Santamaria Attending Unavailable SUMANY, LOS Primary Care Unavailable MD Los Chaudhary Primary Care Provider [phone] MD Akhil Olivarez Attending Provider AKHIL OLIVAREZ Referring Unavailable HOY, LOS CHASE Primary Care Unavailable Hoy, Los M Primary Care Unavailable Pearl Michel Attending Unavailable Pearl Michel Admitting Unavailable Hoy, Los M Primary Care Unavailable Akhil Olivarez Attending Unavail able Akhil Olivarez Admitting Unavail able Hoy, Los M Primary Care Unavailable Akhil Olivarez Attending Unavail able Akhil Olivarez Admitting Unavail able Hoy, Los M Primary Care Unavailable Pearl Michel Attending Unavailable Pearl Michel Admitting Unavailable Hoy, Los M Primary Care Unavailable Bullimore, Daily E Attending Unavailable Bullimore, Daily E Admitting Unavailable Hoy, Los M Primary Care Unavailable Arthur Ovalle Attending Unavailable Arthur Ovalle Admitting Unavailable Hoy, Los M Primary Care Unavailable Akhil Olivarez Attending Unavail able Akhil Olivarez Admitting Unavail able Hoy, Los M Primary Care Unavailable Akhil Olivarez Attending Unavail able Akhil Olivarez Admitting Unavail able Hoy, Los M Primary Care Unavailable Akhil Olivarez Attending Unavail able Akhil Olivarez Admitting Unavail able SumanLos hankins Roger Primary Care Unavailable Akhil Olivarez Attending Unavail able Akhil Olivarez Admitting Unavail able Daniol Drummond Attending Unavailable Ashely Arguelles Consulting Unavailable Jamie Hathaway Admitting Unavailable Los Chaudhary Roger Primary Care Unavailable Pearl Michel Consulting Unavailable Bg Nation Consulting Unavailable Akhil Olivarez Consulting Unavail able Millie Drew Consulting Unavailable Lyle Lane Consulting Unavailab Mickey Rapp Consulting Unavailable Pretty Cheema Consulting Unavailable Joanne Barnes Consulting Unavailab Leslye Barron Consulting Unavailable Joanne Montes Consulting Unavailable Patricia Lawson Consulting Unavailable MICKEY JAMES Attending Unavailable LOS CHAUDHARY Primary Care Unavailable AKHIL OLIVAREZ Attending Unavailable MICKEY JAMES Referring Unavailable LOS CHADUHARY Primary Care Unavailable Allergies Allergy Classification Reported Allergen(s) Allergy Type Date of Onset Reaction(s) Facility NSAIDs (1 source) Ibuprofen Drug Allergy 3 [facility] Work Phone: (20 sources) ibuprofen; Translations: [ibuprofen] Drug Allergy 3 Unknown (qualifier value), Unknown, [facility] Repository (20 sources) Hmg-Coa Reductase Inhibitors (Statins); Translations: [Statins] Allergy to drug (finding) Myalgia, Other [facility] Repository (20 sources) Ibuprofen; Translations: [Motrin TABS] Drug Allergy [facility] 600 DO Work Phone: (20 sources) Beta-Adrenergic Germán; Translations: [Beta Adrenergic Blockers] Allergy to drug (finding) Bradycardia [facility] 250 DO Work Phone: (2 sources) HMG-CoA reductase inhibitor; Translations: [statins] Drug allergy Walking disability (finding) [facility] (3 sources) Ibuprofen; Translations: [Motrin] Drug Allergy 2 [facility] Repository (10 sources) HMG-CoA reductase inhibitor; Translations: [[id number] A REDUCTASE INHIBITORS] Drug Intolerance 3 Other: See Comments, Myalgia, Other [facility] (4 sources) beta-Blocking agent; Translations: [BETA-BLOCKERS (BETA-ADRENERGI C BLOCKING AGTS)] Drug Allergy 3 Other [facility] Medications Current Medications Medication Drug Class(es) [...] Twice daily July 31, 2023 12:00am Start: 06-27-2023 End: 06-26-2024 take 1 tablet by mouth twice daily amiodarone (Pacerone) 200 mg tablet Indications: Paroxysmal atrial fibrillation (Multi) Take 1 tablet (200 mg) by mouth 2 times a day. 180 tablet 1 06/27/2023 06/26/2024 Active Start: 11-23-2022 End: 07-31-2023 take 100 mg by mouth once daily Amiodarone Discontinue d 100 MG PO Daily November 24, 2022 10:51am July 31, 2023 [...] (20 sources) P2Y12 Platelet Inhibitor Start: 09-25-2022 End: 05-16-2024 Clopidogrel (Plavix) 75 mg tablet Active 75 [...] by mouth once daily fish oil concentrate ([place]asgow-3) 120-180 mg capsule Take 1 capsule (1 g) by mouth once daily. Active take 1 capsule by mouth once shelly ly Fish Oil 1000 MG Oral Capsule TAKE 1 CAPSULE Daily Quantity: 0 Refills: 0 Ordered: 05-Jul-2022 DO Active take 1 capsule by mouth twice da amber Fish Oil 1000 MG Oral Capsule Take 1 capsule twice daily Quantity: 0 Refills: 0 Ordered: 21-Sep-2021 DO Active oxyquinoline sulfate 0.43711 mg/mg / sodium dodecyl sulfate 0.0001 mg/mg vaginal gel (2 sources) Start: 02-20-2019 Trimo-Beal 0.025% vaginal gel with applicator See Instructions, 1 tube(s), Refill(s) 2, Use with cleaning of pessary, [id number] Start Date: 02/20/19 Status: Ordered [...] NATALIA TH ONCE DAILY DIRECTED. DOSE INCREASED lactulose 667 mg/ml oral solution (1 source) Osmotic Laxative Start: 07-28-2023 take 15 mL by mouth once daily lactulose 10 gram/15 mL solution Take 15 mL (10 g) by mouth once daily. 07/28/2023 Active lisinopril 10 mg oral tablet (20 sources) [...] 2:10pm Start: 10-29-2012 take 2 tablets by mo [facility] once daily lisinopril 5 mg tablet Take 10 mg by mouth once daily. 0 10/29/2012 Active Comment on above: Take 10 mg by mouth once daily. mineral oil 0.2 mg/mg / petrolatum 0.8 mg/mg ophthalmic ointment (12 sources) Start: 09-22-2022 White Petrolatum-Mineral Oil (Soothe Night Time Lubricant) 80-20 % Ointment Active 1 APPLIC EYE-LEFT Daily September 22, 2022 12:00am Multivitamin preparation (15 sources) Start: 01-10-2022 take 1 tablet by mouth once daily Multivitamin Active 1 TAB PO Daily January 09, 2022 11:00pm Start: 01-10-2022 take 1 tablet by natalia th once daily Multivitamin Active 1 TAB [...] 5 minutes as needed for chest pain. [place] 0-Bgd-Tcu-Fish Oil (Fish Oil) 1,000 mg (120 mg-180 mg) Capsule (20 sources) Start: 11-26-2019 take 1 capsule by mouth once daily [place] 6-Stu-Cca-Fish Oil (Fish Oil) 1,000 mg (120 mg-180 mg) Capsule Active 1 CAP PO Daily November 25, 2019 11:00pm Start: 11-26-2019 take 1 capsule by [facility] once daily [place] 4-Qto-Hld-Fish Oil (Fish Oil) 1,000 mg (120 mg-180 mg) Capsule Active 1 CAP PO Daily November 26, 2019 12:00am Start: 11-26-2019 take 1 capsule by [facility] twice daily [place] 6-Rne-Tqo-Fish Oil (Fish Oil) 1,000 mg (120 mg-180 mg) Capsule Active 1 CAP PO Twice daily November 25, 2019 11:00pm Start: 11-26-2019 take 1 capsule by [facility] twice daily [place] 4-Afp-Mne-Fish Oil (Fish Oil) 1,000 mg (120 mg-180 mg) Capsule Active 1 CAP PO Twice daily November 26, 2019 12:00am Selenium (20 sources) Start: 11-26-2019 take 100 ug by mouth once daily Selenium Active 100 MCG PO Daily November 25, 2019 11:00pm Start: 11-26-2019 take 100 ug by mouth once thomas y Selenium Active 100 MCG PO Daily November 26, 2019 12:00am Selenium (2 sources) Start: 10-30-2018 selenium microgram, Oral, Daily, Refills(s) 0 Start Date: 10/30/18 Status: Ordered spironolactone 25 mg oral tablet (1 source) Aldosterone Antagonist Start: 08-27-2023 take 1 tablet by mouth once daily spironolactone (Aldactone) 25 mg tablet Indications: Shortness of breath on exertion , Cardiomyopathy, unspecified type (Multi) Take 1 tablet (25 mg) by mouth once daily. 90 tablet 1 08/27/2023 Active torsemide 10 mg oral tablet (20 sources) Loop Diuretic Start: 07-19-2022 take 10 mg by mouth once daily Torsemide Active 10 MG PO Daily September 22, 2022 12:00am Start: 07-19-2022 take 1 tablet by natalia th twice daily torsemide (Demadex) 10 mg tablet Take 1 tablet (10 mg) by mouth 2 times a day. 07/19/2022 Active Start: 11-26-2019 End: 09-22-2022 take 5 mg by mouth once daily Torsemide Discontinued 5 MG PO Daily November 26, 2019 12:00am September 22, 2022 9:13am take 2 tablets by mo ut once daily in the morning Torsemide [...] by mouth see administration instructions. Per [facility] Active Comment on above: Take 2.5 mg [...] Amlodipine Discontinued 5 MG PO Daily October 25, 2021 12:00am September 22, 2022 9:06am Comment on above: Take 5 mg by mouth o nce daily. apple cider vinegar 500 mg oral tablet (20 sources) Start: 11-26-2019 End: 07-31-2023 take 500 mg by mouth once daily Apple Cider Vinegar Discontinued 500 MG PO Daily November 26, 2019 12:00am July 31, 2023 7:16pm Comment on above: Take 1 tablet by natalia once daily. ascorbic acid 1000 mg oral [...] 2019 4:18pm take 1 tablet by natalia once daily Ascorbic Acid 1,000 mg tablet Take 1 tablet by mouth once daily. 0 Active Comment on above: Take 1 tablet by natalia once daily. calcium carbonate 1500 mg oral [...] mg / cholecalciferol 200 unt oral tablet (20 sources) Vitamin D Start: End: 0 take 1 tablet by mouth twice daily Calcium Carbonate-Vitamin D3 (Oyster Shell Calcium-Vit D3) 500 mg(1,250mg) -200 unit Tablet Discontinued 1 TAB PO Twice daily 0 April 03, 2017 1:00am November 26, 2019 4:17pm Bafhtomef-Jmmwmuxq-Mdk-H yalur (Joint Health) 40-10-5-3.3 mg Tablet (12 sources) Start: 3 End: 4 take 1 tablet by mouth once daily Ttkebrvhm-Dtzcqeon-Ya r-Hyalur (Joint Health) 40-10-5-3.3 mg Tablet Discontinued 1 TAB PO Daily September 22, 2022 12:00am July 31, 2023 7:16pm Start: 09-22-2022 take 1 tablet by natalia th once daily Gwwgigxnn-Peujhfel-Yna-Hyalur (Joint Hea lth) 40-10-5-3.3 mg Tablet Active 1 TAB PO Daily September 21, 2022 11:00pm Start: 09-22-2022 take 1 tablet by nataila th once daily Kbgammhds-Ptyusyuj-Neg-Hyalur (Joint Hea lth) 40-10-5-3.3 mg Tablet Active 1 TAB PO [...] above: Take 1 tablet by natalia th twice daily. cephalexin 500 mg oral capsule (15 sources) Cephalosporin Antibacterial Start: 022 End: 023 take 500 mg by mouth twice daily Cephalexin Discontinued 500 MG PO Twice daily 20 January 10, 2022 12:00am September 22, 2022 9:08am [...] capsule (50 mcg) by mouth once daily. Active clindamycin 300 mg oral capsule (9 sources) Lincosamide Antibacterial Start: 11-23-2022 End: 07-31-2023 take 600 mg by mouth three times daily Clindamycin Hcl Discontinued 600 MG PO Three times daily 12 2 November 23, 2022 12:00am July 31, 2023 7:17pm cobamamide 0.1 mg / vitamin b12 5 mg sublingual tablet (11 sources) Vitamin B12 Start: 09-25-2022 End: 07-31-2023 Cyanocobalamin-Cob amamide (B12) 5,000-100 mcg Lozenge Discontinued 1 LOZENGE LOZENGE Daily September 25, 2022 12:00am July 31, 2023 7:17pm Start: 09-25-2022 Cyanocobalamin -Cobamamide (B12) 5,000-100 mcg Lozenge Active 1 LOZENGE SUBLINGUAL Daily September 25, 2022 12:00am colestipol hydrochloride 1000 mg oral tablet (9 sources) Bile Acid Sequestrant Start: 11-23-2022 End: 11-23-2022 take 1 g by mouth once daily Colestipol Discontinued 1 GM PO Daily November 23, 2022 12:00am November 23, 2022 5:42pm cyclobenzaprine hydrochloride 5 mg oral tablet (20 sources) Muscle Relaxant Start: 04-03-2017 End: 11-26-2019 [...] months. diphenhydrAMINE hydrochloride 25 mg oral capsule (20 sources) Histamine-1 Receptor Antagonist Start: 04-03-2017 End: [...] on above: Take 1 capsule by mo ut two times a day as needed for [...] heparin sodium, porcine 5000 unt/ml injectable solution (20 sources) Unfractionated Heparin, Anti-coagulant Start: 04-03-2017 End: 11-26-2019 inject 5000 [IU] by subcutaneous injection every twelve hours Heparin (Porcine) Discontinued 5000 UNIT SUBCUT Every 12 hours 0 April 03, 2017 1:00am November 26, 2019 4:11pm hydroCHLOROthiazide 12.5 mg oral tablet (20 sources) Thiazide Diuretic Start: 04-03-2017 End: 10-25-2021 take 12.5 mg by mouth once daily Hydrochlorothiazide Discontinued 12.5 MG PO Daily 0 April 03, 2017 1:00am October 25, 2021 11:43am levoFLOXacin 750 mg oral tablet (20 sources) Quinolone Antimicrobial Start: 03-18-2017 End: 03-25-2017 take 750 mg by mouth every twenty-four hours Levofloxacin Discontinued 750 MG PO Q24H 7 7 March 18, 2017 1:00am March 25, 2017 1:02am levothyroxine sodium 0.05 mg oral tablet (6 sources) l-Thyroxine Start: 01-01-2023 End: 09-10-2023 take 1 tablet by mouth once levothyroxine (SYNTHROID) 50 mcg tablet Take 1 tablet by mouth every afternoon. 0 01/01/2023 Active take 1 tablet by natalia th once daily in the morning levothyroxine (Synthroid, Levoxyl) 75 mc g tablet Take 1 tablet (75 mcg) by mouth early in the morning.. Take on an empty stomach at the same time each day, either 30 to 60 minutes prior to breakfast Active Comment on above: Take 1 tablet by natalia th every afternoon. linseed oil 1000 mg oral capsule (2 sources) take 1 capsule by mouth once daily Flaxseed Oil 1,000 mg cap Take 1 capsule by mouth once daily. 0 Active Comment on above: Take 1 capsule by mo [facility] once daily. meclizine hydrochloride 25 mg oral tablet (19 sources) Antiemetic Start: 2 End: 3 take 25 mg by mouth every eight [...] With Folic Acid (Thera) 400 mcg Tablet (20 sources) Start: 7 End: 2 take 1 tablet by mouth once daily [...] / nitrofurantoin, monohydrate 75 mg oral capsule (20 sources) Nitrofuran Antibacterial Start: 10-23-2021 End: 10-29-2021 take 2 capsules by mouth once daily at mealtime Nitrofurantoin Monohyd/M-Cryst (Macrobid) 100 mg Capsule Discontinued 100 MG PO Twice daily October 23, 2021 12:00am October 29, 2021 11:43am must administer with a meal/food - ON DAY 2 OF 5 nortriptyline 25 mg oral capsule (20 sources) [...] omeprazole 20 mg delayed release oral capsule (19 sources) Proton Pump Inhibitor Start: 10-29-2021 End: 01-10-2022 take 20 mg by mouth twice daily Omeprazole Discontinued 20 MG PO Twice daily October 29, 2021 12:00am January 10, 2022 5:51pm ondansetron 4 mg disintegrating oral tablet (20 sources) Serotonin-3 Receptor Antagonist Start: 10-29-2021 End: 09-22-2022 take 4 mg by mouth every six hours Ondansetron Discontinued 4 MG PO Q6H October 29, 2021 12:00am September 22, 2022 9:10am take 1 tablet by natalia th every eight hours as needed ondansetron (Zofran) 4 mg tablet Take 1 tablet (4 mg) by mouth every 8 hours if needed for nausea or vomiting. Active OTC NUTRITIONAL SUPPLEMENT (2 sources) take 1 tablet by mouth once daily OTC NUTRITIONAL SUPPLEMENT Take 1 tablet by mouth once daily. [email or web address] 0 Active Comment on above: Take 1 tablet by natalia th once daily. MePlease [facility] pantoprazole 20 mg delayed release oral tablet (9 sources) Proton Pump Inhibitor Start: End: take 1 tablet by mouth once daily Pantoprazole (Protonix) 20 mg tablet,delayed release (DR/EC) Discontinued 20 MG PO Daily November 24, 2022 12:00am July 31, 2023 7:18pm predniSONE 20 mg oral tablet (20 sources) Start: End: take 60 mg by mouth once daily at mealtime Prednisone Discontinued 60 MG PO Daily 27 10October 29, 2021 11:42am January 10, 2022 5:52pm administer with food or milk, complete course previously started sennosides, long-term 8.6 mg oral tablet (20 sources) Start: 017 End: take 2 tablets by mouth once daily Sennosides (Senna Lax) 8.6 mg Tablet Discontinued 2 TAB PO DAILY@12 0 April 03, 2017 1:00am November 26, 2019 4:11pm SITagliptin 100 mg oral tablet (9 sources) Dipeptidyl Peptidase 4 Inhibitor Start: End: take 1 tablet by mouth once daily Sitagliptin Phosphate (Januvia) 100 mg Tablet Discontinued 100 MG PO Daily November 23, 2022 12:00am November 23, 2022 5:42pm traMADol hydrochloride 50 mg oral tablet (1 source) Opioid Agonist Start: take 1 tablet by mouth four times daily as needed traMADol (ULTRAM) 50 mg tablet take 1 tablet by mouth four times a day as needed 0 07/18/2023 Active Comment on above: take 1 tablet by natalia th four times a day as needed triamcinolone acetonide 1 mg/ml topical cream (6 sources) Corticosteroid Start: 023 Triamcinolone Acetonide 0.1 % External Cream APPLY A THIN LAYER TO AFFECTED AREA(S) TWICE DAILY. Quantity: 1 Refills: 0 Ordered: 29-Nov-2022 Akhil Olivarez MD Start : 29-Nov-2022 Active End: 09-10-2023 triamcinolone (Kenalog) 0.1 % cream Apply 1 Application topically 2 times a day. 09/10/2023 Discontinued (Therapy completed) valACYclovir 1000 mg oral tablet (20 sources) [...] ordered vitamin b12 0.1 mg oral tablet (6 sources) Vitamin B12 Start: 10-30-2018 cyanocobalamin (VITAMIN B-12) 100 mcg tab Take 1,000 mcg by mouth once daily. 0 10/30/2018 Active Start: 10-30-2018 Vitamin B12 Re fills(s) 0 Start Date: 10/30/18 Status: Ordered take 1 tablet by natalia once daily cyanocobalamin (Vitamin B-12) 100 mcg tablet Take 1 tablet (100 mcg) by mouth once daily. Active Comment on above: Take 1,000 mcg by mo [facility] once daily. Vitamin B12 TABS (20 [...] [Dizziness and giddiness] 10-28-2021 Episodic Conduction disorders (13 sources) Cardiac pacemaker in situ; Translations: [Cardiac pacemaker in situ] Onset: 3 02-26-2023 Chronic Congestive heart failure; nonhypertensive (20 sources) Heart failure with normal ejection fraction; Translations: [Unspecified diastolic (congestive) heart failure] Onset: 3 10-28-2021 Chronic Coronary atherosclerosis and other heart disease (20 sources) Coronary arteriosclerosis; Translations: [Coronary atherosclerosis of unspecified type of vessel, kletsel dehe wintun or graft] Onset: 3 10-28-2021 Chronic Deficiency and other anemia (20 sources) Anemia; Translations: [Anemia, unspecified] 03-19-2017 Episodic Disorders of lipid metabolism (20 sources) Hyperlipidemia; Translations: [Other and unspecified hyperlipidemia] Onset: 3 01-23-2023 Chronic E Codes: Fall (20 sources) Fall; Translations: [Unspecified fall, initial encounter] 03-19-2017 Episodic Essential hypertension (20 sources) Essential hypertension; Translations: [Unspecified essential hypertension] Onset: 3 10-21-2021 Chronic Fracture of neck of femur (hip) (20 sources) Closed intertrochanteric fracture; Translations: [Displaced intertrochanteric [...] sources) Long-term current use of anticoagulant; Translations: [long term care 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) use of anticoagulants] Onset: 3 10-28-2021 Episodic Other aftercare (5 sources) Encounter for therapeutic drug level monitoring; Translations: [ENC THERAPEUTC DRUG LEVL MONITORING] Onset: 3 Episodic Other aftercare (4 sources) Taking high risk medication; Translations: [Other usp (current) drug therapy] Onset: 3 02-26-2023 Episodic Other circulatory disease (20 sources) H/O: atrial fibrillation; Translations: [Personal history of other diseases of the circulatory system] 10-28-2021 Episodic Other circulatory disease (20 sources) Low blood pressure; Translations: [Hypotension, unspecified] 03-16-2017 Episodic Other circulatory disease (6 sources) Personal history of other diseases of the circulatory system; Translations: [Personal history of other diseases of circulatory system] 10-28-2021 Episodic Other connective tissue disease (20 sources) Foot pain; Translations: [Pain in unspecified foot] 03-23-2017 Episodic Other connective tissue disease (20 sources) Pain in left arm; Translations: [Pain in left arm] 11-28-2019 Episodic Other diseases of veins and lymphatics (16 sources) Venous insufficiency of leg; Translations: [Venous (peripheral) insufficiency, unspecified] Onset: 3 01-23-2023 Episodic Other ear and sense organ disorders (4 sources) Otorrhagia of left ear; Translations: [Otorrhagia, left ear] 07-13-2023 Episodic Other eye disorders (15 sources) Chemosis of conjunctiva; Translations: [Conjunctival edema, unspecified eye] 01-10-2022 Episodic Other injuries and conditions due to external causes (4 sources) Foreign body in left ear, initial encounter; Translations: [Foreign body in ear] 07-12-2023 Episodic Other lower respiratory disease (19 sources) Dyspnea on exertion; Translations: [Shortness of breath] Onset: 3 01-23-2023 Episodic Other lower respiratory disease (1 source) Shortness of breath; Translations: [Shortness of breath] Onset: 4 Episodic Other nervous system disorders (20 sources) Alvarado's palsy; 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] Onset: 3 10-25-2021 Episodic Other nervous system disorders (20 sources) Abnormal gait; Translations: [Unspecified abnormalities of gait and mobility] 03-19-2017 Episodic Other nervous system disorders (1 source) Other acute postprocedural pain; Translations: [Postoperative pain] Onset: 4 Episodic Other nutritional; endocrine; and metabolic disorders (20 sources) Obesity; Translations: [Obesity, unspecified] Chronic Other nutritional; endocrine; and metabolic disorders (5 sources) Body mass index 30+ - obesity; Translations: [Body mass index (BMI) 34.0-34.9, adult] Onset: 3 02-26-2023 Chronic Other nutritional; endocrine; and metabolic disorders (2 sources) Obese class I; Translations: [Obesity, unspecified] Onset: 4 04-24-2023 Chronic Other nutritional; endocrine; and metabolic disorders (2 sources) Body mass index (BMI) 37.0-37.9, adult; Translations: [Body mass index (BMI) 37.0-37.9, adult] Onset: 4 Chronic Other nutritional; endocrine; and metabolic disorders [...] Onset: 3 03-29-2023 Chronic Residual codes; unclassified (20 sources) Postprocedural state finding; Translations: [Other specified postprocedural states] 03-17-2017 Episodic Residual codes; unclassified (20 sources) Patient encounter status; Translations: [Encounter for prophylactic measures, unspecified] 03-19-2017 Episodic Residual codes; unclassified (2 sources) Postoperative state; Translations: [Other specified postprocedural states] 05-21-2023 Episodic Superficial injury; contusion (1 source) Abrasion of left ear, initial encounter; Translations: [Abrasion of left ear, initial encounter] Onset: 4 Episodic Thyroid disorders (5 sources) Hypothyroidism; Translations: [Unspecified acquired hypothyroidism] Onset: [...] site not specified] 03-31-2017 Episodic Viral infection (20 sources) Viral disease; Translations: [Viral infection, unspecified] [...] Translations: [Percutaneous transluminal coronary angioplasty status] Onset: 09-25-2022 11-24-2022 Episodic Fluid and electrolyte disorders (20 sources) Dehydration; Translations: [Dehydration] Onset: 11-19-2022 10-28-2021 Episodic Nonspecific chest pain (20 sources) Chest pain; Translations: [Chest pain, unspecified] Onset: 11-19-2022 11-17-2022 Episodic Other aftercare (9 sources) long 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 care 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) use of anticoagulants; Translations: [Long-term (current) use of anticoagulants] Onset: 09-06-2022 10-28-2021 Episodic Other aftercare (4 sources) Other usp (current) drug therapy; Translations: [Other usp (current) drug therapy] Onset: 01-23-2023 Episodic Other [...] SINUSES] Onset: 10-21-2021 Episodic Residual codes; unclassified (20 sources) Other specified health status; Translations: [Statin intolerance] Onset: 01-23-2023 02-26-2023 Episodic Syncope (20 sources) Near syncope; Translations: [Syncope and collapse] Onset: 01-23-2023 01-23-2023 Episodic Unclassified (20 sources) Never smoked tobacco; Translations: [Never a smoker] Unclassified (1 source) CONTACT W/AND (SUSP) EXPOS COVID-19; Translations: [CONTACT W/AND (SUSP) EXPOS COVID-19] Onset: 10-20-2021 Unclassified (2 sources) Onset: 02-26-2023 02-26-2023 Results Test Name Value Interpretation Reference Range Facility Amiodarone (Cordarone), Marku mon 09-10-2023 Amiodarone, Serum 1551 ng/mL Normal 1701-7380 [facility] Comment on above: Performed By: #### A MIODARONE ####[facility] , Noramiodarone, Serum 1084 ng/mL Normal . [facility] Comment on above: Result Comment: Note : To convert from ng/ml to ug/ml, divide the result by 1000. Reference range (amiodarone): 1.00-2.50 ug/mL. This test was developed and its performance characteristics determined by [facility]. It has not been cleared or approved by the Food and Drug Administration. Performed at: [facility] [address] [id number] [employer] Cutter: Denise Rodas [facility], Phone: [phone] PERFORMED BY: [place] [address] PATHOLOGIST PACU NURSE GIULIA VALERIO M.D. Performed By: #### A MIODARONE ####[facility] , ECG 12 Leadon 09-10-2023 Atrial fibrillation with occasional apparent conduction Rightward axis low voltage QRS Poor anterior R wave progression QTc 512 ms [facility] Work Phone: XR Chest 2 Viewson 4 These images are not reportable by radiology and will not be interpreted by Radiologists. IMAGING Coding Summaryon 08-24-2023 Coding Summary HTMLBase 64 IpwzlkdlUJb3tSt+PGhlYWQ+PE [id number] YrjnRFZVSPoOBxSvqaRrMP8lvO NjZXJu IC8+OQ4oUOZqHxfxsDFgk2F2hV D3D89bdc0iIClevQF4PSYiBfBh pkxlt8kbuEq4UFetUlyhFmJc ZLXvyK80NKL6iG46Dj84lQSewI Adp7nwhVz0WbKeEDOmFMY6hMct YPiwe0FpCRThO78bsUOtl0L8 LPKigHdgoUXsFySfgML9dS6jVB tfxuugl5ysqshdBng1kr41hWIa w6X2oGH9I5PrhnI3WBQpmUOf KovtaITAtF1qfbmrg5xylizrWq AtEQAyOZi0FEv8QNQshLilGaLp QM69QWP7SUFribRvD3KnPZDk vSuuCbU5g0O0Ro2RA4RUPzkeJ6 VNTUFSWTwvdGQ+CD19yh84M5Kd MoxkYvd2CWUtOCM8jID5kK5h HNWwFIvqr5B5oTS9L8ByvdQcdm 3if1srBCKvZCilT83sbSDgl3J8 PIXndJK7PQIqaHujQgUygC93 Oyc+PTRshWmlr8ChJwymv0vvr1 qehSy2JiewCXUufhFxcBbpAOI4 e6QuPc1gFSAhvVS5kGQ6tV5y FiUyZlO2TAlaG684IoHwgWKzOm vuI17jU1OqqUB+PWUmPux3RCUi oUclIF5oM9SyOXVkjholnVGh uYfxVK0nFNWeybsoBKTuaL8vZN GwF5o7LeZbYhC9TRpkS5HvMTUb ihsxNn59tP4aErDfSiR2EGdt F2EzkiC3RGHslKMbHPtnSRX7R4 0es1K6YUSwSAHwWJK6oZX6bO9q bGlnbjogbGVmdDsgdmVydGlj NFxpALsgX476PCZlmEeaQlHjJH luZyBEYXRlOiAgMDUvMTcvMjAy NDwvdGQ+ZSOqCOD0qSdrQNHj nZVhRLcbBv5ebZvckSjrZO9qIU RxcittHCDohO7uSCPkwORcmNee TM2aMKOirvyev208UfXpXUI4 HTZjsJOnS4YpcR0qQfGjFNCqTQ AfR5IqxMLaCOnhP593MEraSsF7 MXUenrQtN6XdHTZxaQyzCmT0 q5C3Zj6Ew3SkelmdZ6YckCJgIp SpPholQDq3W8UqOfsmzJW+PC90 PATzNY75QJt4EGK1eScdHJtd KANnH9JcrA4zBgAoPOQoXIUaVa c+PHRhYmxlIHdpZHRoPScxMDAl ZtWnnIteUI6sHm0lIWQwIYMr uSrvpQXzTxGwd8zfULDaGRkoLC 3toVsoE8AgtWY7RGCav6o3Fe25 A07vA0ZumAS+VZKmyVN9rBR7 cR9uBkHxLlN4EDvmC879VlEjiF TeBeiuu2vyx7svyXq1MhI3BEBy aaUwtDrnMAY7d3MaFa76Q54s IHdpZHRoPSIxNSUiIHZhbGlnbj 3pdS5zRq2+VHVpoVA4sCC3eL4e QcVzHnY5HYjrU335WfUbpJKl Bipti9lda0jyqMh8BxKuDAUeep JkuKssVGL5h7UiFk18I6MawCqr c8TzDzi1ov77nAGho0T3pCC4 E1SgCMLxmpasmMZlgBmaBR4cRI YjhwmvKXIqqE6zZLGvP9j2NpJs BmW3BStqX8HntgJ4DDFpwMNv FRTfcKMHyU5mdiroi4injjloUb WgWMAaHGy9EDz1WRIsxJprGiLs LMF6UpV3BKW1gJZjbI0zbAjt qmivhL0fRqz+SSM8iSEqrUSVOX 1lOjwvdGQ+XNQnJLM7ePggMLnb SBZmaT1jJRTwE7r8GiVnOdX8 WVzaC0NoqxO0VOKkhAKlWYRvmV EXvM0svhrgl5zrmelpHcZzYDVe NGj6ECr9WXGxwVwaFzLvXNU9 UaN1QWZ5lUJzpA9raPjnnpjluD 9wOyc+EwydoRoiRDW5VPy9I1Iy Vnv2MGJdgIhyVX8grANyTRfd Bv3cjRqruZluDD1hVTRaahzuh7 21LeKda8snPUAouWSzPFlyJGN9 B96of5F5VECkUDHgIQK1cAF1 yJ2ojBvtkzaysYLlxLzxjhNwfK kuGYrqIXzvD403NUKrlVtaJyWp BQk0D3VaVxg6IHVysZhiAH0m nYJrIOutZb1blPoutQxdDL0qLY Gddhemm626YhNxv3xsODSaxQIp UEjlCUW4R07ht7N4ZZJkLTCl IVB4nBD8pJ8sjPcduunejRAzaP ywiiVwvMjtCGehTOvaL726IJWi yDppEmDgjId4V5UhHzr1QWUi aBfxJK6xwHMwIUjhWp7hxYghnH urBY6nTWQrcfikz699AsCqa4fl QAYfcFIvTJwfYZM1U43gb2C9 WQXmYCDpXHK1lBI6eX9wtXmeph ogbGVmdDsgdmVydGljYWwtYWxp C699KMQjeFwkJuQcwQsadtPw ATnsDDm3G4XhJuzykES+PC90YW HuQU34ySIrtMJdz9zjxUe8MaPc QBZmZLJ1cWhyGOsyv6MqOLHr J63juVGzo8R0RUGtbJpksXNtRv IthZL6nJ6hTCmwhnhus3vnrdgw Bomnd8mndn39wW53G28vOSif TPNxUJQwSBRcPBValEldbr9pjJ 9wIi8+YBZbrTX8iTY9aK5qIHWw SiT8HVynD997UkEorOUzAvog z5jae1bslQq2VwU5VTPvmsVhkA zhHTJ9j0GyOc79S16lQBhvXVCc JZSgYGHmWKIgtOvwxf1syI2b Ii8+VZAgzUL4xES0kY5fDfQcZa D9EAsmW255ItJzpREvQjhbV17i A7AapAN+LSGnHxn6JICciQjp GP6tpLNqKRmvAp6qSTH0GzUuQm UgOUkpH4PeYDLfyrnexsxjmEE2 YBIfKZZvuV56Gt6wwFwePXLk oEZMlO3aenkuq9bklzkePtAgOL NbKMm4GYp1GUFovKkxVeNqQIY8 ZsE6KGT5aUVvsS2opWstaqvg jC7tF7QwTTMyravyQk71tV2zQq KoHsY3HKhwGco+CMtRTSWzFH4G IerUFK1HPTt3D0GdKlu3FGKw xBtyZU0joWXtOLtcAt6dhPfetR atNI2wBHDfntpmRPHutK8mOGXm rRTdkXueRM6dBMSyhkhsb393 OeFhNCA2MTYpzUIjE3DpgU2fVp NcQJPgXKLyO5PfqYNrTBrmP938 VEycTuM0QOKhzoWjT0ZvZYSu qUutOnQ5a1C8Ao9qRp9tJy2oOV N6YM63YU96nTTmh9J0sMM4G4Di ULDxfpemvyvqkFB9WFZiALQv uB57pWMgOMprSk9eg8K4s120KJ LvFQRgbR20Lr8boZhwOMCptGVQ hB1iqedlh8yygzxcDoAyTEAz XCb3BWi2SUYemNtfAcKiBDK5Dv D0VWB1tZNfyE7vfPjqbsyalW2w Oyc+EGlwVDFubuH8T0JgBfw8 VVUwtEleHE9ldUVsRAjhNq1uxL qboRqzPA3xJNRjtghoXGAqpW0j WCHemRGooPpxBB4pDBIdprwz m647PuNpBGD6MVUmzVXzG7WzhY 1gTaIeTDCuTUItC7VgdCCwQAts G632DGkaCaZ7WFGnqwSjI9Wn YHOuxEutPgC3f9J2Pl2TGO8JJU D2C1AyIaf1OYGbeWrmZJ7ibBDn OQtjXc2udSsjlCiuFD8oNJUy fbffUMCqpR3nPFBhtZGxsLjtNA 0kYSXukkbhl539HyObAFV3XVKs cUOwL9MftP7xPrEbNDSwXZOg P5CbvEQmVHskE656HEhjSmU5AJ GrdoEpP4AsXYKtrPnrAkO1m3Y5 If3CxFLeD7EbS4z6S7FrCtuo dHI+NZ72HFJmUS11xKVklODbw1 dkiOc3DqNlKKVjGBT0jRbuMSpt b1JpVQLxQ28rbRIdi7P7HNRg sVgqiIDgBdFjrLH7pL4jYWfqom phb8cpzojaWwfth9egun15fX41 B36aBOzxSSRnYIDmCIWkPOVc tRxngt7kfL7wXo1+XRZhkJI7dJ W1xX7eUfRkTbD7HSysM506LhWt rMBhAhruj8eul2tusPq2CbCz NCGghsUgcGaaOIQ0x8NlPy29S0 9sIHdpZHRoPSIyMCUiIHZhbGln sr6qeT9eNr9+AP6vq4wcip20 wI80qAJ+ENAjXNY1yOjyPYvoPI PbmB7tTDkqDqZ0NUUuUhVeiT52 uYNaHOzeGt6efPfodLllZL5j IYQdpakni777BaPea8dkJLYcgO OnHObiLJY1B87uy5W1KGFbGDZe KCJ5lZW9pR1ngDbpcivrvQBa jXuajvOyvHyrANaiKPszY937WJ AbpKkiDkKfbWIlX0smhdJUBL5c OjwvdGQ+VHQpAMW4xObeAPhi FJCdkX9tTDRzA0o2FoAwRiM9KS nmV3RxvcC0VIZmdLTmJUHcwMMB rH8pszetr2egymnfZcWxDWQv QXz2HFs5BRMylNqzOzBaYAO1Pl W9OYH9jQQvxY6okCkmubxsgI5g Oyc+RklOOjwvdGQ+PHRkIHN0 xWzuSAqyXRGjnZ0aKQBbP4w9Zh OcOcQ4QPmoW9HjrqV5LRJyzJXl DWEnmYYXcQ5swqkae7xzcait CzKtJHBwIOl5RAa7UOLryQqyIp IfFFD1ZyE9HJD0pUBaeZ9iwApk crvyzI9wLne+TVJOOjwvdGQ+ KZXgTEF3xTpiPBtkOBBmfP2fJK SsZ4u6VlHfWdF0RKxvK7UfilD2 AIOqaTMhJVEcfFOPsS8doygs p2uvdagsXmAbQGKkKDv1SYc9BJ LciJarMzGfXJH9MkZ2WXH5hODt pV6qjDsecytfcS0nDkv+UGF5 LBU6FT03TX63O3SwCckotYUohE U+PHRhYmxlIHdpZHRoPScxMDAl TfQaiVywDV7fLq6aCVGkSBNk bGx (more content not included)... Normal [facility] .Auto Diff 08-18-2023 Auto [place] % 9 % Normal 04-20 [facility] Comment on above: Performed By: #### 1 [id number], [id number], [id number], [id number], 4951054, 90946645 #### [facility] (DEFAULT) [address] [place] [address] 59989 Baso Abs# 0.1 x10 Normal 0.0-0.2 [facility] Comment on above: Performed By: #### 1 [id number], 6051127, [id number], , 7457806, 84396365 #### [facility] (DEFAULT) [address] [place] [address] 45797 Basophils/100 WBC (Bld) 1.2 % Normal 0.2-2.0 [facility] Comment on above: Performed By: #### 1 [id number], 6238957, , [id number], 8667825, 53701533 #### [facility] (DEFAULT) [address] [place] [address] 28745 Eos Abs# 0.1 x10 Normal 0.0-0.4 [facility] Comment on above: Performed By: #### 1 [id number], 5380480, 9577280339, 7240614985, 8180752, 05501839 #### [facility] (DEFAULT) [address] [place] [address] 25269 Eosinophils/100 WBC (Bld) 1.1 % Normal 0.9-4.0 [facility] Comment on above: Performed By: #### 1 [id number], 7597587, [id number], , 7582796, 94316125 #### [facility] (DEFAULT) [address] [place] [address] 78769 Lymph Abs# 1.0 x10 Low 1.3-2.9 [facility] Comment on above: Performed By: #### 1 [id number], 9806518, , 1253278094, 5188114, 42745606 #### [facility] (DEFAULT) [address] [place] [address] 13254 Lymphocytes/100 WBC (Bld) 15 % Normal 14-48 [facility] Comment on above: Performed By: #### 1 [id number], 2357450, 4586764640, 1675062398, 1218203, 16264481 #### [facility] (DEFAULT) [address] [place] [address] Elmore Abs# 0.6 x10 Normal 0.0-0.8 [facility] Comment on above: Performed By: #### 1 [id number], 7932314, 6296629151, 7990465950, 2971883, 06834681 #### [facility] (DEFAULT) [address] [place] [address] Neut Abs# 5.1 x10 Normal 1.5-9.2 [facility] Comment on above: Performed By: #### 1 [id number], 8401698, 7791119192, 6516811711, 5566794, 14891363 #### [facility] (DEFAULT) [address] [place] [address] Neutrophils/100 WBC (Bld) 74 % Normal 44-88 [facility] Comment on above: Performed By: #### 1 [id number], 1037754, 5776137749, 3788003994, 8656911, 51621800 #### [facility] (DEFAULT) [address] [place] [address] CBC w/ Auto Diffon Erythrocyte distribution width (RBC) [Ratio] 15.9 % High 11.5-15.0 [facility] Comment on above: Performed By: #### 1 [id number], 5643236, 0882541560, 9717186453, 2818916, 55042354 #### [facility] (DEFAULT) [address] [place] [address] Hematocrit (Bld) [Volume fraction] 38.4 % Normal 33.7-40.4 [facility] Comment on above: Performed By: #### 1 [id number], 9369349, 9502523623, 5179536050, 0139021, 43599071 #### [facility] (DEFAULT) [address] [place] [address] Hemoglobin (Bld) [Mass/Vol] 12.5 g/dL Normal 11.3-15.9 [facility] Comment on above: Performed By: #### 1 [id number], 2761880, 9940884487, 6717133031, 4601014, 05372395 #### [facility] (DEFAULT) [address] [place] [address] Man Diff? Auto Invalid Interpretation Code [facility] Comment on above: Performed By: #### 1 [id number], 5853641, 5641331812, 8321254901, 5739251, 22099274 #### [facility] (DEFAULT) [address] [place] [address] 42973 MCH (RBC) [Entitic mass] 33 pg Normal 24-34 [facility] Comment on above: Performed By: #### 1 [id number], 8001520, 7755996887, 8017109150, 7434585, 79566723 #### [facility] (DEFAULT) [address] [place] [address] 98873 MCHC (RBC) [Mass/Vol] 33 g/dL Normal 26-37 [facility] Comment on above: Performed By: #### 1 [id number], 0542156, 6348750851, 8818629104, 9593945, 20303058 #### [facility] (DEFAULT) [address] [place] [address] 50426 MCV (RBC) [Entitic vol] 102 fL High 81-100 [facility] Comment on above: Performed By: #### 1 [id number], 3177451, 5409480555, 8654296294, 8959892, 23047484 #### [facility] (DEFAULT) [address] [place] [address] 60131 Platelet 165 x10 Normal 138-427 [facility] Comment on above: Performed By: #### 1 [id number], 7823037, 9627774045, 1005124030, 8659810, 46551860 #### [facility] (DEFAULT) [address] [place] [address] 66485 Platelet mean volume (Bld) [Entitic vol] 8.6 fL Normal 6.3-10.2 [facility] Comment on above: Performed By: #### 1 [id number], 0691628, 6373455711, 0317602786, 4157415, 94180044 #### [facility] (DEFAULT) [address] [place] [address] RBC 3.76 x10 Normal 3.70-5.30 [facility] Comment on above: Performed By: #### 1 [id number], 1707991, 3824334072, 1729462535, 9433311, 78791910 #### [facility] (DEFAULT) [address] [place] [address] WBC 6.8 x10 Normal 3.5-10.5 [facility] Comment on above: Performed By: #### 1 [id number], 7046787, 7294123035, 3312586480, 9965282, 27144222 #### [facility] (DEFAULT) [address] [place] [address] CMP Standardon 08-18-2023 eGFR Non AA 28 mL/min/1.73m2 Invalid Interpretation Code [facility] Comment on above: Performed By: #### 1 [id number], 0459145, 7259783802, 2630003448, 0951619, 64235161 #### [facility] (DEFAULT) [address] [place] [address] eGFR AA 34 mL/min/1.73m2 Invalid Interpretation Code [facility] Comment on above: Performed By: #### 1 [id number], 1968076, 4823397944, 1016538697, 8342397, 35329121 #### [facility] (DEFAULT) [address] [place] [address] Albumin [Mass/Vol] 3.7 g/dL Normal 3.5-5.0 [facility] Comment on above: Performed By: #### 1 [id number], 5959699, 5832796989, 4905991238, 2079363, 90637421 #### [facility] (DEFAULT) [address] [place] [address] Albumin/Globulin [Mass ratio] 1.1 {ratio} Low 1.4-2.6 [facility] Comment on above: Performed By: #### 1 [id number], 7847937, 4118907872, 6972860195, 2554212, 21010838 #### [facility] (DEFAULT) [address] [place] [address] 07562 Alk Phos 66 IU/L Normal 32-91 [facility] Comment on above: Performed By: #### 1 [id number], 1105568, 8870948787, 6364384471, 5173994, 10688643 #### [facility] (DEFAULT) [address] [place] [address] 53491 ALT [Catalytic activity/Vol] 14.0 U/L Normal 14.0-54.0 [facility] Comment on above: Performed By: #### 1 [id number], 1600730, 2644604618, 2515313980, 7620289, 55665725 #### [facility] (DEFAULT) [address] [place] [address] 39606 Anion gap [Moles/Vol] 13.1 mmol/L Normal 5.0-19.0 [facility] Comment on above: Performed By: #### 1 [id number], 5876288, 7602292868, 0249301110, 3927989, 18291690 #### [facility] (DEFAULT) [address] [place] [address] 27857 AST [Catalytic activity/Vol] 21 U/L Normal 15-41 [facility] Comment on above: Performed By: #### 1 [id number], 4098285, 4633725960, 4959609771, 3693052, 52381016 #### [facility] (DEFAULT) [address] [place] [address] 00505 Bili Total 0.9 mg/dL Normal 0.3-1.2 [facility] Comment on above: Performed By: #### 1 [id number], 7907716, 8586512703, 3094930512, 0634589, 89167426 #### [facility] (DEFAULT) [address] [place] [address] 94561 Calcium [Mass/Vol] 8.8 mg/dL Low 8.9-10.3 [facility] Comment on above: Performed By: #### 1 [id number], 3044939, , , 3088575, 82728544 #### [facility] (DEFAULT) [address] [place] [address] 06068 Chloride [Moles/Vol] 103 mmol/L Normal 101-111 [facility] Comment on above: Performed By: #### 1 [id number], 9395338, 0964159732, 5815068903, 0601657, 96800306 #### [facility] (DEFAULT) [address] [place] [address] 08962 CO2 [Moles/Vol] 27 mmol/L Normal 21-32 [facility] Comment on above: Performed By: #### 1 [id number], [id number], [id number], [id number], 0865695, [id number] #### [facility] (DEFAULT) [address] [place] [address] 42864 Creatinine [Mass/Vol] 1.70 mg/dL High 0.60-1.30 [facility] Comment on above: Performed By: #### 1 [id number], [id number], [id number], [id number], 0706773, 99740916 #### [facility] (DEFAULT) [address] [place] [address] 39727 Globulin (S) [Mass/Vol] 3.2 g/dL Normal 1.5-4.3 [facility] Comment on above: Performed By: #### 1 [id number], 6445602, [id number], [id number], 0200120, 90621345 #### [facility] (DEFAULT) [address] [place] [address] 44494 Glucose [Mass/Vol] 117.0 mg/dL Normal 74.0-118.0 [facility] Comment on above: Performed By: #### 1 [id number], 1414624, 1460668407, 0024691415, 3808650, 24000324 #### [facility] (DEFAULT) [address] [place] [address] 20917 Osmolality 293 mOsm/L Invalid Interpretation Code [facility] Comment on above: Performed By: #### 1 [id number], 8098557, [id number], [id number], 0842024, 83192580 #### [facility] (DEFAULT) [address] [place] [address] 40885 Potassium [Moles/Vol] 4.1 mmol/L Normal 3.6-5.1 [facility] Comment on above: Performed By: #### 1 [id number], 2370800, [id number], 9341508627, 2356306, 37841214 #### [facility] (DEFAULT) [address] [place] [address] 27445 Protein [Mass/Vol] 6.9 g/dL Normal 6.5-8.1 [facility] Comment on above: Performed By: #### 1 [id number], 5083541, 5588805675, 7516194884, 7292718, 44961511 #### [facility] (DEFAULT) [address] [place] [address] 89545 Sodium [Moles/Vol] 139.0 mmol/L Normal 136.0-144 . 0 [facility] Comment on above: Performed By: #### 1 [id number], 6903444, 5259461383, 7152751469, 0873180, 17607667 #### [facility] (DEFAULT) [address] [place] [address] 30705 Urea nitrogen [Mass/Vol] 53 mg/dL High 8-26 [facility] Comment on above: Performed By: #### 1 [id number], 6028608, [id number], 7222726453, 1728920, 99483284 #### [facility] (DEFAULT) [address] [place] [address] 59114 Urea nitrogen/Creatinine [Mass ratio] 31.1 mg/mg High 4.6-16.2 [facility] Comment on above: Performed By: #### 1 [id number], 7802460, 2356818543, 8080094976, 9297635, 77841957 #### [facility] (DEFAULT) [address] [place] [address] 13014 Breakpoint Chem Normal [facility] Comment on above: Performed By: #### 1 [id number], 0683176, [id number], [id number], 3184572, 85913954 #### [facility] ([facility]) [address] [place] [address] CT Head or Brain w/o Contras ton [...] Robles MD08/18/23 6:51 pm Technologist: Roger ACE [facility] CT Spine Cervical w/o Contra kim 08-18-2023 [...] Robles MD08/18/23 6:51 pm Technologist: Roger ACE [facility] ED Clinical Summaryon 2023 ED Clinical Summary [facility] - Emergency Department [address] [place] [address] ED Clinical Summary PERSON INFORMATION Name: ERIN WOODS Age: 88 Years Sex: FEMALE : 1935 MRN: Acct#: Visit Reason: Fall; FALL- HEAD INJURY Arrival: 08/18/2023 16:41:53 Discharge: 08/18/2023 19:36:00 LOS: 000 02:55 Check In: 08/18/2023 16:41:53 Checkout:08/18/2023 19:36:00 Address: [address] [place] [address] PCP: LOS CHAUDHARY PROVIDER INFORMATION Provider Role [...] Hematoma Follow-Up: With: Address: When: Provider, None [address] [place] [address] Within 3 to 5 days Comments: Follow-up [...] verbalizes understanding of instructions given Comment: Normal [facility] ED Patient Summaryon 024 ED Patient Summary [facility] - Emergency Department [address] [place], [place] [id number] PATIENT DISCHARGE INSTRUCTIONS Patient Information Name: ERIN WOODS Age: 88 Years Date of : 1935 Reason For Visit: Fall; FALL- HEAD INJURY Arrival Time: 08/18/2023 16:41:53 Phone: Primary Care Physician: LOS CHAUDHARY Attending Physician: Kwaku Santamaria MD Comment: Visit Diagnosis: Diagnoses This Visit Closed head injury (S09.90XA) Contusion (T14.8XXA) Fall ([id number]) Fall (W19.XXXA) Head injury (S09.90XA) Skin tear of upper extremity (S41.119A) Supratherapeutic INR (R79.1) The Pharmacy at [facility] is open Sunday through Sunday [...] alcohol and/or drug addiction problems; contact the [facility] 30/10 Crisis Hotline -Text 5MVKK jl 053080. If you received any narcotics, sedation, or [...] sign any legal documents With: Address: When: [place] [address] Within 3 to 5 days Comments: Follow-up [...] and treatment you received today in the [facility] Emergency Department were for an urgent problem and are not intended as complete care. It is important for you to follow up with a doctor, nurse practitioner, or physician?s political science research assistant for ongoing care. If your symptoms [...] so we can reach you if necessary. [facility] Emergency Department has provided you with a complete list of medications post discharge. Please inform your cutter wet machine/provider of your visit and for further instruction [...] CLINIC. Visit (more content not included)... Normal [facility] Extra Redon 08-18-2023 Tube Collected Yes Invalid Interpretation Code [facility] Comment on above: Performed By: #### 1 [id number], [id number], [id number], [id number], [id number] #### [facility] (DEFAULT) [address] [place] [id number] PTon 08-18-2023 INR Coag (PPP) [Relative time] 4.03 {INR} High 0.91-1.11 [facility] Comment on above: Performed By: #### 1 [id number], [id number], [id number], [id number], [id number], [id number] #### [facility] (DEFAULT) [address] [place] [address] PT 36.9 second(s) High 9.7-11.8 [facility] Comment on above: Performed By: #### 1 [id number], [id number], [id number], [id number], [id number], [id number] #### [facility] (DEFAULT) [address] [place] [address] Activated partial thrombopla stin time (aPTT) in platelet poor plasma by coagulation aOrdered By: Arthur Ovalle on 07-31-2023 aPTT Coag (PPP) [Time] 49.0 s 25.1-36.5 [facility] Comment on above: A hematocrit value g reater than 55% may lead to inaccurate results in coagulation testing. Patients having hematocrit values >55% require a special collection tube for coagulation studies. Please contact the laboratory at [phone] for redraw instructions. Alanine aminotransferase [En zymatic activity/volume] in Serum or PlasmaOrdered By: PROVIDER TEMP on 07-31-2023 ALT [Catalytic activity/Vol] 20 U/L Normal 7-52 [facility] Comment on above: Performed By: #### H S TROP, CMP, CBC, CK ####[place] [address] [place] [id number] [place] Albumin [Mass/volume] in Ser um or Plasma by Bromocresol green (BCG) dye binding methoOrdered By: PROVIDER TEMP on 07-31-2023 Albumin BCG dye [Mass/Vol] 3.9 g/dL 3.5-5.7 [facility] Alkaline phosphatase [Enzyma tic activity/volume] in Serum or PlasmaOrdered By: PROVIDER TEMP on 07-31-2023 ALP [Catalytic activity/Vol] 72 U/L Normal 34-104 [facility] Comment on above: Performed By: #### H S TROP, CMP, CBC, CK ####[facility] [place] [address] [facility] Aspartate aminotransferase [ Enzymatic activity/volume] in Serum or PlasmaOrdered By: PROVIDER TEMP on 07-31-2023 AST [Catalytic activity/Vol] 21 U/L Normal 13-39 [facility] Comment on above: Performed By: #### H S TROP, CMP, CBC, CK ####[facility] [place] [address] [facility] Automated basophil %Ordered By: PROVIDER TEMP on 07-31-2023 Basophils/100 WBC (Bld) 1.0 % Normal . [facility] Comment on above: Performed By: #### H S TROP, CMP, CBC, CK ####[address] Automated basophil countOrde red By: PROVIDER TEMP on 07-31-2023 Basophils (Bld) [#/Vol] 0.1 10*3/uL Normal 0.0-0.2 [facility] Comment on above: Result Comment: PERF ORMED BY: [facility] [address] [place] [address] PATHOLOGIST PACU NURSE GIULIA VALERIO M.D. Performed By: #### H S TROP, CMP, CBC, CK ####[address] Automated blood monocyte cou ntOrdered By: PROVIDER TEMP on 07-31-2023 Monocytes (Bld) [#/Vol] 0.5 10*3/uL Normal 0.0-0.8 [facility] Comment on above: Performed By: #### H S TROP, CMP, CBC, CK ####[address] Automated eosinophil %Ordere d By: PROVIDER TEMP on 07-31-2023 Eosinophils/100 WBC (Bld) 0.7 % Normal . [facility] Comment on above: Performed By: #### H S TROP, CMP, CBC, CK ####[address] Automated eosinophil countOr dered By: PROVIDER TEMP on 07-31-2023 Eosinophils (Bld) [#/Vol] 0.0 10*3/uL Normal 0.0-0.45 [facility] Comment on above: Performed By: #### H S TROP, CMP, CBC, CK ####[address] Automated monocyte %Ordered By: PROVIDER TEMP on 07-31-2023 Monocytes/100 WBC (Bld) 8.5 % Normal . [facility] Comment on above: Performed By: #### H S TROP, CMP, CBC, CK ####[address] Automated neutrophil %Ordere d By: PROVIDER TEMP on 07-31-2023 Neutrophils/100 WBC (Bld) 76.1 % Normal . [facility] Comment on above: Performed By: #### H S TROP, CMP, CBC, CK ####[address] BNP ser/plasOrdered By: Jose Ovalle on 07-31-2023 Natriuretic peptide B (Bld) [Mass/Vol] 343.0 pg/mL High 5-100 [facility] Comment on above: Result Comment: PERF ORMED BY: [facility] [address] [place] [address] PATHOLOGIST PACU NURSE GIULIA VALERIO M.D. Performed By: #### P TT, BNP, PT ####[address] Bilirubin.total [Mass/volume ] in Serum or PlasmaOrdered By: PROVIDER TEMP on 07-31-2023 Bilirubin [Mass/Vol] 0.5 mg/dL Normal 0.3-1.0 [facility] Comment on above: Performed By: #### H S TROP, CMP, CBC, CK ####[address] COVID CepheidOrdered By: PRO VIDER TEMP on 07-31-2023 SARS-CoV-2 (COVID-19) Ab IA Ql Negative Negative [facility] Comment on above: This is a duplicate Cepheid Xpert Xpress CoV-2/Flu/RSV Plus RNA by RT-PCR result to be used for statistical tracking purpose only. COVID CepheidOrdered By: Americo Ovalle on 07-31-2023 SARS-CoV-2 (COVID-19) RNA CIERA+probe Ql (Unsp spec) [facility] COVID-19 / Flu A/B / RSV [...] or Cepheid Disclaimer revoked sooner. PERFORMED BY: [address] [place] [address] PATHOLOGIST PACU NURSE GIULIA VALERIO M.D. Normal [facility] Comment on above: Performed By: #### P T #### [address] [place] [address] [place] Calcium [Mass/volume] in Ser um or PlasmaOrdered By: PROVIDER TEMP on 07-31-2023 Calcium [Mass/Vol] 8.8 mg/dL Normal 8.6-10.3 [facility] Comment on above: Performed By: #### H S TROP, CMP, CBC, CK ####[address] Carbon dioxide, total [Moles /volume] in Serum or PlasmaOrdered By: PROVIDER TEMP on 07-31-2023 CO2 [Moles/Vol] 27.2 mmol/L Normal 21.0-31.0 [facility] Comment on above: Performed By: #### H S TROP, CMP, CBC, CK ####[address] Cepheid COVID PCR Negativeon 07-31-2023 SARS-CoV-2 (COVID-19) RNA CIERA+probe Ql (Unsp spec) Negative Normal Negative [facility] Comment on above: Result Comment: This is a duplicate Cepheid Xpert Xpress CoV-2/Flu/RSV Plus RNA by RT-PCR result to be used for statistical tracking purpose only. PERFORMED BY: [place] [address] PATHOLOGIST PACU NURSE GIULIA VALERIO M.D. Performed By: #### P T #### [address] Chloride [Moles/volume] in S payal or PlasmaOrdered By: PROVIDER TEMP on 07-31-2023 Chloride [Moles/Vol] 104 mmol/L Normal 98-107 [facility] Comment on above: Performed By: #### H S TROP, CMP, CBC, CK ####[address] Complete Blood Count Auto Di ffon 07-31-2023 Mean Corpuscular HGB Conc 33.1 g/dL Normal 32.0-35.0 [facility] Comment on above: Performed By: #### H S TROP, CMP, CBC, CK ####[place] [id number] [facility] Monocytes/100 WBC (Bld) 17.74 % Normal 0.00-20.00 [facility] Comment on above: Performed By: #### H S TROP, CMP, CBC, CK ####[address] NRBC% 0.1 /100{WBC} Normal 0-0.5 [facility] Comment on above: Performed By: #### H S TROP, CMP, CBC, CK ####[place] [id number] [facility] Comprehensive Metabolic Pane michelle 07-31-2023 Albumin [Mass/Vol] 3.9 g/dL Normal 3.5-5.7 [facility] Comment on above: Performed By: #### H S TROP, CMP, CBC, CK ####[address] Creatinine Clr Calc Pharmacy 23.97 Normal [facility] Comment on above: Result Comment: PERF ORMED BY: [facility] [address] [place] [address] PATHOLOGIST PACU NURSE GIULIA VALERIO M.D. Performed By: #### H S TROP, CMP, CBC, CK ####[address] GFR/1.73 sq M.predicted MDRD (S/P/Bld) [Vol rate/Area] 32.327 mL/min/{1.73_m2} Normal [facility] Comment on above: Performed By: #### H S TROP, CMP, CBC, CK ####[address] Creatine kinase [Enzymatic a ctivity/volume] in Serum or PlasmaOrdered By: PROVIDER TEMP on 07-31-2023 CK [Catalytic activity/Vol] 32 U/L Normal 30-223 [facility] Comment on above: Performed By: #### H S TROP, CMP, CBC, CK ####[address] [place] [address] [facility] Creatinine [Mass/volume] in Serum or PlasmaOrdered By: PROVIDER TEMP on 07-31-2023 Creatinine [Mass/Vol] 1.53 mg/dL High 0.60-1.20 [facility] Comment on above: Performed By: #### H S TROP, CMP, CBC, CK ####[place] [address] [place] [id number] [facility] ECG 12 lead ECGon 07-31-2023 ECG 12 lead ECG [facility] [address] [place] [address] [place] [address] Electrocardiograph Report Signed Patient: Erin Canales MR#: [id number] : 1935 Acct:[id number] Age/Sex: 88 / F ADM Date: 07/31/23 Loc: ER Room: Type: [facility] ER Attending Dr: Ordering Provider: Arthur Ovalle [...] Rightward axis Confirmed by Talha Oakes DO ([id number]) on 08/01/2023 12:46:46 AM Referred By: Electronically Signed By:Talha Oakes DO Transcribed By: MUS Signed By Talha Oakes DO [id number] Normal [facility] Erythrocyte distribution wid th [Ratio] by Automated countOrdered By: PROVIDER TEMP on 07-31-2023 Erythrocyte distribution width (RBC) [Ratio] 16.6 % High 11.9-15.3 [facility] Comment on above: Performed By: #### H S TROP, CMP, CBC, CK ####[place] [address] [place] [address] [facility] Erythrocytes [#/volume] in B lood by Automated countOrdered By: PROVIDER TEMP on 07-31-2023 RBC (Bld) [#/Vol] 3.54 10*6/uL Low 3.60-5.00 [facility] Comment on above: Performed By: #### H Servando BOOTH, CMP, CBC, CK ####[place] [address] [place] [id number] [facility] Glucose [Mass/volume] in Ser um or PlasmaOrdered By: PROVIDER TEMP on 07-31-2023 Glucose [Mass/Vol] 113 mg/dL High 70-100 [facility] Comment on above: ADA recommended refe rence rangeRandom Glucose Reference Range is dependent on time and content of last meal. Glucose of more than 200 mg/dL in a nonstressed, ambulatory subject supports the diagnosis of Diabetes Mellitus. Result Comment: Olga om Glucose Reference Range is dependent on time and content of last meal. Glucose of more than 200 mg/dL in a nonstressed, ambulatory subject supports the diagnosis of Diabetes Mellitus. ADA recommended reference range Performed By: #### H S EMMY, CMP, CBC, CK ####[place] [address] [place] [id number] [facility] Hematocrit [Volume Fraction] of Blood by Automated countOrdered By: PROVIDER TEMP on 07-31-2023 Hematocrit (Bld) [Volume fraction] 35.9 % Normal 34.0-46.4 [facility] Comment on above: Performed By: #### H Servando BOOTH, CMP, CBC, CK ####[place] [id number] [facility] Hemoglobin [Mass/volume] in BloodOrdered By: PROVIDER TEMP on 07-31-2023 Hemoglobin (Bld) [Mass/Vol] 11.9 g/dL Normal 11.8-15.4 [facility] Comment on above: Performed By: #### H S EMMY, CMP, CBC, CK ####[facility] [address] [place], [place] [id number] [facility] INR in Platelet poor plasma by Coagulation assayOrdered By: Arthur Ovalle on 07-31-2023 INR Coag (PPP) [Relative time] 4.6 {INR} Normal [facility] Comment on above: INR Therapeutic Rang [...] with mechanical heart valves: 3 - 4.5 Result Comment: INR Therapeutic Range A) Pre- [...] - 4.5 Performed By: #### P TT, BNP, PT ####[place] [address] Leukocytes [#/volume] correc basim for nucleated erythrocytes in Blood by Automated counOrdered By: PROVIDER TEMP on 07-31-2023 WBC corrected for nucl RBC Auto (Bld) [#/Vol] 6.2 10*3/uL 3.8-11.6 [facility] Leukocytes [#/volume] in Blo od by Automated countOrdered By: PROVIDER TEMP on 07-31-2023 WBC (Bld) [#/Vol] 6.2 10*3/uL Normal 3.8-11.6 [facility] Comment on above: Performed By: #### H S TROP, CMP, CBC, CK ####[address] Lymphocytes [#/volume] in Bl ood by Automated countOrdered By: PROVIDER TEMP on 07-31-2023 Lymphocytes (Bld) [#/Vol] 0.9 10*3/uL Low 1.00-4.8 [facility] Comment on above: Performed By: #### H S TROP, CMP, CBC, CK ####[address] Lymphocytes/100 leukocytes i n Blood by Automated countOrdered By: PROVIDER TEMP on 07-31-2023 Lymphocytes/100 WBC (Bld) 13.7 % Normal . [facility] Comment on above: Performed By: #### H S TROP, CMP, CBC, CK ####[facility] [id number] MCH [Entitic mass] by Automa basim countOrdered By: PROVIDER TEMP on 07-31-2023 MCH (RBC) [Entitic mass] 33.6 pg Normal 24.7-34.3 [facility] Comment on above: Performed By: #### H S TROP, CMP, CBC, CK ####[facility] [id number] MCHC Auto (RBC) [Mass/Vol]Or dered By: PROVIDER TEMP on 07-31-2023 MCHC (RBC) [Mass/Vol] 33.1 g/dL 32.0-35.0 [facility] MCV [Entitic volume] by Auto mated countOrdered By: PROVIDER TEMP on 07-31-2023 MCV (RBC) [Entitic vol] 101.2 fL High 80-100 [facility] Comment on above: Performed By: #### H S TROP, CMP, CBC, CK ####[place] [address] Monocyte distribution width [Entitic volume] in Blood by AutomatedOrdered By: PROVIDER TEMP on 07-31-2023 Monocyte distribution width Auto (Bld) [Entitic vol] 17.74 % 0.00-20.00 [facility] Neutrophils [#/volume] in Bl ood by Automated countOrdered By: PROVIDER TEMP on 07-31-2023 Neutrophils (Bld) [#/Vol] 4.7 10*3/uL Normal 1.8-7.7 [facility] Comment on above: Performed By: #### H S TROP, CMP, CBC, CK ####[place] [address] No Panel InformationOrdered By: PROVIDER TEMP on 07-31-2023 Estimated GFR (CKD-EPI) 32.327 mL/Min [facility] Creatinine Clearance (Chem 23.97 [facility] Nucleated erythrocytes [Pres ence] in Blood by Automated countOrdered By: PROVIDER TEMP on 07-31-2023 Nucleated RBC Auto Ql (Bld) 0.1 /100{WBC} 0-0.5 [facility] Partial Thromboplastin Timeo n 07-31-2023 aPTT Coag (Bld) [Time] 49.0 s High 25.1-36.5 [facility] Comment on above: Result Comment: A he matocrit value greater than 55% may lead to inaccurate results in coagulation testing. Patients having hematocrit values >55% require a special collection tube for coagulation studies. Please contact the laboratory at [phone] for redraw instructions. PERFORMED BY: [facility] [address] [place] [id number] PATHOLOGIST PACU NURSE GIULIA VALERIO M.D. Performed By: #### P TT, BNP, PT ####[place] [id number] [facility] Platelet mean volume [Entiti c volume] in Blood by Automated countOrdered By: PROVIDER TEMP on 07-31-2023 Platelet mean volume (Bld) [Entitic vol] 8.3 fL Normal 6.3-10.7 [facility] Comment on above: Performed By: #### H S TROP, CMP, CBC, CK ####[place] [id number] [facility] Platelets [#/volume] in Bloo d by Automated countOrdered By: PROVIDER TEMP on 07-31-2023 Platelets (Bld) [#/Vol] 172 10*3/uL Normal 150-450 [facility] Comment on above: Performed By: #### H S TROP, CMP, CBC, CK ####[address] [address] [facility] Potassium [Moles/volume] in Serum or PlasmaOrdered By: PROVIDER TEMP on 07-31-2023 Potassium [Moles/Vol] 4.2 mmol/L Normal 3.5-5.1 [facility] Comment on above: Performed By: #### H S TROP, CMP, CBC, CK ####[place] [id number] [facility] Protein [Mass/volume] in Ser um or PlasmaOrdered By: PROVIDER TEMP on 07-31-2023 Protein [Mass/Vol] 6.7 g/dL Normal 6.4-8.9 [facility] Comment on above: Performed By: #### H S TROP, CMP, CBC, CK ####[place] [address] Prothrombin time (PT)Ordered By: Arthur Ovalle on 07-31-2023 PT Coag (PPP) [Time] 50.5 s High 9.0-12.9 [facility] Comment on above: A hematocrit value g reater than 55% may lead to inaccurate results in coagulation testing. Patients having hematocrit values >55% require a special collection tube for coagulation studies. Please contact the laboratory at [phone] for redraw instructions. Result Comment: A he matocrit value greater than 55% may lead to inaccurate results in coagulation testing. Patients having hematocrit values >55% require a special collection tube for coagulation studies. Please contact the laboratory at [phone] for redraw instructions. Performed By: #### P TT, BNP, PT ####[place] [address] Serum globulin measurement b y calculation (mass/volume)Ordered By: PROVIDER TEMP on 07-31-2023 Globulin (S) [Mass/Vol] 2.8 g/dL [facility] Comment on above: Performed By: #### H S TROP, CMP, CBC, CK ####[address] Serum or plasma albumin/glob ulin mass ratioOrdered By: PROVIDER TEMP on Albumin/Globulin [Mass ratio] 1.4 {ratio} [facility] Comment on above: Performed By: #### H S TROP, CMP, CBC, CK ####[address] Serum or plasma anion gap de terminationOrdered By: PROVIDER TEMP on 07-31-2023 Anion gap [Moles/Vol] 11.0 mmol/L Normal 6.0-15.0 [facility] Comment on above: Performed By: #### H S TROP, CMP, CBC, CK ####[place] [address] [place] [id number] [facility] Sodium [Moles/volume] in Ser um or PlasmaOrdered By: PROVIDER TEMP on 07-31-2023 Sodium [Moles/Vol] 138 mmol/L Normal 136-145 [facility] Comment on above: Performed By: #### H S TROP, CMP, CBC, CK ####[place] [address] [place] [id number] [facility] Troponin I High Sensitivityo n 07-31-2023 Troponin I High Sensitivity 16.7 pg/mL High 0.0-15.0 [facility] Comment on above: Result Comment: PERF ORMED BY: [facility] [address] [place] [address] PATHOLOGIST PACU NURSE GIULIA VALERIO M.D. Performed By: #### H S TROP, CMP, CBC, CK ####[place] [id number] [facility] Troponin I.cardiac [Mass/vol ume] in Serum or Plasma by Detection limit <= 0.01 ng/Ordered By: PROVIDER TEMP on 07-31-2023 Troponin I.cardiac DL <= 0.01 ng/mL [Mass/Vol] 16.7 pg/mL 0.0-15.0 [facility] Urea nitrogen [Mass/volume] in Serum or PlasmaOrdered By: PROVIDER TEMP on 07-31-2023 Urea nitrogen [Mass/Vol] 51 mg/dL High 7-25 [facility] Comment on above: Performed By: #### H S TROP, CMP, CBC, CK ####[place] [id number] [facility] XR chest 2V*on 07-31-2023 XR chest 2V* [facility] [address] [place] [address] [place] [address] XRay Report Signed Patient: Erin Canales MR#: [id number] : 1935 Acct:[id number] Age/Sex: 88 / F ADM Date: 07/31/23 Loc: ER Room: Type: [facility] ER Attending Dr: Copies to: Arthur [...] Christine Aguila M.D.07/31/2023 7:20 PM Dictation Location: [place] [address] Transcribed By: [facility] 07/31/231919 Dictated By: Christine Aguila MD 07/31/231916 Signed By: 07/31/231919 Normal [facility] CNOVon 07-26-2023 CNOV Office Visit (PLASST ) -- ERIN CANALES ([id number]) 1935 F Date Time Provider Department 07/26/23 [...] of left upper eyelid weight (1.6 g kaw weight placed in the left upper eyelid), [...] 1 tablet by mouth once daily. [facility] clopidogrel (PLAVIX) 75 mg tablet Take 75 [...] of left upper eyelid weight (1.6 g kaw weight placed in the left upper eyelid), [...] with more than 50% of the total [id number] time of the visit in counseling / [...] As of Date: 07/26/2023 Noted Allergy Reaction [id number] REDUCTASE INHIBIT*08/25/2022 14 - Other: See Comments [...] - nitroglycer (more content not included)... Normal [facility] CNOVon 05-21-2023 CNOV Office Visit (PLASST ) -- ERIN CANALES ([id number]) 1935 F Date Time Provider Department 05/21/23 8:40 AM ROSALVA LEMOS During your visit today, we recorded the following information about you: Rosalva Lemos APRN.MANAGER OF DISTRIBUTION 05/21/2023 9:27 AM Signed Plastic Surgery Post Op Note CC: post op HPI Date of Surgery: 04/24/2023 Surgery: insertion of left upper eyelid weight (1.6 g kaw weight placed in the left upper eyelid), [...] Take 1 tablet by mouth once daily. [facility] clopidogrel (PLAVIX) 75 mg tablet Take 75 [...] questions or concerns during business hours call [phone] or after hours (after 5 pm or on the weekend) call [phone] and ask for the plastic surgery resident / fellow application security engineer for further instructions. If you have increasing [...] or notice (more content not included)... Normal [facility] Aspartate aminotransferase [ Enzymatic activity/volume] in Serum or PlasmaOrdered By: Akhil Olivarez on 05-15-2023 AST [Catalytic activity/Vol] 18 U/L Normal 13-39 [facility] Comment on above: Performed By: #### H S TROP #### [address] Basic Metabolic Panelon GFR/1.73 sq M.predicted MDRD (S/P/Bld) [Vol rate/Area] 47.298 mL/min/{1.73_m2} Normal [facility] Comment on above: Performed By: #### H S TROP #### [place] [id number] [facility] Calcium [Mass/volume] in Ser um or PlasmaOrdered By: Akhil Olivarez on 05-15-2023 Calcium [Mass/Vol] 9.4 mg/dL Normal 8.6-10.3 [facility] Comment on above: Performed By: #### H S TROP #### [facility] [address] [place] [address] [place] Carbon dioxide, total [Moles /volume] in Serum or PlasmaOrdered By: Akhil Olivarez on 05-15-2023 CO2 [Moles/Vol] 25.4 mmol/L Normal 21.0-31.0 [facility] Comment on above: Performed By: #### H S TROP #### [facility] [address] [place] [address] [place] Chloride [Moles/volume] in S payal or PlasmaOrdered By: Akhil Olivarez on 05-15-2023 Chloride [Moles/Vol] 104 mmol/L Normal 98-107 [facility] Comment on above: Performed By: #### H S TROP #### [address] Creatinine [Mass/volume] in Serum or PlasmaOrdered By: Akhil Olivarez on 05-15-2023 Creatinine [Mass/Vol] 1.12 mg/dL Normal 0.60-1.20 [facility] Comment on above: Performed By: #### H S TROP #### [place] [address] [place] Glucose [Mass/volume] in Ser um or PlasmaOrdered By: Akhil Olivarez on 05-15-2023 Glucose [Mass/Vol] 128 mg/dL High 70-100 [facility] Comment on above: ADA recommended refe rence rangeRandom Glucose Reference Range is dependent on time and content of last meal. Glucose of more than 200 mg/dL in a nonstressed, ambulatory subject supports the diagnosis of Diabetes Mellitus. Result Comment: Olga om Glucose Reference Range is dependent on time and content of last meal. Glucose of more than 200 mg/dL in a nonstressed, ambulatory subject supports the diagnosis of Diabetes Mellitus. ADA recommended reference range Performed By: #### H S TROP #### [address] No Panel InformationOrdered By: Akhil Olivarez on 05-15-2023 Estimated GFR (CKD-EPI) 47.298 mL/Min [facility] Creatinine Clearance (Chem N/A [facility] Potassium [Moles/volume] in Serum or PlasmaOrdered By: Akhil Olivarez on 05-15-2023 Potassium [Moles/Vol] 4.4 mmol/L Normal 3.5-5.1 [facility] Comment on above: Performed By: #### H S TROP #### [address] Serum or plasma anion gap de terminationOrdered By: Akhil Olivarez on 05-15-2023 Anion gap [Moles/Vol] 13.0 mmol/L Normal 6.0-15.0 [facility] Comment on above: Performed By: #### H S TROP #### [address] Sodium [Moles/volume] in Ser um or PlasmaOrdered By: Akhil Olivarez on 05-15-2023 Sodium [Moles/Vol] 138 mmol/L Normal 136-145 [facility] Comment on above: Performed By: #### H S TROP #### [address] Thyrotropin [Units/volume] i n Serum or PlasmaOrdered By: Akhil Olivarez on 05-15-2023 TSH Qn 3.73 m[IU]/L Normal 0.45-5.33 [facility] Comment on above: Result Comment: PERF ORMED BY: [place] [address] PATHOLOGIST PACU NURSE GIULIA VALERIO M.D. Performed By: #### H S TROP #### [address] Urea nitrogen [Mass/volume] in Serum or PlasmaOrdered By: Akhil Olivarez on 05-15-2023 Urea nitrogen [Mass/Vol] 43 mg/dL High 7-25 [facility] Comment on above: Performed By: #### H S TROP #### [place] [id number] [place] XR chest 2V*on 05-15-2023 XR chest 2V* [facility] [place] [address] XRay Report Signed Patient: Erin Canales MR#: [id number] : 1935 Acct:[id number] Age/Sex: 87 / F ADM Date: 05/15/23 Loc: XD Room: Type: [facility] Attending Dr: Akhil Olivarez MD Copies to: [...] John Crouch M.D.05/15/2023 4:20 PM Dictation Location: [place] [address] Transcribed By: [facility] 05/15/23 1620 Dictated By: Jonh Crouch II, MD 05/15/23 1619 Signed By: 05/15/23 1620 Normal [facility] CNOVon 04-30-2023 CNOV Office Visit (PLASST ) -- ERIN CANALES ([id number]) 1935 F Date Time Provider Department 04/30/23 10:40 AM ROSALVA LEMOS During your visit today, we recorded the following information about you: Rosalva Lemos APRN.CNP 04/30/2023 10:27 AM Signed Plastic Surgery Post Op Note CC: post op HPI Date of Surgery: 04/24/2023 Surgery: insertion of left upper eyelid weight (1.6 g kaw weight placed in the left upper eyelid), [...] Take 1 tablet by mouth once daily. [facility] clopidogrel (PLAVIX) 75 mg tablet Take 75 [...] questions or concerns during business hours call [phone] or after hours (after 5 pm or on the weekend) call [phone] and ask for the plastic surgery resident / fellow application security engineer for further instructions. If you have increasing [...] greenish drainage (more content not included)... Normal [facility] ANES POSTPROC EVALon 024 ANES POSTPROC EVAL HNO ID: [id number] Author: GWEN BLACK MD Service: Anesthesiology Author Type: Anesthesiologist Type: Anesthesia Postprocedure Evaluation Filed: 04/24/2023 13:28 Note Text: POST ANESTHESIA EVALUATION NOTE : 1935 Procedure Summary Date: 04/24/23 Room / Location: OR / [facility] OR Anesthesia Start: 756 Anesthesia [...] April 24, 2023 TIME: 1:28 PM CSN: [id number] [facility] ANES PRE-OPon 04-24-2023 ANES PRE-OP HNO ID: [id number] Author: GWEN BLACK MD Service: Anesthesiology Author Type: Anesthesiologist Type: Anesthesia Preprocedure Evaluation Filed: 04/24/2023 07:10 Note Text: ANESTHESIOLOGY DAY OF SURGERY NOTE : 1935 Procedure Information Date/Time: 04/24/2330 Procedure: CORRECT LAGOPTHALMOS W/ IMPLANT UPPER LID [...] and consent discussed: yes. Patient / Responsible Democrat agrees to proceed: yes Patient / Surrogate agrees to blood products: Yes Significant changes in the patient condition since the History and Physical, not otherwise documented in primary service progress note: no. Potential Anesthesia issues that may suggest increased risk of complications or contraindication to planned procedure: none. Vitals Value Taken Time BP 134/53 04/24/2348 Pulse 61 04/24/23647 Resp 18 04/24/23647 Temp 37.1 ?C (98.8 ?F) 04/24/23647 SpO2 [...] April 24, 2023 TIME: 7:09 AM CSN: [id number] [facility] BRIEF OP NOTon 04-24-2023 BRIEF OP NOT HNO ID: [id number] Author: PAMELA SPICER DO Service: Plastic Surgery Author Type: Resident Type: Brief Op Note Filed: 04/24/2023 09:20 Note Text: PLASTIC SURGERY - BRIEF OP NOTE Patient Name: Erin Canales Log ID: [id number] Surgery Date: 04/24/2023 Surgeon(s) and Tile Grinder(s): Surgeon(s) and Role: * Shweta Sol MD [...] Surgery Hand Surgery Resident - PGY-5 Pager: [phone] *After 6PM AND on weekends, please page [phone] (Plastic Surgery Theatrical Performer)* Normal [facility] HISTORY PHYSICALon HISTORY PHYSICAL HNO ID: [id number] Author: SHWETA SOL MD Service: Plastic Surgery [...] DATE: April 24, 2023 TIME: 7:22 AM [facility] NURSING PROGon 04-24-2023 NURSING PROG HNO ID: [id number] Author: ALAN JAMES RN Service: Nursing Author [...] PROVIDED TO PATIENT: Post op discharge instructions. [facility] NURSING PROG HNO ID: [id number] Author: JAE STEVEN RN Service: Nursing Author Type: Registered Nurse [...] REFERRAL (RECOMMENDATION): None Electronically Signed By: Jae Garnetter [facility] OPERATIVE NOon 04-24-2023 OPERATIVE NO HNO ID: [id number] Author: SHWETA SOL MD Service: Plastic Surgery Author Type: Physician Type: Operative Report Filed: 04/24/2023 09:53 Note Text: OPERATIVE REPORT NAME: Erin Canales AGE: [age] year old SURGERY/ PROCEDURE DATE: 04/24/2023 INCISION/ PROCEDURE START TIME: 8:27 AM INCISION CLOSE/ PROCEDURE ENDTIME: 9:20 AM SURGEON(S)/DENTAL ASSISTANT INSTRUCTOR(S): Surgeon(s) and Role: * Shweta Sol MD [...] due to her facial paralysis and chooses kaw weight and direct brow lift with evaluation [...] Implant Name Type Inv. Item Serial No. Informatics Analyst Lot No. LRB No. Used Action Model No. OCULID VENETIE IRA SLIM Implant [id number] Left 1 Implanted [id number] Operative Findings: The procedure was performed as planned. 1.6 g kaw weight placed in the left upper eyelid Estimated Blood Loss: 3 mL Specimens: None Drains: None Complications: None Participation in Procedure: I/primary surgeon/proceduralist performed the procedure with assistance. SIGNATURE: Shweta Sol MD PATIENT NAME: Erin Canales DATE: April 24, 2023 TIME: 9:46 AM PAGER/CONTACT #: [phone] [facility] 04-05-2023 [facility] Telephone (LISA) -- BARRON CANALESJANA Iraheta ([id number]) 1935 F Date Time Provider Department 04/05/23 LETICIA LIM During your visit today, we recorded the following information about you: Leticia Lim PA-C 04/05/2023 12:07 PM Signed Good afternoon, I saw this patient for PACC for upcoming surgery scheduled 04/16/23 at [facility]. She has a significant cardiac PMH including pacemaker, CAD, A.fib, pulmonary HTN, CHF, and valvular heart disease. Due to pt's PMH and surgery being scheduled at [facility], I reviewed patient's chart with staff anesthesiologist, Dr. Dumont. Per Dr. Dumont, this patient is not an ASC candidate and surgery needs to be moved to a hospital setting. Please let me know if you have any questions or concerns. Thank you, Leticia Lim PA-C PACC HanoverBeatris Jacobo LPN 04/05/2023 1:53 PM Signed Thanks for letting us know, Leticia. I am forwarding your message to Dr. Sol's team at [facility] to reschedule under hospital setting. Please call patient on rescheduling surgery in hospital. Beatris Castañeda LPN Allergies As of Date: 04/05/2023 Noted Allergy Reaction [id number]-[id number] REDUCTASE INHIBIT*08/25/2022 14 - Other: See Comments [...] Status:Closed by BRENT MEHTA on 04/06/23 Normal [facility] Mamm Screen w/CAD if perf and 3D Bilon 04-04-2023 MA Mamm Screen w/CAD if perf and 3D Jean Claude Exam Date/Time: 03/30/2023 16:08 EST Reason for Exam: Z12.31 Report IMPRESSION: BIRADS 2 BENIGN FINDINGS, NORMAL INTERVAL FOLLOW-UP Follow-up: 12 MONTH RECALL Density: Scattered tissue. Vascular calcifications: Present. EXAM: DC Mamm Screen w/CAD if perf and 3D [...] VERY IMPORTANT TO YOUR HEALTH. THE CURRENT [employer] [...] 2-Benign finding Recommendation: Normal interval follow-up Normal [facility] Consent for Treatmenton 03-10 Consent for Treatment [id number] Normal [facility] CNCOon 03-29-2023 CNCO Letter Text Normal [facility] CNOVon 03-29-2023 CNOV Office Visit (PLASST ) -- ERIN CANALES ([id number]) 1935 F Date Time Provider Department 03/29/23 1:45 PM SHWETA SOL During your visit today, we recorded the following information about you: Shweta Sol MD 03/29/2023 2:35 PM Signed CC: 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 This developed [...] mouth once daily. Allergies: ALLERGIES Allergen Reactions Wtykxsq-Zsu-Lbt Red* Other: See Comments Cannot walk when [...] Past Histories independently gathered by the clinical sales support associate and the remaining scribed note accurately describes my personal service to the patient. 30 Minutes total visit spent face to face with patient. Greater than 50% of the time was spent for counseling and coordination of care, discussing treatment options and recommendations. By signing my name below, IChloe, attest [...] 2023 2:34 PM Referring Provider: SHWETA SOL [[id number]] Allergies As of Date: 03/29/2023 Noted Allergy Reaction NIAGVDZ-NJJ-GUS REDUCTASE INHIBIT*08/25/2022 14 - Other: See Comments Comments: Cannot walk when she takes it MOTRIN (IBUPROFEN) 10/29/2012 4 - Hives Date Reviewed: 03/29/2023 Reviewed by: Beatris Castañeda LPN - Fully Assessed Primary Visit Diagnosi (more content not included)... Normal [facility] CNPNon 03-29-2023 CNPN Telephone (PANEST) -- ERIN CANALES ([id number]) 1935 F Date Time Provider Department 03/29/23 CHERRIE GAMINO During your visit today, we recorded the following information about you: Cherrie Gamino LPN 03/29/2023 3:03 PM Signed Cardiac clearance and medication instructions requested from Dr. Olivarez. JOVANNI Macedo Peggy Ann, RN 04/06/2023 9:07 AM Signed Addendum-04/03 AND 04/06. Called [facility] to confirm card optimization letter was received. [...] instructions back to me. Scanned letter into [employer]. Cherrie Gamino LPN Allergies As of Date: 03/29/2023 Noted Allergy Reaction STKAZJL-EPE-PQJ REDUCTASE INHIBIT*08/25/2022 14 - Other: See Comments [...] 1 tablet by mouth once daily. [facility] - clopidogrel (PLAVIX) 75 mg tablet Take [...] Status:Closed by CHERRIE GAMINO on 03/29/23 Normal [facility] HISTORY PHYSICALon HISTORY PHYSICAL HNO ID: [id number] Author: Leticia Lim PA-C Service: ? Author Type: Physician Tile Grinder Type: HANDP Filed: 04/10/2023 12:22 PM Note [...] 4 in 2009 (stents were patent on [facility] 09/2022), s/p PCI to circumflex 09/2022, on ASA 81 mg 2x per week, Plavix, and isosorbide. Follows with outside cards, Dr. Olivarez, [facility] 02/26/23 Mickey James CNP. Letter faxed to Dr. Olivarez on 03/29/2023 for cardiac optimization and Plavix clearance. Congestive heart failure (HCC) Assessment: LVEF 55% on [facility] 09/2022, on torsemide. Appears euvolemic on exam [...] Assessment: 10/2021, has significant L-sided facial droop. Suoth Activity Status Index: METS: Climb a flight [...] large neck Non-male patient STOP-Bang Score: 3 [id number] Score: Age: >=75 Sex: female CHF history: Yes Hypertension history: Yes Stroke/TIA/thromboembolism history: No Vascular disease history: Yes Diabetes history: No [id number] Score: 6 ANESTHESIA FINDINGS: Intubation History: No [...] sclerosis, [place] (more content not included)... [facility] ERIN CANALES ([id number]) 1935 F Date Time Provider Department 03/21/23 SHWETA SOL During your visit today, we recorded the following information about you: Jerilyn Rosa 03/21/2023 11:14 AM Signed PAC calling in asking for patients procedure if you are using local if so she does not need a PAC appt please advise. Ph- [phone] Beatris Castañeda LPN 03/21/2023 12:55 PM Signed [...] As of Date: 03/21/2023 Noted Allergy Reaction MSBLYXW-QEF-ECC REDUCTASE INHIBIT*08/25/2022 14 - Other: See Comments Comments: Cannot walk when she takes it MOTRIN (IBUPROFEN) 10/29/2012 16 - Unknown Date Reviewed: 12/13/2022 Reviewed by: Amanda Chamberlain PCNA - Fully Assessed Reason for Visit: General Questions [9275] Prescriptions as of 03/29/2023 - aspirin, enteric [...] by BEATRIS CASTAÑEDA LPN on 03/21/23 Normal [facility] Aspartate aminotransferase [ Enzymatic activity/volume] in Serum or PlasmaOrdered By: Akhil Olivarez on 12-14-2022 AST [Catalytic activity/Vol] 19 U/L Normal 13-39 [facility] Comment on above: Order Comment: PT IS FASTING Performed By: #### P T, BNP, CBC, CK, HS TROP, BMP, PTT #### [address] Basic Metabolic Panelon GFR/1.73 sq M.predicted MDRD (S/P/Bld) [Vol rate/Area] 42.268 mL/min/{1.73_m2} Normal [facility] Comment on above: Order Comment: PT IS FASTING Performed By: #### P T, BNP, CBC, CK, HS TROP, BMP, PTT #### [address] Calcium [Mass/volume] in Ser um or PlasmaOrdered By: Akhil Olivarez on 12-14-2022 Calcium [Mass/Vol] 9.6 mg/dL Normal 8.6-10.3 [facility] Comment on above: Order Comment: PT IS FASTING Performed By: #### P T, BNP, CBC, CK, HS TROP, BMP, PTT #### [address] Carbon dioxide, total [Moles /volume] in Serum or PlasmaOrdered By: Akhil Olivarez on 12-14-2022 CO2 [Moles/Vol] 30.6 mmol/L Normal 21.0-31.0 [facility] Comment on above: Order Comment: PT IS FASTING Performed By: #### P T, BNP, CBC, CK, HS TROP, BMP, PTT #### [facility] [address] Chloride [Moles/volume] in S payal or PlasmaOrdered By: Akhil Olivarez on 12-14-2022 Chloride [Moles/Vol] 104 mmol/L Normal 98-107 [facility] Comment on above: Order Comment: PT IS FASTING Performed By: #### P T, BNP, CBC, CK, HS TROP, BMP, PTT #### [facility] [address] Creatinine [Mass/volume] in Serum or PlasmaOrdered By: Akhil Olivarez on 12-14-2022 Creatinine [Mass/Vol] 1.23 mg/dL High 0.60-1.20 [facility] Comment on above: Order Comment: PT IS FASTING Performed By: #### P T, BNP, CBC, CK, HS TROP, BMP, PTT #### [facility] [address] Glucose [Mass/volume] in Ser um or PlasmaOrdered By: Akhil Olivarez on 12-14-2022 Glucose [Mass/Vol] 86 mg/dL Normal 70-100 [facility] Comment on above: ADA recommended refe rence rangeRandom Glucose Reference Range is dependent on time and content of last meal. Glucose of more than 200 mg/dL in a nonstressed, ambulatory subject supports the diagnosis of Diabetes Mellitus. Order Comment: PT IS FASTING Result Comment: Olga om Glucose Reference Range is dependent on time and content of last meal. Glucose of more than 200 mg/dL in a nonstressed, ambulatory subject supports the diagnosis of Diabetes Mellitus. ADA recommended reference range Performed By: #### P T, BNP, CBC, CK, HS TROP, BMP, PTT #### [facility] [address] No Panel InformationOrdered By: Akhil Olivarez on 12-14-2022 Estimated GFR (CKD-EPI) 42.268 mL/Min [facility] Creatinine Clearance (Chem N/A [facility] No Panel Informationon 12-14 6.72\S\6.72 above high threshold 0.45-5.33 [facility] HeartTibersoftGamaliel ayde 250 DO Work Phone: Comment on above: PERFORMED BY:[place] [address] [address] ARCHIBALDRadhaRICHARD [place] [id number] MEDICAL DIRECTORGIULIA VALERIO M.D. 19\S\19 Normal 13-39 [facility] Timothy messer 250 DO Work Phone: 42.268\S\42.268 Normal [facility] Timothy messer 250 DO Work Phone: 10.6\S\10.6 Normal 6.0-15.0 [facility] Timothy messer 250 DO Work Phone: 27\S\27 above high threshold 7-25 [facility] Timothy messer 250 DO Work Phone: 86\S\86 Normal 70-100 [facility] Timothy messer 250 DO Work Phone: Comment on above: Random Glucose Refer ence Range is dependent on time and content of last meal. Glucose of more than 200 mg/dL in a nonstressed, ambulatory subject supports the diagnosis of Diabetes Mellitus. ADA recommended reference range 30.6\S\30.6 Normal 21.0-31.0 [facility] Timothy messer 250 DO Work Phone: 104\S\104 Normal 98-107 [facility] Timothy messer 250 DO Work Phone: 4.2\S\4.2 Normal 3.5-5.1 [facility] VictorinoTibersoftGamaliel ayde 250 DO Work Phone: 141\S\141 Normal 136-145 [facility] Timothy ayde 250 DO Work Phone: 1.23\S\1.23 above high threshold 0.60-1.20 [facility] Via optronicsGamaliel ayde 250 DO Work Phone: 9.6\S\9.6 Normal 8.6-10.3 -[facility] 250 DO Work Phone: Potassium [Moles/volume] in Serum or PlasmaOrdered By: Akhil Olivarez on 12-14-2022 Potassium [Moles/Vol] 4.2 mmol/L Normal 3.5-5.1 [facility] Comment on above: Order Comment: PT IS FASTING Performed By: #### P T, BNP, CBC, CK, HS TROP, BMP, PTT #### [facility] [address] [place] [id number] [facility] Radiologyon 12-14-2022 XR Chest 2 Views Normal [facility] 250 DO Work Phone: Serum or plasma anion gap de terminationOrdered By: Akhil Olivarez on 12-14-2022 Anion gap [Moles/Vol] 10.6 mmol/L Normal 6.0-15.0 [facility] Comment on above: Order Comment: PT IS FASTING Performed By: #### P T, BNP, CBC, CK, HS TROP, BMP, PTT #### [facility] [address] [place] [address] Sodium [Moles/volume] in Ser um or PlasmaOrdered By: Akhil Olivarez on 12-14-2022 Sodium [Moles/Vol] 141 mmol/L Normal 136-145 [facility] Comment on above: Order Comment: PT IS FASTING Performed By: #### P T, BNP, CBC, CK, HS TROP, BMP, PTT #### [facility] [address] Thyrotropin [Units/volume] i n Serum or PlasmaOrdered By: Akhil Olivarez on 12-14-2022 TSH Qn 6.72 m[IU]/L High 0.45-5.33 [facility] Comment on above: Order Comment: PT IS FASTING Result Comment: PERF ORMED BY: [place] [address] PATHOLOGIST PACU NURSE GIULIA VALERIO M.D. Performed By: #### P T, BNP, CBC, CK, HS TROP, BMP, PTT #### [facility] [address] [place] [id number] [facility] Urea nitrogen [Mass/volume] in Serum or PlasmaOrdered By: Akhil Olivarez on 12-14-2022 Urea nitrogen [Mass/Vol] 27 mg/dL High 10-31 [facility] Comment on above: Order Comment: PT IS FASTING Performed By: #### P T, BNP, CBC, CK, HS TROP, BMP, PTT #### [facility] [address] [place] [id number] [facility] XR chest 2V*on 12-14-2022 XR chest 2V* [facility] [place] [address] [place] [address] XRay Report Signed Patient: Erin Canales MR#: [id number] : 1935 Acct:[id number] Age/Sex: 87 / F ADM Date: 12/14/22 Loc: Room: Type: [facility] Attending Dr: Akhil Olivarez MD Copies [...] Estrada Jr., D.ORadha12/14/2022 11:55 AM Dictation Location: [place] [address] Transcribed By: [facility] 12/14/22 1155 Dictated By: Aristides Estrada Jr, DO 12/14/22 1154 Signed By: 12/14/22 1155 Normal [facility] CNOVon 12-13-2022 CNOV Office Visit (PLASMN ) -- ERIN CANALES ([id number]) 1935 F Date Time Provider Department 12/13/22 [...] old female who presents with left sided [place] Palsy with significant facial/eye drooping. This developed [...] Allergies: ALLERGIES Allergen Reactions Motrin [Ibuprofen] Unknown Fidqpsi-Upc-Asd Red* Other: See Comments Cannot walk when [...] Past Histories independently gathered by the clinical sales support associate and the remaining scribed note accurately describes [...] Reaction MOTRIN (IBUPROFEN) 10/29/2012 16 - Unknown [id number]-QLW-DVV REDUCTASE INHIBIT*08/25/2022 14 - Other: See Comments Comments: Cannot walk when she takes it Date Reviewed: 12/13/2022 Reviewed by: Amanda Chamberlain PCNA - Fully Assessed Reason for Visit: Follow Up [171] Primary Visit Di (more content not included)... Normal [facility] Automated basophil %Ordered By: Danilo Drummond on 11-24-2022 Basophils/100 WBC (Bld) 1.1 % Normal . [facility] Comment on above: Performed By: #### P T #### [address] Automated basophil countOrde red By: Danilo Drummond on 11-24-2022 Basophils (Bld) [#/Vol] 0.1 10*3/uL Normal 0.0-0.2 [facility] Comment on above: Result Comment: PERF ORMED BY: [place] [address] PATHOLOGIST PACU NURSE GIULIA VALERIO M.D. Performed By: #### P T #### [facility] [address] [place] [address] Automated blood monocyte cou ntOrdered By: Danilo Drummond on 11-24-2022 Monocytes (Bld) [#/Vol] 0.5 10*3/uL Normal 0.0-0.8 [facility] Comment on above: Performed By: #### P T #### [facility] [address] [place] [address] Automated eosinophil %Ordere d By: Danilo Drummond on 11-24-2022 Eosinophils/100 WBC (Bld) 1.7 % Normal . [facility] Comment on above: Performed By: #### P T #### [facility] [address] [place] [address] Automated eosinophil countOr dered By: Danilo Drummond on 11-24-2022 Eosinophils (Bld) [#/Vol] 0.1 10*3/uL Normal 0.0-0.45 [facility] Comment on above: Performed By: #### P T #### [address] Automated monocyte %Ordered By: Danilo Drummond on 11-24-2022 Monocytes/100 WBC (Bld) 8.8 % Normal . [facility] Comment on above: Performed By: #### P T #### [address] Automated neutrophil %Ordere d By: Danilo Drummond on 11-24-2022 Neutrophils/100 WBC (Bld) 68.1 % Normal . [facility] Comment on above: Performed By: #### P T #### [address] Complete Blood Count Auto Di ffon 11-24-2022 Mean Corpuscular HGB Conc 33.1 g/dL Normal 32.0-35.0 [facility] Comment on above: Performed By: #### P T #### [address] NRBC% 0.1 /100{WBC} Normal 0-0.5 [facility] Comment on above: Performed By: #### P T #### [address] Erythrocyte distribution wid th [Ratio] by Automated countOrdered By: Danilo Drummond on 11-24-2022 Erythrocyte distribution width (RBC) [Ratio] 14.5 % Normal 11.9-15.3 [facility] Comment on above: Performed By: #### P T #### [address] Erythrocytes [#/volume] in B lood by Automated countOrdered By: Danilo Drummond on 11-24-2022 RBC (Bld) [#/Vol] 3.59 10*6/uL Low 3.60-5.00 [facility] Comment on above: Performed By: #### P T #### [address] Hematocrit [Volume Fraction] of Blood by Automated countOrdered By: Danilo Drummond on 11-24-2022 Hematocrit (Bld) [Volume fraction] 34.5 % Normal 34.0-46.4 [facility] Comment on above: Performed By: #### P T #### [address] Hemoglobin [Mass/volume] in BloodOrdered By: Danilo Drummond on 11-24-2022 Hemoglobin (Bld) [Mass/Vol] 11.4 g/dL Low 11.8-15.4 [facility] Comment on above: Performed By: #### P T #### [address] INR in Platelet poor plasma by Coagulation assayOrdered By: Jamie Hathaway on 11-24-2022 INR Coag (PPP) [Relative time] 1.2 {INR} Normal [facility] Comment on above: INR Therapeutic Rang [...] with mechanical heart valves: 3 - 4.5 Result Comment: INR Therapeutic Range A) Pre- [...] heart valves: 3 - 4.5 PERFORMED BY: [place] [address] PATHOLOGIST PACU NURSE GIULIA VALERIO M.D. Performed By: #### P T, BNP, CBC, CK, HS TROP, BMP, PTT #### [address] [address] [place] Leukocytes [#/volume] correc basim for nucleated erythrocytes in Blood by Automated counOrdered By: Danilo Drummond on 11-24-2022 WBC corrected for nucl RBC Auto (Bld) [#/Vol] 5.8 10*3/uL 3.8-11.6 [facility] Leukocytes [#/volume] in Blo od by Automated countOrdered By: Danilo Drummond on 11-24-2022 WBC (Bld) [#/Vol] 5.8 10*3/uL Normal 3.8-11.6 [facility] Comment on above: Performed By: #### P T #### [facility] [address] [place] [address] Lymphocytes [#/volume] in Bl ood by Automated countOrdered By: Danilo Drummond on 11-24-2022 Lymphocytes (Bld) [#/Vol] 1.2 10*3/uL Normal 1.00-4.8 [facility] Comment on above: Performed By: #### P T #### [facility] [address] [place] [address] Lymphocytes/100 leukocytes i n Blood by Automated countOrdered By: Danilo Drummond on 11-24-2022 Lymphocytes/100 WBC (Bld) 20.3 % Normal . [facility] Comment on above: Performed By: #### P T #### [facility] [address] [place] [address] MCH [Entitic mass] by Automa basim countOrdered By: Danilo Drummond on 11-24-2022 MCH (RBC) [Entitic mass] 31.9 pg Normal 24.7-34.3 [facility] Comment on above: Performed By: #### P T #### [facility] [address] [place] [address] MCHC Auto (RBC) [Mass/Vol]Or dered By: Danilo Drummond on 11-24-2022 MCHC (RBC) [Mass/Vol] 33.1 g/dL 32.0-35.0 [facility] MCV [Entitic volume] by Auto mated countOrdered By: Danilo Drummond on 11-24-2022 MCV (RBC) [Entitic vol] 96.2 fL Normal 80-100 [facility] Comment on above: Performed By: #### P T #### [address] Neutrophils [#/volume] in Bl ood by Automated countOrdered By: Danilo Drummond on 11-24-2022 Neutrophils (Bld) [#/Vol] 4.0 10*3/uL Normal 1.8-7.7 [facility] Comment on above: Performed By: #### P T #### [address] Nucleated erythrocytes [Pres ence] in Blood by Automated countOrdered By: Danilo Drummond on 11-24-2022 Nucleated RBC Auto Ql (Bld) 0.1 /100{WBC} 0-0.5 [facility] Platelet mean volume [Entiti c volume] in Blood by Automated countOrdered By: Danilo Drummond on 11-24-2022 Platelet mean volume (Bld) [Entitic vol] 7.6 fL Normal 6.3-10.7 [facility] Comment on above: Performed By: #### P T #### [address] Platelets [#/volume] in Bloo d by Automated countOrdered By: Danilo Drummond on 11-24-2022 Platelets (Bld) [#/Vol] 164 10*3/uL Normal 150-450 [facility] Comment on above: Performed By: #### P T #### [address] Prothrombin Time INROrdered By: Jamie Hathaway on 11-24-2022 PT Coag (PPP) [Time] 14.0 s High 9.0-12.9 [facility] Comment on above: Performed By: #### P T, BNP, CBC, CK, HS TROP, BMP, PTT #### [address] Basic Metabolic Panelon 11-07 Creatinine Clr Calc Pharmacy 39.79 Normal [facility] Comment on above: Result Comment: PERF ORMED BY: [place] [address] PATHOLOGIST PACU NURSE GIULIA VALERIO M.D. Performed By: #### P T, BNP, CBC, CK, HS TROP, BMP, PTT #### [address] GFR/1.73 sq M.predicted MDRD (S/P/Bld) [Vol rate/Area] 53.544 mL/min/{1.73_m2} Normal [facility] Comment on above: Performed By: #### P T, BNP, CBC, CK, HS TROP, BMP, PTT #### [address] Calcium [Mass/volume] in Ser um or PlasmaOrdered By: Danilo Drummond on 11-23-2022 Calcium [Mass/Vol] 8.2 mg/dL Low 8.6-10.3 [facility] Comment on above: Performed By: #### P T, BNP, CBC, CK, HS TROP, BMP, PTT #### [address] Carbon dioxide, total [Moles /volume] in Serum or PlasmaOrdered By: Danilo Drummond on 11-23-2022 CO2 [Moles/Vol] 26.3 mmol/L Normal 21.0-31.0 [facility] Comment on above: Performed By: #### P T, BNP, CBC, CK, HS TROP, BMP, PTT #### [place] [address] [place] Chloride [Moles/volume] in S payal or PlasmaOrdered By: Danilo Drummond on 11-23-2022 Chloride [Moles/Vol] 103 mmol/L Normal 98-107 [facility] Comment on above: Performed By: #### P T, BNP, CBC, CK, HS TROP, BMP, PTT #### [place] [address] [place] Creatinine [Mass/volume] in Serum or PlasmaOrdered By: Danilo Drummond on 11-23-2022 Creatinine [Mass/Vol] 1.01 mg/dL Normal 0.60-1.20 [facility] Comment on above: Performed By: #### P T, BNP, CBC, CK, HS TROP, BMP, PTT #### [facility] [address] [id number] [place] Glucose [Mass/volume] in Ser um or PlasmaOrdered By: Danilo Drummond on 11-23-2022 Glucose [Mass/Vol] 101 mg/dL High 70-100 [facility] Comment on above: ADA recommended refe rence rangeRandom Glucose Reference Range is dependent on time and content of last meal. Glucose of more than 200 mg/dL in a nonstressed, ambulatory subject supports the diagnosis of Diabetes Mellitus. Result Comment: [facility] om Glucose Reference Range is dependent on time and content of last meal. Glucose of more than 200 mg/dL in a nonstressed, ambulatory subject supports the diagnosis of Diabetes Mellitus. ADA recommended reference range Performed By: #### P T, BNP, CBC, CK, HS TROP, BMP, PTT #### [facility] [address] [id number] [facility] No Panel InformationOrdered By: Danilo Drummond on 11-23-2022 Estimated GFR (CKD-EPI) 53.544 mL/Min [facility] Creatinine Clearance (Chem 39.79 [facility] Potassium [Moles/volume] in Serum or PlasmaOrdered By: Danilo Drummond on 11-23-2022 Potassium [Moles/Vol] 4.4 mmol/L Normal 3.5-5.1 [facility] Comment on above: Performed By: #### P T, BNP, CBC, CK, HS TROP, BMP, PTT #### [facility] [address] [id number] [place] Prothrombin Time INRon 11-23 INR Coag (PPP) [Relative time] 1.2 {INR} Normal [facility] Comment on above: Result Comment: [...] heart valves: 3 - 4.5 PERFORMED BY: [place] [address] PATHOLOGIST PACU NURSE GIULIA VALERIO M.D. Performed By: #### P T, BNP, CBC, CK, HS TROP, BMP, PTT #### [address] PT Coag (PPP) [Time] 13.8 s High 9.0-12.9 [facility] Comment on above: Performed By: #### P T, BNP, CBC, CK, HS TROP, BMP, PTT #### [address] Serum or plasma anion gap de terminationOrdered By: Danilo Drummond on 11-23-2022 Anion gap [Moles/Vol] 10.1 mmol/L Normal 6.0-15.0 [facility] Comment on above: Performed By: #### P T, BNP, CBC, CK, HS TROP, BMP, PTT #### [address] Sodium [Moles/volume] in Ser um or PlasmaOrdered By: Danilo Drummond on 11-23-2022 Sodium [Moles/Vol] 135 mmol/L Low 136-145 [facility] Comment on above: Performed By: #### P T, BNP, CBC, CK, HS TROP, BMP, PTT #### [address] Urea nitrogen [Mass/volume] in Serum or PlasmaOrdered By: Danilo Drummond on 11-23-2022 Urea nitrogen [Mass/Vol] 25 mg/dL Normal 7-25 [facility] Comment on above: Performed By: #### P T, BNP, CBC, CK, HS TROP, BMP, PTT #### [address] XR chest 2V*on 11-23-2022 XR chest 2V* [facility] [place] [address] [place] [address] XRay Report Signed Patient: Erin Canales MR#: [id number] : 1935 Acct:[id number] Age/Sex: 87 / F ADM Date: 11/19/22 Loc: Room: [address] [place] [address] Type: ADM IN Attending Dr: Danilo Drummond [...] Christine Aguila M.D.11/23/2022 7:23 AM Dictation Location: [place] [address] Transcribed By: [facility] 11/23/22 0723 Dictated By: Christine Aguila MD 11/23/22 0721 Signed By: 11/23/22 0723 Normal [facility] Activated partial thrombopla stin time (aPTT) in platelet poor plasma by coagulation aOrdered By: Akhil Olivarez on 11-22-2022 aPTT Coag (PPP) [Time] 32.5 s 25.1-36.5 [facility] Basic Metabolic Panelon 11-07 Anion gap [Moles/Vol] 10.9 mmol/L Normal 6.0-15.0 [facility] Comment on above: Performed By: #### P T, BNP, CBC, CK, HS TROP, BMP, PTT #### [address] Calcium [Mass/Vol] 8.3 mg/dL Low 8.6-10.3 [facility] Comment on above: Performed By: #### P T, BNP, CBC, CK, HS TROP, BMP, PTT #### [address] Chloride [Moles/Vol] 101 mmol/L Normal 98-107 [facility] Comment on above: Performed By: #### P T, BNP, CBC, CK, HS TROP, BMP, PTT #### [address] CO2 [Moles/Vol] 24.4 mmol/L Normal 21.0-31.0 [facility] Comment on above: Performed By: #### P T, BNP, CBC, CK, HS TROP, BMP, PTT #### [address] Creatinine [Mass/Vol] 1.25 mg/dL High 0.60-1.20 [facility] Comment on above: Performed By: #### P T, BNP, CBC, CK, HS TROP, BMP, PTT #### [address] Creatinine Clr Calc Pharmacy 32.56 Normal [facility] Comment on above: Result Comment: PERF ORMED BY: [place] [address] PATHOLOGIST PACU NURSE GIULIA VALERIO M.D. Performed By: #### P T, BNP, CBC, CK, HS TROP, BMP, PTT #### [address] GFR/1.73 sq M.predicted MDRD (S/P/Bld) [Vol rate/Area] 41.457 mL/min/{1.73_m2} Normal [facility] Comment on above: Performed By: #### P T, BNP, CBC, CK, HS TROP, BMP, PTT #### [address] Glucose [Mass/Vol] 106 mg/dL High 70-100 [facility] Comment on above: Result Comment: [facility] Glucose Reference Range is dependent on time and content of last meal. Glucose of more than 200 mg/dL in a nonstressed, ambulatory subject supports the diagnosis of Diabetes Mellitus. ADA recommended reference range Performed By: #### P T, BNP, CBC, CK, HS TROP, BMP, PTT #### [address] Potassium [Moles/Vol] 4.3 mmol/L Normal 3.5-5.1 [facility] Comment on above: Performed By: #### P T, BNP, CBC, CK, HS TROP, BMP, PTT #### [address] Sodium [Moles/Vol] 132 mmol/L Low 136-145 [facility] Comment on above: Performed By: #### P T, BNP, CBC, CK, HS TROP, BMP, PTT #### [address] Urea nitrogen [Mass/Vol] 27 mg/dL High 7-25 [facility] Comment on above: Performed By: #### P T, BNP, CBC, CK, HS TROP, BMP, PTT #### [address] Complete Blood Count Auto Di ffon 11-22-2022 Basophils (Bld) [#/Vol] 0.0 10*3/uL Normal 0.0-0.2 [facility] Comment on above: Result Comment: PERF ORMED BY: [place] [address] PATHOLOGIST PACU NURSE GIULIA VALERIO M.D. Performed By: #### P T, BNP, CBC, CK, HS TROP, BMP, PTT #### [place] [address] [place] Basophils/100 WBC (Bld) 0.8 % Normal . [facility] Comment on above: Performed By: #### P T, BNP, CBC, CK, HS TROP, BMP, PTT #### [address] Eosinophils (Bld) [#/Vol] 0.1 10*3/uL Normal 0.0-0.45 [facility] Comment on above: Performed By: #### P T, BNP, CBC, CK, HS TROP, BMP, PTT #### [address] Eosinophils/100 WBC (Bld) 2.0 % Normal . [facility] Comment on above: Performed By: #### P T, BNP, CBC, CK, HS TROP, BMP, PTT #### [address] Erythrocyte distribution width (RBC) [Ratio] 14.7 % Normal 11.9-15.3 [facility] Comment on above: Performed By: #### P T, BNP, CBC, CK, HS TROP, BMP, PTT #### [address] Hematocrit (Bld) [Volume fraction] 40.3 % Normal 34.0-46.4 [facility] Comment on above: Performed By: #### P T, BNP, CBC, CK, HS TROP, BMP, PTT #### [address] Hemoglobin (Bld) [Mass/Vol] 13.3 g/dL Normal 11.8-15.4 [facility] Comment on above: Performed By: #### P T, BNP, CBC, CK, HS TROP, BMP, PTT #### [address] Lymphocytes (Bld) [#/Vol] 1.0 10*3/uL Normal 1.00-4.8 [facility] Comment on above: Performed By: #### P T, BNP, CBC, CK, HS TROP, BMP, PTT #### [address] Lymphocytes/100 WBC (Bld) 17.8 % Normal . [facility] Comment on above: Performed By: #### P T, BNP, CBC, CK, HS TROP, BMP, PTT #### [address] MCH (RBC) [Entitic mass] 31.7 pg Normal 24.7-34.3 [facility] Comment on above: Performed By: #### P T, BNP, CBC, CK, HS TROP, BMP, PTT #### [address] MCV (RBC) [Entitic vol] 96.0 fL Normal 80-100 [facility] Comment on above: Performed By: #### P T, BNP, CBC, CK, HS TROP, BMP, PTT #### [address] Mean Corpuscular HGB Conc 33.0 g/dL Normal 32.0-35.0 [facility] Comment on above: Performed By: #### P T, BNP, CBC, CK, HS TROP, BMP, PTT #### [address] Monocytes (Bld) [#/Vol] 0.5 10*3/uL Normal 0.0-0.8 [facility] Comment on above: Performed By: #### P T, BNP, CBC, CK, HS TROP, BMP, PTT #### [address] Monocytes/100 WBC (Bld) 9.6 % Normal . [facility] Comment on above: Performed By: #### P T, BNP, CBC, CK, HS TROP, BMP, PTT #### [address] Neutrophils (Bld) [#/Vol] 3.9 10*3/uL Normal 1.8-7.7 [facility] Comment on above: Performed By: #### P T, BNP, CBC, CK, HS TROP, BMP, PTT #### [address] Neutrophils/100 WBC (Bld) 69.8 % Normal . [facility] Comment on above: Performed By: #### P T, BNP, CBC, CK, HS TROP, BMP, PTT #### [address] NRBC% 0.1 /100{WBC} Normal 0-0.5 [facility] Comment on above: Performed By: #### P T, BNP, CBC, CK, HS TROP, BMP, PTT #### [address] Platelet mean volume (Bld) [Entitic vol] 7.5 fL Normal 6.3-10.7 [facility] Comment on above: Performed By: #### P T, BNP, CBC, CK, HS TROP, BMP, PTT #### [address] Platelets (Bld) [#/Vol] 172 10*3/uL Normal 150-450 [facility] Comment on above: Performed By: #### P T, BNP, CBC, CK, HS TROP, BMP, PTT #### [address] RBC (Bld) [#/Vol] 4.20 10*6/uL Normal 3.60-5.00 [facility] Comment on above: Performed By: #### P T, BNP, CBC, CK, HS TROP, BMP, PTT #### [address] WBC (Bld) [#/Vol] 5.5 10*3/uL Normal 3.8-11.6 [facility] Comment on above: Performed By: #### P T, BNP, CBC, CK, HS TROP, BMP, PTT #### [address] ECG 12 lead ECGon 11-22-2022 ECG 12 lead ECG [facility] [place] [address] [place] [address] Electrocardiograph Report Signed Patient: Erin Canales MR#: [id number] : 1935 Acct:[id number] Age/Sex: 87 / F ADM Date: 11/19/22 Loc: Room: [address] [place] [address] Type: ADM IN Attending Dr: Danilo Drummond [...] By Stephanie Arteaga MD 1107 Normal [facility] Partial Thromboplastin Timeo n 11-22-2022 aPTT Coag (Bld) [Time] 32.5 s Normal 25.1-36.5 [facility] Comment on above: Result Comment: PERF ORMED BY: [place] [address] PATHOLOGIST PACU NURSE GIULIA VALERIO M.D. Performed By: #### P T, BNP, CBC, CK, HS TROP, BMP, PTT #### [facility] [address] [place] [address] Prothrombin Time INRon 11-22 INR Coag (PPP) [Relative time] 1.2 {INR} Normal [facility] Comment on above: Result Comment: [...] 4.5 Performed By: #### P T, BNP, CBC, CK, HS TROP, BMP, PTT #### [address] PT Coag (PPP) [Time] 13.7 s High 9.0-12.9 [facility] Comment on above: Performed By: #### P T, BNP, CBC, CK, HS TROP, BMP, PTT #### [facility] [address] [place], [place] [id number] [facility] XR chest 1V portableon 11-22 XR chest 1V portable [facility] Main [place] [address] [place] [address] XRay Report Signed Patient: Erin Canales MR#: [id number] : 1935 Acct:[id number] Age/Sex: 87 / F ADM Date: 11/19/22 Loc: Room: [address] [place] [address] Type: ADM IN Attending Dr: Danilo Drummond [...] Christine Aguila M.D.11/22/2022 12:08 PM Dictation Location: [place] [address] Transcribed By: [facility] 11/22/22 1208 Dictated By: Christine Aguila MD 11/22/22 1203 Signed By: 11/22/22 1208 Normal [facility] Potassiumon 11-21-2022 Potassium [Moles/Vol] 4.3 mmol/L Normal 3.5-5.1 [facility] Comment on above: Order Comment: Comme nt ok to add to prev drawn blood Result Comment: PERF ORMED BY: [place] [address] PATHOLOGIST PACU NURSE GIULIA VALERIO M.D. Performed By: #### P T #### [address] Prothrombin Time INRon 11-21 INR Coag (PPP) [Relative time] 1.5 {INR} Normal [facility] Comment on above: Result Comment: [...] heart valves: 3 - 4.5 PERFORMED BY: [place] [address] PATHOLOGIST PACU NURSE GIULIA VALERIO M.D. Performed By: #### P T #### [address] PT Coag (PPP) [Time] 17.7 s Significant change up 9.0-12.9 [facility] Comment on above: Performed By: #### P T #### [address] Basic Metabolic Panelon 11-07 Anion gap [Moles/Vol] 11.9 mmol/L Normal 6.0-15.0 [facility] Comment on above: Performed By: #### P T, BNP, CBC, CK, HS TROP, BMP, PTT #### [address] Calcium [Mass/Vol] 8.4 mg/dL Low 8.6-10.3 [facility] Comment on above: Performed By: #### P T, BNP, CBC, CK, HS TROP, BMP, PTT #### [address] Chloride [Moles/Vol] 99 mmol/L Normal 98-107 [facility] Comment on above: Performed By: #### P T, BNP, CBC, CK, HS TROP, BMP, PTT #### [address] CO2 [Moles/Vol] 23.3 mmol/L Normal 21.0-31.0 [facility] Comment on above: Performed By: #### P T, BNP, CBC, CK, HS TROP, BMP, PTT #### [address] Creatinine [Mass/Vol] 1.06 mg/dL Normal 0.60-1.20 [facility] Comment on above: Performed By: #### P T, BNP, CBC, CK, HS TROP, BMP, PTT #### [address] Creatinine Clr Calc Pharmacy 38.40 Normal [facility] Comment on above: Result Comment: PERF ORMED BY: [place] [address] PATHOLOGIST PACU NURSE GIULIA VALERIO M.D. Performed By: #### P T, BNP, CBC, CK, HS TROP, BMP, PTT #### [address] GFR/1.73 sq M.predicted MDRD (S/P/Bld) [Vol rate/Area] 50.528 mL/min/{1.73_m2} Normal [facility] Comment on above: Performed By: #### P T, BNP, CBC, CK, HS TROP, BMP, PTT #### [address] Glucose [Mass/Vol] 105 mg/dL High 70-100 [facility] Comment on above: Result Comment: [facility] Glucose Reference Range is dependent on time and content of last meal. Glucose of more than 200 mg/dL in a nonstressed, ambulatory subject supports the diagnosis of Diabetes Mellitus. ADA recommended reference range Performed By: #### P T, BNP, CBC, CK, HS TROP, BMP, PTT #### [address] Potassium [Moles/Vol] 4.2 mmol/L Normal 3.5-5.1 [facility] Comment on above: Performed By: #### P T, BNP, CBC, CK, HS TROP, BMP, PTT #### [address] Sodium [Moles/Vol] 130 mmol/L Low 136-145 [facility] Comment on above: Performed By: #### P T, BNP, CBC, CK, HS TROP, BMP, PTT #### [address] Urea nitrogen [Mass/Vol] 19 mg/dL Normal 7-25 [facility] Comment on above: Performed By: #### P T, BNP, CBC, CK, HS TROP, BMP, PTT #### [address] Complete Blood Count Auto Di ffon 11-20-2022 Basophils (Bld) [#/Vol] 0.0 10*3/uL Normal 0.0-0.2 [facility] Comment on above: Result Comment: PERF ORMED BY: [place] [address] PATHOLOGIST PACU NURSE GIULIA VALERIO M.D. Performed By: #### P T, BNP, CBC, CK, HS TROP, BMP, PTT #### [address] Basophils/100 WBC (Bld) 0.9 % Normal . [facility] Comment on above: Performed By: #### P T, BNP, CBC, CK, HS TROP, BMP, PTT #### [address] Eosinophils (Bld) [#/Vol] 0.1 10*3/uL Normal 0.0-0.45 [facility] Comment on above: Performed By: #### P T, BNP, CBC, CK, HS TROP, BMP, PTT #### [address] Eosinophils/100 WBC (Bld) 2.0 % Normal . [facility] Comment on above: Performed By: #### P T, BNP, CBC, CK, HS TROP, BMP, PTT #### [address] Erythrocyte distribution width (RBC) [Ratio] 14.6 % Normal 11.9-15.3 [facility] Comment on above: Performed By: #### P T, BNP, CBC, CK, HS TROP, BMP, PTT #### [address] Hematocrit (Bld) [Volume fraction] 39.3 % Normal 34.0-46.4 [facility] Comment on above: Performed By: #### P T, BNP, CBC, CK, HS TROP, BMP, PTT #### [address] Hemoglobin (Bld) [Mass/Vol] 13.1 g/dL Normal 11.8-15.4 [facility] Comment on above: Performed By: #### P T, BNP, CBC, CK, HS TROP, BMP, PTT #### [address] Lymphocytes (Bld) [#/Vol] 1.2 10*3/uL Normal 1.00-4.8 [facility] Comment on above: Performed By: #### P T, BNP, CBC, CK, HS TROP, BMP, PTT #### [address] Lymphocytes/100 WBC (Bld) 21.8 % Normal . [facility] Comment on above: Performed By: #### P T, BNP, CBC, CK, HS TROP, BMP, PTT #### [address] MCH (RBC) [Entitic mass] 32.0 pg Normal 24.7-34.3 [facility] Comment on above: Performed By: #### P T, BNP, CBC, CK, HS TROP, BMP, PTT #### [address] MCV (RBC) [Entitic vol] 96.1 fL Normal 80-100 [facility] Comment on above: Performed By: #### P T, BNP, CBC, CK, HS TROP, BMP, PTT #### [address] Mean Corpuscular HGB Conc 33.4 g/dL Normal 32.0-35.0 [facility] Comment on above: Performed By: #### P T, BNP, CBC, CK, HS TROP, BMP, PTT #### [address] Monocytes (Bld) [#/Vol] 0.5 10*3/uL Normal 0.0-0.8 [facility] Comment on above: Performed By: #### P T, BNP, CBC, CK, HS TROP, BMP, PTT #### [address] Monocytes/100 WBC (Bld) 9.8 % Normal . [facility] Comment on above: Performed By: #### P T, BNP, CBC, CK, HS TROP, BMP, PTT #### [address] Neutrophils (Bld) [#/Vol] 3.5 10*3/uL Normal 1.8-7.7 [facility] Comment on above: Performed By: #### P T, BNP, CBC, CK, HS TROP, BMP, PTT #### [address] Neutrophils/100 WBC (Bld) 65.5 % Normal . [facility] Comment on above: Performed By: #### P T, BNP, CBC, CK, HS TROP, BMP, PTT #### [place] [address] [place] NRBC% 0.1 /100{WBC} Normal 0-0.5 [facility] Comment on above: Performed By: #### P T, BNP, CBC, CK, HS TROP, BMP, PTT #### [address] Platelet mean volume (Bld) [Entitic vol] 7.6 fL Normal 6.3-10.7 [facility] Comment on above: Performed By: #### P T, BNP, CBC, CK, HS TROP, BMP, PTT #### [address] Platelets (Bld) [#/Vol] 167 10*3/uL Normal 150-450 [facility] Comment on above: Performed By: #### P T, BNP, CBC, CK, HS TROP, BMP, PTT #### [address] RBC (Bld) [#/Vol] 4.09 10*6/uL Normal 3.60-5.00 [facility] Comment on above: Performed By: #### P T, BNP, CBC, CK, HS TROP, BMP, PTT #### [address] WBC (Bld) [#/Vol] 5.3 10*3/uL Normal 3.8-11.6 [facility] Comment on above: Performed By: #### P T, BNP, CBC, CK, HS TROP, BMP, PTT #### [address] Prothrombin Time INRon 11-20 INR Coag (PPP) [Relative time] 3.4 {INR} Normal [facility] Comment on above: Result Comment: [...] heart valves: 3 - 4.5 PERFORMED BY: [place] [address] PATHOLOGIST PACU NURSE GIULIA VALERIO M.D. Performed By: #### P T #### [address] PT Coag (PPP) [Time] 38.7 s High 9.0-12.9 [facility] Comment on above: Performed By: #### P T #### [address] Thyroxine (T4) free [Mass/vo lume] in Serum or PlasmaOrdered By: Danilo Drummond on 11-20-2022 Free T4 [Mass/Vol] 0.68 ng/dL Normal 0.61-1.12 [facility] Comment on above: Order Comment: Comme nt Add to an already drawn sample Result Comment: PERF ORMED BY: [place] [address] PATHOLOGIST PACU NURSE GIULIA VALEROI M.D. Performed By: #### P T, BNP, CBC, CK, HS TROP, BMP, PTT #### [address] US venous duplex LE BIon US venous duplex LE BI [facility] Main [place] [address] [place] [address] Ultrasound Report Signed Patient: Erin Canales MR#: [id number] : 1935 Acct:[id number] Age/Sex: 87 / F ADM Date: 11/19/22 Loc: Room: [address] [place] [address] Type: ADM IN Attending Dr: Danilo Drummond [...] Jag Calles M.D.11/20/2022 2:07 PM Dictation Location: [place] [address] Tech: Nina Vivar Transcribed By: ANNA 11/20/221406 Dictated By: Jag Calles MD 11/20/221405 Signed By: 11/20/22 140 Normal [facility] Basic Metabolic Panelon 11-07 Anion gap [Moles/Vol] 9.3 mmol/L Normal 6.0-15.0 [facility] Comment on above: Performed By: #### P T #### [address] Calcium [Mass/Vol] 8.5 mg/dL Low 8.6-10.3 [facility] Comment on above: Performed By: #### P T #### [address] Chloride [Moles/Vol] 97 mmol/L Low 98-107 [facility] Comment on above: Performed By: #### P T #### [address] CO2 [Moles/Vol] 27.7 mmol/L Normal 21.0-31.0 [facility] Comment on above: Performed By: #### P T #### [address] Creatinine [Mass/Vol] 0.94 mg/dL Normal 0.60-1.20 [facility] Comment on above: Performed By: #### P T #### [address] Creatinine Clr Calc Pharmacy 43.30 Normal [facility] Comment on above: Result Comment: PERF ORMED BY: [place] [address] PATHOLOGIST PACU NURSE GIULIA VALERIO M.D. Performed By: #### P T #### [facility] [address] [id number] [place] GFR/1.73 sq M.predicted MDRD (S/P/Bld) [Vol rate/Area] 58.364 mL/min/{1.73_m2} Normal [facility] Comment on above: Performed By: #### P T #### [facility] [address] Glucose [Mass/Vol] 105 mg/dL High 70-100 [facility] Comment on above: Result Comment: [facility] Glucose Reference Range is dependent on time and content of last meal. Glucose of more than 200 mg/dL in a nonstressed, ambulatory subject supports the diagnosis of Diabetes Mellitus. ADA recommended reference range Performed By: #### P T #### [facility] [address] Potassium [Moles/Vol] 4.0 mmol/L Normal 3.5-5.1 [facility] Comment on above: Performed By: #### P T #### [facility] [address] [id number] [place] Sodium [Moles/Vol] 130 mmol/L Low 136-145 [facility] Comment on above: Performed By: #### P T #### [place] [id number] [facility] Urea nitrogen [Mass/Vol] 18 mg/dL Normal 7-25 [facility] Comment on above: Performed By: #### P T #### [place] [id number] [place] ECG 12 lead ECGon 11-19-2022 ECG 12 lead ECG [facility] Main [place] [address] [place] [address] Electrocardiograph Report Signed Patient: Erin Canales MR#: [id number] : 1935 Acct:[id number] Age/Sex: 87 / F ADM Date: 11/17/22 Loc: Room: [address] [place] [address] Type: ADM INOo Attending Dr: Ailyn Meng [...] Anterior infarct present Confirmed by CHAPIS LUNA FACC, BG ([id number]) on 11/19/2022 9:20:27 PM Referred By: Electronically Signed By:BG NATION MD FACC Transcribed By: MUS Signed By Bg Nation MD, FACC 11/19/222119 Normal [facility] Prothrombin Time INRon 11-19 INR Coag (PPP) [Relative time] 4.6 {INR} Normal [facility] Comment on above: Result Comment: INR [...] heart valves: 3 - 4.5 PERFORMED BY: [place] [address] PATHOLOGIST PACU NURSE GIULIA VALERIO M.D. Performed By: #### P T #### [address] PT Coag (PPP) [Time] 53.0 s High 9.0-12.9 [facility] Comment on above: Performed By: #### P T #### [address] Basic Metabolic Panelon 11-07 Anion gap [Moles/Vol] 10.5 mmol/L Normal 6.0-15.0 [facility] Comment on above: Order Comment: FASTI NG N Performed By: #### P T #### [address] Calcium [Mass/Vol] 8.9 mg/dL Normal 8.6-10.3 [facility] Comment on above: Order Comment: FASTI NG N Performed By: #### P T #### [address] Chloride [Moles/Vol] 97 mmol/L Low 98-107 [facility] Comment on above: Order Comment: FASTI NG N Performed By: #### P T #### [address] CO2 [Moles/Vol] 29.2 mmol/L Normal 21.0-31.0 [facility] Comment on above: Order Comment: FASTI NG N Performed By: #### P T #### [address] Creatinine [Mass/Vol] 1.03 mg/dL Normal 0.60-1.20 [facility] Comment on above: Order Comment: FASTI NG N Performed By: #### P T #### [address] Creatinine Clr Calc Pharmacy 38.56 Normal [facility] Comment on above: Order Comment: FASTI NG N Performed By: #### P T #### [address] GFR/1.73 sq M.predicted MDRD (S/P/Bld) [Vol rate/Area] 52.299 mL/min/{1.73_m2} Normal [facility] Comment on above: Order Comment: FASTI NG N Performed By: #### P T #### [address] Glucose [Mass/Vol] 103 mg/dL High 70-100 [facility] Comment on above: Order Comment: FASTI NG N Result Comment: [facility] Glucose Reference Range is dependent on time and content of last meal. Glucose of more than 200 mg/dL in a nonstressed, ambulatory subject supports the diagnosis of Diabetes Mellitus. ADA recommended reference range Performed By: #### P T #### [facility] [address] Potassium [Moles/Vol] 4.7 mmol/L Normal 3.5-5.1 [facility] Comment on above: Order Comment: FASTI NG N Performed By: #### P T #### [facility] [address] Sodium [Moles/Vol] 132 mmol/L Low 136-145 [facility] Comment on above: Order Comment: FASTI NG N Performed By: #### P T #### [address] Urea nitrogen [Mass/Vol] 16 mg/dL Normal 7-25 [facility] Comment on above: Order Comment: FASTI NG N Performed By: #### P T #### [address] Cholesterol [Mass/volume] in Serum or PlasmaOrdered By: Jamie Hathaway on 11-18-2022 Cholesterol [Mass/Vol] 154 mg/dL Normal 140-200 [facility] Comment on above: Chol less than 200 m g/dl low riskChol 201-239 mg/dl borderline riskChol 240 mg/dl and greater high risk Order Comment: FASTI NG N Result Comment: Chol less than 200 mg/dl low risk Chol 201-239 mg/dl borderline risk Chol 240 mg/dl and greater high risk Performed By: #### P T #### [place] [address] [place] Cholesterol in LDL Calc [Mas s/Vol]Ordered By: Jamie Hathaway on 11-18-2022 Cholesterol in LDL [Mass/Vol] 79 mg/dL 0-100 [facility] Comment on above: LDL ATP III CLASSIFI CATIONLDL less than 100 mg/dL OptimalLDL 100-129 mg/dL Near or above optimalLDL 130-159 mg/dL Borderline highLDL 160-189 mg/dL HighLDL greater than 189 mg/dL Very high Cholesterol in VLDL Calc [Ma ss/Vol]Ordered By: Jamie Hathaway on 11-18-2022 Cholesterol in VLDL [Mass/Vol] 25 mg/dL [facility] Complete Blood Count Auto Di ffon 11-18-2022 Basophils (Bld) [#/Vol] 0.1 10*3/uL Normal 0.0-0.2 [facility] Comment on above: Result Comment: PERF ORMED BY: [place] [address] PATHOLOGIST PACU NURSE GIULIA VALERIO M.D. Performed By: #### P T, BNP, CBC, CK, HS TROP, BMP, PTT #### [address] Basophils/100 WBC (Bld) 1.2 % Normal . [facility] Comment on above: Performed By: #### P T, BNP, CBC, CK, HS TROP, BMP, PTT #### [address] Eosinophils (Bld) [#/Vol] 0.1 10*3/uL Normal 0.0-0.45 [facility] Comment on above: Performed By: #### P T, BNP, CBC, CK, HS TROP, BMP, PTT #### [address] Eosinophils/100 WBC (Bld) 1.7 % Normal . [facility] Comment on above: Performed By: #### P T, BNP, CBC, CK, HS TROP, BMP, PTT #### [address] Erythrocyte distribution width (RBC) [Ratio] 14.7 % Normal 11.9-15.3 [facility] Comment on above: Performed By: #### P T, BNP, CBC, CK, HS TROP, BMP, PTT #### [address] Hematocrit (Bld) [Volume fraction] 40.2 % Normal 34.0-46.4 [facility] Comment on above: Performed By: #### P T, BNP, CBC, CK, HS TROP, BMP, PTT #### [address] Hemoglobin (Bld) [Mass/Vol] 13.4 g/dL Normal 11.8-15.4 [facility] Comment on above: Performed By: #### P T, BNP, CBC, CK, HS TROP, BMP, PTT #### [address] Lymphocytes (Bld) [#/Vol] 1.2 10*3/uL Normal 1.00-4.8 [facility] Comment on above: Performed By: #### P T, BNP, CBC, CK, HS TROP, BMP, PTT #### [address] Lymphocytes/100 WBC (Bld) 23.5 % Normal . [facility] Comment on above: Performed By: #### P T, BNP, CBC, CK, HS TROP, BMP, PTT #### [address] MCH (RBC) [Entitic mass] 32.0 pg Normal 24.7-34.3 [facility] Comment on above: Performed By: #### P T, BNP, CBC, CK, HS TROP, BMP, PTT #### [address] MCV (RBC) [Entitic vol] 96.1 fL Normal 80-100 [facility] Comment on above: Performed By: #### P T, BNP, CBC, CK, HS TROP, BMP, PTT #### [address] Mean Corpuscular HGB Conc 33.3 g/dL Normal 32.0-35.0 [facility] Comment on above: Performed By: #### P T, BNP, CBC, CK, HS TROP, BMP, PTT #### [address] Monocytes (Bld) [#/Vol] 0.5 10*3/uL Normal 0.0-0.8 [facility] Comment on above: Performed By: #### P T, BNP, CBC, CK, HS TROP, BMP, PTT #### [address] Monocytes/100 WBC (Bld) 9.8 % Normal . [facility] Comment on above: Performed By: #### P T, BNP, CBC, CK, HS TROP, BMP, PTT #### [address] Neutrophils (Bld) [#/Vol] 3.2 10*3/uL Normal 1.8-7.7 [facility] Comment on above: Performed By: #### P T, BNP, CBC, CK, HS TROP, BMP, PTT #### [address] Neutrophils/100 WBC (Bld) 63.8 % Normal . [facility] Comment on above: Performed By: #### P T, BNP, CBC, CK, HS TROP, BMP, PTT #### [address] NRBC% 0.2 /100{WBC} Normal 0-0.5 [facility] Comment on above: Performed By: #### P T, BNP, CBC, CK, HS TROP, BMP, PTT #### [address] Platelet mean volume (Bld) [Entitic vol] 7.8 fL Normal 6.3-10.7 [facility] Comment on above: Performed By: #### P T, BNP, CBC, CK, HS TROP, BMP, PTT #### [address] Platelets (Bld) [#/Vol] 198 10*3/uL Normal 150-450 [facility] Comment on above: Performed By: #### P T, BNP, CBC, CK, HS TROP, BMP, PTT #### [address] RBC (Bld) [#/Vol] 4.19 10*6/uL Normal 3.60-5.00 [facility] Comment on above: Performed By: #### P T, BNP, CBC, CK, HS TROP, BMP, PTT #### [address] WBC (Bld) [#/Vol] 5.0 10*3/uL Normal 3.8-11.6 [facility] Comment on above: Performed By: #### P T, BNP, CBC, CK, HS TROP, BMP, PTT #### [facility] [address] [place] [address] ECG 12 lead ECGon 11-18-2022 ECG 12 lead ECG [facility] Main [place] [address] [place] [address] Electrocardiograph Report Signed Patient: Erin Canales MR#: [id number] : 1935 Acct:[id number] Age/Sex: 87 / F ADM Date: 11/17/22 Loc: Room: [address] [place] [address] Type: ADM INOo Attending Dr: Ailyn Meng [...] QT has shortened Confirmed by CHAPIS LUNA [facility], BG ([id number]) on 11/18/2022 2:24:41 PM Referred By: Electronically Signed By:BG NATION MD [facility] Transcribed By: MUS Signed By Bg Nation MD, [facility] 11/18/22 1424 Normal [facility] Lipid Panelon 11-18-2022 LDL Cholesterol,Calculated 79 mg/dL Normal 0-100 [facility] Comment on above: Order Comment: FASTI NG N Result Comment: LDL ATP III CLASSIFICATION LDL less than 100 mg/dL Optimal LDL 100-129 mg/dL Near or above optimal LDL 130-159 mg/dL Borderline high LDL 160-189 mg/dL High LDL greater than 189 mg/dL Very high Performed By: #### P T #### [address] Triglyceride w/Reflex 125 mg/dL Normal 0-149 [facility] Comment on above: Order Comment: FASTI NG N Result Comment: TRIG ATP III CLASSIFICATION TRIG less than 150 mg/dL Normal TRIG 150-199 mg/dL Borderline high TRIG 200-500 mg/dL High TRIG greater than 500 mg/dL Very high Standard traceable to the Center for Disease Conrtrol and Prevention (CDC) test method. Performed By: #### P T #### [address] VLDL CHOLESTEROL 25 mg/dL Normal [facility] Comment on above: Order Comment: FASTI NG N Performed By: #### P T #### [address] Magnesium [Mass/volume] in S payal or PlasmaOrdered By: Ailyn Meng on 11-18-2022 Magnesium [Mass/Vol] 2.1 mg/dL Normal 1.9-2.7 [facility] Comment on above: Order Comment: Comme nt add Performed By: #### P T, BNP, CBC, CK, HS TROP, BMP, PTT #### [address] Prothrombin Time INRon 11-18 INR Coag (PPP) [Relative time] 4.5 {INR} Normal [facility] Comment on above: Result Comment: [...] heart valves: 3 - 4.5 PERFORMED BY: [place] [address] PATHOLOGIST PACU NURSE GIULIA VALERIO M.D. Performed By: #### H S TROP #### [address] PT Coag (PPP) [Time] 52.3 s High 9.0-12.9 [facility] Comment on above: Performed By: #### H S TROP #### [address] Serum or plasma high density lipoprotein (HDL) cholesterol measurementOrdered By: Jamie Hathaway on 11-18-2022 Cholesterol in HDL [Mass/Vol] 50 mg/dL Normal 23-92 [facility] Comment on above: HDL CHOL ATP-III CLA SSIFICATION Cardiovascular RiskHDL > or equal to 60 mg/dL LOWHDL < 40 mg/dL HIGH Order Comment: FASTI NG N Result Comment: HDL CHOL ATP-III CLASSIFICATION Cardiovascular Risk HDL > or equal to 60 mg/dL LOW HDL < 40 mg/dL HIGH Performed By: #### P T #### [address] Serum or plasma total choles terol/high density lipoprotein (HDL) cholesterol mass ratOrdered By: Jamie Hathaway on 11-18-2022 Cholesterol.total/Chol esterol in HDL [Mass ratio] 3.1 {ratio} Normal <5.0 [facility] Comment on above: Order Comment: FASTI NG N Result Comment: PERF ORMED BY: [place] [address] PATHOLOGIST PACU NURSE GIULIA VALERIO M.D. Performed By: #### P T #### [address] Thyrotropin [Units/volume] i n Serum or PlasmaOrdered By: Ailyn Meng on 11-18-2022 TSH Qn 7.98 m[IU]/L High 0.45-5.33 [facility] Comment on above: Order Comment: Comme nt add Result Comment: PERF ORMED BY: [place] [address] PATHOLOGIST PACU NURSE GIULIA VALERIO M.D. Performed By: #### P T, BNP, CBC, CK, HS TROP, BMP, PTT #### [address] Triglyceride [Mass/volume] i n Serum or PlasmaOrdered By: Jamie Hathaway on 11-18-2022 Triglyceride [Mass/Vol] 125 mg/dL 0-149 [facility] Comment on above: TRIG ATP III CLASSIF ICATIONTRIG less than 150 mg/dL NormalTRIG 150-199 mg/dL Borderline highTRIG 200-500 mg/dL High TRIG greater than 500 mg/dL Very highStandard traceable to the Center for Disease Conrtrol and Prevention (CDC) test method. Troponin I High Sensitivityo n 11-18-2022 Troponin I High Sensitivity 18.8 pg/mL High 0.0-15.0 [facility] Comment on above: Result Comment: PERF ORMED BY: [place] [address] PATHOLOGIST PACU NURSE GIULIA VALERIO M.D. Performed By: #### H S TROP #### [address] Troponin I High Sensitivity 18.4 pg/mL High 0.0-15.0 [facility] Comment on above: Result Comment: PERF ORMED BY: [place] [address] PATHOLOGIST PACU NURSE GIULIA VALERIO M.D. Performed By: #### P T #### [address] Troponin I High Sensitivity 24.9 pg/mL High 0.0-15.0 [facility] Comment on above: Result Comment: PERF ORMED BY: [place] [address] PATHOLOGIST PACU NURSE GIULIA VALERIO M.D. Performed By: #### P T, BNP, CBC, CK, HS TROP, BMP, PTT #### [address] Troponin I.cardiac [Mass/vol ume] in Serum or Plasma by Detection limit <= 0.01 ng/Ordered By: Jamie Hathaway on 11-18-2022 Troponin I.cardiac DL <= 0.01 ng/mL [Mass/Vol] 18.8 pg/mL 0.0-15.0 [facility] Activated partial thrombopla stin time (aPTT) in platelet poor plasma by coagulation aOrdered By: Philip Thompson on 11-17-2022 aPTT Coag (PPP) [Time] 46.9 s 25.1-36.5 [facility] Automated basophil %Ordered By: Philip Thompson on 11-17-2022 Basophils/100 WBC (Bld) 0.8 % Normal . [facility] Comment on above: Performed By: #### P T, BNP, CBC, CK, HS TROP, BMP, PTT #### [address] Automated basophil countOrde red By: Philip Thompson on 11-17-2022 Basophils (Bld) [#/Vol] 0.0 10*3/uL Normal 0.0-0.2 [facility] Comment on above: Result Comment: PERF ORMED BY: [place] [address] PATHOLOGIST PACU NURSE GIULIA VALERIO M.D. Performed By: #### P T, BNP, CBC, CK, HS TROP, BMP, PTT #### [facility] [address] [place] [address] Automated blood monocyte cou ntOrdered By: Philip Thompson on 11-17-2022 Monocytes (Bld) [#/Vol] 0.5 10*3/uL Normal 0.0-0.8 [facility] Comment on above: Performed By: #### P T, BNP, CBC, CK, HS TROP, BMP, PTT #### [address] Automated eosinophil %Ordere d By: Philip Thompson on 11-17-2022 Eosinophils/100 WBC (Bld) 0.8 % Normal . [facility] Comment on above: Performed By: #### P T, BNP, CBC, CK, HS TROP, BMP, PTT #### [address] Automated eosinophil countOr dered By: Philip Thompson on 11-17-2022 Eosinophils (Bld) [#/Vol] 0.0 10*3/uL Normal 0.0-0.45 [facility] Comment on above: Performed By: #### P T, BNP, CBC, CK, HS TROP, BMP, PTT #### [address] Automated monocyte %Ordered By: Philip Thompson on 11-17-2022 Monocytes/100 WBC (Bld) 7.8 % Normal . [facility] Comment on above: Performed By: #### P T, BNP, CBC, CK, HS TROP, BMP, PTT #### [address] Automated neutrophil %Ordere d By: Philip Thompson on 11-17-2022 Neutrophils/100 WBC (Bld) 73.5 % Normal . [facility] Comment on above: Performed By: #### P T, BNP, CBC, CK, HS TROP, BMP, PTT #### [address] BNP ser/plasOrdered By: Kamaljit Thompson on 11-17-2022 Natriuretic peptide B (Bld) [Mass/Vol] 249.0 pg/mL High 5-100 [facility] Comment on above: Result Comment: PERF ORMED BY: [place] [address] PATHOLOGIST PACU NURSE GIULIA VALERIO M.D. Performed By: #### P T, BNP, CBC, CK, HS TROP, BMP, PTT #### [address] Basic Metabolic Panelon 11-07 Creatinine Clr Calc Pharmacy 34.38 Normal [facility] Comment on above: Result Comment: PERF ORMED BY: [place] [address] PATHOLOGIST PACU NURSE GIULIA VALERIO M.D. Performed By: #### P T, BNP, CBC, CK, HS TROP, BMP, PTT #### [address] GFR/1.73 sq M.predicted MDRD (S/P/Bld) [Vol rate/Area] 47.298 mL/min/{1.73_m2} Normal [facility] Comment on above: Performed By: #### P T, BNP, CBC, CK, HS TROP, BMP, PTT #### [address] Calcium [Mass/volume] in Ser um or PlasmaOrdered By: Philip Thompson on 11-17-2022 Calcium [Mass/Vol] 9.5 mg/dL Normal 8.6-10.3 [facility] Comment on above: Performed By: #### P T, BNP, CBC, CK, HS TROP, BMP, PTT #### [address] Carbon dioxide, total [Moles /volume] in Serum or PlasmaOrdered By: Philip Thompson on 11-17-2022 CO2 [Moles/Vol] 27.5 mmol/L Normal 21.0-31.0 [facility] Comment on above: Performed By: #### P T, BNP, CBC, CK, HS TROP, BMP, PTT #### [address] Chloride [Moles/volume] in S payal or PlasmaOrdered By: Philip Thompson on 11-17-2022 Chloride [Moles/Vol] 94 mmol/L Low 98-107 [facility] Comment on above: Performed By: #### P T, BNP, CBC, CK, HS TROP, BMP, PTT #### [address] Complete Blood Count Auto Di ffon 11-17-2022 Mean Corpuscular HGB Conc 33.2 g/dL Normal 32.0-35.0 [facility] Comment on above: Performed By: #### P T, BNP, CBC, CK, HS TROP, BMP, PTT #### [place] [address] [place] Monocytes/100 WBC (Bld) 16.19 % Normal 0.00-20.00 [facility] Comment on above: Performed By: #### P T, BNP, CBC, CK, HS TROP, BMP, PTT #### [address] NRBC% 0.2 /100{WBC} Normal 0-0.5 [facility] Comment on above: Performed By: #### P T, BNP, CBC, CK, HS TROP, BMP, PTT #### [address] Creatine kinase [Enzymatic a ctivity/volume] in Serum or PlasmaOrdered By: Philip Thompson on 11-17-2022 CK [Catalytic activity/Vol] 62 U/L Normal 30-223 [facility] Comment on above: Performed By: #### P T, BNP, CBC, CK, HS TROP, BMP, PTT #### [address] Creatinine [Mass/volume] in Serum or PlasmaOrdered By: Philip Thompson on 11-17-2022 Creatinine [Mass/Vol] 1.12 mg/dL Normal 0.60-1.20 [facility] Comment on above: Performed By: #### P T, BNP, CBC, CK, HS TROP, BMP, PTT #### [address] ECG 12 lead ECGon 11-17-2022 ECG 12 lead ECG [facility] [place] [address] Electrocardiograph Report Signed Patient: Erin Canales MR#: [id number] : 1935 Acct:[id number] Age/Sex: 87 / F ADM Date: 11/17/22 Loc: ER Room: Type: [facility] ER Attending Dr: Ordering Provider: Philip [...] By Philip Thompson DO 2040 Normal [facility] Erythrocyte distribution wid th [Ratio] by Automated countOrdered By: Philip Thompson on 11-17-2022 Erythrocyte distribution width (RBC) [Ratio] 15.0 % Normal 11.9-15.3 [facility] Comment on above: Performed By: #### P T, BNP, CBC, CK, HS TROP, BMP, PTT #### [facility] [address] Erythrocytes [#/volume] in B lood by Automated countOrdered By: Philip Thompson on 11-17-2022 RBC (Bld) [#/Vol] 4.62 10*6/uL Normal 3.60-5.00 [facility] Comment on above: Performed By: #### P T, BNP, CBC, CK, HS TROP, BMP, PTT #### [facility] [address] Glucose [Mass/volume] in Ser um or PlasmaOrdered By: Philip Thompson on 11-17-2022 Glucose [Mass/Vol] 132 mg/dL High 70-100 [facility] Comment on above: ADA recommended refe rence rangeRandom Glucose Reference Range is dependent on time and content of last meal. Glucose of more than 200 mg/dL in a nonstressed, ambulatory subject supports the diagnosis of Diabetes Mellitus. Result Comment: [facility] om Glucose Reference Range is dependent on time and content of last meal. Glucose of more than 200 mg/dL in a nonstressed, ambulatory subject supports the diagnosis of Diabetes Mellitus. ADA recommended reference range Performed By: #### P T, BNP, CBC, CK, HS TROP, BMP, PTT #### [facility] [address] Hematocrit [Volume Fraction] of Blood by Automated countOrdered By: Philip Thompson on 11-17-2022 Hematocrit (Bld) [Volume fraction] 44.6 % Normal 34.0-46.4 [facility] Comment on above: Performed By: #### P T, BNP, CBC, CK, HS TROP, BMP, PTT #### [address] Hemoglobin [Mass/volume] in BloodOrdered By: Philip Thompson on 11-17-2022 Hemoglobin (Bld) [Mass/Vol] 14.8 g/dL Normal 11.8-15.4 [facility] Comment on above: Performed By: #### P T, BNP, CBC, CK, HS TROP, BMP, PTT #### [address] Leukocytes [#/volume] correc basim for nucleated erythrocytes in Blood by Automated counOrdered By: Philip Thompson on 11-17-2022 WBC corrected for nucl RBC Auto (Bld) [#/Vol] 5.8 10*3/uL 3.8-11.6 [facility] Leukocytes [#/volume] in Blo od by Automated countOrdered By: Philip Thompson on 11-17-2022 WBC (Bld) [#/Vol] 5.8 10*3/uL Normal 3.8-11.6 [facility] Comment on above: Performed By: #### P T, BNP, CBC, CK, HS TROP, BMP, PTT #### [place] [address] [place] Lymphocytes [#/volume] in Bl ood by Automated countOrdered By: Philip Thompson on 11-17-2022 Lymphocytes (Bld) [#/Vol] 1.0 10*3/uL Normal 1.00-4.8 [facility] Comment on above: Performed By: #### P T, BNP, CBC, CK, HS TROP, BMP, PTT #### [address] Lymphocytes/100 leukocytes i n Blood by Automated countOrdered By: Philip Thompson on 11-17-2022 Lymphocytes/100 WBC (Bld) 17.1 % Normal . [facility] Comment on above: Performed By: #### P T, BNP, CBC, CK, HS TROP, BMP, PTT #### [address] MCH [Entitic mass] by [employer] basim countOrdered By: Philip Thompson on 11-17-2022 MCH (RBC) [Entitic mass] 32.1 pg Normal 24.7-34.3 [facility] Comment on above: Performed By: #### P T, BNP, CBC, CK, HS TROP, BMP, PTT #### [address] MCHC Auto (RBC) [Mass/Vol]Or dered By: Philip Thompson on 11-17-2022 MCHC (RBC) [Mass/Vol] 33.2 g/dL 32.0-35.0 [facility] MCV [Entitic volume] by Auto mated countOrdered By: Philip Thompson on 11-17-2022 MCV (RBC) [Entitic vol] 96.6 fL Normal 80-100 [facility] Comment on above: Performed By: #### P T, BNP, CBC, CK, HS TROP, BMP, PTT #### [address] Monocyte distribution width [Entitic volume] in Blood by AutomatedOrdered By: Philip Thompson on 11-17-2022 Monocyte distribution width Auto (Bld) [Entitic vol] 16.19 % 0.00-20.00 [facility] Neutrophils [#/volume] in Bl ood by Automated countOrdered By: Philip Thompson on 11-17-2022 Neutrophils (Bld) [#/Vol] 4.3 10*3/uL Normal 1.8-7.7 [facility] Comment on above: Performed By: #### P T, BNP, CBC, CK, HS TROP, BMP, PTT #### [facility] [address] [place] [address] No Panel InformationOrdered By: Philip Thompson on 11-17-2022 Estimated GFR (CKD-EPI) 47.298 mL/Min [facility] Creatinine Clearance (Chem 34.38 [facility] Nucleated erythrocytes [Pres ence] in Blood by Automated countOrdered By: Philip Thompson on 11-17-2022 Nucleated RBC Auto Ql (Bld) 0.2 /100{WBC} 0-0.5 [facility] Partial Thromboplastin Timeo n 11-17-2022 aPTT Coag (Bld) [Time] 46.9 s High 25.1-36.5 [facility] Comment on above: Result Comment: PERF ORMED BY: [place] [address] PATHOLOGIST PACU NURSE GIULIA VALERIO M.D. Performed By: #### P T, BNP, CBC, CK, HS TROP, BMP, PTT ####[address] Platelet mean volume [Entiti c volume] in Blood by Automated countOrdered By: Philip Thompson on 11-17-2022 Platelet mean volume (Bld) [Entitic vol] 7.7 fL Normal 6.3-10.7 [facility] Comment on above: Performed By: #### P T, BNP, CBC, CK, HS TROP, BMP, PTT #### [facility] [address] [place] [address] Platelet poor plasma interna tional normalized ratio (INR) by coagulation assay (relatOrdered By: Philip Thompson on 11-17-2022 INR Coag (PPP) [Relative time] 3.7 {INR} Normal [facility] Comment on above: INR Therapeutic Rang [...] with mechanical heart valves: 3 - 4.5 Result Comment: INR Therapeutic Range A) Pre- [...] 4.5 Performed By: #### P T, BNP, CBC, CK, HS TROP, BMP, PTT ####[facility] Platelets [#/volume] in Bloo d by Automated countOrdered By: Philip Thompson on 11-17-2022 Platelets (Bld) [#/Vol] 220 10*3/uL Normal 150-450 [facility] Comment on above: Performed By: #### P T, BNP, CBC, CK, HS TROP, BMP, PTT #### [facility] [address] Potassium [Moles/volume] in Serum or PlasmaOrdered By: Philip Thompson on 11-17-2022 Potassium [Moles/Vol] 4.0 mmol/L Normal 3.5-5.1 [facility] Comment on above: Performed By: #### P T, BNP, CBC, CK, HS TROP, BMP, PTT #### [facility] [address] Prothrombin Time INROrdered By: Philip Thompson on 11-17-2022 PT Coag (PPP) [Time] 42.9 s High 9.0-12.9 [facility] Comment on above: Performed By: #### P T, BNP, CBC, CK, HS TROP, BMP, PTT ####[facility] Serum or plasma anion gap de terminationOrdered By: Philip Thompson on 11-17-2022 Anion gap [Moles/Vol] 12.5 mmol/L Normal 6.0-15.0 [facility] Comment on above: Performed By: #### P T, BNP, CBC, CK, HS TROP, BMP, PTT #### [facility] [address] Sodium [Moles/volume] in Ser um or PlasmaOrdered By: Philip Thompson on 11-17-2022 Sodium [Moles/Vol] 130 mmol/L Low 136-145 [facility] Comment on above: Performed By: #### P T, BNP, CBC, CK, HS TROP, BMP, PTT #### [facility] [address] [place] [address] Troponin I High Sensitivityo n 11-17-2022 Troponin I High Sensitivity 16.9 pg/mL High 0.0-15.0 [facility] Comment on above: Result Comment: PERF ORMED BY: [place] [address] PATHOLOGIST PACU NURSE GIULIA VALERIO M.D. Performed By: #### P T, BNP, CBC, CK, HS TROP, BMP, PTT #### [facility] [address] [place] [address] Troponin I.cardiac [Mass/vol ume] in Serum or Plasma by Detection limit <= 0.01 ng/Ordered By: Philip Thompson on 11-17-2022 Troponin I.cardiac DL <= 0.01 ng/mL [Mass/Vol] 16.9 pg/mL 0.0-15.0 [facility] Urea nitrogen [Mass/volume] in Serum or PlasmaOrdered By: Philip Thompson on 11-17-2022 Urea nitrogen [Mass/Vol] 19 mg/dL Normal 7-25 [facility] Comment on above: Performed By: #### P T, BNP, CBC, CK, HS TROP, BMP, PTT #### [facility] [address] [place], [place] [id number] [facility] XR chest 1V portableon 11-17 XR chest 1V portable [facility] Main [place] [address] [place] [address] XRay Report Signed Patient: Erin Canales MR#: [id number] : 1935 Acct:[id number] Age/Sex: 87 / F ADM Date: 11/17/22 Loc: ER Room: Type: [facility] ER Attending Dr: Copies to: Philip [...] Jag Arnold M.D.11/17/2022 8:08 PM Dictation Location: [place] [address] Transcribed By: [facility] 11/17/222007 Dictated By: Jag Arnold DO 11/17/221946 Signed By: 11/17/222007 Normal [facility] Tobacco Screening.on 023 Tobacco use status CPHS b) No -[facility] 600 DO Work Phone: Activated partial thrombopla stin time (aPTT) in platelet poor plasma by coagulation aOrdered By: Pearl Michel on 09-25-2022 aPTT Coag (PPP) [Time] 37.0 s 25.1-36.5 [facility] Coagulation Profileon 2022 aPTT Coag (Bld) [Time] 37.0 s High 25.1-36.5 [facility] Comment on above: Result Comment: PERF ORMED BY: [address] [address] PATHOLOGIST PACU NURSE GIULIA VALERIO M.D. Performed By: #### P T, BNP, CBC, CK, HS TROP, BMP, PTT #### [place] [id number] [place] Coagulation ProfileOrdered B y: Pearl Michel on 09-25-2022 PT Coag (PPP) [Time] 16.9 s High 9.0-12.9 [facility] Comment on above: Performed By: #### P T, BNP, CBC, CK, HS TROP, BMP, PTT #### [facility] [address] ECG 12 lead ECGon 09-25-2022 ECG 12 lead ECG [facility] Main [place] [address] [place] [address] Electrocardiograph Report Signed Patient: Erin Canales MR#: [id number] : 1935 Acct:[id number] Age/Sex: 87 / F ADM Date: 09/25/22 Loc: Room: Type: [facility] Attending Dr: Pearl Michel DO Ordering Provider: [...] MUS Signed By Kirk Estevez DO 09/26 918 Normal [facility] No Panel Informationon 09-25 37.0\S\37.0 above high threshold 25.1-36.5 -[facility] Heart-Sandu ayde 250 DO Work Phone: Comment on above: PERFORMED BY:[address] [place], [place] [id number] MEDICAL DIRECTORGIULIA VALERIO M.D. 1.5\S\1.5 Normal [facility] ayde [employer] DO Work Phone: Comment on above: INR [...] - 4.5 16.9\S\16.9 above high threshold 9.0-12.9 [facility] ayde 250 DO Work Phone: Platelet poor plasma interna tional normalized ratio (INR) by coagulation assay (relatOrdered By: Pearl Michel on 09-25-2022 INR Coag (PPP) [Relative time] 1.5 {INR} Normal [facility] Comment on above: INR Therapeutic Rang [...] with mechanical heart valves: 3 - 4.5 Result Comment: INR Therapeutic Range A) Pre- [...] 4.5 Performed By: #### P T, BNP, CBC, CK, HS TROP, BMP, PTT #### [facility] [address] [place] [address] [facility] Activated partial thrombopla stin time (aPTT) in platelet poor plasma by coagulation aOrdered By: Pearl Michel on 09-22-2022 aPTT Coag (PPP) [Time] 48.7 s 25.1-36.5 [facility] Automated basophil %Ordered By: Pearl Michel on 09-22-2022 Basophils/100 WBC (Bld) 0.9 % Normal . [facility] Comment on above: Performed By: #### H S TROP #### [address] Automated basophil countOrde red By: Pearl Michel on 09-22-2022 Basophils (Bld) [#/Vol] 0.1 10*3/uL Normal 0.0-0.2 [facility] Comment on above: Result Comment: PERF ORMED BY: [place] [address] PATHOLOGIST PACU NURSE GIULIA VALERIO M.D. Performed By: #### H S TROP #### [address] Automated blood monocyte cou ntOrdered By: Pearl Michel on 09-22-2022 Monocytes (Bld) [#/Vol] 0.5 10*3/uL Normal 0.0-0.8 [facility] Comment on above: Performed By: #### H S TROP #### [address] Automated eosinophil %Ordere d By: Pearl Michel on 09-22-2022 Eosinophils/100 WBC (Bld) 1.8 % Normal . [facility] Comment on above: Performed By: #### H S TROP #### [address] Automated eosinophil countOr dered By: Pearl Michel on 09-22-2022 Eosinophils (Bld) [#/Vol] 0.1 10*3/uL Normal 0.0-0.45 [facility] Comment on above: Performed By: #### H S TROP #### [address] Automated monocyte %Ordered By: Pearl Michel on 09-22-2022 Monocytes/100 WBC (Bld) 8.4 % Normal . [facility] Comment on above: Performed By: #### H S TROP #### [facility] [address] [place] [address] [place] Automated neutrophil %Ordere d By: Pearl Michel on 09-22-2022 Neutrophils/100 WBC (Bld) 67.2 % Normal . [facility] Comment on above: Performed By: #### H S TROP #### [facility] [address] [place] [address] [place] Carbon dioxide, total [Moles /volume] in Serum or PlasmaOrdered By: Pearl Michel on 09-22-2022 CO2 [Moles/Vol] 26.2 mmol/L Normal 21.0-31.0 [facility] Comment on above: Performed By: #### H S TROP #### [place] [address] [place] Chloride [Moles/volume] in S payal or PlasmaOrdered By: Pearl Michel on 09-22-2022 Chloride [Moles/Vol] 109 mmol/L High 98-107 [facility] Comment on above: Performed By: #### H S TROP #### [facility] [address] [place] [address] [place] Cholesterol [Mass/volume] in Serum or PlasmaOrdered By: Pearl Michel on 09-22-2022 Cholesterol [Mass/Vol] 163 mg/dL Normal 140-200 [facility] Comment on above: Chol less than 200 m g/dl low riskChol 201-239 mg/dl borderline riskChol 240 mg/dl and greater high risk Result Comment: Chol less than 200 mg/dl low risk Chol 201-239 mg/dl borderline risk Chol 240 mg/dl and greater high risk Performed By: #### H S TROP #### [facility] [address] [place] [address] [place] Cholesterol in LDL Calc [Mas s/Vol]Ordered By: Pearl Michel on 09-22-2022 Cholesterol in LDL [Mass/Vol] 90 mg/dL 0-100 [facility] Comment on above: LDL ATP III CLASSIFI CATIONLDL less than 100 mg/dL OptimalLDL 100-129 mg/dL Near or above optimalLDL 130-159 mg/dL Borderline highLDL 160-189 mg/dL HighLDL greater than 189 mg/dL Very high Cholesterol in VLDL Calc [Ma ss/Vol]Ordered By: Pearl Michel on 09-22-2022 Cholesterol in VLDL [Mass/Vol] 27 mg/dL [facility] Coagulation Profileon 2022 aPTT Coag (Bld) [Time] 48.7 s High 25.1-36.5 [facility] Comment on above: Result Comment: PERF ORMED BY: [place] [address] PATHOLOGIST PACU NURSE GIULIA VALERIO M.D. Performed By: #### H S TROP #### [address] Coagulation ProfileOrdered B y: Pearl Michel on 09-22-2022 PT Coag (PPP) [Time] 41.6 s High 9.0-12.9 [facility] Comment on above: Performed By: #### H S TROP #### [address] Complete Blood Count Auto Di ffon 09-22-2022 Mean Corpuscular HGB Conc 32.9 g/dL Normal 32.0-35.0 [facility] Comment on above: Performed By: #### H S TROP #### [address] NRBC% 0.1 /100{WBC} Normal 0-0.5 [facility] Comment on above: Performed By: #### H S TROP #### [address] Creatinineon 09-22-2022 GFR/1.73 sq M.predicted MDRD (S/P/Bld) [Vol rate/Area] 45.347 mL/min/{1.73_m2} Normal [facility] Comment on above: Performed By: #### H S TROP #### [address] Creatinine [Mass/volume] in Serum or PlasmaOrdered By: Pearl Michel on 09-22-2022 Creatinine [Mass/Vol] 1.16 mg/dL Normal 0.60-1.20 [facility] Comment on above: Performed By: #### H S TROP #### [address] ECG 12 lead ECGon 09-22-2022 ECG 12 lead ECG [facility] Main [place] [address] [place] [address] Electrocardiograph Report Signed Patient: Erin Canales MR#: [id number] : 1935 Acct:[id number] Age/Sex: 87 / F ADM Date: 09/22/22 Loc: Room: Type: [facility] Attending Dr: Pearl Michel DO Ordering Provider: Pearl Michel DO Date of Service: 09/22/22 ECG/ECG 12 lead ECG: [facility] Copies to: Test Reason : Blood Pressure [...] has lengthened Confirmed by SHER LUNA [facility] ([id number]) on 09/22/2022 11:19:52 PM Referred By: ANAND Electronically Signed By:PHILIP OLIVAREZ MD FAC Transcribed By: [facility] Signed By Akhil Olivarez MD 09/22/22 0512 Normal [facility] Erythrocyte distribution wid th [Ratio] by Automated countOrdered By: Pearl Michel on 09-22-2022 Erythrocyte distribution width (RBC) [Ratio] 16.1 % High 11.9-15.3 [facility] Comment on above: Performed By: #### H S TROP #### [place] [id number] [place] Erythrocytes [#/volume] in B lood by Automated countOrdered By: Pearl Michel on 09-22-2022 RBC (Bld) [#/Vol] 4.09 10*6/uL Normal 3.60-5.00 [facility] Comment on above: Performed By: #### H S TROP #### [facility] [address] Hematocrit [Volume Fraction] of Blood by Automated countOrdered By: Pearl Michel on 09-22-2022 Hematocrit (Bld) [Volume fraction] 39.0 % Normal 34.0-46.4 [facility] Comment on above: Performed By: #### H S TROP #### [facility] [address] [place] [address] Hemoglobin [Mass/volume] in BloodOrdered By: Pearl Michel on 09-22-2022 Hemoglobin (Bld) [Mass/Vol] 12.8 g/dL Normal 11.8-15.4 [facility] Comment on above: Performed By: #### H S TROP #### [facility] [address] [place] [address] Laboratory - Chemistry and C hemistry - challengeon 09-22-2022 Cholesterol [Mass/Vol] 163\S\163 Normal 140-200 [facility] 250 DO Work Phone: Comment on above: Chol less than 200 m g/dl low risk Chol 201-239 mg/dl borderline risk Chol 240 mg/dl and greater high risk Cholesterol in LDL [Mass/Vol] 90\S\90 Normal 0-100 [facility] 250 DO Work Phone: Comment on above: LDL ATP III CLASSIFI CATION LDL less than 100 mg/dL Optimal LDL 100-129 mg/dL Near or above optimal LDL 130-159 mg/dL Borderline high LDL 160-189 mg/dL High LDL greater than 189 mg/dL Very high Leukocytes [#/volume] correc basim for nucleated erythrocytes in Blood by Automated counOrdered By: Pearl Michel on 09-22-2022 WBC corrected for nucl RBC Auto (Bld) [#/Vol] 6.2 10*3/uL 3.8-11.6 [facility] Leukocytes [#/volume] in Blo od by Automated countOrdered By: Pearl Michel on 09-22-2022 WBC (Bld) [#/Vol] 6.2 10*3/uL Normal 3.8-11.6 [facility] Comment on above: Performed By: #### H S TROP #### [place] [address] [place] Lipid Panelon 09-22-2022 LDL Cholesterol,Calculated 90 mg/dL Normal 0-100 [facility] Comment on above: Result Comment: LDL ATP III CLASSIFICATION LDL less than 100 mg/dL Optimal LDL 100-129 mg/dL Near or above optimal LDL 130-159 mg/dL Borderline high LDL 160-189 mg/dL High LDL greater than 189 mg/dL Very high Performed By: #### H S TROP #### [place] [address] [place] Triglyceride w/Reflex 137 mg/dL Normal 0-149 [facility] Comment on above: Result Comment: TRIG ATP III CLASSIFICATION TRIG less than 150 mg/dL Normal TRIG 150-199 mg/dL Borderline high TRIG 200-500 mg/dL High TRIG greater than 500 mg/dL Very high Standard traceable to the Center for Disease Conrtrol and Prevention (CDC) test method. Performed By: #### H S TROP #### [address] VLDL CHOLESTEROL 27 mg/dL Normal [facility] Comment on above: Performed By: #### H S TROP #### [place] [id number] [place] Lymphocytes [#/volume] in Bl ood by Automated countOrdered By: Pearl Michel on 09-22-2022 Lymphocytes (Bld) [#/Vol] 1.3 10*3/uL Normal 1.00-4.8 [facility] Comment on above: Performed By: #### H S TROP #### [place] [id number] [place] Lymphocytes/100 leukocytes i n Blood by Automated countOrdered By: Pearl Michel on 09-22-2022 Lymphocytes/100 WBC (Bld) 21.7 % Normal . [facility] Comment on above: Performed By: #### H S TROP #### [facility] [address] [place] [address] MCH [Entitic mass] by Automa basim countOrdered By: Pearl Michel on 09-22-2022 MCH (RBC) [Entitic mass] 31.4 pg Normal 24.7-34.3 [facility] Comment on above: Performed By: #### H S TROP #### [address] MCHC Auto (RBC) [Mass/Vol]Or dered By: Pearl Michel on 09-22-2022 MCHC (RBC) [Mass/Vol] 32.9 g/dL 32.0-35.0 [facility] MCV [Entitic volume] by Auto mated countOrdered By: Pearl Michel on 09-22-2022 MCV (RBC) [Entitic vol] 95.5 fL Normal 80-100 [facility] Comment on above: Performed By: #### H S TROP #### [address] Neutrophils [#/volume] in Bl ood by Automated countOrdered By: Pearl Michel on 09-22-2022 Neutrophils (Bld) [#/Vol] 4.2 10*3/uL Normal 1.8-7.7 [facility] Comment on above: Performed By: #### H S TROP #### [facility] [address] [place] [address] No Panel InformationOrdered By: Pearl Michel on 09-22-2022 Estimated GFR (CKD-EPI) 45.347 mL/Min [facility] Creatinine Clearance (Chem N/A [facility] No Panel Informationon 09-22 0.1\S\0.1 Normal 0-0.5 -[facility]-Sandu ayde 250 DO Work Phone: Comment on above: PERFORMED BY:[address] [place], [place] [id number] MEDICAL DIRECTORGIULIA VALERIO M.D. 0.5\S\0.5 Normal 0.0-0.8 -[facility]Sandu ayde 250 DO Work Phone: [phone] 1.3\S\1.3 Normal 1.00-4.8 -[facility]-Sandu ayde 250 DO Work Phone: [phone] 4.2\S\4.2 Normal 1.8-7.7 -[facility]-Sandu ayde 250 DO Work Phone: [phone] 0.9\S\0.9 Normal . [facility]-Sandu ayde 250 DO Work Phone: [phone] 1.8\S\1.8 Normal . [facility]-Sandu ayde 250 DO Work Phone: [phone] 8.4\S\8.4 Normal . [facility]-Sandu ayde 250 DO Work Phone: [phone] 21.7\S\21.7 Normal . [facility]-Sandu ayde 250 DO Work Phone: [phone] 67.2\S\67.2 Normal . [facility]-Sandu ayde 250 DO Work Phone: [phone] 8.6\S\8.6 Normal 6.3-10.7 [facility]-Sandu ayde 250 DO Work Phone: [phone] 180\S\180 Normal 150-450 [facility]Sandu ayde 250 DO Work Phone: [phone] 16.1\S\16.1 above high threshold 11.9-15.3 [facility]Sandu ayde 250 DO Work Phone: [phone] 32.9\S\32.9 Normal 32.0-35.0 [facility]Sandu ayde 250 DO Work Phone: [phone] 31.4\S\31.4 Normal 24.7-34.3 [facility]Sandu ayde 250 DO Work Phone: [phone] 95.5\S\95.5 Normal 80-100 [facility]-Gamaliel ayde 250 DO Work Phone: 39.0\S\39.0 Normal 34.0-46.4 [facility] ayde 250 DO Work Phone: 12.8\S\12.8 Normal 11.8-15.4 [facility] 250 DO Work Phone: 4.09\S\4.09 Normal 3.60-5.00 [facility] ayde 250 DO Work Phone: 6.2\S\6.2 Normal 3.8-11.6 [facility] 250 DO Work Phone: 48.7\S\48.7 above high threshold 25.1-36.5 [facility] ayde 250 DO Work Phone: Comment on above: PERFORMED BY:[place] [address] [place], [place] [phone] MEDICAL DIRECTORGIULIA VALERIO M.D. 3.6\S\3.6 Normal [facility] 250 DO Work Phone: Comment [...] - 4.5 41.6\S\41.6 above high threshold 9.0-12.9 [facility] ayde 250 DO Work Phone: 11.4\S\11.4 Normal 6.0-15.0 [facility] 250 DO Work Phone: 26.2\S\26.2 Normal 21.0-31.0 [facility] Timothy messer 250 DO Work Phone: 109\S\109 above high threshold 98-107 [facility] Timothy messer 250 DO Work Phone: 4.6\S\4.6 Normal 3.5-5.1 [facility] HeartKalee messer 250 DO Work Phone: [phone] 142\S\142 Normal 136-145 [facility] Timothy messer 250 DO Work Phone: 44\S\44 above high threshold 7-25 [facility] HeartKalee messer 250 DO Work Phone: [phone] 45.347\S\45.347 Normal [facility] Timothy messer 250 DO Work Phone: 1.16\S\1.16 Normal 0.60-1.20 [facility] Timothy messer 250 DO Work Phone: 3.5\S\3.5 Normal <5.0 [facility] Timothy messer 250 DO Work Phone: Comment on above: PERFORMED BY:[place] [address] [place], [place] [phone] MEDICAL DIRECTORGIULIA VALERIO M.D. 27\S\27 Normal [facility] Timothy messer 250 DO Work Phone: 137\S\137 Normal 0-149 [facility] Timothy messer 250 DO Work Phone: Comment on above: TRIG ATP III CLASSIF ICATION TRIG less than 150 mg/dL Normal TRIG 150-199 mg/dL Borderline high TRIG 200-500 mg/dL High TRIG greater than 500 mg/dL Very high Standard traceable to the Center for Disease Conrtrol and Prevention (CDC) test method. 46\S\46 Normal 23-92 [facility] Timothy messer 250 DO Work Phone: Comment on above: HDL CHOL ATP-III CLA SSIFICATION Cardiovascular Risk HDL > or equal to 60 mg/dL LOW HDL < 40 mg/dL HIGH Nucleated erythrocytes [Pres ence] in Blood by Automated countOrdered By: Pearl Michel on 09-22-2022 Nucleated RBC Auto Ql (Bld) 0.1 /100{WBC} 0-0.5 [facility] Platelet mean volume [Entiti c volume] in Blood by Automated countOrdered By: Pearl Michel on 09-22-2022 Platelet mean volume (Bld) [Entitic vol] 8.6 fL Normal 6.3-10.7 [facility] Comment on above: Performed By: #### H S TROP #### [facility] [address] Platelet poor plasma interna tional normalized ratio (INR) by coagulation assay (relatOrdered By: Pearl Michel on 09-22-2022 INR Coag (PPP) [Relative time] 3.6 {INR} Normal [facility] Comment on above: INR Therapeutic Rang [...] with mechanical heart valves: 3 - 4.5 Result Comment: INR Therapeutic Range A) Pre- [...] valves: 3 - 4.5 Performed By: #### H S TROP #### [facility] [address] [place] [address] [place] Platelets [#/volume] in Bloo d by Automated countOrdered By: Pearl Michel on 09-22-2022 Platelets (Bld) [#/Vol] 180 10*3/uL Normal 150-450 [facility] Comment on above: Performed By: #### H S TROP #### [facility] [address] [place] [address] [place] Potassium [Moles/volume] in Serum or PlasmaOrdered By: Pearl Michel on 09-22-2022 Potassium [Moles/Vol] 4.6 mmol/L Normal 3.5-5.1 [facility] Comment on above: Performed By: #### H S TROP #### [address] Serum or plasma anion gap de terminationOrdered By: Pearl Michel on 09-22-2022 Anion gap [Moles/Vol] 11.4 mmol/L Normal 6.0-15.0 [facility] Comment on above: Performed By: #### H S TROP #### [facility] [address] [place] [address] Serum or plasma high density lipoprotein (HDL) cholesterol measurementOrdered By: Pearl Michel on 09-22-2022 Cholesterol in HDL [Mass/Vol] 46 mg/dL Normal 23-92 [facility] Comment on above: HDL CHOL ATP-III CLA SSIFICATION Cardiovascular RiskHDL > or equal to 60 mg/dL LOWHDL < 40 mg/dL HIGH Result Comment: HDL CHOL ATP-III CLASSIFICATION Cardiovascular Risk HDL > or equal to 60 mg/dL LOW HDL < 40 mg/dL HIGH Performed By: #### H S TROP #### [address] Serum or plasma total choles terol/high density lipoprotein (HDL) cholesterol mass ratOrdered By: Pearl Michel on 09-22-2022 Cholesterol.total/Chol esterol in HDL [Mass ratio] 3.5 {ratio} Normal <5.0 [facility] Comment on above: Result Comment: PERF ORMED BY: [place] [address] PATHOLOGIST PACU NURSE GIULIA VALERIO M.D. Performed By: #### H S TROP #### [address] Sodium [Moles/volume] in Ser um or PlasmaOrdered By: Pearl Michel on 09-22-2022 Sodium [Moles/Vol] 142 mmol/L Normal 136-145 [facility] Comment on above: Performed By: #### H S TROP #### [facility] [address] [place] [id number] [facility] Triglyceride [Mass/volume] i n Serum or PlasmaOrdered By: Pearl Michel on 09-22-2022 Triglyceride [Mass/Vol] 137 mg/dL 0-149 [facility] Comment on above: TRIG ATP III CLASSIF ICATIONTRIG less than 150 mg/dL NormalTRIG 150-199 mg/dL Borderline highTRIG 200-500 mg/dL High TRIG greater than 500 mg/dL Very highStandard traceable to the Center for Disease Conrtrol and Prevention (CDC) test method. Urea nitrogen [Mass/volume] in Serum or PlasmaOrdered By: Pearl Michel on 09-22-2022 Urea nitrogen [Mass/Vol] 44 mg/dL High 7-25 [facility] Comment on above: Performed By: #### H S TROP #### [facility] [address] [id number] [facility] Tobacco Screening.on 023 Fall risk assessment b) One or more fall s in the last year [facility] CEYX 250 DO Work Phone: Tobacco use status CPHS b) No [facility] CEYX 250 DO Work Phone: [facility] CARDIAC STRESS/REST INJE CTIONon 09-14-2022 [facility] CARDIAC STRESS/REST INJECTION Patient Name: ERIN CANALES STUDY: MYOCARDIAL PERFUSION STRESS TEST WITH LEXISCAN Performing facility: [facility], [address] [place] [address], [address] [place] [address] Provider: Wili Olivarez MD, FACC PCP: Dr. Ashley Chaudhary Supervising provider: Bg Nation MD, FACC INDICATION: Angina pectoris CAD; HISTORY: Gender: F; Age: 87 y/o ; Height: 0 cm; Weight: 0 kg. Abnormal EKG; CAD; High Cholesterol; Family HX CAD; Arrhythmias; HTN; Chest Pain; SOB; Denies smoking. Cardiac catheterization on 2009. PTCA on 2009. COMPARISON: Previous nuclear testing completed [id number] at [facility]. ACCESSION NUMBER(S): [id number]; [id number]; [id number] ORDERING CLINICIAN: AKHIL OLIVAREZ TECHNIQUE: ONE DAY [...] Electronically signed by: BG NATION MD Normal [facility] No Panel Informationon 09-14 Please click on the link to view the study images Normal [facility] Heart-Norwa lk 600 DO Work Phone: Normal [facility] Heart-Sandu ayde 250 DO Work Phone: Tobacco Screening.on 023 Adult depression screening assessment No [facility] Heart-SynapDxu ayde 250 DO Work Phone: Fall risk assessment b) One or more fall s in the last year [facility] Heart-SynapDxu ayde 250 DO Work Phone: Tobacco use status CPHS b) No [facility] Heart-SynapDxu ayde 250 DO Work Phone: CNPNon 08-29-2022 CNPN Telephone (PLASMN) -- ERIN CANALES ([id number]) 1935 F Date Time Provider Department 08/29/22 SHWETA SOL During your visit today, we recorded the following information about you: Perry Zhang 08/29/2022 12:14 PM Signed Patient's daughter called with surgery questions and would like to speak with someone regarding anesthesia. Was not at appointment with mother when surgery was discussed. [phone] - Betty Canales (daughter) Geeta Archer RN 08/29/2022 12:56 PM Signed Returned call to patient's daughter. She was asking if the weight could be placed under local, explained that it could. The other options will require general and clearance from her industrial engineering analyst. Allergies As of Date: 08/29/2022 Noted Allergy Reaction MOTRIN (IBUPROFEN) 10/29/2012 16 - Unknown [id number] REDUCTASE INHIBIT*08/25/2022 14 - Other: See Comments Comments: Cannot walk when she takes it Date Reviewed: 08/25/2022 Reviewed by: Thuy Robles MA - Fully Assessed Reason for Visit: Patient Question [3499] Prescriptions as of 08/29/2022 - torsemide (DEMADEX) [...] Status:Closed by PERRY ZHANG on 08/29/22 Normal [facility] CNOVon 08-25-2022 CNOV Office Visit ([facility] ) -- ERIN CANALES ([id number]) 1935 F Date Time Provider Department 08/25/22 2:00 PM SHWETA SOL [facility] During your visit today, we recorded the following information about you: Temperature Pulse Blood pressure Weight 97.7 degrees 54/minute 113/48 83.8 kg Shweta Sol MD 08/25/2022 3:28 PM Signed CC: 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 This developed [...] Histories independentl (more content not included)... 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 Normal [facility] Tobacco Screening.on 023 Tobacco use status HS b) No -[facility] Heart-Sandu ayde 250 DO Work Phone: CBC AUTO DIFFon 08-01-2022 BASO # 0.1 103/ul Normal 0.0-0.1 [facility] Comment on above: Performed By: #### C BC #### [facility] [address] [address] [address] Parth Wilson Basophils/100 WBC (Bld) 0.9 % Normal 0.2-2.0 [facility] Comment on above: Performed By: #### C BC #### [facility] [address] [place] [address] Dr. Parth Wilson EO # 0.1 103/ul Normal 0.0-0.7 [facility] Comment on above: Performed By: #### C BC #### [facility] [address] [place] [address] Dr. Parth Wilson Eosinophils/100 WBC (Bld) 1.6 % Normal 0.9-7.0 [facility] Comment on above: Performed By: #### C BC #### [facility] [address] [place] [address] Dr. Parth Wilson Erythrocyte distribution width (RBC) [Ratio] 14.7 % Normal 11.0-15.0 [facility] Comment on above: Performed By: #### C BC #### [facility] [address] [place] [address] Dr. Parth Wilson Hematocrit (Bld) [Volume fraction] 41.0 % Normal 36.0-48.0 [facility] Comment on above: Performed By: #### C BC #### [facility] [address] [place] [address] Dr. Parth Wilson Hemoglobin (Bld) [Mass/Vol] 12.8 g/dL Normal 12.0-16.0 [facility] Comment on above: Performed By: #### C BC #### [facility] [address] [place] [address] Dr. Parth Wilson IG # 0.02 10e3/ul Normal 0.00-0.03 [facility] Comment on above: Performed By: #### C BC #### [facility] [address] [place] [address] Dr. Parth Wilson IG % 0.4 % Normal 0.0-0.5 [facility] Comment on above: Performed By: #### C BC #### [facility] [address] [place] [address] Dr. Parth Wilson LYMPH # 1.6 103/ul Normal 1.2-3.8 [facility] Comment on above: Performed By: #### C BC #### [facility] [address] [place] [address] Dr. Parth Wilson Lymphocytes/100 WBC (Bld) 29.2 % Normal 20.5-60.0 [facility] Comment on above: Performed By: #### C BC #### [facility] [address] [place] [address] Dr. Parth Wilson MANUAL DIFF REQ NO Normal [facility] Comment on above: Performed By: #### C BC #### [facility] [address] [place] [address] Dr. Parth Wilson MCH (RBC) [Entitic mass] 30.8 pg Normal 26.7-34.0 [facility] Comment on above: Performed By: #### C BC #### [facility] [address] [place] [address] Dr. Parth Wilson MCHC (RBC) [Mass/Vol] 31.2 g/dL Normal 29.9-35.2 [facility] Comment on above: Performed By: #### C BC #### [facility] [address] [place] [address] Dr. Parth Wilson MCV (RBC) [Entitic vol] 98.8 fL Normal 81.0-99.0 [facility] Comment on above: Performed By: #### C BC #### [facility] [address] [place] [address] Dr. Parth Wilson MONO # 0.5 103/ul Normal 0.3-0.8 [facility] Comment on above: Performed By: #### C BC #### [facility] [address] [place] [address] Dr. Parth Wilson Monocytes/100 WBC (Bld) 9.5 % Normal 1.7-12.0 [facility] Comment on above: Performed By: #### C BC #### [facility] [address] [place] [address] Dr. Parth Wilson NEUT # 3.3 103/ul Normal 1.4-6.5 [facility] Comment on above: Performed By: #### C BC #### [facility] [address] [place] [address] Dr. Parth Wilson Neutrophils/100 WBC (Bld) 58.4 % Normal 43.0-75.0 [facility] Comment on above: Performed By: #### C BC #### [facility] [address] [place], [place] [address] Dr. Parth Wilson Platelet mean volume (Bld) [Entitic vol] 9.9 fL Normal 9.5-13.5 [facility] Comment on above: Performed By: #### C BC #### [facility] [address] [place], [place] [address] Dr. aPrth Wilson PLT 213 103/ul Normal 150-450 [facility] Comment on above: Performed By: #### C BC #### [facility] [id number] Parth Wilson RBC 4.15 106/ul Critically low 4.20-5.40 [facility] Comment on above: Performed By: #### C BC #### [facility] [address] [place], [place] [address] Dr. Parth Wilson WBC 5.6 103/ul Normal 4.0-11.0 [facility] Comment on above: Performed By: #### C BC #### [facility] [id number] Parth Wilson Office Visit (Cardiology)on 07-05-2022 [...] mLAD PCI/COLBY mDiag PCI/COLBY OM3 PCI/COLBY RCA [employer] L>R bridging collaterals CX mild Hyperlipidemia (272.4) [...] contact the office if new symptoms arise. SOLE CEMENTER in one month to reassess symptoms If [...] lot. She did report that walking into [employer] last week was more difficult , she [...] patient is (more content not included)... Normal [facility] Tobacco Screening.on 023 Adult depression screening assessment No [facility] CEYX 250 DO Work Phone: Fall risk assessment b) One or more fall s in the last year [facility] CEYX 250 DO Work Phone: Tobacco use status CPHS b) No [facility] DO Work Phone: CALCIUMon 06-28-2022 Calcium [Mass/Vol] 9.4 mg/dL Normal 8.5-10.1 [facility] Comment on above: Performed By: #### [place] #### [facility] [address] [address] [address] Parth Wilson CREATININEon 06-28-2022 Creatinine [Mass/Vol] 1.27 mg/dL Critically high 0.55-1.02 [facility] Comment on above: Performed By: #### [place] #### [facility] [address] [address] [address] Parth Wilson EGFR-AF KAZAKH 48 mL/min/1.73m2 Critically low >=60 [facility] Comment on above: Performed By: #### [place] #### [facility] [address] [address] [address] Parth Wilson EGFR-NON AF KAZAKH 40 mL/min/1.73m2 Critically low >=60 [facility] Comment on above: Performed By: #### [place] #### [facility] [address] [address] [address] Parth Wilson Aspartate aminotransferase [ Enzymatic activity/volume] in Serum or PlasmaOrdered By: Akhil Olivarez on 06-13-2022 AST [Catalytic activity/Vol] 26 U/L 10-42 [facility] Calcium [Mass/volume] in Ser um or PlasmaOrdered By: Akhil Olivarez on 06-13-2022 Calcium [Mass/Vol] 9.9 mg/dL 8.2-10.2 [facility] Carbon dioxide, total [Moles /volume] in Serum or PlasmaOrdered By: Akhil Olivarez on 06-13-2022 CO2 [Moles/Vol] 26.6 mmol/L 22.0-30.0 [facility] Chloride [Moles/volume] in S payal or PlasmaOrdered By: Akhil Olivarez on 06-13-2022 Chloride [Moles/Vol] 99 mmol/L 95-114 [facility] Creatinine and Glomerular fi ltration rate.predicted panel (S/P/Bld)Ordered By: Akhil Olivarez on 06-13-2022 Creatinine [Mass/Vol] 1.17 mg/dL 0.44-1.03 [facility] Glucose [Mass/volume] in Ser um or PlasmaOrdered By: Akhil Olivarez on 06-13-2022 Glucose [Mass/Vol] 111 mg/dL 70-100 [facility] Comment on above: ADA recommended refe rence rangeRandom Glucose Reference Range is dependent on time and content of last meal. Glucose of more than 200 mg/dL in a nonstressed, ambulatory subject supports the diagnosis of Diabetes Mellitus. Laboratory - Chemistry and C hemistry - challengeOrdered By: Akhil Olivarez on 06-13-2022 GFR/1.73 sq M.predicted MDRD (S/P/Bld) [Vol rate/Area] 44.882 mL/min/{1.73_m2} [facility] No Panel InformationOrdered By: Akhil Olivarez on 06-13-2022 Pharmacy Creatinine Clearance (Chem N/A [facility] No Panel Informationon 06-13 3.34\S\3.34 Normal 0.45-5.33 [facility] CEYX 250 DO Work Phone: Comment on above: PERFORMED BY:[address] [address] [place] [phone] MEDICAL DIRECTORGIULIA VALERIO M.D. 26\S\26 Normal 10-42 [facility] CEYX 250 DO Work Phone: 9.9\S\9.9 Normal 8.2-10.2 [facility] CEYX 250 DO Work Phone: 16.1\S\16.1 above high threshold 6.0-15.0 [facility] CEYX 250 DO Work Phone: 26.6\S\26.6 Normal 22.0-30.0 [facility] CEYX 250 DO Work Phone: 99\S\99 Normal 95-114 [facility] CEYX 250 DO Work Phone: 4.7\S\4.7 Normal 3.5-5.1 [facility] Timothy messer 250 DO Work Phone: 137\S\137 Normal 136-146 [facility] Timothy messer 250 DO Work Phone: 1.17\S\1.17 above high threshold 0.44-1.03 [facility] Timothy messer 250 DO Work Phone: 35\S\35 above high threshold 9-23 [facility] Timothy messer 250 DO Work Phone: 111\S\111 above high threshold 70-100 [facility] Timothy messer 250 DO Work Phone: Comment on above: Random Glucose Refer ence Range is dependent on time and content of last meal. Glucose of more than 200 mg/dL in a nonstressed, ambulatory subject supports the diagnosis of Diabetes Mellitus. ADA recommended reference range 44.882\S\44.882 Normal [facility] Timothy messer 250 DO Work Phone: Potassium [Moles/volume] in Serum or PlasmaOrdered By: Akhil Olivarez on 06-13-2022 Potassium [Moles/Vol] 4.7 mmol/L 3.5-5.1 [facility] Radiologyon 06-13-2022 XR Chest 2 Views Normal [facility] Timothy messer 250 DO Work Phone: Serum or plasma anion gap de terminationOrdered By: Akhil Olivarez on 06-13-2022 Anion gap [Moles/Vol] 16.1 mmol/L 6.0-15.0 [facility] Sodium [Moles/volume] in Ser um or PlasmaOrdered By: Akhil Olivarez on 06-13-2022 Sodium [Moles/Vol] 137 mmol/L 136-146 [facility] TSH DL <= 0.005 mIU/L QnOrde red By: Akhil Olivarez on 06-13-2022 TSH Qn 3.34 m[IU]/L 0.45-5.33 [facility] Urea nitrogen [Mass/volume] in Serum or PlasmaOrdered By: Akhil Olivarez on 06-13-2022 Urea nitrogen [Mass/Vol] 35 mg/dL 12-30 [facility] Covid-19 PCR (CVDTB)on SARS-CoV-2 (COVID-19) RNA CIERA+probe Ql (Unsp spec) Detected Critically abnormal NOT DETECTED [facility] Comment on above: Result Comment: This test is not yet approved or cleared by the [place] FDA. When there are no FDA-approved or cleared tests available, and other criteria are met, FDA can make tests available under an emergency access mechanism called an Emergency Use Authorization (EUA). The EUA for this test is supported by the [place] of Health and Human Service's (HHS's) declaration [...] used). Performed By: #### C VDTBH #### [facility] [address] [place] [address] Dr. Parth Wilson INFLUENZA A AND B AGon 03-10 [facility] SEE BELOW Normal [facility] Comment on above: Result Comment: Nega tive for Flu A protein angiten. Infection due to Flu A cannot be ruled out. Flu A angiten in the sample may be below the detection limit of the test. Performed By: #### I NFLUAB #### [facility] [address] [place] [address] Dr. Parth [facility] SEE BELOW Normal [facility] Comment on above: Result Comment: Nega tive for Flu B protein antigen. Infection due to Flu B cannot be ruled out. Flu B antigen in the sample may be below the detection limit of the test. Performed By: #### I NFLUAB #### [facility] [address] [place] [address] Dr. Parth Wilson INFLUENZA A AG Negative Normal NEGATIVE SEE COMMENT [facility] Comment on above: Performed By: #### I NFLUAB #### [facility] [address] [place] [address] Dr. Parth Wilson INFLUENZA B AG Negative Normal NEGATIVE SEE COMMENT [facility] Comment on above: Performed By: #### I NFLUAB #### [facility] [address] [place] [address] Dr. Parth Wilson INTERNAL CONTROLS Within Normal Limits Normal Wi thin Normal Limits [facility] Comment on above: Performed By: #### I NFLUAB #### [facility] [address] [address] [address] Parth Wilson Office Visit (Cardiology)on 02-07-2022 [...] TabletTAKE 1 TABLET DAILY DIRECTED. Managed at [facility]. Allergies Medication Beta Adrenergic Blockers Allergy; Bradycardia;; [...] Signs Recorded: 07Feb2022 10:11AM Heart Rate62, Apical Snrvmfad585, RUE, Sitting Rppzcvyle92, RUE, Sitting Height5 ft 2 in Zuqbdy716 lb BMI Lcezuvnoca64.84 kg/m2 BSA Calculated1.85 Tobacco Useb) No Falls Screening (Age 18+)b) One or more falls in the last year EKG done in office today Physical Exam Constitutional: alert and in no acute distress. Eyes: no erythema, swelling or discharge from the (more content not included)... [facility] Tobacco Screening.on 022 Fall risk assessment b) One or more fall s in the last year [facility] CEYX 250 DO Work Phone: Tobacco use status [facility] b) No [facility] CEYX 250 DO Work Phone: Activated partial thrombopla stin time (aPTT) in platelet poor plasma by coagulation aOrdered By: Myron Villarreal on 01-10-2022 aPTT Coag (PPP) [Time] 36.5 s 25.1-36.5 [facility] Albumin [Mass/volume] in Ser um or PlasmaOrdered By: Myron Villarreal on 01-10-2022 Albumin [Mass/Vol] 4.1 g/dL 3.2-5.5 [facility] Automated erythrocytes count in urine sediment (number/area)Ordered By: Myron Villarreal on 01-10-2022 RBC Auto (Urine sed) [#/Area] 0-1 [HPF] 0-4 [facility] Automated leukocytes count i n urine sediment (number/area)Ordered By: Myron Villarreal on 01-10-2022 WBC Auto (Urine sed) [#/Area] 50-100 [HPF] 0-4 [facility] Basophils Auto (Bld) [#/Vol] Ordered By: PROVIDER TEMP on 01-10-2022 Basophils (Bld) [#/Vol] 0.1 10*3/uL 0.0-0.2 [facility] Basophils/100 WBC Auto (Bld) Ordered By: PROVIDER TEMP on 01-10-2022 Basophils/100 WBC (Bld) 1.1 % . [facility] Bilirubin Test strip Ql (U)O rdered By: Myron Villarreal on 01-10-2022 Bilirubin Ql (U) Negative Negative [facility] Blood hemoglobin measurement (mass/volume)Ordered By: PROVIDER TEMP on 01-10-2022 Hemoglobin (Bld) [Mass/Vol] 14.2 g/dL 11.8-15.4 [facility] Blood leukocytes automated c ount (number/volume)Ordered By: PROVIDER TEMP on 01-10-2022 WBC (Bld) [#/Vol] 7.4 10*3/uL 4.5-11.0 [facility] Color Auto (U)Ordered By: Stanislav Villarreal on 01-10-2022 Color (U) Yellow Yellow [facility] Creatinine and Glomerular fi ltration rate.predicted panel (S/P/Bld)Ordered By: Myron Villarreal on 01-10-2022 Creatinine [Mass/Vol] 0.87 mg/dL 0.44-1.03 [facility] Eosinophils Auto (Bld) [#/Vo l]Ordered By: PROVIDER TEMP on 01-10-2022 Eosinophils (Bld) [#/Vol] 0.1 10*3/uL 0.0-0.45 [facility] Eosinophils/100 WBC Auto (Bl d)Ordered By: PROVIDER TEMP on 01-10-2022 Eosinophils/100 WBC (Bld) 1.0 % . [facility] Erythrocyte distribution wid th Auto (RBC) [Ratio]Ordered By: PROVIDER TEMP on 01-10-2022 Erythrocyte distribution width (RBC) [Ratio] 14.0 % 11.9-15.3 [facility] Estimated glomerular filtrat ion rate (GFR) non- AmericanOrdered By: Myron Villarreal on 01-10-2022 GFR/1.73 sq M.predicted among non-blacks MDRD (S/P/Bld) [Vol rate/Area] > 60 mL/Min [facility] Globulin Calc (S) [Mass/Vol] Ordered By: Myron Villarreal on 01-10-2022 Globulin (S) [Mass/Vol] 3.4 g/dL [facility] Hematocrit Auto (Bld) [Volum e fraction]Ordered By: PROVIDER TEMP on 01-10-2022 Hematocrit (Bld) [Volume fraction] 42.8 % 34.0-46.4 [facility] Ketones Auto test strip (U) [Mass/Vol]Ordered By: Myron Villarreal on 01-10-2022 Ketones (U) [Mass/Vol] Negative Negative [facility] - CoagulationOrde red By: Myron Villarreal on 01-10-2022 PT Coag (PPP) [Time] 18.6 s 9.0-12.9 [facility] - Hematology and Cell countsOrdered By: PROVIDER TEMP on 01-10-2022 Nucleated RBC/100 WBC (Bld) [Ratio] 0.2 % 0-0.5 [facility] - UrinalysisOrder ed By: Myron Villarreal on 01-10-2022 Hyaline casts LM Ql (Urine sed) 0-8 [LPF] 0-8 [facility] Lymphocytes Auto (Bld) [#/Vo l]Ordered By: PROVIDER TEMP on 01-10-2022 Lymphocytes (Bld) [#/Vol] 1.6 10*3/uL 1.00-4.8 [facility] Lymphocytes/100 WBC Auto (Bl d)Ordered By: PROVIDER TEMP on 01-10-2022 Lymphocytes/100 WBC (Bld) 22.2 % . [facility] MCH Auto (RBC) [Entitic mass ]Ordered By: PROVIDER TEMP on 01-10-2022 MCH (RBC) [Entitic mass] 32.9 pg 24.7-34.3 [facility] MCHC Auto (RBC) [Mass/Vol]Or dered By: PROVIDER TEMP on 01-10-2022 MCHC (RBC) [Mass/Vol] 33.1 g/dL 32.0-35.0 [facility] MCV Auto (RBC) [Entitic vol] Ordered By: PROVIDER TEMP on 01-10-2022 MCV (RBC) [Entitic vol] 99.3 fL 80-100 [facility] Monocytes Auto (Bld) [#/Vol] Ordered By: PROVIDER TEMP on 01-10-2022 Monocytes (Bld) [#/Vol] 0.5 10*3/uL 0.0-0.8 [facility] Monocytes/100 WBC Auto (Bld) Ordered By: PROVIDER TEMP on 01-10-2022 Monocytes/100 WBC (Bld) 6.3 % . [facility] Neutrophils Auto (Bld) [#/Vo l]Ordered By: PROVIDER TEMP on 01-10-2022 Neutrophils (Bld) [#/Vol] 5.2 10*3/uL 1.8-7.7 [facility] Neutrophils/100 WBC Auto (Bl d)Ordered By: PROVIDER TEMP on 01-10-2022 Neutrophils/100 WBC (Bld) 69.4 % . [facility] Nitrite Test strip Ql (U)Ord ered By: Myron Villrareal on 01-10-2022 Nitrite Ql (U) Positive Negative [facility] No Panel InformationOrdered By: Myron Villarreal on 01-10-2022 Estimated GFR () > 60 mL/Min [facility] Comment on above: GFR estimated refere nce range: According to KDOQI guidelines, <60 ml/min/1.73m2 is sufficient to diagnose a patient with chronic kidney disease. Pharmacy Creatinine Clearance (Chem 44.27 [facility] Platelet mean volume Auto (B ld) [Entitic vol]Ordered By: PROVIDER TEMP on 01-10-2022 Platelet mean volume (Bld) [Entitic vol] 8.3 fL 6.3-10.7 [facility] Platelet poor plasma interna tional normalized ratio (INR) by coagulation assay (relatOrdered By: Myron Villarreal on 01-10-2022 INR Coag (PPP) [Relative time] 1.6 {INR} [facility] Comment on above: INR Therapeutic Rang [...] 01-10-2022 Platelets (Bld) [#/Vol] 281 10*3/uL 150-450 [facility] Protein Auto test strip (U) [Mass/Vol]Ordered By: Myron Villarreal on 01-10-2022 Protein (U) [Mass/Vol] Negative Negative Fi [facility] Protein [Mass/volume] in Ser um or PlasmaOrdered By: Myron Villarreal on 01-10-2022 Protein [Mass/Vol] 7.5 g/dL 6.1-7.9 [facility] RBC Auto (Bld) [#/Vol]Ordere d By: PROVIDER TEMP on 01-10-2022 RBC (Bld) [#/Vol] 4.31 10*6/uL 3.60-5.00 [facility] Serum or plasma alanine owusu otransferase measurement without P-5'-P (enzymatic activiOrdered By: Myron Villarreal on 01-10-2022 ALT No additional P-5'-P [Catalytic activity/Vol] 15 U/L 10-60 [facility] Serum or plasma albumin/glob ulin mass ratioOrdered By: Myron Villarreal on 01-10-2022 Albumin/Globulin [Mass ratio] 1.2 {ratio} [facility] Serum or plasma alkaline dulce maria sphatase measurement (enzymatic activity/volume)Ordered By: Myron Villarreal on 01-10-2022 ALP [Catalytic activity/Vol] 56 U/L 32-92 [facility] Serum or plasma anion gap de terminationOrdered By: Myron Villarreal on 01-10-2022 Anion gap [Moles/Vol] 14.5 mmol/L 6.0-15.0 [facility] Serum or plasma aspartate am inotransferase measurement (enzymatic activity/volume)Ordered By: Myron Villarreal on 01-10-2022 AST [Catalytic activity/Vol] 22 U/L 10-42 [facility] Serum or plasma calcium silva urement (mass/volume)Ordered By: Myron Villarreal on 01-10-2022 Calcium [Mass/Vol] 9.5 mg/dL 8.2-10.2 [facility] [facility] or plasma chloride hector surement (moles/volume)Ordered By: Myron Villarreal on 01-10-2022 Chloride [Moles/Vol] 100 mmol/L 95-114 [facility] Serum or plasma glucose silva urement (mass/volume)Ordered By: Myron Villarreal on 01-10-2022 Glucose [Mass/Vol] 88 mg/dL 70-100 [facility] Comment on above: ADA recommended refe rence rangeRandom Glucose Reference Range is dependent on time and content of last meal. Glucose of more than 200 mg/dL in a nonstressed, ambulatory subject supports the diagnosis of Diabetes Mellitus. Serum or plasma potassium me asurement (moles/volume)Ordered By: Myron Villarreal on 01-10-2022 Potassium [Moles/Vol] 4.0 mmol/L 3.5-5.1 [facility] Serum or plasma sodium measu rement (moles/volume)Ordered By: Myron Villarreal on 01-10-2022 Sodium [Moles/Vol] 138 mmol/L 136-146 [facility] Serum or plasma total biliru bin measurement (mass/volume)Ordered By: Myron Villarreal on 01-10-2022 Bilirubin [Mass/Vol] 0.5 mg/dL 0.3-1.2 [facility] Serum or plasma total carbon dioxide measurement (moles/volume)Ordered By: Myron Villarreal on 01-10-2022 CO2 [Moles/Vol] 27.5 mmol/L 22.0-30.0 [facility] Serum or plasma urea nitroge n measurement (mass/volume)Ordered By: Myron Villarreal on 01-10-2022 Urea nitrogen [Mass/Vol] 20 mg/dL 9- [facility] Specific gravity Auto test s trip (U) [Rel density]Ordered By: Myron Villarreal on 01-10-2022 Specific gravity (U) [Rel density] 1.014 1.001-1.03 0 [facility] Squamous epithelial cells de tection in urine sediment by light microscopyOrdered By: Myron Villarreal on 01-10-2022 Epithelial cells.squamous LM Ql (Urine sed) 0-1 [HPF] 0-2 [facility] Urine bacteria detection by automated methodOrdered By: Myron Villarreal on 01-10-2022 Bacteria Auto Ql (U) 4+ None Seen [facility] Urine clarity by refractomet ry automatedOrdered By: Myron Villarreal on 01-10-2022 Clarity Refractometry automated (U) Cloudy Clear [facility] Urine glucose measurement by automated test strip (mass/volume)Ordered By: Myron Villarreal on 01-10-2022 Glucose Auto test strip (U) [Mass/Vol] Normal mg/dL Normal [facility] Urine hemoglobin detection b y automated test stripOrdered By: Myron Villarreal on 01-10-2022 Hemoglobin Auto test strip Ql (U) Negative Negative [facility] Urine leukocyte esterase det ection by automated test stripOrdered By: Myron Villarreal on 01-10-2022 Leukocyte esterase Auto test strip Ql (U) 4+ Negative [facility] Urobilinogen Auto test strip (U) [Mass/Vol]Ordered By: Myron Villarreal on 01-10-2022 Urobilinogen (U) [Mass/Vol] Normal mg/dL Normal [facility] pH Auto test strip (U)Ordere d By: Myron Villarreal on 01-10-2022 pH (U) 6.5 [pH] 5.0-9.0 [facility] - CoagulationOrde red By: Doug Montana on 01-05-2022 PT Coag (PPP) [Time] 15.9 s 9.0-12.9 [facility] Platelet poor plasma interna tional normalized ratio (INR) by coagulation assay (relatOrdered By: Doug Montana on 01-05-2022 INR Coag (PPP) [Relative time] 1.4 {INR} [facility] Comment on above: INR Therapeutic Rang [...] 01-04-2022 Basophils (Bld) [#/Vol] 0.1 10*3/uL 0.0-0.2 [facility] Basophils/100 WBC Auto (Bld) Ordered By: Doug Montana on 01-04-2022 Basophils/100 WBC (Bld) 0.6 % . [facility] Blood hemoglobin measurement (mass/volume)Ordered By: Doug Montana on 01-04-2022 Hemoglobin (Bld) [Mass/Vol] 14.3 g/dL 11.8-15.4 [facility] Blood leukocytes automated c ount (number/volume)Ordered By: Doug Montana on 01-04-2022 WBC (Bld) [#/Vol] 10.4 10*3/uL 4.5-11.0 [facility] Eosinophils Auto (Bld) [#/Vo l]Ordered By: Doug Montana on 01-04-2022 Eosinophils (Bld) [#/Vol] 0.1 10*3/uL 0.0-0.45 [facility] Eosinophils/100 WBC Auto (Bl d)Ordered By: Doug Montana on 01-04-2022 Eosinophils/100 WBC (Bld) 0.6 % . [facility] Erythrocyte distribution wid th Auto (RBC) [Ratio]Ordered By: Doug Montana on 01-04-2022 Erythrocyte distribution width (RBC) [Ratio] 14.2 % 11.9-15.3 [facility] Hematocrit Auto (Bld) [Volum e fraction]Ordered By: Doug Montana on 01-04-2022 Hematocrit (Bld) [Volume fraction] 42.9 % 34.0-46.4 [facility] - CoagulationOrde red By: Doug Montana on 01-04-2022 PT Coag (PPP) [Time] 19.8 s 9.0-12.9 [facility] - Hematology and Cell countsOrdered By: Doug Montana on 01-04-2022 Nucleated RBC/100 WBC (Bld) [Ratio] 0.1 % 0-0.5 [facility] Lymphocytes Auto (Bld) [#/Vo l]Ordered By: Doug Montana on 01-04-2022 Lymphocytes (Bld) [#/Vol] 2.1 10*3/uL 1.00-4.8 [facility] Lymphocytes/100 WBC Auto (Bl d)Ordered By: Doug Montana on 01-04-2022 Lymphocytes/100 WBC (Bld) 20.2 % . [facility] MCH Auto (RBC) [Entitic mass ]Ordered By: Doug Montana on 01-04-2022 MCH (RBC) [Entitic mass] 33.0 pg 24.7-34.3 [facility] MCHC Auto (RBC) [Mass/Vol]Or dered By: Doug Montana on 01-04-2022 MCHC (RBC) [Mass/Vol] 33.3 g/dL 32.0-35.0 [facility] MCV Auto (RBC) [Entitic vol] Ordered By: Doug Montana on 01-04-2022 MCV (RBC) [Entitic vol] 99.1 fL 80-100 [facility] Monocytes Auto (Bld) [#/Vol] Ordered By: Doug Montana on 01-04-2022 Monocytes (Bld) [#/Vol] 0.6 10*3/uL 0.0-0.8 [facility] Monocytes/100 WBC Auto (Bld) Ordered By: Doug Montana on 01-04-2022 Monocytes/100 WBC (Bld) 5.3 % . [facility] Neutrophils Auto (Bld) [#/Vo l]Ordered By: Doug Montana on 01-04-2022 Neutrophils (Bld) [#/Vol] 7.6 10*3/uL 1.8-7.7 [facility] Neutrophils/100 WBC Auto (Bl d)Ordered By: Doug Montana on 01-04-2022 Neutrophils/100 WBC (Bld) 73.3 % . [facility] Platelet mean volume Auto (B ld) [Entitic vol]Ordered By: Doug Montana on 01-04-2022 Platelet mean volume (Bld) [Entitic vol] 7.8 fL 6.3-10.7 [facility] Platelet poor plasma interna tional normalized ratio (INR) by coagulation assay (relatOrdered By: Doug Montana on 01-04-2022 INR Coag (PPP) [Relative time] 1.8 {INR} [facility] Comment on above: INR Therapeutic Rang [...] 01-04-2022 Platelets (Bld) [#/Vol] 296 10*3/uL 150-450 [facility] RBC Auto (Bld) [#/Vol]Ordere d By: Doug Montana on 01-04-2022 RBC (Bld) [#/Vol] 4.33 10*6/uL 3.60-5.00 [facility] CALCIUMon 12-29-2021 Calcium [Mass/Vol] 9.3 mg/dL Normal 8.5-10.1 [facility] Comment on above: Performed By: #### SINDHU WARD #### [facility] [address] [place] [address] Dr. Parth Wilson CREATININEon 12-29-2021 Creatinine [Mass/Vol] 0.97 mg/dL Normal 0.55-1.02 [facility] Comment on above: Performed By: #### SINDHU WARD #### [facility] [address] [address] [address] Parth Wilson EGFR-AF KAZAKH >60 Normal >=60 [facility] Comment on above: Performed By: #### SINDHU WARD #### [facility] [address] [address] [address] Parth Wilson EGFR-NON AF KAZAKH 54 mL/min/1.73m2 Critically low >=60 [facility] Comment on above: Performed By: #### C SINDHU CAMPO #### [facility] [address] [address] [address] Parth Wilson Creatinine and Glomerular fi ltration rate.predicted panel (S/P/Bld)Ordered By: Akhil Olivarez on 12-13-2021 Creatinine [Mass/Vol] 0.74 mg/dL 0.44-1.03 [facility] Estimated glomerular filtrat ion rate (GFR) non- AmericanOrdered By: Akhil Olivarez on 12-13-2021 GFR/1.73 sq M.predicted among non-blacks MDRD (S/P/Bld) [Vol rate/Area] > 60 mL/Min [facility] No Panel InformationOrdered By: Akhil Olivarez on 12-13-2021 Estimated GFR () > 60 mL/Min [facility] Comment on above: GFR estimated refere nce range: According to KDOQI guidelines, <60 ml/min/1.73m2 is sufficient to diagnose a patient with chronic kidney disease. Pharmacy Creatinine Clearance (Chem N/A [facility] No Panel Informationon 12-13 3.46\S\3.46 Normal 0.45-5.33 [facility] CEY[facility] [address] DO Work Phone: Comment on above: PERFORMED BY:[address] [address] [place] [phone] MEDICAL DIRECTORGIULIA VALERIO M.D. 19\S\19 Normal 10-42 [facility] [address] DO Work Phone: 19.5\S\19.5 above high threshold 6.0-15.0 [facility] [address] DO Work Phone: 10.4\S\10.4 above high threshold 8.2-10.2 [facility] 250 DO Work Phone: 26.6\S\26.6 Normal 22.0-30.0 [facility] Timothy messer 250 DO Work Phone: 95\S\95 Normal 95-114 [facility] Timothy messer 250 DO Work Phone: 4.1\S\4.1 Normal 3.5-5.1 [facility] Timothy messer 250 DO Work Phone: [phone] 137\S\137 Normal 136-146 [facility] Timothy messer 250 DO Work Phone: > 60 Normal [facility] Timothy messer 250 DO Work Phone: Comment on above: GFR estimated refere nce range: According to KDOQI guidelines, <60 ml/min/1.73m2 is sufficient to diagnose a patient with chronic kidney disease. 0.74\S\0.74 Normal 0.44-1.03 [facility] Timothy messer 250 DO Work Phone: 11\S\11 Normal 9-23 [facility] Timothy Krueger DO Work Phone: 111\S\111 above high threshold 70-100 [facility] Timothy messer 250 DO Work Phone: Comment on above: Random Glucose Refer ence Range is dependent on time and content of last meal. Glucose of more than 200 mg/dL in a nonstressed, ambulatory subject supports the diagnosis of Diabetes Mellitus. ADA recommended reference range Radiologyon 12-13-2021 XR Chest 2 Views Normal [facility] Timothy messer 250 DO Work Phone: Serum or plasma anion gap de terminationOrdered By: Akhil Olivarez on 12-13-2021 Anion gap [Moles/Vol] 19.5 mmol/L 6.0-15.0 [facility] Serum or plasma aspartate am inotransferase measurement (enzymatic activity/volume)Ordered By: Akhil Olivarez on 12-13-2021 AST [Catalytic activity/Vol] 19 U/L 10-42 [facility] Serum or plasma calcium silva urement (mass/volume)Ordered By: Akhil Olivarez on 12-13-2021 Calcium [Mass/Vol] 10.4 mg/dL 8.2-10.2 [facility] Serum or plasma chloride hector surement (moles/volume)Ordered By: Akhil Olivarez on 12-13-2021 Chloride [Moles/Vol] 95 mmol/L 95-114 [facility] Serum or plasma glucose silva urement (mass/volume)Ordered By: Akhil Olivarez on 12-13-2021 Glucose [Mass/Vol] 111 mg/dL 70-100 [facility] Comment on above: ADA recommended refe [...] on 12-13-2021 Potassium [Moles/Vol] 4.1 mmol/L 3.5-5.1 [facility] Serum or plasma sodium measu rement (moles/volume)Ordered By: Akhil Olivarez on 12-13-2021 Sodium [Moles/Vol] 137 mmol/L 136-146 [facility] Serum or plasma total carbon dioxide measurement (moles/volume)Ordered By: Akhil Olivarez on 12-13-2021 CO2 [Moles/Vol] 26.6 mmol/L 22.0-30.0 [facility] Serum or plasma urea nitroge n measurement (mass/volume)Ordered By: Akhil Olivarez on 12-13-2021 Urea nitrogen [Mass/Vol] 11 mg/dL 9-23 [facility] TSH DL <= 0.005 mIU/L QnOrde red By: Akhil Olivarez on 12-13-2021 TSH Qn 3.46 m[IU]/L 0.45-5.33 [facility] Office Visit (Cardiology)on 11-28-2021 Follow-up visit [...] Weight Tips; Status:Complete - Retrospective Authorization; Done: [id number] SocHx: Never a smoker Tobacco Use Screening; Status:Complete; Done: [id number] Patient Instructions Please bring all medicines, vitamins, [...] TabletTAKE 1 TABLET DAILY DIRECTED. Managed at [facility]. Allergies Medication Motrin TABS Allergy; Hives;; Updated [...] negative for complaint. Vitals Vital Signs Recorded: [id number] 08:51AMRecorded: [id number] 08:22AM Ifbfvncx225, LUE, Xevjfcu798, LUE, Sitting Ckedodiot39, LUE, Auqeidr61, LUE, Sitting Heart Rate72, L Radial Height5 ft 2 in Udkofr235 lb BMI Jcjonprgqr64.64 kg/m2 BSA Calculated1.8 Tobacco Useb) No Falls [...] . Psyc (more content not included)... [facility] Tobacco Screening.on 022 Fall risk assessment a) No falls within the last year -[facility] [address] DO Work Phone: Tobacco use status CPHS b) No -[facility] 250 DO Work Phone: Laboratory - CoagulationOrde red By: Nguyễn Langston on 10-29-2021 PT Coag (PPP) [Time] 38.1 s 9.0-12.9 [facility] Platelet poor plasma interna tional normalized ratio (INR) by coagulation assay (relatOrdered By: Nguyễn Langston on 10-29-2021 INR Coag (PPP) [Relative time] 3.3 {INR} [facility] Comment on above: INR Therapeutic Rang [...] aPTT Coag (PPP) [Time] 45.5 s 25.1-36.5 [facility] Albumin [Mass/volume] in Ser um or PlasmaOrdered By: Stephanie Locke on 10-28-2021 Albumin [Mass/Vol] 3.9 g/dL 3.2-5.5 [facility] Basophils Auto (Bld) [#/Vol] Ordered By: Nguyễn Langston on 10-28-2021 Basophils (Bld) [#/Vol] 0.0 10*3/uL 0.0-0.2 [facility] Basophils/100 WBC Auto (Bld) Ordered By: Nguyễn Langston on 10-28-2021 Basophils/100 WBC (Bld) 0.3 % . [facility] Bilirubin Test strip Ql (U)O rdered By: Stephanie Locke on 10-28-2021 Bilirubin Ql (U) Negative Negative [facility] Blood hemoglobin measurement (mass/volume)Ordered By: Nguyễn Langston on 10-28-2021 Hemoglobin (Bld) [Mass/Vol] 14.6 g/dL 11.8-15.4 [facility] Blood leukocytes automated c ount (number/volume)Ordered By: Nguyễn Langston on 10-28-2021 WBC (Bld) [#/Vol] 7.1 10*3/uL 4.5-11.0 [facility] C reactive protein [Mass/vol ume] in Serum or Plasma by High sensitivity methodOrdered By: Jana Madrid on 10-28-2021 CRP High sensitivity method [Mass/Vol] 1.8 mg/L [facility] Comment on above: Cardiovascular Risk Classification [...] SARS-CoV-2 (COVID-19) Ab IA Ql Negative Negative [facility] Comment on above: This is a duplicate [employer] Xpert Xpress CoV-2/Flu/RSV Plus RNA by RT-PCR result to be used for statistical tracking purpose only. SARS-CoV-2 (COVID-19) RNA CIERA+probe Ql (Unsp spec) [facility] COVID-19 SOFIAOrdered By: Izzy Locke on 10-28-2021 SARS-CoV+SARS-CoV-2 (COVID-19) Ag IA.rapid Ql (Resp) Negative Negative [facility] Comment on above: This is a duplicate Luiza SARS Antigen (BRANDON) result to be used for statistical tracking purpose only. Cholesterol [Mass/volume] in Serum or PlasmaOrdered By: Ashely Adan on 10-28-2021 Cholesterol [Mass/Vol] 230 mg/dL 140-200 [facility] Comment on above: Chol less than 200 m g/dl low risk Chol 201-239 mg/dl borderline risk Chol 240 mg/dl and greater high risk Chol less than 200 m g/dl low riskChol 201-239 mg/dl borderline riskChol 240 mg/dl and greater high risk Cholesterol in LDL Calc [Mas s/Vol]Ordered By: Ashely Adan on 10-28-2021 Cholesterol in LDL [Mass/Vol] 158 mg/dL 0-100 [facility] Comment on above: LDL ATP III [...] 10-28-2021 Cholesterol in VLDL [Mass/Vol] 21 mg/dL [facility] Color Auto (U)Ordered By: Izzy cory Chucky on 10-28-2021 Color (U) Yellow Yellow [facility] Creatine kinase [Enzymatic a ctivity/volume] in Serum or PlasmaOrdered By: Nguyễn Langston on 10-28-2021 CK [Catalytic activity/Vol] 58 U/L [facility] Creatinine and Glomerular fi ltration rate.predicted panel (S/P/Bld)Ordered By: Nguyễn Langston on 10-28-2021 Creatinine [Mass/Vol] 0.88 mg/dL 0.44-1.03 [facility] Digoxin [Mass/volume] in Ser um or PlasmaOrdered By: Nguyễn Langston on 10-28-2021 Digoxin [Mass/Vol] 1.0 ng/mL 0.9-2.0 [facility] Comment on above: Last dose: - Eosinophils Auto (Bld) [#/Vo l]Ordered By: Nguyễn Langston on 10-28-2021 Eosinophils (Bld) [#/Vol] 0.0 10*3/uL 0.0-0.45 [facility] Eosinophils/100 WBC Auto (Bl d)Ordered By: Nguyễn Langston on 10-28-2021 Eosinophils/100 WBC (Bld) 0.3 % . [facility] Erythrocyte distribution wid th Auto (RBC) [Ratio]Ordered By: Nguyễn Langston on 10-28-2021 Erythrocyte distribution width (RBC) [Ratio] 13.1 % 11.9-15.3 [facility] Erythrocyte sedimentation ra te by Photometric methodOrdered By: Jana Madrid on 10-28-2021 ESR Photometric method (Bld) [Velocity] 24 mm/hr 0-29 [facility] Estimated glomerular filtrat ion rate (GFR) non- AmericanOrdered By: Nguyễn Langston on 10-28-2021 GFR/1.73 sq M.predicted among non-blacks MDRD (S/P/Bld) [Vol rate/Area] > 60 mL/Min [facility] Globulin Calc (S) [Mass/Vol] Ordered By: Stephanie Locke on 10-28-2021 Globulin (S) [Mass/Vol] 3.7 g/dL [facility] Glucose mean value [Mass/vol ume] in Blood Estimated from glycated hemoglobinOrdered By: Ashely Adan on 10-28-2021 Average glucose Estimated from glycated hemoglobin (Bld) [Mass/Vol] 137 mg/dL [facility] Hematocrit Auto (Bld) [Volum e fraction]Ordered By: Nguyễn Langston on 10-28-2021 Hematocrit (Bld) [Volume fraction] 43.8 % 34.0-46.4 [facility] Hemoglobin A1c percentageOrd ered By: Ashely Adan on 10-28-2021 HbA1c (Bld) [Mass fraction] 6.4 % 4.3-5.6 [facility] Comment on above: Increased risk for d iabetes: 5.7 - 6.4 diabetes: >6.4 glycemic control for adults with diabetes: <7.0 Increased risk for d iabetes: 5.7 - 6.4diabetes: >6.4glycemic control for adults with diabetes: <7.0 Ketones Auto test strip (U) [Mass/Vol]Ordered By: Stephanie Locke on 10-28-2021 Ketones (U) [Mass/Vol] Trace Negative [facility] - Chemistry and C hemistry - challengeOrdered By: Nguyễn Langston on 10-28-2021 Cobalamin (Vitamin B12) [Mass/Vol] 2953 pg/mL 180-914 [facility] Magnesium [Mass/Vol] 2.2 mg/dL 1.6-2.6 [facility] - Chemistry and C hemistry - challengeOrdered By: Stephanie Locke on 10-28-2021 Natriuretic peptide B (Bld) [Mass/Vol] 75.0 pg/mL 5-100 [facility] - CoagulationOrde red By: Stephanie Locke on 10-28-2021 PT Coag (PPP) [Time] 30.7 s 9.0-12.9 [facility] - Hematology and Cell countsOrdered By: Nguyễn Langston on 10-28-2021 Nucleated RBC/100 WBC (Bld) [Ratio] 0.1 % 0-0.5 [facility] Lymphocytes Auto (Bld) [#/Vo l]Ordered By: Nguyễn Langston on 10-28-2021 Lymphocytes (Bld) [#/Vol] 1.3 10*3/uL 1.00-4.8 [facility] Lymphocytes/100 WBC Auto (Bl d)Ordered By: Nguyễn Langston on 10-28-2021 Lymphocytes/100 WBC (Bld) 18.0 % . [facility] MCH Auto (RBC) [Entitic mass ]Ordered By: Nguyễn Langston on 10-28-2021 MCH (RBC) [Entitic mass] 32.1 pg 24.7-34.3 [facility] MCHC Auto (RBC) [Mass/Vol]Or dered By: Nguyễn Langston on 10-28-2021 MCHC (RBC) [Mass/Vol] 33.4 g/dL 32.0-35.0 [facility] MCV Auto (RBC) [Entitic vol] Ordered By: Nguyễn Langston on 10-28-2021 MCV (RBC) [Entitic vol] 96.1 fL 80-100 [facility] Monocytes Auto (Bld) [#/Vol] Ordered By: Nguyễn Langston on 10-28-2021 Monocytes (Bld) [#/Vol] 0.8 10*3/uL 0.0-0.8 [facility] Monocytes/100 WBC Auto (Bld) Ordered By: Nguyễn Langston on 10-28-2021 Monocytes/100 WBC (Bld) 11.9 % . [facility] Neutrophils Auto (Bld) [#/Vo l]Ordered By: Nguyễn Langston on 10-28-2021 Neutrophils (Bld) [#/Vol] 4.9 10*3/uL 1.8-7.7 [facility] Neutrophils/100 WBC Auto (Bl d)Ordered By: Nguyễn Langston on 10-28-2021 Neutrophils/100 WBC (Bld) 69.5 % . [facility] Nitrite Test strip Ql (U)Ord ered By: Stephanie Locke on 10-28-2021 Nitrite Ql (U) Negative Negative [facility] No Panel InformationOrdered By: Nguyễn Langston on 10-28-2021 25-Hydroxy Vitamin D Total 46.5 ng/mL 30-100 [facility] Comment on above: VITAMIN D STATUS [...] 96(7):1911-30. Estimated GFR () > 60 mL/Min [facility] Comment on above: GFR estimated refere nce range: According to KDOQI guidelines, <60 ml/min/1.73m2 is sufficient to diagnose a patient with chronic kidney disease. Pharmacy Creatinine Clearance (Chem 56.85 [facility] Platelet mean volume Auto (B ld) [Entitic vol]Ordered By: Nguyễn Langston on 10-28-2021 Platelet mean volume (Bld) [Entitic vol] 8.4 fL 6.3-10.7 [facility] Platelet poor plasma interna tional normalized ratio (INR) by coagulation assay (relatOrdered By: Stephanie Locke on 10-28-2021 INR Coag (PPP) [Relative time] 2.7 {INR} [facility] Comment on above: INR Therapeutic Rang [...] 10-28-2021 Platelets (Bld) [#/Vol] 229 10*3/uL 150-450 [facility] Protein Auto test strip (U) [Mass/Vol]Ordered By: Stephanie Locke on 10-28-2021 Protein (U) [Mass/Vol] Negative Negative [facility] Protein [Mass/volume] in Ser um or PlasmaOrdered By: Stephnaie Locke on 10-28-2021 Protein [Mass/Vol] 7.6 g/dL 6.1-7.9 [facility] RBC Auto (Bld) [#/Vol]Ordere d By: Nguyễn Langston on 10-28-2021 RBC (Bld) [#/Vol] 4.56 10*6/uL 3.60-5.00 [facility] Serum or plasma alanine owusu otransferase measurement without P-5'-P (enzymatic activiOrdered By: Stephanie Locke on 10-28-2021 ALT No additional P-5'-P [Catalytic activity/Vol] 21 U/L 10-60 [facility] Serum or plasma albumin/glob ulin mass ratioOrdered By: Stephanie Locke on 10-28-2021 Albumin/Globulin [Mass ratio] 1.1 {ratio} [facility] Serum or plasma alkaline dulce maria sphatase measurement (enzymatic activity/volume)Ordered By: Stephanie Locke on 10-28-2021 ALP [Catalytic activity/Vol] 57 U/L 32-92 [facility] Serum or plasma aspartate am inotransferase measurement (enzymatic activity/volume)Ordered By: Stephanie Locke on 10-28-2021 AST [Catalytic activity/Vol] 25 U/L 10-42 [facility] Serum or plasma calcium silva urement (mass/volume)Ordered By: Nguyễn Langston on 10-28-2021 Calcium [Mass/Vol] 8.8 mg/dL 8.2-10.2 [facility] Serum or plasma chloride hector surement (moles/volume)Ordered By: Nguyễn Langston on 10-28-2021 Chloride [Moles/Vol] 98 mmol/L 95-114 [facility] Serum or plasma glucose silva urement (mass/volume)Ordered By: Nguyễn Langston on 07-22-2022 Glucose [Mass/Vol] 121 mg/dL 70-100 [facility] Comment on above: ADA recommended refe [...] Cholesterol in HDL [Mass/Vol] 50 mg/dL 35-85 [facility] Comment on above: HDL CHOL ATP-III CLA SSIFICATION Cardiovascular Risk HDL > or equal to 60 mg/dL LOW HDL < 40 mg/dL HIGH HDL CHOL ATP-III CLA SSIFICATION Cardiovascular RiskHDL > or equal to 60 mg/dL LOWHDL < 40 mg/dL HIGH Serum or plasma potassium me asurement (moles/volume)Ordered By: Nguyễn Langston on 10-28-2021 Potassium [Moles/Vol] 4.3 mmol/L 3.5-5.1 [facility] Serum or plasma sodium measu rement (moles/volume)Ordered By: Nguyễn Langston on 10-28-2021 Sodium [Moles/Vol] 134 mmol/L 136-146 [facility] Serum or plasma total biliru bin measurement (mass/volume)Ordered By: Stephanie Locke on 10-28-2021 Bilirubin [Mass/Vol] 0.8 mg/dL 0.3-1.2 [facility] Serum or plasma total carbon dioxide measurement (moles/volume)Ordered By: Nguyễn Langston on 10-28-2021 CO2 [Moles/Vol] 25.0 mmol/L 22.0-30.0 [facility] Serum or plasma total choles terol/high density lipoprotein (HDL) cholesterol mass ratOrdered By: Ashely Adan on 10-28-2021 Cholesterol.total/Chol esterol in HDL [Mass ratio] 4.6 {ratio} <5.0 [facility] Serum or plasma urea nitroge n measurement (mass/volume)Ordered By: Nguyễn Langston on 10-28-2021 Urea nitrogen [Mass/Vol] 27 mg/dL 9-23 [facility] Specific gravity Auto test s trip (U) [Rel density]Ordered By: Stephanie Locke on 10-28-2021 Specific gravity (U) [Rel density] 1.012 1.001-1.03 0 [facility] TSH DL <= 0.005 mIU/L QnOrde red By: Nguyễn Langston on 10-28-2021 TSH Qn 1.93 m[IU]/L 0.45-5.33 [facility] Thyroxine (T4) free [Mass/vo lume] in Serum or PlasmaOrdered By: Nguyễn Langston on 10-28-2021 Free T4 [Mass/Vol] 1.04 ng/dL 0.61-1.12 [facility] Triglyceride [Mass/volume] i n Serum or PlasmaOrdered By: Ashely Adan on 10-28-2021 Triglyceride [Mass/Vol] 108 mg/dL 35-149 [facility] Comment on above: TRIG ATP III [...] High sensitivity method [Mass/Vol] 13 pg/mL 0-15 [facility] Urine clarity by refractomet ry automatedOrdered By: Stephanie Locke on 10-28-2021 Clarity Refractometry automated (U) Clear Clear [facility] Urine glucose measurement by automated test strip (mass/volume)Ordered By: Stephanie Locke on 10-28-2021 Glucose Auto test strip (U) [Mass/Vol] Normal mg/dL Normal [facility] Urine hemoglobin detection b y automated test stripOrdered By: Stephanie Locke on 10-28-2021 Hemoglobin Auto test strip Ql (U) Negative Negative [facility] Urine leukocyte esterase det ection by automated test stripOrdered By: Stephanie Locke on 10-28-2021 Leukocyte esterase Auto test strip Ql (U) Negative Negative [facility] Urobilinogen Auto test strip (U) [Mass/Vol]Ordered By: Stephanie Locke on 10-28-2021 Urobilinogen (U) [Mass/Vol] Normal mg/dL Normal [facility] pH Auto test strip (U)Ordere d By: Stephanie Locke on 10-28-2021 pH (U) 6.0 [pH] 5.0-9.0 [facility] Activated partial thrombopla stin time (aPTT) in platelet poor plasma by coagulation aOrdered By: Myron Villarreal on 10-25-2021 aPTT Coag (PPP) [Time] 44.9 s 25.1-36.5 [facility] Albumin [Mass/volume] in Ser um or PlasmaOrdered By: Myron Villarreal on 10-25-2021 Albumin [Mass/Vol] 4.1 g/dL 3.2-5.5 [facility] Basophils Auto (Bld) [#/Vol] Ordered By: Myron Villarreal on 10-25-2021 Basophils (Bld) [#/Vol] 0.1 10*3/uL 0.0-0.2 [facility] Basophils/100 WBC Auto (Bld) Ordered By: Myron Villarreal on 10-25-2021 Basophils/100 WBC (Bld) 0.9 % . [facility] Blood hemoglobin measurement (mass/volume)Ordered By: Myron Villarreal on 10-25-2021 Hemoglobin (Bld) [Mass/Vol] 15.8 g/dL 11.8-15.4 [facility] Blood leukocytes automated c ount (number/volume)Ordered By: Myron Villarreal on 10-25-2021 WBC (Bld) [#/Vol] 9.4 10*3/uL 4.5-11.0 [facility] Creatine kinase [Enzymatic a ctivity/volume] in Serum or PlasmaOrdered By: Myron Villarreal on 10-25-2021 CK [Catalytic activity/Vol] 64 U/L 22-269 [facility] Creatinine and Glomerular fi ltration rate.predicted panel (S/P/Bld)Ordered By: Myron Villarreal on 10-25-2021 Creatinine [Mass/Vol] 1.02 mg/dL 0.44-1.03 [facility] Eosinophils Auto (Bld) [#/Vo l]Ordered By: Myron Villarreal on 10-25-2021 Eosinophils (Bld) [#/Vol] 0.1 10*3/uL 0.0-0.45 [facility] Eosinophils/100 WBC Auto (Bl d)Ordered By: Myron Villarreal on 10-25-2021 Eosinophils/100 WBC (Bld) 1.0 % . [facility] Erythrocyte distribution wid th Auto (RBC) [Ratio]Ordered By: Myron Villarreal on 10-25-2021 Erythrocyte distribution width (RBC) [Ratio] 13.0 % 11.9-15.3 [facility] Estimated glomerular filtrat ion rate (GFR) non- AmericanOrdered By: Myron Villarreal on 10-25-2021 GFR/1.73 sq M.predicted among non-blacks MDRD (S/P/Bld) [Vol rate/Area] 51 mL/Min [facility] Globulin Calc (S) [Mass/Vol] Ordered By: Myron Villarreal on 10-25-2021 Globulin (S) [Mass/Vol] 3.7 g/dL [facility] Glucose Glucometer (BldC) [M ass/Vol]Ordered By: Guillermo Sanders on 10-25-2021 Glucose [Mass/Vol] 143 mg/dL [facility] Comment on above: Random Glucose Refer ence Range is dependent on time and content of last meal. Glucose of more than 200 mg/dL in a nonstressed, ambulatory subject supports the diagnosis of Diabetes Mellitus. Hematocrit Auto (Bld) [Volum e fraction]Ordered By: Myron Villarreal on 10-25-2021 Hematocrit (Bld) [Volume fraction] 47.4 % 34.0-46.4 [facility] - CoagulationOrde red By: Myron Villarreal on 10-25-2021 PT Coag (PPP) [Time] 29.8 s 9.0-12.9 [facility] - Hematology and Cell countsOrdered By: Myron Villarreal on 10-25-2021 Nucleated RBC/100 WBC (Bld) [Ratio] 0.0 % 0-0.5 [facility] Lymphocytes Auto (Bld) [#/Vo l]Ordered By: Myron Villarreal on 10-25-2021 Lymphocytes (Bld) [#/Vol] 1.6 10*3/uL 1.00-4.8 [facility] Lymphocytes/100 WBC Auto (Bl d)Ordered By: Myron Villarreal on 10-25-2021 Lymphocytes/100 WBC (Bld) 16.9 % . [facility] MCH Auto (RBC) [Entitic mass ]Ordered By: Myron Villarreal on 10-25-2021 MCH (RBC) [Entitic mass] 32.1 pg 24.7-34.3 [facility] MCHC Auto (RBC) [Mass/Vol]Or dered By: Myron Villarreal on 10-25-2021 MCHC (RBC) [Mass/Vol] 33.4 g/dL 32.0-35.0 [facility] MCV Auto (RBC) [Entitic vol] Ordered By: Myron Villarreal on 10-25-2021 MCV (RBC) [Entitic vol] 96.1 fL 80-100 [facility] Monocytes Auto (Bld) [#/Vol] Ordered By: Myron Villarreal on 10-25-2021 Monocytes (Bld) [#/Vol] 1.1 10*3/uL 0.0-0.8 [facility] Monocytes/100 WBC Auto (Bld) Ordered By: Myron Villarreal on 10-25-2021 Monocytes/100 WBC (Bld) 11.4 % . [facility] Neutrophils Auto (Bld) [#/Vo l]Ordered By: Myron Villarreal on 10-25-2021 Neutrophils (Bld) [#/Vol] 6.5 10*3/uL 1.8-7.7 [facility] Neutrophils/100 WBC Auto (Bl d)Ordered By: Myron Villarreal on 10-25-2021 Neutrophils/100 WBC (Bld) 69.8 % . [facility] No Panel InformationOrdered By: Myron Villarreal on 10-25-2021 Estimated GFR () > 60 mL/Min [facility] Comment on above: GFR estimated refere nce range: According to KDOQI guidelines, <60 ml/min/1.73m2 is sufficient to diagnose a patient with chronic kidney disease. Pharmacy Creatinine Clearance (Chem N/A [facility] Platelet mean volume Auto (B ld) [Entitic vol]Ordered By: Myron Villarreal on 10-25-2021 Platelet mean volume (Bld) [Entitic vol] 8.6 fL 6.3-10.7 [facility] Platelet poor plasma interna tional normalized ratio (INR) by coagulation assay (relatOrdered By: Myron Villarreal on 10-25-2021 INR Coag (PPP) [Relative time] 2.6 {INR} [facility] Comment on above: INR Therapeutic Rang [...] 10-25-2021 Platelets (Bld) [#/Vol] 226 10*3/uL 150-450 [facility] Protein [Mass/volume] in Ser um or PlasmaOrdered By: Myron Villarreal on 10-25-2021 Protein [Mass/Vol] 7.8 g/dL 6.1-7.9 [facility] RBC Auto (Bld) [#/Vol]Ordere d By: Myron Villarreal on 10-25-2021 RBC (Bld) [#/Vol] 4.93 10*6/uL 3.60-5.00 [facility] Serum or plasma alanine owusu otransferase measurement without P-5'-P (enzymatic activiOrdered By: Myron Villarreal on 10-25-2021 ALT No additional P-5'-P [Catalytic activity/Vol] 19 U/L 10-60 [facility] Serum or plasma albumin/glob ulin mass ratioOrdered By: Myron Villarreal on 10-25-2021 Albumin/Globulin [Mass ratio] 1.1 {ratio} [facility] Serum or plasma alkaline dulce maria sphatase measurement (enzymatic activity/volume)Ordered By: Myron Villarreal on 10-25-2021 ALP [Catalytic activity/Vol] 69 U/L 32-92 [facility] Serum or plasma aspartate am inotransferase measurement (enzymatic activity/volume)Ordered By: Myron Villarreal on 10-25-2021 AST [Catalytic activity/Vol] 28 U/L 10-42 [facility] Serum or plasma calcium silva urement (mass/volume)Ordered By: Myron Villarreal on 10-25-2021 Calcium [Mass/Vol] 10.0 mg/dL 8.2-10.2 [facility] Serum or plasma chloride hector surement (moles/volume)Ordered By: Myron Villarreal on 10-25-2021 Chloride [Moles/Vol] 96 mmol/L 95-114 [facility] Serum or plasma creatine kin ase MB (CKMB)/total creatine kinase (CK) ratio by calculaOrdered By: Myron Villarreal on 10-25-2021 CK.MB Calc [Catalytic fraction] 3.9 % 0.00-2.50 [facility] Serum or plasma creatine kin ase MB measurement (mass/volume)Ordered By: Myron Villarreal on 10-25-2021 CK.MB [Mass/Vol] 2.5 ng/mL 0.6-6.3 [facility] Serum or plasma glucose silva urement (mass/volume)Ordered By: Myron Villarreal on 10-25-2021 Glucose [Mass/Vol] 120 mg/dL 70-100 [facility] Comment on above: ADA recommended refe [...] on 10-25-2021 Potassium [Moles/Vol] 4.3 mmol/L 3.5-5.1 [facility] Serum or plasma sodium measu rement (moles/volume)Ordered By: Myron Villarreal on 10-25-2021 Sodium [Moles/Vol] 134 mmol/L 136-146 [facility] Serum or plasma total biliru bin measurement (mass/volume)Ordered By: Myron Villarreal on 10-25-2021 Bilirubin [Mass/Vol] 0.7 mg/dL 0.3-1.2 [facility] Serum or plasma total carbon dioxide measurement (moles/volume)Ordered By: Myron Villarreal on 10-25-2021 CO2 [Moles/Vol] 24.8 mmol/L 22.0-30.0 [facility] Serum or plasma urea nitroge n measurement (mass/volume)Ordered By: Myron Villarreal on 10-25-2021 Urea nitrogen [Mass/Vol] 19 mg/dL 9- [facility] Troponin I.cardiac [Mass/vol ume] in Serum or Plasma by High sensitivity methodOrdered By: Myron Villarreal on 10-25-2021 Troponin I.cardiac High sensitivity method [Mass/Vol] 16 pg/mL 0-15 [facility] Urine culture routineOrdered By: Daily Hart on 10-23-2021 Bacteria identified Cx Nom (U) Enterococcus faecalis [facility] Albumin [Mass/volume] in Ser um or PlasmaOrdered By: Daily Hart on 10-21-2021 Albumin [Mass/Vol] 4.2 g/dL 3.2-5.5 [facility] Automated erythrocytes count in urine sediment (number/area)Ordered By: Daily Hart on 10-21-2021 RBC Auto (Urine sed) [#/Area] 0-1 [HPF] 0-4 [facility] Automated leukocytes count i n urine sediment (number/area)Ordered By: Daily Tanner on 10-21-2021 WBC Auto (Urine sed) [#/Area] 50-100 [HPF] 0-4 [facility] Basophils Auto (Bld) [#/Vol] Ordered By: Daily Sharmalilianeore on 10-21-2021 Basophils (Bld) [#/Vol] 0.1 10*3/uL 0.0-0.2 [facility] Basophils/100 WBC Auto (Bld) Ordered By: Daily Choiore on 10-21-2021 Basophils/100 WBC (Bld) 1.0 % . [facility] Bilirubin Test strip Ql (U)O rdered By: Daily Hart on 10-21-2021 Bilirubin Ql (U) Negative Negative [facility] Blood hemoglobin measurement (mass/volume)Ordered By: Daily Hart on 10-21-2021 Hemoglobin (Bld) [Mass/Vol] 16.0 g/dL 11.8-15.4 [facility] Blood leukocytes automated c ount (number/volume)Ordered By: Daily Hart on 10-21-2021 WBC (Bld) [#/Vol] 6.8 10*3/uL 4.5-11.0 [facility] Color Auto (U)Ordered By: Jacqueline Hart on 10-21-2021 Color (U) Yellow Yellow [facility] Creatinine and Glomerular fi ltration rate.predicted panel (S/P/Bld)Ordered By: Daily Hart on 10-21-2021 Creatinine [Mass/Vol] 0.96 mg/dL 0.44-1.03 [facility] Digoxin [Mass/volume] in Ser um or PlasmaOrdered By: Daily Hart on 10-21-2021 Digoxin [Mass/Vol] 0.6 ng/mL 0.9-2.0 [facility] Comment on above: Last dose: - Eosinophils Auto (Bld) [#/Vo l]Ordered By: Daily Hart on 10-21-2021 Eosinophils (Bld) [#/Vol] 0.0 10*3/uL 0.0-0.45 [facility] Eosinophils/100 WBC Auto (Bl d)Ordered By: Daily Hart on 10-21-2021 Eosinophils/100 WBC (Bld) 0.7 % . [facility] Erythrocyte distribution wid th Auto (RBC) [Ratio]Ordered By: Daily Hart on 10-21-2021 Erythrocyte distribution width (RBC) [Ratio] 13.0 % 11.9-15.3 [facility] Estimated glomerular filtrat ion rate (GFR) non- AmericanOrdered By: Daily Hart on 10-21-2021 GFR/1.73 sq M.predicted among non-blacks MDRD (S/P/Bld) [Vol rate/Area] 55 mL/Min [facility] Globulin Calc (S) [Mass/Vol] Ordered By: Dailystanislav Hart on 10-21-2021 Globulin (S) [Mass/Vol] 3.9 g/dL [facility] Hematocrit Auto (Bld) [Volum e fraction]Ordered By: Dailystanislav Hart on 10-21-2021 Hematocrit (Bld) [Volume fraction] 47.9 % 34.0-46.4 [facility] Ketones Auto test strip (U) [Mass/Vol]Ordered By: Dailystanislav Hart on 10-21-2021 Ketones (U) [Mass/Vol] Negative [facility] and C hemistry - challengeOrdered By: Dailystanislav Hart on 10-21-2021 Natriuretic peptide B (Bld) [Mass/Vol] 76.0 pg/mL 5-100 [facility] - Hematology and Cell countsOrdered By: Daily Hart on 10-21-2021 Nucleated RBC/100 WBC (Bld) [Ratio] 0.0 % 0-0.5 [facility] - UrinalysisOrder ed By: Daily Hart on 10-21-2021 Hyaline casts LM Ql (Urine sed) 0-8 [LPF] 0-8 [facility] Lymphocytes Auto (Bld) [#/Vo l]Ordered By: Dailystanislav Hart on 10-21-2021 Lymphocytes (Bld) [#/Vol] 1.6 10*3/uL 1.00-4.8 [facility] Lymphocytes/100 WBC Auto (Bl d)Ordered By: Daily Sharmaimore on 10-21-2021 Lymphocytes/100 WBC (Bld) 23.4 % . [facility] MCH Auto (RBC) [Entitic mass ]Ordered By: Daily Sharmaimore on 10-21-2021 MCH (RBC) [Entitic mass] 32.3 pg 24.7-34.3 [facility] MCHC Auto (RBC) [Mass/Vol]Or dered By: Daily Bullimore on 10-21-2021 MCHC (RBC) [Mass/Vol] 33.4 g/dL 32.0-35.0 [facility] MCV Auto (RBC) [Entitic vol] Ordered By: Daily Sharmaimore on 10-21-2021 MCV (RBC) [Entitic vol] 96.8 fL 80-100 [facility] Monocytes Auto (Bld) [#/Vol] Ordered By: Daily Sharmaimore on 10-21-2021 Monocytes (Bld) [#/Vol] 0.5 10*3/uL 0.0-0.8 [facility] Monocytes/100 WBC Auto (Bld) Ordered By: Daily Sharmaimore on 10-21-2021 Monocytes/100 WBC (Bld) 7.5 % . [facility] Neutrophils Auto (Bld) [#/Vo l]Ordered By: Daily Sharmaimore on 10-21-2021 Neutrophils (Bld) [#/Vol] 4.6 10*3/uL 1.8-7.7 [facility] Neutrophils/100 WBC Auto (Bl d)Ordered By: Daily Sharmaimore on 10-21-2021 Neutrophils/100 WBC (Bld) 67.4 % . [facility] Nitrite Test strip Ql (U)Ord ered By: Daily Hart on 10-21-2021 Nitrite Ql (U) Negative Negative [facility] No Panel InformationOrdered By: Daily Hart on 10-21-2021 Estimated GFR () > 60 mL/Min [facility] Comment on above: GFR estimated refere nce range: According to KDOQI guidelines, <60 ml/min/1.73m2 is sufficient to diagnose a patient with chronic kidney disease. Pharmacy Creatinine Clearance (Chem 41.83 [facility] Platelet mean volume Auto (B ld) [Entitic vol]Ordered By: Daily Hart on 10-21-2021 Platelet mean volume (Bld) [Entitic vol] 8.7 fL 6.3-10.7 [facility] Platelets Auto (Bld) [#/Vol] Ordered By: Daily Hart on 10-21-2021 Platelets (Bld) [#/Vol] 230 10*3/uL 150-450 [facility] Protein Auto test strip (U) [Mass/Vol]Ordered By: [facility] on 10-21-2021 Protein (U) [Mass/Vol] Negative Negative [facility] Protein [Mass/volume] in Ser um or PlasmaOrdered By: Dailystanislav [facility] on 10-21-2021 Protein [Mass/Vol] 8.1 g/dL 6.1-7.9 [facility] RBC Auto (Bld) [#/Vol]Ordere d By: Daily Hart on 10-21-2021 RBC (Bld) [#/Vol] 4.95 10*6/uL 3.60-5.00 [facility] Serum or plasma alanine owusu otransferase measurement without P-5'-P (enzymatic activiOrdered By: Daily Hart on 10-21-2021 ALT No additional P-5'-P [Catalytic activity/Vol] 19 U/L 10-60 [facility] Serum or plasma albumin/glob ulin mass ratioOrdered By: [facility] on 10-21-2021 Albumin/Globulin [Mass ratio] 1.1 {ratio} [facility] Serum or plasma alkaline dulce maria sphatase measurement (enzymatic activity/volume)Ordered By: Daily [facility] on 10-21-2021 ALP [Catalytic activity/Vol] 76 U/L 32-92 [facility] Serum or plasma aspartate am inotransferase measurement (enzymatic activity/volume)Ordered By: Dailystanislav [facility] on 10-21-2021 AST [Catalytic activity/Vol] 27 U/L 10-42 [facility] Serum or plasma calcium silva urement (mass/volume)Ordered By: Daily Hart on 10-21-2021 Calcium [Mass/Vol] 9.6 mg/dL 8.2-10.2 [facility] Serum or plasma chloride hector surement (moles/volume)Ordered By: Daily Hart on 10-21-2021 Chloride [Moles/Vol] 98 mmol/L 95-114 [facility] Serum or plasma glucose silva urement (mass/volume)Ordered By: Daily Hart on 10-21-2021 Glucose [Mass/Vol] 120 mg/dL 70-100 [facility] Comment on above: ADA recommended refe [...] on 10-21-2021 Potassium [Moles/Vol] 3.9 mmol/L 3.5-5.1 [facility] Serum or plasma sodium measu rement (moles/volume)Ordered By: Daily Hart on 10-21-2021 Sodium [Moles/Vol] 138 mmol/L 136-146 [facility] Serum or plasma total biliru bin measurement (mass/volume)Ordered By: Daily Hart on 10-21-2021 Bilirubin [Mass/Vol] 0.6 mg/dL 0.3-1.2 [facility] Serum or plasma total carbon dioxide measurement (moles/volume)Ordered By: Daily Hart on 10-21-2021 CO2 [Moles/Vol] 29.8 mmol/L 22.0-30.0 [facility] Serum or plasma urea nitroge n measurement (mass/volume)Ordered By: Daily Hart on 10-21-2021 Urea nitrogen [Mass/Vol] 22 mg/dL 9-23 [facility] Specific gravity Auto test s trip (U) [Rel density]Ordered By: Daily Hart on 10-21-2021 Specific gravity (U) [Rel density] 1.006 1.001-1.03 0 [facility] Squamous epithelial cells de tection in urine sediment by light microscopyOrdered By: Daily Hart on 10-21-2021 Epithelial cells.squamous LM Ql (Urine sed) None seen [HPF] 0-2 [facility] Troponin I.cardiac [Mass/vol ume] in Serum or Plasma by High sensitivity methodOrdered By: Daily Hart on 10-21-2021 Troponin I.cardiac High sensitivity method [Mass/Vol] 16 pg/mL 0-15 [facility] Urine bacteria detection by automated methodOrdered By: Daily Hart on 10-21-2021 Bacteria Auto Ql (U) None seen None Seen [facility] Urine clarity by refractomet ry automatedOrdered By: Daily Hart on 10-21-2021 Clarity Refractometry automated (U) Clear Clear [facility] Urine glucose measurement by automated test strip (mass/volume)Ordered By: Daily Hart on 10-21-2021 Glucose Auto test strip (U) [Mass/Vol] Normal mg/dL Normal [facility] Urine hemoglobin detection b y automated test stripOrdered By: Daily Hart on 10-21-2021 Hemoglobin Auto test strip Ql (U) Negative Negative [facility] Urine leukocyte esterase det ection by automated test stripOrdered By: Daily Hart on 10-21-2021 Leukocyte esterase Auto test strip Ql (U) 4+ Negative [facility] Urobilinogen Auto test strip (U) [Mass/Vol]Ordered By: Daily Hart on 10-21-2021 Urobilinogen (U) [Mass/Vol] Normal mg/dL Normal [facility] pH Auto test strip (U)Ordere d By: Daily Hart on 10-21-2021 pH (U) 5.5 [pH] 5.0-9.0 [facility] Covid-19 PCR (CVDTBH)on 10-07 SARS-CoV-2 (COVID-19) RNA CIERA+probe Ql (Unsp spec) Not detected Normal NOT DETECTED [facility] Comment on above: Result Comment: This test is not yet approved or cleared by the [place] FDA. When there are no FDA-approved or cleared tests available, and other criteria are met, FDA can make tests available under an emergency access mechanism called an Emergency Use Authorization (EUA). The EUA for this test is supported by the [place] of Health and Human Service's (HHS's) declaration [...] SARS-CoV-2. Performed By: #### C VDTB #### [facility] [address] [place] [address] Dr. Parth Wilson INFLUENZA A AND B AGon 10-20 INFLUENZA A AG Negative Normal NEGATIVE SEE COMMENT [facility] Comment on above: Performed By: #### I NFLUAB #### [facility] [address] [place] [address] Dr. Parth Wilson INFLUENZA B AG Negative Normal NEGATIVE SEE COMMENT [facility] Comment on above: Performed By: #### I NFLUAB #### [facility] [address] [place] [address] Dr. Parth Wilson INTERNAL CONTROLS Within Normal Limits Normal Wi thin Normal Limits [facility] Comment on above: Performed By: #### I NFLUAB #### [facility] [address] [place] [address] Dr. Parth Wilson Cardiovasc Arrhythmia Result son 09-28-2021 Cardiovasc Arrhythmia Results Reason For Visit Event Monitor: ERIN is here for the application of a 30 day event monitor in office., Diagnosis: syncope and palps Ordering Physician: Dr. Olivarez Enrollment sent to: [facility] Monitor number [id number] applied. Patient will be returning SEFERINO by [...] Appointments Date/TimeProviderSpecialty Site 11/28/2021 08:20 Akhil Lay, [id number] [facility] 2 Tony 250 DO Signatures Electronically signed by : Akhil Olivarez MD; Oct 26 2021 10:03AM EST (Author) [facility] Office Visit (Cardiology)on 09-21-2021 Follow-up visit Diagnoses/Problems [...] my name below, I, Adrianne Mejía LPN. ,[place], attest that this documentation has been prepared [...] TabletTAKE 1 TABLET DAILY DIRECTED. Managed at [facility]. Allergies Medication Motrin TABS Allergy; Hives;; Updated [...] Signs Recorded: 21Sep2021 02:43PM Heart Rate66, Apical Lymdfggm196, RUE, Sitting Axbmgxorh05, RUE, Sitting Height5 ft 2 in Eezsje851 lb BMI Gcmoruirtv07.84 kg/m2 BSA Calculated1.85 Tobacco Useb) No PHQ-2 #1. Over the last 2 weeks have you felt down, depressed or hopeless? (If yes, answer PHQ-9 below)No PHQ-2 #2. Over the last 2 weeks have you felt little interest or pleasure in doing things? (If yes, answer PHQ-9 below)No Fall Screeningb) One or more fall (more content not included)... [facility] Tobacco Screening.on 022 Adult depression screening assessment No [employer]21 DO Work Phone: Fall risk assessment b) One or more fall s in the last year [facility] CEYX 250 DO Work Phone: Tobacco use status CPHS b) No [facility] Timothy messer 250 DO Work Phone: No Panel Informationon 06-30 9.2\S\9.2 Normal 8.2-10.2 [facility] Adiel spicer 600 DO Work Phone: 28.3\S\28.3 Normal 22.0-30.0 [facility] Adiel spicer 600 DO Work Phone: 99\S\99 Normal 95-114 [facility] Adiel spicer 600 DO Work Phone: 4.6\S\4.6 Normal 3.5-5.1 [facility] Adiel spicer 600 DO Work Phone: 138\S\138 Normal 136-146 [facility] Aidel spicer 600 DO Work Phone: > 60 Normal [facility] Adiel spicer 600 DO Work Phone: Comment on above: GFR estimated refere nce range: According to KDOQI guidelines, <60 ml/min/1.73m2 is sufficient to diagnose a patient with chronic kidney disease. 52\S\52 Normal [facility] Adiel spicer 600 DO Work Phone: 1.00\S\1.00 Normal 0.44-1.03 [facility] Adiel spicer 600 DO Work Phone: 22\S\22 Normal 9-23 [facility] Adiel spicer 600 DO Work Phone: 91\S\91 Normal 70-100 [facility] Adiel spicer 600 DO Work Phone: Comment on above: Random Glucose Refer ence Range is dependent on time and content of last meal. Glucose of more than 200 mg/dL in a nonstressed, ambulatory subject supports the diagnosis of Diabetes Mellitus. ADA recommended reference range 24\S\24 Normal 10-42 [facility] Adiel spicer 600 DO Work Phone: 2.98\S\2.98 Normal 0.45-5.33 [facility] 600 DO Work Phone: Comment on above: PERFORMED BY:[facility] [place] [place], [place] [phone] MEDICAL DIRECTORGIULIA VALERIO M.D. Radiologyon 06-30-2021 XR Chest 2 Views Normal [facility] lk 600 DO Work Phone: Tobacco Screening.on 022 Tobacco use status CPHS b) No [facility] Services[facility]iv[facility] ayde 250 DO Work Phone: Affirm DNA Panelon 7 Albina DNA Negative Normal Negative [facility] Comment on above: Result Comment: The AffirmVPII [...] organism are common. Performed By: #### C D:[id number] ####[id number] [place] [address] Gardnerella DNA Positive Abnormal Negative [facility] Comment on above: Performed By: #### C [id number] ####[address] [place] [address] Trichomonas DNA Negative Normal Negative [facility] Comment on above: Performed By: #### C D:[id number] ####[address] [place] [address] Ambulatory Patient Education on 12-22-2016 Ambulatory Patient Education Patient Education MaterialsName: Jesenia Canales Current Date: 12/22/2016 14:33:40 [place] 1935 following sheet(s) are the Patient Education Leaflets for [facility] Jesenia JOb/GynPelvic Organ Prolapse: Surgery for CystoceleCystocele occurs [...] the pelvic organ or organs occurring again? [id number] [employer]. [address] [place] [address], [place] [id number]. All rights reserved. This information is not [...] the pelvic organ or organs occurring again? 6330-4961 [employer]. [address] [place] [address]. All rights reserved. This information is not [...] you'll meet with the anesthesiologist or nurse well service pump equipment operator. He or she can tell you [...] nearby pelvic structures? Trouble urinating? Urinary urgency? [id number] [employer]. [address] [place] [id number]. All rights reserved. This information is not intended as a substitute for professional medical care. Always follow your healthcare professional's instructions. Normal [facility] Gynecology Office/Clinic Not larry 12-22-2016 Gynecology Office/Clinic Note Chief Complaint ConsultationHistory of Present Illness Abnormal vaginal discharge: Yes Pelvic pain: No Spotting: No Vaginal itch/burning/odor: Yes Additional HPI details: 81y/o prolapse. Pt has a pessary. States causes infection. She sees CEMENT SIDE LASTER q 1 months. She want to only [...] Additional Vitals Body Mass Index Measured: 35.59 kg/s3Cyamhxtspe/Plan Cystocele Ordered: [id number] [facility] OFFICE OP VISIT NEW LVL 2 Clinic Rectocele Uterine prolapse Attempting a cube pessary - will call Ashely Villarreal SOLE CEMENTER and see if she can followup with her in 1 wk - have given the patient info on surgery. Patient is very leery regarding surgery due to the anesthesia and she does have cardiac issues - multiple stents Ordered: [id number] [facility] OFFICE OP VISIT NEW LVL 2 Clinic [...] Justin gillespie DO 12/22/16 17:35 EDT Normal [facility] Vital Signs Date Time Vital Sign Value Performing Clinician Facility 09-10-2023 10:17-0400 Body height 157.5 cm Akhil Olivarez MD Work Phone: [facility] 09-10-2023 10:170400 Body mass index (BMI) [Ratio] 37.31 kg/m2 Akhil Olivarez MD Work Phone: [facility] 09-10-2023 10:170400 Body weight 92.53 kg Akhil Olivarez MD Work Phone: [facility] 09-10-2023 10:17-0400 Diastolic blood pressure 68 mm[Hg] Akhil Olivarez MD Work Phone: [facility] 09-10-2023 10:17-0400 Heart rate 93 /min Akhil Olivarez MD Work Phone: [facility] 09-10-2023 10:17-0400 Systolic blood pressure 108 mm[Hg] Akhil Olivarez MD Work Phone: [facility] 07-31-2023 21:15-0400 Diastolic blood pressure 80 mm[Hg] MD Los Chaudhary Work Phone: [facility] 07-31-2023 21:15-0400 Heart rate 94 /min MD Los Chaudhary Work Phone: [facility] 07-31-2023 21:15-0400 Respiratory rate 20 /min MD Los Chaudhary Work Phone: [facility] 07-31-2023 21:15-0400 SaO2% (BldA) [Mass fraction] 97 % MD Los Chaudhary Work Phone: [facility] 07-31-2023 21:15-0400 Systolic blood pressure 136 mm[Hg] MD Los Chaudhary Work Phone: [facility] 07-31-2023 18:10-0400 Body temperature 98.6 [degF] MD Los Chaudhary Work Phone: [facility] 07-31-2023 15:08-0400 Body height 157.48 cm MD Los Chaudhary Work Phone: [facility] 07-31-2023 15:08-0400 Body weight 77.11 kg MD Los Chaudhary Work Phone: [facility] 07-13-2023 09:53-0400 Body height 157.48 cm MD Los Chaudhary Work Phone: [facility] 07-13-2023 09:53-0400 Body temperature 97.9 [degF] MD Los Chaudhary Work Phone: [facility] 07-13-2023 09:53-0400 Body weight 77.11 kg MD Los Chaudhary Work Phone: [facility] 07-13-2023 09:53-0400 Diastolic blood pressure 62 mm[Hg] MD Los Chaudhary Work Phone: [facility] 07-13-2023 09:53-0400 Heart rate 103 /min MD Los Chaudhary Work Phone: [facility] 07-13-2023 09:53-0400 Respiratory rate 16 /min MD Los Chaudhary Work Phone: [facility] 07-13-2023 09:53-0400 SaO2% (BldA) [Mass fraction] 98 % MD Los Chaudhary Work Phone: [facility] 07-13-2023 09:53-0400 Systolic blood pressure 103 mm[Hg] MD Los Chaudhary Work Phone: [facility] 07-12-2023 16:25-0400 Body height 127 cm MD Los Chaudhary Work Phone: [facility] 07-12-2023 16:25-0400 Body mass index (BMI) [Ratio] 50.4 kg/m2 MD Los Chaudhary Work Phone: [facility] 07-12-2023 16:25-0400 Body temperature 98.2 [degF] MD Los Chaudhary Work Phone: [facility] 07-12-2023 16:25-0400 Body weight 81.3 kg MD Los Chaudhary Work Phone: [facility] 07-12-2023 16:25-0400 Diastolic blood pressure 89 mm[Hg] MD Los Chaudhary Work Phone: [facility] 07-12-2023 16:25-0400 Heart rate 112 /min MD Los Chaudhary Work Phone: [facility] 07-12-2023 16:25-0400 Respiratory rate 16 /min MD Los Chaudhary Work Phone: [facility] 07-12-2023 16:25-0400 SaO2% (BldA) [Mass fraction] 99 % MD Los Chaudhary Work Phone: [facility] 07-12-2023 16:25-0400 Systolic blood pressure 140 mm[Hg] MD Los Chaudhary Work Phone: [facility] 02-26-2023 13:03-0500 Body height 157.5 cm Mickey James HOSIERY [employer]GER [employer] Work Phone: [facility] 02-26-2023 13:03-0500 Body mass index (BMI) [Ratio] 33.11 kg/m2 Mickey James HOSIERY K[employer]ITTER-MANAGER [employer]BUT[employer] Work Phone: [facility] 02-26-2023 13:03-0500 Body weight 82.1 kg Mickey James HOSIERY KNITTER-MANAGER [employer] Work Phone: [facility] 02-26-2023 13:03-0500 Diastolic blood pressure 74 mm[Hg] Mickey James HOSIERY KNITTER-MANAGER [employer]BUT[employer] Work Phone: [facility] 02-26-2023 13:03-0500 Heart rate 60 /min Mickey James HOSIERY KNITTER-MANAGER [employer] Work Phone: [facility] 02-26-2023 13:03-0500 Systolic blood pressure 138 mm[Hg] Mickey James HOSIERY KNITTER-MANAGER OF DIST[employer]BUTION Work Phone: [facility] 12-13-2022 10:03-0400 Body temperature 97.11 [degF] Shweta Sol MD Work Phone: [facility] 12-13-2022 10:03-0400 Diastolic blood pressure 65 mm[Hg] Shweta Sol MD Work Phone: [facility] 12-13-2022 10:03-0400 Heart rate 60 /min Shweta Sol MD Work Phone: [facility] 12-13-2022 10:03-0400 Systolic blood pressure 165 mm[Hg] Shweta Sol MD Work Phone: [facility] 11-29-2022 14:52-0400 Body height 157.48 cm Los M Hoy Work Phone: [facility] DO Work Phone: 11-29-2022 14:52-0400 Body mass index (BMI) [Ratio] Medical Reason Not Done Los M Hoy Work Phone: [facility] DO Work Phone: 11-29-2022 14:52-0400 Body temperature 97.7 [degF] Los M Hoy Work Phone: [facility] 250 DO Work Phone: 11-29-2022 14:52-0400 Diastolic blood pressure 84 mm[Hg] Los M Hoy Work Phone: [facility] 250 DO Work Phone: 11-29-2022 14:52-0400 Heart rate 66 /min Los M Hoy Work Phone: [facility] 250 DO Work Phone: 11-29-2022 14:52-0400 Systolic blood pressure 130 mm[Hg] Los M Hoy Work Phone: [facility] 250 DO Work Phone: 11-24-2022 16:00-0400 Body temperature 97.8 [degF] MD Los Chaudhary Work Phone: [facility] 11-24-2022 16:00-0400 Diastolic blood pressure 73 mm[Hg] MD Los Chaudhary Work Phone: [facility] 11-24-2022 16:00-0400 Heart rate 60 /min MD Los Chaudhary Work Phone: [facility] 11-24-2022 16:00-0400 Respiratory rate 16 /min MD Los Chaudhary Work Phone: [facility] 11-24-2022 16:00-0400 SaO2% (BldA) [Mass fraction] 99 % MD Los Chaudhary Work Phone: [facility] 11-24-2022 16:00-0400 Systolic blood pressure 142 mm[Hg] MD Los Chaudhary Work Phone: [facility] 11-24-2022 06:44-0400 Body weight 88.4 kg MD Los Chaudhary Work Phone: [facility] 11-22-2022 11:41-0400 Inhaled oxygen flow rate 6 L/min MD Los Chaudhary Work Phone: [facility] 11-22-2022 10:22-0400 Body height 157.48 cm MD Los Chaudhary Work Phone: [facility] 11-22-2022 10:22-0400 Body mass index (BMI) [Ratio] 36.5 kg/m2 MD Los Chaudhary Work Phone: [facility] 11-17-2022 21:59-0400 Diastolic blood pressure 77 mm[Hg] MD Los Chaudhary Work Phone: [facility] 11-17-2022 21:59-0400 Heart rate 67 /min MD Los Chaudhary Work Phone: [facility] 11-17-2022 21:59-0400 Systolic blood pressure 190 mm[Hg] MD Los Chaudhary Work Phone: [facility] 11-17-2022 21:18-0400 Body temperature 97.7 [degF] MD Mathis Sumannhi Work Phone: [facility] 11-17-2022 21:18-0400 Respiratory rate 16 /min MD Los Chaudhary Work Phone: [facility] 11-17-2022 21:18-0400 SaO2% (BldA) [Mass fraction] 98 % MD Los Chaudhary Work Phone: [facility] 11-17-2022 18:03-0400 Body height 157.48 cm MD Los Chaudhary Work Phone: [facility] 11-17-2022 18:03-0400 Body weight 81.64 kg MD Los Chaudhary Work Phone: [facility] 10-30-2022 11:29-0400 Body height 157.48 cm Los Willy Work Phone: [facility] [employer] 600 DO Work Phone: 10-30-2022 11:29-0400 Body mass index (BMI) [Ratio] 34.57 kg/m2 Los Duran Hoy Work Phone: [facility] 600 DO Work Phone: 10-30-2022 11:29-0400 Body surface area Derived from formula 1.87 m2 Los Duran Hoy Work Phone: [facility] 600 DO Work Phone: 10-30-2022 11:29-0400 Body weight 85.73 kg Los Roger Hoy Work Phone: [facility] 600 DO Work Phone: 10-30-2022 11:29-0400 Diastolic blood pressure 68 mm[Hg] Los Roger Hoy Work Phone: [facility] 600 DO Work Phone: 10-30-2022 11:29-0400 Heart rate 60 /min Los M Hoy Work Phone: [facility] 600 DO Work Phone: 10-30-2022 11:29-0400 Systolic blood pressure 170 mm[Hg] Los M Hoy Work Phone: [facility] 600 DO Work Phone: 09-25-2022 18:30-0400 Diastolic blood pressure 82 mm[Hg] SOLE CEMENTER-C Summer Garibaymer Work Phone: [facility] 09-25-2022 18:30-0400 Heart rate 57 /min SOLE CEMENTER-C Summer Yaw Work Phone: [facility] 09-25-2022 18:30-0400 Respiratory rate 17 /min SOLE CEMENTER-C Summer Garibaymer Work Phone: [facility] 09-25-2022 18:30-0400 SaO2% (BldA) [Mass fraction] 99 % SOLE CEMENTER-C Summer Garibaymer Work Phone: [facility] 09-25-2022 18:30-0400 Systolic blood pressure 132 mm[Hg] SOLE CEMENTER-C Summer Garibaymer Work Phone: [facility] 09-25-2022 13:00-0400 Body temperature 98 [degF] SOLE CEMENTER-C Summer Garibaymer Work Phone: [facility] 09-25-2022 08:58-0400 Body height 157.48 cm SOLE CEMENTER-C Summer Yaw Work Phone: [facility] 09-25-2022 08:58-0400 Body weight 84 kg SOLE CEMENTER-C Summer Yaw Work Phone: [facility] 09-21-2022 14:11-0400 Body height 157.48 cm Los M Hoy Work Phone: [facility] 250 DO Work Phone: 09-21-2022 14:11-0400 Body mass index (BMI) [Ratio] 34.02 kg/m2 Los Duran Hoy Work Phone: [facility] 250 DO Work Phone: 09-21-2022 14:11-0400 Body surface area Derived from formula 1.85 m2 Los Roger Hoy Work Phone: [facility] 250 DO Work Phone: 09-21-2022 14:11-0400 Body weight 84.37 kg Los Roger Hoy Work Phone: [facility] 250 DO Work Phone: 09-21-2022 14:11-0400 Diastolic blood pressure 68 mm[Hg] Los Duran Hoy Work Phone: [facility] 250 DO Work Phone: 09-21-2022 14:11-0400 Heart rate 56 /min Los Duran Hoy Work Phone: [facility] DO Work Phone: 09-21-2022 14:11-0400 Systolic blood pressure 146 mm[Hg] Los Duran Hoy Work Phone: [facility] 250 DO Work Phone: 09-01-2022 14:07-0400 Body height 157.48 cm Los Duran Hoy Work Phone: [facility] 250 DO Work Phone: 09-01-2022 14:07-0400 Body mass index (BMI) [Ratio] 32.74 kg/m2 Los Roger Hoy Work Phone: [facility] 250 DO Work Phone: 09-01-2022 14:07-0400 Body surface area Derived from formula 1.82 m2 Los Roger Hoy Work Phone: [facility] 250 DO Work Phone: 09-01-2022 14:07-0400 Body weight 81.19 kg Los M Hoy Work Phone: [facility] 250 DO Work Phone: 09-01-2022 14:07-0400 Diastolic blood pressure 60 mm[Hg] Los M Hoy Work Phone: [facility] 250 DO Work Phone: 09-01-2022 14:07-0400 Heart rate 54 /min Los M Hoy Work Phone: [facility] 250 DO Work Phone: 09-01-2022 14:07-0400 Systolic blood pressure 150 mm[Hg] Los M Hoy Work Phone: [facility] DO Work Phone: 08-02-2022 13:03-0400 Body height 157.48 cm Los Roger Hoy Work Phone: [facility] 250 DO Work Phone: 08-02-2022 13:03-0400 Body mass index (BMI) [Ratio] 33.47 kg/m2 Los Roger Hoy Work Phone: [facility] 250 DO Work Phone: 08-02-2022 13:03-0400 Body surface area Derived from formula 1.84 m2 Los M Hoy Work Phone: [facility] DO Work Phone: 08-02-2022 13:03-0400 Body weight 83.01 kg Los M Hoy Work Phone: [facility] 250 DO Work Phone: 08-02-2022 13:03-0400 Diastolic blood pressure 58 mm[Hg] Los M Hoy Work Phone: [facility] 250 DO Work Phone: 08-02-2022 13:03-0400 Heart rate 56 /min Los M Hoy Work Phone: [facility] 250 DO Work Phone: 08-02-2022 13:03-0400 Systolic blood pressure 128 mm[Hg] Los M Hoy Work Phone: [facility] 250 DO Work Phone: 07-05-2022 09:29-0400 Body height 157.48 cm Los M Hoy Work Phone: [facility] 250 DO Work Phone: 07-05-2022 09:29-0400 Body mass index (BMI) [Ratio] 32.19 kg/m2 Los M Hoy Work Phone: [facility] 250 DO Work Phone: 07-05-2022 09:29-0400 Body surface area Derived from formula 1.81 m2 Los M Hoy Work Phone: [facility] 250 DO Work Phone: 07-05-2022 09:29-0400 Body weight 79.83 kg Los M Hoy Work Phone: [facility] 250 DO Work Phone: 07-05-2022 09:29-0400 Diastolic blood pressure 60 mm[Hg] Los M Hoy Work Phone: [facility] 250 DO Work Phone: 07-05-2022 09:29-0400 Heart rate 61 /min Los M Hoy Work Phone: [facility] DO Work Phone: 07-05-2022 09:29-0400 Systolic blood pressure 142 mm[Hg] Los M Hoy Work Phone: [facility] DO Work Phone: 02-07-2022 10:11-0400 Body height 157.48 cm Summer Al Yaw Work Phone: [facility] 250 DO Work Phone: 02-07-2022 10:11-0400 Body mass index (BMI) [Ratio] 33.84 kg/m2 Summer S Yaw Work Phone: [facility] 250 DO Work Phone: 02-07-2022 10:11-0400 Body surface area Derived from formula 1.85 m2 Summer S Yaw Work Phone: [facility] 250 DO Work Phone: 02-07-2022 10:11-0400 Body weight 83.92 kg Summer Al Yaw Work Phone: [facility] 250 DO Work Phone: 02-07-2022 10:11-0400 Diastolic blood pressure 50 mm[Hg] Summer S Yaw Work Phone: [facility] 250 DO Work Phone: 02-07-2022 10:11-0400 Heart rate 62 /min Summer S Yaw Work Phone: [facility] 250 DO Work Phone: 02-07-2022 10:11-0400 Systolic blood pressure 104 mm[Hg] Summer S Yaw Work Phone: [facility] 250 DO Work Phone: 01-10-2022 20:30-0400 Diastolic blood pressure 63 mm[Hg] SOLE CEMENTER-C Summer Yaw Work Phone: [facility] 01-10-2022 20:30-0400 Heart rate 69 /min SOLE CEMENTER-C Summer Yaw Work Phone: [facility] 01-10-2022 20:30-0400 Respiratory rate 20 /min SOLE CEMENTER-C Summer Tidwell Work Phone: [facility] 01-10-2022 20:30-0400 SaO2% (BldA) [Mass fraction] 97 % SOLE CEMENTER-C Summer Tidwell Work Phone: [facility] 01-10-2022 20:30-0400 Systolic blood pressure 140 mm[Hg] SOLE CEMENTER-C Summer Tidwell Work Phone: [facility] 01-10-2022 14:51-0400 Body height 157.48 cm SOLE CEMENTER-C Summer Tidwell Work Phone: [facility] 01-10-2022 14:51-0400 Body temperature 97.7 [degF] SOLE CEMENTER-C Summer Tidwell Work Phone: [facility] 01-10-2022 14:51-0400 Body weight 78.75 kg SOLE CEMENTER-C Summer Tidwell Work Phone: [facility] 11-28-2021 08:51-0400 Diastolic blood pressure 60 mm[Hg] Summer Tidwell Work Phone: [facility] 250 DO Work Phone: 11-28-2021 08:51-0400 Systolic blood pressure 152 mm[Hg] Summer Tidwell Work Phone: [facility] 250 DO Work Phone: 11-28-2021 08:22-0400 Body height 157.48 cm Summer Garibaymer Work Phone: [facility] 250 DO Work Phone: 11-28-2021 08:22-0400 Body mass index (BMI) [Ratio] 31.64 kg/m2 Summer Garibaymer Work Phone: [facility] 250 DO Work Phone: 11-28-2021 08:22-0400 Body surface area Derived from formula 1.8 m2 Summer Al Yaw Work Phone: [facility] 250 DO Work Phone: 11-28-2021 08:22-0400 Body weight 78.47 kg Summer Garibaymer Work Phone: [facility] 250 DO Work Phone: 11-28-2021 08:22-0400 Diastolic blood pressure 78 mm[Hg] Summer Al Yaw Work Phone: [facility] 250 DO Work Phone: 11-28-2021 08:22-0400 Heart rate 72 /min Summer Al Yaw Work Phone: [facility] 250 DO Work Phone: 11-28-2021 08:22-0400 Systolic blood pressure 152 mm[Hg] Summer Al Yaw Work Phone: [facility] 250 DO Work Phone: 10-29-2021 12:14-0400 Diastolic blood pressure 68 mm[Hg] SOLE CEMENTER-C Summer Yaw Work Phone: [facility] 10-29-2021 12:14-0400 Heart rate 66 /min SOLE CEMENTER-C Summer Yaw Work Phone: [facility] 10-29-2021 12:14-0400 Respiratory rate 18 /min SOLE CEMENTER-C Summer Yaw Work Phone: [facility] 10-29-2021 12:14-0400 SaO2% (BldA) [Mass fraction] 96 % SOLE CEMENTER-C Summer Yaw Work Phone: [facility] 10-29-2021 12:14-0400 Systolic blood pressure 134 mm[Hg] SOLE CEMENTER-C Summer Yaw Work Phone: [facility] 10-29-2021 03:21-0400 Body temperature 98 [degF] SOLE CEMENTER-C Summer Yaw Work Phone: [facility] 10-28-2021 13:27-0400 0 1 Summer Al Yaw Work Phone: [facility] 250 DO Work Phone: Comment on above: [id number] 10-28-2021 08:00-0400 Body height 157.48 cm SOLE CEMENTER-C Summer Yaw Work Phone: [facility] 10-28-2021 08:00-0400 Body weight 124.2 kg SOLE CEMENTER-C Summer Yaw Work Phone: [facility] 10-28-2021 05:55-0400 Diastolic blood pressure 65 mm[Hg] SOLE CEMENTER-C Summer Yaw Work Phone: [facility] 10-28-2021 05:55-0400 Heart rate 61 /min SOLE CEMENTER-C Summer Yaw Work Phone: [facility] 10-28-2021 05:55-0400 Respiratory rate 18 /min SOLE CEMENTER-C Summer Yaw Work Phone: [facility] 10-28-2021 05:55-0400 SaO2% (BldA) [Mass fraction] 96 % SOLE CEMENTER-C Summer Yaw Work Phone: [facility] 10-28-2021 05:55-0400 Systolic blood pressure 148 mm[Hg] SOLE CEMENTER-C Summer Yaw Work Phone: [facility] 10-28-2021 00:20-0400 Body height 157.48 cm SOLE CEMENTER-C Summer Yaw Work Phone: [facility] 10-28-2021 00:20-0400 Body temperature 98 [degF] SOLE CEMENTER-C Summer Yaw Work Phone: [facility] 10-28-2021 00:20-0400 Body weight 124.73 kg SOLE CEMENTER-C Summer Yaw Work Phone: [facility] 10-25-2021 14:50-0400 Diastolic blood pressure 72 mm[Hg] SOLE CEMENTER-C Summer Yaw Work Phone: [facility] 10-25-2021 14:50-0400 Heart rate 60 /min SOLE CEMENTER-C Summer Yaw Work Phone: [facility] 10-25-2021 14:50-0400 Respiratory rate 18 /min SOLE CEMENTER-C Summer Yaw Work Phone: [facility] 10-25-2021 14:50-0400 SaO2% (BldA) [Mass fraction] 95 % SOLE CEMENTER-C Summer Yaw Work Phone: [facility] 10-25-2021 14:50-0400 Systolic blood pressure 168 mm[Hg] SOLE CEMENTER-C Summer Yaw Work Phone: [facility] 10-21-2021 15:19-0400 Diastolic blood pressure 87 mm[Hg] SOLE CEMENTER-C Summer Yaw Work Phone: [facility] 10-21-2021 15:19-0400 Heart rate 60 /min SOLE CEMENTER-C Summer Yaw Work Phone: [facility] 10-21-2021 15:19-0400 Respiratory rate 18 /min SOLE CEMENTER-C Summer Yaw Work Phone: [facility] 10-21-2021 15:19-0400 SaO2% (BldA) [Mass fraction] 98 % SOLE CEMENTER-C Summer Yaw Work Phone: [facility] 10-21-2021 15:19-0400 Systolic blood pressure 194 mm[Hg] SOLE CEMENTER-C Summer Yaw Work Phone: [facility] 10-21-2021 09:09-0400 Body height 157.48 cm SOLE CEMENTER-C Summer Yaw Work Phone: [facility] 10-21-2021 09:09-0400 Body mass index (BMI) [Ratio] 34.4 kg/m2 SOLE CEMENTER-C Summer Yaw Work Phone: [facility] 10-21-2021 09:09-0400 Body weight 85.3 kg SOLE CEMENTER-C Summer Garibaymer Work Phone: [facility] 10-21-2021 09:08-0400 Body temperature 97.1 [degF] SOLE CEMENTER-C Summer Yaw Work Phone: [facility] 09-21-2021 14:43-0400 Body height 157.48 cm Summer S Yaw Work Phone: [facility] 250 DO Work Phone: 09-21-2021 14:43-0400 Body mass index (BMI) [Ratio] 33.84 kg/m2 Summer S Yaw Work Phone: [facility] 250 DO Work Phone: 09-21-2021 14:43-0400 Body surface area Derived from formula 1.85 m2 Summer S Yaw Work Phone: [facility] 250 DO Work Phone: 09-21-2021 14:43-0400 Body weight 83.92 kg Summer Garibaymer Work Phone: [facility] 250 DO Work Phone: 09-21-2021 14:43-0400 Diastolic blood pressure 62 mm[Hg] Summer S Yaw Work Phone: [facility] 250 DO Work Phone: 09-21-2021 14:43-0400 Heart rate 66 /min Summer S Yaw Work Phone: [facility] 250 DO Work Phone: 09-21-2021 14:43-0400 Systolic blood pressure 138 mm[Hg] Summer S Yaw Work Phone: [facility] 250 DO Work Phone: 04-15-2021 13:39-0500 Body height 157.48 cm Summer Al Yaw Work Phone: [facility] 250 DO Work Phone: 04-15-2021 13:39-0500 Body mass index (BMI) [Ratio] 32.74 kg/m2 uSmmer Al Yaw Work Phone: [facility] 250 DO Work Phone: 04-15-2021 13:39-0500 Body surface area Derived from formula 1.82 m2 Summer Al Yaw Work Phone: [facility] 250 DO Work Phone: 04-15-2021 13:39-0500 Body weight 81.19 kg Summer Al Yaw Work Phone: [facility] 250 DO Work Phone: 04-15-2021 13:39-0500 Diastolic blood pressure 69 mm[Hg] Summer Al Yaw Work Phone: [facility] 250 DO Work Phone: 04-15-2021 13:39-0500 Heart rate 73 /min uSmmer Al Yaw Work Phone: [facility] 250 DO Work Phone: 04-15-2021 13:39-0500 Systolic blood pressure 129 mm[Hg] Summer Al Yaw Work Phone: [facility] DO Work Phone: Encounters Encounter Date Encounter Type Care Provider Facility Start: 09-10-2023 End: 09-10-2023 Patient encounter procedure MD Los Chaudhary Work Phone: [facility] [place] Work Phone: Start: 09-10-2023 End: 09-10-2023 ambulatory MD Los Chaudhary Work Phone: [facility] Work Phone: Start: 09-10-2023 End: 09-10-2023 Office outpatient visit 25 minutes Akhil Olivarez MD Work Phone: [facility] Comment on above: Dilated cardiomyopat hy (Multi) (Primary Dx); Arteriosclerosis of coronary artery; BMI 37.0-37.9, adult; High risk medication use; Paroxysmal atrial fibrillation (Multi); Essential hypertension; Mixed hyperlipidemia; Mitral valve insufficiency, unspecified etiology; Tricuspid valve insufficiency, unspecified etiology; Pacemaker; Venous insufficiency of both lower extremities Start: 09-10-2023 End: 09-10-2023 ambulatory AKHIL OLIVAREZ [facility] Start: 08-18-2023 End: 08-18-2023 Emergency department patient visit [facility] Facility:[facility] Start: 08-17-2023 End: 08-17-2023 Patient encounter procedure MD Los Chaudhary Work Phone: [facility]Pacemaker Check Start: 08-17-2023 End: 08-17-2023 ambulatory MD Los Chaudhary Work Phone: [facility] Work Phone: Start: 07-31-2023 End: 07-31-2023 Emergency department patient visit MD Los Chaudhary Work Phone: [facility] Work Phone: Start: 07-26-2023 End: 07-26-2023 ambulatory LOS CHAUDHARY Facility:[facility] Start: 07-26-2023 End: 07-26-2023 Patient encounter procedure Shweta Sol MD Work Phone: Plastic Surgery Comment on above: Post-operative state (Primary Dx); Alvarado's palsy Start: 07-13-2023 End: 07-13-2023 Emergency department patient visit MD Los Chaudhary Work Phone: [facility]-Emergency Room Work Phone: Start: 07-12-2023 End: 07-12-2023 ambulatory MD Los Chaudhary Work Phone: [facility] Work Phone: Start: 07-12-2023 End: 07-12-2023 Patient encounter procedure MD Los Chaudhary Work Phone: [facility] Work Phone: Start: 05-22-2023 End: 05-22-2023 Patient encounter procedure MD Los Chaudhary Work Phone: [facility]-Pacemaker Check Start: 05-22-2023 End: 05-22-2023 ambulatory MD Los Chaudhary Work Phone: [facility] Work Phone: Start: 05-21-2023 End: 05-21-2023 ambulatory LOS CHAUDHARY Facility:[facility] Start: 05-21-2023 End: 05-21-2023 Patient encounter procedure Rosalva Lemos APRN.MANAGER OF DISTRIBUTION Work Phone: Plastic Surgery Comment on above: Post-operative state (Primary Dx) Start: 05-15-2023 End: 05-15-2023 Patient encounter procedure MD Los Chaudhary Work Phone: [facility]-XRay [facility] [place] Work Phone: Start: 05-15-2023 End: 05-15-2023 ambulatory Los Chaudhary Facility:[facility] Start: 04-30-2023 End: 04-30-2023 ambulatory LOS CHAUDHARY Facility:[facility] Start: 04-24-2023 End: 04-24-2023 ambulatory SHWETA SOL Facility:[facility] Start: 03-30-2023 End: 03-31-2023 ambulatory SELF REFERRAL [place] Start: 03-30-2023 End: 03-30-2023 Patient encounter procedure SELF REFERRAL [facility] Start: 03-29-2023 End: 03-29-2023 ambulatory SHWETA SOL Facility:[facility] Start: 03-29-2023 End: 03-29-2023 ambulatory SHWETA SOL Facility:[facility] Start: 03-29-2023 Encounter for other preprocedural examination SHWETA SOL [facility] Start: 03-21-2023 Telephone encounter Shweta argueta MD Work Phone: Plastic Surgery Comment on above: General Questions Start: 02-26-2023 End: 02-26-2023 Office outpatient visit 15 minutes Mickey [place] HOSIERY KNITTER-MANAGER OF DISTRIBUTION Work Phone: [facility] Comment on above: Arteriosclerosis of coronary artery (Primary Dx); Paroxysmal atrial fibrillation (CMS/HCC); nursing home current use of anticoagulant therapy; Pacemaker; Essential hypertension; Statin intolerance; High risk medication use; BMI 34.0-34.9,adult Start: 02-26-2023 End: 02-26-2023 ambulatory [facility]ulatory Start: 02-19-2023 End: 02-19-2023 Patient encounter procedure MD Los Chaudhary Work Phone: [facility]-Pacemaker Check Start: 02-19-2023 End: 02-19-2023 ambulatory MD Los Chaudhary Work Phone: [facility] Work Phone: Start: 01-01-2023 Telephone encounter Los Chaudhary Work Phone: [facility] 250 DO Work Phone: Start: 12-29-2022 Chart Update Los Chaudhary Work Phone: [facility] 250 DO Work Phone: Start: 12-14-2022 End: 12-14-2022 Patient encounter procedure MD Los Chaudhary Work Phone: [facility] [place] Work Phone: Start: 12-14-2022 End: 12-14-2022 ambulatory MD Los Chaudhary Work Phone: [facility] Work Phone: Start: 12-13-2022 End: 12-14-2022 ambulatory LOS CHAUDHARY Facility:[facility] Start: 12-13-2022 End: 12-13-2022 Patient encounter procedure Shweta Sol MD Work Phone: Plastic Surgery 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 Akhil Olivarez II Facility: Start: 11-23-[address] Los Chaudhary Facility:[id number] Start: 11-23-[address] Los Chaudhary Facility:[id number] Start: 11-22-[address] Akhil Olivarez II Facility:[id number] Start: 11-22-2022 [facility], Provider: Akhil Olivarez, Status: Pen, Time: 10:00 AM Los Chaudhary Work Phone: [facility] 250 DO Work Phone: Start: 11-21-[address] Akhil Michel Facility:90 Start: 11-21-[address] Los Chaudhary Facility:[id number] Start: 11-20-2022 Telephone encounter Los Chaudhary Work Phone: [facility] 250 DO Work Phone: Start: 11-20-[address] Los Chaudhary Facility:[id number] Start: 11-19-2022 End: 11-24-2022 Evaluation and management of inpatient MD Los Chaudhary Work Phone: [facility] Work Phone: Start: 11-19-[address] Los Chaudhary Facility:[id number] Start: 11-18-[address] Los Chaudhary Facility:[id number] Start: 11-17-2022 Evaluation and manag ement of inpatient MD Los Chaudhary Work Phone: [facility] Work Phone: Start: 11-17-2022 observation encounter MD Aviva Chaudhary Work Phone: [facility] Work Phone: Start: 11-09-2022 Message Los Chaudhary Work Phone: [facility] 600 DO Work Phone: Start: 10-30-[address] Akhil amato [facility] Facility: Start: 10-08-2022 AUDIT Los Chaudhary Work Phone: [facility] 250 DO Work Phone: Start: 09-25-[address] Akhil Michel Facility:[id number] Start: 09-25-2022 End: 09-25-2022 Admission to same day surgery center SOLE CEMENTER-C Summer Tidwell Work Phone: [facility]-Transportation Worker Work Phone: Start: 09-25-2022 End: 09-25-2022 ambulatory SOLE CEMENTER-C Summer Tidwell Work Phone: [facility] Work Phone: Start: 09-22-2022 Chart Update Los Chaudhary Work Phone: [facility] 250 DO Work Phone: Start: 09-22-2022 End: 09-22-2022 Patient encounter procedure SOLE CEMENTER-C Summer Tidwell Work Phone: [facility]-Pre-Surgical Testing Work Phone: Start: 09-22-2022 End: 09-22-2022 ambulatory SOLE CEMENTER-C Summer Breonna Yaw Work Phone: [facility] Work Phone: Start: 09-21-2022 Office outpatient vi sit 25 minutes Los M Hoy Work Phone: [facility] 250 DO Work Phone: Start: 09-21-[address] Akhil Olivarez II Facility: Start: 09-14-2022 ambulatory Sparkle Tran ity:[id number] Start: 09-01-2022 Office outpatient vi sit 25 minutes Los M Hoy Work Phone: [facility] 250 DO Work Phone: Start: 09-01-[address] Akhil Olivarez II Facility: Start: 08-25-2022 End: 08-26-2022 ambulatory PADMAJA MCCLAIN [facility] Facility:[facility] Start: 08-07-2022 End: 09-06-2022 ambulatory SHAIKH Omer WHITE Facility:H1 Start: 08-02-2022 Office outpatient vi sit 15 minutes Los M Hoy Work Phone: [facility] 250 DO Work Phone: Start: 08-02-2022 ambulatory Ms. Mickey James Facility: Start: 08-01-2022 End: 08-02-2022 ambulatory MICKEY ALAMOBOB Facility:H1 Start: 07-18-2022 End: 07-18-2022 ambulatory SOLE CEMENTER-C Summer Tidwell Work Phone: [facility] Work Phone: Start: 07-18-2022 End: 07-18-2022 Discharged Recurring SOLE CEMENTER-C Summer Tidwell Work Phone: [facility]-Physical Therapy [address] Start: 07-10-2022 End: 08-04-[address] LOS CHAUDHARY . Facility:H1 Start: 07-05-2022 ambulatory Ms. Mickey James Facility: Start: 07-05-2022 Office outpatient vi sit 25 minutes Los Chaudhary Work Phone: [facility] 250 DO Work Phone: Start: 06-28-2022 End: 06-28-[address] LOS CHAUDHARY . Facility:H1 Start: 06-13-2022 Chart Update Summer Garibayme r Work Phone: [facility] 250 DO Work Phone: Start: 06-13-2022 Registered Recurring SOLE CEMENTER-C Cleo Calvillo Work Phone: [facility]-Physical Therapy [facility] Start: 06-13-2022 End: 06-13-2022 ambulatory SOLE CEMENTER-C Summer Tidwell Work Phone: [facility] Work Phone: Start: 06-13-2022 End: 06-13-2022 Patient encounter procedure SOLE CEMENTER-C Summer Tidwell Work Phone: [facility]-Respiratory Therapy Work Phone: Start: 06-07-2022 End: 07-07-2022 ambulatory SHAIKH mOer WHITE Facility:H1 Start: 05-24-2022 Patient encounter procedure Freddy Tidwell Work Phone: [facility] 250 DO Work Phone: Start: 05-10-2022 End: 06-07-2022 ambulatory SHAIKH Omer WHITE Facility:H1 Start: 04-28-2022 Rx Renewal Summer Garibayme r Work Phone: [facility] 250 DO Work Phone: Start: 04-10-2022 End: 05-10-2022 ambulatory SHAIKH Omer WHITE Facility:H1 Start: 03-23-2022 End: 03-23-2022 Patient encounter procedure Los Chaudhary [facility] Start: 03-10-2022 End: 03-10-[address] LOS CHAUDHARY . Facility:H1 Start: 03-09-2022 End: 04-09-2022 ambulatory SHAIKH Omer WHITE Facility:H1 Start: 02-07-2022 Office outpatient vi sit 25 minutes Summer Tidwell Work Phone: [facility]-[place] 250 DO Work Phone: Start: 02-07-[address] [facility] Start: 02-07-2022 End: 03-08-2022 ambulatory SHAIKH Omer WHTIE Facility:H1 Start: 01-10-2022 End: 01-10-2022 Emergency department patient visit SOLE CEMENTER-C Summer Tidwell Work Phone: [facility]-Emergency Room Start: 01-08-2022 End: 02-06-2022 ambulatory SUMMER TIDWELL Facility:H1 Start: 01-05-2022 End: 01-05-2022 ambulatory SOLE CEMENTER-C Summer Tidwell Work Phone: [facility] Work Phone: Start: 01-05-2022 End: 01-05-2022 Patient encounter procedure SOLE CEMENTER-C Summer Tidwell Work Phone: [facility]-Lab [facility] [place] Start: 01-04-2022 End: 01-04-2022 ambulatory SOLE CEMENTER-C Summer Tidwell Work Phone: [facility] Work Phone: Start: 01-04-2022 End: 01-04-2022 Patient encounter procedure SOLE CEMENTER-C Summer Tidwell Work Phone: [facility]-Lab [facility] [place] Start: 12-29-2021 End: 12-29-2021 ambulatory SUMMER TIDWELL Facility:H1 Start: 12-20-2021 End: 12-22-[address] LOS CHAUDHARY . Facility:H1 Start: 12-16-2021 Chart Update Summer Burden r Work Phone: [facility] [facility] 250 DO Work Phone: Start: 12-13-2021 End: 12-13-2021 Patient encounter procedure SOLE CEMENTER-C Summer Tidwell Work Phone: [facility]-Respiratory Therapy Start: 12-08-2021 End: 01-07-2022 ambulatory SUMMER TIDWELL Facility:H1 Start: 11-28-2021 Office outpatient vi sit 25 minutes Summer Al Yaw Work Phone: [facility] 250 DO Work Phone: Start: 11-09-2021 AUDIT Summer Garibayme r Work Phone: [facility] 250 DO Work Phone: Start: 11-07-2021 End: 12-07-2021 ambulatory SUMMER TIDWELL Facility:H1 Start: 11-01-[address] LOS CHAUDHARY . Facili ty:H1 Start: 10-28-2021 End: 10-29-2021 Evaluation and management of inpatient SOLE CEMENTER-C Summer Tidwell Work Phone: [facility] Start: 10-25-2021 End: 10-25-2021 Emergency department patient visit SOLE CEMENTER-C Summer Tidwell Work Phone: [facility]-Emergency Room Start: 10-21-2021 Patient encounter procedure Freddy Tidwell Work Phone: [facility]-[place] 250 DO Work Phone: Start: 10-21-2021 End: 10-21-2021 Emergency department patient visit SOLE CEMENTER-C Summerbridget Tidwell Work Phone: [facility]-Emergency Room Start: 10-20-2021 End: 10-20-2021 ambulatory SUMMER TIDWELL Facility:H1 Start: 10-07-2021 End: 11-04-2021 ambulatory SHAIKH Omer WHITE Facility:H1 Start: 09-28-2021 Patient encounter procedure Freddy Tidwell Work Phone: [facility] [place] [facility] 600 DO Work Phone: Start: 09-21-2021 Office outpatient vi sit 25 minutes Summer Tidwell Work Phone: [facility] 250 DO Work Phone: Start: 06-30-2021 Chart Update Summer Garibayme r Work Phone: [facility] 600 DO Work Phone: Start: 04-22-2021 Patient encounter procedure Freddy Tidwell Work Phone: [facility] 250 DO Work Phone: Start: 04-15-2021 Office outpatient vi sit 25 minutes Summer Tidwell Work Phone: [facility] 250 DO Work Phone: Start: 03-07-2021 Rx Renewal Akhil avitia MD Work Phone: [facility] 250 DO Work Phone: Start: 03-01-2021 Rx Renewal Akhil avitia MD Work Phone: [facility]-[place] 600 DO Work Phone: Start: 12-22-2016 End: 12-23-2016 Ambulatory JUSTIN BROWN Facility:[facility] Procedures Date Procedure Procedure Detail Performing Clinician Start: 09-10-2023 Ecg routine ecg w/le ast 12 lds w/i&r Akhil Olivarez MD Work Phone: Start: 07-31-2023 Plain chest X-ray MD Gerber Work Phone: Start: 07-31-2023 SARS-CoV-2, Influenz a & RSV (PCR) MD Los Chaudhary Work Phone: Start: 05-15-2023 Plain chest X-ray MD Gerber Work Phone: Start: 02-26-2023 ECG 12-LEAD MICKEY EARLENE H Start: 02-26-2023 Ecg routine ecg w/le ast 12 lds w/i&r Mickey James HOSIERY KNITTER-MANAGER OF DISTRIBUTION Work Phone: Start: 01-23-2023 History of percutane ous transluminal coronary angioplasty H/O percutaneous transluminal coronary angioplasty Mickey James HOSIERY KNITTER-MANAGER OF DISTRIBUTION Work Phone: Start: 12-14-2022 Plain chest X-ray [...] Start: 09-25-2022 CL LHC & COR Angio SOLE CEMENTER-C Summer Yaw Work Phone: Start: 09-25-2022 CL Stent 1st Vessel CX COLBY SOLE CEMENTER-C Summer Yaw Work Phone: Start: 06-13-2022 Plain chest X-ray SOLE CEMENTER-C Summer Yaw Work Phone: Start: 01-10-2022 CT of head without contrast SOLE CEMENTER-C Summer Yaw Work Phone: Start: 12-13-2021 Plain chest X-ray SOLE CEMENTER-C Summer Yaw Work Phone: Start: 10-28-2021 CT angiography of head SOLE CEMENTER-C Summer Yaw Work Phone: Start: 10-28-2021 CT angiography of ne ck vessels SOLE CEMENTER-C Summer Yaw Work Phone: Start: 10-28-2021 Magnetic resonance angiography of head without contrast SOLE CEMENTER-C Summer Tidwell Work Phone: Start: 10-25-2021 CT of head without contrast SOLE CEMENTER-C Summer Tidwell Work Phone: Start: 10-21-2021 Plain chest X-ray SOLE CEMENTER-C Summer Tidwell Work Phone: Start: 03-09-2016 Stereotactically wilma ded core needle biopsy of breast Los Chaudhary Comment on above: left Start: 04-09-2009 5 Stents Los Will y Angioplasty of blood vessel Summer Tidwell Work Phone: Extraction of cataract Dougl as Hoy H/O: surgery Status post eye surgery SOLE CEMENTER-C Summer Tidwell Work Phone: History of placement of stent for coronary artery disease History of heart artery stent SOLE CEMENTER-C Summer Tidwell Work Phone: History of placement of stent for coronary artery disease Status post insertion of drug eluting coronary artery stent Los Chaudhary Work Phone: L Hip Surgery Los Chaudhary Operation on fracture Summer Tidwell Work Phone: Operative procedure on hip Summer Tidwell Work Phone: R Broken leg Los Chaudhary SARS-CoV-2, Influenz a & RSV (PCR) SOLE CEMENTER-C Summer Tidwell Work Phone: Surgical procedure Summer Tidwell Work Phone: Comment on above: stent indications; Urine culture SOLE CEMENTER-C Summer Tony spicer Work Phone: NEGATED: Highlighted row has not occurred! Total colonoscopy Summer Tidwell Work Phone: Plan of Treatment Date Care Activity Detail Author Start: 05-15-2026 Diabetes Screening Diabetes Screening [facility] Start: 08-13-2024 Echocardiography Echocardiogram [facility] Start: 12-28-2023 End: 12-28-2023 Patient encounter procedure 12/28/2023 1:20 PM EDT Office Visit [facility] [address] [place] [address] Bg Nation MD [address] [place] [address] [facility] Start: 12-09-2023 Influenza vaccination Influenza Vaccine (Season Ended) [facility] Start: 12-04-2023 End: 09-09-2024 Aspartate aminotransferase [Enzymatic activity/volume] in Serum or Plasma by With P-5'-P Aspartate Aminotransferase Lab Routine High risk medication use Expected: 12/04/2023 (Approximate), Expires: 09/09/2024 [facility] Service Area Work Phone: Comment on above: Expected: 12/04/2023 (Approximate), Expi res: 09/09/2024 Start: 12-04-2023 End: 09-09-2024 Basic metabolic 2000 panel - Serum or Plasma Basic Metabolic Panel Lab Routine High risk medication use Expected: 12/04/2023 (Approximate), Expires: 09/09/2024 [facility] Work Phone: Comment on above: Expected: 12/04/2023 (Approximate), Expi res: 09/09/2024 Start: 12-04-2023 End: 09-09-2024 Thyrotropin [Units/volume] in Serum or Plasma Thyroid Stimulating Hormone Lab Routine High risk medication use Expected: 12/04/2023 (Approximate), Expires: 09/09/2024 [facility] Work Phone: Comment on above: Expected: 12/04/2023 (Approximate), Expi res: 09/09/2024 Start: 12-04-2023 Subsequent hospital visit by physician 12/04/2023 Hospital Encounter [facility] [id number] [place] [address] High risk medication use [facility] [employer] [facility] Comment on above: High risk medication use Start: 09-10-2023 End: 09-09-2024 Amiodarone Level Amiodarone Level Lab Routine Paroxysmal atrial fibrillation (Multi) Expected: 09/10/2023 (Approximate), Expires: 09/09/2024 [facility] Work Phone: Comment on above: Expected: 09/10/2023 (Approximate), Expi res: 09/09/2024 Start: 09-10-2023 End: 09-09-2024 Complete Pulmonary Function Test (Spirometry/DLCO/Lung Volumes) Complete Pulmonary Function Test (Spirometry/DLCO/Lung Volumes) PFT Routine High risk medication use Expected: 09/10/2023 (Approximate), Expires: 09/09/2024 [facility] Work Phone: Comment on above: Expected: 09/10/2023 (Approximate), Expi res: 09/09/2024 Start: 09-10-2023 [facility] Start: 09-05-2023 End: 09-05-2023 Patient encounter procedure 09/05/2023 1:30 PM EDT Office Visit [facility] [address] [place] [id number] Akhil Olivarez MD [address] [facility] [address], [address] [place] [id number] [facility] Start: 04-10-2023 FUV, Provider: Akhil Olivarez, Status: Abdifatah, Time: 10:20 AM FUV, Provider: Akhil Olivarez, Status: Pen, Time: 10:20 AM [facility] Work Phone: Start: 04-09-2023 Advance Directive Discussion Advance Directive Discussion [facility] Start: 04-09-2023 Behavioral Health Screening Behavioral Health Screening [facility] Start: 04-09-2023 Depression Assessment Depression Assessment [facility] Start: 02-26-2023 FUV, Provider: Mickey Biggs, Status: Abdifatah, Time: 1:00 PM FUV, Provider: Mickey Biggs, Status: Pen, Time: 1:[address] [facility]-[place] 250 DO Work Phone: Start: 12-08-2022 Covid-19 Vaccine () Covid-19 Vaccine () [facility] Start: 12-08-2022 Influenza vaccination Influenza Vaccine (#1) [facility] Start: 11-30-2022 [facility] Start: 11-29-2022 [facility] Start: 11-28-2022 [facility] Start: 11-27-2022 [facility] Start: 11-26-2022 [facility] Start: 11-25-2022 [facility] Start: 11-24-2022 [facility] Start: 11-22-2022 [facility] Start: 11-22-2022 Lipid panel [facility] Start: 11-21-2022 Lipid panel [facility] Start: 11-20-2022 Catheterization of left heart CL *Left Heart Cath (LHC) [facility] Start: 11-20-2022 Lipid panel [facility] Start: 11-19-2022 Fluoroscopy of Left Heart using Low Osmolar Contrast Fluoroscopy of Left Heart using Low Osmolar Contrast [facility] Start: 11-19-2022 Fluoroscopy of Multiple Coronary Arteries using Low Osmolar Contrast Fluoroscopy of Multiple Coronary Arteries using Low Osmolar Contrast [facility] Start: 11-19-2022 Insertion of Pacemaker Lead into Right Atrium, Percutaneous Approach Insertion of Pacemaker Lead into Right Atrium, Percutaneous Approach [facility] Start: 11-19-2022 Insertion of Pacemaker Lead into Right Ventricle, Percutaneous Approach Insertion of Pacemaker Lead into Right Ventricle, Percutaneous Approach [facility] Start: 11-19-2022 Insertion of Pacemaker, Dual Chamber into Chest Subcutaneous Tissue and Fascia, Open Approach Insertion of Pacemaker, Dual Chamber into Chest Subcutaneous Tissue and Fascia, Open Approach [facility] Start: 11-19-2022 Measurement of Cardiac Sampling and Pressure, Left Heart, Percutaneous Approach Measurement of Cardiac Sampling and Pressure, Left Heart, Percutaneous Approach [facility] Start: 11-19-2022 Lipid panel [facility] Start: 11-18-2022 Lipid panel [facility] Start: 11-18-2022 End: 11-18-2022 [facility] Start: 11-17-2022 End: 11-17-2022 [facility] Start: 11-17-2022 Hospital admission [facility] Start: 11-17-2022 Referral to industrial engineering analyst [facility] Start: 10-30-2022 FUV, Provider: Akhil Olivarez, Status: Pen, Time: 11:30 AM FUV, Provider: Akhil Olivarez, Status: Pen, Time: 11:30 AM -[facility] 250 DO Work Phone: Start: 10-29-2022 Echocardiography Echocardiogram [facility] Start: 09-25-2022 [facility] Start: 09-25-2022 SURGNON, Provider: Akhil Michel, Status: Pen, Time: 10:00 AM SURGNONUH, Provider: Akhil Michel, Status: Pen, Time: 10:00 AM -[facility] 250 DO Work Phone: Start: 09-14-2022 STRESS NUC, Provider: RICHARD HHVI NUCLEAR 01,[id number], Status: Pen, Time: 8:00 AM STRESS NUC, Provider: RICHARD HHVI NUCLEAR 01,[id number], Status: Pen, Time: 8:00 AM [facility] 250 DO Work Phone: Start: 09-01-2022 FUV, Provider: Akhil Olivarez, Status: Pen, Time: 2:00 PM FUV, Provider: Akhil Olivarez, Status: Pen, Time: 2:00 PM -[facility] 250 DO Work Phone: Start: 08-02-2022 FUV, Provider: Mickey Biggs, Status: Pen, Time: 1:00 PM FUV, Provider: Mickey Biggs, Status: Pen, Time: 1:00 PM -[facility] 250 DO Work Phone: Start: 04-09-2022 Advance Directive Discussion Advance Directive Discussion [facility] Start: 04-09-2022 Depression Assessment Depression Assessment [facility] Start: 11-28-2021 FUV, Provider: Akhil Olivarez, Status: Pen, Time: 8:20 AM FUV, Provider: Akhil Olivarez, Status: Abdifatah, Time: 8:20 AM [facility] 250 DO Work Phone: Start: 11-07-2021 [facility] Work Phone: Start: 11-06-2021 [facility] Work Phone: Start: 11-05-2021 [facility] Work Phone: Start: 11-04-2021 [facility] Work Phone: Start: 11-03-2021 [facility] Work Phone: Start: 11-02-2021 [facility] Work Phone: Start: 11-01-2021 [facility] Work Phone: Start: 10-31-2021 [facility] Work Phone: Start: 10-30-2021 [facility] Work Phone: Start: 10-29-2021 End: 10-29-2021 [facility] Start: 10-28-2021 Referral to neurologist [facility] Start: 10-28-2021 Vitamin B12 measurement [facility] Work Phone: Start: 10-28-2021 Vitamin D, 25-hydroxy measurement [facility] Work Phone: Start: 10-28-2021 Hospital admission [facility] Start: 10-28-2021 Physical therapy procedure [facility] Work Phone: Start: 10-28-2021 Referral [address] occupational therapist [facility] Work Phone: Start: 10-28-2021 [facility] Work Phone: Start: 09-28-2021 EVENT PILAR, Provider: IMAN VAZ TEACHING DIETITIAN 1,[id number], Status: Pen, Time: 2:30 PM EVENT PILAR, Provider: IMAN VAZ TEACHING DIETITIAN 1,[id number], Status: Pen, Time: 2:30 PM [facility] 250 DO Work Phone: Start: 09-21-2021 FUV, Provider: Akhil Olivarez, Status: Pen, Time: 2:10 PM FUV, Provider: Akhil Olivarez, Status: Pen, Time: 2:10 PM -[facility] 250 DO Work Phone: Start: 04-15-2021 FUV, Provider: Akhil Olivarez, Status: Pen, Time: 1:15 PM -[facility] 600 DO Work Phone: Start: 11-26-2020 Screening for osteoporosis Bone Density Scan [facility] Start: 04-19-2020 Diabetes Screening Diabetes Screening [facility] Start: 11-27-2019 Screening for osteoporosis Bone Density Scan [facility] Start: 12-09-2009 Urine microalbumin profile DTaP,Tdap,Td Vaccine (1 - Tdap) [facility] Start: 1999 Bone Density Screening Bone Density Screening [facility] Start: 1999 Pneumococcal Vaccine: 65+ (1 - PCV) Pneumococcal Vaccine: 65+ (1 - PCV) [facility] Start: 1999 Screening for osteoporosis Bone Density Screening [facility] Start: 1994 RSV patients and/or patients aged 60+ years (1 - 1-dose 60+ series) RSV patients and/or patients aged 60+ years (1 - 1-dose 60+ series) [facility] Start: 1994 RSV Vaccine (1 - 1-dose 60+ series) RSV Vaccine (1 - 1-dose 60+ series) [facility] Start: 1984 Shingrix Vaccine (1 of 2) Shingrix Vaccine (1 of 2) [facility] Start: 1984 Zoster Vaccines (1 of 2) Zoster Vaccines (1 of 2) [facility] Start: 1956 DTaP/Tdap/Td Vaccines (1 - Tdap) DTaP/Tdap/Td Vaccines (1 - Tdap) [facility] Start: 1953 Urine microalbumin profile DTaP,Tdap,Td Vaccine (1 - Tdap) [facility] Start: 1952 Diabetes mellitus screening Diabetes Screening [facility] Start: 1952 Hepatitis B surface antibody level LDL Cholesterol [facility] Start: 1934 Covid-19 Vaccine (#1) Covid-19 Vaccine (#1) [facility] Start: 1934 Creatinine measurement Creatinine Level [facility] Start: 1934 Lipid panel Lipid Panel [facility] Start: 1934 Medicare Annual Wellness Visit Medicare Annual Wellness Visit (AWV) [facility] Start: 1934 Potassium measurement Potassium Level [facility] Start: 1934 Thyroid stimulating hormone measurement TSH Level [facility] Amiodarone [Mass/vol ume] in Serum or Plasma [facility] Bacteria identified in Urine by Culture [facility] Desethylamiodarone [Mass/volume] in Serum or Plasma [facility] ECG 12 lead (Clinic Performed) ECG 12 lead (Clinic Performed) ECG Routine Paroxysmal atrial fibrillation (CMS/HCC) High risk medication use 02/26/2023 1:22 PM EST [facility] Service Area Work Phone: Patient Education [facility] Work Phone: Patient referral [facility] Work Phone: Vitamin D, 25-hydrox y measurement [facility] Work Phone: [facility] Immunizations Immunization Date Immunization Notes Care Provider [facility] 12-08-2019 influenza, high dose seasonal, preservative-free Summer Tidwell Work Phone: [facility] 250 DO Work Phone: 12-08-2019 influenza virus vacc ine, unspecified formulation Shweta Sol MD Work Phone: [facility] 12-04-2019 influenza, high dose seasonal, preservative-free Mickey James HOSIERY KNITTER-MANAGER OF DISTRIBUTION Work Phone: [facility] Work Phone: 12-18-2018 influenza, high dose seasonal, preservative-free Summer S Yaw Work Phone: [place] [address] DO Work Phone: 12-18-2018 pneumococcal polysaccharide vaccine, 23 valent Summer S Yaw Work Phone: [facility] 12-08-2018 influenza virus vacc ine, unspecified formulation Summer S Yaw Work Phone: [place] [address] DO Work Phone: 04-09-2018 pneumococcal conjuga te vaccine, 13 valent Mickey James HOSIERY KNITTER-MANAGER OF DISTRIBUTION Work Phone: [facility] Work Phone: 04-09-2018 pneumococcal polysaccharide vaccine, 23 valent Summer S Yaw Work Phone: [place] [address] DO Work Phone: 12-26-2017 influenza, high dose seasonal, preservative-free Summer S Yaw Work Phone: [place] [address] DO Work Phone: 12-26-2017 influenza, injectabl e, quadrivalent, preservative free Mickey James HOSIERY KNITTER-MANAGER OF DISTRIBUTION Work Phone: [facility] Work Phone: 01-03-2017 influenza, high dose seasonal, preservative-free Summer S Yaw Work Phone: [facility] 250 DO Work Phone: 01-03-2017 pneumococcal conjuga te vaccine, 13 valent Summer S Yaw Work Phone: [place] [address] DO Work Phone: 12-26-2016 influenza virus vacc ine, unspecified formulation Summer S Yaw Work Phone: [facility] 12-26-2016 pneumococcal conjuga te vaccine, 13 valent Summer S Yaw Work Phone: [facility] 250 DO Work Phone: 01-11-2016 influenza, high dose seasonal, preservative-free Summer S Yaw Work Phone: [facility] 250 DO Work Phone: 02-12-2015 influenza, injectabl e, quadrivalent, preservative free Summer S Yaw Work Phone: [facility] 250 DO Work Phone: 01-07-2015 influenza virus vacc ine, unspecified formulation Summer S Yaw Work Phone: [facility] 250 DO Work Phone: 01-07-2014 influenza virus vacc ine, unspecified formulation Summer S Yaw Work Phone: [facility] 250 DO Work Phone: 02-25-2013 influenza, seasonal, injectable Summer S Yaw Work Phone: [facility] 250 DO Work Phone: 03-26-2009 novel influenza-H1N1 -09, preservative-free, injectable Summer S Yaw Work Phone: [facility] 250 DO Work Phone: 04-09-2007 pneumococcal polysaccharide vaccine, 23 valent Summer S Yaw Work Phone: [facility] 250 DO Work Phone: 02-02-2003 pneumococcal polysaccharide vaccine, 23 valent Summer S Yaw Work Phone: [facility] influenza virus vacc ine, unspecified formulation Summer S Yaw Work Phone: [facility] 250 DO Work Phone: Comment on above: 2012Feb2009 Payers Date Payer Category Payer Medicare [id number] 2023 Medicare [id number] 2022 Self-pay [id number] 2022 Unknown [id number] 2016 Unknown 2012 Medicare [id number] 1999 Medicare 1959 Medicare [id number] 1959 Unknown [id number] 1934 Unknown [id number] 2.16.840.1.630302.3.579.2.593 1934 Unknown [id number] 2.16.840.1.452559.3.579.2.593 1934 Unknown [id number] 2.16.840.1.659794.3.579.2.593 1934 Unknown [id number] 2.16.840.1.719451.3.579.2.593 1934 Unknown [id number] 2.16.840.1.529490.3.579.2.593 1934 Unknown [id number] 2.16.840.1.726742.3.579.2.593 1934 Unknown [id number] 2.16.840.1.120652.3.579.2.593 1934 Unknown [id number] 2.16.840.1.937602.3.579.2.593 1934 Unknown [id number] 2.16.840.1.543354.3.579.2.593 1934 Unknown [id number] 2.16.840.1.313841.3.579.2.593 1934 Unknown [id number] 2.16.840.1.419187.3.579.2.593 1934 Unknown [id number] 2.16.840.1.907075.3.579.2.593 1934 Unknown [id number] 2.16.840.1.016177.3.579.2.593 1934 Unknown [id number] 2.16.840.1.873920.3.579.2.593 1934 Unknown [id number] 2.16.840.1.239345.3.579.2.593 1934 Unknown [id number] 2.16.840.1.184970.3.579.2.593 1934 Unknown [id number] 2.16.840.1.998861.3.579.2.593 1934 Unknown [id number] 2.16.840.1.396738.3.579.2.593 1934 Unknown [id number] 2.16.840.1.528130.3.579.2.1068 1934 Unknown [id number] 2.16.840.1.495045.3.579.2.356 1934 Unknown [id number] 2.16.840.1.150932.3.579.2.356 1934 Unknown [id number] 2.16.840.1.762810.3.579.2.356 1934 Unknown [id number] 2.16.840.1.329007.3.579.2.356 1934 Unknown [id number] 2.16.840.1.408340.3.579.2.356 1934 Unknown [id number] 2.16.840.1.829904.3.579.2.356 1934 Unknown [id number] 2.16.840.1.598597.3.579.2.356 1934 Unknown [id number] 2.16.840.1.379257.3.579.2.356 1934 Unknown [id number] 2.16.840.1.618852.3.579.2.356 1934 Unknown [id number] 2.16840.1.360085.3.579.2.356 1934 Unknown [id number] 2.16840.1.748440.3.579.2.356 1934 Unknown [id number] 2.840.1.105000.3.579.2.356 1934 Unknown [id number] 2.16840.1.550645.3.579.2.356 1934 Unknown [id number] 2.840.1.087999.3.579.2.356 1934 Unknown [id number] 2.840.1.156842.3.579.2.356 1934 Unknown [id number] 2.840.1.146735.3.579.2.356 1934 Unknown [id number] 2.16840.1.818755.3.579.2.356 1934 Unknown [id number] 2.16840.1.458585.3.579.2.727 1934 Unknown [id number] 2.16840.1.534999.3.579.2.718 1934 Unknown [id number] 2.840.1.448798.3.579.2.1245 1934 Unknown [id number] 2.16.840.1.771672.3.579.2.1244 1934 Unknown [id number] 2.16.840.1.042767.3.579.2.1244 Medicare Medicare Rehab-IP Part A [id number] Unknown [id number] 2.16.840.1.909080.3.579.2.531 Unknown [id number] 2.16.840.1.214742.3.579.2.531 Unknown [id number] 2.16.840.1.214573.3.579.2.531 Unknown [id number] 2.16.840.1.826456.3.579.2.531 Unknown [id number] 2.16.840.1.595472.3.579.2.531 Unknown [id number] 2.16.840.1.018150.3.579.2.531 Unknown [id number] 2.16.840.1.535954.3.579.2.531 Unknown [id number] 2.16.840.1.762008.3.579.2.531 Unknown [id number] 2.16.840.1.639510.3.579.2.531 Unknown [id number] 2.16.840.1.459320.3.579.2.531 Unknown [id number] 2.16.840.1.943924.3.579.2.531 Social History Date Type Detail Facility Start: 12-13-2022 End: 02-26-2023 No alcohol use No alcohol use [place] [address] DO Work Phone: Comment on above: Hot sandy occas.; Start: 10-28-2021 [facility] Start: 1934 Sex Assigned At Female F [facility] Start: 10-29-2021 End: 07-31-2023 Tobacco smoking status NHIS Never smoked tobacco (finding) [facility] Start: 12-13-2022 End: 02-26-2023 Sex Assigned At Female Paolo Gamble [facility] Start: 12-13-2012 End: 02-23-2023 Tobacco use and exposure Smokeless tobacco non-user [facility] Start: 12-13-2022 End: 03-29-2023 Alcohol intake Current non-drinker of alcohol (finding) [facility] National Score (1-100), lower number is lower risk 91 [facility] Start: 1934 Sex Assigned At Not on file [facility] Start: 02-26-2023 End: 09-10-2023 Alcohol intake Lifetime non-drinker (finding) [facility] Work Phone: Start: 02-16-2023 End: 09-10-2023 Exposure to SARS-CoV-2 (event) Not sure [facility] Medical Equipment Procedure Code Equipment Code Equipment Origin al Text Equipment Identifier Dates Insertion, pacemaker Endocardial pacing lead [id number] FDA Start: 11-22-2022 Insertion, pacemaker Endocardial pacing lead [id number] FDA Start: 11-22-2022 Insertion, pacemaker Dual-chamber implantable pacemaker, rate-responsive [id number] FDA Start: 11-22-2022 BLADE HELICAL TF [...] 2.5 X 30 FDA Start: 09-25-2022 Oculid [place] [id number] Sta rt: 04-24-2023 BLADE HELICAL [...] status Patient is Pro gressing Toward Baseline [facility] Work Phone: 11-17-2022 Functional status Disability Sta tus Patient at Baseline [facility] Work Phone: 09-25-2022 Functional status Patient at Baseline [facility] Work Phone: 10-29-2021 Functional status Patient is Pro gressing Toward Baseline [facility] Work Phone: Mental Status Date Assessment Result Facility 11-24-2022 Cognitive function Cognitive Sta tus Patient at Baseline [facility] Work Phone: 09-25-2022 Cognitive function Cognitive Sta tus Patient at Baseline [facility] Work Phone: 10-29-2021 Cognitive function Cognitive Sta tus Patient at Baseline [facility] Work Phone: Clinical Notes 10-28-2021 to 09-10-2023 Akhil Olivarez MD - 09/10/2023 10:00 AM EDTPatient InstructionsShweta Sol MD - 07/26/2023 9:15 AM Rosalva Rowland APRN.MANAGER OF DISTRIBUTION - 05/21/2023 8:40 AM ESTPatient Instructions Note Date & Type Note Facility 09-10-2023 History of Presen t illness Narrative Subjective Erin Canales is a 88 y.o. female Chief Complaint Follow-up EKG done in office today HPI Patient returns in follow-up of problems as noted. In the interim she has had no hospitalizations. She complains of lower extremity edema. She is under the care of several physicians in her local community and apparently they are planning laser therapy of some varicose veins. She question whether this would alleviate her leg edema and advised her that I doubt it. An echocardiogram was ordered by her PCP. Ejection fraction 35 to 40%. Severe TR, moderately severe mitral regurg. Auscultation demonstrates no rales. She has subjective dyspnea but she does not have any manifestations of left heart failure. She does, though, have manifestations of right heart failure and tricuspid regurgitation including elevated JVP and lower extremity edema. Advised her that the only interventions for this would be intensified diuretics or tricuspid valve intervention. She is too old for surgery and I believe also probably too complicated and frail to consider a nonsurgical intervention for her tricuspid insufficiency. Because of this I recommend conservative therapy with diuretics. In regards to the mitral valve disease it also appears she would not be an ideal candidate for mitral valve clipping. Her daughter question TAVR and I pointed out that she does not really have aortic valve disease necessitating any intervention at all. In regards to coronary disease it appears she is stable. I cannot elicit any angina or anginal cloven symptomatology. Blood pressure and lipids are adequately treated. Pacemaker checks are reviewed and found to be satisfactory. I note she is in atrial fibrillation. She is not clear on what her dose of amiodarone is. She and her daughter are going to go home and call and let us know. I ordered an amiodarone level. If the amiodarone level is low, or, she is only on 200 mg of amiodarone once a day we will recommend intensification of amiodarone and attempt to restore rhythm. This could significantly improve ejection fraction, and also reduce the mitral and tricuspid insufficiency with which she suffers. This was explained to them but it is a complicated concept and it is not clear that they completely understand. Regardless they will call today and let me know what the amiodarone dosage is and we will act accordingly. Vitals: 09/10/23 1017 BP: 108/68 BP Location: Left arm Patient Position: Sitting Pulse: 93 Weight: 92.5 kg (204 lb) Height: 1.575 m (5' 2 ) Objective Physical Exam Constitutional: Appearance: Normal appearance. HENT: Nose: Nose normal. Neck: Vascular: No carotid bruit. Cardiovascular: Rate and Rhythm: Normal rate. Pulses: Normal pulses. Heart sounds: Normal heart sounds. Pulmonary: Effort: Pulmonary effort is normal. Abdominal: General: Bowel sounds are normal. Palpations: Abdomen is soft. Musculoskeletal: General: Normal range of motion. Cervical back: Normal range of motion. Right lower leg: No edema. Left lower leg: No edema. Skin: General: Skin is warm and dry. Neurological: General: No focal deficit present. Mental Status: She is alert. Psychiatric: Mood and Affect: Mood normal. Behavior: Behavior normal. Thought Content: Thought content normal. Judgment: Judgment normal. Amiodarone follow up per routine Allergies Beta-blockers (beta-adrenergic blocking agts), Ibuprofen, and Odchimx-ksf-jaw reductase inhibitors Current Medications Current Outpatient Medications: amiodarone (Pacerone) 200 mg tablet, Take 1 tablet (200 mg) by mouth 2 times a day. (Patient taking differently: Take 1 tablet (200 mg) by mouth once daily.), Disp: 180 tablet, Rfl: 1 aspirin 81 mg chewable tablet, Take one tablet by mouth twice a week, Disp: 30 tablet, Rfl: 11 cholecalciferol (Vitamin D-3) 50 mcg (2,000 unit) capsule, Take 1 capsule (50 mcg) by mouth once daily., Disp: , Rfl: clopidogrel (Plavix) 75 mg tablet, Take 1 tablet (75 mg) by mouth once daily., Disp: 90 tablet, Rfl: 3 cyanocobalamin (Vitamin B-12) 100 mcg tablet, Take 1 tablet (100 mcg) by mouth once daily., Disp: , Rfl: fish oil concentrate (Glasgow-3) 120-180 mg capsule, Take 1 capsule (1 g) by mouth once daily., Disp: , Rfl: isosorbide mononitrate ER (Imdur) 60 mg 24 hr tablet, Take 1 tablet (60 mg) by mouth once daily. Do not crush or chew., Disp: , Rfl: lactulose 10 gram/15 mL solution, Take 15 mL (10 g) by mouth once daily., Disp: , Rfl: levothyroxine (Synthroid, Levoxyl) 75 mcg tablet, Take 1 tablet (75 mcg) by mouth early in the morning.. Take on an empty stomach at the same time each day, either 30 to 60 minutes prior to breakfast, Disp: , Rfl: lisinopril 10 mg tablet, TAKE 1 TABLET BY MOUTH ONCE DAILY DIRECTED. DOSE INCREASED, Disp: 90 tablet, Rfl: 0 nitroglycerin (Nitrostat) 0.4 mg SL tablet, Place 1 tablet (0.4 mg) under the tongue every 5 minutes if needed for chest pain., Disp: , Rfl: ondansetron (Zofran) 4 mg tablet, Take 1 tablet (4 mg) by mouth every 8 hours if needed for nausea or vomiting., Disp: , Rfl: spironolactone (Aldactone) 25 mg tablet, Take 1 tablet (25 mg) by mouth once daily., Disp: 90 tablet, Rfl: 1 torsemide (Demadex) 10 mg tablet, Take 1 tablet (10 mg) by mouth 2 times a day., Disp: , Rfl: warfarin (Coumadin) 3 mg tablet, Take 1 tablet (3 mg) by mouth see administration instructions. Per the [facility], Disp: , Rfl: Pacemaker/Defibrillator follow up per routine Assessment/Plan 1. Arteriosclerosis of coronary artery No anginal symptoms hence we believe CAD stable. - Follow Up In Cardiology - Follow Up In Cardiology; Future 2. BMI 37.0-37.9, adult The merits of diet were advocated 3. High risk medication use Amiodarone testing will be ordered. Amiodarone level as well. If level is low and/or she is on a small dose we will intensify the dose - Aspartate Aminotransferase; Future - Basic Metabolic Panel; Future - Thyroid Stimulating Hormone; Future - XR chest 2 views; Future - Complete Pulmonary Function Test (Spirometry/DLCO/Lung Volumes); Future - Aspartate Aminotransferase - Basic Metabolic Panel - Thyroid Stimulating Hormone 4. Paroxysmal atrial fibrillation (Multi) 25% of the time. If we can restore and maintain rhythm it may significantly improve her hemodynamics. I believe amiodarone is that option of choice because she is not a great candidate for A-fib ablation. - ECG 12 Lead - Amiodarone Level; Future - Amiodarone Level 5. Dilated cardiomyopathy (Multi) Ejection fraction 35 to 40%. This should improve with restoring rhythm. 6. Essential hypertension Adequately controlled 7. Mixed hyperlipidemia Adequately controlled 8. Mitral valve insufficiency, unspecified etiology As noted moderate to moderately severe 9. Tricuspid valve insufficiency, unspecified etiology As noted severe 10. Pacemaker Device checks reviewed 11. Venous insufficiency of both lower extremities Patient will be seeking care of other providers for this [facility]. Marijaibe Attestation By signing my name below, I, Anastacio Johnson LPN attest that this documentation has been prepared under the direction and in the presence of Akhil Olivarez MD. Provider Attestation - Scribe documentation All medical record entries made by the Scribe were at my direction and personally dictated by me. I have reviewed the chart and agree that the record accurately reflects my personal performance of the history, physical exam, discussion and plan. documented in this encounter [facility] Work Phone: 09-10-2023 Instructions Michaela Mondragon LPN - 09/10/2023 10:00 AM EDT Please bring all medicines, vitamins, and herbal supplements with you when you come to the office. Prescriptions will not be filled unless you are compliant with your follow up appointments or have a follow up appointment scheduled as per instruction of your physician. Refills should be requested at the time of your visit. documented in this encounter [facility] Work Phone: 08-18-2023 Note Education Materials Hematology Hematoma A [...] health care provider. General instructions ? Take lhzu-toc-cusowan and prescription medicines only as told by [...] a hematoma on (more content not included)... [facility] 07-26-2023 Note HNO ID: [id number] Author: SHWETA SOL MD Service: ? 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 [facility] clopidogrel (PLAVIX) 75 mg tablet Take 75 [...] of left upper eyelid weight (1.6 g kaw weight placed in the left upper eyelid), [...] with more than 50% of the total kjrh-rl-fjvl time of the visit in counseling / coordination of care. By signing my name below, I, Chole Riojas, attest that this documentation has been [...] 2023 9:58 AM documented in this encounter [facility] 05-21-2023 Note HNO ID: [id number] Author: ROSALVA LEMOS APRN.MANAGER OF DISTRIBUTION Service: ? Author Type: Nurse Practitioner Type: Progress Notes Filed: 05/21/2023 09:27 Note Text: Plastic Surgery Post Op Note CC: post op HPI Date of Surgery: 04/24/2023 Surgery: insertion of left upper eyelid weight (1.6 g kaw weight placed in the left upper eyelid), [...] Take 1 tablet by mouth once daily. [facility] clopidogrel (PLAVIX) 75 mg tablet Take 75 [...] questions or concerns during business hours call [phone] or after hours (after 5 pm or on the weekend) call [phone] and ask for the plastic surgery resident / fellow application security engineer for further instructions. If you have increasing [...] or difficulty breathing (more content not included)... [facility] 05-21-2023 History of Presen t illness Narrative Plastic Surgery Post Op Note CC: post op HPI Date of Surgery: 04/24/2023 Surgery: insertion of left upper eyelid weight (1.6 g kaw weight placed in the left upper eyelid), [...] questions or concerns during business hours call [phone] or after hours (after 5 pm or on the weekend) call [phone] and ask for the plastic surgery resident / fellow application security engineer for further instructions. If you have increasing [...] Past Histories independently gathered by the clinical sales support associate and the remaining scribed note accurately describes my personal service to the patient. Rosalva Lemos APRN.CNP May 21, 2023 documented in this encounter [facility] 04-30-2023 Note HNO ID: [id number] Author: ROSALVA LEMOS APRN.MANAGER OF DISTRIBUTION Service: ? Author Type: Nurse Practitioner Type: Progress Notes Filed: 04/30/2023 10:27 Note Text: Plastic Surgery Post Op Note CC: post op HPI Date of Surgery: 04/24/2023 Surgery: insertion of left upper eyelid weight (1.6 g kaw weight placed in the left upper eyelid), [...] Take 1 tablet by mouth once daily. [facility] clopidogrel (PLAVIX) 75 mg tablet Take 75 [...] questions or concerns during business hours call [phone] or after hours (after 5 pm or on the weekend) call [phone] and ask for the plastic surgery resident / fellow application security engineer for further instructions. If you have increasing [...] shortness of breas (more content not included)... [facility] 04-24-2023 Note HNO ID: [id number] Author: ?, ?, ? Service: Pharmacy Author Type: ? Type: Plan of Care Filed: 04/25/2023 14:43 Note Text: PHARMACY BEDSIDE DELIVERY SERVICE Patient Name: Erin Canales The marked outpatient medications were filled at [facility] pharmacy and picked up at the [...] your Primary Care Provider. Merlin Reese PAGER: [phone] April 25, 2023 2:42 PM [facility] 03-29-2023 Note HNO ID: [id number] Author: Shweta Sol MD Service: ? 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 This developed [...] mouth once daily. Allergies: ALLERGIES Allergen Reactions Wgvnydq-Yba-Aob Red* Other: See Comments Cannot walk when [...] Past Histories independently gathered by the clinical sales support associate and the remaining scribed note accurately describes [...] Sol MD March 29, 2023 2:34 PM [facility] 03-21-2023 Miscellaneous Notes I see that it [...] need a PAC appt please advise. 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 current use of anticoagulant therapy CHADS VASc 5 anticoagulated on Coumadin Denies bleeding diatheses [facility] Work Phone: 02-27-2023 Miscellaneous Notes Associated Problem(s): Pacemaker November 22, 2022 Garcia 2272 dual-chamber permanent pacemaker Associated Problem(s): nursing home current use of anticoagulant therapy CHADS VASc [...] of coronary artery September 25, 2022 pCX PCI/[place] 2.5/30mm Diag, LAD, OM3 patent stents pRCA [employer] Nov 21, 2022 Repeat cath: no changes Current daily activity 4 METS without concerning symptoms Associated Problem(s): High risk medication use Amiodarone Surveillance testing December 2022 Associated Problem(s): Abnormal echocardiogram October 2021 echo LVEF 55 to 60% LVH mild LAE moderate dilated MR mild RVSP 40 mmHg documented in this encounter [facility] Work Phone: 02-27-2023 Evaluation + Plan note Associated Problem(s): Paroxysmal atrial fibrillation (CMS/HCC) EKG in office a paced, underlying sinus rhythm. QTc 432. [facility] Work Phone: 02-27-2023 Evaluation + Plan note Associated Problem(s): Statin intolerance September 2022 LDL 90, HDL 46 Briefly discussed Repatha and politely declines due to concerns regarding cost and self injections. [facility] Work Phone: 02-27-2023 Evaluation + Plan note Associated Problem(s): Essential hypertension Optimal in office [facility] Work Phone: 02-27-2023 Evaluation + Plan note Associated Problem(s): Arteriosclerosis of coronary artery September 25, 2022 pCX PCI/[place] 2.5/30mm Diag, LAD, OM3 patent stents pRCA [employer] Nov 21, 2022 Repeat cath: no changes Current daily activity 4 METS without concerning symptoms [facility] Work Phone: 02-27-2023 Evaluation + Plan note Associated Problem(s): High risk medication use Amiodarone Surveillance testing December 2022 [facility] Work Phone: 02-26-2023 Evaluation + Plan note Associated Problem(s): Abnormal echocardiogram October 2021 echo LVEF 55 to 60% LVH mild LAE moderate dilated MR mild RVSP 40 mmHg [facility] Work Phone: 02-26-2023 History of Presen [...] down on Sundays to get ready for latter day. She denies any dyspnea on exertion, denies [...] (Beta-Adrenergic Blocking Agts) Other bradycardia Ibuprofen Hives Lumvjby-Xmu-Cfz Reductase Inhibitors Myalgia and Other Current Outpatient Medications Medication Instructions amiodarone (PACERONE) 200 mg, oral, Daily aspirin 81 mg chewable tablet Take one tablet by mouth twice a week cholecalciferol (Vitamin D-3) 50 mcg (2,000 unit) capsule 1 capsule, oral, Daily clopidogrel (PLAVIX) 75 mg, oral, Daily cyanocobalamin (Vitamin B-12) 100 mcg tablet 1 tablet, oral, Daily fish oil concentrate (Glasgow-3) 120-180 mg capsule 1 capsule, oral, Daily [...] mg, oral, See admin instructions, Per [facility] Assessment: Abnormal echocardiogram October 2021 echo LVEF 55 to 60% LVH mild LAE moderate dilated MR mild RVSP 40 mmHg High risk medication use Amiodarone Surveillance testing December 2022 Arteriosclerosis of coronary artery September 25, 2022 pCX PCI/[place] 2.5/30mm Diag, LAD, OM3 patent stents pRCA [employer] Nov 21, 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 Paroxysmal atrial fibrillation (CMS/HCC) EKG in office a paced, underlying sinus rhythm. QTc 432. long term care phlebotomist current use of anticoagulant therapy CHADS VASc [...] Dr. Olivarez 6 months Mickey James MSN, HOSIERY KNITTER-MANAGER OF DISTRIBUTION, [facility] Please excuse any errors in grammar or translation related to this dictation. Voice recognition software was utilized to prepare this document. documented in this encounter [facility] Work Phone: 02-26-2023 Instructions MAGALI Phan [...] Olivarez 6 months documented in this encounter [facility] Work Phone: 12-13-2022 Note HNO ID: [id number] Author: Jae Adkins RN Service: ? 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 This developed [...] Allergies: ALLERGIES Allergen Reactions Motrin [Ibuprofen] Unknown Kwxzqds-Nwj-Ski Red* Other: See Comments Cannot walk when [...] Past Histories independently gathered by the clinical sales support associate and the remaining scribed note accurately describes [...] complete. 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 This developed [...] Allergies: ALLERGIES Allergen Reactions Motrin [Ibuprofen] Unknown Fmuhage-Euh-Mve Red* Other: See Comments Cannot walk when [...] Past Histories independently gathered by the clinical sales support associate and the remaining scribed note accurately describes [...] December 13, 2022 documented in this encounter [facility] 11-24-2022 Discharge summary Note Date/Time November 24, 2022 10:58am [facility] ENTER [address] [place] [id number] Discharge Summary Signed Patient: Erin Canales MR#: [id number] : 1935 Acct:[id number] Age/Sex: 87 / F Adm Date: 3 Loc: Room: [address] [place] [address]: Danilo Drummond MD Copies to: [...] pain. She was diagnosed having non-ST elevation IN. She was seen by industrial engineering analyst who recommended cardiac catheter. Please refer to [...] her primary care doctor to obtain [facility] record entirely to address abnormalities seen on [...] % (Auto) 68.1, Lymph % (Auto) 20.3, [place] % (Auto) 8.8, Eos % (Auto) 1.7, Baso % (Auto) 1.1, Nucleat RBC Rel Count 0.1, Neut # (Auto) 4.0, Lymph # (Auto) 1.2, [place] # (Auto) 0.5, Eos # (Auto) 0.1, [...] oriented to place, time and person HEENT: [place] conjunctiva and NL buccal mucosa Neck: Supple, [...] nurse for incision check in the [facility] Office on 11/29/2022 at 2:00pm. 2. Chest x-ray to be done the day of device check at [facility] on 02/19/2023. 3. Pacemaker/ICD clinic appointment at [facility] on 02/19/2023 at 10:00am . 4. Office visit with Mickey James NP in the [facility] Office on 02/26/2023 at 1:00pm. [] I may not have addressed or treated all of your medical illnesses or the abnormal blood work or imaging studies during this hospitalization. Please ask your primary care provider to obtain [facility] records entirely to follow up on all [...] symptoms worsen or return. Discharging you from [facility] does not mean that your medical care [...] unit) Tablet 50 mcg PO DAILY omega 0-dzc-kxs-fish oil [Fish Oil] 1,000 mg (120 mg-180 [...] needed.) Documented By: Danilo Drummond MD 11/24/22 1518 Signed By: <Electronically signed by Danilo Drummond MD> 11/24/22 0026 [facility] Work Phone: 1(547) 878-679108-17-2023 Progress note Author Danilo Drummond [facility] November 23, 2022 4:11pm Note Date/Time November 23, 2022 4: 11pm [facility] [address] [place], [place] [id number] Hospitalist Progress Note Signed Patient: Erin Canales MR#: [id number] : 1935 Acct:[id number] Age/Sex: 87 / F Adm Date: 3 Loc: Room: [address] [place] [address] Type: ADM IN Attending Dr: Danilo Drummond [...] oriented to place, time and person HEENT: [place] conjunctiva and NL buccal mucosa Neck: Supple, [...] Tablet PO 11/20/23 08:59 Not Given DAILY [facility] Aspirin 81 mg 11/19/22 09:00 11/23/22 09:01 Aspirin 81 Mg Tab.Chew PO 11/19/23 08:59 Not Given DAILY [facility] Clopidogrel Bisulfate 75 mg 11/18/22 09:00 11/23/22 09:01 Clopidogrel Bisulfate 75 Mg Tablet PO 11/18/23 08:59 Not Given DAILY [facility] Docusate Sodium 100 mg 11/22/22 11:42 Docusate 100 Mg Capsule PO 11/22/23 11:41 QHS PRN Constipation Sodium Chloride 1,000 mls @ 20 mls/hr 11/22/22 10:00 11/22/22 12:20 0.9% Sodium Chloride 1,000 Ml IV 11/22/23 09:59 20 mls/hr .Q24H [facility] Infusion Isosorbide Mononitrate 60 mg 11/18/22 09:00 11/23/22 09:01 Isosorbide Mononitrate 24hr Er 60 Mg Tab.Er.24h PO 11/18/23 08:59 Not Given DAILY [facility] Lisinopril 10 mg 11/18/22 09:00 11/22/22 07:56 [...] <Electronically signed by Danilo Drummond MD> 11/23/22 161 [facility] Work Phone: 1(217) 671-490808-17-2023 Progress note Author Pearl Michel [facility] November 23, 2022 11:21am Note Date/Time November 23, 2022 11 :21am [facility] ENTER [address] [place] [address] Cardiology Progress Note Signed Patient: Erin Canales MR#: [id number] : 1935 Acct:[id number] Age/Sex: 87 / F Adm Date: 3 Loc: Room: [address] [place] [address] Type: ADM IN Attending Dr: Danilo Drummond [...] signed by Pearl Michel DO> 11/23/22 1121 [facility] Work Phone: 1([phone]) 734-712508-17-2023 [facility] Discharge instructions Additional Instructions SNF [...] nurse for incision check in the [facility] Office on 11/29/2022 at 2:00pm. 2. Chest x-ray to be done the day of device check at [facility] on 02/19/2023. 3. Pacemaker/ICD clinic appointment at [facility] on 02/19/2023 at 10:00am . 4. Office visit with Mickey James NP in the [facility] Office on 02/26/2023 at 1:00pm. 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 4. ACTIVITY: You are advised to [...] bottle, follow the instructions on the bottle. [facility] is not responsible for incorrect prescription [...] ask your primary care provider to obtain [facility] records entirely to follow up on all [...] symptoms worsen or return. Discharging you from [facility] does not mean that your medical care ends here and now. You may still need additional monitoring, work up, investigation, and treatment plan to be handled from this point on by out patient providers including your primary care provider and specialists. For any medication question, please contact your retail pharmacist or your primary care provider. Thank you.[facility] Work Phone: 1([phone]) 374-282508-16-2023 Progress note Author Danilo Drummond [facility] November 22, 2022 8:50am Note Date/Time November 22, 2022 8: 50am [facility] ENTER [address] [place] [address] Hospitalist Progress Note Signed Patient: Erin Canales MR#: [id number] : 1935 Acct:[id number] Age/Sex: 87 / F Adm Date: 3 Loc: 3T Room: [address] [place] [address] Type: ADM IN Attending Dr: Danilo Drummond [...] oriented to place, time and person HEENT: [place] conjunctiva and NL buccal mucosa Neck: Supple, [...] Tablet PO 11/18/23 08:59 Not Given DAILY [facility] Docusate Sodium 100 mg 11/17/22 21:47 Docusate 100 Mg Capsule PO 11/17/23 21:46 QHS PRN Constipation Sodium Chloride 1,000 mls @ 20 mls/hr 11/22/22 10:00 0.9% Sodium Chloride 1,000 Ml IV 11/22/23 09:59 .Q24H [facility] Vancomycin HCl 1.25 gm/ 275 mls @ 183.333 mls/hr 11/22/22 08:00 11/22/22 07:58 Dextrose IV 11/22/22 09:29 183.33 mls/hr PREOP ONE Administration Protocol Lactated Ringer's 1,000 mls @ 70 mls/hr 11/22/22 09:00 Lactated Ringers IV 11/22/22 23:17 .[id number] JOHN Isosorbide Mononitrate 60 mg 11/18/22 09:00 [...] signed by Danilo Drummond MD> 11/22/22 0850 [facility] Work Phone: 1(159) 876-777008-15-2023 Progress note Author Akhil Olivarez [facility] November 21, 2022 2:54pm Note Date/Time November 21, 2022 2: 54pm [facility] ENTER [address] [place] [address] Cardiology Progress Note Signed Patient: Erin Canales MR#: [id number] : 1935 Acct:[id number] Age/Sex: 87 / F Adm Date: 3 Loc: Room: [address] [place] [address] Type: ADM IN Attending Dr: Danilo Drummond [...] implantation tomorrow. Documented By: Akhil Olivarez MD 145 Signed By: <Electronically signed by MD Akhil Olivarez> 11/21/22 1454 [facility] Work Phone: 1(419) 848-294908-15-2023 Progress note Author Danilo Drummond [facility] November 21, 2022 9:06am Note Date/Time November 21, 2022 9: 06am [facility] ENTER [address] [place] [address] Hospitalist Progress Note Signed Patient: Erin Canales MR#: [id number] : 1935 Acct:[id number] Age/Sex: 87 / F Adm Date: 3 Loc: 3T Room: [address] [place] [address] Type: ADM IN Attending Dr: Danilo Drummond [...] oriented to place, time and person HEENT: [place] conjunctiva and NL buccal mucosa Neck: Supple, [...] Tab.Er.24h PO 11/18/23 08:59 Not Given DAILY [facility] Lisinopril 10 mg 11/18/22 09:00 11/20/22 08:11 Lisinopril 10 Mg Tablet PO 11/18/23 08:59 Not Given DAILY [facility] Nitroglycerin 0.4 mg 11/17/22 21:47 Nitroglycerin 0.4 [...] Avoid beta-germán due to bradycardia 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 Continue Demadex SCDs for DVT prophylaxis Heart healthy diet Full code I called her daughter Chioma on 11/20 and gave her update on her condition, status and the treatment plan. Documented By: Danilo Drummond MD 11/21/22902 Signed By: <Electronically signed by Danilo Drummond MD> 11/21/22905 [facility] Work Phone: 1(115) 948-706108-14-2023 Progress note Author Danilo Drummond [facility] November 20, 2022 1:09pm Note Date/Time November 20, 2022 1: 06pm [facility] ENTER [address] [place] [address] Progress Note Signed Patient: Erin Canales MR#: [id number] : 1935 Acct:[id number] Age/Sex: 87 / F Adm Date: 3 Loc: 3T Room: 6C3079-8 Type: ADM IN Attending Dr: Danilo Drummond [...] <Electronically signed by Danilo Drummond MD> 11/20/22 1309 [facility] Work Phone: 1(382) 706-755408-14-2023 Progress note Author Akhil Olivarez [facility] November 20, 2022 12:36pm Note Date/Time November 20, 2022 12 :36pm [facility] ENTER [address] [place] [address] Cardiology Progress Note Signed Patient: Erin Canales MR#: [id number] : 1935 Acct:[id number] Age/Sex: 87 / F Adm Date: 3 Loc: Room: 8Y3871-0 Type: ADM IN Attending Dr: Danilo Drummond [...] % (Auto) 65.5 Lymph % (Auto) 21.8 [place] % (Auto) 9.8 Eos % (Auto) 2.0 Baso % (Auto) 0.9 Nucleat RBC Rel Count 0.1 Neut # (Auto) 3.5 Lymph # (Auto) 1.2 [place] # (Auto) 0.5 Eos # (Auto) 0.1 [...] MPV Neut % (Auto) Lymph % (Auto) [place] % (Auto) Eos % (Auto) Baso % (Auto) Nucleat RBC Rel Count Neut # (Auto) Lymph # (Auto) [place] # (Auto) Eos # (Auto) Baso # [...] <Electronically signed by MD Akhil Olivarez> 11/20/22 6686 [facility] Work Phone: 1(763) 558-665508-14-2023 Progress note Author W Anand [facility] November 20, 2022 11:23am Note Date/Time November 20, 2022 11 :21am [facility] ENTER [address] [place] [address] Cardiology Progress Note Signed Patient: Erin Canales MR#: [id number] : 1935 Acct:[id number] Age/Sex: 87 / F Adm Date: 3 Loc: 3T Room: [address] [place] [address] Type: ADM IN Attending Dr: Danilo Drummond [...] % (Auto) 65.5 Lymph % (Auto) 21.8 [place] % (Auto) 9.8 Eos % (Auto) 2.0 Baso % (Auto) 0.9 Nucleat RBC Rel Count 0.1 Neut # (Auto) 3.5 Lymph # (Auto) 1.2 [place] # (Auto) 0.5 Eos # (Auto) 0.1 [...] MPV Neut % (Auto) Lymph % (Auto) [place] % (Auto) Eos % (Auto) Baso % (Auto) Nucleat RBC Rel Count Neut # (Auto) Lymph # (Auto) [place] # (Auto) Eos # (Auto) Baso # [...] Code(s): 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 Documented By: Pearl Michel DO 11/20/221119 Signed By: <Electronically signed by Pearl Michel DO> 11/20/221122 [facility] Work Phone: 1(233) 530-876308-14-2023 Progress note Author Danilo Drummond [facility] November 20, 2022 8:07am Note Date/Time November 20, 2022 8: 07am [facility] ENTER [address] [place] [address] Hospitalist Progress Note Signed Patient: Erin Canales MR#: [id number] : 1935 Acct:[id number] Age/Sex: 87 / F Adm Date: 3 Loc: 3T Room: [address] [place] [address] Type: ADM IN Attending Dr: Danilo Drummond [...] oriented to place, time and person HEENT: [place] conjunctiva and NL buccal mucosa Neck: Supple, [...] 11/20/22 08:15 Lactated Ringers IV 11/20/22 21:34 .[id number] JOHN Isosorbide Mononitrate 60 mg 11/18/22 09:00 11/19/22 10:44 Isosorbide Mononitrate 24hr Er 60 Mg Tab.Er.24h PO 11/18/23 08:59 60 mg DAILY [facility] Administration Lisinopril 10 mg 11/18/22 09:00 11/19/22 10:44 Lisinopril 10 Mg Tablet PO 11/18/23 08:59 10 mg DAILY [facility] Administration Nitroglycerin 0.4 mg 11/17/22 21:47 Nitroglycerin [...] By: <Electronically signed by Danilo Drummond MD> 11/20/22806 [facility] Work Phone: 1(553) 745-457008-13-2023 Progress note Author Ailyn Meng [facility] November 19, 2022 3:01pm Note Date/Time November 19, 2022 11 :19am [facility] ENTER [address] [place] [address] Hospitalist Progress Note Signed Patient: Erin Canales MR#: [id number] : 1935 Acct:[id number] Age/Sex: 87 / F Adm Date: 3 Loc: Room: [address] [place] [address] Type: ADM INOo Attending Dr: Ailyn Meng [...] code Documented By: Ailyn Meng MD 11/19/22 7846 Signed By: <Electronically signed by Ailyn Meng MD> 11/19/22 1507 [facility] Work Phone: 1([phone]) 707-496908-13-2023 Progress note Author Akhil Olivarez [facility] November 19, 2022 11:09am Note Date/Time November 19, 2022 11 :09am [facility] ENTER [address] [place] [address] Cardiology Progress Note Signed Patient: Erin Canales MR#: [id number] : 1935 Acct:[id number] Age/Sex: 87 / F Adm Date: 3 Loc: Room: [address] [place] [address] Type: ADM INOo Attending Dr: Ailyn Meng [...] Code(s): 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 Documented By: Akhil Olivarez MD 1104 Signed By: <Electronically signed by MD Akhil Olivarez> 11/19/22 1109 [facility] Work Phone: 1([phone]) 813-542508-12-2023 Consult note Author Akhil Olivarez [facility] November 18, 2022 4:11pm Note Date/Time November 18, 2022 4: 11pm [facility] ENTER [address] [place] [address] Cardiology Consult Note Signed Patient: Erin Canales MR#: [id number] : 1935 Acct:[id number] Age/Sex: 87 / F Adm Date: 3 Loc: Room: [address] [place] [address] Type: ADM INOo Attending Dr: Ailyn Meng [...] and no additional complaints, except as [facility] History (HFpEF) heart failure with preserved [...] PO DAILY 11/26/19 [History Confirmed 11/17/22] omega 0-vtj-zng-fish oil 1,000 mg (120 mg-180 mg) capsule [...] tablet (Vitamin C) 2,000 mg PO BID [id number]/16/23 [History Confirmed 11/17/22] aspirin 81 mg tablet,delayed release 81 mg PO 2XW 09/22/22 [History Confirmed 09/25/22] cartilage 40 mg-collagen II 10 mg-boron 5 mg-hyaluronate 3.3 mg tablet ([email or web address]) 1 tab PO DAILY 09/22/22 [History Confirmed [...] Lymph # (Auto) 1.0 1.2 (1.00-4.8) x10E3/uL [place] # (Auto) 0.5 0.5 (0.0-0.8) x10E3/uL Eos [...] Code(s): I25.10 - Atherosclerotic heart disease of [place] coronary artery without angina pectoris (3) Sinus [...] signed by MD Akhil Olivarez> 11/18/22 1611 [facility] Work Phone: 1(604) 412-158008-12-2023 Progress note Author Ailyn Meng [facility] November 18, 2022 1:17pm Note Date/Time November 18, 2022 12 :46pm [facility] ENTER [address] [place] [address] Hospitalist Progress Note Signed Patient: Erin Canalse MR#: [id number] : 1935 Acct:[id number] Age/Sex: 87 / F Adm Date: 3 Loc: Room: [address] [place] [address] Type: ADM INOo Attending Dr: Ailyn Meng [...] signed by Ailyn Meng MD> 11/18/22 1317 [facility] Work Phone: 1(703) 531-901908-12-2023 History and physical note Author Jamie Hathaway [facility] November 17, 2022 11:08pm Note Date/Time November 17, 2022 11 :00pm [facility] ENTER [address] [place] [address] Hospitalist H&P Signed Patient: Erin Canales MR#: [id number] : 1935 Acct:[id number] Age/Sex: 87 / F Adm Date: 3 Loc: Room: [address] [place] [address] Type: ADM INOo Attending Dr: Jamie Hathaway [...] were negative except as noted in the [facility] Medical History (HFpEF) heart failure with [...] PO DAILY 11/26/19 [History Confirmed 09/25/22] omega 3-knp-zmm-fish oil 1,000 mg (120 mg-180 mg) capsule [...] 10 mg-boron 5 mg-hyaluronate 3.3 mg tablet ([email or web address]) 1 tab PO DAILY 09/22/22 [History Confirmed [...] % (Auto) 17.1 % (.) 11/17/22 18:44 [place]more % (Auto) 7.8 % (.) 11/17/22 18:44 Eos % (Auto) 0.8 % (.) 11/17/22 18:44 Baso % (Auto) 0.8 % (.) 11/17/22 18:44 Nucleat RBC Rel Count 0.2 /100 WBC (0-0.5) 11/17/22 18:44 Neut # (Auto) 4.3 x10E3/uL (1.8-7.7) 11/17/22 18:44 Lymph # (Auto) 1.0 x10E3/uL (1.00-4.8) 11/17/22 18:44 [place] # (Auto) 0.5 x10E3/uL (0.0-0.8) 11/17/22 18:44 [...] <Electronically signed by Jamie Hathaway MD> 11/17/22 2430 [facility] Work Phone: 1([phone] 842-182506-19-2023 Discharge summary Author Pearl Michel [facility] September 25, 2022 1:06pm Note Date/Time September 25, 2022 1:03 pm [facility] ENTER [address] [place] [address] Discharge Summary Signed Patient: Erin Canales MR#: [id number] : 1935 Acct:[id number] Age/Sex: 87 / F Adm Date: 3 Loc: Room: [address] [place] [address]: Pearl Michel DO Copies to: [...] doctor or pharmacist, without first calling the industrial engineering analyst who implanted the stent. If you require [...] weight lifting, stair steppers, etc. until the industrial engineering analyst approves these activities. Check with the industrial engineering analyst on your first follow-up visit. CALL YOUR PHYSICIAN at [phone]: -If bleeding should occur from the catheter insertion site- apply pressure to the site then immediately call us. -Report any fever, redness, drainage, increased swelling, or firmness at the catheter insertion site. Some bruising or slight swelling may be present at thetime of discharge. -Should arm or leg become cold, numb, white, or blue, contact the industrial engineering analyst immediately. -IF you should experience episodes of [...] is recommended. Please call Central Scheduling at [phone] to schedule your appointment.] The attending industrial engineering analyst or [facility] nurse clinician should provide you with specific instructions regarding activity, diet, medications, and further follow up for you. Follow the medication instructions provided on your discharge. If the dosages and instructions on this sheet differ from the dosage and instructions on the bottle, follow the instructions on the bottle. [facility] is not responsible for incorrect prescription [...] unit) Tablet 50 mcg PO DAILY omega 0-sdb-mlc-fish oil [Fish Oil] 1,000 mg (120 mg-180 [...] - Documented By: Pearl Michel DO 09/25/22 1258 Signed By: <Electronically signed by Pearl Michel DO> 09/25/22 130 [facility] Work Phone: 1(174) 748-710906-19-2023 Procedure [facility]06-19-2023 Procedure [facility]05-19-2023 Note HNO ID: [id number] Author: Shweta Sol MD Service: ? 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 This developed [...] Past Histories independently gathered by the clinical sales support associate and the remaining scribed note accurately describes my personal service to the patient. 30 Minutes total visit spent face to face with patient. Greater than 50% of the time was spent for counseling and coordination of care, dis (more content not included)...[id number] Consult note Author Geeta Bourgeois [facility] October 29, 2021 11:14am Note Date/Time October 29, 2021 10:0 8am [facility] ENTER [address] [place] [address] Neurology Consult Note Signed Patient: Erin Canales MR#: [id number] : 1935 Acct:[id number] Age/Sex: 86 / F Adm Date: 2 Loc: Room: [address] [place] [address] Type : ADM INOo Attending Dr: Kale Ross MD Copies to: MD Geeta Underwood DO Pamela Sue Cramer, MANAGER OF DISTRIBUTION~ HPI Consult Date: 10/29/21 Sneller Hand: Geeta Bourgeois DO Reason for consult: weakness [...] Medical History (Updated 10/28/21 @ 16:08 [facility] (HFpEF) heart failure with preserved ejection fraction [...] PO DAILY 11/26/19 [History Confirmed 10/28/21] omega 4-ris-mew-fish oil 1,000 mg (120 mg-180 mg) capsule (Fish Oil) 1 cap PO BID 11/26/19 [History Confirmed 10/28/21] selenium 50 mcg tablet 100 mcg PO DAILY 08/19/20 [History Confirmed 10/28/21] torsemide 5 mg tablet [...] of dysmetria with good rapid alternating movements [id number] Tone is physiologic Patient is intact to [...] Estrada Jr., D.O.10/28/2021 7:31 PM Dictation Location: [place] [address] Head CTA 10/28/21 12:09 IMPRESSION: 1. Noncontrast [...] Estrada Jr., D.O.10/28/2021 1:35 PM Dictation Location: [place] [address] Therapy Recommendations Therapy Recommendations: OT Recommendations OT [...] MRA and CTA that showed a left PRESSER ALL AROUND occlusion versus hypoplasia but really there is [...] stroke MRA and CTA showed the left PRESSER ALL AROUND occlusion versus hypoplasia but no other significant [...] <Electronically signed by DO Geeta Bourgeois> 10/29/21 1110 [facility] Work Phone: 1(655) 484-601207-22-2022 Progress note Author Kale Ross [facility] October 28, 2021 4:56pm Note Date/Time October 28, 2021 11:5 2am [facility] ENTER [address] [place] [address] Hospitalist Progress Note Signed with Addenda Patient: Erin Canales MR#: [id number] : 1935 Acct:[id number] Age/Sex: 86 / F Adm Date: 2 Loc: Room: [address] [place] [address] Type : ADM INOo Attending Dr: Kale Ross MD Copies to: ~ ADDENDUM1 I personally saw this patient on the day of the encounter, reviewed the history,performed the turner elements of the exam and formulated the plan of care and confirmed the nurse practitioners/residents/business analytics intern written note. Addendum Documented By: Kale [...] completing dosing today. She is reportingpain left denominational to ear area that is alleviated with [...] 500 Mg Tablet PO 1,000 mg Q8HR OJHN Administration Vitamin D 50 mcg 10/28/21 09:00 [...] URI 10/21 Recent UTI Enterococcus Faecalis 10/21 [place] Palsy, left sided 10/25 ?new meds this [...] signed by Kale Ross MD> 10/28/21 1653 [facility] Work Phone: 1(908) 977-368807-22-2022 History and physical note Author Nguyễn Langston [facility] October 28, 2021 4:55am Note Date/Time October 28, 2021 4:55 am [facility] [address] [place] [address] Hospitalist H&P Signed Patient: Erin Canales MR#: [id number] : 1935 Acct:[id number] Age/Sex: 86 / F Adm Date: 2 Loc: ER Room: Type: [facility] Attending Dr: Copies to: MD Summer Bernard, [...] PO DAILY 11/26/19 [History Confirmed 10/25/21] omega 5-dmz-nrx-fish oil 1,000 mg (120 mg-180 mg) capsule [...] % (Auto) 13.2 % (.) 10/28/21 01:45 [place] % (Auto) 7.6 % (.) 10/28/21 01:45 Eos % (Auto) 0.0 % (.) 10/28/21 01:45 Baso % (Auto) 0.5 % (.) 10/28/21 01:45 Neut # (Auto) 4.6 x10E3/uL (1.8-7.7) 10/28/21 01:45 Lymph # (Auto) 0.8 x10E3/uL (1.00-4.8) L 10/28/21 01:45 [place] # (Auto) 0.4 x10E3/uL (0.0-0.8) 10/28/21 01:45 [...] pH 6.0 (5.0-9.0) 10/28/21 03:00 Ur Specific [place] 1.012 (1.001-1.030) 10/28/21 03:00 Urine Protein Negative [...] <Electronically signed by Nguyễn Lopez MD> 10/28/21 7302 [facility] Work Phone: 1(865) 443-526807-22-2022 History and physical note Author Nguyễn Langston [facility] October 28, 2021 4:55am Note Date/Time October 28, 2021 4:55 am [facility] ENTER [address] [place] [address] Hospitalist H&P Signed Patient: Erin Canales MR#: [id number] : 1935 Acct:[id number] Age/Sex: 86 / F Adm Date: 2 Loc: ER Room: Type: [facility] Attending Dr: Copies to: MD Summer Bernard, [...] PO DAILY 11/26/19 [History Confirmed 10/25/21] omega 1-mlh-jzu-fish oil 1,000 mg (120 mg-180 mg) capsule [...] % (Auto) 13.2 % (.) 10/28/21 01:45 [place] % (Auto) 7.6 % (.) 10/28/21 01:45 Eos % (Auto) 0.0 % (.) 10/28/21 01:45 Baso % (Auto) 0.5 % (.) 10/28/21 01:45 Neut # (Auto) 4.6 x10E3/uL (1.8-7.7) 10/28/21 01:45 Lymph # (Auto) 0.8 x10E3/uL (1.00-4.8) L 10/28/21 01:45 [place] # (Auto) 0.4 x10E3/uL (0.0-0.8) 10/28/21 01:45 [...] pH 6.0 (5.0-9.0) 10/28/21 03:00 Ur Specific [place] 1.012 (1.001-1.030) 10/28/21 03:00 Urine Protein Negative [...] <Electronically signed by Nguyễn Lopez MD> 10/28/21 0452 [facility] Work Phone: Evaluation + Plan note No data available for this section [facility] Diagnosis Onset Date Resolution Status Chronic anticoagulation acut e Dehydration acute Dizziness acute Generalized weakness acute History of atrial fibrillation acute Hypertension acute Impaired mobility and activities of daily living acute 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 CAD (coronary artery disease) chronic [facility] Work Phone: Evaluation note* Diagnosis Onset Date Resolution Status Chronic anticoagulation acut e Dehydration acute Dizziness acute Generalized weakness acute History of atrial fibrillation acute Hypertension chronic Impaired mobility and activities of daily living acute 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 CAD (coronary artery disease) chronic [facility] Work Phone: Evaluation noteNo assessment information available [facility] Work Phone: Evaluation note* Diagnosis Onset Date Resolution Status Chest pain acute [facility] Work Phone: Evaluation note* Diagnosis Onset Date Resolution Status Angina pectoris acute Chest pain acute History of heart artery stent acute Hypertension chronic Hyponatremia acute Paroxysmal atrial fibrillation acute Sinus bradycardia acute CAD (coronary artery disease) chronic [facility] Work Phone: Evaluation note* Diagnosis Alvarado's palsy- Primary Alvarado's palsy Drooping of mouth [facility] Diagnosis Arteriosclerosis of coronary artery- Primary Paroxysmal atrial fibrillation (CMS/HCC) Atrial fibrillation nursing home current use of anticoagulant therapy Pacemaker Cardiac pacemaker in situ Essential hypertension Unspecified essential hypertension Statin intolerance High risk medication use BMI 34.0-34.9,adult documented in this encounter [facility] Work Phone: Evaluation note* Diagnosis Post-operative state- Primary Other postprocedural status documented [facility] this [facility] Diagnosis Onset Date Resolution Status Foreign body in left ear non eactive [facility] Work Phone: Evaluation note* Diagnosis Post-operative state- Primary Other postprocedural status 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 Dilated cardiomyopathy (Multi)- Primary Other primary cardiomyopathies Arteriosclerosis of coronary artery BMI 37.0-37.9, adult High risk medication use Paroxysmal atrial fibrillation (Multi) Atrial fibrillation Essential hypertension Unspecified essential hypertension Mixed hyperlipidemia Mitral valve insufficiency, unspecified etiology Tricuspid valve insufficiency, unspecified etiology Pacemaker Cardiac pacemaker in situ Venous insufficiency of both lower extremities High risk medication use documented in this encounter [facility] Work Phone: History of Present illness [...] merits of diet and weight loss were reviewed.-[facility] 250 DO Work Phone: History of Present [...] appears no adjustments are necessary at this time.[facility] 250 DO Work Phone: History of [...] appears no adjustments are necessary at this time.[place] [address] DO Work Phone: History of Present illness [...] merits of diet exercise and weight loss. [facility] 250 DO Work Phone: History of [...] merits of diet and weight loss werereviewed. -[facility] [employer] DO Work Phone: History of Present illness [...] medication regimen. She denies medication side effects. [facility] 250 DO Work Phone: History of Present [...] of diet and weight loss were advocated. [facility] 250 DO Work Phone: History of [...] of diet and weight loss were advocated. [facility] 600 DO Work Phone: History [...] of diet and weight loss were advocated. [facility] 250 DO Work Phone: History of [...] weight loss and she understands our recommendation. [facility] [employer] DO Work Phone: History of Present illness [...] weight loss and she understands our recommendation. [facility] ServicesThe Old ReaderRichard [employer] DO Work Phone: [facility] Work Phone: Hospital Discharge instructionsAmbulatory Orders* Initiate Home Health Time Frame: 1 Day, Location: Determined By Patient * PT/OT/SP OutPatient Referral Time Frame: 1 Day, Location: Determined By Patient Additional Instructions Home Health to manage care: - Full code - PT/OT eval and treat - Routine vital signs - Medication management and education -[facility] Work Phone: [facility] Work Phone: Hospital Discharge instructions No data available for this section [facility] Additional Instructions DISCHARGE INSTRUCTIONS FOR [...] doctor or pharmacist, without first calling the industrial engineering analyst who implanted the stent. If you require [...] weight lifting, stair steppers, etc. until the industrial engineering analyst approves these activities. Check with the industrial engineering analyst on your first follow-up visit. CALL YOUR PHYSICIAN at [phone]: -If bleeding should occur from the catheter insertion site- apply pressure to the site then immediately call us. -Report any fever, redness, drainage, increased swelling, or firmness at the catheter insertion site. Some bruising or slight swelling may be present at the time of discharge. -Should arm or leg become cold, numb, white, or blue, contact the industrial engineering analyst immediately. -IF you should experience episodes of [...] is recommended. Please call Central Scheduling at [phone] to schedule your appointment.] The attending industrial engineering analyst or [facility] nurse clinician should provide you with specific instructions regarding activity, diet, medications, and further follow up for you. Follow the medication instructions provided on your discharge. If the dosages and instructions on this sheet differ from the dosage and instructions on the bottle, follow the instructions on the bottle. [facility] is not responsible for incorrect prescription information provided by the patient during their visit. Do not stop your medications without consulting your health care provider. Please take the list with you to your next doctor's appointment.[facility] Work Phone: Hospital Discharge instructions [...] bleeding fever chills or any other concerns [facility] Work Phone: Progress note No data available for this section [facility] (narrative)* Consultation (Routine) - Authorized Specialty Diagnoses / Procedures Referred By Mary spears Referred To Contact Cardiology Diagnoses Arteriosclerosis of coronary artery Procedures Follow Up In Cardiology Mickey James APRN-CNP [address] [facility] 2, [address] [address] Akhil Olivarez MD [facility] [facility] 2, [address] [address] Referral ID Status Reason Start Date Expiration Date V isits Requested Visits Authorized [id number] Authorized 02/26/2023 02/26/2024 1 1 * Cardiovascular (Routine) - Pending Review Specialty Diagnoses / Procedures Referred By Mary spears Referred To Contact Diagnoses Paroxysmal atrial fibrillation (CMS/HCC) High risk medication use Procedures ECG 12 lead (Clinic Performed) Mickey James APRN-CNP [address] [place] [address], [address] [address] Referral ID Status Reason Start Date Expiration Date V isits Requested Visits Authorized [id number] Pending Review 02/26/2023 02/26/2024 1 1 [facility] Work Phone: Summary Purpose Family History [...] a 6 month follow-up of.Order sent to [facility] for testing due in AprilMARIRVIN CANALES is being seen for a 6 month follow-up of. ERIN CANALES is being seen for a 6 month follow-up of.Amiodarone Order sent to [facility] for testing due in results.ERIN CANALES is [...] test done please contact our office at [phone] and press option #4 so that we may assist you in the problems. * Thank you for your compliance with this testing. * The Staff * [facility] * Please have done June [...] lot. 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 [employer] and the other she cannot recall -reports [...] seen for a 6 month follow-up of.ERIN CAANLES is being seen for F/U Abn stress [...] artery disease) Chief Complaint i48.0 z79.899 PT preferably;[place]anchester palsy Chief Complaint PT preferably;[place]anchester palsy Angina, Cardiomyopathy, HTN Chief Complaint PT preferably;[place] palsy Angina, Cardiomyopathy, HTN Angina, Cardiomyopathy, HTN [...] Foreign body in left ear Chief Complaint hearing aid peice st uck in ear lt ear bleeding headache, sob sss i48.0 Reason for Visit Foreign body in left ear Reason for Referral Specialty Diagnoses / Procedures Referred By Contac t Referred To Contact Diagnoses High risk medication use Procedures Complete Pulmonary Function Test (Spirometry/DLCO/Lung Volumes) Akhil Olivarez MD [address] [place] [address] 2, Tony [address] [place] [id number] Referral ID Status Reason Start Date Expiration Date V isits Requested Visits Authorized [id number] Pending Review 09/10/2023 09/09/2024 1 1 Specialty Diagnoses / Procedures Referred By Contac t Referred To Contact Radiology Diagnoses High risk medication use Procedures XR chest 2 views Akhil Olivarez MD [facility] [facility] 2, Tony [address] [place] [id number] Referral ID Status Reason Start Date Expiration Date Visits Requested Visits Authorized [id number] Pending Review Perform Procedure 09/10/2023 09/09/2024 1 1 Specialty Diagnoses / Procedures Referred By Contac t Referred To Contact Diagnoses Paroxysmal atrial fibrillation (Multi) Procedures ECG 12 Lead Akhil Olivarez MD [address] [place] [address] 2, [address] [address] Referral ID Status Reason Start Date Expiration Date V isits Requested Visits Authorized [id number] Authorized 09/10/2023 09/09/2024 1 1 Specialty Diagnoses / Procedures Referred By Contac t Referred To Contact Cardiology Diagnoses Arteriosclerosis of coronary artery Procedures Follow Up In Cardiology Akhil Olivarez MD [address] [place] [address] 2, [address] [address] Bg Nation MD [facility] [facility] 2, [address] [address] Referral ID Status Reason Start Date Expiration Date V isits Requested Visits Authorized [id number] Authorized 09/10/2023 09/09/2024 1 1 Additional Source Comments INFORMATION SOURCE (unrecogn ized section and content) DATE CREATED AUTHOR 10/03/2017 [facility] DATE CREATED AUTHOR AUTHOR'S ORGANIZ ATION 08/04/2022 [facility] DATE CREATED AUTHOR AUTHOR'S ORGANIZ ATION 09/18/2022 [facility] DATE CREATED AUTHOR AUTHOR'S ORGANIZ ATION 09/18/2022 [facility] DATE CREATED AUTHOR AUTHOR'S ORGANIZ ATION [facility]/20[facility] DATE CREATED AUTHOR AUTHOR'S ORGANIZ ATION 04/06/2023 Paolo Batres [facility] DATE CREATED AUTHOR AUTHOR'S ORGANIZ ATION 04/26/2023 [facility] DATE CREATED AUTHOR AUTHOR'S ORGANIZ ATION 07/27/2023 [facility] DATE CREATED AUTHOR AUTHOR'S ORGANIZ ATION 08/27/2023 [facility] DATE CREATED AUTHOR AUTHOR'S ORGANIZ ATION 09/11/2023 [facility] DATE CREATED AUTHOR AUTHOR'S ORGANIZ ATION 09/16/2023 [facility] DATE CREATED AUTHOR AUTHOR'S ORGANIZ ATION 09/16/2023 [facility] Reason for Visit (unrecogniz ed section and content) Reason Comments Follow Up Reason Comments Follow-up S/p pm insert Specialty Diagnoses / Procedures Referred By Contac t Referred To Contact Diagnoses Paroxysmal atrial fibrillation (CMS/HCC) High risk medication use Procedures ECG 12 lead (Clinic Performed) Mickey James HOSIERY KNITTER-MANAGER OF DISTRIBUTION [facility] [facility] 2, [address] [address] Referral ID Status Reason Start Date Expiration Date V isits Requested Visits Authorized [id number] Pending Review 02/26/2023 02/26/2024 1 1 Reason Comments General Questions Reason Comments Post Op Left eye wts Reason Comments Post Op Reason Comments Follow-up 6m fu about echo ord ered by Dr. Chaudhary Specialty Diagnoses / Procedures Referred By Contac t Referred To Contact Cardiology Diagnoses Arteriosclerosis of coronary artery Procedures Follow Up In Cardiology Mickey James HOSIERY KNITTER-MANAGER OF DISTRIBUTION [facility] [facility] 2, [address] [address] Akhil Olivarez MD [facility] [facility] 2, [address] [place] [address] Referral ID Status Reason Start Date Expiration Date V isits Requested Visits Authorized [id number] Authorized 02/26/2023 02/26/2024 1 1 Care Teams (unrecognized sec tion and content) Team Status: Inactive Member Role Status Lisbeth Summer Tidwell , SOLE CEMENTER-C Primary Care Provider Active Razia Munoz MD RES Active Guillermo Sanders DO Emergency Provider Active Team Status: Active Member Role Status Lisbeth Summer Tidwell , SOLE CEMENTER-C Primary Care Provider Active Stephanie Locke Jr, MD Emergency Provider Active Nguyễn Lopez MD Admit Provider, Attending Jai goldstein Active Team Status: Inactive Member Role Status Lisbeth Summer Tidwell , SOLE CEMENTER-C Primary Care Provider Active Pramod Bess DO Emergency Provider Active Team Status: Active Member Role Status Lisbeth Summer Tidwell , SOLE CEMENTER-C Primary Care Provider Active Team Status: Inactive Member Role Status Lisbeth Summer Tidwell , SOLE CEMENTER-C Primary Care Provider Active Stephanie Locke Jr, MD Emergency Provider Active Nguyễn Lopez MD Admit Provider Active Kale Ross MD Attending Provider Active Matt Servin DO Other Provider Active Team Status: Inactive Member Role Status Lisbeth Summer Tidwell , SOLE CEMENTER-C Primary Care Provider Active Akhil Olivarez MD Attending Provider Active Team Status: Inactive Member Role Status Lisbeth Summer Tidwell , SOLE CEMENTER-C Primary Care Provider Active Doug Montana MD Attending Provider Active Team Status: Inactive Member Role Status Lisbeth Summer Tidwell , SOLE CEMENTER-C Primary Care Provider Active Myorn Villarreal DO Emergency Provider Active Team Status: Active Member Role Status Lisbeth Summer Tidwell , SOLE CEMENTER-C Primary Care Provider Active Elizabeth Zimmerman APRN SOLE CEMENTER-C Attending Provider A ctive Team Status: Inactive Member Role Status Lisbeth Summer Tidwell , SOLE CEMENTER-C Primary Care Provider Active Elizabeth Zimmerman APRN SOLE CEMENTER-C Attending Provider A ctive Team Status: Active [...] Active Akhil Olivarez MD Attending Provider Active Manager Media Relations Relationship Specialty Start Date End Date Los Chaudhary MD [address] [facility] [place] [address] PCP - General Family Medicine 12/05/22 Manager Media Relations Relationship Specialty Start Date End Date Los Chaudhary MD [address] [place] [address] PCP - General 07/05/22 Manager Media Relations Relationship Specialty Start Date End Date Los Chaudhary MD [address] [place] [address] PCP - General Family Medicine 12/05/22 Manager Media Relations Relationship Specialty Start Date End Date Los Chaudhary MD [address] [place] [address] PCP - General Family Medicine 12/05/22 Team [...] July 12, 2023 End: July 12, 2023 ZONIA RicoC Attending Provider Active S tart: July 12, 2023 End: July 12, 2023 Team Status: Inactive Member Role Status Dates Los Chaudhary MD Primary Care Provider Active Start: July 13, 2023 End: July 13, 2023 Daily [facility] Emergency Provider Active Start: July 13, 2023 End: July 13, 2023 Manager Media Relations Relationship Specialty Start Date End Date Los Chaudhary MD [address] [place] [id number] PCP - General Family Medicine 12/05/22 Team [...] August 17, 2023 End: August 17, 2023 Manager Media Relations Relationship Specialty [place] [address] [place] [id number] PCP - General 07/05/22 Team Status: Inactive Member Role Status Dates Los Chaudhary MD Primary Care Provider Active Start: September 10, 2023 End: September 10, 2023 Akhil Olivarez MD Attending Provider Active Start: September 10, 2023 End: September 10, 2023 Goals (unrecognized section and content) Goals [...] or prosecute any alcohol or drug abuse patient.[facility] the event this information is protected by the Federal Confidentiality of Alcohol and Drug Abuse Patient Records regulations: The Federal rules restrict any use of the information to criminally investigate or prosecute any alcohol or drug abuse patient.[facility] the event this information is protected by the Federal Confidentiality of Alcohol and Drug Abuse Patient Records regulations: The Federal rules restrict any use of the information to criminally investigate or prosecute any alcohol or drug abuse patient.[facility] the event this information is protected by the Federal Confidentiality of Alcohol and Drug Abuse Patient Records regulations: The Federal rules restrict any use of the information to criminally investigate or prosecute any alcohol or drug abuse patient.[facility] FOR RECORDS PERTAINING TO PATIENTS WHO [...] BE BASED ON THE PRIMARY CLINICAL RECORDS. [facility] [facility]. provides no warranty or guarantee of the accuracy or completeness of information in this document.
--- NOTE | 2023-09-17 22:43 | ED.SKABFB1 ---
HPI - Skin/Abscess/Foreign Bdy General Chief complaint: Skin/Abscess/Foreign Body Stated complaint: upper extremity injury Time Seen by Provider: 09/17/23 22:11 Source: patient Mode of arrival: Wheelchair Limitations: no limitations History of Present Illness HPI narrative: 88-year-old female presents for wound on her left forearm which was sustained tonight when she scraped her arm on an object. No other injury was sustained. She had a tetanus shot within the last year. There was some bleeding which has now stopped. Related Data Home Medications ?Medication ?Instructions ?Recorded ?Confirmed amiodarone 200 mg tablet 100 mg PO Q24H 11/06/22 08/30/23 aspirin 81 mg tablet,delayed 81 mg PO .twice a week 11/06/22 08/30/23 release (Adult Low Dose Aspirin) calcium carbonate 600 mg-vitamin 1 tab PO BID 11/06/22 08/30/23 D3 20 mcg (800 unit) chewable tablet (Caltrate 600 plus D) cholecalciferol (vitamin D3) 50 50 mcg PO DAILY 11/06/22 08/30/23 mcg (2,000 unit) capsule (Vitamin D3) clopidogrel 75 mg tablet 75 mg PO DAILY 11/06/22 08/30/23 isosorbide mononitrate 60 mg 60 mg PO DAILY 11/06/22 08/30/23 tablet,extended release 24 hr lisinopril 10 mg tablet 10 mg PO DAILY 11/06/22 08/30/23 nitroglycerin 0.4 mg sublingual 0.4 mg sublingual Q5M PRN chest 11/06/22 08/30/23 tablet pain nortriptyline 25 mg capsule 25 mg PO DAILY 11/06/22 11/06/22 omega 3 350 mg-dha 235 mg-epa 90 1 cap PO DAILY 11/06/22 08/30/23 mg-fish oil 597 mg capsule,delay rel ([place]-3) torsemide 5 mg tablet 10 mg PO DAILY 11/06/22 11/06/22 vitamin B complex (B 1 tab PO DAILY 11/06/22 08/30/23 Complex-Vitamin B12 tablet) warfarin 3 mg tablet 3 mg PO .three times a week 11/06/22 08/30/23 lactulose 10 gram/15 mL oral 15 ml PO BID PRN pain 07/20/23 08/30/23 solution tramadol 50 mg tablet 50 mg PO Q8H PRN pain 07/20/23 08/30/23 furosemide 40 mg tablet 40 mg PO DAILY 08/30/23 08/30/23 levothyroxine 75 mcg tablet mcg 08/30/23 spironolactone 25 mg tablet mg 08/30/23 torsemide 10 mg tablet mg 08/30/23 warfarin 6 mg tablet mg PO .four times a week 08/30/23 Previous Rx's ?Medication ?Instructions ?Recorded cephalexin 500 mg capsule 500 mg PO TID 5 days #15 caps 09/11/23 Allergies Allergy/AdvReac Type Severity Reaction Status Date / Time ibuprofen Allergy Intermediate Hives Verified 09/17/23 21:27 [id number] Reductase AdvReac Mild myalgia Verified 09/17/23 21:27 Inhibitor betablockers AdvReac bradycardia Uncoded 09/17/23 21:27 Review of Systems ROS Narrative A ten point review of systems is negative except as noted above. 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) Angina pectoris ?I20.9 - Angina pectoris, unspecified (ICD-10) Obesity ?E66.9 - Obesity, unspecified (ICD-10) Cardiomyopathy ?I42.9 - Cardiomyopathy, unspecified (ICD-10) Mitral regurgitation ?I34.0 - Nonrheumatic mitral (valve) insufficiency (ICD-10) Hyperlipidemia ?E78.5 - Hyperlipidemia, unspecified (ICD-10) Hypertension ?I10 - Essential (primary) hypertension (ICD-10) Coronary artery disease ?I25.10 - Atherosclerotic heart disease of [place] coronary artery without angina pectoris (ICD-10) Surgical History (Updated 11/06/22 @ 13:07 by Jamie Locke RN) History of hip surgery ?Z98.890 - Other specified postprocedural states (ICD-10) Stented coronary artery ?Z95.5 - Presence of coronary angioplasty implant and graft (ICD-10) Exam Narrative Exam Narrative: Nurses note and vital signs reviewed and patient is not hypoxic. General: The patient appears well and in no apparent distress. Patient is resting comfortably on cart. Skin: Warm, dry, no pallor noted. There is no rash noted. Skin tear present on the left forearm on the extensor side. No active bleeding. Head: Normocephalic, atraumatic Eye: Normal conjunctiva, no drainage Ears, Nose, Mouth, and Throat: oral mucosa is moist. Nares patent. Cardiovascular: Not tachycardic Respiratory: Patient is in no distress, no accessory muscle use Back: non-tender GI: Soft and nontender Musculoskeletal: Left elbow and left wrist are nontender and have good range of motion Neurological: Awake and alert Psychiatric: Cooperative Constitutional Vital Signs, click to edit/add: Last Vital Signs Temp 98.2 F 09/17/23 21:21 Pulse 56 L 09/17/23 21:21 Resp 20 09/17/23 21:21 BP 138/82 09/17/23 21:21 Pulse Ox 97 09/17/23 21:21 O2 Del Method Room Air 09/17/23 21:21 Course Vital Signs Vital signs: Vital Signs Temperature 98.2 F 09/17/23 21:21 Pulse Rate 56 L 09/17/23 21:21 Respiratory Rate 20 09/17/23 21:21 Blood Pressure 138/82 09/17/23 21:21 Pulse Oximetry 97 09/17/23 21:21 Oxygen Delivery Method Room Air 09/17/23 21:21 Temperature 98.2 F 09/17/23 21:21 Pulse Rate 56 L 09/17/23 21:21 Respiratory Rate 20 09/17/23 21:21 Blood Pressure 138/82 09/17/23 21:21 Pulse Oximetry 97 09/17/23 21:21 Oxygen Delivery Method Room Air 09/17/23 21:21 MDM - Skin/Abscess/Foreign Bdy MDM Narrative Medical decision making narrative: Skin tear identified. The wound was cleansed and nonstick dressing applied. Treatment diagnosis and follow-up were discussed with the patient and her family. Differential Diagnosis Differential diagnosis: Likely other (Laceration, skin tear) Discharge Plan Discharge Stand Alone Forms: Portal Instructions Chief Complaint: Skin/Abscess/Foreign Body Clinical Impression: Skin tear Patient Disposition: Home, Self-Care Time of Disposition Decision: 22:43 Condition: Good Mode of Transportation: Private Vehicle Prescriptions / Home Meds: No Action lactulose 10 gram/15 mL solution 15 ml PO BID PRN (Reason: pain) tramadol 50 mg tablet 50 mg PO Q8H PRN (Reason: pain) amiodarone 200 mg tablet 100 mg PO Q24H clopidogrel 75 mg tablet 75 mg PO DAILY isosorbide mononitrate 60 mg tablet extended release 24 hr 60 mg PO DAILY aspirin [Adult Low Dose Aspirin] 81 mg tablet,delayed release (DR/EC) 81 mg PO .twice a week torsemide 5 mg tablet 10 mg PO DAILY warfarin 3 mg tablet 3 mg PO .three times a week Rx Instructions: Sunday, Sunday, Sunday [place]-3 350 mg-235 mg- 90 mg-597 mg capsule,delayed release(DR/EC) 1 cap PO DAILY lisinopril 10 mg tablet 10 mg PO DAILY cholecalciferol (vitamin D3) [Vitamin D3] 50 mcg (2,000 unit) capsule 50 mcg PO DAILY vitamin B complex [B Complex-Vitamin B12] Tablet 1 tab PO DAILY nitroglycerin 0.4 mg tablet, sublingual 0.4 mg sublingual Q5M PRN (Reason: chest pain) Caltrate 600 plus D 600 mg-20 mcg (800 unit) tablet,chewable 1 tab PO BID nortriptyline 25 mg capsule 25 mg PO DAILY furosemide 40 mg tablet 40 mg PO DAILY levothyroxine 75 mcg tablet spironolactone 25 mg tablet warfarin 6 mg tablet PO .four times a week Rx Instructions: Sunday, Sunday, , and Sunday torsemide 10 mg tablet cephalexin 500 mg capsule 500 mg PO TID 5 Days Qty: 15 0RF Print Language: Dutch Instructions: Skin Tear (ED) Referrals: Del Jiang MD [Primary Care Provider] - 1 week
--- NOTE | 2023-09-17 23:20 | PC.NURSE ---
Pt presents to ER with skin tear to left forearm after a fall Pt denies injury during fall, only wants the skin tears evaluated Pt's daughter at bedside Per Dr. Han this nurse applied an adaptic dressing, gauze, and coban Pt and her daughter were shown to reapply bandage and wound care instructions were provided
== END 2023-09-17 23:20 | disposition home or self-care (01) ==
PROVIDERS: Emergency Provider Emergency Medicine; PCP Family Medicine
DX: S51.822A Laceration with foreign body of left forearm, initial encounter (principal); W22.8XXA Striking against or struck by other objects, initial encounter
CPT/HCPCS: 99281

== ENCOUNTER 2023-09-19 13:15 | Outpatient (OUT) | payer OTHER, SELFPAY ==
--- NOTE | 2023-09-19 13:30 | VEIN_ITS ---
The [address] [address] Patient Name: MAGGIE CANALES MRN: [id number] date: 1935 Sex: F Assigned Patient Location: Current Patient Location: Accession/Order Number: [id number] Exam Date: 09/19/2023 13:35 Report Date: 09/19/2023 14:43 At the request of: ILSA COYLE Procedure: VC Endovenous Ablation 1VeinRT EXAMINATION: VC Endovenous Ablation 1Vein right great saphenous vein HISTORY: I83.813 Bilateral leg painful varicose veins COMPARISON: No relevant comparison available. TECHNIQUE: The risks and benefits of the procedure had been previously discussed, and were rediscussed at length. Informed written consent was obtained. Karolyn Guevara and Edmund Tian assisted. Time out procedure was performed. The right lower extremity was prepared and draped in the usual sterile fashion to allow knee flexion in the sterile field. Duplex ultrasound probe was draped in a sterile cover, sterile transmission gel was used. Venous mapping was performed with the areas of dilation and large tributaries marked. The total length was 19.5 cm from the entry mid to distal thigh 3 cm below the saphenofemoral junction. Access was obtained below this region however the wire could not be advanced. The diameter of the greater saphenous vein ranged from 5-8 mm. A 30 gauge needle and 1% buffered lidocaine was used to anesthetize the entry site. A 4 mm incision was made with a scalpel and the saphenous vein was entered percutaneously under direct ultrasound guidance with a micropuncture set, a single stick was successful in gaining access. A micro-guide wire was inserted and the needle removed. A micro-set including a dilator was inserted over the microwire and the needle and dilator were removed. A 0.018 guide wire was inserted through the micro-set and threaded through the saphenous vein to the saphenofemoral junction. The dilator was removed and an introducer sheath was inserted over the wire until the end of the sheath entered the saphenofemoral junction. The dilator and wire were removed and the 600 micron fiber was introduced and placed and positioned so that it extended beyond the sheath and was 3 cm peripheral to the saphenofemoral femoral junction. Final position of the fiber was determined by ultrasound guidance and duplex imaging. Tumescent anesthetic was delivered by ultrasound guidance. 200 cc of fluid was delivered along the entire course of the saphenous vein. The solution consisted of 1000 cc of normal saline with 40 mL of 1% lidocaine and 20 mL of sodium bicarbonate. A final positioning check was made. The energy source was turned on by means of the foot pedal and the fiber and sheath were withdrawn. The total number of Joules delivered was 1458. The laser was active for 182 seconds under continuous pulse, average laser use of 8 J. Laser start time 1428 09/19/2023 . Laser stop time 1432 09/19/2023 . A duplex ultrasound revealed compressibility and flow at the saphenofemoral junction immediately after the procedure. Hemostasis at the access site was achieved. The skin incision of the saphenous vein was closed with a 4 x 4. A compression stocking was applied. Postop instructions were given. A follow up appointment was recommended and scheduled. The patient tolerated the procedure well and was discharged in good condition . VEIN/VC Endovenous Ablation 1VeinRT IMPRESSION: Technically successful endovenous laser ablation of the right great saphenous vein Electronically authenticated by: ILSA COYLE Date: 09/19/2023 14:43
[2023-09-19] MEDS: LIDOCAINE HCL 1% 100 MG/10 ML MDV INJ (14:08)
[2023-09-19] MEDS: 0.9 % SODIUM CHLORIDE 500 ML, LIDOCAINE HCL 20 ML, SODIUM BICARBONATE 10 MEQ INJ (14:10)
== END 2023-09-19 13:16 | disposition home or self-care (01) ==
LOC: VC 13:23
PROVIDERS: PCP Radiology Diagnostic Radiology; Visit Provider Radiology Diagnostic Radiology
DX: I83.813 Varicose veins of bilateral lower extremities with pain (principal)
CPT/HCPCS: 36478

== ENCOUNTER 2023-09-27 14:44 | Observation (INO) | payer OTHER, SELFPAY ==
[2023-09-27] VITALS (8 sets, daily range): BP systolic 109–134; BP diastolic 69–81; PULSE 85–99; TEMP 36.4–36.9; O2SAT 95–98; BMI 33.8; BMI 34.6
--- NOTE | 2023-09-27 14:47 | XR_ITS ---
The [address] [address] Patient Name: MAGGIE CANALES MRN: [id number] date: 1935 Sex: F Assigned Patient Location: ER Current Patient Location: ER Accession/Order Number: [id number] Exam Date: 09/27/2023 15:23 Report Date: 09/27/2023 15:56 At the request of: SALVATORE MERRITT Procedure: XR foot LT min 3V IMAGES REVIEWED: XR foot LT min 3V COMPARISON: None available. CLINICAL INDICATION: Atraumatic pain FINDINGS/IMPRESSION: 1. No evidence of acute osseous abnormality of the left foot. 2. Calcaneal enthesopathy with moderate plantar calcaneal spur. 3. Hyperextension deformity MTP joint and flexion deformity toes. 4. Scattered mild degenerative changes. 5. Peripheral arterial disease. 6. Mild dorsal foot soft tissue swelling. Electronically authenticated by: JOSIE GABRIEL Date: 09/27/2023 15:56
--- NOTE | 2023-09-27 15:07 | ED_ITS ---
HPI - Extremity Problem General Chief complaint: Extremity Injury, Upper Stated complaint: SWOLLEN LEGS, WEAKNESS Time Seen by Provider: 09/27/23 14:47 Source: patient Mode of arrival: ambulance Limitations: physical limitation History of Present Illness HPI Narrative: 88-year-old female presents for 2 main issues. First she states her left foot hurts and it started this morning. There was no injury and she states it hurts if she walks on it and she states that she cannot walk. Second she has some skin tears on her left forearm that have been bleeding but her family has been dressing them and she wanted those looked at as well. No calf pain in either leg. Related Data Home Medications ?Medication ?Instructions ?Recorded ?Confirmed amiodarone 200 mg tablet 100 mg PO Q24H 11/06/22 08/30/23 aspirin 81 mg tablet,delayed 81 mg PO .twice a week 11/06/22 08/30/23 release (Adult Low Dose Aspirin) calcium carbonate 600 mg-vitamin 1 tab PO BID 11/06/22 08/30/23 D3 20 mcg (800 unit) chewable tablet (Caltrate 600 plus D) cholecalciferol (vitamin D3) 50 50 mcg PO DAILY 11/06/22 08/30/23 mcg (2,000 unit) capsule (Vitamin D3) clopidogrel 75 mg tablet 75 mg PO DAILY 11/06/22 08/30/23 isosorbide mononitrate 60 mg 60 mg PO DAILY 11/06/22 08/30/23 tablet,extended release 24 hr lisinopril 10 mg tablet 10 mg PO DAILY 11/06/22 08/30/23 nitroglycerin 0.4 mg sublingual 0.4 mg sublingual Q5M PRN chest 11/06/22 08/30/23 tablet pain nortriptyline 25 mg capsule 25 mg PO DAILY 11/06/22 11/06/22 omega 3 350 mg-dha 235 mg-epa 90 1 cap PO DAILY 11/06/22 08/30/23 mg-fish oil 597 mg capsule,delay rel ([place]-3) torsemide 5 mg tablet 10 mg PO DAILY 11/06/22 11/06/22 vitamin B complex (B 1 tab PO DAILY 11/06/22 08/30/23 Complex-Vitamin B12 tablet) warfarin 3 mg tablet 3 mg PO .three times a week 11/06/22 08/30/23 lactulose 10 gram/15 mL oral 15 ml PO BID PRN pain 07/20/23 08/30/23 solution tramadol 50 mg tablet 50 mg PO Q8H PRN pain 07/20/23 08/30/23 furosemide 40 mg tablet 40 mg PO DAILY 08/30/23 08/30/23 levothyroxine 75 mcg tablet mcg 08/30/23 spironolactone 25 mg tablet mg 08/30/23 torsemide 10 mg tablet mg 08/30/23 warfarin 6 mg tablet mg PO .four times a week 08/30/23 Previous Rx's ?Medication ?Instructions ?Recorded cephalexin 500 mg capsule 500 mg PO TID 5 days #15 caps 09/11/23 Allergies Allergy/AdvReac Type Severity Reaction Status Date / Time ibuprofen Allergy Intermediate Hives Verified 09/27/23 14:48 [id number] Reductase AdvReac Mild myalgia Verified 09/27/23 14:48 Inhibitor betablockers AdvReac bradycardia Uncoded 09/27/23 14:48 Review of Systems ROS Narrative A ten point review of systems is negative except as noted above. 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) Angina pectoris ?I20.9 - Angina pectoris, unspecified (ICD-10) Obesity ?E66.9 - Obesity, unspecified (ICD-10) Cardiomyopathy ?I42.9 - Cardiomyopathy, unspecified (ICD-10) Mitral regurgitation ?I34.0 - Nonrheumatic mitral (valve) insufficiency (ICD-10) Hyperlipidemia ?E78.5 - Hyperlipidemia, unspecified (ICD-10) Hypertension ?I10 - Essential (primary) hypertension (ICD-10) Coronary artery disease ?I25.10 - Atherosclerotic heart disease of [place] coronary artery without angina pectoris (ICD-10) Surgical History (Updated 11/06/22 @ 13:07 by Jamie Locke RN) History of hip surgery ?Z98.890 - Other specified postprocedural states (ICD-10) Stented coronary artery ?Z95.5 - Presence of coronary angioplasty implant and graft (ICD-10) Exam Narrative Exam Narrative: Nurses note and vital signs reviewed and patient is not hypoxic. General: The patient appears well and in no apparent distress. Patient is res ting comfortably on cart. Skin: Warm, dry, no pallor noted. Skin tears present on her left forearm with a minimal amount of bleeding, easily controlled with pressure. Her left foot is minimally swollen but there is no erythema to suggest cellulitis nor any open area. There is a scab on her left lower leg anteriorly which is healing well. Head: Normocephalic, atraumatic Eye: Normal conjunctiva, no drainage Ears, Nose, Mouth, and Throat: oral mucosa is moist. Nares patent. Cardiovascular: Not tachycardic Respiratory: Patient is in no distress, no accessory muscle use, lungs are clear to auscultation, no wheezing, rales or rhonchi Back: non-tender GI: Soft and nontender Musculoskeletal: Symmetric bilateral ankle edema Neurological: A&O, normal speech Psychiatric: Cooperative Constitutional Vital Signs, click to edit/add: Last Vital Signs Temp 98.5 F 09/27/23 14:48 Pulse 97 H 09/27/23 14:48 Resp 18 09/27/23 14:48 BP 134/81 09/27/23 14:48 Pulse Ox 98 09/27/23 14:48 O2 Del Method Room Air 09/27/23 14:48 Course Vital Signs Vital signs: Vital Signs Temperature 98.5 F 09/27/23 14:48 Pulse Rate 97 H 09/27/23 14:48 Respiratory Rate 18 09/27/23 14:48 Blood Pressure 134/81 09/27/23 14:48 Pulse Oximetry 98 09/27/23 14:48 Oxygen Delivery Method Room Air 09/27/23 14:48 Temperature 98.5 F 09/27/23 14:48 Pulse Rate 97 H 09/27/23 14:48 Respiratory Rate 18 09/27/23 14:48 Blood Pressure 134/81 09/27/23 14:48 Pulse Oximetry 98 09/27/23 14:48 Oxygen Delivery Method Room Air 09/27/23 14:48 MDM - Extremity (Nontraumatic) MDM Narrative Medical decision making narrative: Her workup including the x-ray is negative. The patient reports that she cannot walk because of the pain in her foot and she lives by herself. She will be admitted for observation. Findings are discussed with the patient. Differential Diagnosis Differential diagnosis: Likely other (Foot pain, foot fracture) Lab Data Attestation: I reviewed the patient's lab results. Labs: Lab Results 09/27/23 Range/Units 15:07 WBC 7.8 (4.0-11.0) 10^3/uL RBC 3.79 L (4.20-5.40) 10^6/uL Hgb 11.7 L (12.0-16.0) g/dL Hct 38.6 (36.0-48.0) % MCV 101.8 H (81.0-99.0) fL MCH 30.9 (26.7-34.0) pg MCHC 30.3 (29.9-35.2) g/dL RDW 14.2 (11.0-15.0) % Plt Count 174 (150-450) 10^3/uL MPV 10.5 (9.5-13.5) fL Neut % (Auto) 74.0 (43.0-75.0) % Lymph % (Auto) 13.4 L (20.5-60.0) % [place] % (Auto) 10.3 (1.7-12.0) % Eos % (Auto) 1.0 (0.9-7.0) % Baso % (Auto) 0.8 (0.2-2.0) % Neut # (Auto) 5.8 (1.4-6.5) 10^3/uL Lymph # (Auto) 1.1 L (1.2-3.8) 10^3/uL [place] # (Auto) 0.8 (0.3-0.8) 10^3/uL Eos # (Auto) 0.1 (0.0-0.7) 10^3/uL Baso # (Auto) 0.1 (0.0-0.1) 10^3/uL Abs Immat Gran (auto) 0.04 H (0.00-0.03) 10^3/uL Imm/Tot Granulo (auto) 0.5 (0.0-0.5) % Sodium 138 (136-145) mmol/L Potassium 4.6 (3.5-5.1) mmol/L Chloride 104 (98-107) mmol/L Carbon Dioxide 28.0 (21.0-32.0) mmol/L Anion Gap 10.6 BUN 50.0 H (7.0-18.0) mg/dL Creatinine 1.53 H (0.55-1.02) mg/dL Est GFR ( Amer) 39 L (>=60) Est GFR (Non-Af Amer) 32 L (>=60) BUN/Creatinine Ratio 32.7 Glucose 130 H (74-106) mg/dL Calcium 9.2 (8.5-10.1) mg/dL Imaging Data Left foot x-ray: Radiologist's impression: Procedure: XR foot LT min 3V IMAGES REVIEWED: XR foot LT min 3V COMPARISON: None available. CLINICAL INDICATION: Atraumatic pain FINDINGS/IMPRESSION: 1. No evidence of acute osseous abnormality of the left foot. 2. Calcaneal enthesopathy with moderate plantar calcaneal spur. 3. Hyperextension deformity MTP joint and flexion deformity toes. 4. Scattered mild degenerative changes. 5. Peripheral arterial disease. 6. Mild dorsal foot soft tissue swelling. Electronically authenticated by: JOSIE GABRIEL Date: 09/27/2023 15:56 Discharge Plan Discharge Chief Complaint: Extremity Injury, Upper Clinical Impression: Inability to walk, Foot pain, left Patient Disposition: Admitted as Observation Time of Disposition Decision: 16:13 Condition: Good
[2023-09-27 15:27] LABS: Basophils Absolute Auto 0.1 10^3/uL (0.0-0.1); Basophils Percent Auto 0.8 % (0.2-2.0); Eosinophils Absolute Auto 0.1 10^3/uL (0.0-0.7); Hematocrit 38.6 % (36.0-48.0); Hemoglobin 11.7 g/dL (12.0-16.0); Immature Granulocytes Abs Auto 0.04 10^3/uL (0.00-0.03); Immature Granulocytes Pct Auto 0.5 % (0.0-0.5); Lymphocytes Absolute Auto 1.1 10^3/uL (1.2-3.8); Lymphocytes Percent Auto 13.4 % (20.5-60.0); Mean Corpuscular HGB Conc 30.3 g/dL (29.9-35.2); Mean Corpuscular Hemoglobin 30.9 pg (26.7-34.0); Mean Corpuscular Volume 101.8 fL (81.0-99.0); Mean Platelet Volume 10.5 fL (9.5-13.5); Monocytes Absolute Auto 0.8 10^3/uL (0.3-0.8); Monocytes Percent Auto 10.3 % (1.7-12.0); Neutrophils Absolute Auto 5.8 10^3/uL (1.4-6.5); Platelet Count 174 10^3/uL (150-450); Red Blood Count 3.79 10^6/uL (4.20-5.40); Red Cell Distribution Width 14.2 % (11.0-15.0); White Blood Count 7.8 10^3/uL (4.0-11.0)
[2023-09-27] MEDS: SURGIFOAM GEL SPONGE SIZE 100 1 EACH TOPICAL (15:30)
[2023-09-27 15:39] LABS: Anion Gap 10.6; BUN Creatinine Ratio 32.7; Calcium 9.2 mg/dL (8.5-10.1); Chloride 104 mmol/L (98-107); Estimated GFR (African America 39 (>=60); Estimated GFR (Non-African Ame 32 (>=60); Glucose 130 mg/dL (74-106); Potassium 4.6 mmol/L (3.5-5.1); Sodium 138 mmol/L (136-145)
[2023-09-27] MEDS: TRAMADOL HCL 50 MG TABLET PO ×2 (16:46→21:09)
--- OUTSIDE RECORDS SUMMARY | 2023-09-27 17:20 | XMS_ITS | CCD ---
Author Organization [facility] Care Team Providers Care Aboriginal Education Worker Coordinator Name Role Phone JUSTIN BROWN Unavailable Unavailable JUSTIN BROWN Unavailable Unavailable Summer Tidwell Unavailable Unavailable Unavailable HARPREET Tidwell Summer Breonna Primary Care Provider [phone] DO Pramod Bess Emergency Provider DO Guillermo Sanders Emergency Provider MD Stephanie Locke Jr Emergency Provider Al MD Nguyễn Askew Admit Provider Al MD Nguyễn Askew Attending Provider MD Kale Ross Attending Provider DO Matt Servin Other Provider [phone] MD Akhil Olivarez Attending Provider MD Doug Montnaa Attending Provider DO Myron Villarreal Emergency Provider [phone] Los Chaudhary Primary Care Physician HARPREET Tidwell Summer Breonna Primary Care Provider [phone] MD Akhil Olivarez Attending Provider LYNN Zimmerman Attending Provider Los Chaudhary Unavailable HARPREET Tidwell Summer Breonna Primary Care Provider [phone] MD Akhil Olivarez Attending Provider LYNN Zimmerman Attending Provider NEENA .DR MADISON Primary Care Unavailable FAWWAD, REIS H [...] Unavailable NEENA ., DR MADISON Attending Unavailable SHAIKH Omer WHITE Attending Unavailable YAW, SUMMER Primary Care Unavailable FAWSHANICE, H Admitting Unavailable YAW, SUMMER Primary Care Unavailable YAW, SUMMER Admitting Unavailable YAW, SUMMER Attending Unavailable YAW, SUMMER Consulting Unavailable Ersdlq0h, Duxbzy1n Attending Unavailable Dr. Los Chaudhary Primary Care Unavail able Yaw, [employer]CH[employer]ECT-C Summer Breonna Primary Care Provider [phone] DO Pearl Michel Attending Provider [phone] MD Los Chaudhary Primary Care Provider [phone] DO Philip Thompson Emergency Provider [phone] MD Jamie Hathaway Admit Provider MD Jamie Hathaway Attending Provider [phone] DO Philip Thompson Emergency Provider [phone] MD Jamie Hathaway Admit Provider MD Danilo Drummond Attending Provider MD Akhil Olivarez Attending Provider Los Chaudhary MD Primary Care Provider [phone] Anand, Dr. Akhil Boyer Attending Ruma ilaishwarya Chaudhary, Dr. Los Carr Primary Care Unavail able Neena, Dr. Los Carr Primary Care Unavail able Jacob, MsRadha Mickeycrescencio Alamo Attending Jamari James, MsRadha Alamo Referring Jamari Chaudhary, Dr. Los Carr Primary Care Unavail able Sher ELLIOTT, Dr. Akhil Higginbotham Attending Unavailable Sher ELLIOTT, Dr. Akhil Higginbotham Referring Unavailable Neena, Dr. Los Carr Primary Care Unavail able Sher ELLIOTT, Dr. Akhil Higginbotham Attending Unavailable Sher ELLIOTT, Dr. Akhil Higginbotham Referring Unavailable Jacob, MsRadha Alamo Attending Jamari James, MsRadha Alamo Referring Jamari Chaudhary, Dr. Los Carr Primary Care Unavail able Sher ELLIOTT, Dr. Akhil Higginbotham Attending Unavailable Sher ELLIOTT, Dr. Akhil Higginbotham Referring Unavailable Neena, Dr. Los Carr Primary Care Unavail able McGuinadore II, Dr. Akhil Higginbotham Attending Unavailable Sher II, Dr. Akhil Higginbotham Referring Unavailable Sumany, Dr. Los Carr Primary Care Unavail able [...] able MD Los Chaudhary Primary Care Provider [phone] DO Philip Thompson Emergency Provider MD Jamie Hathaway Admit Provider [phone] MD Danilo Drummond Attending Provider [phone] MD Akhil Olivarez Attending Provider Los Chaudhary MD Primary Care Provider [phone] REFERRAL, SELF Admitting Unavailable REFERRAL, SELF Attending [...] Care Provider MD Akhil Olivarez Attending Provider Tanner [employer] SUPERVISOR- Daily Dumas Emergency Provider Los Chaudhary MD Primary Care Provider [phone] SHWETA SOL Referring Unavailable HOY, LOS [...] LEMOS Attending Unavailable FRANKLIN Ovalle Emergency Provider [phone] MD Los Chaudhary Primary Care Provider [phone] MD Akhil Olivarez Attending Provider Kwaku Santamaria Admitting Unavailable Kwaku Santamaria Attending Unavailable NEENA LOS Primary Care Unavailable MD Los Chaudhary Primary Care Provider [phone] MD Akhil Olivarez Attending Provider AKHIL OLIVAREZ Referring Unavailable HOY, LOS CHASE Primary Care Unavailable MICKEY JAMES Attending Unavailable HOY, LOS CHASE Primary Care Unavailable MICKEY JAMES Referring Unavailable HOY, LOS CHASE Primary Care Unavailable AKHIL OLIVAREZ Attending Unavailable MD Akhil Olivarez Referring Provider Kael Chaudharylas M Primary Care Unavailable Pearl Michel Attending Unavailable Pearl Michel Admitting Unavailable Hoy, Los M Primary Care Unavailable Daily Hart Attending Unavailable Daily Hart Admitting Unavailable Hoy, Los M Primary Care Unavailable Arthur Ovalle Attending Unavailable Arthur Ovalle Admitting Unavailable Akhil Olivarez Attending Unavail able Akhil Olivarez Referring Unavail able Akhil Olivarez Admitting Unavail able Hoy, Los M Primary Care Unavailable Akhil Olivarez Attending Unavail able Hoy, Los M Primary Care Unavailable Akhil Olivarez Admitting Unavail able Akhil Olivarez Attending Unavail able Hoy, Los M Primary Care Unavailable Akhil Olivarez Admitting Unavail able Akhil Olivarez Attending Unavail able Akhil Olivarez Admitting Unavail able Sumannhi, Los M Primary Care Unavailable Akhil Olivarez Attending Unavail able Akhil Olivarez Admitting Unavail able Hoy, Los M Primary Care Unavailable Akhil Olivarez Attending Unavail able Neena, Los [...] Montes Consulting Unavailable Patricia Lawson Consulting Unavailable Los Chaudhary M Primary Care Unavailable Pearl Michel Attending Unavailable Pearl Michel Admitting Unavailable Akhil Olivarez Attending Unavail able Akhil Olivarez Admitting Unavail able Neena Los M Primary Care Unavailable MD Los Chaudhary Primary Care Provider [phone] MD Akhil Olivarez Attending Provider Allergies Allergy Classification Reported Allergen(s) Allergy Type Date of Onset Reaction(s) Facility NSAIDs (1 source) Ibuprofen Drug Allergy 3 [facility] Work Phone: (20 sources) ibuprofen; Translations: [ibuprofen] Drug Allergy 3 Unknown (qualifier value), Unknown, [facility] Repository (20 sources) Hmg-Coa Reductase Inhibitors (Statins); Translations: [Statins] Allergy to drug (finding) Myalgia, Other [facility] Repository (20 sources) Ibuprofen; Translations: [Motrin TABS] Drug Allergy [facility] 600 DO Work Phone: (20 sources) Beta-Adrenergic Germán; Translations: [Beta Adrenergic Blockers] Allergy to drug (finding) Bradycardia [facility] 250 DO Work Phone: (2 sources) HMG-CoA reductase inhibitor; Translations: [statins] Drug allergy Walking disability (finding) [facility] (3 sources) Ibuprofen; Translations: [Motrin] Drug Allergy 2 [facility] Repository (10 sources) HMG-CoA reductase inhibitor; Translations: [LSPLEHI-HHR-WM A REDUCTASE INHIBITORS] Drug Intolerance 3 Other: See Comments, Myalgia, Other [facility] (4 sources) beta-Blocking agent; Translations: [BETA-BLOCKERS (BETA-ADRENERGI C BLOCKING AGTS)] Drug Allergy 3 Other [facility] Medications Current Medications Medication Drug Class(es) [...] mg oral tablet (20 sources) Antiarrhythmic Start: 4 take 200 mg by mouth twice daily Amiodarone Active 200 MG PO Twice daily July 31, 2023 12:00am Start: 07-31-2023 take 100 mg by mouth twice daily [...] Start: 07-07-2022 take 1 tablet by natalia th once daily amiodarone (Pacerone) 200 mg [...] 09/18/18 Status: Ordered Aspirin EC 81 MG [facility] TAKE 1 TABLET DAILY TWICE WEEKLY. Quantity: [...] daily Digoxin Discontinued 125 MCG PO Daily April 03, 2017 12:00am January 10, 2022 4:50pm Comment on above: Take 0.125 mg by natalia th. docosahexaenoic acid 120 mg / eicosapentaenoic acid 180 mg oral capsule (20 sources) take 1 capsule by mouth once daily fish oil concentrate ([place]-3) 120-180 mg capsule Take 1 capsule (1 [...] 0 Ordered: 21-Sep-2021 DO Active oxyquinoline sulfate 0.19253 mg/mg / sodium dodecyl sulfate 0.0001 mg/mg vaginal gel (2 sources) Start: 02-20-2019 Trimo-Beal 0.025% vaginal gel with applicator See Instructions, 1 tube(s), Refill(s) 2, Use with cleaning of pessary, [facility] [id number] Start Date: 02/20/19 Status: Ordered Fish Oils [...] NATALIA TH ONCE DAILY DIRECTED. DOSE INCREASED Lactulose (2 sources) Osmotic Laxative Start: 09-20-2023 take 10 g by mouth once daily Lactulose Active 10 GM PO Daily September 20, 2023 12:00am Start: 07-28-2023 take 15 mL by mouth once daily lactulose 10 gram/15 mL solution Take 15 mL (10 g) by mouth once daily. 07/28/2023 Active levothyroxine sodium 0.075 mg oral tablet (7 sources) l-Thyroxine Start: 09-20-2023 take 1 tablet by mouth once daily Levothyroxine (Euthyrox) 75 mcg tablet Active 75 MCG PO Daily September 20, 2023 12:00am Start: 01-01-2023 End: 09-10-2023 take 1 tablet by mouth once levothyroxine (SYNTHROID) 50 mcg tablet Take 1 tablet by mouth every afternoon. 0 01/01/2023 Active take 1 tablet by natalia th once daily in the morning levothyroxine (Synthroid, Levoxyl) 75 mcg tablet Take 1 tablet (75 mcg) by mouth early in the morning.. Take on an empty stomach at the same time each day, either 30 to 60 minutes prior to breakfast Active Comment on above: Take 1 tablet by natalia th every afternoon. lisinopril 10 mg oral tablet (20 sources) [...] Start: 10-29-2012 take 2 tablets by mo sch once daily lisinopril 5 mg tablet Take 10 mg by mouth once daily. 0 10/29/2012 Active Comment on above: Take 10 mg by mouth once daily. mineral oil 0.2 mg/mg / petrolatum 0.8 mg/mg ophthalmic ointment (14 sources) Start: 09-22-2022 White Petrolatum-Mineral Oil (Soothe Night Time Lubricant) 80-20 % Ointment Active 1 APPLIC EYE-LEFT Daily September 22, 2022 12:00am Multivitamin preparation (17 sources) Start: 01-10-2022 take 1 tablet by mouth once daily Multivitamin Active 1 TAB PO Daily January 09, 2022 11:00pm Start: 01-10-2022 take 1 tablet by natalia once daily Multivitamin Active 1 TAB PO Daily January 10, 2022 12:00am nitroglycerin 0.4 mg sublingual tablet (20 sources) Nitrate Vasodilator Start: 06-29-2022 Nitroglyce rin Active 0.4 MG SUBLINGUAL As Directed September 21, 2022 11:00pm Start: 06-27-2022 Nitroglycerin 0.4 MG Sublingual Tablet Sublingual TAKE DIRECTED. Quantity: 25 Refills: 11 Ordered: 29-Jun-2022 Akhil Olivarez MD Start : 27-Jun-2022 Active nitroglycerin reyes blingual (NITROSTAT) 0.6 mg SL tablet Dissolve 0.6 mg under the tongue every 5 minutes as needed for chest pain. 0 Active Comment on above: Dissolve 0.6 mg unde r the tongue every 5 minutes as needed for chest pain. [place] 7-Phu-Xmj-Fish Oil (Fish Oil) 000 mg (120 mg-180 mg) Capsule (20 sources) Start: 11-26-2019 take 1 capsule by mouth once daily [place] 0-Dcb-Htf-Fish Oil (Fish Oil) 1,000 mg (120 mg-180 mg) Capsule Active 1 CAP PO Daily November 25, 2019 11:00pm Start: 11-26-2019 take 1 capsule by [facility] once daily [place] 5-Epm-Myg-Fish Oil (Fish Oil) 1,000 mg (120 mg-180 mg) Capsule Active 1 CAP PO Daily November 26, 2019 12:00am Start: 11-26-2019 take 1 capsule by mo [facility] twice daily [place] 9-Vwz-Amn-Fish Oil (Fish Oil) 1,000 mg (120 mg-180 mg) Capsule Active 1 CAP PO Twice daily November 25, 2019 11:00pm Start: 11-26-2019 take 1 capsule by [facility] twice daily [place] 5-Bru-Gpz-Fish Oil (Fish Oil) 1,000 mg (120 mg-180 mg) Capsule Active 1 CAP PO Twice daily November 26, 2019 12:00am ondansetron 4 mg oral tablet (20 sources) Serotonin-3 Receptor Antagonist Start: 09-20-2023 Ondansetron Hcl Active 4 MG PO 2-3 TIMES PER DAY September 20, 2023 12:00am Start: 10-29-2021 End: 09-22-2022 take 4 mg by mouth every six hours Ondansetron Discontinued 4 MG PO Q6H October 29, 2021 12:00am September 22, 2022 9:10am take 1 tablet by [facility] every eight hours as needed ondansetron (Zofran) 4 mg tablet Take 1 tablet (4 mg) by mouth every 8 hours if needed for nausea or vomiting. Active Selenium (20 sources) Start: 11-26-2019 take 100 ug by mouth once daily Selenium Active 100 MCG PO Daily November 25, 2019 11:00pm Start: 11-26-2019 take 100 ug by mouth once thomas y Selenium Active 100 MCG PO Daily November 26, 2019 12:00am Selenium (2 sources) Start: 10-30-2018 selenium microgram, Oral, Daily, Refills(s) 0 Start Date: 10/30/18 Status: Ordered spironolactone 25 mg oral tablet (2 sources) Aldosterone Antagonist Start: 09-20-2023 take 1 tablet by mouth once daily Spironolactone (Aldactone) 25 mg tablet Active 25 MG PO Daily September 20, 2023 12:00am Start: 08-27-2023 take 1 tablet by natalia th once daily spironolactone (Aldactone) 25 mg tablet Indications: Shortness of breath on exertion , Cardiomyopathy, unspecified type (Multi) Take 1 tablet (25 mg) by mouth once daily. 90 tablet 1 08/27/2023 Active torsemide 10 mg oral tablet (20 sources) Loop Diuretic Start: 07-19-2022 take 10 mg by mouth once daily Torsemide Active 10 MG PO Daily September 21, 2022 11:00pm Start: 07-19-2022 take 1 tablet by natalia th twice daily torsemide (Demadex) 10 mg tablet Take 1 tablet (10 mg) by mouth 2 times a day. 07/19/2022 Active Start: 11-26-2019 End: 09-22-2022 take 5 mg by mouth once daily Torsemide Discontinued 5 MG PO Daily November 26, 2019 12:00am September 22, 2022 9:13am take 2 tablets by mo uth once [...] by mouth see administration instructions. Per the [facility] Active Comment on above: Take 2.5 mg [...] oral tablet (20 sources) Vitamin D Start: 7 End: 0 take 1 tablet by mouth twice daily Calcium Carbonate-Vitamin D3 (Oyster Shell Calcium-Vit D3) 500 mg(1,250mg) -200 unit Tablet Discontinued 1 TAB PO Twice daily 0 April 03, 2017 1:00am November 26, 2019 4:17pm Qmuognerp-Mrsecmxd-Rnz-H yalur (Joint Health) 40-10-5-3.3 mg Tablet (14 sources) Start: 3 End: 4 take 1 tablet by mouth once daily Ytbrrwpkm-Adnelpnr-Iv r-Hyalur (Joint Health) 40-10-5-3.3 mg Tablet Discontinued 1 TAB PO Daily September 22, 2022 12:00am July 31, 2023 7:16pm Start: 09-22-2022 take 1 tablet by natalia th once daily Skxymvore-Ehalanku-Prm-Hyalur (Joint Hea lth) 40-10-5-3.3 mg Tablet Active 1 TAB PO Daily September 21, 2022 11:00pm Start: 09-22-2022 take 1 tablet by natalia th once daily Szcpcmfwm-Rfculpsn-Qef-Hyalur (Joint Hea lth) 40-10-5-3.3 mg Tablet Active [...] twice daily. cephalexin 500 mg oral capsule (17 sources) Cephalosporin Antibacterial Start: 022 End: 023 [...] daily. Active clindamycin 300 mg oral capsule (11 sources) Lincosamide Antibacterial Start: 11-23-2022 End: 07-31-2023 take 600 mg by mouth three times daily Clindamycin Hcl Discontinued 600 MG PO Three times daily 12 2 November 23, 2022 12:00am July 31, 2023 7:17pm cobamamide 0.1 mg / vitamin b12 5 mg sublingual tablet (13 sources) Vitamin B12 Start: 09-25-2022 End: 07-31-2023 Cyanocobalamin-Cob amamide (B12) 5,000-100 mcg Lozenge Discontinued 1 LOZENGE LOZENGE Daily September 25, 2022 12:00am July 31, 2023 7:17pm Start: 09-25-2022 Cyanocobalamin -Cobamamide (B12) 5,000-100 mcg Lozenge Active 1 LOZENGE SUBLINGUAL Daily September 25, 2022 12:00am colestipol hydrochloride 1000 mg oral tablet (11 sources) Bile Acid Sequestrant Start: 11-23-2022 End: [...] 18, 2017 1:00am March 25, 2017 1:02am linseed oil 1000 mg oral capsule (2 sources) take 1 capsule by mouth once daily Flaxseed Oil 1,000 mg cap Take 1 capsule by mouth once daily. 0 Active Comment on above: Take 1 capsule by mo [facility] once daily. meclizine hydrochloride 25 mg oral tablet (20 sources) Antiemetic Start: 10-29-2021 End: 09-22-2022 take [...] (Thera) 400 mcg Tablet (20 sources) Start: 04-03-2017 End: 01-10-2022 take 1 tablet by mouth once daily Multivitamin With Folic Acid (Thera) 400 mcg Tablet Discontinued 1 TAB PO Daily April 03, 2017 12:00am January 10, 2022 [...] 03, 2017 12:00am September 22, 2022 8:09am omega-3/dha/epa/fish oil (OMEGA-3 FISH OIL ORAL) (2 sources) Start: 11-06-2022 omega-3/dha/epa/fish oil (OMEGA-3 FISH OIL ORAL) Take 1 tablet by mouth once daily. 0 11/06/2022 Active Comment on above: Take 1 tablet by naatlia th once daily. omeprazole 20 mg delayed release oral capsule (20 sources) Proton Pump Inhibitor Start: 10-29-2021 End: 01-10-2022 take 20 mg by mouth twice daily Omeprazole Discontinued 20 MG PO Twice daily October 29, 2021 12:00am January 10, 2022 5:51pm OTC NUTRITIONAL SUPPLEMENT (2 sources) take 1 tablet by mouth once daily OTC NUTRITIONAL SUPPLEMENT Take 1 tablet by mouth once daily. Joint Health 0 Active Comment on above: Take 1 tablet by natalia th once daily. Joint [facility] pantoprazole 20 mg delayed release oral tablet (11 sources) Proton Pump Inhibitor Start: 11-24-2022 End: [...] started sennosides, shelter 8.6 mg oral tablet (20 sources) Start: 04-03-2017 End: 11-26-2019 take 2 tablets by mouth once daily Sennosides (Senna Lax) 8.6 mg Tablet Discontinued 2 TAB PO DAILY@12 0 April 03, 2017 1:00am November 26, 2019 4:11pm SITagliptin 100 mg oral tablet (11 sources) Dipeptidyl Peptidase 4 Inhibitor Start: 11-23-2022 [...] on above: take 1 tablet by natalia four times a day as needed triamcinolone acetonide 1 mg/ml topical cream (6 sources) Corticosteroid Start: 11-29-2022 Triamcinolone Acetonide 0.1 [...] on above: Take 1,000 mcg by mo [facility] once daily. Vitamin B12 TABS (20 sources) [...] [Coronary atherosclerosis of unspecified type of vessel, habematolel or graft] Onset: 3 10-28-2021 Chronic Deficiency [...] sources) Long-term current use of anticoagulant; Translations: [penitentiary (current) use of anticoagulants] Onset: 3 10-28-2021 Episodic Other aftercare (5 sources) Encounter for therapeutic drug level monitoring; Translations: [ENC THERAPEUTC DRUG LEVL MONITORING] Onset: 3 Episodic Other aftercare (4 sources) Taking high risk medication; Translations: [Other extermination supervisor (current) drug therapy] Onset: 3 02-26-2023 Episodic [...] Episodic Other ear and sense organ disorders (5 sources) Otorrhagia of left ear; Translations: [Otorrhagia, left ear] 07-13-2023 Episodic Other eye disorders (17 sources) Chemosis of conjunctiva; Translations: [Conjunctival edema, unspecified eye] 01-10-2022 Episodic Other injuries and conditions due to external causes (5 sources) Foreign body in left ear, initial encounter; Translations: [Foreign body in ear] 07-12-2023 Episodic Other lower respiratory disease (20 sources) Dyspnea on exertion; Translations: [Shortness of [...] 11-19-2022 11-17-2022 Episodic Other aftercare (9 sources) penitentiary (current) use of anticoagulants; Translations: [Long-term (current) use of anticoagulants] Onset: 09-06-2022 10-28-2021 Episodic Other aftercare (4 sources) Other intermediate (current) drug therapy; Translations: [Other intermediate (current) drug therapy] Onset: 01-23-2023 Episodic Other [...] Test Name Value Interpretation Reference Range Facility Carbon dioxide, total [Moles /volume] in Serum or PlasmaOrdered By: Akhil Olivarez on 09-21-2023 CO2 [Moles/Vol] 27.8 mmol/L Normal 21.0-31.0 [facility] Comment on above: Performed By: #### L YTES #### [facility] [address] [place] [address] [place] Chloride [Moles/volume] in S payal or PlasmaOrdered By: Akhil Olivarez on 09-21-2023 Chloride [Moles/Vol] 101 mmol/L Normal 98-107 [facility] Comment on above: Performed By: #### L YTES #### [facility] [address] [place] [address] [place] ECG 12 lead ECGon 09-21-2023 ECG 12 lead ECG [facility] [address] [place] [address] [place] [address] Electrocardiograph Report Signed Patient: Erin Canales MR#: [id number] : 1935 Acct:[id number] Age/Sex: 88 / F ADM Date: 09/21/23 Loc: PO Room: Type: [facility] Attending Dr: Akhil Olivarez MD Ordering Provider: Akhil Olivarez MD Date of Service: 09/21/23 ECG/ECG 12 lead ECG: Pre-cardioversion rhythm assessment Copies to: Test Reason : Blood Pressure : / mmHG Vent. 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 pacemaker failure Possible Junctional rhythm Low voltage QRS Cannot rule out Anterior infarct (cited on or before 21-SEP-2023) Abnormal ECG When compared with ECG of 31-JUL-2023 15:14, Current undetermined rhythm precludes rhythm comparison, needs review Nonspecific T wave abnormality, worse in Lateral leads Confirmed by Edward Patterson ([id number]) on 09/21/2023 12:12:29 PM Referred By: Akhil Olivarez Electronically Signed By:Edward Patterson Transcribed By: MUS Signed By Edward Patterson MD 09/21/23 1212 Normal [facility] ECG post procedureon 024 ECG post procedure [facility] [place] [address] Electrocardiograph Report Signed Patient: Erin Canales MR#: [id number] : 1935 Acct:[id number] Age/Sex: 88 / F ADM Date: 09/21/23 Loc: PO Room: Type: [facility] Attending Dr: Akhil Olivarez MD Ordering Provider: Akhil Olivarez MD Date of Service: 09/21/23/ ECG/ECG post procedure: cv Copies to: Test Reason : Blood Pressure : 095/066 mmHG Vent. Rate : 059 BPM Atrial Rate : 058 BPM P-R Int : 000 ms QRS Dur : 102 ms QT Int : 410 ms P-R-T Axes : 000 021 090 degrees QTc Int : 405 ms Atrial-paced rhythm Low voltage QRS Cannot rule out Anterior infarct (cited on or before 21-SEP-2023) Abnormal ECG Confirmed by Edward Patterson ([id number]) on 09/21/2023 1:31:55 PM Referred By: Akhil Olivarez Electronically Signed By:Edward Patterson Transcribed By: MUS Signed By Edward Patterson MD 09/21/23 1331 Normal [facility] INR in Platelet poor plasma by Coagulation assayOrdered By: Akhil Olivarez on 09-21-2023 INR Coag (PPP) [Relative time] 5.4 {INR} Off scale [facility] Comment on above: INR Therapeutic Rang [...] heart valves: 3 - 4.5 PERFORMED BY: [place] [address] PATHOLOGIST RIG SITE ENGINEER GIULIA VALERIO M.D. Performed By: #### P T ####[address] Potassium [Moles/volume] in Serum or PlasmaOrdered By: Akhil Olivarez on 09-21-2023 Potassium [Moles/Vol] 4.3 mmol/L Normal 3.5-5.1 [facility] Comment on above: Performed By: #### L YTES #### [address] Prothrombin time (PT)Ordered By: Akhil Olivarez on 09-21-2023 PT Coag (PPP) [Time] 60.1 s High 9.0-12.9 [facility] Comment on above: Results calledat 094 2 on 09/21/23 A hematocrit value greater than 55% may lead to inaccurate results in coagulation testing. Patients having hematocrit values >55% require a special collection tube for coagulation studies. Please contact the laboratory at [phone] for redraw instructions. Result Comment: Resu lts called at 0942 on 09/21/23 A hematocrit value greater than 55% may lead to inaccurate results in coagulation testing. Patients having hematocrit values >55% require a special collection tube for coagulation studies. Please contact the laboratory at [phone] for redraw instructions. Performed By: #### P T ####[facility] [id number] Serum or plasma anion gap de terminationOrdered By: Akhil Olivarez on 09-21-2023 Anion gap [Moles/Vol] 14.5 mmol/L Normal 6.0-15.0 [facility] Comment on above: Result Comment: PERF ORMED BY: [place] [address] PATHOLOGIST RIG SITE ENGINEER GIULIA VALERIO M.D. Performed By: #### L YTES #### [facility] [address] [place] [address] Sodium [Moles/volume] in Ser um or PlasmaOrdered By: Akhil Olivarez on 09-21-2023 Sodium [Moles/Vol] 139 mmol/L Normal 136-145 [facility] Comment on above: Performed By: #### L YTES #### [address] Amiodarone (Cordarone), Seru mon 09-10-2023 Amiodarone, Serum 1551 ng/mL Normal [id number] [facility] Comment on above: Performed By: #### P T, BNP, PTT #### [address] Noramiodarone, Serum 1084 ng/mL Normal . [facility] Comment on above: Result Comment: Note : To convert from ng/ml to ug/ml, divide the result by 1000. Reference range (amiodarone): 1.00-2.50 ug/mL. This test was developed and its performance characteristics determined by [facility]. It has not been cleared or approved by the Food and Drug Administration. Performed at: [facility] [address] [place] [address] [id number] Steel Fabricator: Denise Sánchez, Phone: [phone] PERFORMED BY: [place] [address] PATHOLOGIST RIG SITE ENGINEER GIULIA VALERIO M.D. Performed By: #### P T, BNP, PTT #### [address] ECG 12 [place]on 09-10-2023 Atrial fibrillation with occasional apparent conduction Rightward axis low voltage QRS Poor anterior R wave progression QTc 512 ms [facility] Work Phone: Serum or plasma amiodarone m easurement (mass/volume)Ordered By: Akhil Olivarez on 09-10-2023 Amiodarone [Mass/Vol] 1551 ng/mL [id number] [facility] Serum or plasma desethylamio darone measurement (mass/volume)Ordered By: Akhil Olivarez on 09-10-2023 Desethylamiodarone [Mass/Vol] 1084 ng/mL . [facility] Comment on above: Note: To convert fro m ng/ml to ug/ml, divide the result by 1000. Reference range (amiodarone): 1.00-2.50 ug/mL.This test was developed and its performance characteristicsdetermined by [facility]. It has not been cleared or approvedby the Food and Drug Administration.Performed at: [facility] [place] [address] [id number] Director: Denise Sánchez, Phone: [phone] XR Chest 2 Viewson 4 These images are not reportable by radiology and will not be interpreted by Radiologists. IMAGING Coding Summaryon 08-24-2023 Coding Summary HTMLBase 64 WtarksvcEVz8gOw+PGhlYWQ+PE1 PZKAqQ87qzJFzdN8hJ5CHIAzKFc tkMXLDNPrMIwDeodUzMC9loMBuJ XJu IC8+LZ5sEQBaYqhiyWVbz7C6gBG 9K81sri9tKCxhvMM2MDAsHyWpou vrr6shiEy7VVrgSjpzUzDb XKKppM64ISF8aA30Vg54rQVetIJ kj3bpyFn5FxGaVCCdEGB1zShpUL qpe5PeEHLyI03rcEGmh3C7 CCLqlUkhaSIbYjWsvPG1bW3bJKt dxnkna7uklrusVlo4tf51dVJsx6 L6tEN9H5HivyE0JEYhqVIz ZxwbtNGEnU7pplsxw4wzoyldSgE nUYYfLVj1OPa6VTOceKyqRoFtLR 38EER1ZRTbrjTeC5HbMCAf lTtgLcD3m2I7Xv9FS0DGEfidS2U NTUFSWTwvdGQ+DD67yg68P6SuHz lzGtp2DJGlDLG7oSW1sD6j UGQyDZfam9C7aPG8Q8TndxCdrm7 za8tiNATnMVwxG31drYVad9G3KS MqyTV2EJDaiXshNuYryA78 Oyc+JWMkiMrgk2JuRhlkf3bna4v luKf0ZwcwTPPcdiTviVzsFME1j3 FkTw0pMPUgzEZ1qGA1oL7e RgEoTsI9YVtlB063XoChhRHmIes kR52pF6UtoBA+WDSjBuq5UBDsfY oaAD6fB9UsGQAozogvkQDi kXprZK4eDAMczylrMCSwxN9mCAI nR6l5MmLbUlJ7BRwjT2JqDOHcww yiPl02oY9cVtXzEkT8REbb S7CnhaI6LGVcwBIhSQaqHGK0D28 es2X0JBZtDBAwNFD7nAU4pD0nlT lnbjogbGVmdDsgdmVydGlj DGkcPIchQ711XBOzgGvrAlFkECk uZyBEYXRlOiAgMDUvMTcvMjAyND wvdGQ+JKQeTXO5iZxvHDGr aIJzAVheTg3dbMnvjMceTK7lMXO qyuioFFHgxU8xSIMnxCZvlZkdOH 7pTAUlzovxf925UyMpGMU9 IFGfpXSrJ5TykL2aGpNyXOGuFSR dO8HpbLWdNPnpU303ASbtCfM3SK BydqYxU5CpMMCbjMssHsI1 v7I4Xu7Bx8AmntrkS4RidZEiEfD fJnsbQHo3K1KaWgeygVE+PC90YW UgUU69LBt6ERL8dYraVCcr XSDmI0IwnR2iZbKqHFGkLJZwLvp +PHRhYmxlIHdpZHRoPScxMDAlJy JesJiyBM7sPi8pAQEtLKUz vPgavOLgGuTxi7rvONBpFGfzMO0 xxOewU7EobPG8YTKxd1c8Lj11T9 0qA6DgkTT+GVHeiBP2hTJ0 nG7mBoZkWgS4WUjmY756RoUsnOW bChhto7bfx6dkvUf3KkA0UQAzhk LjhUeqHNK8w2DvHl94K38w IHdpZHRoPSIxNSUiIHZhbGlnbj0 qlJ4gLh5+OTCltCD4nKX8hV8bQi SqFwR9EUwpN223EhVelCMz Pnjri8llc0jspAi7EqXxYJDsmrB yhNfeVLZ6e7GjMh01Y2EviEidh5 CvSta3ws93dZDgz3K3mSA4 M0IlSNZauunpiAQgbFdhDB7uZBI nizksCJQaiI4oAZYmA4i0UhDmNx L8OLgcL7UjvqR2QVWurQIy WSCgwUPJmF2cblbmn4laqkobTnQ fWUBxEQh7JXh5TCAmiWwaVfHiWP A6GjM0WTV2mCBnaS6npFdq thejvT0xJim+DKV9bGHaiCFVUM4 lOjwvdGQ+ZQKbRPP5iOiqIHsnHC SbxJ9eHJBhV3t0OiRcLlC0 QJioD0LcpoT9DIMxgXTqAQQlvIX UyT9jznkwm2ehmryoIvTwJBUoID c2IFf4YNUipSlcDxGfXOR1 UcX2REE4sKOidW0hjQljbvlusT6 wOyc+OvdzaGsqCLN6WLw3V6XqEp z7SYWriAtzYU9dcCOiQVzc Lc4abTqgxPxeFS3mKAOklhpjh07 9IkNqs8loVAYzmLDqWTlfIPD6H0 7nz0Z1QHDgVJZpSIA4sZP9 eM9gnMgiuwbfkPNhqLkbknCajHd pHRldESeuC664RFRhgPivVnLjJT h0S7UvOaw7UPBtcFteFY6f cAOuMYuaSe9niMmnsEdvCI3yFDN famrqb029HaMbw0deFCIpzPObHO usMVW3L53pl7Z0HVGyODOz ACI5mIB6vY4woHygnxejgDPihSt qxaLeePmcZVcgZCqtX666FAKctX ixHfLfkGr3R8PrDmz9XBMn zNqdYP9kpUWxKDfbLo9xsPbtkZh wQF3rBQUzruqaq555RxXeq2wuFY WxwKWmAUybVTE2Z33ej9L1 OCRxQFRcWZF3bQS4vA1msFtctxn gbGVmdDsgdmVydGljYWwtYWxpZ2 46IHRvcDsnPlBhdGllbnQg CKzyJBn6D6MnSxmaiZE+LG50UWM oSI42uVEwbASgx4mspZg4GuXfUY WzQJT5xJwdXDooj6KzPVRb B98zlOAcp1P7YXKbaRretVWeZvZ rxJN5xE5xCShdqwnyl9hdrdrfVz pih2wpnz69pI10N70kXFvl HOXzCWWxIJTkCPBvwZgzyn8vzP2 wIi8+RUPfxGZ8tQB8yM9oVYVrHa X9RAtpF033FyVcwSXqHsmq m2hky8feoTw6ZhC1XVDnofUlvDz mUZT5f7DpKd97M85pLOghTWArBM KvDFHcDCNkuGehuu3lmL8w Ii8+KQZbtBN2qQU0gW8eWeJhQqJ 0DHtpM440AnGdwWXjOfdhZ94zM3 JvdXA+FLQaWux0TYWhaYtk MW5ygRCnDLmjTs6vXTL1EpMcOfH oUDtkC7SiMQGchfsdonjfjYN9VR NrADYmvQ04Lu7tiMosBJQh dVBIjQ3khnwex5tddwayWsQwTRP wAUm7NMp8LJIghUonVrZgQTZ8Fk V3CED1gYBipE9avTuoxwyt oM0rP0OtPOOpxfexFu86zG4sSrM xJjF0LMtcLpm+GGcHTFFcUU8HMz xFQH7XFEr1G2XiJxx6STGc uIfuQB4alLPeMOsbEg8cdKefhQv yBU6xZXEkmqshZWGweU8uOFWbzC NfkFfcLU2zZQPbuavzs761 ElWuCVT6LNItqBBhX3XrsP0vYaR iUQFiFKBuZ0LmtUJtIAsbA473JG ivBoH2BUKjltVwI5UtIZCr sQrlPtO7o3A0Av0eAv0tVs0eHDE 5DI55BJ27zXDzr1O0iRV3Q1PcCS GupsawxnlqcCB8MNSuAVHn sH01cGWpNFveRx1fc6N5p789QCE gQCOvpV78Op8zjZiaXLOifYFMnQ 3zjwksq4peaxfrVrZkDWNy LXg2CBc6ODIobQgsHjXcCHY0XbT 7BMR1uWZxbX9zcYnadzhtbL2fXy c+HKljVRDiriN3I8UeUnm1 IKBszMjgVN5agSDsJRmsLa4wyTa pmLvnBV0mRZFuumfbMUQitP5cTR DkeBRdwQphCX6oRWVwrtbd k939TgNaJMZ0BHPofYXkQ0PtnL7 uCiQpVUMuYQSdB9GymIWbHQcwO3 47LRxwFsV4FMPcpwHhK9Et EWTpuHwtBfZ4n6Z0Wu5EAR2DUYQ 2G7YxLbg5HOFtyQyyHN3jdMOgWL ywLp9oiNucdCfbLW9bRLUi wubmRQWzbI7qBBVllRElwSfkQM8 sAPEmdjrup293BqIdJYQ8OZCgoX PwW9JtfY1zHtPbZHXvSQLl F3NnnHNkUTliR235CNpsBkA2CVN xzbJhN8WjFLWmsAhpFiH3d1Z6Mq 9MiLIzL8XnE9c9A9AsUgub dHI+VR40OSUrJK28lXFjiRFbn8i zeMo8YzWrUMZlMRP9ePbsTNugw2 YzKHZvK72igMQvi1C7UNMh zOcalURmIvMneTP8qW3iQAkpqpr aa4otmezvXcweh8gkwf56rW25E9 9sIHdpZHRoPSIzMCUiIHZh mFrgga6sxR4jZt8+PBNlzPE9iKL 4rD9dKyBkUqM1RJvmO601SrCvmM YiSelaq9qae4zwfSl8XrSg LHRmnuLziSmaXUD8o3GsNm06B78 sIHdpZHRoPSIyMCUiIHZhbGlnbj 1vnT2xAt4+ZD0qi6velq18 kL24mZV+DBAzCMA1oFtmLEslHNO asE6vJBtaNqA2QRCrZcSsdS26bH OqFNkfEk6xqAsgkKxeQH3f ADHboiaws670AhFjx0fzMXRbxVJ hSVlzDEH8L44vh4A5PRCePYLjQR S8cWX3yL8pgSnnoeljxOWw yQyiroHafUilGXcvFSemE122MWO wfRjeTlJvrPEmI7ayzuKHGC8vZe wvdGQ+ZWObJYD1uYtdDTcp EEVhjW1dJXQoZ5t2HqEcGbF1MRs aB3VnxcW3PIXzxSFfGLTjyRMNcT 6hqmjml3jtzpawJhCuANFt QEc3QXs7COKfwYmwGhQdAGJ0TlB 9BEA8qWWnuD0owFsrihxutS1eBr c+RklOOjwvdGQ+PHRkIHN0 qEvvGKmyDTCpaW6ySVXaI8m0AgF uIaX6DYgaW6AnlgE9ORVinCZaSR AtfZQJvQ0eflxpx2dzthoc RtTnDXDdQUe3PGy6ZKDiyTwiVnD tYXD3JjF9RQI5qCSkhC8acOpkdd jsmB5aNki+TVJOOjwvdGQ+ PIIhJMI9iLhbWHaiHZTaqP2tVJG xL0c3SyNzNrB9DDaoG5TbagU3DH AcoFObUXDnvJEJtY9nvzet q4ystfahGwCiFGJxKAz2ADt9VQU caRkmVmJfOYJ9KkY1VTU9xAPtiI 2jrVyivgqlmB8hPjk+UGF5 ZED9JO75UF67E7QbDwoazJQxsIR +PHRhYmxlIHdpZHRoPScxMDAlJy GlyXxzVH8rCh8vWHCdVUEg bGx (more content not included)... Normal [facility] .Auto Diff 08-18-2023 Auto [place] % 9 % Normal 04-20 [facility] Comment on above: Performed By: #### 1 [id number], 7868111, [id number], 0773907736, 3552314, [id number] #### [facility] (DEFAULT) [address] [place] [address] 80529 Baso Abs# 0.1 x10 Normal 0.0-0.2 [facility] Comment on above: Performed By: #### 1 [id number], 0313913, , [id number], 7375950, 80021183 #### [facility] (DEFAULT) [address] [place] [address] 51422 Basophils/100 WBC (Bld) 1.2 % Normal 0.2-2.0 [facility] Comment on above: Performed By: #### 1 [id number], 2417633, 3623591191, 6456175117, 6561702, 43387335 #### [facility] (DEFAULT) [address] [place] [address] 52778 Eos Abs# 0.1 x10 Normal 0.0-0.4 [facility] Comment on above: Performed By: #### 1 [id number], 2806103, 6015974157, 5106170264, 9954614, 58724590 #### [facility] (DEFAULT) [address] [place] [address] 40370 Eosinophils/100 WBC (Bld) 1.1 % Normal 0.9-4.0 [facility] Comment on above: Performed By: #### 1 [id number], 9363866, 1644395856, 1448885574, 8528968, 42069542 #### [facility] (DEFAULT) [address] [place] [address] 35422 Lymph Abs# 1.0 x10 Low 1.3-2.9 [facility] Comment on above: Performed By: #### 1 [id number], 1813852, 4495083404, 4053522649, 2487115, 52571812 #### [facility] (DEFAULT) [address] [place] [address] Lymphocytes/100 WBC (Bld) 15 % Normal 14-48 [facility] Comment on above: Performed By: #### 1 [id number], 9429997, 0827241752, 7992817254, 5413487, 63646257 #### [facility] (DEFAULT) [address] [place] [address] [place] Abs# 0.6 x10 Normal 0.0-0.8 [facility] Comment on above: Performed By: #### 1 [id number], 9219926, 3409167292, 8537920749, 5437915, 42808539 #### [facility] (DEFAULT) [address] [place] [address] Neut Abs# 5.1 x10 Normal 1.5-9.2 [facility] Comment on above: Performed By: #### 1 [id number], 9887403, 7692468318, 6096152648, 7338540, 46173090 #### [facility] (DEFAULT) [address] [place] [address] Neutrophils/100 WBC (Bld) 74 % Normal 44-88 [facility] Comment on above: Performed By: #### 1 [id number], 4564755, 5492289064, 3568406332, 5887734, 48814630 #### [facility] (DEFAULT) [address] [place] [address] CBC w/ Auto Diffon 4 Erythrocyte distribution width (RBC) [Ratio] 15.9 % High 11.5-15.0 [facility] Comment on above: Performed By: #### 1 [id number], 2864243, 2670301520, 9847941231, 5777538, 25268506 #### [facility] (DEFAULT) [address] [place] [address] Hematocrit (Bld) [Volume fraction] 38.4 % Normal 33.7-40.4 [facility] Comment on above: Performed By: #### 1 [id number], 5100372, 9613190188, 8210399531, 7773016, 42653383 #### [facility] (DEFAULT) [address] [place] [address] Hemoglobin (Bld) [Mass/Vol] 12.5 g/dL Normal 11.3-15.9 [facility] Comment on above: Performed By: #### 1 [id number], 7552394, 2673720604, , 2900201, 41689764 #### [facility] (DEFAULT) [address] [place] [address] Man Diff? Auto Invalid Interpretation Code [facility] Comment on above: Performed By: #### 1 [id number], 0406351, 7127434759, , 2349768, 37523184 #### [facility] (DEFAULT) [address] [place] [address] MCH (RBC) [Entitic mass] 33 pg Normal 24-34 [facility] Comment on above: Performed By: #### 1 [id number], 4207876, 8098554109, 2748464681, 8468202, 92442264 #### [facility] (DEFAULT) [address] [place] [address] 96366 MCHC (RBC) [Mass/Vol] 33 g/dL Normal 26-37 [facility] Comment on above: Performed By: #### 1 [id number], 4225578, 0547839284, 4904538996, , 52333392 #### [facility] (DEFAULT) [address] [place] [address] 86567 MCV (RBC) [Entitic vol] 102 fL High 81-100 [facility] Comment on above: Performed By: #### 1 [id number], 1387338, 0674641107, 5117126421, 9159152, 18703142 #### [facility] (DEFAULT) [address] [place] [address] 91271 Platelet 165 x10 Normal 138-427 [facility] Comment on above: Performed By: #### 1 [id number], 2227118, 3462375019, 6155795141, 6784516, 01704825 #### [facility] (DEFAULT) [address] [place] [address] Platelet mean volume (Bld) [Entitic vol] 8.6 fL Normal 6.3-10.2 [facility] Comment on above: Performed By: #### 1 [id number], 6125640, 9114402540, 7705291378, 8183497, 77840877 #### [facility] (DEFAULT) [address] [place] [address] RBC 3.76 x10 Normal 3.70-5.30 [facility] Comment on above: Performed By: #### 1 375263052, 5485936, 6163091465, 3020180473, 6671421, 54229147 #### [facility] (DEFAULT) [address] [place] [address] WBC 6.8 x10 Normal 3.5-10.5 [facility] Comment on above: Performed By: #### 1 130242776, 2695206, 2235145748, 5992609786, 5994326, 42171321 #### [facility] (DEFAULT) [address] [place] [address] Standardon 08-18-2023 eGFR Non AA 28 mL/min/1.73m2 Invalid Interpretation Code [facility] Comment on above: Performed By: #### 1 [id number], 6227362, 7604100439, 1026427770, 7902547, 30513995 #### [facility] (DEFAULT) [address] [place] [address] eGFR AA 34 mL/min/1.73m2 Invalid Interpretation Code [facility] Comment on above: Performed By: #### 1 [id number], 5738362, 0527520453, 9042414942, 1671655, 72568356 #### [facility] (DEFAULT) [address] [place] [address] Albumin [Mass/Vol] 3.7 g/dL Normal 3.5-5.0 [facility] Comment on above: Performed By: #### 1 [id number], 6930927, 1961309579, 4864385386, 8136516, 04061092 #### [facility] (DEFAULT) [address] [place] [address] 33757 Albumin/Globulin [Mass ratio] 1.1 {ratio} Low 1.4-2.6 [facility] Comment on above: Performed By: #### 1 [id number], 4302197, 5983186843, 0502265073, 8143804, 56653379 #### [facility] (DEFAULT) [address] [place] [address] 74503 Alk Phos 66 IU/L Normal 32-91 [facility] Comment on above: Performed By: #### 1 [id number], 6510451, 4445969850, 3052376474, 8593654, 58480422 #### [facility] (DEFAULT) [address] [place] [address] ALT [Catalytic activity/Vol] 14.0 U/L Normal 14.0-54.0 [facility] Comment on above: Performed By: #### 1 [id number], 0929171, 8185872042, 2192752524, 5468192, 60331474 #### [facility] (DEFAULT) [address] [place] [address] 36814 Anion gap [Moles/Vol] 13.1 mmol/L Normal 5.0-19.0 [facility] Comment on above: Performed By: #### 1 [id number], 1497577, 0114970242, 6924729080, 1251086, 82600235 #### [facility] (DEFAULT) [address] [place] [address] 22797 AST [Catalytic activity/Vol] 21 U/L Normal 15-41 [facility] Comment on above: Performed By: #### 1 [id number], 4419781, 6123763027, 2722300497, 2664428, 73222751 #### [facility] (DEFAULT) [address] [place] [address] 77811 Bili Total 0.9 mg/dL Normal 0.3-1.2 [facility] Comment on above: Performed By: #### 1 [id number], 6113196, 6685277356, 2773048688, 6787026, 05553570 #### [facility] (DEFAULT) [address] [place] [address] 48613 Calcium [Mass/Vol] 8.8 mg/dL Low 8.9-10.3 [facility] Comment on above: Performed By: #### 1 [id number], 4475026, 8717778887, 1553297052, 2408658, 76908857 #### [facility] (DEFAULT) [address] [place] [address] 85252 Chloride [Moles/Vol] 103 mmol/L Normal 101-111 [facility] Comment on above: Performed By: #### 1 [id number], 8083270, 2336413001, 9778183856, 0777776, 73559830 #### [facility] (DEFAULT) [address] [place] [address] 99225 CO2 [Moles/Vol] 27 mmol/L Normal 21-32 [facility] Comment on above: Performed By: #### 1 [id number], 1912157, 7003978447, 2549154676, 5685289, 01910620 #### [facility] (DEFAULT) [address] [place] [address] 93814 Creatinine [Mass/Vol] 1.70 mg/dL High 0.60-1.30 [facility] Comment on above: Performed By: #### 1 [id number], 9293931, 0921816482, 7678893682, , 08070404 #### [facility] (DEFAULT) [address] [place] [address] 93266 Globulin (S) [Mass/Vol] 3.2 g/dL Normal 1.5-4.3 [facility] Comment on above: Performed By: #### 1 [id number], 0360958, 2740021030, 1631385725, 1670163, 06211211 #### [facility] (DEFAULT) [address] [place] [address] 61502 Glucose [Mass/Vol] 117.0 mg/dL Normal 74.0-118.0 [facility] Comment on above: Performed By: #### 1 [id number], 3208283, 5738144241, 1170279677, 8182250, 13872316 #### [facility] (DEFAULT) [address] [place] [address] 26252 Osmolality 293 mOsm/L Invalid Interpretation Code [facility] Comment on above: Performed By: #### 1 [id number], 9522992, 4652407370, 9732957264, 3554631, 87327280 #### [facility] (DEFAULT) [address] [place] [address] 35016 Potassium [Moles/Vol] 4.1 mmol/L Normal 3.6-5.1 [facility] Comment on above: Performed By: #### 1 [id number], 8538096, 8108443953, 2400012148, 2393960, 98008739 #### [facility] (DEFAULT) [address] [place] [address] 22217 Protein [Mass/Vol] 6.9 g/dL Normal 6.5-8.1 [facility] Comment on above: Performed By: #### 1 [id number], 1946227, 7927023081, 5327125601, 4112123, 35491368 #### [facility] (DEFAULT) [address] [place] [address] 30580 Sodium [Moles/Vol] 139.0 mmol/L Normal 136.0-144 . 0 [facility] Comment on above: Performed By: #### 1 [id number], 0557549, 9563785480, 5567388636, 9660101, 56467871 #### [facility] (DEFAULT) [address] [place] [address] 92851 Urea nitrogen [Mass/Vol] 53 mg/dL High 8-26 [facility] Comment on above: Performed By: #### 1 [id number], 7415747, 1517556956, 9121730013, 0986637, 44177889 #### [facility] (DEFAULT) [address] [place] [address] 01886 Urea nitrogen/Creatinine [Mass ratio] 31.1 mg/mg High 4.6-16.2 [facility] Comment on above: Performed By: #### 1 [id number], 8300505, 3599925570, 9204572598, 2379860, 36821405 #### [facility] (DEFAULT) [address] [place] [address] Breakpoint Chem Normal [facility] Comment on above: Performed By: #### 1 [id number], [id number], [id number], [id number] #### [facility] (DEFAULT) [address] [place] [address] CT Head or Brain w/o Contras ton [...] Robles MD08/18/23 6:51 pm Technologist: Roger [facility] CT Spine Cervical w/o Eneida alvarez 08-18-2023 CT Spine Cervical w/o Contrast EXAMINATION: [...] Robles MD08/18/23 6:51 pm Technologist: Roger ACE [facility] ED Clinical Summaryon 2023 ED Clinical Summary [facility] - Emergency Department [address] [place] [address] ED Clinical Summary PERSON INFORMATION Name: ERIN WOODS Age: 88 Years Sex: FEMALE : 1935 MRN: Acct#: Visit Reason: Fall; FALL- HEAD INJURY Arrival: 08/18/2023 16:41:53 Discharge: 08/18/2023 19:36:00 LOS: 000 02:55 Check In: 08/18/2023 16:41:53 Checkout:08/18/2023 19:36:00 Address: [address] [place] [address] PCP: LOS CHAUDHARY PROVIDER INFORMATION Provider Role Assigned Unassigned Ashely Arana ED PA 08/18/2023 16:45:43 Kwaku Santamaria MD ED Provider 08/18/2023 16:46:27 Moris Huerta [employer] WORKER Nurse 08/18/2023 16:50:41 VITALS INFORMATION Vital Sign [...] Hematoma Follow-Up: With: Address: When: Provider, None [address] [place] [id number] Within 3 to 5 days Comments: Follow-up [...] verbalizes understanding of instructions given Comment: Normal [facility] ED Patient Summaryon 024 ED Patient Summary [facility] - Emergency Department [address] [place] [id number] PATIENT DISCHARGE INSTRUCTIONS Patient Information Name: ERIN WOODS Age: 88 Years Date of : 1935 Reason For Visit: Fall; FALL- HEAD INJURY Arrival Time: 08/18/2023 16:41:53 Phone: Primary Care Physician: LOS CHAUDHARY Attending Physician: Kwaku Santamaria MD Comment: Visit Diagnosis: Diagnoses This Visit Closed head injury (S09.90XA) Contusion (T14.8XXA) Fall ([id number]) Fall (W19.XXXA) Head injury (S09.90XA) Skin tear of upper extremity (S41.119A) Supratherapeutic INR (R79.1) The Pharmacy at [facility] is open Sunday through Sunday from 9A [...] alcohol and/or drug addiction problems; contact the [facility] 30/10 Crisis Hotline -Text 4HYOP to 833240. If you received any narcotics, sedation, or [...] legal documents With: Address: When: Provider, Layne [address] [place] [address] Within 3 to 5 days Comments: Follow-up [...] and treatment you received today in the [facility] Emergency Department were for an urgent problem and are not intended as complete care. It is important for you to follow up with a doctor, nurse practitioner, or physician?s assistant professor of religion for ongoing care. If your symptoms become [...] so we can reach you if necessary. [facility] Emergency Department has provided you with a complete list of medications post discharge. Please inform your gum rolling machine tender/provider of your visit and for further instruction [...] CLINIC. Visit (more content not included)... Normal [facility] Extra Redon 08-18-2023 Tube Collected Yes Invalid Interpretation Code [facility] Comment on above: Performed By: #### 1 [id number], [id number], [id number], [id number], [id number] #### [facility] (DEFAULT) [address] [place] [id number] PTon 08-18-2023 INR Coag (PPP) [Relative time] 4.03 {INR} High 0.91-1.11 [facility] Comment on above: Performed By: #### 1 [id number], [id number], [id number], [id number], [id number], [id number] #### [facility] (DEFAULT) [address] [place] [address] PT 36.9 second(s) High 9.7-11.8 [facility] Comment on above: Performed By: #### 1 [id number], [id number], [id number], [id number] #### [facility] (DEFAULT) [address] [place] [address] Activated partial thrombopla stin time (aPTT) in platelet poor plasma by coagulation aOrdered By: Arthur Ovalle on 07-31-2023 aPTT Coag (PPP) [Time] 49.0 s 25.1-36.5 [facility] Comment on above: A hematocrit value g reater than 55% may lead to inaccurate results in coagulation testing. Patients having hematocrit values >55% require a special collection tube for coagulation studies. Please contact the laboratory at [phone] for redraw instructions. Alanine aminotransferase [En zymatic activity/volume] in Serum or PlasmaOrdered By: PROVIDER TEMP on 07-31-2023 ALT [Catalytic activity/Vol] 20 U/L Normal 7-52 [facility] Comment on above: Performed By: #### P T, BNP, PTT #### [facility] [address] [place] [address] [place] Albumin [Mass/volume] in Ser um or Plasma by Bromocresol green (BCG) dye binding methoOrdered By: PROVIDER TEMP on 07-31-2023 Albumin BCG dye [Mass/Vol] 3.9 g/dL 3.5-5.7 [facility] Alkaline phosphatase [Enzyma tic activity/volume] in Serum or PlasmaOrdered By: PROVIDER TEMP on 07-31-2023 ALP [Catalytic activity/Vol] 72 U/L Normal 34-104 [facility] Comment on above: Performed By: #### P T, BNP, PTT #### [facility] [address] [place] [address] [place] Aspartate aminotransferase [ Enzymatic activity/volume] in Serum or PlasmaOrdered By: PROVIDER TEMP on 07-31-2023 AST [Catalytic activity/Vol] 21 U/L Normal 13-39 [facility] Comment on above: Performed By: #### P T, BNP, PTT #### [address] Automated basophil %Ordered By: PROVIDER TEMP on 07-31-2023 Basophils/100 WBC (Bld) 1.0 % Normal . [facility] Comment on above: Performed By: #### P T, BNP, PTT #### [address] Automated basophil countOrde red By: PROVIDER TEMP on 07-31-2023 Basophils (Bld) [#/Vol] 0.1 10*3/uL Normal 0.0-0.2 [facility] Comment on above: Result Comment: PERF ORMED BY: [place] [address] PATHOLOGIST RIG SITE ENGINEER GIULIA VALERIO M.D. Performed By: #### P T, BNP, PTT #### [address] Automated blood monocyte cou ntOrdered By: PROVIDER TEMP on 07-31-2023 Monocytes (Bld) [#/Vol] 0.5 10*3/uL Normal 0.0-0.8 [facility] Comment on above: Performed By: #### P T, BNP, PTT #### [address] Automated eosinophil %Ordere d By: PROVIDER TEMP on 07-31-2023 Eosinophils/100 WBC (Bld) 0.7 % Normal . [facility] Comment on above: Performed By: #### P T, BNP, PTT #### [address] Automated eosinophil countOr dered By: PROVIDER TEMP on 07-31-2023 Eosinophils (Bld) [#/Vol] 0.0 10*3/uL Normal 0.0-0.45 [facility] Comment on above: Performed By: #### P T, BNP, PTT #### [facility] [address] [place] [address] Automated monocyte %Ordered By: PROVIDER TEMP on 07-31-2023 Monocytes/100 WBC (Bld) 8.5 % Normal . [facility] Comment on above: Performed By: #### P T, BNP, PTT #### [facility] [address] [place] [address] Automated neutrophil %Ordere d By: PROVIDER TEMP on 07-31-2023 Neutrophils/100 WBC (Bld) 76.1 % Normal . [facility] Comment on above: Performed By: #### P T, BNP, PTT #### [address] BNP ser/plasOrdered By: Jose Ovalle on 07-31-2023 Natriuretic peptide B (Bld) [Mass/Vol] 343.0 pg/mL High 5-100 [facility] Comment on above: Result Comment: PERF ORMED BY: [place] [address] PATHOLOGIST RIG SITE ENGINEER GIULIA VALERIO M.D. Performed By: #### P T, BNP, PTT #### [address] Bilirubin.total [Mass/volume ] in Serum or PlasmaOrdered By: PROVIDER TEMP on 07-31-2023 Bilirubin [Mass/Vol] 0.5 mg/dL Normal 0.3-1.0 [facility] Comment on above: Performed By: #### P T, BNP, PTT #### [facility] [address] [place] [address] COVID CepheidOrdered By: PRO VIDER TEMP on 07-31-2023 SARS-CoV-2 (COVID-19) Ab IA Ql Negative Negative [facility] Comment on above: This is a duplicate Cepheid Xpert Xpress CoV-2/Flu/RSV Plus RNA by RT-PCR result to be used for statistical tracking purpose only. COVID CepheidOrdered By: Americo Ovalle on 07-31-2023 SARS-CoV-2 (COVID-19) RNA CIERA+probe Ql (Unsp spec) [facility] COVID-19 / Flu A/B / RSV PCR on 07-31-2023 SARS-CoV-2 (COVID-19) RNA CIERA+probe Ql (Unsp spec) COVID-19 Cepheid Result Negative for SARS-CoV-2 RNA by RT-PCR Flu A Cepheid Result Negative for Flu A RNA by RT-PCR Flu B Cepheid Result Negative for Flu B RNA by RT-PCR RSV Cepheid Result Negative for RSV RNA by RT-PCR COVID19 Blank Space Reference: Negative COVID19 Blank Space Cepheid Disclaimer The Cepheid Xpert Xpress CoV-2/Flu/RSV [...] or Cepheid Disclaimer revoked sooner. PERFORMED BY: [facility] William RAMOS [facility] PATHOLOGIST RIG SITE ENGINEER GIULIA VALERIO M.D. Normal [facility] Comment on above: Performed By: #### P T, BNP, PTT #### [address] Calcium [Mass/volume] in Ser um or PlasmaOrdered By: PROVIDER TEMP on 07-31-2023 Calcium [Mass/Vol] 8.8 mg/dL Normal 8.6-10.3 [facility] Comment on above: Performed By: #### P T, BNP, PTT #### [address] Carbon dioxide, total [Moles /volume] in Serum or PlasmaOrdered By: PROVIDER TEMP on 07-31-2023 CO2 [Moles/Vol] 27.2 mmol/L Normal 21.0-31.0 [facility] Comment on above: Performed By: #### P T, BNP, PTT #### [address] Cepheid COVID PCR Negativeon 07-31-2023 SARS-CoV-2 (COVID-19) RNA CIERA+probe Ql (Unsp spec) Negative Normal Negative [facility] Comment on above: Result Comment: This is a duplicate Cepheid Xpert Xpress CoV-2/Flu/RSV Plus RNA by RT-PCR result to be used for statistical tracking purpose only. PERFORMED BY: [place] [address] PATHOLOGIST RIG SITE ENGINEER GIULIA VALERIO M.D. Performed By: #### P T, BNP, PTT #### [place] [address] [place] Chloride [Moles/volume] in S payal or PlasmaOrdered By: PROVIDER TEMP on 07-31-2023 Chloride [Moles/Vol] 104 mmol/L Normal 98-107 [facility] Comment on above: Performed By: #### P T, BNP, PTT #### [address] Complete Blood Count Auto Di ffon 07-31-2023 Mean Corpuscular HGB Conc 33.1 g/dL Normal 32.0-35.0 [facility] Comment on above: Performed By: #### P T, BNP, PTT #### [address] Monocytes/100 WBC (Bld) 17.74 % Normal 0.00-20.00 [facility] Comment on above: Performed By: #### P T, BNP, PTT #### [address] NRBC% 0.1 /100{WBC} Normal 0-0.5 [facility] Comment on above: Performed By: #### P T, BNP, PTT #### [address] Comprehensive Metabolic Pane [place] 07-31-2023 Albumin [Mass/Vol] 3.9 g/dL Normal 3.5-5.7 [facility] Comment on above: Performed By: #### P T, BNP, PTT #### [address] Creatinine Clr Calc Pharmacy 23.97 Normal [facility] Comment on above: Result Comment: PERF ORMED BY: [place] [address] PATHOLOGIST RIG SITE ENGINEER GIULIA VALERIO M.D. Performed By: #### P T, BNP, PTT #### [address] GFR/1.73 sq M.predicted MDRD (S/P/Bld) [Vol rate/Area] 32.327 mL/min/{1.73_m2} Normal [facility] Comment on above: Performed By: #### P T, BNP, PTT #### [address] Creatine kinase [Enzymatic a ctivity/volume] in Serum or PlasmaOrdered By: PROVIDER TEMP on 07-31-2023 CK [Catalytic activity/Vol] 32 U/L Normal 30-223 [facility] Comment on above: Performed By: #### P T, BNP, PTT #### [facility] [address] Creatinine [Mass/volume] in Serum or PlasmaOrdered By: PROVIDER TEMP on 07-31-2023 Creatinine [Mass/Vol] 1.53 mg/dL High 0.60-1.20 [facility] Comment on above: Performed By: #### P T, BNP, PTT #### [facility] [address] [place] [id number] [facility] ECG 12 lead ECGon 07-31-2023 ECG 12 lead ECG [facility] [place] [address] [place] [address] Electrocardiograph Report Signed Patient: Erin Canales MR#: [id number] : 1935 Acct:[id number] Age/Sex: 88 / F ADM Date: 07/31/23 Loc: ER Room: Type: [facility] ER Attending Dr: Ordering Provider: Arthur Ovalle [...] Rightward axis Confirmed by Talha Oakes DO ([id number]) on 08/01/2023 12:46:46 AM Referred By: Electronically Signed By:Talha Oakes DO Transcribed By: MUS Signed By Talha Oakes DO [id number] Normal [facility] Erythrocyte distribution wid th [Ratio] by Automated countOrdered By: PROVIDER TERRIP on 07-31-2023 Erythrocyte distribution width (RBC) [Ratio] 16.6 % High 11.9-15.3 [facility] Comment on above: Performed By: #### P T, BNP, PTT #### [facility] [address] [place], [place] [id number] [place] Erythrocytes [#/volume] in B lood by Automated countOrdered By: PROVIDER TEMP on 07-31-2023 RBC (Bld) [#/Vol] 3.54 10*6/uL Low 3.60-5.00 [facility] Comment on above: Performed By: #### P T, BNP, PTT #### [address] Glucose [Mass/volume] in Ser um or PlasmaOrdered By: PROVIDER TEMP on 07-31-2023 Glucose [Mass/Vol] 113 mg/dL High 70-100 [facility] Comment on above: ADA recommended refe rence rangeRandom Glucose Reference Range is dependent on time and content of last meal. Glucose of more than 200 mg/dL in a nonstressed, ambulatory subject supports the diagnosis of Diabetes Mellitus. Result Comment: [place] om Glucose Reference Range is dependent on time and content of last meal. Glucose of more than 200 mg/dL in a nonstressed, ambulatory subject supports the diagnosis of Diabetes Mellitus. ADA recommended reference range Performed By: #### P T, BNP, PTT #### [place] [address] [place] Hematocrit [Volume Fraction] of Blood by Automated countOrdered By: PROVIDER TEMP on 07-31-2023 Hematocrit (Bld) [Volume fraction] 35.9 % Normal 34.0-46.4 [facility] Comment on above: Performed By: #### P T, BNP, PTT #### [place] [address] [place] Hemoglobin [Mass/volume] in BloodOrdered By: PROVIDER TEMP on 07-31-2023 Hemoglobin (Bld) [Mass/Vol] 11.9 g/dL Normal 11.8-15.4 [facility] Comment on above: Performed By: #### P T, BNP, PTT #### [place] [address] [place] INR in Platelet poor plasma by Coagulation assayOrdered By: Arthur Ovalle on 07-31-2023 INR Coag (PPP) [Relative time] 4.6 {INR} Normal [facility] Comment on above: INR Therapeutic Rang e [...] By: #### P T, BNP, PTT #### [facility] [address] [place] [address] Leukocytes [#/volume] correc basim for nucleated erythrocytes in Blood by Automated counOrdered By: PROVIDER TEMP on 07-31-2023 WBC corrected for nucl RBC Auto (Bld) [#/Vol] 6.2 10*3/uL 3.8-11.6 [facility] Leukocytes [#/volume] in Blo od by Automated countOrdered By: PROVIDER TEMP on 07-31-2023 WBC (Bld) [#/Vol] 6.2 10*3/uL Normal 3.8-11.6 [facility] Comment on above: Performed By: #### P T, BNP, PTT #### [facility] [address] [place] [address] [place] Lymphocytes [#/volume] in Bl ood by Automated countOrdered By: PROVIDER TEMP on 07-31-2023 Lymphocytes (Bld) [#/Vol] 0.9 10*3/uL Low 1.00-4.8 [facility] Comment on above: Performed By: #### P T, BNP, PTT #### [facility] [address] [place] [address] [place] Lymphocytes/100 leukocytes i n Blood by Automated countOrdered By: PROVIDER TEMP on 07-31-2023 Lymphocytes/100 WBC (Bld) 13.7 % Normal . [facility] Comment on above: Performed By: #### P T, BNP, PTT #### [facility] [address] [place] [address] MCH [Entitic mass] by Automa basim countOrdered By: PROVIDER TEMP on 07-31-2023 MCH (RBC) [Entitic mass] 33.6 pg Normal 24.7-34.3 [facility] Comment on above: Performed By: #### P T, BNP, PTT #### [facility] [address] [place] [address] MCHC Auto (RBC) [Mass/Vol]Or dered By: PROVIDER TEMP on 07-31-2023 MCHC (RBC) [Mass/Vol] 33.1 g/dL 32.0-35.0 [facility] MCV [Entitic volume] by Auto mated countOrdered By: PROVIDER TEMP on 07-31-2023 MCV (RBC) [Entitic vol] 101.2 fL High 80-100 [facility] Comment on above: Performed By: #### P T, BNP, PTT #### [facility] [address] [place] [address] Monocyte distribution width [Entitic volume] in Blood by AutomatedOrdered By: PROVIDER TEMP on 07-31-2023 Monocyte distribution width Auto (Bld) [Entitic vol] 17.74 % 0.00-20.00 [facility] Neutrophils [#/volume] in Bl ood by Automated countOrdered By: PROVIDER TEMP on 07-31-2023 Neutrophils (Bld) [#/Vol] 4.7 10*3/uL Normal 1.8-7.7 [facility] Comment on above: Performed By: #### P T, BNP, PTT #### [facility] [address] [place] [address] No Panel InformationOrdered By: PROVIDER TEMP on 07-31-2023 Estimated GFR (CKD-EPI) 32.327 mL/Min [facility] Creatinine Clearance (Chem 23.97 [facility] Nucleated erythrocytes [Pres ence] in Blood by Automated countOrdered By: PROVIDER TEMP on 07-31-2023 Nucleated RBC Auto Ql (Bld) 0.1 /100{WBC} 0-0.5 [facility] Partial Thromboplastin Timeo n 07-31-2023 aPTT Coag (Bld) [Time] 49.0 s High 25.1-36.5 [facility] Comment on above: Result Comment: A he matocrit value greater than 55% may lead to inaccurate results in coagulation testing. Patients having hematocrit values >55% require a special collection tube for coagulation studies. Please contact the laboratory at [phone] for redraw instructions. PERFORMED BY: [place] [address] PATHOLOGIST RIG SITE ENGINEER GIULIA VALERIO M.D. Performed By: #### P T, BNP, PTT #### [facility] [address] [place] [address] [place] Platelet mean volume [Entiti c volume] in Blood by Automated countOrdered By: PROVIDER TEMP on 07-31-2023 Platelet mean volume (Bld) [Entitic vol] 8.3 fL Normal 6.3-10.7 [facility] Comment on above: Performed By: #### P T, BNP, PTT #### [facility] [address] [place] [address] [place] Platelets [#/volume] in Bloo d by Automated countOrdered By: PROVIDER TEMP on 07-31-2023 Platelets (Bld) [#/Vol] 172 10*3/uL Normal 150-450 [facility] Comment on above: Performed By: #### P T, BNP, PTT #### [facility] [address] [place] [address] [place] Potassium [Moles/volume] in Serum or PlasmaOrdered By: PROVIDER TEMP on 07-31-2023 Potassium [Moles/Vol] 4.2 mmol/L Normal 3.5-5.1 [facility] Comment on above: Performed By: #### P T, BNP, PTT #### [facility] [address] [place] [address] [place] Protein [Mass/volume] in Ser um or PlasmaOrdered By: PROVIDER TEMP on 07-31-2023 Protein [Mass/Vol] 6.7 g/dL Normal 6.4-8.9 [facility] Comment on above: Performed By: #### P T, BNP, PTT #### [address] Prothrombin time (PT)Ordered By: Arthur Ovalle on 07-31-2023 PT Coag (PPP) [Time] 50.5 s High 9.0-12.9 [facility] Comment on above: A hematocrit value g reater than 55% may lead to inaccurate results in coagulation testing. Patients having hematocrit values >55% require a special collection tube for coagulation studies. Please contact the laboratory at [phone] for redraw instructions. Result Comment: A he matocrit value greater than 55% may lead to inaccurate results in coagulation testing. Patients having hematocrit values >55% require a special collection tube for coagulation studies. Please contact the laboratory at [phone] for redraw instructions. Performed By: #### P T, BNP, PTT #### [address] Serum globulin measurement b y calculation (mass/volume)Ordered By: PROVIDER TEMP on 07-31-2023 Globulin (S) [Mass/Vol] 2.8 g/dL [facility] Comment on above: Performed By: #### P T, BNP, PTT #### [address] Serum or plasma albumin/glob ulin mass ratioOrdered By: PROVIDER TEMP on 07-31-2023 Albumin/Globulin [Mass ratio] 1.4 {ratio} [facility] Comment on above: Performed By: #### P T, BNP, PTT #### [address] Serum or plasma anion gap de terminationOrdered By: PROVIDER TEMP on 07-31-2023 Anion gap [Moles/Vol] 11.0 mmol/L Normal 6.0-15.0 [facility] Comment on above: Performed By: #### P T, BNP, PTT #### [address] Sodium [Moles/volume] in Ser um or PlasmaOrdered By: PROVIDER TEMP on 07-31-2023 Sodium [Moles/Vol] 138 mmol/L Normal 136-145 [facility] Comment on above: Performed By: #### P T, BNP, PTT #### [address] Troponin I High Sensitivityo n 07-31-2023 Troponin I High Sensitivity 16.7 pg/mL High 0.0-15.0 [facility] Comment on above: Result Comment: PERF ORMED BY: [place] [address] PATHOLOGIST RIG SITE ENGINEER GIULIA VALERIO M.D. Performed By: #### P T, BNP, PTT #### [facility] [address] [place] [address] Troponin I.cardiac [Mass/vol ume] in Serum or Plasma by Detection limit <= 0.01 ng/Ordered By: PROVIDER TEMP on 07-31-2023 Troponin I.cardiac DL <= 0.01 ng/mL [Mass/Vol] 16.7 pg/mL 0.0-15.0 [facility] Urea nitrogen [Mass/volume] in Serum or PlasmaOrdered By: PROVIDER TEMP on 07-31-2023 Urea nitrogen [Mass/Vol] 51 mg/dL High 7-25 [facility] Comment on above: Performed By: #### P T, BNP, PTT #### [facility] [address] [place] [address] XR chest 2V*on 07-31-2023 XR chest 2V* [facility] [place] [address] XRay Report Signed Patient: Erin Canales MR#: [id number] : 1935 Acct:[id number] Age/Sex: 88 / F ADM Date: 07/31/23 Loc: ER Room: Type: [facility] ER Attending Dr: Copies to: Arthur Ovalle [...] Christine Aguila M.D.07/31/2023 7:20 PM Dictation Location: [place] [address] Transcribed By: [facility] 07/31/231919 Dictated By: Christine Aguila MD 07/31/231916 Signed By: 07/31/231919 Normal [facility] CNOVon 07-26-2023 CNOV Office Visit (PLASST ) ERIN CANALES ([id number]) 1935 F Date Time Provider Department 07/26/23 [...] of left upper eyelid weight (1.6 g [place] weight placed in the left upper eyelid), [...] Take 1 tablet by mouth once daily. [facility] clopidogrel (PLAVIX) 75 mg tablet Take [...] of left upper eyelid weight (1.6 g [place] weight placed in the left upper eyelid), [...] with more than 50% of the total [id number] time of the visit in counseling / [...] As of Date: 07/26/2023 Noted Allergy Reaction [id number] REDUCTASE INHIBIT*08/25/2022 14 - Other: See Comments [...] - nitroglycer (more content not included)... Normal [facility] CNOVon 05-21-2023 CNOV Office Visit (PLASST ) ERIN CANALES ([id number]) 1935 F Date Time Provider Department 05/21/23 8:40 AM ROSALVA LEMOS During your visit today, we recorded the following information about you: Rosalva Lemos APRN.CNP 05/21/2023 9:27 AM Signed Plastic Surgery Post Op Note CC: post op HPI Date of Surgery: 04/24/2023 Surgery: insertion of left upper eyelid weight (1.6 g [place] weight placed in the left upper eyelid), [...] Take 1 tablet by mouth once daily. [facility] clopidogrel (PLAVIX) 75 mg tablet Take [...] questions or concerns during business hours call [phone] or after hours (after 5 pm or on the weekend) call [phone] and ask for the plastic surgery resident / fellow education director for further instructions. If you have increasing [...] or notice (more content not included)... Normal [facility] Aspartate aminotransferase [ Enzymatic activity/volume] in Serum or PlasmaOrdered By: Akhil Olivarez on 05-15-2023 AST [Catalytic activity/Vol] 18 U/L Normal 13-39 [facility] Comment on above: Performed By: #### P T, BNP, PTT #### [address] Basic Metabolic Panelon GFR/1.73 sq M.predicted MDRD (S/P/Bld) [Vol rate/Area] 47.298 mL/min/{1.73_m2} Normal [facility] Comment on above: Performed By: #### P T, BNP, PTT #### [place] [address] [place] Calcium [Mass/volume] in Ser um or PlasmaOrdered By: Akhil Olivarez on 05-15-2023 Calcium [Mass/Vol] 9.4 mg/dL Normal 8.6-10.3 [facility] Comment on above: Performed By: #### P T, BNP, PTT #### [place] [id number] [facility] Carbon dioxide, total [Moles /volume] in Serum or PlasmaOrdered By: Akhil Olivarez on 05-15-2023 CO2 [Moles/Vol] 25.4 mmol/L Normal 21.0-31.0 [facility] Comment on above: Performed By: #### P T, BNP, PTT #### [facility] [address] Chloride [Moles/volume] in S payal or PlasmaOrdered By: Akhil Olivarez on 05-15-2023 Chloride [Moles/Vol] 104 mmol/L Normal 98-107 [facility] Comment on above: Performed By: #### P T, BNP, PTT #### [facility] [address] Creatinine [Mass/volume] in Serum or PlasmaOrdered By: Akhil Olivarez on 05-15-2023 Creatinine [Mass/Vol] 1.12 mg/dL Normal 0.60-1.20 [facility] Comment on above: Performed By: #### P T, BNP, PTT #### [facility] [address] [place] [address] [place] Glucose [Mass/volume] in Ser um or PlasmaOrdered By: Akhil Olivarez on 05-15-2023 Glucose [Mass/Vol] 128 mg/dL High 70-100 [facility] Comment on above: ADA recommended refe rence rangeRandom Glucose Reference Range is dependent on time and content of last meal. Glucose of more than 200 mg/dL in a nonstressed, ambulatory subject supports the diagnosis of Diabetes Mellitus. Result Comment: [place] om Glucose Reference Range is dependent on time and content of last meal. Glucose of more than 200 mg/dL in a nonstressed, ambulatory subject supports the diagnosis of Diabetes Mellitus. ADA recommended reference range Performed By: #### P T, BNP, PTT #### [facility] [address] No Panel InformationOrdered By: Akhil Olivarez on 05-15-2023 Estimated GFR (CKD-EPI) 47.298 mL/Min [facility] Creatinine Clearance (Chem N/A [facility] Potassium [Moles/volume] in Serum or PlasmaOrdered By: Akhil Olivarez on 05-15-2023 Potassium [Moles/Vol] 4.4 mmol/L Normal 3.5-5.1 [facility] Comment on above: Performed By: #### P T, BNP, PTT #### [address] Serum or plasma anion gap de terminationOrdered By: Akhil Olivarez on 05-15-2023 Anion gap [Moles/Vol] 13.0 mmol/L Normal 6.0-15.0 [facility] Comment on above: Performed By: #### P T, BNP, PTT #### [address] Sodium [Moles/volume] in Ser um or PlasmaOrdered By: Akhil Olivarez on 05-15-2023 Sodium [Moles/Vol] 138 mmol/L Normal 136-145 [facility] Comment on above: Performed By: #### P T, BNP, PTT #### [address] Thyrotropin [Units/volume] i n Serum or PlasmaOrdered By: Akhil Olivarez on 05-15-2023 TSH Qn 3.73 m[IU]/L Normal 0.45-5.33 [facility] Comment on above: Result Comment: PERF ORMED BY: [place] [address] PATHOLOGIST RIG SITE ENGINEER GIULIA VALERIO M.D. Performed By: #### P T, BNP, PTT #### [address] Urea nitrogen [Mass/volume] in Serum or PlasmaOrdered By: Akhil Olivarez on 05-15-2023 Urea nitrogen [Mass/Vol] 43 mg/dL High 7-25 [facility] Comment on above: Performed By: #### P T, BNP, PTT #### [address] XR chest 2V*on 05-15-2023 XR chest 2V* [facility] [place] [address] [place] [address] XRay Report Signed Patient: Erin Canales MR#: [id number] : 1935 Acct:[id number] Age/Sex: 87 / F ADM Date: 05/15/23 Loc: XD Room: Type: [facility] Attending Dr: Akhil Olivarez MD Copies to: [...] John Crouch M.D.05/15/2023 4:20 PM Dictation Location: [place] [address] Transcribed By: [facility] 05/15/23 1620 Dictated By: John Crouch II, MD 05/15/23 1619 Signed By: 05/15/23 1620 Normal [facility] CNOVon 04-30-2023 CNOV Office Visit (PLASST ) ERIN CANALES ([id number]) 1935 F Date Time Provider Department 04/30/23 10:40 AM ROSALVA LEMOS During your visit today, we recorded the following information about you: Rosalva Lemos APRN.CNP 04/30/2023 10:27 AM Signed Plastic Surgery Post Op Note CC: post op HPI Date of Surgery: 04/24/2023 Surgery: insertion of left upper eyelid weight (1.6 g [place] weight placed in the left upper eyelid), [...] 1 tablet by mouth once daily. [facility] clopidogrel (PLAVIX) 75 mg tablet Take 75 [...] questions or concerns during business hours call [phone] or after hours (after 5 pm or on the weekend) call [phone] and ask for the plastic surgery resident / fellow education director for further instructions. If you have increasing [...] greenish drainage (more content not included)... Normal [facility] ANES POSTPROC EVALon 024 ANES POSTPROC EVAL HNO ID: [id number] Author: GWEN BLACK MD Service: Anesthesiology Author Type: Anesthesiologist Type: Anesthesia Postprocedure Evaluation Filed: 04/24/2023 13:28 Note Text: POST ANESTHESIA EVALUATION NOTE : 1935 Procedure Summary Date: 04/24/23 Room / Location: OR / OR Anesthesia Start: 756 Anesthesia Stop: 930 [...] April 24, 2023 TIME: 1:28 PM CSN: [id number] [facility] ANES PRE-OPon 04-24-2023 [facility] PRE-OP HNO ID: [id number] Author: GWEN BLACK MD Service: Anesthesiology Author [...] adequate. Short neck: no. Thick neck: no Microretrognathia/Micronagt hia/Recessed Chin: Yes DENTAL Dental findings: missing tooth/teeth, [...] Taken Time BP 134/53 04/24/2348 Pulse 61 04/24/2348 Resp 18 04/24/23 0648 Temp 37.1 ?C (98.8 ?F) 04/24/2348 SpO2 98 % 04/24/23647 No current facility-administered [...] April 24, 2023 TIME: 7:09 AM CSN: [id number] [facility] BRIEF OP NOTon 04-24-2023 BRIEF OP NOT HNO ID: [id number] Author: PAMELA SPICER DO Service: Plastic Surgery Author Type: Resident Type: Brief Op Note Filed: 04/24/2023 09:20 Note Text: PLASTIC SURGERY - BRIEF OP NOTE Patient Name: Erin Canales Log ID: [id number] Surgery Date: 04/24/2023 Surgeon(s) and Harvest Worker Fruit(s): Surgeon(s) and Role: * Shweta Sol MD [...] Surgery Hand Surgery Resident - PGY-5 Pager: [phone] *After 6PM AND on weekends, please page [phone] (Plastic Surgery Visual Merchandising Assistant)* [facility] HISTORY PHYSICALon HISTORY PHYSICAL HNO ID: [id number] Author: SHWETA SOL MD Service: Plastic Surgery Author Type: Resident Type: H&P Filed: 04/26/2023 09:05 Note Text: Attestation signed by Shweta Sol MD at 04/26/2023 9:05 AM Ready for discharge UPDATED HISTORY AND PHYSICAL EXAMINATION SERVICE DATE: [...] DATE: April 24, 2023 TIME: 7:22 AM [facility] NURSING PROGon 04-24-2023 NURSING PROG HNO ID: [id number] Author: ALAN JAMES, RODOLFO Service: Nursing Author Type: Registered Nurse Type: [...] PROVIDED TO PATIENT: Post op discharge instructions. [facility] NURSING PROG HNO ID: [id number] Author: JAE ESPINOZA RN Service: Nursing Author [...] (RECOMMENDATION): None Electronically Signed By: Jae Espinoza [facility] OPERATIVE NOon 04-24-2023 OPERATIVE NO HNO ID: [id number] Author: SHWETA SOL MD Service: Plastic Surgery Author Type: Physician Type: Operative Report Filed: 04/24/2023 09:53 Note Text: OPERATIVE REPORT NAME: Erin Canales AGE: [age] year old SURGERY/ PROCEDURE DATE: 04/24/2023 INCISION/ PROCEDURE START TIME: 8:27 AM INCISION CLOSE/ PROCEDURE ENDTIME: 9:20 AM SURGEON(S)/WOOD PANEL INSPECTOR(S): Surgeon(s) and Role: * Shweta Sol MD [...] due to her facial paralysis and chooses [place] weight and direct brow lift with evaluation [...] Implant Name Type Inv. Item Serial No. Curb Worker Lot No. LRB No. Used Action Model No. OCULID NOME SLIM Implant [id number] Left 1 Implanted [id number] Operative Findings: The procedure was performed as planned. 1.6 g [place] weight placed in the left upper eyelid Estimated Blood Loss: 3 mL Specimens: None Drains: None Complications: None Participation in Procedure: I/primary surgeon/proceduralist performed the procedure with assistance. SIGNATURE: Shweta Sol MD PATIENT NAME: Erin Canales DATE: April 24, 2023 TIME: 9:46 AM PAGER/CONTACT #: [phone] [facility] 04-05-2023 [facility] Telephone (PANARMIN) VINCENT CANALESMELISSA Iraheta ([id number]) 1935 F Date Time Provider Department 04/05/23 LETICIA LIM During your visit today, we recorded the following information about you: Leticia Lim PA-C 04/05/2023 12:07 PM Signed Good afternoon, I saw this patient for PACC for upcoming surgery scheduled 04/16/23 at [facility]. She has a significant cardiac PMH including pacemaker, CAD, A.fib, pulmonary HTN, CHF, and valvular heart disease. Due to pt's PMH and surgery being scheduled at [facility], I reviewed patient's chart with staff anesthesiologist, Dr. Dumont. Per Dr. Dumont, this patient is not an [facility] candidate and surgery needs to be moved to a hospital setting. Please let me know if you have any questions or concerns. Thank you, Leticia Lim PA-C [facility] [place] Beatris Castañeda LPN 04/05/2023 1:53 PM Signed Thanks for letting us know, Leticia. I am forwarding your message to Dr. Sol's team at [facility] to reschedule under hospital setting. Please call patient on rescheduling surgery in hospital. Beatris Castañeda LPN Allergies As of Date: 04/05/2023 Noted Allergy Reaction YBUMCXS-YFT-KYF REDUCTASE INHIBIT*08/25/2022 14 - Other: See Comments [...] Status:Closed by BRENT MEHTA on 04/06/23 Normal [facility] Mamm Screen w/CAD if perf and 3D [place] 04-04-2023 [place] Mamm Screen w/CAD if perf and 3D Jean Claude Exam Date/Time: 03/30/2023 16:08 EST Reason for Exam: Z12.31 Report IMPRESSION: BIRADS 2 BENIGN FINDINGS, NORMAL INTERVAL FOLLOW-UP Follow-up: 12 MONTH RECALL Density: Scattered tissue. Vascular calcifications: Present. EXAM: [place] Mamm Screen w/CAD if perf and 3D [...] VERY IMPORTANT TO YOUR HEALTH. THE CURRENT [employer] [...] 2-Benign finding Recommendation: Normal interval follow-up Normal [facility] Consent for Treatmenton 03-10 Consent for Treatment [phone] [id number] Normal [facility] CNCOon 03-29-2023 CNCO Letter Text Normal [facility] CNOVon 03-29-2023 CNOV Office Visit (PLASST ) ERIN CANALES ([id number]) 1935 F Date Time Provider Department 03/29/23 1:45 PM SHWETA SOL During your visit today, we recorded the following information about you: Shweta Sol MD 03/29/2023 2:35 PM Signed CC: 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 This developed [...] mouth once daily. Allergies: ALLERGIES Allergen Reactions Cyqurqz-Uit-Zvm Red* Other: See Comments Cannot walk when [...] Past Histories independently gathered by the clinical respiratory support technician and the remaining scribed note accurately describes [...] 2023 2:34 PM Referring Provider: SHWETA SOL [[id number]] Allergies As of Date: 03/29/2023 Noted Allergy Reaction NZCNSYE-VAO-GZN REDUCTASE INHIBIT*08/25/2022 14 - Other: See Comments Comments: Cannot walk when she takes it MOTRIN (IBUPROFEN) 10/29/2012 4 - Hives Date Reviewed: 03/29/2023 Reviewed by: Beatris Castañeda LPN - Fully Assessed Primary Visit Diagnosi (more content not included)... Normal [facility] [place] 03-29-2023 [facility] Telephone (PANARMIN) REIN CANALES ([id number]) 1935 F Date Time Provider Department 03/29/23 CHERRIE GAMINO During your visit today, we recorded the following information about you: Cherrie Gamino LPN 03/29/2023 3:03 PM Signed Cardiac clearance and medication instructions requested from Dr. Olivarez. JOVANNI Macedo Peggy Ann, RN 04/06/2023 9:07 AM Signed Addendum-04/03 AND 04/06. Called [facility] to confirm card optimization letter was received. [...] instructions back to me. Scanned letter into [employer] Cherrie Gamino LPN Allergies As of Date: 03/29/2023 Noted Allergy Reaction AYJKXAU-DEQ-MSO REDUCTASE INHIBIT*08/25/2022 14 - Other: See Comments [...] 1 tablet by mouth once daily. Joint [facility] - clopidogrel (PLAVIX) 75 mg tablet Take [...] Status:Closed by CHERRIE GAMINO on 03/29/23 Normal [facility] HISTORY PHYSICALon HISTORY PHYSICAL HNO ID: [id number] Author: Leticia Lim PA-C Service: ? Author Type: Physician Harvest Worker Fruit Type: HANDP Filed: 04/10/2023 12:22 PM Note [...] 4 in 2009 (stents were patent on [facility] 09/2022), s/p PCI to circumflex 09/2022, on ASA 81 mg 2x per week, Plavix, and isosorbide. Follows with outside cards, Dr. Olivarez, [facility] 02/26/23 Mickey James, JUAN CARLOS. Letter faxed to Dr. Olivarez on 03/29/2023 for cardiac optimization and Plavix clearance. Congestive heart failure (HCC) Assessment: LVEF 55% on [facility] 09/2022, on torsemide. Appears euvolemic [...] large neck Non-male patient STOP-Bang Score: 3 [id number] Score: Age: >=75 Sex: female CHF history: Yes Hypertension history: Yes Stroke/TIA/thromboembolism history: No Vascular disease history: Yes Diabetes history: No UEH0CX9-SNTb Score: 6 ANESTHESIA FINDINGS: Intubation History: No [...] +significant L-sided facial droop. Thick neck: no Microretrognathia/Micronagt hia/Recessed Chin: No DENTAL Dental findings: broken tooth [...] sclerosis, Pa (more content not included)... Normal [facility] CNPColeen 03-21-2023 CNPN Telephone (PLASST) ERIN CANALES ([id number]) 1935 F Date Time Provider Department 03/21/23 SHWETA SOL During your visit today, we recorded the following information about you: Jerilyn Rosa 03/21/2023 11:14 AM Signed PAC calling in asking for patients procedure if you are using local if so she does not need a PAC appt please advise. Ph- [phone] Beatris Castañdea LPN 03/21/2023 12:55 PM Signed I see [...] As of Date: 03/21/2023 Noted Allergy Reaction KTEIJVG-HIR-UUM REDUCTASE INHIBIT*08/25/2022 14 - Other: See Comments [...] 1 tablet by mouth once daily. Joint [facility] - clopidogrel (PLAVIX) 75 mg tablet Take [...] by BEATRIS CASTAÑEDA LPN on 03/21/23 Normal [facility] Aspartate aminotransferase [ Enzymatic activity/volume] in Serum or PlasmaOrdered By: Akhil Olivarez on 12-14-2022 AST [Catalytic activity/Vol] 19 U/L Normal 13-39 [facility] Comment on above: Order Comment: PT IS FASTING Performed By: #### P T, BNP, PTT #### [address] Basic Metabolic Panelon GFR/1.73 sq M.predicted MDRD (S/P/Bld) [Vol rate/Area] 42.268 mL/min/{1.73_m2} Normal [facility] Comment on above: Order Comment: PT IS FASTING Performed By: #### P T, BNP, PTT #### [facility] [address] [place] [address] [place] Calcium [Mass/volume] in Ser um or PlasmaOrdered By: Akhil Olivarez on 12-14-2022 Calcium [Mass/Vol] 9.6 mg/dL Normal 8.6-10.3 [facility] Comment on above: Order Comment: PT IS FASTING Performed By: #### P T, BNP, PTT #### [facility] [address] [place] [address] Carbon dioxide, total [Moles /volume] in Serum or PlasmaOrdered By: Akhil Olivarez on 12-14-2022 CO2 [Moles/Vol] 30.6 mmol/L Normal 21.0-31.0 [facility] Comment on above: Order Comment: PT IS FASTING Performed By: #### P T, BNP, PTT #### [place] [address] [place] Chloride [Moles/volume] in S payal or PlasmaOrdered By: Akhil Olivarez on 12-14-2022 Chloride [Moles/Vol] 104 mmol/L Normal 98-107 [facility] Comment on above: Order Comment: PT IS FASTING Performed By: #### P T, BNP, PTT #### [facility] [address] [id number] [facility] Creatinine [Mass/volume] in Serum or PlasmaOrdered By: Akhil Olivarez on 12-14-2022 Creatinine [Mass/Vol] 1.23 mg/dL High 0.60-1.20 [facility] Comment on above: Order Comment: PT IS FASTING Performed By: #### P T, BNP, PTT #### [facility] [address] [id number] [facility] Glucose [Mass/volume] in Ser um or PlasmaOrdered By: Akhil Olivarez on 12-14-2022 Glucose [Mass/Vol] 86 mg/dL Normal 70-100 [facility] Comment on above: ADA recommended refe rence rangeRandom Glucose Reference Range is dependent on time and content of last meal. Glucose of more than 200 mg/dL in a nonstressed, ambulatory subject supports the diagnosis of Diabetes Mellitus. Order Comment: PT IS FASTING Result Comment: [place] om Glucose Reference Range is dependent on time and content of last meal. Glucose of more than 200 mg/dL in a nonstressed, ambulatory subject supports the diagnosis of Diabetes Mellitus. ADA recommended reference range Performed By: #### P T, BNP, PTT #### [facility] [address] [id number] [facility] No Panel InformationOrdered By: Akhil Olivarez on 12-14-2022 Estimated GFR (CKD-EPI) 42.268 mL/Min [facility] Creatinine Clearance (Chem N/A [facility] No Panel Informationon 12-14 6.72\S\6.72 above high threshold 0.45-5.33 -[facility] ayde 250 DO Work Phone: Comment on above: PERFORMED BY:[facility] [place] [address] [id number] MEDICAL DIRECTORGIULIA VALERIO M.D. 19\S\19 Normal 13-39 [facility] ayde 250 DO Work Phone: 42.268\S\42.268 Normal [facility] Timothy messer 250 DO Work Phone: 10.6\S\10.6 Normal 6.0-15.0 [facility] Timothy messer 250 DO Work Phone: 27\S\27 above high threshold 7-25 [facility] Timothy messer 250 DO Work Phone: 86\S\86 Normal 70-100 [facility] Timothy messer 250 DO Work Phone: Comment on above: Random Glucose Refer ence Range is dependent on time and content of last meal. Glucose of more than 200 mg/dL in a nonstressed, ambulatory subject supports the diagnosis of Diabetes Mellitus. ADA recommended reference range 30.6\S\30.6 Normal 21.0-31.0 [facility] Timothy messer 250 DO Work Phone: 104\S\104 Normal 98-107 [facility] Timothy messer 250 DO Work Phone: 4.2\S\4.2 Normal 3.5-5.1 [facility] Timothy messer 250 DO Work Phone: 141\S\141 Normal 136-145 [facility] Timothy messer 250 DO Work Phone: 1.23\S\1.23 above high threshold 0.60-1.20 [facility] Timothy messer 250 DO Work Phone: [phone] 9.6\S\9.6 Normal 8.6-10.3 [facility] Timothy baltazary 250 DO Work Phone: Potassium [Moles/volume] in Serum or PlasmaOrdered By: Akhil Olivarez on 12-14-2022 Potassium [Moles/Vol] 4.2 mmol/L Normal 3.5-5.1 [facility] Comment on above: Order Comment: PT IS FASTING Performed By: #### P T, BNP, PTT #### [facility] [address] Radiologyon 12-14-2022 XR Chest 2 Views Normal -[facility]-Sandu ayde 250 DO Work Phone: Serum or plasma anion gap de terminationOrdered By: Akhil Olivarez on 12-14-2022 Anion gap [Moles/Vol] 10.6 mmol/L Normal 6.0-15.0 [facility] Comment on above: Order Comment: PT IS FASTING Performed By: #### P T, BNP, PTT #### [facility] [address] [place] [address] Sodium [Moles/volume] in Ser um or PlasmaOrdered By: Akhil Olivarez on 12-14-2022 Sodium [Moles/Vol] 141 mmol/L Normal 136-145 [facility] Comment on above: Order Comment: PT IS FASTING Performed By: #### P T, BNP, PTT #### [facility] [address] [place] [address] Thyrotropin [Units/volume] i n Serum or PlasmaOrdered By: Akhil Olivarez on 12-14-2022 TSH Qn 6.72 m[IU]/L High 0.45-5.33 [facility] Comment on above: Order Comment: PT IS FASTING Result Comment: PERF ORMED BY: [place] [address] PATHOLOGIST RIG SITE ENGINEER GIULIA VALERIO M.D. Performed By: #### P T, BNP, PTT #### [facility] [address] [place] [address] Urea nitrogen [Mass/volume] in Serum or PlasmaOrdered By: Akhil Olivarez on 12-14-2022 Urea nitrogen [Mass/Vol] 27 mg/dL High 7-25 [facility] Comment on above: Order Comment: PT IS FASTING Performed By: #### P T, BNP, PTT #### [facility] [address] [place] [address] XR chest 2V*on 12-14-2022 XR chest 2V* [facility] [place] [address] XRay Report Signed Patient: Erin Canales MR#: [id number] : 1935 Acct:[id number] Age/Sex: 87 / F ADM Date: 12/14/22 Loc: X Room: Type: [facility] Attending Dr: Akhil Olivarez MD Copies to: [...] ABNORMALITY. Impression dictated by: Aristides Estrada Jr., DTonja12/14/2022 11:55 AM Dictation Location: [facility]--12 Transcribed By: [facility] 12/14/22 1155 Dictated By: Aristides Estrada Jr, DO 12/14/22 1154 Signed By: 12/14/22 1155 Normal [facility] CNOVon 12-13-2022 CNOV Office Visit (PLASMN ) ERIN CANALES ([id number]) 1935 F Date Time Provider Department 12/13/22 [...] old female who presents with left sided [place] Palsy with significant facial/eye drooping. This developed [...] Allergies: ALLERGIES Allergen Reactions Motrin [Ibuprofen] Unknown Tvvegzd-Ezt-Ksv Red* Other: See Comments Cannot walk when [...] Past Histories independently gathered by the clinical respiratory support technician and the remaining scribed note accurately describes [...] Reaction MOTRIN (IBUPROFEN) 10/29/2012 16 - Unknown VBZKCHA-JOX-AHW REDUCTASE INHIBIT*08/25/2022 14 - Other: See Comments Comments: Cannot walk when she takes it Date Reviewed: 12/13/2022 Reviewed by: Amanda Chamberlain PCNA - Fully Assessed Reason for Visit: Follow Up [171] Primary Visit Di (more content not included)... Normal [facility] Automated basophil %Ordered By: Danilo Drummond on 11-24-2022 Basophils/100 WBC (Bld) 1.1 % Normal . [facility] Comment on above: Performed By: #### C BC #### [address] Automated basophil countOrde red By: Danilo Drummond on 11-24-2022 Basophils (Bld) [#/Vol] 0.1 10*3/uL Normal 0.0-0.2 [facility] Comment on above: Result Comment: PERF ORMED BY: [place] [address] PATHOLOGIST RIG SITE ENGINEER GIULIA VALERIO M.D. Performed By: #### C BC #### [address] Automated blood monocyte cou ntOrdered By: Danilo Drummond on 11-24-2022 Monocytes (Bld) [#/Vol] 0.5 10*3/uL Normal 0.0-0.8 [facility] Comment on above: Performed By: #### C BC #### [address] Automated eosinophil %Ordere d By: Danilo Drummond on 11-24-2022 Eosinophils/100 WBC (Bld) 1.7 % Normal . [facility] Comment on above: Performed By: #### C BC #### [address] Automated eosinophil countOr dered By: Danilo Drummond on 11-24-2022 Eosinophils (Bld) [#/Vol] 0.1 10*3/uL Normal 0.0-0.45 [facility] Comment on above: Performed By: #### C BC #### [address] Automated monocyte %Ordered By: Danilo Drummond on 11-24-2022 Monocytes/100 WBC (Bld) 8.8 % Normal . [facility] Comment on above: Performed By: #### C BC #### [address] [address] [place] Automated neutrophil %Ordere d By: Danilo Drummond on 11-24-2022 Neutrophils/100 WBC (Bld) 68.1 % Normal . [facility] Comment on above: Performed By: #### C BC #### [address] Complete Blood Count Auto Di ffon 11-24-2022 Mean Corpuscular HGB Conc 33.1 g/dL Normal 32.0-35.0 [facility] Comment on above: Performed By: #### C BC #### [address] NRBC% 0.1 /100{WBC} Normal 0-0.5 [facility] Comment on above: Performed By: #### C BC #### [address] Erythrocyte distribution wid th [Ratio] by Automated countOrdered By: Danilo Drummond on 11-24-2022 Erythrocyte distribution width (RBC) [Ratio] 14.5 % Normal 11.9-15.3 [facility] Comment on above: Performed By: #### C BC #### [address] Erythrocytes [#/volume] in B lood by Automated countOrdered By: Danilo Drummond on 11-24-2022 RBC (Bld) [#/Vol] 3.59 10*6/uL Low 3.60-5.00 [facility] Comment on above: Performed By: #### C BC #### [address] Hematocrit [Volume Fraction] of Blood by Automated countOrdered By: Danilo Drummond on 11-24-2022 Hematocrit (Bld) [Volume fraction] 34.5 % Normal 34.0-46.4 [facility] Comment on above: Performed By: #### C BC #### [address] Hemoglobin [Mass/volume] in BloodOrdered By: Danilo Drummond on 11-24-2022 Hemoglobin (Bld) [Mass/Vol] 11.4 g/dL Low 11.8-15.4 [facility] Comment on above: Performed By: #### C BC #### [facility] [address] [place] [address] INR in Platelet poor plasma by Coagulation assayOrdered By: Jamie Hathaway on 11-24-2022 INR Coag (PPP) [Relative time] 1.2 {INR} Normal [facility] Comment on above: INR Therapeutic Rang e [...] heart valves: 3 - 4.5 PERFORMED BY: [place] [address] PATHOLOGIST RIG SITE ENGINEER GIULIA VALERIO M.D. Performed By: #### P T, BNP, PTT #### [facility] [address] [place] [address] Leukocytes [#/volume] correc basim for nucleated erythrocytes in Blood by Automated counOrdered By: Danilo Drummond on 11-24-2022 WBC corrected for nucl RBC Auto (Bld) [#/Vol] 5.8 10*3/uL 3.8-11.6 [facility] Leukocytes [#/volume] in Blo od by Automated countOrdered By: Danilo Drummond on 11-24-2022 WBC (Bld) [#/Vol] 5.8 10*3/uL Normal 3.8-11.6 [facility] Comment on above: Performed By: #### C BC #### [address] Lymphocytes [#/volume] in Bl ood by Automated countOrdered By: Danilo Drummond on 11-24-2022 Lymphocytes (Bld) [#/Vol] 1.2 10*3/uL Normal 1.00-4.8 [facility] Comment on above: Performed By: #### C BC #### [place] [address] [place] Lymphocytes/100 leukocytes i n Blood by Automated countOrdered By: Danilo Drummond on 11-24-2022 Lymphocytes/100 WBC (Bld) 20.3 % Normal . [facility] Comment on above: Performed By: #### C BC #### [address] MCH [Entitic mass] by Automa basim countOrdered By: Danilo Drummond on 11-24-2022 MCH (RBC) [Entitic mass] 31.9 pg Normal 24.7-34.3 [facility] Comment on above: Performed By: #### C BC #### [address] MCHC Auto (RBC) [Mass/Vol]Or dered By: Danilo Drummond on 11-24-2022 MCHC (RBC) [Mass/Vol] 33.1 g/dL 32.0-35.0 [facility] MCV [Entitic volume] by Auto mated countOrdered By: Danilo Drummond on 11-24-2022 MCV (RBC) [Entitic vol] 96.2 fL Normal 80-100 [facility] Comment on above: Performed By: #### C BC #### [place] [address] [place] Neutrophils [#/volume] in Bl ood by Automated countOrdered By: Danilo Drummond on 11-24-2022 Neutrophils (Bld) [#/Vol] 4.0 10*3/uL Normal 1.8-7.7 [facility] Comment on above: Performed By: #### C BC #### [address] Nucleated erythrocytes [Pres ence] in Blood by Automated countOrdered By: Danilo Drummond on 11-24-2022 Nucleated RBC Auto Ql (Bld) 0.1 /100{WBC} 0-0.5 [facility] Platelet mean volume [Entiti c volume] in Blood by Automated countOrdered By: Danilo Drummond on 11-24-2022 Platelet mean volume (Bld) [Entitic vol] 7.6 fL Normal 6.3-10.7 [facility] Comment on above: Performed By: #### C BC #### [address] Platelets [#/volume] in Bloo d by Automated countOrdered By: Danilo Drummond on 11-24-2022 Platelets (Bld) [#/Vol] 164 10*3/uL Normal 150-450 [facility] Comment on above: Performed By: #### C BC #### [address] Prothrombin Time INROrdered By: Jamie Hathaway on 11-24-2022 PT Coag (PPP) [Time] 14.0 s High 9.0-12.9 [facility] Comment on above: Performed By: #### P T, BNP, PTT #### [address] Basic Metabolic Panelon 11-07 Creatinine Clr Calc Pharmacy 39.79 Normal [facility] Comment on above: Result Comment: PERF ORMED BY: [place] [address] PATHOLOGIST RIG SITE ENGINEER GIULIA VALERIO M.D. Performed By: #### P T, BNP, PTT #### [address] GFR/1.73 sq M.predicted MDRD (S/P/Bld) [Vol rate/Area] 53.544 mL/min/{1.73_m2} Normal [facility] Comment on above: Performed By: #### P T, BNP, PTT #### [facility] [address] [place] [address] [place] Calcium [Mass/volume] in Ser um or PlasmaOrdered By: Danilo Drummond on 11-23-2022 Calcium [Mass/Vol] 8.2 mg/dL Low 8.6-10.3 [facility] Comment on above: Performed By: #### P T, BNP, PTT #### [facility] [address] [place] [address] [place] Carbon dioxide, total [Moles /volume] in Serum or PlasmaOrdered By: Danilo Drummond on 11-23-2022 CO2 [Moles/Vol] 26.3 mmol/L Normal 21.0-31.0 [facility] Comment on above: Performed By: #### P T, BNP, PTT #### [facility] [address] [place] [address] [place] Chloride [Moles/volume] in S payal or PlasmaOrdered By: Danilo Drummond on 11-23-2022 Chloride [Moles/Vol] 103 mmol/L Normal 98-107 [facility] Comment on above: Performed By: #### P T, BNP, PTT #### [facility] [address] [place] [address] [place] Creatinine [Mass/volume] in Serum or PlasmaOrdered By: Danilo Wiltoncely on 11-23-2022 Creatinine [Mass/Vol] 1.01 mg/dL Normal 0.60-1.20 [facility] Comment on above: Performed By: #### P T, BNP, PTT #### [facility] [address] [place] [address] [place] Glucose [Mass/volume] in Ser um or PlasmaOrdered By: Danilo Drummond on 11-23-2022 Glucose [Mass/Vol] 101 mg/dL High 70-100 [facility] Comment on above: ADA recommended refe rence rangeRandom Glucose Reference Range is dependent on time and content of last meal. Glucose of more than 200 mg/dL in a nonstressed, ambulatory subject supports the diagnosis of Diabetes Mellitus. Result Comment: [place] om Glucose Reference Range is dependent on time and content of last meal. Glucose of more than 200 mg/dL in a nonstressed, ambulatory subject supports the diagnosis of Diabetes Mellitus. ADA recommended reference range Performed By: #### P T, BNP, PTT #### [address] No Panel InformationOrdered By: Danilo Drummond on 11-23-2022 Estimated GFR (CKD-EPI) 53.544 mL/Min [facility] Creatinine Clearance (Chem 39.79 [facility] Potassium [Moles/volume] in Serum or PlasmaOrdered By: Danilo Drummond on 11-23-2022 Potassium [Moles/Vol] 4.4 mmol/L Normal 3.5-5.1 [facility] Comment on above: Performed By: #### P T, BNP, PTT #### [address] Prothrombin Time INRon 11-23 INR Coag (PPP) [Relative time] 1.2 {INR} Normal [facility] Comment on above: Result Comment: [...] heart valves: 3 - 4.5 PERFORMED BY: [place] [address] PATHOLOGIST RIG SITE ENGINEER GIULIA VALERIO M.D. Performed By: #### P T, BNP, PTT #### [address] PT Coag (PPP) [Time] 13.8 s High 9.0-12.9 [facility] Comment on above: Performed By: #### P T, BNP, PTT #### [address] Serum or plasma anion gap de terminationOrdered By: Danilo Drummond on 11-23-2022 Anion gap [Moles/Vol] 10.1 mmol/L Normal 6.0-15.0 [facility] Comment on above: Performed By: #### P T, BNP, PTT #### [facility] [address] [place] [address] Sodium [Moles/volume] in Ser um or PlasmaOrdered By: Danilo Drummond on 11-23-2022 Sodium [Moles/Vol] 135 mmol/L Low 136-145 [facility] Comment on above: Performed By: #### P T, BNP, PTT #### [address] Urea nitrogen [Mass/volume] in Serum or PlasmaOrdered By: Danilo Drummond on 11-23-2022 Urea nitrogen [Mass/Vol] 25 mg/dL Normal 7-25 [facility] Comment on above: Performed By: #### P T, BNP, PTT #### [address] XR chest 2V*on 11-23-2022 XR chest 2V* [facility] [place] [address] XRay Report Signed Patient: Erin Canales MR#: [id number] : 1935 Acct:[id number] Age/Sex: 87 / F ADM Date: 11/19/22 Loc: Room: [address] [place] [address] Type: ADM IN Attending Dr: Danilo Drummond [...] Christine Aguila M.D.11/23/2022 7:23 AM Dictation Location: [place] [address] Transcribed By: [facility] 11/23/22722 Dictated By: Christine Aguila MD 11/23/22720 Signed By: 11/23/22722 Normal [facility] Activated partial thrombopla stin time (aPTT) in platelet poor plasma by coagulation aOrdered By: Akhil Olivarez on 11-22-2022 aPTT Coag (PPP) [Time] 32.5 s 25.1-36.5 [facility] Basic Metabolic Panelon 11-07 Anion gap [Moles/Vol] 10.9 mmol/L Normal 6.0-15.0 [facility] Comment on above: Performed By: #### C BC #### [address] Calcium [Mass/Vol] 8.3 mg/dL Low 8.6-10.3 [facility] Comment on above: Performed By: #### C BC #### [address] Chloride [Moles/Vol] 101 mmol/L Normal 98-107 [facility] Comment on above: Performed By: #### C BC #### [facility] [address] CO2 [Moles/Vol] 24.4 mmol/L Normal 21.0-31.0 [facility] Comment on above: Performed By: #### C BC #### [facility] [address] [place] [id number] [facility] Creatinine [Mass/Vol] 1.25 mg/dL High 0.60-1.20 [facility] Comment on above: Performed By: #### C BC #### [facility] [address] [place] [id number] [place] Creatinine Clr Calc Pharmacy 32.56 Normal [facility] Comment on above: Result Comment: PERF ORMED BY: [place] [address] PATHOLOGIST RIG SITE ENGINEER GIULIA VALERIO M.D. Performed By: #### C BC #### [address] GFR/1.73 sq M.predicted MDRD (S/P/Bld) [Vol rate/Area] 41.457 mL/min/{1.73_m2} Normal [facility] Comment on above: Performed By: #### C BC #### [address] Glucose [Mass/Vol] 106 mg/dL High 70-100 [facility] Comment on above: Result Comment: [place] Glucose Reference Range is dependent on time and content of last meal. Glucose of more than 200 mg/dL in a nonstressed, ambulatory subject supports the diagnosis of Diabetes Mellitus. ADA recommended reference range Performed By: #### C BC #### [address] Potassium [Moles/Vol] 4.3 mmol/L Normal 3.5-5.1 [facility] Comment on above: Performed By: #### C BC #### [address] Sodium [Moles/Vol] 132 mmol/L Low 136-145 [facility] Comment on above: Performed By: #### C BC #### [address] Urea nitrogen [Mass/Vol] 27 mg/dL High 7-25 [facility] Comment on above: Performed By: #### C BC #### [address] Complete Blood Count Auto Di ffon 11-22-2022 Basophils (Bld) [#/Vol] 0.0 10*3/uL Normal 0.0-0.2 [facility] Comment on above: Result Comment: PERF ORMED BY: [place] [address] PATHOLOGIST RIG SITE ENGINEER GIULIA VALERIO M.D. Performed By: #### C BC #### [facility] [address] [place] [address] [place] Basophils/100 WBC (Bld) 0.8 % Normal . [facility] Comment on above: Performed By: #### C BC #### [facility] [address] [place] [address] [place] Eosinophils (Bld) [#/Vol] 0.1 10*3/uL Normal 0.0-0.45 [facility] Comment on above: Performed By: #### C BC #### [place] [address] [place] Eosinophils/100 WBC (Bld) 2.0 % Normal . [facility] Comment on above: Performed By: #### C BC #### [address] Erythrocyte distribution width (RBC) [Ratio] 14.7 % Normal 11.9-15.3 [facility] Comment on above: Performed By: #### C BC #### [address] Hematocrit (Bld) [Volume fraction] 40.3 % Normal 34.0-46.4 [facility] Comment on above: Performed By: #### C BC #### [address] Hemoglobin (Bld) [Mass/Vol] 13.3 g/dL Normal 11.8-15.4 [facility] Comment on above: Performed By: #### C BC #### [place] [address] [place] Lymphocytes (Bld) [#/Vol] 1.0 10*3/uL Normal 1.00-4.8 [facility] Comment on above: Performed By: #### C BC #### [place] [address] [place] Lymphocytes/100 WBC (Bld) 17.8 % Normal . [facility] Comment on above: Performed By: #### C BC #### [address] MCH (RBC) [Entitic mass] 31.7 pg Normal 24.7-34.3 [facility] Comment on above: Performed By: #### C BC #### [address] MCV (RBC) [Entitic vol] 96.0 fL Normal 80-100 [facility] Comment on above: Performed By: #### C BC #### [address] Mean Corpuscular HGB Conc 33.0 g/dL Normal 32.0-35.0 [facility] Comment on above: Performed By: #### C BC #### [address] Monocytes (Bld) [#/Vol] 0.5 10*3/uL Normal 0.0-0.8 [facility] Comment on above: Performed By: #### C BC #### [address] Monocytes/100 WBC (Bld) 9.6 % Normal . [facility] Comment on above: Performed By: #### C BC #### [address] Neutrophils (Bld) [#/Vol] 3.9 10*3/uL Normal 1.8-7.7 [facility] Comment on above: Performed By: #### C BC #### [address] Neutrophils/100 WBC (Bld) 69.8 % Normal . [facility] Comment on above: Performed By: #### C BC #### [address] NRBC% 0.1 /100{WBC} Normal 0-0.5 [facility] Comment on above: Performed By: #### C BC #### [address] Platelet mean volume (Bld) [Entitic vol] 7.5 fL Normal 6.3-10.7 [facility] Comment on above: Performed By: #### C BC #### [facility] [address] Platelets (Bld) [#/Vol] 172 10*3/uL Normal 150-450 [facility] Comment on above: Performed By: #### C BC #### [facility] [address] [place] [id number] [facility] RBC (Bld) [#/Vol] 4.20 10*6/uL Normal 3.60-5.00 [facility] Comment on above: Performed By: #### C BC #### [facility] [address] WBC (Bld) [#/Vol] 5.5 10*3/uL Normal 3.8-11.6 [facility] Comment on above: Performed By: #### C BC #### [facility] [address] ECG 12 lead ECGon 11-22-2022 ECG 12 lead ECG [facility] [place] [address] [place] [address] Electrocardiograph Report Signed Patient: Erin Canales MR#: [id number] : 1935 Acct:[id number] Age/Sex: 87 / F ADM Date: 11/19/22 Loc: Room: [address] [place] [address] Type: ADM IN Attending Dr: Danilo Drummond [...] By Stephanie Arteaga MD 1107 Normal [facility] Partial Thromboplastin Timeo n 11-22-2022 aPTT Coag (Bld) [Time] 32.5 s Normal 25.1-36.5 [facility] Comment on above: Result Comment: PERF ORMED BY: [place] [address] PATHOLOGIST RIG SITE ENGINEER GIULIA VALERIO M.D. Performed By: #### C BC #### [address] Prothrombin Time INRon 11-22 INR Coag (PPP) [Relative time] 1.2 {INR} Normal [facility] Comment on above: Result Comment: [...] 3 - 4.5 Performed By: #### C BC #### [address] PT Coag (PPP) [Time] 13.7 s High 9.0-12.9 [facility] Comment on above: Performed By: #### C BC #### [place] [id number] [place] XR chest 1V portableon 11-22 XR chest 1V portable [facility] [place] [address] [place] [address] XRay Report Signed Patient: Erin Canales MR#: [id number] : 1935 Acct:[id number] Age/Sex: 87 / F ADM Date: 11/19/22 Loc: Room: 8Y0531-2 Type: ADM IN Attending Dr: Danilo Drummond [...] Christine Aguila M.D.11/22/2022 12:08 PM Dictation Location: [place] [address] Transcribed By: [facility] 11/22/22 1208 Dictated By: Christine Aguila MD 11/22/22 1203 Signed By: 11/22/22 1208 Normal [facility] Potassiumon 11-21-2022 Potassium [Moles/Vol] 4.3 mmol/L Normal 3.5-5.1 [facility] Comment on above: Order Comment: Comme nt ok to add to prev drawn blood Result Comment: PERF ORMED BY: [place] [address] PATHOLOGIST RIG SITE ENGINEER GIULIA VALERIO M.D. Performed By: #### P T, BNP, PTT #### [address] Prothrombin Time INRon 11-21 INR Coag (PPP) [Relative time] 1.5 {INR} Normal [facility] Comment on above: Result Comment: [...] heart valves: 3 - 4.5 PERFORMED BY: [place] [address] PATHOLOGIST RIG SITE ENGINEER GIULIA VALERIO M.D. Performed By: #### P T, BNP, PTT #### [address] PT Coag (PPP) [Time] 17.7 s Significant change up 9.0-12.9 [facility] Comment on above: Performed By: #### P T, BNP, PTT #### [address] Basic Metabolic Panelon 08- Anion gap [Moles/Vol] 11.9 mmol/L Normal 6.0-15.0 [facility] Comment on above: Performed By: #### L YTES #### [address] Calcium [Mass/Vol] 8.4 mg/dL Low 8.6-10.3 [facility] Comment on above: Performed By: #### L YTES #### [address] Chloride [Moles/Vol] 99 mmol/L Normal 98-107 [facility] Comment on above: Performed By: #### L YTES #### [address] CO2 [Moles/Vol] 23.3 mmol/L Normal 21.0-31.0 [facility] Comment on above: Performed By: #### L YTES #### [address] Creatinine [Mass/Vol] 1.06 mg/dL Normal 0.60-1.20 [facility] Comment on above: Performed By: #### L YTES #### [address] Creatinine Clr Calc Pharmacy 38.40 Normal [facility] Comment on above: Result Comment: PERF ORMED BY: [address] [place] [address] PATHOLOGIST RIG SITE ENGINEER GIULIA VALERIO M.D. Performed By: #### L YTES #### [place] [address] [place] GFR/1.73 sq M.predicted MDRD (S/P/Bld) [Vol rate/Area] 50.528 mL/min/{1.73_m2} Normal [facility] Comment on above: Performed By: #### L YTES #### [address] Glucose [Mass/Vol] 105 mg/dL High 70-100 [facility] Comment on above: Result Comment: [facility] Glucose Reference Range is dependent on time and content of last meal. Glucose of more than 200 mg/dL in a nonstressed, ambulatory subject supports the diagnosis of Diabetes Mellitus. ADA recommended reference range Performed By: #### L YTES #### [address] Potassium [Moles/Vol] 4.2 mmol/L Normal 3.5-5.1 [facility] Comment on above: Performed By: #### L YTES #### [place] [address] [place] Sodium [Moles/Vol] 130 mmol/L Low 136-145 [facility] Comment on above: Performed By: #### L YTES #### [place] [address] [place] Urea nitrogen [Mass/Vol] 19 mg/dL Normal 7-25 [facility] Comment on above: Performed By: #### L YTES #### [address] Complete Blood Count Auto Di ffon 11-20-2022 Basophils (Bld) [#/Vol] 0.0 10*3/uL Normal 0.0-0.2 [facility] Comment on above: Result Comment: PERF ORMED BY: [place] [address] PATHOLOGIST RIG SITE ENGINEER GIULIA VALERIO M.D. Performed By: #### L YTES #### [place] [address] [place] Basophils/100 WBC (Bld) 0.9 % Normal . [facility] Comment on above: Performed By: #### L YTES #### [place] [address] [place] Eosinophils (Bld) [#/Vol] 0.1 10*3/uL Normal 0.0-0.45 [facility] Comment on above: Performed By: #### L YTES #### [place] [address] [place] Eosinophils/100 WBC (Bld) 2.0 % Normal . [facility] Comment on above: Performed By: #### L YTES #### [address] Erythrocyte distribution width (RBC) [Ratio] 14.6 % Normal 11.9-15.3 [facility] Comment on above: Performed By: #### L YTES #### [address] Hematocrit (Bld) [Volume fraction] 39.3 % Normal 34.0-46.4 [facility] Comment on above: Performed By: #### L YTES #### [place] [address] [place] Hemoglobin (Bld) [Mass/Vol] 13.1 g/dL Normal 11.8-15.4 [facility] Comment on above: Performed By: #### L YTES #### [place] [address] [place] Lymphocytes (Bld) [#/Vol] 1.2 10*3/uL Normal 1.00-4.8 [facility] Comment on above: Performed By: #### L YTES #### [place] [address] [place] Lymphocytes/100 WBC (Bld) 21.8 % Normal . [facility] Comment on above: Performed By: #### L YTES #### [address] MCH (RBC) [Entitic mass] 32.0 pg Normal 24.7-34.3 [facility] Comment on above: Performed By: #### L YTES #### [address] MCV (RBC) [Entitic vol] 96.1 fL Normal 80-100 [facility] Comment on above: Performed By: #### L YTES #### [address] Mean Corpuscular HGB Conc 33.4 g/dL Normal 32.0-35.0 [facility] Comment on above: Performed By: #### L YTES #### [address] Monocytes (Bld) [#/Vol] 0.5 10*3/uL Normal 0.0-0.8 [facility] Comment on above: Performed By: #### L YTES #### [place] [address] [place] Monocytes/100 WBC (Bld) 9.8 % Normal . [facility] Comment on above: Performed By: #### L YTES #### [address] Neutrophils (Bld) [#/Vol] 3.5 10*3/uL Normal 1.8-7.7 [facility] Comment on above: Performed By: #### L YTES #### [address] Neutrophils/100 WBC (Bld) 65.5 % Normal . [facility] Comment on above: Performed By: #### L YTES #### [address] NRBC% 0.1 /100{WBC} Normal 0-0.5 [facility] Comment on above: Performed By: #### L YTES #### [address] Platelet mean volume (Bld) [Entitic vol] 7.6 fL Normal 6.3-10.7 [facility] Comment on above: Performed By: #### L YTES #### [address] Platelets (Bld) [#/Vol] 167 10*3/uL Normal 150-450 [facility] Comment on above: Performed By: #### L YTES #### [address] RBC (Bld) [#/Vol] 4.09 10*6/uL Normal 3.60-5.00 [facility] Comment on above: Performed By: #### L YTES #### [address] WBC (Bld) [#/Vol] 5.3 10*3/uL Normal 3.8-11.6 [facility] Comment on above: Performed By: #### L YTES #### [address] Prothrombin Time INRon 11-20 INR Coag (PPP) [Relative time] 3.4 {INR} Normal [facility] Comment on above: Result Comment: [...] heart valves: 3 - 4.5 PERFORMED BY: [place] [address] PATHOLOGIST RIG SITE ENGINEER GIULIA VALERIO M.D. Performed By: #### P T, BNP, PTT #### [address] PT Coag (PPP) [Time] 38.7 s High 9.0-12.9 [facility] Comment on above: Performed By: #### P T, BNP, PTT #### [facility] [address] [place] [address] Thyroxine (T4) free [Mass/vo lume] in Serum or PlasmaOrdered By: Danilo Drummond on 11-20-2022 Free T4 [Mass/Vol] 0.68 ng/dL Normal 0.61-1.12 [facility] Comment on above: Order Comment: Comme nt Add to an already drawn sample Result Comment: PERF ORMED BY: [place] [address] PATHOLOGIST RIG SITE ENGINEER GIULIA VALERIO M.D. Performed By: #### C BC #### [facility] [address] [place] [address] US venous duplex LE BIon US venous duplex LE BI [facility] [place] [address] [place] [address] Ultrasound Report Signed Patient: Erin Canales MR#: [id number] : 1935 Acct:[id number] Age/Sex: 87 / F ADM Date: 11/19/22 Loc: Room: [address] [place] [address] Type: ADM IN Attending Dr: Danilo Drummond [...] Jag Calles M.D.11/20/2022 2:07 PM Dictation Location: [place] [address] Tech: Nina Vivar Transcribed By: ANNA 11/20/221406 Dictated By: Jag Calles MD 11/20/221405 Signed By: 11/20/22 140 Normal [facility] Basic Metabolic Panelon 11-07 Anion gap [Moles/Vol] 9.3 mmol/L Normal 6.0-15.0 [facility] Comment on above: Performed By: #### P T, BNP, PTT #### [facility] [address] [place] [address] [place] Calcium [Mass/Vol] 8.5 mg/dL Low 8.6-10.3 [facility] Comment on above: Performed By: #### P T, BNP, PTT #### [facility] [address] [place] [address] [place] Chloride [Moles/Vol] 97 mmol/L Low 98-107 [facility] Comment on above: Performed By: #### P T, BNP, PTT #### [facility] [address] [place] [address] [place] CO2 [Moles/Vol] 27.7 mmol/L Normal 21.0-31.0 [facility] Comment on above: Performed By: #### P T, BNP, PTT #### [facility] [address] [place] [address] [place] Creatinine [Mass/Vol] 0.94 mg/dL Normal 0.60-1.20 [facility] Comment on above: Performed By: #### P T, BNP, PTT #### [facility] [address] [place] [address] [place] Creatinine Clr Calc Pharmacy 43.30 Normal [facility] Comment on above: Result Comment: PERF ORMED BY: [place] [address] PATHOLOGIST RIG SITE ENGINEER GIULIA VALERIO M.D. Performed By: #### P T, BNP, PTT #### [place] [address] [place] GFR/1.73 sq M.predicted MDRD (S/P/Bld) [Vol rate/Area] 58.364 mL/min/{1.73_m2} Normal [facility] Comment on above: Performed By: #### P T, BNP, PTT #### [facility] [address] Glucose [Mass/Vol] 105 mg/dL High 70-100 [facility] Comment on above: Result Comment: [facility] Glucose Reference Range is dependent on time and content of last meal. Glucose of more than 200 mg/dL in a nonstressed, ambulatory subject supports the diagnosis of Diabetes Mellitus. ADA recommended reference range Performed By: #### P T, BNP, PTT #### [facility] [address] Potassium [Moles/Vol] 4.0 mmol/L Normal 3.5-5.1 [facility] Comment on above: Performed By: #### P T, BNP, PTT #### [address] Sodium [Moles/Vol] 130 mmol/L Low 136-145 [facility] Comment on above: Performed By: #### P T, BNP, PTT #### [facility] [address] Urea nitrogen [Mass/Vol] 18 mg/dL Normal 7-25 [facility] Comment on above: Performed By: #### P T, BNP, PTT #### [address] ECG 12 lead ECGon 11-19-2022 ECG 12 lead ECG [facility] [place] [address] [place] [address] Electrocardiograph Report Signed Patient: Erin Canales MR#: [id number] : 1935 Acct:[id number] Age/Sex: 87 / F ADM Date: 11/17/22 Loc: Room: [address] [place] [address] Type: ADM INOo Attending Dr: Ailyn Meng [...] Anterior infarct present Confirmed by CHAPIS LUNA [facility], BG ([id number]) on 11/19/2022 9:20:27 PM Referred By: Electronically Signed By:BG NATION MD [facility] Transcribed By: MUS Signed By Bg Nation MD, [facility] 11/19/222119 Normal [facility] Prothrombin Time INRon 11-19 INR Coag (PPP) [Relative time] 4.6 {INR} Normal [facility] Comment on above: Result Comment: [...] heart valves: 3 - 4.5 PERFORMED BY: [place] [address] PATHOLOGIST RIG SITE ENGINEER GIULIA VALERIO M.D. Performed By: #### L YTES #### [address] PT Coag (PPP) [Time] 53.0 s High 9.0-12.9 [facility] Comment on above: Performed By: #### L YTES #### [address] Basic Metabolic Panelon 11-07 Anion gap [Moles/Vol] 10.5 mmol/L Normal 6.0-15.0 [facility] Comment on above: Order Comment: FASTI NG N Performed By: #### P T, BNP, PTT #### [place] [address] [place] Calcium [Mass/Vol] 8.9 mg/dL Normal 8.6-10.3 [facility] Comment on above: Order Comment: FASTI NG N Performed By: #### P T, BNP, PTT #### [facility] [address] [place] [address] [place] Chloride [Moles/Vol] 97 mmol/L Low 98-107 [facility] Comment on above: Order Comment: FASTI NG N Performed By: #### P T, BNP, PTT #### [facility] [address] [place] [id number] [facility] CO2 [Moles/Vol] 29.2 mmol/L Normal 21.0-31.0 [facility] Comment on above: Order Comment: FASTI NG N Performed By: #### P T, BNP, PTT #### [address] Creatinine [Mass/Vol] 1.03 mg/dL Normal 0.60-1.20 [facility] Comment on above: Order Comment: FASTI NG N Performed By: #### P T, BNP, PTT #### [facility] [address] [place] [address] [place] Creatinine Clr Calc Pharmacy 38.56 Normal [facility] Comment on above: Order Comment: FASTI NG N Performed By: #### P T, BNP, PTT #### [facility] [address] [place] [id number] [place] GFR/1.73 sq M.predicted MDRD (S/P/Bld) [Vol rate/Area] 52.299 mL/min/{1.73_m2} Normal [facility] Comment on above: Order Comment: FASTI NG N Performed By: #### P T, BNP, PTT #### [facility] [address] [place] [address] [place] Glucose [Mass/Vol] 103 mg/dL High 70-100 [facility] Comment on above: Order Comment: FASTI NG N Result Comment: [place] om Glucose Reference Range is dependent on time and content of last meal. Glucose of more than 200 mg/dL in a nonstressed, ambulatory subject supports the diagnosis of Diabetes Mellitus. ADA recommended reference range Performed By: #### P T, BNP, PTT #### [facility] [address] [place] [address] [place] Potassium [Moles/Vol] 4.7 mmol/L Normal 3.5-5.1 [facility] Comment on above: Order Comment: FASTI NG N Performed By: #### P T, BNP, PTT #### [facility] [address] [place] [address] [place] Sodium [Moles/Vol] 132 mmol/L Low 136-145 [facility] Comment on above: Order Comment: FASTI NG N Performed By: #### P T, BNP, PTT #### [facility] [address] [place] [address] [place] Urea nitrogen [Mass/Vol] 16 mg/dL Normal 7-25 [facility] Comment on above: Order Comment: FASTI NG N Performed By: #### P T, BNP, PTT #### [facility] [address] [place] [address] [place] Cholesterol [Mass/volume] in Serum or PlasmaOrdered By: Jamie Hathaway on 11-18-2022 Cholesterol [Mass/Vol] 154 mg/dL Normal 140-200 [facility] Comment on above: Chol less than 200 m g/dl low riskChol 201-239 mg/dl borderline riskChol 240 mg/dl and greater high risk Order Comment: FASTI NG N Result Comment: Chol less than 200 mg/dl low risk Chol 201-239 mg/dl borderline risk Chol 240 mg/dl and greater high risk Performed By: #### P T, BNP, PTT #### [facility] [address] [place] [address] [place] Cholesterol in LDL Calc [Mas s/Vol]Ordered By: Jamie Hathaway on 11-18-2022 Cholesterol in LDL [Mass/Vol] 79 mg/dL 0-100 [facility] Comment on above: LDL ATP III CLASSIFI CATIONLDL less than 100 mg/dL OptimalLDL 100-129 mg/dL Near or above optimalLDL 130-159 mg/dL Borderline highLDL 160-189 mg/dL HighLDL greater than 189 mg/dL Very high Cholesterol in VLDL Calc [Ma ss/Vol]Ordered By: Jamie Hathaway on 11-18-2022 Cholesterol in VLDL [Mass/Vol] 25 mg/dL [facility] Complete Blood Count Auto Di ffon 11-18-2022 Basophils (Bld) [#/Vol] 0.1 10*3/uL Normal 0.0-0.2 [facility] Comment on above: Result Comment: PERF ORMED BY: [place] [address] PATHOLOGIST RIG SITE ENGINEER GIULIA VALERIO M.D. Performed By: #### C BC #### [address] Basophils/100 WBC (Bld) 1.2 % Normal . [facility] Comment on above: Performed By: #### C BC #### [address] Eosinophils (Bld) [#/Vol] 0.1 10*3/uL Normal 0.0-0.45 [facility] Comment on above: Performed By: #### C BC #### [address] Eosinophils/100 WBC (Bld) 1.7 % Normal . [facility] Comment on above: Performed By: #### C BC #### [address] Erythrocyte distribution width (RBC) [Ratio] 14.7 % Normal 11.9-15.3 [facility] Comment on above: Performed By: #### C BC #### [address] Hematocrit (Bld) [Volume fraction] 40.2 % Normal 34.0-46.4 [facility] Comment on above: Performed By: #### C BC #### [address] Hemoglobin (Bld) [Mass/Vol] 13.4 g/dL Normal 11.8-15.4 [facility] Comment on above: Performed By: #### C BC #### [address] Lymphocytes (Bld) [#/Vol] 1.2 10*3/uL Normal 1.00-4.8 [facility] Comment on above: Performed By: #### C BC #### [address] Lymphocytes/100 WBC (Bld) 23.5 % Normal . [facility] Comment on above: Performed By: #### C BC #### [address] MCH (RBC) [Entitic mass] 32.0 pg Normal 24.7-34.3 [facility] Comment on above: Performed By: #### C BC #### [address] MCV (RBC) [Entitic vol] 96.1 fL Normal 80-100 [facility] Comment on above: Performed By: #### C BC #### [address] Mean Corpuscular HGB Conc 33.3 g/dL Normal 32.0-35.0 [facility] Comment on above: Performed By: #### C BC #### [address] Monocytes (Bld) [#/Vol] 0.5 10*3/uL Normal 0.0-0.8 [facility] Comment on above: Performed By: #### C BC #### [address] Monocytes/100 WBC (Bld) 9.8 % Normal . [facility] Comment on above: Performed By: #### C BC #### [address] Neutrophils (Bld) [#/Vol] 3.2 10*3/uL Normal 1.8-7.7 [facility] Comment on above: Performed By: #### C BC #### [address] Neutrophils/100 WBC (Bld) 63.8 % Normal . [facility] Comment on above: Performed By: #### C BC #### [address] NRBC% 0.2 /100{WBC} Normal 0-0.5 [facility] Comment on above: Performed By: #### C BC #### [address] Platelet mean volume (Bld) [Entitic vol] 7.8 fL Normal 6.3-10.7 [facility] Comment on above: Performed By: #### C BC #### [address] Platelets (Bld) [#/Vol] 198 10*3/uL Normal 150-450 [facility] Comment on above: Performed By: #### C BC #### [address] RBC (Bld) [#/Vol] 4.19 10*6/uL Normal 3.60-5.00 [facility] Comment on above: Performed By: #### C BC #### [address] WBC (Bld) [#/Vol] 5.0 10*3/uL Normal 3.8-11.6 [facility] Comment on above: Performed By: #### C BC #### [address] ECG 12 lead ECGon 11-18-2022 ECG 12 lead ECG [facility] [place] [address] Electrocardiograph Report Signed Patient: Erin Canales MR#: [id number] : 1935 Acct:[id number] Age/Sex: 87 / F ADM Date: 11/17/22 Loc: Room: [address] [place] [address] Type: ADM INOo Attending Dr: Aiyln Meng MD Ordering Provider: Jamie Hathaway MD [...] QT has shortened Confirmed by CHAPIS LUNA [facility], BG ([id number]) on 11/18/2022 2:24:41 PM Referred By: Electronically Signed By:BG NATION MD [facility] Transcribed By: MUS Signed By Bg Nation MD, FACC 11/18/22 1424 Normal [facility] Lipid Panelon 11-18-2022 LDL Cholesterol,Calculated 79 mg/dL Normal 0-100 [facility] Comment on above: Order Comment: FASTI NG N Result Comment: LDL ATP III CLASSIFICATION LDL less than 100 mg/dL Optimal LDL 100-129 mg/dL Near or above optimal LDL 130-159 mg/dL Borderline high LDL 160-189 mg/dL High LDL greater than 189 mg/dL Very high Performed By: #### P T, BNP, PTT #### [facility] [address] Triglyceride w/Reflex 125 mg/dL Normal 0-149 [facility] Comment on above: Order Comment: FASTI NG N Result Comment: TRIG ATP III CLASSIFICATION TRIG less than 150 mg/dL Normal TRIG 150-199 mg/dL Borderline high TRIG 200-500 mg/dL High TRIG greater than 500 mg/dL Very high Standard traceable to the Center for Disease Conrtrol and Prevention (CDC) test method. Performed By: #### P T, BNP, PTT #### [facility] [address] [place] [id number] [facility] VLDL CHOLESTEROL 25 mg/dL Normal [facility] Comment on above: Order Comment: FASTI NG N Performed By: #### P T, BNP, PTT #### [facility] [address] [place] [id number] [facility] Magnesium [Mass/volume] in S payal or PlasmaOrdered By: Ailyn Meng on 11-18-2022 Magnesium [Mass/Vol] 2.1 mg/dL Normal 1.9-2.7 [facility] Comment on above: Order Comment: Blossom nt add Performed By: #### C BC #### [address] Prothrombin Time INRon 11-18 INR Coag (PPP) [Relative time] 4.5 {INR} Normal [facility] Comment on above: Result Comment: [...] heart valves: 3 - 4.5 PERFORMED BY: [place] [address] PATHOLOGIST RIG SITE ENGINEER GIULIA VALERIO M.D. Performed By: #### P T, BNP, PTT #### [address] PT Coag (PPP) [Time] 52.3 s High 9.0-12.9 [facility] Comment on above: Performed By: #### P T, BNP, PTT #### [address] Serum or plasma high density lipoprotein (HDL) cholesterol measurementOrdered By: Jamie Hathaway on 11-18-2022 Cholesterol in HDL [Mass/Vol] 50 mg/dL Normal 23-92 [facility] Comment on above: HDL CHOL ATP-III CLA SSIFICATION Cardiovascular RiskHDL > or equal to 60 mg/dL LOWHDL < 40 mg/dL HIGH Order Comment: JOSEPHINE BEDOLLA N Result Comment: HDL CHOL ATP-III CLASSIFICATION Cardiovascular Risk HDL > or equal to 60 mg/dL LOW HDL < 40 mg/dL HIGH Performed By: #### P T, BNP, PTT #### [address] Serum or plasma total choles terol/high density lipoprotein (HDL) cholesterol mass ratOrdered By: Jamie Hathaway on 11-18-2022 Cholesterol.total/Chol esterol in HDL [Mass ratio] 3.1 {ratio} Normal <5.0 [facility] Comment on above: Order Comment: FASTI NG N Result Comment: PERF ORMED BY: [place] [address] PATHOLOGIST RIG SITE ENGINEER GIULIA VALERIO M.D. Performed By: #### P T, BNP, PTT #### [facility] [address] [place] [address] Thyrotropin [Units/volume] i n Serum or PlasmaOrdered By: Ailyn Meng on 11-18-2022 TSH Qn 7.98 m[IU]/L High 0.45-5.33 [facility] Comment on above: Order Comment: Comme nt add Result Comment: PERF ORMED BY: [place] [address] PATHOLOGIST RIG SITE ENGINEER GIULIA VALERIO M.D. Performed By: #### C BC #### [facility] [address] [place] [address] Triglyceride [Mass/volume] i n Serum or PlasmaOrdered By: Jamie Hathaway on 11-18-2022 Triglyceride [Mass/Vol] 125 mg/dL 0-149 [facility] Comment on above: TRIG ATP III CLASSIF ICATIONTRIG less than 150 mg/dL NormalTRIG 150-199 mg/dL Borderline highTRIG 200-500 mg/dL High TRIG greater than 500 mg/dL Very highStandard traceable to the Center for Disease Conrtrol and Prevention (CDC) test method. Troponin I High Sensitivityo n 11-18-2022 Troponin I High Sensitivity 18.4 pg/mL High 0.0-15.0 [facility] Comment on above: Result Comment: PERF ORMED BY: [place] [address] PATHOLOGIST RIG SITE ENGINEER GIULIA VALERIO M.D. Performed By: #### P T, BNP, PTT #### [facility] [address] [place] [address] Troponin I High Sensitivity 18.8 pg/mL High 0.0-15.0 [facility] Comment on above: Result Comment: PERF ORMED BY: [place] [address] PATHOLOGIST RIG SITE ENGINEER GIULIA VALERIO M.D. Performed By: #### L YTES #### [facility] [address] [place] [address] Troponin I High Sensitivity 24.9 pg/mL High 0.0-15.0 [facility] Comment on above: Result Comment: PERF ORMED BY: [place] [address] PATHOLOGIST RIG SITE ENGINEER GIULIA VALERIO M.D. Performed By: #### C BC #### [address] Troponin I.cardiac [Mass/vol ume] in Serum or Plasma by Detection limit <= 0.01 ng/Ordered By: Jamie Hathaway on 11-18-2022 Troponin I.cardiac DL <= 0.01 ng/mL [Mass/Vol] 18.8 pg/mL 0.0-15.0 [facility] Activated partial thrombopla stin time (aPTT) in platelet poor plasma by coagulation aOrdered By: Philip Thompson on 11-17-2022 aPTT Coag (PPP) [Time] 46.9 s 25.1-36.5 [facility] Automated basophil %Ordered By: Philip Thompson on 11-17-2022 Basophils/100 WBC (Bld) 0.8 % Normal . [facility] Comment on above: Performed By: #### L YTES #### [facility] [address] [place] [address] Automated basophil countOrde red By: Philip Thompson on 11-17-2022 Basophils (Bld) [#/Vol] 0.0 10*3/uL Normal 0.0-0.2 [facility] Comment on above: Result Comment: PERF ORMED BY: [place] [address] PATHOLOGIST RIG SITE ENGINEER GIULIA VALERIO M.D. Performed By: #### L YTES #### [address] Automated blood monocyte cou ntOrdered By: Philip Thompson on 11-17-2022 Monocytes (Bld) [#/Vol] 0.5 10*3/uL Normal 0.0-0.8 [facility] Comment on above: Performed By: #### L YTES #### [address] Automated eosinophil %Ordere d By: Philip Thompson on 11-17-2022 Eosinophils/100 WBC (Bld) 0.8 % Normal . [facility] Comment on above: Performed By: #### L YTES #### [address] Automated eosinophil countOr dered By: Philip Thompson on 11-17-2022 Eosinophils (Bld) [#/Vol] 0.0 10*3/uL Normal 0.0-0.45 [facility] Comment on above: Performed By: #### L YTES #### [address] Automated monocyte %Ordered By: Philip Thompson on 11-17-2022 Monocytes/100 WBC (Bld) 7.8 % Normal . [facility] Comment on above: Performed By: #### L YTES #### [address] Automated neutrophil %Ordere d By: Philip Thompson on 11-17-2022 Neutrophils/100 WBC (Bld) 73.5 % Normal . [facility] Comment on above: Performed By: #### L YTES #### [address] BNP ser/plasOrdered By: Kamaljit Thompson on 11-17-2022 Natriuretic peptide B (Bld) [Mass/Vol] 249.0 pg/mL High 5-100 [facility] Comment on above: Result Comment: PERF ORMED BY: [place] [address] PATHOLOGIST RIG SITE ENGINEER GIULIA VALERIO M.D. Performed By: #### L YTES #### [address] Basic Metabolic Panelon 11-07 Creatinine Clr Calc Pharmacy 34.38 Normal [facility] Comment on above: Result Comment: PERF ORMED BY: [place] [address] PATHOLOGIST RIG SITE ENGINEER GIULIA VALERIO M.D. Performed By: #### L YTES #### [address] GFR/1.73 sq M.predicted MDRD (S/P/Bld) [Vol rate/Area] 47.298 mL/min/{1.73_m2} Normal [facility] Comment on above: Performed By: #### L YTES #### [place] [address] [place] Calcium [Mass/volume] in Ser um or PlasmaOrdered By: Philip Thompson on 11-17-2022 Calcium [Mass/Vol] 9.5 mg/dL Normal 8.6-10.3 [facility] Comment on above: Performed By: #### L YTES #### [address] Carbon dioxide, total [Moles /volume] in Serum or PlasmaOrdered By: Philip Thompson on 11-17-2022 CO2 [Moles/Vol] 27.5 mmol/L Normal 21.0-31.0 [facility] Comment on above: Performed By: #### L YTES #### [place] [address] [place] Chloride [Moles/volume] in S payal or PlasmaOrdered By: Philip Thompson on 11-17-2022 Chloride [Moles/Vol] 94 mmol/L Low 98-107 [facility] Comment on above: Performed By: #### L YTES #### [address] Complete Blood Count Auto Di ffon 11-17-2022 Mean Corpuscular HGB Conc 33.2 g/dL Normal 32.0-35.0 [facility] Comment on above: Performed By: #### L YTES #### [address] Monocytes/100 WBC (Bld) 16.19 % Normal 0.00-20.00 [facility] Comment on above: Performed By: #### L YTES #### [address] NRBC% 0.2 /100{WBC} Normal 0-0.5 [facility] Comment on above: Performed By: #### L YTES #### [address] Creatine kinase [Enzymatic a ctivity/volume] in Serum or PlasmaOrdered By: Philip Thompson on 11-17-2022 CK [Catalytic activity/Vol] 62 U/L Normal 30-223 [facility] Comment on above: Performed By: #### L YTES #### [address] Creatinine [Mass/volume] in Serum or PlasmaOrdered By: Philip Thompson on 11-17-2022 Creatinine [Mass/Vol] 1.12 mg/dL Normal 0.60-1.20 [facility] Comment on above: Performed By: #### L YTES #### [address] ECG 12 lead ECGon 11-17-2022 ECG 12 lead ECG [facility] [place] [address] Electrocardiograph Report Signed Patient: Erin Canales MR#: [id number] : 1935 Acct:[id number] Age/Sex: 87 / F ADM Date: 11/17/22 Loc: ER Room: Type: [facility] ER Attending Dr: Ordering Provider: Philip Thompson [...] By Philip Thompson DO 2040 Normal [facility] Erythrocyte distribution wid th [Ratio] by Automated countOrdered By: Philip Thompson on 11-17-2022 Erythrocyte distribution width (RBC) [Ratio] 15.0 % Normal 11.9-15.3 [facility] Comment on above: Performed By: #### L YTES #### [facility] [address] [place] [address] [place] Erythrocytes [#/volume] in B lood by Automated countOrdered By: Philip Thompson on 11-17-2022 RBC (Bld) [#/Vol] 4.62 10*6/uL Normal 3.60-5.00 [facility] Comment on above: Performed By: #### L YTES #### [facility] [address] [place] [address] [place] Glucose [Mass/volume] in Ser um or PlasmaOrdered By: Philip Thompson on 11-17-2022 Glucose [Mass/Vol] 132 mg/dL High 70-100 [facility] Comment on above: ADA recommended refe rence rangeRandom Glucose Reference Range is dependent on time and content of last meal. Glucose of more than 200 mg/dL in a nonstressed, ambulatory subject supports the diagnosis of Diabetes Mellitus. Result Comment: [place] om Glucose Reference Range is dependent on time and content of last meal. Glucose of more than 200 mg/dL in a nonstressed, ambulatory subject supports the diagnosis of Diabetes Mellitus. ADA recommended reference range Performed By: #### L YTES #### [facility] [address] [place] [address] Hematocrit [Volume Fraction] of Blood by Automated countOrdered By: Philip Thompson on 11-17-2022 Hematocrit (Bld) [Volume fraction] 44.6 % Normal 34.0-46.4 [facility] Comment on above: Performed By: #### L YTES #### [facility] [address] [place] [address] [place] Hemoglobin [Mass/volume] in BloodOrdered By: Philip Thompson on 11-17-2022 Hemoglobin (Bld) [Mass/Vol] 14.8 g/dL Normal 11.8-15.4 [facility] Comment on above: Performed By: #### L YTES #### [address] Leukocytes [#/volume] correc basim for nucleated erythrocytes in Blood by Automated counOrdered By: Philip Thompson on 11-17-2022 WBC corrected for nucl RBC Auto (Bld) [#/Vol] 5.8 10*3/uL 3.8-11.6 [facility] Leukocytes [#/volume] in Blo od by Automated countOrdered By: Philip Thompson on 11-17-2022 WBC (Bld) [#/Vol] 5.8 10*3/uL Normal 3.8-11.6 [facility] Comment on above: Performed By: #### L YTES #### [facility] [address] [place] [address] [place] Lymphocytes [#/volume] in Bl ood by Automated countOrdered By: Philip Thompson on 11-17-2022 Lymphocytes (Bld) [#/Vol] 1.0 10*3/uL Normal 1.00-4.8 [facility] Comment on above: Performed By: #### L YTES #### [place] [address] [place] Lymphocytes/100 leukocytes i n Blood by Automated countOrdered By: Philip Thompson on 11-17-2022 Lymphocytes/100 WBC (Bld) 17.1 % Normal . [facility] Comment on above: Performed By: #### L YTES #### [facility] [address] [place] [address] MCH [Entitic mass] by [employer]oma basim countOrdered By: Philip Thompson on 11-17-2022 MCH (RBC) [Entitic mass] 32.1 pg Normal 24.7-34.3 [facility] Comment on above: Performed By: #### L YTES #### [facility] [address] [place] [address] MCHC Auto (RBC) [Mass/Vol]Or dered By: Philip Thompson on 11-17-2022 MCHC (RBC) [Mass/Vol] 33.2 g/dL 32.0-35.0 [facility] MCV [Entitic volume] by Auto mated countOrdered By: Philip Thompson on 11-17-2022 MCV (RBC) [Entitic vol] 96.6 fL Normal 80-100 [facility] Comment on above: Performed By: #### L YTES #### [facility] [address] [place] [address] Monocyte distribution width [Entitic volume] in Blood by AutomatedOrdered By: Philip Thompson on 11-17-2022 Monocyte distribution width Auto (Bld) [Entitic vol] 16.19 % 0.00-20.00 [facility] Neutrophils [#/volume] in Bl ood by Automated countOrdered By: Philip Thompson on 11-17-2022 Neutrophils (Bld) [#/Vol] 4.3 10*3/uL Normal 1.8-7.7 [facility] Comment on above: Performed By: #### L YTES #### [facility] [address] [place] [address] No Panel InformationOrdered By: Philip Thompson on 11-17-2022 Estimated GFR (CKD-EPI) 47.298 mL/Min [facility] Creatinine Clearance (Chem 34.38 [facility] Nucleated erythrocytes [Pres ence] in Blood by Automated countOrdered By: Philip Thompson on 11-17-2022 Nucleated RBC Auto Ql (Bld) 0.2 /100{WBC} 0-0.5 [facility] Partial Thromboplastin Timeo n 11-17-2022 aPTT Coag (Bld) [Time] 46.9 s High 25.1-36.5 [facility] Comment on above: Result Comment: PERF ORMED BY: [place] [address] PATHOLOGIST RIG SITE ENGINEER GIULIA VALERIO M.D. Performed By: #### P TT, BMP, HS TROP, CK, CBC, BNP, PT ####[id number] Platelet mean volume [Entiti c volume] in Blood by Automated countOrdered By: Philip Thompson on 11-17-2022 Platelet mean volume (Bld) [Entitic vol] 7.7 fL Normal 6.3-10.7 [facility] Comment on above: Performed By: #### L YTES #### [address] Platelet poor plasma interna tional normalized ratio (INR) by coagulation assay (relatOrdered By: Philip Thompson on 11-17-2022 INR Coag (PPP) [Relative time] 3.7 {INR} Normal [facility] Comment on above: INR Therapeutic Rang e [...] valves: 3 - 4.5 Performed By: #### L YTES #### [facility] [address] [place] [address] Platelets [#/volume] in Bloo d by Automated countOrdered By: Philip Thompson on 11-17-2022 Platelets (Bld) [#/Vol] 220 10*3/uL Normal 150-450 [facility] Comment on above: Performed By: #### L YTES #### [address] Potassium [Moles/volume] in Serum or PlasmaOrdered By: Philip Thompson on 11-17-2022 Potassium [Moles/Vol] 4.0 mmol/L Normal 3.5-5.1 [facility] Comment on above: Performed By: #### L YTES #### [address] Prothrombin Time INROrdered By: Philip Thompson on 11-17-2022 PT Coag (PPP) [Time] 42.9 s High 9.0-12.9 [facility] Comment on above: Performed By: #### L YTES #### [address] Serum or plasma anion gap de terminationOrdered By: Philip Thompson on 11-17-2022 Anion gap [Moles/Vol] 12.5 mmol/L Normal 6.0-15.0 [facility] Comment on above: Performed By: #### L YTES #### [address] Sodium [Moles/volume] in Ser um or PlasmaOrdered By: Philip Thompson on 11-17-2022 Sodium [Moles/Vol] 130 mmol/L Low 136-145 [facility] Comment on above: Performed By: #### L YTES #### [place] [address] [place] Troponin I High Sensitivityo n 11-17-2022 Troponin I High Sensitivity 16.9 pg/mL High 0.0-15.0 [facility] Comment on above: Result Comment: PERF ORMED BY: [place] [address] PATHOLOGIST RIG SITE ENGINEER GIULIA VALERIO M.D. Performed By: #### L YTES #### [facility] [address] [place], [place] [id number] [facility] Troponin I.cardiac [Mass/vol ume] in Serum or Plasma by Detection limit <= 0.01 ng/Ordered By: Philip Thompson on 11-17-2022 Troponin I.cardiac DL <= 0.01 ng/mL [Mass/Vol] 16.9 pg/mL 0.0-15.0 [facility] Urea nitrogen [Mass/volume] in Serum or PlasmaOrdered By: Philip Thompson on 11-17-2022 Urea nitrogen [Mass/Vol] 19 mg/dL Normal 7-25 [facility] Comment on above: Performed By: #### L YTES #### [facility] [address] [place], [place] [id number] [facility] XR chest 1V portableon 11-17 XR chest 1V portable [facility] [place] [address] [place] [address] XRay Report Signed Patient: Erin Canales MR#: [id number] : 1935 Acct:[id number] Age/Sex: 87 / F ADM Date: 11/17/22 Loc: ER Room: Type: [facility] ER Attending Dr: Copies to: Philip Thompson [...] Jag Arnold M.D.11/17/2022 8:08 PM Dictation Location: [place] [address] Transcribed By: [facility] 11/17/222007 Dictated By: Jag Arnold DO 11/17/221946 Signed By: 11/17/222007 Normal [facility] Tobacco Screening.on 023 Tobacco use status CPHS b) No -[facility] 600 DO Work Phone: Activated partial thrombopla stin time (aPTT) in platelet poor plasma by coagulation aOrdered By: Pearl Michel on 09-25-2022 aPTT Coag (PPP) [Time] 37.0 s 25.1-36.5 [facility] Coagulation Profileon 2022 aPTT Coag (Bld) [Time] 37.0 s High 25.1-36.5 [facility] Comment on above: Result Comment: PERF ORMED BY: [place] [address] PATHOLOGIST RIG SITE ENGINEER GIULIA VALERIO M.D. Performed By: #### C BC #### [facility] [address] [place] [address] Coagulation ProfileOrdered B y: Pearl Michel on 09-25-2022 PT Coag (PPP) [Time] 16.9 s High 9.0-12.9 [facility] Comment on above: Performed By: #### C BC #### [address] ECG 12 lead ECGon 09-25-2022 ECG 12 lead ECG [facility] [place] [address] Electrocardiograph Report Signed Patient: Erin Canales MR#: [id number] : 1935 Acct:[id number] Age/Sex: 87 / F ADM Date: 09/25/22 Loc: Room: Type: [facility] Attending Dr: Pearl Michel DO Ordering [...] ESTEVEZ DO Transcribed By: MUS Signed By Kikr Estevez DO 09/26 1838 Normal [facility] No Panel Informationon 09-25 37.0\S\37.0 above high threshold 25.1-36.5 [facility] 250 DO Work Phone: Comment on above: PERFORMED BY:[place] [address] [place] [place], [place] [phone] MEDICAL DIRECTORGIULIA VALERIO M.D. 1.5\S\1.5 Normal [facility] 250 DO Work Phone: Comment on above: [...] - 4.5 16.9\S\16.9 above high threshold 9.0-12.9 [facility] 250 DO Work Phone: Platelet poor plasma interna tional normalized ratio (INR) by coagulation assay (relatOrdered By: Pearl Michel on 09-25-2022 INR Coag (PPP) [Relative time] 1.5 {INR} Normal [facility] Comment on above: INR Therapeutic Rang e [...] 3 - 4.5 Performed By: #### C BC #### [facility] [address] Activated partial thrombopla stin time (aPTT) in platelet poor plasma by coagulation aOrdered By: Pearl Michel on 09-22-2022 aPTT Coag (PPP) [Time] 48.7 s 25.1-36.5 [facility] Automated basophil %Ordered By: Pearl Michel on 09-22-2022 Basophils/100 WBC (Bld) 0.9 % Normal . [facility] Comment on above: Performed By: #### L IPID, CBC, LYTES, PP, CREAT, BUN ####[facility] Automated basophil countOrde red By: Pearl Michel on 09-22-2022 Basophils (Bld) [#/Vol] 0.1 10*3/uL Normal 0.0-0.2 [facility] Comment on above: Result Comment: PERF ORMED BY: [place] [address] PATHOLOGIST RIG SITE ENGINEER GIULIA VALERIO M.D. Performed By: #### L IPID, CBC, LYTES, PP, CREAT, BUN ####[place] [address] [address] Automated blood monocyte cou ntOrdered By: Pearl Michel on 09-22-2022 Monocytes (Bld) [#/Vol] 0.5 10*3/uL Normal 0.0-0.8 [facility] Comment on above: Performed By: #### L IPID, CBC, LYTES, PP, CREAT, BUN ####[address] Automated eosinophil %Ordere d By: Pearl Michel on 09-22-2022 Eosinophils/100 WBC (Bld) 1.8 % Normal . [facility] Comment on above: Performed By: #### L IPID, CBC, LYTES, PP, CREAT, BUN ####[address] Automated eosinophil countOr dered By: Pearl Michel on 09-22-2022 Eosinophils (Bld) [#/Vol] 0.1 10*3/uL Normal 0.0-0.45 [facility] Comment on above: Performed By: #### L IPID, CBC, LYTES, PP, CREAT, BUN ####[address] Automated monocyte %Ordered By: Pearl Michel on 09-22-2022 Monocytes/100 WBC (Bld) 8.4 % Normal . [facility] Comment on above: Performed By: #### L IPID, CBC, LYTES, PP, CREAT, BUN ####[address] Automated neutrophil %Ordere d By: Pearl Michel on 09-22-2022 Neutrophils/100 WBC (Bld) 67.2 % Normal . [facility] Comment on above: Performed By: #### L IPID, CBC, LYTES, PP, CREAT, BUN ####[address] Carbon dioxide, total [Moles /volume] in Serum or PlasmaOrdered By: Pearl Michel on 09-22-2022 CO2 [Moles/Vol] 26.2 mmol/L Normal 21.0-31.0 [facility] Comment on above: Performed By: #### L IPID, CBC, LYTES, PP, CREAT, BUN ####[address] [place] [address] [place] Chloride [Moles/volume] in S payal or PlasmaOrdered By: Pearl Michel on 09-22-2022 Chloride [Moles/Vol] 109 mmol/L High 98-107 [facility] Comment on above: Performed By: #### L IPID, CBC, LYTES, PP, CREAT, BUN ####[place] [address] [place] [address] [facility] Cholesterol [Mass/volume] in Serum or PlasmaOrdered By: Pearl Michel on 09-22-2022 Cholesterol [Mass/Vol] 163 mg/dL Normal 140-200 [facility] Comment on above: Chol less than 200 m g/dl low riskChol 201-239 mg/dl borderline riskChol 240 mg/dl and greater high risk Result Comment: Chol less than 200 mg/dl low risk Chol 201-239 mg/dl borderline risk Chol 240 mg/dl and greater high risk Performed By: #### L IPID, CBC, LYTES, PP, CREAT, BUN ####[place] [address] [place] [address] [facility] Cholesterol in LDL Calc [Mas s/Vol]Ordered By: Pearl Michel on 09-22-2022 Cholesterol in LDL [Mass/Vol] 90 mg/dL 0-100 [facility] Comment on above: LDL ATP III CLASSIFI CATIONLDL less than 100 mg/dL OptimalLDL 100-129 mg/dL Near or above optimalLDL 130-159 mg/dL Borderline highLDL 160-189 mg/dL HighLDL greater than 189 mg/dL Very high Cholesterol in VLDL Calc [Ma ss/Vol]Ordered By: Pearl Michel on 09-22-2022 Cholesterol in VLDL [Mass/Vol] 27 mg/dL [facility] Coagulation Profileon 2022 aPTT Coag (Bld) [Time] 48.7 s High 25.1-36.5 [facility] Comment on above: Result Comment: PERF ORMED BY: [facility] [address] [address] PATHOLOGIST RIG SITE ENGINEER GIULIA VALERIO M.D. Performed By: #### L IPID, CBC, LYTES, PP, CREAT, BUN ####[address] Coagulation ProfileOrdered B y: Pearl Michel on 09-22-2022 PT Coag (PPP) [Time] 41.6 s High 9.0-12.9 [facility] Comment on above: Performed By: #### L IPID, CBC, LYTES, PP, CREAT, BUN ####[address] Complete Blood Count Auto Di ffon 09-22-2022 Mean Corpuscular HGB Conc 32.9 g/dL Normal 32.0-35.0 [facility] Comment on above: Performed By: #### L IPID, CBC, LYTES, PP, CREAT, BUN ####[address] NRBC% 0.1 /100{WBC} Normal 0-0.5 [facility] Comment on above: Performed By: #### L IPID, CBC, LYTES, PP, CREAT, BUN ####[place] [id number] [facility] Creatinineon 09-22-2022 GFR/1.73 sq M.predicted MDRD (S/P/Bld) [Vol rate/Area] 45.347 mL/min/{1.73_m2} Normal [facility] Comment on above: Performed By: #### L IPID, CBC, LYTES, PP, CREAT, BUN ####[address] Creatinine [Mass/volume] in Serum or PlasmaOrdered By: Pearl Michel on 09-22-2022 Creatinine [Mass/Vol] 1.16 mg/dL Normal 0.60-1.20 [facility] Comment on above: Performed By: #### L IPID, CBC, LYTES, PP, CREAT, BUN ####[place] [id number] [facility] ECG 12 lead ECGon 09-22-2022 ECG 12 lead ECG [facility] [place] [address] [place] [address] Electrocardiograph Report Signed Patient: Erin Canales MR#: [id number] : 1935 Acct:[id number] Age/Sex: 87 / F ADM Date: 09/22/22 Loc: [facility]: Pearl Michel DO Ordering Provider: Pearl Michel DO Date of Service: 09/22/22 ECG/ECG 12 lead ECG: [facility] Copies to: Test Reason : [...] QT has lengthened Confirmed by SHER LUNA [facility] ([id number] on 09/22/2022 11:19:52 PM Referred By: ANAND Electronically Signed By:PHILIP OLIVAREZ MD [facility] Transcribed By: NAE Signed By Akhil Olivarez MD 09/22/22 9056 Normal [facility] Erythrocyte distribution wid th [Ratio] by Automated countOrdered By: Pearl Michel on 09-22-2022 Erythrocyte distribution width (RBC) [Ratio] 16.1 % High 11.9-15.3 [facility] Comment on above: Performed By: #### L IPID, CBC, LYTES, PP, CREAT, BUN ####[id number] [place] [id number] [facility] Erythrocytes [#/volume] in B lood by Automated countOrdered By: Pearl Michel on 09-22-2022 RBC (Bld) [#/Vol] 4.09 10*6/uL Normal 3.60-5.00 [facility] Comment on above: Performed By: #### L IPID, CBC, LYTES, PP, CREAT, BUN ####[place] [address] [address] Hematocrit [Volume Fraction] of Blood by Automated countOrdered By: Pearl Michel on 09-22-2022 Hematocrit (Bld) [Volume fraction] 39.0 % Normal 34.0-46.4 [facility] Comment on above: Performed By: #### L IPID, CBC, LYTES, PP, CREAT, BUN ####[place] [address] [address] Hemoglobin [Mass/volume] in BloodOrdered By: Pearl Michel on 09-22-2022 Hemoglobin (Bld) [Mass/Vol] 12.8 g/dL Normal 11.8-15.4 [facility] Comment on above: Performed By: #### L IPID, CBC, LYTES, PP, CREAT, BUN ####[address] Laboratory - Chemistry and C hemistry - challengeon 09-22-2022 Cholesterol [Mass/Vol] 163\S\163 Normal 140-200 [facility] 250 DO Work Phone: Comment on above: Chol less than 200 m g/dl low risk Chol 201-239 mg/dl borderline risk Chol 240 mg/dl and greater high risk Cholesterol in LDL [Mass/Vol] 90\S\90 Normal 0-100 [facility] 250 DO Work Phone: Comment on [...] RBC Auto (Bld) [#/Vol] 6.2 10*3/uL 3.8-11.6 [facility] Leukocytes [#/volume] in Blo od by Automated countOrdered By: Pearl Michel on 09-22-2022 WBC (Bld) [#/Vol] 6.2 10*3/uL Normal 3.8-11.6 [facility] Comment on above: Performed By: #### L IPID, CBC, LYTES, PP, CREAT, BUN ####[place] [address] [place] [id number] [facility] Lipid Panelon 09-22-2022 LDL Cholesterol,Calculated 90 mg/dL Normal 0-100 [facility] Comment on above: Result Comment: LDL ATP III CLASSIFICATION LDL less than 100 mg/dL Optimal LDL 100-129 mg/dL Near or above optimal LDL 130-159 mg/dL Borderline high LDL 160-189 mg/dL High LDL greater than 189 mg/dL Very high Performed By: #### L IPID, CBC, LYTES, PP, CREAT, BUN ####[address] Triglyceride w/Reflex 137 mg/dL Normal 0-149 [facility] Comment on above: Result Comment: TRIG ATP III CLASSIFICATION TRIG less than 150 mg/dL Normal TRIG 150-199 mg/dL Borderline high TRIG 200-500 mg/dL High TRIG greater than 500 mg/dL Very high Standard traceable to the Center for Disease Conrtrol and Prevention (CDC) test method. Performed By: #### L IPID, CBC, LYTES, PP, CREAT, BUN ####[address] VLDL CHOLESTEROL 27 mg/dL Normal [facility] Comment on above: Performed By: #### L IPID, CBC, LYTES, PP, CREAT, BUN ####[place] [id number] [facility] Lymphocytes [#/volume] in Bl ood by Automated countOrdered By: Pearl Michel on 09-22-2022 Lymphocytes (Bld) [#/Vol] 1.3 10*3/uL Normal 1.00-4.8 [facility] Comment on above: Performed By: #### L IPID, CBC, LYTES, PP, CREAT, BUN ####[address] [address] [place] Lymphocytes/100 leukocytes i n Blood by Automated countOrdered By: Pearl Michel on 09-22-2022 Lymphocytes/100 WBC (Bld) 21.7 % Normal . [facility] Comment on above: Performed By: #### L IPID, CBC, LYTES, PP, CREAT, BUN ####[place] [address] [address] MCH [Entitic mass] by Automa basim countOrdered By: Pearl Michel on 09-22-2022 MCH (RBC) [Entitic mass] 31.4 pg Normal 24.7-34.3 [facility] Comment on above: Performed By: #### L IPID, CBC, LYTES, PP, CREAT, BUN ####[address] MCHC Auto (RBC) [Mass/Vol]Or dered By: Pearl Michel on 09-22-2022 MCHC (RBC) [Mass/Vol] 32.9 g/dL 32.0-35.0 [facility] MCV [Entitic volume] by Auto mated countOrdered By: Pearl Michel on 09-22-2022 MCV (RBC) [Entitic vol] 95.5 fL Normal 80-100 [facility] Comment on above: Performed By: #### L IPID, CBC, LYTES, PP, CREAT, BUN ####[address] Neutrophils [#/volume] in Bl ood by Automated countOrdered By: Pearl Michel on 09-22-2022 Neutrophils (Bld) [#/Vol] 4.2 10*3/uL Normal 1.8-7.7 [facility] Comment on above: Performed By: #### L IPID, CBC, LYTES, PP, CREAT, BUN ####[address] No Panel InformationOrdered By: Pearl Michel on 09-22-2022 Estimated GFR (CKD-EPI) 45.347 mL/Min [facility] Creatinine Clearance (Chem N/A [facility] No Panel Informationon 09-22 0.1\S\0.1 Normal 0-0.5 -[facility] 250 DO Work Phone: Comment on above: PERFORMED BY:[facility] [place] [phone] MEDICAL DIRECTORGIULIA VALERIO M.D. 0.5\S\0.5 Normal 0.0-0.8 -[facility] 250 DO Work Phone: [phone] 1.3\S\1.3 Normal 1.00-4.8 -[facility] 250 DO Work Phone: [phone] 4.2\S\4.2 Normal 1.8-7.7 -[facility] 250 DO Work Phone: [phone] 0.9\S\0.9 Normal . [facility] 250 DO Work Phone: [phone] 1.8\S\1.8 Normal . [facility] 250 DO Work Phone: [phone] 8.4\S\8.4 Normal . [facility] 250 DO Work Phone: [phone] 21.7\S\21.7 Normal . [facility] 250 DO Work Phone: [phone] 67.2\S\67.2 Normal . [facility] 250 DO Work Phone: [phone] 8.6\S\8.6 Normal 6.3-10.7 [facility] 250 DO Work Phone: [phone] 180\S\180 Normal 150-450 [facility] 250 DO Work Phone: [phone] 16.1\S\16.1 above high threshold 11.9-15.3 -[facility] 250 DO Work Phone: [phone] 32.9\S\32.9 Normal 32.0-35.0 [facility] 250 DO Work Phone: [phone] 31.4\S\31.4 Normal 24.7-34.3 [facility] 250 DO Work Phone: [phone] 95.5\S\95.5 Normal 80-100 [facility] 250 DO Work Phone: [phone] 39.0\S\39.0 Normal 34.0-46.4 [facility] 250 DO Work Phone: [phone] 12.8\S\12.8 Normal 11.8-15.4 [facility] 250 DO Work Phone: 4.09\S\4.09 Normal 3.60-5.00 [facility]er 250 DO Work Phone: 6.2\S\6.2 Normal 3.8-11.6 [facility]er 250 DO Work Phone: 48.7\S\48.7 above high threshold 25.1-36.5 [facility] Heart[facility]alee [facility]er 250 DO Work Phone: Comment on above: PERFORMED BY:[place] [address] [address] [place], [place] [phone] MEDICAL DIRECTORGIULIA VALERIO M.D. 3.6\S\3.6 Normal [facility]aliel baltazary 250 DO Work Phone: [...] - 4.5 41.6\S\41.6 above high threshold 9.0-12.9 [facility] 250 DO Work Phone: 11.4\S\11.4 Normal 6.0-15.0 [facility] 250 DO Work Phone: 26.2\S\26.2 Normal 21.0-31.0 [facility] 250 DO Work Phone: 109\S\109 above high threshold 98-107 [facility]er 250 DO Work Phone: 4.6\S\4.6 Normal 3.5-5.1 [facility] 250 DO Work Phone: 142\S\142 Normal 136-145 [facility]er 250 DO Work Phone: 44\S\44 above high threshold 7-25 [facility]er 250 DO Work Phone: 45.347\S\45.347 Normal [facility] HeartKalee messer 250 DO Work Phone: 1.16\S\1.16 Normal 0.60-1.20 [facility] Heart[facility]er 250 DO Work Phone: 3.5\S\3.5 Normal <5.0 [facility] Heart[facility]e messer 250 DO Work Phone: Comment on above: PERFORMED BY:[place] [address] [place] [place], [place] [phone] MEDICAL DIRECTORGIULIA VALERIO M.D. 27\S\27 Normal [facility]er 250 DO Work Phone: 137\S\137 Normal 0-149 [facility]er 250 DO Work Phone: Comment on above: TRIG ATP III CLASSIF ICATION TRIG less than 150 mg/dL Normal TRIG 150-199 mg/dL Borderline high TRIG 200-500 mg/dL High TRIG greater than 500 mg/dL Very high Standard traceable to the Center for Disease Conrtrol and Prevention (CDC) test method. 46\S\46 Normal 23-92 -[facility] 250 DO Work Phone: Comment on above: HDL CHOL ATP-III CLA SSIFICATION Cardiovascular Risk HDL > or equal to 60 mg/dL LOW HDL < 40 mg/dL HIGH Nucleated erythrocytes [Pres ence] in Blood by Automated countOrdered By: Pearl Michel on 09-22-2022 Nucleated RBC Auto Ql (Bld) 0.1 /100{WBC} 0-0.5 [facility] Platelet mean volume [Entiti c volume] in Blood by Automated countOrdered By: Pearl Michel on 09-22-2022 Platelet mean volume (Bld) [Entitic vol] 8.6 fL Normal 6.3-10.7 [facility] Comment on above: Performed By: #### L IPID, CBC, LYTES, PP, CREAT, BUN ####[facility] [address] [place] [id number] [facility] Platelet poor plasma interna tional normalized ratio (INR) by coagulation assay (relatOrdered By: Pearl Michel on 09-22-2022 INR Coag (PPP) [Relative time] 3.6 {INR} Normal [facility] Comment on above: INR Therapeutic Rang e [...] valves: 3 - 4.5 Performed By: #### L IPID, CBC, LYTES, PP, CREAT, BUN ####[place] [address] [address] Platelets [#/volume] in Bloo d by Automated countOrdered By: Pearl Michel on 09-22-2022 Platelets (Bld) [#/Vol] 180 10*3/uL Normal 150-450 [facility] Comment on above: Performed By: #### L IPID, CBC, LYTES, PP, CREAT, BUN ####[address] Potassium [Moles/volume] in Serum or PlasmaOrdered By: Pearl Michel on 09-22-2022 Potassium [Moles/Vol] 4.6 mmol/L Normal 3.5-5.1 [facility] Comment on above: Performed By: #### L IPID, CBC, LYTES, PP, CREAT, BUN ####[address] Serum or plasma anion gap de terminationOrdered By: Pearl Michel on 09-22-2022 Anion gap [Moles/Vol] 11.4 mmol/L Normal 6.0-15.0 [facility] Comment on above: Performed By: #### L IPID, CBC, LYTES, PP, CREAT, BUN ####[address] Serum or plasma high density lipoprotein (HDL) cholesterol measurementOrdered By: Pearl Michel on 09-22-2022 Cholesterol in HDL [Mass/Vol] 46 mg/dL Normal 23-92 [facility] Comment on above: HDL CHOL ATP-III CLA SSIFICATION Cardiovascular RiskHDL > or equal to 60 mg/dL LOWHDL < 40 mg/dL HIGH Result Comment: HDL CHOL ATP-III CLASSIFICATION Cardiovascular Risk HDL > or equal to 60 mg/dL LOW HDL < 40 mg/dL HIGH Performed By: #### L IPID, CBC, LYTES, PP, CREAT, BUN ####[address] Serum or plasma total choles terol/high density lipoprotein (HDL) cholesterol mass ratOrdered By: Pearl Michel on 09-22-2022 Cholesterol.total/Chol esterol in HDL [Mass ratio] 3.5 {ratio} Normal <5.0 [facility] Comment on above: Result Comment: PERF ORMED BY: [facility] [address] [place] [id number] PATHOLOGIST RIG SITE ENGINEER GIULIA VALERIO M.D. Performed By: #### L IPID, CBC, LYTES, PP, CREAT, BUN ####[place] [address] [address] Sodium [Moles/volume] in Ser um or PlasmaOrdered By: Pearl Michel on 09-22-2022 Sodium [Moles/Vol] 142 mmol/L Normal 136-145 [facility] Comment on above: Performed By: #### L IPID, CBC, LYTES, PP, CREAT, BUN ####[place] [address] [address] Triglyceride [Mass/volume] i n Serum or PlasmaOrdered By: Pearl Michel on 09-22-2022 Triglyceride [Mass/Vol] 137 mg/dL 0-149 [facility] Comment on above: TRIG ATP III CLASSIF ICATIONTRIG less than 150 mg/dL NormalTRIG 150-199 mg/dL Borderline highTRIG 200-500 mg/dL High TRIG greater than 500 mg/dL Very highStandard traceable to the Center for Disease Conrtrol and Prevention (CDC) test method. Urea nitrogen [Mass/volume] in Serum or PlasmaOrdered By: Pearl Michel on 09-22-2022 Urea nitrogen [Mass/Vol] 44 mg/dL High 7-25 [facility] Comment on above: Performed By: #### L IPID, CBC, LYTES, PP, CREAT, BUN ####[place] [address] [place] [id number] [facility] Tobacco Screening.on 023 Fall risk assessment b) One or more fall s in the last year [facility] 250 DO Work Phone: Tobacco use status CPHS b) No [facility] 250 DO Work Phone: [facility] CARDIAC STRESS/REST INJE CTIONon 09-14-2022 [facility] CARDIAC STRESS/REST INJECTION Patient Name: ERIN CANALES STUDY: MYOCARDIAL PERFUSION STRESS TEST WITH LEXISCAN Performing facility: [facility], [address] [place] [address], [address], [place] [address] [facility] Provider: Wili Olivarez MD, FACC PCP: Dr. Ashley [facility] Supervising provider: Bg Nation MD, FACC INDICATION: Angina pectoris CAD; HISTORY: Gender: F; Age: 87 y/o ; Height: 0 cm; Weight: 0 kg. Abnormal EKG; CAD; High Cholesterol; Family HX CAD; Arrhythmias; HTN; Chest Pain; SOB; Denies smoking. Cardiac catheterization on 2009. PTCA on 2009. COMPARISON: Previous nuclear testing completed [id number] at [facility]. ACCESSION NUMBER(S): [id number]; [id number]; [id number] ORDERING CLINICIAN: AKHIL OLIVAREZ TECHNIQUE: ONE DAY [...] Electronically signed by: BG NATION MD Normal [facility] No Panel Informationon 09-14 Please click on the link to view the study images Normal [facility]-Norwa lk 600 DO Work Phone: Normal [facility]-Sandu ayde 250 DO Work Phone: Tobacco Screening.on 023 Adult depression screening assessment No [facility]-Sandu ayde 250 DO Work Phone: Fall risk assessment b) One or more fall s in the last year [facility]-Sandu ayde 250 DO Work Phone: Tobacco use status CPHS b) No -[facility]-Sandu ayde 250 DO Work Phone: CNPNon 08-29-2022 CNPN Telephone (PLASMN) ERIN CANALES ([id number]) 1935 F Date Time Provider Department 08/29/22 SHWETA SOL During your visit today, we recorded the following information about you: Perry Zhang 08/29/2022 12:14 PM Signed Patient's daughter called with surgery questions and would like to speak with someone regarding anesthesia. Was not at appointment with mother when surgery was discussed. [phone] - Betty Canales (daughter) Geeta Archer RN 08/29/2022 12:56 PM Signed Returned call to patient's daughter. She was asking if the weight could be placed under local, explained that it could. The other options will require general and clearance from her needle grader. Allergies As of Date: 08/29/2022 Noted Allergy Reaction MOTRIN (IBUPROFEN) 10/29/2012 16 - Unknown DAGSIUJ-SCP-ABO REDUCTASE INHIBIT*08/25/2022 14 - Other: See Comments Comments: Cannot walk when she takes it Date Reviewed: 08/25/2022 Reviewed by: Thuy Robles MA - Fully Assessed Reason for Visit: Patient Question [9038] Prescriptions as of 08/29/2022 - torsemide (DEMADEX) [...] Encounter Status:Closed by PERRY ZHANG on 08/29/22 [facility] CNOVon 08-25-2022 CNOV Office Visit ([facility] ) ERIN CANALES ([id number]) 1935 F Date Time Provider Department 08/25/22 2:00 PM SHWETA SOL [facility] During your visit today, we recorded the following information about you: Temperature Pulse Blood pressure Weight 97.7 degrees 54/minute 113/48 83.8 kg Shweta Sol MD 08/25/2022 3:28 PM Signed CC: 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 This developed [...] Histories independentl (more content not included)... Normal [facility] Office Visit (Cardiology)on 08-02-2022 Follow-up visit Diagnoses/Problems Assessed Shortness of breath on exertion (786.05) (R06.02) Reported worsening over June 2022 Significant improvement with initiation of long-acting nitrate Arteriosclerosis of coronary artery (414.00) (I25.10) February 2010 mLAD PCI/COLBY mDiag PCI/COLBY OM3 PCI/COLBY RCA INVENTORY CLERK L>R bridging collaterals CX mild Paroxysmal atrial [...] 0.4 MG (more content not included)... Normal [facility] Tobacco Screening.on 023 Tobacco use status CPHS b) No -[facility]-Sandu ayde 250 DO Work Phone: CBC AUTO DIFFon 08-01-2022 BASO # 0.1 103/ul Normal 0.0-0.1 [facility] Comment on above: Performed By: #### C BC #### [facility] [address] [address] [address] Parth Wilson Basophils/100 WBC (Bld) 0.9 % Normal 0.2-2.0 [facility] Comment on above: Performed By: #### C BC #### [facility] [address] [address] [address] Parth Wilson EO # 0.1 103/ul Normal 0.0-0.7 [facility] Comment on above: Performed By: #### C BC #### [facility] [address] [address] [address] Parth Wilson Eosinophils/100 WBC (Bld) 1.6 % Normal 0.9-7.0 [facility] Comment on above: Performed By: #### C BC #### [facility] [address] [address] [address] Parth Wilson Erythrocyte distribution width (RBC) [Ratio] 14.7 % Normal 11.0-15.0 [facility] Comment on above: Performed By: #### C BC #### [facility] [address] [address] [address] Parth Wilson Hematocrit (Bld) [Volume fraction] 41.0 % Normal 36.0-48.0 [facility] Comment on above: Performed By: #### C BC #### [facility] [address] [address] [address] Parth Wilson Hemoglobin (Bld) [Mass/Vol] 12.8 g/dL Normal 12.0-16.0 [facility] Comment on above: Performed By: #### C BC #### [facility] [address] [place] [address] Dr. Parth Wilson IG # 0.02 10e3/ul Normal 0.00-0.03 [facility] Comment on above: Performed By: #### C BC #### [facility] [address] [place] [address] Dr. Parth Wilson IG % 0.4 % Normal 0.0-0.5 [facility] Comment on above: Performed By: #### C BC #### [facility] [address] [place] [address] Dr. Parth Wilson LYMPH # 1.6 103/ul Normal 1.2-3.8 [facility] Comment on above: Performed By: #### C BC #### [facility] [address] [place] [address] Dr. Parth Wilson Lymphocytes/100 WBC (Bld) 29.2 % Normal 20.5-60.0 [facility] Comment on above: Performed By: #### C BC #### [facility] [address] [place] [address] Dr. Parth Wilson MANUAL DIFF REQ NO Normal [facility] Comment on above: Performed By: #### C BC #### [facility] [address] [place] [address] Dr. Parth Wilson MCH (RBC) [Entitic mass] 30.8 pg Normal 26.7-34.0 [facility] Comment on above: Performed By: #### C BC #### [facility] [address] [place] [address] Dr. Parth Wilson MCHC (RBC) [Mass/Vol] 31.2 g/dL Normal 29.9-35.2 [facility] Comment on above: Performed By: #### C BC #### [facility] [address] [place] [address] Dr. Parth Wilson MCV (RBC) [Entitic vol] 98.8 fL Normal 81.0-99.0 [facility] Comment on above: Performed By: #### C BC #### [facility] [address] [place] [address] Dr. Parth Wilson MONO # 0.5 103/ul Normal 0.3-0.8 [facility] Comment on above: Performed By: #### C BC #### [facility] [address] [place] [address] Dr. Parth Wilson Monocytes/100 WBC (Bld) 9.5 % Normal 1.7-12.0 [facility] Comment on above: Performed By: #### C BC #### [facility] [address] [place] [address] Dr. Parth Wilson NEUT # 3.3 103/ul Normal 1.4-6.5 [facility] Comment on above: Performed By: #### C BC #### [facility] [address] [place] [address] Dr. Parth Wilson Neutrophils/100 WBC (Bld) 58.4 % Normal 43.0-75.0 [facility] Comment on above: Performed By: #### C BC #### [facility] [address] [place] [address] Dr. Parth Wilson Platelet mean volume (Bld) [Entitic vol] 9.9 fL Normal 9.5-13.5 [facility] Comment on above: Performed By: #### C BC #### [facility] [address] [place] [address] Dr. Parth Wilson PLT 213 103/ul Normal 150-450 [facility] Comment on above: Performed By: #### C BC #### [facility] [address] [place] [address] Dr. Parth Wilson RBC 4.15 106/ul Critically low 4.20-5.40 [facility] Comment on above: Performed By: #### C BC #### [facility] [address] [place] [address] Dr. Parth Wilson WBC 5.6 103/ul Normal 4.0-11.0 [facility] Comment on above: Performed By: #### C BC #### [facility] [address] [place] [address] Dr. Parth Wilson Office Visit (Cardiology)on 07-05-2022 [...] mLAD PCI/COLBY mDiag PCI/COLBY OM3 PCI/COLBY RCA INVENTORY CLERK L>R bridging collaterals CX mild Hyperlipidemia (272.4) [...] contact the office if new symptoms arise. [employer] ARCHITECT in one month to reassess symptoms If [...] lot. She did report that walking into [employer] last week was more difficult , she [...] patient is (more content not included)... Normal [employer] Tobacco Screening.on 023 Adult depression screening assessment No [facility] [employer] DO Work Phone: Fall risk assessment b) One or more fall s in the last year [facility] 250 DO Work Phone: Tobacco use status CPHS b) No [facility] DO Work Phone: CALCIUMon 06-28-2022 Calcium [Mass/Vol] 9.4 mg/dL Normal 8.5-10.1 [facility] Comment on above: Performed By: #### SINDHU WARD #### [facility] [address] [address] [address] Parth Wilson CREATININEon 06-28-2022 Creatinine [Mass/Vol] 1.27 mg/dL Critically high 0.55-1.02 [facility] Comment on above: Performed By: #### SINDHU WARD #### [facility] [address] [address] [address] Parth Wilson EGFR-AF QATARI 48 mL/min/1.73m2 Critically low >=60 [facility] Comment on above: Performed By: #### SINDHU WARD #### [facility] [address] [address] [address] Parth Wilson EGFR-NON AF QATARI 40 mL/min/1.73m2 Critically low >=60 [facility] Comment on above: Performed By: #### Abimbola [place] #### [facility] [address] [address] [address] Parth Wilson Aspartate aminotransferase [ Enzymatic activity/volume] in Serum or PlasmaOrdered By: Akhil Olivarez on 06-13-2022 AST [Catalytic activity/Vol] 26 U/L 10-42 [facility] Calcium [Mass/volume] in Ser um or PlasmaOrdered By: Akhil Olivarez on 06-13-2022 Calcium [Mass/Vol] 9.9 mg/dL 8.2-10.2 [facility] Carbon dioxide, total [Moles /volume] in Serum or PlasmaOrdered By: Akhil Olivarez on 06-13-2022 CO2 [Moles/Vol] 26.6 mmol/L 22.0-30.0 [facility] Chloride [Moles/volume] in S payal or PlasmaOrdered By: Akhil Olivarez on 06-13-2022 Chloride [Moles/Vol] 99 mmol/L 95-114 [facility] Creatinine and Glomerular fi ltration rate.predicted panel (S/P/Bld)Ordered By: Akhil Olivarez on 06-13-2022 Creatinine [Mass/Vol] 1.17 mg/dL 0.44-1.03 [facility] Glucose [Mass/volume] in Ser um or PlasmaOrdered By: Akhil Olivarez on 06-13-2022 Glucose [Mass/Vol] 111 mg/dL 70-100 [facility] Comment on above: ADA recommended refe rence rangeRandom Glucose Reference Range is dependent on time and content of last meal. Glucose of more than 200 mg/dL in a nonstressed, ambulatory subject supports the diagnosis of Diabetes Mellitus. Laboratory - Chemistry and C hemistry - challengeOrdered By: Akhil Olivarez on 06-13-2022 GFR/1.73 sq M.predicted MDRD (S/P/Bld) [Vol rate/Area] 44.882 mL/min/{1.73_m2} [facility] No Panel InformationOrdered By: Akhil Olivarez on 06-13-2022 Pharmacy Creatinine Clearance (Chem N/A [facility] No Panel Informationon 06-13 3.34\S\3.34 Normal 0.45-5.33 -[facility]-Sandu ayde 250 DO Work Phone: Comment on above: PERFORMED BY:[facility] [place], [place] [phone] MEDICAL DIRECTORGIULIA VALERIO M.D. 26\S\26 Normal 10-42 [facility] HeartTITIN TechGamaliel ayde 250 DO Work Phone: 9.9\S\9.9 Normal 8.2-10.2 [facility] [employer] ChannelGamaliel ayde 250 DO Work Phone: 16.1\S\16.1 above high threshold 6.0-15.0 [facility] Wordinairemicheal ayde 250 DO Work Phone: 26.6\S\26.6 Normal 22.0-30.0 [facility] Wordinairemicheal ayde 250 DO Work Phone: 99\S\99 Normal 95-114 [facility] Wordinairemicheal ayde 250 DO Work Phone: 4.7\S\4.7 Normal 3.5-5.1 [facility] Wordinairemicheal ayde 250 DO Work Phone: 137\S\137 Normal 136-146 [facility] [employer] ChannelGamaliel ayde 250 DO Work Phone: 1.17\S\1.17 above high threshold 0.44-1.03 [facility] [employer] ChannelGamaliel ayde 250 DO Work Phone: 35\S\35 above high threshold 9-23 [facility] [employer] ChannelGamaliel ayde 250 DO Work Phone: 111\S\111 above high threshold 70-100 [facility] [employer] ChannelGamaliel ayde 250 DO Work Phone: Comment on above: Random Glucose Refer ence Range is dependent on time and content of last meal. Glucose of more than 200 mg/dL in a nonstressed, ambulatory subject supports the diagnosis of Diabetes Mellitus. ADA recommended reference range 44.882\S\44.882 Normal [facility] [employer] ChannelGamaliel ayde 250 DO Work Phone: [phone] Potassium [Moles/volume] in Serum or PlasmaOrdered By: Akhil Olivarez on 06-13-2022 Potassium [Moles/Vol] 4.7 mmol/L 3.5-5.1 [facility] Radiologyon 06-13-2022 XR Chest 2 Views Normal -[facility]-Sandu ayde 250 DO Work Phone: Serum or plasma anion gap de terminationOrdered By: Akhil Olivarez on 06-13-2022 Anion gap [Moles/Vol] 16.1 mmol/L 6.0-15.0 [facility] Sodium [Moles/volume] in Ser um or PlasmaOrdered By: Akhil Olivarez on 06-13-2022 Sodium [Moles/Vol] 137 mmol/L 136-146 [facility] TSH DL <= 0.005 mIU/L QnOrde red By: Akhil Olivarez on 06-13-2022 TSH Qn 3.34 m[IU]/L 0.45-5.33 [facility] Urea nitrogen [Mass/volume] in Serum or PlasmaOrdered By: Akhil Olivarez on 06-13-2022 Urea nitrogen [Mass/Vol] 35 mg/dL 9-23 [facility] Covid-19 PCR (CVDTB)on SARS-CoV-2 (COVID-19) RNA CIERA+probe Ql (Unsp spec) Detected Critically abnormal NOT DETECTED [facility] Comment on above: Result Comment: This test is not yet approved or cleared by the [place] FDA. When there are no FDA-approved or cleared tests available, and other criteria are met, FDA can make tests available under an emergency access mechanism called an Emergency Use Authorization (EUA). The EUA for this test is supported by the Media Monitor of Health and Human Service's (HHS's) declaration [...] used). Performed By: #### C VDTB #### [facility] [address] [place] [address] Dr. Parth Wilson INFLUENZA A AND B AGon 03-10 [facility] SEE BELOW Normal [facility] Comment on above: Result Comment: Nega tive for Flu A protein angiten. Infection due to Flu A cannot be ruled out. Flu A angiten in the sample may be below the detection limit of the test. Performed By: #### I NFLUAB #### [facility] [address] [place] [address] Dr. Parth Wilson [facility]BN[facility]ALTH SEE BELOW Normal [facility] Comment on above: Result Comment: Nega tive for Flu B protein antigen. Infection due to Flu B cannot be ruled out. Flu B antigen in the sample may be below the detection limit of the test. Performed By: #### I NFLUAB #### [facility] [address] [place] [address] Dr. Parth Wilson INFLUENZA A AG Negative Normal NEGATIVE SEE COMMENT [facility] Comment on above: Performed By: #### I NFLUAB #### [facility] [address] [place] [address] Dr. Parth Wilson INFLUENZA B AG Negative Normal NEGATIVE SEE COMMENT [facility] Comment on above: Performed By: #### I NFLUAB #### [facility] [address] [place] [address] Dr. Parth Wilson INTERNAL CONTROLS Within Normal Limits Normal Wi thin Normal Limits [facility] Comment on above: Performed By: #### I NFLUAB #### [facility] [address] [place] [address] Dr. Parth Wilson Office Visit (Cardiology)on 02-07-2022 [...] TABLET DAILY DIRECTED. Managed at [facility]. Allergies Medication Beta Adrenergic Blockers Allergy; [...] Signs Recorded: 07Feb2022 10:11AM Heart Rate62, Apical [id number], RUE, Sitting Vypoapbgj27, RUE, Sitting Height5 ft 2 in Vxrdbu425 lb BMI Wkipfhocez08.84 kg/m2 BSA Calculated1.85 Tobacco Useb) No Falls Screening (Age 18+)b) One or more falls in the last year EKG done in office today Physical Exam Constitutional: alert and in no acute distress. Eyes: no erythema, swelling or discharge from the (more content not included)... Normal [employer] Tobacco Screening.on 022 Fall risk assessment b) One or more fall s in the last year [facility] [employer] 250 DO Work Phone: Tobacco use status CPHS b) No -[facility] [employer] 250 DO Work Phone: Activated partial thrombopla stin time (aPTT) in platelet poor plasma by coagulation aOrdered By: Myron Villarreal on 01-10-2022 aPTT Coag (PPP) [Time] 36.5 s 25.1-36.5 [facility] Albumin [Mass/volume] in Ser um or PlasmaOrdered By: Myron Villarreal on 01-10-2022 Albumin [Mass/Vol] 4.1 g/dL 3.2-5.5 [facility] Automated erythrocytes count in urine sediment (number/area)Ordered By: Myron Villarreal on 01-10-2022 RBC Auto (Urine sed) [#/Area] 0-1 [HPF] 0-4 [facility] Automated leukocytes count i n urine sediment (number/area)Ordered By: Myron Villarreal on 01-10-2022 WBC Auto (Urine sed) [#/Area] 50-100 [HPF] 0-4 [facility] Basophils Auto (Bld) [#/Vol] Ordered By: PROVIDER TEMP on 01-10-2022 Basophils (Bld) [#/Vol] 0.1 10*3/uL 0.0-0.2 [facility] Basophils/100 WBC Auto (Bld) Ordered By: PROVIDER TEMP on 01-10-2022 Basophils/100 WBC (Bld) 1.1 % . [facility] Bilirubin Test strip Ql (U)O rdered By: Myron Villarreal on 01-10-2022 Bilirubin Ql (U) Negative Negative [facility] Blood hemoglobin measurement (mass/volume)Ordered By: PROVIDER TEMP on 01-10-2022 Hemoglobin (Bld) [Mass/Vol] 14.2 g/dL 11.8-15.4 [facility] Blood leukocytes automated c ount (number/volume)Ordered By: PROVIDER TEMP on 01-10-2022 WBC (Bld) [#/Vol] 7.4 10*3/uL 4.5-11.0 [facility] Color Auto (U)Ordered By: Stanislav Villarreal on 01-10-2022 Color (U) Yellow Yellow [facility] Creatinine and Glomerular fi ltration rate.predicted panel (S/P/Bld)Ordered By: Myron Villarreal on 01-10-2022 Creatinine [Mass/Vol] 0.87 mg/dL 0.44-1.03 [facility] Eosinophils Auto (Bld) [#/Vo l]Ordered By: PROVIDER TEMP on 01-10-2022 Eosinophils (Bld) [#/Vol] 0.1 10*3/uL 0.0-0.45 [facility] Eosinophils/100 WBC Auto (Bl d)Ordered By: PROVIDER TEMP on 01-10-2022 Eosinophils/100 WBC (Bld) 1.0 % . [facility] Erythrocyte distribution wid th Auto (RBC) [Ratio]Ordered By: PROVIDER TEMP on 01-10-2022 Erythrocyte distribution width (RBC) [Ratio] 14.0 % 11.9-15.3 [facility] Estimated glomerular filtrat ion rate (GFR) non- AmericanOrdered By: Myron Villarreal on 01-10-2022 GFR/1.73 sq M.predicted among non-blacks MDRD (S/P/Bld) [Vol rate/Area] > 60 mL/Min [facility] Globulin Calc (S) [Mass/Vol] Ordered By: Myron Villarreal on 01-10-2022 Globulin (S) [Mass/Vol] 3.4 g/dL [facility] Hematocrit Auto (Bld) [Volum e fraction]Ordered By: PROVIDER TEMP on 01-10-2022 Hematocrit (Bld) [Volume fraction] 42.8 % 34.0-46.4 [facility] Ketones Auto test strip (U) [Mass/Vol]Ordered By: Myron Villarreal on 01-10-2022 Ketones (U) [Mass/Vol] Negative Negative [facility] Laboratory - CoagulationOrde red By: Myron Villarreal on 01-10-2022 PT Coag (PPP) [Time] 18.6 s 9.0-12.9 [facility] Laboratory - Hematology and Cell countsOrdered By: PROVIDER TEMP on 01-10-2022 Nucleated RBC/100 WBC (Bld) [Ratio] 0.2 % 0-0.5 [facility] Laboratory - UrinalysisOrder ed By: Myron Villarreal on 01-10-2022 Hyaline casts LM Ql (Urine sed) 0-8 [LPF] 0-8 [facility] Lymphocytes Auto (Bld) [#/Vo l]Ordered By: PROVIDER TEMP on 01-10-2022 Lymphocytes (Bld) [#/Vol] 1.6 10*3/uL 1.00-4.8 [facility] Lymphocytes/100 WBC Auto (Bl d)Ordered By: PROVIDER TEMP on 01-10-2022 Lymphocytes/100 WBC (Bld) 22.2 % . [facility] MCH Auto (RBC) [Entitic mass ]Ordered By: PROVIDER TEMP on 01-10-2022 MCH (RBC) [Entitic mass] 32.9 pg 24.7-34.3 [facility] MCHC Auto (RBC) [Mass/Vol]Or dered By: PROVIDER TEMP on 01-10-2022 MCHC (RBC) [Mass/Vol] 33.1 g/dL 32.0-35.0 [facility] MCV Auto (RBC) [Entitic vol] Ordered By: PROVIDER TEMP on 01-10-2022 MCV (RBC) [Entitic vol] 99.3 fL 80-100 [facility] Monocytes Auto (Bld) [#/Vol] Ordered By: PROVIDER TEMP on 01-10-2022 Monocytes (Bld) [#/Vol] 0.5 10*3/uL 0.0-0.8 [facility] Monocytes/100 WBC Auto (Bld) Ordered By: PROVIDER TEMP on 01-10-2022 Monocytes/100 WBC (Bld) 6.3 % . [facility] Neutrophils Auto (Bld) [#/Vo l]Ordered By: PROVIDER TEMP on 01-10-2022 Neutrophils (Bld) [#/Vol] 5.2 10*3/uL 1.8-7.7 [facility] Neutrophils/100 WBC Auto (Bl d)Ordered By: PROVIDER TEMP on 01-10-2022 Neutrophils/100 WBC (Bld) 69.4 % . [facility] Nitrite Test strip Ql (U)Ord ered By: Myron Villarreal on 01-10-2022 Nitrite Ql (U) Positive Negative [facility] No Panel InformationOrdered By: Myron Villarreal on 01-10-2022 Estimated GFR () > 60 mL/Min [facility] Comment on above: GFR estimated refere nce range: According to KDOQI guidelines, <60 ml/min/1.73m2 is sufficient to diagnose a patient with chronic kidney disease. Pharmacy Creatinine Clearance (Chem 44.27 [facility] Platelet mean volume Auto (B ld) [Entitic vol]Ordered By: PROVIDER TEMP on 01-10-2022 Platelet mean volume (Bld) [Entitic vol] 8.3 fL 6.3-10.7 [facility] Platelet poor plasma interna tional normalized ratio (INR) by coagulation assay (relatOrdered By: Myron Villarreal on 01-10-2022 INR Coag (PPP) [Relative time] 1.6 {INR} [facility] Comment on above: INR Therapeutic Rang e [...] 01-10-2022 Platelets (Bld) [#/Vol] 281 10*3/uL 150-450 [facility] Protein Auto test strip (U) [Mass/Vol]Ordered By: Myron Villarreal on 01-10-2022 Protein (U) [Mass/Vol] Negative Negative Fi [facility] Protein [Mass/volume] in Ser um or PlasmaOrdered By: Myron Villarreal on 01-10-2022 Protein [Mass/Vol] 7.5 g/dL 6.1-7.9 [facility] RBC Auto (Bld) [#/Vol]Ordere d By: PROVIDER TEMP on 01-10-2022 RBC (Bld) [#/Vol] 4.31 10*6/uL 3.60-5.00 [facility] Serum or plasma alanine owusu otransferase measurement without P-5'-P (enzymatic activiOrdered By: Myron Villarreal on 01-10-2022 ALT No additional P-5'-P [Catalytic activity/Vol] 15 U/L 1060 [facility] Serum or plasma albumin/glob ulin mass ratioOrdered By: Myron Villarreal on 01-10-2022 Albumin/Globulin [Mass ratio] 1.2 {ratio} [facility] Serum or plasma alkaline dulce maria sphatase measurement (enzymatic activity/volume)Ordered By: Myron Villarreal on 01-10-2022 ALP [Catalytic activity/Vol] 56 U/L 32-92 [facility] Serum or plasma anion gap de terminationOrdered By: Myron Villarreal on 01-10-2022 Anion gap [Moles/Vol] 14.5 mmol/L 6.0-15.0 [facility] Serum or plasma aspartate am inotransferase measurement (enzymatic activity/volume)Ordered By: Myron Villarreal on 01-10-2022 AST [Catalytic activity/Vol] 22 U/L 1042 [facility] Serum or plasma calcium silva urement (mass/volume)Ordered By: Myron Villarreal on 01-10-2022 Calcium [Mass/Vol] 9.5 mg/dL 8.2-10.2 [facility] Serum or plasma chloride hector surement (moles/volume)Ordered By: Myron Villarreal on 01-10-2022 Chloride [Moles/Vol] 100 mmol/L 95-114 [facility] Serum or plasma glucose silva urement (mass/volume)Ordered By: Myron Villarreal on 01-10-2022 Glucose [Mass/Vol] 88 mg/dL 70-100 [facility] Comment on above: ADA recommended refe rence rangeRandom Glucose Reference Range is dependent on time and content of last meal. Glucose of more than 200 mg/dL in a nonstressed, ambulatory subject supports the diagnosis of Diabetes Mellitus. Serum or plasma potassium me asurement (moles/volume)Ordered By: Myron Villarreal on 01-10-2022 Potassium [Moles/Vol] 4.0 mmol/L 3.5-5.1 [facility] Serum or plasma sodium measu rement (moles/volume)Ordered By: Myron Villarreal on 01-10-2022 Sodium [Moles/Vol] 138 mmol/L 136-146 [facility] Serum or plasma total biliru bin measurement (mass/volume)Ordered By: Myron Villarreal on 01-10-2022 Bilirubin [Mass/Vol] 0.5 mg/dL 0.3-1.2 [facility] Serum or plasma total carbon dioxide measurement (moles/volume)Ordered By: Myron Villarreal on 01-10-2022 CO2 [Moles/Vol] 27.5 mmol/L 22.0-30.0 [facility] Serum or plasma urea nitroge n measurement (mass/volume)Ordered By: Myron Villarreal on 01-10-2022 Urea nitrogen [Mass/Vol] 20 mg/dL 9-23 [facility] Specific gravity Auto test s trip (U) [Rel density]Ordered By: Myron Villarreal on 01-10-2022 Specific gravity (U) [Rel density] 1.014 1.001-1.03 0 [facility] Squamous epithelial cells de tection in urine sediment by light microscopyOrdered By: Myron Villarreal on 01-10-2022 Epithelial cells.squamous LM Ql (Urine sed) 0-1 [HPF] 0-2 [facility] Urine bacteria detection by automated methodOrdered By: Myron Villarreal on 01-10-2022 Bacteria Auto Ql (U) 4+ None Seen [facility] Urine clarity by refractomet ry automatedOrdered By: Myron Villarreal on 01-10-2022 Clarity Refractometry automated (U) Cloudy Clear [facility] Urine glucose measurement by automated test strip (mass/volume)Ordered By: Mryon Villarreal on 01-10-2022 Glucose Auto test strip (U) [Mass/Vol] Normal mg/dL Normal [facility] Urine hemoglobin detection b y automated test stripOrdered By: Myron Villarreal on 01-10-2022 Hemoglobin Auto test strip Ql (U) Negative Negative [facility] Urine leukocyte esterase det ection by automated test stripOrdered By: Myron Villarreal on 01-10-2022 Leukocyte esterase Auto test strip Ql (U) 4+ Negative [facility] Urobilinogen Auto test strip (U) [Mass/Vol]Ordered By: Myron Villarreal on 01-10-2022 Urobilinogen (U) [Mass/Vol] Normal mg/dL Normal [facility] pH Auto test strip (U)Ordere d By: Myron Villarreal on 01-10-2022 pH (U) 6.5 [pH] 5.0-9.0 [facility] Laboratory - CoagulationOrde red By: Doug Montana on 01-05-2022 PT Coag (PPP) [Time] 15.9 s 9.0-12.9 [facility] Platelet poor plasma interna tional normalized ratio (INR) by coagulation assay (relatOrdered By: Doug Montana on 01-05-2022 INR Coag (PPP) [Relative time] 1.4 {INR} [facility] Comment on above: INR Therapeutic Rang e [...] 01-04-2022 Basophils (Bld) [#/Vol] 0.1 10*3/uL 0.0-0.2 [facility] Basophils/100 WBC Auto (Bld) Ordered By: Doug Montana on 01-04-2022 Basophils/100 WBC (Bld) 0.6 % . [facility] Blood hemoglobin measurement (mass/volume)Ordered By: Doug Montana on 01-04-2022 Hemoglobin (Bld) [Mass/Vol] 14.3 g/dL 11.8-15.4 [facility] Blood leukocytes automated c ount (number/volume)Ordered By: Doug Montana on 01-04-2022 WBC (Bld) [#/Vol] 10.4 10*3/uL 4.5-11.0 [facility] Eosinophils Auto (Bld) [#/Vo l]Ordered By: Doug Montana on 01-04-2022 Eosinophils (Bld) [#/Vol] 0.1 10*3/uL 0.0-0.45 [facility] Eosinophils/100 WBC Auto (Bl d)Ordered By: Doug Montana on 01-04-2022 Eosinophils/100 WBC (Bld) 0.6 % . [facility] Erythrocyte distribution wid th Auto (RBC) [Ratio]Ordered By: Doug Montana on 01-04-2022 Erythrocyte distribution width (RBC) [Ratio] 14.2 % 11.9-15.3 [facility] Hematocrit Auto (Bld) [Volum e fraction]Ordered By: Doug Montana on 01-04-2022 Hematocrit (Bld) [Volume fraction] 42.9 % 34.0-46.4 [facility] Laboratory - CoagulationOrde red By: Doug Montana on 01-04-2022 PT Coag (PPP) [Time] 19.8 s 9.0-12.9 [facility] Laboratory - Hematology and Cell countsOrdered By: Doug Montana on 01-04-2022 Nucleated RBC/100 WBC (Bld) [Ratio] 0.1 % 0-0.5 [facility] Lymphocytes Auto (Bld) [#/Vo l]Ordered By: Doug Montana on 01-04-2022 Lymphocytes (Bld) [#/Vol] 2.1 10*3/uL 1.00-4.8 [facility] Lymphocytes/100 WBC Auto (Bl d)Ordered By: Doug Montana on 01-04-2022 Lymphocytes/100 WBC (Bld) 20.2 % . [facility] MCH Auto (RBC) [Entitic mass ]Ordered By: Doug Montana on 01-04-2022 MCH (RBC) [Entitic mass] 33.0 pg 24.7-34.3 [facility] MCHC Auto (RBC) [Mass/Vol]Or dered By: Doug Montana on 01-04-2022 MCHC (RBC) [Mass/Vol] 33.3 g/dL 32.0-35.0 [facility] MCV Auto (RBC) [Entitic vol] Ordered By: Doug Montana on 01-04-2022 MCV (RBC) [Entitic vol] 99.1 fL 80-100 [facility] Monocytes Auto (Bld) [#/Vol] Ordered By: Doug Montana on 01-04-2022 Monocytes (Bld) [#/Vol] 0.6 10*3/uL 0.0-0.8 [facility] Monocytes/100 WBC Auto (Bld) Ordered By: Doug Montana on 01-04-2022 Monocytes/100 WBC (Bld) 5.3 % . [facility] Neutrophils Auto (Bld) [#/Vo l]Ordered By: Doug Montana on 01-04-2022 Neutrophils (Bld) [#/Vol] 7.6 10*3/uL 1.8-7.7 [facility] Neutrophils/100 WBC Auto (Bl d)Ordered By: Doug Montana on 01-04-2022 Neutrophils/100 WBC (Bld) 73.3 % . [facility] Platelet mean volume Auto (B ld) [Entitic vol]Ordered By: Doug Montnaa on 01-04-2022 Platelet mean volume (Bld) [Entitic vol] 7.8 fL 6.3-10.7 [facility] Platelet poor plasma interna tional normalized ratio (INR) by coagulation assay (relatOrdered By: Doug Montana on 01-04-2022 INR Coag (PPP) [Relative time] 1.8 {INR} [facility] Comment on above: INR Therapeutic Rang e [...] 01-04-2022 Platelets (Bld) [#/Vol] 296 10*3/uL 150-450 [facility] RBC Auto (Bld) [#/Vol]Ordere d By: Doug Montana on 01-04-2022 RBC (Bld) [#/Vol] 4.33 10*6/uL 3.60-5.00 [facility] CALCIUMon 12-29-2021 Calcium [Mass/Vol] 9.3 mg/dL Normal 8.5-10.1 [facility] Comment on above: Performed By: #### SINDHU WARD #### [facility] [address] [address] [address] Parth Wilson CREATININEon 12-29-2021 Creatinine [Mass/Vol] 0.97 mg/dL Normal 0.55-1.02 [facility] Comment on above: Performed By: #### [place] #### [facility] [address] [address] [address] Parth Wilson EGFR-AF QATARI >60 Normal >=60 [facility] Comment on above: Performed By: #### [place] #### [facility] [address] [address] [address] Parth Wilson EGFR-NON AF QATARI 54 mL/min/1.73m2 Critically low >=60 [facility] Comment on above: Performed By: #### [place] #### [facility] [address] [address] [address] Parth Wilson Creatinine and Glomerular fi ltration rate.predicted panel (S/P/Bld)Ordered By: Akhil Olivarez on 12-13-2021 Creatinine [Mass/Vol] 0.74 mg/dL 0.44-1.03 [facility] Estimated glomerular filtrat ion rate (GFR) non- AmericanOrdered By: Akhil Olivarez on 12-13-2021 GFR/1.73 sq M.predicted among non-blacks MDRD (S/P/Bld) [Vol rate/Area] > 60 mL/Min [facility] No Panel InformationOrdered By: Akhil Olivarez on 12-13-2021 Estimated GFR () > 60 mL/Min [facility] Comment on above: GFR estimated refere nce range: According to KDOQI guidelines, <60 ml/min/1.73m2 is sufficient to diagnose a patient with chronic kidney disease. Pharmacy Creatinine Clearance (Chem N/A [facility] No Panel Informationon 12-13 3.46\S\3.46 Normal 0.45-5.33 -[facility] DO Work Phone: Comment on above: PERFORMED BY:[address] [address] [address] FONTAINERICHARD [place] [phone] MEDICAL DIRECTORGIULIA VALERIO M.D. 19\S\19 Normal 10-42 -[facility] DO Work Phone: [phone] 19.5\S\19.5 above high threshold 6.0-15.0 [facility] DO Work Phone: [phone] 10.4\S\10.4 above high threshold 8.2-10.2 -[facility] DO Work Phone: [phone] 26.6\S\26.6 Normal 22.0-30.0 [facility] DO Work Phone: 95\S\95 Normal 95-114 [facility] DO Work Phone: 4.1\S\4.1 Normal 3.5-5.1 -[facility] DO Work Phone: 137\S\137 Normal 136-146 [facility] DO Work Phone: > 60 Normal [facility]L[address] DO Work Phone: Comment on above: GFR estimated refere nce range: According to KDOQI guidelines, <60 ml/min/1.73m2 is sufficient to diagnose a patient with chronic kidney disease. 0.74\S\0.74 Normal 0.44-1.03 [facility] DO Work Phone: 11\S\11 Normal 9-23 -[facility] DO Work Phone: 111\S\111 above high threshold 70-100 -[facility] DO Work Phone: Comment on above: Random Glucose Refer ence Range is dependent on time and content of last meal. Glucose of more than 200 mg/dL in a nonstressed, ambulatory subject supports the diagnosis of Diabetes Mellitus. ADA recommended reference range Radiologyon 12-13-2021 XR Chest 2 Views Normal [facility] [address] DO Work Phone: Serum or plasma anion gap de terminationOrdered By: Akhil Olivarez on 12-13-2021 Anion gap [Moles/Vol] 19.5 mmol/L 6.0-15.0 [facility] Serum or plasma aspartate am inotransferase measurement (enzymatic activity/volume)Ordered By: Akhil Olivarez on 12-13-2021 AST [Catalytic activity/Vol] 19 U/L 10-42 [facility] Serum or plasma calcium silva urement (mass/volume)Ordered By: Akhil Olivarez on 12-13-2021 Calcium [Mass/Vol] 10.4 mg/dL 8.2-10.2 [facility] Serum or plasma chloride hector surement (moles/volume)Ordered By: Akhil Olivarez on 12-13-2021 Chloride [Moles/Vol] 95 mmol/L 95-114 [facility] Serum or plasma glucose silva urement (mass/volume)Ordered By: Akhil Olivarez on 12-13-2021 Glucose [Mass/Vol] 111 mg/dL 70-100 [facility] Comment on above: ADA recommended refe [...] on 12-13-2021 Potassium [Moles/Vol] 4.1 mmol/L 3.5-5.1 [facility] Serum or plasma sodium measu rement (moles/volume)Ordered By: Akhil Olivarez on 12-13-2021 Sodium [Moles/Vol] 137 mmol/L 136-146 [facility] Serum or plasma total carbon dioxide measurement (moles/volume)Ordered By: Akhil Olivarez on 12-13-2021 CO2 [Moles/Vol] 26.6 mmol/L 22.0-30.0 [facility] Serum or plasma urea nitroge n measurement (mass/volume)Ordered By: Akhil Olivarez on 12-13-2021 Urea nitrogen [Mass/Vol] 11 mg/dL 9- [facility] TSH DL <= 0.005 mIU/L QnOrde red By: Akhil Olivarez on 12-13-2021 TSH Qn 3.46 m[IU]/L 0.45-5.33 [facility] Office Visit (Cardiology)on 11-28-2021 Follow-up visit Diagnoses/Problems [...] Weight Tips; Status:Complete - Retrospective Authorization; Done: [id number] SocHx: Never a smoker Tobacco Use Screening; Status:Complete; Done: [id number] Patient Instructions Please bring all medicines, vitamins, [...] TABLET DAILY DIRECTED. Managed at [facility]. Allergies Medication Motrin TABS Allergy; Hives;; [...] complaint. Vitals Vital Signs Recorded: 28Nov2021 08:51AMRecorded: 28Nov2021 08:22AM [id number], LUE, Ejxhkmo663, LUE, Sitting Hkyodxkhm82, LUE, Speezce98, LUE, Sitting Heart Rate72, L Radial Height5 ft 2 in Kgmgah736 lb BMI Nmatztlehh82.64 kg/m2 BSA Calculated1.8 Tobacco Useb) No Falls [...] . Psyc (more content not included)... Normal [facility] Tobacco Screening.on 022 Fall risk assessment a) No falls within the last year [facility] [address] DO Work Phone: Tobacco use status [facility] b) No [facility] [address] DO Work Phone: Laboratory - CoagulationOrde red By: Nguyễn Langston on 10-29-2021 PT Coag (PPP) [Time] 38.1 s 9.0-12.9 [facility] Platelet poor plasma interna tional normalized ratio (INR) by coagulation assay (relatOrdered By: Nguyễn Langston on 10-29-2021 INR Coag (PPP) [Relative time] 3.3 {INR} [facility] Comment on above: INR Therapeutic Rang e [...] aPTT Coag (PPP) [Time] 45.5 s 25.1-36.5 [facility] Albumin [Mass/volume] in Ser um or PlasmaOrdered By: Stephanie Locke on 10-28-2021 Albumin [Mass/Vol] 3.9 g/dL 3.2-5.5 [facility] Basophils Auto (Bld) [#/Vol] Ordered By: Nguyễn Langston on 10-28-2021 Basophils (Bld) [#/Vol] 0.0 10*3/uL 0.0-0.2 [facility] Basophils/100 WBC Auto (Bld) Ordered By: Nguyễn Langston on 10-28-2021 Basophils/100 WBC (Bld) 0.3 % . [facility] Bilirubin Test strip Ql (U)O rdered By: Stephanie Locke on 10-28-2021 Bilirubin Ql (U) Negative Negative [facility] Blood hemoglobin measurement (mass/volume)Ordered By: Nguyễn Langston on 10-28-2021 Hemoglobin (Bld) [Mass/Vol] 14.6 g/dL 11.8-15.4 [facility] Blood leukocytes automated c ount (number/volume)Ordered By: Nguyễn Langston on 10-28-2021 WBC (Bld) [#/Vol] 7.1 10*3/uL 4.5-11.0 [facility] C reactive protein [Mass/vol ume] in Serum or Plasma by High sensitivity methodOrdered By: Tatyana Madrid on 10-28-2021 CRP High sensitivity method [Mass/Vol] 1.8 mg/L [facility] Comment on above: Cardiovascular Risk Classification (AHA/CDC) [...] SARS-CoV-2 (COVID-19) Ab IA Ql Negative Negative [facility] Comment on above: This is a duplicate Cepheid Xpert Xpress CoV-2/Flu/RSV Plus RNA by RT-PCR result to be used for statistical tracking purpose only. SARS-CoV-2 (COVID-19) RNA CIERA+probe Ql (Unsp spec) [facility] COVID-19 SOFIAOrdered By: Izzy Locke on 10-28-2021 SARS-CoV+SARS-CoV-2 (COVID-19) Ag IA.rapid Ql (Resp) Negative Negative [facility] Comment on above: This is a duplicate Luiza SARS Antigen (BRANDON) result to be used for statistical tracking purpose only. Cholesterol [Mass/volume] in Serum or PlasmaOrdered By: Ashely Adan on 10-28-2021 Cholesterol [Mass/Vol] 230 mg/dL 140-200 [facility] Comment on above: Chol less than 200 m g/dl low risk Chol 201-239 mg/dl borderline risk Chol 240 mg/dl and greater high risk Chol less than 200 m g/dl low riskChol 201-239 mg/dl borderline riskChol 240 mg/dl and greater high risk Cholesterol in LDL Calc [Mas s/Vol]Ordered By: Ashely Adan on 10-28-2021 Cholesterol in LDL [Mass/Vol] 158 mg/dL 0-100 [facility] Comment on above: LDL ATP III CLASSIFI [...] 10-28-2021 Cholesterol in VLDL [Mass/Vol] 21 mg/dL [facility] Color Auto (U)Ordered By: Izzy Locke on 10-28-2021 Color (U) Yellow Yellow [facility] Creatine kinase [Enzymatic a ctivity/volume] in Serum or PlasmaOrdered By: Nguyễn Langston on 10-28-2021 CK [Catalytic activity/Vol] 58 U/L [facility] Creatinine and Glomerular fi ltration rate.predicted panel (S/P/Bld)Ordered By: Nguyễn Langston on 10-28-2021 Creatinine [Mass/Vol] 0.88 mg/dL 0.44-1.03 [facility] Digoxin [Mass/volume] in Ser um or PlasmaOrdered By: Nguyễn Langston on 10-28-2021 Digoxin [Mass/Vol] 1.0 ng/mL 0.9-2.0 [facility] Comment on above: Last dose: - Eosinophils Auto (Bld) [#/Vo l]Ordered By: Nguyễn Langston on 10-28-2021 Eosinophils (Bld) [#/Vol] 0.0 10*3/uL 0.0-0.45 [facility] Eosinophils/100 WBC Auto (Bl d)Ordered By: Nguyễn Langston on 10-28-2021 Eosinophils/100 WBC (Bld) 0.3 % . [facility] Erythrocyte distribution wid th Auto (RBC) [Ratio]Ordered By: Nguyễn Langston on 10-28-2021 Erythrocyte distribution width (RBC) [Ratio] 13.1 % 11.9-15.3 [facility] Erythrocyte sedimentation ra te by Photometric methodOrdered By: Tatyana Madrid on 10-28-2021 ESR Photometric method (Bld) [Velocity] 24 mm/hr 0-29 [facility] Estimated glomerular filtrat ion rate (GFR) non- AmericanOrdered By: Nguyễn Langston on 10-28-2021 GFR/1.73 sq M.predicted among non-blacks MDRD (S/P/Bld) [Vol rate/Area] > 60 mL/Min [facility] Globulin Calc (S) [Mass/Vol] Ordered By: Stephanie Locke on 10-28-2021 Globulin (S) [Mass/Vol] 3.7 g/dL [facility] Glucose mean value [Mass/vol ume] in Blood Estimated from glycated hemoglobinOrdered By: Ashely Adan on 10-28-2021 Average glucose Estimated from glycated hemoglobin (Bld) [Mass/Vol] 137 mg/dL [facility] Hematocrit Auto (Bld) [Volum e fraction]Ordered By: Nguyễn Langston on 10-28-2021 Hematocrit (Bld) [Volume fraction] 43.8 % 34.0-46.4 [facility] Hemoglobin A1c percentageOrd ered By: Ashely Adan on 10-28-2021 HbA1c (Bld) [Mass fraction] 6.4 % 4.3-5.6 [facility] Comment on above: Increased risk for d iabetes: 5.7 - 6.4 diabetes: >6.4 glycemic control for adults with diabetes: <7.0 Increased risk for d iabetes: 5.7 - 6.4diabetes: >6.4glycemic control for adults with diabetes: <7.0 Ketones Auto test strip (U) [Mass/Vol]Ordered By: Stephanie Locke on 10-28-2021 Ketones (U) [Mass/Vol] Trace Negative [facility] Laboratory - Chemistry and C hemistry - challengeOrdered By: Nguyễn Langston on 10-28-2021 Cobalamin (Vitamin B12) [Mass/Vol] 2953 pg/mL 180-914 [facility] Magnesium [Mass/Vol] 2.2 mg/dL 1.6-2.6 [facility] Laboratory - Chemistry and C hemistry - challengeOrdered By: Stephanie Locke on 10-28-2021 Natriuretic peptide B (Bld) [Mass/Vol] 75.0 pg/mL 5-100 [facility] Laboratory - CoagulationOrde red By: Stephanie Locke on 10-28-2021 PT Coag (PPP) [Time] 30.7 s 9.0-12.9 [facility] Laboratory - Hematology and Cell countsOrdered By: Nguyễn Langston on 10-28-2021 Nucleated RBC/100 WBC (Bld) [Ratio] 0.1 % 0-0.5 [facility] Lymphocytes Auto (Bld) [#/Vo l]Ordered By: Nguyễn Langston on 10-28-2021 Lymphocytes (Bld) [#/Vol] 1.3 10*3/uL 1.00-4.8 [facility] Lymphocytes/100 WBC Auto (Bl d)Ordered By: Nguyễn Langston on 10-28-2021 Lymphocytes/100 WBC (Bld) 18.0 % . [facility] MCH Auto (RBC) [Entitic mass ]Ordered By: Nguyễn Langston on 10-28-2021 MCH (RBC) [Entitic mass] 32.1 pg 24.7-34.3 [facility] MCHC Auto (RBC) [Mass/Vol]Or dered By: Nguyễn Langston on 10-28-2021 MCHC (RBC) [Mass/Vol] 33.4 g/dL 32.0-35.0 [facility] MCV Auto (RBC) [Entitic vol] Ordered By: Nguyễn Langston on 10-28-2021 MCV (RBC) [Entitic vol] 96.1 fL 80-100 [facility] Monocytes Auto (Bld) [#/Vol] Ordered By: Nguyễn Langston on 10-28-2021 Monocytes (Bld) [#/Vol] 0.8 10*3/uL 0.0-0.8 [facility] Monocytes/100 WBC Auto (Bld) Ordered By: Nguyễn Langston on 10-28-2021 Monocytes/100 WBC (Bld) 11.9 % . [facility] Neutrophils Auto (Bld) [#/Vo l]Ordered By: Nguyễn Langston on 10-28-2021 Neutrophils (Bld) [#/Vol] 4.9 10*3/uL 1.8-7.7 [facility] Neutrophils/100 WBC Auto (Bl d)Ordered By: Nguyễn Langston on 10-28-2021 Neutrophils/100 WBC (Bld) 69.5 % . [facility] Nitrite Test strip Ql (U)Ord ered By: Stephanie Locke on 10-28-2021 Nitrite Ql (U) Negative Negative [facility] No Panel InformationOrdered By: Nguyễn Langston on 10-28-2021 25-Hydroxy Vitamin D Total 46.5 ng/mL 30-100 [facility] Comment on above: VITAMIN D STATUS 25( [...] 96(7):1911-30. Estimated GFR () > 60 mL/Min [facility] Comment on above: GFR estimated refere nce range: According to KDOQI guidelines, <60 ml/min/1.73m2 is sufficient to diagnose a patient with chronic kidney disease. Pharmacy Creatinine Clearance (Chem 56.85 [facility] Platelet mean volume Auto (B ld) [Entitic vol]Ordered By: Nguyễn Langston on 10-28-2021 Platelet mean volume (Bld) [Entitic vol] 8.4 fL 6.3-10.7 [facility] Platelet poor plasma interna tional normalized ratio (INR) by coagulation assay (relatOrdered By: Stephanie Locke on 10-28-2021 INR Coag (PPP) [Relative time] 2.7 {INR} [facility] Comment on above: INR Therapeutic Rang e [...] 10-28-2021 Platelets (Bld) [#/Vol] 229 10*3/uL 150-450 [facility] Protein Auto test strip (U) [Mass/Vol]Ordered By: Stephanie Locke on 10-28-2021 Protein (U) [Mass/Vol] Negative Negative [facility] Protein [Mass/volume] in Ser um or PlasmaOrdered By: Stephanie Locke on 10-28-2021 Protein [Mass/Vol] 7.6 g/dL 6.1-7.9 [facility] RBC Auto (Bld) [#/Vol]Ordere d By: Nguyễn Langston on 10-28-2021 RBC (Bld) [#/Vol] 4.56 10*6/uL 3.60-5.00 [facility] Serum or plasma alanine owusu otransferase measurement without P-5'-P (enzymatic activiOrdered By: Stephanie Locke on 10-28-2021 ALT No additional P-5'-P [Catalytic activity/Vol] 21 U/L 10-60 [facility] Serum or plasma albumin/glob ulin mass ratioOrdered By: Stephanie Locke on 10-28-2021 Albumin/Globulin [Mass ratio] 1.1 {ratio} [facility] Serum or plasma alkaline dulce maria sphatase measurement (enzymatic activity/volume)Ordered By: Stephanie Locke on 10-28-2021 ALP [Catalytic activity/Vol] 57 U/L 32-92 [facility] Serum or plasma aspartate am inotransferase measurement (enzymatic activity/volume)Ordered By: Stephanie Locke on 10-28-2021 AST [Catalytic activity/Vol] 25 U/L 10-42 [facility] Serum or plasma calcium silva urement (mass/volume)Ordered By: Nguyễn Langston on 10-28-2021 Calcium [Mass/Vol] 8.8 mg/dL 8.2-10.2 [facility] Serum or plasma chloride hector surement (moles/volume)Ordered By: Nguyễn Langston on 10-28-2021 Chloride [Moles/Vol] 98 mmol/L 95-114 [facility] Serum or plasma glucose silva urement (mass/volume)Ordered By: Nguyễn Langston on 10-28-2021 Glucose [Mass/Vol] 121 mg/dL 70-100 [facility] Comment on above: ADA recommended refe [...] Cholesterol in HDL [Mass/Vol] 50 mg/dL 35-85 [facility] Comment on above: HDL CHOL ATP-III CLA SSIFICATION Cardiovascular Risk HDL > or equal to 60 mg/dL LOW HDL < 40 mg/dL HIGH HDL CHOL ATP-III CLA SSIFICATION Cardiovascular RiskHDL > or equal to 60 mg/dL LOWHDL < 40 mg/dL HIGH Serum or plasma potassium me asurement (moles/volume)Ordered By: Nguyễn Langston on 10-28-2021 Potassium [Moles/Vol] 4.3 mmol/L 3.5-5.1 [facility] Serum or plasma sodium measu rement (moles/volume)Ordered By: Nguyễn Langston on 10-28-2021 Sodium [Moles/Vol] 134 mmol/L 136-146 [facility] Serum or plasma total biliru bin measurement (mass/volume)Ordered By: Stephanie Locke on 10-28-2021 Bilirubin [Mass/Vol] 0.8 mg/dL 0.3-1.2 [facility] Serum or plasma total carbon dioxide measurement (moles/volume)Ordered By: Nguyễn Langston on 10-28-2021 CO2 [Moles/Vol] 25.0 mmol/L 22.0-30.0 [facility] Serum or plasma total choles terol/high density lipoprotein (HDL) cholesterol mass ratOrdered By: Ashely Adan on 10-28-2021 Cholesterol.total/Chol esterol in HDL [Mass ratio] 4.6 {ratio} <5.0 [facility] Serum or plasma urea nitroge n measurement (mass/volume)Ordered By: Nguyễn Langston on 10-28-2021 Urea nitrogen [Mass/Vol] 27 mg/dL 9- [facility] Specific gravity Auto test s trip (U) [Rel density]Ordered By: Stephanie Locke on 10-28-2021 Specific gravity (U) [Rel density] 1.012 1.001-1.03 0 [facility] TSH DL <= 0.005 mIU/L QnOrde red By: Nguyễn Langston on 10-28-2021 TSH Qn 1.93 m[IU]/L 0.45-5.33 [facility] Thyroxine (T4) free [Mass/vo lume] in Serum or PlasmaOrdered By: Nguyễn Langston on 10-28-2021 Free T4 [Mass/Vol] 1.04 ng/dL 0.61-1.12 [facility] Triglyceride [Mass/volume] i n Serum or PlasmaOrdered By: Ashely Adan on 10-28-2021 Triglyceride [Mass/Vol] 108 mg/dL 35-149 [facility] Comment on above: TRIG ATP III CLASSIF [...] High sensitivity method [Mass/Vol] 13 pg/mL 0-15 [facility] Urine clarity by refractomet ry automatedOrdered By: Stephanie Locke on 10-28-2021 Clarity Refractometry automated (U) Clear Clear [facility] Urine glucose measurement by automated test strip (mass/volume)Ordered By: Stephanie Locke on 10-28-2021 Glucose Auto test strip (U) [Mass/Vol] Normal mg/dL Normal [facility] Urine hemoglobin detection b y automated test stripOrdered By: Stephanie Locke on 10-28-2021 Hemoglobin Auto test strip Ql (U) Negative Negative [facility] Urine leukocyte esterase det ection by automated test stripOrdered By: Stephanie Locke on 10-28-2021 Leukocyte esterase Auto test strip Ql (U) Negative Negative [facility] Urobilinogen Auto test strip (U) [Mass/Vol]Ordered By: Stephanie Locke on 10-28-2021 Urobilinogen (U) [Mass/Vol] Normal mg/dL Normal [facility] pH Auto test strip (U)Ordere d By: Stephanie Locke on 10-28-2021 pH (U) 6.0 [pH] 5.0-9.0 [facility] Activated partial thrombopla stin time (aPTT) in platelet poor plasma by coagulation aOrdered By: Myron Villarreal on 10-25-2021 aPTT Coag (PPP) [Time] 44.9 s 25.1-36.5 [facility] Albumin [Mass/volume] in Ser um or PlasmaOrdered By: Myron Villarreal on 10-25-2021 Albumin [Mass/Vol] 4.1 g/dL 3.2-5.5 [facility] Basophils Auto (Bld) [#/Vol] Ordered By: Myron Villarreal on 10-25-2021 Basophils (Bld) [#/Vol] 0.1 10*3/uL 0.0-0.2 [facility] Basophils/100 WBC Auto (Bld) Ordered By: Myron Villarreal on 10-25-2021 Basophils/100 WBC (Bld) 0.9 % . [facility] Blood hemoglobin measurement (mass/volume)Ordered By: Myron Villarreal on 10-25-2021 Hemoglobin (Bld) [Mass/Vol] 15.8 g/dL 11.8-15.4 [facility] Blood leukocytes automated c ount (number/volume)Ordered By: Myron Villarreal on 10-25-2021 WBC (Bld) [#/Vol] 9.4 10*3/uL 4.5-11.0 [facility] Creatine kinase [Enzymatic a ctivity/volume] in Serum or PlasmaOrdered By: Myron Villarreal on 10-25-2021 CK [Catalytic activity/Vol] 64 U/L 22-269 [facility] Creatinine and Glomerular fi ltration rate.predicted panel (S/P/Bld)Ordered By: Myrno Villarreal on 10-25-2021 Creatinine [Mass/Vol] 1.02 mg/dL 0.44-1.03 [facility] Eosinophils Auto (Bld) [#/Vo l]Ordered By: Myron Villarreal on 10-25-2021 Eosinophils (Bld) [#/Vol] 0.1 10*3/uL 0.0-0.45 [facility] Eosinophils/100 WBC Auto (Bl d)Ordered By: Myron Villarreal on 10-25-2021 Eosinophils/100 WBC (Bld) 1.0 % . [facility] Erythrocyte distribution wid th Auto (RBC) [Ratio]Ordered By: Myron Villarreal on 10-25-2021 Erythrocyte distribution width (RBC) [Ratio] 13.0 % 11.9-15.3 [facility] Estimated glomerular filtrat ion rate (GFR) non- AmericanOrdered By: Myron Villarreal on 10-25-2021 GFR/1.73 sq M.predicted among non-blacks MDRD (S/P/Bld) [Vol rate/Area] 51 mL/Min [facility] Globulin Calc (S) [Mass/Vol] Ordered By: Myron Villarreal on 10-25-2021 Globulin (S) [Mass/Vol] 3.7 g/dL [facility] Glucose Glucometer (BldC) [M ass/Vol]Ordered By: Guillermo Sanders on 10-25-2021 Glucose [Mass/Vol] 143 mg/dL [facility] Comment on above: Random Glucose Refer ence Range is dependent on time and content of last meal. Glucose of more than 200 mg/dL in a nonstressed, ambulatory subject supports the diagnosis of Diabetes Mellitus. Hematocrit Auto (Bld) [Volum e fraction]Ordered By: Myron Villarreal on 10-25-2021 Hematocrit (Bld) [Volume fraction] 47.4 % 34.0-46.4 [facility] Laboratory - CoagulationOrde red By: Myron Villarreal on 10-25-2021 PT Coag (PPP) [Time] 29.8 s 9.0-12.9 [facility] Laboratory - Hematology and Cell countsOrdered By: Myron Villarreal on 10-25-2021 Nucleated RBC/100 WBC (Bld) [Ratio] 0.0 % 0-0.5 [facility] Lymphocytes Auto (Bld) [#/Vo l]Ordered By: Myron Villarreal on 10-25-2021 Lymphocytes (Bld) [#/Vol] 1.6 10*3/uL 1.00-4.8 [facility] Lymphocytes/100 WBC Auto (Bl d)Ordered By: Myron Villarreal on 10-25-2021 Lymphocytes/100 WBC (Bld) 16.9 % . [facility] MCH Auto (RBC) [Entitic mass ]Ordered By: Myron Villarreal on 10-25-2021 MCH (RBC) [Entitic mass] 32.1 pg 24.7-34.3 [facility] MCHC Auto (RBC) [Mass/Vol]Or dered By: Myron Villarreal on 10-25-2021 MCHC (RBC) [Mass/Vol] 33.4 g/dL 32.0-35.0 [facility] MCV Auto (RBC) [Entitic vol] Ordered By: Myron Villarreal on 10-25-2021 MCV (RBC) [Entitic vol] 96.1 fL 80-100 [facility] Monocytes Auto (Bld) [#/Vol] Ordered By: Myron Villarreal on 10-25-2021 Monocytes (Bld) [#/Vol] 1.1 10*3/uL 0.0-0.8 [facility] Monocytes/100 WBC Auto (Bld) Ordered By: Myron Villarreal on 10-25-2021 Monocytes/100 WBC (Bld) 11.4 % . [facility] Neutrophils Auto (Bld) [#/Vo l]Ordered By: Myron Villarreal on 10-25-2021 Neutrophils (Bld) [#/Vol] 6.5 10*3/uL 1.8-7.7 [facility] Neutrophils/100 WBC Auto (Bl d)Ordered By: Myron Villarreal on 10-25-2021 Neutrophils/100 WBC (Bld) 69.8 % . [facility] No Panel InformationOrdered By: Myron Villarreal on 10-25-2021 Estimated GFR () > 60 mL/Min [facility] Comment on above: GFR estimated refere nce range: According to KDOQI guidelines, <60 ml/min/1.73m2 is sufficient to diagnose a patient with chronic kidney disease. Pharmacy Creatinine Clearance (Chem N/A [facility] Platelet mean volume Auto (B ld) [Entitic vol]Ordered By: Myron Villarreal on 10-25-2021 Platelet mean volume (Bld) [Entitic vol] 8.6 fL 6.3-10.7 [facility] Platelet poor plasma interna tional normalized ratio (INR) by coagulation assay (relatOrdered By: Myron Villarreal on 10-25-2021 INR Coag (PPP) [Relative time] 2.6 {INR} [facility] Comment on above: INR Therapeutic Rang e [...] 10-25-2021 Platelets (Bld) [#/Vol] 226 10*3/uL 150-450 [facility] Protein [Mass/volume] in Ser um or PlasmaOrdered By: Myron Villarreal on 10-25-2021 Protein [Mass/Vol] 7.8 g/dL 6.1-7.9 [facility] RBC Auto (Bld) [#/Vol]Ordere d By: Myron Villarreal on 10-25-2021 RBC (Bld) [#/Vol] 4.93 10*6/uL 3.60-5.00 [facility] Serum or plasma alanine owusu otransferase measurement without P-5'-P (enzymatic activiOrdered By: Myron Villarreal on 10-25-2021 ALT No additional P-5'-P [Catalytic activity/Vol] 19 U/L 10-60 [facility] Serum or plasma albumin/glob ulin mass ratioOrdered By: Myron Villarreal on 10-25-2021 Albumin/Globulin [Mass ratio] 1.1 {ratio} [facility] Serum or plasma alkaline dulce maria sphatase measurement (enzymatic activity/volume)Ordered By: Myron Villarreal on 10-25-2021 ALP [Catalytic activity/Vol] 69 U/L 32-92 [facility] Serum or plasma aspartate am inotransferase measurement (enzymatic activity/volume)Ordered By: Myron Villarreal on 10-25-2021 AST [Catalytic activity/Vol] 28 U/L 10-42 [facility] Serum or plasma calcium silva urement (mass/volume)Ordered By: Myron Villarreal on 10-25-2021 Calcium [Mass/Vol] 10.0 mg/dL 8.2-10.2 [facility] Serum or plasma chloride hector surement (moles/volume)Ordered By: Myron Villarreal on 10-25-2021 Chloride [Moles/Vol] 96 mmol/L 95-114 [facility] Serum or plasma creatine kin ase MB (CKMB)/total creatine kinase (CK) ratio by calculaOrdered By: Myron Villarreal on 10-25-2021 CK.MB Calc [Catalytic fraction] 3.9 % 0.00-2.50 [facility] Serum or plasma creatine kin ase MB measurement (mass/volume)Ordered By: Myron Villarreal on 10-25-2021 CK.MB [Mass/Vol] 2.5 ng/mL 0.6-6.3 [facility] Serum or plasma glucose silva urement (mass/volume)Ordered By: Myron Villarreal on 10-25-2021 Glucose [Mass/Vol] 120 mg/dL 70-100 [facility] Comment on above: ADA recommended refe [...] on 10-25-2021 Potassium [Moles/Vol] 4.3 mmol/L 3.5-5.1 [facility] Serum or plasma sodium measu rement (moles/volume)Ordered By: Myron Villarreal on 10-25-2021 Sodium [Moles/Vol] 134 mmol/L 136-146 [facility] Serum or plasma total biliru bin measurement (mass/volume)Ordered By: Myron Villarreal on 10-25-2021 Bilirubin [Mass/Vol] 0.7 mg/dL 0.3-1.2 [facility] Serum or plasma total carbon dioxide measurement (moles/volume)Ordered By: Myron Villarreal on 10-25-2021 CO2 [Moles/Vol] 24.8 mmol/L 22.0-30.0 [facility] Serum or plasma urea nitroge n measurement (mass/volume)Ordered By: Myron Villarreal on 10-25-2021 Urea nitrogen [Mass/Vol] 19 mg/dL 9-23 [facility] Troponin I.cardiac [Mass/vol ume] in Serum or Plasma by High sensitivity methodOrdered By: Myron Villarreal on 10-25-2021 Troponin I.cardiac High sensitivity method [Mass/Vol] 16 pg/mL 0 [facility] Urine culture routineOrdered By: Daily Hart on 10-23-2021 Bacteria identified Cx Nom (U) Enterococcus faecalis [facility] Albumin [Mass/volume] in Ser um or PlasmaOrdered By: Daily Hart on 10-21-2021 Albumin [Mass/Vol] 4.2 g/dL 3.2-5.5 [facility] Automated erythrocytes count in urine sediment (number/area)Ordered By: Daily Hart on 10-21-2021 RBC Auto (Urine sed) [#/Area] 0-1 [HPF] 0-4 [facility] Automated leukocytes count i n urine sediment (number/area)Ordered By: Daily Hart on 10-21-2021 WBC Auto (Urine sed) [#/Area] 50-100 [HPF] 0-4 [facility] Basophils Auto (Bld) [#/Vol] Ordered By: Daily Hart on 10-21-2021 Basophils (Bld) [#/Vol] 0.1 10*3/uL 0.0-0.2 [facility] Basophils/100 WBC Auto (Bld) Ordered By: Daily Hart on 10-21-2021 Basophils/100 WBC (Bld) 1.0 % . [facility] Bilirubin Test strip Ql (U)O rdered By: Daily Hart on 10-21-2021 Bilirubin Ql (U) Negative Negative [facility] Blood hemoglobin measurement (mass/volume)Ordered By: Daily Hart on 10-21-2021 Hemoglobin (Bld) [Mass/Vol] 16.0 g/dL 11.8-15.4 [facility] Blood leukocytes automated c ount (number/volume)Ordered By: Daily Hart on 10-21-2021 WBC (Bld) [#/Vol] 6.8 10*3/uL 4.5-11.0 [facility] Color Auto (U)Ordered By: Gi arian Hart on 10-21-2021 Color (U) Yellow Yellow [facility] Creatinine and Glomerular fi ltration rate.predicted panel (S/P/Bld)Ordered By: Daily Hart on 10-21-2021 Creatinine [Mass/Vol] 0.96 mg/dL 0.44-1.03 [facility] Digoxin [Mass/volume] in Ser um or PlasmaOrdered By: Daily Sharmaimore on 10-21-2021 Digoxin [Mass/Vol] 0.6 ng/mL 0.9-2.0 [facility] Comment on above: Last dose: - Eosinophils Auto (Bld) [#/Vo l]Ordered By: Daily Choiore on 10-21-2021 Eosinophils (Bld) [#/Vol] 0.0 10*3/uL 0.0-0.45 [facility] Eosinophils/100 WBC Auto (Bl d)Ordered By: Daily Choiore on 10-21-2021 Eosinophils/100 WBC (Bld) 0.7 % . [facility] Erythrocyte distribution wid th Auto (RBC) [Ratio]Ordered By: Daily Hart on 10-21-2021 Erythrocyte distribution width (RBC) [Ratio] 13.0 % 11.9-15.3 [facility] Estimated glomerular filtrat ion rate (GFR) non- AmericanOrdered By: Daily Hart on 10-21-2021 GFR/1.73 sq M.predicted among non-blacks MDRD (S/P/Bld) [Vol rate/Area] 55 mL/Min [facility] Globulin Calc (S) [Mass/Vol] Ordered By: Daily Hart on 10-21-2021 Globulin (S) [Mass/Vol] 3.9 g/dL [facility] Hematocrit Auto (Bld) [Volum e fraction]Ordered By: Daily Choiore on 10-21-2021 Hematocrit (Bld) [Volume fraction] 47.9 % 34.0-46.4 [facility] Ketones Auto test strip (U) [Mass/Vol]Ordered By: Daily Hart on 10-21-2021 Ketones (U) [Mass/Vol] Negative Negative [facility] - Chemistry and C hemistry - challengeOrdered By: Daily Hart on 10-21-2021 Natriuretic peptide B (Bld) [Mass/Vol] 76.0 pg/mL 5-100 [facility] Laboratory - Hematology and Cell countsOrdered By: Daily Choiore on 10-21-2021 Nucleated RBC/100 WBC (Bld) [Ratio] 0.0 % 0-0.5 [facility] Laboratory - UrinalysisOrder ed By: Daily Hart on 10-21-2021 Hyaline casts LM Ql (Urine sed) 0-8 [LPF] 0-8 [facility] Lymphocytes Auto (Bld) [#/Vo l]Ordered By: Daily Sharmaimore on 10-21-2021 Lymphocytes (Bld) [#/Vol] 1.6 10*3/uL 1.00-4.8 [facility] Lymphocytes/100 WBC Auto (Bl d)Ordered By: Daily Hart on 10-21-2021 Lymphocytes/100 WBC (Bld) 23.4 % . [facility] MCH Auto (RBC) [Entitic mass ]Ordered By: Daily Hart on 10-21-2021 MCH (RBC) [Entitic mass] 32.3 pg 24.7-34.3 [facility] MCHC Auto (RBC) [Mass/Vol]Or dered By: Daily Sharmaimore on 10-21-2021 MCHC (RBC) [Mass/Vol] 33.4 g/dL 32.0-35.0 [facility] MCV Auto (RBC) [Entitic vol] Ordered By: Daily Sharmaimore on 10-21-2021 MCV (RBC) [Entitic vol] 96.8 fL 80-100 [facility] Monocytes Auto (Bld) [#/Vol] Ordered By: Daily Sharmaimore on 10-21-2021 Monocytes (Bld) [#/Vol] 0.5 10*3/uL 0.0-0.8 [facility] Monocytes/100 WBC Auto (Bld) Ordered By: Daliy Sharmaimore on 10-21-2021 Monocytes/100 WBC (Bld) 7.5 % . [facility] Neutrophils Auto (Bld) [#/Vo l]Ordered By: Daily Sharmaimore on 10-21-2021 Neutrophils (Bld) [#/Vol] 4.6 10*3/uL 1.8-7.7 [facility] Neutrophils/100 WBC Auto (Bl d)Ordered By: Daily Sharmaimore on 10-21-2021 Neutrophils/100 WBC (Bld) 67.4 % . [facility] Nitrite Test strip Ql (U)Ord ered By: Daily Choiore on 10-21-2021 Nitrite Ql (U) Negative Negative [facility] No Panel InformationOrdered By: Dailystanislav Hart on 10-21-2021 Estimated GFR () > 60 mL/Min [facility] Comment on above: GFR estimated refere nce range: According to KDOQI guidelines, <60 ml/min/1.73m2 is sufficient to diagnose a patient with chronic kidney disease. Pharmacy Creatinine Clearance (Chem 41.83 [facility] Platelet mean volume Auto (B ld) [Entitic vol]Ordered By: Daily Sharmaimore on 10-21-2021 Platelet mean volume (Bld) [Entitic vol] 8.7 fL 6.3-10.7 [facility] Platelets Auto (Bld) [#/Vol] Ordered By: Daily Sharmaimore on 10-21-2021 Platelets (Bld) [#/Vol] 230 10*3/uL 150-450 [facility] Protein Auto test strip (U) [Mass/Vol]Ordered By: Daily Choiore on 10-21-2021 Protein (U) [Mass/Vol] Negative Negative [facility] Protein [Mass/volume] in Ser um or PlasmaOrdered By: Daily Sharmaimore on 10-21-2021 Protein [Mass/Vol] 8.1 g/dL 6.1-7.9 [facility] RBC Auto (Bld) [#/Vol]Ordere d By: Daily Bullimore on 10-21-2021 RBC (Bld) [#/Vol] 4.95 10*6/uL 3.60-5.00 [facility] Serum or plasma alanine owusu otransferase measurement without P-5'-P (enzymatic activiOrdered By: Daily Hart on 10-21-2021 ALT No additional P-5'-P [Catalytic activity/Vol] 19 U/L 10-60 [facility] Serum or plasma albumin/glob ulin mass ratioOrdered By: Daily Hart on 10-21-2021 Albumin/Globulin [Mass ratio] 1.1 {ratio} [facility] Serum or plasma alkaline dulce maria sphatase measurement (enzymatic activity/volume)Ordered By: Daily Hart on 10-21-2021 ALP [Catalytic activity/Vol] 76 U/L 32-92 [facility] Serum or plasma aspartate am inotransferase measurement (enzymatic activity/volume)Ordered By: Daily Hart on 10-21-2021 AST [Catalytic activity/Vol] 27 U/L 10-42 [facility] Serum or plasma calcium silva urement (mass/volume)Ordered By: Daily Hart on 10-21-2021 Calcium [Mass/Vol] 9.6 mg/dL 8.2-10.2 [facility] Serum or plasma chloride hector surement (moles/volume)Ordered By: Daily Hart on 10-21-2021 Chloride [Moles/Vol] 98 mmol/L 95-114 [facility] Serum or plasma glucose silva urement (mass/volume)Ordered By: Daily Hart on 10-21-2021 Glucose [Mass/Vol] 120 mg/dL 70-100 [facility] Comment on above: ADA recommended refe [...] on 10-21-2021 Potassium [Moles/Vol] 3.9 mmol/L 3.5-5.1 [facility] Serum or plasma sodium measu rement (moles/volume)Ordered By: Daily Hart on 10-21-2021 Sodium [Moles/Vol] 138 mmol/L 136-146 [facility] Serum or plasma total biliru bin measurement (mass/volume)Ordered By: Daily Hart on 10-21-2021 Bilirubin [Mass/Vol] 0.6 mg/dL 0.3-1.2 [facility] Serum or plasma total carbon dioxide measurement (moles/volume)Ordered By: Daily Hart on 10-21-2021 CO2 [Moles/Vol] 29.8 mmol/L 22.0-30.0 [facility] Serum or plasma urea nitroge n measurement (mass/volume)Ordered By: Daily Hrat on 10-21-2021 Urea nitrogen [Mass/Vol] 22 mg/dL 9-23 [facility] Specific gravity Auto test s trip (U) [Rel density]Ordered By: Daily Hart on 10-21-2021 Specific gravity (U) [Rel density] 1.006 1.001-1.03 0 [facility] Squamous epithelial cells de tection in urine sediment by light microscopyOrdered By: Daily Hart on 10-21-2021 Epithelial cells.squamous LM Ql (Urine sed) None seen [HPF] 0-2 [facility] Troponin I.cardiac [Mass/vol ume] in Serum or Plasma by High sensitivity methodOrdered By: Daily Hart on 10-21-2021 Troponin I.cardiac High sensitivity method [Mass/Vol] 16 pg/mL 0-15 [facility] Urine bacteria detection by automated methodOrdered By: Daily Hart on 10-21-2021 Bacteria Auto Ql (U) None seen None Seen [facility] Urine clarity by refractomet ry automatedOrdered By: Daily Hart on 10-21-2021 Clarity Refractometry automated (U) Clear Clear [facility] Urine glucose measurement by automated test strip (mass/volume)Ordered By: Daily Hart on 10-21-2021 Glucose Auto test strip (U) [Mass/Vol] Normal mg/dL Normal [facility] Urine hemoglobin detection b y automated test stripOrdered By: Daily Hart on 10-21-2021 Hemoglobin Auto test strip Ql (U) Negative Negative [facility] Urine leukocyte esterase det ection by automated test stripOrdered By: Daily Hart on 10-21-2021 Leukocyte esterase Auto test strip Ql (U) 4+ Negative [facility] Urobilinogen Auto test strip (U) [Mass/Vol]Ordered By: Daily Hart on 10-21-2021 Urobilinogen (U) [Mass/Vol] Normal mg/dL Normal [facility] pH Auto test strip (U)Ordere d By: Daily Hart on 10-21-2021 pH (U) 5.5 [pH] 5.0-9.0 [facility] Covid-19 PCR (CVDTB)on 10-07 SARS-CoV-2 (COVID-19) RNA CIERA+probe Ql (Unsp spec) Not detected Normal NOT DETECTED [facility] Comment on above: Result Comment: This test is not yet approved or cleared by the [place] FDA. When there are no FDA-approved or cleared tests available, and other criteria are met, FDA can make tests available under an emergency access mechanism called an Emergency Use Authorization (EUA). The EUA for this test is supported by the [employer] of Health and Human Service's (HHS's) declaration [...] SARS-CoV-2. Performed By: #### C VDTBH #### [facility] [address] [place], [place] [address] Dr. Parth Wilson INFLUENZA A AND B AGon 10-20 INFLUENZA A AG Negative Normal NEGATIVE SEE COMMENT [facility] Comment on above: Performed By: #### I NFLUAB #### [facility] [address] [place] [address] Dr. Parth Wilson INFLUENZA B AG Negative Normal NEGATIVE SEE COMMENT [facility] Comment on above: Performed By: #### I NFLUAB #### [facility] [address] [place] [address] [address] Parth Wilson INTERNAL CONTROLS Within Normal Limits Normal Wi thin Normal Limits [facility] Comment on above: Performed By: #### I NFLUAB #### [facility] [address] [address] [address] Parth Wilson Cardiovasc Arrhythmia Result son 09-28-2021 Cardiovasc Arrhythmia Results Reason For Visit Event Monitor: ERIN is here for the application of a 30 day event monitor in office., Diagnosis: syncope and palps Ordering Physician: Dr. Olivarez [facility] number [id number] applied. Patient will be returning SEFERINO by [...] were associated with sinus rhythm. Future Appointments Date/TimeProviderSpecialtyS ite 11/28/2021 08:[address] [facility] [address] DO Signatures Electronically signed by : Akhil Olivarez MD; Oct 26 2021 10:03AM EST (Author) Normal [facility]works Office Visit (Cardiology)on 09-21-2021 Follow-up visit Diagnoses/Problems [...] Patient Instructions By signing my name below, IAdrianne LPN. ,Scribe, attest that this documentation has [...] TABLET DAILY DIRECTED. Managed at [facility]. Allergies Medication Motrin TABS Allergy; Hives;; [...] negative for complaint. Vitals Vital Signs Recorded: [id number] 02:43PM Heart Rate66, Apical Uyrphqze393, RUE, Sitting Rechltqqq97, RUE, Sitting Height5 ft 2 in Pugpyc405 lb BMI Oxsizzlyng00.84 kg/m2 BSA Calculated1.85 Tobacco Useb) No PHQ-2 #1. Over the last 2 weeks have you felt down, depressed or hopeless? (If yes, answer PHQ-9 below)No PHQ-2 #2. Over the last 2 weeks have you felt little interest or pleasure in doing things? (If yes, answer PHQ-9 below)No Fall Screeningb) One or more fall (more content not included)... Normal [employer] Tobacco Screening.on 022 Adult depression screening assessment No [facility] [employer] DO Work Phone: Fall risk assessment b) One or more fall s in the last year [facility] [employer] 250 DO Work Phone: Tobacco use status CPHS b) No [facility] 250 DO Work Phone: [phone] No Panel Informationon 06-30 9.2\S\9.2 Normal 8.2-10.2 [facility] [employer] 600 DO Work Phone: [phone] 28.3\S\28.3 Normal 22.0-30.0 [facility] [employer] 600 DO Work Phone: [phone] 99\S\99 Normal 95-114 [facility] [employer] 600 DO Work Phone: [phone] 4.6\S\4.6 Normal 3.5-5.1 [facility] [employer] 600 DO Work Phone: [phone] 138\S\138 Normal 136-146 [facility] [employer] 600 DO Work Phone: [phone] > 60 Normal [facility] [employer] 600 DO Work Phone: [phone] Comment on above: GFR estimated refere nce range: According to KDOQI guidelines, <60 ml/min/1.73m2 is sufficient to diagnose a patient with chronic kidney disease. 52\S\52 Normal [facility] [employer] nayan 600 DO Work Phone: 1.00\S\1.00 Normal 0.44-1.03 [facility] [employer] nayan 600 DO Work Phone: 22\S\22 Normal 9-23 [facility] [employer] nayan 600 DO Work Phone: 91\S\91 Normal 70-100 [employer] nayan 600 DO Work Phone: Comment on above: Random Glucose Refer ence Range is dependent on time and content of last meal. Glucose of more than 200 mg/dL in a nonstressed, ambulatory subject supports the diagnosis of Diabetes Mellitus. ADA recommended reference range 24\S\24 Normal 10-42 [facility] n[facility] 600 DO Work Phone: 2.98\S\2.98 Normal 0.45-5.33 [employer] nayan Menard DO Work Phone: Comment on above: PERFORMED BY:[facility] [place], [place] [address]InocencioPERR[place]TON, [place] [phone] MEDICAL DIRECTORGIULIA VALERIO M.D. Radiologyon 06-30-2021 XR Chest 2 Views Normal [employer] nayan 600 DO Work Phone: Tobacco Screening.on 022 Tobacco use status CPHS b) No [facility] 250 DO Work Phone: Affirm DNA Panelon 7 Albina DNA Negative Normal Negative [facility] Comment on above: Result Comment: [...] organism are common. Performed By: #### C [id number] ####[address] [address] Gardnerella DNA Positive Abnormal Negative [facility] Comment on above: Performed By: #### C [id number] ####[id number] [place] [address] Trichomonas DNA Negative Normal Negative [facility] Comment on above: Performed By: #### C [id number] ####[address] [address] Ambulatory Patient Education on 12-22-2016 Ambulatory Patient Education Patient Education MaterialsName: Jesenia Canales Current Date: 12/22/2016 14:33:40 Meghann/New_TobyhannaDOB: 1935 following sheet(s) are the Patient Education [...] pelvic organ or organs occurring again? [employer]. [address] [place] [address]. All rights reserved. This information is not [...] pelvic organ or organs occurring again? [employer]. [address] [place] [address], [place] [address]. All rights reserved. This information is not [...] you'll meet with the anesthesiologist or nurse director clinical applications. He or she can tell you what [...] nearby pelvic structures? Trouble urinating? Urinary urgency? [id number] [employer] [place] [address]. All rights reserved. This information is not intended as a substitute for professional medical care. Always follow your healthcare professional's instructions. Normal [facility] Gynecology Office/Clinic Not larry 12-22-2016 Gynecology Office/Clinic Note Chief Complaint ConsultationHistory of Present Illness Abnormal vaginal discharge: Yes Pelvic pain: No Spotting: No Vaginal itch/burning/odor: Yes Additional HPI details: 81y/o prolapse. Pt has a pessary. States causes infection. She sees PAEDIATRIC THORACIC PHYSICIAN q 1 months. She want to only [...] Additional Vitals Body Mass Index Measured: 35.59 kg/o6Zrtckyvttf/Plan Cystocele Ordered: [id number] [facility] OFFICE OP VISIT NEW LVL 2 Clinic Rectocele Uterine prolapse Attempting a cube pessary - will call Ashely Villarreal [employer] EXCH[employer] ARCHITECT and see if she can followup with her in 1 wk - have given the patient info on surgery. Patient is very leery regarding surgery due to the anesthesia and she does have cardiac issues - multiple stents Ordered: [id number] [facility] OFFICE OP VISIT NEW LVL 2 Clinic [...] capsule, 1000 mg, 1 caps, Oral, BID lisinopril-hydrochlorothiaz rizwana 10mg-12.5mg oral tablet, 1 tabs, Oral, Daily [...] Father. Skin cancer: Mother.Electronically signed by Justin Melendez DO 12/22/16 17:35 EDT Normal [facility] Vital Signs Date Time Vital Sign Value Performing Clinician Facility 09-21-2023 08:24-0400 Body height 157.48 cm MD Los Chaudhary Work Phone: [facility] 09-21-2023 08:24-0400 Body weight 88.45 kg MD Los Chaudhary Work Phone: [facility] 09-10-2023 10:17-0400 Body height 157.5 cm Akhil Olivarez MD Work Phone: [facility] 09-10-2023 10:17-0400 Body mass index (BMI) [Ratio] 37.31 kg/m2 Akhil Olivarez MD Work Phone: [facility] 09-10-2023 10:17-040 Body weight 92.53 kg Akhil Olivarez MD Work Phone: [facility] 09-10-2023 10:17-0400 Diastolic blood pressure 68 mm[Hg] Akhil Olivarez MD Work Phone: [facility] 09-10-2023 10:17-040 Heart rate 93 /min Akhil Olivarez MD Work Phone: [facility] 09-10-2023 10:17-040 Systolic blood pressure 108 mm[Hg] Akhil Olivarez MD Work Phone: [facility] 07-31-2023 21:15-0400 Diastolic blood pressure 80 mm[Hg] MD Los Chaudhary Work Phone: [facility] 07-31-2023 21:15-0400 Heart rate 94 /min MD Los Chaudhary Work Phone: [facility] 07-31-2023 21:15-0400 Respiratory rate 20 /min MD Los Chaudhary Work Phone: [facility] 07-31-2023 21:15-0400 SaO2% (BldA) [Mass fraction] 97 % MD Los Chaudhary Work Phone: [facility] 07-31-2023 21:15-0400 Systolic blood pressure 136 mm[Hg] MD Los Chaudhary Work Phone: [facility] 07-31-2023 18:10-0400 Body temperature 98.6 [degF] MD Los Chaudhary Work Phone: [facility] 07-31-2023 15:08-0400 Body height 157.48 cm MD Los Chaudhary Work Phone: [facility] 07-31-2023 15:08-0400 Body weight 77.11 kg MD Los Chaudhary Work Phone: [facility] 07-13-2023 09:53-0400 Body height 157.48 cm MD Los Chaudhary Work Phone: [facility] 07-13-2023 09:53-0400 Body temperature 97.9 [degF] MD Los Chaudhary Work Phone: [facility] 07-13-2023 09:53-0400 Body weight 77.11 kg MD Los Chaudhary Work Phone: [facility] 07-13-2023 09:53-0400 Diastolic blood pressure 62 mm[Hg] MD Los Chaudhary Work Phone: [facility] 07-13-2023 09:53-0400 Heart rate 103 /min MD Los Chaudhary Work Phone: [facility] 07-13-2023 09:53-0400 Respiratory rate 16 /min MD Los Chaudhary Work Phone: [facility] 07-13-2023 09:53-0400 SaO2% (BldA) [Mass fraction] 98 % MD Los Chaudhary Work Phone: [facility] 07-13-2023 09:53-0400 Systolic blood pressure 103 mm[Hg] MD Los Chaudhary Work Phone: [facility] 07-12-2023 16:25-0400 Body height 127 cm MD Los Chaudhary Work Phone: [facility] 07-12-2023 16:25-0400 Body mass index (BMI) [Ratio] 50.4 kg/m2 MD Los Chaudhary Work Phone: [facility] 07-12-2023 16:25-0400 Body temperature 98.2 [degF] MD Los Chaudhary Work Phone: [facility] 07-12-2023 16:25-0400 Body weight 81.3 kg MD Los Chaudhary Work Phone: [facility] 07-12-2023 16:25-0400 Diastolic blood pressure 89 mm[Hg] MD Los Chaudhary Work Phone: [facility] 07-12-2023 16:25-0400 Heart rate 112 /min MD Los hCaudhary Work Phone: [facility] 07-12-2023 16:25-0400 Respiratory rate 16 /min MD Los Chaudhary Work Phone: [facility] 07-12-2023 16:25-0400 SaO2% (BldA) [Mass fraction] 99 % MD Los Chaudhary Work Phone: [facility] 07-12-2023 16:25-0400 Systolic blood pressure 140 mm[Hg] MD Los Chaudhary Work Phone: [facility] 02-26-2023 13:03-0500 Body height 157.5 cm Mickey James INSURANCE COUNSEL-INSTRUCTOR BRIDGE Work Phone: [facility] 02-26-2023 13:03-0500 Body mass index (BMI) [Ratio] 33.11 kg/m2 Mickey James INSURANCE COUNSEL-INSTRUCTOR BRIDGE Work Phone: [facility] 02-26-2023 13:03-0500 Body weight 82.1 kg Mickey James INSURANCE COUNSEL-INSTRUCTOR BRIDGE Work Phone: [facility] 02-26-2023 13:03-0500 Diastolic blood pressure 74 mm[Hg] Mickey James INSURANCE COUNSEL-INSTRUCTOR BRIDGE Work Phone: [facility] 02-26-2023 13:03-0500 Heart rate 60 /min Mickey James INSURANCE COUNSEL-INSTRUCTOR BRIDGE Work Phone: [facility] 02-26-2023 13:03-0500 Systolic blood pressure 138 mm[Hg] Mickey James INSURANCE COUNSEL-INSTRUCTOR BRIDGE Work Phone: [facility] 12-13-2022 10:03-0400 Body temperature 97.11 [degF] Shweta Sol MD Work Phone: [facility] 12-13-2022 10:03-0400 Diastolic blood pressure 65 mm[Hg] Shweta Sol MD Work Phone: [facility] 12-13-2022 10:03-0400 Heart rate 60 /min Shweta Sol MD Work Phone: [facility] 12-13-2022 10:03-0400 Systolic blood pressure 165 mm[Hg] Swheta Sol MD Work Phone: [facility] 11-29-2022 14:52-0400 Body height 157.48 cm Los Chaudhary Work Phone: [facility] 250 DO Work Phone: 11-29-2022 14:52-0400 Body mass index (BMI) [Ratio] Medical Reason Not Done Los M Hoy Work Phone: [facility] 250 DO Work Phone: 11-29-2022 14:52-0400 Body temperature 97.7 [degF] Los Duran Hoy Work Phone: [facility] 250 DO Work Phone: 11-29-2022 14:52-0400 Diastolic blood pressure 84 mm[Hg] Los Duran Hoy Work Phone: [facility] 250 DO Work Phone: 11-29-2022 14:52-0400 Heart rate 66 /min Los Duran Hoy Work Phone: [facility] 250 DO Work Phone: 11-29-2022 14:52-0400 Systolic blood pressure 130 mm[Hg] Los Roger Hoy Work Phone: [facility] 250 DO Work Phone: 11-24-2022 16:00-0400 Body temperature 97.8 [degF] MD Los Chaudhary Work Phone: [facility] 11-24-2022 16:00-0400 Diastolic blood pressure 73 mm[Hg] MD Los Chaudhary Work Phone: [facility] 11-24-2022 16:00-0400 Heart rate 60 /min MD Los Chaudhary Work Phone: [facility] 11-24-2022 16:00-0400 Respiratory rate 16 /min MD Los Chaudhary Work Phone: [facility] 11-24-2022 16:00-0400 SaO2% (BldA) [Mass fraction] 99 % MD Los Chaudhary Work Phone: [facility] 11-24-2022 16:00-0400 Systolic blood pressure 142 mm[Hg] MD Los Chaudhary Work Phone: [facility] 11-24-2022 06:44-0400 Body weight 88.4 kg MD Los Chaudhary Work Phone: [facility] 11-22-2022 11:41-0400 Inhaled oxygen flow rate 6 L/min MD Los Chaudhary Work Phone: [facility] 11-22-2022 10:22-0400 Body height 157.48 cm MD Los Chaudhary Work Phone: [facility] 11-22-2022 10:22-0400 Body mass index (BMI) [Ratio] 36.5 kg/m2 MD Los Chaudhary Work Phone: [facility] 11-17-2022 21:59-0400 Diastolic blood pressure 77 mm[Hg] MD Los Chaudhary Work Phone: [facility] 11-17-2022 21:59-0400 Heart rate 67 /min MD Los Chaudhary Work Phone: [facility] 11-17-2022 21:59-0400 Systolic blood pressure 190 mm[Hg] MD Los Chaudhary Work Phone: [facility] 11-17-2022 21:18-0400 Body temperature 97.7 [degF] MD Los Chaudhary Work Phone: [facility] 11-17-2022 21:18-0400 Respiratory rate 16 /min MD Los Chaudhary Work Phone: [facility] 11-17-2022 21:18-0400 SaO2% (BldA) [Mass fraction] 98 % MD Los Chaudhary Work Phone: [facility] 11-17-2022 18:03-0400 Body height 157.48 cm MD Los Chaudhary Work Phone: [facility] 11-17-2022 18:03-0400 Body weight 81.64 kg MD Los Chaudhary Work Phone: [facility] 10-30-2022 11:29-0400 Body height 157.48 cm Los M Hoy Work Phone: [facility] 600 DO Work Phone: 10-30-2022 11:29-0400 Body mass index (BMI) [Ratio] 34.57 kg/m2 Los Duran Hoy Work Phone: [facility] 600 DO Work Phone: 10-30-2022 11:29-0400 Body surface area Derived from formula 1.87 m2 Los Duran Hoy Work Phone: [facility] 600 DO Work Phone: 10-30-2022 11:29-0400 Body weight 85.73 kg Los Duran Hoy Work Phone: [facility] 600 DO Work Phone: 10-30-2022 11:29-0400 Diastolic blood pressure 68 mm[Hg] Los Duran Hoy Work Phone: [facility] 600 DO Work Phone: 10-30-2022 11:29-0400 Heart rate 60 /min Los Duran Hoy Work Phone: [facility] 600 DO Work Phone: 10-30-2022 11:29-0400 Systolic blood pressure 170 mm[Hg] Los Duran Hoy Work Phone: [facility] 600 DO Work Phone: 09-25-2022 18:30-0400 Diastolic blood pressure 82 mm[Hg] [employer] ARCHIT[employer]-C Summer Yaw Work Phone: [facility] 09-25-2022 18:30-0400 Heart rate 57 /min [employer] ARCHITECT-C Summer Yaw Work Phone: [facility] 09-25-2022 18:30-0400 Respiratory rate 17 /min [employer] ARCHITECT-C Summer Yaw Work Phone: [facility] 09-25-2022 18:30-0400 SaO2% (BldA) [Mass fraction] 99 % [employer] ARCHITECT-C Summer Tidwell Work Phone: [facility] 09-25-2022 18:30-0400 Systolic blood pressure 132 mm[Hg] [employer] ARCHITECT-C Summer Tidwell Work Phone: [facility] 09-25-2022 13:00-0400 Body temperature 98 [degF] [employer] ARCHITECT-C Summer Tidwell Work Phone: [facility] 09-25-2022 08:58-0400 Body height 157.48 cm [employer] ARCHITECT-C Summer Tidwell Work Phone: [facility] 09-25-2022 08:58-0400 Body weight 84 kg [employer] ARCHITECT-C Summer Tidwell Work Phone: [facility] 09-21-2022 14:11-0400 Body height 157.48 cm Los Roger Hoy Work Phone: [facility] 250 DO Work Phone: 09-21-2022 14:11-0400 Body mass index (BMI) [Ratio] 34.02 kg/m2 Los M Hoy Work Phone: [facility] 250 DO Work Phone: 09-21-2022 14:11-0400 Body surface area Derived from formula 1.85 m2 Los M Hoy Work Phone: [facility] 250 DO Work Phone: 09-21-2022 14:11-0400 Body weight 84.37 kg Los M Hoy Work Phone: [facility] 250 DO Work Phone: 09-21-2022 14:11-0400 Diastolic blood pressure 68 mm[Hg] Los M Hoy Work Phone: [facility] 250 DO Work Phone: 09-21-2022 14:11-0400 Heart rate 56 /min Los Roger Hoy Work Phone: [facility] 250 DO Work Phone: 09-21-2022 14:11-0400 Systolic blood pressure 146 mm[Hg] Los Roger Hoy Work Phone: [facility] 250 DO Work Phone: 09-01-2022 14:07-0400 Body height 157.48 cm Los Roger Hoy Work Phone: [facility] 250 DO Work Phone: 09-01-2022 14:07-0400 Body mass index (BMI) [Ratio] 32.74 kg/m2 Los Roger Hoy Work Phone: [facility] 250 DO Work Phone: 09-01-2022 14:07-0400 Body surface area Derived from formula 1.82 m2 Los Roger Hoy Work Phone: [facility] 250 DO Work Phone: 09-01-2022 14:07-0400 Body weight 81.19 kg Los Duran Hoy Work Phone: [facility] 250 DO Work Phone: 09-01-2022 14:07-0400 Diastolic blood pressure 60 mm[Hg] Los Roger Hoy Work Phone: [facility] 250 DO Work Phone: 09-01-2022 14:07-0400 Heart rate 54 /min Los Roger Hoy Work Phone: [facility] 250 DO Work Phone: 09-01-2022 14:07-0400 Systolic blood pressure 150 mm[Hg] Los Roger Hoy Work Phone: [facility] 250 DO Work Phone: 08-02-2022 13:03-0400 Body height 157.48 cm Los M Hoy Work Phone: [facility] 250 DO Work Phone: 08-02-2022 13:03-0400 Body mass index (BMI) [Ratio] 33.47 kg/m2 Los M Hoy Work Phone: [facility] 250 DO Work Phone: 08-02-2022 13:03-0400 Body surface area Derived from formula 1.84 m2 Los M Hoy Work Phone: [facility] 250 DO Work Phone: 08-02-2022 13:03-0400 Body weight 83.01 kg Los M Hoy Work Phone: [facility] 250 DO Work Phone: 08-02-2022 13:03-0400 Diastolic blood pressure 58 mm[Hg] Los M Hoy Work Phone: [facility] 250 DO Work Phone: 08-02-2022 13:03-0400 Heart rate 56 /min Los M Hoy Work Phone: [facility] 250 DO Work Phone: 08-02-2022 13:03-0400 Systolic blood pressure 128 mm[Hg] Los M Hoy Work Phone: [facility] 250 DO Work Phone: 07-05-2022 09:29-0400 Body height 157.48 cm Los M Hoy Work Phone: [facility] 250 DO Work Phone: 07-05-2022 09:29-0400 Body mass index (BMI) [Ratio] 32.19 kg/m2 Los M Hoy Work Phone: [facility] 250 DO Work Phone: 07-05-2022 09:29-0400 Body surface area Derived from formula 1.81 m2 Los Duran Hoy Work Phone: [facility] 250 DO Work Phone: 07-05-2022 09:29-0400 Body weight 79.83 kg Los Duran Hoy Work Phone: [facility] 250 DO Work Phone: 07-05-2022 09:29-0400 Diastolic blood pressure 60 mm[Hg] Los Duran Hoy Work Phone: [facility] 250 DO Work Phone: 07-05-2022 09:29-0400 Heart rate 61 /min Los Duran Hoy Work Phone: [facility] 250 DO Work Phone: 07-05-2022 09:29-0400 Systolic blood pressure 142 mm[Hg] Los Duran Hoy Work Phone: [facility] 250 DO Work Phone: 02-07-2022 10:11-0400 Body height 157.48 cm Summer Garibaymer Work Phone: [facility] 250 DO Work Phone: 02-07-2022 10:11-0400 Body mass index (BMI) [Ratio] 33.84 kg/m2 Summer S Yaw Work Phone: [facility] 250 DO Work Phone: 02-07-2022 10:11-0400 Body surface area Derived from formula 1.85 m2 Summer S Yaw Work Phone: [facility] 250 DO Work Phone: 02-07-2022 10:11-0400 Body weight 83.92 kg Summer S Yaw Work Phone: [facility] 250 DO Work Phone: 02-07-2022 10:11-0400 Diastolic blood pressure 50 mm[Hg] Summer S Yaw Work Phone: [facility] 250 DO Work Phone: 02-07-2022 10:11-0400 Heart rate 62 /min Summer S Yaw Work Phone: [facility] 250 DO Work Phone: 02-07-2022 10:11-0400 Systolic blood pressure 104 mm[Hg] Summer S Yaw Work Phone: [facility] 250 DO Work Phone: 01-10-2022 20:30-0400 Diastolic blood pressure 63 mm[Hg] [employer] ARCHITECT-C Summer Yaw Work Phone: [facility] 01-10-2022 20:30-0400 Heart rate 69 /min [employer] ARCHITECT-C Summer Yaw Work Phone: [facility] 01-10-2022 20:30-0400 Respiratory rate 20 /min [employer] ARCHITECT-C Summer Yaw Work Phone: [facility] 01-10-2022 20:30-0400 SaO2% (BldA) [Mass fraction] 97 % [employer] ARCHITECT-C Summer Yaw Work Phone: [facility] 01-10-2022 20:30-0400 Systolic blood pressure 140 mm[Hg] [employer]CH[employer] ARCHITECT-C Summer Yaw Work Phone: [facility] 01-10-2022 14:51-0400 Body height 157.48 cm [employer] EXCHANGE ARCHITECT-C Summer Yaw Work Phone: [facility] 01-10-2022 14:51-0400 Body temperature 97.7 [degF] [employer] ARCHITECT-C Summer Yaw Work Phone: [facility] 01-10-2022 14:51-0400 Body weight 78.75 kg [employer] ARCHITECT-C Summer Garibaymer Work Phone: [facility] 11-28-2021 08:51-0400 Diastolic blood pressure 60 mm[Hg] Summer S Yaw Work Phone: [facility] 250 DO Work Phone: 11-28-2021 08:51-0400 Systolic blood pressure 152 mm[Hg] Summer S Yaw Work Phone: [facility] 250 DO Work Phone: 11-28-2021 08:22-0400 Body height 157.48 cm Summer S Yaw Work Phone: [facility] 250 DO Work Phone: 11-28-2021 08:22-0400 Body mass index (BMI) [Ratio] 31.64 kg/m2 Summer S Yaw Work Phone: [facility] 250 DO Work Phone: 11-28-2021 08:22-0400 Body surface area Derived from formula 1.8 m2 Summer S Yaw Work Phone: [facility] DO Work Phone: 11-28-2021 08:22-0400 Body weight 78.47 kg Summer Al Yaw Work Phone: [facility] 250 DO Work Phone: 11-28-2021 08:22-0400 Diastolic blood pressure 78 mm[Hg] Summer S Yaw Work Phone: [facility] 250 DO Work Phone: 11-28-2021 08:22-0400 Heart rate 72 /min Summer S Yaw Work Phone: [facility] 250 DO Work Phone: 11-28-2021 08:22-0400 Systolic blood pressure 152 mm[Hg] Summer S Yaw Work Phone: [facility] 250 DO Work Phone: 10-29-2021 12:14-0400 Diastolic blood pressure 68 mm[Hg] [employer] EXCH[employer] ARCHITECT-C Summer Yaw Work Phone: [facility] 10-29-2021 12:14-0400 Heart rate 66 /min [employer] ARCHITECT-C Summer Yaw Work Phone: [facility] 10-29-2021 12:14-0400 Respiratory rate 18 /min [employer] ARCHITECT-C Summer Yaw Work Phone: [facility] 10-29-2021 12:14-0400 SaO2% (BldA) [Mass fraction] 96 % [employer] ARCHITECT-C Summer Yaw Work Phone: [facility] 10-29-2021 12:14-0400 Systolic blood pressure 134 mm[Hg] [employer] EX[employer] ARCHITECT-C Summer Yaw Work Phone: [facility] 10-29-2021 03:21-0400 Body temperature 98 [degF] [employer] EX[employer] ARCHITECT-C Summer Yaw Work Phone: [facility] 10-28-2021 13:27-0400 0 1 Summer S Yaw Work Phone: [facility] 250 DO Work Phone: Comment on above: [id number] 10-28-2021 08:00-0400 Body height 157.48 cm [employer] EX[employer]ANGE ARCHITECT-C Summer Yaw Work Phone: [facility] 10-28-2021 08:00-0400 Body weight 124.2 kg [employer] EX[employer] ARCHITECT-C Summer Yaw Work Phone: [facility] 10-28-2021 05:55-0400 Diastolic blood pressure 65 mm[Hg] [employer] ARCHITECT-C Summer Yaw Work Phone: [facility] 10-28-2021 05:55-0400 Heart rate 61 /min [employer] ARCHITECT-C Summer Yaw Work Phone: [facility] 10-28-2021 05:55-0400 Respiratory rate 18 /min [employer] ARCHITECT-C Summer Yaw Work Phone: [facility] 10-28-2021 05:55-0400 SaO2% (BldA) [Mass fraction] 96 % [employer] ARCHITECT-C Summer Yaw Work Phone: [facility] 10-28-2021 05:55-0400 Systolic blood pressure 148 mm[Hg] [employer] EXCHANGE ARCHITECT-C Summer Yaw Work Phone: [facility] 10-28-2021 00:20-0400 Body height 157.48 cm [employer] EXCHANGE ARCHITECT-C Summer Yaw Work Phone: [facility] 10-28-2021 00:20-0400 Body temperature 98 [degF] [employer] EXCHANGE ARCHITECT-C Summer Yaw Work Phone: [facility] 10-28-2021 00:20-0400 Body weight 124.73 kg [employer] EXCHANGE ARCHITECT-C Summer Yaw Work Phone: [facility] 10-25-2021 14:50-0400 Diastolic blood pressure 72 mm[Hg] [employer] EX[employer] ARCHITECT-C Summer Yaw Work Phone: [facility] 10-25-2021 14:50-0400 Heart rate 60 /min [employer] EX[employer] ARCHITECT-C Summer Yaw Work Phone: [facility] 10-25-2021 14:50-0400 Respiratory rate 18 /min [employer] EX[employer] ARCHITECT-C Summer Yaw Work Phone: [facility] 10-25-2021 14:50-0400 SaO2% (BldA) [Mass fraction] 95 % [employer] ARCHITECT-C Summer Yaw Work Phone: [facility] 10-25-2021 14:50-0400 Systolic blood pressure 168 mm[Hg] [employer] EXCHANGE ARCHITECT-C Summer Yaw Work Phone: [facility] 10-21-2021 15:19-0400 Diastolic blood pressure 87 mm[Hg] [employer] EXCHANGE ARCHITECT-C Summer Tidwell Work Phone: [facility] 10-21-2021 15:19-0400 Heart rate 60 /min [employer] ARCHITECT-C Summer Garibaymer Work Phone: [facility] 10-21-2021 15:19-0400 Respiratory rate 18 /min [employer] EX[employer] ARCHITECT-C Summer Garibaymer Work Phone: [facility] 10-21-2021 15:19-0400 SaO2% (BldA) [Mass fraction] 98 % [employer] ARCHITECT-C Summer Tidwell Work Phone: [facility] 10-21-2021 15:19-0400 Systolic blood pressure 194 mm[Hg] [employer] EXCHANGE ARCHITECT-C Summer Garibaymer Work Phone: [facility] 10-21-2021 09:09-0400 Body height 157.48 cm [employer] EX[employer] ARCHITECT-C Summer Garibaymer Work Phone: [facility] 10-21-2021 09:09-0400 Body mass index (BMI) [Ratio] 34.4 kg/m2 [employer] ARCHITECT-C Summer Tidwell Work Phone: [facility] 10-21-2021 09:09-0400 Body weight 85.3 kg [employer] ARCHITECT-C Summer Tidwell Work Phone: [facility] 10-21-2021 09:08-0400 Body temperature 97.1 [degF] [employer] EX[employer] ARCHITECT-C Summer Tidwell Work Phone: [facility] 09-21-2021 14:43-0400 Body height 157.48 cm Summer Tidwell Work Phone: [facility] 250 DO Work Phone: 09-21-2021 14:43-0400 Body mass index (BMI) [Ratio] 33.84 kg/m2 Summer S Yaw Work Phone: [facility] 250 DO Work Phone: 09-21-2021 14:43-0400 Body surface area Derived from formula 1.85 m2 Summer Al Yaw Work Phone: [facility] 250 DO Work Phone: 09-21-2021 14:43-0400 Body weight 83.92 kg Summer Al Yaw Work Phone: [facility] [place] 250 DO Work Phone: 09-21-2021 14:43-0400 Diastolic blood pressure 62 mm[Hg] Summer Al Yaw Work Phone: [facility] [place] 250 DO Work Phone: 09-21-2021 14:43-0400 Heart rate 66 /min Summer Al Yaw Work Phone: [facility] [place] 250 DO Work Phone: 09-21-2021 14:43-0400 Systolic blood pressure 138 mm[Hg] Summer Al Yaw Work Phone: [facility] [place] 250 DO Work Phone: 04-15-2021 13:39-0500 Body height 157.48 cm Summer Al Yaw Work Phone: [facility] 250 DO Work Phone: 04-15-2021 13:39-0500 Body mass index (BMI) [Ratio] 32.74 kg/m2 Summer Al Yaw Work Phone: [facility] [place] 250 DO Work Phone: 04-15-2021 13:39-0500 Body surface area Derived from formula 1.82 m2 Summer Al Yaw Work Phone: [facility] [place] 250 DO Work Phone: 04-15-2021 13:39-0500 Body weight 81.19 kg Summer Al Yaw Work Phone: [facility] [place] 250 DO Work Phone: 04-15-2021 13:39-0500 Diastolic blood pressure 69 mm[Hg] Summer S Yaw Work Phone: [facility] [place] 250 DO Work Phone: 04-15-2021 13:39-0500 Heart rate 73 /min Summer S Yaw Work Phone: [facility] [place] 250 DO Work Phone: 04-15-2021 13:39-0500 Systolic blood pressure 129 mm[Hg] Summer S Yaw Work Phone: [facility] [place] 250 DO Work Phone: Encounters Encounter Date Encounter Type Care Provider Facility Start: 09-21-2023 End: 09-21-2023 Admission to same day surgery center MD Los Chaudhary Work Phone: [facility]-Procedure Outpatient Work Phone: Start: 09-21-2023 End: 09-21-2023 ambulatory MD Los Chaudhary Work Phone: [facility] Work Phone: Start: 09-10-2023 End: 09-10-2023 Patient encounter procedure MD Los Chaudhary Work Phone: [facility]-Lab [place] Work Phone: Start: 09-10-2023 End: 09-10-2023 ambulatory MD Los Chaudhary Work Phone: [facility] Work Phone: Start: 09-10-2023 End: 09-10-2023 Office outpatient visit 25 minutes Akhil Olivarez MD Work Phone: [facility] Comment on above: Dilated cardiomyopat hy (Multi) (Primary Dx); Arteriosclerosis of coronary artery; BMI 37.0-37.9, adult; High risk medication use; Paroxysmal atrial fibrillation (Multi); Essential hypertension; Mixed hyperlipidemia; Mitral valve insufficiency, unspecified etiology; Tricuspid valve insufficiency, unspecified etiology; Pacemaker; Venous insufficiency of both lower extremities Start: 09-10-2023 End: 09-10-2023 ambulatory [facility] Ambulatory Start: 08-18-2023 End: 08-18-2023 Emergency department patient visit Kwaku Dario Hina Facility:[facility] Start: 08-17-2023 End: 08-17-2023 Patient encounter procedure MD Los Chaudhary Work Phone: [facility]-Pacemaker Check Start: 08-17-2023 End: 08-17-2023 ambulatory MD Los Chaudhary Work Phone: [facility] Work Phone: Start: 07-31-2023 End: 07-31-2023 Emergency department patient visit MD Los Chaudhary Work Phone: [facility]-Emergency Room Work Phone: Start: 07-26-2023 End: 07-26-2023 ambulatory LOS CHAUDHARY Facility:[facility] Start: 07-26-2023 End: 07-26-2023 Patient encounter procedure Shweta Sol MD Work Phone: Plastic Surgery Comment on above: Post-operative state (Primary Dx); Alvarado's palsy Start: 07-13-2023 End: 07-13-2023 Emergency department patient visit MD Los Chaudhary Work Phone: [facility]-Emergency Room Work Phone: Start: 07-12-2023 End: 07-12-2023 ambulatory MD Los Chaudhary Work Phone: [facility] Work Phone: Start: 07-12-2023 End: 07-12-2023 Patient encounter procedure MD Los Chaudhary Work Phone: [facility] Work Phone: Start: 05-22-2023 End: 05-22-2023 Patient encounter procedure MD Los Chaudhary Work Phone: [facility]Pacemaker Check Start: 05-22-2023 End: 05-22-2023 ambulatory MD Los Chaudhary Work Phone: [facility] Work Phone: Start: 05-21-2023 End: 05-21-2023 ambulatory LOS CHAUDHARY Facility:[facility] Start: 05-21-2023 End: 05-21-2023 Patient encounter procedure Rosalva Lemos INSURANCE COUNSEL.INSTRUCTOR BRIDGE Work Phone: Plastic Surgery Comment on above: Post-operative state (Primary Dx) Start: 05-15-2023 End: 05-15-2023 Patient encounter procedure MD Los Chaudhary Work Phone: [facility]-XRay [facility] Work Phone: Start: 05-15-2023 End: 05-15-2023 ambulatory Akhil Olivarez Facility:[facility] Start: 04-30-2023 End: 04-30-2023 ambulatory LOS CHAUDHARY Facility:[facility] Start: 04-24-2023 End: 04-24-2023 ambulatory SHWETA SOL Facility:[facility] Start: 03-30-2023 End: 03-31-2023 ambulatory SELF REFERRAL Facility:[facility] Start: 03-30-2023 End: 03-30-2023 Patient encounter procedure SELF REFERRAL [facility] Start: 03-29-2023 End: 03-29-2023 ambulatory SHWETA SOL Facility:[facility] Start: 03-29-2023 End: 03-29-2023 ambulatory SHWETA SOL Facility:[facility] Start: 03-29-2023 Encounter for other preprocedural examination SHWETA SOL [facility] Start: 03-21-2023 Telephone encounter Shweta argueta MD Work Phone: Plastic Surgery Comment on above: General Questions Start: 02-26-2023 End: 02-26-2023 Office outpatient visit 15 minutes Mickey James INSURANCE COUNSEL-INSTRUCTOR BRIDGE Work Phone: [facility] Comment on above: Arteriosclerosis of coronary artery (Primary Dx); Paroxysmal atrial fibrillation (CMS/HCC); pen[facility]entiary current use of anticoagulant therapy; Pacemaker; Essential hypertension; Statin intolerance; High risk medication use; BMI 34.0-34.9,adult Start: 02-26-2023 End: 02-26-2023 ambulatory [facility] Ambulatory Start: 02-19-2023 End: 02-19-2023 Patient encounter procedure MD Los Chaudhary Work Phone: [facility]Pacemaker Check Start: 02-19-2023 End: 02-19-2023 ambulatory MD Los Chaudhary Work Phone: [facility] Work Phone: Start: 01-01-2023 Telephone encounter Los Chaudhary Work Phone: [facility] 250 DO Work Phone: Start: 12-29-2022 Chart Update Los Chaudhary Work Phone: [facility] 250 DO Work Phone: Start: 12-14-2022 End: 12-14-2022 Patient encounter procedure MD Los Chaudhary Work Phone: [facility]-XRay [facility] Work Phone: Start: 12-14-2022 End: 12-14-2022 ambulatory MD Los Chaudhary Work Phone: [facility] Work Phone: Start: 12-13-2022 End: 12-14-2022 ambulatory LOS CHAUDHARY Facility:[facility] Start: 12-13-2022 End: 12-13-2022 Patient encounter procedure Shweta Sol MD Work Phone: Plastic Surgery Comment on above: Alvarado's palsy (Primar y Dx) Start: 12-04-2022 Patient encounter procedure Do angel Chaudhary Work Phone: [facility] 600 DO Work Phone: Start: 11-29-2022 Postop follow up vis it related to original px Los Chaudhary Work Phone: [facility] 250 DO Work Phone: Start: 11-29-[address] Akhil Olivarez II Facility: Start: 11-23-[address] Los Chaudhary Facility:[id number] Start: 11-23-[address] Los Chaudhary Facility:[id number] Start: 11-22-[address] Akhil Olivarez II Facility:[id number] Start: 11-22-2022 SURGNONUH, Provider: Akhil Olivarez, Status: Pen, Time: 10:00 AM Los Chaudhary Work Phone: [facility] 250 DO Work Phone: Start: 11-21-[address] Akhil Michel Facility:[id number] Start: 11-21-[address] Los Chaudhary Facility:[id number] Start: 11-20-2022 Telephone encounter Los Chaudhary Work Phone: [facility] 250 DO Work Phone: Start: 11-20-[address] Los Chaudhary Facility:[id number] Start: 11-19-2022 End: 11-24-2022 Evaluation and management of inpatient MD Los Chaudhary Work Phone: [facility] [place] [facility] Work Phone: Start: 11-19-[address] Los Chaudhary Facility:[id number] Start: 11-18-[address] Los Chaudhary Facility:[id number] Start: 11-17-2022 Evaluation and manag ement of inpatient MD Los Chaudhary Work Phone: [facility] [place] [facility] Work Phone: Start: 11-17-2022 observation encounter MD Aviva Chaudhary Work Phone: [facility] Work Phone: Start: 11-09-2022 Message Los Chaudhary Work Phone: [facility] 600 DO Work Phone: Start: 10-30-[address] Akhil Olivarez II Facility: Start: 10-08-2022 AUDIT Los Chaudhary Work Phone: [facility] 250 DO Work Phone: Start: 09-25-[address] Akhil Michel Facility:[id number] Start: 09-25-2022 End: 09-25-2022 Admission to same day surgery center [employer] EXCHANGE ARCHITECT-C Summer Garibaymer Work Phone: [facility]-[employer] Artistic Director Work Phone: Start: 09-25-2022 End: 09-25-2022 ambulatory [employer] EXCH[employer] ARCHITECT-C Summer Breonna Yaw Work Phone: [facility] Work Phone: Start: 09-22-2022 Chart Update Los Chaudhary Work Phone: [facility] 250 DO Work Phone: Start: 09-22-2022 End: 09-22-2022 Patient encounter procedure MI[employer] EXCHANGE ARCHITECT-C Summer Yaw Work Phone: [facility] [facility] Work Phone: Start: 09-22-2022 End: 09-22-2022 ambulatory [employer] EXCH[employer] ARCHITECT-C Summer Breonna Yaw Work Phone: [facility] Work Phone: Start: 09-21-2022 Office outpatient vi sit 25 minutes Los Chaudhary Work Phone: [facility] 250 DO Work Phone: Start: 09-21-[address] Akhil Olivarez II Facility: Start: 09-14-2022 ambulatory Sparkle Tran ity:[id number] Start: 09-01-2022 Office outpatient vi sit 25 minutes Los M Hoy Work Phone: [facility] 250 DO Work Phone: Start: 09-01-[address] Akhil Olivarez II Facility: Start: 08-25-2022 End: 08-26-2022 ambulatory PADMAJA MCCLAIN [facility] Facility:[facility] Start: 08-07-2022 End: 09-06-2022 ambulatory SHAIKH Omer WHITE Facility: Start: 08-02-2022 Office outpatient vi sit 15 minutes Los M Hoy Work Phone: [facility] 250 DO Work Phone: Start: 08-02-2022 ambulatory Ms. Mickey James Facility: Start: 08-01-2022 End: 08-02-2022 ambulatory MICKEYCRESCENCIO HERNANDEZ Facility:H1 Start: 07-18-2022 End: 07-18-2022 ambulatory [employer] EXCHANGE ARCHITECT-C Summer Tidwell Work Phone: [facility] Work Phone: Start: 07-18-2022 End: 07-18-2022 Discharged Recurring MI[employer] EXCHANGE ARCHITECT-C Summer Tidwell Work Phone: [facility]-Physical Therapy [facility] Start: 07-10-2022 End: 08-04-[address] LOS CHAUDHARY . Facility:H1 Start: 07-05-2022 ambulatory Ms. Mickey James Facility: Start: 07-05-2022 Office outpatient vi sit 25 minutes Los M Hoy Work Phone: [facility] 250 DO Work Phone: Start: 06-28-2022 End: 06-28-[address] LOS CHAUDHARY . Facility:H1 Start: 06-13-2022 Chart Update Summer warren Work Phone: [facility] 250 DO Work Phone: Start: 06-13-2022 Registered Recurring MI[employer]FT EXCHANGE ARCHITECT-C Cleo la Yaw Work Phone: [facility]-Physical Therapy [address] Start: 06-13-2022 End: 06-13-2022 ambulatory [employer] EXCHANGE ARCHITECT-C Summer Ravi Yaw Work Phone: [facility] Work Phone: Start: 06-13-2022 End: 06-13-2022 Patient encounter procedure MI[employer] EXCHANGE ARCHITECT-C Summer Tidwell Work Phone: [facility]-Respiratory Therapy Work Phone: Start: 06-07-2022 End: 07-07-2022 ambulatory SHAIKH Omer WHITE Facility:H1 Start: 05-24-2022 Patient encounter procedure Freddy Tidwell Work Phone: [facility] 250 DO Work Phone: Start: 05-10-2022 End: 06-07-2022 ambulatory SHAIKH Omer WHITE Facility:H1 Start: 04-28-2022 Rx Renewal Summer Burden r Work Phone: [facility] 250 DO Work Phone: Start: 04-10-2022 End: 05-10-2022 ambulatory SHAIKH Omer WHITE Facility:H1 Start: 03-23-2022 End: 03-23-2022 Patient encounter procedure Los Chaudhary [facility] Start: 03-10-2022 End: 03-10-[address] LOS CHAUDHARY . Facility:H1 Start: 03-09-2022 End: 04-09-2022 ambulatory SHAIKH Omer WHITE Facility:H1 Start: 02-07-2022 Office outpatient vi sit 25 minutes Summer Garibaymer Work Phone: [facility] 250 DO Work Phone: Start: 02-07-[address] Akhil Olivarez II Facility: Start: 02-07-2022 End: 03-08-2022 ambulatory SHAIKH Omer WHITE Facility:H1 Start: 01-10-2022 End: 01-10-2022 Emergency department patient visit [employer] EXCHANGE ARCHITECT-C Summer Tidwell Work Phone: [facility]-Emergency Room Start: 01-08-2022 End: 02-06-2022 ambulatory SUMMER TIDWELL Facility:H1 Start: 01-05-2022 End: 01-05-2022 ambulatory [employer] EXCHANGE ARCHITECT-C Summer Tidwell Work Phone: [facility] Work Phone: Start: 01-05-2022 End: 01-05-2022 Patient encounter procedure MI[employer]FT EXCHANGE ARCHITECT-C Summer Tidwell Work Phone: [facility]-Lab [facility] Start: 01-04-2022 End: 01-04-2022 ambulatory [employer] EXCHANGE ARCHITECT-C Summer Tidwell Work Phone: [facility] Work Phone: Start: 01-04-2022 End: 01-04-2022 Patient encounter procedure MI[employer] EXCHANGE ARCHITECT-C Summer Tidwell Work Phone: [facility]-Lab [facility] Start: 12-29-2021 End: 12-29-2021 ambulatory SUMMER TIDWELL Facility:H1 Start: 12-20-2021 End: 12-22-[address] LOS CHAUDHARY . Facility:H1 Start: 12-16-2021 Chart Update Summer Burden r Work Phone: [facility] 250 DO Work Phone: Start: 12-13-2021 End: 12-13-2021 Patient encounter procedure MI[employer] EXCHANGE ARCHITECT-C Summer Tidwell Work Phone: [facility]-Respiratory Therapy Start: 12-08-2021 End: 01-07-2022 ambulatory SUMMER TIDWELL Facility:H1 Start: 11-28-2021 Office outpatient vi sit 25 minutes Summer Tidwell Work Phone: [facility] 250 DO Work Phone: Start: 11-09-2021 AUDIT Summer Garibayme r Work Phone: [facility] 250 DO Work Phone: Start: 11-07-2021 End: 12-07-2021 ambulatory SUMMER TIDWELL Facility:H1 Start: 11-01-[address] LOS CHAUDHARY . Facili ty:H1 Start: 10-28-2021 End: 10-29-2021 Evaluation and management of inpatient [employer] EXCHANGE ARCHITECT-C Summer Tidwell Work Phone: [facility] [place] [facility] Start: 10-25-2021 End: 10-25-2021 Emergency department patient visit [employer] EXCHANGE ARCHITECT-C Summer Tidwell Work Phone: [facility]-Emergency Room Start: 10-21-2021 Patient encounter procedure Freddy Tidwell Work Phone: [facility] 250 DO Work Phone: Start: 10-21-2021 End: 10-21-2021 Emergency department patient visit [employer] EXCH[employer] ARCHITECT-C Summer Tidwell Work Phone: [facility]-Emergency Room Start: 10-20-2021 End: 10-20-2021 ambulatory SUMMER TIDWELL Facility:H1 Start: 10-07-2021 End: 11-04-2021 ambulatory SHAIKH Omer WHITE Facility:H1 Start: 09-28-2021 Patient encounter procedure Freddy Tidwell Work Phone: [facility] 600 DO Work Phone: Start: 09-21-2021 Office outpatient vi sit 25 minutes Summer Tidwell Work Phone: [facility] 250 DO Work Phone: Start: 06-30-2021 Chart Update Summer Garibayme r Work Phone: [facility] 600 DO Work Phone: Start: 04-22-2021 Patient encounter procedure Pa jaiden Tidwell Work Phone: [facility] 250 DO Work Phone: Start: 04-15-2021 Office outpatient vi sit 25 minutes Summer Tidwell Work Phone: [facility] 250 DO Work Phone: Start: 03-07-2021 Rx Renewal Akhil avitia MD Work Phone: [facility] 250 DO Work Phone: Start: 03-01-2021 Rx Renewal Akhil avitia MD Work Phone: [facility] 600 DO Work Phone: Start: 12-22-2016 End: 12-23-2016 Ambulatory JUSTIN BROWN Facility:[facility] Procedures Date Procedure Procedure Detail Performing Clinician Start: 09-10-2023 Ecg routine ecg w/le ast 12 lds w/i&r Akhil Olivarez MD Work Phone: Start: 07-31-2023 Plain chest X-ray MD Gerber Work Phone: Start: 07-31-2023 SARS-CoV-2, Influenz a & RSV (PCR) MD Los Chaudhary Work Phone: Start: 05-15-2023 Plain chest X-ray MD Gerber Work Phone: Start: 02-26-2023 ECG 12-LEAD MICKEY HENAO H Start: 02-26-2023 Ecg routine ecg w/le ast 12 lds w/i&r Mickey James INSURANCE COUNSEL-INSTRUCTOR BRIDGE Work Phone: Start: 01-23-2023 History of percutane ous transluminal coronary angioplasty H/O percutaneous transluminal coronary angioplasty Mickey James INSURANCE COUNSEL-INSTRUCTOR BRIDGE Work Phone: Start: 12-14-2022 Plain chest X-ray [...] Start: 09-25-2022 CL LHC & COR Angio [employer] EXCHANGE ARCHITECT-C Summerbridget Tidwell Work Phone: Start: 09-25-2022 CL Stent 1st Vessel CX COLBY [employer] EXCHANGE ARCHITECT-C Summerbridget Tidwell Work Phone: Start: 06-13-2022 Plain chest X-ray [employer] EXCHANGE ARCHITECT-C Summer Yaw Work Phone: Start: 01-10-2022 CT of head without contrast [employer] EXCHANGE ARCHITECT-C Summer Yaw Work Phone: Start: 12-13-2021 Plain chest X-ray [employer] EXCH[employer] ARCHITECT-C Summer Yaw Work Phone: Start: 10-28-2021 CT angiography of head [employer] EXCHANGE ARCHITECT-C Summer Yaw Work Phone: Start: 10-28-2021 CT angiography of ne ck vessels MI[employer]OS[employer] EXCHANGE ARCHITECT-C Summer Yaw Work Phone: Start: 10-28-2021 Magnetic resonance angiography of head without contrast [employer] EXCHANGE ARCHITECT-C Summer Yaw Work Phone: Start: 10-25-2021 CT of head without contrast [employer] EXCHANGE ARCHITECT-C Summer Yaw Work Phone: Start: 10-21-2021 Plain chest X-ray [employer] EXCHANGE ARCHITECT-C Summer Yaw Work Phone: Start: 03-09-2016 Stereotactically wilma ded core needle biopsy of breast Los Hoy Comment on above: left Start: 04-09-2009 5 Stents Los Will y Angioplasty of blood vessel Summer Tidwell Work Phone: Extraction of cataract Aviva calle Hoy H/O: surgery Status post eye surgery [employer] EXCHANGE ARCHITECT-C Summer Tidwell Work Phone: History of placement of stent for coronary artery disease History of heart artery stent [employer] EXCHANGE ARCHITECT-C Summer Tidwell Work Phone: History of placement of stent for coronary artery disease Status post insertion of drug eluting coronary artery stent Los M Neena Work Phone: L Hip Surgery Los Chaudhary Operation on fracture Summer Tidwell Work Phone: Operative procedure on hip Summer Tidwell Work Phone: R Broken leg Los Chaudhary SARS-CoV-2, Influenz a & RSV (PCR) [employer] EXCHANGE ARCHITECT-C Summer Tidwell Work Phone: Surgical procedure Summer Tidwell Work Phone: Comment on above: stent indications; Urine culture [employer]OS[employer] EXCHANGE ARCHITECT-C Summer Jimenez carmenstanislav Work Phone: NEGATED: Highlighted row has not occurred! Total colonoscopy Summer Tidwell Work Phone: Plan of Treatment Date Care Activity Detail Author Start: 05-15-2026 Diabetes Screening Diabetes Screening [facility] Start: 08-13-2024 Echocardiography Echocardiogram [facility] Start: 12-28-2023 End: 12-28-2023 Patient encounter procedure 12/28/2023 1:20 PM EDT Office Visit [facility] [address] [facility] [address] [place] [address] Bg Nation MD [address] [facility] [place] [address] [facility] Start: 12-09-2023 Influenza vaccination Influenza Vaccine (Season Ended) [facility] Start: 12-04-2023 End: 09-09-2024 Aspartate aminotransferase [Enzymatic activity/volume] in Serum or Plasma by With P-5'-P Aspartate Aminotransferase Lab Routine High risk medication use Expected: 12/04/2023 (Approximate), Expires: 09/09/2024 [facility] Service Area Work Phone: Comment on above: Expected: 12/04/2023 (Approximate), Expi res: 09/09/2024 Start: 12-04-2023 End: 09-09-2024 Basic metabolic 2000 panel - Serum or Plasma Basic Metabolic Panel Lab Routine High risk medication use Expected: 12/04/2023 (Approximate), Expires: 09/09/2024 [facility] Work Phone: Comment on above: Expected: 12/04/2023 (Approximate), Expi res: 09/09/2024 Start: 12-04-2023 End: 09-09-2024 Thyrotropin [Units/volume] in Serum or Plasma Thyroid Stimulating Hormone Lab Routine High risk medication use Expected: 12/04/2023 (Approximate), Expires: 09/09/2024 [facility] Work Phone: Comment on above: Expected: 12/04/2023 (Approximate), Expi res: 09/09/2024 Start: 12-04-2023 Subsequent hospital visit by physician 12/04/2023 Hospital Encounter EF RAD EXTERNAL FILM VIRTUAL [id number] [facility] [place] [address] High risk medication use EF RAD EXTERNAL FILM VIRTUAL Comment on above: High risk medication use Start: 09-21-2023 [facility] Start: 09-10-2023 End: 09-09-2024 Amiodarone Level Amiodarone Level Lab Routine Paroxysmal atrial fibrillation (Multi) Expected: 09/10/2023 (Approximate), Expires: 09/09/2024 [facility] Work Phone: Comment on above: Expected: 09/10/2023 (Approximate), Expi res: 09/09/2024 Start: 09-10-2023 End: 09-09-2024 Complete Pulmonary Function Test (Spirometry/DLCO/Lung Volumes) Complete Pulmonary Function Test (Spirometry/DLCO/Lung Volumes) PFT Routine High risk medication use Expected: 09/10/2023 (Approximate), Expires: 09/09/2024 [facility] Work Phone: Comment on above: Expected: 09/10/2023 (Approximate), Expi res: 09/09/2024 Start: 09-10-2023 [facility] Start: 09-05-2023 End: 09-05-2023 Patient encounter procedure 09/05/2023 1:30 PM EDT Office Visit [facility] [address] [facility] [address] [place] [address] Akhil Olivarez MD [address] [facility] [address] [place] [address] [facility] Start: 05-15-2023 Plain chest X-ray XR chest 2V* [facility] Start: 04-10-2023 FUV, Provider: Akhil Olivarez, Status: Pen, Time: 10:20 AM FUV, Provider: Akhil Olivarez, Status: Pen, Time: 10:20 AM [facility] 250 DO Work Phone: Start: 04-09-2023 Advance Directive Discussion Advance Directive Discussion [facility] Start: 04-09-2023 Behavioral Health Screening Behavioral Health Screening [facility] Start: 04-09-2023 Depression Assessment Depression Assessment [facility] Start: 02-26-2023 FUV, Provider: Mickey Biggs, Status: Pen, Time: 1:00 PM FUV, Provider: Mickey Biggs, Status: Pen, Time: 1:00 PM [facility] 250 DO Work Phone: Start: 12-08-2022 Covid-19 Vaccine ( season) Covid-19 Vaccine ( season) [facility] Start: 12-08-2022 Influenza vaccination Influenza Vaccine (#1) [facility] Start: 11-30-2022 [facility] Start: 11-29-2022 [facility] Start: 11-28-2022 [facility] Start: 11-27-2022 [facility] Start: 11-26-2022 [facility] Start: 11-25-2022 [facility] Start: 11-24-2022 [facility] Start: 11-22-2022 [facility] Start: 11-22-2022 Lipid panel [facility] Start: 11-21-2022 Lipid panel [facility] Start: 11-20-2022 Catheterization of left heart CL *Left Heart Cath (LHC) [facility] Start: 11-20-2022 Lipid panel [facility] Start: 11-19-2022 Fluoroscopy of Left Heart using Low Osmolar Contrast Fluoroscopy of Left Heart using Low Osmolar Contrast [facility] Start: 11-19-2022 Fluoroscopy of Multiple Coronary Arteries using Low Osmolar Contrast Fluoroscopy of Multiple Coronary Arteries using Low Osmolar Contrast [facility] Start: 11-19-2022 Insertion of Pacemaker Lead into Right Atrium, Percutaneous Approach Insertion of Pacemaker Lead into Right Atrium, Percutaneous Approach [facility] Start: 11-19-2022 Insertion of Pacemaker Lead into Right Ventricle, Percutaneous Approach Insertion of Pacemaker Lead into Right Ventricle, Percutaneous Approach [facility] Start: 11-19-2022 Insertion of Pacemaker, Dual Chamber into Chest Subcutaneous Tissue and Fascia, Open Approach Insertion of Pacemaker, Dual Chamber into Chest Subcutaneous Tissue and Fascia, Open Approach [facility] Start: 11-19-2022 Measurement of Cardiac Sampling and Pressure, Left Heart, Percutaneous Approach Measurement of Cardiac Sampling and Pressure, Left Heart, Percutaneous Approach [facility] Start: 11-19-2022 Lipid panel [facility] Start: 11-18-2022 Lipid panel [facility] Start: 11-18-2022 End: 11-18-2022 [facility] Start: 11-17-2022 End: 11-17-2022 [facility] Start: 11-17-2022 Hospital admission [facility] Start: 11-17-2022 Referral to needle grader [facility] Start: 10-30-2022 FUV, Provider: Akhil Olivarez, Status: Pen, Time: 11:30 AM FUV, Provider: Akhil Olivaerz, Status: Pen, Time: 11:30 AM -[facility] 250 DO Work Phone: Start: 10-29-2022 Echocardiography Echocardiogram [facility] Start: 09-25-2022 [facility] Start: 09-25-2022 SURGNONUH, Provider: Akhil Michel, Status: Pen, Time: 10:00 AM SURGNONUH, Provider: Akhil Michel, Status: Pen, Time: 10:00 AM -[facility] 250 DO Work Phone: Start: 09-14-2022 STRESS NUC, Provider: RICHARD HHVI NUCLEAR 01,[id number], Status: Pen, Time: 8:00 AM STRESS NUC, Provider: RICHARD HHVI NUCLEAR 01,[id number], Status: Pen, Time: 8:00 AM -[facility] 250 DO Work Phone: Start: 09-01-2022 FUV, Provider: Akhil Olivarez, Status: Pen, Time: 2:00 PM FUV, Provider: Akhil Olivarez, Status: Pen, Time: 2:00 PM -[facility] 250 DO Work Phone: Start: 08-02-2022 FUV, Provider: Mickey Biggs, Status: Pen, Time: 1:00 PM FUV, Provider: Mickey Biggs, Status: Pen, Time: 1:00 PM -[facility] 250 DO Work Phone: Start: 04-09-2022 Advance Directive Discussion Advance Directive Discussion [facility] Start: 04-09-2022 Depression Assessment Depression Assessment [facility] Start: 11-28-2021 FUV, Provider: Akhil Olivarez, Status: Pen, Time: 8:20 AM FUV, Provider: Akhil Olivarez, Status: Pen, Time: 8:20 AM -[facility] 250 DO Work Phone: Start: 11-07-2021 [facility] Work Phone: Start: 11-06-2021 [facility] Work Phone: Start: 11-05-2021 [facility] Work Phone: Start: 11-04-2021 [facility] Work Phone: Start: 11-03-2021 [facility] Work Phone: Start: 11-02-2021 [facility] Work Phone: Start: 11-01-2021 [facility] Work Phone: Start: 10-31-2021 [facility] Work Phone: Start: 10-30-2021 [facility] Work Phone: Start: 10-29-2021 End: 10-29-2021 [facility] Start: 10-28-2021 Referral to neurologist [facility] Start: 10-28-2021 Vitamin B12 measurement [facility] Work Phone: Start: 10-28-2021 Vitamin D, 25-hydroxy measurement [facility] Work Phone: Start: 10-28-2021 Hospital admission [facility] Start: 10-28-2021 Physical therapy procedure [facility] Work Phone: Start: 10-28-2021 Referral to occupational therapist [facility] Work Phone: Start: 10-28-2021 [facility] Work Phone: Start: 09-28-2021 EVENT PILAR, Provider: IMAN VAZ [employer] ASSOCIATE 1,[id number], Status: Pen, Time: 2:30 PM EVENT PILAR, Provider: IMAN VAZ [employer] ASSOCIATE 1,[id number], Status: Pen, Time: 2:30 PM [facility] 250 DO Work Phone: Start: 09-21-2021 FUV, Provider: Akhil Olivarez, Status: Pen, Time: 2:10 PM FUV, Provider: Akhil Olivarez, Status: Pen, Time: 2:10 PM -[facility] 250 DO Work Phone: Start: 04-15-2021 FUV, Provider: Akhil Olivarez, Status: Pen, Time: 1:15 PM -[facility] 600 DO Work Phone: Start: 11-26-2020 Screening for osteoporosis Bone Density Scan [facility] Start: 04-19-2020 Diabetes Screening Diabetes Screening [facility] Start: 11-27-2019 Screening for osteoporosis Bone Density Scan [facility] Start: 12-09-2009 Urine microalbumin profile DTaP,Tdap,Td Vaccine (1 - Tdap) [facility] Start: 1999 Bone Density Screening Bone Density Screening [facility] Start: 1999 Pneumococcal Vaccine: 65+ (1 - PCV) Pneumococcal Vaccine: 65+ (1 - PCV) [facility] Start: 1999 Screening for osteoporosis Bone Density Screening [facility] Start: 1994 RSV patients and/or patients aged 60+ years (1 - 1-dose 60+ series) RSV patients and/or patients aged 60+ years (1 - 1-dose 60+ series) [facility] Start: 1994 RSV Vaccine (1 - 1-dose 60+ series) RSV Vaccine (1 - 1-dose 60+ series) [facility] Start: 1984 Shingrix Vaccine (1 of 2) Shingrix Vaccine (1 of 2) [facility] Start: 1984 Zoster Vaccines (1 of 2) Zoster Vaccines (1 of 2) [facility] Start: 1956 DTaP/Tdap/Td Vaccines (1 - Tdap) DTaP/Tdap/Td Vaccines (1 - Tdap) [facility] Start: 1953 Urine microalbumin profile DTaP,Tdap,Td Vaccine (1 - Tdap) [facility] Start: 1952 Diabetes mellitus screening Diabetes Screening [facility] Start: 02-26-1953 Hepatitis B surface antibody level LDL Cholesterol [facility] Start: 1934 Covid-19 Vaccine (#1) Covid-19 Vaccine (#1) [facility] Start: 1934 Creatinine measurement Creatinine Level [facility] Start: 1934 Lipid panel Lipid Panel [facility] Start: 1934 Medicare Annual Wellness Visit Medicare Annual Wellness Visit (AWV) [facility] Start: 1934 Potassium measurement Potassium Level [facility] Start: 1934 Thyroid stimulating hormone measurement TSH Level [facility] Amiodarone [Mass/vol ume] in Serum or Plasma [facility] Bacteria identified in Urine by Culture [facility] Desethylamiodarone [Mass/volume] in Serum or Plasma [facility] ECG 12 lead (Clinic Performed) ECG 12 lead (Clinic Performed) ECG Routine Paroxysmal atrial fibrillation (CMS/HCC) High risk medication use 02/26/2023 1:22 PM [facility] Service Area Work Phone: Patient Education [facility] Work Phone: Patient referral [facility] Work Phone: Vitamin D, 25-hydrox y measurement [facility] Work Phone: [facility] Immunizations Immunization Date Immunization Notes Care Provider Boyd lozano 12-08-2019 influenza, high dose seasonal, preservative-free Summer Tidwell Work Phone: [facility] 250 DO Work Phone: 12-08-2019 influenza virus vacc ine, unspecified formulation Shweta Sol MD Work Phone: [facility] 12-04-2019 influenza, high dose seasonal, preservative-free Mickey James INSURANCE COUNSEL-INSTRUCTOR BRIDGE Work Phone: [facility] Work Phone: 12-18-2018 influenza, high dose seasonal, preservative-free Summer Tidwell Work Phone: [facility] 250 DO Work Phone: 12-18-2018 pneumococcal polysaccharide vaccine, 23 valent Summer S Yaw Work Phone: [facility] 12-08-2018 influenza virus vacc ine, unspecified formulation Summer S Yaw Work Phone: [place] [address] DO Work Phone: 04-09-2018 pneumococcal conjuga te vaccine, 13 valent Mickey James INSURANCE COUNSEL-INSTRUCTOR BRIDGE Work Phone: [facility] Work Phone: 04-09-2018 pneumococcal polysaccharide vaccine, 23 valent Summer S Yaw Work Phone: [place] [address] DO Work Phone: 12-26-2017 influenza, high dose seasonal, preservative-free Summer S Yaw Work Phone: [place] [address] DO Work Phone: 12-26-2017 influenza, injectabl e, quadrivalent, preservative free Mickey James INSURANCE COUNSEL-INSTRUCTOR BRIDGE Work Phone: [facility] Work Phone: 01-03-2017 influenza, high dose seasonal, preservative-free Summer S Yaw Work Phone: [place] [address] DO Work Phone: 01-03-2017 pneumococcal conjuga te vaccine, 13 valent Summer S Yaw Work Phone: [facility] 250 DO Work Phone: 12-26-2016 influenza virus vacc ine, unspecified formulation Summer S Yaw Work Phone: [facility] 12-26-2016 pneumococcal conjuga te vaccine, 13 valent Summer S Yaw Work Phone: [facility] 250 DO Work Phone: 01-11-2016 influenza, high dose seasonal, preservative-free Summer S Yaw [facility] DO Work Phone: 02-12-2015 influenza, injectabl e, quadrivalent, preservative free [facility] S Yaw [facility] DO Work Phone: 01-07-2015 influenza virus vacc ine, unspecified formulation Summer S Yaw [facility]: [facility] DO Work Phone: 01-07-2014 influenza virus vacc ine, unspecified formulation Summer S Yaw Work Phone: [facility] 250 DO Work Phone: 02-25-2013 influenza, seasonal, injectable Summer S Yaw [facility] DO Work Phone: 03-26-2009 novel influenza-H1N1 -09, preservative-free, injectable Summer S Yaw Work Phone: [facility] 250 DO Work Phone: 04-09-2007 pneumococcal polysaccharide vaccine, 23 valent Summer S Yaw Work Phone: [facility] 250 DO Work Phone: 02-02-2003 pneumococcal polysaccharide vaccine, 23 valent Summer S Yaw Work Phone: [facility] influenza virus vacc ine, unspecified formulation Summer S Yaw [facility] DO Work Phone: Comment on above: [id number] Payers Date Payer Category Payer Medicare [id number] 2023 Medicare [id number] 2022 Self-pay [id number] 2022 Unknown [id number] 2016 Unknown 2012 Medicare [id number] 1999 Medicare 1959 Medicare [id number] 1959 Unknown [id number] 1934 Unknown [id number] 2.16.840.1.707574.3.579.2.593 1934 Unknown [id number] 2.16.840.1.556722.3.579.2.593 1934 Unknown [id number] 2.16.840.1.594422.3.579.2.593 1934 Unknown [id number] 2.16.840.1.380499.3.579.2.593 1934 Unknown [id number] 2.16.840.1.743043.3.579.2.593 1934 Unknown [id number] 2.16.840.1.085710.3.579.2.593 1934 Unknown [id number] 2.16.840.1.587836.3.579.2.593 1934 Unknown [id number] 2.16.840.1.477456.3.579.2.593 1934 Unknown [id number] 2.16.840.1.567755.3.579.2.593 1934 Unknown [id number] 2.16.840.1.083710.3.579.2.593 1934 Unknown [id number] 2.16.840.1.783339.3.579.2.593 1934 Unknown [id number] 2.16.840.1.321482.3.579.2.593 1934 Unknown [id number] 2.16.840.1.019360.3.579.2.593 1934 Unknown [id number] 2.16.840.1.687091.3.579.2.593 1934 Unknown [id number] 2.16.840.1.695751.3.579.2.593 1934 Unknown [id number] 2.16.840.1.939243.3.579.2.593 1934 Unknown [id number] 2.16.840.1.705741.3.579.2.593 1934 Unknown [id number] 2.840.1.712334.3.579.2.593 1934 Unknown [id number] 2.16840.1.433995.3.579.2.1068 1934 Unknown [id number] 2.16.840.1.801472.3.579.2.356 1934 Unknown [id number] 2.840.1.201091.3.579.2.356 1934 Unknown [id number] 2.840.1.801281.3.579.2.356 1934 Unknown [id number] 2.16840.1.773468.3.579.2.356 1934 Unknown [id number] 2.16840.1.056899.3.579.2.356 1934 Unknown [id number] 2.16.840.1.260595.3.579.2.356 1934 Unknown [id number] 2.16840.1.561955.3.579.2.356 1934 Unknown [id number] 2.16.840.1.799076.3.579.2.356 1934 Unknown [id number] 2.16.840.1.172120.3.579.2.356 1934 Unknown [id number] 2.16.840.1.499635.3.579.2.356 1934 Unknown [id number] 2.16.840.1.164276.3.579.2.356 1934 Unknown [id number] 2.16.840.1.170038.3.579.2.356 1934 Unknown [id number] 2.16840.1.501235.3.579.2.356 1934 Unknown [id number] 2.16840.1.478978.3.579.2.356 1934 Unknown [id number] 2.840.1.741422.3.579.2.356 1934 Unknown [id number] 2.16840.1.291470.3.579.2.356 1934 Unknown [id number] 2.16840.1.338099.3.579.2.356 1934 Unknown [id number] 2.840.1.034813.3.579.2.727 1934 Unknown [id number] 2.840.1.955230.3.579.2.718 1934 Unknown [id number] 2.16840.1.559895.3.579.2.1245 1934 Unknown [id number] 2.16840.1.893556.3.579.2.1244 1934 Unknown [id number] 2.16840.1.492332.3.579.2.1244 Medicare Medicare Rehab-IP Part A [id number] Unknown [id number] 2.16.840.1.002974.3.579.2.531 Unknown [id number] 2.16.840.1.545036.3.579.2.531 Unknown [id number] 2.16.840.1.703973.3.579.2.531 Unknown [id number] 2.16.840.1.828841.3.579.2.531 Unknown [id number] 2.16.840.1.276020.3.579.2.531 Unknown [id number] 2.16.840.1.369990.3.579.2.531 Unknown [id number] 2.16.840.1.173962.3.579.2.531 Unknown [id number] 2.16.840.1.595832.3.579.2.531 Unknown [id number] 2.16.840.1.358334.3.579.2.531 Unknown [id number] 2.16.840.1.845258.3.579.2.531 Unknown [id number] 2.16.840.1.284242.3.579.2.531 Unknown [id number] 2.16.840.1.547535.3.579.2.531 Social History Date Type Detail Facility Start: 12-13-2022 End: 02-26-2023 No alcohol use No alcohol use [place] [address] DO Work Phone: Comment on above: Hot sandy occas.; Start: 10-28-2021 Tobacco smoking stat us UTIS Unknown if ever smoked [facility] Start: 1934 Sex Assigned At Female F [facility] Start: 10-29-2021 End: 11-22-2022 Tobacco smoking status NHIS Never smoked tobacco (finding) [facility] Start: 12-13-2022 End: 02-26-2023 Sex Assigned At Female [facility] Start: 12-13-2012 End: 02-23-2023 Tobacco use and exposure Smokeless tobacco non-user [facility] Start: 12-13-2022 End: 03-29-2023 Alcohol intake Current non-drinker of alcohol (finding) [facility] National Score (1-100), lower number is lower risk 91 [facility] Start: 1935 Sex Assigned At Not on file [facility] Start: 02-26-2023 End: 09-10-2023 Alcohol intake Lifetime non-drinker (finding) [facility] Work Phone: Start: 02-16-2023 End: 09-10-2023 Exposure to SARS-CoV-2 (event) Not sure [facility] Medical Equipment Procedure Code Equipment Code Equipment Origin al Text Equipment Identifier Dates Insertion, pacemaker Endocardial pacing lead [id number] FDA Start: 11-22-2022 Insertion, pacemaker Endocardial pacing lead ()[id number] FDA Start: 11-22-2022 Insertion, pacemaker Dual-chamber implantable pacemaker, rate-responsive ()[id number] FDA Start: 11-22-2022 BLADE HELICAL TF [...] 2.5 X 30 FDA Start: 09-25-2022 Oculid [place] Slim [id number] Sta rt: 04-24-2023 BLADE HELICAL [...] STANLEY FRONTIER 2.5 X 30 FDA Start: 06-19-2023 BLADE HELICAL TF NA 100MM FDA Start: 03-15-2017 NAIL TFNA SHORT NAIL 10MM FDA Start: 03-15-2017 SCREW 5.0MM TI LOCKING 38MM FDA Start: 03-15-2017 CL STENT STANLEY FRONTIER 2.5 X 30 FDA Start: 09-25-2022 Goals Date Patient Goal Desired Activity /State Functional Status Date Assessment Result Facility 11-24-2022 Functional status Patient is Pro gressing Toward Baseline [facility] Work Phone: 11-17-2022 Functional status Disability Sta tus Patient at Baseline [facility] Work Phone: 09-25-2022 Functional status Patient at Baseline [facility] Work Phone: 10-29-2021 Functional status Patient is Pro gressing Toward Baseline [facility] Work Phone: Mental Status Date Assessment Result Facility 11-24-2022 Cognitive function Cognitive Sta tus Patient at Baseline [facility] Work Phone: 09-25-2022 Cognitive function Cognitive Sta tus Patient at Baseline [facility] Work Phone: 10-29-2021 Cognitive function Cognitive Sta tus Patient at Baseline [facility] Work Phone: Clinical Notes 10-28-2021 to 09-21-2023 Akhil Olivarez MD - 09/10/2023 10:00 AM EDTPatient InstructionsShweta Sol MD - 07/26/2023 9:15 AM Rosalva Rowland APRN.INSTRUCTOR BRIDGE - 05/21/2023 8:40 AM ESTPatient Instructions Note Date & Type Note Facility 09-21-2023 Procedure note [facility] 09-10-2023 History of Presen t illness Narrative [...] Allergies Beta-blockers (beta-adrenergic blocking agts), Ibuprofen, and Fxdafvm-rlx-lnd reductase inhibitors Current Medications Current Outpatient Medications: [...] daily., Disp: , Rfl: fish oil concentrate ([place]-3) 120-180 mg capsule, Take 1 capsule (1 [...] by mouth see administration instructions. Per [facility], Disp: , Rfl: Pacemaker/Defibrillator follow up per [...] other providers for this in her local [facility]. Scribe Attestation By signing my name below, ICarol Anastacio BAIG attest that this documentation has been prepared [...] discussion and plan. documented in this encounter [facility] Work Phone: 09-10-2023 Instructions Michaela Mondragon [...] of your visit. documented in this encounter [facility] Work Phone: 08-18-2023 Note Education Materials [...] health care provider. General instructions ? Take jkhe-vui-fkurlfi and prescription medicines only as told by [...] a hematoma on (more content not included)... [facility] 07-26-2023 Note HNO ID: [id number] Author: SHWETA SOL MD Service: ? 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 [facility] clopidogrel (PLAVIX) 75 mg tablet Take 75 [...] of left upper eyelid weight (1.6 g [place] weight placed in the left upper eyelid), [...] with more than 50% of the total tjgf-yz-cwog time of the visit in counseling / [...] 2023 9:58 AM documented in this encounter [facility] 05-21-2023 Note HNO ID: [id number] Author: ROSALVA LEMOS APRN.INSTRUCTOR BRIDGE Service: ? Author Type: Nurse Practitioner Type: Progress Notes Filed: 05/21/2023 09:27 Note Text: Plastic Surgery Post Op Note CC: post op HPI Date of Surgery: 04/24/2023 Surgery: insertion of left upper eyelid weight (1.6 g [place] weight placed in the left upper eyelid), [...] questions or concerns during business hours call [phone] or after hours (after 5 pm or on the weekend) call [phone] and ask for the plastic surgery resident / fellow education director for further instructions. If you have increasing [...] or difficulty breathing (more content not included)... [facility] 05-21-2023 History of Presen t illness Narrative Plastic Surgery Post Op Note CC: post op HPI Date of Surgery: 04/24/2023 Surgery: insertion of left upper eyelid weight (1.6 g [place] weight placed in the left upper eyelid), [...] 1 tablet by mouth once daily. [facility] clopidogrel (PLAVIX) 75 mg tablet Take 75 [...] follow up in [address] oSl to monitor her progress -If experiencing wound complications or have any questions or concerns during business hours call [phone] or after hours (after 5 pm or on the weekend) call [phone] and ask for the plastic surgery resident / fellow education director for further instructions. If you have increasing [...] Past Histories independently gathered by the clinical respiratory support technician and the remaining scribed note accurately describes my personal service to the patient. Rosalva Lemos APRN.CNP May 21, 2023 documented in this encounter [facility] 04-30-2023 Note HNO ID: [id number] Author: ROSALVA LEMOS APRN.CNP Service: ? Author Type: Nurse Practitioner Type: Progress Notes Filed: 04/30/2023 10:27 Note Text: Plastic Surgery Post Op Note CC: post op HPI Date of Surgery: 04/24/2023 Surgery: insertion of left upper eyelid weight (1.6 g [place] weight placed in the left upper eyelid), [...] 1 tablet by mouth once daily. [facility] clopidogrel (PLAVIX) 75 mg tablet Take 75 [...] questions or concerns during business hours call [phone] or after hours (after 5 pm or on the weekend) call [phone] and ask for the plastic surgery resident / fellow education director for further instructions. If you have increasing [...] shortness of breas (more content not included)... [facility] 04-24-2023 Note HNO ID: [id number] Author: ?, ?, ? Service: Pharmacy Author Type: ? Type: Plan of Care Filed: 04/25/2023 14:43 Note Text: PHARMACY BEDSIDE DELIVERY SERVICE Patient Name: Erin Canales The marked outpatient medications were filled at [facility] pharmacy and picked up at the [...] your Primary Care Provider. Merlin Reese PAGER: [phone] April 25, 2023 2:42 PM [facility] 03-29-2023 Note HNO ID: [id number] Author: Shweta Sol MD Service: ? 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 This developed [...] mouth once daily. Allergies: ALLERGIES Allergen Reactions Sejwupy-Wef-Yoe Red* Other: See Comments Cannot walk when [...] Past Histories independently gathered by the clinical respiratory support technician and the remaining scribed note accurately describes [...] Sol MD March 29, 2023 2:34 PM [facility] 03-21-2023 Miscellaneous Notes I see that it [...] need a PAC appt please advise. Ph- [phone] documented in this encounter [facility] 02-27-2023 Evaluation + Plan note Associated Problem(s): Pacemaker November 22, 2022 Garcia 2272 dual-chamber permanent pacemaker [facility] Work Phone: 02-27-2023 Evaluation + Plan note Associated Problem(s): [facility]iary current use of anticoagulant therapy CHADS VASc 5 anticoagulated on Coumadin Denies bleeding diatheses [facility] Work Phone: 02-27-2023 Miscellaneous Notes Associated Problem(s): Pacemaker November 22, 2022 Garcia 2272 dual-chamber permanent pacemaker Associated Problem(s): penitentiary current use of anticoagulant therapy CHADS VASc [...] 2.5/30mm Diag, LAD, OM3 patent stents pRCA INVENTORY CLERK Nov 21, 2022 Repeat cath: no changes Current daily activity 4 METS without concerning symptoms Associated Problem(s): High risk medication use Amiodarone Surveillance testing December 2022 Associated Problem(s): Abnormal echocardiogram October 2021 echo LVEF 55 to 60% LVH mild LAE moderate dilated MR mild RVSP 40 mmHg documented in this encounter [facility] Work Phone: 02-27-2023 Evaluation + Plan note Associated Problem(s): Paroxysmal atrial fibrillation (CMS/HCC) EKG in office a paced, underlying sinus rhythm. QTc 432. [facility] Work Phone: 02-27-2023 Evaluation + Plan note Associated Problem(s): Statin intolerance September 2022 LDL 90, HDL 46 Briefly discussed Repatha and politely declines due to concerns regarding cost and self injections. [facility] Work Phone: 02-27-2023 Evaluation + Plan note Associated Problem(s): Essential hypertension Optimal in office [facility] Work Phone: 02-27-2023 Evaluation + Plan note Associated Problem(s): Arteriosclerosis of coronary artery September 25, 2022 pCX PCI/Stanley 2.5/30mm Diag, LAD, OM3 patent stents pRCA INVENTORY CLERK Nov 21, 2022 Repeat cath: no changes Current daily activity 4 METS without concerning symptoms [facility] Work Phone: 02-27-2023 Evaluation + Plan note Associated Problem(s): High risk medication use Amiodarone Surveillance testing December 2022 [facility] Work Phone: 02-26-2023 Evaluation + Plan note Associated Problem(s): Abnormal echocardiogram October 2021 echo LVEF 55 to 60% LVH mild LAE moderate dilated MR mild RVSP 40 mmHg [facility] Work Phone: 02-26-2023 History of Presen [...] (Beta-Adrenergic Blocking Agts) Other bradycardia Ibuprofen Hives Fozanrc-Web-Mjt Reductase Inhibitors Myalgia and Other Current Outpatient Medications Medication Instructions amiodarone (PACERONE) 200 mg, oral, Daily aspirin 81 mg chewable tablet Take one tablet by mouth twice a week cholecalciferol (Vitamin D-3) 50 mcg (2,000 unit) capsule 1 capsule, oral, Daily clopidogrel (PLAVIX) 75 mg, oral, Daily cyanocobalamin (Vitamin B-12) 100 mcg tablet 1 tablet, oral, Daily fish oil concentrate ([place]-3) 120-180 mg capsule 1 capsule, oral, Daily [...] mg, oral, See admin instructions, Per [facility] Assessment: Abnormal echocardiogram October 2021 echo LVEF 55 to 60% LVH mild LAE moderate dilated MR mild RVSP 40 mmHg High risk medication use Amiodarone Surveillance testing December 2022 Arteriosclerosis of coronary artery September 25, 2022 pCX PCI/Stanley 2.5/30mm Diag, LAD, OM3 patent stents pRCA INVENTORY CLERK Nov 21, 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 Paroxysmal atrial fibrillation (CMS/HCC) EKG in office a paced, underlying sinus rhythm. QTc 432. penitentiary current use of anticoagulant therapy CHADS VASc [...] Dr. Olivarez 6 months Mickey James MSN, INSURANCE COUNSEL-INSTRUCTOR BRIDGE, PMHNP-[facility] Please excuse any errors in grammar or translation related to this dictation. Voice recognition software was utilized to prepare this document. documented in this encounter [facility] Work Phone: 02-26-2023 Instructions MAGALI Phan [...] Olivarez 6 months documented in this encounter [facility] Work Phone: 12-13-2022 Note HNO ID: [id number] Author: Jae Adkins RN Service: ? 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 This developed [...] Allergies: ALLERGIES Allergen Reactions Motrin [Ibuprofen] Unknown Mwnuccj-Sgl-Orq Red* Other: See Comments Cannot walk when [...] Past Histories independently gathered by the clinical respiratory support technician and the remaining scribed note accurately describes [...] complete. 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 This developed [...] Allergies: ALLERGIES Allergen Reactions Motrin [Ibuprofen] Unknown Joisokr-Hbf-Jfb Red* Other: See Comments Cannot walk when [...] Past Histories independently gathered by the clinical respiratory support technician and the remaining scribed note accurately describes [...] December 13, 2022 documented in this encounter [facility] 11-24-2022 Discharge summary Note Date/Time November 24, 2022 10:58am [facility] [address] [place] [address] Discharge Summary Signed Patient: Erin Canales MR#: [id number] : 1935 Acct:[id number] Age/Sex: 87 / F Adm Date: 3 Loc: Room: [address] [place] [address]: Danilo Drummond MD Copies to: [...] pain. She was diagnosed having non-ST elevation NC. She was seen by needle grader who recommended cardiac catheter. Please refer to [...] ask her primary care doctor to obtain [facility] record entirely to address abnormalities seen [...] % (Auto) 68.1, Lymph % (Auto) 20.3, [place] % (Auto) 8.8, Eos % (Auto) 1.7, Baso % (Auto) 1.1, Nucleat RBC Rel Count 0.1, Neut # (Auto) 4.0, Lymph # (Auto) 1.2, [place] # (Auto) 0.5, Eos # (Auto) 0.1, [...] oriented to place, time and person HEENT: [place] conjunctiva and NL buccal mucosa Neck: Supple, [...] with nurse for incision check in the [facility] Office on 11/29/2022 at 2:00pm. 2. Chest x-ray to be done the day of device check at [facility] on 02/19/2023. 3. Pacemaker/ICD clinic appointment at [facility] on 02/19/2023 at 10:00am . 4. Office visit with Mickey James NP in the [facility] on 02/26/2023 at 1:00pm. [] I may not have addressed or treated all of your medical illnesses or the abnormal blood work or imaging studies during this hospitalization. Please ask your primary care provider to obtain [facility] records entirely to follow up on all [...] symptoms worsen or return. Discharging you from [facility] does not mean that your medical care [...] unit) Tablet 50 mcg PO DAILY omega 1-xzy-wew-fish oil [Fish Oil] 1,000 mg (120 mg-180 [...] EYE-LEFT DAILY PRN (Reason: Dry Eye(S)) [facility] 40-10-5-3.3 mg Tablet 1 tab PO DAILY [...] <Electronically signed by Danilo Drummond MD> 11/24/22 1213 [facility] Work Phone: 1(516) 747-476508-17-2023 Progress note Author Danilo Drummond [facility] November 23, 2022 4:11pm Note Date/Time November 23, 2022 4: 11pm [facility] [address] [place] [address] Hospitalist Progress Note Signed Patient: Erin Canales MR#: [id number] : 1935 Acct:[id number] Age/Sex: 87 / F Adm Date: 3 Loc: Room: [address] [place] [address] Type: ADM IN Attending Dr: Danilo Drummond [...] oriented to place, time and person HEENT: [place] conjunctiva and NL buccal mucosa Neck: Supple, [...] Tab.Chew PO 11/19/23 08:59 Not Given DAILY [facility] Clopidogrel Bisulfate 75 mg 11/18/22 09:00 11/23/22 09:01 Clopidogrel Bisulfate 75 Mg Tablet PO 11/18/23 08:59 Not Given DAILY JOHN Docusate Sodium 100 mg 11/22/22 11:42 Docusate [...] plan. Documented By: Danilo Drummond MD 11/23/22 3515 Signed By: <Electronically signed by Danilo Drummond MD> 11/23/22 5073 [facility] Work Phone: 1(187) 484-243708-17-2023 Progress note Author W Anand [facility] November 23, 2022 11:21am Note Date/Time November 23, 2022 11 :21am [facility] [address] [place] [address] Cardiology Progress Note Signed Patient: Erin Canales MR#: [id number] : 1935 Acct:[id number] Age/Sex: 87 / F Adm Date: 3 Loc: Room: [address] [place] [address] Type: ADM IN Attending Dr: Danilo Drummond [...] signed by Pearl Michel DO> 11/23/22 [address] [facility] Work Phone: 1(757) 392-125608-17-2023 [facility] Discharge instructions Additional Instructions SNF TO [...] with nurse for incision check in the [facility] on 11/29/2022 at 2:00pm. 2. Chest x-ray to be done the day of device check at [facility] on 02/19/2023. 3. Pacemaker/ICD clinic appointment at [facility] on 02/19/2023 at 10:00am . 4. Office visit with Mickey James NP in the [facility] on 02/26/2023 at 1:00pm. DISCHARGE INSTRUCTIONS FOR CARDIAC AUGER OPERATOR PHONE NUMBER OF YOUR PHYSICIAN: [phone] PROCEDURE: Heart Cath The following instructions have [...] cold, numb, blue or white, call the needle grader immediately. 4. ACTIVITY: You are advised to [...] bottle, follow the instructions on the bottle. [facility] is not responsible for incorrect prescription information [...] ask your primary care provider to obtain [facility] records entirely to follow up on all [...] symptoms worsen or return. Discharging you from [facility] does not mean that your medical care ends here and now. You may still need additional monitoring, work up, investigation, and treatment plan to be handled from this point on by out patient providers including your primary care provider and specialists. For any medication question, please contact your retail pharmacist or your primary care provider. Thank you.[facility] Work Phone: 1(833) 971-982708-16-2023 Progress note Author Danilo Drummond [facility] November 22, 2022 8:50am Note Date/Time November 22, 2022 8: 50am [facility] [address] [place] [address] Hospitalist Progress Note Signed Patient: Erin Canales MR#: [id number] : 1935 Acct:[id number] Age/Sex: 87 / F Adm Date: 3 Loc: 3T Room: [address] [place] [address] Type: ADM IN Attending Dr: Danilo Drummond [...] oriented to place, time and person HEENT: [place] conjunctiva and NL buccal mucosa Neck: Supple, [...] 11/22/22 09:00 Lactated Ringers IV 11/22/22 23:17 .[id number] JOHN Isosorbide Mononitrate 60 mg 11/18/22 09:00 [...] signed by Danilo Drummond MD> 11/22/22 0850 [facility] Work Phone: 1(575) 998-541008-15-2023 Progress note Author Akhil Olivarez [facility] November 21, 2022 2:54pm Note Date/Time November 21, 2022 2: 54pm [facility] [address] [place] [address] Cardiology Progress Note Signed Patient: Erin Canales MR#: [id number] : 1935 Acct:[id number] Age/Sex: 87 / F Adm Date: 3 Loc: Room: [address] [place] [address] Type: ADM IN Attending Dr: Danilo Drummond [...] implantation tomorrow. Documented By: Akhil Olivarez MD [id number] Signed By: <Electronically signed by MD Akhil Olivarez> 11/21/22 [address] [facility] Work Phone: 1(308) 612-685208-15-2023 Progress note Author Danilo Drummond [facility] November 21, 2022 9:06am Note Date/Time November 21, 2022 9: 06am [facility] [address] [place] [address] Hospitalist Progress Note Signed Patient: Erin Canales MR#: [id number] : 1935 Acct:[id number] Age/Sex: 87 / F Adm Date: 3 Loc: 3T Room: [address] [place] [address] Type: ADM IN Attending Dr: Danilo Drummond [...] oriented to place, time and person HEENT: [place] conjunctiva and NL buccal mucosa Neck: Supple, [...] Tab.Er.24h PO 11/18/23 08:59 Not Given DAILY [facility] Lisinopril 10 mg 11/18/22 09:00 11/20/22 08:11 Lisinopril 10 Mg Tablet PO 11/18/23 08:59 Not Given DAILY [facility] Nitroglycerin 0.4 mg 11/17/22 21:47 Nitroglycerin 0.4 [...] Tablet PO 11/20/23 08:29 Not Given DAILY@0800 [facility] Tramadol HCl 50 mg 11/17/22 [...] signed by Danilo Drummond MD> 11/21/22 0906 [facility] Work Phone: 1(321) 233-722608-14-2023 Progress note Author Danilo Drummond [facility] November 20, 2022 1:09pm Note Date/Time November 20, 2022 1: 06pm [facility] [address] [place] [address] Progress Note Signed Patient: Erin Canales MR#: [id number] : 1935 Acct:[id number] Age/Sex: 87 / F Adm Date: 3 Loc: 3T Room: [address] [place] [address] Type: ADM IN Attending Dr: Danilo Drummond [...] be done. Documented By: Danilo Drummond MD 11/20/221304 Signed By: <Electronically signed by Danilo Drummond MD> 11/20/22 1303 [facility] Work Phone: 1([phone]) 116-199108-14-2023 Progress note Author Akhil Olivarez [facility] November 20, 2022 12:36pm Note Date/Time November 20, 2022 12 :36pm [facility] [address] [place] [address] Cardiology Progress Note Signed Patient: Erin Canales MR#: [id number] : 1935 Acct:[id number] Age/Sex: 87 / F Adm Date: 3 Loc: 3T Room: [address] [place] [address] Type: ADM IN Attending Dr: Danilo Drummond [...] % (Auto) 65.5 Lymph % (Auto) 21.8 [place] % (Auto) 9.8 Eos % (Auto) 2.0 Baso % (Auto) 0.9 Nucleat RBC Rel Count 0.1 Neut # (Auto) 3.5 Lymph # (Auto) 1.2 [place] # (Auto) 0.5 Eos # (Auto) 0.1 [...] MPV Neut % (Auto) Lymph % (Auto) [place] % (Auto) Eos % (Auto) Baso % (Auto) Nucleat RBC Rel Count Neut # (Auto) Lymph # (Auto) [place] # (Auto) Eos # (Auto) Baso # [...] as planned. Documented By: Akhil Olivarez MD 1233 Signed By: <Electronically signed by MD Akhil Olivarez> 11/20/22 1236 [facility] Work Phone: 1(752) 263-385808-14-2023 Progress note Author W Anand [facility] November 20, 2022 11:23am Note Date/Time November 20, 2022 11 :21am [facility] [address] [place] [address] Cardiology Progress Note Signed Patient: Erin Canales MR#: [id number] : 1935 Acct:[id number] Age/Sex: 87 / F Adm Date: 3 Loc: 3T Room: [address] [place] [address] Type: ADM IN Attending Dr: Danilo Drummond [...] % (Auto) 65.5 Lymph % (Auto) 21.8 [place] % (Auto) 9.8 Eos % (Auto) 2.0 Baso % (Auto) 0.9 Nucleat RBC Rel Count 0.1 Neut # (Auto) 3.5 Lymph # (Auto) 1.2 [place] # (Auto) 0.5 Eos # (Auto) 0.1 [...] MPV Neut % (Auto) Lymph % (Auto) [place] % (Auto) Eos % (Auto) Baso % (Auto) Nucleat RBC Rel Count Neut # (Auto) Lymph # (Auto) [place] # (Auto) Eos # (Auto) Baso # [...] Code(s): I25.10 - Atherosclerotic heart disease of habematolel coronary artery without angina pectoris Status: Chronic Plan Cardiac cath Sunday. Documented By: Pearl Michel DO 11/20/22 1120 Signed By: <Electronically signed by Pearl Michel DO> 11/20/22 [facility] [facility] Work Phone: [phone]) 879-164808-14-2023 Progress note Author Danilo Drummond [facility] November 20, 2022 8:07am Note Date/Time November 20, 2022 8: 07am [facility] [address] [place], [place] [id number] Hospitalist Progress Note Signed Patient: Erin Canales MR#: [id number] : 1935 Acct:[id number] Age/Sex: 87 / F Adm Date: 3 Loc: Room: [address] [place] [address] Type: ADM IN Attending Dr: Danilo Drummond [...] oriented to place, time and person HEENT: [place] conjunctiva and NL buccal mucosa Neck: Supple, [...] 11/20/22 08:15 Lactated Ringers IV 11/20/22 21:34 .[id number] JOHN Isosorbide Mononitrate 60 mg 11/18/22 09:00 [...] code Documented By: Danilo Drummond MD 11/20/22 0805 Signed By: <Electronically signed by Danilo Drummond MD> 11/20/22 0807 [facility] Work Phone: 1(708) 352-558308-13-2023 Progress note Author Ailyn Meng [facility] November 19, 2022 3:01pm Note Date/Time November 19, 2022 11 :19am [facility] [address] [place] [address] Hospitalist Progress Note Signed Patient: Erin Canales MR#: [id number] : 1935 Acct:[id number] Age/Sex: 87 / F Adm Date: 3 Loc: Room: [address] [place] [address] Type: ADM INOo Attending Dr: Ailyn Meng [...] code Documented By: Ailyn Meng MD 11/19/22 1110 Signed By: <Electronically signed by Ailyn Meng MD> 11/19/22 1507 [facility] Work Phone: 1(189) 903-464508-13-2023 Progress note Author Akhil Olivarez [facility] November 19, 2022 11:09am Note Date/Time November 19, 2022 11 :09am [facility] [address] [place] [address] Cardiology Progress Note Signed Patient: Erin Canales MR#: [id number] : 1935 Acct:[id number] Age/Sex: 87 / F Adm Date: 3 Loc: Room: [address] [place] [address] Type: ADM INOo Attending Dr: Ailyn Meng [...] Code(s): I25.10 - Atherosclerotic heart disease of habematolel coronary artery without angina pectoris Status: Chronic Plan Cardiac cath Sunday. Documented By: Akhil Olivarez MD 110 Signed By: <Electronically signed by MD Akhil Olivarez> 11/19/22 6[address] [facility] Work Phone: [phone]) 677-541508-12-2023 Consult note Author Akhil Olivarez [facility] November 18, 2022 4:11pm Note Date/Time November 18, 2022 4: 11pm [facility] [address] [place] [address] Cardiology Consult Note Signed Patient: Erin Canales MR#: [id number] : 1935 Acct:[id number] Age/Sex: 87 / F Adm Date: 3 Loc: Room: [address] [place] [address] Type: ADM INOo Attending Dr: Ailyn Meng [...] and no additional complaints, except as documented [facility] Medical History (HFpEF) heart failure with preserved [...] PO DAILY 11/26/19 [History Confirmed 11/17/22] omega 2-uoi-nfo-fish oil 1,000 mg (120 mg-180 mg) capsule [...] tablet (Vitamin C) 2,000 mg PO BID tuaqqrxioy11/16/23 [History Confirmed 11/17/22] aspirin 81 mg tablet,delayed release 81 mg PO 2XW 09/22/22 [History Confirmed 09/25/22] cartilage 40 mg-collagen II 10 mg-boron 5 mg-hyaluronate 3.3 mg tablet (eSolar) 1 tab PO DAILY 09/22/22 [History Confirmed [...] Lymph # (Auto) 1.0 1.2 (1.00-4.8) x10E3/uL [place] # (Auto) 0.5 0.5 (0.0-0.8) x10E3/uL Eos [...] Code(s): I25.10 - Atherosclerotic heart disease of habematolel coronary artery without angina pectoris (3) Sinus [...] signed by MD Akhil Olivarez> 11/18/22 1611 [facility] Work Phone: 1(592) 345-885508-12-2023 Progress note Author Ailyn Meng [facility] November 18, 2022 1:17pm Note Date/Time November 18, 2022 12 :46pm [facility] [address] [place] [address] Hospitalist Progress Note Signed Patient: Erin Canales MR#: [id number] : 1935 Acct:[id number] Age/Sex: 87 / F Adm Date: 3 Loc: Room: [address] [place] [address] Type: ADM INOo Attending Dr: Ailyn Meng [...] signed by Ailyn Meng MD> 11/18/22 1317 [facility] Work Phone: 1(230) 146-391408-12-2023 History and physical note Author Jmaie Hathaway [facility] November 17, 2022 11:08pm Note Date/Time November 17, 2022 11 :00pm [facility] [address] [place] [address] Hospitalist H&P Signed Patient: Erin Canales MR#: [id number] : 1935 Acct:[id number] Age/Sex: 87 / F Adm Date: 3 Loc: Room: [address] [place] [address] Type: ADM INOo Attending Dr: Jamie Hathaway [...] negative except as noted in the HPI [facility] Medical History (HFpEF) heart failure with preserved [...] PO DAILY 11/26/19 [History Confirmed 09/25/22] omega 8-bhn-zmy-fish oil 1,000 mg (120 mg-180 mg) capsule [...] 10 mg-boron 5 mg-hyaluronate 3.3 mg tablet (eSolar) 1 tab PO DAILY 09/22/22 [History Confirmed [...] % (Auto) 17.1 % (.) 11/17/22 18:44 [place] % (Auto) 7.8 % (.) 11/17/22 18:44 Eos % (Auto) 0.8 % (.) 11/17/22 18:44 Baso % (Auto) 0.8 % (.) 11/17/22 18:44 Nucleat RBC Rel Count 0.2 /100 WBC (0-0.5) 11/17/22 18:44 Neut # (Auto) 4.3 x10E3/uL (1.8-7.7) 11/17/22 18:44 Lymph # (Auto) 1.0 x10E3/uL (1.00-4.8) 11/17/22 18:44 [place] # (Auto) 0.5 x10E3/uL (0.0-0.8) 11/17/22 18:44 [...] 1 Documented By: Jamie Hathaway MD 11/17/22 4990 Signed By: <Electronically signed by Jamie Hathaway MD> 11/17/22 2686 [facility] Work Phone: 1(208) 400-934006-19-2023 Discharge summary Author Pearl Michel [facility] September 25, 2022 1:06pm Note Date/Time September 25, 2022 1:03 pm [facility] [address] [place] [address] Discharge Summary Signed Patient: Erin Canales MR#: [id number] : 1935 Acct:[id number] Age/Sex: 87 / F Adm Date: 3 Loc: Room: [address] [place] [address]: Pearl Michel DO Copies to: [...] doctor or pharmacist, without first calling the needle grader who implanted the stent. If you require [...] weight lifting, stair steppers, etc. until the needle grader approves these activities. Check with the needle grader on your first follow-up visit. CALL YOUR PHYSICIAN at [phone]: -If bleeding should occur from the catheter insertion site- apply pressure to the site then immediately call us. -Report any fever, redness, drainage, increased swelling, or firmness at the catheter insertion site. Some bruising or slight swelling may be present at thetime of discharge. -Should arm or leg become cold, numb, white, or blue, contact the needle grader immediately. -IF you should experience episodes of [...] is recommended. Please call Central Scheduling at [phone] to schedule your appointment.] The attending needle grader or [facility] nurse clinician should provide you with specific instructions regarding activity, diet, medications, and further follow up for you. Follow the medication instructions provided on your discharge. If the dosages and instructions on this sheet differ from the dosage and instructions on the bottle, follow the instructions on the bottle. [facility] is not responsible for incorrect prescription information [...] unit) Tablet 50 mcg PO DAILY omega 9-ejw-xpz-fish oil [Fish Oil] 1,000 mg (120 mg-180 [...] <Electronically signed by Pearl Michel DO> 09/25/22 1301 [facility] Work Phone: 1(413) 387-628606-19-2023 Procedure [facility]06-19-2023 Procedure [facility]05-19-2023 Note HNO ID: [id number] Author: Shweta Sol MD Service: ? 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 This developed [...] Past Histories independently gathered by the clinical respiratory support technician and the remaining scribed note accurately describes my personal service to the patient. 30 Minutes total visit spent face to face with patient. Greater than 50% of the time was spent for counseling and coordination of care, dis (more content not included)...[id number] Consult note Author Geeta Bourgeois [facility] October 29, 2021 11:14am Note Date/Time October 29, 2021 10:0 8am [facility] [address] [place] [address] Neurology Consult Note Signed Patient: Erin Canales MR#: [id number] : 1935 Acct:[id number] Age/Sex: 86 / F Adm Date: 2 Loc: Room: [address] [place] [address] Type : ADM INOo Attending Dr: Kale Ross MD Copies to: MD Geeta Underwood DO Pamela Sue Cramer, INSTRUCTOR BRIDGE~ HPI Consult Date: 10/29/21 [employer]: Geeta Bourgeois DO Reason for consult: weakness [...] PO DAILY 11/26/19 [History Confirmed 10/28/21] omega 2-jym-xyk-fish oil 1,000 mg (120 mg-180 mg) capsule [...] of dysmetria with good rapid alternating movements choamd-ir-sodp Tone is physiologic Patient is intact to [...] Estrada Jr., D.O.10/28/2021 7:31 PM Dictation Location: [place] [address] Head CTA 10/28/21 12:09 IMPRESSION: 1. Noncontrast [...] Estrada Jr., D.O.10/28/2021 1:35 PM Dictation Location: [place] [address] Therapy Recommendations Therapy Recommendations: OT Recommendations OT [...] MRA and CTA that showed a left HOSPITAL COORDINATOR occlusion versus hypoplasia but really there [...] stroke MRA and CTA showed the left HOSPITAL COORDINATOR occlusion versus hypoplasia but no other [...] signed by DO Geeta Bourgeois> 10/29/21 1114 [facility] Work Phone: 1(707) 639-609607-22-2022 Progress note Author Kale Ross [facility] October 28, 2021 4:56pm Note Date/Time October 28, 2021 11:5 2am [facility] [address] [place] [address] Hospitalist Progress Note Signed with Silvana Patient: Erin Canales MR#: [id number] : 1935 Acct:[id number] Age/Sex: 86 / F Adm Date: 2 Loc: Room: [address] [place] [address] Type : ADM INOo Attending Dr: Kale Ross MD Copies to: ~ ADDENDUM1 I personally saw this patient on the day of the encounter, reviewed the history,performed the turner elements of the exam and formulated the plan of care and confirmed the nurse practitioners/residents/management internship written note. Addendum Documented By: Kale Ross [...] completing dosing today. She is reportingpain left baptist to ear area that is alleviated with [...] URI 10/21 Recent UTI Enterococcus Faecalis 10/21 [place] Palsy, left sided 10/25 ?new meds this [...] 2 1152 Signed By: <Electronically signed by ERROL Madrid> 10/28/21 1616 <Electronically signed by Kale Ross MD> 10/28/21 1653 [facility] Work Phone: 1(368) 534-457907-22-2022 History and physical note Author Nguyễn Langston [facility] October 28, 2021 4:55am Note Date/Time October 28, 2021 4:55 am [facility] [address] [place] [address] Hospitalist H&P Signed Patient: Erin Canales MR#: [id number] : 1935 Acct:[id number] Age/Sex: 86 / F Adm Date: 2 Loc: ER Room: Type: [facility] Attending Dr: Copies to: MD Summer [...] negative unless noted below or in HPI [facility] Vaccinated for COVID-19?: Unknown Medical History (Updated [...] PO DAILY 11/26/19 [History Confirmed 10/25/21] omega 0-ofm-iyp-fish oil 1,000 mg (120 mg-180 mg) capsule [...] % (Auto) 13.2 % (.) 10/28/21 01:45 [place] % (Auto) 7.6 % (.) 10/28/21 01:45 Eos % (Auto) 0.0 % (.) 10/28/21 01:45 Baso % (Auto) 0.5 % (.) 10/28/21 01:45 Neut # (Auto) 4.6 x10E3/uL (1.8-7.7) 10/28/21 01:45 Lymph # (Auto) 0.8 x10E3/uL (1.00-4.8) L 10/28/21 01:45 [place] # (Auto) 0.4 x10E3/uL (0.0-0.8) 10/28/21 01:45 [...] pH 6.0 (5.0-9.0) 10/28/21 03:00 Ur Specific [place] 1.012 (1.001-1.030) 10/28/21 03:00 Urine Protein Negative [...] Lovenox Documented By: Nguyễn Lopez MD 2 3715 Signed By: <Electronically signed by Nguyễn Lopez MD> 10/28/21 5021 [facility] Work Phone: 1([phone]) 895-426507-22-2022 History and physical note Author Nguyễn Langston [facility] October 28, 2021 4:55am Note Date/Time October 28, 2021 4:55 am [facility] [address] [place] [address] Hospitalist H&P Signed Patient: Erin Canales MR#: [id number] : 1935 Acct:[id number] Age/Sex: 86 / F Adm Date: 2 Loc: ER Room: Type: [facility] Attending Dr: Copies to: MD Summer [...] PO DAILY 11/26/19 [History Confirmed 10/25/21] omega 7-lqh-mxg-fish oil 1,000 mg (120 mg-180 mg) capsule [...] % (Auto) 13.2 % (.) 10/28/21 01:45 [place] % (Auto) 7.6 % (.) 10/28/21 01:45 Eos % (Auto) 0.0 % (.) 10/28/21 01:45 Baso % (Auto) 0.5 % (.) 10/28/21 01:45 Neut # (Auto) 4.6 x10E3/uL (1.8-7.7) 10/28/21 01:45 Lymph # (Auto) 0.8 x10E3/uL (1.00-4.8) L 10/28/21 01:45 [place] # (Auto) 0.4 x10E3/uL (0.0-0.8) 10/28/21 01:45 [...] pH 6.0 (5.0-9.0) 10/28/21 03:00 Ur Specific [place] 1.012 (1.001-1.030) 10/28/21 03:00 Urine Protein Negative [...] signed by Nguyễn Lopez MD> 10/28/21 0455 [facility] Work Phone: Evaluation + Plan note No data available for this section [facility] Diagnosis Onset Date Resolution Status Chronic anticoagulation acut e Dehydration acute Dizziness acute Generalized weakness acute History of atrial fibrillation acute Hypertension acute Impaired mobility and activities of daily living acute 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 CAD (coronary artery disease) chronic [facility] Work Phone: Evaluation note* Diagnosis Onset Date Resolution Status Chronic anticoagulation acut e Dehydration acute Dizziness acute Generalized weakness acute History of atrial fibrillation acute Hypertension chronic Impaired mobility and activities of daily living acute 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 CAD (coronary artery disease) chronic [facility] Work Phone: Evaluation noteNo assessment information available [facility] Work Phone: Evaluation note* Diagnosis Onset Date Resolution Status Chest pain acute [facility] Work Phone: Evaluation note* Diagnosis Onset Date Resolution Status Angina pectoris acute Chest pain acute History of heart artery stent acute Hypertension chronic Hyponatremia acute Paroxysmal atrial fibrillation acute Sinus bradycardia acute CAD (coronary artery disease) chronic [facility] Work Phone: Evaluation note* Diagnosis Alvarado's palsy- Primary Alvarado's palsy Drooping of mouth [facility] Diagnosis Arteriosclerosis of coronary artery- Primary Paroxysmal atrial fibrillation (CMS/HCC) Atrial fibrillation penitentiary current use of anticoagulant therapy Pacemaker Cardiac pacemaker in situ Essential hypertension Unspecified essential hypertension Statin intolerance High risk medication use BMI 34.0-34.9,adult documented in this encounter [facility] Work Phone: Evaluation note* Diagnosis Post-operative state- Primary Other postprocedural status [facility] this [facility] Diagnosis Onset Date Resolution Status Foreign body in left ear non eactive [facility] Work Phone: Evaluation note* Diagnosis Post-operative state- Primary Other postprocedural status Alvarado's palsy [facility] Diagnosis Dilated cardiomyopathy (Multi)- Primary Other primary cardiomyopathies Arteriosclerosis of coronary artery BMI 37.0-37.9, adult High risk medication use Paroxysmal atrial fibrillation (Multi) Atrial fibrillation Essential hypertension Unspecified essential hypertension Mixed hyperlipidemia Mitral valve insufficiency, unspecified etiology Tricuspid valve insufficiency, unspecified etiology Pacemaker Cardiac pacemaker in situ Venous insufficiency of both lower extremities High risk medication use documented in this encounter [facility] Work Phone: History of Present illness [...] merits of diet and weight loss were reviewed.-[facility] 250 DO Work Phone: History of Present [...] appears no adjustments are necessary at this time.[facility] [employer] 250 DO Work Phone: History of Present [...] appears no adjustments are necessary at this time.[facility] Work Phone: History of Present [...] merits of diet exercise and weight loss. [facility] Travee DO Work Phone: History of Present illness [...] merits of diet and weight loss werereviewed. -[facility] Travee DO Work Phone: History of Present illness [...] medication regimen. She denies medication side effects. [facility] Travee DO Work Phone: History of Present illness [...] of diet and weight loss were advocated. [facility] 250 DO Work Phone: History of Present [...] of diet and weight loss were advocated. [facility] 600 DO Work Phone: History of Present [...] of diet and weight loss were advocated. [facility] 250 DO Work Phone: History of Present [...] weight loss and she understands our recommendation. [facility] 250 DO Work Phone: History of Present [...] weight loss and she understands our recommendation. -[facility] 250 DO Work Phone: [facility] Work Phone: Hospital Discharge instructionsAmbulatory Orders* Initiate Home Health Time Frame: 1 Day, Location: Determined By Patient * PT/OT/SP OutPatient Referral Time Frame: 1 Day, Location: Determined By Patient Additional Instructions Home Health to manage care: - Full code - PT/OT eval and treat - Routine vital signs - Medication management and education -[facility] Work Phone: [facility] Work Phone: Hospital Discharge instructions No data available for this section [facility] Additional Instructions DISCHARGE INSTRUCTIONS FOR [...] doctor or pharmacist, without first calling the needle grader who implanted the stent. If you require [...] weight lifting, stair steppers, etc. until the needle grader approves these activities. Check with the needle grader on your first follow-up visit. CALL YOUR PHYSICIAN at [phone]: -If bleeding should occur from the catheter insertion site- apply pressure to the site then immediately call us. -Report any fever, redness, drainage, increased swelling, or firmness at the catheter insertion site. Some bruising or slight swelling may be present at the time of discharge. -Should arm or leg become cold, numb, white, or blue, contact the needle grader immediately. -IF you should experience episodes of [...] is recommended. Please call Central Scheduling at [phone] to schedule your appointment.] The attending needle grader or [facility] nurse clinician should provide you with specific instructions regarding activity, diet, medications, and further follow up for you. Follow the medication instructions provided on your discharge. If the dosages and instructions on this sheet differ from the dosage and instructions on the bottle, follow the instructions on the bottle. [facility] is not responsible for incorrect prescription information provided by the patient during their visit. Do not stop your medications without consulting your health care provider. Please take the list with you to your next doctor's appointment.[facility] Work Phone: Hospital Discharge instructions Additional Instructions Do not stick anything in the ear canal especially if it could possibly hurt the ear canal May apply ointment around the ear canal for her infection healing May apply ice to the area May take Tylenol for discomfort Follow-up with family doctor Return to the ER for uncontrolled bleeding fever chills or any other concerns [facility] Work Phone: Progress note No data available for this section [facility] for referral (narrative)* Consultation (Routine) - Authorized Specialty Diagnoses / Procedures Referred By Contac t Referred To Contact Cardiology Diagnoses Arteriosclerosis of coronary artery Procedures Follow Up In Cardiology Mickey James APRN-CNP [address] [facility] 2, [address] [address] Akhil Olivarez MD [address] [facility] 2, [address] [address] Referral ID Status Reason Start Date Expiration Date V isits Requested Visits Authorized [id number] Authorized 02/26/2023 02/26/2024 1 1 * Cardiovascular (Routine) - Pending Review Specialty Diagnoses / Procedures Referred By Contac t Referred To Contact Diagnoses Paroxysmal atrial fibrillation (CMS/HCC) High risk medication use Procedures ECG 12 lead (Clinic Performed) Mickey James APRN-CNP [address] [facility] 2, [address] [address] Referral ID Status Reason Start Date Expiration Date V isits Requested Visits Authorized [id number] Pending Review 02/26/2023 02/26/2024 1 1 [facility] Work Phone: Summary Purpose Family History Unknown Family Member Name Dates Details Family [...] father Unknown Not Specified Unknown Advance Directives Advance Directive Response Recorded Date/ Time Advance Directives No March 14, 2017 2:30pm Advance Directive Response Recorded Date/ Time Advance Directives No March 14, 2017 1:30pm Chief Complaint ERIN CANALES is being seen for a 6 month follow-up of.Order sent to [facility] for testing due in AprilRUBAIRVIN CANALES is being seen for a 6 month follow-up of. ERIN CANALES is being seen for a 6 month follow-up of.Amiodarone Order sent to [facility] for testing due in [...] test done please contact our office at [phone] and press option #4 so that we may assist you in the problems. * Thank you for your compliance with this testing. * The Staff * [facility] * Please have done June 2022 * [...] lot. She did report that walking into [employer] last week was more difficult , she [...] mobility and activities of daily living Left-sided Avlarado's palsy Weakness CAD (coronary artery disease) Chief Complaint i48.0 z79.899 PT preferably;[place] palsy Chief Complaint PT preferably;[place] palsy Angina, Cardiomyopathy, HTN Chief Complaint PT preferably;[place] palsy Angina, Cardiomyopathy, HTN Angina, Cardiomyopathy, HTN [...] lt ear bleeding headache, sob sss i48.0 I48.0 Reason for Visit Foreign body in left ear Chief Complaint sss I48.0 z79.899 Reason for Referral Specialty Diagnoses / Procedures Referred By Contac t Referred To Contact Diagnoses High risk medication use Procedures Complete Pulmonary Function Test (Spirometry/DLCO/Lung Volumes) Akhil Olivarez MD [address] [place] [address] 2, [address] [address] Referral ID Status Reason Start Date Expiration Date V isits Requested Visits Authorized [id number] Pending Review 09/10/2023 09/09/2024 1 1 Specialty Diagnoses / Procedures Referred By Contac t Referred To Contact Radiology Diagnoses High risk medication use Procedures XR chest 2 views Akhil Olivarez MD [address] [place] [address], [place] [id number] Referral ID Status Reason Start Date Expiration Date Visits Requested Visits Authorized [id number] Pending Review Perform Procedure 09/10/2023 09/09/2024 1 1 Specialty Diagnoses / Procedures Referred By Contac t Referred To Contact Diagnoses Paroxysmal atrial fibrillation (Multi) Procedures ECG 12 Lead Akhil Olivarez MD [address] [place] [address] 2, [address] [address] Referral ID Status Reason Start Date Expiration Date V isits Requested Visits Authorized [id number] Authorized 09/10/2023 09/09/2024 1 1 Specialty Diagnoses / Procedures Referred By Contac t Referred To Contact Cardiology Diagnoses Arteriosclerosis of coronary artery Procedures Follow Up In Cardiology Akhil Olivarez MD [address] [place] [address] 2, [address] [address] Bg Nation MD [address] [place] [address] 2, [address] [address] Referral ID Status Reason Start Date Expiration Date V isits Requested Visits Authorized [id number] Authorized 09/10/2023 09/09/2024 1 1 Additional Source Comments INFORMATION SOURCE (unrecogn ized section and content) DATE CREATED AUTHOR 10/03/2017 [facility] DATE CREATED AUTHOR AUTHOR'S ORGANIZ ATION 08/04/2022 [employer] DATE CREATED AUTHOR AUTHOR'S ORGANIZ ATION 09/18/2022 [facility] DATE CREATED AUTHOR AUTHOR'S ORGANIZ ATION 09/18/2022 [facility] DATE CREATED AUTHOR AUTHOR'S ORGANIZ ATION 01/21/2023 [facility] DATE CREATED AUTHOR AUTHOR'S ORGANIZ ATION 04/06/2023 [facility] DATE CREATED AUTHOR AUTHOR'S ORGANIZ ATION 04/26/2023 [facility] DATE CREATED AUTHOR AUTHOR'S ORGANIZ ATION 07/27/2023 [facility] DATE CREATED AUTHOR AUTHOR'S ORGANIZ ATION 08/27/2023 [facility] DATE CREATED AUTHOR AUTHOR'S ORGANIZ ATION 09/11/2023 [facility] DATE CREATED AUTHOR AUTHOR'S ORGANIZ ATION 09/19/2023 [facility] DATE CREATED AUTHOR AUTHOR'S ORGANIZ ATION 09/22/2023 [facility] Reason for Visit (unrecogniz ed section and content) Reason Comments Follow Up Reason Comments Follow-up S/p pm insert Specialty Diagnoses / Procedures Referred By Contac t Referred To Contact Diagnoses Paroxysmal atrial fibrillation (CMS/HCC) High risk medication use Procedures ECG 12 lead (Clinic Performed) Mickey James, INSURANCE COUNSEL-INSTRUCTOR BRIDGE [address] [facility] 2, [address] [place] [address] Referral ID Status Reason Start Date Expiration Date V isits Requested Visits Authorized [id number] Pending Review 02/26/2023 02/26/2024 1 1 Reason Comments General Questions Reason Comments Post Op Left eye wts Reason Comments Post Op Reason Comments Follow-up 6m fu about echo ord ered by Dr. Chaudhary Specialty Diagnoses / Procedures Referred By Contac t Referred To Contact Cardiology Diagnoses Arteriosclerosis of coronary artery Procedures Follow Up In Cardiology Mickey James, INSURANCE COUNSEL-INSTRUCTOR BRIDGE [address] [facility] 2, [address] [place] [address] Akhil Olivarez MD [address] [facility] 2, [address] [place] [address] Referral ID Status Reason Start Date Expiration Date V isits Requested Visits Authorized [id number] Authorized 02/26/2023 02/26/2024 1 1 Care Teams (unrecognized sec tion and content) Team Status: Inactive Member Role Status Dates Summer Tidwell [employer] ARCHITECT-C Primary Care Provider Active Razia Munoz MD RES Active Guillermo Sanders DO Emergency Provider Active Team Status: Active Member Role Status Dates Summer Tidwell [employer] EXCHANGE ARCHITECT-C Primary Care Provider Active Stephanie Locke Jr, MD Emergency Provider Active Nguyễn Lopez MD Admit Provider, Dianne goldstein Active Team Status: Inactive Member Role Status Dates Summer Tidwell [employer] EXCHANGE ARCHITECT-C Primary Care Provider Active Pramod Bess DO Emergency Provider Active Team Status: Active Member Role Status Dates Summer Tidwell [employer] EXCHANGE ARCHITECT-C Primary Care Provider Active Team Status: Inactive Member Role Status Dates Summer Tidwell [employer] EXCHANGE ARCHITECT-C Primary Care Provider Active Stephanie Locke Jr, MD Emergency Provider Active Nguyễn Lopez MD Admit Provider Active Kale Ross MD Attending Provider Active Matt Servin DO Other Provider Active Team Status: Inactive Member Role Status Dates Summer Tidwell [employer] EXCHANGE ARCHITECT-C Primary Care Provider Active Akhil Olivarez MD Attending Provider Active Team Status: Inactive Member Role Status Dates Summre Tidwell [employer] EXCH[employer] ARCHITECT-C Primary Care Provider Active Doug Montana MD Attending Provider Active Team Status: Inactive Member Role Status Dates Summer Tidwell [employer] EXCHANGE ARCHITECT-C Primary Care Provider Active Myron Villarreal DO Emergency Provider Active Team Status: Active Member Role Status Dates Summer Tidwell [employer] EXCHANGE ARCHITECT-C Primary Care Provider Active Elizabeth Zimmerman APRN [employer] ARCHITECT-C Attending Provider A ctive Team Status: Inactive Member Role Status Dates Summer Tidwell , [employer] EXCHANGE ARCHITECT-C Primary Care Provider Active Elizabeth Zimmerman APRN [employer] ARCHITECT-C Attending Provider A ctive Team Status: Active Member Role Status Dates Los Chaudhary MD Primary Care Provider Active Team Status: Inactive Member Role Status Dates Pearl Michel , DO Attending Provider Active Los Chaudhary MD [...] Active Akhil Olivarez MD Attending Provider Active Aboriginal Education Worker Coordinator Relationship Specialty Start Date End Date Los Chaudhary MD [address] [place] [address] PCP - General Family Medicine 12/05/22 Aboriginal Education Worker Coordinator Relationship Specialty Start Date End Date Los Chaudhary MD [address] [place] [address] PCP - General 07/05/22 Aboriginal Education Worker Coordinator Relationship Specialty Start Date End Date Los Chaudhary MD [address] [place] [address] PCP - General Family Medicine 12/05/22 Aboriginal Education Worker Coordinator Relationship Specialty Start Date End Date Los Chaudhary MD [address] [place] [address] PCP - General Family Medicine 12/05/22 Team [...] July 12, 2023 End: July 12, 2023 HARPREET Rico Attending Provider Active S tart: July 12, 2023 End: July 12, 2023 Team Status: Inactive Member Role Status Dates Los Chaudhary MD Primary Care Provider Active Start: July 13, 2023 End: July 13, 2023 Daily Hart [facility] Emergency Provider Active Start: July 13, 2023 End: July 13, 2023 Aboriginal Education Worker Coordinator Relationship Specialty Start Date End Date Los Chaudhary MD [facility] [place] [address] PCP - General Family Medicine 12/05/22 Team Status: Inactive Member Role Status Lisbeth [...] August 17, 2023 End: August 17, 2023 Aboriginal Education Worker Coordinator Relationship Specialty Start Date End Date Los Chaudhary MD [address] [place] [address] PCP - General 07/05/22 Team Status: Inactive Member Role Status Dates Los Chaudhary MD Primary Care Provider Active Start: September 10, 2023 End: September 10, 2023 Akhil Olivarez MD Attending Provider Active Start: September 10, 2023 End: September 10, 2023 Team Status: Inactive Member Role Status Dates Los Chaudhary MD Primary Care Provider Active Start: September 21, 2023 End: September 21, 2023 Akhil Olivarez MD Attending Provider, Referring Provider Active Start: September 21, 2023 End: September 21, 2023 Team Status: Inactive Member Role Status Dates Los Chaudhary MD Primary Care Provider Active Start: February 19, 2023 End: February 19, 2023 Akhil Olivarez MD Attending Provider Active Start: February 19, 2023 End: February 19, 2023 Goals (unrecognized section and content) Goals [...] or prosecute any alcohol or drug abuse patient.[facility] the event this information is protected by the Federal Confidentiality of Alcohol and Drug Abuse Patient Records regulations: The Federal rules restrict any use of the information to criminally investigate or prosecute any alcohol or drug abuse patient.[facility] the event this information is protected by the Federal Confidentiality of Alcohol and Drug Abuse Patient Records regulations: The Federal rules restrict any use of the information to criminally investigate or prosecute any alcohol or drug abuse patient.[facility] the event this information is protected by the Federal Confidentiality of Alcohol and Drug Abuse Patient Records regulations: The Federal rules restrict any use of the information to criminally investigate or prosecute any alcohol or drug abuse patient.[facility] FOR RECORDS PERTAINING TO PATIENTS WHO [...] BE BASED ON THE PRIMARY CLINICAL RECORDS. [facility]. provides no warranty or guarantee of the accuracy or completeness of information in this document.
--- NOTE | 2023-09-27 17:37 | P.HP_ITS ---
HPI H&P: HPI History of Present Illness Chief complaint: Foot Pain inability to ambulate Narrative: Patient presented to the emergency room with increasing left foot pain. Unable to ambulate at home. She stated in her chair most of the day because she could not get to the bathroom. Evaluation in the ER was unremarkable. When I saw patient up on the medical surgical floor she had moderate discomfort secondary to her left foot pain. No other complaints. No chest pain, no shortness of breath no lightheadedness no abdominal complaints Opioid HPI Opioid Management Most Recent Pain and Opioid Data: Last Pain Scale 5 09/27/23 21:09 Last Pain Assessment 09/28/23 06:26 Last ORT Total Score 0 09/27/23 17:18 Last ORT Risk Category Low Risk 09/27/23 17:18 Review of Systems ROS Status of ROS 10 or more systems reviewed and unremark able except as noted in history and below [facility] Medical History (Updated 09/27/23 @ 17:11 by Kia James) Pacemaker ?Z95.0 - Presence of cardiac pacemaker (ICD-10) Leg fracture, left ?S82.92XA - Unspecified fracture of left lower leg, initial encounter for closed fracture (ICD-10) 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) Angina pectoris ?I20.9 - Angina pectoris, unspecified (ICD-10) Obesity ?E66.9 - Obesity, unspecified (ICD-10) Cardiomyopathy ?I42.9 - Cardiomyopathy, unspecified (ICD-10) Mitral regurgitation ?I34.0 - Nonrheumatic mitral (valve) insufficiency (ICD-10) Hyperlipidemia ?E78.5 - Hyperlipidemia, unspecified (ICD-10) Hypertension ?I10 - Essential (primary) hypertension (ICD-10) Coronary artery disease ?I25.10 - Atherosclerotic heart disease of [place] coronary artery without angina pectoris (ICD-10) Surgical History (Updated 11/06/22 @ 13:07 by Jamie Locke RN) History of hip surgery ?Z98.890 - Other specified postprocedural states (ICD-10) Stented coronary artery ?Z95.5 - Presence of coronary angioplasty implant and graft (ICD-10) Family History (Updated 09/27/23 @ 17:12 by Kia James) Father Family history of CHF (congestive heart failure) Mother Family history of CHF (congestive heart failure) Son Family history of diabetes mellitus Daughter Family history of diabetes mellitus Social History (Updated 09/27/23 @ 17:15 by Kia James) Within the past year, how often did you have a drink containing alcohol: never Score interpretation: A score less than 3 is consistent with normal alcohol consumption. Smoking status: Never smoker Non-prescribed substance use: denies use Previous occupational history: retired Highest level of school completed/degree received: high school graduate Are you now , , , , never or living with a partner: In a typical week, how many times do you talk on the telephone with family, friends, or neighbors: 3 or more times per week How often do you get together with friends or relatives: 3 or more times per week How often do you attend gnosticist or islam services: 4 or more times per year Do you belong to any clubs or organizations such as gnosticist groups unions, [employer] or athletic groups, or school groups: no Total score: 2 Score interpretation: A score of greater than or equal to 2 indicates the lowest level of social isolation. Little interest or pleasure in doing things: not at all Feeling down, depressed, or hopeless: not at all Feel stressed/tense/nervous/anxious/difficulty sleeping: not at all Gender Identity: female Meds Home Medications and Allergies Home Medications ?Medication ?Instructions ?Recorded ?Confirmed ?Type amiodarone 200 mg tablet 100 mg PO BID 11/06/22 09/27/23 History aspirin 81 mg tablet,delayed 81 mg PO .twice a week 11/06/22 09/27/23 History release (Adult Low Dose Aspirin) calcium carbonate 600 mg-vitamin 1 tab PO BID 11/06/22 09/27/23 History D3 20 mcg (800 unit) chewable tablet (Caltrate 600 plus D) cholecalciferol (vitamin D3) 50 50 mcg PO DAILY 11/06/22 09/27/23 History mcg (2,000 unit) capsule (Vitamin D3) clopidogrel 75 mg tablet 75 mg PO DAILY 11/06/22 09/27/23 History isosorbide mononitrate 60 mg 60 mg PO DAILY 11/06/22 09/27/23 History tablet,extended release 24 hr lisinopril 10 mg tablet 10 mg PO DAILY 11/06/22 09/27/23 History nitroglycerin 0.4 mg sublingual 0.4 mg sublingual Q5M PRN chest 11/06/22 09/27/23 History tablet pain vitamin B complex (B 1 tab PO DAILY 11/06/22 09/27/23 History Complex-Vitamin B12 tablet) warfarin 3 mg tablet 3 mg PO .4xw 11/06/22 09/27/23 History lactulose 10 gram/15 mL oral 45 ml PO BID PRN costipation 07/20/23 09/27/23 History solution tramadol 50 mg tablet 50 mg PO Q6H PRN pain 07/20/23 09/27/23 History furosemide 40 mg tablet 40 mg PO DAILY 08/30/23 09/27/23 History levothyroxine 75 mcg tablet 75 mcg PO .qd 08/30/23 09/27/23 History spironolactone 25 mg tablet 25 mg PO .qd 08/30/23 09/27/23 History torsemide 10 mg tablet 10 mg PO .qd 08/30/23 09/27/23 History warfarin 6 mg tablet 6 mg PO .3 x week 08/30/23 09/27/23 History Allergies Allergy/AdvReac Type Severity Reaction Status Date / Time ibuprofen Allergy Intermediate Hives Verified 09/27/23 14:48 [id number]-SLP-ChY Reductase AdvReac Mild myalgia Verified 09/27/23 14:48 Inhibitor betablockers AdvReac bradycardia Uncoded 09/27/23 14:48 Exam Constitutional Vital Signs, click to edit/add: Last Vital Signs Temp 98.5 F 09/27/23 14:48 Pulse 97 H 09/27/23 14:48 Resp 18 09/27/23 14:48 BP 134/81 09/27/23 14:48 Pulse Ox 98 09/27/23 14:48 O2 Del Method Room Air 09/27/23 14:48 Documenting provider has reviewed patient's vital signs: yes Common normals: apparent distress (Moderate painful distress) Chest Common normals: inspection of chest normal Respiratory Common normals: normal respiratory effort Cardio Common normals: regular rate; irregular rhythm Rhythm: abnormal rhythm GI Common normals: negative for Normal to inspection, nondistended, normoactive bowel sounds present (Morbidly obese) Extremity Common normals: abnormal to inspection (Left ankle with moderate swelling, mild calor, no rubor, positive dolor) Results Labs Labs: Short CBC 09/27/23 Range/Units 15:07 WBC 7.8 (4.0-11.0) 10^3/uL Hgb 11.7 L (12.0-16.0) g/dL Hct 38.6 (36.0-48.0) % Plt Count 174 (150-450) 10^3/uL BMP 09/27/23 15:07 Sodium 138 Potassium 4.6 Chloride 104 Carbon Dioxide 28.0 BUN 50.0 H Creatinine 1.53 H Glucose 130 H Calcium 9.2 Assessment and Plan Assessment and Plan (1) Foot pain, left: (2) Inability to walk: (3) Facial paralysis/Gordon palsy: (4) Obesity: (5) Hypertension: Plan Acute onset of left foot pain, no trauma, unable to ambulate secondary to pain- poor p.o. intake resulting in dehydration with acute kidney injury.(Baseline creatinine of 1.11-progressed to 1.53 creatinine, thus 137.8% above baseline) will check uric acid, inflammation markers. Start patient on steroids for possible just ankle arthritis. Reevaluate in a.m. Dehydration resulting in acute kidney injury as outlined above-patient with better p.o. intake here, will hold off on IV fluids currently continue to monitor. Patient was not taking any oral intake due to unable to get to liquids. Deteriorated worse secondary to the heat Coumadin toxicity-this is likely secondary to the dehydration-will monitor daily. Hold Coumadin today. Iron deficiency anemia-monitor daily Admission status: Awaiting testing, pain control overnight, place patient in observation bed. More than 50% chance to be discharged in a.m. on 09/27
[2023-09-27 17:49] LABS: C Reactive Protein 1.06 mg/dL (<=0.50)
[2023-09-27 17:52] LABS: Magnesium 2.1 mg/dL (1.8-2.4); Uric Acid 9.4 mg/dL (2.6-6.0)
[2023-09-27 17:57] LABS: Erythrocyte Sedimentation Rate 41 mm/hr (<=30)
[2023-09-27 18:06] LABS: INR 4.65; Prothrombin Time 42.3 sec (9.0-11.6)
[2023-09-27] MEDS: AMIODARONE HCL 200 MG TABLET 100 MG PO (21:09)
[2023-09-27] MEDS: CALCIUM CARBONATE 600 MG/VITAMIN D3 400 IU TABLET 1 TAB PO (21:09)
[2023-09-27] MEDS: METHYLPREDNISOLONE SOD SUCC PF 125 MG/2 ML VIAL 60 MG IVP (21:12)
[2023-09-28] VITALS (9 sets, daily range): BP systolic 94–124; BP diastolic 61–85; PULSE 55–106; TEMP 36.2–36.6; O2SAT 93–96
[2023-09-28] MEDS: METHYLPREDNISOLONE SOD SUCC PF 125 MG/2 ML VIAL 60 MG IVP ×2 (01:18→07:37)
[2023-09-28 05:31] LABS: Hematocrit 37.4 % (36.0-48.0); Hemoglobin 11.7 g/dL (12.0-16.0); Mean Corpuscular HGB Conc 31.3 g/dL (29.9-35.2); Mean Corpuscular Hemoglobin 30.9 pg (26.7-34.0); Mean Corpuscular Volume 98.7 fL (81.0-99.0); Mean Platelet Volume 10.6 fL (9.5-13.5); Platelet Count 182 10^3/uL (150-450); Red Blood Count 3.79 10^6/uL (4.20-5.40); White Blood Count 4.7 10^3/uL (4.0-11.0)
[2023-09-28 05:52] LABS: Alanine Aminotransferase 18 U/L (14-59); Albumin Globulin Ratio 0.8; Albumin Level 3.1 g/dL (3.4-5.0); Alkaline Phosphatase 84 U/L (46-116); Anion Gap 12.5; Aspartate Amino Transferase 19 U/L (15-37); Bilirubin Total 0.8 mg/dL (0.2-1.0); Calcium 9.1 mg/dL (8.5-10.1); Carbon Dioxide 26.1 mmol/L (21.0-32.0); Chloride 104 mmol/L (98-107); Estimated GFR (African America 38 (>=60); Estimated GFR (Non-African Ame 31 (>=60); Globulin 3.7 g/dL; Glucose 177 mg/dL (74-106); Potassium 4.6 mmol/L (3.5-5.1); Sodium 138 mmol/L (136-145); Total Protein 6.8 g/dL (6.4-8.2)
[2023-09-28 05:53] LABS: INR 3.66; Prothrombin Time 34.1 sec (9.0-11.6)
[2023-09-28 05:58] LABS: Atypical Lymphocytes Abs Man 0.09; Hypersegmented Neutrophils 1+; Hypochromasia 2+; Lymphocytes Absolute Manual 0.18 10^3/uL (1.20-3.80); Segmented Neut Absolute Manual 4.41 10^3/uL (1.4-6.5)
[2023-09-28] MEDS: LEVOTHYROXINE SODIUM 75 MCG TABLET PO (06:29)
--- NOTE | 2023-09-28 07:25 | P.PN_ITS ---
Progress Note: Subjective Subjective Interval history: Patient does feel improved this morning. Still has some pain in the left ankle but improved from previous day. Exam Constitutional Vital Signs, click to edit/add: Last Vital Signs Temp 97.8 F 09/28/23 04:03 Pulse 83 09/28/23 05:54 Resp 18 09/28/23 04:03 BP 94/61 09/28/23 04:03 Pulse Ox 93 L 09/28/23 04:30 O2 Del Method Room Air 09/28/23 04:30 Documenting provider has reviewed patient's vital signs: yes Common normals: apparent distress (Moderate painful distress) Chest Common normals: inspection of chest normal Respiratory Common normals: normal respiratory effort Cardio Common normals: regular rate; irregular rhythm Rhythm: abnormal rhythm GI Common normals: negative for Normal to inspection, nondistended, normoactive bowel sounds present (Morbidly obese) Extremity Common normals: abnormal to inspection (Minimal swelling this morning, much less tender) Progress Note: Objective Labs Labs: Short CBC 09/27/23 09/28/23 Range/Units 15:07 05:11 WBC 7.8 4.7 (4.0-11.0) 10^3/uL Hgb 11.7 L 11.7 L (12.0-16.0) g/dL Hct 38.6 37.4 (36.0-48.0) % Plt Count 174 182 (150-450) 10^3/uL BMP 09/27/23 09/28/23 15:07 05:11 Sodium 138 138 Potassium 4.6 4.6 Chloride 104 104 Carbon Dioxide 28.0 26.1 BUN 50.0 H 48.0 H Creatinine 1.53 H 1.55 H Glucose 130 H 177 H Calcium 9.2 9.1 Liver Function 09/28/23 Range/Units 05:11 Total Bilirubin 0.8 (0.2-1.0) mg/dL AST 19 (15-37) U/L ALT 18 (14-59) U/L Alkaline Phosphatase 84 (46-116) U/L Albumin 3.1 L (3.4-5.0) g/dL Progress Note: A&P Assessment and Plan (1) Foot pain, left: (2) Inability to walk: (3) Facial paralysis/[place] palsy: (4) Obesity: (5) Hypertension: Plan Admission findings: Acute onset of left foot pain, no trauma, unable to ambulate secondary to pain-poor p.o. intake resulting in dehydration with acute kidney injury.(Baseline creatinine of 1.11-progressed to 1.53 creatinine, thus 137.8% above baseline)-uric acid is positive, inflammation markers positive, this appears to be an acute exacerbation of gout. She is improved with steroid. Will give 1 dose of colchicine this morning. Have physical therapy ambulate the patient. If she is ambulating safely she will be discharged home in improving condition. Medication status. Follow-up with me in the office next week. Dehydration resulting in acute kidney injury as outlined above-patient with better p.o. intake here, will hold off on IV fluids currently continue to monitor. Continue to hold off on fluids and her diuretics, good p.o. intake this morning. Coumadin toxicity-this is likely secondary to the dehydration-better today. Continue to monitor Iron deficiency anemia-stable Mild protein calorie malnutrition-this is based on NIH criteria for albumin- monitor as an outpatient, encouraged protein intake with likely supplementation with Ensure as an outpatient Admission status: With this appearing to be gout, maintain observation status, likely discharge to home later today.
[2023-09-28] MEDS: LISINOPRIL 10 MG TABLET PO (09:17)
[2023-09-28] MEDS: SPIRONOLACTONE 25 MG TABLET PO (09:17)
[2023-09-28] MEDS: ISOSORBIDE MONONITRATE 60 MG TAB.ER.24H PO (09:17)
[2023-09-28] MEDS: CLOPIDOGREL BISULFATE 75 MG TABLET PO (09:17)
[2023-09-28] MEDS: AMIODARONE HCL 200 MG TABLET 100 MG PO (09:17)
[2023-09-28] MEDS: CHOLECALCIFEROL (VITAMIN D3) 25 MCG/1,000 UNITS TABLET 50 MCG PO (09:17)
[2023-09-28] MEDS: FUROSEMIDE 40 MG TABLET PO (09:17)
[2023-09-28] MEDS: CALCIUM CARBONATE 600 MG/VITAMIN D3 400 IU TABLET 1 TAB PO (09:18)
[2023-09-28] MEDS: FOLIC ACID/VIT B6/VIT B12 TABLET 1 TAB PO (09:24)
[2023-09-28] MEDS: ASPIRIN 81 MG TABLET.DR PO (09:24)
[2023-09-28] MEDS: TORSEMIDE 20 MG TABLET 10 MG PO (09:24)
--- NOTE | 2023-09-28 09:25 | SWNOTE1 ---
SW met with pt to discuss dc needs. Pt lives at home by herself. Her daughter lives in [place], but works. Pt speaks of 2 close friends that help her as needed and her daughter. Pt mainly uses a walker at home, but has a wheelchair as well. Pt spoke of her gout and her foot hurting yesterday, but stated it is feeling much better today. SW asked if she walked with the nurse to the bathroom. She stated she walked to the bedside commode with nurse. Pt is waiting for Physical Therapy to come and eval to make sure she is safe at home. SW asked if she has ever had HH or would be interested. Pt stated she does not want it. She stated she does all the work and the person just sits there and tells her exercises to do. At this time unsure of pt's discharged needs. SW will review therapy notes once completed. Medicare Outpatient Observation Notice reviewed and discussed with patient. Pt. verbalized understanding and signed the form. Original given to patient and copy placed in patient?s chart.
[2023-09-28] MEDS: COLCHICINE 0.6 MG TABLET 0.599999999999999978 MG PO (09:27)
[2023-09-28] MEDS: TRAMADOL HCL 50 MG TABLET PO (09:27)
--- NOTE | 2023-09-28 12:02 | SWNOTE1 ---
SW reviewed therapy notes and pt does have any skilled needs for at home.
--- NOTE | 2023-10-02 15:15 | CM.DCFOLLOWU ---
Person spoke with: Erin How are you feeling? pretty good How is your pain? no pain Did you understand your discharge instructions? yes Do you have any questions about your discharge instructions? no Were you given any prescriptions at discharge? yes Were you able to get your prescriptions filled? yes Do you understand how to take your medications as ordered? yes Do you have any questions about your follow up appointment and do you plan to keep your follow up appointment? not needed. Is there anything else that you would like to discuss? no Questions/Comments/Concerns/Other:
== END 2023-09-28 13:20 | disposition home or self-care (01) ==
LOC: ER 16:13 → MS 17:12
PROVIDERS: Admitting Provider Family Medicine; Emergency Provider Emergency Medicine; PCP Family Medicine; Visit Provider Family Medicine
DX: M10.9 Gout, unspecified (principal); E86.0 Dehydration; N17.9 Acute kidney failure, unspecified; D50.9 Iron deficiency anemia, unspecified; E44.1 Mild protein-calorie malnutrition; R26.2 Difficulty in walking, not elsewhere classified; M79.672 Pain in left foot; G51.0 Bell's palsy; E66.9 Obesity, unspecified; I10 Essential (primary) hypertension; Z68.34 Body mass index [BMI] 34.0-34.9, adult; T45.515A Adverse effect of anticoagulants, initial encounter
CPT/HCPCS: 36415; 73630; 80048; 80053; 81001; 83735; 84550; 85007; 85025; 85027; 85610; 85652; 86140; 87086; 94761; 96374; 96376; 97162; 97165; 99285; G0378; J2919

== ENCOUNTER 2023-10-01 10:46 | Outpatient (OUT) | payer OTHER, SELFPAY ==
--- NOTE | 2023-10-01 10:49 | VEIN_ITS ---
Patient Name: MAGGIE CANALES MR#: [id number] : 1935 Exam Date: 10/01/2023 Ordering Doctor: DR SHILO RINALDI M.D. RADIOLOGY REPORT PROCEDURE: FACILITY EST LMTD VEIN CENTER - OFFICE VISIT FOLLOW UP COMPARISON: None. PROGRESS NOTES: The patient reports no significant problems following intravenous laser ablation of the right great saphenous vein. Patient was able to wear her compression wrap for approximately 2 days continuously in the decreased to intermittent use due to discomfort. Physical exam demonstrates a large area of bruising along the anterior lateral knee likely related to a fall. This is not related to the procedure. The incision is healed. Thrombosed right great saphenous vein cannot be palpated due to patient body habitus. No erythema or warmth to suggest cellulitis or thrombophlebitis. No active ulceration Review of the ultrasound performed the same day demonstrates occlusive thrombus extending throughout the treated right great saphenous vein with heat induced thrombus 1.3 cm from the saphenofemoral junction. No deep vein thrombus. The patient expressed a desire to proceed with treatment of incompetent left great saphenous vein with intravenous laser ablation. VEIN/ Facility EST LMTD IMPRESSION: 1. Successful ablation of the right great saphenous vein. 2. Persistent incompetent left great saphenous vein. PLAN: Intravenous laser ablation left great saphenous vein Nurse notes, history and physical were reviewed and confirmed, see attached forms. The nurse was present throughout the physical exam and consultation Dictated by: Shilo Rinaldi MD on 10/01/2023 at 11:39 Approved by: Shilo Rinaldi MD on 10/01/2023 at 11:41
--- NOTE | 2023-10-01 10:49 | VEIN_ITS ---
Patient Name: MAGGIE CANALES MR#: [id number] : 1935 Exam Date: 10/01/2023 Ordering Doctor: DR SHILO RINALDI M.D. RADIOLOGY REPORT PROCEDURE: VC EXT VENOUS RT LMTD COMPARISON: None. INDICATIONS: I80.01 Phlebitis of superficial veins of rt lower extremity TECHNIQUE: Lower extremity ortega scale and Duplex Doppler evaluation of the deep venous system from the inguinal ligament through the calf veins. FINDINGS: REGION: Right lower extremity. THROMBI: Negative for DVT. Heat induced thrombus in right GSV 1.3 cm from SFJ and extends to distal thigh. COMPRESSIBILITY: Non-compressible segments corresponding to thrombus FLOW: Areas of no flow corresponding to thrombus CONCLUSION: Post ablation occlusion of the right great saphenous vein with heat induced thrombus 1.3 cm from the saphenofemoral junction Dictated by: Shilo Rinaldi MD on 10/01/2023 at 11:38 Approved by: Shilo Rinaldi MD on 10/01/2023 at 11:39
== END 2023-10-01 10:47 | disposition home or self-care (01) ==
LOC: VC 10:46
PROVIDERS: PCP Family Medicine; Visit Provider Radiology Diagnostic Radiology
DX: I80.01 Phlebitis and thrombophlebitis of superficial vessels of right lower extremity (principal)
CPT/HCPCS: 93971; G0463

== ENCOUNTER 2023-10-08 00:20 | Outpatient (RCR) | payer OTHER, SELFPAY | END 2023-11-07 23:59 | disposition home or self-care (01) | LOC: MM 00:20 | PROVIDERS: PCP Family Medicine; Visit Provider Internal Medicine | DX: Z51.81 Encounter for therapeutic drug level monitoring (principal); Z79.01 Long term (current) use of anticoagulants; I48.0 Paroxysmal atrial fibrillation ==